=== PATIENT | male | born 1985 | race Two or more races ===

== ENCOUNTER → 2020-01-04 13:58 | Outpatient (BNVA) | payer MEDICARE, MEDICAID, SELFPAY | PROVIDERS: PCP Internal Medicine Geriatric Medicine; Referring Provider Internal Medicine Geriatric Medicine; Visit Provider Nurse Practitioner Gerontology | DX: E10.65 Type 1 diabetes mellitus with hyperglycemia (principal); E10.22 Type 1 diabetes mellitus with diabetic chronic kidney disease; I12.9 Hypertensive chronic kidney disease with stage 1 through stage 4 chronic kidney disease, or unspecified chronic kidney disease; N18.30 Chronic kidney disease, stage 3 unspecified; E10.42 Type 1 diabetes mellitus with diabetic polyneuropathy; E78.5 Hyperlipidemia, unspecified; Z96.41 Presence of insulin pump (external) (internal) | CPT/HCPCS: 99212 ==

== ENCOUNTER → 2020-02-07 13:44 | Outpatient (BNVA) | payer MEDICARE, MEDICAID, SELFPAY | PROVIDERS: PCP Internal Medicine Geriatric Medicine; Referring Provider Internal Medicine Geriatric Medicine; Visit Provider Physician Assistant | DX: Z76.89 Persons encountering health services in other specified circumstances (principal) ==

== ENCOUNTER 2020-02-07 14:54 | Outpatient (REF) | payer MEDICARE, MEDICAID, SELFPAY | END 2020-02-07 14:55 | disposition home or self-care (01) | LOC: HO.LAB 14:54 | PROVIDERS: Visit Provider Internal Medicine | DX: Z20.828 Contact with and (suspected) exposure to other viral communicable diseases (principal) | CPT/HCPCS: C9803; Q3014; U0003 ==

== ENCOUNTER → 2020-02-27 13:10 | Outpatient (BNVA) | payer MEDICARE, MEDICAID, SELFPAY | PROVIDERS: PCP Internal Medicine Geriatric Medicine; Visit Provider Physician Assistant | DX: Z13.89 Encounter for screening for other disorder (principal) | CPT/HCPCS: Q3014 ==

== ENCOUNTER 2020-03-07 11:33 | Inpatient (IN) | payer MEDICARE, MEDICAID, SELFPAY ==
[2020-03-07] VITALS (9 sets, daily range): BP systolic 111–203; BP diastolic 78–119; PULSE 105–129; RESP 12–18; TEMP 36.3–36.9; O2SAT 95–100; BMI 24.3
--- NOTE | 2020-03-07 | ECG_ITS ---
Test Reason : REPEAT Blood Pressure : / mmHG Vent. Rate : 128 BPM Atrial Rate : 128 BPM P-R Int : 138 ms QRS Dur : 078 ms QT Int : 314 ms P-R-T Axes : 064 084 040 degrees QTc Int : 458 ms Sinus tachycardia Otherwise normal ECG When compared with ECG of 26-AUG-2019 12:31, No significant change was found Referred By: Neal Godoy Electronically Signed By:LESLIE GEIGER MD
--- NOTE | 2020-03-07 | ECG_ITS ---
Test Reason : NASUEA Blood Pressure : / mmHG Vent. Rate : 119 BPM Atrial Rate : 119 BPM P-R Int : 128 ms QRS Dur : 076 ms QT Int : 330 ms P-R-T Axes : 077 090 051 degrees QTc Int : 464 ms Sinus tachycardia Rightward axis Borderline ECG When compared to the previous EKG of No significant changes seen Referred By: Neal Godoy Electronically Signed By:LESLIE GEIGER MD
[2020-03-07 11:58] LABS: MANUAL DIFF FLAG NO
[2020-03-07 12:02] LABS: Basophils Percent Auto 0.2 % (0-2); Eosinophils Absolute Auto 0.1 X10*3/uL (0.0-0.4); Eosinophils Percent Auto 0.7 % (0-4); Hematocrit 44.1 % (42-52); Hemoglobin 15.2 g/dl (14.0-18.0); Imm Gran Abs Auto 0.04 X10*3/uL (0.00-0.03); Imm Gran Pct Auto 0.3 % (0.0-0.4); Lymphocytes Absolute Auto 2.6 X10*3/uL (1.2-4.9); Lymphocytes Percent Auto 18.5 % (20-40); Mean Corpuscular HGB Conc 34.5 g/dl (31.0-36.0); Mean Corpuscular Hemoglobin 30.2 pg (27.0-33.0); Mean Corpuscular Volume 87.5 fL (80-98); Mean Platelet Volume 9.8 fL (9.4-12.4); Monocytes Absolute Auto 0.9 X10*3/uL (0.1-1.2); Monocytes Percent Auto 6.4 % (2-11); Neutrophils Absolute Auto 10.2 X10*3/uL (2.0-8.3); Neutrophils Percent Auto 73.9 % (45-73); Platelet Count 346 X10*3/uL (160-400); Red Blood Count 5.04 X10*6/uL (4.60-5.80); Red Cell Distribution Width 11.5 % (11.0-16.0); White Blood Count 13.8 X10*3/uL (4.8-10.8)
[2020-03-07 12:28] LABS: Alanine Aminotransferase 14 U/L (0-40); Albumin Level 3.6 g/dL (3.5-5.0); Alkaline Phosphatase 87 U/L (39-117); Anion Gap 15 (12-20); Aspartate Amino Transferase 13 U/L (5-37); Bilirubin Total 0.7 mg/dL (0.0-1.0); Blood Urea Nitrogen 19 mg/dL (9-16); Calcium 9.1 mg/dL (8.4-10.2); Carbon Dioxide 30 mmol/L (22-29); Chloride 94 mmol/L (96-108); Creatinine Clr Calc Pharmacy 45.1; Estimated Glomerular Filt Rate 34; Glucose Random 202 mg/dL (60-115); Lipase 14 U/L (8-78); Potassium 4.2 mmol/l (3.3-5.1); Sodium 135 mmol/L (135-145); Total Protein 6.4 g/dL (6.5-8.0)
--- NOTE | 2020-03-07 12:33 | CT_ITS ---
EXAMINATION: CT ABDOMEN AND PELVIS WITHOUT CONTRAST CLINICAL INFORMATION: Left lower abdominal pain with nausea and vomiting. COMPARISON: August 25, 2019 TECHNIQUE: Multidetector volumetric imaging was performed from the superior aspect of the liver through the pubic symphysis. Sagittal and coronal reformatted images were obtained on the technologist's workstation. This CT examination was performed using dose optimization techniques as appropriate, variously including the following: *Automated exposure control *Adjustment of mA and/or kV according to patient size (this includes techniques or standardized protocols for targeted exams where dose is matched to indication/reason for exam; i.e. extremities or head) *Use of iterative reconstruction technique DLP: 434 mGy-cm FINDINGS: LUNG BASES: The visualized lung bases are unremarkable. No pleural or pericardial effusion. There is a region of diminished density seen along the falciform ligament consistent with fatty infiltration. No suspicious focal mass identified. No intrahepatic bile duct dilatation. LIVER, GALLBLADDER, AND BILIARY TREE: The liver is normal in size, shape, and attenuation. No focal hepatic lesion or biliary ductal dilatation is present. The gallbladder is unremarkable with no evidence of radiopaque gallstones, gallbladder wall thickening, or obvious pericholecystic inflammatory changes. PANCREAS: Unremarkable. SPLEEN: There is a splenic granuloma present. ADRENAL GLANDS: Unremarkable. KIDNEYS AND URETERS: The kidneys are normal in size, shape, and attenuation. No hydronephrosis, hydroureter, or calculi seen. No perinephric stranding. BLADDER: Unremarkable. GASTROINTESTINAL TRACT: No dilated loops of large or small bowel. No free air or free fluid. Appendix not visualized. No pericolonic inflammatory change. ABDOMINAL WALL: No significant hernia is appreciated. LYMPH NODES: There are some prominent periaortic lymph nodes present largest measuring up to approximately 1 cm in diameter in the region of the left renal vein. There are some prominent mesenteric lymph nodes present as well but not pathologically enlarged. VASCULAR: Unremarkable. PELVIC VISCERA: Unremarkable. OSSEOUS STRUCTURES: No suspicious destructive bony lesions. CT/CT abdomen pelvis wo con IMPRESSION: No significant abnormality appreciated. Some prominent periaortic lymph nodes.
--- NOTE | 2020-03-07 12:41 | ED.ABDPAIN ---
HPI - Abdominal Pain General Chief Complaint: Abdominal Pain <AJITH Strong - Last Filed: 03/07/20 16:03> Stated Complaint: ABD PAIN [id number] <AJITH Strong - Last Filed: 03/07/20 16:03> Time Seen by Provider: 03/07/20 12:11 <AJITH Strong - Last Filed: 03/07/20 16:03> Source: patient <AJITH Strong - Last Filed: 03/07/20 16:03> Mode of arrival: ambulatory <AJITH Strong - Last Filed: 03/07/20 16:03> History of Present Illness HPI narrative: 34-year-old male with a past medical history of GERD, diabetes, CKD, polyneuropathy, HTN, HLD, presenting to the ED complaining of left lower quadrant abdominal pain x1 week with associated nausea and vomiting. Admits to similar symptoms in the past with colitis. Denies fever, chills, diarrhea, constipation, dysuria/hematuria, testicular pain/penile discharge <AJITH Strong Last Filed: 03/07/20 16:03> MD elicited complaint: abdominal pain <AJITH Strong Last Filed: 03/07/20 16:03> Related Data Home Medications: Home Medications Medication Instructions Recorded Confirmed gabapentin 600 mg tablet 600 mg PO TID 01/04/20 03/07/20 insulin pump cartridge #5 ea 01/04/20 02/27/20 losartan 50 mg tablet 50 mg PO DAILY 01/04/20 03/07/20 nortriptyline 50 mg capsule 50 mg PO BEDTIME 01/04/20 03/07/20 omeprazole 40 mg capsule,delayed 40 mg PO DAILY 01/04/20 03/07/20 release tramadol 50 mg tablet 50 mg PO DAILY PRN 01/04/20 03/07/20 trazodone 1 tab PO BEDTIME PRN 03/07/20 03/07/20 Previous Rx's Medication Instructions Recorded insulin lispro 100 unit/mL See Rx Instructions SUBCUT 12/11/19 subcutaneous solution .COMPLEX 30 Days #20 ml atorvastatin 80 mg tablet 80 mg PO DAILY #30 tab 01/04/20 sucralfate 1 gram tablet 1 g PO QID 30 Days #120 tab 02/08/20 amlodipine 5 mg PO DAILY #30 tab 03/12/20 cefuroxime axetil 500 mg PO Q12H #6 tab 03/12/20 metronidazole [Flagyl] 500 mg PO Q12H #6 tab 03/12/20 bisacodyl 5 mg tablet,delayed 10 mg PO ONCE 1 Days #2 tab 03/14/20 release polyethylene glycol 3350 17 238 g PO ONCE 1 Days #238 g 03/14/20 gram/dose oral powder <AJITH Strong - Last Filed: 03/07/20 16:03> Allergies/Adverse Reactions: Allergies Allergy/AdvReac Type Severity Reaction Status Date / Time No Known Allergies Allergy Unverified 01/04/20 14:52 [No Known Allergies*] <AJITH Strong - Last Filed: 03/07/20 16:03> Review of Systems Review of Systems Constitutional: No Weight loss, No Fever, No Chills Cardiovascular: No Chest Pain, No SOB Respiratory: No Cough, No Sputum Gastrointestinal: + Nausea, + Vomiting, No Diarrhea, No Constipation, + Abdominal pain Genitourinary: No irregular bleeding, No Dysuria, No Urinary Frequency, No Hematuria, No Flank Pain, No Urinary Flow Changes, No Hesitancy Musculoskeletal: No joint pain, No Myalgias, No Joint Swelling Skin: No Skin Lesions, No rash <AJITH Strong Last Filed: 03/07/20 16:03> Yes all other systems are reviewed and are negative <AJITH Strong - Last Filed: 03/07/20 16:03> Physical Exam Vital Signs: Vital Signs: Last Vital Signs Temp 98.0 F 03/12/20 11:27 Pulse 111 H 03/12/20 11:27 Resp 18 03/12/20 11:27 BP 166/90 H 03/12/20 11:27 Pulse Ox 98 03/12/20 11:27 Body Mass Index 24.3 <AJITH Strong - Last Filed: 03/07/20 16:03> Vital Signs: Last Vital Signs Temp 98.0 F 03/12/20 11:27 Pulse 111 H 03/12/20 11:27 Resp 18 03/12/20 11:27 BP 166/90 H 03/12/20 11:27 Pulse Ox 98 03/12/20 11:27 Body Mass Index 24.3 <Reji Bae MD - Last Filed: 03/16/20 00:03> Const: General: cooperative <AJITH Strong - Last Filed: 03/07/20 16:03> Orientation/consciousness: patient oriented x3 <AJITH Strong - Last Filed: 03/07/20 16:03> Limitations: no limitations <AJITH Strong - Last Filed: 03/07/20 16:03> HENMT: Head: Yes normal to inspection <Brigitte Kulkarni PA - Last Filed: 03/07/20 16:03> Ears: hearing grossly normal bilaterally <Brigitte Kulkarni PA - Last Filed: 03/07/20 16:03> General nose exam: Normal external nose present <AJITH Strong - Last Filed: 03/07/20 16:03> Face and sinus: Yes normal facial exam <Brigitte Kulkarni PA - Last Filed: 03/07/20 16:03> Eyes: General: appearance normal, both eyes and all related structures <Brigitte Kulkarni PA - Last Filed: 03/07/20 16:03> EOM: EOMs intact bilaterally <Brigitte Kulkarni PA - Last Filed: 03/07/20 16:03> Neck: Neck: Yes normal visual inspection <AJITH Strong - Last Filed: 03/07/20 16:03> Resp: Effort & Inspection: normal respiratory effort <Brigitte Kulkarni PA - Last Filed: 03/07/20 16:03> Cardio: Rate: regular rate <Brigitte Kulkarni PA - Last Filed: 03/07/20 16:03> GI: Inspection: Yes normal to inspection <AJITH Strong - Last Filed: 03/07/20 16:03> Palpation (GI): Soft to palpation, Tenderness to palpation present (GI) in the epigastrum and in the LLQ; with no rebound tenderness, no guarding and not rigid <AJITH Strong - Last Filed: 03/07/20 16:03> : General: Yes no CVA tenderness <Brigitte Kulkarni PA - Last Filed: 03/07/20 16:03> Back/Spine/Pelvis: Back: no CVA tenderness <AJITH Strong - Last Filed: 03/07/20 16:03> Skin: Rashes: no rashes <AJITH Strong Last Filed: 03/07/20 16:03> Wounds: no wounds <AJITH Strong - Last Filed: 03/07/20 16:03> Neuro: General: patient oriented x3 <AJITH Strong - Last Filed: 03/07/20 16:03> Gait exam (Neuro): Normal gait present <AJITH Strong Last Filed: 03/07/20 16:03> Extrem: General: Yes normal to inspection <AJITH Strong - Last Filed: 03/07/20 16:03> Course Course Course Narrative: Leukocytosis of 13.8, worsening of acute on chronic CKD > likely element of dehydration however lactic/blood cultures and empiric IV Zosyn ordered, POC to 202/no anion gap > unlikely DKA Lactic acid negative, UA with ketones/not infected, tox screen positive for THC, CT without significant abnormality appreciated 1530- on re-evaluation patient complaining of persistent pain. Likely cyclical vomiting/dehydration > will admit for further management <AJITH Strong Last Filed: 03/07/20 16:03> I have reviewed the chart <Reji Bae MD - Last Filed: 03/16/20 00:03> MDM - Abdominal Pain MDM Narrative Medical decision making narrative: 34-year-old male with a past medical history of GERD, diabetes, CKD, polyneuropathy, HTN, HLD, presenting to the ED complaining of left lower quadrant abdominal pain x1 week with associated nausea and vomiting. On exam tachycardic, appears in pain, abdomen soft with epigastric/LLQ TTP, no rebound or guarding or CVAT. Concern for diverticulitis/colitis vs ? Pancreatitis vs GERD. Lower concern for appendicitis/cholecystitis Low concern for severe sepsis at this time, tachycardia likely from pain Plan: Labs, UA, IVF, CT AP, re-evaluate <AJITH Strong Last Filed: 03/07/20 16:03> Lab Data Result diagrams: : 03/12/20 04:03 03/12/20 04:03 <AJITH Strong - Last Filed: 03/07/20 16:03> Labs: Lab Results 03/07/20 03/07/20 03/07/20 Range/Units 11:52 11:52 11:52 WBC 13.8 H (4.8-10.8) X10*3/uL RBC 5.04 (4.60-5.80) X10*6/uL Hgb 15.2 (14.0-18.0) g/dl Hct 44.1 (42-52) % MCV 87.5 (80-98) fL MCH 30.2 (27.0-33.0) pg MCHC 34.5 (31.0-36.0) g/dl RDW 11.5 (11.0-16.0) % Plt Count 346 (160-400) X10*3/uL MPV 9.8 (9.4-12.4) fL Immature Gran % (Auto) 0.3 (0.0-0.4) % Neut % (Auto) 73.9 H (45-73) % Lymph % (Auto) 18.5 L (20-40) % [place] % (Auto) 6.4 (2-11) % Eos % (Auto) 0.7 (0-4) % Baso % (Auto) 0.2 (0-2) % Lymph # (Auto) 2.6 (1.2-4.9) X10*3/uL [place] # (Auto) 0.9 (0.1-1.2) X10*3/uL Eos # (Auto) 0.1 (0.0-0.4) X10*3/uL Baso # (Auto) 0.0 (0.0-0.2) X10*3/uL Abs Immat Gran (auto) 0.04 H (0.00-0.03) X10*3/uL Absolute Neuts (auto) 10.2 H (2.0-8.3) X10*3/uL Absolute Nucleated RBC 0.000 (0.0-0.012) X10*3/uL Nucleated RBC % (auto) 0.0 (0.0-0.2) /100WBC Hold Blue Top SEE NOTE Sodium 135 (135-145) mmol/L Potassium 4.2 (3.3-5.1) mmol/l Chloride 94 L (96-108) mmol/L Carbon Dioxide 30 H (22-29) mmol/L Anion Gap 15 (12-20) BUN 19 H (9-16) mg/dL Creatinine 2.21 H (0.5-1.4) mg/dL Estim Creat Clear Calc 45.1 Estimated GFR 34 Random Glucose 202 H (60-115) mg/dL Lactic Acid (0.5-2.0) mmol/L Calcium 9.1 (8.4-10.2) mg/dL Magnesium 1.8 (1.6-2.6) mg/dL Total Bilirubin 0.7 (0.0-1.0) mg/dL Direct Bilirubin 0.3 (0.0-0.5) mg/dL AST 13 (5-37) U/L ALT 14 (0-40) U/L Alkaline Phosphatase 87 (39-117) U/L Total Protein 6.4 L (6.5-8.0) g/dL Albumin 3.6 (3.5-5.0) g/dL Lipase 14 (8-78) U/L Urine Color Urine Appearance Urine pH (5.0-8.0) Ur Specific [place] (1.005-1.025) Urine Protein (NEG-TRACE) MG/DL Urine Glucose (UA) (NEG) MG/DL Urine Ketones (NEG) MG/DL Urine Blood (NEG) Urine Nitrite (NEG) Ur Leukocyte Esterase (NEG) Urine RBC (0) /HPF Urine WBC (0-4) /HPF Ur Squamous Epith Cells /LPF Urine Bacteria /LPF Urine Mucus /LPF Urine Opiates Screen (Not Detect) Ur Barbiturates Screen (Not Detect) Ur Phencyclidine Scrn (Not Detect) Ur Amphetamines Screen (Not Detect) U Benzodiazepines Scrn (Not Detect) Urine Cocaine Screen (Not Detect) U Marijuana (THC) Screen (Not Detect) COVID-19 (SABINE) (Negative) COVID-19 Clin Com 03/07/20 03/07/20 03/07/20 Range/Units 13:49 13:50 14:41 WBC (4.8-10.8) X10*3/uL RBC (4.60-5.80) X10*6/uL Hgb (14.0-18.0) g/dl Hct (42-52) % MCV (80-98) fL MCH (27.0-33.0) pg MCHC (31.0-36.0) g/dl RDW (11.0-16.0) % Plt Count (160-400) X10*3/uL MPV (9.4-12.4) fL Immature Gran % (Auto) (0.0-0.4) % Neut % (Auto) (45-73) % Lymph % (Auto) (20-40) % [place] % (Auto) (2-11) % Eos % (Auto) (0-4) % Baso % (Auto) (0-2) % Lymph # (Auto) (1.2-4.9) X10*3/uL [place] # (Auto) (0.1-1.2) X10*3/uL Eos # (Auto) (0.0-0.4) X10*3/uL Baso # (Auto) (0.0-0.2) X10*3/uL Abs Immat Gran (auto) (0.00-0.03) X10*3/uL Absolute Neuts (auto) (2.0-8.3) X10*3/uL Absolute Nucleated RBC (0.0-0.012) X10*3/uL Nucleated RBC % (auto) (0.0-0.2) /100WBC Hold Blue Top Sodium (135-145) mmol/L Potassium (3.3-5.1) mmol/l Chloride (96-108) mmol/L Carbon Dioxide (22-29) mmol/L Anion Gap (12-20) BUN (9-16) mg/dL Creatinine (0.5-1.4) mg/dL Estim Creat Clear Calc Estimated GFR Random Glucose (60-115) mg/dL Lactic Acid 1.0 (0.5-2.0) mmol/L Calcium (8.4-10.2) mg/dL Magnesium (1.6-2.6) mg/dL Total Bilirubin (0.0-1.0) mg/dL Direct Bilirubin (0.0-0.5) mg/dL AST (5-37) U/L ALT (0-40) U/L Alkaline Phosphatase (39-117) U/L Total Protein (6.5-8.0) g/dL Albumin (3.5-5.0) g/dL Lipase (8-78) U/L Urine Color YELLOW Urine Appearance HAZY Urine pH 8.5 H (5.0-8.0) Ur Specific [place] 1.020 (1.005-1.025) Urine Protein 2+ H (NEG-TRACE) MG/DL Urine Glucose (UA) 100 H (NEG) MG/DL Urine Ketones 15 (NEG) MG/DL Urine Blood NEG (NEG) Urine Nitrite NEG (NEG) Ur Leukocyte Esterase NEG (NEG) Urine RBC 1-4 (0) /HPF Urine WBC 1-4 (0-4) /HPF Ur Squamous Epith Cells TRACE /LPF Urine Bacteria NONE /LPF Urine Mucus TRACE /LPF Urine Opiates Screen (Not Detect) Ur Barbiturates Screen (Not Detect) Ur Phencyclidine Scrn (Not Detect) Ur Amphetamines Screen (Not Detect) U Benzodiazepines Scrn (Not Detect) Urine Cocaine Screen (Not Detect) U Marijuana (THC) Screen (Not Detect) COVID-19 (SABINE) Negative (Negative) COVID-19 Clin Com See Note 03/07/20 Range/Units 14:41 WBC (4.8-10.8) X10*3/uL RBC (4.60-5.80) X10*6/uL Hgb (14.0-18.0) g/dl Hct (42-52) % MCV (80-98) fL MCH (27.0-33.0) pg MCHC (31.0-36.0) g/dl RDW (11.0-16.0) % Plt Count (160-400) X10*3/uL MPV (9.4-12.4) fL Immature Gran % (Auto) (0.0-0.4) % Neut % (Auto) (45-73) % Lymph % (Auto) (20-40) % [place] % (Auto) (2-11) % Eos % (Auto) (0-4) % Baso % (Auto) (0-2) % Lymph # (Auto) (1.2-4.9) X10*3/uL [place] # (Auto) (0.1-1.2) X10*3/uL Eos # (Auto) (0.0-0.4) X10*3/uL Baso # (Auto) (0.0-0.2) X10*3/uL Abs Immat Gran (auto) (0.00-0.03) X10*3/uL Absolute Neuts (auto) (2.0-8.3) X10*3/uL Absolute Nucleated RBC (0.0-0.012) X10*3/uL Nucleated RBC % (auto) (0.0-0.2) /100WBC Hold Blue Top Sodium (135-145) mmol/L Potassium (3.3-5.1) mmol/l Chloride (96-108) mmol/L Carbon Dioxide (22-29) mmol/L Anion Gap (12-20) BUN (9-16) mg/dL Creatinine (0.5-1.4) mg/dL Estim Creat Clear Calc Estimated GFR Random Glucose (60-115) mg/dL Lactic Acid (0.5-2.0) mmol/L Calcium (8.4-10.2) mg/dL Magnesium (1.6-2.6) mg/dL Total Bilirubin (0.0-1.0) mg/dL Direct Bilirubin (0.0-0.5) mg/dL AST (5-37) U/L ALT (0-40) U/L Alkaline Phosphatase (39-117) U/L Total Protein (6.5-8.0) g/dL Albumin (3.5-5.0) g/dL Lipase (8-78) U/L Urine Color Urine Appearance Urine pH (5.0-8.0) Ur Specific [place] (1.005-1.025) Urine Protein (NEG-TRACE) MG/DL Urine Glucose (UA) (NEG) MG/DL Urine Ketones (NEG) MG/DL Urine Blood (NEG) Urine Nitrite (NEG) Ur Leukocyte Esterase (NEG) Urine RBC (0) /HPF Urine WBC (0-4) /HPF Ur Squamous Epith Cells /LPF Urine Bacteria /LPF Urine Mucus /LPF Urine Opiates Screen Not Detected (Not Detect) Ur Barbiturates Screen Not Detected (Not Detect) Ur Phencyclidine Scrn Not Detected (Not Detect) Ur Amphetamines Screen Not Detected (Not Detect) U Benzodiazepines Scrn Not Detected (Not Detect) Urine Cocaine Screen Not Detected (Not Detect) U Marijuana (THC) Screen POSITIVE H (Not Detect) COVID-19 (SABINE) (Negative) COVID-19 Clin Com <AJITH Strong - Last Filed: 03/07/20 16:03> Lab Results 03/07/20 03/07/20 03/07/20 Range/Units 11:52 11:52 11:52 WBC 13.8 H (4.8-10.8) X10*3/uL RBC 5.04 (4.60-5.80) X10*6/uL Hgb 15.2 (14.0-18.0) g/dl Hct 44.1 (42-52) % MCV 87.5 (80-98) fL MCH 30.2 (27.0-33.0) pg MCHC 34.5 (31.0-36.0) g/dl RDW 11.5 (11.0-16.0) % Plt Count 346 (160-400) X10*3/uL MPV 9.8 (9.4-12.4) fL Immature Gran % (Auto) 0.3 (0.0-0.4) % Neut % (Auto) 73.9 H (45-73) % Lymph % (Auto) 18.5 L (20-40) % [place] % (Auto) 6.4 (2-11) % Eos % (Auto) 0.7 (0-4) % Baso % (Auto) 0.2 (0-2) % Lymph # (Auto) 2.6 (1.2-4.9) X10*3/uL [place] # (Auto) 0.9 (0.1-1.2) X10*3/uL Eos # (Auto) 0.1 (0.0-0.4) X10*3/uL Baso # (Auto) 0.0 (0.0-0.2) X10*3/uL Abs Immat Gran (auto) 0.04 H (0.00-0.03) X10*3/uL Absolute Neuts (auto) 10.2 H (2.0-8.3) X10*3/uL Absolute Nucleated RBC 0.000 (0.0-0.012) X10*3/uL Nucleated RBC % (auto) 0.0 (0.0-0.2) /100WBC Hold Blue Top SEE NOTE Sodium 135 (135-145) mmol/L Potassium 4.2 (3.3-5.1) mmol/l Chloride 94 L (96-108) mmol/L Carbon Dioxide 30 H (22-29) mmol/L Anion Gap 15 (12-20) BUN 19 H (9-16) mg/dL Creatinine 2.21 H (0.5-1.4) mg/dL Estim Creat Clear Calc 45.1 Estimated GFR 34 Random Glucose 202 H (60-115) mg/dL Lactic Acid (0.5-2.0) mmol/L Calcium 9.1 (8.4-10.2) mg/dL Magnesium 1.8 (1.6-2.6) mg/dL Total Bilirubin 0.7 (0.0-1.0) mg/dL Direct Bilirubin 0.3 (0.0-0.5) mg/dL AST 13 (5-37) U/L ALT 14 (0-40) U/L Alkaline Phosphatase 87 (39-117) U/L Total Protein 6.4 L (6.5-8.0) g/dL Albumin 3.6 (3.5-5.0) g/dL Lipase 14 (8-78) U/L Urine Color Urine Appearance Urine pH (5.0-8.0) Ur Specific [place] (1.005-1.025) Urine Protein (NEG-TRACE) MG/DL Urine Glucose (UA) (NEG) MG/DL Urine Ketones (NEG) MG/DL Urine Blood (NEG) Urine Nitrite (NEG) Ur Leukocyte Esterase (NEG) Urine RBC (0) /HPF Urine WBC (0-4) /HPF Ur Squamous Epith Cells /LPF Urine Bacteria /LPF Urine Mucus /LPF Urine Opiates Screen (Not Detect) Ur Barbiturates Screen (Not Detect) Ur Phencyclidine Scrn (Not Detect) Ur Amphetamines Screen (Not Detect) U Benzodiazepines Scrn (Not Detect) Urine Cocaine Screen (Not Detect) U Marijuana (THC) Screen (Not Detect) COVID-19 (SABINE) (Negative) COVID-19 Clin Com 03/07/20 03/07/20 03/07/20 Range/Units 13:49 13:50 14:41 WBC (4.8-10.8) X10*3/uL RBC (4.60-5.80) X10*6/uL Hgb (14.0-18.0) g/dl Hct (42-52) % MCV (80-98) fL MCH (27.0-33.0) pg MCHC (31.0-36.0) g/dl RDW (11.0-16.0) % Plt Count (160-400) X10*3/uL MPV (9.4-12.4) fL Immature Gran % (Auto) (0.0-0.4) % Neut % (Auto) (45-73) % Lymph % (Auto) (20-40) % [place] % (Auto) (2-11) % Eos % (Auto) (0-4) % Baso % (Auto) (0-2) % Lymph # (Auto) (1.2-4.9) X10*3/uL [place] # (Auto) (0.1-1.2) X10*3/uL Eos # (Auto) (0.0-0.4) X10*3/uL Baso # (Auto) (0.0-0.2) X10*3/uL Abs Immat Gran (auto) (0.00-0.03) X10*3/uL Absolute Neuts (auto) (2.0-8.3) X10*3/uL Absolute Nucleated RBC (0.0-0.012) X10*3/uL Nucleated RBC % (auto) (0.0-0.2) /100WBC Hold Blue Top Sodium (135-145) mmol/L Potassium (3.3-5.1) mmol/l Chloride (96-108) mmol/L Carbon Dioxide (22-29) mmol/L Anion Gap (12-20) BUN (9-16) mg/dL Creatinine (0.5-1.4) mg/dL Estim Creat Clear Calc Estimated GFR Random Glucose (60-115) mg/dL Lactic Acid 1.0 (0.5-2.0) mmol/L Calcium (8.4-10.2) mg/dL Magnesium (1.6-2.6) mg/dL Total Bilirubin (0.0-1.0) mg/dL Direct Bilirubin (0.0-0.5) mg/dL AST (5-37) U/L ALT (0-40) U/L Alkaline Phosphatase (39-117) U/L Total Protein (6.5-8.0) g/dL Albumin (3.5-5.0) g/dL Lipase (8-78) U/L Urine Color YELLOW Urine Appearance HAZY Urine pH 8.5 H (5.0-8.0) Ur Specific [place] 1.020 (1.005-1.025) Urine Protein 2+ H (NEG-TRACE) MG/DL Urine Glucose (UA) 100 H (NEG) MG/DL Urine Ketones 15 (NEG) MG/DL Urine Blood NEG (NEG) Urine Nitrite NEG (NEG) Ur Leukocyte Esterase NEG (NEG) Urine RBC 1-4 (0) /HPF Urine WBC 1-4 (0-4) /HPF Ur Squamous Epith Cells TRACE /LPF Urine Bacteria NONE /LPF Urine Mucus TRACE /LPF Urine Opiates Screen (Not Detect) Ur Barbiturates Screen (Not Detect) Ur Phencyclidine Scrn (Not Detect) Ur Amphetamines Screen (Not Detect) U Benzodiazepines Scrn (Not Detect) Urine Cocaine Screen (Not Detect) U Marijuana (THC) Screen (Not Detect) COVID-19 (SABINE) Negative (Negative) COVID-19 Clin Com See Note 03/07/20 Range/Units 14:41 WBC (4.8-10.8) X10*3/uL RBC (4.60-5.80) X10*6/uL Hgb (14.0-18.0) g/dl Hct (42-52) % MCV (80-98) fL MCH (27.0-33.0) pg MCHC (31.0-36.0) g/dl RDW (11.0-16.0) % Plt Count (160-400) X10*3/uL MPV (9.4-12.4) fL Immature Gran % (Auto) (0.0-0.4) % Neut % (Auto) (45-73) % Lymph % (Auto) (20-40) % [place] % (Auto) (2-11) % Eos % (Auto) (0-4) % Baso % (Auto) (0-2) % Lymph # (Auto) (1.2-4.9) X10*3/uL [place] # (Auto) (0.1-1.2) X10*3/uL Eos # (Auto) (0.0-0.4) X10*3/uL Baso # (Auto) (0.0-0.2) X10*3/uL Abs Immat Gran (auto) (0.00-0.03) X10*3/uL Absolute Neuts (auto) (2.0-8.3) X10*3/uL Absolute Nucleated RBC (0.0-0.012) X10*3/uL Nucleated RBC % (auto) (0.0-0.2) /100WBC Hold Blue Top Sodium (135-145) mmol/L Potassium (3.3-5.1) mmol/l Chloride (96-108) mmol/L Carbon Dioxide (22-29) mmol/L Anion Gap (12-20) BUN (9-16) mg/dL Creatinine (0.5-1.4) mg/dL Estim Creat Clear Calc Estimated GFR Random Glucose (60-115) mg/dL Lactic Acid (0.5-2.0) mmol/L Calcium (8.4-10.2) mg/dL Magnesium (1.6-2.6) mg/dL Total Bilirubin (0.0-1.0) mg/dL Direct Bilirubin (0.0-0.5) mg/dL AST (5-37) U/L ALT (0-40) U/L Alkaline Phosphatase (39-117) U/L Total Protein (6.5-8.0) g/dL Albumin (3.5-5.0) g/dL Lipase (8-78) U/L Urine Color Urine Appearance Urine pH (5.0-8.0) Ur Specific [place] (1.005-1.025) Urine Protein (NEG-TRACE) MG/DL Urine Glucose (UA) (NEG) MG/DL Urine Ketones (NEG) MG/DL Urine Blood (NEG) Urine Nitrite (NEG) Ur Leukocyte Esterase (NEG) Urine RBC (0) /HPF Urine WBC (0-4) /HPF Ur Squamous Epith Cells /LPF Urine Bacteria /LPF Urine Mucus /LPF Urine Opiates Screen Not Detected (Not Detect) Ur Barbiturates Screen Not Detected (Not Detect) Ur Phencyclidine Scrn Not Detected (Not Detect) Ur Amphetamines Screen Not Detected (Not Detect) U Benzodiazepines Scrn Not Detected (Not Detect) Urine Cocaine Screen Not Detected (Not Detect) U Marijuana (THC) Screen POSITIVE H (Not Detect) COVID-19 (SABINE) (Negative) COVID-19 Clin Com <Reji Bae MD - Last Filed: 03/16/20 00:03> Discharge Plan Discharge Clinical Impression: KAYODE (acute kidney injury) Abdominal pain Qualifiers: Abdominal location: left lower quadrant Qualified Code(s): R10.32 - Left lower quadrant pain Nausea & vomiting Qualifiers: Vomiting type: unspecified Vomiting Intractability: non-intractable Qualified Code(s): R11.2 - Nausea with vomiting, unspecified <AJIHT Strong - Last Filed: 03/07/20 16:03> Patient Disposition: Admitted As Inpatient <AJITH Strong - Last Filed: 03/07/20 16:03> Interventions: Admission Worksheet (ED) Last Done: 03/07/20 23:34 <AJITH Strong - Last Filed: 03/07/20 16:03> Discharge Date/Time: 03/08/20 00:13 <AJITH Strong - Last Filed: 03/07/20 16:03> [facility] Past Medical History Attestation statement: The following information was validated with the patient. <AJITH Strong - Last Filed: 03/07/20 16:03> Medical History: Medical History Acid reflux Chronic kidney disease, stage 3 Diabetic polyneuropathy associated with type 1 diabetes mellitus Diabetic visual loss, with retinopathy, associated with type 1 diabetes mellitus Essential hypertension Gastritis Hyperlipidemia LDL goal <70 Polyneuropathy Sciatica Type 1 diabetes mellitus with diabetic chronic kidney disease Type 1 diabetes mellitus with hyperglycemia <AJITH Strong - Last Filed: 03/07/20 16:03> Surgical History: Surgical History Hx of appendectomy Hx of circumcision Hx of eye surgery <AJITH Strong - Last Filed: 03/07/20 16:03> Family History Family History: Family History Father Diabetes mellitus Mother Diabetes mellitus Maternal Grandfather Diabetes mellitus Maternal Grandmother Diabetes mellitus <AJITH Strong - Last Filed: 03/07/20 16:03> Social History Social History: Social History Household Members: Family and Children Housing: House Alcohol intake: never Smoking Status: Never smoker Smoked in Last 30 Days: No Use of substances other than those prescribed or required for medical reasons: Yes Substance Use Type: Marijuana Substance Use Frequency: Occasionally Currently Displaying Signs/Symptoms of Drug Intoxication Withdrawal: No Have you been hit, kicked, punched, or otherwise hurt by someone within the past year? If so, by whom?: No Do you feel safe in your current relationship?: Yes Is there a partner from a previous relationship who is making you feel unsafe now?: No Are you made to feel afraid or neglected: No Advance Directives: No Advance Directives Information Provided: Yes Do you have thoughts of harming others: None Do you have a plan to hurt others: No Plan Recently lost weight without trying: No service: No Current occupational status: disabled <AJITH Strong - Last Filed: 03/07/20 16:03>
[2020-03-07 12:59] LABS: Bilirubin Direct 0.3 mg/dL (0.0-0.5); Magnesium 1.8 mg/dL (1.6-2.6)
[2020-03-07] MEDS: Piperacillin Sodium/Tazobactam 3.375 GM in 0.9 % Sodium Chloride 50 ML IV (14:04)
[2020-03-07] MEDS: 0.9 % Sodium Chloride 1,000 ML 999 ML IVCONT ×2 (14:04→14:05)
[2020-03-07] MEDS: Metoclopramide HCl 10 MG/2 ML VIAL IVPUSH (14:05)
[2020-03-07] MEDS: Ketorolac Tromethamine 15 MG/ML VIAL IVPUSH ×2 (14:05→16:14)
[2020-03-07 14:18] LABS: COVID-19 Test Negative (Negative)
[2020-03-07] MEDS: diphenhydrAMINE HCL 50 MG/ML VIAL 25 MG IVPUSH (14:26)
[2020-03-07 14:49] LABS: Glucose Urine UA 100 MG/DL (NEG); Leukocyte Esterase Urine NEG (NEG); Nitrite Urine NEG (NEG); PH 8.5 (5.0-8.0); Urine Blood NEG (NEG); Urine Ketones 15 MG/DL (NEG)
[2020-03-07 14:53] LABS: Appearance Urine HAZY; Color Urine YELLOW; Urine Protein 2+ MG/DL (NEG-TRACE)
[2020-03-07 15:03] LABS: Squamous Epithelial Cell Urine TRACE /LPF
[2020-03-07 15:04] LABS: Mucus Urine TRACE /LPF
[2020-03-07 15:16] LABS: Amphetamine Screen Urine Not Detected (Not Detect); Barbiturates, Urine Not Detected (Not Detect); Benzodiazepines Screen Urine Not Detected (Not Detect); Cannabinoid Screen Urine POSITIVE (Not Detect); Cocaine Screen Urine Not Detected (Not Detect); Opiate Screen Urine Not Detected (Not Detect); Phencyclidine Screen Urine Not Detected (Not Detect)
--- NOTE | 2020-03-07 16:55 | P.HPHOSP_ITS ---
History of Present Illness Date of Service: 03/07/20 Chief Complaint: Abdominal pain and nausea A 34 years old male with PMH of diabetes type 1 on insulin pump, CKD stage 3, legally blind, depression among others who presented to the hospital complaining of left lower quadrant pain associated with nausea. The patient reports that almost over the last 2 weeks since he was in [place] he started feeling abdominal pain the lower side of his abdomen which can get up to 10/10 in intensity, pressure-like and not associated with mealtime. He reports nausea but no vomiting. He denies any change in his bowel habit. Reporting chills but no fever, no chest pain, no shortness of breath. He reports decreased oral intake over the last 2 weeks. In the emergency a CT scan without contrast for the abdomen did not show any acute findings. Reporting lymph node enlargements and para-aortic area. He was noted to have worsening kidney function. Admitted for further evaluation and treatment. Review of Systems Review of Systems: No fever, but reporting chills and generalized weakness No chest pain, palpitation No shortness of breath or coughing Left lower quadrant abdominal pain, associated with nausea but no vomiting No urinary symptoms No any rash or wounds PMFSH Medical History Acid reflux Chronic kidney disease, stage 3 Diabetic polyneuropathy associated with type 1 diabetes mellitus Diabetic visual loss, with retinopathy, associated with type 1 diabetes mellitus Essential hypertension Gastritis Hyperlipidemia LDL goal <70 Polyneuropathy Sciatica Type 1 diabetes mellitus with diabetic chronic kidney disease Type 1 diabetes mellitus with hyperglycemia Family History Father Diabetes mellitus Mother Diabetes mellitus Maternal Grandfather Diabetes mellitus Maternal Grandmother Diabetes mellitus Surgical History Hx of appendectomy Hx of circumcision Hx of eye surgery Social History Household Members: Children Alcohol intake: never Smoking Status: Former smoker Smoked in Last 30 Days: No Use of substances other than those prescribed or required for medical reasons: No Substance Use Type: Marijuana Advance Directives: No Advance Directives Information Provided: Yes Current occupational status: employed and disabled Meds Allergies Allergy/AdvReac Type Severity Reaction Status Date / Time No Known Allergies Allergy Unverified 01/04/20 14:52 [No Known Allergies*] Home Medications Medication Instructions Recorded Confirmed Type gabapentin 600 mg tablet 600 mg PO TID 01/04/20 03/07/20 History insulin pump cartridge #5 ea 01/04/20 02/27/20 History losartan 50 mg tablet 50 mg PO DAILY 01/04/20 03/07/20 History nortriptyline 50 mg capsule 50 mg PO BEDTIME 01/04/20 03/07/20 History omeprazole 40 mg capsule,delayed 40 mg PO DAILY 01/04/20 03/07/20 History release tramadol 50 mg tablet 50 mg PO DAILY PRN 01/04/20 03/07/20 History trazodone 1 tab PO BEDTIME PRN 03/07/20 03/07/20 History Physical Exam Vital Signs and Narrative: Vital Signs: Last Vital Signs Temp 97.4 F 03/07/20 14:00 Pulse 122 H 03/07/20 16:17 Resp 16 03/07/20 16:17 BP 153/100 H 03/07/20 15:30 Pulse Ox 99 03/07/20 16:17 Body Mass Index 24.3 Constitutional : Alert, oriented, not in distress, legally blind Neck : Normal inspection, Supple Cardiovascular : RRR, S1 S2, no lower extremity edema Respiratory : Good bilateral air entry, no crackles, wheezes or rhonchi Gastrointestinal: soft, lax, Normal bowel sounds, left lower quadrant tenderness with deep palpation Skin : Warm/Dry, No rash Neurological : Alert & oriented x3, No focal deficit Results Labs CBC and Chem 7: 03/07/20 11:52 03/07/20 11:52 Labs: Laboratory Results - last 24 hr 03/07/20 03/07/20 03/07/20 11:52 11:52 11:52 MCV 87.5 MCH 30.2 MCHC 34.5 RDW 11.5 Plt Count 346 MPV 9.8 Immature Gran % (Auto) 0.3 Neut % (Auto) 73.9 H Lymph % (Auto) 18.5 L Desha % (Auto) 6.4 Eos % (Auto) 0.7 Baso % (Auto) 0.2 Lymph # (Auto) 2.6 Desha # (Auto) 0.9 Eos # (Auto) 0.1 Baso # (Auto) 0.0 Abs Immat Gran (auto) 0.04 H Absolute Neuts (auto) 10.2 H Absolute Nucleated RBC 0.000 Nucleated RBC % (auto) 0.0 Hold Blue Top SEE NOTE Anion Gap 15 Estim Creat Clear Calc 45.1 Estimated GFR 34 Random Glucose 202 H Lactic Acid Calcium 9.1 Magnesium 1.8 Total Bilirubin 0.7 Direct Bilirubin 0.3 AST 13 ALT 14 Alkaline Phosphatase 87 Total Protein 6.4 L Albumin 3.6 Lipase 14 Urine Color Urine Appearance Urine pH Ur Specific [place] Urine Protein Urine Glucose (UA) Urine Ketones Urine Blood Urine Nitrite Ur Leukocyte Esterase Urine RBC Urine WBC Ur Squamous Epith Cells Urine Bacteria Urine Mucus Urine Opiates Screen Ur Barbiturates Screen Ur Phencyclidine Scrn Ur Amphetamines Screen U Benzodiazepines Scrn Urine Cocaine Screen U Marijuana (THC) Screen COVID-19 (SABINE) COVID-SVAS Biosana Com 03/07/20 03/07/20 03/07/20 13:49 13:50 14:41 MCV MCH MCHC RDW Plt Count MPV Immature Gran % (Auto) Neut % (Auto) Lymph % (Auto) Desha % (Auto) Eos % (Auto) Baso % (Auto) Lymph # (Auto) Desha # (Auto) Eos # (Auto) Baso # (Auto) Abs Immat Gran (auto) Absolute Neuts (auto) Absolute Nucleated RBC Nucleated RBC % (auto) Hold Blue Top Anion Gap Estim Creat Clear Calc Estimated GFR Random Glucose Lactic Acid 1.0 Calcium Magnesium Total Bilirubin Direct Bilirubin AST ALT Alkaline Phosphatase Total Protein Albumin Lipase Urine Color YELLOW Urine Appearance HAZY Urine pH 8.5 H Ur Specific [place] 1.020 Urine Protein 2+ H Urine Glucose (UA) 100 H Urine Ketones 15 Urine Blood NEG Urine Nitrite NEG Ur Leukocyte Esterase NEG Urine RBC 1-4 Urine WBC 1-4 Ur Squamous Epith Cells TRACE Urine Bacteria NONE Urine Mucus TRACE Urine Opiates Screen Ur Barbiturates Screen Ur Phencyclidine Scrn Ur Amphetamines Screen U Benzodiazepines Scrn Urine Cocaine Screen U Marijuana (THC) Screen COVID-19 (SABINE) Negative COVID-19 Clin Com See Note 03/07/20 14:41 MCV MCH MCHC RDW Plt Count MPV Immature Gran % (Auto) Neut % (Auto) Lymph % (Auto) Desha % (Auto) Eos % (Auto) Baso % (Auto) Lymph # (Auto) Desha # (Auto) Eos # (Auto) Baso # (Auto) Abs Immat Gran (auto) Absolute Neuts (auto) Absolute Nucleated RBC Nucleated RBC % (auto) Hold Blue Top Anion Gap Estim Creat Clear Calc Estimated GFR Random Glucose Lactic Acid Calcium Magnesium Total Bilirubin Direct Bilirubin AST ALT Alkaline Phosphatase Total Protein Albumin Lipase Urine Color Urine Appearance Urine pH Ur Specific [place] Urine Protein Urine Glucose (UA) Urine Ketones Urine Blood Urine Nitrite Ur Leukocyte Esterase Urine RBC Urine WBC Ur Squamous Epith Cells Urine Bacteria Urine Mucus Urine Opiates Screen Not Detected Ur Barbiturates Screen Not Detected Ur Phencyclidine Scrn Not Detected Ur Amphetamines Screen Not Detected U Benzodiazepines Scrn Not Detected Urine Cocaine Screen Not Detected U Marijuana (THC) Screen POSITIVE H COVID-19 (SABINE) COVID-19 Clin Com Imaging Radiologist's Impressions: Impressions Abdomen/Pelvis CT 03/07/20 12:33 IMPRESSION: No significant abnormality appreciated. Some prominent periaortic lymph nodes. Assessment and Plan (1) Abdominal pain: Qualifiers: Abdominal location: left lower quadrant Qualified Code(s): R10.32 - Left lower quadrant pain Status: Acute (2) TERRY (acute kidney injury): Status: Acute (3) Type 1 diabetes mellitus with hyperglycemia: Status: Acute A 34 years old male with PMH of diabetes type 1 on insulin pump, CKD stage 3, legally blind, depression among others who presented to the hospital com plaining of left lower quadrant pain associated with nausea. Abdominal pain Possibly secondary to colitis given LUQ pain, elevated WBCs, tachycardia Meets sepsis criteria Lactic acid normal Sepsis focused exam done Pending blood cultures CT scan was done without contrast, might not show all the details of the large bowels Start antibiotics of ceftriaxone and Flagyl Consider GI evaluation if no improvement Terry I on CKD Secondary to decreased oral intake Start gentle hydration Monitor intake and output Follow BMP Hyperglycemia secondary to diabetes Continue insulin pump Diabetic diet DVT PPX Lovenox
[2020-03-07] MEDS: cefTRIAXone sodium 1 GM in 0.9 % Sodium Chloride 50 ML IV (17:35)
[2020-03-07] MEDS: metroNIDAZOLE/NS 500 MG/100 ML PIGGYBACK 100 MG IV (18:25)
[2020-03-07] MEDS: 0.9 % Sodium Chloride 1,000 ML 75 ML IVCONT (20:27)
[2020-03-07] MEDS: Enoxaparin Sodium 40 MG/0.4 ML SYRINGE SUBCUT (20:27)
[2020-03-07] MEDS: Morphine Sulfate 4 MG/ML CARTRIDGE IVPUSH (20:27)
--- NOTE | 2020-03-07 21:33 | PC.NURSE ---
THIS RN SPOKE WITH HOSPITALIST OVER THE PHONE. AWARE OF TACHYCARDIA 120s, SINUS TACHYCARDIA AND ELEVATED BP OF 200/118. ORDERED REPEAT EKG, AND LABETALOL 10MG IVPUSH. WILL CONTINUE TO MONITOR. FAITH ALVES (PRIMARY RN) ALSO NOTIFIED/UPDATED.
[2020-03-07] MEDS: Labetalol HCL 100 MG/20 ML VIAL 10 MG IVPUSH (21:40)
[2020-03-07] MEDS: Nortriptyline HCl 25 MG CAPSULE 50 MG PO (21:41)
[2020-03-07] MEDS: Sucralfate 1 GM TABLET PO (21:42)
[2020-03-07] MEDS: Gabapentin 600 MG TABLET PO (21:42)
[2020-03-08] VITALS (8 sets, daily range): BP systolic 122–189; BP diastolic 73–108; PULSE 102–118; RESP 16–109; TEMP 36.4–37.1; O2SAT 96–98
[2020-03-08] MEDS: metroNIDAZOLE/NS 500 MG/100 ML PIGGYBACK 100 MG IV ×3 (00:51→17:37)
[2020-03-08] MEDS: 0.9 % Sodium Chloride Flush 3 ML SYRINGE IVFLUSH ×3 (00:52→15:09)
[2020-03-08 00:53] LABS: Glucose, Whole Blood 237 mg/dL (60-115)
[2020-03-08 06:13] LABS: Hemoglobin 14.2 g/dl (14.0-18.0); Mean Corpuscular HGB Conc 35.5 g/dl (31.0-36.0); Mean Corpuscular Hemoglobin 31.3 pg (27.0-33.0); Mean Corpuscular Volume 88.1 fL (80-98); Mean Platelet Volume 10.1 fL (9.4-12.4); Platelet Count 355 X10*3/uL (160-400); Red Blood Count 4.54 X10*6/uL (4.60-5.80); Red Cell Distribution Width 11.3 % (11.0-16.0); White Blood Count 15.1 X10*3/uL (4.8-10.8)
[2020-03-08 06:40] LABS: Alanine Aminotransferase 11 U/L (0-40); Albumin Level 3.1 g/dL (3.5-5.0); Alkaline Phosphatase 81 U/L (39-117); Anion Gap 14 (12-20); Aspartate Amino Transferase 11 U/L (5-37); Bilirubin Direct 0.3 mg/dL (0.0-0.5); Bilirubin Total 0.5 mg/dL (0.0-1.0); Blood Urea Nitrogen 21 mg/dL (9-16); Calcium 8.5 mg/dL (8.4-10.2); Carbon Dioxide 27 mmol/L (22-29); Chloride 98 mmol/L (96-108); Creatinine Clr Calc Pharmacy 43.9; Estimated Glomerular Filt Rate 33; Glucose Random 234 mg/dL (60-115); Potassium 4.9 mmol/l (3.3-5.1); Sodium 134 mmol/L (135-145); Total Protein 5.8 g/dL (6.5-8.0)
[2020-03-08 07:46] LABS: Glucose, Whole Blood 200 mg/dL (60-115)
[2020-03-08] MEDS: Omeprazole 40 MG CAPSULE.DR PO (10:14)
[2020-03-08] MEDS: Losartan Potassium 50 MG TABLET PO (10:15)
[2020-03-08] MEDS: Sucralfate 1 GM TABLET PO ×3 (10:15→20:57)
[2020-03-08] MEDS: Atorvastatin Calcium 80 MG TABLET PO (10:15)
[2020-03-08] MEDS: Gabapentin 600 MG TABLET PO ×3 (10:15→20:58)
[2020-03-08] MEDS: 0.9 % Sodium Chloride 1,000 ML 75 ML IVCONT ×2 (10:42→15:11)
--- NOTE | 2020-03-08 10:43 | P.CDIC_ITS ---
CDI Concurrent Query Service Date: 03/08/20 Documentation Clarification: Please clarify if you are treating a proba ble/suspected/likely or confirmed: Clarity of documentation within the medical record: Sepsis txt Sepsis rule out Please specify if known or other Provider Response: Sepsis PLEASE DO NOT DELETE/MODIFY EXISTING CONTENT Additional information is needed in order to code to the highest accuracy and appropriate Severity of Illness (SOI). Please clarify the information noted below in your progress notes and discharge summary. Risk Factors/Clinical Indicators/Treatments Ed: Low concern for severe sepsis at this time, tachycardia likely from pain. Dx. KAYODE, N/V H&P: Meets sepsis criteria, sepsis focus exam done, placed on Ceftriaxone and Flagyl. GI evaluation possible. Temp 97.4 HR 120 RR 18 WBC 13.8 LA negative CDS: Floridalma Toledo CCS, CDIS Contact Number: [phone] Please Review the information above and exercise your independent professional judgment in responding to the query. If you concur, pleas document in the PROGRESS NOTES and DISCHARGE SUMMARY. If you do not agree with the query, please document in the query above. THIS QUERY IS PART OF THE PERMANENT MEDICAL RECORD
[2020-03-08 11:43] LABS: Glucose, Whole Blood 234 mg/dL (60-115)
[2020-03-08] MEDS: Ketorolac Tromethamine 30 MG/ML VIAL 15 MG IVPUSH (15:08)
--- NOTE | 2020-03-08 15:38 | HO.PM.IMPN ---
Subjective Subjective Date of Service: 03/08/20 Review of Systems No fever, but reporting chills and generalized weakness No chest pain, palpitation No shortness of breath or coughing Left lower quadrant abdominal pain, associated with nausea but no vomiting No urinary symptoms No any rash or wounds Physical Exam Vital Signs: Vital Signs: Last Vital Signs Temp 98.1 F 03/08/20 12:00 Pulse 112 H 03/08/20 12:00 Resp 18 03/08/20 12:00 BP 122/73 03/08/20 12:00 Pulse Ox 97 03/08/20 12:00 Body Mass Index 24.3 Constitutional : Alert, oriented, not in distress, legally blind Neck : Normal inspection, Supple Cardiovascular : RRR, S1 S2, no lower extremity edema Respiratory : Good bilateral air entry, no crackles, wheezes or rhonchi Gastrointestinal: soft, lax, Normal bowel sounds, left lower quadrant tenderness with deep palpation Skin : Warm/Dry, No rash Neurological : Alert & oriented x3, No focal deficit Objective Data Current Medications Generic Name Dose Route Start Last Admin Trade Name Chemoq PRN Reason Stop Dose Admin Acetaminophen 650 mg 03/07/20 16:51 Acetaminophen 325 Mg Tablet PO Q6H PRN Pain, Mild (Pain Scale 1-3) Atorvastatin Calcium 80 mg 03/08/20 09:00 03/08/20 10:15 Atorvastatin Calcium 80 Mg Tablet PO 80 mg DAILY OKSANA Administration Enoxaparin Sodium 40 mg 03/07/20 17:00 03/07/20 20:27 Enoxaparin Sodium 40 Mg/0.4 Ml Syringe SUBCUT 40 mg Q24H OKSANA Administration Gabapentin 600 mg 03/07/20 21:00 03/08/20 15:08 Gabapentin 600 Mg Tablet PO 600 mg TID OKSANA Administration Sodium Chloride 1,000 mls @ 75 mls/hr 03/07/20 17:00 03/08/20 15:11 Ns IVCONT 75 mls/hr .[id number] OKSANA Administration Ceftriaxone Sodium 1 gm/ 50 mls @ 100 mls/hr 03/07/20 17:00 03/07/20 18:12 Sodium Chloride IV Infused Q24H OKSANA Infusion Metronidazole 500 mg in 100 mls @ 100 mls/hr 03/07/20 17:00 03/08/20 11:56 Flagyl IV Infused Q8H OKSANA Infusion Insulin Human Lispro 0 unit 03/07/20 16:51 Insulin Lispro 100 Unit/Ml 3 Ml Vial SUBCUT .COMPLEX [facility] Ketorolac Tromethamine 15 mg 03/07/20 16:51 03/08/20 15:08 Ketorolac Tromethamine 30 Mg/Ml Vial IVPUSH 03/12/20 16:50 15 mg Q6H PRN Administration Pain, Mild (Pain Scale 1-3) Losartan Potassium 50 mg 03/08/20 09:00 03/08/20 10:15 Losartan Potassium 50 Mg Tablet PO 50 mg DAILY OKSANA Administration Protocol Nortriptyline HCl 50 mg 03/07/20 21:00 03/07/20 21:41 Nortriptyline Hcl 25 Mg Capsule PO 50 mg BEDTIME OKSANA Administration Omeprazole 40 mg 03/08/20 09:00 03/08/20 10:14 Omeprazole 40 Mg Capsule.Dr PO 40 mg DAILY OKSANA Administration Ondansetron HCl 4 mg 03/07/20 16:51 Ondansetron Hcl 4 Mg/2 Ml Vial IVPUSH Q8H PRN Nausea and Vomiting Pharmacy Consult 1 each 03/07/20 12:43 Consult Rx Perform Med Rec MISCELLANE ONCE PRN Consult order Sodium Chloride 3 ml 03/08/20 00:00 03/08/20 15:09 0.9 % Sodium Chloride Flush 3 Ml Syringe IVFLUSH 3 ml QSHIFT [facility] Administration Sucralfate 1 gm 03/07/20 17:00 03/08/20 15:08 Sucralfate 1 Gm Tablet PO 1 gm QID OKSANA Administration Tramadol HCl 50 mg 03/07/20 16:51 Tramadol Hcl 50 Mg Tablet PO DAILY PRN Pain Trazodone HCl 100 mg 03/07/20 16:51 Trazodone Hcl 100 Mg Tablet PO BEDTIME PRN Insomnia Labs CBC & Chem 7: 03/08/20 05:21 03/08/20 05:21 Assessment and Plan (1) Abdominal pain: Status: Acute (2) GUNJAN (acute kidney injury): Status: Acute (3) Type 1 diabetes mellitus with hyperglycemia: Status: Acute Assessment and Plan: A 34 years old male with PMH of diabetes type 1 on insulin pump, CKD stage 3, legally blind, depression among others who presented to the hospital complaining of left lower quadrant pain associated with nausea. Sepsis at presentation Possibly secondary to colitis Pain has improved given held LQ pain, elevated WBCs, tachycardia Meets sepsis criteria Pending blood cultures CT scan was done without contrast, might not show all the details of the large bowels Continue antibiotics of ceftriaxone and Flagyl GI evaluation as outpatient for possible colonoscopy Gunjan on CKD Could be new baseline for him Creatinine stable around 2 Continue gentle hydration Monitor intake and output Follow BMP Hyperglycemia secondary to diabetes Continue insulin pump Diabetic diet DVT PPX Lovenox
--- NOTE | 2020-03-08 15:51 | MHC.CM.PN ---
PT LIVES AT HOME WITH HIS S/O AND HIS KIDS. PT REPORTS HE IS INDEPENDENT WITH SELF CARE AND HIS S/O IS HIS [employer]. PT REPORTS HE HAS AN INSULIN PUMP AND NO OTHER DME. PT REPORTS HIS PCP IS TARAS RICHARDSON. PT DECLINES TO COMPLETE A HCP. IMM DELIVERED CURRENT DC PLAN IS HOME WITH RESUMPTION OF [employer] SERVICES S/O TO TRANSPORT
[2020-03-08 16:27] LABS: Glucose, Whole Blood 269 mg/dL (60-115)
[2020-03-08] MEDS: cefTRIAXone sodium 1 GM in 0.9 % Sodium Chloride 50 ML IV (17:37)
[2020-03-08] MEDS: Enoxaparin Sodium 40 MG/0.4 ML SYRINGE SUBCUT (17:38)
[2020-03-08 19:31] LABS: Glucose, Whole Blood 247 mg/dL (60-115)
[2020-03-08 19:39] LABS: Glucose, Whole Blood 264 mg/dL (60-115)
[2020-03-08] MEDS: Nortriptyline HCl 25 MG CAPSULE 50 MG PO (20:58)
[2020-03-08] MEDS: Insulin Lispro 100 UNIT/ML 3 ML VIAL SUBCUT (21:00)
[2020-03-09] VITALS (10 sets, daily range): BP systolic 153–190; BP diastolic 68–110; PULSE 93–127; RESP 17–19; TEMP 36.6–36.9; O2SAT 95–98
[2020-03-09] MEDS: metroNIDAZOLE/NS 500 MG/100 ML PIGGYBACK 100 MG IV ×3 (03:04→18:23)
[2020-03-09 03:14] LABS: Glucose, Whole Blood 322 mg/dL (60-115)
--- NOTE | 2020-03-09 03:43 | PC.NURSE ---
~20:00; Pt has his own insulin pump. POC 200's-300's. Pt states his insulin pump is empty, and is due to be remove today. Insulin pump is changed every 3 days, per patient. Pt removed insulin pump from LLQ. Skin intact. made aware, Sliding scale ordered and pt covered with insulin per protocol. Will pass along to next nurse.
[2020-03-09 04:52] LABS: Glucose, Whole Blood 377 mg/dL (60-115)
[2020-03-09] MEDS: Ketorolac Tromethamine 30 MG/ML VIAL 15 MG IVPUSH (05:40)
[2020-03-09] MEDS: Insulin Lispro 100 UNIT/ML 3 ML VIAL SUBCUT ×5 (05:47→18:21)
[2020-03-09 06:45] LABS: Hematocrit 40.7 % (42-52); Hemoglobin 13.8 g/dl (14.0-18.0); Mean Corpuscular HGB Conc 33.9 g/dl (31.0-36.0); Mean Corpuscular Hemoglobin 30.1 pg (27.0-33.0); Mean Corpuscular Volume 88.9 fL (80-98); Mean Platelet Volume 10.6 fL (9.4-12.4); Platelet Count 336 X10*3/uL (160-400); Red Blood Count 4.58 X10*6/uL (4.60-5.80); Red Cell Distribution Width 11.3 % (11.0-16.0); White Blood Count 15.9 X10*3/uL (4.8-10.8)
[2020-03-09 07:24] LABS: Anion Gap 23 (12-20); Blood Urea Nitrogen 23 mg/dL (9-16); Calcium 8.4 mg/dL (8.4-10.2); Carbon Dioxide 18 mmol/L (22-29); Chloride 97 mmol/L (96-108); Creatinine Clr Calc Pharmacy 43.1; Estimated Glomerular Filt Rate 32; Glucose Random 414 mg/dL (60-115); Potassium 5.4 mmol/l (3.3-5.1); Sodium 133 mmol/L (135-145)
[2020-03-09] MEDS: Sucralfate 1 GM TABLET PO ×4 (08:08→20:20)
[2020-03-09] MEDS: Omeprazole 40 MG CAPSULE.DR PO (08:08)
[2020-03-09] MEDS: Losartan Potassium 50 MG TABLET PO (08:08)
[2020-03-09] MEDS: Gabapentin 600 MG TABLET PO ×3 (08:08→20:20)
[2020-03-09] MEDS: Atorvastatin Calcium 80 MG TABLET PO (08:08)
[2020-03-09 08:11] LABS: Glucose, Whole Blood 295 mg/dL (60-115)
[2020-03-09] MEDS: 0.9 % Sodium Chloride 1,000 ML 75 ML IVCONT (08:11)
[2020-03-09] MEDS: Insulin Glargine,Hum.rec.anlog 100 UNIT/ML 10 ML VIAL 8 UNIT SUBCUT (08:20)
[2020-03-09] MEDS: Sodium Polystyrene Sulfon/Sorb 15 GM/60 ML ORAL.SUSP 30 GM PO (08:20)
[2020-03-09 09:12] LABS: Acetone, serum QL Small (Negative)
[2020-03-09 09:13] LABS: Lactic Acid 1.2 mmol/L (0.5-2.0)
[2020-03-09] MEDS: Famotidine 20 MG TABLET PO (09:35)
[2020-03-09] MEDS: Calcium Carbonate 750 MG TAB.CHEW 1500 MG PO (09:36)
[2020-03-09] MEDS: 0.9 % Sodium Chloride 500 ML IV (09:36)
--- NOTE | 2020-03-09 10:50 | P.CONNP_ITS ---
History of Present Illness Reason for Consult Consult date: 03/09/20 Chief Complaint Chief complaint: abdominal pain,nausea History of Present Illness Narrative: 34 y/o IDDM type 1 x 28 yrs with CKD adm with LUQ pain and getting w/u with CT w/o C unrevealing. C/O GParesis sxms. No CP/SOB. No GH/dysuria Acid reflux Chronic kidney disease, stage 3 Diabetic polyneuropathy associated with type 1 diabetes mellitus Diabetic visual loss, with retinopathy, associated with type 1 diabetes mellitus Essential hypertension Gastritis Hyperlipidemia LDL goal <70 Polyneuropathy Sciatica Type 1 diabetes mellitus with diabetic chronic kidney disease Type 1 diabetes mellitus with hyperglycemia Review of Systems Review of Systems No fever, but reporting chills and generalized weakness No chest pain, palpitation No shortness of breath or coughing Left lower quadrant abdominal pain, associated with nausea but no vomiting No urinary symptoms No any rash or wounds Yes all other systems are reviewed and are negative PMFSH Past Medical History Medical History Acid reflux Chronic kidney disease, stage 3 Diabetic polyneuropathy associated with type 1 diabetes mellitus Diabetic visual loss, with retinopathy, associated with type 1 diabetes mellitus Essential hypertension Gastritis Hyperlipidemia LDL goal <70 Polyneuropathy Sciatica Type 1 diabetes mellitus with diabetic chronic kidney disease Type 1 diabetes mellitus with hyperglycemia Family History Family History Father Diabetes mellitus Mother Diabetes mellitus Maternal Grandfather Diabetes mellitus Maternal Grandmother Diabetes mellitus Surgical History Surgical History Hx of appendectomy Hx of circumcision Hx of eye surgery Social History Social History Household Members: Family and Children Housing: House Alcohol intake: never Smoking Status: Never smoker Smoked in Last 30 Days: No Use of substances other than those prescribed or required for medical reasons: Yes Substance Use Type: Marijuana Substance Use Frequency: Occasionally Currently Displaying Signs/Symptoms of Drug Intoxication Withdrawal: No Have you been hit, kicked, punched, or otherwise hurt by someone within the past year? If so, by whom?: No Do you feel safe in your current relationship?: Yes Is there a partner from a previous relationship who is making you feel unsafe now?: No Are you made to feel afraid or neglected: No Advance Directives: No Advance Directives Information Provided: Yes Do you have thoughts of harming others: None Do you have a plan to hurt others: No Plan Recently lost weight without trying: No service: No Current occupational status: disabled Meds Allergies Allergy/AdvReac Type Severity Reaction Status Date / Time No Known Allergies Allergy Unverified 01/04/20 14:52 [No Known Allergies*] Home Medications Medication Instructions Recorded Confirmed Type gabapentin 600 mg tablet 600 mg PO TID 01/04/20 03/07/20 History insulin pump cartridge #5 ea 01/04/20 02/27/20 History losartan 50 mg tablet 50 mg PO DAILY 01/04/20 03/07/20 History nortriptyline 50 mg capsule 50 mg PO BEDTIME 01/04/20 03/07/20 History omeprazole 40 mg capsule,delayed 40 mg PO DAILY 01/04/20 03/07/20 History release tramadol 50 mg tablet 50 mg PO DAILY PRN 01/04/20 03/07/20 History trazodone 1 tab PO BEDTIME PRN 03/07/20 03/07/20 History Physical Exam Vital Signs: Last Vital Signs Temp 97.8 F 03/09/20 08:00 Pulse 126 H 03/09/20 08:00 Resp 17 03/09/20 08:00 BP 173/98 H 03/09/20 03:12 Pulse Ox 97 03/09/20 08:00 Body Mass Index 24.3 Const General: cooperative Orientation/consciousness: patient oriented x3 Limitations: no limitations [facility] Head: Yes normal to inspection Ears: hearing grossly normal bilaterally General nose exam: Normal external nose present Face and sinus: Yes normal facial exam Eyes General: appearance normal, both eyes and all related structures EOM: EOMs intact bilaterally Neck Neck: Yes normal visual inspection Resp Effort & Inspection: normal respiratory effort Cardio Rate: regular rate GI Inspection: Yes normal to inspection Palpation (GI): Soft to palpation, Tenderness to palpation present (GI) in the epigastrum and in the LLQ; with no rebound tenderness, no guarding and not rigid General: Yes no CVA tenderness Back/Spine/Pelvis Back: no CVA tenderness Skin Rashes: no rashes Wounds: no wounds Neuro General: patient oriented x3 Gait exam (Neuro): Normal gait present Extrem General: Yes normal to inspection Results Lab Results Result Diagrams: 03/09/20 05:36 03/09/20 05:36 Lab results: Chemistry 03/07/20 03/08/20 03/09/20 11:52 05:21 05:36 Sodium 135 134 L 133 L Potassium 4.2 4.9 5.4 H Carbon Dioxide 30 H 27 18 L BUN 19 H 21 H 23 H Creatinine 2.21 H 2.27 H 2.31 H Calcium 9.1 8.5 D 8.4 Hematology 03/07/20 03/08/20 03/09/20 11:52 05:21 05:36 WBC 13.8 H 15.1 H 15.9 H Hgb 15.2 14.2 13.8 L Plt Count 346 355 336 Urinalysis 03/07/20 14:41 Urine Color YELLOW Urine Appearance HAZY Urine pH 8.5 H Ur Specific [place] 1.020 Urine Protein 2+ H Urine Glucose (UA) 100 H Urine Ketones 15 Urine Blood NEG Urine Nitrite NEG Ur Leukocyte Esterase NEG Urine RBC 1-4 Urine WBC 1-4 Ur Squamous Epith Cells TRACE Laboratory Tests 08/25/19 03/08/20 03/09/20 15:15 05:21 05:36 Creatinine 1.88 H 2.27 H 2.31 H Assessment and Plan (1) Abdominal pain: Qualifiers: Abdominal location: left lower quadrant Qualified Code(s): R10.32 - Left lower quadrant pain Status: Acute (2) KAYODE (acute kidney injury): Status: Acute (3) Type 1 diabetes mellitus with hyperglycemia: Status: Acute 1. KAYODE: Scr not far from bsl, suspect element of dehydration 2. CKD 4: c/w DN 3. Abd pain: w/u in progress 4. HyperK; cozaar placed on hold 5. MBD of CKD: check PTH/vit D for chronic bone hhealth REC: hold cozaar; check PTH/vit D; cont IVf; avoid NSAIDS/NToxins; needs CKD outpt f/u ( I will arrange)
--- NOTE | 2020-03-09 11:45 | MHC.CM.PN ---
per rounds anticapatyed dcd for sat plan remains resumption of [facility] nurse services [facility] to transport pt home
--- NOTE | 2020-03-09 12:12 | P.CNGI_ITS ---
History of Present Illness Data of Consult Service Date: 03/09/20 Primary Care Provider: Unknown Physician HPI Pt was seen at [facility] on 03/07/20 with abdominal pain: 34-year-old male with a past medical history of GERD, diabetes, CKD, polyn europathy, HTN, HLD, presenting to the ED complaining of left lower quadrant abdominal pain x1 week with associated nausea and vomiting. Admits to similar symptoms in the past with colitis. Denies fever, chills, diarrhea, constipation, dysuria/hematuria, testicular pain/penile discharge ABD CT SCAN SHOWED: GASTROINTESTINAL TRACT: No dilated loops of large or small bowel. No free air or free fluid. Appendix not visualized. No pericolonic inflammatory change. ABDOMINAL WALL: No significant hernia is appreciated. LYMPH NODES: There are some prominent periaortic lymph nodes present largest measuring up to approximately 1 cm in diameter in the region of the left renal vein. There are some prominent mesenteric lymph nodes present as well but not pathologically enlarged. Patient is a [age] [sex] here for FU of [] ENDOSCOPIC STUDIES: 11/12 EGD WAS PERFORMED BY DR[address] EPPS FOR EVALUATION OF EPIGASTRIC PAIN. EGD showed superficial gastritis. Gastric biopsies were negative for Helicobacter pylori TODAY'S VISIT: History obtained with the help of a comic book artist, Elinor. Patient gives history of intermittent episodes of left lower quadrant pain since May of 2018. States present episode of pain started on February 10. On admission pain was 10 x 10 in intensity. Notes that pain gets worse with breathing and after eating and drinking. He denies nausea and induces vomiting in an attempt to clean his stomach. Vomitus can be a little blood tinged after repeated episodes. Patient denies fever, chills a recent change in bowel habits. He admits to weight loss of 8-10 lbs. Patient denies past history of peptic ulcer disease. Patient denies symptoms of heartburn, dysphagia, nausea, vomiting, change in appetite or weight. Denies recent change in bowel habits, constipation, diarrhea, black stools or rectal bleeding. Patient denies major cardiac or pulmonary problems, Sleep study was negative for sleep apnea Denies problems with anesthesia in the past. Denies being on chronic anticoagulation. Patient denies known family history of colon polyps, colon cancer or other GI malignancies. Dad had GB problems and diverticulosis. Patient admits to past smoking and quit did 2 years ago and drinks alcohol occasionally. On medical marijuana for neuropathy - uses 3 times a week. PAST GI HISTORY BY REVIEW OF MEDICAL RECORDS: 09/14/19 patient was seen by AJITH Lopez in the GI clinic: A 33-year-old male referred with epigastric pain for the past several months as well as acid reflux despite PPI He has has frequent nausea-vomits when he gets the pain,-epigastric pain radiates to the LUQ Some days he has the pain other days, not. 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 He will continue omeprazole 40 mg daily as well give trial to Carafate 1 g q.i.d. Discussed lifestyle and dietary modifications. He should culprits caffeine, nicotine, chocolate, peppermint and alcohol. He should remain upright 2-3 hours after eating especially his evening meal. He will keep a pain diary. We will get a barium swallow to assess for reflux, stricture, other his symptoms. Is unclear if he has had gastric emptying -there is no record documents. He is encouraged to call questions or concerns. We will follow, plan of care dependent on above. Chronic nausea Start Carafate Suspension, 1 GM/10ML, 10 ml on an empty stomach, Orally, QID, 30 day(s), 1200 ml, Refills 3 09/29/19-GES Free gastroesophageal reflux to the level of the thoracic inlet which clears slowly. Review of Systems Constitutional: Constitutional: Reports chills, Denies fever(s), Denies headache(s), Reports weakness and Denies weight loss Eyes: Eyes: Denies eye discharge and Denies irritation ENT: Reports Normal hearing present, Denies dysphagia, Denies dizziness and Denies headache(s) Cardiovascular: Cardiovascular: Denies chest pain, Denies leg edema and Denies dyspnea on exertion Respiratory: Respiratory: Denies cough and Denies dyspnea on exertion Gastrointestinal: Gastrointestinal: Reports abdominal pain, Denies change in bowel habits, Denies dysphagia, Denies heartburn, Reports nausea and Reports vomiting (Self induced) Genitourinary: Genitourinary: Denies dysuria Musculoskeletal: Musculoskeletal: Denies back pain and Denies arthralgias Integumentary/Breasts: Skin/Breast: Denies pruritus, Denies rash and Denies jaundice Neurologic: Reports Normal hearing present, Denies Abnormal speech present, Denies dizziness, Denies headache(s), Denies seizure-like activity and Reports weakness Psychiatric: Psychiatric: Denies anxiety, Denies depression and Denies panic attacks Endocrine: Endocrine: Denies cold intolerance, Denies flushing and Denies heat intolerance PMFSH Past Medical History Medical History Acid reflux Chronic kidney disease, stage 3 Diabetic polyneuropathy associated with type 1 diabetes mellitus Diabetic visual loss, with retinopathy, associated with type 1 diabetes mellitus Essential hypertension Gastritis Hyperlipidemia LDL goal <70 Polyneuropathy Sciatica Type 1 diabetes mellitus with diabetic chronic kidney disease Type 1 diabetes mellitus with hyperglycemia Family History Family History Father Diabetes mellitus Mother Diabetes mellitus Maternal Grandfather Diabetes mellitus Maternal Grandmother Diabetes mellitus Surgical History Surgical History Hx of appendectomy Hx of circumcision Hx of eye surgery Social History Social History Household Members: Family and Children Housing: House Alcohol intake: never Smoking Status: Never smoker Smoked in Last 30 Days: No Use of substances other than those prescribed or required for medical reasons: Yes Substance Use Type: Marijuana Substance Use Frequency: Occasionally Currently Displaying Signs/Symptoms of Drug Intoxication Withdrawal: No Have you been hit, kicked, punched, or otherwise hurt by someone within the past year? If so, by whom?: No Do you feel safe in your current relationship?: Yes Is there a partner from a previous relationship who is making you feel unsafe now?: No Are you made to feel afraid or neglected: No Advance Directives: No Advance Directives Information Provided: Yes Do you have thoughts of harming others: None Do you have a plan to hurt others: No Plan Recently lost weight without trying: No service: No Current occupational status: disabled Meds Allergies Allergy/AdvReac Type Severity Reaction Status Date / Time No Known Allergies Allergy Unverified 01/04/20 14:52 [No Known Allergies*] Home Medications Medication Instructions Recorded Confirmed Type gabapentin 600 mg tablet 600 mg PO TID 01/04/20 03/07/20 History insulin pump cartridge #5 [id number] 01/04/20 02/27/20 History losartan 50 mg tablet 50 mg PO DAILY 01/04/20 03/07/20 History nortriptyline 50 mg capsule 50 mg PO BEDTIME 01/04/20 03/07/20 History omeprazole 40 mg capsule,delayed 40 mg PO DAILY 01/04/20 03/07/20 History release tramadol 50 mg tablet 50 mg PO DAILY PRN 01/04/20 03/07/20 History trazodone 1 tab PO BEDTIME PRN 03/07/20 03/07/20 History Physical Exam Vital Signs: Vital Signs: Last Vital Signs Temp 97.8 F 03/09/20 08:00 Pulse 126 H 03/09/20 08:00 Resp 17 03/09/20 08:00 BP 173/98 H 03/09/20 03:12 Pulse Ox 97 03/09/20 08:00 Body Mass Index 24.3 Const: General: no acute distress and ill appearing Nutritional Appearance: average body habitus Orientation/consciousness: patient oriented x3 Limitations: no limitations HENMT: Head: Yes normal to inspection Ears: hearing grossly normal bilaterally Mouth: Normal oral and palatal mucosa present Eyes: Other: Legally blind Neck: Neck: Yes normal visual inspection Chest: Chest palpation & inspection: normal inspection of the chest Resp: Effort & Inspection: normal respiratory effort Auscultation: clear to auscultation bilaterally Cardio: Palpation: normal PMI Rate: regular rate Rhythm: regular rhythm Heart sounds: S1 normal heart sound present, S2 normal heart sound present and no murmurs GI: Palpation (GI): Soft to palpation, Tenderness to palpation present (GI) in the LLQ and No hepatosplenomegaly present Auscultation: normal bowel sounds Rectal Exam - Male: Yes deferred Skin: General skin exam: no rashes or lesions noted Neuro: General: patient oriented x3, gait normal and moves all extremities Cranial nerves: Yes Normal hearing present Speech: No Abnormal speech present Psych: Appearance: grossly normal Mental Status: mental status grossly normal Results Labs CBC & Chem 7: 03/12/20 04:03 03/12/20 04:03 Labs: Short CBC 03/09/20 Range/Units 05:36 WBC 15.9 H (4.8-10.8) X10*3/uL Hgb 13.8 L (14.0-18.0) g/dl Hct 40.7 L (42-52) % Plt Count 336 (160-400) X10*3/uL BMP 03/09/20 05:36 Sodium 133 L Potassium 5.4 H Chloride 97 Carbon Dioxide 18 L BUN 23 H Creatinine 2.31 H Calcium 8.4 Microbiology Microbiology Results: Microbiology 03/07/20 14:00 Blood - Venous Blood Culture - Preliminary No growth after 24 hours. 03/07/20 13:49 Blood - Venous Blood Culture - Preliminary No growth after 24 hours. Assessment and Plan (1) Abdominal pain: Qualifiers: Abdominal location: left lower quadrant Qualified Code(s): R10.32 - Left lower quadrant pain Status: Acute (2) Nausea & vomiting: Qualifiers: Vomiting Intractability: non-intractable Vomiting type: unspecified Qualified Code(s): R11.2 - Nausea with vomiting, unspecified Status: Acute 34-year-old Georgian-speaking male, legally blind, with a past medical hist ory of GERD, diabetes, CKD, polyneuropathy, HTN, HLD admitted with the left lower quadrant pain. Patient gives a history of intermittent episodes of abdominal pain, nausea and vomiting for the past 2 years. Past evaluation with EGD showed gastritis and no clear source for abdominal pain. 09/29/19-GES Free gastroesophageal reflux to the level of the thoracic inlet which clears slowly. Abdominal CT scan showed prominent periaortic lymph nodes present largest measuring up to approximately 1 cm in diameter in the region of the left renal vein. 11/12 EGD showed superficial gastritis. Gastric biopsies were negative for Helicobacter pylori RECOMMENDATIONS: 1. Continue IV antibiotics. Can switch to PO once pain resolves. 2. Patient needs further evaluation with the colonoscopy to rule out IBD. Procedure will be scheduled as an outpatient in the next few weeks. Colonoscopy procedure and potential complications including bleeding, perforation, drug reaction and missed diagnosis were reviewed with the patient.
[2020-03-09 12:26] LABS: Phosphorus 3.4 mg/dL (2.7-4.5)
[2020-03-09 12:43] LABS: Anion Gap 17 (12-20); Blood Urea Nitrogen 23 mg/dL (9-16); Calcium 8.4 mg/dL (8.4-10.2); Carbon Dioxide 22 mmol/L (22-29); Chloride 99 mmol/L (96-108); Creatinine Clr Calc Pharmacy 46.8; Estimated Glomerular Filt Rate 36; Glucose Random 204 mg/dL (60-115); Potassium 4.7 mmol/l (3.3-5.1); Sodium 133 mmol/L (135-145)
[2020-03-09 12:44] LABS: Glucose, Whole Blood 213 mg/dL (60-115)
[2020-03-09] MEDS: 0.9 % Sodium Chloride 1,000 ML 100 ML IVCONT (12:48)
[2020-03-09 12:50] LABS: Vitamin D 25-OH Total 19.8 ng/mL (>30)
[2020-03-09] MEDS: Morphine Sulfate 2 MG/ML CARTRIDGE 1 MG IVPUSH ×2 (13:33→20:20)
[2020-03-09] MEDS: 0.9 % Sodium Chloride Flush 3 ML SYRINGE IVFLUSH ×2 (13:34→23:14)
--- NOTE | 2020-03-09 13:49 | P.PNIM_ITS ---
Subjective Subjective Date of Service: 03/09/20 Review of Systems patient was seen and evaluated this morning Laying in bed, feels comfortable, pain is under better control Reporting heartburn Denies any fever, chills or shortness of breath Blood sugar significantly elevated overnight as insulin pump broken No reported other overnight events. Systemic review: No fever, chills or weakness No chest pain, palpitation No shortness of breath or coughing Mild left lower quadrant abdominal pain, no nausea or vomiting No urinary symptoms No any rash or wounds Physical Exam Vital Signs: Vital Signs: Last Vital Signs Temp 97.8 F 03/09/20 12:00 Pulse 127 H 03/09/20 12:00 Resp 19 03/09/20 12:00 BP 188/110 H 03/09/20 12:48 Pulse Ox 96 03/09/20 12:00 Body Mass Index 24.3 Constitutional : Alert, oriented, not in distress, legally blind Neck : Normal inspection, Supple Cardiovascular : RRR, S1 S2, no lower extremity edema Respiratory : Good bilateral air entry, no crackles, wheezes or rhonchi Gastrointestinal: soft, lax, Normal bowel sounds, left lower quadrant tenderness with deep palpation Skin : Warm/Dry, No rash Neurological : Alert & oriented x3, No focal deficit Objective Data Current Medications Generic Name Dose Route Start Last Admin Trade Name Freq PRN Reason Stop Dose Admin Acetaminophen 650 mg 03/07/20 16:51 Acetaminophen 325 Mg Tablet PO Q6H PRN Pain, Mild (Pain Scale 1-3) Amlodipine Besylate 5 mg 03/09/20 13:36 Amlodipine Besylate 5 Mg Tablet PO 03/09/20 13:37 ONCE ONE Protocol Atorvastatin Calcium 80 mg 03/08/20 09:00 03/09/20 08:08 Atorvastatin Calcium 80 Mg Tablet PO 80 mg DAILY OKSANA Administration Enoxaparin Sodium 40 mg 03/07/20 17:00 03/08/20 17:38 Enoxaparin Sodium 40 Mg/0.4 Ml Syringe SUBCUT 40 mg Q24H OKSANA Administration Gabapentin 600 mg 03/07/20 21:00 03/09/20 13:33 Gabapentin 600 Mg Tablet PO 600 mg TID OKSANA Administration Ceftriaxone Sodium 1 gm/ 50 mls @ 100 mls/hr 03/07/20 17:00 03/08/20 18:32 Sodium Chloride IV Infused Q24H OKSANA Infusion Metronidazole 500 mg in 100 mls @ 100 mls/hr 03/07/20 17:00 03/09/20 10:51 Flagyl IV Infused Q8H OKSANA Infusion Sodium Chloride 1,000 mls @ 100 mls/hr 03/09/20 11:45 03/09/20 12:48 Ns IVCONT 100 mls/hr .Q10H OKSANA Administration Insulin Human Lispro 0 unit 03/09/20 13:00 03/09/20 13:33 Insulin Lispro 100 Unit/Ml 3 Ml Vial SUBCUT 4 unit 8XD [facility] Administration Protocol Losartan Potassium 50 mg 03/08/20 09:00 03/09/20 08:08 Losartan Potassium 50 Mg Tablet PO 50 mg DAILY [facility] Administration Protocol Morphine Sulfate 1 mg 03/09/20 09:23 03/09/20 13:33 Morphine Sulfate 2 Mg/Ml Cartridge IVPUSH 1 mg Q4H PRN Administration Pain, Severe (Pain Scale 7-10) Nortriptyline HCl 50 mg 03/07/20 21:00 03/08/20 20:58 Nortriptyline Hcl 25 Mg Capsule PO 50 mg BEDTIME OKSANA Administration Omeprazole 40 mg 03/08/20 09:00 03/09/20 08:08 Omeprazole 40 Mg Capsule.Dr PO 40 mg DAILY [facility] Administration Ondansetron HCl 4 mg 03/07/20 16:51 Ondansetron Hcl 4 Mg/2 Ml Vial IVPUSH Q8H PRN Nausea and Vomiting Pharmacy Consult 1 each 03/07/20 12:43 Consult Rx Perform Med Rec MISCELLANE ONCE PRN Consult order Sodium Chloride 3 ml 03/08/20 00:00 03/09/20 13:34 0.9 % Sodium Chloride Flush 3 Ml Syringe IVFLUSH 3 ml QSHIFT [facility] Administration Sucralfate 1 gm 03/07/20 17:00 03/09/20 13:33 Sucralfate 1 Gm Tablet PO 1 gm QID [facility] Administration Tramadol HCl 50 mg 03/07/20 16:51 Tramadol Hcl 50 Mg Tablet PO DAILY PRN Pain Trazodone HCl 100 mg 03/07/20 16:51 Trazodone Hcl 100 Mg Tablet PO BEDTIME PRN Insomnia Labs CBC & Chem 7: 03/09/20 05:36 03/09/20 11:54 Microbiology Microbiology Results: Microbiology 03/07/20 14:00 Blood - Venous Blood Culture - Preliminary No growth after 24 hours. 03/07/20 13:49 Blood - Venous Blood Culture - Preliminary No growth after 24 hours. Assessment and Plan (1) Abdominal pain: Status: Acute (2) GUNJAN (acute kidney injury): Status: Acute (3) Type 1 diabetes mellitus with hyperglycemia: Status: Acute Assessment and Plan: A 34 years old male with PMH of diabetes type 1 on insulin pump, CKD stage 3, legally blind, depression among others who presented to the hospital complaining of left lower quadrant pain associated with nausea. Abdominal pain Possibly secondary to colitis Pain has improved given LLQ pain, elevated WBCs, tachycardia negative blood cultures CT scan was done without contrast, might not show all the details of the large bowels Continue antibiotics of ceftriaxone and Flagyl GI evaluation pending Diabetic ketoacidosis Hyperglycemia secondary to diabetes +ve mild acetone 2/2 broken insulin pump Diabetic diet POC Q3, SSI Q3 IVF Gunjan on CKD new baseline for him Creatinine stable around 2 Continue gentle hydration Monitor intake and output Follow BMP Hyperkalemia 2/2 CKD, medications recieved Kayexelate monitor BMP DVT PPX Lovenox
[2020-03-09] MEDS: amLODIPine Besylate 5 MG TABLET PO (15:29)
[2020-03-09 15:35] LABS: Glucose, Whole Blood 217 mg/dL (60-115)
[2020-03-09 16:36] LABS: Glucose, Whole Blood 183 mg/dL (60-115)
[2020-03-09] MEDS: cefTRIAXone sodium 1 GM in 0.9 % Sodium Chloride 50 ML IV (18:20)
[2020-03-09] MEDS: Enoxaparin Sodium 40 MG/0.4 ML SYRINGE SUBCUT (18:21)
[2020-03-09 19:10] LABS: Glucose, Whole Blood 143 mg/dL (60-115)
[2020-03-09 19:53] LABS: CDIFF Ag Negative (Negative); CDIFF Internal ctrl Dots and bkg OK (V); CDiff Toxin Negative (Negative)
[2020-03-09] MEDS: Nortriptyline HCl 25 MG CAPSULE 50 MG PO (20:20)
[2020-03-09] MEDS: Labetalol HCL 100 MG/20 ML VIAL 10 MG IVPUSH (20:40)
[2020-03-09 21:42] LABS: Glucose, Whole Blood 147 mg/dL (60-115)
[2020-03-09] MEDS: traMADoL HCL 50 MG TABLET PO (23:05)
[2020-03-09] MEDS: ondansetron HCL 4 MG/2 ML VIAL IVPUSH (23:07)
[2020-03-10] VITALS (11 sets, daily range): BP systolic 141–190; BP diastolic 86–110; PULSE 100–119; RESP 16–18; TEMP 36.4–36.8; O2SAT 96–99
[2020-03-10] MEDS: metroNIDAZOLE/NS 500 MG/100 ML PIGGYBACK 100 MG IV ×3 (01:02→17:22)
[2020-03-10 01:13] LABS: Glucose, Whole Blood 328 mg/dL (60-115)
[2020-03-10] MEDS: Insulin Lispro 100 UNIT/ML 3 ML VIAL 8 UNIT SUBCUT (02:45)
[2020-03-10 06:10] LABS: Glucose, Whole Blood 264 mg/dL (60-115)
[2020-03-10] MEDS: Insulin Lispro 100 UNIT/ML 3 ML VIAL SUBCUT ×6 (06:13→17:23)
[2020-03-10 06:19] LABS: Hematocrit 34.3 % (42-52); Hemoglobin 11.8 g/dl (14.0-18.0); Mean Corpuscular HGB Conc 34.4 g/dl (31.0-36.0); Mean Corpuscular Hemoglobin 30.3 pg (27.0-33.0); Mean Corpuscular Volume 87.9 fL (80-98); Mean Platelet Volume 10.1 fL (9.4-12.4); Platelet Count 312 X10*3/uL (160-400); Red Cell Distribution Width 11.2 % (11.0-16.0); White Blood Count 11.9 X10*3/uL (4.8-10.8)
[2020-03-10 06:37] LABS: Anion Gap 17 (12-20); Blood Urea Nitrogen 18 mg/dL (9-16); Calcium 8.1 mg/dL (8.4-10.2); Carbon Dioxide 21 mmol/L (22-29); Chloride 100 mmol/L (96-108); Creatinine Clr Calc Pharmacy 51.9; Estimated Glomerular Filt Rate 40; Glucose Random 258 mg/dL (60-115); Potassium 4.1 mmol/l (3.3-5.1); Sodium 134 mmol/L (135-145)
[2020-03-10 07:07] LABS: Glucose, Whole Blood 254 mg/dL (60-115)
[2020-03-10] MEDS: 0.9 % Sodium Chloride 1,000 ML 100 ML IVCONT (07:23)
[2020-03-10 09:04] LABS: Glucose, Whole Blood 192 mg/dL (60-115)
[2020-03-10] MEDS: Losartan Potassium 50 MG TABLET PO (09:19)
[2020-03-10] MEDS: Gabapentin 600 MG TABLET PO ×3 (09:19→20:03)
[2020-03-10] MEDS: Omeprazole 40 MG CAPSULE.DR PO (09:19)
[2020-03-10] MEDS: Atorvastatin Calcium 80 MG TABLET PO (09:19)
[2020-03-10] MEDS: Sucralfate 1 GM TABLET PO ×4 (09:19→20:03)
[2020-03-10] MEDS: Insulin Glargine,Hum.rec.anlog 100 UNIT/ML 10 ML VIAL 10 UNIT SUBCUT (09:23)
[2020-03-10] MEDS: Morphine Sulfate 2 MG/ML CARTRIDGE 1 MG IVPUSH ×3 (09:44→20:02)
[2020-03-10 11:27] LABS: Glucose, Whole Blood 162 mg/dL (60-115)
[2020-03-10 11:55] LABS: C Reactive Protein 0.35 mg/dL (< or = 0.50)
[2020-03-10 12:35] LABS: Erythrocyte Sedimentation Rate 7 MM/HR (0-15)
[2020-03-10] MEDS: amLODIPine Besylate 5 MG TABLET PO (13:03)
[2020-03-10 13:13] LABS: Glucose, Whole Blood 152 mg/dL (60-115)
[2020-03-10 15:15] LABS: Glucose, Whole Blood 153 mg/dL (60-115)
--- NOTE | 2020-03-10 15:34 | P.PNIM_ITS ---
Subjective Subjective Date of Service: 03/10/20 Review of Systems patient was seen and evaluated this morning Laying in bed, still complaining of left lower quadrant pain Denies any fever, chills or shortness of breath Blood sugar better controlled today No reported other overnight events. Systemic review: No fever, chills or weakness No chest pain, palpitation No shortness of breath or coughing Mild left lower quadrant abdominal pain, no nausea or vomiting No urinary symptoms No any rash or wounds Physical Exam Vital Signs: Vital Signs: Last Vital Signs Temp 98.0 F 03/10/20 11:44 Pulse 117 H 03/10/20 11:44 Resp 18 03/10/20 13:55 BP 180/100 H 03/10/20 13:03 Pulse Ox 97 03/10/20 11:44 Body Mass Index 24.3 Constitutional : Alert, oriented, not in distress, legally blind Neck : Normal inspection, Supple Cardiovascular : RRR, S1 S2, no lower extremity edema Respiratory : Good bilateral air entry, no crackles, wheezes or rhonchi Gastrointestinal: soft, lax, Normal bowel sounds, left lower quadrant tenderness with deep palpation, no surgical signs, no rebound to Skin : Warm/Dry, No rash Neurological : Alert & oriented x3, No focal deficit Objective Data Current Medications Generic Name Dose Route Start Last Admin Trade Name Freq PRN Reason Stop Dose Admin Acetaminophen 650 mg 03/07/20 16:51 Acetaminophen 325 Mg Tablet PO Q6H PRN Pain, Mild (Pain Scale 1-3) Amlodipine Besylate 5 mg 03/10/20 12:40 03/10/20 13:03 Amlodipine Besylate 5 Mg Tablet PO 5 mg DAILY OKSANA Administration Protocol Atorvastatin Calcium 80 mg 03/08/20 09:00 03/10/20 09:19 Atorvastatin Calcium 80 Mg Tablet PO 80 mg DAILY OKSANA Administration Gabapentin 600 mg 03/07/20 21:00 03/10/20 15:00 Gabapentin 600 Mg Tablet PO 600 mg TID OKSANA Administration Ceftriaxone Sodium 1 gm/ 50 mls @ 100 mls/hr 03/07/20 17:00 03/09/20 21:43 Sodium Chloride IV Infused Q24H OKSANA Infusion Metronidazole 500 mg in 100 mls @ 100 mls/hr 03/07/20 17:00 03/10/20 10:43 Flagyl IV Infused Q8H [facility]SA[facility] Infusion Sodium Chloride 1,000 mls @ 100 mls/hr 03/09/20 11:45 03/10/20 09:44 Ns IVCONT 100 mls/hr .Q10H [facility]SA[facility] Infusion Insulin Glargine 10 unit 03/10/20 09:00 03/10/20 09:23 Insulin Glargine,Hum.Rec.Anlog 100 Unit/Ml 10 Ml Vial SUBCUT 10 unit DAILY OKSANA Administration Insulin Human Lispro 0 unit 03/09/20 13:00 03/10/20 15:21 Insulin Lispro 100 Unit/Ml 3 Ml Vial SUBCUT 2 unit 8XD [facility]SANA Administration Protocol Losartan Potassium 50 mg 03/08/20 09:00 03/10/20 09:19 Losartan Potassium 50 Mg Tablet PO 50 mg DAILY OKSANA Administration Protocol Morphine Sulfate 1 mg 03/09/20 09:23 03/10/20 13:55 Morphine Sulfate 2 Mg/Ml Cartridge IVPUSH 1 mg Q4H PRN Administration Pain, Severe (Pain Scale 7-10) Nortriptyline HCl 50 mg 03/07/20 21:00 03/09/20 20:20 Nortriptyline Hcl 25 Mg Capsule PO 50 mg BEDTIME OKSANA Administration Omeprazole 40 mg 03/08/20 09:00 03/10/20 09:19 Omeprazole 40 Mg Capsule.Dr PO 40 mg DAILY OKSANA Administration Ondansetron HCl 4 mg 03/07/20 16:51 03/09/20 23:07 Ondansetron Hcl 4 Mg/2 Ml Vial IVPUSH 4 mg Q8H PRN Administration Nausea and Vomiting Pharmacy Consult 1 each 03/07/20 12:43 Consult Rx Perform Med Rec MISCELLANE ONCE PRN Consult order Sodium Chloride 3 ml 03/08/20 00:00 03/10/20 14:44 0.9 % Sodium Chloride Flush 3 Ml Syringe IVFLUSH Not Given QSHIFT [facility] Sucralfate 1 gm 03/07/20 17:00 03/10/20 13:03 Sucralfate 1 Gm Tablet PO 1 gm QID OKSANA Administration Tramadol HCl 50 mg 03/07/20 16:51 03/09/20 23:05 Tramadol Hcl 50 Mg Tablet PO 50 mg DAILY PRN Administration Pain Trazodone HCl 100 mg 03/07/20 16:51 Trazodone Hcl 100 Mg Tablet PO BEDTIME PRN Insomnia Labs CBC & Chem 7: 03/10/20 05:51 03/10/20 05:51 Microbiology Microbiology Results: Microbiology 03/07/20 14:00 Blood - Venous Blood Culture - Preliminary No growth after 48 hours. 03/07/20 13:49 Blood - Venous Blood Culture - Preliminary No growth after 48 hours. Assessment and Plan (1) Abdominal pain: Status: Acute (2) GUNJAN (acute kidney injury): Status: Acute (3) Type 1 diabetes mellitus with hyperglycemia: Status: Acute (4) Sepsis: Status: Acute (5) Colitis: Status: Acute Assessment and Plan: A 34 years old male with PMH of diabetes type 1 on insulin pump, CKD stage 3, legally blind, depression among others who presented to the hospital complaining of left lower quadrant pain associated with nausea. Sepsis , resolved secondary to colitis Pain has improved negative blood cultures CT scan was done without contrast, might not show all the details of the large bowels Continue antibiotics of ceftriaxone and Flagyl GI input appreciated, continue antibiotic, will need evaluation for IBD as outpatient Diabetic ketoacidosis Hyperglycemia secondary to diabetes 2/2 broken insulin pump Anion gap closed, bicarbonate level normalized Diabetic diet POC Q3, SSI Q3 Continue IVF Uncontrolled hypertension Elevated blood pressure readings Continue home medications Start amlodipine Gunjan on CKD Resolved, new baseline for him Creatinine stable around 2 Continue gentle hydration Monitor intake and output Follow BMP Hyperkalemia 2/2 CKD, medications recieved Kayexelate monitor BMP DVT PPX Lovenox
[2020-03-10] MEDS: Labetalol HCL 100 MG TABLET 50 MG PO (16:14)
[2020-03-10] MEDS: cefTRIAXone sodium 1 GM in 0.9 % Sodium Chloride 50 ML IV (16:40)
[2020-03-10 16:56] LABS: Glucose, Whole Blood 170 mg/dL (60-115)
[2020-03-10] MEDS: Nortriptyline HCl 25 MG CAPSULE 50 MG PO (20:03)
[2020-03-10 20:50] LABS: Glucose, Whole Blood 148 mg/dL (60-115)
--- NOTE | 2020-03-10 22:27 | PM.PNNEP ---
Subjective Subjective Date of Service: 03/10/20 (pt feels ok ) Physical Exam Vital Signs: Vital Signs: Last Vital Signs Temp 97.6 F 03/10/20 21:19 Pulse 116 H 03/10/20 21:19 Resp 16 03/10/20 21:19 BP 168/90 H 03/10/20 21:19 Pulse Ox 99 03/10/20 21:19 Body Mass Index 24.3 Const: General: cooperative Orientation/consciousness: patient oriented x3 Limitations: no limitations HENMT: Head: Yes normal to inspection Ears: hearing grossly normal bilaterally General nose exam: Normal external nose present Face and sinus: Yes normal facial exam Eyes: General: appearance normal, both eyes and all related structures EOM: EOMs intact bilaterally Neck: Neck: Yes normal visual inspection Resp: Effort & Inspection: normal respiratory effort Cardio: Rate: regular rate GI: Inspection: Yes normal to inspection Palpation (GI): Soft to palpation, Tenderness to palpation present (GI) in the epigastrum and in the LLQ; with no rebound tenderness, no guarding and not rigid : General: Yes no CVA tenderness Back/Spine/Pelvis: Back: no CVA tenderness Skin: Rashes: no rashes Wounds: no wounds Neuro: General: patient oriented x3 Gait exam (Neuro): Normal gait present Extrem: General: Yes normal to inspection Objective Data Labs CBC & Chem 7: 03/10/20 05:51 03/10/20 05:51 Labs: Laboratory Results - last 24 hr 03/10/20 03/10/20 03/10/20 01:09 05:51 05:51 WBC 11.9 H RBC 3.90 L Hgb 11.8 L Hct 34.3 L MCV 87.9 MCH 30.3 MCHC 34.4 RDW 11.2 Plt Count 312 MPV 10.1 Absolute Nucleated RBC 0.000 Nucleated RBC % (auto) 0.0 ESR Sodium 134 L Potassium 4.1 Chloride 100 Carbon Dioxide 21 L Anion Gap 17 BUN 18 H Creatinine 1.92 H Estim Creat Clear Calc 51.9 Estimated GFR 40 POC Glucose 328 H Random Glucose 258 H Calcium 8.1 L C-Reactive Protein 0.35 03/10/20 03/10/20 03/10/20 05:51 06:02 07:02 WBC RBC Hgb Hct MCV MCH MCHC RDW Plt Count MPV Absolute Nucleated RBC Nucleated RBC % (auto) ESR 7 Sodium Potassium Chloride Carbon Dioxide Anion Gap BUN Creatinine Estim Creat Clear Calc Estimated GFR POC Glucose 264 H 254 H Random Glucose Calcium C-Reactive Protein 03/10/20 03/10/20 03/10/20 09:01 11:07 13:08 WBC RBC Hgb Hct MCV MCH MCHC RDW Plt Count MPV Absolute Nucleated RBC Nucleated RBC % (auto) ESR Sodium Potassium Chloride Carbon Dioxide Anion Gap BUN Creatinine Estim Creat Clear Calc Estimated GFR POC Glucose 192 H 162 H 152 H Random Glucose Calcium C-Reactive Protein 03/10/20 03/10/20 03/10/20 15:10 16:52 20:13 WBC RBC Hgb Hct MCV MCH MCHC RDW Plt Count MPV Absolute Nucleated RBC Nucleated RBC % (auto) ESR Sodium Potassium Chloride Carbon Dioxide Anion Gap BUN Creatinine Estim Creat Clear Calc Estimated GFR POC Glucose 153 H 170 H 148 H Random Glucose Calcium C-Reactive Protein Microbiology Microbiology Results: Microbiology 03/07/20 14:00 Blood - Venous Blood Culture - Preliminary No growth after 48 hours. 03/07/20 13:49 Blood - Venous Blood Culture - Preliminary No growth after 48 hours. Assessment & Plan Assessment and plan (1) Abdominal pain: Status: Acute (2) KAYODE (acute kidney injury): Status: Acute (3) Type 1 diabetes mellitus with hyperglycemia: Status: Acute (4) Sepsis: Status: Acute (5) Colitis: Status: Acute Assessment and Plan: A 34 years old male with PMH of diabetes type 1 on insulin , CKD stage 3, legally blind, depression among others who presented to the hospital complaining of left lower quadrant pain associated with nausea. 1. KAYODE -Now close to baseline 2. CKD3 3. HTN 4. Diabetic ketoacidosis IVF as ordered Agree with Starting amlodipine Creatinine stable around 2 Monitor intake and output Follow BMP Hyperkalemia- recieved Kayexelate Time Spent With Patient Time: Total time spent is greater than 50% in coordination of care (as documented) at patient's floor/unit and/or counseling patient:
[2020-03-11] VITALS (7 sets, daily range): BP systolic 135–176; BP diastolic 61–98; PULSE 100–124; RESP 18–20; TEMP 36.8–37.1; O2SAT 96–100
[2020-03-11] MEDS: 0.9 % Sodium Chloride Flush 3 ML SYRINGE IVFLUSH ×3 (01:13→18:06)
[2020-03-11] MEDS: metroNIDAZOLE/NS 500 MG/100 ML PIGGYBACK 100 MG IV ×3 (01:14→18:02)
[2020-03-11 03:39] LABS: Creatinine Urine 65.16 mg/dL; Total Protein Urine Random 453 mg/dL (<12)
[2020-03-11] MEDS: Insulin Lispro 100 UNIT/ML 3 ML VIAL SUBCUT ×7 (05:37→22:51)
[2020-03-11 05:38] LABS: Glucose, Whole Blood 234 mg/dL (60-115)
[2020-03-11] MEDS: Morphine Sulfate 2 MG/ML CARTRIDGE 1 MG IVPUSH ×2 (05:45→23:53)
[2020-03-11 06:49] LABS: Anion Gap 18 (12-20); Blood Urea Nitrogen 13 mg/dL (9-16); Calcium 8.3 mg/dL (8.4-10.2); Carbon Dioxide 22 mmol/L (22-29); Chloride 98 mmol/L (96-108); Creatinine Clr Calc Pharmacy 57.6; Estimated Glomerular Filt Rate 45; Glucose Random 232 mg/dL (60-115); Potassium 3.9 mmol/l (3.3-5.1); Sodium 134 mmol/L (135-145)
[2020-03-11 07:35] LABS: Glucose, Whole Blood 191 mg/dL (60-115)
[2020-03-11 08:13] LABS: Hematocrit 36.9 % (42-52); Hemoglobin 12.9 g/dl (14.0-18.0); Mean Corpuscular Hemoglobin 30.6 pg (27.0-33.0); Mean Corpuscular Volume 87.4 fL (80-98); Mean Platelet Volume 10.2 fL (9.4-12.4); Platelet Count 351 X10*3/uL (160-400); Red Blood Count 4.22 X10*6/uL (4.60-5.80); Red Cell Distribution Width 11.5 % (11.0-16.0); White Blood Count 12.9 X10*3/uL (4.8-10.8)
[2020-03-11] MEDS: amLODIPine Besylate 5 MG TABLET PO (09:40)
[2020-03-11] MEDS: Atorvastatin Calcium 80 MG TABLET PO (09:40)
[2020-03-11] MEDS: Gabapentin 600 MG TABLET PO ×3 (09:40→19:50)
[2020-03-11] MEDS: Omeprazole 40 MG CAPSULE.DR PO (09:40)
[2020-03-11] MEDS: Losartan Potassium 50 MG TABLET PO (09:40)
[2020-03-11] MEDS: Sucralfate 1 GM TABLET PO ×4 (09:40→19:50)
[2020-03-11] MEDS: Insulin Glargine,Hum.rec.anlog 100 UNIT/ML 10 ML VIAL 10 UNIT SUBCUT (09:41)
[2020-03-11 11:46] LABS: Glucose, Whole Blood 175 mg/dL (60-115)
--- NOTE | 2020-03-11 12:52 | HO.PM.IMPN ---
Subjective Subjective Date of Service: 03/11/20 Review of Systems patient was seen and evaluated this morning Laying in bed, still complaining of left lower quadrant pain Denies any fever, chills or shortness of breath Blood sugar better controlled today No reported other overnight events. Systemic review: No fever, chills or weakness No chest pain, palpitation No shortness of breath or coughing Mild left lower quadrant abdominal pain, no nausea or vomiting No urinary symptoms No any rash or wounds Physical Exam Vital Signs: Vital Signs: Last Vital Signs Temp 98.3 F 03/11/20 08:00 Pulse 109 H 03/11/20 08:00 Resp 18 03/11/20 08:00 BP 156/95 H 03/11/20 08:00 Pulse Ox 96 03/11/20 08:00 Body Mass Index 24.3 Const: Other: Constitutional : Alert, oriented, not in distress, legally blind Neck : Normal inspection, Supple Cardiovascular : RRR, S1 S2, no lower extremity edema Respiratory : Good bilateral air entry, no crackles, wheezes or rhonchi Gastrointestinal: soft, lax, Normal bowel sounds, left lower quadrant tenderness with deep palpation, no surgical signs, no rebound to Skin : Warm/Dry, No rash Neurological : Alert & oriented x3, No focal deficit Objective Data Current Medications Generic Name Dose Route Start Last Admin Trade Name Chemoq PRN Reason Stop Dose Admin Acetaminophen 650 mg 03/07/20 16:51 Acetaminophen 325 Mg Tablet PO Q6H PRN Pain, Mild (Pain Scale 1-3) Amlodipine Besylate 5 mg 03/10/20 12:40 03/11/20 09:40 Amlodipine Besylate 5 Mg Tablet PO 5 mg DAILY OKSANA Administration Protocol Atorvastatin Calcium 80 mg 03/08/20 09:00 03/11/20 09:40 Atorvastatin Calcium 80 Mg Tablet PO 80 mg DAILY OKSANA Administration Gabapentin 600 mg 03/07/20 21:00 03/11/20 09:40 Gabapentin 600 Mg Tablet PO 600 mg TID OKSANA Administration Ceftriaxone Sodium 1 gm/ 50 mls @ 100 mls/hr 03/07/20 17:00 03/10/20 17:16 Sodium Chloride IV Infused Q24H OKSANA Infusion Metronidazole 500 mg in 100 mls @ 100 mls/hr 03/07/20 17:00 03/11/20 11:08 Flagyl IV Infused Q8H OKSANA Infusion Insulin Glargine 10 unit 03/10/20 09:00 03/11/20 09:41 Insulin Glargine,Hum.Rec.Anlog 100 Unit/Ml 10 Ml Vial SUBCUT 10 unit DAILY OKSANA Administration Insulin Human Lispro 0 unit 03/09/20 13:00 03/11/20 12:01 Insulin Lispro 100 Unit/Ml 3 Ml Vial SUBCUT 2 unit 8XD [facility] Administration Protocol Losartan Potassium 50 mg 03/08/20 09:00 03/11/20 09:40 Losartan Potassium 50 Mg Tablet PO 50 mg DAILY OKSANA Administration Protocol Morphine Sulfate 1 mg 03/09/20 09:23 03/11/20 05:45 Morphine Sulfate 2 Mg/Ml Cartridge IVPUSH 1 mg Q4H PRN Administration Pain, Severe (Pain Scale 7-10) Nortriptyline HCl 50 mg 03/07/20 21:00 03/10/20 20:03 Nortriptyline Hcl 25 Mg Capsule PO 50 mg BEDTIME OKSANA Administration Omeprazole 40 mg 03/08/20 09:00 03/11/20 09:40 Omeprazole 40 Mg Capsule.Dr PO 40 mg DAILY [facility] Administration Ondansetron HCl 4 mg 03/07/20 16:51 03/09/20 23:07 Ondansetron Hcl 4 Mg/2 Ml Vial IVPUSH 4 mg Q8H PRN Administration Nausea and Vomiting Pharmacy Consult 1 each 03/07/20 12:43 Consult Rx Perform Med Rec MISCELLANE ONCE PRN Consult order Sodium Chloride 3 ml 03/08/20 00:00 03/11/20 09:41 0.9 % Sodium Chloride Flush 3 Ml Syringe IVFLUSH 3 ml QSHIFT [facility] Administration Sucralfate 1 gm 03/07/20 17:00 03/11/20 09:40 Sucralfate 1 Gm Tablet PO 1 gm QID [facility] Administration Tramadol HCl 50 mg 03/07/20 16:51 03/09/20 23:05 Tramadol Hcl 50 Mg Tablet PO 50 mg DAILY PRN Administration Pain Trazodone HCl 100 mg 03/07/20 16:51 Trazodone Hcl 100 Mg Tablet PO BEDTIME PRN Insomnia Labs CBC & Chem 7: 03/11/20 05:16 03/11/20 05:16 Microbiology Microbiology Results: Microbiology 03/07/20 14:00 Blood - Venous Blood Culture - Preliminary No growth after 48 hours. 03/07/20 13:49 Blood - Venous Blood Culture - Preliminary No growth after 48 hours. Assessment and Plan (1) Abdominal pain: Status: Acute (2) GUNJAN (acute kidney injury): Status: Acute (3) Type 1 diabetes mellitus with hyperglycemia: Status: Acute (4) Sepsis: Status: Acute (5) Colitis: Status: Acute Assessment and Plan: A 34 years old male with PMH of diabetes type 1 on insulin pump, CKD stage 3, legally blind, depression among others who presented to the hospital complaining of left lower quadrant pain associated with nausea. Sepsis , resolved secondary to colitis Pain has been improving negative blood cultures CT scan was done without contrast, might not show all the details of the large bowels Continue antibiotics of ceftriaxone and Flagyl GI input appreciated, continue antibiotic, will need evaluation for IBD as outpatient Diabetic ketoacidosis Hyperglycemia secondary to diabetes 2/2 broken insulin pump Anion gap closed, bicarbonate level normalized Diabetic diet POC Q3, SSI Q3 DC IVF Uncontrolled hypertension better controlled Continue home medications Start amlodipine Gunjan on CKD Resolved, new baseline for him Creatinine stable around 2 Monitor intake and output Follow BMP Hyperkalemia 2/2 CKD, medications recieved Kayexelate monitor BMP DVT PPX Lovenox
[2020-03-11 14:22] LABS: Glucose, Whole Blood 284 mg/dL (60-115)
[2020-03-11 16:54] LABS: Glucose, Whole Blood 241 mg/dL (60-115)
[2020-03-11] MEDS: cefTRIAXone sodium 1 GM in 0.9 % Sodium Chloride 50 ML IV (16:56)
[2020-03-11 17:25] LABS: OBS Int Ctl Valid YES; OBS1 NEG (NEG)
[2020-03-11] MEDS: Labetalol HCL 100 MG TABLET 50 MG PO (18:06)
[2020-03-11 19:43] LABS: Glucose, Whole Blood 200 mg/dL (60-115)
[2020-03-11] MEDS: Nortriptyline HCl 25 MG CAPSULE 50 MG PO (19:50)
--- NOTE | 2020-03-11 21:44 | P.PNNP_ITS ---
Subjective Subjective Date of Service: 03/11/20 (Pt feels better , BP has been high ) Physical Exam Vital Signs: Vital Signs: Last Vital Signs Temp 98.7 F 03/11/20 19:06 Pulse 100 03/11/20 19:06 Resp 19 03/11/20 19:06 BP 140/79 H 03/11/20 19:06 Pulse Ox 97 03/11/20 19:06 Body Mass Index 24.3 Const: General: cooperative Orientation/consciousness: patient oriented x3 Limitations: no limitations HENMT: Head: Yes normal to inspection Ears: hearing grossly normal b ilaterally General nose exam: Normal external nose present Face and sinus: Yes normal facial exam Eyes: General: appearance normal, both eyes and all related structures EOM: EOMs intact bilaterally Neck: Neck: Yes normal visual inspection Resp: Effort & Inspection: normal respiratory effort Cardio: Rate: regular rate GI: Inspection: Yes normal to inspection Palpation (GI): Soft to palpation, Tenderness to palpation present (GI) in the epigastrum and in the LLQ; with no rebound tenderness, no guarding and not rigid : General: Yes no CVA tenderness Back/Spine/Pelvis: Back: no CVA tenderness Skin: Rashes: no rashes Wounds: no wounds Neuro: General: patient oriented x3 Gait exam (Neuro): Normal gait present Extrem: General: Yes normal to inspection Objective Data Labs CBC & Chem 7: 03/11/20 05:16 03/11/20 05:16 Labs: Laboratory Results - last 24 hr 03/11/20 03/11/20 03/11/20 00:45 05:16 05:16 WBC 12.9 H RBC 4.22 L Hgb 12.9 L Hct 36.9 L MCV 87.4 MCH 30.6 MCHC 35.0 RDW 11.5 Plt Count 351 MPV 10.2 Absolute Nucleated RBC 0.000 Nucleated RBC % (auto) 0.0 Sodium 134 L Potassium 3.9 Chloride 98 Carbon Dioxide 22 Anion Gap 18 BUN 13 Creatinine 1.73 H Estim Creat Clear Calc 57.6 Estimated GFR 45 POC Glucose Random Glucose 232 H Calcium 8.3 L U Random Total Protein 453 H Urine Creatinine 65.16 Urine Microalbumin 3424.0 Microalb/Creat Ratio 5254.7 Stool Occult Blood 03/11/20 03/11/20 03/11/20 05:30 07:31 11:26 WBC RBC Hgb Hct MCV MCH MCHC RDW Plt Count MPV Absolute Nucleated RBC Nucleated RBC % (auto) Sodium Potassium Chloride Carbon Dioxide Anion Gap BUN Creatinine Estim Creat Clear Calc Estimated GFR POC Glucose 234 H 191 H 175 H Random Glucose Calcium U Random Total Protein Urine Creatinine Urine Microalbumin Microalb/Creat Ratio Stool Occult Blood 03/11/20 03/11/20 03/11/20 14:17 16:50 17:08 WBC RBC Hgb Hct MCV MCH MCHC RDW Plt Count MPV Absolute Nucleated RBC Nucleated RBC % (auto) Sodium Potassium Chloride Carbon Dioxide Anion Gap BUN Creatinine Estim Creat Clear Calc Estimated GFR POC Glucose 284 H 241 H Random Glucose Calcium U Random Total Protein Urine Creatinine Urine Microalbumin Microalb/Creat Ratio Stool Occult Blood NEG 03/11/20 19:30 WBC RBC Hgb Hct MCV MCH MCHC RDW Plt Count MPV Absolute Nucleated RBC Nucleated RBC % (auto) Sodium Potassium Chloride Carbon Dioxide Anion Gap BUN Creatinine Estim Creat Clear Calc Estimated GFR POC Glucose 200 H Random Glucose Calcium U Random Total Protein Urine Creatinine Urine Microalbumin Microalb/Creat Ratio Stool Occult Blood Microbiology Microbiology Results: Microbiology 03/07/20 14:00 Blood - Venous Blood Culture - Preliminary No growth after 48 hours. 03/07/20 13:49 Blood - Venous Blood Culture - Preliminary No growth after 48 hours. Assessment & Plan Assessment and plan (1) Abdominal pain: Status: Acute (2) KAYODE (acute kidney injury): Status: Acute (3) Type 1 diabetes mellitus with hyperglycemia: Status: Acute (4) Sepsis: Status: Acute (5) Colitis: Status: Acute Assessment and Plan: A 34 years old male with PMH of diabetes type 1 on insulin , CKD stage 3, legally blind, depression among others who presented to the hospital complaining of left lower quadrant pain associated with nausea. 1. KAYODE -Now close to baseline 2. CKD3 3. HTN 4. Diabetic ketoacidosis IV Flagyl Cr is better BP is high - agree with Amlodipine ( staretd yesterday ) , Suggest adding Clonidine patch # 1 Will need JOLIE/ ARB correction with close f/u of K and Renal func Needs out pt fu with us Time Spent With Patient Time: Total time spent is greater than 50% in coordination of care (as documented) at patient's floor/unit and/or counseling patient:
[2020-03-11 22:48] LABS: Glucose, Whole Blood 192 mg/dL (60-115)
[2020-03-12] MEDS: 0.9 % Sodium Chloride Flush 3 ML SYRINGE IVFLUSH ×2 (00:01→08:56)
[2020-03-12] MEDS: metroNIDAZOLE/NS 500 MG/100 ML PIGGYBACK 100 MG IV ×2 (00:30→08:56)
[2020-03-12 01:40] LABS: Glucose, Whole Blood 192 mg/dL (60-115)
[2020-03-12 03:56] VITALS: BP 161/74; PULSE 106; RESP 18; TEMP 37.1; O2SAT 98
[2020-03-12 05:00] LABS: Hemoglobin 12.7 g/dl (14.0-18.0); Mean Corpuscular HGB Conc 34.3 g/dl (31.0-36.0); Mean Corpuscular Hemoglobin 29.7 pg (27.0-33.0); Mean Corpuscular Volume 86.7 fL (80-98); Mean Platelet Volume 10.3 fL (9.4-12.4); Platelet Count 329 X10*3/uL (160-400); Red Blood Count 4.27 X10*6/uL (4.60-5.80); Red Cell Distribution Width 11.3 % (11.0-16.0); White Blood Count 10.6 X10*3/uL (4.8-10.8)
[2020-03-12 05:26] LABS: Anion Gap 18 (12-20); Blood Urea Nitrogen 12 mg/dL (9-16); Carbon Dioxide 22 mmol/L (22-29); Chloride 99 mmol/L (96-108); Estimated Glomerular Filt Rate 45; Glucose Random 254 mg/dL (60-115); Potassium 3.7 mmol/l (3.3-5.1); Sodium 135 mmol/L (135-145)
[2020-03-12 07:06] VITALS: BP 160/94; PULSE 114; RESP 18; TEMP 36.7; O2SAT 98
[2020-03-12 07:41] LABS: Glucose, Whole Blood 315 mg/dL (60-115)
[2020-03-12 07:41] LABS: Glucose, Whole Blood 360 mg/dL (60-115)
[2020-03-12] MEDS: Insulin Glargine,Hum.rec.anlog 100 UNIT/ML 10 ML VIAL 10 UNIT SUBCUT (07:48)
[2020-03-12] MEDS: Insulin Lispro 100 UNIT/ML 3 ML VIAL SUBCUT ×3 (07:49→12:08)
[2020-03-12 08:54] VITALS: BP 160/94; PULSE 114
[2020-03-12] MEDS: Omeprazole 40 MG CAPSULE.DR PO (08:54)
[2020-03-12] MEDS: Losartan Potassium 50 MG TABLET 100 MG PO (08:54)
[2020-03-12] MEDS: Atorvastatin Calcium 80 MG TABLET PO (08:54)
[2020-03-12 08:55] VITALS: BP 160/94; PULSE 114
[2020-03-12] MEDS: amLODIPine Besylate 5 MG TABLET PO (08:55)
[2020-03-12] MEDS: Sucralfate 1 GM TABLET PO ×2 (08:55→12:08)
[2020-03-12] MEDS: Gabapentin 600 MG TABLET PO (08:55)
[2020-03-12 09:48] LABS: Glucose, Whole Blood 253 mg/dL (60-115)
--- NOTE | 2020-03-12 10:11 | P.DS_ITS ---
DS: Providers Provider Date of Service: 03/12/20 Date of admission: 03/07/20 16:51 Primary care physician: Unknown Physician Consults: 03/08/20 15:43 Consult to Gastroenterology Routine Consulting Provider: Johanny Marquez Reason for consultation: LLQ pain and tenderness, treated as colitis for your kind evaluation 03/09/20 08:01 Consult to Nephrology Routine Consulting Provider: Pro Christianson Reason for consultation: KAYODE on CKD in DMI DS: Diagnosis Discharge Diagnosis (1) Abdominal pain: Status: Acute (2) KAYODE (acute kidney injury): Status: Acute (3) Type 1 diabetes mellitus with hyperglycemia: Status: Acute (4) Sepsis: Status: Acute (5) Colitis: Status: Acute (6) Nausea & vomiting: Status: Acute (7) DKA (diabetic ketoacidoses): Status: Acute DS: Medications Discharge Medications Home Medications: Home Medications Medication Instructions Recorded Confirmed gabapentin 600 mg tablet 600 mg PO TID 01/04/20 03/07/20 insulin pump cartridge #5 ea 01/04/20 02/27/20 losartan 50 mg tablet 50 mg PO DAILY 01/04/20 03/07/20 nortriptyline 50 mg capsule 50 mg PO BEDTIME 01/04/20 03/07/20 omeprazole 40 mg capsule,delayed 40 mg PO DAILY 01/04/20 03/07/20 release tramadol 50 mg tablet 50 mg PO DAILY PRN 01/04/20 03/07/20 trazodone 1 tab PO BEDTIME PRN 03/07/20 03/07/20 Previous Rx's Medication Instructions Recorded insulin lispro 100 unit/mL See Rx Instructions SUBCUT 12/11/19 subcutaneous solution .COMPLEX 30 Days #20 ml atorvastatin 80 mg tablet 80 mg PO DAILY #30 tab 01/04/20 sucralfate 1 gram tablet 1 g PO QID 30 Days #120 tab 02/08/20 amlodipine 5 mg PO DAILY #30 tab 03/12/20 cefuroxime axetil 500 mg PO Q12H #6 tab 03/12/20 metronidazole [Flagyl] 500 mg PO Q12H #6 tab 03/12/20 DS: Summary Hospital Course Hospital Course: Admission note HPI A 34 years old male with PMH of diabetes type 1 on insulin pump, CKD stage 3, legally blind, depression among others who presented to the hospital complaining of left lower quadrant pain associated with nausea. The patient reports that almost over the last 2 weeks since he was in [place] he started feeling abdominal pain the lower side of his abdomen which can get up to 10/10 in inten sity, pressure-like and not associated with mealtime. He reports nausea but no vomiting. He denies any change in his bowel habit. Reporting chills but no fever, no chest pain, no shortness of breath. He reports decreased oral intake over the last 2 weeks. In the emergency a CT scan without contrast for the abdomen did not show any acute findings. Reporting lymph node enlargements and para-aortic area. He was noted to have worsening kidney function. Admitted for further evaluation and treatment. Hospital course The patient was admitted to the hospital for evaluation of left lower quadrant pain associated with nausea. CT scan of the abdomen was done without contrast and did not show any acute findings. His symptoms were concerning for possible colitis as he met sepsis criteria and was treated with IV antibiotics and IV fluids with fair response over the course of hospital stay as the pain resolved and he was able to tolerate diet well. He was evaluated by ticket collector Dr. Ayala who recommended no further investigation needed at this point and continued to in you treatment as colitis with plan to follow-up as outpatient for further workup and colonoscopy for possible IBD. A new his insulin pump broken during the hospital stay and he was changed to insulin Lantus and SSI. He was noticed to have a mild DKA with positive acetone and anion gap metabolic acidosis which was treated with IV fluid and insulin with good response as the gap closed and his sugar was controlled since then during the hospital stay. Plan to go back home as he has new pump ordered for him. He was noted to have acute kidney injury on top of CKD which improved during the hospital stay with IV fluid. Nephrology to follow as outpatient. His blood pressure was noticed to be significantly elevated and amlodipine was added to his home medications with fair response. To be discharged on Ceftin and Flagyl to finish total of 7 days of antibiotics. To start amlodipine at home and check blood pressure to follow-up as outpatient with GI and Nephrology Time Spent with Patient Time attestation: Total time spent providing and/or coordinating discharge services: Discharge coordination time: Greater than 30 minutes Physical Exam Vital Signs: Vital Signs: Last Vital Signs Temp 98.0 F 03/12/20 07:06 Pulse 114 H 01/18/21 08:55 Resp 18 03/12/20 07:06 BP 160/94 H 03/12/20 08:55 Pulse Ox 98 03/12/20 07:06 Body Mass Index 24.3 Constitutional : Alert, oriented, not in distress, legally blind Neck : Normal inspection, Supple Cardiovascular : RRR, S1 S2, no lower extremity edema Respiratory : Good bilateral air entry, no crackles, wheezes or rhonchi Gastrointestinal: soft, lax, Normal bowel sounds, no surgical signs, no rebound , no tenderness Skin : Warm/Dry, No rash Neurological : Alert & oriented x3, No focal deficit DS: Data Data Completed and Pending Labs on day of discharge: Laboratory Tests 03/07/20 03/07/20 03/07/20 11:52 11:52 11:52 WBC 13.8 H RBC 5.04 Hgb 15.2 Hct 44.1 MCV 87.5 MCH 30.2 MCHC 34.5 RDW 11.5 Plt Count 346 MPV 9.8 Immature Gran % (Auto) 0.3 Neut % (Auto) 73.9 H Lymph % (Auto) 18.5 L Cecil % (Auto) 6.4 Eos % (Auto) 0.7 Baso % (Auto) 0.2 Lymph # (Auto) 2.6 Cecil # (Auto) 0.9 Eos # (Auto) 0.1 Baso # (Auto) 0.0 Abs Immat Gran (auto) 0.04 H Absolute Neuts (auto) 10.2 H Absolute Nucleated RBC 0.000 Nucleated RBC % (auto) 0.0 ESR Hold Blue Top SEE NOTE Sodium 135 Potassium 4.2 Chloride 94 L Carbon Dioxide 30 H Anion Gap 15 BUN 19 H Creatinine 2.21 H Estim Creat Clear Calc 45.1 Estimated GFR 34 POC Glucose Random Glucose 202 H Lactic Acid Calcium 9.1 Phosphorus Magnesium 1.8 Total Bilirubin 0.7 Direct Bilirubin 0.3 AST 13 ALT 14 Alkaline Phosphatase 87 C-Reactive Protein Total Protein 6.4 L Albumin 3.6 Lipase 14 25-OH Vitamin D Total Urine Color Urine Appearance Urine pH Ur Specific [place] Urine Protein Urine Glucose (UA) Urine Ketones Urine Blood Urine Nitrite Ur Leukocyte Esterase Urine RBC Urine WBC Ur Squamous Epith Cells Urine Bacteria Urine Mucus U Random Total Protein Urine Creatinine Urine Microalbumin Microalb/Creat Ratio Stool Occult Blood Urine Opiates Screen Ur Barbiturates Screen Ur Phencyclidine Scrn Ur Amphetamines Screen U Benzodiazepines Scrn Urine Cocaine Screen U Marijuana (THC) Screen Acetone, Qual C. difficile Toxin A&B C. difficile Antigen C. difficile Interpret COVID-19 (SABINE) COVID-19 Goal Zero Com 03/07/20 03/07/20 03/07/20 13:49 13:50 14:41 WBC RBC Hgb Hct MCV MCH MCHC RDW Plt Count MPV Immature Gran % (Auto) Neut % (Auto) Lymph % (Auto) Cecil % (Auto) Eos % (Auto) Baso % (Auto) Lymph # (Auto) [place] # (Auto) Eos # (Auto) Baso # (Auto) Abs Immat Gran (auto) Absolute Neuts (auto) Absolute Nucleated RBC Nucleated RBC % (auto) ESR Hold Blue Top Sodium Potassium Chloride Carbon Dioxide Anion Gap BUN Creatinine Estim Creat Clear Calc Estimated GFR POC Glucose Random Glucose Lactic Acid 1.0 Calcium Phosphorus Magnesium Total Bilirubin Direct Bilirubin AST ALT Alkaline Phosphatase C-Reactive Protein Total Protein Albumin Lipase 25-OH Vitamin D Total Urine Color YELLOW Urine Appearance HAZY Urine pH 8.5 H Ur Specific [place] 1.020 Urine Protein 2+ H Urine Glucose (UA) 100 H Urine Ketones 15 Urine Blood NEG Urine Nitrite NEG Ur Leukocyte Esterase NEG Urine RBC 1-4 Urine WBC 1-4 Ur Squamous Epith Cells TRACE Urine Bacteria NONE Urine Mucus TRACE U Random Total Protein Urine Creatinine Urine Microalbumin Microalb/Creat Ratio Stool Occult Blood Urine Opiates Screen Ur Barbiturates Screen Ur Phencyclidine Scrn Ur Amphetamines Screen U Benzodiazepines Scrn Urine Cocaine Screen U Marijuana (THC) Screen Acetone, Qual C. difficile Toxin A&B C. difficile Antigen C. difficile Interpret COVID-19 (SABINE) Negative COVID-19 [employer] See Note 03/07/20 03/08/20 03/08/20 14:41 00:48 05:21 WBC RBC Hgb Hct MCV MCH MCHC RDW Plt Count MPV Immature Gran % (Auto) Neut % (Auto) Lymph % (Auto) Cecil % (Auto) Eos % (Auto) Baso % (Auto) Lymph # (Auto) [place] # (Auto) Eos # (Auto) Baso # (Auto) Abs Immat Gran (auto) Absolute Neuts (auto) Absolute Nucleated RBC Nucleated RBC % (auto) ESR Hold Blue Top Sodium 134 L Potassium 4.9 Chloride 98 Carbon Dioxide 27 Anion Gap 14 BUN 21 H Creatinine 2.27 H Estim Creat Clear Calc 43.9 Estimated GFR 33 POC Glucose 237 H Random Glucose 234 H Lactic Acid Calcium 8.5 D Phosphorus Magnesium Total Bilirubin 0.5 Direct Bilirubin 0.3 AST 11 ALT 11 Alkaline Phosphatase 81 C-Reactive Protein Total Protein 5.8 L Albumin 3.1 L Lipase 25-OH Vitamin D Total Urine Color Urine Appearance Urine pH Ur Specific [place] Urine Protein Urine Glucose (UA) Urine Ketones Urine Blood Urine Nitrite Ur Leukocyte Esterase Urine RBC Urine WBC Ur Squamous Epith Cells Urine Bacteria Urine Mucus U Random Total Protein Urine Creatinine Urine Microalbumin Microalb/Creat Ratio Stool Occult Blood Urine Opiates Screen Not Detected Ur Barbiturates Screen Not Detected Ur Phencyclidine Scrn Not Detected Ur Amphetamines Screen Not Detected U Benzodiazepines Scrn Not Detected Urine Cocaine Screen Not Detected U Marijuana (THC) Screen POSITIVE H Acetone, Qual C. difficile Toxin A&B C. difficile Antigen C. difficile Interpret COVID-19 (SABINE) COVID-19 Clin Com 03/08/20 03/08/20 03/08/20 05:21 07:41 11:27 WBC 15.1 H RBC 4.54 L Hgb 14.2 Hct 40.0 L MCV 88.1 MCH 31.3 MCHC 35.5 RDW 11.3 Plt Count 355 MPV 10.1 Immature Gran % (Auto) Neut % (Auto) Lymph % (Auto) [place] % (Auto) Eos % (Auto) Baso % (Auto) Lymph # (Auto) [place] # (Auto) Eos # (Auto) Baso # (Auto) Abs Immat Gran (auto) Absolute Neuts (auto) Absolute Nucleated RBC 0.000 Nucleated RBC % (auto) 0.0 ESR Hold Blue Top Sodium Potassium Chloride Carbon Dioxide Anion Gap BUN Creatinine Estim Creat Clear Calc Estimated GFR POC Glucose 200 H 234 H Random Glucose Lactic Acid Calcium Phosphorus Magnesium Total Bilirubin Direct Bilirubin AST ALT Alkaline Phosphatase C-Reactive Protein Total Protein Albumin Lipase 25-OH Vitamin D Total Urine Color Urine Appearance Urine pH Ur Specific [place] Urine Protein Urine Glucose (UA) Urine Ketones Urine Blood Urine Nitrite Ur Leukocyte Esterase Urine RBC Urine WBC Ur Squamous Epith Cells Urine Bacteria Urine Mucus U Random Total Protein Urine Creatinine Urine Microalbumin Microalb/Creat Ratio Stool Occult Blood Urine Opiates Screen Ur Barbiturates Screen Ur Phencyclidine Scrn Ur Amphetamines Screen U Benzodiazepines Scrn Urine Cocaine Screen U Marijuana (THC) Screen Acetone, Qual C. difficile Toxin A&B C. difficile Antigen C. difficile Interpret COVID-19 (SABINE) COVID-19 [employer] 03/08/20 03/08/20 03/08/20 15:46 19:26 19:35 WBC RBC Hgb Hct MCV MCH MCHC RDW Plt Count MPV Immature Gran % (Auto) Neut % (Auto) Lymph % (Auto) [place] % (Auto) Eos % (Auto) Baso % (Auto) Lymph # (Auto) [place] # (Auto) Eos # (Auto) Baso # (Auto) Abs Immat Gran (auto) Absolute Neuts (auto) Absolute Nucleated RBC Nucleated RBC % (auto) ESR Hold Blue Top Sodium Potassium Chloride Carbon Dioxide Anion Gap BUN Creatinine Estim Creat Clear Calc Estimated GFR POC Glucose 269 H 247 H 264 H Random Glucose Lactic Acid Calcium Phosphorus Magnesium Total Bilirubin Direct Bilirubin AST ALT Alkaline Phosphatase C-Reactive Protein Total Protein Albumin Lipase 25-OH Vitamin D Total Urine Color Urine Appearance Urine pH Ur Specific [place] Urine Protein Urine Glucose (UA) Urine Ketones Urine Blood Urine Nitrite Ur Leukocyte Esterase Urine RBC Urine WBC Ur Squamous Epith Cells Urine Bacteria Urine Mucus U Random Total Protein Urine Creatinine Urine Microalbumin Microalb/Creat Ratio Stool Occult Blood Urine Opiates Screen Ur Barbiturates Screen Ur Phencyclidine Scrn Ur Amphetamines Screen U Benzodiazepines Scrn Urine Cocaine Screen U Marijuana (THC) Screen Acetone, Qual C. difficile Toxin A&B C. difficile Antigen C. difficile Interpret COVID-19 (SABINE) COVID-19 Goal Zero Com 03/09/20 03/09/20 03/09/20 03:09 04:48 05:36 WBC 15.9 H RBC 4.58 L Hgb 13.8 L Hct 40.7 L MCV 88.9 MCH 30.1 MCHC 33.9 RDW 11.3 Plt Count 336 MPV 10.6 Immature Gran % (Auto) Neut % (Auto) Lymph % (Auto) [place] % (Auto) Eos % (Auto) Baso % (Auto) Lymph # (Auto) [place] # (Auto) Eos # (Auto) Baso # (Auto) Abs Immat Gran (auto) Absolute Neuts (auto) Absolute Nucleated RBC 0.000 Nucleated RBC % (auto) 0.0 ESR Hold Blue Top Sodium Potassium Chloride Carbon Dioxide Anion Gap BUN Creatinine Estim Creat Clear Calc Estimated GFR POC Glucose 322 H 377 H* Random Glucose Lactic Acid Calcium Phosphorus Magnesium Total Bilirubin Direct Bilirubin AST ALT Alkaline Phosphatase C-Reactive Protein Total Protein Albumin Lipase 25-OH Vitamin D Total Urine Color Urine Appearance Urine pH Ur Specific [place] Urine Protein Urine Glucose (UA) Urine Ketones Urine Blood Urine Nitrite Ur Leukocyte Esterase Urine RBC Urine WBC Ur Squamous Epith Cells Urine Bacteria Urine Mucus U Random Total Protein Urine Creatinine Urine Microalbumin Microalb/Creat Ratio Stool Occult Blood Urine Opiates Screen Ur Barbiturates Screen Ur Phencyclidine Scrn Ur Amphetamines Screen U Benzodiazepines Scrn Urine Cocaine Screen U Marijuana (THC) Screen Acetone, Qual C. difficile Toxin A&B C. difficile Antigen C. difficile Interpret COVID-19 (SABINE) COVID-Narvalous 03/09/20 03/09/20 03/09/20 05:36 07:43 08:20 WBC RBC Hgb Hct MCV MCH MCHC RDW Plt Count MPV Immature Gran % (Auto) Neut % (Auto) Lymph % (Auto) [place] % (Auto) Eos % (Auto) Baso % (Auto) Lymph # (Auto) [place] # (Auto) Eos # (Auto) Baso # (Auto) Abs Immat Gran (auto) Absolute Neuts (auto) Absolute Nucleated RBC Nucleated RBC % (auto) ESR Hold Blue Top Sodium 133 L Potassium 5.4 H Chloride 97 Carbon Dioxide 18 L Anion Gap 23 H BUN 23 H Creatinine 2.31 H Estim Creat Clear Calc 43.1 Estimated GFR 32 POC Glucose 295 H Random Glucose 414 H* Lactic Acid Calcium 8.4 Phosphorus Magnesium Total Bilirubin Direct Bilirubin AST ALT Alkaline Phosphatase C-Reactive Protein Total Protein Albumin Lipase 25-OH Vitamin D Total Urine Color Urine Appearance Urine pH Ur Specific [place] Urine Protein Urine Glucose (UA) Urine Ketones Urine Blood Urine Nitrite Ur Leukocyte Esterase Urine RBC Urine WBC Ur Squamous Epith Cells Urine Bacteria Urine Mucus U Random Total Protein Urine Creatinine Urine Microalbumin Microalb/Creat Ratio Stool Occult Blood Urine Opiates Screen Ur Barbiturates Screen Ur Phencyclidine Scrn Ur Amphetamines Screen U Benzodiazepines Scrn Urine Cocaine Screen U Marijuana (THC) Screen Acetone, Qual Small H C. difficile Toxin A&B C. difficile Antigen C. difficile Interpret COVID-19 (SABINE) COVID-19 [employer] 03/09/20 03/09/20 03/09/20 08:20 08:20 11:54 WBC RBC Hgb Hct MCV MCH MCHC RDW Plt Count MPV Immature Gran % (Auto) Neut % (Auto) Lymph % (Auto) [place] % (Auto) Eos % (Auto) Baso % (Auto) Lymph # (Auto) [place] # (Auto) Eos # (Auto) Baso # (Auto) Abs Immat Gran (auto) Absolute Neuts (auto) Absolute Nucleated RBC Nucleated RBC % (auto) ESR Hold Blue Top Sodium Potassium Chloride Carbon Dioxide Anion Gap BUN Creatinine Estim Creat Clear Calc Estimated GFR POC Glucose Random Glucose Lactic Acid 1.2 Calcium Phosphorus 3.4 Magnesium Total Bilirubin Direct Bilirubin AST ALT Alkaline Phosphatase C-Reactive Protein Total Protein Albumin Lipase 25-OH Vitamin D Total 19.8 Urine Color Urine Appearance Urine pH Ur Specific [place] Urine Protein Urine Glucose (UA) Urine Ketones Urine Blood Urine Nitrite Ur Leukocyte Esterase Urine RBC Urine WBC Ur Squamous Epith Cells Urine Bacteria Urine Mucus U Random Total Protein Urine Creatinine Urine Microalbumin Microalb/Creat Ratio Stool Occult Blood Urine Opiates Screen Ur Barbiturates Screen Ur Phencyclidine Scrn Ur Amphetamines Screen U Benzodiazepines Scrn Urine Cocaine Screen U Marijuana (THC) Screen Acetone, Qual Cancelled C. difficile Toxin A&B C. difficile Antigen C. difficile Interpret COVID-19 (SABINE) COVID-19 Clin Com 03/09/20 03/09/20 03/09/20 11:54 12:39 15:31 WBC RBC Hgb Hct MCV MCH MCHC RDW Plt Count MPV Immature Gran % (Auto) Neut % (Auto) Lymph % (Auto) [place] % (Auto) Eos % (Auto) Baso % (Auto) Lymph # (Auto) [place] # (Auto) Eos # (Auto) Baso # (Auto) Abs Immat Gran (auto) Absolute Neuts (auto) Absolute Nucleated RBC Nucleated RBC % (auto) ESR Hold Blue Top Sodium 133 L Potassium 4.7 Chloride 99 Carbon Dioxide 22 Anion Gap 17 BUN 23 H Creatinine 2.13 H Estim Creat Clear Calc 46.8 Estimated GFR 36 POC Glucose 213 H 217 H Random Glucose 204 H D Lactic Acid Calcium 8.4 Phosphorus Magnesium Total Bilirubin Direct Bilirubin AST ALT Alkaline Phosphatase C-Reactive Protein Total Protein Albumin Lipase 25-OH Vitamin D Total Urine Color Urine Appearance Urine pH Ur Specific [place] Urine Protein Urine Glucose (UA) Urine Ketones Urine Blood Urine Nitrite Ur Leukocyte Esterase Urine RBC Urine WBC Ur Squamous Epith Cells Urine Bacteria Urine Mucus U Random Total Protein Urine Creatinine Urine Microalbumin Microalb/Creat Ratio Stool Occult Blood Urine Opiates Screen Ur Barbiturates Screen Ur Phencyclidine Scrn Ur Amphetamines Screen U Benzodiazepines Scrn Urine Cocaine Screen U Marijuana (THC) Screen Acetone, Qual C. difficile Toxin A&B C. difficile Antigen C. difficile Interpret COVID-19 (SABINE) COVID-19 Goal Zero Com 03/09/20 03/09/20 03/09/20 16:28 18:45 19:05 WBC RBC Hgb Hct MCV MCH MCHC RDW Plt Count MPV Immature Gran % (Auto) Neut % (Auto) Lymph % (Auto) [place] % (Auto) Eos % (Auto) Baso % (Auto) Lymph # (Auto) [place] # (Auto) Eos # (Auto) Baso # (Auto) Abs Immat Gran (auto) Absolute Neuts (auto) Absolute Nucleated RBC Nucleated RBC % (auto) ESR Hold Blue Top Sodium Potassium Chloride Carbon Dioxide Anion Gap BUN Creatinine Estim Creat Clear Calc Estimated GFR POC Glucose 183 H 143 H Random Glucose Lactic Acid Calcium Phosphorus Magnesium Total Bilirubin Direct Bilirubin AST ALT Alkaline Phosphatase C-Reactive Protein Total Protein Albumin Lipase 25-OH Vitamin D Total Urine Color Urine Appearance Urine pH Ur Specific [place] Urine Protein Urine Glucose (UA) Urine Ketones Urine Blood Urine Nitrite Ur Leukocyte Esterase Urine RBC Urine WBC Ur Squamous Epith Cells Urine Bacteria Urine Mucus U Random Total Protein Urine Creatinine Urine Microalbumin Microalb/Creat Ratio Stool Occult Blood Urine Opiates Screen Ur Barbiturates Screen Ur Phencyclidine Scrn Ur Amphetamines Screen U Benzodiazepines Scrn Urine Cocaine Screen U Marijuana (THC) Screen Acetone, Qual C. difficile Toxin A&B Negative C. difficile Antigen Negative C. difficile Interpret SEE NOTE COVID-19 (SABINE) COVID-19 Goal Zero Com 03/09/20 03/10/20 03/10/20 21:38 01:09 05:51 WBC 11.9 H RBC 3.90 L Hgb 11.8 L Hct 34.3 L MCV 87.9 MCH 30.3 MCHC 34.4 RDW 11.2 Plt Count 312 MPV 10.1 Immature Gran % (Auto) Neut % (Auto) Lymph % (Auto) [place] % (Auto) Eos % (Auto) Baso % (Auto) Lymph # (Auto) [place] # (Auto) Eos # (Auto) Baso # (Auto) Abs Immat Gran (auto) Absolute Neuts (auto) Absolute Nucleated RBC 0.000 Nucleated RBC % (auto) 0.0 ESR Hold Blue Top Sodium Potassium Chloride Carbon Dioxide Anion Gap BUN Creatinine Estim Creat Clear Calc Estimated GFR POC Glucose 147 H 328 H Random Glucose Lactic Acid Calcium Phosphorus Magnesium Total Bilirubin Direct Bilirubin AST ALT Alkaline Phosphatase C-Reactive Protein Total Protein Albumin Lipase 25-OH Vitamin D Total Urine Color Urine Appearance Urine pH Ur Specific [place] Urine Protein Urine Glucose (UA) Urine Ketones Urine Blood Urine Nitrite Ur Leukocyte Esterase Urine RBC Urine WBC Ur Squamous Epith Cells Urine Bacteria Urine Mucus U Random Total Protein Urine Creatinine Urine Microalbumin Microalb/Creat Ratio Stool Occult Blood Urine Opiates Screen Ur Barbiturates Screen Ur Phencyclidine Scrn Ur Amphetamines Screen U Benzodiazepines Scrn Urine Cocaine Screen U Marijuana (THC) Screen Acetone, Qual C. difficile Toxin A&B C. difficile Antigen C. difficile Interpret COVID-19 (SABINE) COVID-19 Clin Com 03/10/20 03/10/20 03/10/20 05:51 05:51 06:02 WBC RBC Hgb Hct MCV MCH MCHC RDW Plt Count MPV Immature Gran % (Auto) Neut % (Auto) Lymph % (Auto) [place] % (Auto) Eos % (Auto) Baso % (Auto) Lymph # (Auto) [place] # (Auto) Eos # (Auto) Baso # (Auto) Abs Immat Gran (auto) Absolute Neuts (auto) Absolute Nucleated RBC Nucleated RBC % (auto) ESR 7 Hold Blue Top Sodium 134 L Potassium 4.1 Chloride 100 Carbon Dioxide 21 L Anion Gap 17 BUN 18 H Creatinine 1.92 H Estim Creat Clear Calc 51.9 Estimated GFR 40 POC Glucose 264 H Random Glucose 258 H Lactic Acid Calcium 8.1 L Phosphorus Magnesium Total Bilirubin Direct Bilirubin AST ALT Alkaline Phosphatase C-Reactive Protein 0.35 Total Protein Albumin Lipase 25-OH Vitamin D Total Urine Color Urine Appearance Urine pH Ur Specific [place] Urine Protein Urine Glucose (UA) Urine Ketones Urine Blood Urine Nitrite Ur Leukocyte Esterase Urine RBC Urine WBC Ur Squamous Epith Cells Urine Bacteria Urine Mucus U Random Total Protein Urine Creatinine Urine Microalbumin Microalb/Creat Ratio Stool Occult Blood Urine Opiates Screen Ur Barbiturates Screen Ur Phencyclidine Scrn Ur Amphetamines Screen U Benzodiazepines Scrn Urine Cocaine Screen U Marijuana (THC) Screen Acetone, Qual C. difficile Toxin A&B C. difficile Antigen C. difficile Interpret COVID-19 (SABINE) COVID-19 Goal Zero Com 03/10/20 03/10/20 03/10/20 07:02 09:01 11:07 WBC RBC Hgb Hct MCV MCH MCHC RDW Plt Count MPV Immature Gran % (Auto) Neut % (Auto) Lymph % (Auto) [place] % (Auto) Eos % (Auto) Baso % (Auto) Lymph # (Auto) [place] # (Auto) Eos # (Auto) Baso # (Auto) Abs Immat Gran (auto) Absolute Neuts (auto) Absolute Nucleated RBC Nucleated RBC % (auto) ESR Hold Blue Top Sodium Potassium Chloride Carbon Dioxide Anion Gap BUN Creatinine Estim Creat Clear Calc Estimated GFR POC Glucose 254 H 192 H 162 H Random Glucose Lactic Acid Calcium Phosphorus Magnesium Total Bilirubin Direct Bilirubin AST ALT Alkaline Phosphatase C-Reactive Protein Total Protein Albumin Lipase 25-OH Vitamin D Total Urine Color Urine Appearance Urine pH Ur Specific [place] Urine Protein Urine Glucose (UA) Urine Ketones Urine Blood Urine Nitrite Ur Leukocyte Esterase Urine RBC Urine WBC Ur Squamous Epith Cells Urine Bacteria Urine Mucus U Random Total Protein Urine Creatinine Urine Microalbumin Microalb/Creat Ratio Stool Occult Blood Urine Opiates Screen Ur Barbiturates Screen Ur Phencyclidine Scrn Ur Amphetamines Screen U Benzodiazepines Scrn Urine Cocaine Screen U Marijuana (THC) Screen Acetone, Qual C. difficile Toxin A&B C. difficile Antigen C. difficile Interpret COVID-19 (SABINE) COVID-19 Goal Zero Com 03/10/20 03/10/20 03/10/20 13:08 15:10 16:52 WBC RBC Hgb Hct MCV MCH MCHC RDW Plt Count MPV Immature Gran % (Auto) Neut % (Auto) Lymph % (Auto) [place] % (Auto) Eos % (Auto) Baso % (Auto) Lymph # (Auto) [place] # (Auto) Eos # (Auto) Baso # (Auto) Abs Immat Gran (auto) Absolute Neuts (auto) Absolute Nucleated RBC Nucleated RBC % (auto) ESR Hold Blue Top Sodium Potassium Chloride Carbon Dioxide Anion Gap BUN Creatinine Estim Creat Clear Calc Estimated GFR POC Glucose 152 H 153 H 170 H Random Glucose Lactic Acid Calcium Phosphorus Magnesium Total Bilirubin Direct Bilirubin AST ALT Alkaline Phosphatase C-Reactive Protein Total Protein Albumin Lipase 25-OH Vitamin D Total Urine Color Urine Appearance Urine pH Ur Specific [place] Urine Protein Urine Glucose (UA) Urine Ketones Urine Blood Urine Nitrite Ur Leukocyte Esterase Urine RBC Urine WBC Ur Squamous Epith Cells Urine Bacteria Urine Mucus U Random Total Protein Urine Creatinine Urine Microalbumin Microalb/Creat Ratio Stool Occult Blood Urine Opiates Screen Ur Barbiturates Screen Ur Phencyclidine Scrn Ur Amphetamines Screen U Benzodiazepines Scrn Urine Cocaine Screen U Marijuana (THC) Screen Acetone, Qual C. difficile Toxin A&B C. difficile Antigen C. difficile Interpret COVID-19 (SABINE) COVID-19 Goal Zero Com 03/10/20 03/11/20 03/11/20 20:13 00:45 05:16 WBC RBC Hgb Hct MCV MCH MCHC RDW Plt Count MPV Immature Gran % (Auto) Neut % (Auto) Lymph % (Auto) [place] % (Auto) Eos % (Auto) Baso % (Auto) Lymph # (Auto) Cecil # (Auto) Eos # (Auto) Baso # (Auto) Abs Immat Gran (auto) Absolute Neuts (auto) Absolute Nucleated RBC Nucleated RBC % (auto) ESR Hold Blue Top Sodium 134 L Potassium 3.9 Chloride 98 Carbon Dioxide 22 Anion Gap 18 BUN 13 Creatinine 1.73 H Estim Creat Clear Calc 57.6 Estimated GFR 45 POC Glucose 148 H Random Glucose 232 H Lactic Acid Calcium 8.3 L Phosphorus Magnesium Total Bilirubin Direct Bilirubin AST ALT Alkaline Phosphatase C-Reactive Protein Total Protein Albumin Lipase 25-OH Vitamin D Total Urine Color Urine Appearance Urine pH Ur Specific [place] Urine Protein Urine Glucose (UA) Urine Ketones Urine Blood Urine Nitrite Ur Leukocyte Esterase Urine RBC Urine WBC Ur Squamous Epith Cells Urine Bacteria Urine Mucus U Random Total Protein 453 H Urine Creatinine 65.16 Urine Microalbumin 3424.0 Microalb/Creat Ratio 5254.7 Stool Occult Blood Urine Opiates Screen Ur Barbiturates Screen Ur Phencyclidine Scrn Ur Amphetamines Screen U Benzodiazepines Scrn Urine Cocaine Screen U Marijuana (THC) Screen Acetone, Qual C. difficile Toxin A&B C. difficile Antigen C. difficile Interpret COVID-19 (SABINE) COVID-19 Clin Com 03/11/20 03/11/20 03/11/20 05:16 05:30 07:31 WBC 12.9 H RBC 4.22 L Hgb 12.9 L Hct 36.9 L MCV 87.4 MCH 30.6 MCHC 35.0 RDW 11.5 Plt Count 351 MPV 10.2 Immature Gran % (Auto) Neut % (Auto) Lymph % (Auto) Cecil % (Auto) Eos % (Auto) Baso % (Auto) Lymph # (Auto) Cecil # (Auto) Eos # (Auto) Baso # (Auto) Abs Immat Gran (auto) Absolute Neuts (auto) Absolute Nucleated RBC 0.000 Nucleated RBC % (auto) 0.0 ESR Hold Blue Top Sodium Potassium Chloride Carbon Dioxide Anion Gap BUN Creatinine Estim Creat Clear Calc Estimated GFR POC Glucose 234 H 191 H Random Glucose Lactic Acid Calcium Phosphorus Magnesium Total Bilirubin Direct Bilirubin AST ALT Alkaline Phosphatase C-Reactive Protein Total Protein Albumin Lipase 25-OH Vitamin D Total Urine Color Urine Appearance Urine pH Ur Specific [place] Urine Protein Urine Glucose (UA) Urine Ketones Urine Blood Urine Nitrite Ur Leukocyte Esterase Urine RBC Urine WBC Ur Squamous Epith Cells Urine Bacteria Urine Mucus U Random Total Protein Urine Creatinine Urine Microalbumin Microalb/Creat Ratio Stool Occult Blood Urine Opiates Screen Ur Barbiturates Screen Ur Phencyclidine Scrn Ur Amphetamines Screen U Benzodiazepines Scrn Urine Cocaine Screen U Marijuana (THC) Screen Acetone, Qual C. difficile Toxin A&B C. difficile Antigen C. difficile Interpret COVID-19 (SABINE) COVID-19 Clin Com 03/11/20 03/11/20 03/11/20 11:26 14:17 16:50 WBC RBC Hgb Hct MCV MCH MCHC RDW Plt Count MPV Immature Gran % (Auto) Neut % (Auto) Lymph % (Auto) Cecil % (Auto) Eos % (Auto) Baso % (Auto) Lymph # (Auto) Cecil # (Auto) Eos # (Auto) Baso # (Auto) Abs Immat Gran (auto) Absolute Neuts (auto) Absolute Nucleated RBC Nucleated RBC % (auto) ESR Hold Blue Top Sodium Potassium Chloride Carbon Dioxide Anion Gap BUN Creatinine Estim Creat Clear Calc Estimated GFR POC Glucose 175 H 284 H 241 H Random Glucose Lactic Acid Calcium Phosphorus Magnesium Total Bilirubin Direct Bilirubin AST ALT Alkaline Phosphatase C-Reactive Protein Total Protein Albumin Lipase 25-OH Vitamin D Total Urine Color Urine Appearance Urine pH Ur Specific [place] Urine Protein Urine Glucose (UA) Urine Ketones Urine Blood Urine Nitrite Ur Leukocyte Esterase Urine RBC Urine WBC Ur Squamous Epith Cells Urine Bacteria Urine Mucus U Random Total Protein Urine Creatinine Urine Microalbumin Microalb/Creat Ratio Stool Occult Blood Urine Opiates Screen Ur Barbiturates Screen Ur Phencyclidine Scrn Ur Amphetamines Screen U Benzodiazepines Scrn Urine Cocaine Screen U Marijuana (THC) Screen Acetone, Qual C. difficile Toxin A&B C. difficile Antigen C. difficile Interpret COVID-19 (SABINE) COVID-19 Clin Com 03/11/20 03/11/20 03/11/20 17:08 19:30 22:45 WBC RBC Hgb Hct MCV MCH MCHC RDW Plt Count MPV Immature Gran % (Auto) Neut % (Auto) Lymph % (Auto) Cecil % (Auto) Eos % (Auto) Baso % (Auto) Lymph # (Auto) [place] # (Auto) Eos # (Auto) Baso # (Auto) Abs Immat Gran (auto) Absolute Neuts (auto) Absolute Nucleated RBC Nucleated RBC % (auto) ESR Hold Blue Top Sodium Potassium Chloride Carbon Dioxide Anion Gap BUN Creatinine Estim Creat Clear Calc Estimated GFR POC Glucose 200 H 192 H Random Glucose Lactic Acid Calcium Phosphorus Magnesium Total Bilirubin Direct Bilirubin AST ALT Alkaline Phosphatase C-Reactive Protein Total Protein Albumin Lipase 25-OH Vitamin D Total Urine Color Urine Appearance Urine pH Ur Specific [place] Urine Protein Urine Glucose (UA) Urine Ketones Urine Blood Urine Nitrite Ur Leukocyte Esterase Urine RBC Urine WBC Ur Squamous Epith Cells Urine Bacteria Urine Mucus U Random Total Protein Urine Creatinine Urine Microalbumin Microalb/Creat Ratio Stool Occult Blood NEG Urine Opiates Screen Ur Barbiturates Screen Ur Phencyclidine Scrn Ur Amphetamines Screen U Benzodiazepines Scrn Urine Cocaine Screen U Marijuana (THC) Screen Acetone, Qual C. difficile Toxin A&B C. difficile Antigen C. difficile Interpret COVID-19 (SABINE) COVID-19 Clin Com 03/12/20 03/12/20 03/12/20 01:36 04:03 04:03 WBC 10.6 RBC 4.27 L Hgb 12.7 L Hct 37.0 L MCV 86.7 MCH 29.7 MCHC 34.3 RDW 11.3 Plt Count 329 MPV 10.3 Immature Gran % (Auto) Neut % (Auto) Lymph % (Auto) Cecil % (Auto) Eos % (Auto) Baso % (Auto) Lymph # (Auto) [place] # (Auto) Eos # (Auto) Baso # (Auto) Abs Immat Gran (auto) Absolute Neuts (auto) Absolute Nucleated RBC 0.000 Nucleated RBC % (auto) 0.0 ESR Hold Blue Top Sodium 135 Potassium 3.7 Chloride 99 Carbon Dioxide 22 Anion Gap 18 BUN 12 Creatinine 1.75 H Estim Creat Clear Calc 57.0 Estimated GFR 45 POC Glucose 192 H Random Glucose 254 H Lactic Acid Calcium 8.0 L Phosphorus Magnesium Total Bilirubin Direct Bilirubin AST ALT Alkaline Phosphatase C-Reactive Protein Total Protein Albumin Lipase 25-OH Vitamin D Total Urine Color Urine Appearance Urine pH Ur Specific [place] Urine Protein Urine Glucose (UA) Urine Ketones Urine Blood Urine Nitrite Ur Leukocyte Esterase Urine RBC Urine WBC Ur Squamous Epith Cells Urine Bacteria Urine Mucus U Random Total Protein Urine Creatinine Urine Microalbumin Microalb/Creat Ratio Stool Occult Blood Urine Opiates Screen Ur Barbiturates Screen Ur Phencyclidine Scrn Ur Amphetamines Screen U Benzodiazepines Scrn Urine Cocaine Screen U Marijuana (THC) Screen Acetone, Qual C. difficile Toxin A&B C. difficile Antigen C. difficile Interpret COVID-19 (SABINE) COVID-Narvalous 03/12/20 03/12/20 03/12/20 07:05 07:37 09:45 WBC RBC Hgb Hct MCV MCH MCHC RDW Plt Count MPV Immature Gran % (Auto) Neut % (Auto) Lymph % (Auto) [place] % (Auto) Eos % (Auto) Baso % (Auto) Lymph # (Auto) [place] # (Auto) Eos # (Auto) Baso # (Auto) Abs Immat Gran (auto) Absolute Neuts (auto) Absolute Nucleated RBC Nucleated RBC % (auto) ESR Hold Blue Top Sodium Potassium Chloride Carbon Dioxide Anion Gap BUN Creatinine Estim Creat Clear Calc Estimated GFR POC Glucose 315 H 360 H* 253 H Random Glucose Lactic Acid Calcium Phosphorus Magnesium Total Bilirubin Direct Bilirubin AST ALT Alkaline Phosphatase C-Reactive Protein Total Protein Albumin Lipase 25-OH Vitamin D Total Urine Color Urine Appearance Urine pH Ur Specific [place] Urine Protein Urine Glucose (UA) Urine Ketones Urine Blood Urine Nitrite Ur Leukocyte Esterase Urine RBC Urine WBC Ur Squamous Epith Cells Urine Bacteria Urine Mucus U Random Total Protein Urine Creatinine Urine Microalbumin Microalb/Creat Ratio Stool Occult Blood Urine Opiates Screen Ur Barbiturates Screen Ur Phencyclidine Scrn Ur Amphetamines Screen U Benzodiazepines Scrn Urine Cocaine Screen U Marijuana (THC) Screen Acetone, Qual C. difficile Toxin A&B C. difficile Antigen C. difficile Interpret COVID-19 (SABINE) COVID-19 Goal Zero Com Preliminary micro results at discharge 03/07/20 14:00 Blood Culture - Preliminary Blood - Venous No growth after 48 hours. 03/07/20 13:49 Blood Culture - Preliminary Blood - Venous No growth after 48 hours. Discharge Plan Discharge Patient Disposition: Home, Self-Care Referrals: Physician,Unknown [Primary Care Provider] - Discharge Medications: New amlodipine 5 mg Tablet 5 mg PO DAILY Qty: 30 RF: 0 cefuroxime axetil 500 mg tablet 500 mg PO Q12H Qty: 6 RF: 0 metronidazole [Flagyl] 500 mg tablet 500 mg PO Q12H Qty: 6 RF: 0 Continued insulin lispro [Humalog U-100 Insulin] 100 unit/mL solution See Rx Instructions subcut .COMPLEX 30 Days Qty: 20 RF: 3 sucralfate 1 gram tablet 1 g PO QID 30 Days Qty: 120 RF: 3 trazodone 100 mg tablet 1 tab PO BEDTIME PRN (Reason: Insomnia) RF: 0 omeprazole 40 mg capsule,delayed release(DR/EC) 40 mg PO DAILY RF: 0 nortriptyline 50 mg capsule 50 mg PO BEDTIME RF: 0 gabapentin 600 mg tablet 600 mg PO TID RF: 0 losartan 50 mg tablet 50 mg PO DAILY RF: 0 (DME) insulin pump cartridge Cartridge See Rx Instructions ea subcut .MEDSUPPLY Qty: 5 RF: 0 tramadol 50 mg tablet 50 mg PO DAILY PRN (Reason: Pain) RF: 0 atorvastatin 80 mg tablet 80 mg PO DAILY Qty: 30 RF: 6 Discharge Orders: Discharge Order (Routine); Ordered 03/12/20 Ordered By: Neal Godoy Diet: advance to usual diet Activity on Discharge: As tolerated Visit Report Forms: Patient Portal Discharge page Care Plan Goals: Read below Health Concerns: Read below Plan of Treatment: You have presented to the hospital with a complaint of abdominal pain. Images including CT scan did not show any clear pathology. You were treated for colitis with IV antibiotics and IV fluid with good response over the course of treatment. You were evaluated by ticket collector Dr. Ayala, to follow-up with her as outpatient for further workup and evaluation including colonoscopy. You were noticed to have acute kidney injury which improved back to baseline with IV fluid. To follow-up with Nephrology as outpatient. Continue Ceftin and Flagyl as prescribed Advanced diet as tolerated
--- NOTE | 2020-03-12 10:14 | MHC.CM.PN ---
pt dcd imm updated and placed on chart
[2020-03-12 11:05] LABS: Glucose, Whole Blood 216 mg/dL (60-115)
--- NOTE | 2020-03-12 11:17 | P.PNNP_ITS ---
Subjective Subjective Date of Service: 03/12/20 Interval history: Events noted BP still elevated Physical Exam Vital Signs: Vital Signs: Last Vital Signs Temp 98.0 F 03/12/20 07:06 Pulse 114 H 03/12/20 08:55 Resp 18 03/12/20 07:06 BP 160/94 H 03/12/20 08:55 Pulse Ox 98 03/12/20 07:06 Body Mass Index 24.3 Const: General: comfortable Orientation/consciousness: oriented to person Neck: Neck: Yes no JVD Resp: Auscultation: clear to auscultation bilaterally Cardio: Heart sounds: no murmurs and no rubs GI: Palpation (GI): Soft to palpation Auscultation: normal bowel sounds Skin: General skin exam: no purpura Neuro: General: oriented to person Objective Data Labs CBC & Chem 7: 03/12/20 04:03 03/12/20 04:03 Labs: Laboratory Results - last 24 hr 03/11/20 03/11/20 03/11/20 11:26 14:17 16:50 WBC RBC Hgb Hct MCV MCH MCHC RDW Plt Count MPV Absolute Nucleated RBC Nucleated RBC % (auto) Sodium Potassium Chloride Carbon Dioxide Anion Gap BUN Creatinine Estim Creat Clear Calc Estimated GFR POC Glucose 175 H 284 H 241 H Random Glucose Calcium Stool Occult Blood 03/11/20 03/11/20 03/11/20 17:08 19:30 22:45 WBC RBC Hgb Hct MCV MCH MCHC RDW Plt Count MPV Absolute Nucleated RBC Nucleated RBC % (auto) Sodium Potassium Chloride Carbon Dioxide Anion Gap BUN Creatinine Estim Creat Clear Calc Estimated GFR POC Glucose 200 H 192 H Random Glucose Calcium Stool Occult Blood NEG 03/12/20 03/12/20 03/12/20 01:36 04:03 04:03 WBC 10.6 RBC 4.27 L Hgb 12.7 L Hct 37.0 L MCV 86.7 MCH 29.7 MCHC 34.3 RDW 11.3 Plt Count 329 MPV 10.3 Absolute Nucleated RBC 0.000 Nucleated RBC % (auto) 0.0 Sodium 135 Potassium 3.7 Chloride 99 Carbon Dioxide 22 Anion Gap 18 BUN 12 Creatinine 1.75 H Estim Creat Clear Calc 57.0 Estimated GFR 45 POC Glucose 192 H Random Glucose 254 H Calcium 8.0 L Stool Occult Blood 03/12/20 03/12/2021 07:05 07:37 09:45 WBC RBC Hgb Hct MCV MCH MCHC RDW Plt Count MPV Absolute Nucleated RBC Nucleated RBC % (auto) Sodium Potassium Chloride Carbon Dioxide Anion Gap BUN Creatinine Estim Creat Clear Calc Estimated GFR POC Glucose 315 H 360 H* 253 H Random Glucose Calcium Stool Occult Blood 03/12/20 10:50 WBC RBC Hgb Hct MCV MCH MCHC RDW Plt Count MPV Absolute Nucleated RBC Nucleated RBC % (auto) Sodium Potassium Chloride Carbon Dioxide Anion Gap BUN Creatinine Estim Creat Clear Calc Estimated GFR POC Glucose 216 H Random Glucose Calcium Stool Occult Blood Microbiology Microbiology Results: Microbiology 03/07/20 14:00 Blood - Venous Blood Culture - Preliminary No growth after 48 hours. 03/07/20 13:49 Blood - Venous Blood Culture - Preliminary No growth after 48 hours. 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
[2020-03-12 11:27] VITALS: BP 166/90; PULSE 111; RESP 18; TEMP 36.7; O2SAT 98
[2020-03-12 22:48] LABS: Calcium (PTHI) 8.3 mg/dL (8.6-10.3); PTHI 66 pg/mL (14-64)
== END 2020-03-12 13:08 | disposition home or self-care (01) | DRG 871 ==
LOC: HO.ED 15:36 → HO.EDOVER 18:44 → HO.IMC 23:11
PROVIDERS: Internal Medicine Nephrology; Physician Assistant; Admitting Provider Student in an Organized Health Care Education/Training Program; Emergency Provider Internal Medicine; PCP Internal Medicine Geriatric Medicine; Visit Provider Student in an Organized Health Care Education/Training Program
DX: A41.9 Sepsis, unspecified organism (principal); E10.10 Type 1 diabetes mellitus with ketoacidosis without coma; N17.9 Acute kidney failure, unspecified; I12.9 Hypertensive chronic kidney disease with stage 1 through stage 4 chronic kidney disease, or unspecified chronic kidney disease; E78.5 Hyperlipidemia, unspecified; H54.8 Legal blindness, as defined in USA; E87.5 Hyperkalemia; K52.9 Noninfective gastroenteritis and colitis, unspecified; N18.30 Chronic kidney disease, stage 3 unspecified; E10.42 Type 1 diabetes mellitus with diabetic polyneuropathy; E10.22 Type 1 diabetes mellitus with diabetic chronic kidney disease; Z20.822 Contact with and (suspected) exposure to COVID-19; Z79.4 Long term (current) use of insulin; Z96.41 Presence of insulin pump (external) (internal); Z79.891 Long term (current) use of opiate analgesic; Z79.899 Other long term (current) drug therapy
CPT/HCPCS: 36415; 74176; 80048; 80053; 80076; 80307; 81001; 82009; 82043; 82272; 82306; 82947; 83605; 83690; 83735; 83970; 84100; 84156; 85025; 85027; 85652; 86140; 87040; 87324; 87449; 87635; 93005; 96361; 96365; 96375; 96376; 99232; 99285; J0696; J1200; J1650; J1885; J2270; J2405; J2543; J2765

== ENCOUNTER 2020-03-25 15:34 | Inpatient (IN) | payer MEDICARE, MEDICAID, SELFPAY ==
[2020-03-25 15:59] VITALS: BP 190/110; BP 200/130; PULSE 121; RESP 20; TEMP 36.8; O2SAT 98; BMI 20.8
--- NOTE | 2020-03-25 16:26 | ECG_ITS ---
Test Reason : HYPERTENSION Blood Pressure : / mmHG Vent. Rate : 126 BPM Atrial Rate : 126 BPM P-R Int : 124 ms QRS Dur : 080 ms QT Int : 340 ms P-R-T Axes : 075 083 021 degrees QTc Int : 492 ms Sinus tachycardia Right atrial enlargement Nonspecific ST abnormality When compared to the previous EKG of Nonspecific ST abnormality is now Present Referred By: Tammie Pizano Electronically Signed By:LESLIE GEIGER MD
--- NOTE | 2020-03-25 16:41 | US_ITS ---
EXAMINATION: US ABDOMEN COMPLETE CLINICAL INFORMATION: Nausea, vomiting and upper left upper quadrant pain. COMPARISON: None TECHNIQUE: Real-time limited imaging of the abdomen. FINDINGS: PANCREAS: Normal. LIVER: The liver is normal in size. The liver contour is normal. Parenchymal echogenicity is normal. There is an echogenic lesion left hepatic lobe measuring 1.9 x 1.5 x 1.4 cm suggestive of hemangioma. There is no intrahepatic biliary duct dilatation seen. GALLBLADDER: Normal. The gallbladder is physiologically distended without evidence of stones, sludge, polyps, wall thickening or pericholecystic fluid. COMMON BILE DUCT: Normal in caliber measuring 0.4 cm in diameter. RIGHT KIDNEY: Normal. No hydronephrosis. No renal calculi or focal parenchymal lesions. The kidney measures 10.1 cm in maximum dimension. FREE FLUID: None. US/US abdomen complete IMPRESSION: Small hemangioma left hepatic lobe. Right kidney, gallbladder and pancreas appears unremarkable.
--- NOTE | 2020-03-25 17:23 | ED_ITS ---
HPI - Abdominal Pain General Chief Complaint: Abdominal Pain Stated Complaint: ABD PAIN SINCE THURSDAY Time Seen by Provider: 03/25/20 16:23 Source: patient and EMS Mode of arrival: EMS Limitations: no limitations History of Present Illness HPI narrative: 34yoM c PMHx of legally blind, type 1 diabetes on insulin pump with chronic kidney disease stage 3, hypertension, hyperlipidemia, GERD and depression presenting to the ED with complaints of upper abdominal pain at the left upper quadrant since Thursday worse today. He reports that he forces himself to have an episode of vomiting just to make his abdomen feel better otherwise is not having any nausea or vomiting except if he puts his fingers on his throat to make himself vomit. Patient also reports pain with urination. Patient was seen here On 03/07/2020 for similar complaint and admitted for abdominal pain of left lower quadrant with colitis, KAYODE, type 1 diabetes with hyperglycemia and was discharged on 03/12/2020. Patient denies any fevers, chills, dizziness, headaches, focal weakness, palpitations, chest pain, shortness of breath, back pain, constipation, diarrhea, hematuria or any other symptoms complaints or concerns at this time. Related Data Home Medications Medication Instructions Recorded Confirmed gabapentin 600 mg tablet 600 mg PO TID 01/04/20 03/07/20 insulin pump cartridge #5 ea 01/04/20 02/27/20 losartan 50 mg tablet 50 mg PO DAILY 01/04/20 03/07/20 nortriptyline 50 mg capsule 50 mg PO BEDTIME 01/04/20 03/07/20 omeprazole 40 mg capsule,delayed 40 mg PO DAILY 01/04/20 03/07/20 release tramadol 50 mg tablet 50 mg PO DAILY PRN 01/04/20 03/07/20 trazodone 1 tab PO BEDTIME PRN 03/07/20 03/07/20 Previous Rx's Medication Instructions Recorded insulin lispro 100 unit/mL See Rx Instructions SUBCUT 12/11/19 subcutaneous solution .COMPLEX 30 Days #20 ml atorvastatin 80 mg tablet 80 mg PO DAILY #30 tab 01/04/20 sucralfate 1 gram tablet 1 g PO QID 30 Days #120 tab 02/08/20 amlodipine 5 mg PO DAILY #30 tab 03/12/20 cefuroxime axetil 500 mg PO Q12H #6 tab 03/12/20 metronidazole [Flagyl] 500 mg PO Q12H #6 tab 03/12/20 bisacodyl 5 mg tablet,delayed 10 mg PO ONCE 1 Days #2 tab 03/14/20 release polyethylene glycol 3350 17 238 g PO ONCE 1 Days #238 g 03/14/20 gram/dose oral powder Allergies Allergy/AdvReac Type Severity Reaction Status Date / Time No Known Allergies Allergy Unverified 01/04/20 14:52 [No Known Allergies*] Review of Systems Review of Systems Constitutional : No Weight loss, No Fever, No Chills, No Night Sweats, No Fatigue, No Malaise ENT/Mouth: No ear pain, No sore throat, No Difficulty swallowing Cardiovascular : No Chest Pain, No SOB, No Dyspnea on Exertion, No Orthopnea, NoEdema, No Palpitations Respiratory : No Cough, No Sputum, No Wheezing, No Dyspnea Gastrointestinal : + Nausea, + Vomiting,+ abdominal Pain, No Diarrhea, No Hematochezia, No Melena Genitourinary : + Dysuria, No Urinary Frequency, No Hematuria,No Urinary Inc ontinence, No Urgency, No Flank Pain, No irregular bleeding Musculoskeletal : No joint pain, No Myalgias, No Joint Swelling Skin : No Skin Lesions, No rash Neuro : No Weakness, No Numbness, No Paresthesias, No Loss of Consciousness, NoDizziness, No Headache Psych : No Social Issues, Heme/Lymph: No Bruising, No Bleeding,No Lymphadenopathy Endocrine : No Polyuria, No Polydipsia, No Temperature Intolerance Yes all other systems are reviewed and are negative Physical Exam Vital Signs: Vital Signs: Last Vital Signs Temp 98.2 F 03/25/20 15:59 Pulse 121 H 03/25/20 15:59 Resp 20 03/25/20 15:59 BP 190/110 H 03/25/20 15:59 Pulse Ox 98 03/25/20 15:59 Body Mass Index 20.8 vital signs have been reviewed as normal and appeared to be correct. Blood pressure hypertensive. Heart rate tachycardic. Respiration rate normal. Temperature normal. Oxygen saturation normal. Appearance: Alert. Oriented X3. No acute distress. Head: Normal external exam. Normocephalic. Eyes: PERRLA. EOMI. Conjunctiva and sclera normal. Eyelids normal. ENT: Pharynx normal. Uvula midline. Moist mucous membranes. No trismus noted. No drooling noted. No muffled voice noted. Neck: Normal inspection. Neck supple. FROM. No adenopathy. No meningeal signs. CVS: Normal heart rate and rhythm. Heart sound normal. No murmurs noted. Pulses normal throughout. Respiratory: No respiratory distress. Painless inspiration. Breath sounds normal. No wheezes/rales/rhonchi noted. Chest nontender. No accessory muscle usage noted or decreased air movement noted. Abdomen: Soft and TTP of LUQ c guarding. Nondistended. No rigidity. Bowel sounds normal in all 4 quadrants. No distention noted. No organomegaly noted. No visible injury noted. No rebound tenderness. Negative Rovsing sign. Negative obturator's sign. Negative psoas sign. Negative Pozo sign. Back: No CVA tenderness. Full range of motion noted. Skin: Skin warm and dry. Normal skin color. Normal skin turgor. No rashes/lesions/lacerations noted. Extremities: Extremities exhibit normal range of motion. Extremities nontender. Neuro: Oriented X 3. No motor deficit. No sensory deficit. Reflexes normal. Course Course Course Narrative: 16:30pm - 34yoM c PMHx of legally blind, type 1 diabetes on insulin pump with CKD stage 3, HTN, HLD, GERD and depression presenting to the ED c c/o upper abdominal pain at the left upper quadrant since Thursday worse today. with associated forceful nausea/vomiting and dysuria. - Concern for pancreatitis vs cholecystitis vs diverticulitis vs hyperglycemia vs DKA vs electrolyte abnormality. Less concerned for appendicitis. - on exam patient is hypertensive and tachycardic appears to be in pain abdomen is soft although patient is noted to have moderate tenderness to palpation to left upper quadrant/epigastric area with guarding. No rebound tenderness or CVA tenderness noted. - Plan: POC, Labs, UA, blood cultures, lactic acid, abdominal ultrasound, EKG. Provide a L of IV fluids, 4 mg of Zofran, 4 mg of morphine then re-evaluate. Reevaluation(s) Reevaluation #1: - white blood cell count [id number] - acetone level reported small amounts - awaiting all other labs. - abdominal ultrasound revealed small hemangioma left hepatic lobe otherwise no other acute processes therefore will obtain a CT scan of chest for possible p neumonia and a CT scan of abdomen pelvis without contrast for any intra- abdominal infection - will start the patient on Zosyn for possible intra-abdominal infection - sign out to CHARLOTTE Parker at this time pending labs, CT scan of chest and CT scan of abdomen without contrast due to patient's renal function and EKG Time: 17:48 MDM - Abdominal Pain Lab Data Result diagrams: 03/25/20 17:10 03/25/20 17:09 Labs: Lab Results 03/25/20 03/25/20 Range/Units 17:10 17:10 WBC 13.6 H (4.8-10.8) X10*3/uL RBC 4.65 (4.60-5.80) X10*6/uL Hgb 14.0 (14.0-18.0) g/dl Hct 39.2 L (42-52) % MCV 84.3 (80-98) fL MCH 30.1 (27.0-33.0) pg MCHC 35.7 (31.0-36.0) g/dl RDW 11.4 (11.0-16.0) % Plt Count 305 (160-400) X10*3/uL MPV 10.2 (9.4-12.4) fL Immature Gran % (Auto) 0.5 H (0.0-0.4) % Neut % (Auto) 77.8 H (45-73) % Lymph % (Auto) 12.7 L (20-40) % Johnson % (Auto) 8.8 (2-11) % Eos % (Auto) 0.1 (0-4) % Baso % (Auto) 0.1 (0-2) % Lymph # (Auto) 1.7 (1.2-4.9) X10*3/uL Johnson # (Auto) 1.2 (0.1-1.2) X10*3/uL Eos # (Auto) 0.0 (0.0-0.4) X10*3/uL Baso # (Auto) 0.0 (0.0-0.2) X10*3/uL Abs Immat Gran (auto) 0.07 H (0.00-0.03) X10*3/uL Absolute Neuts (auto) 10.6 H (2.0-8.3) X10*3/uL Absolute Nucleated RBC 0.000 (0.0-0.012) X10*3/uL Nucleated RBC % (auto) 0.0 (0.0-0.2) /100WBC Hold Purple Top SEE NOTE Critical Care Time Critical Care Time Critical Care Time: Yes Total Critical Care Time: 60 Attestation: I personally attest to this time spent taking care of the patient Discharge Plan Discharge Clinical Impression: Acute hyperglycemia, DKA (diabetic ketoacidoses), Hemangioma of liver Prescriptions: No Action insulin lispro [Humalog U-100 Insulin] 100 unit/mL solution See Rx Instructions subcut .COMPLEX 30 Days Qty: 20 RF: 3 sucralfate 1 gram tablet 1 g PO QID 30 Days Qty: 120 RF: 3 bisacodyl [Dulcolax (bisacodyl)] 5 mg tablet,delayed release (DR/EC) 10 mg PO ONCE 1 Days Qty: 2 RF: 0 polyethylene glycol 3350 [Miralax] 17 gram/dose powder 238 g PO ONCE 1 Days Qty: 238 RF: 0 trazodone 100 mg tablet 1 tab PO BEDTIME PRN (Reason: Insomnia) RF: 0 amlodipine 5 mg Tablet 5 mg PO DAILY Qty: 30 RF: 0 cefuroxime axetil 500 mg tablet 500 mg PO Q12H Qty: 6 RF: 0 metronidazole [Flagyl] 500 mg tablet 500 mg PO Q12H Qty: 6 RF: 0 omeprazole 40 mg capsule,delayed release(DR/EC) 40 mg PO DAILY RF: 0 nortriptyline 50 mg capsule 50 mg PO BEDTIME RF: 0 gabapentin 600 mg tablet 600 mg PO TID RF: 0 losartan 50 mg tablet 50 mg PO DAILY RF: 0 (DME) insulin pump cartridge Cartridge See Rx Instructions ea subcut .MEDSUPPLY Qty: 5 RF: 0 tramadol 50 mg tablet 50 mg PO DAILY PRN (Reason: Pain) RF: 0 atorvastatin 80 mg tablet 80 mg PO DAILY Qty: 30 RF: 6 PMFSH Past Medical History Attestation statement: The following information was validated with the patient. Medical History Acid reflux Chronic kidney disease, stage 3 Diabetic polyneuropathy associated with type 1 diabetes mellitus Diabetic visual loss, with retinopathy, associated with type 1 diabetes mellitus Essential hypertension Gastritis Hyperlipidemia LDL goal <70 Polyneuropathy Sciatica Type 1 diabetes mellitus with diabetic chronic kidney disease Type 1 diabetes mellitus with hyperglycemia Surgical History Hx of appendectomy Hx of circumcision Hx of eye surgery Family History Family History Father Diabetes mellitus Mother Diabetes mellitus Maternal Grandfather Diabetes mellitus Maternal Grandmother Diabetes mellitus Social History Social History Household Members: Family and Children Housing: House Alcohol intake: never Smoking Status: Never smoker Substance Use Type: Marijuana Advance Directives: No Advance Directives Information Provided: Yes service: No Current occupational status: disabled
[2020-03-25] MEDS: ondansetron HCL 4 MG/2 ML VIAL IVPUSH (17:28)
[2020-03-25] MEDS: 0.9 % Sodium Chloride 1,000 ML 999 ML IVCONT ×3 (17:28→21:58)
[2020-03-25] MEDS: Morphine Sulfate 4 MG/ML CARTRIDGE IVPUSH (17:28)
[2020-03-25 17:30] LABS: MANUAL DIFF FLAG NO
[2020-03-25 17:33] LABS: Basophils Percent Auto 0.1 % (0-2); Eosinophils Percent Auto 0.1 % (0-4); Hematocrit 39.2 % (42-52); Imm Gran Abs Auto 0.07 X10*3/uL (0.00-0.03); Imm Gran Pct Auto 0.5 % (0.0-0.4); Lymphocytes Absolute Auto 1.7 X10*3/uL (1.2-4.9); Lymphocytes Percent Auto 12.7 % (20-40); Mean Corpuscular HGB Conc 35.7 g/dl (31.0-36.0); Mean Corpuscular Hemoglobin 30.1 pg (27.0-33.0); Mean Corpuscular Volume 84.3 fL (80-98); Mean Platelet Volume 10.2 fL (9.4-12.4); Monocytes Absolute Auto 1.2 X10*3/uL (0.1-1.2); Monocytes Percent Auto 8.8 % (2-11); Neutrophils Absolute Auto 10.6 X10*3/uL (2.0-8.3); Neutrophils Percent Auto 77.8 % (45-73); Platelet Count 305 X10*3/uL (160-400); Red Blood Count 4.65 X10*6/uL (4.60-5.80); Red Cell Distribution Width 11.4 % (11.0-16.0); White Blood Count 13.6 X10*3/uL (4.8-10.8)
[2020-03-25 17:38] LABS: Prothrombin Time 11.9 SEC (10.8-13.0)
[2020-03-25 17:45] LABS: Acetone, serum QL Small (Negative)
[2020-03-25 17:51] LABS: Lactic Acid 1.6 mmol/L (0.5-2.0)
[2020-03-25 17:53] LABS: Ethanol < 10 mg/dL
--- NOTE | 2020-03-25 17:53 | CT_ITS ---
EXAMINATION: CT CHEST, ABDOMEN AND PELVIS WITHOUT CONTRAST CLINICAL INFORMATION: Upper abdominal pain. Generalized weakness. COMPARISON: CT abdomen 03/07/2020. TECHNIQUE: Multidetector volumetric imaging was performed from the thoracic inlet through the pubic symphysis without contrast. Sagittal and coronal reformatted images were obtained on the technologist workstation. This CT examination was performed using dose optimization techniques as appropriate, variously including the following: *Automated exposure control. *Adjustment of mA and/or kV according to patient size (this includes techniques or standardized protocols for targeted exams where dose is matched to indication/reason for exam; i.e. extremities or head). *Use of iterative reconstruction technique. Total exam dose-length product 234 mGy-cm and 372 mGy-cm. FINDINGS: CHEST: Lung: No focal consolidation. No nodules or masses are seen. Pleura: No pleural effusion or pneumothorax. Mediastinum: Normal heart size. No pericardial effusion. No hilar or mediastinal lymphadenopathy. Normal caliber aorta. Chest Wall/Axilla: No axillary or internal mammary lymphadenopathy. ABDOMEN/PELVIS: Liver, Gallbladder and Biliary Tree: Redemonstrated is an area of low attenuation adjacent to falciform ligament probably reflecting area of fatty infiltration. No focal lesions. No biliary duct dilatation. Gallbladder appears unremarkable. Pancreas: Unremarkable. No acute inflammatory changes. Spleen: Unremarkable. Small splenic granuloma. Adrenal Glands: Unremarkable. Kidneys and Ureters: The kidneys are normal in size, shape, and attenuation. No hydronephrosis, hydroureter, or calculi. Gastrointestinal Tract: Stomach is partially distended with luminal contents. No dilated small or large bowel loops. Colonic diverticulosis. No diverticulitis. No pericolonic inflammatory changes. Appendix is not visualized. No inflammatory changes in the right lower quadrant. Abdominal Wall: No significant hernia is appreciated. Lymphovascular Structures: Redemonstrated are periaortic lymph nodes, larger measuring 1 cm, stable from previous. Redemonstrated are mildly prominent mesenteric lymph nodes, but not pathologically enlarged by size criteria. Bladder: Unremarkable. Pelvic Viscera: Unremarkable. Osseous Structures: No acute or suspicious osseous abnormality. CT/CT abdomen pelvis wo con IMPRESSION: 1. No acute findings identified in the chest. 2. No acute findings identified in the abdomen or pelvis. 3. Redemonstrated are some prominent periaortic lymph nodes, stable from previous.
[2020-03-25 17:57] LABS: Lipase 11 U/L (8-78)
[2020-03-25 17:58] LABS: Alanine Aminotransferase 31 U/L (0-40); Albumin Level 3.6 g/dL (3.5-5.0); Alkaline Phosphatase 96 U/L (39-117); Anion Gap 25 (12-20); Aspartate Amino Transferase 21 U/L (5-37); Bilirubin Direct 0.4 mg/dL (0.0-0.5); Bilirubin Total 1.2 mg/dL (0.0-1.0); Blood Urea Nitrogen 13 mg/dL (9-16); Carbon Dioxide 19 mmol/L (22-29); Chloride 91 mmol/L (96-108); Estimated Glomerular Filt Rate 42; Glucose Random 347 mg/dL (60-115); Magnesium 1.5 mg/dL (1.6-2.6); Potassium 3.5 mmol/L (3.3-5.1); Sodium 131 mmol/L (135-145); Total Protein 6.3 g/dL (6.5-8.0)
[2020-03-25 18:15] LABS: Influenza A PCR NEGATIVE (Negative); Influenza B PCR NEGATIVE (Negative); Resp Syncy Virus RNA Qual PCR NEGATIVE (Negative); SARS COV2 PCR INHOUSE NEGATIVE (Negative)
[2020-03-25] MEDS: Piperacillin Sodium/Tazobactam 2.25 GM in 0.9 % Sodium Chloride 50 ML IV (18:32)
[2020-03-25] MEDS: HYDROmorphone HCl 1 MG/ML SYRINGE IVPUSH ×2 (18:33→20:12)
[2020-03-25 18:39] VITALS: BP 177/114; PULSE 124; RESP 16; O2SAT 95
[2020-03-25 19:59] VITALS: BP 179/110; PULSE 136; RESP 13; TEMP 36.7; O2SAT 98
--- NOTE | 2020-03-25 20:05 | PC.NURSE ---
Pt assisted to standing to provide urine sample. Pt tachy to 150 while standing, denies CP/SOB/dizziness/lightheadedness while standing. Pt initially denying pain and nausea on assessment. Pt urine sent, second liter of NS hung. Pt now reporting pain 5/10, to be medicated with dilaudid per orders.
[2020-03-25 20:06] LABS: Glucose Urine UA >=1000 MG/DL (NEG); Leukocyte Esterase Urine NEG (NEG); Nitrite Urine NEG (NEG); Specific Gravity - Urine 1.015 (1.005-1.025); Urine Blood 1+ (NEG); Urine Ketones 40 MG/DL (NEG); Urine Protein 2+ MG/DL (NEG-TRACE)
[2020-03-25 20:11] LABS: Appearance Urine CLEAR; Color Urine YELLOW
[2020-03-25 20:15] LABS: Bacteria Urine TRACE /LPF; Granular Casts Urine 0-2 /LPF; RBC Urine 0-2 /HPF (0); Squamous Epithelial Cell Urine TRACE /LPF; WBC Urine 0-2 /HPF (0-4)
--- NOTE | 2020-03-25 20:28 | PC.NURSE ---
Pt desat to 87% after 1mg IV dilaudid, placed on 2L NC and now maintaining O2 at 95%
[2020-03-25 21:26] LABS: Anion Gap 21 (12-20); Blood Urea Nitrogen 15 mg/dL (9-16); Calcium 7.9 mg/dL (8.4-10.2); Carbon Dioxide 23 mmol/L (22-29); Chloride 93 mmol/L (96-108); Estimated Glomerular Filt Rate 44; Glucose Random 510 mg/dL (60-115); Potassium 4.2 mmol/L (3.3-5.1); Sodium 133 mmol/L (135-145)
[2020-03-25 21:47] VITALS: BP 182/108; PULSE 121; RESP 12; O2SAT 99
[2020-03-25 21:48] LABS: Glucose, Whole Blood 470 mg/dL (60-115)
[2020-03-25] MEDS: Insulin Glargine,Hum.rec.anlog 100 UNIT/ML 10 ML VIAL 15 UNIT SUBCUT (21:48)
[2020-03-25] MEDS: Insulin Regular, Human 100 UNIT/ML 3 ML VIAL 12 UNIT SUBCUT (21:49)
[2020-03-25] MEDS: LORazepam 2 MG/ML VIAL 1 MG IVPUSH (22:14)
[2020-03-25 22:15] VITALS: BP 178/112; PULSE 130
[2020-03-25] MEDS: amLODIPine Besylate 5 MG TABLET PO (22:15)
[2020-03-25] MEDS: Losartan Potassium 50 MG TABLET PO (22:15)
[2020-03-25 22:34] LABS: COVID-19 Test Negative (Negative); IDNOW Serial# 9DD0AD1C
[2020-03-25 23:03] LABS: Glucose, Whole Blood 450 mg/dL (60-115)
--- NOTE | 2020-03-25 23:08 | PC.NURSE ---
Urine output of 1000mL
[2020-03-25 23:27] VITALS: BP 155/94; PULSE 120; RESP 12; O2SAT 98
[2020-03-25] MEDS: Insulin Regular, Human 100 UNIT/ML 3 ML VIAL IVPUSH (23:34)
[2020-03-26] VITALS (9 sets, daily range): BP systolic 142–174; BP diastolic 80–109; PULSE 100–119; RESP 10–18; TEMP 36.8; O2SAT 95–99
[2020-03-26 00:03] LABS: Glucose, Whole Blood 390 mg/dL (60-115)
--- NOTE | 2020-03-26 00:12 | PM.IMHP ---
History of Present Illness Date of Service: 03/25/20 Chief Complaint: Abdominal pain, nausea and vomiting 34 year old man with history of type 1 DM on insulin pump presented with abdominal pain x 2 days. Was hospitalized here at [facility] for similar complaint earlier this month and was treated for colitis. Patient states his symptoms recurred 2 days ago-noted left lower quadrant abd pain associated with episodes of nausea and vomiting. no fevers or diarrhea and no sick contacts. He uses an insulin pump-removed it earlier prior to coming as he states site needed to be changed. Was noted to be hyperglycemic on presentation. He states his helps him manage his sugars but he has seen numbers in the 200-400 range in the last couple of days. No productive cough or dyspnea. He has noted some dysuria for last 2 days. Abd pain was teated with opiates and improved-states it is better now. Review of Systems Constitutional: Comments: No fevers or chills. Marginal PO intake last couple of days. Eyes: Comments: legally blind ENT: Comments: No throat pain with swallowing Cardiovascular: Comments: No chest pain currently Respiratory: Comments: no dyspnea or cough Gastrointestinal: Comments: Abd pain improved Genitourinary: Comments: mild dysuria Musculoskeletal: Comments: No joint pain Psychiatric: Comments: Not anxious [facility] Medical History Acid reflux Chronic kidney disease, stage 3 Diabetic polyneuropathy associated with type 1 diabetes mellitus Diabetic visual loss, with retinopathy, associated with type 1 diabetes mellitus Essential hypertension Gastritis Hyperlipidemia LDL goal <70 Polyneuropathy Sciatica Type 1 diabetes mellitus with diabetic chronic kidney disease Type 1 diabetes mellitus with hyperglycemia Family History Father Diabetes mellitus Mother Diabetes mellitus Maternal Grandfather Diabetes mellitus Maternal Grandmother Diabetes mellitus Surgical History Hx of appendectomy Hx of circumcision Hx of eye surgery Social History Household Members: Family and Children Housing: House Alcohol intake: never Smoking Status: Never smoker Substance Use Type: Marijuana Advance Directives: No Advance Directives Information Provided: Yes service: No Current occupational status: disabled Meds Allergies Allergy/AdvReac Type Severity Reaction Status Date / Time No Known Allergies Allergy Unverified 01/04/20 14:52 [No Known Allergies*] Home Medications Medication Instructions Recorded Confirmed Type gabapentin 600 mg tablet 600 mg PO TID 01/04/20 03/25/20 History insulin pump cartridge #5 ea 01/04/20 02/27/20 History losartan 50 mg tablet 50 mg PO DAILY 01/04/20 03/25/20 History nortriptyline 50 mg capsule 50 mg PO BEDTIME 01/04/20 03/25/20 History omeprazole 40 mg capsule,delayed 40 mg PO DAILY 01/04/20 03/25/20 History release tramadol 50 mg tablet 50 mg PO DAILY PRN 01/04/20 03/25/20 History trazodone 1 tab PO BEDTIME PRN 03/07/20 03/25/20 History Physical Exam Vital Signs and Narrative: Vital Signs: Last Vital Signs Temp 98.1 F 03/25/20 19:59 Pulse 120 H 03/25/20 23:27 Resp 12 03/25/20 23:27 BP 155/94 H 03/25/20 23:27 Pulse Ox 98 03/25/20 23:27 Body Mass Index 20.8 Const: General: cooperative, comfortable, no acute distress and alert HENMT: Head: Yes normal to inspection Mouth: Normal oral and palatal mucosa present Eyes: Other: No scleral icterus or conjunctival injections seen, eyes do appear abnormal due to blindness Resp: Other: No insp crackles or exp wheezing Effort & Inspection: normal respiratory effort Cardio: Rate: tachycardic Rhythm: regular rhythm Heart sounds: S1 normal heart sound present and S2 normal heart sound present GI: Other: Bowel sounds hypoactive, no guarding or masses, nontender to palpation presently Skin: General skin exam: no rashes or lesions noted Extrem: Other: No leg edema Psych: Other: Does not appear anxious or agitated Results Labs CBC and Chem 7: 03/25/20 17:10 03/25/20 23:55 Labs: Laboratory Results - last 24 hr 03/25/20 03/25/20 03/25/20 17:08 17:08 17:09 MCV MCH MCHC RDW Plt Count MPV Immature Gran % (Auto) Neut % (Auto) Lymph % (Auto) [place] % (Auto) Eos % (Auto) Baso % (Auto) Lymph # (Auto) [place] # (Auto) Eos # (Auto) Baso # (Auto) Abs Immat Gran (auto) Absolute Neuts (auto) Absolute Nucleated RBC Nucleated RBC % (auto) Hold Purple Top PT 11.9 INR 1.0 Anion Gap Estim Creat Clear Calc Estimated GFR POC Glucose Random Glucose Lactic Acid Calcium Magnesium Total Bilirubin Direct Bilirubin AST ALT Alkaline Phosphatase Total Protein Albumin Lipase 11 Urine Color Urine Appearance Urine pH Ur Specific [place] Urine Protein Urine Glucose (UA) Urine Ketones Urine Blood Urine Nitrite Ur Leukocyte Esterase Urine RBC Urine WBC Ur Squamous Epith Cells Urine Bacteria Granular Casts Ethyl Alcohol Acetone, Qual Small H Coronavirus (PCR) COVID-19 ([facility]) COVID-19 Clin Com Influenza Type A (PCR) Influenza Type B (PCR) RSV RNA Qual (PCR) 03/25/20 03/25/20 03/25/20 17:09 17:10 17:10 MCV 84.3 MCH 30.1 MCHC 35.7 RDW 11.4 Plt Count 305 MPV 10.2 Immature Gran % (Auto) 0.5 H Neut % (Auto) 77.8 H Lymph % (Auto) 12.7 L [place] % (Auto) 8.8 Eos % (Auto) 0.1 Baso % (Auto) 0.1 Lymph # (Auto) 1.7 [place] # (Auto) 1.2 Eos # (Auto) 0.0 Baso # (Auto) 0.0 Abs Immat Gran (auto) 0.07 H Absolute Neuts (auto) 10.6 H Absolute Nucleated RBC 0.000 Nucleated RBC % (auto) 0.0 Hold Purple Top SEE NOTE PT INR Anion Gap 25 H Estim Creat Clear Calc 51.0 Estimated GFR 42 POC Glucose Random Glucose 347 H D Lactic Acid Calcium 9.0 D Magnesium 1.5 L Total Bilirubin 1.2 H Direct Bilirubin 0.4 AST 21 D ALT 31 Alkaline Phosphatase 96 Total Protein 6.3 L Albumin 3.6 Lipase Urine Color Urine Appearance Urine pH Ur Specific [place] Urine Protein Urine Glucose (UA) Urine Ketones Urine Blood Urine Nitrite Ur Leukocyte Esterase Urine RBC Urine WBC Ur Squamous Epith Cells Urine Bacteria Granular Casts Ethyl Alcohol Acetone, Qual Coronavirus (PCR) COVID-19 ([facility]INE) COVID-19 Clin Com Influenza Type A (PCR) Influenza Type B (PCR) RSV RNA Qual (PCR) 03/25/20 03/25/20 03/25/20 17:11 17:23 17:23 MCV MCH MCHC RDW Plt Count MPV Immature Gran % (Auto) Neut % (Auto) Lymph % (Auto) [place] % (Auto) Eos % (Auto) Baso % (Auto) Lymph # (Auto) [place] # (Auto) Eos # (Auto) Baso # (Auto) Abs Immat Gran (auto) Absolute Neuts (auto) Absolute Nucleated RBC Nucleated RBC % (auto) Hold Purple Top PT INR Anion Gap Estim Creat Clear Calc Estimated GFR POC Glucose Random Glucose Lactic Acid 1.6 Calcium Magnesium Total Bilirubin Direct Bilirubin AST ALT Alkaline Phosphatase Total Protein Albumin Lipase Urine Color Urine Appearance Urine pH Ur Specific [place] Urine Protein Urine Glucose (UA) Urine Ketones Urine Blood Urine Nitrite Ur Leukocyte Esterase Urine RBC Urine WBC Ur Squamous Epith Cells Urine Bacteria Granular Casts Ethyl Alcohol < 10 Acetone, Qual Coronavirus (PCR) NEGATIVE COVID-19 ([facility]) COVID-19 Clin Com Influenza Type A (PCR) NEGATIVE Influenza Type B (PCR) NEGATIVE RSV RNA Qual (PCR) NEGATIVE 03/25/20 03/25/20 03/25/20 19:59 20:43 21:44 MCV MCH MCHC RDW Plt Count MPV Immature Gran % (Auto) Neut % (Auto) Lymph % (Auto) [place] % (Auto) Eos % (Auto) Baso % (Auto) Lymph # (Auto) [place] # (Auto) Eos # (Auto) Baso # (Auto) Abs Immat Gran (auto) Absolute Neuts (auto) Absolute Nucleated RBC Nucleated RBC % (auto) Hold Purple Top PT INR Anion Gap 21 H Estim Creat Clear Calc 53.0 Estimated GFR 44 POC Glucose 470 H* Random Glucose 510 H* Lactic Acid Calcium 7.9 L D Magnesium Total Bilirubin Direct Bilirubin AST ALT Alkaline Phosphatase Total Protein Albumin Lipase Urine Color YELLOW Urine Appearance CLEAR Urine pH 6.0 Ur Specific [place] 1.015 Urine Protein 2+ H Urine Glucose (UA) >=1000 H Urine Ketones 40 Urine Blood 1+ H Urine Nitrite NEG Ur Leukocyte Esterase NEG Urine RBC 0-2 Urine WBC 0-2 Ur Squamous Epith Cells TRACE Urine Bacteria TRACE Granular Casts 0-2 Ethyl Alcohol Acetone, Qual Coronavirus (PCR) COVID-19 ([facility]) COVID-19 Clin Com Influenza Type A (PCR) Influenza Type B (PCR) RSV RNA Qual (PCR) 03/25/20 03/25/2021 21:59 22:59 23:30 MCV MCH MCHC RDW Plt Count MPV Immature Gran % (Auto) Neut % (Auto) Lymph % (Auto) [place] % (Auto) Eos % (Auto) Baso % (Auto) Lymph # (Auto) [place] # (Auto) Eos # (Auto) Baso # (Auto) Abs Immat Gran (auto) Absolute Neuts (auto) Absolute Nucleated RBC Nucleated RBC % (auto) Hold Purple Top PT INR Anion Gap Estim Creat Clear Calc Estimated GFR POC Glucose 450 H* 390 H* Random Glucose Lactic Acid Calcium Magnesium Total Bilirubin Direct Bilirubin AST ALT Alkaline Phosphatase Total Protein Albumin Lipase Urine Color Urine Appearance Urine pH Ur Specific [place] Urine Protein Urine Glucose (UA) Urine Ketones Urine Blood Urine Nitrite Ur Leukocyte Esterase Urine RBC Urine WBC Ur Squamous Epith Cells Urine Bacteria Granular Casts Ethyl Alcohol Acetone, Qual Coronavirus (PCR) COVID-19 ([facility]INE) Negative COVID-19 Clin Com See Note Influenza Type A (PCR) Influenza Type B (PCR) RSV RNA Qual (PCR) Imaging Radiologist's Impressions: Impressions Abdomen Ultrasound 03/25/20 16:41 IMPRESSION: Small hemangioma left hepatic lobe. Right kidney, gallbladder and pancreas appears unremarkable. Abdomen/Pelvis CT 03/25/20 17:53 IMPRESSION: 1. No acute findings identified in the chest. 2. No acute findings identified in the abdomen or pelvis. 3. Redemonstrated are some prominent periaortic lymph nodes, stable from previous. Chest CT 03/25/20 17:53 IMPRESSION: 1. No acute findings identified in the chest. 2. No acute findings identified in the abdomen or pelvis. 3. Redemonstrated are some prominent periaortic lymph nodes, stable from previous. Assessment and Plan (1) Acute hyperglycemia: Status: Acute (2) Abdominal pain: Problem details: A 34-year-old male with intermittent left upper quadrant pain associated with food, follows or activity. He has a very good appetite, normal bowel pattern, no other associated symptoms. Good response with omeprazole 20 mg for acid reflux,. Symptoms are somewhat vague. We have reviewed previous CT scan, ultrasound an EGD. He is requesting a colonoscopy. He is somewhat difficult to assess he is not forthcoming a despite interactive sign language interpreter. We will have him follow-up telephone visit with MD, will need extra time as well as an sign language interpreter. Status: Acute (3) Type 1 diabetes mellitus with diabetic chronic kidney disease: Status: Acute 34 year old man with Type 1 DM presented with abdominal pain in LLQ, now improved. Abdominal pain No acute findings of colitis on CT scan. Will discontinue Zosyn that was ordered before. His abd pain may have been due to uncontrolled sugars and mild DKA. Supportive care with IV fluids and antiemetics and start with clear liquid diet for now and advance as tolerated. DM type 1, uncontrolled hyperglycemia Blood sugars were very elevated before. Small amount of acetone noted and anion gap. Insulin pump removed before coming in. Was given Lantus SC and SC and IV insulin in ED and continues on IV fluids. Blood sugars still elevated so will give 5 units IV and 5 units SC regular insulin now and will continue checking blood sugars q2 hrs overnight and will repeat BMP to evaluate the potassium and anion gap. May need more lantus as well as 15 units does not appear effective. Continue Gabapentin, presumably for neuropathy. HTN Continue outpatient meds including Losartan and Norvasc. Dyslipidemia Continue Atorvastatin. CKD stage 3 Creatinine appears to be at baseline: 1.7-1.8 range. Dysuria No WBC, nitrites, or leukocyte estrace on urinalysis so will not treat with any antibiotics. DVT proph SC Heparin as not ambulating consistently. Code status Full code, healthcare proxy is his Dali.
[2020-03-26 00:28] LABS: Anion Gap 20 (12-20); Blood Urea Nitrogen 18 mg/dL (9-16); Calcium 8.2 mg/dL (8.4-10.2); Carbon Dioxide 22 mmol/L (22-29); Chloride 96 mmol/L (96-108); Creatinine Clr Calc Pharmacy 50.4; Estimated Glomerular Filt Rate 42; Glucose Random 427 mg/dL (60-115); Potassium 3.8 mmol/L (3.3-5.1); Sodium 134 mmol/L (135-145)
[2020-03-26 01:09] LABS: Glucose, Whole Blood 302 mg/dL (60-115)
[2020-03-26] MEDS: Insulin Regular, Human 100 UNIT/ML 3 ML VIAL SUBCUT (01:16)
[2020-03-26] MEDS: Heparin Sodium,Porcine 5,000 UNIT/ML VIAL 5000 UNIT SUBCUT ×3 (01:17→17:46)
[2020-03-26] MEDS: Insulin Glargine,Hum.rec.anlog 100 UNIT/ML 10 ML VIAL SUBCUT (01:17)
[2020-03-26 03:16] LABS: Glucose, Whole Blood 241 mg/dL (60-115)
[2020-03-26] MEDS: Magnesium Sulfate/D5W 1 GM/100 ML PIGGYBACK IV (04:00)
[2020-03-26] MEDS: KCl 40 mEq in 5% Dex/0.45% Sod 40 MEQ/1,000 ML IV.SOLN 100 MEQ IVCONT ×2 (04:03→15:07)
[2020-03-26 04:14] LABS: Glucose, Whole Blood 178 mg/dL (60-115)
--- NOTE | 2020-03-26 04:34 | PC.NURSE ---
md requested d5 0.45 normal saline with potassium be increased to 150ml/hr.
[2020-03-26 04:58] LABS: Anion Gap 13 (12-20); Blood Urea Nitrogen 17 mg/dL (9-16); Carbon Dioxide 29 mmol/L (22-29); Chloride 100 mmol/L (96-108); Creatinine Clr Calc Pharmacy 56.9; Estimated Glomerular Filt Rate 48; Glucose Random 196 mg/dL (60-115); Potassium 3.6 mmol/L (3.3-5.1); Sodium 138 mmol/L (135-145)
[2020-03-26 06:57] LABS: Glucose, Whole Blood 169 mg/dL (60-115)
[2020-03-26 07:17] LABS: Anion Gap 15 (12-20); Blood Urea Nitrogen 16 mg/dL (9-16); Carbon Dioxide 25 mmol/L (22-29); Chloride 100 mmol/L (96-108); Creatinine Clr Calc Pharmacy 62.6; Estimated Glomerular Filt Rate 54; Glucose Random 179 mg/dL (60-115); Potassium 4.1 mmol/L (3.3-5.1); Sodium 136 mmol/L (135-145)
[2020-03-26 07:50] LABS: Glucose, Whole Blood 240 mg/dL (60-115)
[2020-03-26] MEDS: Gabapentin 600 MG TABLET PO ×3 (10:14→21:50)
[2020-03-26] MEDS: Omeprazole 40 MG CAPSULE.DR PO (10:14)
[2020-03-26] MEDS: Atorvastatin Calcium 80 MG TABLET PO (10:14)
[2020-03-26] MEDS: amLODIPine Besylate 5 MG TABLET PO (10:15)
[2020-03-26] MEDS: Losartan Potassium 50 MG TABLET PO (10:15)
[2020-03-26 10:51] LABS: Glucose, Whole Blood 283 mg/dL (60-115)
[2020-03-26] MEDS: HYDROmorphone HCl 0.5 MG/0.5 ML SYRINGE IVPUSH ×3 (11:44→22:14)
[2020-03-26 13:23] LABS: Glucose, Whole Blood 351 mg/dL (60-115)
[2020-03-26] MEDS: Insulin Lispro 100 UNIT/ML 3 ML VIAL SUBCUT ×3 (13:28→21:50)
--- NOTE | 2020-03-26 15:35 | P.PNIM_ITS ---
Subjective Subjective Date of Service: 03/26/20 Interval History: BG improved Still c/o severe abd pain similar in quality/location to last admission Denies diarrhea Physical Exam Vital Signs: Vital Signs: Last Vital Signs Temp 98.1 F 03/25/20 19:59 Pulse 108 H 03/26/20 10:15 Resp 12 03/26/20 06:18 BP 160/100 H 03/26/20 10:15 Pulse Ox 97 03/26/20 06:18 Body Mass Index 20.8 Gen: in pain HEENT: sclera anicteric, moist mucus membranes Neck: supple Lungs: clear to auscultation bilaterally Heart: regular rate and rhythm, no murmurs Abd: soft, tender LLQ + LUQ without rebound Ext: no edema Skin: warm/well-perfused Neuro: alert and oriented x3, no focal findings Psych: appropriate affect Objective Data Current Medications Generic Name Dose Route Start Last Admin Trade Name Freq PRN Reason Stop Dose Admin Amlodipine Besylate 5 mg 03/26/20 09:00 03/26/20 10:15 Amlodipine Besylate 5 Mg Tablet PO 5 mg DAILY OKSANA Administration Protocol Atorvastatin Calcium 80 mg 03/26/20 09:00 03/26/20 10:14 Atorvastatin Calcium 80 Mg Tablet PO 80 mg DAILY OKSANA Administration Gabapentin 600 mg 03/26/20 09:00 03/26/20 10:14 Gabapentin 600 Mg Tablet PO 600 mg TID OKSANA Administration Heparin Sodium (Porcine) 5,000 unit 03/26/20 00:45 03/26/20 10:16 Heparin Sodium,Porcine 5,000 Unit/Ml Vial SUBCUT 5,000 unit Q8H OKSANA Administration Hydromorphone HCl 0.5 mg 03/26/20 00:57 03/26/20 11:44 Hydromorphone Hcl 0.5 Mg/0.5 Ml Syringe IVPUSH 0.5 mg Q4H PRN Administration Pain, Moderate (Pain Scale 4-6 Potassium Chloride/Dextrose/Sod Cl 40 meq in 1,000 mls @ 100 mls/hr 03/26/20 03:30 03/26/20 15:07 IVCONT 100 mls/hr .Q10H OKSANA Administration Insulin Human Lispro 0 unit 03/26/20 00:55 03/26/20 13:28 Insulin Lispro 100 Unit/Ml 3 Ml Vial SUBCUT 10 unit RQ4H OKSANA Administration Protocol Losartan Potassium 50 mg 03/26/20 09:00 03/26/20 10:15 Losartan Potassium 50 Mg Tablet PO 50 mg DAILY OKSANA Administration Protocol Nortriptyline HCl 50 mg 03/26/20 21:00 Nortriptyline Hcl 25 Mg Capsule PO BEDTIME OKSANA Omeprazole 40 mg 03/26/20 09:00 03/26/20 10:14 Omeprazole 40 Mg Capsule.Dr PO 40 mg DAILY OKSANA Administration Ondansetron HCl 4 mg 03/26/20 00:56 Ondansetron Hcl 4 Mg/2 Ml Vial IVPUSH Q8H PRN Nausea Sodium Chloride 3 ml 03/26/20 08:00 03/26/20 10:28 0.9 % Sodium Chloride Flush 3 Ml Syringe IVFLUSH Not Given QSHIFT OKSANA Sodium Chloride 3 ml 03/26/20 08:00 03/26/20 10:28 0.9 % Sodium Chloride Flush 3 Ml Syringe IVFLUSH Not Given QSHIFT OKSANA Trazodone HCl 100 mg 03/26/20 00:42 Trazodone Hcl 100 Mg Tablet PO BEDTIME PRN Insomnia Labs CBC & Chem 7: 03/25/20 17:10 03/26/20 06:21 Labs: Laboratory Results - last 24 hr 03/25/20 03/25/20 03/25/20 16:00 17:08 17:08 WBC RBC Hgb Hct MCV MCH MCHC RDW Plt Count MPV Immature Gran % (Auto) Neut % (Auto) Lymph % (Auto) [place] % (Auto) Eos % (Auto) Baso % (Auto) Lymph # (Auto) [place] # (Auto) Eos # (Auto) Baso # (Auto) Abs Immat Gran (auto) Absolute Neuts (auto) Absolute Nucleated RBC Nucleated RBC % (auto) Hold Purple Top PT INR Sodium Potassium Chloride Carbon Dioxide Anion Gap BUN Creatinine Estim Creat Clear Calc Estimated GFR POC Glucose 240 H Random Glucose Lactic Acid Calcium Magnesium Total Bilirubin Direct Bilirubin AST ALT Alkaline Phosphatase Total Protein Albumin Lipase 11 Urine Color Urine Appearance Urine pH Ur Specific [place] Urine Protein Urine Glucose (UA) Urine Ketones Urine Blood Urine Nitrite Ur Leukocyte Esterase Urine RBC Urine WBC Ur Squamous Epith Cells Urine Bacteria Granular Casts Ethyl Alcohol Acetone, Qual Small H Coronavirus (PCR) COVID-19 (SABINE) COVID-19 Clin Com Influenza Type A (PCR) Influenza Type B (PCR) RSV RNA Qual (PCR) 03/25/20 03/25/20 03/25/20 17:09 17:09 17:10 WBC 13.6 H RBC 4.65 Hgb 14.0 Hct 39.2 L MCV 84.3 MCH 30.1 MCHC 35.7 RDW 11.4 Plt Count 305 MPV 10.2 Immature Gran % (Auto) 0.5 H Neut % (Auto) 77.8 H Lymph % (Auto) 12.7 L [place] % (Auto) 8.8 Eos % (Auto) 0.1 Baso % (Auto) 0.1 Lymph # (Auto) 1.7 [place] # (Auto) 1.2 Eos # (Auto) 0.0 Baso # (Auto) 0.0 Abs Immat Gran (auto) 0.07 H Absolute Neuts (auto) 10.6 H Absolute Nucleated RBC 0.000 Nucleated RBC % (auto) 0.0 Hold Purple Top PT 11.9 INR 1.0 Sodium 131 L Potassium 3.5 Chloride 91 L Carbon Dioxide 19 L Anion Gap 25 H BUN 13 Creatinine 1.83 H Estim Creat Clear Calc 51.0 Estimated GFR 42 POC Glucose Random Glucose 347 H D Lactic Acid Calcium 9.0 D Magnesium 1.5 L Total Bilirubin 1.2 H Direct Bilirubin 0.4 AST 21 D ALT 31 Alkaline Phosphatase 96 Total Protein 6.3 L Albumin 3.6 Lipase Urine Color Urine Appearance Urine pH Ur Specific [place] Urine Protein Urine Glucose (UA) Urine Ketones Urine Blood Urine Nitrite Ur Leukocyte Esterase Urine RBC Urine WBC Ur Squamous Epith Cells Urine Bacteria Granular Casts Ethyl Alcohol Acetone, Qual Coronavirus (PCR) COVID-19 (SABINE) COVID-19 [facility] Influenza Type A (PCR) Influenza Type B (PCR) RSV RNA Qual (PCR) 03/25/20 03/25/20 03/25/20 17:10 17:11 17:23 WBC RBC Hgb Hct MCV MCH MCHC RDW Plt Count MPV Immature Gran % (Auto) Neut % (Auto) Lymph % (Auto) [place] % (Auto) Eos % (Auto) Baso % (Auto) Lymph # (Auto) [place] # (Auto) Eos # (Auto) Baso # (Auto) Abs Immat Gran (auto) Absolute Neuts (auto) Absolute Nucleated RBC Nucleated RBC % (auto) Hold Purple Top SEE NOTE PT INR Sodium Potassium Chloride Carbon Dioxide Anion Gap BUN Creatinine Estim Creat Clear Calc Estimated GFR POC Glucose Random Glucose Lactic Acid 1.6 Calcium Magnesium Total Bilirubin Direct Bilirubin AST ALT Alkaline Phosphatase Total Protein Albumin Lipase Urine Color Urine Appearance Urine pH Ur Specific [place] Urine Protein Urine Glucose (UA) Urine Ketones Urine Blood Urine Nitrite Ur Leukocyte Esterase Urine RBC Urine WBC Ur Squamous Epith Cells Urine Bacteria Granular Casts Ethyl Alcohol Acetone, Qual Coronavirus (PCR) NEGATIVE COVID-19 (SABINE) COVID-19 Clin Com Influenza Type A (PCR) NEGATIVE Influenza Type B (PCR) NEGATIVE RSV RNA Qual (PCR) NEGATIVE 03/25/20 03/25/20 03/25/20 17:23 19:59 20:43 WBC RBC Hgb Hct MCV MCH MCHC RDW Plt Count MPV Immature Gran % (Auto) Neut % (Auto) Lymph % (Auto) [place] % (Auto) Eos % (Auto) Baso % (Auto) Lymph # (Auto) [place] # (Auto) Eos # (Auto) Baso # (Auto) Abs Immat Gran (auto) Absolute Neuts (auto) Absolute Nucleated RBC Nucleated RBC % (auto) Hold Purple Top PT INR Sodium 133 L Potassium 4.2 Chloride 93 L Carbon Dioxide 23 Anion Gap 21 H BUN 15 Creatinine 1.76 H Estim Creat Clear Calc 53.0 Estimated GFR 44 POC Glucose Random Glucose 510 H* Lactic Acid Calcium 7.9 L D Magnesium Total Bilirubin Direct Bilirubin AST ALT Alkaline Phosphatase Total Protein Albumin Lipase Urine Color YELLOW Urine Appearance CLEAR Urine pH 6.0 Ur Specific [place] 1.015 Urine Protein 2+ H Urine Glucose (UA) >=1000 H Urine Ketones 40 Urine Blood 1+ H Urine Nitrite NEG Ur Leukocyte Esterase NEG Urine RBC 0-2 Urine WBC 0-2 Ur Squamous Epith Cells TRACE Urine Bacteria TRACE Granular Casts 0-2 Ethyl Alcohol < 10 Acetone, Qual Coronavirus (PCR) COVID-19 (SABINE) COVID-19 Clin Com Influenza Type A (PCR) Influenza Type B (PCR) RSV RNA Qual (PCR) 03/25/20 03/25/20 03/25/20 21:44 21:59 22:59 WBC RBC Hgb Hct MCV MCH MCHC RDW Plt Count MPV Immature Gran % (Auto) Neut % (Auto) Lymph % (Auto) [place] % (Auto) Eos % (Auto) Baso % (Auto) Lymph # (Auto) [place] # (Auto) Eos # (Auto) Baso # (Auto) Abs Immat Gran (auto) Absolute Neuts (auto) Absolute Nucleated RBC Nucleated RBC % (auto) Hold Purple Top PT INR Sodium Potassium Chloride Carbon Dioxide Anion Gap BUN Creatinine Estim Creat Clear Calc Estimated GFR POC Glucose 470 H* 450 H* Random Glucose Lactic Acid Calcium Magnesium Total Bilirubin Direct Bilirubin AST ALT Alkaline Phosphatase Total Protein Albumin Lipase Urine Color Urine Appearance Urine pH Ur Specific [place] Urine Protein Urine Glucose (UA) Urine Ketones Urine Blood Urine Nitrite Ur Leukocyte Esterase Urine RBC Urine WBC Ur Squamous Epith Cells Urine Bacteria Granular Casts Ethyl Alcohol Acetone, Qual Coronavirus (PCR) COVID-19 (SABINE) Negative COVID-19 Clin Com See Note Influenza Type A (PCR) Influenza Type B (PCR) RSV RNA Qual (PCR) 03/25/20 03/25/20 03/26/20 23:30 23:55 01:05 WBC RBC Hgb Hct MCV MCH MCHC RDW Plt Count MPV Immature Gran % (Auto) Neut % (Auto) Lymph % (Auto) [place] % (Auto) Eos % (Auto) Baso % (Auto) Lymph # (Auto) [place] # (Auto) Eos # (Auto) Baso # (Auto) Abs Immat Gran (auto) Absolute Neuts (auto) Absolute Nucleated RBC Nucleated RBC % (auto) Hold Purple Top PT INR Sodium 134 L Potassium 3.8 Chloride 96 Carbon Dioxide 22 Anion Gap 20 BUN 18 H Creatinine 1.85 H Estim Creat Clear Calc 50.4 Estimated GFR 42 POC Glucose 390 H* 302 H Random Glucose 427 H* Lactic Acid Calcium 8.2 L Magnesium Total Bilirubin Direct Bilirubin AST ALT Alkaline Phosphatase Total Protein Albumin Lipase Urine Color Urine Appearance Urine pH Ur Specific [place] Urine Protein Urine Glucose (UA) Urine Ketones Urine Blood Urine Nitrite Ur Leukocyte Esterase Urine RBC Urine WBC Ur Squamous Epith Cells Urine Bacteria Granular Casts Ethyl Alcohol Acetone, Qual Coronavirus (PCR) COVID-19 (SABINE) COVID-19 Clin Com Influenza Type A (PCR) Influenza Type B (PCR) RSV RNA Qual (PCR) 03/26/20 03/26/20 03/26/20 03:10 04:10 04:31 WBC RBC Hgb Hct MCV MCH MCHC RDW Plt Count MPV Immature Gran % (Auto) Neut % (Auto) Lymph % (Auto) [place] % (Auto) Eos % (Auto) Baso % (Auto) Lymph # (Auto) [place] # (Auto) Eos # (Auto) Baso # (Auto) Abs Immat Gran (auto) Absolute Neuts (auto) Absolute Nucleated RBC Nucleated RBC % (auto) Hold Purple Top PT INR Sodium 138 Potassium 3.6 Chloride 100 Carbon Dioxide 29 Anion Gap 13 BUN 17 H Creatinine 1.64 H Estim Creat Clear Calc 56.9 Estimated GFR 48 POC Glucose 241 H 178 H Random Glucose 196 H D Lactic Acid Calcium 8.0 L Magnesium Total Bilirubin Direct Bilirubin AST ALT Alkaline Phosphatase Total Protein Albumin Lipase Urine Color Urine Appearance Urine pH Ur Specific [place] Urine Protein Urine Glucose (UA) Urine Ketones Urine Blood Urine Nitrite Ur Leukocyte Esterase Urine RBC Urine WBC Ur Squamous Epith Cells Urine Bacteria Granular Casts Ethyl Alcohol Acetone, Qual Coronavirus (PCR) COVID-19 (SABINE) COVID-19 Clin Com Influenza Type A (PCR) Influenza Type B (PCR) RSV RNA Qual (PCR) 03/26/20 03/26/20 03/26/20 06:17 06:21 10:47 WBC RBC Hgb Hct MCV MCH MCHC RDW Plt Count MPV Immature Gran % (Auto) Neut % (Auto) Lymph % (Auto) [place] % (Auto) Eos % (Auto) Baso % (Auto) Lymph # (Auto) [place] # (Auto) Eos # (Auto) Baso # (Auto) Abs Immat Gran (auto) Absolute Neuts (auto) Absolute Nucleated RBC Nucleated RBC % (auto) Hold Purple Top PT INR Sodium 136 Potassium 4.1 Chloride 100 Carbon Dioxide 25 Anion Gap 15 BUN 16 Creatinine 1.49 H Estim Creat Clear Calc 62.6 Estimated GFR 54 POC Glucose 169 H 283 H Random Glucose 179 H Lactic Acid Calcium 8.0 L Magnesium Total Bilirubin Direct Bilirubin AST ALT Alkaline Phosphatase Total Protein Albumin Lipase Urine Color Urine Appearance Urine pH Ur Specific [place] Urine Protein Urine Glucose (UA) Urine Ketones Urine Blood Urine Nitrite Ur Leukocyte Esterase Urine RBC Urine WBC Ur Squamous Epith Cells Urine Bacteria Granular Casts Ethyl Alcohol Acetone, Qual Coronavirus (PCR) COVID-19 (SABINE) COVID-19 Clin Com Influenza Type A (PCR) Influenza Type B (PCR) RSV RNA Qual (PCR) 03/26/20 13:20 WBC RBC Hgb Hct MCV MCH MCHC RDW Plt Count MPV Immature Gran % (Auto) Neut % (Auto) Lymph % (Auto) [place] % (Auto) Eos % (Auto) Baso % (Auto) Lymph # (Auto) [place] # (Auto) Eos # (Auto) Baso # (Auto) Abs Immat Gran (auto) Absolute Neuts (auto) Absolute Nucleated RBC Nucleated RBC % (auto) Hold Purple Top PT INR Sodium Potassium Chloride Carbon Dioxide Anion Gap BUN Creatinine Estim Creat Clear Calc Estimated GFR POC Glucose 351 H* Random Glucose Lactic Acid Calcium Magnesium Total Bilirubin Direct Bilirubin AST ALT Alkaline Phosphatase Total Protein Albumin Lipase Urine Color Urine Appearance Urine pH Ur Specific [place] Urine Protein Urine Glucose (UA) Urine Ketones Urine Blood Urine Nitrite Ur Leukocyte Esterase Urine RBC Urine WBC Ur Squamous Epith Cells Urine Bacteria Granular Casts Ethyl Alcohol Acetone, Qual Coronavirus (PCR) COVID-19 (SABINE) COVID-19 Clin Com Influenza Type A (PCR) Influenza Type B (PCR) RSV RNA Qual (PCR) Assessment and Plan (1) Abdominal pain: Status: Resolved (2) KAYODE (acute kidney injury): Status: Resolved (3) Type 1 diabetes mellitus with hyperglycemia: Assessment and Plan: hospital d#2 34yo M with DM1 recently admitted for colitis presenting with recurrent abd pain, no findings of colitis on CT scan # abd pain - suspect due to hyperglycemia/resolved DKA - prn IV hydromorphone, IV fluids, clear liquid diet + ADAT # DM1 with uncontrolled hyperglycemia - was on insulin pump; removed at home. increase Lantus, continue Humalog; check A1c # neuropathy - continue gabapentin # HTN - continue losartan, amlodipine # dyslipidemia - continue statin # CKD3 - SCr at baseline # dysuria - no objective evidence of UTI (no pyuria, nitrituria, or leuk esterase)- will check GC/CT # VTE ppx - UFH
--- NOTE | 2020-03-26 15:49 | MHC.CM.PN ---
PT REPORTS HE LIVES WITH HIS S/O AND HIS CHILDREN. PT IS INDEPENDENT WITH SELF-CARE AND HIS GF IS HIS [employer] 2ND SHIFT. PT HAS AN INSULIN PUMP, NO OTHER DME. PT REPORTS HIS PCP IS TARAS RICHARDSON. HE DOES NOT HAVE A HCP, DECLINES TO COMPLETE ONE. IMM DELIVERED CURRENT DC PLAN IS HOME WITH RESUMPTION OF [employer] 2ND SHIFT SERVICES PTS S/O WILL TRANSPORT
[2020-03-26 16:39] LABS: Glucose, Whole Blood 261 mg/dL (60-115)
[2020-03-26] MEDS: 0.9 % Sodium Chloride Flush 3 ML SYRINGE IVFLUSH ×3 (18:17→21:51)
[2020-03-26 21:31] LABS: Glucose, Whole Blood 158 mg/dL (60-115)
[2020-03-26] MEDS: Nortriptyline HCl 25 MG CAPSULE 50 MG PO (21:50)
[2020-03-26] MEDS: Insulin Glargine,Hum.rec.anlog 100 UNIT/ML 10 ML VIAL 20 UNIT SUBCUT (21:51)
[2020-03-27 00:16] LABS: Glucose, Whole Blood 139 mg/dL (60-115)
[2020-03-27] MEDS: Heparin Sodium,Porcine 5,000 UNIT/ML VIAL 5000 UNIT SUBCUT ×2 (02:20→08:39)
[2020-03-27 03:36] VITALS: BP 179/107; PULSE 120; TEMP 37.1; O2SAT 97
[2020-03-27 03:48] LABS: Glucose, Whole Blood 156 mg/dL (60-115)
[2020-03-27] MEDS: KCl 40 mEq in 5% Dex/0.45% Sod 40 MEQ/1,000 ML IV.SOLN 100 MEQ IVCONT ×2 (03:50→13:27)
[2020-03-27] MEDS: HYDROmorphone HCl 0.5 MG/0.5 ML SYRINGE IVPUSH (03:59)
--- NOTE | 2020-03-27 04:32 | PC.NURSE ---
P-BP-179/107 P-120 I- NOTIFIED.NO NEW ORDER AT THIS TIME
[2020-03-27 06:21] LABS: MANUAL DIFF FLAG NO
[2020-03-27 06:24] LABS: Basophils Percent Auto 0.4 % (0-2); Eosinophils Absolute Auto 0.1 X10*3/uL (0.0-0.4); Eosinophils Percent Auto 1.4 % (0-4); Hematocrit 38.5 % (42-52); Hemoglobin 13.6 g/dl (14.0-18.0); Imm Gran Abs Auto 0.02 X10*3/uL (0.00-0.03); Imm Gran Pct Auto 0.2 % (0.0-0.4); Lymphocytes Absolute Auto 2.9 X10*3/uL (1.2-4.9); Lymphocytes Percent Auto 34.3 % (20-40); Mean Corpuscular HGB Conc 35.3 g/dl (31.0-36.0); Mean Corpuscular Hemoglobin 30.7 pg (27.0-33.0); Mean Corpuscular Volume 86.9 fL (80-98); Mean Platelet Volume 9.9 fL (9.4-12.4); Monocytes Absolute Auto 0.6 X10*3/uL (0.1-1.2); Monocytes Percent Auto 7.5 % (2-11); Neutrophils Absolute Auto 4.8 X10*3/uL (2.0-8.3); Neutrophils Percent Auto 56.2 % (45-73); Platelet Count 278 X10*3/uL (160-400); Red Blood Count 4.43 X10*6/uL (4.60-5.80); Red Cell Distribution Width 11.9 % (11.0-16.0); White Blood Count 8.5 X10*3/uL (4.8-10.8)
[2020-03-27 07:08] LABS: Anion Gap 13 (12-20); Blood Urea Nitrogen 9 mg/dL (9-16); Calcium 8.3 mg/dL (8.4-10.2); Carbon Dioxide 27 mmol/L (22-29); Chloride 101 mmol/L (96-108); Creatinine Clr Calc Pharmacy 69.1; Estimated Glomerular Filt Rate > 60; Glucose Random 173 mg/dL (60-115); Potassium 3.8 mmol/L (3.3-5.1); Sodium 137 mmol/L (135-145)
[2020-03-27 07:34] VITALS: BP 158/106; PULSE 113; RESP 18; TEMP 36.7; O2SAT 98
[2020-03-27 07:41] LABS: Glucose, Whole Blood 201 mg/dL (60-115)
[2020-03-27 08:37] VITALS: BP 158/106; PULSE 113
[2020-03-27] MEDS: Atorvastatin Calcium 80 MG TABLET PO (08:37)
[2020-03-27] MEDS: Sucralfate 1 GM TABLET PO ×2 (08:37→12:37)
[2020-03-27] MEDS: Omeprazole 40 MG CAPSULE.DR PO (08:37)
[2020-03-27] MEDS: Gabapentin 600 MG TABLET PO ×2 (08:37→15:42)
[2020-03-27] MEDS: Losartan Potassium 50 MG TABLET PO (08:37)
[2020-03-27 08:38] VITALS: BP 158/106; PULSE 113
[2020-03-27] MEDS: amLODIPine Besylate 10 MG TABLET PO (08:38)
[2020-03-27] MEDS: 0.9 % Sodium Chloride Flush 3 ML SYRINGE IVFLUSH (08:39)
[2020-03-27] MEDS: Insulin Lispro 100 UNIT/ML 3 ML VIAL SUBCUT ×2 (08:39→12:36)
[2020-03-27 09:10] LABS: Estimated Average Glucose 189 mg/dL; Hemoglobin A1c % 8.2 %
[2020-03-27 11:54] VITALS: BP 152/96; PULSE 121; RESP 18; TEMP 37.2; O2SAT 95
[2020-03-27 12:29] LABS: Glucose, Whole Blood 254 mg/dL (60-115)
--- NOTE | 2020-03-27 13:26 | MHC.CM.PN ---
Addendum entered by Joanna Hillman 03/27/20 15:15: CONFIRMED THAT THE ENDOCRINEPHYSICIAN DID CALL DR GODOY AND PATIENTS ABOUT THE INSUIN OUMP SETTINGS, PATIENT HAS APPITNMENT WITH DR ARAUZ 03/28/20 AT 10;30 PATIENT AND HIS ARE AWAre PATIENT DISCHARGED hme today Original Note: NURSE SUPERVISOR WIRE ROPE FABRICATION NOTE ELECTRONIC MEDICAL RECORD REVIEWED ALONG WITH CASE DISCUSSED ON MULTIPLE DISCIPLINARY ROUNDS, SPOKE WITH PATIENT HE REPORTED THAT HIS TAKES CHARGE IN SETTING HIS INSULIN PUMP, [place] [phone] AND SHE ONLY SPEAKS FRISIAN HE IS FOLLOWED AT THE [facility] I CALLED OVER TO THEM AND SPOKE W. I CALLED OVER TO THE [facility] AND WAS INFORMED THAT THE PHYSICIAN PROVIDERS ARE OUT OF THE OFFICE AND WORKING FROM HOME , THEY WILL HAVE ACCESS TO CHECK HIS BLOOD SUGARS AND DIABERTIC MEDICATIONS , THEN PRESCRIBE WHAT SETTING TO SET ON HIS INSULIN PUMP , I ASKED IF THEY WOULD CALL DR WELCH HOSPITALIST WITH THIS INFORMATION ALSO CALL HIS . ANTICIPATE3 POSSIBLE DISCHARGE HOME TODAY NO SERVICES FAMILY TO PROVIDE TRANSPORTATION PCP AND ENDOCRINOLOGY FOLLOW UP [phone] AND SHE ONLY SPEAKS FRISIAN
--- NOTE | 2020-03-27 14:47 | P.DS_ITS ---
DS: Providers Provider Date of Service: 03/27/20 Date of admission: 03/26/20 00:42 Primary care physician: Hong Rodríguez MD DS: Diagnosis Discharge Diagnosis (1) Abdominal pain: Status: Resolved (2) KAYODE (acute kidney injury): Status: Resolved (3) Type 1 diabetes mellitus with hyperglycemia: (4) DKA (diabetic ketoacidoses): Status: Acute (5) Essential hypertension: Status: Acute (6) Acute on chronic kidney failure: Status: Acute DS: Medications Discharge Medications Home Medications: Home Medications Medication Instructions Recorded Confirmed gabapentin 600 mg tablet 600 mg PO TID 01/04/20 03/25/20 insulin pump cartridge #5 ea 01/04/20 02/27/20 losartan 50 mg tablet 50 mg PO DAILY 01/04/20 03/25/20 nortriptyline 50 mg capsule 50 mg PO BEDTIME 01/04/20 03/25/20 omeprazole 40 mg capsule,delayed 40 mg PO DAILY 01/04/20 03/25/20 release tramadol 50 mg tablet 50 mg PO DAILY PRN 01/04/20 03/25/20 trazodone 1 tab PO BEDTIME PRN 03/07/20 03/25/20 Previous Rx's Medication Instructions Recorded insulin lispro 100 unit/mL See Rx Instructions SUBCUT 12/11/19 subcutaneous solution .COMPLEX 30 Days #20 ml atorvastatin 80 mg tablet 80 mg PO DAILY #30 tab 01/04/20 sucralfate 1 gram tablet 1 g PO QID 30 Days #120 tab 02/08/20 amlodipine 5 mg PO DAILY #30 tab 03/12/20 cefuroxime axetil 500 mg PO Q12H #6 tab 03/12/20 polyethylene glycol 3350 17 238 g PO ONCE 1 Days #238 g 03/14/20 gram/dose oral powder DS: Summary Hospital Course Hospital Course: From history physical by admitting hospitalist Tra Quiles MD, 03/25/20: 34 year old man with history of type 1 DM on insulin pump presented with abdominal pain x 2 days. Was hospitalized here at [facility] for similar complaint earlier this month and was treated for colitis. Patient states his symptoms recurred 2 days ago-noted left lower quadrant abd pain associated with episodes of nausea and vomiting. no fevers or diarrhea and no sick contacts. He uses an insulin pump-removed it earlier prior to coming as he states site needed to be changed. Was noted to be hyperglycemic on presentation. He states his helps him manage his sugars but he has seen numbers in the 200-400 range in the last couple of days. No productive cough or dyspnea. He has noted some dysuria for last 2 days. Abd pain was teated with opiates and improved-states it is better now. The patient was admitted to the medical/surgical floor. Abdominal pain and dysuria were attributed to hyperglycemia and resolved DKA and resolved as his blood glucose improved on Lantus and Humalog. 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 Regarding hypertension, losartan was continued and amlodipine dose increased. Serum creatinine improved to baseline with IV fluid hydration. He was discharged home with close follow-up. Time Spent with Patient Time attestation: Total time spent providing and/or coordinating discharge services: 35 Discharge coordination time: Greater than 30 minutes Physical Exam Vital Signs: Vital Signs: Last Vital Signs Temp 98.9 F 03/27/20 11:54 Pulse 121 H 03/27/20 11:54 Resp 18 03/27/20 11:54 BP 152/96 H 03/27/20 11:54 Pulse Ox 95 03/27/20 11:54 Body Mass Index 20.8 Gen: in no acute distress HEENT: sclera anicteric, moist mucus membranes Neck: supple Lungs: clear to auscultation bilaterally Heart: regular rate and rhythm, no murmurs Abd: soft, non-tender, non-distended Ext: no edema Skin: warm/well-perfused Neuro: alert and oriented x3, no focal findings Psych: appropriate affect DS: Data Data Completed and Pending Labs on day of discharge: Laboratory Tests 03/25/20 03/25/20 03/25/20 16:00 17:08 17:08 WBC RBC Hgb Hct MCV MCH MCHC RDW Plt Count MPV Immature Gran % (Auto) Neut % (Auto) Lymph % (Auto) [place] % (Auto) Eos % (Auto) Baso % (Auto) Lymph # (Auto) [place] # (Auto) Eos # (Auto) Baso # (Auto) Abs Immat Gran (auto) Absolute Neuts (auto) Absolute Nucleated RBC Nucleated RBC % (auto) Hold Purple Top PT INR Sodium Potassium Chloride Carbon Dioxide Anion Gap BUN Creatinine Estim Creat Clear Calc Estimated GFR POC Glucose 240 H Random Glucose Estimat Average Glucose Hemoglobin A1c % Lactic Acid Calcium Magnesium Total Bilirubin Direct Bilirubin AST ALT Alkaline Phosphatase Total Protein Albumin Lipase 11 Urine Color Urine Appearance Urine pH Ur Specific [place] Urine Protein Urine Glucose (UA) Urine Ketones Urine Blood Urine Nitrite Ur Leukocyte Esterase Urine RBC Urine WBC Ur Squamous Epith Cells Urine Bacteria Granular Casts Ethyl Alcohol Acetone, Qual Small H Coronavirus (PCR) COVID-19 (SABINE) COVID-19 Clin Com Influenza Type A (PCR) Influenza Type B (PCR) RSV RNA Qual (PCR) 03/25/20 03/25/20 03/25/20 17:09 17:09 17:10 WBC 13.6 H RBC 4.65 Hgb 14.0 Hct 39.2 L MCV 84.3 MCH 30.1 MCHC 35.7 RDW 11.4 Plt Count 305 MPV 10.2 Immature Gran % (Auto) 0.5 H Neut % (Auto) 77.8 H Lymph % (Auto) 12.7 L [place] % (Auto) 8.8 Eos % (Auto) 0.1 Baso % (Auto) 0.1 Lymph # (Auto) 1.7 [place] # (Auto) 1.2 Eos # (Auto) 0.0 Baso # (Auto) 0.0 Abs Immat Gran (auto) 0.07 H Absolute Neuts (auto) 10.6 H Absolute Nucleated RBC 0.000 Nucleated RBC % (auto) 0.0 Hold Purple Top PT 11.9 INR 1.0 Sodium 131 L Potassium 3.5 Chloride 91 L Carbon Dioxide 19 L Anion Gap 25 H BUN 13 Creatinine 1.83 H Estim Creat Clear Calc 51.0 Estimated GFR 42 POC Glucose Random Glucose 347 H D Estimat Average Glucose Hemoglobin A1c % Lactic Acid Calcium 9.0 D Magnesium 1.5 L Total Bilirubin 1.2 H Direct Bilirubin 0.4 AST 21 D ALT 31 Alkaline Phosphatase 96 Total Protein 6.3 L Albumin 3.6 Lipase Urine Color Urine Appearance Urine pH Ur Specific [place] Urine Protein Urine Glucose (UA) Urine Ketones Urine Blood Urine Nitrite Ur Leukocyte Esterase Urine RBC Urine WBC Ur Squamous Epith Cells Urine Bacteria Granular Casts Ethyl Alcohol Acetone, Qual Coronavirus (PCR) COVID-19 (SABINE) COVID-19 Clin Com Influenza Type A (PCR) Influenza Type B (PCR) RSV RNA Qual (PCR) 03/25/20 03/25/20 03/25/20 17:10 17:11 17:23 WBC RBC Hgb Hct MCV MCH MCHC RDW Plt Count MPV Immature Gran % (Auto) Neut % (Auto) Lymph % (Auto) [place] % (Auto) Eos % (Auto) Baso % (Auto) Lymph # (Auto) [place] # (Auto) Eos # (Auto) Baso # (Auto) Abs Immat Gran (auto) Absolute Neuts (auto) Absolute Nucleated RBC Nucleated RBC % (auto) Hold Purple Top SEE NOTE PT INR Sodium Potassium Chloride Carbon Dioxide Anion Gap BUN Creatinine Estim Creat Clear Calc Estimated GFR POC Glucose Random Glucose Estimat Average Glucose Hemoglobin A1c % Lactic Acid 1.6 Calcium Magnesium Total Bilirubin Direct Bilirubin AST ALT Alkaline Phosphatase Total Protein Albumin Lipase Urine Color Urine Appearance Urine pH Ur Specific [place] Urine Protein Urine Glucose (UA) Urine Ketones Urine Blood Urine Nitrite Ur Leukocyte Esterase Urine RBC Urine WBC Ur Squamous Epith Cells Urine Bacteria Granular Casts Ethyl Alcohol Acetone, Qual Coronavirus (PCR) NEGATIVE COVID-19 (SABINE) COVID-19 Clin Com Influenza Type A (PCR) NEGATIVE Influenza Type B (PCR) NEGATIVE RSV RNA Qual (PCR) NEGATIVE 03/25/20 03/25/20 03/25/20 17:23 19:59 20:43 WBC RBC Hgb Hct MCV MCH MCHC RDW Plt Count MPV Immature Gran % (Auto) Neut % (Auto) Lymph % (Auto) [place] % (Auto) Eos % (Auto) Baso % (Auto) Lymph # (Auto) [place] # (Auto) Eos # (Auto) Baso # (Auto) Abs Immat Gran (auto) Absolute Neuts (auto) Absolute Nucleated RBC Nucleated RBC % (auto) Hold Purple Top PT INR Sodium 133 L Potassium 4.2 Chloride 93 L Carbon Dioxide 23 Anion Gap 21 H BUN 15 Creatinine 1.76 H Estim Creat Clear Calc 53.0 Estimated GFR 44 POC Glucose Random Glucose 510 H* Estimat Average Glucose Hemoglobin A1c % Lactic Acid Calcium 7.9 L D Magnesium Total Bilirubin Direct Bilirubin AST ALT Alkaline Phosphatase Total Protein Albumin Lipase Urine Color YELLOW Urine Appearance CLEAR Urine pH 6.0 Ur Specific [place] 1.015 Urine Protein 2+ H Urine Glucose (UA) >=1000 H Urine Ketones 40 Urine Blood 1+ H Urine Nitrite NEG Ur Leukocyte Esterase NEG Urine RBC 0-2 Urine WBC 0-2 Ur Squamous Epith Cells TRACE Urine Bacteria TRACE Granular Casts 0-2 Ethyl Alcohol < 10 Acetone, Qual Coronavirus (PCR) COVID-19 (SABINE) COVID-19 Clin Com Influenza Type A (PCR) Influenza Type B (PCR) RSV RNA Qual (PCR) 03/25/20 03/25/20 03/25/20 21:44 21:59 22:59 WBC RBC Hgb Hct MCV MCH MCHC RDW Plt Count MPV Immature Gran % (Auto) Neut % (Auto) Lymph % (Auto) [place] % (Auto) Eos % (Auto) Baso % (Auto) Lymph # (Auto) [place] # (Auto) Eos # (Auto) Baso # (Auto) Abs Immat Gran (auto) Absolute Neuts (auto) Absolute Nucleated RBC Nucleated RBC % (auto) Hold Purple Top PT INR Sodium Potassium Chloride Carbon Dioxide Anion Gap BUN Creatinine Estim Creat Clear Calc Estimated GFR POC Glucose 470 H* 450 H* Random Glucose Estimat Average Glucose Hemoglobin A1c % Lactic Acid Calcium Magnesium Total Bilirubin Direct Bilirubin AST ALT Alkaline Phosphatase Total Protein Albumin Lipase Urine Color Urine Appearance Urine pH Ur Specific [place] Urine Protein Urine Glucose (UA) Urine Ketones Urine Blood Urine Nitrite Ur Leukocyte Esterase Urine RBC Urine WBC Ur Squamous Epith Cells Urine Bacteria Granular Casts Ethyl Alcohol Acetone, Qual Coronavirus (PCR) COVID-19 (SABINE) Negative COVID-19 Clin Com See Note Influenza Type A (PCR) Influenza Type B (PCR) RSV RNA Qual (PCR) 03/25/20 03/25/20 03/26/20 23:30 23:55 01:05 WBC RBC Hgb Hct MCV MCH MCHC RDW Plt Count MPV Immature Gran % (Auto) Neut % (Auto) Lymph % (Auto) [place] % (Auto) Eos % (Auto) Baso % (Auto) Lymph # (Auto) [place] # (Auto) Eos # (Auto) Baso # (Auto) Abs Immat Gran (auto) Absolute Neuts (auto) Absolute Nucleated RBC Nucleated RBC % (auto) Hold Purple Top PT INR Sodium 134 L Potassium 3.8 Chloride 96 Carbon Dioxide 22 Anion Gap 20 BUN 18 H Creatinine 1.85 H Estim Creat Clear Calc 50.4 Estimated GFR 42 POC Glucose 390 H* 302 H Random Glucose 427 H* Estimat Average Glucose Hemoglobin A1c % Lactic Acid Calcium 8.2 L Magnesium Total Bilirubin Direct Bilirubin AST ALT Alkaline Phosphatase Total Protein Albumin Lipase Urine Color Urine Appearance Urine pH Ur Specific [place] Urine Protein Urine Glucose (UA) Urine Ketones Urine Blood Urine Nitrite Ur Leukocyte Esterase Urine RBC Urine WBC Ur Squamous Epith Cells Urine Bacteria Granular Casts Ethyl Alcohol Acetone, Qual Coronavirus (PCR) COVID-19 (SABINE) COVID-19 Clin Com Influenza Type A (PCR) Influenza Type B (PCR) RSV RNA Qual (PCR) 03/26/20 03/26/20 03/26/20 03:10 04:10 04:31 WBC RBC Hgb Hct MCV MCH MCHC RDW Plt Count MPV Immature Gran % (Auto) Neut % (Auto) Lymph % (Auto) [place] % (Auto) Eos % (Auto) Baso % (Auto) Lymph # (Auto) [place] # (Auto) Eos # (Auto) Baso # (Auto) Abs Immat Gran (auto) Absolute Neuts (auto) Absolute Nucleated RBC Nucleated RBC % (auto) Hold Purple Top PT INR Sodium 138 Potassium 3.6 Chloride 100 Carbon Dioxide 29 Anion Gap 13 BUN 17 H Creatinine 1.64 H Estim Creat Clear Calc 56.9 Estimated GFR 48 POC Glucose 241 H 178 H Random Glucose 196 H D Estimat Average Glucose Hemoglobin A1c % Lactic Acid Calcium 8.0 L Magnesium Total Bilirubin Direct Bilirubin AST ALT Alkaline Phosphatase Total Protein Albumin Lipase Urine Color Urine Appearance Urine pH Ur Specific [place] Urine Protein Urine Glucose (UA) Urine Ketones Urine Blood Urine Nitrite Ur Leukocyte Esterase Urine RBC Urine WBC Ur Squamous Epith Cells Urine Bacteria Granular Casts Ethyl Alcohol Acetone, Qual Coronavirus (PCR) COVID-19 (SABINE) COVID-19 Clin Com Influenza Type A (PCR) Influenza Type B (PCR) RSV RNA Qual (PCR) 03/26/20 03/26/20 03/26/20 06:17 06:21 10:47 WBC RBC Hgb Hct MCV MCH MCHC RDW Plt Count MPV Immature Gran % (Auto) Neut % (Auto) Lymph % (Auto) [place] % (Auto) Eos % (Auto) Baso % (Auto) Lymph # (Auto) [place] # (Auto) Eos # (Auto) Baso # (Auto) Abs Immat Gran (auto) Absolute Neuts (auto) Absolute Nucleated RBC Nucleated RBC % (auto) Hold Purple Top PT INR Sodium 136 Potassium 4.1 Chloride 100 Carbon Dioxide 25 Anion Gap 15 BUN 16 Creatinine 1.49 H Estim Creat Clear Calc 62.6 Estimated GFR 54 POC Glucose 169 H 283 H Random Glucose 179 H Estimat Average Glucose Hemoglobin A1c % Lactic Acid Calcium 8.0 L Magnesium Total Bilirubin Direct Bilirubin AST ALT Alkaline Phosphatase Total Protein Albumin Lipase Urine Color Urine Appearance Urine pH Ur Specific [place] Urine Protein Urine Glucose (UA) Urine Ketones Urine Blood Urine Nitrite Ur Leukocyte Esterase Urine RBC Urine WBC Ur Squamous Epith Cells Urine Bacteria Granular Casts Ethyl Alcohol Acetone, Qual Coronavirus (PCR) COVID-19 (SABINE) COVID-19 Clin Com Influenza Type A (PCR) Influenza Type B (PCR) RSV RNA Qual (PCR) 03/26/20 03/26/20 03/26/20 13:20 16:19 21:26 WBC RBC Hgb Hct MCV MCH MCHC RDW Plt Count MPV Immature Gran % (Auto) Neut % (Auto) Lymph % (Auto) [place] % (Auto) Eos % (Auto) Baso % (Auto) Lymph # (Auto) [place] # (Auto) Eos # (Auto) Baso # (Auto) Abs Immat Gran (auto) Absolute Neuts (auto) Absolute Nucleated RBC Nucleated RBC % (auto) Hold Purple Top PT INR Sodium Potassium Chloride Carbon Dioxide Anion Gap BUN Creatinine Estim Creat Clear Calc Estimated GFR POC Glucose 351 H* 261 H 158 H Random Glucose Estimat Average Glucose Hemoglobin A1c % Lactic Acid Calcium Magnesium Total Bilirubin Direct Bilirubin AST ALT Alkaline Phosphatase Total Protein Albumin Lipase Urine Color Urine Appearance Urine pH Ur Specific [place] Urine Protein Urine Glucose (UA) Urine Ketones Urine Blood Urine Nitrite Ur Leukocyte Esterase Urine RBC Urine WBC Ur Squamous Epith Cells Urine Bacteria Granular Casts Ethyl Alcohol Acetone, Qual Coronavirus (PCR) COVID-19 (SABINE) COVID-19 Clin Com Influenza Type A (PCR) Influenza Type B (PCR) RSV RNA Qual (PCR) 03/27/20 03/27/20 03/27/20 00:12 03:41 05:52 WBC 8.5 RBC 4.43 L Hgb 13.6 L Hct 38.5 L MCV 86.9 MCH 30.7 MCHC 35.3 RDW 11.9 Plt Count 278 MPV 9.9 Immature Gran % (Auto) 0.2 Neut % (Auto) 56.2 Lymph % (Auto) 34.3 [place] % (Auto) 7.5 Eos % (Auto) 1.4 Baso % (Auto) 0.4 Lymph # (Auto) 2.9 [place] # (Auto) 0.6 Eos # (Auto) 0.1 Baso # (Auto) 0.0 Abs Immat Gran (auto) 0.02 Absolute Neuts (auto) 4.8 Absolute Nucleated RBC 0.000 Nucleated RBC % (auto) 0.0 Hold Purple Top PT INR Sodium Potassium Chloride Carbon Dioxide Anion Gap BUN Creatinine Estim Creat Clear Calc Estimated GFR POC Glucose 139 H 156 H Random Glucose Estimat Average Glucose Hemoglobin A1c % Lactic Acid Calcium Magnesium Total Bilirubin Direct Bilirubin AST ALT Alkaline Phosphatase Total Protein Albumin Lipase Urine Color Urine Appearance Urine pH Ur Specific [place] Urine Protein Urine Glucose (UA) Urine Ketones Urine Blood Urine Nitrite Ur Leukocyte Esterase Urine RBC Urine WBC Ur Squamous Epith Cells Urine Bacteria Granular Casts Ethyl Alcohol Acetone, Qual Coronavirus (PCR) COVID-19 (SABINE) COVID-19 Clin Com Influenza Type A (PCR) Influenza Type B (PCR) RSV RNA Qual (PCR) 03/27/20 03/27/20 03/27/20 05:52 05:52 07:34 WBC RBC Hgb Hct MCV MCH MCHC RDW Plt Count MPV Immature Gran % (Auto) Neut % (Auto) Lymph % (Auto) [place] % (Auto) Eos % (Auto) Baso % (Auto) Lymph # (Auto) [place] # (Auto) Eos # (Auto) Baso # (Auto) Abs Immat Gran (auto) Absolute Neuts (auto) Absolute Nucleated RBC Nucleated RBC % (auto) Hold Purple Top PT INR Sodium 137 Potassium 3.8 Chloride 101 Carbon Dioxide 27 Anion Gap 13 BUN 9 Creatinine 1.35 Estim Creat Clear Calc 69.1 Estimated GFR > 60 POC Glucose 201 H Random Glucose 173 H Estimat Average Glucose 189 Hemoglobin A1c % 8.2 Lactic Acid Calcium 8.3 L Magnesium Total Bilirubin Direct Bilirubin AST ALT Alkaline Phosphatase Total Protein Albumin Lipase Urine Color Urine Appearance Urine pH Ur Specific [place] Urine Protein Urine Glucose (UA) Urine Ketones Urine Blood Urine Nitrite Ur Leukocyte Esterase Urine RBC Urine WBC Ur Squamous Epith Cells Urine Bacteria Granular Casts Ethyl Alcohol Acetone, Qual Coronavirus (PCR) COVID-19 (SABINE) COVID-19 Clin Com Influenza Type A (PCR) Influenza Type B (PCR) RSV RNA Qual (PCR) 03/27/20 11:52 WBC RBC Hgb Hct MCV MCH MCHC RDW Plt Count MPV Immature Gran % (Auto) Neut % (Auto) Lymph % (Auto) [place] % (Auto) Eos % (Auto) Baso % (Auto) Lymph # (Auto) [place] # (Auto) Eos # (Auto) Baso # (Auto) Abs Immat Gran (auto) Absolute Neuts (auto) Absolute Nucleated RBC Nucleated RBC % (auto) Hold Purple Top PT INR Sodium Potassium Chloride Carbon Dioxide Anion Gap BUN Creatinine Estim Creat Clear Calc Estimated GFR POC Glucose 254 H Random Glucose Estimat Average Glucose Hemoglobin A1c % Lactic Acid Calcium Magnesium Total Bilirubin Direct Bilirubin AST ALT Alkaline Phosphatase Total Protein Albumin Lipase Urine Color Urine Appearance Urine pH Ur Specific [place] Urine Protein Urine Glucose (UA) Urine Ketones Urine Blood Urine Nitrite Ur Leukocyte Esterase Urine RBC Urine WBC Ur Squamous Epith Cells Urine Bacteria Granular Casts Ethyl Alcohol Acetone, Qual Coronavirus (PCR) COVID-19 (SABINE) COVID-19 Clin Com Influenza Type A (PCR) Influenza Type B (PCR) RSV RNA Qual (PCR) Preliminary micro results at discharge 03/25/20 17:26 Blood Culture - Preliminary Blood - Venous No growth after 24 hours. 03/25/20 17:08 Blood Culture - Preliminary Blood - Venous No growth after 24 hours. ITS Impressions Abdomen Ultrasound 03/25/20 16:41 IMPRESSION: Small hemangioma left hepatic lobe. Right kidney, gallbladder and pancreas appears unremarkable. Abdomen/Pelvis CT 03/25/20 17:53 IMPRESSION: 1. No acute findings identified in the chest. 2. No acute findings identified in the abdomen or pelvis. 3. Redemonstrated are some prominent periaortic lymph nodes, stable from previous. Chest CT 03/25/20 17:53 IMPRESSION: 1. No acute findings identified in the chest. 2. No acute findings identified in the abdomen or pelvis. 3. Redemonstrated are some prominent periaortic lymph nodes, stable from previous. Discharge Plan Discharge Patient Disposition: Home, Self-Care Referrals: Hong Rodríguez MD [Physician] - 1 Week (TELE VISIT: 04/10/2020 2:30PM WILL CALL YOU TO DISCUSS YOUR HOSPITAL STAY. IF YOU CAN'T KEEP THIS APPOINTMENT PLEASE CALL AND RESCHEDULE .) Discharge Medications: New amlodipine 10 mg Tablet 10 mg PO DAILY 30 Days Qty: 30 RF: 0 Continued insulin lispro [Humalog U-100 Insulin] 100 unit/mL solution See Rx Instructions subcut .COMPLEX 30 Days Qty: 20 RF: 3 sucralfate 1 gram tablet 1 g PO QID 30 Days Qty: 120 RF: 3 polyethylene glycol 3350 [Miralax] 17 gram/dose powder 238 g PO ONCE 1 Days Qty: 238 RF: 0 trazodone 100 mg tablet 1 tab PO BEDTIME PRN (Reason: Insomnia) RF: 0 omeprazole 40 mg capsule,delayed release(DR/EC) 40 mg PO DAILY RF: 0 nortriptyline 50 mg capsule 50 mg PO BEDTIME RF: 0 gabapentin 600 mg tablet 600 mg PO TID RF: 0 losartan 50 mg tablet 50 mg PO DAILY RF: 0 (DME) insulin pump cartridge Cartridge See Rx Instructions ea subcut .MEDSUPPLY Qty: 5 RF: 0 tramadol 50 mg tablet 50 mg PO DAILY PRN (Reason: Pain) RF: 0 atorvastatin 80 mg tablet 80 mg PO DAILY Qty: 30 RF: 6 Discontinued amlodipine 5 mg Tablet 5 mg PO DAILY Qty: 30 RF: 0 cefuroxime axetil 500 mg tablet 500 mg PO Q12H Qty: 6 RF: 0 Discharge Orders: Discharge Order (Routine); Ordered 03/27/20 Ordered By: Yodit Painter Diet: diabetic diet Activity on Discharge: As tolerated Stand Alone Forms: Patient Portal Discharge page Visit Report Forms: Patient Portal Discharge page Care Plan Goals: control of high blood sugar and its complications Health Concerns: type 1 diabetes hypertension abdominal pain Plan of Treatment: follow up with [facility] Endocrinology as schecduled by Misty Reynoso; pump settings as recommended by Misty Reynoso your abdominal pain was secondary to elevated blood sugar/diabetic ketoacidosis increase amlodipine from 5 to 10 mg daily follow up with your primary care doctor Dr Rodríguez in 1 week Patient Instructions: Diabetic Ketoacidosis (DC), Diabetes Type 1: Management (DC)
== END 2020-03-27 04:15 | disposition home or self-care (01) | DRG 638 ==
LOC: HO.ED 23:35 → HO.EDOVER 03-26 00:47 → HO.S3 03-26 18:30
PROVIDERS: Nurse Practitioner Family; Physician Assistant Medical; Admitting Provider Internal Medicine; Emergency Provider Emergency Medicine; PCP Internal Medicine Geriatric Medicine; Visit Provider Family Medicine
DX: E10.10 Type 1 diabetes mellitus with ketoacidosis without coma (principal); N17.9 Acute kidney failure, unspecified; K21.9 Gastro-esophageal reflux disease without esophagitis; I12.9 Hypertensive chronic kidney disease with stage 1 through stage 4 chronic kidney disease, or unspecified chronic kidney disease; E78.5 Hyperlipidemia, unspecified; E10.42 Type 1 diabetes mellitus with diabetic polyneuropathy; E10.22 Type 1 diabetes mellitus with diabetic chronic kidney disease; N18.30 Chronic kidney disease, stage 3 unspecified; Z20.822 Contact with and (suspected) exposure to COVID-19; Z96.41 Presence of insulin pump (external) (internal); Z79.891 Long term (current) use of opiate analgesic; Z79.899 Other long term (current) drug therapy
CPT/HCPCS: 0241U; 36415; 71250; 74176; 76700; 80048; 80076; 80320; 81001; 82009; 82947; 83036; 83605; 83690; 83735; 85025; 85610; 87040; 87635; 93005; 96361; 96365; 96375; 96376; 99284; 99291; J1170; J2060; J2270; J2405; J2543; J3475

== ENCOUNTER → 2020-03-28 14:28 | Outpatient (BNVA) | payer MEDICARE, MEDICAID, SELFPAY | PROVIDERS: Visit Provider Internal Medicine Endocrinology, Diabetes & Metabolism | DX: E10.65 Type 1 diabetes mellitus with hyperglycemia (principal); E10.42 Type 1 diabetes mellitus with diabetic polyneuropathy; E10.21 Type 1 diabetes mellitus with diabetic nephropathy; E11.3299 Type 2 diabetes mellitus with mild nonproliferative diabetic retinopathy without macular edema, unspecified eye; I10 Essential (primary) hypertension; E78.5 Hyperlipidemia, unspecified; E83.51 Hypocalcemia | CPT/HCPCS: 82947; 99212 ==

== ENCOUNTER 2020-03-30 00:07 | Emergency (ER) | payer MEDICARE, MEDICAID, SELFPAY ==
[2020-03-30] VITALS (10 sets, daily range): BP systolic 112–193; BP diastolic 62–120; PULSE 96–124; RESP 12–18; TEMP 37.2; O2SAT 95–100; BMI 27.4
--- NOTE | 2020-03-30 00:27 | ED_ITS ---
HPI - General Adult General Chief complaint: General Medical Stated complaint: abd pain nausea Time Seen by Provider: 03/30/20 00:27 Source: patient Limitations: no limitations History of Present Illness HPI narrative: Patient legally blind type 1 diabetes on insulin pump just discharged on 03/27 for similar complaints of vomiting abdominal pain and mild DKA at that time. Comes back as since morning again started throwing up today vomited 3 times complaining of same abdominal pain which has been there multiple times during the last few visits on 11/12 patient endoscopy which showed superficial gastritis patient does have intermitted a episodes of abdominal pain with nausea and vomiting for last 2 years patient does smoke marijuana Related Data Home Medications Medication Instructions Recorded Confirmed gabapentin 600 mg tablet 600 mg PO TID 01/04/20 03/28/20 insulin pump cartridge #5 ea 01/04/20 03/28/20 losartan 50 mg tablet 50 mg PO DAILY 01/04/20 03/28/20 nortriptyline 50 mg capsule 50 mg PO BEDTIME 01/04/20 03/28/20 omeprazole 40 mg capsule,delayed 40 mg PO DAILY 01/04/20 03/28/20 release tramadol 50 mg tablet 50 mg PO DAILY PRN 01/04/20 03/28/20 trazodone 1 tab PO BEDTIME PRN 03/07/20 03/28/20 citalopram 20 mg tablet 20 mg PO DAILY 03/28/20 03/28/20 sertraline 100 mg tablet 100 mg PO DAILY 03/28/20 03/28/20 Previous Rx's Medication Instructions Recorded atorvastatin 80 mg tablet 80 mg PO DAILY #30 tab 01/04/20 sucralfate 1 gram tablet 1 g PO QID 30 Days #120 tab 02/08/20 amlodipine 10 mg PO DAILY 30 Days #30 tab 03/27/20 bisacodyl 5 mg tablet,delayed 10 mg PO ONCE 1 Days #2 tab 03/28/20 release glucose 4 gram chewable tablet 4 g PO Q15M PRN 30 Days #60 tab 03/28/20 insulin lispro 100 unit/mL See Rx Instructions SUBCUT 03/28/20 subcutaneous solution .COMPLEX 30 Days #20 ml polyethylene glycol 3350 17 238 g PO ONCE 1 Days #238 g 03/28/20 gram/dose oral powder Allergies Allergy/AdvReac Type Severity Reaction Status Date / Time No Known Allergies Allergy Unverified 01/04/20 14:52 [No Known Allergies*] Review of Systems Review of Systems: Constitutional : No Weight loss, No Fever, No Chills ENT/Mouth : No sore throat, No Rhinorrhea Eyes: No Eye Pain, No Swelling Cardiovascular : No Chest Pain, no palpitations Respiratory : No Cough, No Sputum, no shortness of breath Gastrointestinal : +Nausea, +Vomiting, No Diarrhea, + abdominal Pain, no black stools Genitourinary : No Dysuria, No Urinary Frequency Musculoskeletal : No joint pain, No Myalgias, No Joint Swelling Skin : No Skin Lesions, No rash Neuro : No Weakness, No Numbness, No Dizziness, No Headache Psych : No Anxiety/Panic, No Depression Heme/Lymph: No Bruising, No Lymphadenopathy Endocrine : No Polyuria, No Polydipsia All other systems reviewed and are negative PMFSH Past Medical History Medical History Acid reflux Background diabetic retinopathy associated with type 2 diabetes mellitus Chronic kidney disease, stage 3 Diabetes type 1, uncontrolled 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 Diabetic polyneuropathy associated with type 1 diabetes mellitus Diabetic visual loss, with retinopathy, associated with type 1 diabetes mellitus Essential hypertension Gastritis Hyperlipidemia LDL goal <70 Hypocalcemia Polyneuropathy Sciatica Type 1 diabetes mellitus with diabetic chronic kidney disease Type 1 diabetes mellitus with hyperglycemia Surgical History Hx of appendectomy Hx of circumcision Hx of eye surgery Family History Family History Father Diabetes mellitus Mother Diabetes mellitus Maternal Grandfather Diabetes mellitus Maternal Grandmother Diabetes mellitus Social History Social History Household Members: Family Housing: Apartment Alcohol intake: never Smoking Status: Never smoker Second Hand Smoke Exposure: No Substance Use Type: Marijuana Advance Directives: No Advance Directives Information Provided: No service: No Current occupational status: disabled Physical Exam Vital Signs: Vital Signs: Last Vital Signs Temp 99.0 F 03/30/20 00:16 Pulse 120 H 03/30/20 00:16 Resp 18 03/30/20 00:16 BP 176/114 H 03/30/20 00:16 Pulse Ox 100 03/30/20 00:16 Body Mass Index 27.4 Const: General: healthy appearing and no acute distress Orientation/consciousness: patient oriented x3 HENMT: Head: Yes normocephalic and Yes atraumatic Ears: hearing grossly normal bilaterally General nose exam: Normal external nose present Mouth: Normal oral and palatal mucosa present Eyes: Other: Legally blind in both eyes Neck: Neck: Yes normal visual inspection Chest: Chest palpation & inspection: normal inspection of the chest and normal palpation of entire chest wall Resp: Effort & Inspection: normal respiratory effort Auscultation: clear to auscultation bilaterally, no crackles and no rales Cardio: Palpation: normal PMI Rate: regular rate Rhythm: regular rhythm Heart sounds: S1 normal heart sound present and S2 normal heart sound present GI: Inspection: Yes normal to inspection Palpation (GI): Soft to palpation, Tenderness to palpation present (GI) in the LUQ and no masses Auscultation: normal bowel sounds : General: Yes no CVA tenderness Back/Spine/Pelvis: Back: no CVA tenderness Thoracic/Lumbar Spine: thoracic and lumbar spine normal to inspection Skin: General skin exam: no rashes or lesions noted Neuro: General: patient oriented x3 and no focal motor deficits Extrem: General: Yes normal to inspection, Yes no calf tenderness and No pedal edema Medical Decision Making MDM Narrative Medical decision making narrative: Patient with chronic gastritis and gastroparesis type 1 diabetes mellitus comes here for vomiting similar to that last week when he was admitted patient also smokes marijuana. Give him Zofran Compazine IV and IV fluids observe patient blood pressure is elevated missed his medication amlodipine in the morning will give him labetalol 20 IV for blood pressure of 190/116 patient signed out to Dr. Mcdowell pending labs and d isposition Lab Data Lab results reviewed: Yes I reviewed the patient's lab results. Labs: Lab Results 03/30/20 Range/Units 00:47 POC Glucose 142 H (60-115) mg/dL Discharge Plan Discharge Clinical Impression: Diabetes mellitus with gastroparesis Patient Disposition: Home, Self-Care Prescriptions: No Action sucralfate 1 gram tablet 1 g PO QID 30 Days Qty: 120 RF: 3 insulin lispro [Humalog U-100 Insulin] 100 unit/mL solution See Rx Instructions subcut .COMPLEX 30 Days Qty: 20 RF: 3 bisacodyl [Dulcolax (bisacodyl)] 5 mg tablet,delayed release (DR/EC) 10 mg PO ONCE 1 Days Qty: 2 RF: 0 polyethylene glycol 3350 [Miralax] 17 gram/dose powder 238 g PO ONCE 1 Days Qty: 238 RF: 0 trazodone 100 mg tablet 1 tab PO BEDTIME PRN (Reason: Insomnia) RF: 0 amlodipine 10 mg Tablet 10 mg PO DAILY 30 Days Qty: 30 RF: 0 omeprazole 40 mg capsule,delayed release(DR/EC) 40 mg PO DAILY RF: 0 nortriptyline 50 mg capsule 50 mg PO BEDTIME RF: 0 gabapentin 600 mg tablet 600 mg PO TID RF: 0 losartan 50 mg tablet 50 mg PO DAILY RF: 0 (DME) insulin pump cartridge Cartridge See Rx Instructions ea subcut .MEDSUPPLY Qty: 5 RF: 0 tramadol 50 mg tablet 50 mg PO DAILY PRN (Reason: Pain) RF: 0 atorvastatin 80 mg tablet 80 mg PO DAILY Qty: 30 RF: 6 citalopram 20 mg tablet 20 mg PO DAILY RF: 0 sertraline 100 mg tablet 100 mg PO DAILY RF: 0 glucose [Dex4 Glucose] 4 gram tablet,chewable 4 g PO Q15M PRN (Reason: hypoglycemia) 30 Days Qty: 60 RF: 5
[2020-03-30] MEDS: 0.9 % Sodium Chloride 1,000 ML 999 ML IVCONT (00:47)
[2020-03-30 01:04] LABS: Glucose, Whole Blood 142 mg/dL (60-115)
[2020-03-30] MEDS: LORazepam 2 MG/ML VIAL 1 MG IVPUSH (01:54)
[2020-03-30] MEDS: amLODIPine Besylate 10 MG TABLET PO (01:55)
[2020-03-30] MEDS: Prochlorperazine Edisylate 10 MG/2 ML VIAL IVPUSH (01:55)
[2020-03-30] MEDS: Labetalol HCL 100 MG/20 ML VIAL 20 MG IVPUSH (01:56)
[2020-03-30] MEDS: Famotidine/PF 20 MG/2 ML VIAL IVPUSH (01:59)
--- NOTE | 2020-03-30 01:59 | PC.NURSE ---
pt moved from 22h to bed 16 due to monitor bed needed.
[2020-03-30 03:01] LABS: Basophils Percent Auto 0.3 % (0-2); Eosinophils Percent Auto 0.1 % (0-4); Hematocrit 35.2 % (42-52); Hemoglobin 12.2 g/dl (14.0-18.0); Imm Gran Abs Auto 0.01 X10*3/uL (0.00-0.03); Imm Gran Pct Auto 0.1 % (0.0-0.4); Lymphocytes Percent Auto 13.4 % (20-40); MANUAL DIFF FLAG NO; Mean Corpuscular HGB Conc 34.7 g/dl (31.0-36.0); Mean Corpuscular Hemoglobin 30.3 pg (27.0-33.0); Mean Corpuscular Volume 87.3 fL (80-98); Mean Platelet Volume 9.6 fL (9.4-12.4); Monocytes Absolute Auto 0.4 X10*3/uL (0.1-1.2); Monocytes Percent Auto 4.9 % (2-11); Neutrophils Absolute Auto 6.3 X10*3/uL (2.0-8.3); Neutrophils Percent Auto 81.2 % (45-73); Platelet Count 232 X10*3/uL (160-400); Red Blood Count 4.03 X10*6/uL (4.60-5.80); Red Cell Distribution Width 11.5 % (11.0-16.0); White Blood Count 7.8 X10*3/uL (4.8-10.8)
[2020-03-30 03:31] LABS: Alanine Aminotransferase 21 U/L (0-40); Albumin Level 3.2 g/dL (3.5-5.0); Alkaline Phosphatase 79 U/L (39-117); Anion Gap 15 (12-20); Aspartate Amino Transferase 15 U/L (5-37); Bilirubin Direct 0.2 mg/dL (0.0-0.5); Bilirubin Total 0.6 mg/dL (0.0-1.0); Blood Urea Nitrogen 9 mg/dL (9-16); Calcium 8.2 mg/dL (8.4-10.2); Carbon Dioxide 27 mmol/L (22-29); Chloride 101 mmol/L (96-108); Creatinine Clr Calc Pharmacy 63.1; Estimated Glomerular Filt Rate 54; Glucose Random 183 mg/dL (60-115); Lipase 6 U/L (8-78); Potassium 3.5 mmol/L (3.3-5.1); Sodium 139 mmol/L (135-145); Total Protein 5.5 g/dL (6.5-8.0)
== END 2020-03-30 04:37 | disposition home or self-care (01) ==
PROVIDERS: Emergency Provider Internal Medicine
DX: E10.43 Type 1 diabetes mellitus with diabetic autonomic (poly)neuropathy (principal); E10.22 Type 1 diabetes mellitus with diabetic chronic kidney disease; I12.9 Hypertensive chronic kidney disease with stage 1 through stage 4 chronic kidney disease, or unspecified chronic kidney disease; N18.30 Chronic kidney disease, stage 3 unspecified; Z79.4 Long term (current) use of insulin; Z96.41 Presence of insulin pump (external) (internal)
CPT/HCPCS: 36415; 80048; 80076; 82947; 83690; 85025; 96361; 96374; 96375; 99284; J2060

== ENCOUNTER 2020-03-31 07:45 | Outpatient (REF) | payer MEDICAID, SELFPAY ==
[2020-03-31 08:55] LABS: Alanine Aminotransferase 34 U/L (0-40); Albumin Level 3.3 g/dL (3.5-5.0); Alkaline Phosphatase 78 U/L (39-117); Anion Gap 12 (12-20); Aspartate Amino Transferase 25 U/L (5-37); Bilirubin Total 0.5 mg/dL (0.0-1.0); Blood Urea Nitrogen 10 mg/dL (9-16); Calcium 8.8 mg/dL (8.4-10.2); Carbon Dioxide 32 mmol/L (22-29); Chloride 102 mmol/L (96-108); Cholesterol 204 mg/dL; Estimated Glomerular Filt Rate 44; Glucose Fasting 85 mg/dL (60-99); HDL Cholesterol 45 mg/dL; LDL Cholesterol Calculated 120 mg/dl; Magnesium 1.8 mg/dL (1.6-2.6); Potassium 4.1 mmol/L (3.3-5.1); Sodium 142 mmol/L (135-145); Total Protein 5.8 g/dL (6.5-8.0); Triglycerides 197 mg/dL
[2020-03-31 09:16] LABS: Free T4 (Free Thyroxine) 1.16 ng/dL (0.71-1.85); Thyroid Stimulating Hormone 0.51 uIU/mL (0.32-4.0); Vitamin D 25-OH Total 21.5 ng/mL (>30)
[2020-04-01 08:17] LABS: LDL Cholesterol Direct 122 mg/dL (<100)
[2020-04-02 18:12] LABS: DHEA Sulfate 131 mcg/dL (106-464)
[2020-04-02 18:37] LABS: Calcium (PTHI) 9.2 mg/dL (8.6-10.3); PTHI 79 pg/mL (14-64)
[2020-04-02 23:18] LABS: Adrenocorticotropic Hormone 13 pg/mL (6-50)
[2020-04-07 15:52] LABS: VITAMIN D (1,25 OH) D3 53 pg/mL; Vit D (1,25-Dihydroxy) Total 53 pg/mL (18-72); Vitamin D (1,25 OH) D2 <8 pg/mL
== END 2020-03-31 07:46 | disposition home or self-care (01) ==
LOC: HO.LAB 07:45
PROVIDERS: PCP Internal Medicine Geriatric Medicine; Visit Provider Internal Medicine Endocrinology, Diabetes & Metabolism
DX: E10.65 Type 1 diabetes mellitus with hyperglycemia (principal); E83.51 Hypocalcemia
CPT/HCPCS: 36415; 80053; 80061; 82024; 82306; 82533; 82627; 82652; 83721; 83735; 83970; 84439; 84443

== ENCOUNTER 2020-04-12 09:04 | Inpatient (IN) | payer MEDICARE, MEDICAID, SELFPAY ==
[2020-04-12] VITALS (9 sets, daily range): BP systolic 150–198; BP diastolic 99–111; PULSE 116–130; RESP 13–22; TEMP 37.3; O2SAT 98–99; BMI 22.8
--- NOTE | ~2020-04-12 | CT_ITS ---
EXAMINATION: CT ABDOMEN AND PELVIS WITHOUT CONTRAST CLINICAL INFORMATION: Nausea vomiting and diarrhea. History of colitis. COMPARISON: March 25, 2020 and August 25, 2019 TECHNIQUE: Multidetector volumetric imaging was performed from the superior aspect of the liver through the pubic symphysis. Sagittal and coronal reformatted images were obtained on the technologist's workstation. This CT examination was performed using dose optimization techniques as appropriate, variously including the following: *Automated exposure control *Adjustment of mA and/or kV according to patient size (this includes techniques or standardized protocols for targeted exams where dose is matched to indication/reason for exam; i.e. extremities or head) *Use of iterative reconstruction technique DLP: 387 mGy-cm FINDINGS: LUNG BASES: The visualized lung bases are unremarkable. No pleural or pericardial effusion. LIVER, GALLBLADDER, AND BILIARY TREE: The liver is normal in size, shape, and attenuation. No focal hepatic lesion or biliary ductal dilatation is present. There is a small focal region of fatty infiltration along the falciform ligament. The gallbladder is unremarkable with no evidence of radiopaque gallstones, gallbladder wall thickening, or obvious pericholecystic inflammatory changes. PANCREAS: There is indistinctness of the head of the pancreas with some peripancreatic inflammatory change within the surrounding fat consistent with acute pancreatitis. No free fluid is identified and no pancreatic duct dilatation is seen. About the superior dorsal aspect of the pancreas is an adjacent low-density region measuring approximately 1.4 x 1.1 cm in size which may represent other inflammatory change within fat or possible early collection of fluid. SPLEEN: Unremarkable. ADRENAL GLANDS: Unremarkable. KIDNEYS AND URETERS: The kidneys are normal in size, shape, and attenuation. No hydronephrosis, hydroureter, or calculi seen. No perinephric stranding. BLADDER: Unremarkable. GASTROINTESTINAL TRACT: No dilated loops of large or small bowel. No free air or significant free fluid. No pericolonic inflammatory change. No evidence of acute diverticulitis. Appendix is not visualized. ABDOMINAL WALL: No significant hernia is appreciated. LYMPH NODES: There are some prominent periaortic lymph nodes present with a 1 cm lymph node about the left para-aortic region there are also some prominent mesenteric lymph nodes present as well such as anterior to the aorta on image [address] series #3 which measures 1.1 cm in short axis diameter.. VASCULAR: Unremarkable. PELVIC VISCERA: Unremarkable. OSSEOUS STRUCTURES: No acute destructive bony lesions identified. CT/CT abdomen pelvis wo con IMPRESSION: Findings consistent with acute pancreatitis without significant abdominal free fluid. Mild retroperitoneal and mesenteric adenopathy.
--- NOTE | 2020-04-12 11:35 | ED.ABDPAIN ---
HPI - Abdominal Pain General Chief Complaint: Abdominal Pain Stated Complaint: ABD PAIN Time Seen by Provider: 04/12/20 11:26 Source: patient and EMS Mode of arrival: EMS Limitations: no limitations History of Present Illness HPI narrative: 34 y/o male with history of DM1 (diagnosed at age 6), on an insulin pump, hx DKA, CKD, diabetic retinopathy with blindness, polyneuropathy, HTN, hx recent admission for mild DKA, KAYODE and colitis who presents to the ED reporting 2 days of LLQ & central abdominal pain, associated with nausea, vomiting and diarrhea. He is a vague historian. He cannot recall his last glucose but reports compliance with his insulin. He last ate food yesterday but vomited it back up. Unable to assess for blood in stool or vomitus due to blindness. He reports 2 episodes of diarrhea today. No fever, chills, myalgaias, headache, SOB, chest pain. No sick contacts. MD elicited complaint: abdominal pain Pertinent past history: gastritis and other (colitis) Onset (ago): day(s) (2) Pain Consistency: constant Location: LLQ Severity: severe Quality: cramping and stabbing Radiation: none Migration to: no migration Exacerbating factors: nothing Relieving factors: nothing Context: history of similar episodes Associated symptoms: nausea, vomiting and diarrhea Related Data Home Medications Medication Instructions Recorded Confirmed gabapentin 600 mg tablet 600 mg PO TID 01/04/20 04/12/20 insulin pump cartridge #5 [id number] 01/04/20 03/30/20 losartan 50 mg tablet 50 mg PO DAILY 01/04/20 04/12/20 nortriptyline 50 mg capsule 50 mg PO BEDTIME 01/04/20 04/12/20 omeprazole 40 mg capsule,delayed 40 mg PO DAILY@0630 01/04/20 04/12/20 release tramadol 50 mg tablet 50 mg PO DAILY PRN 01/04/20 04/12/20 trazodone 100 mg PO BEDTIME PRN 03/07/20 04/12/20 citalopram 20 mg tablet 20 mg PO DAILY 03/28/20 04/12/20 sertraline 100 mg tablet 100 mg PO DAILY 03/28/20 04/12/20 Previous Rx's Medication Instructions Recorded atorvastatin 80 mg tablet 80 mg PO DAILY #30 tab 01/04/20 sucralfate 1 gram tablet 1 g PO QID 30 Days #120 tab 02/08/20 amlodipine 10 mg PO DAILY 30 Days #30 tab 03/27/20 glucose 4 gram chewable tablet 4 g PO Q15M PRN 30 Days #60 tab 03/28/20 insulin lispro 100 unit/mL See Rx Instructions SUBCUT 03/28/20 subcutaneous solution .COMPLEX 30 Days #20 ml metoclopramide HCl [Reglan] 10 mg PO Q6H PRN #20 tab 03/30/20 cholecalciferol (vitamin D3) 50 50 mcg PO DAILY 30 Days #30 cap 04/05/20 mcg (2,000 unit) capsule ezetimibe 10 mg tablet 10 mg PO DAILY 90 Days #90 tab 04/05/20 Allergies Allergy/AdvReac Type Severity Reaction Status Date / Time No Known Allergies Allergy Unverified 01/04/20 14:52 [No Known Allergies*] Review of Systems Review of Systems Constitutional: No Fever, No Chills ENT/Mouth: No sore throat, No Rhinorrhea, No Swallowing Difficulty Cardiovascular: No Chest Pain, No SOB, No Orthopnea, No Edema Respiratory: No Cough, No Sputum, No Wheezing, No dyspnea Gastrointestinal: + Nausea, + Vomiting, + Diarrhea, + abdominal Pain, No Hematochezia, No Melena Genitourinary: No Dysuria, No Urinary Frequency, No Hematuria Musculoskeletal: No joint pain, No Myalgias Skin: No Skin Lesions, No rash Neuro: No Weakness, No Numbness, No Dizziness, No Headache Psych: No Anxiety/Panic, No Depression Heme/Lymph: No Bruising, No Lymphadenopathy Endocrine: No Polyuria, No Polydipsia Physical Exam Vital Signs: Vital Signs: Last Vital Signs Temp 99.1 F 04/12/20 11:46 Pulse 130 H 04/12/20 14:43 Resp 18 04/12/20 14:43 BP 171/104 H 04/12/20 14:43 Pulse Ox 99 04/12/20 14:43 Body Mass Index 22.8 Appearance: Alert. Oriented X3. Appears uncomfortable. Eyes: bilateral corneal opacification consistent with known history of blindness ENT: Pharynx normal. Neck: Normal inspection. Neck supple. CVS: Normal heart rate and rhythm. Pulses normal. Respiratory: No respiratory distress. Breath sounds normal. Abdomen: thin, soft and with tenderness and guarding in LLQ, +epigastric tenderness, normal +BS x4 Skin: Skin warm and dry. Normal skin color. Normal skin turgor. No rashes. Extremities: No lower extremity edema. Thin, atrauamtic. Neuro: Oriented X 3. No motor deficit. No sensory deficit. Course Course Course Narrative: 34 y/o male with history of DM1 on insulin pump, hx DKA, CKD, recent colitis who presents to the ED reporting left lower abdominal pain, nausea, vomiting and 2 episodes of diarrhea. He is a poor historian. Cannot tell me what his last glucose level was. His insulin pump is in place on his abdominal wall. Denies history of gastroparesis. Will start with IV reglan, IVF and IV morphine as he reports significant pain and appears uncomfortable. Will need to r/o DKA and infection. Labs and POC glucose pending. Reevaluation(s) Reevaluation #1: Labs show WBC 12.3, likely reactive. CKD at baseline. VBG with pH 7.62, likely combination respiratory and contraction alkalosis - will give 2L IVF and repeat. He has a history of alkalosis in the past. Will get dry CT to assess for recurrent colitis vs other intraabdominal pathology. Pain persists - additional morphine ordered. Reevaluation #2: HR remains 110-120 after 2nd dose of morphine. He states his pain is improved, no further nausea. CT scan read it pending. Reevaluation #3: CT scan showing findings consistent with acute pancreatitis. There is indistinctness of the head of the pancreas with some peripancreatic inflammatory change within the surrounding fat consistent with acute pancreatitis. No free fluid is identified and no pancreatic duct dilatation is seen. About the superior dorsal aspect of the pancreas is an adjacent low-density region measuring approximately 1.4 x 1.1 cm in size which may represent other inflammatory change within fat or possible early collection of fluid. Lipase is normal. LFTs are unremarkable. Etiology unclear. Will keep NPO and admit to the hospital for further management. Spoke with Stephie Mcdonough at 4pm who will admit the patient. MDM - Abdominal Pain Differential Diagnosis Differential diagnosis: Likely abdominal pain, acute appendicitis, bowel perforation, calculus of kidney, constipation, diverticulitis, gastroenteritis, gastritis, pancreatitis, peptic ulcer disease, renal colic and small bowel obstruction Medical Records Attestation: I reviewed the patient's medical records. Lab Data Attestation: I reviewed the patient's lab results. Result diagrams: 04/12/20 12:10 04/12/20 12:10 Labs: Lab Results 04/12/20 04/12/20 04/12/20 Range/Units 12:10 12:10 12:10 WBC 12.3 H (4.8-10.8) X10*3/uL RBC 4.70 (4.60-5.80) X10*6/uL Hgb 14.2 (14.0-18.0) g/dl Hct 40.3 L (42-52) % MCV 85.7 (80-98) fL MCH 30.2 (27.0-33.0) pg MCHC 35.2 (31.0-36.0) g/dl RDW 11.6 (11.0-16.0) % Plt Count 321 D (160-400) X10*3/uL MPV 9.9 (9.4-12.4) fL Immature Gran % (Auto) 0.3 (0.0-0.4) % Neut % (Auto) 77.1 H (45-73) % Lymph % (Auto) 16.2 L (20-40) % Leake % (Auto) 5.6 (2-11) % Eos % (Auto) 0.4 (0-4) % Baso % (Auto) 0.4 (0-2) % Lymph # (Auto) 2.0 (1.2-4.9) X10*3/uL [place]ake # (Auto) 0.7 (0.1-1.2) X10*3/uL Eos # (Auto) 0.1 (0.0-0.4) X10*3/uL Baso # (Auto) 0.1 (0.0-0.2) X10*3/uL Abs Immat Gran (auto) 0.04 H (0.00-0.03) X10*3/uL Absolute Neuts (auto) 9.5 H (2.0-8.3) X10*3/uL Absolute Nucleated RBC 0.000 (0.0-0.012) X10*3/uL Nucleated RBC % (auto) 0.0 (0.0-0.2) /100WBC Hold Blue Top SEE NOTE VBG pH (7.32-7.43) VBG pCO2 mmHg VBG pO2 mmHg VBG HCO3 mmol/L VBG O2 Saturation % VBG Base Excess mmol/L Sodium 140 (135-145) mmol/L Potassium 3.4 (3.3-5.1) mmol/L Chloride 100 (96-108) mmol/L Carbon Dioxide 27 (22-29) mmol/L Anion Gap 16 (12-20) BUN 9 (9-16) mg/dL Creatinine 1.58 H (0.5-1.4) mg/dL Estim Creat Clear Calc 62.7 Estimated GFR 50 POC Glucose (60-115) mg/dL Random Glucose 155 H (60-115) mg/dL Estimat Average Glucose mg/dL Hemoglobin A1c % % Lactic Acid (0.5-2.0) mmol/L Calcium 9.3 (8.4-10.2) mg/dL Magnesium 1.5 L (1.6-2.6) mg/dL Total Bilirubin 0.8 (0.0-1.0) mg/dL Direct Bilirubin 0.3 (0.0-0.5) mg/dL AST 15 (5-37) U/L ALT 23 (0-40) U/L Alkaline Phosphatase 89 (39-117) U/L Troponin I High Sens (<3.5-35.0) ng/L Total Protein 6.6 (6.5-8.0) g/dL Albumin 4.0 D (3.5-5.0) g/dL Lipase 13 (8-78) U/L Urine Color Urine Appearance Urine pH (5.0-8.0) Ur Specific [place] (1.005-1.025) Urine Protein (NEG-TRACE) MG/DL Urine Glucose (UA) (NEG) MG/DL Urine Ketones (NEG) MG/DL Urine Blood (NEG) Urine Nitrite (NEG) Ur Leukocyte Esterase (NEG) Urine RBC (0) /HPF Urine WBC (0-4) /HPF Ur Squamous Epith Cells /LPF Urine Bacteria /LPF Urine Opiates Screen (Not Detect) Ur Barbiturates Screen (Not Detect) Ur Phencyclidine Scrn (Not Detect) Ur Amphetamines Screen (Not Detect) U Benzodiazepines Scrn (Not Detect) Urine Cocaine Screen (Not Detect) U Marijuana (THC) Screen (Not Detect) Ethyl Alcohol mg/dL Acetone, Qual Small H (Negative) COVID-19 (SABINE) (Negative) COVID-19 Clin Com 04/12/20 04/12/20 04/12/20 Range/Units 12:10 12:10 12:10 WBC (4.8-10.8) X10*3/uL RBC (4.60-5.80) X10*6/uL Hgb (14.0-18.0) g/dl Hct (42-52) % MCV (80-98) fL MCH (27.0-33.0) pg MCHC (31.0-36.0) g/dl RDW (11.0-16.0) % Plt Count (160-400) X10*3/uL MPV (9.4-12.4) fL Immature Gran % (Auto) (0.0-0.4) % Neut % (Auto) (45-73) % Lymph % (Auto) (20-40) % [place]ake % (Auto) (2-11) % Eos % (Auto) (0-4) % Baso % (Auto) (0-2) % Lymph # (Auto) (1.2-4.9) X10*3/uL [place] # (Auto) (0.1-1.2) X10*3/uL Eos # (Auto) (0.0-0.4) X10*3/uL Baso # (Auto) (0.0-0.2) X10*3/uL Abs Immat Gran (auto) (0.00-0.03) X10*3/uL Absolute Neuts (auto) (2.0-8.3) X10*3/uL Absolute Nucleated RBC (0.0-0.012) X10*3/uL Nucleated RBC % (auto) (0.0-0.2) /100WBC Hold Blue Top VBG pH (7.32-7.43) VBG pCO2 mmHg VBG pO2 mmHg VBG HCO3 mmol/L VBG O2 Saturation % VBG Base Excess mmol/L Sodium (135-145) mmol/L Potassium (3.3-5.1) mmol/L Chloride (96-108) mmol/L Carbon Dioxide (22-29) mmol/L Anion Gap (12-20) BUN (9-16) mg/dL Creatinine (0.5-1.4) mg/dL Estim Creat Clear Calc Estimated GFR POC Glucose (60-115) mg/dL Random Glucose (60-115) mg/dL Estimat Average Glucose mg/dL Hemoglobin A1c % % Lactic Acid 1.4 (0.5-2.0) mmol/L Calcium (8.4-10.2) mg/dL Magnesium (1.6-2.6) mg/dL Total Bilirubin (0.0-1.0) mg/dL Direct Bilirubin (0.0-0.5) mg/dL AST (5-37) U/L ALT (0-40) U/L Alkaline Phosphatase (39-117) U/L Troponin I High Sens < 3.5 (<3.5-35.0) ng/L Total Protein (6.5-8.0) g/dL Albumin (3.5-5.0) g/dL Lipase (8-78) U/L Urine Color Urine Appearance Urine pH (5.0-8.0) Ur Specific [place] (1.005-1.025) Urine Protein (NEG-TRACE) MG/DL Urine Glucose (UA) (NEG) MG/DL Urine Ketones (NEG) MG/DL Urine Blood (NEG) Urine Nitrite (NEG) Ur Leukocyte Esterase (NEG) Urine RBC (0) /HPF Urine WBC (0-4) /HPF Ur Squamous Epith Cells /LPF Urine Bacteria /LPF Urine Opiates Screen (Not Detect) Ur Barbiturates Screen (Not Detect) Ur Phencyclidine Scrn (Not Detect) Ur Amphetamines Screen (Not Detect) U Benzodiazepines Scrn (Not Detect) Urine Cocaine Screen (Not Detect) U Marijuana (THC) Screen (Not Detect) Ethyl Alcohol < 10 mg/dL Acetone, Qual (Negative) COVID-19 (SABINE) (Negative) COVID-19 Clin Com 04/12/20 04/12/20 04/12/20 Range/Units 12:10 12:10 12:10 WBC (4.8-10.8) X10*3/uL RBC (4.60-5.80) X10*6/uL Hgb (14.0-18.0) g/dl Hct (42-52) % MCV (80-98) fL MCH (27.0-33.0) pg MCHC (31.0-36.0) g/dl RDW (11.0-16.0) % Plt Count (160-400) X10*3/uL MPV (9.4-12.4) fL Immature Gran % (Auto) (0.0-0.4) % Neut % (Auto) (45-73) % Lymph % (Auto) (20-40) % [place]ake % (Auto) (2-11) % Eos % (Auto) (0-4) % Baso % (Auto) (0-2) % Lymph # (Auto) (1.2-4.9) X10*3/uL [place] # (Auto) (0.1-1.2) X10*3/uL Eos # (Auto) (0.0-0.4) X10*3/uL Baso # (Auto) (0.0-0.2) X10*3/uL Abs Immat Gran (auto) (0.00-0.03) X10*3/uL Absolute Neuts (auto) (2.0-8.3) X10*3/uL Absolute Nucleated RBC (0.0-0.012) X10*3/uL Nucleated RBC % (auto) (0.0-0.2) /100WBC Hold Blue Top VBG pH 7.62 H* (7.32-7.43) VBG pCO2 28 mmHg VBG pO2 95 mmHg VBG HCO3 29 mmol/L VBG O2 Saturation 98.0 % VBG Base Excess 8.8 mmol/L Sodium (135-145) mmol/L Potassium (3.3-5.1) mmol/L Chloride (96-108) mmol/L Carbon Dioxide (22-29) mmol/L Anion Gap (12-20) BUN (9-16) mg/dL Creatinine (0.5-1.4) mg/dL Estim Creat Clear Calc Estimated GFR POC Glucose (60-115) mg/dL Random Glucose (60-115) mg/dL Estimat Average Glucose 160 mg/dL Hemoglobin A1c % 7.2 % Lactic Acid (0.5-2.0) mmol/L Calcium (8.4-10.2) mg/dL Magnesium (1.6-2.6) mg/dL Total Bilirubin (0.0-1.0) mg/dL Direct Bilirubin (0.0-0.5) mg/dL AST (5-37) U/L ALT (0-40) U/L Alkaline Phosphatase (39-117) U/L Troponin I High Sens (<3.5-35.0) ng/L Total Protein (6.5-8.0) g/dL Albumin (3.5-5.0) g/dL Lipase (8-78) U/L Urine Color Urine Appearance Urine pH (5.0-8.0) Ur Specific [place] (1.005-1.025) Urine Protein (NEG-TRACE) MG/DL Urine Glucose (UA) (NEG) MG/DL Urine Ketones (NEG) MG/DL Urine Blood (NEG) Urine Nitrite (NEG) Ur Leukocyte Esterase (NEG) Urine RBC (0) /HPF Urine WBC (0-4) /HPF Ur Squamous Epith Cells /LPF Urine Bacteria /LPF Urine Opiates Screen (Not Detect) Ur Barbiturates Screen (Not Detect) Ur Phencyclidine Scrn (Not Detect) Ur Amphetamines Screen (Not Detect) U Benzodiazepines Scrn (Not Detect) Urine Cocaine Screen (Not Detect) U Marijuana (THC) Screen (Not Detect) Ethyl Alcohol mg/dL Acetone, Qual (Negative) COVID-19 (SABINE) Negative (Negative) COVID-19 Clin Com See Note 04/12/20 04/12/20 04/12/20 Range/Units 12:12 14:45 14:45 WBC (4.8-10.8) X10*3/uL RBC (4.60-5.80) X10*6/uL Hgb (14.0-18.0) g/dl Hct (42-52) % MCV (80-98) fL MCH (27.0-33.0) pg MCHC (31.0-36.0) g/dl RDW (11.0-16.0) % Plt Count (160-400) X10*3/uL MPV (9.4-12.4) fL Immature Gran % (Auto) (0.0-0.4) % Neut % (Auto) (45-73) % Lymph % (Auto) (20-40) % [place]ake % (Auto) (2-11) % Eos % (Auto) (0-4) % Baso % (Auto) (0-2) % Lymph # (Auto) (1.2-4.9) X10*3/uL [place] # (Auto) (0.1-1.2) X10*3/uL Eos # (Auto) (0.0-0.4) X10*3/uL Baso # (Auto) (0.0-0.2) X10*3/uL Abs Immat Gran (auto) (0.00-0.03) X10*3/uL Absolute Neuts (auto) (2.0-8.3) X10*3/uL Absolute Nucleated RBC (0.0-0.012) X10*3/uL Nucleated RBC % (auto) (0.0-0.2) /100WBC Hold Blue Top VBG pH (7.32-7.43) VBG pCO2 mmHg VBG pO2 mmHg VBG HCO3 mmol/L VBG O2 Saturation % VBG Base Excess mmol/L Sodium (135-145) mmol/L Potassium (3.3-5.1) mmol/L Chloride (96-108) mmol/L Carbon Dioxide (22-29) mmol/L Anion Gap (12-20) BUN (9-16) mg/dL Creatinine (0.5-1.4) mg/dL Estim Creat Clear Calc Estimated GFR POC Glucose 160 H (60-115) mg/dL Random Glucose (60-115) mg/dL Estimat Average Glucose mg/dL Hemoglobin A1c % % Lactic Acid (0.5-2.0) mmol/L Calcium (8.4-10.2) mg/dL Magnesium (1.6-2.6) mg/dL Total Bilirubin (0.0-1.0) mg/dL Direct Bilirubin (0.0-0.5) mg/dL AST (5-37) U/L ALT (0-40) U/L Alkaline Phosphatase (39-117) U/L Troponin I High Sens (<3.5-35.0) ng/L Total Protein (6.5-8.0) g/dL Albumin (3.5-5.0) g/dL Lipase (8-78) U/L Urine Color YELLOW Urine Appearance CLEAR Urine pH 8.5 H (5.0-8.0) Ur Specific [place] 1.020 (1.005-1.025) Urine Protein 3+ H (NEG-TRACE) MG/DL Urine Glucose (UA) 100 H (NEG) MG/DL Urine Ketones 15 (NEG) MG/DL Urine Blood NEG (NEG) Urine Nitrite NEG (NEG) Ur Leukocyte Esterase NEG (NEG) Urine RBC 1-4 (0) /HPF Urine WBC 1-4 (0-4) /HPF Ur Squamous Epith Cells 1+ /LPF Urine Bacteria NONE /LPF Urine Opiates Screen POSITIVE H (Not Detect) Ur Barbiturates Screen Not Detected (Not Detect) Ur Phencyclidine Scrn Not Detected (Not Detect) Ur Amphetamines Screen Not Detected (Not Detect) U Benzodiazepines Scrn Not Detected (Not Detect) Urine Cocaine Screen Not Detected (Not Detect) U Marijuana (THC) Screen Not Detected (Not Detect) Ethyl Alcohol mg/dL Acetone, Qual (Negative) COVID-19 (SABINE) (Negative) COVID-19 Clin Com 04/12/20 Range/Units 15:00 WBC (4.8-10.8) X10*3/uL RBC (4.60-5.80) X10*6/uL Hgb (14.0-18.0) g/dl Hct (42-52) % MCV (80-98) fL MCH (27.0-33.0) pg MCHC (31.0-36.0) g/dl RDW (11.0-16.0) % Plt Count (160-400) X10*3/uL MPV (9.4-12.4) fL Immature Gran % (Auto) (0.0-0.4) % Neut % (Auto) (45-73) % Lymph % (Auto) (20-40) % [place] % (Auto) (2-11) % Eos % (Auto) (0-4) % Baso % (Auto) (0-2) % Lymph # (Auto) (1.2-4.9) X10*3/uL [place] # (Auto) (0.1-1.2) X10*3/uL Eos # (Auto) (0.0-0.4) X10*3/uL Baso # (Auto) (0.0-0.2) X10*3/uL Abs Immat Gran (auto) (0.00-0.03) X10*3/uL Absolute Neuts (auto) (2.0-8.3) X10*3/uL Absolute Nucleated RBC (0.0-0.012) X10*3/uL Nucleated RBC % (auto) (0.0-0.2) /100WBC Hold Blue Top VBG pH 7.42 (7.32-7.43) VBG pCO2 mmHg VBG pO2 mmHg VBG HCO3 mmol/L VBG O2 Saturation % VBG Base Excess mmol/L Sodium (135-145) mmol/L Potassium (3.3-5.1) mmol/L Chloride (96-108) mmol/L Carbon Dioxide (22-29) mmol/L Anion Gap (12-20) BUN (9-16) mg/dL Creatinine (0.5-1.4) mg/dL Estim Creat Clear Calc Estimated GFR POC Glucose (60-115) mg/dL Random Glucose (60-115) mg/dL Estimat Average Glucose mg/dL Hemoglobin A1c % % Lactic Acid (0.5-2.0) mmol/L Calcium (8.4-10.2) mg/dL Magnesium (1.6-2.6) mg/dL Total Bilirubin (0.0-1.0) mg/dL Direct Bilirubin (0.0-0.5) mg/dL AST (5-37) U/L ALT (0-40) U/L Alkaline Phosphatase (39-117) U/L Troponin I High Sens (<3.5-35.0) ng/L Total Protein (6.5-8.0) g/dL Albumin (3.5-5.0) g/dL Lipase (8-78) U/L Urine Color Urine Appearance Urine pH (5.0-8.0) Ur Specific [place] (1.005-1.025) Urine Protein (NEG-TRACE) MG/DL Urine Glucose (UA) (NEG) MG/DL Urine Ketones (NEG) MG/DL Urine Blood (NEG) Urine Nitrite (NEG) Ur Leukocyte Esterase (NEG) Urine RBC (0) /HPF Urine WBC (0-4) /HPF Ur Squamous Epith Cells /LPF Urine Bacteria /LPF Urine Opiates Screen (Not Detect) Ur Barbiturates Screen (Not Detect) Ur Phencyclidine Scrn (Not Detect) Ur Amphetamines Screen (Not Detect) U Benzodiazepines Scrn (Not Detect) Urine Cocaine Screen (Not Detect) U Marijuana (THC) Screen (Not Detect) Ethyl Alcohol mg/dL Acetone, Qual (Negative) COVID-19 (SABINE) (Negative) COVID-19 Clin Com Critical Care Time Critical Care Time Critical Care Time: Yes Total Critical Care Time: 40 Attestation: I attest to critical care time spent caring for this patient with metabolic derangements, acute pancretitis, and abdominal pain requiring multiple doses of IV fluid and IV pain medications. He required frequent bedside reassessments. Time spent reviewing old records and coordinating care. Discharge Plan Discharge Clinical Impression: Pancreatitis Patient Disposition: Admitted As Inpatient [facility] Past Medical History Attestation statement: The following information was validated with the patient. Medical History Acid reflux Background diabetic retinopathy associated with type 2 diabetes mellitus Chronic kidney disease, stage 3 Diabetes type 1, uncontrolled 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 Diabetic polyneuropathy associated with type 1 diabetes mellitus Diabetic visual loss, with retinopathy, associated with type 1 diabetes mellitus Essential hypertension Gastritis Hemangioma of liver Hyperlipidemia LDL goal <70 Hypocalcemia Legally blind Polyneuropathy Sciatica Type 1 diabetes mellitus with diabetic chronic kidney disease Type 1 diabetes mellitus with hyperglycemia Vitamin D deficiency Surgical History Hx of appendectomy Hx of circumcision Hx of eye surgery Family History Family History Father Diabetes mellitus Mother Diabetes mellitus Maternal Grandfather Diabetes mellitus Maternal Grandmother Diabetes mellitus Social History Social History Household Members: Family Housing: Apartment Alcohol intake: current Alcohol intake frequency: does not drink Smoking Status: Never smoker Second Hand Smoke Exposure: No Use of substances other than those prescribed or required for medical reasons: No Substance Use Type: Marijuana Advance Directives: No Advance Directives Information Provided: Yes service: No Current occupational status: disabled
[2020-04-12 12:15] LABS: Glucose, Whole Blood 160 mg/dL (60-115)
[2020-04-12 12:25] LABS: Base Excess VBG 8.8 mmol/L
[2020-04-12 12:26] LABS: HCO3 VBG 29 mmol/L; PCO2 VBG 28 mmHg; PO2 VBG 95 mmHg
[2020-04-12] MEDS: Metoclopramide HCl 10 MG/2 ML VIAL IVPUSH (12:26)
[2020-04-12] MEDS: Morphine Sulfate 4 MG/ML CARTRIDGE IVPUSH ×2 (12:26→13:41)
[2020-04-12] MEDS: 0.9 % Sodium Chloride 1,000 ML 999 ML IVCONT ×2 (12:26→14:06)
[2020-04-12 12:28] LABS: pH VBG 7.62 (7.32-7.43)
[2020-04-12 12:34] LABS: Basophils Absolute Auto 0.1 X10*3/uL (0.0-0.2); Basophils Percent Auto 0.4 % (0-2); Eosinophils Absolute Auto 0.1 X10*3/uL (0.0-0.4); Eosinophils Percent Auto 0.4 % (0-4); Hematocrit 40.3 % (42-52); Hemoglobin 14.2 g/dl (14.0-18.0); Imm Gran Abs Auto 0.04 X10*3/uL (0.00-0.03); Imm Gran Pct Auto 0.3 % (0.0-0.4); Lymphocytes Percent Auto 16.2 % (20-40); MANUAL DIFF FLAG NO; Mean Corpuscular HGB Conc 35.2 g/dl (31.0-36.0); Mean Corpuscular Hemoglobin 30.2 pg (27.0-33.0); Mean Corpuscular Volume 85.7 fL (80-98); Mean Platelet Volume 9.9 fL (9.4-12.4); Monocytes Absolute Auto 0.7 X10*3/uL (0.1-1.2); Monocytes Percent Auto 5.6 % (2-11); Neutrophils Absolute Auto 9.5 X10*3/uL (2.0-8.3); Neutrophils Percent Auto 77.1 % (45-73); Platelet Count 321 X10*3/uL (160-400); Red Cell Distribution Width 11.6 % (11.0-16.0); White Blood Count 12.3 X10*3/uL (4.8-10.8)
[2020-04-12 12:41] LABS: Lactic Acid 1.4 mmol/L (0.5-2.0)
[2020-04-12 12:42] LABS: Ethanol < 10 mg/dL
[2020-04-12 12:43] LABS: COVID-19 Test Negative (Negative)
[2020-04-12 12:45] LABS: Alanine Aminotransferase 23 U/L (0-40); Alkaline Phosphatase 89 U/L (39-117); Anion Gap 16 (12-20); Aspartate Amino Transferase 15 U/L (5-37); Bilirubin Direct 0.3 mg/dL (0.0-0.5); Bilirubin Total 0.8 mg/dL (0.0-1.0); Blood Urea Nitrogen 9 mg/dL (9-16); Calcium 9.3 mg/dL (8.4-10.2); Carbon Dioxide 27 mmol/L (22-29); Chloride 100 mmol/L (96-108); Creatinine Clr Calc Pharmacy 62.7; Estimated Glomerular Filt Rate 50; Glucose Random 155 mg/dL (60-115); Lipase 13 U/L (8-78); Magnesium 1.5 mg/dL (1.6-2.6); Potassium 3.4 mmol/L (3.3-5.1); Sodium 140 mmol/L (135-145); Total Protein 6.6 g/dL (6.5-8.0)
[2020-04-12 12:51] LABS: Troponin-I High Sensitivity < 3.5 ng/L (<3.5-35.0)
[2020-04-12 13:17] LABS: Acetone, serum QL Small (Negative)
[2020-04-12 13:51] LABS: Estimated Average Glucose 160 mg/dL; Hemoglobin A1c % 7.2 %
[2020-04-12] MEDS: Magnesium Sulfate/D5W 1 GM/100 ML PIGGYBACK IV (14:42)
[2020-04-12 14:57] LABS: Glucose Urine UA 100 MG/DL (NEG); Leukocyte Esterase Urine NEG (NEG); Nitrite Urine NEG (NEG); PH 8.5 (5.0-8.0); Urine Blood NEG (NEG); Urine Ketones 15 MG/DL (NEG)
[2020-04-12 14:58] LABS: Urine Protein 3+ MG/DL (NEG-TRACE)
[2020-04-12 14:59] LABS: Appearance Urine CLEAR; Color Urine YELLOW
[2020-04-12 15:07] LABS: pH VBG 7.42 (7.32-7.43)
[2020-04-12 15:09] LABS: Squamous Epithelial Cell Urine 1+ /LPF
[2020-04-12 15:20] LABS: Amphetamine Screen Urine Not Detected (Not Detect); Barbiturates, Urine Not Detected (Not Detect); Benzodiazepines Screen Urine Not Detected (Not Detect); Cannabinoid Screen Urine Not Detected (Not Detect); Cocaine Screen Urine Not Detected (Not Detect); Opiate Screen Urine POSITIVE (Not Detect); Phencyclidine Screen Urine Not Detected (Not Detect)
--- NOTE | 2020-04-12 16:21 | PC.NURSE ---
Plan for admission, pt aware/agreeable. States pain decreased to 3/10 at this time and appears comfortbale. HR trending down 115
[2020-04-12 16:58] LABS: Glucose, Whole Blood 224 mg/dL (60-115)
[2020-04-12] MEDS: Sucralfate 1 GM TABLET PO ×2 (17:11→21:27)
[2020-04-12] MEDS: Lactated Ringers 1,000 ML 150 ML IVCONT (17:11)
[2020-04-12] MEDS: Insulin Lispro 100 UNIT/ML 3 ML VIAL SUBCUT ×2 (17:28→21:27)
--- NOTE | 2020-04-12 18:10 | P.HPHOSP_ITS ---
History of Present Illness Date of Service: 04/12/20 Chief Complaint: Abdominal pain 34-year-old man with multiple medical problems including type 1 diabetes presents to the ER with complaints of abdominal pain. He reported 2 days of left lower quadrant and central abdominal pain associated with nausea vomiting a nd diarrhea. He is in a significant amount of pain during this interview and is somewhat vague about history. He did report a poor appetite and fairly good control of his blood sugars. He was admitted in February with DKA and colitis. He denied fever did report some chills. Abdominal CT showed acute pancreatitis without free fluid. He denies any heavy alcohol intake. Creatinine at baseline, blood sugar ranging from 162-124, no DKA. He was given IV fluids in the ER, Reglan, morphine and IV magnesium. Patient be admitted for further management and treatment of acute pancreatitis. Review of Systems Review of Systems: Denies any recent fever chills or decrease in appetite respiratory denies any shortness of breath coverage production cardiovascular is adjustment of any PND or edema gastrointestinal See HPI genitourinary denies any dysuria frequency or hematuria musculoskeletal denies any joint pain or swelling neuropsych denies any weakness or seizures all other systems reviewed are negative [facility] Medical History (Updated 04/12/20 @ 18:12 by Stephie Mcdonough NP) Acid reflux Chronic kidney disease, stage 3 Diabetes type 1, uncontrolled 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 Diabetic visual loss, with retinopathy, associated with type 1 diabetes mellitus Essential hypertension Gastritis Hemangioma of liver Hypocalcemia Legally blind Polyneuropathy Sciatica Vitamin D deficiency Family History Father Diabetes mellitus Mother Diabetes mellitus Maternal Grandfather Diabetes mellitus Maternal Grandmother Diabetes mellitus Surgical History Hx of appendectomy Hx of circumcision Hx of eye surgery Social History Household Members: Family Housing: Apartment Alcohol intake: current Alcohol intake frequency: does not drink Smoking Status: Never smoker Second Hand Smoke Exposure: No Use of substances other than those prescribed or required for medical reasons: No Substance Use Type: Marijuana Advance Directives: No Advance Directives Information Provided: Yes service: No Current occupational status: disabled Meds Allergies Allergy/AdvReac Type Severity Reaction Status Date / Time No Known Allergies Allergy Unverified 01/04/20 14:52 [No Known Allergies*] Active Medications: Current Medications Generic Name Dose Route Start Last Admin Trade Name Angelica PRN Reason Stop Dose Admin Acetaminophen 650 mg 04/12/20 16:43 Acetaminophen 325 Mg Tablet PO Q6H PRN Pain, Mild (Pain Scale 1-3) Amlodipine Besylate 10 mg 04/13/20 09:00 Amlodipine Besylate 10 Mg Tablet PO DAILY [facility] Protocol Atorvastatin Calcium 80 mg 04/13/20 09:00 Atorvastatin Calcium 80 Mg Tablet PO DAILY [facility] Ezetimibe 10 mg 04/13/20 09:00 Ezetimibe 10 Mg Tablet PO DAILY [facility] Escitalopram Oxalate 10 mg 04/13/20 09:00 Escitalopram Oxalate 10 Mg Tablet PO DAILY [facility] Gabapentin 600 mg 04/12/20 21:00 Gabapentin 600 Mg Tablet PO TID [facility] Hydromorphone HCl 0.25 mg 04/12/20 18:09 Hydromorphone Hcl 0.5 Mg/0.5 Ml Syringe IVPUSH Q4H PRN pain Lactated Ringer's 1,000 mls @ 150 mls/hr 04/12/20 16:45 04/12/20 17:11 Lr IVCONT 150 mls/hr .Q6H40M [facility] Administration Insulin Human Lispro 0 unit 04/12/20 17:05 04/12/20 17:28 Insulin Lispro 100 Unit/Ml 3 Ml Vial SUBCUT 4 unit QIDACHS [facility] Administration Protocol Losartan Potassium 50 mg 04/13/20 09:00 Losartan Potassium 50 Mg Tablet PO DAILY [facility] Protocol Nortriptyline HCl 50 mg 04/12/20 21:00 Nortriptyline Hcl 25 Mg Capsule PO BEDTIME [facility] Omeprazole 40 mg 04/13/20 06:30 Omeprazole 40 Mg Capsule.Dr PO DAILY@0630 [facility] Ondansetron HCl 4 mg 04/12/20 16:43 Ondansetron Hcl 4 Mg/2 Ml Vial IVPUSH Q8H PRN Nausea and Vomiting Pharmacy Consult 1 each 04/12/20 11:33 Consult Rx Perform Med Rec MISCELLANE ONCE PRN Consult order Sertraline HCl 100 mg 04/13/20 09:00 Sertraline Hcl 100 Mg Tablet PO DAILY [facility] Sodium Chloride 3 ml 04/13/20 00:00 0.9 % Sodium Chloride Flush 3 Ml Syringe IVFLUSH QSHIFT [facility] Sucralfate 1 gm 04/12/20 17:00 04/12/20 17:11 Sucralfate 1 Gm Tablet PO 1 gm QID [facility] Administration Tramadol HCl 50 mg 04/12/20 16:43 Tramadol Hcl 50 Mg Tablet PO DAILY PRN Pain Trazodone HCl 100 mg 04/12/20 16:43 Trazodone Hcl 100 Mg Tablet PO BEDTIME PRN Insomnia Vitamin D 50 mcg 04/13/20 09:00 Cholecalciferol (Vitamin D3) 25 Mcg Tablet PO DAILY [facility] Home Medications Medication Instructions Recorded Confirmed Last Taken Type gabapentin 600 mg tablet 600 mg PO TID 01/04/20 04/12/20 04/11/20 History insulin pump cartridge #5 [id number] 01/04/20 03/30/20 Unknown History losartan 50 mg tablet 50 mg PO DAILY 01/04/20 04/12/20 04/11/20 History nortriptyline 50 mg capsule 50 mg PO BEDTIME 01/04/20 04/12/20 04/11/20 History omeprazole 40 mg capsule,delayed 40 mg PO DAILY@0630 01/04/20 04/12/20 04/11/20 History release tramadol 50 mg tablet 50 mg PO DAILY PRN 01/04/20 04/12/20 03/06/20 History trazodone 100 mg PO BEDTIME PRN 03/07/20 04/12/20 03/06/20 History citalopram 20 mg tablet 20 mg PO DAILY 03/28/20 04/12/20 04/11/20 History sertraline 100 mg tablet 100 mg PO DAILY 03/28/20 04/12/20 04/11/20 History Physical Exam Vital Signs and Narrative: Vital Signs: Last Vital Signs Temp 99.1 F 04/12/20 11:46 Pulse 122 H 04/12/20 17:14 Resp 16 04/12/20 17:14 BP 162/101 H 04/12/20 17:14 Pulse Ox 98 04/12/20 17:14 Body Mass Index 22.8 Results Labs CBC and Chem 7: 04/13/20 05:32 04/13/20 05:32 Labs: Laboratory Results - last 24 hr 04/12/20 04/12/20 04/12/20 12:10 12:10 12:10 MCV 85.7 MCH 30.2 MCHC 35.2 RDW 11.6 Plt Count 321 D MPV 9.9 Immature Gran % (Auto) 0.3 Neut % (Auto) 77.1 H Lymph % (Auto) 16.2 L Taylor % (Auto) 5.6 Eos % (Auto) 0.4 Baso % (Auto) 0.4 Lymph # (Auto) 2.0 Taylor # (Auto) 0.7 Eos # (Auto) 0.1 Baso # (Auto) 0.1 Abs Immat Gran (auto) 0.04 H Absolute Neuts (auto) 9.5 H Absolute Nucleated RBC 0.000 Nucleated RBC % (auto) 0.0 Hold Blue Top SEE NOTE VBG pH VBG pCO2 VBG pO2 VBG HCO3 VBG O2 Saturation VBG Base Excess Anion Gap 16 Estim Creat Clear Calc 62.7 Estimated GFR 50 POC Glucose Random Glucose 155 H Estimat Average Glucose Hemoglobin A1c % Lactic Acid Calcium 9.3 Magnesium 1.5 L Total Bilirubin 0.8 Direct Bilirubin 0.3 AST 15 ALT 23 Alkaline Phosphatase 89 Troponin I High Sens Total Protein 6.6 Albumin 4.0 D Lipase 13 Urine Color Urine Appearance Urine pH Ur Specific [place] Urine Protein Urine Glucose (UA) Urine Ketones Urine Blood Urine Nitrite Ur Leukocyte Esterase Urine RBC Urine WBC Ur Squamous Epith Cells Urine Bacteria Urine Opiates Screen Ur Barbiturates Screen Ur Phencyclidine Scrn Ur Amphetamines Screen U Benzodiazepines Scrn Urine Cocaine Screen U Marijuana (THC) Screen Ethyl Alcohol Acetone, Qual Small H COVID-19 (SABINE) COVID-19 Clin Com 04/12/20 04/12/20 04/12/20 12:10 12:10 12:10 MCV MCH MCHC RDW Plt Count MPV Immature Gran % (Auto) Neut % (Auto) Lymph % (Auto) Taylor % (Auto) Eos % (Auto) Baso % (Auto) Lymph # (Auto) Taylor # (Auto) Eos # (Auto) Baso # (Auto) Abs Immat Gran (auto) Absolute Neuts (auto) Absolute Nucleated RBC Nucleated RBC % (auto) Hold Blue Top VBG pH VBG pCO2 VBG pO2 VBG HCO3 VBG O2 Saturation VBG Base Excess Anion Gap Estim Creat Clear Calc Estimated GFR POC Glucose Random Glucose Estimat Average Glucose Hemoglobin A1c % Lactic Acid 1.4 Calcium Magnesium Total Bilirubin Direct Bilirubin AST ALT Alkaline Phosphatase Troponin I High Sens < 3.5 Total Protein Albumin Lipase Urine Color Urine Appearance Urine pH Ur Specific [place] Urine Protein Urine Glucose (UA) Urine Ketones Urine Blood Urine Nitrite Ur Leukocyte Esterase Urine RBC Urine WBC Ur Squamous Epith Cells Urine Bacteria Urine Opiates Screen Ur Barbiturates Screen Ur Phencyclidine Scrn Ur Amphetamines Screen U Benzodiazepines Scrn Urine Cocaine Screen U Marijuana (THC) Screen Ethyl Alcohol < 10 Acetone, Qual COVID-19 (SABINE) COVID-19 [employer] 04/12/20 04/12/20 04/12/20 12:10 12:10 12:10 MCV MCH MCHC RDW Plt Count MPV Immature Gran % (Auto) Neut % (Auto) Lymph % (Auto) Taylor % (Auto) Eos % (Auto) Baso % (Auto) Lymph # (Auto) Taylor # (Auto) Eos # (Auto) Baso # (Auto) Abs Immat Gran (auto) Absolute Neuts (auto) Absolute Nucleated RBC Nucleated RBC % (auto) Hold Blue Top VBG pH 7.62 H* VBG pCO2 28 VBG pO2 95 VBG HCO3 29 VBG O2 Saturation 98.0 VBG Base Excess 8.8 Anion Gap Estim Creat Clear Calc Estimated GFR POC Glucose Random Glucose Estimat Average Glucose 160 Hemoglobin A1c % 7.2 Lactic Acid Calcium Magnesium Total Bilirubin Direct Bilirubin AST ALT Alkaline Phosphatase Troponin I High Sens Total Protein Albumin Lipase Urine Color Urine Appearance Urine pH Ur Specific [place] Urine Protein Urine Glucose (UA) Urine Ketones Urine Blood Urine Nitrite Ur Leukocyte Esterase Urine RBC Urine WBC Ur Squamous Epith Cells Urine Bacteria Urine Opiates Screen Ur Barbiturates Screen Ur Phencyclidine Scrn Ur Amphetamines Screen U Benzodiazepines Scrn Urine Cocaine Screen U Marijuana (THC) Screen Ethyl Alcohol Acetone, Qual COVID-19 (SABINE) Negative COVID-[employer] See Note 04/12/20 04/12/20 04/12/20 12:12 14:45 14:45 MCV MCH MCHC RDW Plt Count MPV Immature Gran % (Auto) Neut % (Auto) Lymph % (Auto) Taylor % (Auto) Eos % (Auto) Baso % (Auto) Lymph # (Auto) Taylor # (Auto) Eos # (Auto) Baso # (Auto) Abs Immat Gran (auto) Absolute Neuts (auto) Absolute Nucleated RBC Nucleated RBC % (auto) Hold Blue Top VBG pH VBG pCO2 VBG pO2 VBG HCO3 VBG O2 Saturation VBG Base Excess Anion Gap Estim Creat Clear Calc Estimated GFR POC Glucose 160 H Random Glucose Estimat Average Glucose Hemoglobin A1c % Lactic Acid Calcium Magnesium Total Bilirubin Direct Bilirubin AST ALT Alkaline Phosphatase Troponin I High Sens Total Protein Albumin Lipase Urine Color YELLOW Urine Appearance CLEAR Urine pH 8.5 H Ur Specific [place] 1.020 Urine Protein 3+ H Urine Glucose (UA) 100 H Urine Ketones 15 Urine Blood NEG Urine Nitrite NEG Ur Leukocyte Esterase NEG Urine RBC 1-4 Urine WBC 1-4 Ur Squamous Epith Cells 1+ Urine Bacteria NONE Urine Opiates Screen POSITIVE H Ur Barbiturates Screen Not Detected Ur Phencyclidine Scrn Not Detected Ur Amphetamines Screen Not Detected U Benzodiazepines Scrn Not Detected Urine Cocaine Screen Not Detected U Marijuana (THC) Screen Not Detected Ethyl Alcohol Acetone, Qual COVID-19 (SABINE) COVID-19 [employer] Com 04/12/20 04/12/20 15:00 16:55 MCV MCH MCHC RDW Plt Count MPV Immature Gran % (Auto) Neut % (Auto) Lymph % (Auto) Taylor % (Auto) Eos % (Auto) Baso % (Auto) Lymph # (Auto) Taylor # (Auto) Eos # (Auto) Baso # (Auto) Abs Immat Gran (auto) Absolute Neuts (auto) Absolute Nucleated RBC Nucleated RBC % (auto) Hold Blue Top VBG pH 7.42 VBG pCO2 VBG pO2 VBG HCO3 VBG O2 Saturation VBG Base Excess Anion Gap Estim Creat Clear Calc Estimated GFR POC Glucose 224 H Random Glucose Estimat Average Glucose Hemoglobin A1c % Lactic Acid Calcium Magnesium Total Bilirubin Direct Bilirubin AST ALT Alkaline Phosphatase Troponin I High Sens Total Protein Albumin Lipase Urine Color Urine Appearance Urine pH Ur Specific [place] Urine Protein Urine Glucose (UA) Urine Ketones Urine Blood Urine Nitrite Ur Leukocyte Esterase Urine RBC Urine WBC Ur Squamous Epith Cells Urine Bacteria Urine Opiates Screen Ur Barbiturates Screen Ur Phencyclidine Scrn Ur Amphetamines Screen U Benzodiazepines Scrn Urine Cocaine Screen U Marijuana (THC) Screen Ethyl Alcohol Acetone, Qual COVID-19 (SABINE) COVID-19 Clin Com Imaging Radiologist's Impressions: Impressions Abdomen/Pelvis CT 04/12/20 13:21 IMPRESSION: Findings consistent with acute pancreatitis without significant abdominal free fluid. Mild retroperitoneal and mesenteric adenopathy. Assessment and Plan (1) Pancreatitis: Status: Acute 34-year-old man admitted with acute pancreatitis, denies abuse, history of diabetes. Pancreatitis. Aggressive IV fluid hydration, GI consultation, pain medication, liquid diet for now if tolerated. Hypomagnesemia. Mild. Repleted in the ER. Recheck Mag in the morning. Type 1 diabetes. Sliding scale, liquid diet for now, change to ADA diet when tolerated. CKD. Baseline. Hypertension. Elevated, likely related to pain. Continue losartan, amlodipine. Hyperlipidemia. Continue statin Anxiety/depression. Continue citalopram, nortriptyline, trazodone. DVT prophylaxis with heparin Discussed with Dr. Servin Full code
[2020-04-12] MEDS: HYDROmorphone HCl 0.5 MG/0.5 ML SYRINGE 0.25 MG IVPUSH (18:31)
--- NOTE | 2020-04-12 18:37 | PM.EVENT ---
Event Note Date of Service: 04/12/20 Event Note: Patient seen and examined: Patient came with abdominal pain after patient has recent colitis-are patient was in [facility] and was treated for that subsequently 2 days back he again started to have abdominal pain left fside area, Also had nausea and vomited twice at home. So decided to come to the hospital This patient is seen and examined with APC. Lab imaging, EKG reviewed. Seems like lipase negative but patient has question of pancreatitis on the CT abdomen Physical exam : Cvs: rrr, [id number] , no murmur res: clear to auscultation ,no rhonchii or wheezing abd: no rebound or guarding ,left upper abd/flank pain seems to be improving, bs present. ext pulses present , no cyanosis neuro: axo3 , nonfocal. assessment and plan coordinated in APCs note, Agree with the plan in addition: Continue IV fluid and pain management GI evaluation.
[2020-04-12] MEDS: amLODIPine Besylate 10 MG TABLET PO (20:16)
[2020-04-12] MEDS: HYDROmorphone HCl 0.5 MG/0.5 ML SYRINGE IVPUSH (20:30)
[2020-04-12 21:22] LABS: Glucose, Whole Blood 263 mg/dL (60-115)
[2020-04-12] MEDS: traZODone HCL 100 MG TABLET PO (21:27)
[2020-04-12] MEDS: Nortriptyline HCl 25 MG CAPSULE 50 MG PO (21:27)
[2020-04-12] MEDS: Gabapentin 600 MG TABLET PO (21:27)
[2020-04-13] VITALS (10 sets, daily range): BP systolic 121–178; BP diastolic 68–105; PULSE 70–136; RESP 10–18; TEMP 36.6–36.8; O2SAT 95–97
[2020-04-13] MEDS: Lactated Ringers 1,000 ML 150 ML IVCONT ×4 (00:45→22:39)
[2020-04-13] MEDS: ondansetron HCL 4 MG/2 ML VIAL IVPUSH ×2 (02:22→14:19)
[2020-04-13] MEDS: HYDROmorphone HCl 0.5 MG/0.5 ML SYRINGE 0.25 MG IVPUSH ×4 (02:22→23:07)
[2020-04-13 02:30] LABS: Glucose, Whole Blood 298 mg/dL (60-115)
[2020-04-13] MEDS: Insulin Lispro 100 UNIT/ML 3 ML VIAL SUBCUT ×5 (04:18→23:11)
--- NOTE | 2020-04-13 04:23 | PC.NURSE ---
PT POC 298, PER HOSPITALIST WILL GIVE HUMALOG PER SLIDING SCALE- 6 UNITS GIVEN.
--- NOTE | 2020-04-13 05:00 | PC.NURSE ---
HOSPITALIST UPDATED- PT REMAINS TACHY AT THIS TIME, W/INCREASED HYPERTENSION. STATES HE WILL PUT IN FOR D-DIMER AND F/U W/PE STUDY IF NEEDED.
[2020-04-13] MEDS: LORazepam 1 MG TABLET PO ×2 (05:10→14:19)
[2020-04-13] MEDS: Labetalol HCL 100 MG/20 ML VIAL 10 MG IVPUSH (05:11)
[2020-04-13 05:47] LABS: Basophils Percent Auto 0.4 % (0-2); Hematocrit 33.7 % (42-52); Hemoglobin 11.8 g/dl (14.0-18.0); Imm Gran Abs Auto 0.02 X10*3/uL (0.00-0.03); Imm Gran Pct Auto 0.2 % (0.0-0.4); Lymphocytes Percent Auto 9.8 % (20-40); MANUAL DIFF FLAG NO; Mean Corpuscular Hemoglobin 30.8 pg (27.0-33.0); Mean Platelet Volume 9.8 fL (9.4-12.4); Monocytes Absolute Auto 0.5 X10*3/uL (0.1-1.2); Monocytes Percent Auto 4.9 % (2-11); Neutrophils Absolute Auto 8.6 X10*3/uL (2.0-8.3); Neutrophils Percent Auto 84.7 % (45-73); Platelet Count 253 X10*3/uL (160-400); Red Blood Count 3.83 X10*6/uL (4.60-5.80); Red Cell Distribution Width 11.7 % (11.0-16.0); White Blood Count 10.2 X10*3/uL (4.8-10.8)
[2020-04-13 06:08] LABS: D Dimer < 200 NG/ML
[2020-04-13 06:21] LABS: Anion Gap 17 (12-20); Blood Urea Nitrogen 13 mg/dL (9-16); Calcium 8.1 mg/dL (8.4-10.2); Carbon Dioxide 23 mmol/L (22-29); Chloride 101 mmol/L (96-108); Creatinine Clr Calc Pharmacy 69.3; Estimated Glomerular Filt Rate 56; Glucose Random 399 mg/dL (60-115); Magnesium 1.5 mg/dL (1.6-2.6); Sodium 137 mmol/L (135-145); Triglycerides 91 mg/dL
[2020-04-13 07:40] LABS: Glucose, Whole Blood 288 mg/dL (60-115)
--- NOTE | 2020-04-13 09:00 | MHC.CM.PN ---
Attempted to meet with patient in regards to discharge planning. Patient currently sleeping. Will attempt to meet again. Continue to monitor for d/c needs.
--- NOTE | 2020-04-13 09:05 | MHC.CM.PN ---
Attempted to speak with patient's sig Dali agudelo via telephone at [phone]. Left voicemail requesting return telephone call. IMM left at bedside with case management contact info. Continue to monitor for d/c needs.
--- NOTE | 2020-04-13 09:17 | MHC.CM.PN ---
Case management assessment completed using medical record. Patient lives at home with his sig other, Dali and their children. Patient was discharged from [facility] on 03/27. He had an appointment with endocrinology on 03/28. Per that provider's documentation, patient is non-compliant with diet, and his meter was not set for the correct date and time. Patient is legally blind. Dali will assist the patient with the insuling pump. Patient has been to [facility] and [facility] 4 times in the past thirty days. Patient may benefit from VNA referral at d/c. Copy of HCP obtained from [facility]. IMM left at bedside with case management contact information. Continue to monitor for d/c needs.
[2020-04-13] MEDS: Omeprazole 40 MG CAPSULE.DR PO (09:22)
[2020-04-13] MEDS: 0.9 % Sodium Chloride Flush 3 ML SYRINGE IVFLUSH (09:22)
[2020-04-13] MEDS: Cholecalciferol (Vitamin D3) 25 MCG TABLET 50 MCG PO (09:22)
[2020-04-13] MEDS: Ezetimibe 10 MG TABLET PO (09:22)
[2020-04-13] MEDS: Sucralfate 1 GM TABLET PO ×4 (09:22→22:49)
[2020-04-13] MEDS: Atorvastatin Calcium 80 MG TABLET PO (09:22)
[2020-04-13] MEDS: Gabapentin 600 MG TABLET PO ×3 (09:22→22:49)
[2020-04-13] MEDS: Escitalopram Oxalate 10 MG TABLET PO (09:22)
[2020-04-13] MEDS: Sertraline HCL 100 MG TABLET PO (09:22)
[2020-04-13] MEDS: amLODIPine Besylate 10 MG TABLET PO (09:22)
[2020-04-13] MEDS: Insulin Glargine,Hum.rec.anlog 100 UNIT/ML 10 ML VIAL 20 UNIT SUBCUT (09:26)
[2020-04-13] MEDS: Magnesium Sulfate/H2O 2 GM/50 ML PIGGYBACK IV (10:00)
[2020-04-13 11:10] LABS: Glucose, Whole Blood 361 mg/dL (60-115)
--- NOTE | 2020-04-13 11:12 | HO.PM.IMPN ---
Subjective Subjective Date of Service: 04/13/20 Interval History: Follow up abdominal pain secondary to pancreatitis Physical Exam Vital Signs: Vital Signs: Last Vital Signs Temp 99.1 F 04/12/20 11:46 Pulse 105 H 04/13/20 09:22 Resp 16 04/13/20 07:46 BP 135/81 04/13/20 09:22 Pulse Ox 98 04/12/20 17:14 Body Mass Index 22.8 Appearing in no acute distress head is normocephalic atraumatic eyes pupils are PERRLA sclera is anicteric mouth throat mucous membranes are intact and moist neck is supple no lymphadenopathy, no JVD noted lung sounds are clear to auscultation heart regular rate rhythm, clear S1, S2 positive bowel sounds, tender neuro patient is alert x3, no focal deficits Objective Data Current Medications Generic Name Dose Route Start Last Admin Trade Name Freq PRN Reason Stop Dose Admin Acetaminophen 650 mg 04/12/20 16:43 Acetaminophen 325 Mg Tablet PO Q6H PRN Pain, Mild (Pain Scale 1-3) Amlodipine Besylate 10 mg 04/13/20 09:00 04/13/20 09:22 Amlodipine Besylate 10 Mg Tablet PO 10 mg DAILY OKSANA Administration Protocol Atorvastatin Calcium 80 mg 04/13/20 09:00 04/13/20 09:22 Atorvastatin Calcium 80 Mg Tablet PO 80 mg DAILY [facility] Administration Ezetimibe 10 mg 04/13/20 09:00 04/13/20 09:22 Ezetimibe 10 Mg Tablet PO 10 mg DAILY [facility] Administration Escitalopram Oxalate 10 mg 04/13/20 09:00 04/13/20 09:22 Escitalopram Oxalate 10 Mg Tablet PO 10 mg DAILY [facility] Administration Gabapentin 600 mg 04/12/20 21:00 04/13/20 09:22 Gabapentin 600 Mg Tablet PO 600 mg TID OKSANA Administration Hydromorphone HCl 0.25 mg 04/12/20 18:09 04/13/20 10:08 Hydromorphone Hcl 0.5 Mg/0.5 Ml Syringe IVPUSH 0.25 mg Q4H PRN Administration pain Lactated Ringer's 1,000 mls @ 150 mls/hr 04/12/20 16:45 04/13/20 07:43 Lr IVCONT 150 mls/hr .Q6H40M OKSANA Administration Magnesium Sulfate/Dextrose 1 gm in 100 mls @ 100 mls/hr 04/13/20 11:07 IV 04/13/20 12:06 ONCE ONE Insulin Glargine 20 unit 04/13/20 09:00 04/13/20 09:26 Insulin Glargine,Hum.Rec.Anlog 100 Unit/Ml 10 Ml Vial SUBCUT 20 unit DAILY OKSANA Administration Insulin Human Lispro 0 unit 04/12/20 17:05 04/13/20 10:00 Insulin Lispro 100 Unit/Ml 3 Ml Vial SUBCUT 6 unit QIDACHS OKSANA Administration Protocol Lorazepam 1 mg 04/13/20 04:59 04/13/20 05:10 Lorazepam 1 Mg Tablet PO 04/17/20 04:58 1 mg Q4H PRN Administration Breakthrough alcohol withdrawa Nortriptyline HCl 50 mg 04/12/20 21:00 04/12/20 21:27 Nortriptyline Hcl 25 Mg Capsule PO 50 mg BEDTIME OKSANA Administration Omeprazole 40 mg 04/13/20 06:30 04/13/20 09:22 Omeprazole 40 Mg Capsule.Dr PO 40 mg DAILY@0630 [facility]SANA Administration Ondansetron HCl 4 mg 04/12/20 16:43 04/13/20 02:22 Ondansetron Hcl 4 Mg/2 Ml Vial IVPUSH 4 mg Q8H PRN Administration Nausea and Vomiting Pharmacy Consult 1 each 04/12/20 11:33 Consult Rx Perform Med Rec MISCELLANE ONCE PRN Consult order Sertraline HCl 100 mg 04/13/20 09:00 04/13/20 09:22 Sertraline Hcl 100 Mg Tablet PO 100 mg DAILY [facility]SANA Administration Sodium Chloride 3 ml 04/13/20 00:00 04/13/20 09:22 0.9 % Sodium Chloride Flush 3 Ml Syringe IVFLUSH 3 ml QSHIFT OKSANA Administration Sucralfate 1 gm 04/12/20 17:00 04/13/20 09:22 Sucralfate 1 Gm Tablet PO 1 gm QID OKSANA Administration Trazodone HCl 100 mg 04/12/20 16:43 04/12/20 21:27 Trazodone Hcl 100 Mg Tablet PO 100 mg BEDTIME PRN Administration Insomnia Vitamin D 50 mcg 04/13/20 09:00 04/13/20 09:22 Cholecalciferol (Vitamin D3) 25 Mcg Tablet PO 50 mcg DAILY OKSANA Administration Labs CBC & Chem 7: 04/13/20 05:32 04/13/20 05:32 Assessment and Plan (1) Pancreatitis: Status: Acute Assessment and Plan: 34-year-old man admitted with acute pancreatitis, denies abuse, history of diabetes. Pancreatitis. Seems likely chronic, normal lipase and triglycerides. Poorly controlled diabetes. -Continuing IV fluids -Advance diet to Full liquids. -GI consultation pending. -Pain management is better. Hypomagnesemia. Mild. -Give 1 gm now. Type 1 diabetes. -Sliding scale -Lantus CKD. Baseline. Hypertension. Elevated, likely related to pain. -Continue losartan, amlodipine. Hyperlipidemia. -Continue statin Anxiety/depression. -Continue citalopram, nortriptyline, trazodone. DVT prophylaxis with mechanical compression boots
[2020-04-13] MEDS: Famotidine/PF 20 MG/2 ML VIAL IVPUSH ×2 (14:19→22:48)
[2020-04-13 18:12] LABS: Glucose, Whole Blood 184 mg/dL (60-115)
[2020-04-13 18:41] LABS: Glucose, Whole Blood 191 mg/dL (60-115)
[2020-04-13] MEDS: oxyCODONE HCl Immed Release 5 MG TABLET PO (18:44)
--- NOTE | 2020-04-13 18:47 | PC.NURSE ---
Pt medicated for 8/10 abd pain. He was given insulin per sliding scale and is having his clear liquid dinner now.
--- NOTE | 2020-04-13 20:22 | PC.NURSE ---
REPORT FROM RAVINDRA CUEVAS AT 1900. PT HAS HX OF DIABETES, STOPPED WEARING INSULIN PUMP AFTER IT STOPPED WORKING. 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 PT HAD ISSUE WITH INSULIN PUMP LAST MONTH WELL. PT HERE FOR ABDOMINAL PAIN RELATED TO PANCREATITIS. PT ASKED IF HE HAD DINNER, HE SEEMS TO BE ON A CLEAR LIQUID DIET. PT HAS BROTH AT BEDSIDE, WHICH HE DID NOT DRINK. PT'S PAIN CONTROLLED WITH P.O. OXY.
--- NOTE | 2020-04-13 21:12 | PM.GICN ---
History of Present Illness Data of Consult Service Date: 04/13/20 Requesting physician: Jasper Servin Primary Care Provider: Hong Rodríguez MD HPI Reason for consult: pancreatitis 34-year-old man with hx of GERD, diabetes, CKD, polyneuropathy, HTN, HLD and appendectomy who I am seeing for assessment for abdominal pain. he developed sudden onset upper abdominal pain going into the left side, 10/10 in severity with nausea and emesis with diarrhea 1-2 d ago. He has similar symptoms earlier in the week but milder. He has poor appetite, weight has been stable. He is blind, denies melena, rectal bleeding. He denies any heavy alcohol intake Today he feels pain is better controlled and diet being advanced. Abdominal CT showed acute pancreatitis without free fluid this admission. Prominent indra aortic and mesenteric LN noted on this as well as in prior CT imaging studies over last 6-7 months Other relevant tests: 09/29/19-Ba swallow: Free gastroesophageal reflux to the level of the thoracic inlet which clears slowly. 11/12 EGD showed superficial gastritis. Gastric biopsies were negative for Helicobacter pylori 02/2020- US- liver hemangioma, otherwise nml, no gallstones, GB nml Review of Systems Review of Systems: Denies any recent fever chills or decrease in appetite respiratory denies any shortness of breath coverage production cardiovascular is adjustment of any PND or edema gastrointestinal See HPI genitourinary denies any dysuria frequency or hematuria musculoskeletal denies any joint pain or swelling neuropsych denies any weakness or seizures all other systems reviewed are negative Yes all other systems are reviewed and are negative [facility] Past Medical History Medical History (Updated 04/12/20 @ 18:12 by Stephie Mcdonough NP) Acid reflux Chronic kidney disease, stage 3 Diabetes type 1, uncontrolled 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 Diabetic visual loss, with retinopathy, associated with type 1 diabetes mellitus Essential hypertension Gastritis Hemangioma of liver Hypocalcemia Legally blind Polyneuropathy Sciatica Vitamin D deficiency Family History Family History Father Diabetes mellitus Mother Diabetes mellitus Maternal Grandfather Diabetes mellitus Maternal Grandmother Diabetes mellitus Surgical History Surgical History Hx of appendectomy Hx of circumcision Hx of eye surgery Social History Social History Household Members: Family Housing: Apartment Alcohol intake: current Alcohol intake frequency: does not drink Smoking Status: Never smoker Second Hand Smoke Exposure: No Use of substances other than those prescribed or required for medical reasons: No Substance Use Type: Marijuana Advance Directives: No Advance Directives Information Provided: Yes service: No Current occupational status: disabled Meds Allergies Allergy/AdvReac Type Severity Reaction Status Date / Time No Known Allergies Allergy Unverified 01/04/20 14:52 [No Known Allergies*] Active Medications: Current Medications Generic Name Dose Route Start Last Admin Trade Name Freq PRN Reason Stop Dose Admin Acetaminophen 650 mg 04/12/20 16:43 Acetaminophen 325 Mg Tablet PO Q6H PRN Pain, Mild (Pain Scale 1-3) Amlodipine Besylate 10 mg 04/13/20 09:00 04/13/20 09:22 Amlodipine Besylate 10 Mg Tablet PO 10 mg DAILY OKSANA Administration Protocol Atorvastatin Calcium 80 mg 04/13/20 09:00 04/13/20 09:22 Atorvastatin Calcium 80 Mg Tablet PO 80 mg DAILY OKSANA Administration Ezetimibe 10 mg 04/13/20 09:00 04/13/20 09:22 Ezetimibe 10 Mg Tablet PO 10 mg DAILY OKSANA Administration Escitalopram Oxalate 10 mg 04/13/20 09:00 04/13/20 09:22 Escitalopram Oxalate 10 Mg Tablet PO 10 mg DAILY OKSANA Administration Famotidine 20 mg 04/13/20 12:40 04/13/20 14:19 Famotidine/Pf 20 Mg/2 Ml Vial IVPUSH 20 mg BID OKSANA Administration Gabapentin 600 mg 04/12/20 21:00 04/13/20 14:19 Gabapentin 600 Mg Tablet PO 600 mg TID OKSANA Administration Hydromorphone HCl 0.25 mg 04/12/20 18:09 04/13/20 14:19 Hydromorphone Hcl 0.5 Mg/0.5 Ml Syringe IVPUSH 0.25 mg Q4H PRN Administration pain Lactated Ringer's 1,000 mls @ 150 mls/hr 04/12/20 16:45 04/13/20 14:58 Lr IVCONT 150 mls/hr .Q6H40M OKSANA Administration Insulin Glargine 20 unit 04/13/20 09:00 04/13/20 09:26 Insulin Glargine,Hum.Rec.Anlog 100 Unit/Ml 10 Ml Vial SUBCUT 20 unit DAILY OKSANA Administration Insulin Human Lispro 0 unit 04/12/20 17:05 04/13/20 18:45 Insulin Lispro 100 Unit/Ml 3 Ml Vial SUBCUT 2 unit QIDACHS OKSANA Administration Protocol Lorazepam 1 mg 04/13/20 04:59 04/13/20 14:19 Lorazepam 1 Mg Tablet PO 04/17/20 04:58 1 mg Q4H PRN Administration Breakthrough alcohol withdrawa Nortriptyline HCl 50 mg 04/12/20 21:00 04/12/20 21:27 Nortriptyline Hcl 25 Mg Capsule PO 50 mg BEDTIME OKSANA Administration Omeprazole 40 mg 04/13/20 06:30 04/13/20 09:22 Omeprazole 40 Mg Capsule.Dr PO 40 mg DAILY@0630 OKSANA Administration Ondansetron HCl 4 mg 04/12/20 16:43 04/13/20 14:19 Ondansetron Hcl 4 Mg/2 Ml Vial IVPUSH 4 mg Q8H PRN Administration Nausea and Vomiting Oxycodone HCl 5 mg 04/13/20 12:39 04/13/20 18:44 Oxycodone Hcl Immed Release 5 Mg Tablet PO 5 mg Q4H PRN Administration Pain, Mild (Pain Scale 1-3) Pharmacy Consult 1 each 04/12/20 11:33 Consult Rx Perform Med Rec MISCELLANE ONCE PRN Consult order Sertraline HCl 100 mg 04/13/20 09:00 04/13/20 09:22 Sertraline Hcl 100 Mg Tablet PO 100 mg DAILY OKSANA Administration Sodium Chloride 3 ml 04/13/20 00:00 04/13/20 16:07 0.9 % Sodium Chloride Flush 3 Ml Syringe IVFLUSH Not Given QSHIFT [facility] Sucralfate 1 gm 04/12/20 17:00 04/13/20 18:44 Sucralfate 1 Gm Tablet PO 1 gm QID OKSANA Administration Trazodone HCl 100 mg 04/12/20 16:43 04/12/20 21:27 Trazodone Hcl 100 Mg Tablet PO 100 mg BEDTIME PRN Administration Insomnia Vitamin D 50 mcg 04/13/20 09:00 04/13/20 09:22 Cholecalciferol (Vitamin D3) 25 Mcg Tablet PO 50 mcg DAILY OKSANA Administration Home Medications Medication Instructions Recorded Confirmed Last Taken Type gabapentin 600 mg tablet 600 mg PO TID 01/04/20 04/12/20 04/11/20 History insulin pump cartridge #5 ea 01/04/20 03/30/20 Unknown History losartan 50 mg tablet 50 mg PO DAILY 01/04/20 04/12/20 04/11/20 History nortriptyline 50 mg capsule 50 mg PO BEDTIME 01/04/20 04/12/20 04/11/20 History omeprazole 40 mg capsule,delayed 40 mg PO DAILY@0630 01/04/20 04/12/20 04/11/20 History release tramadol 50 mg tablet 50 mg PO DAILY PRN 01/04/20 04/12/20 03/06/20 History trazodone 100 mg PO BEDTIME PRN 03/07/20 04/12/20 03/06/20 History citalopram 20 mg tablet 20 mg PO DAILY 03/28/20 04/12/20 04/11/20 History sertraline 100 mg tablet 100 mg PO DAILY 03/28/20 04/12/20 04/11/20 History Physical Exam Vital Signs: Vital Signs: Last Vital Signs Temp 98.3 F 04/13/20 17:01 Pulse 105 H 04/13/20 20:21 Resp 13 04/13/20 20:21 BP 141/79 H 04/13/20 20:21 Pulse Ox 97 04/13/20 20:21 Body Mass Index 22.8 Const: General: in distress and tired appearing Orientation/consciousness: patient oriented x3 HENMT: Mouth: Normal oral and palatal mucosa present Eyes: Corneas: corneas abnormal Neck: Thyroid: Thyroid normal Chest: Chest palpation & inspection: normal inspection of the chest Resp: Effort & Inspection: normal respiratory effort Auscultation: clear to auscultation bilaterally Percussion: percussion normal Cardio: Jugular venous distension: no JVD Rate: regular rate Rhythm: regular rhythm Heart sounds: S1 normal heart sound present and S2 normal heart sound present GI: Inspection: Yes normal to inspection Palpation (GI): Tenderness to palpation present (GI) in the epigastrum and No hepatosplenomegaly present Auscultation: normal bowel sounds Skin: General skin exam: no rashes or lesions noted Neuro: General: patient oriented x3 Extrem: General: Yes no clubbing, cyanosis or edema Psych: Affect: normal affect Insight: Good insight present (Psych) Results Labs CBC & Chem 7: 04/13/20 05:32 04/13/20 05:32 Labs: Short CBC 04/13/20 Range/Units 05:32 WBC 10.2 (4.8-10.8) X10*3/uL Hgb 11.8 L (14.0-18.0) g/dl Hct 33.7 L (42-52) % Plt Count 253 (160-400) X10*3/uL BMP 04/13/20 05:32 Sodium 137 Potassium 4.0 Chloride 101 Carbon Dioxide 23 BUN 13 Creatinine 1.43 H Calcium 8.1 L D Microbiology Microbiology Results: Microbiology 04/12/20 12:29 Blood - Venous Blood Culture - Preliminary No growth after 24 hours. 04/12/20 12:10 Blood - Venous Blood Culture - Preliminary No growth after [address] scan - abdomen: Attestation: I personally reviewed and interpreted this imaging study as follows: My impression: edema of pancreatic head, enlarged LN Assessment and Plan (1) Pancreatitis: Status: Acute 1/ Acute interstitial pancreatitis with nml Ca, nml trigs, and no evidence of gallstones. CT imaging with persistent prominent mesenteric, indra aortic LN DDX: lymphoma, panc neoplasia, panc cysts ie IPMN, panc divisum, SOD, microlithiasis, IgG4 related disease, no new meds PLAN: 1/ FLuids 5-10 ml/kg per hour (nml saline or LR) and analgesia 2/ advance diet as tolerated 3/ MRI pancreas in 4-6 weeks to check for ddx mentioned above--may need to consider EUS or IR guided bx of LN 4/ check IgG4 level
--- NOTE | 2020-04-13 21:51 | PC.NURSE ---
REPORT GIVEN TO RN ON FLOOR, PT READY FOR TRANSPORT.
[2020-04-13] MEDS: Nortriptyline HCl 25 MG CAPSULE 50 MG PO (22:48)
[2020-04-13 22:53] LABS: Glucose, Whole Blood 179 mg/dL (60-115)
[2020-04-14] VITALS (7 sets, daily range): BP systolic 152–168; BP diastolic 78–97; PULSE 100–119; RESP 15–18; TEMP 36.2–36.8; O2SAT 94–99
[2020-04-14] MEDS: Omeprazole 40 MG CAPSULE.DR PO (05:47)
[2020-04-14] MEDS: Lactated Ringers 1,000 ML 150 ML IVCONT (05:48)
[2020-04-14 06:55] LABS: Hematocrit 32.4 % (42-52); Hemoglobin 11.1 g/dl (14.0-18.0); Mean Corpuscular HGB Conc 34.3 g/dl (31.0-36.0); Mean Corpuscular Volume 87.6 fL (80-98); Mean Platelet Volume 9.9 fL (9.4-12.4); Platelet Count 271 X10*3/uL (160-400); Red Cell Distribution Width 11.8 % (11.0-16.0); White Blood Count 9.1 X10*3/uL (4.8-10.8)
[2020-04-14 07:20] LABS: Anion Gap 11 (12-20); Blood Urea Nitrogen 8 mg/dL (9-16); Calcium 8.1 mg/dL (8.4-10.2); Carbon Dioxide 31 mmol/L (22-29); Chloride 101 mmol/L (96-108); Creatinine Clr Calc Pharmacy 76.9; Estimated Glomerular Filt Rate > 60; Glucose Random 145 mg/dL (60-115); Magnesium 1.6 mg/dL (1.6-2.6); Potassium 3.5 mmol/L (3.3-5.1); Sodium 139 mmol/L (135-145)
[2020-04-14 08:17] LABS: Glucose, Whole Blood 176 mg/dL (60-115)
[2020-04-14] MEDS: Cholecalciferol (Vitamin D3) 25 MCG TABLET 50 MCG PO (08:23)
[2020-04-14] MEDS: Sertraline HCL 100 MG TABLET PO (08:23)
[2020-04-14] MEDS: Sucralfate 1 GM TABLET PO ×2 (08:24→12:27)
[2020-04-14] MEDS: Gabapentin 600 MG TABLET PO ×2 (08:24→14:32)
[2020-04-14] MEDS: Ezetimibe 10 MG TABLET PO (08:24)
[2020-04-14] MEDS: Escitalopram Oxalate 10 MG TABLET PO (08:24)
[2020-04-14] MEDS: amLODIPine Besylate 10 MG TABLET PO (08:24)
[2020-04-14] MEDS: Atorvastatin Calcium 80 MG TABLET PO (08:24)
[2020-04-14] MEDS: Famotidine/PF 20 MG/2 ML VIAL IVPUSH (08:25)
[2020-04-14] MEDS: Insulin Lispro 100 UNIT/ML 3 ML VIAL SUBCUT ×2 (08:47→12:27)
--- NOTE | 2020-04-14 08:50 | PM.DS ---
DS: Providers Provider Date of Service: 04/16/20 Date of admission: 04/12/20 16:43 Date of discharge: 04/14/20 Primary care physician: Hong Rodríguez MD Attending physician on admission: Gareth Consults: 04/13/20 13:39 Consult to Gastroenterology Routine Consulting Provider: Noe Chandra Reason for consultation: pancreatitis Has provider been notified: No Attending physician on discharge: [facility] Discharging clinician: Stephie Mcdonough DS: Diagnosis Discharge Diagnosis (1) Pancreatitis: Status: Acute DS: Medications Discharge Medications Home Medications: Home Medications Medication Instructions Recorded Confirmed gabapentin 600 mg tablet 600 mg PO TID 01/04/20 04/12/20 insulin pump cartridge #5 ea 01/04/20 03/30/20 losartan 50 mg tablet 50 mg PO DAILY 01/04/20 04/12/20 nortriptyline 50 mg capsule 50 mg PO BEDTIME 01/04/20 04/12/20 omeprazole 40 mg capsule,delayed 40 mg PO DAILY@0630 01/04/20 04/12/20 release tramadol 50 mg tablet 50 mg PO DAILY PRN 01/04/20 04/12/20 trazodone 100 mg PO BEDTIME PRN 03/07/20 04/12/20 citalopram 20 mg tablet 20 mg PO DAILY 03/28/20 04/12/20 sertraline 100 mg tablet 100 mg PO DAILY 03/28/20 04/12/20 Previous Rx's Medication Instructions Recorded atorvastatin 80 mg tablet 80 mg PO DAILY #30 tab 01/04/20 sucralfate 1 gram tablet 1 g PO QID 30 Days #120 tab 02/08/20 amlodipine 10 mg PO DAILY 30 Days #30 tab 03/27/20 glucose 4 gram chewable tablet 4 g PO Q15M PRN 30 Days #60 tab 03/28/20 insulin lispro 100 unit/mL See Rx Instructions SUBCUT 03/28/20 subcutaneous solution .COMPLEX 30 Days #20 ml metoclopramide HCl [Reglan] 10 mg PO Q6H PRN #20 tab 03/30/20 cholecalciferol (vitamin D3) 50 50 mcg PO DAILY 30 Days #30 cap 04/05/20 mcg (2,000 unit) capsule ezetimibe 10 mg tablet 10 mg PO DAILY 90 Days #90 tab 04/05/20 oxycodone 5 mg PO Q8H PRN #9 tab 04/14/20 DS: Summary Hospital Course Hospital Course: per HP 34-year-old man with multiple medical problems including type 1 diabetes presents to the ER with complaints of abdominal pain. He reported 2 days of left lower quadrant and central abdominal pain associated with nausea vomiting and diarrhea. He is in a significant amount of pain during this interview and is somewhat vague about history. He did report a poor appetite and fairly good control of his blood sugars. He was admitted in February with DKA and colitis. He denied fever did report some chills. Abdominal CT showed acute pancreatitis without free fluid. He denies any heavy alcohol intake. Creatinine at baseline, blood sugar ranging from 162-124, no DKA. He was given IV fluids in the ER, Reglan, morphine and IV magnesium. Patient be admitted for further management and treatment of acute pancreatitis . Pancreatitis. New. Normal lipase and triglycerides. Seen by gastroenterology. DDX as per gastro include lymphoma, pancreatic neoplasia, pancreatic cysts, no infection discovered. Abdominal pain improved with aggressive IV fluid hydration and pain management. Diet advanced to ADA diet. Tolerated well. Diabetes. Poor control. Sliding scale while inpatient, Lantus 20 units added daily. No DKA during admission. Blood sugar range 160-361. CKD. Remained at baseline. HTN. Elevated likely related to pain and some poor control. Continue Amlodipine 10 mg. Time Spent with Patient Time attestation: Total time spent providing and/or coordinating discharge services: Discharge coordination time: Greater than 30 minutes Physical Exam Vital Signs: Vital Signs: Last Vital Signs Temp 98.1 F 04/14/20 03:54 Pulse 108 H 04/14/20 08:24 Resp 18 04/14/20 03:54 BP 163/93 H 04/14/20 08:24 Pulse Ox 99 04/14/20 03:54 Body Mass Index 22.8 Appearing in no acute distress head is normocephalic atraumatic eyes Legally blind mouth throat mucous membranes are intact and moist neck is supple no lymphadenopathy, no JVD noted lung sounds are clear to auscultation heart regular rate rhythm, clear S1, S2 positive bowel sounds, abdomen is soft, nontender neuro patient is alert x3, no focal deficits DS: Data Data Completed and Pending Labs on day of discharge: Laboratory Results - last 24 hr 04/13/20 04/13/20 04/13/20 11:07 18:08 18:37 WBC RBC Hgb Hct MCV MCH MCHC RDW Plt Count MPV Absolute Nucleated RBC Nucleated RBC % (auto) Sodium Potassium Chloride Carbon Dioxide Anion Gap BUN Creatinine Estim Creat Clear Calc Estimated GFR POC Glucose 361 H* 184 H 191 H Random Glucose Calcium Magnesium 04/13/20 04/14/20 04/14/20 22:50 05:05 05:05 WBC 9.1 RBC 3.70 L Hgb 11.1 L Hct 32.4 L MCV 87.6 MCH 30.0 MCHC 34.3 RDW 11.8 Plt Count 271 MPV 9.9 Absolute Nucleated RBC 0.000 Nucleated RBC % (auto) 0.0 Sodium 139 Potassium 3.5 Chloride 101 Carbon Dioxide 31 H Anion Gap 11 L BUN 8 L Creatinine 1.29 Estim Creat Clear Calc 76.9 Estimated GFR > 60 POC Glucose 179 H Random Glucose 145 H D Calcium 8.1 L Magnesium 1.6 04/14/20 08:05 WBC RBC Hgb Hct MCV MCH MCHC RDW Plt Count MPV Absolute Nucleated RBC Nucleated RBC % (auto) Sodium Potassium Chloride Carbon Dioxide Anion Gap BUN Creatinine Estim Creat Clear Calc Estimated GFR POC Glucose 176 H Random Glucose Calcium Magnesium Preliminary micro results at discharge 04/12/20 12:29 Blood Culture - Preliminary Blood - Venous No growth after 24 hours. 04/12/20 12:10 Blood Culture - Preliminary Blood - Venous No growth after 24 hours. Discharge Plan Discharge Anticipated Discharge Date/Time: 04/14/20 08:37 Patient Disposition: Home, Self-Care Referrals: Name,MD Hong [Primary Care Provider] - 1 Week (TELE 04/25/[address] Rodríguez will call you to discuss your hospital stay.) Discharge Medications: New oxycodone 5 mg Tablet 5 mg PO Q8H PRN (Reason: Pain, Mild (Pain Scale 1-3)) Qty: 9 RF: 0 Lantus U-100 Insulin 100 unit/mL Solution 20 unit subcut DAILY 30 Days Qty: 6 RF: 0 metoclopramide HCl [Reglan] 5 mg tablet 5 mg PO DAILY PRN (Reason: nausea and vomiting) Qty: 7 RF: 0 Continued sucralfate 1 gram tablet 1 g PO QID 30 Days Qty: 120 RF: 3 insulin lispro [Humalog U-100 Insulin] 100 unit/mL solution See Rx Instructions subcut .COMPLEX 30 Days Qty: 20 RF: 3 cholecalciferol (vitamin D3) 50 mcg (2,000 unit) capsule 50 mcg PO DAILY 30 Days Qty: 30 RF: 6 ezetimibe [Zetia] 10 mg tablet 10 mg PO DAILY 90 Days Qty: 90 RF: 2 metoclopramide HCl [Reglan] 10 mg tablet 10 mg PO Q6H PRN (Reason: nausea and vomiting) Qty: 20 RF: 0 trazodone 100 mg tablet 100 mg PO BEDTIME PRN (Reason: Insomnia) RF: 0 amlodipine 10 mg Tablet 10 mg PO DAILY 30 Days Qty: 30 RF: 0 omeprazole 40 mg capsule,delayed release(DR/EC) 40 mg PO DAILY@0630 RF: 0 nortriptyline 50 mg capsule 50 mg PO BEDTIME RF: 0 gabapentin 600 mg tablet 600 mg PO TID RF: 0 losartan 50 mg tablet 50 mg PO DAILY RF: 0 (DME) insulin pump cartridge Cartridge See Rx Instructions ea subcut .MEDSUPPLY Qty: 5 RF: 0 tramadol 50 mg tablet 50 mg PO DAILY PRN (Reason: Pain) RF: 0 atorvastatin 80 mg tablet 80 mg PO DAILY Qty: 30 RF: 6 citalopram 20 mg tablet 20 mg PO DAILY RF: 0 sertraline 100 mg tablet 100 mg PO DAILY RF: 0 glucose [Dex4 Glucose] 4 gram tablet,chewable 4 g PO Q15M PRN (Reason: hypoglycemia) 30 Days Qty: 60 RF: 5 Discharge Orders: Discharge Order (Routine); Ordered 04/14/20 Ordered By: Stephie Mcdonough Diet: advance to usual diet Activity on Discharge: As tolerated Stand Alone Forms: Patient Portal Discharge page Care Plan Goals: Decreased abdominal pain Better blood sugar control Health Concerns: Pancreatitis Diabetes Plan of Treatment: Follow up with Gastroenterology Dr. Noe Chandra [phone]. Will need MRI of pancreas in 4-6 weeks Oxycodone 5 mg every 8 hours. 9 tablets for abdominal pain, Reglan for nausea. Follow up with primary care provider Discharge Date/Time: 04/14/20 15:30
[2020-04-14] MEDS: oxyCODONE HCl Immed Release 5 MG TABLET PO (09:01)
[2020-04-14] MEDS: Insulin Glargine,Hum.rec.anlog 100 UNIT/ML 10 ML VIAL 20 UNIT SUBCUT (09:33)
[2020-04-14] MEDS: 0.9 % Sodium Chloride Flush 3 ML SYRINGE IVFLUSH (09:34)
[2020-04-14 12:14] LABS: Glucose, Whole Blood 269 mg/dL (60-115)
--- NOTE | 2020-04-14 14:05 | MHC.CM.PN ---
Patient has been medically cleared for dc to home today, no services. IMM addressed yesterday.
[2020-04-16 21:22] LABS: Immunoglobulin G Subclass 1 195 mg/dL (382-929); Immunoglobulin G Subclass 2 316 mg/dL (241-700); Immunoglobulin G Subclass 3 29 mg/dL (22-178); Immunoglobulin G Subclass 4 28.8 mg/dL (4-86); Immunoglobulin G Total 615 mg/dL (600-1640)
[2020-04-17 13:31] LABS: Transglutaminase Ab IgG 1 U/mL; Transglutaminase IgA 1 U/mL
== END 2020-04-14 15:30 | disposition home or self-care (01) | DRG 440 ==
LOC: HO.ED 16:13 → HO.EDOVER 17:46 → HO.IMC 04-13 19:30
PROVIDERS: Hospitalist; Internal Medicine Gastroenterology; Nurse Practitioner Acute Care; Physician Assistant; Admitting Provider Internal Medicine; Emergency Provider Emergency Medicine; PCP Internal Medicine Geriatric Medicine; Visit Provider Internal Medicine
DX: K85.90 Acute pancreatitis without necrosis or infection, unspecified (principal); I12.9 Hypertensive chronic kidney disease with stage 1 through stage 4 chronic kidney disease, or unspecified chronic kidney disease; E10.319 Type 1 diabetes mellitus with unspecified diabetic retinopathy without macular edema; E10.42 Type 1 diabetes mellitus with diabetic polyneuropathy; F41.9 Anxiety disorder, unspecified; F32.9 Major depressive disorder, single episode, unspecified; Z96.41 Presence of insulin pump (external) (internal); E10.22 Type 1 diabetes mellitus with diabetic chronic kidney disease; E83.42 Hypomagnesemia; N18.30 Chronic kidney disease, stage 3 unspecified; Z20.822 Contact with and (suspected) exposure to COVID-19; Z79.4 Long term (current) use of insulin; Z79.891 Long term (current) use of opiate analgesic; Z79.899 Other long term (current) drug therapy
CPT/HCPCS: 36415; 74176; 80048; 80076; 80307; 80320; 81001; 82009; 82784; 82800; 82803; 82947; 83036; 83516; 83605; 83690; 83735; 84478; 84484; 85025; 85027; 85379; 87040; 87635; 96361; 96374; 96375; 96376; 99284; 99291; J1170; J2270; J2405; J2765; J3475

== ENCOUNTER → 2020-04-17 12:43 | Outpatient (BNVA) | payer MEDICARE, MEDICAID, SELFPAY | PROVIDERS: PCP Internal Medicine Geriatric Medicine; Visit Provider Internal Medicine Gastroenterology | DX: Z76.89 Persons encountering health services in other specified circumstances (principal) | CPT/HCPCS: Q3014 ==

== ENCOUNTER → 2020-05-09 07:56 | Outpatient (REF) | payer MEDICAID, SELFPAY ==
--- NOTE | ~2020-05-09 | NM_ITS ---
EXAMINATION: RADIONUCLIDE SOLID FOOD GASTRIC EMPTYING 4-HOUR STUDY CLINICAL INFORMATION: Diabetes mellitus with hyperglycemia. Left lower pain. COMPARISON: No previous gastric emptying study is available for comparison. TECHNIQUE: A standard meal consisting of 4 oz of Egg Beaters brand equivalent tagged with 1.0 mCi Tc-99m Sulfur Colloid, 8 oz water and 2 slices of toast with jelly was administered orally to the patient. Images were obtained using a dual head gamma camera in the anterior and posterior projections over of the stomach immediately post ingestion and at hourly intervals up to 4 hours post ingestion. The anterior and posterior counts at each time interval were averaged using the geometric mean and expressed as percentage of the immediate post ingestion counts. FINDINGS: There is good visualization of activity in the stomach immediately post ingestion. As the study progresses, there is good clearance of activity from the stomach and visualization of progressively increasing small bowel activity. By the end of the study, there is almost no retention noted in the stomach. Retention in the stomach at each time interval was: 1 hour 57% (normal 37%-90%) 2 hours 31% (normal 30%-60%) 3 hours 5% 4 hours 4% (normal 0%-10%) NM/NM gastric emptying study IMPRESSION: Normal 4-hour solid food gastric emptying study.
== END ==
LOC: HO.NUCMED 07:56
PROVIDERS: PCP Internal Medicine Geriatric Medicine; Visit Provider Internal Medicine Endocrinology, Diabetes & Metabolism
DX: E10.65 Type 1 diabetes mellitus with hyperglycemia (principal)
CPT/HCPCS: 78264; A9541

== ENCOUNTER 2020-05-17 15:27 | Outpatient (REF) | payer MEDICAID, SELFPAY ==
--- NOTE | ~2020-05-17 | XR_ITS ---
EXAMINATION: PRE-MRI ORBITS CLINICAL INFORMATION: Question ocular implant. COMPARISON: None TECHNIQUE: 2 AP views FINDINGS: There is a faint circular density seen in the center of both orbits. It is not radiopaque and may represent some synthetic plastic component. The soft tissues are normal. Visualized bilateral maxillary, ethmoid and frontal sinuses are clear. XR/XR pre mri screening IMPRESSION: No radiopaque metallic foreign body seen. There are round radiolucent synthetic component in the center of the orbits.
== END 2020-05-17 15:28 | disposition home or self-care (01) ==
LOC: HO.MRI 15:27
PROVIDERS: Visit Provider Internal Medicine Gastroenterology
DX: Z13.89 Encounter for screening for other disorder (principal)

== ENCOUNTER → 2020-05-29 08:50 | Outpatient (BNVA) | payer MEDICAID, SELFPAY | PROVIDERS: PCP Internal Medicine Geriatric Medicine; Visit Provider Internal Medicine Gastroenterology ==

== ENCOUNTER → 2020-05-31 12:16 | Outpatient (BNVA) | payer MEDICAID, SELFPAY | PROVIDERS: PCP Internal Medicine Geriatric Medicine; Visit Provider Internal Medicine Endocrinology, Diabetes & Metabolism | DX: E10.65 Type 1 diabetes mellitus with hyperglycemia (principal); E10.42 Type 1 diabetes mellitus with diabetic polyneuropathy; E10.21 Type 1 diabetes mellitus with diabetic nephropathy; E11.3299 Type 2 diabetes mellitus with mild nonproliferative diabetic retinopathy without macular edema, unspecified eye; I10 Essential (primary) hypertension; E78.5 Hyperlipidemia, unspecified; E83.51 Hypocalcemia | CPT/HCPCS: 82947; 99212 ==

== ENCOUNTER 2020-06-08 23:18 | Inpatient (IN) | payer MEDICAID, SELFPAY ==
--- NOTE | ~2020-06-08 | US_ITS ---
EXAMINATION: US ABDOMEN COMPLETE CLINICAL INFORMATION: Abdominal pain. COMPARISON: CT abdomen noncontrast 04/12/2020, 03/25/2020, ultrasound abdomen 03/25/2020, 08/18/2019. TECHNIQUE: Real-time imaging of the abdominal viscera. FINDINGS: PANCREAS: The pancreas is largely obscured by bowel gas. Small portions visualized are normal in size with no ductal dilatation. ABDOMINAL AORTA: The proximal, mid, and distal segments are normal in caliber. INFERIOR VENA CAVA: Visualized portions are normal. LIVER: The liver is normal in size and smooth in contour. There is borderline increased hepatic parenchymal echogenicity with some subtle geographic fatty change near the intersegmental fissure anterior left lobe less prominent when compared with prior study. There is no hepatic parenchymal mass or intrahepatic ductal dilatation. GALLBLADDER: The gallbladder is distended within normal size, 2.8 cm in diameter. There is some dependent layering sludge in the lumen. No focal calculus. Gallbladder wall is within limits of normal at 0.3 cm. No subserosal edema or pericholecystic inflammatory changes. COMMON BILE DUCT: Normal in caliber measuring 0.4 cm in diameter. RIGHT KIDNEY: Normal. No hydronephrosis. There is small lower pole parapelvic cyst versus focal calyceal distention. No visible calculus. No focal parenchymal lesions. The kidney measures 10.3 cm in maximum dimension. LEFT KIDNEY: Normal. No hydronephrosis. No renal calculi or focal parenchymal lesions. The kidney measures 11.1 cm in maximum dimension. SPLEEN: Normal. The spleen measures 10.4 cm in maximum dimension. FREE FLUID: None. US/US abdomen complete IMPRESSION: 1. Dependent sludge in gallbladder. No gallbladder wall thickening or biliary ductal dilatation. 2. No hydronephrosis or visible renal calculi. Probable small parapelvic cyst right lower pole.
--- NOTE | ~2020-06-08 | XR_ITS ---
EXAMINATION: CHEST 1 VIEW CLINICAL INFORMATION: Shortness of breath. COMPARISON: 08/25/2019. TECHNIQUE: An AP view of the chest is provided. FINDINGS: The cardiac silhouette is not enlarged. The mediastinal and hilar contours are unremarkable. There are neither pleural effusions nor pneumothoraces. There are no consolidations. The osseous structures are unremarkable. XR/XR chest 1V IMPRESSION: No evidence for acute disease.
[2020-06-08 23:28] VITALS: BP 192/111; BP 200/116; PULSE 116; PULSE 121; RESP 18; TEMP 36.6; O2SAT 100; O2SAT 99; BMI 22.8
--- NOTE | 2020-06-08 23:44 | PC.NURSE ---
pt has been putting his hand down his throat to vomit. pt states he had a grape drink and that is what is coming up.
[2020-06-08 23:45] LABS: Glucose, Whole Blood 572 mg/dL (60-115)
[2020-06-09] VITALS (18 sets, daily range): BP systolic 162–213; BP diastolic 85–135; PULSE 94–121; RESP 14–20; TEMP 36.4–36.7; O2SAT 98–100
--- NOTE | 2020-06-09 00:19 | ECG_ITS ---
Test Reason : ABD PAIN Blood Pressure : / mmHG Vent. Rate : 110 BPM Atrial Rate : 110 BPM P-R Int : 132 ms QRS Dur : 090 ms QT Int : 368 ms P-R-T Axes : 077 092 062 degrees QTc Int : 498 ms Sinus tachycardia Possible Left atrial enlargement Rightward axis Borderline ECG When compared with ECG of 25-MAR-2020 16:01, Nonspecific T wave abnormality no longer evident in Inferior leads Referred By: Andre Cherry Electronically Signed By:Joni Peña
[2020-06-09] MEDS: 0.9 % Sodium Chloride 1,000 ML 999 ML IVCONT ×3 (00:26→02:36)
[2020-06-09] MEDS: Insulin Lispro 100 UNIT/ML 3 ML VIAL 14 UNIT SUBCUT (00:26)
[2020-06-09] MEDS: ondansetron HCL 4 MG/2 ML VIAL IVPUSH (00:28)
[2020-06-09 00:30] LABS: Basophils Percent Auto 0.1 % (0-2); Hematocrit 41.1 % (42-52); Hemoglobin 14.3 g/dl (14.0-18.0); Imm Gran Abs Auto 0.04 X10*3/uL (0.00-0.03); Imm Gran Pct Auto 0.3 % (0.0-0.4); Lymphocytes Absolute Auto 0.9 X10*3/uL (1.2-4.9); Lymphocytes Percent Auto 6.3 % (20-40); MANUAL DIFF FLAG SCAN; Mean Corpuscular HGB Conc 34.8 g/dl (31.0-36.0); Mean Corpuscular Hemoglobin 29.5 pg (27.0-33.0); Mean Corpuscular Volume 84.9 fL (80-98); Monocytes Absolute Auto 0.4 X10*3/uL (0.1-1.2); Neutrophils Absolute Auto 12.7 X10*3/uL (2.0-8.3); Neutrophils Percent Auto 90.3 % (45-73); Platelet Count 261 X10*3/uL (160-400); Red Blood Count 4.84 X10*6/uL (4.60-5.80); Red Cell Distribution Width 11.4 % (11.0-16.0); SCAN SMEAR FLAG 1; White Blood Count 14.1 X10*3/uL (4.8-10.8)
[2020-06-09] MEDS: Morphine Sulfate 4 MG/ML CARTRIDGE IVPUSH (00:30)
[2020-06-09 00:45] LABS: Venous Blood Gas Refer to POC result
[2020-06-09 00:47] LABS: SLIDE REVIEW VERIFIED
[2020-06-09 00:47] LABS: VBG Base Excess 3.8 mmol/L; VBG HCO3 22 mmol/L (22-26); VBG pCO2 22 mmHg; VBG pH 7.62 (7.32-7.43); VBG pO2 237 mmHg
--- NOTE | 2020-06-09 00:50 | ED_ITS ---
HPI - Abdominal Pain General Chief Complaint: Abdominal Pain Stated Complaint: abd pain Time Seen by Provider: 06/09/20 00:13 Source: patient Mode of arrival: EMS Limitations: no limitations History of Present Illness HPI narrative: Patient legally blind diabetic type 1 on insulin been here frequently for uncontrolled blood sugar. Yesterday patient's blood sugar was less than 200 today he did not check his blood sugar but since morning complaining of mid abdominal pain and nausea and vomiting vomited about 6-7 times did not eat much similar to previous ER visits when he had ketoacidosis. Patient's blood sugar was 572 patient is on insulin pump and it is on MD elicited complaint: abdominal pain Pertinent past history: other (DKA) Onset (ago): hour(s) Pain Consistency: constant Location: epigastric Severity: moderate Quality: sharp Radiation: epigastric Migration to: no migration Exacerbating factors: eating Relieving factors: nothing Associated symptoms: nausea and vomiting Related Data Home Medications Medication Instructions Recorded Confirmed gabapentin 600 mg tablet 600 mg PO TID 01/04/20 05/31/20 losartan 50 mg tablet 50 mg PO DAILY 01/04/20 05/31/20 nortriptyline 50 mg capsule 50 mg PO BEDTIME 01/04/20 05/31/20 omeprazole 40 mg capsule,delayed 40 mg PO DAILY@0630 01/04/20 05/31/20 release tramadol 50 mg tablet 50 mg PO DAILY PRN 01/04/20 05/31/20 citalopram 20 mg tablet 20 mg PO DAILY 03/28/20 05/31/20 sertraline 100 mg tablet 100 mg PO DAILY 03/28/20 05/31/20 trazodone 100 mg tablet 100 mg PO BEDTIME 05/31/20 05/31/20 Previous Rx's Medication Instructions Recorded atorvastatin 80 mg tablet 80 mg PO DAILY #30 tab 01/04/20 sucralfate 1 gram tablet 1 g PO QID 30 Days #120 tab 02/08/20 amlodipine 10 mg PO DAILY 30 Days #30 tab 03/27/20 glucose 4 gram chewable tablet 4 g PO Q15M PRN 30 Days #60 tab 03/28/20 metoclopramide HCl [Reglan] 10 mg PO Q6H PRN #20 tab 03/30/20 cholecalciferol (vitamin D3) 50 50 mcg PO DAILY 30 Days #30 cap 04/05/20 mcg (2,000 unit) capsule ezetimibe 10 mg tablet 10 mg PO DAILY 90 Days #90 tab 04/05/20 insulin glargine [Lantus U-100 20 unit SUBCUT DAILY 30 Days #6 ml 04/14/20 Insulin] metoclopramide HCl [Reglan] 5 mg PO DAILY PRN #7 tab 04/14/20 oxycodone 5 mg PO Q8H PRN #9 tab 04/14/20 insulin pump cartridge 1 ea SUBCUT .COMPLEX 30 Days #45 ea 04/23/20 insulin lispro 100 unit/mL See Rx Instructions SUBCUT 05/11/20 subcutaneous solution .COMPLEX 30 Days #30 ml dicyclomine 10 mg capsule 10 mg PO TID #30 cap 05/29/20 Allergies Allergy/AdvReac Type Severity Reaction Status Date / Time No Known Allergies Allergy Verified 05/29/20 08:51 [No Known Allergies*] Review of Systems Review of Systems Constitutional : No Weight loss, No Fever, No Chills ENT/Mouth : No sore throat, No Rhinorrhea Eyes: No Eye Pain, No Swelling Cardiovascular : No Chest Pain, no palpitations Respiratory : No Cough, No Sputum, no shortness of breath Gastrointestinal : + Nausea, + Vomiting, No Diarrhea, + abdominal Pain, no black stools Genitourinary : No Dysuria, No Urinary Frequency Musculoskeletal : No joint pain, No Myalgias, No Joint Swelling Skin : No Skin Lesions, No rash Neuro : No Weakness, No Numbness, No Dizziness, No Headache Psych : No Anxiety/Panic, No Depression Heme/Lymph: No Bruising, No Lymphadenopathy Endocrine : No Polyuria, No Polydipsia All other systems reviewed and are negative Physical Exam Vital Signs: Vital Signs: Last Vital Signs Temp 97.9 F 06/09/20 00:21 Pulse 116 H 06/09/20 01:34 Resp 14 06/09/20 01:34 BP 191/121 H 06/09/20 01:34 Pulse Ox 100 06/09/20 01:34 Body Mass Index 22.8 Const: General: alert, in distress and ill appearing Orientation/cons ciousness: patient oriented x3 HENMT: Head: Yes normocephalic Ears: hearing grossly normal bilaterally General nose exam: Normal external nose present Face and sinus: Yes normal facial exam Mouth: Normal oral and palatal mucosa present Eyes: Other: Legally blind both eyes Neck: Neck: Yes normal visual inspection, Yes full ROM and Yes no lymphadenopathy Chest: Chest palpation & inspection: normal inspection of the chest and normal palpation of entire chest wall Resp: Effort & Inspection: normal respiratory effort Auscultation: clear to auscultation bilaterally, no crackles, no rales and no rhonchi Cardio: Jugular venous distension: no JVD Palpation: normal PMI Rate: regular rate Rhythm: regular rhythm Heart sounds: S1 normal heart sound present and S2 normal heart sound present Peripheral pulses: Peripheral pulses 2+ throughout GI: Inspection: Yes normal to inspection Palpation (GI): Soft to palpation and nontender Auscultation: normal bowel sounds : General: Yes no CVA tenderness Back/Spine/Pelvis: Back: no CVA tenderness Thoracic/Lumbar Spine: thoracic and lumbar spine normal to inspection Skin: General skin exam: no rashes or lesions noted Neuro: General: patient oriented x3 and no focal motor deficits Extrem: General: Yes normal to inspection, Yes full ROM and Yes no calf tenderness MDM - Abdominal Pain MDM Narrative Medical decision making narrative: 12:56AM : Patient with elevated blood sugar 572 , venous gases showed pH of 7.6 to with bicarb of 22 rest of the labs are pending will give him IV fluids and Humalog insulin 2 am patient received 2 L of IV fluids blood sugar has improved to 431 continue to give more fluids. Patient creatinine is elevated to 2.8 which is acute renal injury from his baseline of 1.2 will admit patient for acute renal injury with diabetic hyperglycemia nonketotic elevated lactic acid is from acute renal failure, it is type B not infection cause Differential Diagnosis Differential diagnosis: Likely gastritis Medical Records Attestation: I reviewed the patient's medical records. Lab Data Attestation: I reviewed the patient's lab results. Result diagrams: 06/09/20 00:24 06/09/20 00:24 Labs: Lab Results 06/08/20 06/09/20 06/09/20 Range/Units 23:40 00:24 00:24 WBC 14.1 H (4.8-10.8) X10*3/uL RBC 4.84 D (4.60-5.80) X10*6/uL Hgb 14.3 D (14.0-18.0) g/dl Hct 41.1 L D (42-52) % MCV 84.9 (80-98) fL MCH 29.5 (27.0-33.0) pg MCHC 34.8 (31.0-36.0) g/dl RDW 11.4 (11.0-16.0) % Plt Count 261 (160-400) X10*3/uL MPV 11.0 (9.4-12.4) fL Immature Gran % (Auto) 0.3 (0.0-0.4) % Neut % (Auto) 90.3 H (45-73) % Lymph % (Auto) 6.3 L (20-40) % [place] % (Auto) 3.0 (2-11) % Eos % (Auto) 0.0 (0-4) % Baso % (Auto) 0.1 (0-2) % Lymph # (Auto) 0.9 L (1.2-4.9) X10*3/uL [place] # (Auto) 0.4 (0.1-1.2) X10*3/uL Eos # (Auto) 0.0 (0.0-0.4) X10*3/uL Baso # (Auto) 0.0 (0.0-0.2) X10*3/uL Abs Immat Gran (auto) 0.04 H (0.00-0.03) X10*3/uL Absolute Neuts (auto) 12.7 H (2.0-8.3) X10*3/uL Absolute Nucleated RBC 0.000 (0.0-0.012) X10*3/uL Nucleated RBC % (auto) 0.0 (0.0-0.2) /100WBC Smear Tech's Comments VERIFIED PT (10.8-13.0) SEC INR (0.9-1.1) VBG pH (7.32-7.43) VBG pCO2 mmHg VBG pO2 mmHg VBG HCO3 (22-26) mmol/L VBG O2 Saturation % VBG Base Excess mmol/L Sodium 137 (135-145) mmol/L Potassium 5.4 H D (3.3-5.1) mmol/L Chloride 91 L (96-108) mmol/L Carbon Dioxide 25 (22-29) mmol/L Anion Gap 26 H (12-20) BUN 32 H D (9-16) mg/dL Creatinine 2.80 H (0.5-1.4) mg/dL Estim Creat Clear Calc 35.4 Estimated GFR 26 POC Glucose 572 H* (60-115) mg/dL Random Glucose 597 H* (60-115) mg/dL Lactic Acid (0.5-2.0) mmol/L Calcium 10.3 H D (8.4-10.2) mg/dL Total Bilirubin 0.6 (0.0-1.0) mg/dL AST 19 (5-37) U/L ALT 18 (0-40) U/L Alkaline Phosphatase 111 D (39-117) U/L Total Protein 8.1 H D (6.5-8.0) g/dL Albumin 4.7 (3.5-5.0) g/dL Lipase 19 (8-78) U/L Acetone, Qual Negative (Negative) COVID-19 (SABINE) (Negative) COVID-19 Clin Com 06/09/20 06/09/20 06/09/20 Range/Units 00:24 00:24 00:25 WBC (4.8-10.8) X10*3/uL RBC (4.60-5.80) X10*6/uL Hgb (14.0-18.0) g/dl Hct (42-52) % MCV (80-98) fL MCH (27.0-33.0) pg MCHC (31.0-36.0) g/dl RDW (11.0-16.0) % Plt Count (160-400) X10*3/uL MPV (9.4-12.4) fL Immature Gran % (Auto) (0.0-0.4) % Neut % (Auto) (45-73) % Lymph % (Auto) (20-40) % [place] % (Auto) (2-11) % Eos % (Auto) (0-4) % Baso % (Auto) (0-2) % Lymph # (Auto) (1.2-4.9) X10*3/uL [place] # (Auto) (0.1-1.2) X10*3/uL Eos # (Auto) (0.0-0.4) X10*3/uL Baso # (Auto) (0.0-0.2) X10*3/uL Abs Immat Gran (auto) (0.00-0.03) X10*3/uL Absolute Neuts (auto) (2.0-8.3) X10*3/uL Absolute Nucleated RBC (0.0-0.012) X10*3/uL Nucleated RBC % (auto) (0.0-0.2) /100WBC Smear Tech's Comments PT 12.0 (10.8-13.0) SEC INR 1.0 (0.9-1.1) VBG pH (7.32-7.43) VBG pCO2 mmHg VBG pO2 mmHg VBG HCO3 (22-26) mmol/L VBG O2 Saturation % VBG Base Excess mmol/L Sodium Cancelled (135-145) mmol/L Potassium Cancelled (3.3-5.1) mmol/L Chloride Cancelled (96-108) mmol/L Carbon Dioxide Cancelled (22-29) mmol/L Anion Gap Cancelled (12-20) BUN Cancelled (9-16) mg/dL Creatinine Cancelled (0.5-1.4) mg/dL Estim Creat Clear Calc Cancelled Estimated GFR Cancelled POC Glucose (60-115) mg/dL Random Glucose Cancelled (60-115) mg/dL Lactic Acid (0.5-2.0) mmol/L Calcium Cancelled (8.4-10.2) mg/dL Total Bilirubin Cancelled (0.0-1.0) mg/dL AST Cancelled (5-37) U/L ALT Cancelled (0-40) U/L Alkaline Phosphatase Cancelled (39-117) U/L Total Protein Cancelled (6.5-8.0) g/dL Albumin Cancelled (3.5-5.0) g/dL Lipase Cancelled (8-78) U/L Acetone, Qual (Negative) COVID-19 (SABINE) Negative (Negative) COVID-19 Clin Com See Note 06/09/20 06/09/20 06/09/20 Range/Units 00:31 00:35 01:17 WBC (4.8-10.8) X10*3/uL RBC (4.60-5.80) X10*6/uL Hgb (14.0-18.0) g/dl Hct (42-52) % MCV (80-98) fL MCH (27.0-33.0) pg MCHC (31.0-36.0) g/dl RDW (11.0-16.0) % Plt Count (160-400) X10*3/uL MPV (9.4-12.4) fL Immature Gran % (Auto) (0.0-0.4) % Neut % (Auto) (45-73) % Lymph % (Auto) (20-40) % [place] % (Auto) (2-11) % Eos % (Auto) (0-4) % Baso % (Auto) (0-2) % Lymph # (Auto) (1.2-4.9) X10*3/uL [place] # (Auto) (0.1-1.2) X10*3/uL Eos # (Auto) (0.0-0.4) X10*3/uL Baso # (Auto) (0.0-0.2) X10*3/uL Abs Immat Gran (auto) (0.00-0.03) X10*3/uL Absolute Neuts (auto) (2.0-8.3) X10*3/uL Absolute Nucleated RBC (0.0-0.012) X10*3/uL Nucleated RBC % (auto) (0.0-0.2) /100WBC Smear Tech's Comments PT (10.8-13.0) SEC INR (0.9-1.1) VBG pH 7.62 H* (7.32-7.43) VBG pCO2 22 mmHg VBG pO2 237 mmHg VBG HCO3 22 (22-26) mmol/L VBG O2 Saturation 99.0 % VBG Base Excess 3.8 mmol/L Sodium (135-145) mmol/L Potassium (3.3-5.1) mmol/L Chloride (96-108) mmol/L Carbon Dioxide (22-29) mmol/L Anion Gap (12-20) BUN (9-16) mg/dL Creatinine (0.5-1.4) mg/dL Estim Creat Clear Calc Estimated GFR POC Glucose 431 H* (60-115) mg/dL Random Glucose (60-115) mg/dL Lactic Acid 3.9 H* (0.5-2.0) mmol/L Calcium (8.4-10.2) mg/dL Total Bilirubin (0.0-1.0) mg/dL AST (5-37) U/L ALT (0-40) U/L Alkaline Phosphatase (39-117) U/L Total Protein (6.5-8.0) g/dL Albumin (3.5-5.0) g/dL Lipase (8-78) U/L Acetone, Qual (Negative) COVID-19 (SABINE) (Negative) COVID-19 Clin Com ECG Data Attestation: I personally reviewed and interpreted this ECG as follows: Interpretation: Sinus tachycardia with heart rate 110 beats per minute normal intervals normal axis no acute ST T wave changes no acute ischemia Critical Care Time Critical Care Time Critical Care Time: Yes Total Critical Care Time: 45 Attestation: I spent 45 minutes of critical care, with interventions, assessments, speaking to patient. Discharge Plan Discharge Clinical Impression: Hyperglycemia due to type 1 diabetes mellitus, Hypertension associated with diabetes Acute on chronic kidney failure Qualifiers: Acute renal failure type: unspecified Chronic kidney disease stage: stage 3 (moderate) Chronic kidney disease stage 3 subtype: stage 3b (GFR 30-44) Qualified Code(s): N17.9 - Acute kidney failure, unspecified Patient Disposition: Admitted As Inpatient [facility] Past Medical History Medical History Acid reflux Chronic kidney disease, stage 3 Diabetes type 1, uncontrolled 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 Diabetic visual loss, with retinopathy, associated with type 1 diabetes mellitus Essential hypertension Gastritis Hemangioma of liver Hypocalcemia Legally blind Polyneuropathy Sciatica Vitamin D deficiency Surgical History Hx of appendectomy Hx of circumcision Hx of endoscopy Hx of eye surgery Family History Family History Father Diabetes mellitus Mother Diabetes mellitus Maternal Grandfather Diabetes mellitus Maternal Grandmother Diabetes mellitus Social History Social History Household Members: Spouse and Children Housing: Apartment Alcohol intake: current Alcohol intake frequency: a few times a month Alcohol type: hard liquor Smoking Status: Never smoker Second Hand Smoke Exposure: No Use of substances other than those prescribed or required for medical reasons: Yes Substance Use Type: Marijuana Substance Use Frequency: Occasionally Last Used Substance: Days (ago) Any prior treatment program specific to substance use: No Advance Directives: No Advance Directives Information Provided: No service: No Current occupational status: disabled
[2020-06-09 00:53] LABS: COVID-19 Test Negative (Negative); IDNOW Serial# 9DD0AD1C
[2020-06-09 01:10] LABS: Acetone, serum QL Negative (Negative)
[2020-06-09 01:14] LABS: Lactic Acid 3.9 mmol/L (0.5-2.0)
[2020-06-09 01:22] LABS: Alanine Aminotransferase 18 U/L (0-40); Albumin Level 4.7 g/dL (3.5-5.0); Alkaline Phosphatase 111 U/L (39-117); Anion Gap 26 (12-20); Aspartate Amino Transferase 19 U/L (5-37); Bilirubin Total 0.6 mg/dL (0.0-1.0); Blood Urea Nitrogen 32 mg/dL (9-16); Calcium 10.3 mg/dL (8.4-10.2); Carbon Dioxide 25 mmol/L (22-29); Chloride 91 mmol/L (96-108); Creatinine Clr Calc Pharmacy 35.4; Estimated Glomerular Filt Rate 26; Glucose Random 597 mg/dL (60-115); Lipase 19 U/L (8-78); Potassium 5.4 mmol/L (3.3-5.1); Sodium 137 mmol/L (135-145); Total Protein 8.1 g/dL (6.5-8.0)
[2020-06-09 01:24] LABS: Glucose, Whole Blood 431 mg/dL (60-115)
[2020-06-09] MEDS: Insulin Lispro 100 UNIT/ML 3 ML VIAL 10 UNIT SUBCUT (01:32)
[2020-06-09] MEDS: Labetalol HCL 100 MG/20 ML VIAL 20 MG IVPUSH (02:19)
--- NOTE | 2020-06-09 02:22 | P.HPHOSP_ITS ---
History of Present Illness Date of Service: 06/09/20 Chief Complaint: Nausea/vomiting 34-year-old male with a past medical history of hypertension, hyperlipidemia, type 1 diabetes on insulin pump, diabetic neuropathy, legally blind, history of pancreatitis, GERD presented to the hospital with a chief complaint of nausea vomiting and abdominal discomfort. Patient mentioned that he had multiple episodes of nausea and vomiting, no blood in the vomitus. Also complains of mild abdominal discomfort. Mentions that had similar presentation when he was diagnosed with diabetic ketoacidosis. Denies any chest pain palpitations lightheadedness or dizziness. Denies any headaches numbness tingling. Review of all other systems is negative except mentioned above ER course: Per ER team patient exam was benign. Noted to be in [place] on CKD, given 2 L of normal saline IV fluids. Also had increased glucose elevated to 500s. Patient on insulin pump. Given subcutaneous insulin. Mention patient not in DKA currently. PH of 7.6. Admitted to the hospital for further management. [facility] Medical History Acid reflux Chronic kidney disease, stage 3 Diabetes type 1, uncontrolled 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 Diabetic visual loss, with retinopathy, associated with type 1 diabetes mellitus Essential hypertension Gastritis Hemangioma of liver Hypocalcemia Legally blind Polyneuropathy Sciatica Vitamin D deficiency Family History Father Diabetes mellitus Mother Diabetes mellitus Maternal Grandfather Diabetes mellitus Maternal Grandmother Diabetes mellitus Surgical History Hx of appendectomy Hx of circumcision Hx of endoscopy Hx of eye surgery Social History Household Members: Spouse and Children Housing: Apartment Do you presently have visiting nurse or other home services: No Alcohol intake: current Alcohol intake frequency: holidays/special occasions only Alcohol type: hard liquor Smoking Status: Current some day smoker Tobacco Type: Cigarette Smoked in Last 30 Days: Yes Patient Interested in Nicotine Replacement: No Second Hand Smoke Exposure: No Use of substances other than those prescribed or required for medical reasons: No Substance Use Type: Marijuana Substance Use Frequency: Socially Last Used Substance: Days (ago) Currently Displaying Signs/Symptoms of Drug Intoxication Withdrawal: No Any prior treatment program specific to substance use: No Have you been hit, kicked, punched, or otherwise hurt by someone within the past year? If so, by whom?: No Do you feel safe in your current relationship?: Yes Is there a partner from a previous relationship who is making you feel unsafe now?: No Are you made to feel afraid or neglected: No Advance Directives: No Advance Directives Information Provided: No Do you have thoughts of harming others: None Do you have a plan to hurt others: No Plan Recently lost weight without trying: No service: No Current occupational status: disabled Meds Allergies Allergy/AdvReac Type Severity Reaction Status Date / Time No Known Allergies Allergy Verified 05/29/20 08:51 [No Known Allergies*] Active Medications: Current Medications Generic Name Dose Route Start Last Admin Trade Name Freq PRN Reason Stop Dose Admin Acetaminophen 650 mg 06/09/20 02:13 Acetaminophen 325 Mg Tablet PO Q6H PRN Pain, Mild (Pain Scale 1-3) Docusate Sodium 100 mg 06/09/20 02:13 Docusate Sodium 100 Mg Capsule PO DAILY PRN Constipation Sodium Chloride 1,000 mls @ 100 mls/hr 06/09/20 02:15 Ns IVCONT .Q10H [place] Sodium Chloride 1,000 mls @ 999 mls/hr 06/09/20 02:30 Ns IVCONT 06/09/20 03:30 .Q1H1M [facility] Insulin Human Lispro 0 unit 06/09/20 07:30 Insulin Lispro 100 Unit/Ml 3 Ml Vial SUBCUT QIDACHS [facility] Protocol Labetalol HCl 10 mg 06/09/20 02:19 Labetalol Hcl 100 Mg/20 Ml Vial IVPUSH Q4H PRN BP>180/90 Senna 17.2 mg 06/09/20 02:13 Sennosides 8.6 Mg Tablet PO BEDTIME PRN Constipation Sodium Chloride 3 ml 06/09/20 08:00 0.9 % Sodium Chloride Flush 3 Ml Syringe IVFLUSH QSHIFT [facility] Home Medications Medication Instructions Recorded Confirmed Last Taken Type gabapentin 600 mg tablet 600 mg PO TID 01/04/20 06/09/20 06/08/20 History nortriptyline 50 mg capsule 50 mg PO BEDTIME 01/04/20 06/09/20 06/08/20 History omeprazole 40 mg capsule,delayed 40 mg PO DAILY@0630 01/04/20 06/09/20 06/08/20 History release tramadol 50 mg tablet 50 mg PO DAILY PRN 01/04/20 06/09/20 06/08/20 History citalopram 20 mg tablet 20 mg PO DAILY 03/28/20 06/09/20 06/08/20 History sertraline 100 mg tablet 100 mg PO DAILY 03/28/20 06/09/20 06/08/20 History trazodone 100 mg tablet 100 mg PO BEDTIME 05/31/20 06/09/20 06/08/20 History Physical Exam Vital Signs and Narrative: Vital Signs: Last Vital Signs Temp 97.9 F 06/09/20 00:21 Pulse 116 H 06/09/20 01:34 Resp 14 06/09/20 01:34 BP 191/121 H 06/09/20 01:34 Pulse Ox 100 06/09/20 01:34 Body Mass Index 22.8 Gen: Appears be in no acute distress HEENT: NCAT, Moist mucosa. Pulmonary: Vesicular breath sounds, fair air entry CVS: Normal S1-S2 Abdomen: BS+, Soft, Nontender Extremities: Warm well perfused Neuro: Alert and awake. Results Labs CBC and Chem 7: 06/09/20 06:56 06/11/20 06:45 Labs: Laboratory Results - last 24 hr 06/08/20 06/09/20 06/09/20 23:40 00:24 00:24 MCV 84.9 MCH 29.5 MCHC 34.8 RDW 11.4 Plt Count 261 MPV 11.0 Immature Gran % (Auto) 0.3 Neut % (Auto) 90.3 H Lymph % (Auto) 6.3 L [place] % (Auto) 3.0 Eos % (Auto) 0.0 Baso % (Auto) 0.1 Lymph # (Auto) 0.9 L [place] # (Auto) 0.4 Eos # (Auto) 0.0 Baso # (Auto) 0.0 Abs Immat Gran (auto) 0.04 H Absolute Neuts (auto) 12.7 H Absolute Nucleated RBC 0.000 Nucleated RBC % (auto) 0.0 Smear Tech's Comments VERIFIED PT INR VBG pH VBG pCO2 VBG pO2 VBG HCO3 VBG O2 Saturation VBG Base Excess Anion Gap 26 H Estim Creat Clear Calc 35.4 Estimated GFR 26 POC Glucose 572 H* Random Glucose 597 H* Lactic Acid Calcium 10.3 H D Total Bilirubin 0.6 AST 19 ALT 18 Alkaline Phosphatase 111 D Total Protein 8.1 H D Albumin 4.7 Lipase 19 Acetone, Qual Negative COVID-19 (SABINE) COVID-19 [employer] Com 06/09/20 06/09/20 06/09/20 00:24 00:24 00:25 MCV MCH MCHC RDW Plt Count MPV Immature Gran % (Auto) Neut % (Auto) Lymph % (Auto) [place] % (Auto) Eos % (Auto) Baso % (Auto) Lymph # (Auto) [place] # (Auto) Eos # (Auto) Baso # (Auto) Abs Immat Gran (auto) Absolute Neuts (auto) Absolute Nucleated RBC Nucleated RBC % (auto) Smear Tech's Comments PT 12.0 INR 1.0 VBG pH VBG pCO2 VBG pO2 VBG HCO3 VBG O2 Saturation VBG Base Excess Anion Gap Cancelled Estim Creat Clear Calc Cancelled Estimated GFR Cancelled POC Glucose Random Glucose Cancelled Lactic Acid Calcium Cancelled Total Bilirubin Cancelled AST Cancelled ALT Cancelled Alkaline Phosphatase Cancelled Total Protein Cancelled Albumin Cancelled Lipase Cancelled Acetone, Qual COVID-19 (SABINE) Negative [employer] See Note 06/09/20 06/09/20 06/09/20 00:31 00:35 01:17 MCV MCH MCHC RDW Plt Count MPV Immature Gran % (Auto) Neut % (Auto) Lymph % (Auto) [place] % (Auto) Eos % (Auto) Baso % (Auto) Lymph # (Auto) [place] # (Auto) Eos # (Auto) Baso # (Auto) Abs Immat Gran (auto) Absolute Neuts (auto) Absolute Nucleated RBC Nucleated RBC % (auto) Smear Tech's Comments PT INR VBG pH 7.62 H* VBG pCO2 22 VBG pO2 237 VBG HCO3 22 VBG O2 Saturation 99.0 VBG Base Excess 3.8 Anion Gap Estim Creat Clear Calc Estimated GFR POC Glucose 431 H* Random Glucose Lactic Acid 3.9 H* Calcium Total Bilirubin AST ALT Alkaline Phosphatase Total Protein Albumin Lipase Acetone, Qual COVID-19 (SABINE) COVID-[employer] Imaging Radiologist's Impressions: Impressions Chest X-Ray 06/09/20 00:50 IMPRESSION: No evidence for acute disease. Assessment and Plan (1) Hyperglycemia due to type 1 diabetes mellitus: Status: Acute 34-year-old male with a past medical history of hypertension, hyperlipidemia, type 1 diabetes on insulin pump, diabetic neuropathy, legally blind, chronic kidney disease presented to hospital with a chief complaint of nausea vomiting and abdominal discomfort. Noted to have hyperlipidemia and [place] on CKD. Admitted for further management. Hyperglycemia: Patient has high anion gap of 26. PH of 7.6. Monitor fingerstick glucose. Continue IV fluids. Diabetes: Will continue the patient on home insulin pump. Recommended outpatient follow-up with endocrinology. KAYODE on CKD: Will hold home Parag inhibitors. Avoid nephrotoxins. Will repeat chemistry. Hypertensive urgency: Continue home amlodipine. Labetalol p.r.n.. Lactic acidosis: In the setting of dehydration. Patient on IV fluids. Contraction alkalosis: Continue IV fluids. DVT prophylaxis: SCD boots Code status: Full code
--- NOTE | 2020-06-09 02:32 | PC.NURSE ---
ikra from hospitalist to give 1l ns now.
[2020-06-09] MEDS: 0.9 % Sodium Chloride 1,000 ML 100 ML IVCONT ×2 (02:36→12:49)
[2020-06-09 02:37] LABS: Reflex Lactate? Lactic Acid Added
[2020-06-09 02:47] LABS: Appearance Urine CLEAR; Color Urine STRAW; Glucose Urine UA >=1000 MG/DL (NEG); Leukocyte Esterase Urine NEG (NEG); Nitrite Urine NEG (NEG); Specific Gravity - Urine 1.015 (1.005-1.025); Urine Blood 1+ (NEG); Urine Ketones 5 MG/DL (NEG); Urine Protein 2+ MG/DL (NEG-TRACE)
[2020-06-09 02:51] LABS: Glucose, Whole Blood 294 mg/dL (60-115)
[2020-06-09 02:53] LABS: RBC Urine 0-2 /HPF (0); WBC Urine 0-2 /HPF (0-4)
--- NOTE | 2020-06-09 03:52 | PC.NURSE ---
pt given ns bolus at 0236 of ns and at 0337 ns 100cchr started. unable to edit iv in system.
[2020-06-09 03:53] LABS: ~Lactic Acid-LAB USE ONLY 2.8 mmol/L (0.5-2.0)
[2020-06-09 03:56] LABS: Anion Gap 17 (12-20); Blood Urea Nitrogen 27 mg/dL (9-16); Calcium 8.9 mg/dL (8.4-10.2); Carbon Dioxide 25 mmol/L (22-29); Chloride 105 mmol/L (96-108); Creatinine Clr Calc Pharmacy 46.1; Estimated Glomerular Filt Rate 35; Glucose Random 266 mg/dL (60-115); Potassium 3.6 mmol/L (3.3-5.1); Sodium 143 mmol/L (135-145)
[2020-06-09] MEDS: Labetalol HCL 100 MG/20 ML VIAL 10 MG IVPUSH ×2 (03:59→12:50)
[2020-06-09] MEDS: Acetaminophen 325 MG TABLET 650 MG PO (04:01)
[2020-06-09 05:19] LABS: Reflex Lactate? 2 Y
[2020-06-09] MEDS: Insulin Lispro 100 UNIT/ML 3 ML VIAL SUBCUT ×4 (07:00→21:02)
[2020-06-09 07:01] LABS: MANUAL DIFF FLAG NO
[2020-06-09 07:15] LABS: Basophils Percent Auto 0.1 % (0-2); Hematocrit 36.9 % (42-52); Hemoglobin 12.8 g/dl (14.0-18.0); Imm Gran Abs Auto 0.05 X10*3/uL (0.00-0.03); Imm Gran Pct Auto 0.4 % (0.0-0.4); Lymphocytes Percent Auto 8.1 % (20-40); Mean Corpuscular HGB Conc 34.7 g/dl (31.0-36.0); Mean Corpuscular Hemoglobin 29.9 pg (27.0-33.0); Mean Corpuscular Volume 86.2 fL (80-98); Mean Platelet Volume 10.5 fL (9.4-12.4); Monocytes Absolute Auto 0.6 X10*3/uL (0.1-1.2); Monocytes Percent Auto 4.6 % (2-11); Neutrophils Percent Auto 86.8 % (45-73); Platelet Count 225 X10*3/uL (160-400); Red Blood Count 4.28 X10*6/uL (4.60-5.80); Red Cell Distribution Width 11.5 % (11.0-16.0); White Blood Count 12.6 X10*3/uL (4.8-10.8)
[2020-06-09 07:42] LABS: Anion Gap 17 (12-20); Blood Urea Nitrogen 26 mg/dL (9-16); Calcium 8.8 mg/dL (8.4-10.2); Carbon Dioxide 25 mmol/L (22-29); Chloride 105 mmol/L (96-108); Creatinine Clr Calc Pharmacy 49.8; Estimated Glomerular Filt Rate 38; Glucose Random 199 mg/dL (60-115); Potassium 3.9 mmol/L (3.3-5.1); Sodium 143 mmol/L (135-145); ~Lactic Acid-LAB USE ONLY 2.4 mmol/L (0.5-2.0)
[2020-06-09] MEDS: HYDROmorphone HCl 0.5 MG/0.5 ML SYRINGE 0.25 MG IVPUSH ×3 (08:47→16:38)
--- NOTE | 2020-06-09 09:28 | MHC.CM.PN ---
PT REPORTS HE LIVES AT HOME WITH HIS S/O, LUISA, AND THEIR CHILDREN. HE REPORTS HE IS INDEPENDENT WITH SELF CARE AND USES ONLY [employer] FOR DME. PT REPORTS HIS PCP IS TARAS RICHARDSON. PT DOES NOT HAVE A HCP AND DECLINES TO COMPLETE ONE TODAY. CURRENT DC PLAN IS HOME WITH NO NEW SERVICES PT WILL SELF ARRANGE TRANSPORT
[2020-06-09 11:53] LABS: Glucose, Whole Blood 381 mg/dL (60-115)
--- NOTE | 2020-06-09 12:34 | PC.NURSE ---
1145 THIS RN ASSUMED CARE OF PATIENT. PT AXOX4, THIRSTY.. WHAT LOOKED LIKE COFFEE GROUND EMISIS IN CUP AT BEDSIDE BUT GUAIC NEGATIVE FOR THIS RN. PT C/O ABOMINAL PAIN 12/02. bp'S HAVE BEEN HIGH THROUGHOUT STAY. PLACED BACK ON MONITOR AND ST WITH NARROW COMPLEX. PT ALSO C/O HEART BURN ADDITIONAL WATER PROVIDED, URINAL EMPTIED X 2. WARM BLANKET. PT HAS CONTINUAL INSULIN PUMP PLACED ON LEFT FLANK. STATES MANAGES IT FOR HIM. CURRENTLY RUNNING AT 1UNIT/HOUR BASAL RATE AND LAST BOLUS VIA HOME PUMP WAS ON 06/08. THIS RN TO TREAT bp, GLUCOSE AND PAIN. ADDITIONAL WATER PROVIDED. AWAITS ROOM ON FLOOR.
[2020-06-09 13:56] LABS: Glucose, Whole Blood 340 mg/dL (60-115)
--- NOTE | 2020-06-09 14:42 | PC.NURSE ---
floor called but unable to recieve report at this time. awaiting return call.
--- NOTE | 2020-06-09 15:03 | PC.NURSE ---
rn to rn with
--- NOTE | 2020-06-09 15:29 | HO.PM.IMPN ---
Subjective Subjective Date of Service: 06/09/20 Interval History: nausea improving no fever Physical Exam Vital Signs: Vital Signs: Last Vital Signs Temp 98.1 F 06/09/20 02:25 Pulse 108 H 06/09/20 13:52 Resp 14 06/09/20 13:52 BP 162/101 H 06/09/20 13:52 Pulse Ox 98 06/09/20 12:31 Body Mass Index 22.8 Gen: in no acute distress HEENT: sclera anicteric, moist mucus membranes Neck: supple Lungs: clear to auscultation bilaterally Heart: regular rate and rhythm, no murmurs Abd: soft, non-tender, non-distended Ext: no edema Skin: warm/well-perfused Neuro: alert and oriented x3, no focal findings Psych: appropriate affect Objective Data Current Medications Generic Name Dose Route Start Last Admin Trade Name Freq PRN Reason Stop Dose Admin Acetaminophen 650 mg 06/09/20 02:13 06/09/20 04:01 Acetaminophen 325 Mg Tablet PO 650 mg Q6H PRN Administration Pain, Mild (Pain Scale 1-3) Amlodipine Besylate 10 mg 06/09/20 14:12 Amlodipine Besylate 10 Mg Tablet PO DAILY [facility] Protocol Atorvastatin Calcium 80 mg 06/09/20 21:00 Atorvastatin Calcium 80 Mg Tablet PO BEDTIME [facility] Dicyclomine HCl 10 mg 06/09/20 14:12 Dicyclomine Hcl 10 Mg Capsule PO TID [facility] Docusate Sodium 100 mg 06/09/20 02:13 Docusate Sodium 100 Mg Capsule PO DAILY PRN Constipation Hydromorphone HCl 0.25 mg 06/09/20 08:06 06/09/20 12:49 Hydromorphone Hcl 0.5 Mg/0.5 Ml Syringe IVPUSH 0.25 mg Q4H PRN Administration pain,severe Sodium Chloride 1,000 mls @ 100 mls/hr 06/09/20 02:15 06/09/20 12:49 Ns IVCONT 100 mls/hr .Q10H [facility] Administration Insulin Glargine 20 unit 06/09/20 21:00 Insulin Glargine,Hum.Rec.Anlog 100 Unit/Ml 10 Ml Vial SUBCUT BEDTIME [facility] Insulin Human Lispro 0 unit 06/09/20 07:30 06/09/20 12:48 Insulin Lispro 100 Unit/Ml 3 Ml Vial SUBCUT 10 unit QIDACHS [facility] Administration Protocol Labetalol HCl 10 mg 06/09/20 02:19 06/09/20 12:50 Labetalol Hcl 100 Mg/20 Ml Vial IVPUSH 10 mg Q4H PRN Administration BP>180/90 Metoclopramide HCl 10 mg 06/09/20 14:12 Metoclopramide Hcl 10 Mg Tablet PO Q6H PRN nausea and vomiting Nortriptyline HCl 50 mg 06/09/20 21:00 Nortriptyline Hcl 25 Mg Capsule PO BEDTIME [facility] Omeprazole 40 mg 06/10/20 06:30 Omeprazole 40 Mg Capsule.Dr PO DAILY@0630 [facility] Oxycodone HCl 5 mg 06/09/20 14:12 Oxycodone Hcl Immed Release 5 Mg Tablet PO Q8H PRN Pain, Mild (Pain Scale 1-3) Senna 17.2 mg 06/09/20 02:13 Sennosides 8.6 Mg Tablet PO BEDTIME PRN Constipation Sertraline HCl 100 mg 06/09/20 14:12 Sertraline Hcl 100 Mg Tablet PO DAILY [facility] Sodium Chloride 3 ml 06/09/20 08:00 06/09/20 11:56 0.9 % Sodium Chloride Flush 3 Ml Syringe IVFLUSH Not Given QSHIFT [facility] Sucralfate 1 gm 06/09/20 14:12 Sucralfate 1 Gm Tablet PO QID [facility] Trazodone HCl 100 mg 06/09/20 21:00 Trazodone Hcl 100 Mg Tablet PO BEDTIME [facility] Vitamin D 50 mcg 06/09/20 14:12 Cholecalciferol (Vitamin D3) 25 Mcg Tablet PO DAILY [facility] Labs CBC & Chem 7: 06/09/20 06:56 06/09/20 06:56 Labs: Laboratory Results - last 24 hr 06/08/20 06/09/20 06/09/20 23:40 00:24 00:24 WBC 14.1 H RBC 4.84 D Hgb 14.3 D Hct 41.1 L D MCV 84.9 MCH 29.5 MCHC 34.8 RDW 11.4 Plt Count 261 MPV 11.0 Immature Gran % (Auto) 0.3 Neut % (Auto) 90.3 H Lymph % (Auto) 6.3 L [place] % (Auto) 3.0 Eos % (Auto) 0.0 Baso % (Auto) 0.1 Lymph # (Auto) 0.9 L [place] # (Auto) 0.4 Eos # (Auto) 0.0 Baso # (Auto) 0.0 Abs Immat Gran (auto) 0.04 H Absolute Neuts (auto) 12.7 H Absolute Nucleated RBC 0.000 Nucleated RBC % (auto) 0.0 Smear Tech's Comments VERIFIED PT INR VBG pH VBG pCO2 VBG pO2 VBG HCO3 VBG O2 Saturation VBG Base Excess Sodium 137 Potassium 5.4 H D Chloride 91 L Carbon Dioxide 25 Anion Gap 26 H BUN 32 H D Creatinine 2.80 H Estim Creat Clear Calc 35.4 Estimated GFR 26 POC Glucose 572 H* Random Glucose 597 H* Lactic Acid Lactic Acid Fup @ 2Hr Lactic Acid Fup @ 4Hr Calcium 10.3 H D Total Bilirubin 0.6 AST 19 ALT 18 Alkaline Phosphatase 111 D Total Protein 8.1 H D Albumin 4.7 Lipase 19 Urine Color Urine Appearance Urine pH Ur Specific [place] Urine Protein Urine Glucose (UA) Urine Ketones Urine Blood Urine Nitrite Ur Leukocyte Esterase Urine RBC Urine WBC Ur Squamous Epith Cells Urine Bacteria Acetone, Qual Negative COVID-19 ([facility]) COVID-19 Clin Com 06/09/20 06/09/20 06/09/20 00:24 00:24 00:25 WBC RBC Hgb Hct MCV MCH MCHC RDW Plt Count MPV Immature Gran % (Auto) Neut % (Auto) Lymph % (Auto) [place] % (Auto) Eos % (Auto) Baso % (Auto) Lymph # (Auto) [place] # (Auto) Eos # (Auto) Baso # (Auto) Abs Immat Gran (auto) Absolute Neuts (auto) Absolute Nucleated RBC Nucleated RBC % (auto) Smear Tech's Comments PT 12.0 INR 1.0 VBG pH VBG pCO2 VBG pO2 VBG HCO3 VBG O2 Saturation VBG Base Excess Sodium Cancelled Potassium Cancelled Chloride Cancelled Carbon Dioxide Cancelled Anion Gap Cancelled BUN Cancelled Creatinine Cancelled Estim Creat Clear Calc Cancelled Estimated GFR Cancelled POC Glucose Random Glucose Cancelled Lactic Acid Lactic Acid Fup @ 2Hr Lactic Acid Fup @ 4Hr Calcium Cancelled Total Bilirubin Cancelled AST Cancelled ALT Cancelled Alkaline Phosphatase Cancelled Total Protein Cancelled Albumin Cancelled Lipase Cancelled Urine Color Urine Appearance Urine pH Ur Specific [place] Urine Protein Urine Glucose (UA) Urine Ketones Urine Blood Urine Nitrite Ur Leukocyte Esterase Urine RBC Urine WBC Ur Squamous Epith Cells Urine Bacteria Acetone, Qual COVID-19 ([facility]) Negative COVID-19 POI See Note 06/09/20 06/09/20 06/09/20 00:31 00:35 01:17 WBC RBC Hgb Hct MCV MCH MCHC RDW Plt Count MPV Immature Gran % (Auto) Neut % (Auto) Lymph % (Auto) [place] % (Auto) Eos % (Auto) Baso % (Auto) Lymph # (Auto) [place] # (Auto) Eos # (Auto) Baso # (Auto) Abs Immat Gran (auto) Absolute Neuts (auto) Absolute Nucleated RBC Nucleated RBC % (auto) Smear Tech's Comments PT INR VBG pH 7.62 H* VBG pCO2 22 VBG pO2 237 VBG HCO3 22 VBG O2 Saturation 99.0 VBG Base Excess 3.8 Sodium Potassium Chloride Carbon Dioxide Anion Gap BUN Creatinine Estim Creat Clear Calc Estimated GFR POC Glucose 431 H* Random Glucose Lactic Acid 3.9 H* Lactic Acid Fup @ 2Hr Lactic Acid Fup @ 4Hr Calcium Total Bilirubin AST ALT Alkaline Phosphatase Total Protein Albumin Lipase Urine Color Urine Appearance Urine pH Ur Specific [place] Urine Protein Urine Glucose (UA) Urine Ketones Urine Blood Urine Nitrite Ur Leukocyte Esterase Urine RBC Urine WBC Ur Squamous Epith Cells Urine Bacteria Acetone, Qual COVID-19 ([facility]) COVID-19 POI 06/09/20 06/09/20 06/09/20 02:39 02:45 03:16 WBC RBC Hgb Hct MCV MCH MCHC RDW Plt Count MPV Immature Gran % (Auto) Neut % (Auto) Lymph % (Auto) [place] % (Auto) Eos % (Auto) Baso % (Auto) Lymph # (Auto) [place] # (Auto) Eos # (Auto) Baso # (Auto) Abs Immat Gran (auto) Absolute Neuts (auto) Absolute Nucleated RBC Nucleated RBC % (auto) Smear Tech's Comments PT INR VBG pH VBG pCO2 VBG pO2 VBG HCO3 VBG O2 Saturation VBG Base Excess Sodium 143 Potassium 3.6 D Chloride 105 Carbon Dioxide 25 Anion Gap 17 BUN 27 H Creatinine 2.15 H Estim Creat Clear Calc 46.1 Estimated GFR 35 POC Glucose 294 H Random Glucose 266 H D Lactic Acid Lactic Acid Fup @ 2Hr Lactic Acid Fup @ 4Hr Calcium 8.9 D Total Bilirubin AST ALT Alkaline Phosphatase Total Protein Albumin Lipase Urine Color STRAW Urine Appearance CLEAR Urine pH 7.0 Ur Specific [place] 1.015 Urine Protein 2+ H Urine Glucose (UA) >=1000 H Urine Ketones 5 Urine Blood 1+ H Urine Nitrite NEG Ur Leukocyte Esterase NEG Urine RBC 0-2 Urine WBC 0-2 Ur Squamous Epith Cells NONE Urine Bacteria NONE Acetone, Qual COVID-19 ([facility]) COVID-19 POI 06/09/20 06/09/20 06/09/20 03:16 06:56 06:56 WBC 12.6 H RBC 4.28 L Hgb 12.8 L Hct 36.9 L MCV 86.2 MCH 29.9 MCHC 34.7 RDW 11.5 Plt Count 225 MPV 10.5 Immature Gran % (Auto) 0.4 Neut % (Auto) 86.8 H Lymph % (Auto) 8.1 L [place] % (Auto) 4.6 Eos % (Auto) 0.0 Baso % (Auto) 0.1 Lymph # (Auto) 1.0 L [place] # (Auto) 0.6 Eos # (Auto) 0.0 Baso # (Auto) 0.0 Abs Immat Gran (auto) 0.05 H Absolute Neuts (auto) 11.0 H Absolute Nucleated RBC 0.000 Nucleated RBC % (auto) 0.0 Smear Tech's Comments PT INR VBG pH VBG pCO2 VBG pO2 VBG HCO3 VBG O2 Saturation VBG Base Excess Sodium 143 Potassium 3.9 Chloride 105 Carbon Dioxide 25 Anion Gap 17 BUN 26 H Creatinine 1.99 H Estim Creat Clear Calc 49.8 Estimated GFR 38 POC Glucose Random Glucose 199 H Lactic Acid Lactic Acid Fup @ 2Hr 2.8 H* Lactic Acid Fup @ 4Hr Calcium 8.8 Total Bilirubin AST ALT Alkaline Phosphatase Total Protein Albumin Lipase Urine Color Urine Appearance Urine pH Ur Specific [place] Urine Protein Urine Glucose (UA) Urine Ketones Urine Blood Urine Nitrite Ur Leukocyte Esterase Urine RBC Urine WBC Ur Squamous Epith Cells Urine Bacteria Acetone, Qual COVID-19 ([facility]) COVID-19 POI 06/09/20 06/09/20 06/09/20 06:56 11:49 13:51 WBC RBC Hgb Hct MCV MCH MCHC RDW Plt Count MPV Immature Gran % (Auto) Neut % (Auto) Lymph % (Auto) [place] % (Auto) Eos % (Auto) Baso % (Auto) Lymph # (Auto) [place] # (Auto) Eos # (Auto) Baso # (Auto) Abs Immat Gran (auto) Absolute Neuts (auto) Absolute Nucleated RBC Nucleated RBC % (auto) Smear Tech's Comments PT INR VBG pH VBG pCO2 VBG pO2 VBG HCO3 VBG O2 Saturation VBG Base Excess Sodium Potassium Chloride Carbon Dioxide Anion Gap BUN Creatinine Estim Creat Clear Calc Estimated GFR POC Glucose 381 H* 340 H Random Glucose Lactic Acid Lactic Acid Fup @ 2Hr Lactic Acid Fup @ 4Hr 2.4 H* Calcium Total Bilirubin AST ALT Alkaline Phosphatase Total Protein Albumin Lipase Urine Color Urine Appearance Urine pH Ur Specific [place] Urine Protein Urine Glucose (UA) Urine Ketones Urine Blood Urine Nitrite Ur Leukocyte Esterase Urine RBC Urine WBC Ur Squamous Epith Cells Urine Bacteria Acetone, Qual COVID-19 ([facility]) COVID-19 Clin Com Assessment and Plan (1) Pancreatitis: Status: Resolved Assessment and Plan: hospital d#2 34yo M with DM1 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
[2020-06-09 16:31] LABS: Glucose, Whole Blood 239 mg/dL (60-115)
[2020-06-09] MEDS: Cholecalciferol (Vitamin D3) 25 MCG TABLET 50 MCG PO (16:36)
[2020-06-09] MEDS: Sucralfate 1 GM TABLET PO ×2 (16:36→20:08)
[2020-06-09] MEDS: Sertraline HCL 100 MG TABLET PO (16:37)
[2020-06-09] MEDS: amLODIPine Besylate 10 MG TABLET PO (16:37)
[2020-06-09] MEDS: Dicyclomine HCl 10 MG CAPSULE PO ×2 (16:37→20:07)
[2020-06-09] MEDS: Nortriptyline HCl 25 MG CAPSULE 50 MG PO (20:06)
[2020-06-09] MEDS: traZODone HCL 100 MG TABLET PO (20:08)
[2020-06-09] MEDS: Atorvastatin Calcium 80 MG TABLET PO (20:08)
[2020-06-09] MEDS: oxyCODONE HCl Immed Release 5 MG TABLET PO (20:08)
[2020-06-09 20:34] LABS: Glucose, Whole Blood 171 mg/dL (60-115)
[2020-06-09] MEDS: Calcium Carbonate 750 MG TAB.CHEW PO (21:02)
[2020-06-09] MEDS: 0.9 % Sodium Chloride Flush 3 ML SYRINGE IVFLUSH (21:03)
[2020-06-09] MEDS: Insulin Glargine,Hum.rec.anlog 100 UNIT/ML 10 ML VIAL 20 UNIT SUBCUT (21:03)
[2020-06-10] VITALS (14 sets, daily range): BP systolic 155–198; BP diastolic 86–108; PULSE 99–145; RESP 14–20; TEMP 35.9–37.1; O2SAT 97–99
[2020-06-10] MEDS: HYDROmorphone HCl 0.5 MG/0.5 ML SYRINGE 0.25 MG IVPUSH ×3 (00:44→20:15)
[2020-06-10] MEDS: 0.9 % Sodium Chloride 1,000 ML 100 ML IVCONT (01:18)
[2020-06-10] MEDS: Labetalol HCL 100 MG/20 ML VIAL 10 MG IVPUSH ×2 (01:22→04:06)
[2020-06-10] MEDS: oxyCODONE HCl Immed Release 5 MG TABLET PO ×2 (03:27→12:53)
[2020-06-10] MEDS: Famotidine/PF 20 MG/2 ML VIAL IVPUSH (04:05)
[2020-06-10] MEDS: Omeprazole 40 MG CAPSULE.DR PO (05:41)
[2020-06-10 07:09] LABS: VBG Base Excess -4.3 mmol/L; VBG HCO3 21 mmol/L (22-26); VBG pCO2 39 mmHg; VBG pH 7.33 (7.32-7.43); VBG pO2 51 mmHg
[2020-06-10 07:13] LABS: Venous Blood Gas Refer to POC result
[2020-06-10 07:49] LABS: Glucose, Whole Blood 509 mg/dL (60-115)
[2020-06-10 07:51] LABS: Anion Gap 22 (12-20); Blood Urea Nitrogen 30 mg/dL (9-16); Calcium 8.7 mg/dL (8.4-10.2); Carbon Dioxide 22 mmol/L (22-29); Chloride 91 mmol/L (96-108); Creatinine Clr Calc Pharmacy 49.3; Estimated Glomerular Filt Rate 38; Glucose Random 517 mg/dL (60-115); Magnesium 1.3 mg/dL (1.6-2.6); Phosphorus 4.4 mg/dL (2.7-4.5); Potassium 4.6 mmol/L (3.3-5.1); Sodium 130 mmol/L (135-145)
[2020-06-10] MEDS: Magnesium Sulfate/H2O 2 GM/50 ML PIGGYBACK IV (08:21)
[2020-06-10] MEDS: Insulin Regular, Human 100 UNIT/ML 3 ML VIAL 10 UNIT IVPUSH (08:21)
[2020-06-10 08:52] LABS: Lipase 40 U/L (8-78)
[2020-06-10 08:54] LABS: Acetone, serum QL Small (Negative)
[2020-06-10] MEDS: Sucralfate 1 GM TABLET PO ×2 (09:32→12:53)
[2020-06-10] MEDS: Metoprolol Succinate ER 50 MG TAB.ER.24H PO (09:32)
[2020-06-10] MEDS: amLODIPine Besylate 10 MG TABLET PO (09:32)
[2020-06-10] MEDS: Sertraline HCL 100 MG TABLET PO (09:33)
[2020-06-10] MEDS: Cholecalciferol (Vitamin D3) 25 MCG TABLET 50 MCG PO (09:33)
[2020-06-10] MEDS: Dicyclomine HCl 10 MG CAPSULE PO ×3 (09:33→20:47)
[2020-06-10] MEDS: 0.9 % Sodium Chloride 1,000 ML 999 ML IV (09:48)
[2020-06-10] MEDS: 0.9 % Sodium Chloride 1,000 ML 150 ML IVCONT ×3 (10:58→22:49)
[2020-06-10 11:01] LABS: Glucose, Whole Blood 447 mg/dL (60-115)
[2020-06-10 11:01] LABS: Glucose, Whole Blood 395 mg/dL (60-115)
[2020-06-10 11:01] LABS: Glucose, Whole Blood 478 mg/dL (60-115)
[2020-06-10 11:01] LABS: Glucose, Whole Blood 447 mg/dL (60-115)
[2020-06-10 11:20] LABS: Venous Blood Gas Refer to POC result
[2020-06-10 11:22] LABS: VBG Base Excess -5.5 mmol/L; VBG HCO3 19 mmol/L (22-26); VBG pCO2 35 mmHg; VBG pH 7.34 (7.32-7.43); VBG pO2 59 mmHg
[2020-06-10] MEDS: Insulin Lispro 100 UNIT/ML 3 ML VIAL SUBCUT ×3 (11:41→20:47)
[2020-06-10 11:45] LABS: Anion Gap 21 (12-20); Blood Urea Nitrogen 32 mg/dL (9-16); Calcium 8.1 mg/dL (8.4-10.2); Carbon Dioxide 19 mmol/L (22-29); Chloride 93 mmol/L (96-108); Creatinine Clr Calc Pharmacy 53.6; Estimated Glomerular Filt Rate 42; Glucose Random 502 mg/dL (60-115); Phosphorus 4.1 mg/dL (2.7-4.5); Potassium 4.5 mmol/L (3.3-5.1); Sodium 128 mmol/L (135-145)
[2020-06-10 12:13] LABS: Glucose, Whole Blood 484 mg/dL (60-115)
[2020-06-10] MEDS: Insulin Glargine,Hum.rec.anlog 100 UNIT/ML 10 ML VIAL 15 UNIT SUBCUT (13:13)
[2020-06-10 13:33] LABS: Glucose, Whole Blood 432 mg/dL (60-115)
[2020-06-10 14:29] LABS: Glucose, Whole Blood 378 mg/dL (60-115)
--- NOTE | 2020-06-10 14:46 | HO.PM.IMPN ---
Subjective Subjective Date of Service: 06/10/20 Interval History: c/o epigastric pain, nausea BGs high Physical Exam Vital Signs: Vital Signs: Last Vital Signs Temp 97.8 F 06/10/20 11:39 Pulse 116 H 06/10/20 11:39 Resp 19 06/10/20 11:39 BP 170/99 H 06/10/20 11:39 Pulse Ox 98 06/10/20 11:39 Body Mass Index 22.8 Gen: in no acute distress HEENT: sclera anicteric, moist mucus membranes Neck: supple Lungs: clear to auscultation bilaterally Heart: regular rate and rhythm, no murmurs Abd: soft, non-tender, non-distended Ext: no edema Skin: warm/well-perfused Neuro: alert and oriented x3, no focal findings Psych: appropriate affect Objective Data Current Medications Generic Name Dose Route Start Last Admin Trade Name Freq PRN Reason Stop Dose Admin Acetaminophen 650 mg 06/09/20 02:13 06/09/20 04:01 Acetaminophen 325 Mg Tablet PO 650 mg Q6H PRN Administration Pain, Mild (Pain Scale 1-3) Amlodipine Besylate 10 mg 06/09/20 14:12 06/10/20 09:32 Amlodipine Besylate 10 Mg Tablet PO 10 mg DAILY [facility] Administration Protocol Atorvastatin Calcium 80 mg 06/09/20 21:00 06/09/20 20:08 Atorvastatin Calcium 80 Mg Tablet PO 80 mg BEDTIME [facility] Administration Dicyclomine HCl 10 mg 06/09/20 14:12 06/10/20 09:33 Dicyclomine Hcl 10 Mg Capsule PO 10 mg TID [facility] Administration Docusate Sodium 100 mg 06/09/20 02:13 Docusate Sodium 100 Mg Capsule PO DAILY PRN Constipation Hydromorphone HCl 0.25 mg 06/09/20 08:06 06/10/20 00:44 Hydromorphone Hcl 0.5 Mg/0.5 Ml Syringe IVPUSH 0.25 mg Q4H PRN Administration pain,severe Sodium Chloride 1,000 mls @ 150 mls/hr 06/09/20 02:15 06/10/20 10:58 Ns IVCONT 150 mls/hr .Q6H40M [facility] Administration Insulin Glargine 25 unit 06/10/20 21:00 Insulin Glargine,Hum.Rec.Anlog 100 Unit/Ml 10 Ml Vial SUBCUT BEDTIME [facility] Insulin Human Lispro 0 unit 06/09/20 07:30 06/10/20 11:41 Insulin Lispro 100 Unit/Ml 3 Ml Vial SUBCUT 15 unit QIDACHS [facility] Administration Protocol Labetalol HCl 10 mg 06/09/20 02:19 06/10/20 04:06 Labetalol Hcl 100 Mg/20 Ml Vial IVPUSH 10 mg Q4H PRN Administration BP>180/90 Metoclopramide HCl 10 mg 06/09/20 14:12 Metoclopramide Hcl 10 Mg Tablet PO Q6H PRN nausea and vomiting Metoprolol Succinate 50 mg 06/10/20 09:00 06/10/20 09:32 Metoprolol Succinate Er 50 Mg Tab.Er.24h PO 50 mg DAILY [facility] Administration Protocol Nortriptyline HCl 50 mg 06/09/20 21:00 06/09/20 20:06 Nortriptyline Hcl 25 Mg Capsule PO 50 mg BEDTIME [facility] Administration Omeprazole 40 mg 06/10/20 06:30 06/10/20 05:41 Omeprazole 40 Mg Capsule.Dr PO 40 mg DAILY@0630 [facility] Administration Oxycodone HCl 5 mg 06/09/20 14:12 06/10/20 12:53 Oxycodone Hcl Immed Release 5 Mg Tablet PO 5 mg Q8H PRN Administration Pain, Mild (Pain Scale 1-3) Senna 17.2 mg 06/09/20 02:13 Sennosides 8.6 Mg Tablet PO BEDTIME PRN Constipation Sertraline HCl 100 mg 06/09/20 14:12 06/10/20 09:33 Sertraline Hcl 100 Mg Tablet PO 100 mg DAILY [facility] Administration Sodium Chloride 3 ml 06/09/20 08:00 06/10/20 08:23 0.9 % Sodium Chloride Flush 3 Ml Syringe IVFLUSH Not Given QSHIFT [facility] Sucralfate 1 gm 06/09/20 14:12 06/10/20 12:53 Sucralfate 1 Gm Tablet PO 1 gm QID [facility] Administration Trazodone HCl 100 mg 06/09/20 21:00 06/09/20 20:08 Trazodone Hcl 100 Mg Tablet PO 100 mg BEDTIME [facility] Administration Vitamin D 50 mcg 06/09/20 14:12 06/10/20 09:33 Cholecalciferol (Vitamin D3) 25 Mcg Tablet PO 50 mcg DAILY [facility] Administration Labs CBC & Chem 7: 06/09/20 06:56 06/10/20 11:09 Labs: Laboratory Results - last 24 hr 06/09/20 06/09/20 06/10/20 16:27 20:20 06:56 VBG pH VBG pCO2 VBG pO2 VBG HCO3 VBG O2 Saturation VBG Base Excess Sodium 130 L Potassium 4.6 Chloride 91 L Carbon Dioxide 22 Anion Gap 22 H BUN 30 H Creatinine 2.01 H Estim Creat Clear Calc 49.3 Estimated GFR 38 POC Glucose 239 H 171 H Random Glucose 517 H* Calcium 8.7 Phosphorus 4.4 Magnesium 1.3 L* Lipase 40 Acetone, Qual Small H 06/10/20 06/10/20 06/10/20 07:02 07:31 08:38 VBG pH 7.33 VBG pCO2 39 VBG pO2 51 VBG HCO3 21 L VBG O2 Saturation 80.0 VBG Base Excess -4.3 Sodium Potassium Chloride Carbon Dioxide Anion Gap BUN Creatinine Estim Creat Clear Calc Estimated GFR POC Glucose 509 H* 478 H* Random Glucose Calcium Phosphorus Magnesium Lipase Acetone, Qual 06/10/20 06/10/20 06/10/20 09:04 09:55 10:56 VBG pH VBG pCO2 VBG pO2 VBG HCO3 VBG O2 Saturation VBG Base Excess Sodium Potassium Chloride Carbon Dioxide Anion Gap BUN Creatinine Estim Creat Clear Calc Estimated GFR POC Glucose 447 H* 447 H* 395 H* Random Glucose Calcium Phosphorus Magnesium Lipase Acetone, Qual 06/10/20 06/10/20 06/10/20 11:09 11:12 12:09 VBG pH 7.34 VBG pCO2 35 VBG pO2 59 VBG HCO3 19 L VBG O2 Saturation 87.0 VBG Base Excess -5.5 Sodium 128 L Potassium 4.5 Chloride 93 L Carbon Dioxide 19 L Anion Gap 21 H BUN 32 H Creatinine 1.85 H Estim Creat Clear Calc 53.6 Estimated GFR 42 POC Glucose 484 H* Random Glucose 502 H* Calcium 8.1 L D Phosphorus 4.1 Magnesium 2.0 Lipase Acetone, Qual 06/10/20 06/10/20 13:29 14:23 VBG pH VBG pCO2 VBG pO2 VBG HCO3 VBG O2 Saturation VBG Base Excess Sodium Potassium Chloride Carbon Dioxide Anion Gap BUN Creatinine Estim Creat Clear Calc Estimated GFR POC Glucose 432 H* 378 H* Random Glucose Calcium Phosphorus Magnesium Lipase Acetone, Qual Assessment and Plan (1) Pancreatitis: Status: Resolved Assessment and Plan: hospital d#3 34yo M with DM1 with neuropathy on insulin pump, blindness, HTN, CKD3, recent pancreatitis presenting with abdominal pain/N/V admitted for hyperglycemia with KAYODE, lactic acidosis, HTN urgency # hyperglycemia in DM1 # ketosis [though pH normal - not DKA] - gave 10 units IV insulin this am, will give extra dose Lantus 15 units now, increase correction-dose Humalog, increase Lantus tonight from 20 to 25 units; pt cannot manage pump in hospital as he is blind [at home, his manages his pump] - continue aggressive fluid resuscitation # abd pain - NPO, check US. recent hx pancreatitis though now lipase normal. had normal GES. continue PPI + sucralfate # KAYODE/CKD3, baseline SCr around 1.3 - improving SCr 2.8->2 after holding losartan and giving IV fluids- continue # contraction alkalosis/lactic acidosis - replete volume as above # hypoMg - repleted # HTN urgency - continue amlodipine; start metoprolol succinate; prn labetalol # dyslipidemia - continue statin # mood disorder - continue sertraline, nortriptyline, trazodone # VTE ppx - SCDs
[2020-06-10 15:16] LABS: Glucose, Whole Blood 357 mg/dL (60-115)
[2020-06-10] MEDS: Metoclopramide HCl 10 MG TABLET PO (15:45)
[2020-06-10 16:14] LABS: Glucose, Whole Blood 321 mg/dL (60-115)
[2020-06-10 17:17] LABS: Glucose, Whole Blood 318 mg/dL (60-115)
[2020-06-10 17:27] LABS: Anion Gap 16 (12-20); Blood Urea Nitrogen 32 mg/dL (9-16); Calcium 8.2 mg/dL (8.4-10.2); Carbon Dioxide 22 mmol/L (22-29); Chloride 97 mmol/L (96-108); Creatinine Clr Calc Pharmacy 52.2; Estimated Glomerular Filt Rate 41; Glucose Random 351 mg/dL (60-115); Magnesium 1.9 mg/dL (1.6-2.6); Potassium 3.9 mmol/L (3.3-5.1); Sodium 131 mmol/L (135-145)
--- NOTE | 2020-06-10 18:24 | PC.NURSE ---
Patients morning POC was 509. Dr. Painter made aware. Subq Insulin held. IVP 10units Humulin given. Patient started on q1 POC checks. Patients blood glucose fluctuated between the high 400-low 300 range. MD ordered one time 15units Lantus. Last blood glucose 318. Dr. Painter made aware. Patient on QIDACHS POC now. Sliding scale changed per MD. Bedtime Lantus increased to 25 units. Patient in bed resting now. Will make oncoming nurse aware.
[2020-06-10 20:42] LABS: Glucose, Whole Blood 159 mg/dL (60-115)
[2020-06-10] MEDS: traZODone HCL 100 MG TABLET PO (20:47)
[2020-06-10] MEDS: Nortriptyline HCl 25 MG CAPSULE 50 MG PO (20:47)
[2020-06-10] MEDS: Atorvastatin Calcium 80 MG TABLET PO (20:47)
[2020-06-10] MEDS: Insulin Glargine,Hum.rec.anlog 100 UNIT/ML 10 ML VIAL 25 UNIT SUBCUT (20:48)
[2020-06-10 23:13] LABS: Anion Gap 12 (12-20); Blood Urea Nitrogen 29 mg/dL (9-16); Calcium 8.3 mg/dL (8.4-10.2); Carbon Dioxide 25 mmol/L (22-29); Chloride 103 mmol/L (96-108); Creatinine Clr Calc Pharmacy 57.6; Estimated Glomerular Filt Rate 45; Glucose Random 132 mg/dL (60-115); Magnesium 1.8 mg/dL (1.6-2.6); Potassium 3.8 mmol/L (3.3-5.1); Sodium 136 mmol/L (135-145)
[2020-06-11] VITALS (8 sets, daily range): BP systolic 132–185; BP diastolic 90–100; PULSE 99–110; RESP 14–18; TEMP 36.6–37.3; O2SAT 96–97
[2020-06-11] MEDS: HYDROmorphone HCl 0.5 MG/0.5 ML SYRINGE 0.25 MG IVPUSH ×4 (00:11→13:09)
[2020-06-11] MEDS: oxyCODONE HCl Immed Release 5 MG TABLET PO ×2 (03:17→15:41)
[2020-06-11] MEDS: Omeprazole 40 MG CAPSULE.DR PO (05:34)
[2020-06-11] MEDS: Labetalol HCL 100 MG/20 ML VIAL 10 MG IVPUSH (05:34)
[2020-06-11] MEDS: 0.9 % Sodium Chloride 1,000 ML 150 ML IVCONT ×2 (05:36→12:10)
[2020-06-11 07:35] LABS: Glucose, Whole Blood 130 mg/dL (60-115)
[2020-06-11 07:47] LABS: Acetone, serum QL Negative (Negative)
[2020-06-11] MEDS: amLODIPine Besylate 10 MG TABLET PO (07:53)
[2020-06-11] MEDS: Dicyclomine HCl 10 MG CAPSULE PO ×2 (07:53→15:41)
[2020-06-11] MEDS: Metoprolol Succinate ER 50 MG TAB.ER.24H PO (07:54)
[2020-06-11] MEDS: Sertraline HCL 100 MG TABLET PO (07:54)
[2020-06-11] MEDS: Insulin Lispro 100 UNIT/ML 3 ML VIAL SUBCUT ×3 (07:54→16:44)
[2020-06-11] MEDS: Cholecalciferol (Vitamin D3) 25 MCG TABLET 50 MCG PO (07:54)
[2020-06-11 07:55] LABS: Anion Gap 17 (12-20); Blood Urea Nitrogen 25 mg/dL (9-16); Calcium 7.8 mg/dL (8.4-10.2); Carbon Dioxide 20 mmol/L (22-29); Chloride 102 mmol/L (96-108); Creatinine Clr Calc Pharmacy 63.1; Estimated Glomerular Filt Rate 51; Glucose Random 111 mg/dL (60-115); Magnesium 1.6 mg/dL (1.6-2.6); Potassium 3.3 mmol/L (3.3-5.1); Sodium 136 mmol/L (135-145)
[2020-06-11 08:10] LABS: Phosphorus 2.4 mg/dL (2.7-4.5)
[2020-06-11 11:33] LABS: Glucose, Whole Blood 130 mg/dL (60-115)
[2020-06-11] MEDS: Acetaminophen 325 MG TABLET 650 MG PO (11:35)
--- NOTE | 2020-06-11 13:03 | HO.PM.IMPN ---
Subjective Subjective Date of Service: 06/11/20 Interval History: seen and examined this AM reports left-sided abdominal pain denies n/v ROS General - no fevers or chills Cardiovascular - no chest pain Respiratory - no shortness of breath or cough Abdominal- +abd pain Physical Exam Vital Signs: Vital Signs: Last Vital Signs Temp 99.1 F 06/11/20 11:20 Pulse 102 H 06/11/20 11:20 Resp 16 06/11/20 11:20 BP 170/97 H 06/11/20 11:20 Pulse Ox 96 06/11/20 11:20 Body Mass Index 22.8 Const: Other: General - no acute distress, appears comfortable Cardiovascular - regular rate and rhythm, S1-S2 Lungs - normal respiratory effort, clear to auscultation bilaterally, no wheezing Abdomen - left sided abdominal pain without guarding Extremities - no edema bilaterally Neuro - awake and alert, no focal deficits Objective Data Current Medications Generic Name Dose Route Start Last Admin Trade Name Freq PRN Reason Stop Dose Admin Acetaminophen 650 mg 06/09/20 02:13 06/11/20 11:35 Acetaminophen 325 Mg Tablet PO 650 mg Q6H PRN Administration Pain, Mild (Pain Scale 1-3) Amlodipine Besylate 10 mg 06/09/20 14:12 06/11/20 07:53 Amlodipine Besylate 10 Mg Tablet PO 10 mg DAILY [facility] Administration Protocol Atorvastatin Calcium 80 mg 06/09/20 21:00 06/10/20 20:47 Atorvastatin Calcium 80 Mg Tablet PO 80 mg BEDTIME [facility] Administration Dicyclomine HCl 10 mg 06/09/20 14:12 06/11/20 07:53 Dicyclomine Hcl 10 Mg Capsule PO 10 mg TID [facility] Administration Docusate Sodium 100 mg 06/09/20 02:13 Docusate Sodium 100 Mg Capsule PO DAILY PRN Constipation Hydromorphone HCl 0.25 mg 06/09/20 08:06 06/11/20 08:43 Hydromorphone Hcl 0.5 Mg/0.5 Ml Syringe IVPUSH 0.25 mg Q4H PRN Administration pain,severe Insulin Glargine 25 unit 06/10/20 21:00 06/10/20 20:48 Insulin Glargine,Hum.Rec.Anlog 100 Unit/Ml 10 Ml Vial SUBCUT 25 unit BEDTIME [facility] Administration Insulin Human Lispro 0 unit 06/09/20 07:30 06/11/20 11:35 Insulin Lispro 100 Unit/Ml 3 Ml Vial SUBCUT 2 unit QIDACHS [facility] Administration Protocol Labetalol HCl 10 mg 06/09/20 02:19 06/11/20 05:34 Labetalol Hcl 100 Mg/20 Ml Vial IVPUSH 10 mg Q4H PRN Administration BP>180/90 Metoclopramide HCl 10 mg 06/09/20 14:12 06/10/20 15:45 Metoclopramide Hcl 10 Mg Tablet PO 10 mg Q6H PRN Administration nausea and vomiting Metoprolol Succinate 50 mg 06/10/20 09:00 06/11/20 07:54 Metoprolol Succinate Er 50 Mg Tab.Er.24h PO 50 mg DAILY [facility] Administration Protocol Nortriptyline HCl 50 mg 06/09/20 21:00 06/10/20 20:47 Nortriptyline Hcl 25 Mg Capsule PO 50 mg BEDTIME [facility] Administration Omeprazole 40 mg 06/10/20 06:30 06/11/20 05:34 Omeprazole 40 Mg Capsule.Dr PO 40 mg DAILY@0630 [facility] Administration Oxycodone HCl 5 mg 06/09/20 14:12 06/11/20 03:17 Oxycodone Hcl Immed Release 5 Mg Tablet PO 5 mg Q8H PRN Administration Pain, Mild (Pain Scale 1-3) Senna 17.2 mg 06/09/20 02:13 Sennosides 8.6 Mg Tablet PO BEDTIME PRN Constipation Sertraline HCl 100 mg 06/09/20 14:12 06/11/20 07:54 Sertraline Hcl 100 Mg Tablet PO 100 mg DAILY [facility] Administration Sodium Chloride 3 ml 06/09/20 08:00 06/11/20 07:54 0.9 % Sodium Chloride Flush 3 Ml Syringe IVFLUSH Not Given QSHIFT [facility] Sucralfate 1 gm 06/09/20 14:12 06/11/20 07:55 Sucralfate 1 Gm Tablet PO Not Given QID [facility] Trazodone HCl 100 mg 06/09/20 21:00 06/10/20 20:47 Trazodone Hcl 100 Mg Tablet PO 100 mg BEDTIME [facility] Administration Vitamin D 50 mcg 06/09/20 14:12 06/11/20 07:54 Cholecalciferol (Vitamin D3) 25 Mcg Tablet PO 50 mcg DAILY [facility] Administration Labs CBC & Chem 7: 06/09/20 06:56 06/11/20 06:45 Assessment and Plan (1) Hyperglycemia due to type 1 diabetes mellitus: Status: Acute Assessment and Plan: 34yo M with DM1 with neuropathy on insulin pump, blindness, HTN, CKD3, recent pancreatitis presenting with abdominal pain/N/V admitted for hyperglycemia with KAYODE, lactic acidosis, HTN urgency 1. Abdominal pain ? related to his DM ultrasound done, results pending start solids PPI + carafate 2. Hyperglycemia due to uncontrolled DM improved continue with basal + bolus; insulin pump upon d/c taper IVF 3. KAYODE/CKD3, baseline SCr around 1.3 SCr slowly improving taper IVF 4. contraction alkalosis/lactic acidosis - replete volume as above 5. hypoMg - repleted 6. TN urgency BP remains uncontrolled continue novrasv and metorpolol, losartan on hold due to KAYODE 7. dyslipidemia - continue statin 8. mood disorder - continue sertraline, nortriptyline, trazodone Full Code DVT pptx, Mechanical dispo: home once tolerating diet (if nothing abnormal on ultrasound)
[2020-06-11] MEDS: 0.9 % Sodium Chloride Flush 3 ML SYRINGE IVFLUSH (15:42)
--- NOTE | 2020-06-11 15:49 | PM.DS ---
DS: Providers Provider Date of Service: 06/11/20 Date of admission: 06/09/20 02:13 Primary care physician: Unknown Physician DS: Diagnosis Discharge Diagnosis (1) Hyperglycemia due to type 1 diabetes mellitus: Status: Acute (2) Acute kidney injury superimposed on CKD: Status: Acute (3) Hypertensive urgency: Status: Acute (4) Abdominal pain: Status: Acute DS: Medications Discharge Medications Home Medications: Home Medications Medication Instructions Recorded Confirmed gabapentin 600 mg tablet 600 mg PO TID 01/04/20 06/09/20 nortriptyline 50 mg capsule 50 mg PO BEDTIME 01/04/20 06/09/20 omeprazole 40 mg capsule,delayed 40 mg PO DAILY@0630 01/04/20 06/09/20 release tramadol 50 mg tablet 50 mg PO DAILY PRN 01/04/20 06/09/20 citalopram 20 mg tablet 20 mg PO DAILY 03/28/20 06/09/20 sertraline 100 mg tablet 100 mg PO DAILY 03/28/20 06/09/20 trazodone 100 mg tablet 100 mg PO BEDTIME 05/31/20 06/09/20 Previous Rx's Medication Instructions Recorded atorvastatin 80 mg tablet 80 mg PO DAILY #30 tab 01/04/20 sucralfate 1 gram tablet 1 g PO QID 30 Days #120 tab 02/08/20 amlodipine 10 mg PO DAILY 30 Days #30 tab 03/27/20 glucose 4 gram chewable tablet 4 g PO Q15M PRN 30 Days #60 tab 03/28/20 metoclopramide HCl [Reglan] 10 mg PO Q6H PRN #20 tab 03/30/20 cholecalciferol (vitamin D3) 50 50 mcg PO DAILY 30 Days #30 cap 04/05/20 mcg (2,000 unit) capsule ezetimibe 10 mg tablet 10 mg PO DAILY 90 Days #90 tab 04/05/20 Lantus U-100 Insulin 20 unit SUBCUT DAILY 30 Days #6 ml 04/14/20 metoclopramide HCl [Reglan] 5 mg PO DAILY PRN #7 tab 04/14/20 oxycodone 5 mg PO Q8H PRN #9 tab 04/14/20 insulin pump cartridge 1 ea SUBCUT .COMPLEX 30 Days #45 ea 04/23/20 insulin lispro 100 unit/mL See Rx Instructions SUBCUT 05/11/20 subcutaneous solution .COMPLEX 30 Days #30 ml dicyclomine 10 mg capsule 10 mg PO TID #30 cap 05/29/20 metoprolol succinate 50 mg PO DAILY 30 Days #30 tab 06/11/20 DS: Summary Hospital Course Hospital Course: Patient presented with multiple issues including hyperglycemia, acute kidney injury on chronic kidney disease, hypertensive urgency, lactic acidosis. Although the patient's pH and ketones were negative, his anion gap was elevated and he was significantly hyperglycemic. As such initially he was treated with several doses of IV insulin and aggressive fluid resuscitation. He quickly improved in regards to his anion gap. He still complained of abdominal pain and underwent a abdominal ultrasound which did not show any acute findings. He did have his diet advanced from clears to solids which he tolerated. In regards to his acute kidney injury, this resolved with IV fluids. However due to his blood pressure being elevated and his losartan being discontinued in light of Terry, he was started on metoprolol which he will be discharged on. His losartan will be held, though ideally as his renal function normalized as this may be restarted but will be deferred to the outpatient setting. Time Spent with Patient Time attestation: Total time spent providing and/or coordinating discharge services: Discharge coordination time: Greater than 30 minutes Physical Exam Vital Signs: Vital Signs: Last Vital Signs Temp 99.1 F 06/11/20 11:20 Pulse 99 06/11/20 14:56 Resp 16 06/11/20 11:20 BP 132/93 H 06/11/20 14:56 Pulse Ox 96 06/11/20 14:56 Body Mass Index 22.8 Const: Other: General - no acute distress, appears comfortable Cardiovascular - regular rate and rhythm, S1-S2 Lungs - normal respiratory effort, clear to auscultation bilaterally, no wheezing Abdomen - soft, nontender, no rebound or guarding Extremities - no edema bilaterally Neuro - awake and alert, no focal deficits DS: Data Data Completed and Pending Labs on day of discharge: Laboratory Results - last 24 hr 06/10/20 06/10/20 06/10/20 16:02 16:44 17:13 Sodium 131 L Potassium 3.9 Chloride 97 Carbon Dioxide 22 Anion Gap 16 BUN 32 H Creatinine 1.90 H Estim Creat Clear Calc 52.2 Estimated GFR 41 POC Glucose 321 H 318 H Random Glucose 351 H* Calcium 8.2 L Phosphorus Magnesium 1.9 Acetone, Qual 06/10/20 06/10/20 06/11/20 20:36 22:40 06:45 Sodium 136 Potassium 3.8 Chloride 103 Carbon Dioxide 25 Anion Gap 12 BUN 29 H Creatinine 1.72 H Estim Creat Clear Calc 57.6 Estimated GFR 45 POC Glucose 159 H Random Glucose 132 H D Calcium 8.3 L Phosphorus 2.4 L Magnesium 1.8 1.6 Acetone, Qual 06/11/20 06/11/20 06/11/20 06:45 07:12 11:18 Sodium 136 Potassium 3.3 Chloride 102 Carbon Dioxide 20 L Anion Gap 17 BUN 25 H Creatinine 1.57 H Estim Creat Clear Calc 63.1 Estimated GFR 51 POC Glucose 130 H 130 H Random Glucose 111 Calcium 7.8 L D Phosphorus Magnesium Acetone, Qual Negative Discharge Plan Discharge Patient Disposition: Home, Self-Care Discharge Diagnosis: Hyperglycemia Referrals: Physician,Unknown [Primary Care Provider] - 1 Week Discharge Medications: New metoprolol succinate 50 mg Tablet Extended Release 24 Hr 50 mg PO DAILY 30 Days Qty: 30 RF: 0 Continued sucralfate 1 gram tablet 1 g PO QID 30 Days Qty: 120 RF: 3 cholecalciferol (vitamin D3) 50 mcg (2,000 unit) capsule 50 mcg PO DAILY 30 Days Qty: 30 RF: 6 ezetimibe [Zetia] 10 mg tablet 10 mg PO DAILY 90 Days Qty: 90 RF: 2 insulin pump cartridge [Omnipod Dash 5 Pack Pod] Cartridge 1 ea subcut .COMPLEX 30 Days Qty: 45 RF: 3 insulin lispro [Humalog U-100 Insulin] 100 unit/mL solution See Rx Instructions subcut .COMPLEX 30 Days Qty: 30 RF: 3 metoclopramide HCl [Reglan] 10 mg tablet 10 mg PO Q6H PRN (Reason: nausea and vomiting) Qty: 20 RF: 0 trazodone 100 mg tablet 100 mg PO BEDTIME RF: 0 amlodipine 10 mg Tablet 10 mg PO DAILY 30 Days Qty: 30 RF: 0 oxycodone 5 mg Tablet 5 mg PO Q8H PRN (Reason: Pain, Mild (Pain Scale 1-3)) Qty: 9 RF: 0 Lantus U-100 Insulin 100 unit/mL Solution 20 unit subcut DAILY 30 Days Qty: 6 RF: 0 metoclopramide HCl [Reglan] 5 mg tablet 5 mg PO DAILY PRN (Reason: nausea and vomiting) Qty: 7 RF: 0 omeprazole 40 mg capsule,delayed release(DR/EC) 40 mg PO DAILY@0630 RF: 0 nortriptyline 50 mg capsule 50 mg PO BEDTIME RF: 0 gabapentin 600 mg tablet 600 mg PO TID RF: 0 tramadol 50 mg tablet 50 mg PO DAILY PRN (Reason: Pain) RF: 0 atorvastatin 80 mg tablet 80 mg PO DAILY Qty: 30 RF: 6 citalopram 20 mg tablet 20 mg PO DAILY RF: 0 sertraline 100 mg tablet 100 mg PO DAILY RF: 0 glucose [Dex4 Glucose] 4 gram tablet,chewable 4 g PO Q15M PRN (Reason: hypoglycemia) 30 Days Qty: 60 RF: 5 dicyclomine 10 mg capsule 10 mg PO TID Qty: 30 RF: 2 Discontinued losartan 50 mg tablet 50 mg PO DAILY RF: 0 Discharge Orders: Discharge Order (Routine); Ordered 06/11/20 Ordered By: Patel Carlson Diet: advance to usual diet Activity on Discharge: As tolerated Stand Alone Forms: Patient Portal Discharge page Care Plan Goals: To stay healthy and out of the hospital. Health Concerns: TERRY Abdominal Pain Uncontrolled sugars and blood pressure Plan of Treatment: Do not take Losartan, instead take Metoprolol Take your insulin pump Follow up with your primary doctor Assessment: 34 yo M admitted for hyperglycemia, TERRY, Uncontrolled HTN. Improved with treatment. Losartan discontinued due to TERRY, started on Metoprolol Doing better and will be discharged home.
--- NOTE | 2020-06-11 16:13 | MHC.CM.PN ---
PT DISCHARGING TODAY HOME SELF-CARE, PT ARRANGING HIS OWN TRANSPORT
[2020-06-11 16:27] LABS: Glucose, Whole Blood 146 mg/dL (60-115)
== END 2020-06-11 17:50 | disposition home or self-care (01) | DRG 420 ==
LOC: HO.ED 06-09 02:13 → HO.EDOVER 06-09 02:27 → HO.S3 06-09 14:12
PROVIDERS: Family Medicine; Admitting Provider Hospitalist; Emergency Provider Internal Medicine; Visit Provider Family Medicine
DX: E10.65 Type 1 diabetes mellitus with hyperglycemia (principal); N17.9 Acute kidney failure, unspecified; E10.22 Type 1 diabetes mellitus with diabetic chronic kidney disease; N18.32 Chronic kidney disease, stage 3b; E83.42 Hypomagnesemia; F17.210 Nicotine dependence, cigarettes, uncomplicated; H54.8 Legal blindness, as defined in USA; K21.9 Gastro-esophageal reflux disease without esophagitis; I16.0 Hypertensive urgency; R10.9 Unspecified abdominal pain; I12.9 Hypertensive chronic kidney disease with stage 1 through stage 4 chronic kidney disease, or unspecified chronic kidney disease; E78.5 Hyperlipidemia, unspecified; Z20.822 Contact with and (suspected) exposure to COVID-19; Z96.41 Presence of insulin pump (external) (internal); Z71.6 Tobacco abuse counseling; Z79.899 Other long term (current) drug therapy
CPT/HCPCS: 36415; 71045; 76700; 80048; 80053; 81001; 82009; 82947; 83605; 83690; 83735; 84100; 85025; 85610; 87635; 93005; 96372; 96374; 96375; 99285; 99291; J1170; J2270; J2405; J3475

== ENCOUNTER 2020-06-28 12:11 | Outpatient (REF) | payer MEDICAID, SELFPAY ==
--- NOTE | ~2020-06-28 | MR_ITS ---
EXAMINATION: MR ABDOMEN WITHOUT AND WITH CONTRAST CLINICAL INFORMATION: Acute pancreatitis without necrosis or infection COMPARISON: Previous abdominal ultrasound May 2020 and abdominal and pelvic CT March 2020 TECHNIQUE: MR abdomen was performed without and with use of 7 mL intravenous Gadavist gadolinium contrast. Postcontrast images are performed in multiphase dynamic sequences. Imaging was performed in 3 planes. MRCP sequences were also performed. FINDINGS: LUNG BASES: The visualized lung bases are unremarkable. LIVER, GALLBLADDER, AND BILIARY TREE: The liver is normal in size, smooth in contour, and normal in signal. No focal hepatic lesion or biliary ductal dilatation is present. The common bile duct measures 3 mm. The gallbladder is unremarkable with no evidence of gallbladder wall thickening, or obvious pericholecystic inflammatory changes. No filling defect is seen in the common bile duct. PANCREAS: The pancreas is normal in size, shape and signal. No focal lesion or abnormal enhancement is seen. The main pancreatic duct is normal. The previously identified inflammatory changes March 2020 exam are no longer seen. SPLEEN: Normal. ADRENAL GLANDS: Normal. KIDNEYS AND URETERS: The kidneys are normal in size, shape, and enhance symmetrically. No hydronephrosis. No perinephric stranding. GASTROINTESTINAL TRACT: No bowel obstruction. No ascites or fluid collection. ABDOMINAL WALL: No significant hernia is appreciated. LYMPH NODES: There are small retroperitoneal lymph nodes. No enlarged lymph nodes are seen. VASCULAR: Unremarkable. OSSEOUS STRUCTURES: Marrow signal normal. MR/MR abdomen wo/w con IMPRESSION: Unremarkable MR and MRCP of the abdomen.
[2020-06-28 12:38] LABS: Anion Gap 12 (12-20); Blood Urea Nitrogen 19 mg/dL (9-16); Calcium 9.3 mg/dL (8.4-10.2); Carbon Dioxide 30 mmol/L (22-29); Chloride 104 mmol/L (96-108); Estimated Glomerular Filt Rate 29; Glucose Random 103 mg/dL (60-115); Potassium 4.4 mmol/L (3.3-5.1); Sodium 142 mmol/L (135-145)
== END 2020-06-28 12:12 | disposition home or self-care (01) ==
LOC: HO.MRI 12:11
PROVIDERS: Visit Provider Internal Medicine Gastroenterology
DX: K85.90 Acute pancreatitis without necrosis or infection, unspecified (principal)
CPT/HCPCS: 36415; 74183; 80048; A9585

== ENCOUNTER → 2020-08-21 10:07 | Outpatient (BNVA) | payer MEDICAID, SELFPAY | PROVIDERS: PCP Internal Medicine Geriatric Medicine; Visit Provider Internal Medicine Gastroenterology ==

== ENCOUNTER → 2020-09-05 14:20 | Outpatient (BNVA) | payer MEDICAID, SELFPAY | PROVIDERS: PCP Internal Medicine Geriatric Medicine; Visit Provider Internal Medicine Endocrinology, Diabetes & Metabolism | DX: E10.65 Type 1 diabetes mellitus with hyperglycemia (principal); E10.42 Type 1 diabetes mellitus with diabetic polyneuropathy; E10.21 Type 1 diabetes mellitus with diabetic nephropathy; E11.3299 Type 2 diabetes mellitus with mild nonproliferative diabetic retinopathy without macular edema, unspecified eye; E83.51 Hypocalcemia; E78.5 Hyperlipidemia, unspecified | CPT/HCPCS: 82947; 99212 ==

== ENCOUNTER 2020-09-21 14:59 | Emergency (ER) | payer MEDICAID, SELFPAY ==
[2020-09-21 15:32] VITALS: BP 176/111; PULSE 96; RESP 16; TEMP 36.6; O2SAT 99; BMI 24.3
[2020-09-21 16:27] LABS: MANUAL DIFF FLAG NO
[2020-09-21 16:30] LABS: Basophils Absolute Auto 0.1 X10*3/uL (0.0-0.2); Basophils Percent Auto 0.4 % (0-2); Eosinophils Absolute Auto 0.2 X10*3/uL (0.0-0.4); Eosinophils Percent Auto 1.8 % (0-4); Hemoglobin 15.2 g/dl (14.0-18.0); Imm Gran Abs Auto 0.02 X10*3/uL (0.00-0.03); Imm Gran Pct Auto 0.2 % (0.0-0.4); Lymphocytes Absolute Auto 2.8 X10*3/uL (1.2-4.9); Lymphocytes Percent Auto 25.3 % (20-40); Mean Corpuscular HGB Conc 33.8 g/dl (31.0-36.0); Mean Corpuscular Hemoglobin 29.7 pg (27.0-33.0); Mean Corpuscular Volume 87.9 fL (80-98); Monocytes Absolute Auto 0.9 X10*3/uL (0.1-1.2); Neutrophils Absolute Auto 7.2 X10*3/uL (2.0-8.3); Neutrophils Percent Auto 64.3 % (45-73); Platelet Count 267 X10*3/uL (160-400); Red Blood Count 5.12 X10*6/uL (4.60-5.80); White Blood Count 11.1 X10*3/uL (4.8-10.8)
[2020-09-21 16:55] VITALS: BP 189/114; PULSE 87; RESP 18; O2SAT 100
[2020-09-21 16:57] LABS: Alanine Aminotransferase 10 U/L (0-40); Albumin Level 3.9 g/dL (3.5-5.0); Alkaline Phosphatase 104 U/L (39-117); Anion Gap 14 (12-20); Aspartate Amino Transferase 14 U/L (5-37); Bilirubin Total 0.6 mg/dL (0.0-1.0); Blood Urea Nitrogen 24 mg/dL (9-16); Calcium 10.2 mg/dL (8.4-10.2); Carbon Dioxide 26 mmol/L (22-29); Chloride 106 mmol/L (96-108); Creatinine Clr Calc Pharmacy 40.8; Estimated Glomerular Filt Rate 30; Glucose Random 168 mg/dL (60-115); Potassium 4.4 mmol/L (3.3-5.1); Sodium 142 mmol/L (135-145)
[2020-09-21 17:36] VITALS: BP 189/114; PULSE 87
[2020-09-21] MEDS: Metoprolol Succinate ER 50 MG TAB.ER.24H PO (17:36)
--- NOTE | 2020-09-21 17:41 | ED.HEATRA ---
HPI - Head Injury General Chief complaint: Head Injury Stated complaint: head pain Time Seen by Provider: 09/21/20 16:56 Source: patient Mode of arrival: ambulatory Limitations: other (Legally blind) History of Present Illness HPI Narrative: 34-year-old male With a past medical history of being legally blind, type 1 diabetes on insulin pump with chronic kidney disease stage 3, hypertension, hyperlipidemia, GERD and depression presenting to the ED with request for medication refill of his 50 mg of metoprolol that he ran out of yesterday. He also reports that this morning due to him being legally blind he bumped into the cabin at home and sustain a laceration to his left upper eyebrow/eyelid. He denies loss of consciousness. Reports he is on a baby aspirin otherwise no other blood thinners. He denies any symptoms prior to hitting his head in any symptoms at this time. He reports that he just needs his medication refilled. He denies any dizziness at this time, headaches, nausea/vomiting, palpitations, chest pain, shortness of breath, dyspnea on exertion, orthopnea, abdominal pain, diarrhea, back pain, lower extremity edema, focal weakness, general weakness or any other symptoms complaints or concerns at this time. Complaint: head injury Onset (ago): hour(s) (Prior to arrival) Mechanism of Injury: other (Accidental) Place: home Loss of Consciousness: no Location of injury: face (Left upper eyebrow/lid) Radiation: none Other Injuries: none Context: on aspirin Associated symptoms: denies other symptoms Related Data Home Medications Medication Instructions Recorded Confirmed nortriptyline 50 mg capsule 50 mg PO BEDTIME 01/04/20 09/05/20 omeprazole 40 mg capsule,delayed 40 mg PO DAILY@0630 01/04/20 09/05/20 release citalopram 20 mg tablet 20 mg PO DAILY 03/28/20 09/05/20 sertraline 100 mg tablet 100 mg PO DAILY 03/28/20 09/05/20 trazodone 100 mg tablet 100 mg PO BEDTIME 05/31/20 09/05/20 Previous Rx's Medication Instructions Recorded atorvastatin 80 mg tablet 80 mg PO DAILY #30 tab 01/04/20 amlodipine 10 mg tablet 10 mg PO DAILY 30 Days #30 tab 03/27/20 glucose 4 gram chewable tablet 4 g PO Q15M PRN 30 Days #60 tab 03/28/20 (Dex4 Glucose) metoclopramide HCl 10 mg tablet 10 mg PO Q6H PRN #20 tab 03/30/20 (Reglan) cholecalciferol (vitamin D3) 50 50 mcg PO DAILY 30 Days #30 cap 04/05/20 mcg (2,000 unit) capsule ezetimibe 10 mg tablet (Zetia) 10 mg PO DAILY 90 Days #90 tab 04/05/20 metoclopramide HCl 5 mg tablet 5 mg PO DAILY PRN #7 tab 04/14/20 (Reglan) oxycodone 5 mg tablet 5 mg PO Q8H PRN #9 tab 04/14/20 dicyclomine 10 mg capsule 10 mg PO TID #30 cap 05/29/20 metoprolol succinate 50 mg 50 mg PO DAILY 30 Days #30 tab 06/11/20 tablet,extended release 24 hr gabapentin 600 mg tablet 600 mg PO TID #90 tab 09/05/20 insulin glargine 100 unit/mL 20 unit SUBCUT DAILY 30 Days #6 ml 09/05/20 subcutaneous solution (Lantus U-100 Insulin) insulin lispro 100 unit/mL See Rx Instructions SUBCUT 09/05/20 subcutaneous solution (Humalog .COMPLEX 30 Days #40 ml U-100 Insulin) insulin pump cartridge (Omnipod 1 ea SUBCUT .Every 3 days 30 Days 09/05/20 Dash 5 Pack Pod) #15 ea metoprolol succinate 50 mg capsule 50 mg PO DAILY #30 ea 09/21/20 sprinkle, ext. release 24 hr Allergies Allergy/AdvReac Type Severity Reaction Status Date / Time No Known Allergies Allergy Verified 08/21/20 10:08 [No Known Allergies*] Review of Systems Review of Systems: Constitutional : No changes in activity, No lethargy, No recent prior head injury, No agitation, No increased fussiness ENT/Mouth : No Ear Pain, No Nasal discharge/drainage Eyes: No Eye Pain, No Swelling, No Redness, No Foreign Body, No Vision Changes Cardiovascular : No Chest Pain, No SOB Respiratory : No Cough Gastrointestinal : No Nausea, No Vomiting, No abdominal Pain Genitourinary : No Dysuria, No Urinary Frequency, No Urinary Incontinence, No Urgency, No Flank Pain Musculoskeletal : No joint pain, No neck stiffness, No back pain/injury Skin : No lacerations Neuro : Positive head injury, No Dizziness, No unsteady gait, No Paresthesias, No Loss of Consciousness, No altered mental status, No Headache Yes all other systems are reviewed and are negative [facility] Past Medical History Attestation statement: The following information was validated with the patient. Medical History Acid reflux Acute on chronic kidney failure Chronic kidney disease, stage 3 Diabetes type 1, uncontrolled 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 Diabetic visual loss, with retinopathy, associated with type 1 diabetes mellitus Essential hypertension Gastritis Hemangioma of liver Hyperglycemia due to type 1 diabetes mellitus Hypertension associated with diabetes Hypocalcemia Legally blind Polyneuropathy Sciatica Vitamin D deficiency Surgical History Hx of appendectomy Hx of circumcision Hx of endoscopy Hx of eye surgery Family History Family History Father Diabetes mellitus Mother Diabetes mellitus Maternal Grandfather Diabetes mellitus Maternal Grandmother Diabetes mellitus Social History Social History Household Members: Spouse and Children Household Members Other:: and girlfriend Housing: Apartment Do you presently have visiting nurse or other home services: No Alcohol intake: current Alcohol intake frequency: holidays/special occasions only Alcohol type: hard liquor Second Hand Smoke Exposure: No Substance Use Type: Marijuana Advance Directives: No Advance Directives Information Provided: Yes service: No Current occupational status: disabled Physical Exam Vital Signs: Vital Signs: Last Vital Signs Temp 97.8 F 09/21/20 15:32 Pulse 90 09/21/20 18:16 Resp 18 09/21/20 18:16 BP 165/110 H 09/21/20 18:16 Pulse Ox 100 09/21/20 18:16 Body Mass Index 24.3 Vital signs have been reviewed as normal and appeared to be correct. Blood pressure hypertensive 176/111 Heart rate normal. Respiration rate normal. Temperature normal. Oxygen saturation normal. Appearance: Alert. Oriented X3. No acute distress. Head: Normal external exam. Normocephalic. Atraumatic. Able to rotate head bilaterally. Eyes: Patient legally blind. He is noted to have less than 1 cm superficial abrasion noted to left upper eyelid/eyebrow. No active bleeding/soft tissue swelling/surrounding erythema/foreign bodies or tenderness to palpation noted. No obvious deformities are noted. ENT: Hearing normal. Pharynx normal. Uvula midline. tongue midline. Moist mucous membranes. No trismus noted. No drooling noted. No muffled voice noted. No nystagmus noted. Neck: Normal inspection. Neck supple. FROM. No adenopathy. Trachea midline. Thyroid Normal. No meningeal signs. No neck mass noted. CVS: Normal heart rate and rhythm. Heart sound normal. No murmurs noted. Pulses normal throughout. Respiratory: No respiratory distress. Painless inspiration. Breath sounds normal. No wheezes/rales/rhonchi noted. Chest nontender. No accessory muscle usage noted or decreased air movement noted. Abdomen: Soft and nontender. Bowel sounds normal in all 4 quadrants. No distention noted. No organomegaly noted. No visible injury noted. Back: No CVA tenderness. Full range of motion noted. Skin: Skin warm and dry. Normal skin color. Normal skin turgor. No rashes/lesions/lacerations noted. Extremities: No lower extremity edema. Extremities exhibit normal range of motion. Extremities nontender. Able to shrug shoulders bilaterally and keep up against resistance. Neuro: Oriented X 3. No motor deficit. No sensory deficit. Reflexes normal. Moving all extremities. No focal motor deficits. Cranial nerves II-XI intact bilaterally. Facial strength normal. Normal cognition. Speech normal. Gait normal. Strength 5/5 throughout. No pronator drift. No tremor noted. No fasciculations noted. No rigidity noted. Muscle tone normal throughout. No asterixis noted. Hand drop from overhead Misses face. NIHSS score 0. Course Course Course Narrative: 17:30pm - 34-year-old male who is legally blind presenting to the ED with request for medication refill of his 50 mg of metoprolol extended release that he ran out of yesterday. He also reports this morning due to him being legally blind he bumped into a cabin at home and sustained a superficial laceration was left upper eyelid/eyebrow. He is only on aspirin no other blood thinners. He denies any symptoms prior to the head injury including dizziness I am unsure why they wrote that in triage due to he continues to deny this to me multiple times. He denies loss of consciousness or any other injuries. He denies any symptoms after the injury to the head. He reports that he did not fall down to the ground. He denies any other symptoms complaints or concerns at this time. - On exam patient is alert and oriented x3. Not in any acute distress. Normal steady gait. Moving all extremities. 5/5 for strength. No focal neuro deficits are noted. Patient with superficial abrasion to left upper eyebrow/eyelid no active bleeding or foreign bodies or soft tissue swelling or tenderness to palpation is noted.= - labs obtained and patient an elevated white blood cell count 20226. BUN and creatinine elevated similar and improved when compared to prior BUN/creatinine 24/2.44. Random glucose 168. Otherwise all other labs are within normal limits. Due to patient denied any symptoms prior to the head injury and reporting that he did not fall and does now is any tenderness and normal neuro exam and not on any blood thinners he does not need any CT scan of the brain or any other imaging indicated at this time. Therefore patient being given his 50 mg of metoprolol will re-evaluate the patient blood pressure and give him a refill for his metoprolol and DC home with instructions return if any new or worsening symptoms to follow up with primary care provider. Patient understands agrees with this plan. MDM - Head Injury Medical Records Attestation: I reviewed the patient's medical records. Lab Data Attestation: I reviewed the patient's lab results. Result diagrams: 09/21/20 16:22 09/21/20 16:22 Labs: Lab Results 09/21/20 09/21/20 Range/Units 16:22 16:22 WBC 11.1 H (4.8-10.8) X10*3/uL RBC 5.12 (4.60-5.80) X10*6/uL Hgb 15.2 (14.0-18.0) g/dl Hct 45.0 D (42-52) % MCV 87.9 (80-98) fL MCH 29.7 (27.0-33.0) pg MCHC 33.8 (31.0-36.0) g/dl RDW 13.0 (11.0-16.0) % Plt Count 267 (160-400) X10*3/uL MPV 10.0 (9.4-12.4) fL Immature Gran % (Auto) 0.2 (0.0-0.4) % Neut % (Auto) 64.3 (45-73) % Lymph % (Auto) 25.3 (20-40) % [place] % (Auto) 8.0 (2-11) % Eos % (Auto) 1.8 (0-4) % Baso % (Auto) 0.4 (0-2) % Lymph # (Auto) 2.8 (1.2-4.9) X10*3/uL [place] # (Auto) 0.9 (0.1-1.2) X10*3/uL Eos # (Auto) 0.2 (0.0-0.4) X10*3/uL Baso # (Auto) 0.1 (0.0-0.2) X10*3/uL Abs Immat Gran (auto) 0.02 (0.00-0.03) X10*3/uL Absolute Neuts (auto) 7.2 (2.0-8.3) X10*3/uL Absolute Nucleated RBC 0.000 (0.0-0.012) X10*3/uL Nucleated RBC % (auto) 0.0 (0.0-0.2) /100WBC Sodium 142 (135-145) mmol/L Potassium 4.4 (3.3-5.1) mmol/L Chloride 106 (96-108) mmol/L Carbon Dioxide 26 (22-29) mmol/L Anion Gap 14 (12-20) BUN 24 H (9-16) mg/dL Creatinine 2.44 H (0.5-1.4) mg/dL Estim Creat Clear Calc 40.8 Estimated GFR 30 Random Glucose 168 H D (60-115) mg/dL Calcium 10.2 D (8.4-10.2) mg/dL Total Bilirubin 0.6 (0.0-1.0) mg/dL AST 14 (5-37) U/L ALT 10 (0-40) U/L Alkaline Phosphatase 104 (39-117) U/L Total Protein 7.0 (6.5-8.0) g/dL Albumin 3.9 (3.5-5.0) g/dL Discharge Plan Discharge Clinical Impression: Abrasion of eyebrow, Hypertension, Medication refill Patient Disposition: Home, Self-Care Instructions: Hypertension (ED), Medicine Refill (ED) Prescriptions: New metoprolol succinate 50 mg capsule,sprinkle,ER 24hr 50 mg PO DAILY Qty: 30 RF: 0 No Action cholecalciferol (vitamin D3) 50 mcg (2,000 unit) capsule 50 mcg PO DAILY 30 Days Qty: 30 RF: 6 ezetimibe [Zetia] 10 mg tablet 10 mg PO DAILY 90 Days Qty: 90 RF: 2 metoclopramide HCl [Reglan] 10 mg tablet 10 mg PO Q6H PRN (Reason: nausea and vomiting) Qty: 20 RF: 0 metoprolol succinate 50 mg Tablet Extended Release 24 Hr 50 mg PO DAILY 30 Days Qty: 30 RF: 0 trazodone 100 mg tablet 100 mg PO BEDTIME RF: 0 amlodipine 10 mg Tablet 10 mg PO DAILY 30 Days Qty: 30 RF: 0 oxycodone 5 mg Tablet 5 mg PO Q8H PRN (Reason: Pain, Mild (Pain Scale 1-3)) Qty: 9 RF: 0 metoclopramide HCl [Reglan] 5 mg tablet 5 mg PO DAILY PRN (Reason: nausea and vomiting) Qty: 7 RF: 0 omeprazole 40 mg capsule,delayed release(DR/EC) 40 mg PO DAILY@0630 RF: 0 nortriptyline 50 mg capsule 50 mg PO BEDTIME RF: 0 atorvastatin 80 mg tablet 80 mg PO DAILY Qty: 30 RF: 6 citalopram 20 mg tablet 20 mg PO DAILY RF: 0 sertraline 100 mg tablet 100 mg PO DAILY RF: 0 glucose [Dex4 Glucose] 4 gram tablet,chewable 4 g PO Q15M PRN (Reason: hypoglycemia) 30 Days Qty: 60 RF: 5 dicyclomine 10 mg capsule 10 mg PO TID Qty: 30 RF: 2 Lantus U-100 Insulin 100 unit/mL solution 20 unit subcut DAILY 30 Days Qty: 6 RF: 0 Omnipod Dash 5 Pack Pod Cartridge 1 ea subcut .Every 3 days 30 Days Qty: 15 RF: 3 gabapentin 600 mg tablet 600 mg PO TID Qty: 90 RF: 1 insulin lispro [Humalog U-100 Insulin] 100 unit/mL solution See Rx Instructions subcut .COMPLEX 30 Days Qty: 40 RF: 4 Referrals: Name,MD Hong [Primary Care Provider] - 2 days Print Language: Bermudian
[2020-09-21 18:16] VITALS: BP 165/110; PULSE 90; RESP 18; O2SAT 100
== END 2020-09-21 18:34 | disposition home or self-care (01) ==
PROVIDERS: Emergency Provider Internal Medicine; PCP Internal Medicine Geriatric Medicine
DX: S00.212A Abrasion of left eyelid and periocular area, initial encounter (principal); W22.09XA Striking against other stationary object, initial encounter; E10.22 Type 1 diabetes mellitus with diabetic chronic kidney disease; I12.9 Hypertensive chronic kidney disease with stage 1 through stage 4 chronic kidney disease, or unspecified chronic kidney disease; N18.30 Chronic kidney disease, stage 3 unspecified; N17.9 Acute kidney failure, unspecified; H54.8 Legal blindness, as defined in USA; E78.5 Hyperlipidemia, unspecified; Y93.89 Activity, other specified; Y92.010 Kitchen of single-family (private) house as the place of occurrence of the external cause; Y99.9 Unspecified external cause status; Z76.0 Encounter for issue of repeat prescription; Z79.4 Long term (current) use of insulin; Z79.82 Long term (current) use of aspirin; Z79.02 Long term (current) use of antithrombotics/antiplatelets; Z79.899 Other long term (current) drug therapy
CPT/HCPCS: 36415; 80053; 85025; 99283; 99284

== ENCOUNTER 2020-10-07 06:00 | Emergency (ER) | payer MEDICAID, SELFPAY ==
[2020-10-07 06:15] VITALS: BP 134/85; PULSE 90; RESP 18; TEMP 36.6; O2SAT 90; BMI 22.4
--- NOTE | 2020-10-07 06:20 | PC.NURSE ---
PT TO ED VIA EMS AFTER OD BY SNIFFING HEROIN. POLICE AND EMS AT BEDSIDE GAVE NARCAN 8MG. PT ARRIVES ALERT, RESPIRATIONS EASY, N/L. SKIN W/D. PT CHG INTO GOWN BY SECURITY, BELONGINGS REMOVED FROM PT. PT ON MONITOR WITH HR 83. PT IS PO 90% ON RA. PT PUT ON 2L NC WITH PO 94%. PT IN NAD. PT AWAITING FOR MD AT BEDSIDE.
--- NOTE | 2020-10-07 07:24 | ED_ITS ---
HPI - Overdose General Chief Complaint: Overdose Stated Complaint: OD Time Seen by Provider: 10/07/20 07:24 Source: patient and EMS Mode of arrival: EMS Limitations: no limitations History of Present Illness HPI Narrative: 35-year-old male came in by ambulance after was found unresponsive patient was given Narcan 8 mg nasally by the police and transported to the emergency department. Patient admitted to drinking alcohol and using heroin last night. In the ED patient is awake and able to give a full history. Related Data Home Medications Medication Instructions Recorded Confirmed nortriptyline 50 mg capsule 50 mg PO BEDTIME 01/04/20 09/05/20 omeprazole 40 mg capsule,delayed 40 mg PO DAILY@0630 01/04/20 09/05/20 release citalopram 20 mg tablet 20 mg PO DAILY 03/28/20 09/05/20 sertraline 100 mg tablet 100 mg PO DAILY 03/28/20 09/05/20 trazodone 100 mg tablet 100 mg PO BEDTIME 05/31/20 09/05/20 Previous Rx's Medication Instructions Recorded atorvastatin 80 mg tablet 80 mg PO DAILY #30 tab 01/04/20 amlodipine 10 mg tablet 10 mg PO DAILY 30 Days #30 tab 03/27/20 glucose 4 gram chewable tablet 4 g PO Q15M PRN 30 Days #60 tab 03/28/20 (Dex4 Glucose) metoclopramide HCl 10 mg tablet 10 mg PO Q6H PRN #20 tab 03/30/20 (Reglan) cholecalciferol (vitamin D3) 50 50 mcg PO DAILY 30 Days #30 cap 04/05/20 mcg (2,000 unit) capsule ezetimibe 10 mg tablet (Zetia) 10 mg PO DAILY 90 Days #90 tab 04/05/20 metoclopramide HCl 5 mg tablet 5 mg PO DAILY PRN #7 tab 04/14/20 (Reglan) oxycodone 5 mg tablet 5 mg PO Q8H PRN #9 tab 04/14/20 dicyclomine 10 mg capsule 10 mg PO TID #30 cap 05/29/20 metoprolol succinate 50 mg 50 mg PO DAILY 30 Days #30 tab 06/11/20 tablet,extended release 24 hr gabapentin 600 mg tablet 600 mg PO TID #90 tab 09/05/20 insulin glargine 100 unit/mL 20 unit SUBCUT DAILY 30 Days #6 ml 09/05/20 subcutaneous solution (Lantus U-100 Insulin) insulin lispro 100 unit/mL See Rx Instructions SUBCUT 09/05/20 subcutaneous solution (Humalog .COMPLEX 30 Days #40 ml U-100 Insulin) insulin pump cartridge (Omnipod 1 ea SUBCUT .Every 3 days 30 Days 09/05/20 Dash 5 Pack Pod) #15 ea metoprolol succinate 50 mg capsule 50 mg PO DAILY #30 ea 09/21/20 sprinkle, ext. release 24 hr Allergies Allergy/AdvReac Type Severity Reaction Status Date / Time No Known Allergies Allergy Verified 08/21/20 10:08 [No Known Allergies*] Review of Systems Review of Systems: All other systems are reviewed and are negative Constitutional: Reports as per HPI and Reports no additional constitutional complaints Eyes: Reports as per HPI and Reports no additional eye complaints Reports system reviewed and no additional complaints, except as documented Cardiovascular: Reports as per HPI and Reports no additional cardiovascular complaints Respiratory: Reports as per HPI and Reports no additional respiratory complaints Gastrointestinal: Reports as per HPI and Reports no additional gastrointestinal complaints Genitourinary: Reports no additional female genitourinary complaints Musculoskeletal: Reports no additional musculoskeletal complaints Skin/Breast: Reports system reviewed and no additional complaints, except as d ocu Psychiatric: Reports no additional psychiatric complaints Endocrine: Reports no additional endocrine complaints Hematologic/Lymphatic: Reports no additional hematologic/lymphatic complaints Allergic/Immunologic: Reports no additional allergic/immunologic complaints Reports system reviewed and no additional complaints, except as documented and Reports Abnormal speech present [facility] Past Medical History Medical History Acid reflux Acute on chronic kidney failure Chronic kidney disease, stage 3 Diabetes type 1, uncontrolled 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 Diabetic visual loss, with retinopathy, associated with type 1 diabetes mellitus Essential hypertension Gastritis Hemangioma of liver Hyperglycemia due to type 1 diabetes mellitus Hypertension associated with diabetes Hypocalcemia Legally blind Polyneuropathy Sciatica Vitamin D deficiency Surgical History Hx of appendectomy Hx of circumcision Hx of endoscopy Hx of eye surgery Family History Family History Father Diabetes mellitus Mother Diabetes mellitus Maternal Grandfather Diabetes mellitus Maternal Grandmother Diabetes mellitus Social History Social History Household Members: Spouse and Children Household Members Other:: and girlfriend Housing: Apartment Do you presently have visiting nurse or other home services: No Alcohol intake: current Alcohol intake frequency: holidays/special occasions only Alcohol type: hard liquor Second Hand Smoke Exposure: No Substance Use Type: Marijuana Advance Directives: No Advance Directives Information Provided: No service: No Current occupational status: disabled Physical Exam Vital Signs: Vital Signs: Last Vital Signs Temp 98 F 10/07/20 06:15 Pulse 90 10/07/20 06:15 Resp 18 10/07/20 06:15 BP 134/85 10/07/20 06:15 Pulse Ox 90 L 10/07/20 06:15 Body Mass Index 22.4 Vital signs have been reviewed as appeared to be correct. Blood pressure normal. Heart rate normal. Respiration rate normal. Temperature normal. Oxygen saturation normal. Appearance: Alert. Oriented X3. No acute distress. Head: Normal external exam. Normocephalic. Atraumatic. No T[place]ano signs noted. No raccoon eyes noted Eyes: PERRLA. EOMI. Conjunctiva and sclera normal. Eyelids normal. ENT: TM's Normal. Pharynx normal. Uvula midline. Moist mucous membranes. No trismus noted. No drooling noted. No muffled voice noted. Neck: Normal inspection. Neck supple. FROM. No adenopathy. Thyroid Normal. No meningeal signs. No neck mass noted. CVS: Normal heart rate and rhythm. Heart sound normal. No murmurs noted. Pulses normal throughout. Respiratory: No respiratory distress. Painless inspiration. Breath sounds normal. No wheezes/rales/rhonchi noted. Chest nontender. No accessory muscle usage noted or decreased air movement noted. Abdomen: Soft and nontender. Bowel sounds normal in all 4 quadrants. No distention noted. No organomegaly noted. No visible injury noted. Back: No CVA tenderness. Full range of motion noted. Skin: Skin warm and dry. Normal skin color. Normal skin turgor. No rashes/lesions/lacerations noted. Extremities: No lower extremity edema. Extremities exhibit normal range of motion. Extremities nontender. Neuro: Oriented X 3. Cranial nerve exam: II-XII are grossly intact No motor deficit. No sensory deficit. Reflexes normal. Course Course Course Narrative: 35 years old male some of overdosed on heroin and drinking alcohol, patient was given 8 mg of Narcan by the police at the scene, patient emergency department remained awake, stable vital signs, no further need for Narcan. Discharge Plan Discharge Clinical Impression: Drug overdose Patient Disposition: Home, Self-Care Instructions: Polysubstance Abuse (ED) Prescriptions: No Action cholecalciferol (vitamin D3) 50 mcg (2,000 unit) capsule 50 mcg PO DAILY 30 Days Qty: 30 RF: 6 ezetimibe [Zetia] 10 mg tablet 10 mg PO DAILY 90 Days Qty: 90 RF: 2 metoclopramide HCl [Reglan] 10 mg tablet 10 mg PO Q6H PRN (Reason: nausea and vomiting) Qty: 20 RF: 0 metoprolol succinate 50 mg Tablet Extended Release 24 Hr 50 mg PO DAILY 30 Days Qty: 30 RF: 0 metoprolol succinate 50 mg capsule,sprinkle,ER 24hr 50 mg PO DAILY Qty: 30 RF: 0 trazodone 100 mg tablet 100 mg PO BEDTIME RF: 0 amlodipine 10 mg Tablet 10 mg PO DAILY 30 Days Qty: 30 RF: 0 oxycodone 5 mg Tablet 5 mg PO Q8H PRN (Reason: Pain, Mild (Pain Scale 1-3)) Qty: 9 RF: 0 metoclopramide HCl [Reglan] 5 mg tablet 5 mg PO DAILY PRN (Reason: nausea and vomiting) Qty: 7 RF: 0 omeprazole 40 mg capsule,delayed release(DR/EC) 40 mg PO DAILY@0630 RF: 0 nortriptyline 50 mg capsule 50 mg PO BEDTIME RF: 0 atorvastatin 80 mg tablet 80 mg PO DAILY Qty: 30 RF: 6 citalopram 20 mg tablet 20 mg PO DAILY RF: 0 sertraline 100 mg tablet 100 mg PO DAILY RF: 0 glucose [Dex4 Glucose] 4 gram tablet,chewable 4 g PO Q15M PRN (Reason: hypoglycemia) 30 Days Qty: 60 RF: 5 dicyclomine 10 mg capsule 10 mg PO TID Qty: 30 RF: 2 Lantus U-100 Insulin 100 unit/mL solution 20 unit subcut DAILY 30 Days Qty: 6 RF: 0 Omnipod Dash 5 Pack Pod Cartridge 1 ea subcut .Every 3 days 30 Days Qty: 15 RF: 3 gabapentin 600 mg tablet 600 mg PO TID Qty: 90 RF: 1 insulin lispro [Humalog U-100 Insulin] 100 unit/mL solution See Rx Instructions subcut .COMPLEX 30 Days Qty: 40 RF: 4 Referrals: Physician,Unknown [Primary Care Provider] - 2 days
--- NOTE | 2020-10-07 08:04 | PC.NURSE ---
Pt sleeping, responds when questioned. Denies substance use. Pt on monitor vss. Will let pt sleep and continue to monitor.
[2020-10-07 08:18] LABS: Amphetamine Screen Urine Not Detected (Not Detect); Barbiturates, Urine Not Detected (Not Detect); Benzodiazepines Screen Urine Not Detected (Not Detect); Cannabinoid Screen Urine POSITIVE (Not Detect); Cocaine Screen Urine POSITIVE (Not Detect); Opiate Screen Urine Not Detected (Not Detect); Phencyclidine Screen Urine Not Detected (Not Detect)
[2020-10-07 08:24] LABS: Fentanyl, urine POSITIVE (Not Detect)
--- NOTE | 2020-10-07 08:39 | PC.NURSE ---
Pt is medically cleared for discharge . Josias from Care Team is at pt's bedside at this time
--- NOTE | 2020-10-07 09:56 | PC.NURSE ---
This life insurance underwriter checked in with Josias from Care Team regarding pt's plan of care. Per Josias he is attempting to get in contact with someone at the pt's home to have pt picked up as he is blind in both eyes. This life insurance underwriter will continue to monitor.
--- NOTE | 2020-10-07 10:34 | MHC.RECOVSUP ---
Recovery Support note: Patient is a 35 year old Sammarinese speaking male who presented [place] [facility] [place] after an accidental overdose. This commercial loan underwriter met with patient in ED6 with an [facility] bullet lubricant mixer to discuss his substance use and recovery supports. Patient denies substance use, stating he does not remember how he got here. This commercial loan underwriter discussed circumstances of overdose with patient. Patient continues to deny any substance use and does not know how this could have happened. Patient denies the need to discuss recovery supports as he reports he does not use any substances. This commercial loan underwriter attempted to assist ED with discharging patient. Patient does not have a phone on him and the numbers he remembers do not pecan picker when called. Patient is blind and his clothes are soiled. This commercial loan underwriter will continue to make calls with patient in an effort to help with discharge. Discussed case with patient's RN.
--- NOTE | 2020-10-07 11:47 | PC.NURSE ---
Met with Josias from Care Team to get an update on pt's discharge plan. Per Josias he has been trying to get in contact with someone at the pt's home to bring him clothes, however he has not been able to reach anyone. This senior technical writer will continue to follow-up.
== END 2020-10-07 12:56 | disposition home or self-care (01) ==
PROVIDERS: Emergency Provider Emergency Medicine
DX: T40.1X1A Poisoning by heroin, accidental (unintentional), initial encounter (principal); Y92.9 Unspecified place or not applicable; F11.188 Opioid abuse with other opioid-induced disorder; Z71.51 Drug abuse counseling and surveillance of drug abuser; Z79.899 Other long term (current) drug therapy
CPT/HCPCS: 80307; 99284

== ENCOUNTER → 2021-01-14 13:06 | Outpatient (BNVA) | payer MEDICAID, SELFPAY | PROVIDERS: PCP Internal Medicine Geriatric Medicine; Visit Provider Nurse Practitioner Gerontology | DX: E10.65 Type 1 diabetes mellitus with hyperglycemia (principal); E10.42 Type 1 diabetes mellitus with diabetic polyneuropathy; E10.21 Type 1 diabetes mellitus with diabetic nephropathy; E11.3299 Type 2 diabetes mellitus with mild nonproliferative diabetic retinopathy without macular edema, unspecified eye; E78.5 Hyperlipidemia, unspecified | CPT/HCPCS: 82947; 83036; 99212 ==

== ENCOUNTER → 2021-02-01 13:37 | Outpatient (BNVA) | payer MEDICAID, SELFPAY | PROVIDERS: PCP Internal Medicine Geriatric Medicine; Visit Provider Registered Nurse Diabetes Educator | DX: E10.21 Type 1 diabetes mellitus with diabetic nephropathy (principal); Z79.4 Long term (current) use of insulin; Z96.41 Presence of insulin pump (external) (internal) | CPT/HCPCS: 99211 ==

== ENCOUNTER 2021-03-12 13:46 | Outpatient (REF) | payer MEDICAID, SELFPAY ==
--- NOTE | 2021-03-12 16:41 | MHC.AU.ANR ---
Adult Audiological Evaluation Date of Visit: 03/12/21 Cloth Covered Helmet Puller Used: Israeli- In Person Reason for Appointment: Audiological evaluation due to concern for decreased hearing. Mr. Hernandez reports that he has been having trouble hearing from both ears. He feels that both ears are blocked and has been experiencing this for several months. Mr. Hernandez is blind, so he heavily relies on his hearing. Does patient feel they have a hearing loss?: Yes If Yes, Which Ear?: Both Ears When Was Hearing Difficulty First Noticed?: ~2 months ago Has hearing been tested previously?: No Hearing Handicap Inventory: HHIE SCORE: 10 Based on HHIE score, patient has: Mild to moderate perceived hearing handicap Medical History: Medical History: Diabetes, High Blood Pressure Medical History (Other): Per PCP report: Stage 3 chronic kidney disease, Type 1 diabetes, history of opioid abuse Medication List: Gabapentin, Atorvastatin, Omeprazole, Losartan, Vitamin D3, Ezetimibe, Nortriptyline, Insulin Otoscopy: Right Ear: Completely occluding cerumen. Most removed w/ suction. Some deep in canal r Left Ear: Clear canal Tympanometry: Tympanometry performed due to: Patient reports sensation that ears are blocked/plugged. Right Ear: Negative Middle Ear Pressure (Type C), Reduced Middle Ear Compliance (Type As) Left Ear: Non-compliant Middle Ear System (Type B) Hearing Evaluation: Transducer(s) Used: Insert Earphones, Bone Conduction Method: Conventional Audiometry Stimuli Used: Pure Tones Right Ear: Description of Hearing: Normal hearing at 250 Hz, sloping to a mild conductive loss at 500 Hz, rising to normal hearing from 2069-1668 Hz. Left Ear: Description of Hearing: Moderate to moderately-severe conductive hearing loss from 250-1000 Hz, moderately-severe mixed hearing loss at 2000 Hz, and a moderate to moderately-severe conductive hearing loss 0242-7614 Hz. Speech Recognition Threshold (SRT): Method Used: Recorded Lists Stimuli Used: Israeli Trisyllable Words Right Ear: 25 dBHL Left Ear: 60 dBHL Word Discrimination: Method: Recorded Lists Word Lists Used: Lista Bisil?bica (Israeli) Right Ear: 100% at 65 dBHL Left Ear: 100% at 85 dBHL with 55 dBHL of masking Recommendations: Audiological re-evaluation in one year. Referral to Ear, Nose, and Throat to address middle ear dysfunction and conductive hearing loss in the left ear. Diagnosis: Primary Diagnosis: H90.0 Conductive Hearing Loss, Bilateral Secondary Diagnosis: H69.93 Unspecified Eustachian Tube Dysfunction, Bilateral Services Performed: Services Performed: Comprehensive Audiological Evaluation (CPT 67991) Tympanometry (CPT 11073) Signature: Provider: Yamilet Everett, CCC-A
--- NOTE | 2021-03-12 16:47 | MHC.AU.ANR ---
Adult Audiological Evaluation Date of Visit: 03/12/21 Hearing Impaired Teacher Used: Iranian- In Person Reason for Appointment: Audiological evaluation due to concern for decreased hearing. Mr. Hernandez reports that he has been having trouble hearing from both ears. He feels that both ears are blocked and has been experiencing this for several months. Mr. Hernandez is blind, so he heavily relies on his hearing. Does patient feel they have a hearing loss?: Yes If Yes, Which Ear?: Both Ears When Was Hearing Difficulty First Noticed?: ~2 months ago Has hearing been tested previously?: No Hearing Handicap Inventory: HHIE SCORE: 10 Based on HHIE score, patient has: Mild to moderate perceived hearing handicap Medical History: Medical History: Diabetes, High Blood Pressure Medical History (Other): Per PCP report: Stage 3 chronic kidney disease, Type 1 diabetes, history of opioid abuse Allergies: No known allergies Medication List: Gabapentin, Atorvastatin, Omeprazole, Losartan, Vitamin D3, Ezetimibe, Nortriptyline, Insulin Otoscopy: Right Ear: Completely occluding cerumen. Most removed w/ suction and lighted curette. Some cerumen remains deep in canal. Able to view most of the tympanic membrane post-cerumen removal. Left Ear: Clear canal Tympanometry: Tympanometry performed due to: Patient reports sensation that ears are blocked/plugged. Right Ear: Negative Middle Ear Pressure (Type C), Reduced Middle Ear Compliance (Type As) Left Ear: Non-compliant Middle Ear System (Type B) Hearing Evaluation: Transducer(s) Used: Insert Earphones, Bone Conduction Method: Conventional Audiometry Stimuli Used: Pure Tones Right Ear: Description of Hearing: Normal hearing at 250 Hz, sloping to a mild conductive loss at 500 Hz, rising to normal hearing from 8202-3600 Hz. Left Ear: Description of Hearing: Moderate to moderately-severe conductive hearing loss from 250-1000 Hz, moderately-severe mixed hearing loss at 2000 Hz, and a moderate to moderately-severe conductive hearing loss 3441-6916 Hz. Speech Recognition Threshold (SRT): Method Used: Recorded Lists Stimuli Used: Iranian Trisyllable Words Right Ear: 25 dBHL Left Ear: 60 dBHL Word Discrimination: Method: Recorded Lists Word Lists Used: Lista Bisil?bica (Iranian) Right Ear: 100% at 65 dBHL Left Ear: 100% at 85 dBHL with 55 dBHL of masking Recommendations: Audiological re-evaluation in one year. Referral to Ear, Nose, and Throat to address middle ear dysfunction and conductive hearing loss in the left ear. Diagnosis: Primary Diagnosis: H90.0 Conductive Hearing Loss, Bilateral Secondary Diagnosis: H69.93 Unspecified Eustachian Tube Dysfunction, Bilateral Services Performed: Services Performed: Comprehensive Audiological Evaluation (CPT 65076) Tympanometry (CPT 24489) Signature: Provider: Yamilet Everett, CCC-A
== END 2021-03-12 13:47 | disposition home or self-care (01) ==
LOC: HO.SH 13:46
PROVIDERS: Visit Provider Internal Medicine Geriatric Medicine
DX: H90.0 Conductive hearing loss, bilateral (principal); H69.93 Unspecified Eustachian tube disorder, bilateral
CPT/HCPCS: 92557; 92567

== ENCOUNTER 2021-03-24 15:05 | Emergency (ER) | payer MEDICAID, SELFPAY ==
[2021-03-24] VITALS (8 sets, daily range): BP systolic 163–193; BP diastolic 99–110; PULSE 111–129; RESP 16–18; TEMP 36.6–36.9; O2SAT 95–98
--- NOTE | ~2021-03-24 | CT_ITS ---
EXAMINATION: CT ABDOMEN AND PELVIS WITHOUT CONTRAST CLINICAL INFORMATION: Left-sided pain. COMPARISON: CT scan abdomen pelvis 04/12/2020 TECHNIQUE: Multidetector volumetric imaging was performed from the superior aspect of the liver through the pubic symphysis. Sagittal and coronal reformatted images were obtained on the technologist's workstation. This CT examination was performed using dose optimization techniques as appropriate, variously including the following: *Automated exposure control *Adjustment of mA and/or kV according to patient size (this includes techniques or standardized protocols for targeted exams where dose is matched to indication/reason for exam; i.e. extremities or head) *Use of iterative reconstruction technique DLP: 461 mGy-cm FINDINGS: LUNG BASES: The visualized lung bases are unremarkable. LIVER, GALLBLADDER, AND BILIARY TREE: The liver is normal in size, shape, and attenuation. No focal hepatic lesion or biliary ductal dilatation is present. The gallbladder is unremarkable with no evidence of radiopaque gallstones, gallbladder wall thickening, or obvious pericholecystic inflammatory changes. PANCREAS: Edema around the pancreas seen on the CAT scan 04/12/2020 has resolved. The fat planes are normal. No pseudocyst. No pancreatic duct dilatation. Peripancreatic calcifications. SPLEEN: Unremarkable. ADRENAL GLANDS: Unremarkable. KIDNEYS AND URETERS: The kidneys are normal in size, shape, and attenuation. No hydronephrosis, hydroureter, or calculi seen. No perinephric stranding. BLADDER: Unremarkable. GASTROINTESTINAL TRACT: Small hiatal hernia. No abnormality of the small and large bowel. Moderate volume of scattered stool in the colon. The appendix is not visualized. There is no inflammation the mesentery. ABDOMINAL WALL: No significant hernia is appreciated. LYMPH NODES: There are shotty subcentimeter lymph nodes in the retroperitoneum but no bulky lymphadenopathy. Lymph nodes have diminished in size since CAT scan 04/12/2020. Largest lymph node has a short axis diameter about 0.7 cm. This previously measured 1.1 cm on CAT scan 04/12/2020. VASCULAR: Unremarkable. PELVIC VISCERA: Unremarkable. OSSEOUS STRUCTURES: Unremarkable. CT/CT abdomen pelvis wo con IMPRESSION: 1. No acute abnormality the abdomen or pelvis. Normal kidneys ,ureter and bladder. 2. Interval resolution of the edema around the pancreas seen on the prior study 04/12/2020. 3. Decreased size of shotty retroperitoneal lymph nodes. There are no enlarged lymph nodes in the abdomen and pelvis. Fleischner guidelines were followed.
--- NOTE | 2021-03-24 16:55 | ED_ITS ---
HPI - Abdominal Pain General Chief Complaint: Abdominal Pain Stated Complaint: Abdominal pain Time Seen by Provider: 03/24/21 16:55 Source: patient Mode of arrival: EMS History of Present Illness HPI narrative: Patient type 1 diabetic missed his other insulin pump for last 3 days using subcu insulin came from [place] complaining of nausea vomiting diffuse abdominal pain mostly on the left side for last 2 days vomited multiple times no fever no chills no urinary complaints or diarrhea no urinary complaints, patient checking his blood sugar was 348 prior to arrival legally blind checking sugar and gives insulin Related Data Home Medications Medication Instructions Recorded Confirmed nortriptyline 50 mg capsule 50 mg PO BEDTIME 01/04/20 01/14/21 omeprazole 40 mg capsule,delayed 40 mg PO DAILY@0630 01/04/20 01/14/21 release sertraline 100 mg tablet 100 mg PO DAILY 03/28/20 01/14/21 Previous Rx's Medication Instructions Recorded glucose 4 gram chewable tablet 4 g PO Q15M PRN 30 Days #60 tab 03/28/20 (Dex4 Glucose) cholecalciferol (vitamin D3) 50 50 mcg PO DAILY 30 Days #30 cap 04/05/20 mcg (2,000 unit) capsule oxycodone 5 mg tablet 5 mg PO Q8H PRN #9 tab 04/14/20 gabapentin 600 mg tablet 600 mg PO TID #90 tab 09/05/20 insulin glargine 100 unit/mL 20 unit (0.2 mL) SUBCUT DAILY 30 09/05/20 subcutaneous solution (Lantus Days #6 ml U-100 Insulin) insulin lispro 100 unit/mL See Rx Instructions SUBCUT 09/05/20 subcutaneous solution (Humalog .COMPLEX 30 Days #40 ml U-100 Insulin) insulin pump cartridge (Omnipod 1 ea SUBCUT .Every 3 days 30 Days 09/05/20 Dash Insulin Pod) #15 ea metoprolol succinate 50 mg capsule 50 mg PO DAILY #30 ea 09/21/20 sprinkle, ext. 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 Oriented X3. No acute distress. Eyes: No pallor ENT: Pharynx normal. Oral Mucosa moist Neck: Normal inspection. Neck supple. CVS: Normal heart rate and rhythm. Pulses normal. Respiratory: No respiratory distress. Equal air entry bilateral, no wheezing/rales/rhonchi Abdomen: Soft, deep tenderness on left side of abdomen no rebound tenderness or guarding Bowel sounds are present, , no CVA tenderness Skin: Skin warm and dry. Normal skin color. Normal skin turgor. Extremities: No lower extremity edema. No calf tenderness Neuro: Oriented X 3. MDM - Abdominal Pain MDM Narrative Medical decision making narrative: Patient type 1 diabetic on insulin pump run out of his supplies using insulin via pen workup showed elevated blood sugar CT scan is negative no DKA patient improved after IV fluids will discharge patient home Lab Data Attestation: I reviewed the patient's lab results. Result diagrams: 03/24/21 17:20 03/24/21 17:20 Labs: Lab Results 03/24/21 03/24/21 03/24/21 Range/Units 17:07 17:20 17:20 WBC 15.2 H (4.8-10.8) X10*3/uL RBC 4.78 (4.60-5.80) X10*6/uL Hgb 14.2 (14.0-18.0) g/dl Hct 41.7 L (42.0-52.0) % MCV 87.2 (80.0-98.0) fL MCH 29.7 (27.0-33.0) pg MCHC 34.1 (31.0-36.0) g/dl RDW 12.1 (11.0-16.0) % Plt Count 203 (160-400) X10*3/uL MPV 10.2 (9.4-12.4) fL Immature Gran % (Auto) 0.3 (0.0-0.4) % Neut % (Auto) 84.7 H (45-73) % Lymph % (Auto) 8.8 L (20-40) % Isabella % (Auto) 6.1 (2-11) % Eos % (Auto) 0.0 (0-4) % Baso % (Auto) 0.1 (0-2) % Lymph # (Auto) 1.3 (1.2-4.9) X10*3/uL Isabella # (Auto) 0.9 (0.1-1.2) X10*3/uL Eos # (Auto) 0.0 (0.0-0.4) X10*3/uL Baso # (Auto) 0.0 (0.0-0.2) X10*3/uL Abs Immat Gran (auto) 0.05 H (0.00-0.03) X10*3/uL Absolute Neuts (auto) 12.9 H (2.0-8.3) x10*3/uL Absolute Nucleated RBC 0.000 (0.0-0.012) X10*3/uL Nucleated RBC % (auto) 0.0 (0.0-0.2) /100WBC VBG pH (7.32-7.43) VBG pCO2 mmHg VBG pO2 mmHg VBG HCO3 (22-26) mmol/L VBG O2 Saturation % VBG Base Excess mmol/L Sodium 135 (135-145) mmol/L Potassium 4.6 (3.3-5.1) mmol/L Chloride 95 L (96-108) mmol/L Carbon Dioxide 25 (22-29) mmol/L Anion Gap 20 (12-20) BUN 40 H (9-16) mg/dL Creatinine 3.34 H (0.5-1.4) mg/dL Estim Creat Clear Calc 11.7 Estimated GFR 21 POC Glucose 356 H* (60-115) mg/dL Random Glucose 376 H* (60-115) mg/dL Calcium 9.0 D (8.4-10.2) mg/dL Total Bilirubin 0.7 (0.0-1.0) mg/dL Direct Bilirubin 0.3 (0.0-0.5) mg/dL AST 22 D (5-37) U/L ALT 20 (0-40) U/L Alkaline Phosphatase 109 (39-117) U/L Total Protein 7.0 (6.5-8.0) g/dL Albumin 3.8 (3.5-5.0) g/dL Lipase 48 (8-78) U/L Urine Color Urine Appearance Urine pH (5.0-8.0) Ur Specific [place] (1.005-1.025) Urine Protein (NEG-TRACE) MG/DL Urine Glucose (UA) (NEG) MG/DL Urine Ketones (NEG) MG/DL Urine Blood (NEG) Urine Nitrite (NEG) Ur Leukocyte Esterase (NEG) Urine RBC (0) /HPF Urine WBC (0-4) /HPF Ur Squamous Epith Cells /LPF Amorphous Sediment /LPF Urine Bacteria /LPF Granular Casts /LPF Urine Mucus /LPF Acetone, Qual (Negative) COVID-19 (SABINE) (Negative) COVID-19 Clin Com 03/24/21 03/24/21 03/24/21 Range/Units 17:20 17:20 17:22 WBC (4.8-10.8) X10*3/uL RBC (4.60-5.80) X10*6/uL Hgb (14.0-18.0) g/dl Hct (42.0-52.0) % MCV (80.0-98.0) fL MCH (27.0-33.0) pg MCHC (31.0-36.0) g/dl RDW (11.0-16.0) % Plt Count (160-400) X10*3/uL MPV (9.4-12.4) fL Immature Gran % (Auto) (0.0-0.4) % Neut % (Auto) (45-73) % Lymph % (Auto) (20-40) % Isabella % (Auto) (2-11) % Eos % (Auto) (0-4) % Baso % (Auto) (0-2) % Lymph # (Auto) (1.2-4.9) X10*3/uL Isabella # (Auto) (0.1-1.2) X10*3/uL Eos # (Auto) (0.0-0.4) X10*3/uL Baso # (Auto) (0.0-0.2) X10*3/uL Abs Immat Gran (auto) (0.00-0.03) X10*3/uL Absolute Neuts (auto) (2.0-8.3) x10*3/uL Absolute Nucleated RBC (0.0-0.012) X10*3/uL Nucleated RBC % (auto) (0.0-0.2) /100WBC VBG pH 7.44 H (7.32-7.43) VBG pCO2 40 mmHg VBG pO2 46 mmHg VBG HCO3 27 H (22-26) mmol/L VBG O2 Saturation 74.0 % VBG Base Excess 3.6 mmol/L Sodium (135-145) mmol/L Potassium (3.3-5.1) mmol/L Chloride (96-108) mmol/L Carbon Dioxide (22-29) mmol/L Anion Gap (12-20) BUN (9-16) mg/dL Creatinine (0.5-1.4) mg/dL Estim Creat Clear Calc Estimated GFR POC Glucose (60-115) mg/dL Random Glucose (60-115) mg/dL Calcium (8.4-10.2) mg/dL Total Bilirubin (0.0-1.0) mg/dL Direct Bilirubin (0.0-0.5) mg/dL AST (5-37) U/L ALT (0-40) U/L Alkaline Phosphatase (39-117) U/L Total Protein (6.5-8.0) g/dL Albumin (3.5-5.0) g/dL Lipase (8-78) U/L Urine Color Urine Appearance Urine pH (5.0-8.0) Ur Specific [place] (1.005-1.025) Urine Protein (NEG-TRACE) MG/DL Urine Glucose (UA) (NEG) MG/DL Urine Ketones (NEG) MG/DL Urine Blood (NEG) Urine Nitrite (NEG) Ur Leukocyte Esterase (NEG) Urine RBC (0) /HPF Urine WBC (0-4) /HPF Ur Squamous Epith Cells /LPF Amorphous Sediment /LPF Urine Bacteria /LPF Granular Casts /LPF Urine Mucus /LPF Acetone, Qual Negative (Negative) COVID-19 (SABINE) Negative (Negative) COVID-19 Clin Com See Note 03/24/21 03/24/21 Range/Units 19:22 19:30 WBC (4.8-10.8) X10*3/uL RBC (4.60-5.80) X10*6/uL Hgb (14.0-18.0) g/dl Hct (42.0-52.0) % MCV (80.0-98.0) fL MCH (27.0-33.0) pg MCHC (31.0-36.0) g/dl RDW (11.0-16.0) % Plt Count (160-400) X10*3/uL MPV (9.4-12.4) fL Immature Gran % (Auto) (0.0-0.4) % Neut % (Auto) (45-73) % Lymph % (Auto) (20-40) % Isabella % (Auto) (2-11) % Eos % (Auto) (0-4) % Baso % (Auto) (0-2) % Lymph # (Auto) (1.2-4.9) X10*3/uL Isabella # (Auto) (0.1-1.2) X10*3/uL Eos # (Auto) (0.0-0.4) X10*3/uL Baso # (Auto) (0.0-0.2) X10*3/uL Abs Immat Gran (auto) (0.00-0.03) X10*3/uL Absolute Neuts (auto) (2.0-8.3) x10*3/uL Absolute Nucleated RBC (0.0-0.012) X10*3/uL Nucleated RBC % (auto) (0.0-0.2) /100WBC VBG pH (7.32-7.43) VBG pCO2 mmHg VBG pO2 mmHg VBG HCO3 (22-26) mmol/L VBG O2 Saturation % VBG Base Excess mmol/L Sodium (135-145) mmol/L Potassium (3.3-5.1) mmol/L Chloride (96-108) mmol/L Carbon Dioxide (22-29) mmol/L Anion Gap (12-20) BUN (9-16) mg/dL Creatinine (0.5-1.4) mg/dL Estim Creat Clear Calc Estimated GFR POC Glucose 267 H (60-115) mg/dL Random Glucose (60-115) mg/dL Calcium (8.4-10.2) mg/dL Total Bilirubin (0.0-1.0) mg/dL Direct Bilirubin (0.0-0.5) mg/dL AST (5-37) U/L ALT (0-40) U/L Alkaline Phosphatase (39-117) U/L Total Protein (6.5-8.0) g/dL Albumin (3.5-5.0) g/dL Lipase (8-78) U/L Urine Color YELLOW Urine Appearance CLEAR Urine pH 5.5 (5.0-8.0) Ur Specific [place] 1.025 (1.005-1.025) Urine Protein 3+ H (NEG-TRACE) MG/DL Urine Glucose (UA) NEG (NEG) MG/DL Urine Ketones 5 (NEG) MG/DL Urine Blood 3+ H (NEG) Urine Nitrite NEG (NEG) Ur Leukocyte Esterase NEG (NEG) Urine RBC 1-4 (0) /HPF Urine WBC 0-2 (0-4) /HPF Ur Squamous Epith Cells TRACE /LPF Amorphous Sediment 1+ /LPF Urine Bacteria NONE /LPF Granular Casts 1-4 /LPF Urine Mucus TRACE /LPF Acetone, Qual (Negative) COVID-19 (SABINE) (Negative) COVID-19 Clin Com Discharge Plan Discharge Clinical Impression: Diabetes type 1, uncontrolled Patient Disposition: Home, Self-Care Instructions: Diabetic Hyperglycemia (ED) Additional Instructions: Drink plenty of fluids Take your insulin as prescribed Prescriptions: No Action cholecalciferol (vitamin D3) 50 mcg (2,000 unit) capsule 50 mcg PO DAILY 30 Days Qty: 30 6RF atorvastatin 80 mg tablet 80 mg PO DAILY Qty: 30 6RF ezetimibe [Zetia] 10 mg tablet 10 mg PO DAILY 90 Days Qty: 90 1RF metoprolol succinate 50 mg capsule,sprinkle,ER 24hr 50 mg PO DAILY Qty: 30 0RF oxycodone 5 mg Tablet 5 mg PO Q8H PRN (Reason: Pain, Mild (Pain Scale 1-3)) Qty: 9 0RF Rx Instructions: abdominal pain secondary to pancreatitis omeprazole 40 mg capsule,delayed release(DR/EC) 40 mg PO DAILY@0630 0RF nortriptyline 50 mg capsule 50 mg PO BEDTIME 0RF sertraline 100 mg tablet 100 mg PO DAILY 0RF Rx Instructions: PATIENT HAS BEEN FILLING AND ALSO STATES HE IS ON BOTH CITALOPRAM AND SE RTRALINE glucose [Dex4 Glucose] 4 gram tablet,chewable 4 g PO Q15M PRN (Reason: hypoglycemia) 30 Days Qty: 60 5RF Rx Instructions: until symptoms of low blood sugar are controlled Lantus U-100 Insulin 100 unit/mL solution 20 unit subcut DAILY 30 Days Qty: 6 0RF Omnipod Dash Insulin Pod Cartridge 1 ea subcut .Every 3 days 30 Days Qty: 15 3RF gabapentin 600 mg tablet 600 mg PO TID Qty: 90 1RF insulin lispro [Humalog U-100 Insulin] 100 unit/mL solution See Rx Instructions subcut .COMPLEX 30 Days Qty: 40 4RF Rx Instructions: 80 units subcut daily via pump; [facility] Past Medical History Medical History Acid reflux Acute on chronic kidney failure Chronic kidney disease, stage 3 Diabetes type 1, uncontrolled 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 Diabetic visual loss, with retinopathy, associated with type 1 diabetes mellitus Essential hypertension Gastritis Hemangioma of liver Hyperglycemia due to type 1 diabetes mellitus Hypertension associated with diabetes Hypocalcemia Legally blind Polyneuropathy Sciatica Vitamin D deficiency Surgical History Hx of appendectomy Hx of circumcision Hx of endoscopy Hx of eye surgery Family History Family History Father Diabetes mellitus Mother Diabetes mellitus Maternal Grandfather Diabetes mellitus Maternal Grandmother Diabetes mellitus Social History Social History Household Members: Spouse and Children Household Members Other:: and girlfriend Housing: Apartment Do you presently have visiting nurse or other home services: No Alcohol intake: current Alcohol intake frequency: holidays/special occasions only Alcohol type: hard liquor Patient Tobacco Use Status: Former Tobacco user Second Hand Smoke Exposure: No Use of substances other than those prescribed or required for medical reasons: Yes Substance Use Type: Marijuana Substance Use Frequency: Daily Advance Directives: No Advance Directives Information Provided: No service: No Current occupational status: disabled
--- NOTE | 2021-03-24 17:05 | ECG_ITS ---
Test Reason : abd pain Blood Pressure : / mmHG Vent. Rate : 125 BPM Atrial Rate : 125 BPM P-R Int : 118 ms QRS Dur : 076 ms QT Int : 330 ms P-R-T Axes : 058 086 030 degrees QTc Int : 476 ms Sinus tachycardia Otherwise normal ECG When compared with ECG of 09-JUN-2020 00:38, No significant changes seen Referred By: Andre Malhotra Electronically Signed By:NATALIE JOHNSON
[2021-03-24 17:11] LABS: Glucose, Whole Blood 356 mg/dL (60-115)
[2021-03-24 17:24] LABS: MANUAL DIFF FLAG NO
[2021-03-24 17:26] LABS: Basophils Percent Auto 0.1 % (0-2); Hematocrit 41.7 % (42.0-52.0); Hemoglobin 14.2 g/dl (14.0-18.0); Imm Gran Abs Auto 0.05 X10*3/uL (0.00-0.03); Imm Gran Pct Auto 0.3 % (0.0-0.4); Lymphocytes Absolute Auto 1.3 X10*3/uL (1.2-4.9); Lymphocytes Percent Auto 8.8 % (20-40); Mean Corpuscular HGB Conc 34.1 g/dl (31.0-36.0); Mean Corpuscular Hemoglobin 29.7 pg (27.0-33.0); Mean Corpuscular Volume 87.2 fL (80.0-98.0); Mean Platelet Volume 10.2 fL (9.4-12.4); Monocytes Absolute Auto 0.9 X10*3/uL (0.1-1.2); Monocytes Percent Auto 6.1 % (2-11); Neutrophils Absolute Auto 12.9 x10*3/uL (2.0-8.3); Neutrophils Percent Auto 84.7 % (45-73); Platelet Count 203 X10*3/uL (160-400); Red Blood Count 4.78 X10*6/uL (4.60-5.80); Red Cell Distribution Width 12.1 % (11.0-16.0); White Blood Count 15.2 X10*3/uL (4.8-10.8)
[2021-03-24 17:29] LABS: VBG Base Excess 3.6 mmol/L; VBG HCO3 27 mmol/L (22-26); VBG pCO2 40 mmHg; VBG pH 7.44 (7.32-7.43); VBG pO2 46 mmHg
[2021-03-24 17:30] LABS: Venous Blood Gas Refer to POC result
[2021-03-24 17:39] LABS: COVID-19 Test Negative (Negative)
[2021-03-24 17:42] LABS: Acetone, serum QL Negative (Negative)
[2021-03-24 17:57] LABS: Alanine Aminotransferase 20 U/L (0-40); Albumin Level 3.8 g/dL (3.5-5.0); Alkaline Phosphatase 109 U/L (39-117); Anion Gap 20 (12-20); Aspartate Amino Transferase 22 U/L (5-37); Bilirubin Direct 0.3 mg/dL (0.0-0.5); Bilirubin Total 0.7 mg/dL (0.0-1.0); Blood Urea Nitrogen 40 mg/dL (9-16); Carbon Dioxide 25 mmol/L (22-29); Chloride 95 mmol/L (96-108); Creatinine Clr Calc Pharmacy 11.7; Estimated Glomerular Filt Rate 21; Glucose Random 376 mg/dL (60-115); Lipase 48 U/L (8-78); Potassium 4.6 mmol/L (3.3-5.1); Sodium 135 mmol/L (135-145)
[2021-03-24] MEDS: 0.9 % Sodium Chloride 1,000 ML 999 ML IV ×2 (17:59→20:44)
[2021-03-24] MEDS: Insulin Lispro 100 UNIT/ML 3 ML VIAL 10 UNIT SUBCUT (17:59)
[2021-03-24] MEDS: Metoprolol Tartrate 5 MG/5 ML VIAL IVPUSH (17:59)
[2021-03-24] MEDS: ondansetron HCL 4 MG/2 ML VIAL IVPUSH (17:59)
[2021-03-24 19:27] LABS: Glucose, Whole Blood 267 mg/dL (60-115)
[2021-03-24 19:41] LABS: Appearance Urine CLEAR; Color Urine YELLOW; Glucose Urine UA NEG (NEG); Leukocyte Esterase Urine NEG (NEG); Nitrite Urine NEG (NEG); PH 5.5 (5.0-8.0); Specific Gravity - Urine 1.025 (1.005-1.025); UACC Culture Trigger NO; Urine Blood 3+ (NEG); Urine Ketones 5 MG/DL (NEG); Urine Protein 3+ MG/DL (NEG-TRACE)
[2021-03-24 19:53] LABS: Amorphous Sediment Urine 1+ /LPF; Mucus Urine TRACE /LPF; Squamous Epithelial Cell Urine TRACE /LPF; WBC Urine 0-2 /HPF (0-4)
[2021-03-24] MEDS: Morphine Sulfate 4 MG/ML CARTRIDGE IVPUSH (20:52)
== END 2021-03-24 22:45 | disposition home or self-care (01) ==
PROVIDERS: Emergency Provider Internal Medicine; PCP Internal Medicine Geriatric Medicine
DX: E10.8 Type 1 diabetes mellitus with unspecified complications (principal); R11.2 Nausea with vomiting, unspecified; R10.9 Unspecified abdominal pain; Z20.822 Contact with and (suspected) exposure to COVID-19; Z79.899 Other long term (current) drug therapy; Z96.41 Presence of insulin pump (external) (internal)
CPT/HCPCS: 36415; 74176; 80048; 80076; 81001; 82009; 82803; 82947; 83690; 85025; 87635; 93005; 96360; 96361; 96365; 96372; 96375; 99285; J2270; J2405

== ENCOUNTER → 2021-07-12 08:15 | Outpatient (BNVA) | payer MEDICAID, SELFPAY | PROVIDERS: PCP Internal Medicine Geriatric Medicine; Visit Provider Nurse Practitioner Gerontology | DX: E10.65 Type 1 diabetes mellitus with hyperglycemia (principal); E10.42 Type 1 diabetes mellitus with diabetic polyneuropathy; E10.21 Type 1 diabetes mellitus with diabetic nephropathy; E11.3299 Type 2 diabetes mellitus with mild nonproliferative diabetic retinopathy without macular edema, unspecified eye; E78.5 Hyperlipidemia, unspecified; Z79.4 Long term (current) use of insulin; Z96.41 Presence of insulin pump (external) (internal) | CPT/HCPCS: 82947; 83036 ==

== ENCOUNTER 2021-07-15 09:04 | Outpatient (REF) | payer MEDICAID, SELFPAY ==
[2021-07-15 11:08] LABS: Alanine Aminotransferase 42 U/L (0-40); Albumin Level 3.9 g/dL (3.5-5.0); Alkaline Phosphatase 86 U/L (39-117); Anion Gap 15 (12-20); Aspartate Amino Transferase 19 U/L (5-37); Bilirubin Total 0.4 mg/dL (0.0-1.0); Blood Urea Nitrogen 32 mg/dL (9-16); Calcium 9.2 mg/dL (8.4-10.2); Carbon Dioxide 24 mmol/L (22-29); Chloride 107 mmol/L (96-108); Cholesterol 135 mg/dL; Estimated Glomerular Filt Rate 23; Glucose Fasting 165 mg/dL (60-99); HDL Cholesterol 39 mg/dL; LDL Cholesterol Calculated 57 mg/dl; Potassium 4.8 mmol/L (3.3-5.1); Sodium 141 mmol/L (135-145); Total Protein 6.7 g/dL (6.5-8.0); Triglycerides 198 mg/dL
[2021-07-15 11:09] LABS: Vitamin D 25-OH Total 41.1 ng/mL (>30)
[2021-07-15 12:01] LABS: Creatinine Urine 135.65 mg/dL
[2021-07-16 12:36] LABS: LDL Cholesterol Direct 53 mg/dL (<100)
== END 2021-07-15 09:05 | disposition home or self-care (01) ==
LOC: HO.LAB 09:04
PROVIDERS: PCP Internal Medicine Geriatric Medicine; Visit Provider Nurse Practitioner Gerontology
DX: E10.65 Type 1 diabetes mellitus with hyperglycemia (principal); E55.9 Vitamin D deficiency, unspecified
CPT/HCPCS: 36415; 80053; 80061; 82043; 82306; 83721

== ENCOUNTER 2021-07-29 14:48 | Inpatient (IN) | payer MEDICAID, SELFPAY ==
[2021-07-29] VITALS (19 sets, daily range): BP systolic 109–216; BP diastolic 66–116; PULSE 78–124; RESP 17–24; TEMP 34.6–36.7; O2SAT 58–100; BMI 27.6
--- NOTE | ~2021-07-29 | CT_ITS ---
EXAMINATION: CT HEAD WITHOUT CONTRAST CLINICAL INFORMATION: Encephalopathy. Uncontrolled hypertension. COMPARISON: CT brain 07/29/2021 TECHNIQUE: Contiguous axial imaging was performed from the skull base to vertex without intravenous administration of contrast. This CT examination was performed using dose optimization techniques as appropriate, variously including the following: *Automated exposure control *Adjustment of mA and/or kV according to patient size (this includes techniques or standardized protocols for targeted exams where dose is matched to indication/reason for exam; i.e. extremities or head) *Use of iterative reconstruction technique DLP: 744 mGy-cm FINDINGS: There is no evidence of acute intracranial hemorrhage or territorial infarction. No abnormal mass effect or midline shift is seen. Chong to white matter differentiation is well preserved. No extra-axial fluid collections are identified. The ventricles are normal in size. There is no abnormal attenuation within the brain parenchyma. The osseous structures and soft tissues are normal. There is mucoperiosteal thickening involving the left sphenoid and right posterior ethmoid sinuses. Rest the paranasal sinuses are well-aerated. There is mild mucoperiosteal thickening involving bilateral mastoid sinuses. There is soft tissue mass in the left middle ear similar to previous study. CT/CT head/brain wo con IMPRESSION: No acute intracranial process seen. Likely left middle ear cholesteatoma with soft tissue mass similar to previous study. This likely chronic bilateral mastoid inflammatory changes. Most of the mastoid sinus is sclerosed.
--- NOTE | ~2021-07-29 | XR_ITS ---
EXAMINATION: PORTABLE CHEST 1 VIEW CLINICAL INFORMATION: line placement, OG placement . COMPARISON: 07/29/2021. TECHNIQUE: Portable frontal view of the chest was obtained. FINDINGS: Lungs remain hypoexpanded with patchy bilateral airspace disease again seen. Subtle air bronchograms present. I do not appreciate any significant effusion or pneumothorax. Right IJ central venous catheter tip overlying the distal superior vena cava. Endotracheal tube tip approximately 6 cm both paresh. Oral gastric tube below the diaphragm projecting over the stomach. No acute bony abnormality. XR/XR chest 1V IMPRESSION: Tubes and lines as described. No pneumothorax. Patchy bilateral worsening airspace disease.
--- NOTE | ~2021-07-29 | CT_ITS ---
EXAMINATION: CT BRAIN. CHEST. CLINICAL INFORMATION: Hypoxia. COMPARISON: None TECHNIQUE: 5 minutes thin axial and reformatted 2 mm thin sagittal and coronal images of brain were obtained. DLP 776. Chest one view. FINDINGS: Chest: The lungs are hyperexpanded diffuse multiple patchy opacities seen throughout both lungs consistent with infiltrates. There is no pleural effusion. The heart size and pulmonary vascularity is normal. Brain: There is acute intra-axial, extra-axial bleed, masses, collection or midline shift. There is no acute infarction evolution. A prominent cisterna magna is seen in the posterior fossa. The lateral ventricles are symmetrical in size and configuration without enlargement. Bone windows reveal no calvarial abnormality. Incidental finding of soft tissue left middle ear mass in the mesial tympanicum extending to the epitympanum likely cholesteatoma The paranasal sinuses are normal. There are bilateral calcified length cysts. CT/CT head/brain wo con IMPRESSION: No acute intracranial process seen. Left middle ear cholesteatoma. Unremarkable chest exam.
--- NOTE | 2021-07-29 15:07 | ECG_ITS ---
Test Reason : DYSPNEA Blood Pressure : / mmHG Vent. Rate : 119 BPM Atrial Rate : 119 BPM P-R Int : 148 ms QRS Dur : 100 ms QT Int : 326 ms P-R-T Axes : 039 080 020 degrees QTc Int : 458 ms Sinus tachycardia Otherwise normal ECG When compared with ECG of 24-MAR-2021 17:35, No significant changes seen Referred By: Isamar Mcdowell Electronically Signed By:NATALIE JOHNSON
--- NOTE | 2021-07-29 15:14 | ED_ITS ---
HPI - General Adult General Chief complaint: General Medical Stated complaint: ALTER MENTAL STATUS Time Seen by Provider: 07/29/21 15:06 Source: EMS Mode of arrival: EMS Limitations: altered mental status History of Present Illness HPI narrative: Patient comes to the emergency room via EMS. Patient has history blindness, type 1 diabetes, hypertension. According to the patient's family, they reported to EMS that yesterday the patient started becoming very aggressive with them which is not like him. Today, the patient was confused, still aggressive. Patient's partner told EMS that she did not call 911 yesterday or earlier today, because she was angry at the patient because of his behavior. When EMS arrived at the patient's house, patient was sitting down in a chair, hyperventilating, oxygen saturation 59% on room air. The oxygen saturation was rechecked several times, with good waveform, the O2 did not go above 60% on room air. Patient was placed on 15 L of oxygen. Patient is poor historian, patient is awake, alert, seems confused, answering some questions. On arrival, we tried weaning the pa tient off to 10 L with an OxyMask, patient's oxygen saturation dropped to the mid 80s, we had to place him back on non-rebreather, 15 L. Related Data Home Medications Medication Instructions Recorded Confirmed nortriptyline 50 mg capsule 50 mg PO BEDTIME 01/04/20 07/29/21 omeprazole 40 mg capsule,delayed 40 mg PO DAILY@0630 01/04/20 07/29/21 release insulin lispro 100 unit/mL 3 unit SUBCUT TIDAC 07/12/21 07/29/21 subcutaneous pen pen needle, diabetic 32 gauge x #50 ea 07/12/21 07/12/21/32 (BD Ultra-Fine Shannan Pen Needle) valsartan 80 mg tablet 80 mg PO DAILY 07/12/21 07/29/21 gabapentin 100 mg capsule 2 cap PO BID 07/29/21 07/29/21 hydralazine 25 mg tablet 1 tab PO TID 07/29/21 07/29/21 insulin glargine 100 unit/mL (3 20 unit SUBCUT BEDTIME 07/29/21 07/29/21 mL) subcutaneous pen (Lantus Solostar U-100 Insulin) metoprolol succinate 50 mg 1 tab PO DAILY 07/29/21 07/29/21 tablet,extended release 24 hr Previous Rx's Medication Instructions Recorded cholecalciferol (vitamin D3) 50 50 mcg PO DAILY 30 Days #30 cap 04/05/20 mcg (2,000 unit) capsule atorvastatin 80 mg tablet 80 mg PO DAILY #30 tab 12/12/20 ezetimibe 10 mg tablet (Zetia) 10 mg PO DAILY 90 Days #90 tab 07/05/21 Allergies Allergy/AdvReac Type Severity Reaction Status Date / Time No Known Allergies Allergy Verified 07/12/21 08:49 [No Known Allergies*] Review of Systems Review of Systems: Yes Unobtainable due to mental condition and Unobtainable due to mental status PMFSH Past Medical History Medical History Acid reflux Acute on chronic kidney failure Chronic kidney disease, stage 3 Diabetes type 1, uncontrolled 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 Diabetic visual loss, with retinopathy, associated with type 1 diabetes mellitus Essential hypertension Gastritis Hemangioma of liver Hyperglycemia due to type 1 diabetes mellitus Hypertension associated with diabetes Hypocalcemia Legally blind Polyneuropathy Sciatica Vitamin D deficiency Surgical History Hx of appendectomy Hx of circumcision Hx of endoscopy Hx of eye surgery Family History Family History Father Diabetes mellitus Mother Diabetes mellitus Maternal Grandfather Diabetes mellitus Maternal Grandmother Diabetes mellitus Social History Social History Household Members: Spouse and Children Household Members Other:: and girlfriend Housing: Apartment Do you presently have visiting nurse or other home services: No Alcohol intake: current Alcohol intake frequency: holidays/special occasions only Alcohol type: hard liquor Patient Tobacco Use Status: Former Tobacco user Second Hand Smoke Exposure: No Substance Use Type: Marijuana Advance Directives: No Advance Directives Information Provided: No service: No Current occupational status: disabled Physical Exam ED Vital Signs: Vital Signs - 24 hr 07/29/21 14:57 07/29/21 15:34 07/29/21 15:46 Pulse Rate 109 H 124 H Respiratory Rate 24 H 17 20 Blood Pressure 184/94 H 216/116 H Pulse Oximetry 94 99 07/29/21 16:36 07/29/21 16:43 07/29/21 16:44 Pulse Rate 117 H 117 H 117 H Respiratory Rate 20 20 20 Blood Pressure 208/112 H 215/116 H 215/116 H Pulse Oximetry 91 L BMI result Body Mass Index 27.6 Const Other: Appearance: Alert. Oriented, not answering questions appropriately Eyes: Bilateral eye cataracts, patient is legally blind ENT: Pharynx normal. Neck: Normal inspection. Neck supple. No lymph nodes noted. No crepitus CVS: Normal heart rate and rhythm. Pulses normal. Normal S1 and S2 Respiratory: Patient's oxygen saturation dropped significantly to the low 60s on room air, to the low 80s on 10 L. 95% on 15 L. patient has decreased breath sounds on the right side. Abdomen: Soft and nontender. No rigidity. No distention. Skin: Skin warm and dry. Normal skin color. Normal skin turgor. Extremities: No lower extremity edema. No Lacerations. No Rash Neuro: Oriented X 3. No motor deficit. No sensory deficit. Moving all extremities. No slurred speech. CN 2 through 12 grossly intact Psych: calm, cooperative, non combative Course Course Course Narrative: On arrival, blood pressure 216/116. Patient having significant respiratory distress. Patient giving 80 mg of IV Lasix, 1 in of nitropaste, patient is now on BiPAP. Oxygen saturation in the mid 90s, patient tolerating well the BiPAP. All of the labs are pending as well as imaging. Head CT pending. Patient's arterial blood gas shows a pH of 7.25, bicarb of 14. On arrival, blood glucose was >500. Patient is also in DKA Patient became very agitated, we were unable to redirect the patient, patient still has altered mental status. Patient trying to rip out his IV lines, patient removed the BiPAP, also with push-off people that were trying to supply him with oxygen via mask. Oxygen saturation dropped to the low 60s. Patient needed to be intubated. I discussed the patient with Dr. Chapa. Patient has both DKA and likely pulmonary edema due to severe hypertension. Patient does not seem to be fluid overloaded. However, the BNP is 2373, possible flash pulmonary edema Patient has history of cocaine use. If patient used cocaine this time, this may be pulmonary edema secondary to cocaine use, urine toxicology is pending. At this time, patient will be getting IV fluids at 50 mL/hour. Patient's potassium is 8.1. Patient was given calcium gluconate, already had 10 units of insulin, patient is also now on an insulin drip. Patient was intubated, patient had a large amount of vomit in the airway. Patient likely aspirated. Patient has been covered with Zosyn. At this time, 17:32, chest x-ray has been reviewed, read as diffuse multiple patchy opacities. The family did not report previously any URI symptoms. Patient's BNP is elevated. Patient has already been treated with antibiotics, Zosyn. It is still possible that patient has pulmonary edema, possible pneumonia. Dr. Chapa recommends gente hydration at this time rather than a bolus. Fluid rate will be increased gradually in the ICU. Patient has elevated lactic acid likely secondary to prolonged hypoxia Patient needs a central line. Patient cannot consent. Central line is in good place, no complications. I was able to get in touch with patient's partner Dali Velazquez, who is the patient's primary contact. Patient's partner made aware of the current situation. Procedures Central Line Placement Right IJ: Time Out Performed: Yes Patient Placed on Monitor/Pulse Ox: Yes MD Prep: mask, gown and gloves Central Line Prep: Chlorhexidine scrub Ultrasound Used for Placement: Yes Central Line Lumen Inserted: triple Post Procedure: sutured in place, good blood return, all ports aspirated, flushed, capped and sterile dressing applied Post Procedure X-Ray: tip of catheter in good position and no pneumothorax seen Patient Tolerated Procedure: well Complications: none Intubation Time out performed: Yes sedative: Etomidate Mg Given: 20 paralytic: Rocuronium Mg Given: 50 Laryngoscope: other (GlideScope) ET Tube Size: 8 ET Tube Uncuffed: No Tube Secured Depth (cm): 24 Tube Secured Location: lips Tube Placement Confirmation: visualized tube passing through cords, equal breath sounds bilaterally, no breath sounds over epigastrium and confirmation by capnometry Patient Tolerated Procedure: well Intubation Complications: none Medical Decision Making Lab Data Result diagrams: 07/29/21 15:09 07/29/21 15:12 Labs: Lab Results 07/29/21 07/29/21 07/29/21 Range/Units 15:09 15:09 15:09 WBC 13.9 H (4.8-10.8) X10*3/uL RBC 3.37 L D (4.60-5.80) X10*6/uL Hgb 10.1 L D (14.0-18.0) g/dl Hct 31.4 L D (42.0-52.0) % MCV 93.2 (80.0-98.0) fL MCH 30.0 (27.0-33.0) pg MCHC 32.2 (31.0-36.0) g/dl RDW 12.5 (11.0-16.0) % Plt Count 176 (160-400) X10*3/uL MPV 11.6 (9.4-12.4) fL Immature Gran % (Auto) 0.4 (0.0-0.4) % Neut % (Auto) 85.0 H (45-73) % Lymph % (Auto) 8.7 L (20-40) % Barton % (Auto) 5.8 (2-11) % Eos % (Auto) 0.0 (0-4) % Baso % (Auto) 0.1 (0-2) % Lymph # (Auto) 1.2 (1.2-4.9) X10*3/uL Barton # (Auto) 0.8 (0.1-1.2) X10*3/uL Eos # (Auto) 0.0 (0.0-0.4) X10*3/uL Baso # (Auto) 0.0 (0.0-0.2) X10*3/uL Abs Immat Gran (auto) 0.06 H (0.00-0.03) X10*3/uL Absolute Neuts (auto) 11.8 H (2.0-8.3) x10*3/uL Absolute Nucleated RBC 0.000 (0.0-0.012) X10*3/uL Nucleated RBC % (auto) 0.0 (0.0-0.2) /100WBC PT 13.1 H (9.9-13.0) SEC INR 1.2 H (0.9-1.1) D-Dimer High Sensitivty 700 NG/ML O2 Saturation % ABG pH at Pt Temp (7.35-7.45) ABG pCO2 at Pt Temp (32-45) mmHg ABG pO2 at Pt Temp (83-108) mmHg ABG HCO3 (22-26) mmol/L ABG Base Excess (Actual) mmol/L Sodium Cancelled Potassium Cancelled Chloride Cancelled Carbon Dioxide Cancelled Anion Gap Cancelled BUN Cancelled Creatinine Cancelled Estim Creat Clear Calc Cancelled Estimated GFR Cancelled Random Glucose Cancelled Lactic Acid (0.5-2.0) mmol/L Calcium Cancelled Magnesium Cancelled Total Bilirubin Cancelled Direct Bilirubin Cancelled AST Cancelled ALT Cancelled Alkaline Phosphatase Cancelled Troponin I High Sens (<3.5-35.0) ng/L B-Natriuretic Peptide (<100) pg/mL Total Protein Cancelled Albumin Cancelled Lipase Cancelled Ethyl Alcohol mg/dL COVID-19 ([facility]) (Negative) COVID-19 Clin Com 07/29/21 07/29/21 07/29/21 Range/Units 15:09 15:12 15:12 WBC (4.8-10.8) X10*3/uL RBC (4.60-5.80) X10*6/uL Hgb (14.0-18.0) g/dl Hct (42.0-52.0) % MCV (80.0-98.0) fL MCH (27.0-33.0) pg MCHC (31.0-36.0) g/dl RDW (11.0-16.0) % Plt Count (160-400) X10*3/uL MPV (9.4-12.4) fL Immature Gran % (Auto) (0.0-0.4) % Neut % (Auto) (45-73) % Lymph % (Auto) (20-40) % Barton % (Auto) (2-11) % Eos % (Auto) (0-4) % Baso % (Auto) (0-2) % Lymph # (Auto) (1.2-4.9) X10*3/uL Barton # (Auto) (0.1-1.2) X10*3/uL Eos # (Auto) (0.0-0.4) X10*3/uL Baso # (Auto) (0.0-0.2) X10*3/uL Abs Immat Gran (auto) (0.00-0.03) X10*3/uL Absolute Neuts (auto) (2.0-8.3) x10*3/uL Absolute Nucleated RBC (0.0-0.012) X10*3/uL Nucleated RBC % (auto) (0.0-0.2) /100WBC PT (9.9-13.0) SEC INR (0.9-1.1) D-Dimer High Sensitivty NG/ML O2 Saturation % ABG pH at Pt Temp (7.35-7.45) ABG pCO2 at Pt Temp (32-45) mmHg ABG pO2 at Pt Temp (83-108) mmHg ABG HCO3 (22-26) mmol/L ABG Base Excess (Actual) mmol/L Sodium 125 L Potassium 8.1 H* D Chloride 93 L Carbon Dioxide 14 L Anion Gap 26 H BUN 102 H D Creatinine 6.13 H* Estim Creat Clear Calc 16.3 Estimated GFR 10 Random Glucose 1057 H* Lactic Acid 7.9 H* (0.5-2.0) mmol/L Calcium 8.3 L D Magnesium 2.3 Total Bilirubin 0.4 Direct Bilirubin 0.2 AST 23 ALT 30 Alkaline Phosphatase 85 Troponin I High Sens (<3.5-35.0) ng/L B-Natriuretic Peptide (<100) pg/mL Total Protein 6.2 L Albumin 3.6 Lipase 24 Ethyl Alcohol mg/dL COVID-19 ([facility]) Negative (Negative) COVID-19 Clin Com See Note 07/29/21 07/29/21 07/29/21 Range/Units 15:12 15:12 15:22 WBC (4.8-10.8) X10*3/uL RBC (4.60-5.80) X10*6/uL Hgb (14.0-18.0) g/dl Hct (42.0-52.0) % MCV (80.0-98.0) fL MCH (27.0-33.0) pg MCHC (31.0-36.0) g/dl RDW (11.0-16.0) % Plt Count (160-400) X10*3/uL MPV (9.4-12.4) fL Immature Gran % (Auto) (0.0-0.4) % Neut % (Auto) (45-73) % Lymph % (Auto) (20-40) % Barton % (Auto) (2-11) % Eos % (Auto) (0-4) % Baso % (Auto) (0-2) % Lymph # (Auto) (1.2-4.9) X10*3/uL Barton # (Auto) (0.1-1.2) X10*3/uL Eos # (Auto) (0.0-0.4) X10*3/uL Baso # (Auto) (0.0-0.2) X10*3/uL Abs Immat Gran (auto) (0.00-0.03) X10*3/uL Absolute Neuts (auto) (2.0-8.3) x10*3/uL Absolute Nucleated RBC (0.0-0.012) X10*3/uL Nucleated RBC % (auto) (0.0-0.2) /100WBC PT (9.9-13.0) SEC INR (0.9-1.1) D-Dimer High Sensitivty NG/ML O2 Saturation 91.0 % ABG pH at Pt Temp 7.25 L (7.35-7.45) ABG pCO2 at Pt Temp 32 (32-45) mmHg ABG pO2 at Pt Temp 74 L (83-108) mmHg ABG HCO3 14 L (22-26) mmol/L ABG Base Excess (Actual) -11.3 mmol/L Sodium Potassium Chloride Carbon Dioxide Anion Gap BUN Creatinine Estim Creat Clear Calc Estimated GFR Random Glucose Lactic Acid (0.5-2.0) mmol/L Calcium Magnesium Total Bilirubin Direct Bilirubin AST ALT Alkaline Phosphatase Troponin I High Sens 98.7 H (<3.5-35.0) ng/L B-Natriuretic Peptide 2373 H (<100) pg/mL Total Protein Albumin Lipase Ethyl Alcohol < 10 mg/dL COVID-19 ([facility]) (Negative) COVID-19 Clin Com Imaging Data CT scan - head: Radiologist's impression: FINDINGS: Chest: The lungs are hyperexpanded diffuse multiple patchy opacities seen throughout both lungs consistent with infiltrates. There is no pleural effusion. The heart size and pulmonary vascularity is normal. Brain: There is acute intra-axial, extra-axial bleed, masses, collection or midline shift. There is no acute infarction evolution. A prominent cisterna magna is seen in the posterior fossa. The lateral ventricles are symmetrical in size and configuration without enlargement. Bone windows reveal no calvarial abnormality. Incidental finding of soft tissue left middle ear mass in the mesial tympanicum extending to the epitympanum likely cholesteatoma The paranasal sinuses are normal. There are bilateral calcified length cysts.? CT/CT head/brain wo con IMPRESSION: No acute intracranial process seen. ? Left middle ear cholesteatoma. ? Unremarkable chest exam. Chest x-ray: Radiologist's impression: FINDINGS: Chest: The lungs are hyperexpanded diffuse multiple patchy opacities seen throughout both lungs consistent with infiltrates. There is no pleural effusion. The heart size and pulmonary vascularity is normal. Brain: There is acute intra-axial, extra-axial bleed, masses, collection or midline shift. There is no acute infarction evolution. A prominent cisterna magna is seen in the posterior fossa. The lateral ventricles are symmetrical in size and configuration without enlargement. Bone windows reveal no calvarial abnormality. Incidental finding of soft tissue left middle ear mass in the mesial tympanicum extending to the epitympanum likely cholesteatoma The paranasal sinuses are normal. There are bilateral calcified length cysts.? XR/XR chest 1V IMPRESSION: No acute intracranial process seen. ? Left middle ear cholesteatoma. ? Unremarkable chest exam. Critical Care Time Critical Care Time Critical Care Time: Yes Total Critical Care Time: 120 Attestation: I have personally provided critical care time. Time includes review of lab data, radiology results, discussion with consultants, and monitoring for potential decompensation. Intervention performed as documented. Discharge Plan Discharge Clinical Impression: Respiratory failure, Pulmonary edema, Acute hyperkalemia, Acute on chronic kidney failure, Hypertensive emergency Patient Disposition: Admitted As Inpatient
[2021-07-29] MEDS: 0.9 % Sodium Chloride 1,000 ML 999 ML IVCONT (15:17)
[2021-07-29] MEDS: Insulin Regular, Human 100 UNIT/ML 3 ML VIAL 10 UNIT IVPUSH (15:17)
[2021-07-29 15:30] LABS: ABG Base Excess -11.3 mmol/L; ABG HCO3 14 mmol/L (22-26); ABG pCO2 32 mmHg (32-45); ABG pH 7.25 (7.35-7.45); ABG pO2 74 mmHg (83-108)
[2021-07-29 15:31] LABS: MANUAL DIFF FLAG NO
[2021-07-29 15:32] LABS: ABG Refer to POC result
[2021-07-29 15:34] LABS: Basophils Percent Auto 0.1 % (0-2); Hematocrit 31.4 % (42.0-52.0); Hemoglobin 10.1 g/dl (14.0-18.0); Imm Gran Abs Auto 0.06 X10*3/uL (0.00-0.03); Imm Gran Pct Auto 0.4 % (0.0-0.4); Lymphocytes Absolute Auto 1.2 X10*3/uL (1.2-4.9); Lymphocytes Percent Auto 8.7 % (20-40); Mean Corpuscular HGB Conc 32.2 g/dl (31.0-36.0); Mean Corpuscular Volume 93.2 fL (80.0-98.0); Mean Platelet Volume 11.6 fL (9.4-12.4); Monocytes Absolute Auto 0.8 X10*3/uL (0.1-1.2); Monocytes Percent Auto 5.8 % (2-11); Neutrophils Absolute Auto 11.8 x10*3/uL (2.0-8.3); Platelet Count 176 X10*3/uL (160-400); Red Blood Count 3.37 X10*6/uL (4.60-5.80); Red Cell Distribution Width 12.5 % (11.0-16.0); White Blood Count 13.9 X10*3/uL (4.8-10.8)
[2021-07-29 15:42] LABS: INTERNATIONAL NORM RATIO 1.2 (0.9-1.1); Prothrombin Time 13.1 SEC (9.9-13.0)
[2021-07-29 15:44] LABS: D Dimer High Sensitivity 700 NG/ML
[2021-07-29] MEDS: Nitroglycerin 2 % Oint 1 GM Packet 1 INCH TRANSDERMA (15:45)
[2021-07-29] MEDS: Furosemide 100 MG/10 ML VIAL 80 MG IVPUSH (15:45)
[2021-07-29 15:50] LABS: Ethanol < 10 mg/dL
[2021-07-29 15:56] LABS: B Type Natriuretic Peptide 2373 pg/mL (<100); Troponin-I High Sensitivity 98.7 ng/L (<3.5-35.0)
--- NOTE | 2021-07-29 16:19 | PC.NURSE ---
pt became more alert, took BiPap mask off. Dr. parra at bedside as pt not withstanding BiPap or NRB. pt attempting to jump out of bed. at 1606 20mg Etomidate given and 50 mg rocuronium bromide given at 1606 at 1611 size 8 tube placed at 24 at the lip. respiratory at bedside, ICU MD at bedside.
[2021-07-29 16:29] LABS: Creatinine Clr Calc Pharmacy 16.3; Estimated Glomerular Filt Rate 10; Glucose Random 1057 mg/dL (60-115); Lactic Acid 7.9 mmol/L (0.5-2.0)
[2021-07-29 16:30] LABS: Anion Gap 26 (12-20); Blood Urea Nitrogen 102 mg/dL (9-16); Calcium 8.3 mg/dL (8.4-10.2); Carbon Dioxide 14 mmol/L (22-29); Chloride 93 mmol/L (96-108); Potassium 8.1 mmol/L (3.3-5.1); Sodium 125 mmol/L (135-145)
--- NOTE | 2021-07-29 16:30 | PC.NURSE ---
SOFT RESTRAINTS IN PLACE AT THIS TIME PT RESTLESS, AGITATED, PULLING AT TUBES, ATTEMPTING TO GET UP. PT NEEDING TO BE INTUBATED. LIGHT SEDATION RESPONSE TO PROPOFOL. PT RESPONDS TO LIGHT STIMULI UNDER PROPOFOL AND ATTEMPTS TO PULL OUT TUBES.
[2021-07-29] MEDS: propofoL 1,000 MG/100 ML VIAL 13.96 MG IVCONT (16:36)
[2021-07-29] MEDS: Rocuronium Bromide 50 MG/5 ML VIAL IVPUSH (16:41)
[2021-07-29] MEDS: Etomidate 20 MG/10 ML VIAL IVPUSH (16:41)
[2021-07-29 16:45] LABS: Alanine Aminotransferase 30 U/L (0-40); Albumin Level 3.6 g/dL (3.5-5.0); Alkaline Phosphatase 85 U/L (39-117); Aspartate Amino Transferase 23 U/L (5-37); Bilirubin Direct 0.2 mg/dL (0.0-0.5); Bilirubin Total 0.4 mg/dL (0.0-1.0); Lipase 24 U/L (8-78); Magnesium 2.3 mg/dL (1.6-2.6); Total Protein 6.2 g/dL (6.5-8.0)
[2021-07-29] MEDS: Piperacillin Sodium/Tazobactam 3.375 GM in 0.9 % Sodium Chloride 50 ML IV (16:49)
[2021-07-29] MEDS: Midazolam HCl/PF 2 MG/2 ML VIAL 4 MG IVPUSH ×2 (16:55→18:49)
--- NOTE | 2021-07-29 16:56 | PM.CCHP ---
History of Present Illness Date of Service: 07/29/21 Attending physician on admission: Helene Chapa Chief Complaint: Altered mental status and acute hypoxic respiratory failure 35-year-old with history of type 1 diabetes mellitus previous episodes of diabetic ketoacidosis and also known polysubstance abuser presents with altered mental status respiratory distress and acute hypoxic respiratory failure clearly in an agitated state required emergent intubation was acutely hypertensive with what appears to be a a picture of either severe diffuse bilateral in infiltrates with consolidation versus pulmonary edema and that needs to be differentiated between noncardiogenic cardiogenic Initially blood pressure was over 220 systolic sinus tachycardia no acute ST-T changes on his EKG bedside echo showing normal LV and RV systolic function without segmental wall motion abnormality no primary valve or pericardial disease and the patient appears to be dry no edema neck veins flat palpable bilateral carotid upstrokes evidence of acute on chronic renal failure with marked hyperkalemia and hyponatremia which I am sure is a pseudo hyponatremia based on the glucose of 1000 Profound positive anion gap metabolic acidosis lactate accounting for at least 8 out of the 11 of negative base excess that we see the ketoacidosis and/or renal failure probably accounting for the rest Based on this drug screen is is pending I prefer not to to go ahead and treat in case cocaine is playing a role here in air with in relation to his blood pressure and he definitely needs a central line so we could administer fluids and not worsen the pulmonary edema based on the the the CVP Giving him is initial bolus of insulin starting insulin drip but being very sparing with his IV fluids until we can determine the level of his CVP Review of Systems Review of Systems: Yes Unobtainable due to mental status PMFSH Past Medical History Medical History Acid reflux Acute on chronic kidney failure Chronic kidney disease, stage 3 Diabetes type 1, uncontrolled 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 Diabetic visual loss, with retinopathy, associated with type 1 diabetes mellitus Essential hypertension Gastritis Hemangioma of liver Hyperglycemia due to type 1 diabetes mellitus Hypertension associated with diabetes Hypocalcemia Legally blind Polyneuropathy Sciatica Vitamin D deficiency Family History Family History Father Diabetes mellitus Mother Diabetes mellitus Maternal Grandfather Diabetes mellitus Maternal Grandmother Diabetes mellitus Surgical History Surgical History Hx of appendectomy Hx of circumcision Hx of endoscopy Hx of eye surgery Social History Social History Household Members: Spouse and Children Household Members Other:: and girlfriend Housing: Apartment Do you presently have visiting nurse or other home services: No Alcohol intake: current Alcohol intake frequency: holidays/special occasions only Alcohol type: hard liquor Patient Tobacco Use Status: Former Tobacco user Second Hand Smoke Exposure: No Substance Use Type: Marijuana Advance Directives: No Advance Directives Information Provided: No service: No Current occupational status: disabled Meds Allergies Allergy/AdvReac Type Severity Reaction Status Date / Time No Known Allergies Allergy Verified 07/12/21 08:49 [No Known Allergies*] Active Medications: Current Medications Dextrose (Dextrose 50 % 25 Gm/50 Ml Syringe) 25 gm IVPUSH Q30M PRN PRN Reason: BG < 70 Calcium Gluconate (Calcium Gluconate) 2 gm in 100 mls @ 50 mls/hr IV ONCE ONE Stop: 07/29/21 18:15 Insulin Human Regular (Myxredlin) 100 unit in 100 mls @ 8 mls/hr IVCONT .[id number] OKSANA; Protocol Propofol (Diprivan) 1,000 mg in 100 mls @ 0 mls/hr IVCONT .Q0M OKSANA; Protocol Last Titration: 07/29/21 16:43 Dose: 35 mcg/kg/min, 16.29 mls/hr Documented by: Sodium Chloride (Ns) 1,000 mls @ 50 mls/hr IVCONT .Q20H OKSANA Piperacillin Sod/Tazobactam (Sod 3.375 gm/ Sodium Chloride) 50 mls @ 100 mls/hr IV ONCE ONE Stop: 07/29/21 17:09 Last Admin: 07/29/21 16:49 Dose: 100 mls/hr Documented by: Home Medications Medication Instructions Recorded Confirmed Last Taken Type nortriptyline 50 mg capsule 50 mg PO BEDTIME 01/04/20 01/14/21 06/08/20 History omeprazole 40 mg capsule,delayed 40 mg PO DAILY@0630 01/04/20 01/14/21 06/08/20 History release sertraline 100 mg tablet 100 mg PO DAILY 03/28/20 01/14/2106/08/21 History insulin glargine 100 unit/mL (3 20 unit SUBCUT BEDTIME ml 07/12/21 07/12/21 Unknown History mL) subcutaneous pen (Lantus Solostar U-100 Insulin) insulin lispro 100 unit/mL 5 unit SUBCUT 07/12/21 07/12/21 Unknown History subcutaneous pen pen needle, diabetic 32 gauge x #50 ea 07/12/21 07/12/21 Unknown History (BD Ultra-Fine Shannan Pen Needle) valsartan 80 mg tablet 80 mg PO DAILY 07/12/21 07/12/21 Unknown History Physical Exam Vital Signs: Vital Signs: Last Vital Signs Pulse 117 H 07/29/21 16:44 Resp 20 07/29/21 16:44 BP 215/116 H 07/29/21 16:44 Pulse Ox 91 L 07/29/21 16:44 Oxygen Flow Rate 15 07/29/21 14:57 BMI result Body Mass Index 27.6 Acute marked hypertension with altered mental status but grossly normal head CT scan Bedside echo with class 1 LV and RV function Neck veins are flat Scattered bilateral coarse rales and it is pretty clear that the patient also is aspirating Abdomen is distended no organomegaly Several cuts on his lower extremities but no evidence of cellulitis no evidence of livedo Results Labs CBC and Chem 7: 07/29/21 15:09 07/29/21 15:12 Labs: Laboratory Results - last 24 hr 07/29/21 07/29/21 07/29/21 15:09 15:09 15:09 MCV 93.2 MCH 30.0 MCHC 32.2 RDW 12.5 Plt Count 176 MPV 11.6 Immature Gran % (Auto) 0.4 Neut % (Auto) 85.0 H Lymph % (Auto) 8.7 L Rains % (Auto) 5.8 Eos % (Auto) 0.0 Baso % (Auto) 0.1 Lymph # (Auto) 1.2 Rains # (Auto) 0.8 Eos # (Auto) 0.0 Baso # (Auto) 0.0 Abs Immat Gran (auto) 0.06 H Absolute Neuts (auto) 11.8 H Absolute Nucleated RBC 0.000 Nucleated RBC % (auto) 0.0 PT 13.1 H INR 1.2 H D-Dimer High Sensitivty 700 O2 Saturation ABG pH at Pt Temp ABG pCO2 at Pt Temp ABG pO2 at Pt Temp ABG HCO3 ABG Base Excess (Actual) Anion Gap Cancelled Estim Creat Clear Calc Cancelled Estimated GFR Cancelled Random Glucose Cancelled Lactic Acid Calcium Cancelled Magnesium Cancelled Total Bilirubin Cancelled Direct Bilirubin Cancelled AST Cancelled ALT Cancelled Alkaline Phosphatase Cancelled Troponin I High Sens B-Natriuretic Peptide Total Protein Cancelled Albumin Cancelled Lipase Cancelled Ethyl Alcohol 07/29/21 07/29/21 07/29/21 15:12 15:12 15:12 MCV MCH MCHC RDW Plt Count MPV Immature Gran % (Auto) Neut % (Auto) Lymph % (Auto) Rains % (Auto) Eos % (Auto) Baso % (Auto) Lymph # (Auto) Rains # (Auto) Eos # (Auto) Baso # (Auto) Abs Immat Gran (auto) Absolute Neuts (auto) Absolute Nucleated RBC Nucleated RBC % (auto) PT INR D-Dimer High Sensitivty O2 Saturation ABG pH at Pt Temp ABG pCO2 at Pt Temp ABG pO2 at Pt Temp ABG HCO3 ABG Base Excess (Actual) Anion Gap 26 H Estim Creat Clear Calc 16.3 Estimated GFR 10 Random Glucose 1057 H* Lactic Acid 7.9 H* Calcium 8.3 L D Magnesium 2.3 Total Bilirubin 0.4 Direct Bilirubin 0.2 AST 23 ALT 30 Alkaline Phosphatase 85 Troponin I High Sens 98.7 H B-Natriuretic Peptide 2373 H Total Protein 6.2 L Albumin 3.6 Lipase 24 Ethyl Alcohol 07/29/21 07/29/21 15:12 15:22 MCV MCH MCHC RDW Plt Count MPV Immature Gran % (Auto) Neut % (Auto) Lymph % (Auto) Rains % (Auto) Eos % (Auto) Baso % (Auto) Lymph # (Auto) Rains # (Auto) Eos # (Auto) Baso # (Auto) Abs Immat Gran (auto) Absolute Neuts (auto) Absolute Nucleated RBC Nucleated RBC % (auto) PT INR D-Dimer High Sensitivty O2 Saturation 91.0 ABG pH at Pt Temp 7.25 L ABG pCO2 at Pt Temp 32 ABG pO2 at Pt Temp 74 L ABG HCO3 14 L ABG Base Excess (Actual) -11.3 Anion Gap Estim Creat Clear Calc Estimated GFR Random Glucose Lactic Acid Calcium Magnesium Total Bilirubin Direct Bilirubin AST ALT Alkaline Phosphatase Troponin I High Sens B-Natriuretic Peptide Total Protein Albumin Lipase Ethyl Alcohol < 10 Imaging Radiologist's Impressions: Impressions Chest X-Ray 07/29/21 15:30 IMPRESSION: No acute intracranial process seen. Left middle ear cholesteatoma. Unremarkable chest exam. Head CT 07/29/21 15:30 IMPRESSION: No acute intracranial process seen. Left middle ear cholesteatoma. Unremarkable chest exam. Assessment and Plan (1) Hypertensive urgency: Status: Acute (2) Acute kidney injury superimposed on CKD: Status: Acute (3) Abdominal pain: Status: Acute (4) Pancreatitis: Qualifiers: Chronicity: acute Pancreatitis type: unspecified pancreatitis type Acute pancreatitis complication: no infection or necrosis Qualified Code(s): K85.90 - Acute pancreatitis without necrosis or infection, unspecified Status: Acute (5) Vitamin D deficiency: Status: Acute (6) Hypocalcemia: Status: Acute (7) Background diabetic retinopathy associated with type 2 diabetes mellitus: Status: Acute (8) 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: Status: Acute (9) Diabetes type 1, uncontrolled: Status: Acute (10) Acid reflux: Status: Acute (11) Diabetic polyneuropathy associated with type 1 diabetes mellitus: Status: Acute (12) Hyperlipidemia LDL goal <70: Status: Acute (13) Diabetic ketoacidosis: Status: Acute (14) Lactic acidosis due to diabetes mellitus: Status: Acute (15) Hyperkalemia: Status: Acute (16) Hyponatremia: Status: Acute Plan At the plan is to obtain central venous pressure from a line and not specifically treat the blood pressure at this point just simply support respiration and 1st determine whether not some of this issue is is based on cocaine so that we do not know create a worsening of his problem and I do not believe that this is a septic manifestation other than the possibility of COVID-19 and that resulted yet it pending so I can not say for sure that it isn't a viral form of sepsis in a creating some of that lactate rather than just simply the diabetic ketoacidosis but we will start the insulin bolus insulin drip and give him at least 1 amp of calcium gluconate to offset the possibility of of a true and dangerous level of hyperkalemia
[2021-07-29 17:00] LABS: COVID-19 Test Negative (Negative)
[2021-07-29 17:23] LABS: Reflex Lactate? Lactic Acid Added
[2021-07-29] MEDS: Midazolam HCl/NS 50 MG/50 ML PLAST..BAG IVCONT (17:24)
[2021-07-29 18:07] LABS: Amphetamine Screen Urine Not Detected (Not Detect); Barbiturates, Urine Not Detected (Not Detect); Benzodiazepines Screen Urine Not Detected (Not Detect); Cannabinoid Screen Urine Not Detected (Not Detect); Cocaine Screen Urine Not Detected (Not Detect); Fentanyl, urine POSITIVE (Not Detect); Opiate Screen Urine Not Detected (Not Detect); Phencyclidine Screen Urine Not Detected (Not Detect)
[2021-07-29] MEDS: propofoL 1,000 MG/100 ML VIAL 23.27 MG IVCONT ×2 (18:14→20:10)
[2021-07-29] MEDS: Calcium Gluconate/NaCl,Iso-Osm 2 GM/100 ML PLAST..BAG IV (18:41)
[2021-07-29] MEDS: 0.9 % Sodium Chloride 1,000 ML 50 ML IVCONT (18:42)
[2021-07-29] MEDS: Insulin Regular/NS 100 UNIT/100 ML PLAST..BAG 8 UNIT IVCONT (19:01)
--- NOTE | 2021-07-29 19:04 | PHA.MEDREC ---
Pharmacy Consult ? Medication Reconciliation Pharmacy has completed the medication reconciliation. Used supervisor [employer] services to speak to pt's significant other Dali on the phone, she knew most of his medications but noted that he got a lot of new ones recently. Clarified a dose decrease on his gabapentin as well as the insulin he's using because they haven't gotten his pump in the mail yet. She was unsure about the atorvastatin but based on most recent claim history it looks like he has picked that up. She was unsure of when he last used his medications but guess Thursday morning.
--- NOTE | 2021-07-29 19:20 | PC.NURSE ---
late entry 1630 duplicate dose of propofol ordered - one was discontinued. pt under light sedation, did not stop propofol on pt to change out to new order given the orders in the MAR were the same. one order placed by dr parra, the other by dr weaver. MAR reflects that there are two doses of propofol gtt running, there is only one order of propofol running at 50 mcg/kg/hr (max gtt rate). unable to stop discontinued order as it reflects in the MAR that all propofol was stopped.
[2021-07-29 19:56] LABS: Glucose, Whole Blood > 600 mg/dL (60-115)
--- NOTE | 2021-07-29 19:59 | PC.NURSE ---
report given to Rashida COOK RN
[2021-07-29 20:19] LABS: Venous Blood Gas Refer to POC result
[2021-07-29 20:24] LABS: Reflex Lactate? 2 Y
[2021-07-29 20:29] LABS: VBG Base Excess -4.3 mmol/L; VBG HCO3 22 mmol/L (22-26); VBG pCO2 47 mmHg; VBG pH 7.27 (7.32-7.43); VBG pO2 46 mmHg
[2021-07-29 20:44] LABS: Anion Gap 17 (12-20); Blood Urea Nitrogen 104 mg/dL (9-16); Calcium 8.4 mg/dL (8.4-10.2); Carbon Dioxide 21 mmol/L (22-29); Chloride 98 mmol/L (96-108); Creatinine Clr Calc Pharmacy 17.1; Estimated Glomerular Filt Rate 11; Glucose Random 693 mg/dL (60-115); Magnesium 2.4 mg/dL (1.6-2.6); Phosphorus 2.4 mg/dL (2.7-4.5); Potassium 5.8 mmol/L (3.3-5.1); Sodium 130 mmol/L (135-145)
[2021-07-29 20:50] LABS: B Type Natriuretic Peptide 1669 pg/mL (<100)
[2021-07-29 22:06] LABS: Glucose, Whole Blood 553 mg/dL (60-115)
[2021-07-29 22:06] LABS: Glucose, Whole Blood 381 mg/dL (60-115)
[2021-07-29 22:15] LABS: Reflex Lactate? Lactic Acid Added
[2021-07-29 23:08] LABS: ~Lactic Acid-LAB USE ONLY 2.4 mmol/L (0.5-2.0)
[2021-07-29 23:18] LABS: Glucose, Whole Blood 253 mg/dL (60-115)
[2021-07-29 23:20] LABS: Lactic Acid 2.7 mmol/L (0.5-2.0)
[2021-07-30] VITALS (30 sets, daily range): BP systolic 107–218; BP diastolic 64–124; PULSE 84–135; RESP 14–16; TEMP 34.4–38.1; O2SAT 93–100; BMI 28.2
[2021-07-30 00:01] LABS: Glucose, Whole Blood 227 mg/dL (60-115)
[2021-07-30] MEDS: propofoL 1,000 MG/100 ML VIAL 23.27 MG IVCONT ×7 (00:01→22:12)
[2021-07-30] MEDS: Chlorhexidine Gluc Oral Rinse 15 ML MOUTHWASH BUCCAL ×3 (00:03→17:22)
[2021-07-30 00:40] LABS: Venous Blood Gas Refer to POC result
[2021-07-30 00:42] LABS: VBG Base Excess -1.2 mmol/L; VBG HCO3 22 mmol/L (22-26); VBG pCO2 32 mmHg; VBG pH 7.44 (7.32-7.43); VBG pO2 54 mmHg
[2021-07-30 00:45] LABS: Reflex Lactate? 2 Y
[2021-07-30 00:58] LABS: Glucose, Whole Blood 150 mg/dL (60-115)
[2021-07-30 00:59] LABS: Anion Gap 17 (12-20); Blood Urea Nitrogen 101 mg/dL (9-16); Calcium 8.8 mg/dL (8.4-10.2); Carbon Dioxide 22 mmol/L (22-29); Chloride 104 mmol/L (96-108); Creatinine Clr Calc Pharmacy 18.4; Estimated Glomerular Filt Rate 12; Glucose Random 184 mg/dL (60-115); Magnesium 2.1 mg/dL (1.6-2.6); Phosphorus 3.8 mg/dL (2.7-4.5); Potassium 4.2 mmol/L (3.3-5.1); Sodium 139 mmol/L (135-145)
[2021-07-30 01:02] LABS: Glucose, Whole Blood > 600 mg/dL (60-115)
[2021-07-30 01:02] LABS: Glucose, Whole Blood > 600 mg/dL (60-115)
[2021-07-30 01:02] LABS: Glucose, Whole Blood > 600 mg/dL (60-115)
[2021-07-30] MEDS: Dextrose 5 % and 0.45 % NaCl 1,000 ML 50 ML IVCONT (01:06)
[2021-07-30 01:24] LABS: ~Lactic Acid-LAB USE ONLY 1.6 mmol/L (0.5-2.0)
[2021-07-30] MEDS: KCl 20 mEq in 5% Dex/0.45% Sod 20 MEQ/1,000 ML IV.SOLN 150 MEQ IVCONT ×4 (01:47→21:58)
[2021-07-30 02:02] LABS: Glucose, Whole Blood 133 mg/dL (60-115)
[2021-07-30 03:12] LABS: Glucose, Whole Blood 119 mg/dL (60-115)
[2021-07-30 04:16] LABS: Glucose, Whole Blood 99 mg/dL (60-115)
[2021-07-30 05:14] LABS: Glucose, Whole Blood 109 mg/dL (60-115)
[2021-07-30 05:27] LABS: VBG Base Excess 0.8 mmol/L; VBG HCO3 25 mmol/L (22-26); VBG pCO2 40 mmHg; VBG pO2 62 mmHg
[2021-07-30 05:30] LABS: MANUAL DIFF FLAG NO
[2021-07-30 05:36] LABS: Basophils Percent Auto 0.4 % (0-2); Eosinophils Absolute Auto 0.1 X10*3/uL (0.0-0.4); Eosinophils Percent Auto 0.9 % (0-4); Hematocrit 25.4 % (42.0-52.0); Hemoglobin 8.6 g/dl (14.0-18.0); Imm Gran Abs Auto 0.05 X10*3/uL (0.00-0.03); Imm Gran Pct Auto 0.4 % (0.0-0.4); Lymphocytes Absolute Auto 2.1 X10*3/uL (1.2-4.9); Lymphocytes Percent Auto 18.6 % (20-40); Mean Corpuscular HGB Conc 33.9 g/dl (31.0-36.0); Mean Corpuscular Hemoglobin 29.7 pg (27.0-33.0); Mean Corpuscular Volume 87.6 fL (80.0-98.0); Mean Platelet Volume 10.5 fL (9.4-12.4); Monocytes Absolute Auto 0.8 X10*3/uL (0.1-1.2); Monocytes Percent Auto 6.8 % (2-11); Neutrophils Absolute Auto 8.3 x10*3/uL (2.0-8.3); Neutrophils Percent Auto 72.9 % (45-73); Platelet Count 152 X10*3/uL (160-400); Red Cell Distribution Width 12.3 % (11.0-16.0); White Blood Count 11.4 X10*3/uL (4.8-10.8)
[2021-07-30 05:45] LABS: Venous Blood Gas Refer to POC result
[2021-07-30 05:53] LABS: Anion Gap 15 (12-20); Blood Urea Nitrogen 99 mg/dL (9-16); Calcium 8.6 mg/dL (8.4-10.2); Carbon Dioxide 25 mmol/L (22-29); Chloride 107 mmol/L (96-108); Creatinine Clr Calc Pharmacy 19.5; Estimated Glomerular Filt Rate 13; Glucose Random 107 mg/dL (60-115); Magnesium 1.9 mg/dL (1.6-2.6); Phosphorus 4.2 mg/dL (2.7-4.5); Potassium 4.1 mmol/L (3.3-5.1); Sodium 143 mmol/L (135-145)
[2021-07-30] MEDS: Pantoprazole Sodium 40 MG/10 ML VIAL IVPUSH (06:10)
[2021-07-30 06:18] LABS: Glucose, Whole Blood 102 mg/dL (60-115)
[2021-07-30 06:30] LABS: B Type Natriuretic Peptide 633 pg/mL (<100)
[2021-07-30 07:46] LABS: Glucose, Whole Blood 96 mg/dL (60-115)
[2021-07-30] MEDS: Midazolam HCl/NS 50 MG/50 ML PLAST..BAG IVCONT ×2 (08:02→22:08)
[2021-07-30 09:01] LABS: VBG Base Excess -4.3 mmol/L; VBG HCO3 22 mmol/L (22-26); VBG pCO2 47 mmHg; VBG pH 7.27 (7.32-7.43); VBG pO2 46 mmHg
[2021-07-30] MEDS: Insulin Glargine,Hum.rec.anlog 100 UNIT/ML 10 ML VIAL 15 UNIT SUBCUT (09:56)
--- NOTE | 2021-07-30 11:09 | MHC.CLN ---
PT IS INTUBATED AND SEDATED PT RECEIVING GLUCERNA AT MAX GOAL RATE 50ML/HR WITH 120CC FREE WATER FLUSHES Q 4 HRS TO PROVIDE 1200KCALS (1814KCALS WITH SEDATION; 26KCALS/KG), 50G PROTEIN, 1744ML TOTAL WATER FROM FORMULA AND FLUSHES (25ML/KG) RECOMMEND ADDING 30ML PROSOURCE BID TO INCREASE PO PROTEIN -WILL PROVIDE AN ADDITIONAL 120KCALS, 30G PROTEIN (80G TOTAL;1.1G/KG) MONITOR TOLERANCE, RESIDUALS, AND LYTES SEE ALSO FULL CLINICAL NUTRITION ASSESSMENT
[2021-07-30 11:37] LABS: Glucose, Whole Blood 113 mg/dL (60-115)
--- NOTE | 2021-07-30 12:06 | PC.NURSE ---
Addendum entered by Иван Rivas RN 07/30/21 15:54: pt bathed this shift Addendum entered by Иван Rivas RN 07/30/21 14:00: Drips titrated per protocol. Prop drip maintained d/t pt not tolerating titration down previously. Unable to assess pupils d/t pt being legally blind (pupils white). TF started around 1130, water boluses maintained. TF to be increased as ordered if pt tolerates and does not have high residual. Two insulin devices noted upon assessment. The devices were removed and placed in a sterile container to protect staff from exposed needles. Inuslin drip d/c'ed per md verbal order this AM, pt transitioned to sub Q insulin. safety and fall precautions in place. Pt's was at bedside and updated by MD with bead filler at bedside. Original Note: Around 1150 pt found to be hypertensive, tachy, and moving around in bed w/ body wide tremors. MD was informed. per MD increase versed drip to 4 and administer 4mg IVP versed stat. Post intervention pt tremors stopped, HR and BP slowly decreased.
[2021-07-30] MEDS: Midazolam HCl/PF 2 MG/2 ML VIAL 4 MG IVPUSH (12:13)
--- NOTE | 2021-07-30 15:24 | PM.CCPN ---
Subjective Subjective Date of Service: 07/30/21 Interval History: 35-year-old polysubstance abuser brought in with acute hypoxemic respiratory failure and agitated delirium probably with fentanyl positivity took a fentanyl laced sympathomimetic but apparently not cocaine and came in with what appears to be noncardiogenic pulmonary edema a mild diabetic ketoacidosis but acute on chronic stage IV renal failure normal cardiovascular function and rhythm by bedside echo but as a complication of the renal failure marked hyperkalemia at 8.1 fortunately with treatment without sequelae and today has a lower minutes ventilatory and FiO2 requirement so he is improving and urine output is is excellent renal function is improving cardiovascular function stable Critical Care Time (minutes): 60 Physical Exam Vital Signs: Vital Signs: Last Vital Signs Temp 99.3 F 07/30/21 15:00 Pulse 101 H 07/30/21 15:00 Resp 16 07/30/21 15:00 BP 124/70 07/30/21 15:00 Pulse Ox 99 07/30/21 15:00 Oxygen Flow Rate 15 07/29/21 14:57 BMI result Body Mass Index 28.2 Comfortable with sedation and intubation Able to awaken moving all 4 extremities Cardiovascular bedside echo normal and and lungs with fine bilateral rales Abdomen is soft positive bowel sounds good no organomegaly and initiating feeding Objective Data Labs CBC & Chem 7: 07/30/21 05:15 07/30/21 05:15 Labs: Laboratory Results - last 24 hr 07/29/21 07/29/21 07/29/21 14:56 15:09 15:09 WBC 13.9 H RBC 3.37 L D Hgb 10.1 L D Hct 31.4 L D MCV 93.2 MCH 30.0 MCHC 32.2 RDW 12.5 Plt Count 176 MPV 11.6 Immature Gran % (Auto) 0.4 Neut % (Auto) 85.0 H Lymph % (Auto) 8.7 L [place] % (Auto) 5.8 Eos % (Auto) 0.0 Baso % (Auto) 0.1 Lymph # (Auto) 1.2 [place] # (Auto) 0.8 Eos # (Auto) 0.0 Baso # (Auto) 0.0 Abs Immat Gran (auto) 0.06 H Absolute Neuts (auto) 11.8 H Absolute Nucleated RBC 0.000 Nucleated RBC % (auto) 0.0 PT 13.1 H INR 1.2 H D-Dimer High Sensitivty 700 O2 Saturation ABG pH at Pt Temp ABG pCO2 at Pt Temp ABG pO2 at Pt Temp ABG HCO3 ABG Base Excess (Actual) VBG pH VBG pCO2 VBG pO2 VBG HCO3 VBG O2 Saturation VBG Base Excess Sodium Potassium Chloride Carbon Dioxide Anion Gap BUN Creatinine Estim Creat Clear Calc Estimated GFR POC Glucose > 600 H* Random Glucose Lactic Acid Lactic Acid F/U @ 2Hr Lactic Acid F/U @ 4Hr Calcium Phosphorus Magnesium Total Bilirubin Direct Bilirubin AST ALT Alkaline Phosphatase Troponin I High Sens B-Natriuretic Peptide Total Protein Albumin Lipase Urine Opiates Screen Urine Fentanyl Screen Ur Barbiturates Screen Ur Phencyclidine Scrn Ur Amphetamines Screen U Benzodiazepines Scrn Urine Cocaine Screen U Marijuana (THC) Screen Ethyl Alcohol COVID-19 ([facility]) COVID-19 Clin Com 07/29/21 07/29/21 07/29/21 15:09 15:09 15:12 WBC RBC Hgb Hct MCV MCH MCHC RDW Plt Count MPV Immature Gran % (Auto) Neut % (Auto) Lymph % (Auto) [place] % (Auto) Eos % (Auto) Baso % (Auto) Lymph # (Auto) [place] # (Auto) Eos # (Auto) Baso # (Auto) Abs Immat Gran (auto) Absolute Neuts (auto) Absolute Nucleated RBC Nucleated RBC % (auto) PT INR D-Dimer High Sensitivty O2 Saturation ABG pH at Pt Temp ABG pCO2 at Pt Temp ABG pO2 at Pt Temp ABG HCO3 ABG Base Excess (Actual) VBG pH VBG pCO2 VBG pO2 VBG HCO3 VBG O2 Saturation VBG Base Excess Sodium Cancelled 125 L Potassium Cancelled 8.1 H* D Chloride Cancelled 93 L Carbon Dioxide Cancelled 14 L Anion Gap Cancelled 26 H BUN Cancelled 102 H D Creatinine Cancelled 6.13 H* Estim Creat Clear Calc Cancelled 16.3 Estimated GFR Cancelled 10 POC Glucose Random Glucose Cancelled 1057 H* Lactic Acid Lactic Acid F/U @ 2Hr Lactic Acid F/U @ 4Hr Calcium Cancelled 8.3 L D Phosphorus Magnesium Cancelled 2.3 Total Bilirubin Cancelled 0.4 Direct Bilirubin Cancelled 0.2 AST Cancelled 23 ALT Cancelled 30 Alkaline Phosphatase Cancelled 85 Troponin I High Sens B-Natriuretic Peptide Total Protein Cancelled 6.2 L Albumin Cancelled 3.6 Lipase Cancelled 24 Urine Opiates Screen Urine Fentanyl Screen Ur Barbiturates Screen Ur Phencyclidine Scrn Ur Amphetamines Screen U Benzodiazepines Scrn Urine Cocaine Screen U Marijuana (THC) Screen Ethyl Alcohol COVID-19 ([facility]ABINE) Negative COVID-19 Clin Com See Note 07/29/21 07/29/21 07/29/21 15:12 15:12 15:12 WBC RBC Hgb Hct MCV MCH MCHC RDW Plt Count MPV Immature Gran % (Auto) Neut % (Auto) Lymph % (Auto) [place] % (Auto) Eos % (Auto) Baso % (Auto) Lymph # (Auto) [place] # (Auto) Eos # (Auto) Baso # (Auto) Abs Immat Gran (auto) Absolute Neuts (auto) Absolute Nucleated RBC Nucleated RBC % (auto) PT INR D-Dimer High Sensitivty O2 Saturation ABG pH at Pt Temp ABG pCO2 at Pt Temp ABG pO2 at Pt Temp ABG HCO3 ABG Base Excess (Actual) VBG pH VBG pCO2 VBG pO2 VBG HCO3 VBG O2 Saturation VBG Base Excess Sodium Potassium Chloride Carbon Dioxide Anion Gap BUN Creatinine Estim Creat Clear Calc Estimated GFR POC Glucose Random Glucose Lactic Acid 7.9 H* Lactic Acid F/U @ 2Hr Lactic Acid F/U @ 4Hr Calcium Phosphorus Magnesium Total Bilirubin Direct Bilirubin AST ALT Alkaline Phosphatase Troponin I High Sens 98.7 H B-Natriuretic Peptide 2373 H Total Protein Albumin Lipase Urine Opiates Screen Urine Fentanyl Screen Ur Barbiturates Screen Ur Phencyclidine Scrn Ur Amphetamines Screen U Benzodiazepines Scrn Urine Cocaine Screen U Marijuana (THC) Screen Ethyl Alcohol < 10 COVID-19 ([facility]ABINE) COVID-19 Clin Com 07/29/21 07/29/21 07/29/21 15:22 16:18 17:37 WBC RBC Hgb Hct MCV MCH MCHC RDW Plt Count MPV Immature Gran % (Auto) Neut % (Auto) Lymph % (Auto) [place] % (Auto) Eos % (Auto) Baso % (Auto) Lymph # (Auto) [place] # (Auto) Eos # (Auto) Baso # (Auto) Abs Immat Gran (auto) Absolute Neuts (auto) Absolute Nucleated RBC Nucleated RBC % (auto) PT INR D-Dimer High Sensitivty O2 Saturation 91.0 ABG pH at Pt Temp 7.25 L ABG pCO2 at Pt Temp 32 ABG pO2 at Pt Temp 74 L ABG HCO3 14 L ABG Base Excess (Actual) -11.3 VBG pH VBG pCO2 VBG pO2 VBG HCO3 VBG O2 Saturation VBG Base Excess Sodium Potassium Chloride Carbon Dioxide Anion Gap BUN Creatinine Estim Creat Clear Calc Estimated GFR POC Glucose > 600 H* Random Glucose Lactic Acid Lactic Acid F/U @ 2Hr Lactic Acid F/U @ 4Hr Calcium Phosphorus Magnesium Total Bilirubin Direct Bilirubin AST ALT Alkaline Phosphatase Troponin I High Sens B-Natriuretic Peptide Total Protein Albumin Lipase Urine Opiates Screen Not Detected Urine Fentanyl Screen POSITIVE H Ur Barbiturates Screen Not Detected Ur Phencyclidine Scrn Not Detected Ur Amphetamines Screen Not Detected U Benzodiazepines Scrn Not Detected Urine Cocaine Screen Not Detected U Marijuana (THC) Screen Not Detected Ethyl Alcohol COVID-19 (SABINE) [employer] 07/29/21 07/29/21 07/29/21 18:22 18:38 19:51 WBC RBC Hgb Hct MCV MCH MCHC RDW Plt Count MPV Immature Gran % (Auto) Neut % (Auto) Lymph % (Auto) [place] % (Auto) Eos % (Auto) Baso % (Auto) Lymph # (Auto) [place] # (Auto) Eos # (Auto) Baso # (Auto) Abs Immat Gran (auto) Absolute Neuts (auto) Absolute Nucleated RBC Nucleated RBC % (auto) PT INR D-Dimer High Sensitivty O2 Saturation ABG pH at Pt Temp ABG pCO2 at Pt Temp ABG pO2 at Pt Temp ABG HCO3 ABG Base Excess (Actual) VBG pH VBG pCO2 VBG pO2 VBG HCO3 VBG O2 Saturation VBG Base Excess Sodium Potassium Chloride Carbon Dioxide Anion Gap BUN Creatinine Estim Creat Clear Calc Estimated GFR POC Glucose > 600 H* > 600 H* Random Glucose Lactic Acid Lactic Acid F/U @ 2Hr 3.0 H* Lactic Acid F/U @ 4Hr Calcium Phosphorus Magnesium Total Bilirubin Direct Bilirubin AST ALT Alkaline Phosphatase Troponin I High Sens B-Natriuretic Peptide Total Protein Albumin Lipase Urine Opiates Screen Urine Fentanyl Screen Ur Barbiturates Screen Ur Phencyclidine Scrn Ur Amphetamines Screen U Benzodiazepines Scrn Urine Cocaine Screen U Marijuana (THC) Screen Ethyl Alcohol COVID-19 (SABINE) [employer] 0607/29/21 07/29/21 20:12 20:12 20:12 WBC RBC Hgb Hct MCV MCH MCHC RDW Plt Count MPV Immature Gran % (Auto) Neut % (Auto) Lymph % (Auto) [place] % (Auto) Eos % (Auto) Baso % (Auto) Lymph # (Auto) [place] # (Auto) Eos # (Auto) Baso # (Auto) Abs Immat Gran (auto) Absolute Neuts (auto) Absolute Nucleated RBC Nucleated RBC % (auto) PT INR D-Dimer High Sensitivty O2 Saturation ABG pH at Pt Temp ABG pCO2 at Pt Temp ABG pO2 at Pt Temp ABG HCO3 ABG Base Excess (Actual) VBG pH VBG pCO2 VBG pO2 VBG HCO3 VBG O2 Saturation VBG Base Excess Sodium 130 L Potassium 5.8 H D Chloride 98 Carbon Dioxide 21 L Anion Gap 17 BUN 104 H Creatinine 5.84 H* Estim Creat Clear Calc 17.1 Estimated GFR 11 POC Glucose Random Glucose 693 H* Lactic Acid 2.7 H* Lactic Acid F/U @ 2Hr Lactic Acid F/U @ 4Hr Calcium 8.4 Phosphorus 2.4 L Magnesium 2.4 Total Bilirubin Direct Bilirubin AST ALT Alkaline Phosphatase Troponin I High Sens B-Natriuretic Peptide 1669 H Total Protein Albumin Lipase Urine Opiates Screen Urine Fentanyl Screen Ur Barbiturates Screen Ur Phencyclidine Scrn Ur Amphetamines Screen U Benzodiazepines Scrn Urine Cocaine Screen U Marijuana (THC) Screen Ethyl Alcohol COVID-19 (SABINE) COVID-19 Clin Com 07/29/21 07/29/21 07/29/21 20:12 20:13 20:49 WBC RBC Hgb Hct MCV MCH MCHC RDW Plt Count MPV Immature Gran % (Auto) Neut % (Auto) Lymph % (Auto) [place] % (Auto) Eos % (Auto) Baso % (Auto) Lymph # (Auto) [place] # (Auto) Eos # (Auto) Baso # (Auto) Abs Immat Gran (auto) Absolute Neuts (auto) Absolute Nucleated RBC Nucleated RBC % (auto) PT INR D-Dimer High Sensitivty O2 Saturation ABG pH at Pt Temp ABG pCO2 at Pt Temp ABG pO2 at Pt Temp ABG HCO3 ABG Base Excess (Actual) VBG pH 7.27 L 7.27 L VBG pCO2 47 47 VBG pO2 46 46 VBG HCO3 22 22 VBG O2 Saturation 67.0 67.0 VBG Base Excess -4.3 -4.3 Sodium Potassium Chloride Carbon Dioxide Anion Gap BUN Creatinine Estim Creat Clear Calc Estimated GFR POC Glucose 553 H* Random Glucose Lactic Acid Lactic Acid F/U @ 2Hr Lactic Acid F/U @ 4Hr Calcium Phosphorus Magnesium Total Bilirubin Direct Bilirubin AST ALT Alkaline Phosphatase Troponin I High Sens B-Natriuretic Peptide Total Protein Albumin Lipase Urine Opiates Screen Urine Fentanyl Screen Ur Barbiturates Screen Ur Phencyclidine Scrn Ur Amphetamines Screen U Benzodiazepines Scrn Urine Cocaine Screen U Marijuana (THC) Screen Ethyl Alcohol COVID-19 (SABINE) [employer] 07/29/21 07/29/21 07/29/21 22:01 22:41 23:06 WBC RBC Hgb Hct MCV MCH MCHC RDW Plt Count MPV Immature Gran % (Auto) Neut % (Auto) Lymph % (Auto) [place] % (Auto) Eos % (Auto) Baso % (Auto) Lymph # (Auto) [place] # (Auto) Eos # (Auto) Baso # (Auto) Abs Immat Gran (auto) Absolute Neuts (auto) Absolute Nucleated RBC Nucleated RBC % (auto) PT INR D-Dimer High Sensitivty O2 Saturation ABG pH at Pt Temp ABG pCO2 at Pt Temp ABG pO2 at Pt Temp ABG HCO3 ABG Base Excess (Actual) VBG pH VBG pCO2 VBG pO2 VBG HCO3 VBG O2 Saturation VBG Base Excess Sodium Potassium Chloride Carbon Dioxide Anion Gap BUN Creatinine Estim Creat Clear Calc Estimated GFR POC Glucose 381 H* 253 H Random Glucose Lactic Acid Lactic Acid F/U @ 2Hr 2.4 H* Lactic Acid F/U @ 4Hr Calcium Phosphorus Magnesium Total Bilirubin Direct Bilirubin AST ALT Alkaline Phosphatase Troponin I High Sens B-Natriuretic Peptide Total Protein Albumin Lipase Urine Opiates Screen Urine Fentanyl Screen Ur Barbiturates Screen Ur Phencyclidine Scrn Ur Amphetamines Screen U Benzodiazepines Scrn Urine Cocaine Screen U Marijuana (THC) Screen Ethyl Alcohol COVID-19 (SABINE) [employer] 07/29/21 07/30/21 07/30/21 23:57 00:32 00:34 WBC RBC Hgb Hct MCV MCH MCHC RDW Plt Count MPV Immature Gran % (Auto) Neut % (Auto) Lymph % (Auto) [place] % (Auto) Eos % (Auto) Baso % (Auto) Lymph # (Auto) [place] # (Auto) Eos # (Auto) Baso # (Auto) Abs Immat Gran (auto) Absolute Neuts (auto) Absolute Nucleated RBC Nucleated RBC % (auto) PT INR D-Dimer High Sensitivty O2 Saturation ABG pH at Pt Temp ABG pCO2 at Pt Temp ABG pO2 at Pt Temp ABG HCO3 ABG Base Excess (Actual) VBG pH 7.44 H VBG pCO2 32 VBG pO2 54 VBG HCO3 22 VBG O2 Saturation 86.0 VBG Base Excess -1.2 Sodium 139 Potassium 4.2 D Chloride 104 Carbon Dioxide 22 Anion Gap 17 BUN 101 H Creatinine 5.44 H* Estim Creat Clear Calc 18.4 Estimated GFR 12 POC Glucose 227 H Random Glucose 184 H D Lactic Acid Lactic Acid F/U @ 2Hr Lactic Acid F/U @ 4Hr Calcium 8.8 Phosphorus 3.8 Magnesium 2.1 Total Bilirubin Direct Bilirubin AST ALT Alkaline Phosphatase Troponin I High Sens B-Natriuretic Peptide Total Protein Albumin Lipase Urine Opiates Screen Urine Fentanyl Screen Ur Barbiturates Screen Ur Phencyclidine Scrn Ur Amphetamines Screen U Benzodiazepines Scrn Urine Cocaine Screen U Marijuana (THC) Screen Ethyl Alcohol COVID-19 (SABINE) COVID-19 Clin Com 07/30/21 07/30/21 07/30/21 00:54 01:05 01:57 WBC RBC Hgb Hct MCV MCH MCHC RDW Plt Count MPV Immature Gran % (Auto) Neut % (Auto) Lymph % (Auto) [place] % (Auto) Eos % (Auto) Baso % (Auto) Lymph # (Auto) [place] # (Auto) Eos # (Auto) Baso # (Auto) Abs Immat Gran (auto) Absolute Neuts (auto) Absolute Nucleated RBC Nucleated RBC % (auto) PT INR D-Dimer High Sensitivty O2 Saturation ABG pH at Pt Temp ABG pCO2 at Pt Temp ABG pO2 at Pt Temp ABG HCO3 ABG Base Excess (Actual) VBG pH VBG pCO2 VBG pO2 VBG HCO3 VBG O2 Saturation VBG Base Excess Sodium Potassium Chloride Carbon Dioxide Anion Gap BUN Creatinine Estim Creat Clear Calc Estimated GFR POC Glucose 150 H 133 H Random Glucose Lactic Acid Lactic Acid F/U @ 2Hr Lactic Acid F/U @ 4Hr 1.6 Calcium Phosphorus Magnesium Total Bilirubin Direct Bilirubin AST ALT Alkaline Phosphatase Troponin I High Sens B-Natriuretic Peptide Total Protein Albumin Lipase Urine Opiates Screen Urine Fentanyl Screen Ur Barbiturates Screen Ur Phencyclidine Scrn Ur Amphetamines Screen U Benzodiazepines Scrn Urine Cocaine Screen U Marijuana (THC) Screen Ethyl Alcohol COVID-19 (SABINE) COVID-19 [employer] 07/30/21 07/30/21 07/30/21 03:07 04:11 05:10 WBC RBC Hgb Hct MCV MCH MCHC RDW Plt Count MPV Immature Gran % (Auto) Neut % (Auto) Lymph % (Auto) [place] % (Auto) Eos % (Auto) Baso % (Auto) Lymph # (Auto) [place] # (Auto) Eos # (Auto) Baso # (Auto) Abs Immat Gran (auto) Absolute Neuts (auto) Absolute Nucleated RBC Nucleated RBC % (auto) PT INR D-Dimer High Sensitivty O2 Saturation ABG pH at Pt Temp ABG pCO2 at Pt Temp ABG pO2 at Pt Temp ABG HCO3 ABG Base Excess (Actual) VBG pH VBG pCO2 VBG pO2 VBG HCO3 VBG O2 Saturation VBG Base Excess Sodium Potassium Chloride Carbon Dioxide Anion Gap BUN Creatinine Estim Creat Clear Calc Estimated GFR POC Glucose 119 H 99 109 Random Glucose Lactic Acid Lactic Acid F/U @ 2Hr Lactic Acid F/U @ 4Hr Calcium Phosphorus Magnesium Total Bilirubin Direct Bilirubin AST ALT Alkaline Phosphatase Troponin I High Sens B-Natriuretic Peptide Total Protein Albumin Lipase Urine Opiates Screen Urine Fentanyl Screen Ur Barbiturates Screen Ur Phencyclidine Scrn Ur Amphetamines Screen U Benzodiazepines Scrn Urine Cocaine Screen U Marijuana (THC) Screen Ethyl Alcohol COVID-19 (SABINE) COVID-19 [employer] Com 07/30/21 07/30/21 07/30/21 05:15 05:15 05:15 WBC 11.4 H RBC 2.90 L Hgb 8.6 L Hct 25.4 L MCV 87.6 D MCH 29.7 MCHC 33.9 RDW 12.3 Plt Count 152 L MPV 10.5 Immature Gran % (Auto) 0.4 Neut % (Auto) 72.9 Lymph % (Auto) 18.6 L [place] % (Auto) 6.8 Eos % (Auto) 0.9 Baso % (Auto) 0.4 Lymph # (Auto) 2.1 [place] # (Auto) 0.8 Eos # (Auto) 0.1 Baso # (Auto) 0.0 Abs Immat Gran (auto) 0.05 H Absolute Neuts (auto) 8.3 Absolute Nucleated RBC 0.000 Nucleated RBC % (auto) 0.0 PT INR D-Dimer High Sensitivty O2 Saturation ABG pH at Pt Temp ABG pCO2 at Pt Temp ABG pO2 at Pt Temp ABG HCO3 ABG Base Excess (Actual) VBG pH VBG pCO2 VBG pO2 VBG HCO3 VBG O2 Saturation VBG Base Excess Sodium 143 Potassium 4.1 Chloride 107 Carbon Dioxide 25 Anion Gap 15 BUN 99 H Creatinine 5.12 H* Estim Creat Clear Calc 19.5 Estimated GFR 13 POC Glucose Random Glucose 107 D Lactic Acid Lactic Acid F/U @ 2Hr Lactic Acid F/U @ 4Hr Calcium 8.6 Phosphorus 4.2 Magnesium 1.9 Total Bilirubin Direct Bilirubin AST ALT Alkaline Phosphatase Troponin I High Sens B-Natriuretic Peptide 633 H Total Protein Albumin Lipase Urine Opiates Screen Urine Fentanyl Screen Ur Barbiturates Screen Ur Phencyclidine Scrn Ur Amphetamines Screen U Benzodiazepines Scrn Urine Cocaine Screen U Marijuana (THC) Screen Ethyl Alcohol COVID-19 (SABINE) COVID-19 Clin Com 07/30/21 07/30/21 07/30/21 05:19 06:14 07:36 WBC RBC Hgb Hct MCV MCH MCHC RDW Plt Count MPV Immature Gran % (Auto) Neut % (Auto) Lymph % (Auto) [place] % (Auto) Eos % (Auto) Baso % (Auto) Lymph # (Auto) [place] # (Auto) Eos # (Auto) Baso # (Auto) Abs Immat Gran (auto) Absolute Neuts (auto) Absolute Nucleated RBC Nucleated RBC % (auto) PT INR D-Dimer High Sensitivty O2 Saturation ABG pH at Pt Temp ABG pCO2 at Pt Temp ABG pO2 at Pt Temp ABG HCO3 ABG Base Excess (Actual) VBG pH 7.40 VBG pCO2 40 VBG pO2 62 VBG HCO3 25 VBG O2 Saturation 87.0 VBG Base Excess 0.8 Sodium Potassium Chloride Carbon Dioxide Anion Gap BUN Creatinine Estim Creat Clear Calc Estimated GFR POC Glucose 102 96 Random Glucose Lactic Acid Lactic Acid F/U @ 2Hr Lactic Acid F/U @ 4Hr Calcium Phosphorus Magnesium Total Bilirubin Direct Bilirubin AST ALT Alkaline Phosphatase Troponin I High Sens B-Natriuretic Peptide Total Protein Albumin Lipase Urine Opiates Screen Urine Fentanyl Screen Ur Barbiturates Screen Ur Phencyclidine Scrn Ur Amphetamines Screen U Benzodiazepines Scrn Urine Cocaine Screen U Marijuana (THC) Screen Ethyl Alcohol COVID-19 (SABINE) [employer] 07/30/21 11:32 WBC RBC Hgb Hct MCV MCH MCHC RDW Plt Count MPV Immature Gran % (Auto) Neut % (Auto) Lymph % (Auto) [place] % (Auto) Eos % (Auto) Baso % (Auto) Lymph # (Auto) [place] # (Auto) Eos # (Auto) Baso # (Auto) Abs Immat Gran (auto) Absolute Neuts (auto) Absolute Nucleated RBC Nucleated RBC % (auto) PT INR D-Dimer High Sensitivty O2 Saturation ABG pH at Pt Temp ABG pCO2 at Pt Temp ABG pO2 at Pt Temp ABG HCO3 ABG Base Excess (Actual) VBG pH VBG pCO2 VBG pO2 VBG HCO3 VBG O2 Saturation VBG Base Excess Sodium Potassium Chloride Carbon Dioxide Anion Gap BUN Creatinine Estim Creat Clear Calc Estimated GFR POC Glucose 113 Random Glucose Lactic Acid Lactic Acid F/U @ 2Hr Lactic Acid F/U @ 4Hr Calcium Phosphorus Magnesium Total Bilirubin Direct Bilirubin AST ALT Alkaline Phosphatase Troponin I High Sens B-Natriuretic Peptide Total Protein Albumin Lipase Urine Opiates Screen Urine Fentanyl Screen Ur Barbiturates Screen Ur Phencyclidine Scrn Ur Amphetamines Screen U Benzodiazepines Scrn Urine Cocaine Screen U Marijuana (THC) Screen Ethyl Alcohol COVID-19 (SABINE) [employer] Progress Note: A&P Assessment and plan (1) Respiratory failure: Status: Acute (2) Pulmonary edema: Status: Acute (3) Acute hyperkalemia: Status: Acute (4) Acute on chronic kidney failure: Status: Acute (5) Hypertensive emergency: Status: Acute (6) Hyponatremia: Status: Acute (7) Hyperkalemia: Status: Acute (8) Lactic acidosis due to diabetes mellitus: Status: Acute (9) Diabetic ketoacidosis: Status: Acute (10) Hypertensive urgency: Status: Acute (11) Acute kidney injury superimposed on CKD: Status: Acute (12) Abdominal pain: Status: Acute (13) Pancreatitis: Status: Acute (14) Vitamin D deficiency: Status: Acute (15) Hypocalcemia: Status: Acute (16) Background diabetic retinopathy associated with type 2 diabetes mellitus: Status: Acute (17) 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: Status: Acute (18) Diabetes type 1, uncontrolled: Status: Acute (19) Acid reflux: Status: Acute (20) Diabetic polyneuropathy associated with type 1 diabetes mellitus: Status: Acute (21) Hyperlipidemia LDL goal <70: Status: Acute (22) Withdrawal from recreational drug: Status: Acute Plan Continue sedation and ventilator maintenance cover for aspiration Quality Stroke Does the patient have a stroke diagnosis?: No VTE Prior VTE?: No VTE Risk Level:: Medical - moderate - high VTE Device Contraindication: N/A - Device Ordered VTE Drug Contraindication: Treatment Not Indicated
[2021-07-30 16:12] LABS: Glucose, Whole Blood 155 mg/dL (60-115)
[2021-07-30] MEDS: Insulin Lispro 100 UNIT/ML 3 ML VIAL SUBCUT ×2 (16:13→21:19)
[2021-07-30 21:03] LABS: Glucose, Whole Blood 186 mg/dL (60-115)
[2021-07-30 22:07] LABS: Amphetamine Screen Urine Not Detected (Not Detect); Barbiturates, Urine Not Detected (Not Detect); Benzodiazepines Screen Urine POSITIVE (Not Detect); Cannabinoid Screen Urine Not Detected (Not Detect); Cocaine Screen Urine Not Detected (Not Detect); Fentanyl, urine POSITIVE (Not Detect); Opiate Screen Urine Not Detected (Not Detect); Phencyclidine Screen Urine Not Detected (Not Detect)
[2021-07-31] VITALS (30 sets, daily range): BP systolic 98–222; BP diastolic 67–111; PULSE 95–136; RESP 14–18; TEMP 34.9–38.8; O2SAT 94–99; BMI 28.1
[2021-07-31] MEDS: Chlorhexidine Gluc Oral Rinse 15 ML MOUTHWASH BUCCAL ×3 (02:23→17:43)
[2021-07-31] MEDS: propofoL 1,000 MG/100 ML VIAL 23.27 MG IVCONT ×5 (02:23→22:59)
[2021-07-31 06:08] LABS: VBG Base Excess -0.6 mmol/L; VBG HCO3 23 mmol/L (22-26); VBG pCO2 35 mmHg; VBG pH 7.42 (7.32-7.43); VBG pO2 61 mmHg
[2021-07-31] MEDS: KCl 20 mEq in 5% Dex/0.45% Sod 20 MEQ/1,000 ML IV.SOLN 150 MEQ IVCONT (06:30)
[2021-07-31 06:33] LABS: MANUAL DIFF FLAG NO
[2021-07-31] MEDS: Pantoprazole Sodium 40 MG/10 ML VIAL IVPUSH (06:33)
[2021-07-31 06:47] LABS: Basophils Percent Auto 0.2 % (0-2); Eosinophils Absolute Auto 0.2 X10*3/uL (0.0-0.4); Eosinophils Percent Auto 2.5 % (0-4); Hematocrit 22.9 % (42.0-52.0); Hemoglobin 7.6 g/dl (14.0-18.0); Imm Gran Abs Auto 0.04 X10*3/uL (0.00-0.03); Imm Gran Pct Auto 0.5 % (0.0-0.4); Lymphocytes Absolute Auto 1.1 X10*3/uL (1.2-4.9); Lymphocytes Percent Auto 13.5 % (20-40); Mean Corpuscular HGB Conc 33.2 g/dl (31.0-36.0); Mean Corpuscular Hemoglobin 30.3 pg (27.0-33.0); Mean Corpuscular Volume 91.2 fL (80.0-98.0); Monocytes Absolute Auto 0.8 X10*3/uL (0.1-1.2); Monocytes Percent Auto 9.6 % (2-11); Neutrophils Absolute Auto 6.2 x10*3/uL (2.0-8.3); Neutrophils Percent Auto 73.7 % (45-73); Platelet Count 138 X10*3/uL (160-400); Red Blood Count 2.51 X10*6/uL (4.60-5.80); Red Cell Distribution Width 12.7 % (11.0-16.0); White Blood Count 8.4 X10*3/uL (4.8-10.8)
[2021-07-31 06:51] LABS: Estimated Glomerular Filt Rate 15
[2021-07-31 07:30] LABS: B Type Natriuretic Peptide 75 pg/mL (<100)
[2021-07-31 07:36] LABS: Anion Gap 17 (12-20); Blood Urea Nitrogen 62 mg/dL (9-16); Carbon Dioxide 22 mmol/L (22-29); Chloride 104 mmol/L (96-108); Glucose Random 621 mg/dL (60-115); Magnesium 1.3 mg/dL (1.6-2.6); Phosphorus 2.2 mg/dL (2.7-4.5); Potassium 5.8 mmol/L (3.3-5.1); Sodium 137 mmol/L (135-145)
[2021-07-31 07:59] LABS: Glucose, Whole Blood > 600 mg/dL (60-115)
[2021-07-31 08:17] LABS: Venous Blood Gas Refer to POC result
[2021-07-31 08:23] LABS: VBG Base Excess -2.6 mmol/L; VBG HCO3 21 mmol/L (22-26); VBG pCO2 34 mmHg; VBG pH 7.39 (7.32-7.43); VBG pO2 63 mmHg
[2021-07-31] MEDS: Insulin Lispro 100 UNIT/ML 3 ML VIAL SUBCUT ×2 (08:38→18:54)
[2021-07-31] MEDS: Insulin Glargine,Hum.rec.anlog 100 UNIT/ML 10 ML VIAL 30 UNIT SUBCUT (08:41)
[2021-07-31 08:42] LABS: Lactate Dehydrogenase 222 U/L (118-273)
[2021-07-31] MEDS: Insulin Regular, Human 100 UNIT/ML 3 ML VIAL IVPUSH ×2 (08:42→14:54)
[2021-07-31 08:44] LABS: Magnesium 1.5 mg/dL (1.6-2.6)
[2021-07-31] MEDS: Magnesium Sulfate/H2O 2 GM/50 ML PIGGYBACK IV (08:48)
[2021-07-31] MEDS: Midazolam HCl/NS 50 MG/50 ML PLAST..BAG IVCONT ×2 (10:16→21:04)
[2021-07-31 12:01] LABS: Glucose, Whole Blood 523 mg/dL (60-115)
[2021-07-31 13:04] LABS: Anion Gap 14 (12-20); Blood Urea Nitrogen 65 mg/dL (9-16); Calcium 8.3 mg/dL (8.4-10.2); Carbon Dioxide 25 mmol/L (22-29); Chloride 106 mmol/L (96-108); Estimated Glomerular Filt Rate 14; Glucose Random 636 mg/dL (60-115); Potassium 4.9 mmol/L (3.3-5.1); Sodium 140 mmol/L (135-145)
[2021-07-31] MEDS: Magnesium Sulfate/D5W 1 GM/100 ML PIGGYBACK IV (14:54)
--- NOTE | 2021-07-31 15:15 | MHC.CM.PN ---
Male 55 DX AMS Hypoxic respiratory failure. He is intubated in ICU. Via telephone motor vehicle parts interpreter, T/W spoke with the Pts significant other. 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 He is legally blind. He ambulates with assistance of a person. He is not on Methadone or Suboxine. There is no HCP in place. He has been Vaccinated x2/Pfizer DP depends on the pts recovery. DP Home with services vs STR, vs LTC via BLS. CM will follow to address discharge needs and to develop a safe DC plan.
--- NOTE | 2021-07-31 16:11 | P.PNCC_ITS ---
Subjective Subjective Date of Service: 07/31/21 Interval History: A 35-year-old polysubstance abuser type 1 diabetic presents with delirium and acute hypoxemic respiratory failure in a picture of pulmonary edema and in retrospect probably noncardiogenic and it appears as though he might have taken a street synthetic laced with fentanyl which was positive on his in his tox screen he had profound lactic in a positive anion gap metabolic acidosis with a mild diabetic ketoacidosis hyperglycemic to 1100 initially an uric with acute on chronic stage IV renal failure since hydration and IV insulin etc. no more anion gap and his creatinine has improved down to the mid 4s and BUN has improved urine output has picked up Ms. FiO2 and minute ventilatory requirements are diminishing patient still displays delirium and he clearly had a physical stigmata of active withdrawal and so he remains on the ventilator and low-grade temperature cultures to date negative and there may be a an aspiration component to it we soreness chest x-ray not impossible but the not ready to be weaned yet today he had other mild metabolic issues hypo magnesemia and and persistent hyperglycemia now that he is off the IV insulin so we have been titrating more aggressively on his long and short-acting subcutaneous in insulin coverage Critical Care Time (minutes): 60 Physical Exam Vital Signs: Vital Signs: Last Vital Signs Temp 100.9 F H 07/31/21 14:45 Pulse 116 H 07/31/21 14:45 Resp 15 07/31/21 14:45 BP 156/91 H 07/31/21 14:45 Pulse Ox 95 07/31/21 14:45 O2 Del Method 07/31/21 14:45 FiO2 30 07/31/21 15:12 Oxygen Flow Rate 15 07/29/21 14:57 BMI result Body Mass Index 28.1 He does awaken if sedation is lightened moving all 4 extremities Cardiovascular bedside echo is class 1 Scattered coarse rales bilaterally but no diaphragmatic or accessory muscle use Abdomen is soft no organomegaly tolerating feedings Skin is intact Objective Data Labs CBC & Chem 7: 07/31/21 05:25 07/31/21 12:38 Labs: Laboratory Results - last 24 hr 07/30/21 07/30/21 07/30/21 16:08 20:59 21:32 WBC RBC Hgb Hct MCV MCH MCHC RDW Plt Count MPV Immature Gran % (Auto) Neut % (Auto) Lymph % (Auto) [place] % (Auto) Eos % (Auto) Baso % (Auto) Lymph # (Auto) [place] # (Auto) Eos # (Auto) Baso # (Auto) Abs Immat Gran (auto) Absolute Neuts (auto) Absolute Nucleated RBC Nucleated RBC % (auto) VBG pH VBG pCO2 VBG pO2 VBG HCO3 VBG O2 Saturation VBG Base Excess Sodium Potassium Chloride Carbon Dioxide Anion Gap BUN Creatinine Estim Creat Clear Calc Estimated GFR POC Glucose 155 H 186 H Random Glucose Calcium Phosphorus Magnesium Lactate Dehydrogenase B-Natriuretic Peptide Urine Opiates Screen Not Detected Urine Fentanyl Screen POSITIVE H Ur Barbiturates Screen Not Detected Ur Phencyclidine Scrn Not Detected Ur Amphetamines Screen Not Detected U Benzodiazepines Scrn POSITIVE H Urine Cocaine Screen Not Detected U Marijuana (THC) Screen Not Detected KAYLEE, Polyspecific Positive KAYLEE Work-up 07/31/21 07/31/21 07/31/21 05:20 05:20 05:21 WBC RBC Hgb Hct MCV MCH MCHC RDW Plt Count MPV Immature Gran % (Auto) Neut % (Auto) Lymph % (Auto) [place] % (Auto) Eos % (Auto) Baso % (Auto) Lymph # (Auto) [place] # (Auto) Eos # (Auto) Baso # (Auto) Abs Immat Gran (auto) Absolute Neuts (auto) Absolute Nucleated RBC Nucleated RBC % (auto) VBG pH 7.42 VBG pCO2 35 VBG pO2 61 VBG HCO3 23 VBG O2 Saturation 89.0 VBG Base Excess -0.6 Sodium 137 Potassium 5.8 H D Chloride 104 Carbon Dioxide 22 Anion Gap 17 BUN 62 H Creatinine 4.38 H* Estim Creat Clear Calc 23.0 Estimated GFR 15 POC Glucose Random Glucose 621 H* Calcium 8.0 L D Phosphorus 2.2 L Magnesium 1.3 L* Lactate Dehydrogenase B-Natriuretic Peptide 75 Urine Opiates Screen Urine Fentanyl Screen Ur Barbiturates Screen Ur Phencyclidine Scrn Ur Amphetamines Screen U Benzodiazepines Scrn Urine Cocaine Screen U Marijuana (THC) Screen KAYLEE, Polyspecific Positive KAYLEE Work-up 07/31/21 07/31/21 07/31/21 05:25 07:55 08:15 WBC 8.4 RBC 2.51 L Hgb 7.6 L Hct 22.9 L MCV 91.2 MCH 30.3 MCHC 33.2 RDW 12.7 Plt Count 138 L MPV 11.0 Immature Gran % (Auto) 0.5 H Neut % (Auto) 73.7 H Lymph % (Auto) 13.5 L [place] % (Auto) 9.6 Eos % (Auto) 2.5 Baso % (Auto) 0.2 Lymph # (Auto) 1.1 L [place] # (Auto) 0.8 Eos # (Auto) 0.2 Baso # (Auto) 0.0 Abs Immat Gran (auto) 0.04 H Absolute Neuts (auto) 6.2 Absolute Nucleated RBC 0.000 Nucleated RBC % (auto) 0.0 VBG pH 7.39 VBG pCO2 34 VBG pO2 63 VBG HCO3 21 L VBG O2 Saturation 89.0 VBG Base Excess -2.6 Sodium Potassium Chloride Carbon Dioxide Anion Gap BUN Creatinine Estim Creat Clear Calc Estimated GFR POC Glucose > 600 H* Random Glucose Calcium Phosphorus Magnesium Lactate Dehydrogenase B-Natriuretic Peptide Urine Opiates Screen Urine Fentanyl Screen Ur Barbiturates Screen Ur Phencyclidine Scrn Ur Amphetamines Screen U Benzodiazepines Scrn Urine Cocaine Screen U Marijuana (THC) Screen KAYLEE, Polyspecific Positive KAYLEE Work-up 07/31/21 07/31/21 07/31/21 08:17 08:17 08:34 WBC RBC Hgb Hct MCV MCH MCHC RDW Plt Count MPV Immature Gran % (Auto) Neut % (Auto) Lymph % (Auto) [place] % (Auto) Eos % (Auto) Baso % (Auto) Lymph # (Auto) [place] # (Auto) Eos # (Auto) Baso # (Auto) Abs Immat Gran (auto) Absolute Neuts (auto) Absolute Nucleated RBC Nucleated RBC % (auto) VBG pH VBG pCO2 VBG pO2 VBG HCO3 VBG O2 Saturation VBG Base Excess Sodium Potassium Chloride Carbon Dioxide Anion Gap BUN Creatinine Estim Creat Clear Calc Estimated GFR POC Glucose Random Glucose Calcium Phosphorus Magnesium 1.5 L Lactate Dehydrogenase 222 B-Natriuretic Peptide Urine Opiates Screen Urine Fentanyl Screen Ur Barbiturates Screen Ur Phencyclidine Scrn Ur Amphetamines Screen U Benzodiazepines Scrn Urine Cocaine Screen U Marijuana (THC) Screen KAYLEE, Polyspecific NEGATIVE Positive KAYLEE Work-up TNP 07/31/21 07/31/21 11:56 12:38 WBC RBC Hgb Hct MCV MCH MCHC RDW Plt Count MPV Immature Gran % (Auto) Neut % (Auto) Lymph % (Auto) [place] % (Auto) Eos % (Auto) Baso % (Auto) Lymph # (Auto) [place] # (Auto) Eos # (Auto) Baso # (Auto) Abs Immat Gran (auto) Absolute Neuts (auto) Absolute Nucleated RBC Nucleated RBC % (auto) VBG pH VBG pCO2 VBG pO2 VBG HCO3 VBG O2 Saturation VBG Base Excess Sodium 140 Potassium 4.9 Chloride 106 Carbon Dioxide 25 Anion Gap 14 BUN 65 H Creatinine 4.79 H* Estim Creat Clear Calc 21.0 Estimated GFR 14 POC Glucose 523 H* Random Glucose 636 H* Calcium 8.3 L Phosphorus Magnesium Lactate Dehydrogenase B-Natriuretic Peptide Urine Opiates Screen Urine Fentanyl Screen Ur Barbiturates Screen Ur Phencyclidine Scrn Ur Amphetamines Screen U Benzodiazepines Scrn Urine Cocaine Screen U Marijuana (THC) Screen KAYLEE, Polyspecific Positive KAYLEE Work-up Microbiology Microbiology Results: Microbiology 07/29/21 15:09 Blood - Venous Blood Culture - Preliminary No growth after 24 hours. 07/29/21 15:12 Blood - Venous Blood Culture - Preliminary No growth after 24 hours. Progress Note: A&P Assessment and plan (1) Withdrawal from recreational drug: Status: Acute (2) Respiratory failure: Status: Acute (3) Pulmonary edema: Status: Acute (4) Acute hyperkalemia: Status: Acute (5) Acute on chronic kidney failure: Status: Acute (6) Hypertensive emergency: Status: Acute (7) Hyponatremia: Status: Acute (8) Hyperkalemia: Status: Acute (9) Lactic acidosis due to diabetes mellitus: Status: Acute (10) Diabetic ketoacidosis: Status: Acute (11) Hypertensive urgency: Status: Acute (12) Acute kidney injury superimposed on CKD: Status: Acute (13) Abdominal pain: Status: Acute (14) Pancreatitis: Status: Acute (15) Vitamin D deficiency: Status: Acute (16) Hypocalcemia: Status: Acute (17) Background diabetic retinopathy associated with type 2 diabetes mellitus: Status: Acute (18) Hyperlipidemia LDL goal <70: Status: Acute (19) Diabetic polyneuropathy associated with type 1 diabetes mellitus: Status: Acute (20) Acid reflux: Status: Acute (21) Diabetes type 1, uncontrolled: Status: Acute (22) 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: Status: Acute Plan So at this point we will maintain the ventilator for now modify his fluids but still kidney to keep them going continue with feedings and await the culture results replace magnesium and continue to taken through his withdrawal. And reassess him on when the lighten sedation in the morning for his mental status Quality Stroke Does the patient have a stroke diagnosis?: No VTE Prior VTE?: No VTE Risk Level:: Medical - moderate - high VTE Device Contraindication: N/A - Device Ordered VTE Drug Contraindication: Treatment Not Indicated
--- NOTE | 2021-07-31 17:56 | PC.NURSE ---
Elevated blood sugar this morning > 600. Also hyperkalemic. Patient autodiuresing; continues to be febrile. Discussed with MD. Orders given. Reg insulin IV bolus administered. Lispro sliding scale given and standing lispro dose increased by MD and given. Magnesium replaced and IVF with dextrose held. Labs repeated at 12 p. Blood sugar remained elevated and K normalized. Insulin given as ordered by covering nurse. Plan to recheck blood sugar now and report to .
[2021-07-31 18:11] LABS: Glucose, Whole Blood 386 mg/dL (60-115)
[2021-07-31] MEDS: Insulin Glargine,Hum.rec.anlog 100 UNIT/ML 10 ML VIAL 40 UNIT SUBCUT (18:57)
[2021-07-31] MEDS: carvediloL 6.25 MG TABLET PO (18:58)
[2021-07-31 19:07] LABS: Anion Gap 16 (12-20); Blood Urea Nitrogen 58 mg/dL (9-16); Calcium 8.7 mg/dL (8.4-10.2); Carbon Dioxide 25 mmol/L (22-29); Chloride 107 mmol/L (96-108); Creatinine Clr Calc Pharmacy 23.3; Estimated Glomerular Filt Rate 16; Glucose Random 474 mg/dL (60-115); Potassium 4.9 mmol/L (3.3-5.1); Sodium 143 mmol/L (135-145)
--- NOTE | 2021-07-31 19:33 | PC.NURSE ---
Lab called with critical glucose level. Reported to Luzmaria CANSECO. She will review lab results and address. Marquisezem given for elevated BP.
[2021-07-31 19:39] LABS: Basophils Percent Auto 0.4 % (0-2); Eosinophils Absolute Auto 0.3 X10*3/uL (0.0-0.4); Eosinophils Percent Auto 2.8 % (0-4); Hemoglobin 10.5 g/dl (14.0-18.0); Imm Gran Abs Auto 0.07 X10*3/uL (0.00-0.03); Imm Gran Pct Auto 0.6 % (0.0-0.4); Lymphocytes Absolute Auto 1.4 X10*3/uL (1.2-4.9); Lymphocytes Percent Auto 12.3 % (20-40); Mean Corpuscular HGB Conc 33.9 g/dl (31.0-36.0); Mean Corpuscular Hemoglobin 29.9 pg (27.0-33.0); Mean Corpuscular Volume 88.3 fL (80.0-98.0); Mean Platelet Volume 10.2 fL (9.4-12.4); Monocytes Absolute Auto 0.9 X10*3/uL (0.1-1.2); Monocytes Percent Auto 8.3 % (2-11); Neutrophils Absolute Auto 8.4 x10*3/uL (2.0-8.3); Neutrophils Percent Auto 75.6 % (45-73); Platelet Count 204 X10*3/uL (160-400); Red Blood Count 3.51 X10*6/uL (4.60-5.80); Red Cell Distribution Width 12.3 % (11.0-16.0); White Blood Count 11.1 X10*3/uL (4.8-10.8)
[2021-07-31 19:50] LABS: MANUAL DIFF FLAG NO
[2021-07-31] MEDS: Insulin Regular, Human 100 UNIT/ML 3 ML VIAL 8 UNIT IVPUSH (20:09)
[2021-07-31 20:46] LABS: Appearance Urine CLEAR; Color Urine YELLOW; Glucose Urine UA >=1000 MG/DL (NEG); Leukocyte Esterase Urine NEG (NEG); Nitrite Urine NEG (NEG); PH 5.5 (5.0-8.0); Specific Gravity - Urine 1.025 (1.005-1.025); Urine Blood 1+ (NEG); Urine Ketones NEG (NEG); Urine Protein 2+ MG/DL (NEG-TRACE)
[2021-07-31 20:55] LABS: Mucus Urine 2+ /LPF; Renal Epithelial Cells Urine 2+ /LPF; Squamous Epithelial Cell Urine 1+ /LPF; WBC Urine 0 /HPF (0-4)
[2021-07-31 20:56] LABS: Amorphous Sediment Urine 2+ /LPF
[2021-07-31 20:59] LABS: Glucose, Whole Blood 234 mg/dL (60-115)
[2021-07-31] MEDS: vancomycin HCL 1,500 MG in 0.9 % Sodium Chloride 500 ML 333.33 MG IV (21:36)
[2021-07-31 22:28] LABS: Glucose, Whole Blood 155 mg/dL (60-115)
[2021-08-01] VITALS (42 sets, daily range): BP systolic 68–164; BP diastolic 33–109; PULSE 88–135; RESP 14–26; TEMP 34.2–39.2; O2SAT 91–100; BMI 26.3
[2021-08-01 00:20] LABS: Glucose, Whole Blood 139 mg/dL (60-115)
[2021-08-01] MEDS: Insulin Lispro 100 UNIT/ML 3 ML VIAL SUBCUT ×4 (01:52→17:56)
[2021-08-01] MEDS: Chlorhexidine Gluc Oral Rinse 15 ML MOUTHWASH BUCCAL ×3 (01:52→17:51)
[2021-08-01] MEDS: propofoL 1,000 MG/100 ML VIAL 13.96 MG IVCONT (02:52)
[2021-08-01 05:14] LABS: VBG Base Excess 2.2 mmol/L; VBG HCO3 26 mmol/L (22-26); VBG pCO2 36 mmHg; VBG pH 7.45 (7.32-7.43); VBG pO2 47 mmHg
[2021-08-01 05:21] LABS: MANUAL DIFF FLAG NO
[2021-08-01 05:25] LABS: Basophils Percent Auto 0.2 % (0-2); Eosinophils Absolute Auto 0.5 X10*3/uL (0.0-0.4); Eosinophils Percent Auto 3.8 % (0-4); Hematocrit 29.8 % (42.0-52.0); Hemoglobin 9.9 g/dl (14.0-18.0); Imm Gran Pct Auto 0.8 % (0.0-0.4); Lymphocytes Absolute Auto 1.5 X10*3/uL (1.2-4.9); Lymphocytes Percent Auto 12.7 % (20-40); Mean Corpuscular HGB Conc 33.2 g/dl (31.0-36.0); Mean Corpuscular Hemoglobin 29.8 pg (27.0-33.0); Mean Corpuscular Volume 89.8 fL (80.0-98.0); Mean Platelet Volume 9.9 fL (9.4-12.4); Monocytes Absolute Auto 1.1 X10*3/uL (0.1-1.2); Monocytes Percent Auto 9.1 % (2-11); Neutrophils Absolute Auto 8.8 x10*3/uL (2.0-8.3); Neutrophils Percent Auto 73.4 % (45-73); Platelet Count 196 X10*3/uL (160-400); Red Blood Count 3.32 X10*6/uL (4.60-5.80); Red Cell Distribution Width 12.6 % (11.0-16.0); Venous Blood Gas Refer to POC result
[2021-08-01] MEDS: Pantoprazole Sodium 40 MG/10 ML VIAL IVPUSH (05:29)
[2021-08-01 05:37] LABS: Glucose, Whole Blood 162 mg/dL (60-115)
[2021-08-01 05:45] LABS: B Type Natriuretic Peptide 60 pg/mL (<100)
[2021-08-01 05:49] LABS: Anion Gap 15 (12-20); Blood Urea Nitrogen 55 mg/dL (9-16); Calcium 8.3 mg/dL (8.4-10.2); Carbon Dioxide 25 mmol/L (22-29); Chloride 113 mmol/L (96-108); Estimated Glomerular Filt Rate 16; Glucose Random 171 mg/dL (60-115); Magnesium 2.2 mg/dL (1.6-2.6); Phosphorus 4.1 mg/dL (2.7-4.5); Potassium 4.4 mmol/L (3.3-5.1); Sodium 149 mmol/L (135-145)
--- NOTE | 2021-08-01 06:16 | MHC.PIE ---
Shift eval 11p-7a: Patient remains intubated - 8 ETT @ 23cm - tube ETT cm changed by 1-2 cm r/t tube tamer changed in the evening. Volumes maintained - no issues with ETT placement. Patient sedated w/ versed & propofol. Attempted to wean Propofol, but unable r/t HR 130's, BP elevated 160's/100's, patient restless when attempting to wean. Patient repos Q2H. Temp still elevated - up to 102. Luzmaria PA aware of temp and HR. Covering patient w/ sliding scale insulin - POC glucose <200 now.
[2021-08-01] MEDS: propofoL 1,000 MG/100 ML VIAL 23.27 MG IVCONT ×3 (07:57→21:23)
[2021-08-01] MEDS: Insulin Glargine,Hum.rec.anlog 100 UNIT/ML 10 ML VIAL 40 UNIT SUBCUT ×2 (07:58→15:15)
[2021-08-01] MEDS: carvediloL 6.25 MG TABLET PO ×2 (07:58→19:53)
--- NOTE | 2021-08-01 08:18 | MHC.CLN ---
F/U PT REMAINS INTUBATED AND SEDATED PT RECEIVING GLUCERNA AT MAX GOAL RATE 50ML/HR WITH 30ML PROSOURCE BID AND 300CC FREE WATER FLUSHES Q 4 HRS PROVIDES 1320KCALS (1934KCALS WITH SEDATION; 27KCALS/KG), 80G PROTEIN (1.1G/KG), 2824ML TOTAL WATER FROM FORMULA AND FLUSHES (40ML/KG) CAN ADJUST FREE WATER FLUSHES NEEDED; MONITOR SERUM NA MONITOR TOLERANCE, RESIDUALS, AND LYTES
[2021-08-01] MEDS: dexmedeTOMIDidine HCL/NS 400 MCG/100 ML INFUS..BTL 18.48 MCG IVCONT ×3 (09:52→18:10)
[2021-08-01] MEDS: Heparin Sodium,Porcine 5,000 UNIT/ML VIAL 5000 UNIT SUBCUT ×2 (10:35→17:55)
[2021-08-01 12:05] LABS: Glucose, Whole Blood 164 mg/dL (60-115)
--- NOTE | 2021-08-01 12:48 | PM.CCPN ---
Subjective Subjective Date of Service: 08/01/21 Interval History: 35-year-old gentleman with underlying type 1 diabetes mellitus, legally blind, polysubstance abuse, chronic kidney disease admitted on 07/29/2021 with alteration of mental status secondary to substance abuse and respiratory failure requiring intubation and ventilatory support, further complicated by acute on chronic kidney disease and hyperglycemia. No events overnight. Continues to require high dose of sedative drips. Critical Care Time (minutes): 45 Physical Exam Vital Signs: Vital Signs: Last Vital Signs Temp 102.6 F H 08/01/21 12:00 Pulse 113 H 08/01/21 12:00 Resp 16 08/01/21 12:00 BP 109/62 08/01/21 12:00 Pulse Ox 98 08/01/21 12:00 O2 Del Method 08/01/21 12:00 FiO2 30 08/01/21 12:00 Oxygen Flow Rate 15 07/29/21 14:57 BMI result Body Mass Index 26.3 Const: General: no acute distress and other ( Altered and combative with lessening of sedation) Neck: Neck: Yes no lymphadenopathy, Yes trachea midline and Yes supple Resp: Auscultation: clear to auscultation bilaterally Cardio: Rate: tachycardic Rhythm: regular rhythm Heart sounds: no gallops, no murmurs and no rubs GI: Palpation (GI): Soft to palpation and Other GI palpation findings present ( Nontender) Auscultation: normal bowel sounds Extrem: General: Yes no pedal edema, No clubbing and No cyanosis Objective Data Labs CBC & Chem 7: 08/01/21 05:02 08/01/21 05:02 Labs: Laboratory Results - last 24 hr 07/31/21 07/31/21 07/31/21 12:38 18:07 18:18 WBC RBC Hgb Hct MCV MCH MCHC RDW Plt Count MPV Immature Gran % (Auto) Neut % (Auto) Lymph % (Auto) [place] % (Auto) Eos % (Auto) Baso % (Auto) Lymph # (Auto) [place] # (Auto) Eos # (Auto) Baso # (Auto) Abs Immat Gran (auto) Absolute Neuts (auto) Absolute Nucleated RBC Nucleated RBC % (auto) VBG pH VBG pCO2 VBG pO2 VBG HCO3 VBG O2 Saturation VBG Base Excess Sodium 140 Potassium 4.9 Chloride 106 Carbon Dioxide 25 Anion Gap 14 BUN 65 H Creatinine 4.79 H* Estim Creat Clear Calc 21.0 Estimated GFR 14 POC Glucose 386 H* Random Glucose 636 H* Calcium 8.3 L Phosphorus Magnesium B-Natriuretic Peptide Urine Color Urine Appearance Urine pH Ur Specific [place] Urine Protein Urine Glucose (UA) Urine Ketones Urine Blood Urine Nitrite Ur Leukocyte Esterase Urine RBC Urine WBC Ur Squamous Epith Cells Ur Renal Epithelial Cell Amorphous Sediment Urine Bacteria Hyaline Casts Granular Casts Urine Mucus Blood Type O Positive Antibody Screen NEGATIVE 07/31/21 07/31/21 07/31/21 18:19 19:25 20:16 WBC 11.1 H RBC 3.51 L D Hgb 10.5 L D Hct 31.0 L D MCV 88.3 MCH 29.9 MCHC 33.9 RDW 12.3 Plt Count 204 D MPV 10.2 Immature Gran % (Auto) 0.6 H Neut % (Auto) 75.6 H Lymph % (Auto) 12.3 L [place] % (Auto) 8.3 Eos % (Auto) 2.8 Baso % (Auto) 0.4 Lymph # (Auto) 1.4 [place] # (Auto) 0.9 Eos # (Auto) 0.3 Baso # (Auto) 0.0 Abs Immat Gran (auto) 0.07 H Absolute Neuts (auto) 8.4 H Absolute Nucleated RBC 0.000 Nucleated RBC % (auto) 0.0 VBG pH VBG pCO2 VBG pO2 VBG HCO3 VBG O2 Saturation VBG Base Excess Sodium 143 Potassium 4.9 Chloride 107 Carbon Dioxide 25 Anion Gap 16 BUN 58 H Creatinine 4.33 H* Estim Creat Clear Calc 23.3 Estimated GFR 16 POC Glucose Random Glucose 474 H* Calcium 8.7 Phosphorus Magnesium B-Natriuretic Peptide Urine Color YELLOW Urine Appearance CLEAR Urine pH 5.5 Ur Specific [place] 1.025 Urine Protein 2+ H Urine Glucose (UA) >=1000 H Urine Ketones NEG Urine Blood 1+ H Urine Nitrite NEG Ur Leukocyte Esterase NEG Urine RBC 5-9 H Urine WBC 0 Ur Squamous Epith Cells 1+ Ur Renal Epithelial Cell 2+ Amorphous Sediment 2+ Urine Bacteria NONE Hyaline Casts 1-4 Granular Casts 15-29 Urine Mucus 2+ Blood Type Antibody Screen 07/31/21 07/31/21 08/01/21 20:55 22:25 00:17 WBC RBC Hgb Hct MCV MCH MCHC RDW Plt Count MPV Immature Gran % (Auto) Neut % (Auto) Lymph % (Auto) [place] % (Auto) Eos % (Auto) Baso % (Auto) Lymph # (Auto) [place] # (Auto) Eos # (Auto) Baso # (Auto) Abs Immat Gran (auto) Absolute Neuts (auto) Absolute Nucleated RBC Nucleated RBC % (auto) VBG pH VBG pCO2 VBG pO2 VBG HCO3 VBG O2 Saturation VBG Base Excess Sodium Potassium Chloride Carbon Dioxide Anion Gap BUN Creatinine Estim Creat Clear Calc Estimated GFR POC Glucose 234 H 155 H 139 H Random Glucose Calcium Phosphorus Magnesium B-Natriuretic Peptide Urine Color Urine Appearance Urine pH Ur Specific [place] Urine Protein Urine Glucose (UA) Urine Ketones Urine Blood Urine Nitrite Ur Leukocyte Esterase Urine RBC Urine WBC Ur Squamous Epith Cells Ur Renal Epithelial Cell Amorphous Sediment Urine Bacteria Hyaline Casts Granular Casts Urine Mucus Blood Type Antibody Screen 08/01/21 08/01/21 08/01/21 05:02 05:02 05:02 WBC 12.0 H RBC 3.32 L Hgb 9.9 L Hct 29.8 L MCV 89.8 MCH 29.8 MCHC 33.2 RDW 12.6 Plt Count 196 MPV 9.9 Immature Gran % (Auto) 0.8 H Neut % (Auto) 73.4 H Lymph % (Auto) 12.7 L [place] % (Auto) 9.1 Eos % (Auto) 3.8 Baso % (Auto) 0.2 Lymph # (Auto) 1.5 [place] # (Auto) 1.1 Eos # (Auto) 0.5 H Baso # (Auto) 0.0 Abs Immat Gran (auto) 0.10 H Absolute Neuts (auto) 8.8 H Absolute Nucleated RBC 0.000 Nucleated RBC % (auto) 0.0 VBG pH VBG pCO2 VBG pO2 VBG HCO3 VBG O2 Saturation VBG Base Excess Sodium 149 H Potassium 4.4 Chloride 113 H Carbon Dioxide 25 Anion Gap 15 BUN 55 H Creatinine 4.20 H* Estim Creat Clear Calc 24.0 Estimated GFR 16 POC Glucose Random Glucose 171 H D Calcium 8.3 L Phosphorus 4.1 Magnesium 2.2 B-Natriuretic Peptide 60 Urine Color Urine Appearance Urine pH Ur Specific [place] Urine Protein Urine Glucose (UA) Urine Ketones Urine Blood Urine Nitrite Ur Leukocyte Esterase Urine RBC Urine WBC Ur Squamous Epith Cells Ur Renal Epithelial Cell Amorphous Sediment Urine Bacteria Hyaline Casts Granular Casts Urine Mucus Blood Type Antibody Screen 08/01/21 08/01/21 08/01/21 05:06 05:31 12:01 WBC RBC Hgb Hct MCV MCH MCHC RDW Plt Count MPV Immature Gran % (Auto) Neut % (Auto) Lymph % (Auto) [place] % (Auto) Eos % (Auto) Baso % (Auto) Lymph # (Auto) [place] # (Auto) Eos # (Auto) Baso # (Auto) Abs Immat Gran (auto) Absolute Neuts (auto) Absolute Nucleated RBC Nucleated RBC % (auto) VBG pH 7.45 H VBG pCO2 36 VBG pO2 47 VBG HCO3 26 VBG O2 Saturation 78.0 VBG Base Excess 2.2 Sodium Potassium Chloride Carbon Dioxide Anion Gap BUN Creatinine Estim Creat Clear Calc Estimated GFR POC Glucose 162 H 164 H Random Glucose Calcium Phosphorus Magnesium B-Natriuretic Peptide Urine Color Urine Appearance Urine pH Ur Specific [place] Urine Protein Urine Glucose (UA) Urine Ketones Urine Blood Urine Nitrite Ur Leukocyte Esterase Urine RBC Urine WBC Ur Squamous Epith Cells Ur Renal Epithelial Cell Amorphous Sediment Urine Bacteria Hyaline Casts Granular Casts Urine Mucus Blood Type Antibody Screen Microbiology Microbiology Results: Microbiology 08/01/21 01:24 Sputum - Suctioned Gram Stain - Final 07/29/21 15:09 Blood - Venous Blood Culture - Preliminary No growth after 48 hours. 07/29/21 15:12 Blood - Venous Blood Culture - Preliminary No growth after 48 hours. Progress Note: A&P Assessment and plan (1) Withdrawal from recreational drug: Status: Acute (2) Respiratory failure: Status: Acute (3) Acute on chronic kidney failure: Status: Acute (4) Diabetes type 1, uncontrolled: Status: Acute (5) Background diabetic retinopathy associated with type 2 diabetes mellitus: Status: Acute (6) Toxic encephalopathy: Status: Acute Plan Assessment: 35-year-old gentleman with underlying advanced diabetes mellitus with blindness and chronic kidney disease admitted with alteration of mental status secondary to substance abuse requiring ventilatory support further complicated by acute on chronic kidney failure Plan: Neuro: toxic encephalopathy likely as a withdrawal from substance abuse. Continues with significant agitation with lessening of sedative drips. Continue to titrate off as tolerated. Cardiac: No acute issues. Pulmonary: acute respiratory failure requiring ventilatory support. Continue to titrate off as tolerated. Renal: Acute on chronic kidney failure, improving. Non oliguric. Continue to monitor renal indices and urine output. Endo: No acute issues. Underlying type 1 diabetes mellitus, continue on subcutaneous insulin. GI: No acute issues. ID: Empirically covered with Unasyn. Heme/Onc: No acute issues. Psych: No acute issues. Miscellaneous: No acute issues. Prophylaxis: Heparin, ppi Diet: tube feeds Critical care time spent: 45 minutes Quality Stroke Does the patient have a stroke diagnosis?: No VTE Prior VTE?: No VTE Risk Level:: Medical - moderate - high VTE Device Contraindication: N/A - Device Ordered VTE Drug Contraindication: Treatment Not Indicated
[2021-08-01] MEDS: Ampicillin Sodium/Sulbactam Na 3 GM in 0.9 % Sodium Chloride 100 ML IV (13:38)
[2021-08-01] MEDS: propofoL 1,000 MG/100 ML VIAL 16.29 MG IVCONT (16:49)
[2021-08-01 17:55] LABS: Glucose, Whole Blood 157 mg/dL (60-115)
[2021-08-01] MEDS: dexmedeTOMIDidine HCL/NS 400 MCG/100 ML INFUS..BTL 27.71 MCG IVCONT (21:52)
[2021-08-01 23:54] LABS: Glucose, Whole Blood 153 mg/dL (60-115)
[2021-08-02] VITALS (34 sets, daily range): BP systolic 112–151; BP diastolic 63–85; PULSE 80–91; RESP 8–20; TEMP 34–39; O2SAT 94–99; BMI 27.6
[2021-08-02] MEDS: Insulin Lispro 100 UNIT/ML 3 ML VIAL SUBCUT (00:06)
[2021-08-02] MEDS: Chlorhexidine Gluc Oral Rinse 15 ML MOUTHWASH BUCCAL ×3 (00:06→17:07)
[2021-08-02] MEDS: Ampicillin Sodium/Sulbactam Na 3 GM in 0.9 % Sodium Chloride 100 ML IV ×2 (00:06→14:28)
[2021-08-02] MEDS: dexmedeTOMIDidine HCL/NS 400 MCG/100 ML INFUS..BTL 27.71 MCG IVCONT ×7 (01:22→22:04)
[2021-08-02] MEDS: propofoL 1,000 MG/100 ML VIAL 23.27 MG IVCONT ×2 (01:22→04:53)
[2021-08-02] MEDS: Heparin Sodium,Porcine 5,000 UNIT/ML VIAL 5000 UNIT SUBCUT ×3 (01:23→18:35)
[2021-08-02 05:21] LABS: Glucose, Whole Blood 91 mg/dL (60-115)
[2021-08-02 05:25] LABS: VBG Base Excess 0.3 mmol/L; VBG HCO3 24 mmol/L (22-26); VBG pCO2 37 mmHg; VBG pH 7.42 (7.32-7.43); VBG pO2 45 mmHg
[2021-08-02] MEDS: Pantoprazole Sodium 40 MG/10 ML VIAL IVPUSH (05:31)
[2021-08-02 05:38] LABS: Basophils Percent Auto 0.3 % (0-2); Eosinophils Absolute Auto 0.7 X10*3/uL (0.0-0.4); Eosinophils Percent Auto 4.8 % (0-4); Hematocrit 27.1 % (42.0-52.0); Hemoglobin 8.8 g/dl (14.0-18.0); Imm Gran Abs Auto 0.13 X10*3/uL (0.00-0.03); Imm Gran Pct Auto 0.9 % (0.0-0.4); Lymphocytes Absolute Auto 2.4 X10*3/uL (1.2-4.9); Lymphocytes Percent Auto 17.1 % (20-40); MANUAL DIFF FLAG SCAN; Mean Corpuscular HGB Conc 32.5 g/dl (31.0-36.0); Mean Corpuscular Volume 92.5 fL (80.0-98.0); Mean Platelet Volume 10.4 fL (9.4-12.4); Monocytes Absolute Auto 1.5 X10*3/uL (0.1-1.2); Neutrophils Absolute Auto 9.2 x10*3/uL (2.0-8.3); Neutrophils Percent Auto 65.9 % (45-73); Platelet Count 189 X10*3/uL (160-400); Red Blood Count 2.93 X10*6/uL (4.60-5.80); Red Cell Distribution Width 12.8 % (11.0-16.0); SCAN SMEAR FLAG 1; White Blood Count 13.9 X10*3/uL (4.8-10.8)
[2021-08-02 06:03] LABS: Albumin Level 2.7 g/dL (3.5-5.0); Anion Gap 14 (12-20); Blood Urea Nitrogen 57 mg/dL (9-16); Calcium 7.4 mg/dL (8.4-10.2); Carbon Dioxide 25 mmol/L (22-29); Chloride 112 mmol/L (96-108); Creatinine Clr Calc Pharmacy 22.1; Estimated Glomerular Filt Rate 15; Glucose Random 92 mg/dL (60-115); Phosphorus 5.1 mg/dL (2.7-4.5); Potassium 4.4 mmol/L (3.3-5.1); SLIDE REVIEW VERIFIED; Sodium 147 mmol/L (135-145)
[2021-08-02 06:56] LABS: Venous Blood Gas Refer to POC result
[2021-08-02] MEDS: Albumin Human 25 % 100 ML IV ×3 (08:00→20:02)
[2021-08-02] MEDS: carvediloL 6.25 MG TABLET PO ×2 (08:03→20:02)
[2021-08-02 08:06] LABS: Glucose, Whole Blood 99 mg/dL (60-115)
[2021-08-02] MEDS: propofoL 1,000 MG/100 ML VIAL 11.64 MG IVCONT ×3 (09:20→22:56)
--- NOTE | 2021-08-02 10:11 | MHC.CLN ---
F/U PT REMAINS INTUBATED AND SEDATED PT RECEIVING GLUCERNA AT MAX GOAL RATE 50ML/HR WITH 30ML PROSOURCE BID AND 300CC FREE WATER FLUSHES Q 4 HRS PROVIDES 1320KCALS (1627KCALS WITH SEDATION; 23KCALS/KG BASED ON CMW), 80G PROTEIN (1.1G/KG), 2824ML TOTAL WATER FROM FORMULA AND FLUSHES (40ML/KG) TOLERATING TF WITH LOW RESIDUALS PER NSG CAN ADJUST FREE WATER FLUSHES NEEDED; MONITOR SERUM NA (08/02 =147 SLIGHT IMPROVEMENT) CONTINUE TO MONITOR TOLERANCE, RESIDUALS, AND LYTES
[2021-08-02 11:43] LABS: Glucose, Whole Blood 115 mg/dL (60-115)
--- NOTE | 2021-08-02 11:49 | MHC.CM.PN ---
Patient continues in ICU. Case Management will follow along for discharge planning needs.
--- NOTE | 2021-08-02 11:56 | PM.CCPN ---
Subjective Subjective Date of Service: 08/02/21 Interval History: 35-year-old gentleman with underlying type 1 diabetes mellitus, legally blind, polysubstance abuse, chronic kidney disease admitted on 07/29/2021 with alteration of mental status secondary to substance abuse and respiratory failure requiring intubation and ventilatory support, further complicated by acute on chronic kidney disease and hyperglycemia. No events overnight. Continues to require high dose of sedative drips, with slow improvement. Critical Care Time (minutes): 45 Physical Exam Vital Signs: Vital Signs: Last Vital Signs Temp 100.9 F H 08/02/21 11:00 Pulse 86 08/02/21 11:00 Resp 16 08/02/21 11:00 BP 143/79 H 08/02/21 11:53 Pulse Ox 97 08/02/21 11:00 O2 Del Method 08/02/21 11:00 FiO2 30 08/02/21 11:32 Oxygen Flow Rate 15 07/29/21 14:57 BMI result Body Mass Index 27.6 Const: General: no acute distress and other ( Sedated on the vent, agitated with sedation vacations) Neck: Neck: Yes no lymphadenopathy, Yes trachea midline and Yes supple Resp: Effort & Inspection: normal respiratory effort and no respiratory distress Auscultation: clear to auscultation bilaterally Cardio: Rate: regular rate Rhythm: regular rhythm Heart sounds: no gallops, no murmurs and no rubs GI: Palpation (GI): Soft to palpation and Other GI palpation findings present ( Nontender) Auscultation: normal bowel sounds Extrem: General: Yes no pedal edema, No clubbing and No cyanosis Objective Data Labs CBC & Chem 7: 08/02/21 05:20 08/02/21 05:20 Labs: Laboratory Results - last 24 hr 08/01/21 08/01/21 08/01/21 12:01 17:53 23:50 WBC RBC Hgb Hct MCV MCH MCHC RDW Plt Count MPV Immature Gran % (Auto) Neut % (Auto) Lymph % (Auto) [place] % (Auto) Eos % (Auto) Baso % (Auto) Lymph # (Auto) [place] # (Auto) Eos # (Auto) Baso # (Auto) Abs Immat Gran (auto) Absolute Neuts (auto) Absolute Nucleated RBC Nucleated RBC % (auto) Smear Tech's Comments VBG pH VBG pCO2 VBG pO2 VBG HCO3 VBG O2 Saturation VBG Base Excess Sodium Potassium Chloride Carbon Dioxide Anion Gap BUN Creatinine Estim Creat Clear Calc Estimated GFR POC Glucose 164 H 157 H 153 H Random Glucose Calcium Phosphorus Magnesium Albumin 08/02/21 08/02/21 08/02/21 05:16 05:18 05:20 WBC 13.9 H RBC 2.93 L Hgb 8.8 L Hct 27.1 L MCV 92.5 MCH 30.0 MCHC 32.5 RDW 12.8 Plt Count 189 MPV 10.4 Immature Gran % (Auto) 0.9 H Neut % (Auto) 65.9 Lymph % (Auto) 17.1 L [place] % (Auto) 11.0 Eos % (Auto) 4.8 H Baso % (Auto) 0.3 Lymph # (Auto) 2.4 [place] # (Auto) 1.5 H Eos # (Auto) 0.7 H Baso # (Auto) 0.0 Abs Immat Gran (auto) 0.13 H Absolute Neuts (auto) 9.2 H Absolute Nucleated RBC 0.000 Nucleated RBC % (auto) 0.0 Smear Tech's Comments VERIFIED VBG pH 7.42 VBG pCO2 37 VBG pO2 45 VBG HCO3 24 VBG O2 Saturation 75.0 VBG Base Excess 0.3 Sodium Potassium Chloride Carbon Dioxide Anion Gap BUN Creatinine Estim Creat Clear Calc Estimated GFR POC Glucose 91 Random Glucose Calcium Phosphorus Magnesium Albumin 08/02/21 08/02/21 08/02/21 05:20 08:02 11:36 WBC RBC Hgb Hct MCV MCH MCHC RDW Plt Count MPV Immature Gran % (Auto) Neut % (Auto) Lymph % (Auto) [place] % (Auto) Eos % (Auto) Baso % (Auto) Lymph # (Auto) [place] # (Auto) Eos # (Auto) Baso # (Auto) Abs Immat Gran (auto) Absolute Neuts (auto) Absolute Nucleated RBC Nucleated RBC % (auto) Smear Tech's Comments VBG pH VBG pCO2 VBG pO2 VBG HCO3 VBG O2 Saturation VBG Base Excess Sodium 147 H Potassium 4.4 Chloride 112 H Carbon Dioxide 25 Anion Gap 14 BUN 57 H Creatinine 4.53 H* Estim Creat Clear Calc 22.1 Estimated GFR 15 POC Glucose 99 115 Random Glucose 92 D Calcium 7.4 L D Phosphorus 5.1 H Magnesium 2.0 Albumin 2.7 L D Microbiology Microbiology Results: Microbiology 08/01/21 01:24 Sputum - Suctioned Gram Stain - Final 08/01/21 01:24 Sputum - Suctioned Sputum Culture - Preliminary Culture in progress. 07/31/21 19:24 Blood - Venous Blood Culture - Preliminary No growth after 24 hours. 07/31/21 19:24 Blood - Venous Blood Culture - Preliminary No growth after 24 hours. 07/29/21 15:09 Blood - Venous Blood Culture - Preliminary No growth after 48 hours. 07/29/21 15:12 Blood - Venous Blood Culture - Preliminary No growth after 48 hours. Progress Note: A&P Assessment and plan (1) Toxic encephalopathy: Status: Acute (2) Withdrawal from recreational drug: Status: Acute (3) Respiratory failure: Status: Acute (4) Acute on chronic kidney failure: Status: Acute (5) Diabetes type 1, uncontrolled: Status: Acute Plan Assessment: 35-year-old gentleman with underlying advanced diabetes mellitus with blindness and chronic kidney disease admitted with alteration of mental status secondary to substance abuse requiring ventilatory support further complicated by acute on chronic kidney failure Plan: Neuro: Toxic encephalopathy likely as a withdrawal from substance abuse. Continues with significant agitation with lessening of sedative drips with slow improvement. Continue to titrate off as tolerated. Cardiac: No acute issues. Pulmonary: Acute respiratory failure requiring ventilatory support. Continue to titrate off as tolerated. Renal: Acute on chronic kidney failure. Non oliguric. Continue to monitor renal indices and urine output. Endo: No acute issues. Underlying type 1 diabetes mellitus, continue on subcutaneous insulin. GI: No acute issues. ID: Empirically covered with Unasyn. Heme/Onc: No acute issues. Psych: No acute issues. Miscellaneous: No acute issues. Prophylaxis: Heparin, ppi Diet: tube feeds Critical care time spent: 45 minutes Quality Stroke Does the patient have a stroke diagnosis?: No VTE Prior VTE?: No VTE Risk Level:: Medical - moderate - high VTE Device Contraindication: N/A - Device Ordered VTE Drug Contraindication: Treatment Not Indicated
--- NOTE | 2021-08-02 14:24 | PC.NURSE ---
PATIENTS BROUGHT HOME ALL OF PATIENTS BELONGINGS. UPDATED ON PATIENTS STATUS WITH THE HELP OF THE [employer].
[2021-08-02 14:33] LABS: Glucose, Whole Blood 134 mg/dL (60-115)
[2021-08-02 14:36] LABS: Haptoglobin 229 mg/dL (43-212)
[2021-08-02 17:42] LABS: Glucose, Whole Blood 136 mg/dL (60-115)
[2021-08-02 23:50] LABS: Glucose, Whole Blood 192 mg/dL (60-115)
[2021-08-03] VITALS (33 sets, daily range): BP systolic 108–182; BP diastolic 62–90; PULSE 78–121; RESP 15–39; TEMP 34–38.4; O2SAT 93–99; BMI 28.0
[2021-08-03] MEDS: Chlorhexidine Gluc Oral Rinse 15 ML MOUTHWASH BUCCAL ×2 (00:13→08:04)
[2021-08-03] MEDS: Insulin Lispro 100 UNIT/ML 3 ML VIAL SUBCUT ×4 (00:13→17:16)
[2021-08-03] MEDS: Ampicillin Sodium/Sulbactam Na 3 GM in 0.9 % Sodium Chloride 100 ML IV ×2 (00:13→12:33)
[2021-08-03] MEDS: dexmedeTOMIDidine HCL/NS 400 MCG/100 ML INFUS..BTL 27.71 MCG IVCONT ×3 (01:29→08:10)
[2021-08-03] MEDS: Albumin Human 25 % 100 ML IV (01:30)
[2021-08-03] MEDS: Heparin Sodium,Porcine 5,000 UNIT/ML VIAL 5000 UNIT SUBCUT ×3 (01:30→17:16)
[2021-08-03] MEDS: propofoL 1,000 MG/100 ML VIAL 9.31 MG IVCONT (04:21)
[2021-08-03] MEDS: Pantoprazole Sodium 40 MG/10 ML VIAL IVPUSH (05:11)
[2021-08-03 05:22] LABS: VBG HCO3 22 mmol/L (22-26); VBG pCO2 34 mmHg; VBG pH 7.43 (7.32-7.43); VBG pO2 68 mmHg
[2021-08-03 05:24] LABS: Venous Blood Gas Refer to POC result
[2021-08-03 05:37] LABS: MANUAL DIFF FLAG NO
[2021-08-03 05:48] LABS: Basophils Percent Auto 0.1 % (0-2); Eosinophils Absolute Auto 0.5 X10*3/uL (0.0-0.4); Eosinophils Percent Auto 4.4 % (0-4); Hematocrit 21.8 % (42.0-52.0); Hemoglobin 7.3 g/dl (14.0-18.0); Imm Gran Abs Auto 0.12 X10*3/uL (0.00-0.03); Imm Gran Pct Auto 1.2 % (0.0-0.4); Lymphocytes Absolute Auto 1.5 X10*3/uL (1.2-4.9); Lymphocytes Percent Auto 14.8 % (20-40); Mean Corpuscular HGB Conc 33.5 g/dl (31.0-36.0); Mean Corpuscular Hemoglobin 30.2 pg (27.0-33.0); Mean Corpuscular Volume 90.1 fL (80.0-98.0); Mean Platelet Volume 10.8 fL (9.4-12.4); Monocytes Absolute Auto 1.1 X10*3/uL (0.1-1.2); Monocytes Percent Auto 10.9 % (2-11); Neutrophils Percent Auto 68.6 % (45-73); Platelet Count 155 X10*3/uL (160-400); Red Blood Count 2.42 X10*6/uL (4.60-5.80); Red Cell Distribution Width 12.4 % (11.0-16.0); White Blood Count 10.2 X10*3/uL (4.8-10.8)
[2021-08-03 06:05] LABS: Albumin Level 3.5 g/dL (3.5-5.0); Anion Gap 15 (12-20); Blood Urea Nitrogen 57 mg/dL (9-16); Calcium 7.7 mg/dL (8.4-10.2); Carbon Dioxide 23 mmol/L (22-29); Chloride 109 mmol/L (96-108); Creatinine Clr Calc Pharmacy 27.6; Estimated Glomerular Filt Rate 19; Glucose Random 189 mg/dL (60-115); Phosphorus 4.7 mg/dL (2.7-4.5); Potassium 4.3 mmol/L (3.3-5.1); Sodium 143 mmol/L (135-145)
[2021-08-03 06:06] LABS: Glucose, Whole Blood 196 mg/dL (60-115)
[2021-08-03] MEDS: carvediloL 6.25 MG TABLET PO ×2 (08:04→19:50)
[2021-08-03 08:12] LABS: Glucose, Whole Blood 175 mg/dL (60-115)
--- NOTE | 2021-08-03 10:37 | PM.CCPN ---
Subjective Subjective Date of Service: 08/03/21 Interval History: 35-year-old gentleman with underlying type 1 diabetes mellitus, legally blind, polysubstance abuse, chronic kidney disease admitted on 07/29/2021 with alteration of mental status secondary to substance abuse and respiratory failure requiring intubation and ventilatory support, further complicated by acute on chronic kidney disease and hyperglycemia. No events overnight. Significant improvement in sedative drips requirements overnight. Extubated uneventfully this a.m.. Critical Care Time (minutes): 45 Physical Exam Vital Signs: Vital Signs: Last Vital Signs Temp 100.8 F H 08/03/21 10:00 Pulse 87 08/03/21 10:00 Resp 15 08/03/21 10:00 BP 152/74 H 08/03/21 10:00 Pulse Ox 95 08/03/21 10:00 O2 Del Method 08/03/21 10:00 O2 Flow Rate 30 08/03/21 10:00 FiO2 30 08/03/21 09:00 Oxygen Flow Rate 15 07/29/21 14:57 BMI result Body Mass Index 28.0 Const: General: no acute distress, alert and awake Neck: Neck: Yes no lymphadenopathy, Yes trachea midline and Yes supple Resp: Effort & Inspection: normal respiratory effort and no respiratory distress Auscultation: clear to auscultation bilaterally Cardio: Rate: regular rate Rhythm: regular rhythm Heart sounds: no gallops, no murmurs and no rubs GI: Palpation (GI): Soft to palpation and Other GI palpation findings present ( Nontender) Auscultation: normal bowel sounds Extrem: General: Yes no pedal edema, No clubbing and No cyanosis Objective Data Labs CBC & Chem 7: 08/03/21 05:10 08/03/21 05:10 Labs: Laboratory Results - last 24 hr 07/31/21 08/02/21 08/02/21 08:17 11:36 14:30 WBC RBC Hgb Hct MCV MCH MCHC RDW Plt Count MPV Immature Gran % (Auto) Neut % (Auto) Lymph % (Auto) [place] % (Auto) Eos % (Auto) Baso % (Auto) Lymph # (Auto) [place] # (Auto) Eos # (Auto) Baso # (Auto) Abs Immat Gran (auto) Absolute Neuts (auto) Absolute Nucleated RBC Nucleated RBC % (auto) Haptoglobin 229 H VBG pH VBG pCO2 VBG pO2 VBG HCO3 VBG O2 Saturation VBG Base Excess Sodium Potassium Chloride Carbon Dioxide Anion Gap BUN Creatinine Estim Creat Clear Calc Estimated GFR POC Glucose 115 134 H Random Glucose Calcium Phosphorus Magnesium Albumin 08/02/21 08/02/21 08/03/21 17:38 23:46 05:10 WBC 10.2 RBC 2.42 L Hgb 7.3 L Hct 21.8 L MCV 90.1 MCH 30.2 MCHC 33.5 RDW 12.4 Plt Count 155 L MPV 10.8 Immature Gran % (Auto) 1.2 H Neut % (Auto) 68.6 Lymph % (Auto) 14.8 L [place] % (Auto) 10.9 Eos % (Auto) 4.4 H Baso % (Auto) 0.1 Lymph # (Auto) 1.5 [place] # (Auto) 1.1 Eos # (Auto) 0.5 H Baso # (Auto) 0.0 Abs Immat Gran (auto) 0.12 H Absolute Neuts (auto) 7.0 Absolute Nucleated RBC 0.000 Nucleated RBC % (auto) 0.0 Haptoglobin VBG pH VBG pCO2 VBG pO2 VBG HCO3 VBG O2 Saturation VBG Base Excess Sodium Potassium Chloride Carbon Dioxide Anion Gap BUN Creatinine Estim Creat Clear Calc Estimated GFR POC Glucose 136 H 192 H Random Glucose Calcium Phosphorus Magnesium Albumin 08/03/21 08/03/21 08/03/21 05:10 05:13 06:02 WBC RBC Hgb Hct MCV MCH MCHC RDW Plt Count MPV Immature Gran % (Auto) Neut % (Auto) Lymph % (Auto) [place] % (Auto) Eos % (Auto) Baso % (Auto) Lymph # (Auto) [place] # (Auto) Eos # (Auto) Baso # (Auto) Abs Immat Gran (auto) Absolute Neuts (auto) Absolute Nucleated RBC Nucleated RBC % (auto) Haptoglobin VBG pH 7.43 VBG pCO2 34 VBG pO2 68 VBG HCO3 22 VBG O2 Saturation 92.0 VBG Base Excess -1.0 Sodium 143 Potassium 4.3 Chloride 109 H Carbon Dioxide 23 Anion Gap 15 BUN 57 H Creatinine 3.62 H Estim Creat Clear Calc 27.6 Estimated GFR 19 POC Glucose 196 H Random Glucose 189 H D Calcium 7.7 L Phosphorus 4.7 H Magnesium 2.0 Albumin 3.5 D 08/03/21 08:04 WBC RBC Hgb Hct MCV MCH MCHC RDW Plt Count MPV Immature Gran % (Auto) Neut % (Auto) Lymph % (Auto) [place] % (Auto) Eos % (Auto) Baso % (Auto) Lymph # (Auto) [place] # (Auto) Eos # (Auto) Baso # (Auto) Abs Immat Gran (auto) Absolute Neuts (auto) Absolute Nucleated RBC Nucleated RBC % (auto) Haptoglobin VBG pH VBG pCO2 VBG pO2 VBG HCO3 VBG O2 Saturation VBG Base Excess Sodium Potassium Chloride Carbon Dioxide Anion Gap BUN Creatinine Estim Creat Clear Calc Estimated GFR POC Glucose 175 H Random Glucose Calcium Phosphorus Magnesium Albumin Microbiology Microbiology Results: Microbiology 08/01/21 01:24 Sputum - Suctioned Gram Stain - Final 08/01/21 01:24 Sputum - Suctioned Sputum Culture - Preliminary Yeast 07/31/21 19:24 Blood - Venous Blood Culture - Preliminary No growth after 48 hours. 07/31/21 19:24 Blood - Venous Blood Culture - Preliminary No growth after 48 hours. 07/29/21 15:09 Blood - Venous Blood Culture - Preliminary No growth after 48 hours. 07/29/21 15:12 Blood - Venous Blood Culture - Preliminary No growth after 48 hours. Progress Note: A&P Assessment and plan (1) Toxic encephalopathy: Status: Acute (2) Withdrawal from recreational drug: Status: Acute (3) Acute on chronic kidney failure: Status: Acute (4) 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: Status: Acute Plan Assessment: 35-year-old gentleman with underlying advanced diabetes mellitus with blindness and chronic kidney disease admitted with alteration of mental status secondary to substance abuse requiring ventilatory support further complicated by acute on chronic kidney failure Plan: Neuro: Toxic encephalopathy likely as a withdrawal from substance abuse. Essentially resolved, titrated off sedative drips. Cardiac: No acute issues. Pulmonary: Acute respiratory failure requiring ventilatory support. Extubated uneventfully this a.m.. Renal: Acute on chronic kidney failure , improving. Non oliguric. Continue to monitor renal indices and urine output. Endo: No acute issues. Underlying type 1 diabetes mellitus, continue on subcutaneous insulin. GI: No acute issues. ID: Empirically covered with Unasyn. Heme/Onc: No acute issues. Psych: No acute issues. Miscellaneous: No acute issues. Prophylaxis: Heparin, ppi Diet: tube feeds Critical care time spent: 45 minutes Quality Stroke Does the patient have a stroke diagnosis?: No VTE Prior VTE?: No VTE Risk Level:: Medical - moderate - high VTE Device Contraindication: N/A - Device Ordered VTE Drug Contraindication: Treatment Not Indicated
[2021-08-03 11:19] LABS: Glucose, Whole Blood 205 mg/dL (60-115)
--- NOTE | 2021-08-03 11:43 | PC.NURSE ---
Addendum entered by Иван Rivas RN 08/03/21 18:49: pt c/o headache, fabrication department supervisor at bedside, informed, ?'ed tylenol for pain and temp Addendum entered by Иван Rivas RN 08/03/21 18:16: informed md pt HR sustaining 120s Addendum entered by Иван Rivas RN 08/03/21 17:52: pt SBP elevated despite previous interventions. informed, meds administered as ordered and tomasz drip initiated Addendum entered by Иван Rivas RN 08/03/21 15:44: informed md of pt's temp and BP. per md, clonidine patch will be ordered for elevated SBP, no new order for temp. Will continue to monitor pt's vitals. Visitors at bedside. pt is 1:1 feed, tolerating food well. Original Note: Prop turned off this am per md verbal order, plan to extubate pt. RT informed while at bedside. Dex titrated per protocol. Pt was able to be successfully extubated and placed on n/c. pt passed bedside swallow md natalya informed, diet to be ordered and insulin to be administered. pt bathed this shift w/ CHG wipes. bevel polisher at bedside throughout the shift during all care. safety and fall precautions in place. camera in room. call lizarraga within reach, pt was educated on its use. pt repo'ed Q2.
[2021-08-03] MEDS: Insulin Glargine,Hum.rec.anlog 100 UNIT/ML 10 ML VIAL 40 UNIT SUBCUT (16:14)
[2021-08-03] MEDS: hydrALAZINE HCl 20 MG/ML VIAL 10 MG IVPUSH (16:41)
[2021-08-03] MEDS: cloNIDine 0.2 MG PATCH.TDWK TRANSDERMA (16:42)
[2021-08-03 17:15] LABS: Glucose, Whole Blood 215 mg/dL (60-115)
[2021-08-03] MEDS: niCARdipine HCL 25 MG in 0.9 % Sodium Chloride 250 ML 52 MG IVCONT ×2 (17:32→22:39)
[2021-08-03] MEDS: amLODIPine Besylate 10 MG TABLET PO (17:42)
[2021-08-03] MEDS: Acetaminophen 325 MG TABLET 650 MG PO (19:47)
[2021-08-03] MEDS: niCARdipine HCL 25 MG in 0.9 % Sodium Chloride 250 ML 130 MG IVCONT (19:52)
[2021-08-04] VITALS (27 sets, daily range): BP systolic 137–165; BP diastolic 63–88; PULSE 103–126; RESP 13–26; TEMP 37.6–38.1; O2SAT 92–98; BMI 28.0
[2021-08-04 00:03] LABS: Glucose, Whole Blood 268 mg/dL (60-115)
[2021-08-04] MEDS: Ampicillin Sodium/Sulbactam Na 3 GM in 0.9 % Sodium Chloride 100 ML IV ×2 (00:18→12:55)
[2021-08-04] MEDS: Insulin Lispro 100 UNIT/ML 3 ML VIAL SUBCUT ×5 (00:18→21:25)
[2021-08-04] MEDS: Heparin Sodium,Porcine 5,000 UNIT/ML VIAL 5000 UNIT SUBCUT ×3 (02:48→17:32)
[2021-08-04] MEDS: niCARdipine HCL 25 MG in 0.9 % Sodium Chloride 250 ML 52 MG IVCONT (03:40)
[2021-08-04 05:31] LABS: VBG Base Excess -3.3 mmol/L; VBG HCO3 19 mmol/L (22-26); VBG pCO2 26 mmHg; VBG pH 7.46 (7.32-7.43); VBG pO2 49 mmHg
[2021-08-04 05:37] LABS: Glucose, Whole Blood 202 mg/dL (60-115)
[2021-08-04] MEDS: Pantoprazole Sodium 40 MG/10 ML VIAL IVPUSH (05:38)
[2021-08-04 05:39] LABS: MANUAL DIFF FLAG NO
[2021-08-04 05:43] LABS: Basophils Percent Auto 0.3 % (0-2); Eosinophils Absolute Auto 0.2 X10*3/uL (0.0-0.4); Eosinophils Percent Auto 1.3 % (0-4); Hematocrit 25.6 % (42.0-52.0); Hemoglobin 8.8 g/dl (14.0-18.0); Imm Gran Abs Auto 0.23 X10*3/uL (0.00-0.03); Imm Gran Pct Auto 2.1 % (0.0-0.4); Lymphocytes Absolute Auto 1.5 X10*3/uL (1.2-4.9); Lymphocytes Percent Auto 13.2 % (20-40); Mean Corpuscular HGB Conc 34.4 g/dl (31.0-36.0); Mean Corpuscular Hemoglobin 30.4 pg (27.0-33.0); Mean Corpuscular Volume 88.6 fL (80.0-98.0); Mean Platelet Volume 10.8 fL (9.4-12.4); Monocytes Absolute Auto 1.1 X10*3/uL (0.1-1.2); Monocytes Percent Auto 9.4 % (2-11); Neutrophils Absolute Auto 8.2 x10*3/uL (2.0-8.3); Neutrophils Percent Auto 73.7 % (45-73); Platelet Count 238 X10*3/uL (160-400); Red Blood Count 2.89 X10*6/uL (4.60-5.80); Red Cell Distribution Width 12.3 % (11.0-16.0); White Blood Count 11.1 X10*3/uL (4.8-10.8)
[2021-08-04 06:13] LABS: Albumin Level 3.5 g/dL (3.5-5.0); Anion Gap 18 (12-20); Blood Urea Nitrogen 57 mg/dL (9-16); Calcium 8.1 mg/dL (8.4-10.2); Carbon Dioxide 20 mmol/L (22-29); Chloride 107 mmol/L (96-108); Creatinine Clr Calc Pharmacy 27.9; Estimated Glomerular Filt Rate 19; Glucose Random 223 mg/dL (60-115); Phosphorus 3.8 mg/dL (2.7-4.5); Potassium 3.7 mmol/L (3.3-5.1); Sodium 141 mmol/L (135-145)
[2021-08-04] MEDS: Metoprolol Succinate ER 50 MG TAB.ER.24H PO (08:24)
[2021-08-04] MEDS: amLODIPine Besylate 10 MG TABLET PO (08:24)
[2021-08-04] MEDS: niCARdipine HCL 25 MG in 0.9 % Sodium Chloride 250 ML 78 MG IVCONT (08:24)
[2021-08-04] MEDS: Valsartan 80 MG TABLET PO (08:24)
[2021-08-04] MEDS: Insulin Glargine,Hum.rec.anlog 100 UNIT/ML 10 ML VIAL 20 UNIT SUBCUT (08:46)
[2021-08-04 09:01] LABS: Venous Blood Gas Refer to POC result
[2021-08-04] MEDS: Acetaminophen 325 MG TABLET 650 MG PO (09:21)
--- NOTE | 2021-08-04 11:27 | PM.CCPN ---
Subjective Subjective Date of Service: 08/04/21 Interval History: 35-year-old gentleman with underlying type 1 diabetes mellitus, legally blind, polysubstance abuse, chronic kidney disease admitted on 07/29/2021 with alteration of mental status secondary to substance abuse and respiratory failure requiring intubation and ventilatory support, further complicated by acute on chronic kidney disease and hyperglycemia. Extubated 08/03/2021. Overnight with hypertensive urgency requiring Cardene drip, now titrated off. Critical Care Time (minutes): 30 Physical Exam Vital Signs: Vital Signs: Last Vital Signs Temp 100.4 F 08/04/21 11:00 Pulse 104 H 08/04/21 11:00 Resp 22 H 08/04/21 11:00 BP 141/75 H 08/04/21 11:00 Pulse Ox 95 08/04/21 11:00 O2 Del Method 08/04/21 11:00 O2 Flow Rate 2 08/04/21 11:00 FiO2 30 08/03/21 09:00 Oxygen Flow Rate 15 07/29/21 14:57 BMI result Body Mass Index 28.0 Const: General: no acute distress, alert and awake Neck: Neck: Yes no lymphadenopathy, Yes trachea midline and Yes supple Resp: Effort & Inspection: normal respiratory effort and no respiratory distress Auscultation: clear to auscultation bilaterally Cardio: Rate: tachycardic Rhythm: regular rhythm Heart sounds: no gallops, no murmurs and no rubs GI: Palpation (GI): Soft to palpation and Other GI palpation findings present ( Nontender) Auscultation: normal bowel sounds Extrem: General: Yes no pedal edema, No clubbing and No cyanosis Objective Data Labs CBC & Chem 7: 08/04/21 05:35 08/04/21 05:24 Labs: Laboratory Results - last 24 hr 08/03/21 08/03/21 08/04/21 17:09 23:49 05:24 WBC RBC Hgb Hct MCV MCH MCHC RDW Plt Count MPV Immature Gran % (Auto) Neut % (Auto) Lymph % (Auto) [place] % (Auto) Eos % (Auto) Baso % (Auto) Lymph # (Auto) [place] # (Auto) Eos # (Auto) Baso # (Auto) Abs Immat Gran (auto) Absolute Neuts (auto) Absolute Nucleated RBC Nucleated RBC % (auto) VBG pH VBG pCO2 VBG pO2 VBG HCO3 VBG O2 Saturation VBG Base Excess Sodium 141 Potassium 3.7 Chloride 107 Carbon Dioxide 20 L Anion Gap 18 BUN 57 H Creatinine 3.61 H Estim Creat Clear Calc 27.9 Estimated GFR 19 POC Glucose 215 H 268 H Random Glucose 223 H Calcium 8.1 L Phosphorus 3.8 Magnesium 2.0 Albumin 3.5 08/04/21 08/04/21 08/04/21 05:28 05:34 05:35 WBC 11.1 H RBC 2.89 L Hgb 8.8 L D Hct 25.6 L MCV 88.6 MCH 30.4 MCHC 34.4 RDW 12.3 Plt Count 238 D MPV 10.8 Immature Gran % (Auto) 2.1 H Neut % (Auto) 73.7 H Lymph % (Auto) 13.2 L [place] % (Auto) 9.4 Eos % (Auto) 1.3 Baso % (Auto) 0.3 Lymph # (Auto) 1.5 [place] # (Auto) 1.1 Eos # (Auto) 0.2 Baso # (Auto) 0.0 Abs Immat Gran (auto) 0.23 H Absolute Neuts (auto) 8.2 Absolute Nucleated RBC 0.000 Nucleated RBC % (auto) 0.0 VBG pH 7.46 H VBG pCO2 26 VBG pO2 49 VBG HCO3 19 L VBG O2 Saturation 80.0 VBG Base Excess -3.3 Sodium Potassium Chloride Carbon Dioxide Anion Gap BUN Creatinine Estim Creat Clear Calc Estimated GFR POC Glucose 202 H Random Glucose Calcium Phosphorus Magnesium Albumin Microbiology Microbiology Results: Microbiology 08/01/21 01:24 Sputum - Suctioned Gram Stain - Final 08/01/21 01:24 Sputum - Suctioned Sputum Culture - Final Denise albicans 07/29/21 15:09 Blood - Venous Blood Culture - Final No growth after 5 days. 07/29/21 15:12 Blood - Venous Blood Culture - Final No growth after 5 days. 07/31/21 19:24 Blood - Venous Blood Culture - Preliminary No growth after 48 hours. 07/31/21 19:24 Blood - Venous Blood Culture - Preliminary No growth after 48 hours. Progress Note: A&P Assessment and plan (1) Withdrawal from recreational drug: Status: Acute (2) Acute on chronic kidney failure: Status: Acute (3) Hypertensive urgency: Status: Acute (4) Background diabetic retinopathy associated with type 2 diabetes mellitus: Status: Acute (5) Legally blind: Status: Acute Plan Assessment: 35-year-old gentleman with underlying advanced diabetes mellitus with blindness and chronic kidney disease admitted with alteration of mental status secondary to substance abuse requiring ventilatory support further complicated by acute on chronic kidney failure Plan: Neuro: Toxic encephalopathy likely as a withdrawal from substance abuse. Essentially resolved, titrated off sedative drips. Cardiac: Hypertensive urgency requiring Cardene drip, now titrated off. Continue antihypertensive regimen. Pulmonary: Acute respiratory failure requiring ventilatory support , resolved. Extubated 08/03/2021. Renal: Acute on chronic kidney failure , improving. Non oliguric. Continue to monitor renal indices and urine output. Endo: No acute issues. Underlying type 1 diabetes mellitus, continue on subcutaneous insulin. GI: No acute issues. ID: Empirically covered with Unasyn. Heme/Onc: No acute issues. Psych: No acute issues. Miscellaneous: No acute issues. Prophylaxis: Heparin, Diet: diabetic Critical care time spent: 30 minutes Quality Stroke Does the patient have a stroke diagnosis?: No VTE Prior VTE?: No VTE Risk Level:: Medical - moderate - high VTE Device Contraindication: N/A - Device Ordered VTE Drug Contraindication: Treatment Not Indicated
[2021-08-04 11:45] LABS: Glucose, Whole Blood 311 mg/dL (60-115)
[2021-08-04 16:33] LABS: Glucose, Whole Blood 163 mg/dL (60-115)
[2021-08-04 21:07] LABS: Glucose, Whole Blood 176 mg/dL (60-115)
[2021-08-05] VITALS (8 sets, daily range): BP systolic 133–195; BP diastolic 76–105; PULSE 102–115; RESP 18–24; TEMP 36.9–38; O2SAT 97–99; BMI 27.8
[2021-08-05] MEDS: Ampicillin Sodium/Sulbactam Na 3 GM in 0.9 % Sodium Chloride 100 ML IV ×2 (00:21→11:55)
[2021-08-05] MEDS: Acetaminophen 325 MG TABLET 650 MG PO ×2 (00:21→11:35)
[2021-08-05] MEDS: Heparin Sodium,Porcine 5,000 UNIT/ML VIAL 5000 UNIT SUBCUT ×3 (02:13→18:29)
[2021-08-05 06:22] LABS: MANUAL DIFF FLAG NO
[2021-08-05 06:28] LABS: Basophils Percent Auto 0.2 % (0-2); Eosinophils Absolute Auto 0.2 X10*3/uL (0.0-0.4); Eosinophils Percent Auto 1.7 % (0-4); Hematocrit 28.1 % (42.0-52.0); Hemoglobin 9.4 g/dl (14.0-18.0); Imm Gran Abs Auto 0.17 X10*3/uL (0.00-0.03); Imm Gran Pct Auto 1.6 % (0.0-0.4); Lymphocytes Absolute Auto 2.1 X10*3/uL (1.2-4.9); Lymphocytes Percent Auto 19.1 % (20-40); Mean Corpuscular HGB Conc 33.5 g/dl (31.0-36.0); Mean Corpuscular Hemoglobin 29.8 pg (27.0-33.0); Mean Corpuscular Volume 89.2 fL (80.0-98.0); Mean Platelet Volume 10.1 fL (9.4-12.4); Monocytes Absolute Auto 0.9 X10*3/uL (0.1-1.2); Monocytes Percent Auto 8.2 % (2-11); Neutrophils Absolute Auto 7.4 x10*3/uL (2.0-8.3); Neutrophils Percent Auto 69.2 % (45-73); Platelet Count 330 X10*3/uL (160-400); Red Blood Count 3.15 X10*6/uL (4.60-5.80); Red Cell Distribution Width 12.6 % (11.0-16.0); White Blood Count 10.7 X10*3/uL (4.8-10.8)
[2021-08-05 06:48] LABS: Anion Gap 18 (12-20); Blood Urea Nitrogen 52 mg/dL (9-16); Calcium 8.3 mg/dL (8.4-10.2); Carbon Dioxide 18 mmol/L (22-29); Chloride 108 mmol/L (96-108); Creatinine Clr Calc Pharmacy 28.1; Estimated Glomerular Filt Rate 19; Glucose Random 332 mg/dL (60-115); Phosphorus 4.1 mg/dL (2.7-4.5); Potassium 4.1 mmol/L (3.3-5.1); Sodium 140 mmol/L (135-145)
[2021-08-05 08:06] LABS: Glucose, Whole Blood 282 mg/dL (60-115)
[2021-08-05] MEDS: Insulin Glargine,Hum.rec.anlog 100 UNIT/ML 10 ML VIAL 20 UNIT SUBCUT (08:07)
[2021-08-05] MEDS: Insulin Lispro 100 UNIT/ML 3 ML VIAL SUBCUT ×2 (08:07→11:54)
[2021-08-05] MEDS: amLODIPine Besylate 10 MG TABLET PO (08:14)
[2021-08-05] MEDS: Metoprolol Succinate ER 50 MG TAB.ER.24H PO (08:14)
[2021-08-05] MEDS: Valsartan 80 MG TABLET PO (08:14)
--- NOTE | 2021-08-05 10:08 | HO.PM.IMPN ---
Subjective Subjective Date of Service: 08/05/21 Interval History: F/u drug overdose, KAYODE, and encephalopathy, a respiratory failure that required mechanical ventilation in the ICU Interval history: he was extubated on 08/03 and transferred to the floor the next day, he is still a bit confused according to a friend MEDICAL OFFICE SUPERVISOR on the floor, his appetite is not great, the renal function continues to improve Review of Systems no fever, little confused Physical Exam Vital Signs: Vital Signs: Last Vital Signs Temp 98.5 F 08/05/21 07:00 Pulse 102 H 08/05/21 07:00 Resp 20 08/05/21 07:00 BP 173/90 H 08/05/21 07:00 Pulse Ox 97 08/05/21 07:00 O2 Del Method 08/05/21 07:00 O2 Flow Rate 2 08/05/21 07:00 FiO2 30 08/03/21 09:00 Oxygen Flow Rate 15 07/29/21 14:57 BMI result Body Mass Index 27.8 Const: Other: General: little confused Resp: CTA bilateral CVS: S1,S2,RRR GI: +BS, NT, no distention Skin: No rash Neuro: motor grossly intact Psych: appropriate affect Objective Data Active Medications Acetaminophen (Acetaminophen 325 Mg Tablet) 650 mg PO Q6H PRN PRN Reason: Pain, Mild (Pain Scale 1-3) Last Admin: 08/05/21 00:21 Dose: 650 mg Documented By: CARRI Amlodipine Besylate (Amlodipine Besylate 10 Mg Tablet) 10 mg PO DAILY [facility]; Protocol Last Admin: 08/05/21 08:14 Dose: 10 mg Documented By: STIVEN Dextrose (Dextrose 50 % 25 Gm/50 Ml Syringe) 25 gm IVPUSH Q30M PRN PRN Reason: BG < 70 Dextrose (Dextrose 50 % 25 Gm/50 Ml Syringe) 25 gm IVPUSH Q15M PRN; Protocol PRN Reason: per Hypoglycemia Standing Ord. Glucose (Glucose Gel 15 Gm Gel..Gram.) 15 gm PO Q15M PRN; Protocol PRN Reason: per Hypoglycemia Standing Ord. Heparin Sodium (Porcine) (Heparin Sodium,Porcine 5,000 Unit/Ml Vial) 5,000 unit SUBCUT Q8H [facility] Last Admin: 08/05/21 08:10 Dose: 5,000 unit Documented By: STIVEN Ampicillin Sodium/Sulbactam (Sodium 3 gm/ Sodium Chloride) 100 mls @ 200 mls/hr IV Q12H [facility] Last Infusion: 08/05/21 01:38 Dose: 0 mls/hr Documented By: CARRI Insulin Glargine (Insulin Glargine,Hum.Rec.Anlog 100 Unit/Ml 10 Ml Vial) 20 unit SUBCUT DAILY [facility] Last Admin: 08/05/21 08:07 Dose: 20 unit Documented By: STIVEN Insulin Human Lispro (Insulin Lispro 100 Unit/Ml 3 Ml Vial) 0 unit SUBCUT QIDACHS [facility]; Protocol Last Admin: 08/05/21 08:07 Dose: 8 unit Documented By: STIVEN Metoprolol Succinate (Metoprolol Succinate Er 50 Mg Tab.Er.24h) 50 mg PO DAILY [facility]; Protocol Last Admin: 08/05/21 08:14 Dose: 50 mg Documented By: STIVEN Naloxone HCl (Naloxone Hcl 0.4 Mg/Ml Vial) 0.2 mg IVPUSH Q2M PRN PRN Reason: Excessive sedation or RR < 8 Valsartan (Valsartan 80 Mg Tablet) 80 mg PO DAILY [facility]; Protocol Last Admin: 08/05/21 08:14 Dose: 80 mg Documented By: STIVEN Labs CBC & Chem 7: 08/05/21 06:13 08/05/21 06:13 Labs: Laboratory Results - last 24 hr 08/04/21 08/04/21 08/04/21 11:31 16:30 21:03 MCV MCH MCHC RDW Plt Count MPV Immature Gran % (Auto) Neut % (Auto) Lymph % (Auto) [place] % (Auto) Eos % (Auto) Baso % (Auto) Lymph # (Auto) [place] # (Auto) Eos # (Auto) Baso # (Auto) Abs Immat Gran (auto) Absolute Neuts (auto) Absolute Nucleated RBC Nucleated RBC % (auto) Anion Gap Estim Creat Clear Calc Estimated GFR POC Glucose 311 H 163 H 176 H Random Glucose Calcium Phosphorus Magnesium 08/05/21 08/05/21 08/05/21 06:13 06:13 07:11 MCV 89.2 MCH 29.8 MCHC 33.5 RDW 12.6 Plt Count 330 D MPV 10.1 Immature Gran % (Auto) 1.6 H Neut % (Auto) 69.2 Lymph % (Auto) 19.1 L [place] % (Auto) 8.2 Eos % (Auto) 1.7 Baso % (Auto) 0.2 Lymph # (Auto) 2.1 [place] # (Auto) 0.9 Eos # (Auto) 0.2 Baso # (Auto) 0.0 Abs Immat Gran (auto) 0.17 H Absolute Neuts (auto) 7.4 Absolute Nucleated RBC 0.000 Nucleated RBC % (auto) 0.0 Anion Gap 18 Estim Creat Clear Calc 28.1 Estimated GFR 19 POC Glucose 282 H Random Glucose 332 H D Calcium 8.3 L Phosphorus 4.1 Magnesium 2.0 Microbiology Microbiology Results: Microbiology 08/01/21 01:24 Gram Stain - Final Sputum - Suctioned Sputum Culture - Final Denise albicans Assessment and Plan (1) Toxic encephalopathy: Status: Acute (2) Acute kidney injury superimposed on CKD: Status: Acute (3) Type 1 diabetes: Status: Acute Plan 35/m? with Type 1 diabetes mellitus complicated by diabetes retinopathy/blindness and CKD2, h/o substance abuse disease admitted with alteration of mental status secondary to opioid OD (Fentanyl)? requiring ventilatory support further complicated by acute on chronic kidney failure, aspiration pneumonia.?? Plan: Toxic encephalopathy is likely due to opioid OD+withdrawal. Nearly resolved, but still has some residual confusion Hypertensive urgency requiring Cardene drip in ICU. BP remains high on Valsartan 80, Toprol 50, and Norvasc 10--home meds. Restart Hydralazine 25 tid and if still needed increase Toprolol acute respiratory failure due to OD? requiring ventilatory support, resolved.? ? Extubated 08/03/2021. Acute on chronic kidney failure (CKD2) , improving.? Non-oliguric.? Continue to monitor renal indices and urine output. Type 1 diabetes mellitus, no DKA, -Continue Lantus 20 and SSI ? Aspiration PNA has been on Unasyn since 08/01--no hypoxia, no fever, WBC normal DVP prophylaxis: Heparin Need for inpatient: recovering from acute respiratory failure, KAYODE, on IV Abx for pneumonia? Quality Stroke Does the patient have a stroke diagnosis?: No VTE Prior VTE?: No VTE Risk Level:: Medical - moderate - high VTE Device Contraindication: N/A - Device Ordered VTE Drug Contraindication: Treatment Not Indicated
--- NOTE | 2021-08-05 10:44 | MHC.CLN ---
F/U PT EXTUBATED 08/03 POOR PO PER MD DIET RX: 2200DM-APPROPRIATE RECOMMEND ADDING GLUCERNA BID TO INCREASE KCALS/PO SUPP TO PROVIDE 474KCALS, 20G PROTEIN MONITOR PO INTAKE CLOSELY
[2021-08-05 11:20] LABS: Glucose, Whole Blood 233 mg/dL (60-115)
--- NOTE | 2021-08-05 11:32 | MHC.CM.PN ---
Per ROUNDS discussion, Patient is here for a Fentanyl Overdose and on IV Ampicillin for PNA and not yet medically cleared for dc. Home resume LIFE SCIENCE RESEARCH ASSISTANT VS Care Team interventions is the goal and CM will continue to follow.
[2021-08-05] MEDS: hydrALAZINE HCl 25 MG TABLET PO ×2 (11:34→14:58)
[2021-08-05 16:20] LABS: Glucose, Whole Blood 184 mg/dL (60-115)
[2021-08-05 19:56] LABS: Glucose, Whole Blood 225 mg/dL (60-115)
[2021-08-05 22:52] LABS: Glucose, Whole Blood 309 mg/dL (60-115)
[2021-08-06] VITALS (8 sets, daily range): BP systolic 134–191; BP diastolic 84–96; PULSE 111–120; RESP 16–20; TEMP 36.7–37.7; O2SAT 96–100; BMI 27.8
--- NOTE | 2021-08-06 00:26 | MHC.PIE ---
Patient pulled out periph IV, attempted to pull out TLC, but redirected by another RN responding to telesitter calls. TLC remains intact. Attempted to give HS meds (10 units lispro & 25mg po hydralazine) - patient refusing. Using carton forming machine adjuster on phone & called hospital carton forming machine adjuster and after multiple attempts to educate & reason with patient about why patient needs insulin and BP meds (BP elevated - 170's SBP), patient still refusing. Patient very evasive - not answering all questions about why refusing. Educated about risks of DKA and possibly going back to ICU, patient still refused. Dr Jeffrey ordered meds IV, but patient then threatened to kill staff member if they touched him again. Holding meds for now until patient might become more cooperative at a later time. Sondra RN (taking over patient for 11p-7a) made aware of issues with patient taking meds.
[2021-08-06] MEDS: hydrALAZINE HCl 20 MG/ML VIAL 5 MG IVPUSH (03:19)
[2021-08-06] MEDS: Ampicillin Sodium/Sulbactam Na 3 GM in 0.9 % Sodium Chloride 100 ML IV ×2 (03:20→13:12)
[2021-08-06 03:34] LABS: Glucose, Whole Blood 385 mg/dL (60-115)
[2021-08-06] MEDS: Insulin Lispro 100 UNIT/ML 3 ML VIAL SUBCUT ×4 (03:42→21:21)
[2021-08-06 05:22] LABS: Glucose, Whole Blood 351 mg/dL (60-115)
[2021-08-06 07:28] LABS: Glucose, Whole Blood 269 mg/dL (60-115)
--- NOTE | 2021-08-06 08:18 | HO.PM.IMPN ---
Subjective Subjective Date of Service: 08/06/21 Interval History: drug overdose, KAYODE, and encephalopathy, a respiratory failure that required mechanical ventilation in the ICU Review of Systems Denies any new complaints, no fever overnight, somewhat confused. Physical Exam Vital Signs: Vital Signs: Last Vital Signs Temp 98.0 F 08/06/21 07:32 Pulse 118 H 08/06/21 07:32 Resp 19 08/06/21 07:32 BP 191/96 H 08/06/21 07:32 Pulse Ox 100 08/06/21 07:32 O2 Del Method 08/06/21 07:32 O2 Flow Rate 2 08/06/21 04:00 FiO2 30 08/03/21 09:00 Oxygen Flow Rate 15 07/29/21 14:57 BMI result Body Mass Index 27.8 General: alert oriented ,somewhat confused Resp:? CTA bilateral CVS: S1,S2,RRR GI: +BS, NT, no distention Skin: No rash Neuro:? motor grossly intact face symteric pupil reactive moves all ext follows simple commands dtr equivocal. Psych: appropriate affect Objective Data Active Medications Acetaminophen (Acetaminophen 325 Mg Tablet) 650 mg PO Q6H PRN PRN Reason: Pain, Mild (Pain Scale 1-3) Last Admin: 08/05/21 11:35 Dose: 650 mg Documented By: STIVEN Amlodipine Besylate (Amlodipine Besylate 10 Mg Tablet) 10 mg PO DAILY [facility]; Protocol Last Admin: 08/05/21 08:14 Dose: 10 mg Dextrose (Dextrose 50 % 25 Gm/50 Ml Syringe) 25 gm IVPUSH Q30M PRN PRN Reason: BG < 70 Dextrose (Dextrose 50 % 25 Gm/50 Ml Syringe) 25 gm IVPUSH Q15M PRN; Protocol PRN Reason: per Hypoglycemia Standing Ord. Glucose (Glucose Gel 15 Gm Gel..Gram.) 15 gm PO Q15M PRN; Protocol PRN Reason: per Hypoglycemia Standing Ord. Heparin Sodium (Porcine) (Heparin Sodium,Porcine 5,000 Unit/Ml Vial) 5,000 unit SUBCUT Q8H [facility] Last Admin: 08/06/21 03:21 Dose: Not Given Documented By: CARRI Non-Admin Reason: Patient Refused Hydralazine HCl (Hydralazine Hcl 25 Mg Tablet) 25 mg PO TID [facility]; Protocol Last Admin: 08/06/21 00:41 Dose: Not Given Ampicillin Sodium/Sulbactam (Sodium 3 gm/ Sodium Chloride) 100 mls @ 200 mls/hr IV Q12H [facility] Last Infusion: 08/06/21 05:25 Dose: 200 mls/hr Documented By: CARRI Insulin Glargine (Insulin Glargine,Hum.Rec.Anlog 100 Unit/Ml 10 Ml Vial) 20 unit SUBCUT DAILY [facility] Last Admin: 08/06/21 07:53 Dose: 1 unit Documented By: YURI Insulin Human Lispro (Insulin Lispro 100 Unit/Ml 3 Ml Vial) 0 unit SUBCUT QIDACHS [facility]; Protocol Last Admin: 08/06/21 03:42 Dose: 12 unit Metoprolol Succinate (Metoprolol Succinate Er 50 Mg Tab.Er.24h) 50 mg PO DAILY [facility]; Protocol Last Admin: 08/05/21 08:14 Dose: 50 mg Naloxone HCl (Naloxone Hcl 0.4 Mg/Ml Vial) 0.2 mg IVPUSH Q2M PRN PRN Reason: Excessive sedation or RR < 8 Valsartan (Valsartan 80 Mg Tablet) 80 mg PO DAILY [facility]; Protocol Last Admin: 08/05/21 08:14 Dose: 80 mg Documented By: STIVEN Labs CBC & Chem 7: 08/05/21 06:13 08/06/21 11:48 Labs: Laboratory Results - last 24 hr 08/05/21 08/05/21 08/05/21 11:15 16:04 19:05 POC Glucose 233 H 184 H 225 H 08/05/21 08/06/21 08/06/21 22:45 03:22 05:17 POC Glucose 309 H 385 H* 351 H* 08/06/21 07:09 POC Glucose 269 H Microbiology Microbiology Results: Microbiology 07/31/21 19:24 Blood Culture - Final Blood - Venous No growth after 5 days. 07/31/21 19:24 Blood Culture - Final Blood - Venous No growth after 5 days. Assessment and Plan (1) Type 1 diabetes: Status: Acute Plan 35/m? with Type 1 diabetes mellitus complicated by diabetes retinopathy/blindness and CKD2, h/o substance abuse disease admitted with alteration of mental status secondary to opioid OD (Fentanyl)? requiring ventilatory support further complicated by acute on chronic kidney failure, aspiration pneumonia.?? Toxic encephalopathy is likely due to opioid OD+withdrawal. Nearly resolved, but still has some residual confusion ct head repeated-unchanged ,neg neurochecks if does not improve-need neuro eval. Hypertensive urgency requiring Cardene drip in ICU. BP remains high on Valsartan 80, Toprol 50, and Norvasc 10--home meds. adjusted Hydralazine 50 tid . acute respiratory failure due to OD? requiring ventilatory support, resolved.? ? Extubated 08/03/2021. Acute on chronic kidney failure (CKD2) , improving.? Non-oliguric.? Continue to monitor renal indices and urine output. Type 1 diabetes mellitus, no DKA, -Continue Lantus 20 and SSI ? Aspiration PNA has been on Unasyn since 08/01--no hypoxia, no fever, WBC normal Dvt prophylaxis: Heparin Need for inpatient: recovering from acute respiratory failure, KAYODE, on IV Abx for pneumonia? Quality Stroke Does the patient have a stroke diagnosis?: No VTE Prior VTE?: No VTE Risk Level:: Medical - moderate - high VTE Device Contraindication: N/A - Device Ordered VTE Drug Contraindication: Treatment Not Indicated
--- NOTE | 2021-08-06 08:47 | PC.NURSE ---
pt assessed with obstetrics gynecology physician. Pt alert, awake, eyes open, answered to name. Pt did not answer questions appropriately for name, birthday, orientation. Pt states, If you touch me, I know who to call. Pt BP 191 systolic and refused a manual BP recheck. Denied headache. Pt refused SSI and blood pressure control medications. notified and came to bedside to assess pt with manager search. Pt allowed for manual BP 182/84. Pt refused BP medications again and offer of food and drink. Pt removed tele monitor, refused replacement 08:51.
[2021-08-06] MEDS: Insulin Glargine,Hum.rec.anlog 100 UNIT/ML 10 ML VIAL 20 UNIT SUBCUT (10:41)
--- NOTE | 2021-08-06 11:13 | PC.NURSE ---
Addendum entered by Socorro Garcia RN 08/06/21 18:03: Pt voided 600 ml clear yellow urine in urinal 17:40 as first void after madison removal. Pt due to void 23:40 08/06/21 Original Note: Pt refused AM medications again when education provided by Rn and nurse manager image. notified. PT agreeable to removal of madison catheter. Madison removed 11:10 AM 08/06/21. Pt due to void 17:10 and provided urinal.
[2021-08-06 11:21] LABS: Glucose, Whole Blood 255 mg/dL (60-115)
[2021-08-06 12:41] LABS: Anion Gap 19 (12-20); Blood Urea Nitrogen 56 mg/dL (9-16); Calcium 8.8 mg/dL (8.4-10.2); Carbon Dioxide 20 mmol/L (22-29); Chloride 107 mmol/L (96-108); Creatinine Clr Calc Pharmacy 29.2; Estimated Glomerular Filt Rate 20; Glucose Random 303 mg/dL (60-115); Potassium 4.2 mmol/L (3.3-5.1); Sodium 142 mmol/L (135-145)
[2021-08-06] MEDS: hydrALAZINE HCl 50 MG TABLET PO ×2 (13:11→21:21)
--- NOTE | 2021-08-06 15:54 | PM.NEUROCN ---
History of Present Illness Data of Consult Service Date: 08/06/21 Primary Care Provider: MD JONO Groves Reason for consult: altered mental status 35-year-old with history of type 1 diabetes mellitus previous episodes of diabetic ketoacidosis, blindness and also known polysubstance abuser presented to ER with altered mental status, respiratory distress ,and acute hypoxic respiratory failure clearly in an agitated state required emergent intubation was acutely hypertensive with what appears to be a a picture of either severe diffuse bilateral in infiltrates with consolidation versus pulmonary edema Initially blood pressure was over 220 systolic sinus tachycardia no acute ST-T changes on his EKG bedside echo showing normal LV and RV systolic function without segmental wall motion abnormality no primary valve or pericardial disease and the patient appears to be dry no edema neck veins flat palpable bilateral carotid upstrokes evidence of acute on chronic renal failure with marked hyperkalemia and hyponatremia .He has been extubated and transferred to the floor and was asked to evaluate regarding his mental status. According to the staff his mental status fluctuates and he is much more cooperative with 2 of the nurses than the others. He walks around the room and can sit on his chair and will follow commands with some of them with others he is withdrawn. He goes through periods of generalized tremulousness. He does return from a CT scan today. He was cooperative with the exam and followed commands. Review of Systems Review of Systems: no fever, little confused Yes Unobtainable due to mental condition and Unobtainable due to mental status PMFSH Past Medical History Medical History (Updated 08/05/21 @ 10:19 by Demetri Triplett MD) Acute on chronic kidney failure Chronic kidney disease, stage 3 Diabetic visual loss, with retinopathy, associated with type 1 diabetes mellitus Essential hypertension Gastritis Hemangioma of liver Hyperglycemia due to type 1 diabetes mellitus Hypertension associated with diabetes Polyneuropathy Sciatica Family History Family History Father Diabetes mellitus Mother Diabetes mellitus Maternal Grandfather Diabetes mellitus Maternal Grandmother Diabetes mellitus Surgical History Surgical History Hx of appendectomy Hx of circumcision Hx of endoscopy Hx of eye surgery Social History Social History Household Members: Spouse and Unknown / Unable to assess Household Members Other:: and girlfriend Housing: Apartment Do you presently have visiting nurse or other home services: No Unable to assess alcohol history related to: Unknown Alcohol intake: current Alcohol intake frequency: holidays/special occasions only Alcohol type: hard liquor Patient Tobacco Use Status: Former Tobacco user Second Hand Smoke Exposure: No Substance Use Type: Crack/Cocaine and Opiates Currently Displaying Signs/Symptoms of Drug Intoxication Withdrawal: No Advance Directives: No Advance Directives Information Provided: No Do you have thoughts of harming others: None Do you have a plan to hurt others: No Plan Recently lost weight without trying: Unsure Poor oral hygiene: Yes service: No Current occupational status: disabled Meds Allergies Allergy/AdvReac Type Severity Reaction Status Date / Time gluten Allergy Gastrointestinal Verified 08/06/21 16:50 Upset Active Medications: Current Medications Acetaminophen (Acetaminophen 325 Mg Tablet) 650 mg PO Q6H PRN PRN Reason: Pain, Mild (Pain Scale 1-3) Last Admin: 08/05/21 11:35 Dose: 650 mg Amlodipine Besylate (Amlodipine Besylate 10 Mg Tablet) 10 mg PO DAILY [facility]; Protocol Last Admin: 08/06/21 11:49 Dose: Not Given Dextrose (Dextrose 50 % 25 Gm/50 Ml Syringe) 25 gm IVPUSH Q30M PRN PRN Reason: BG < 70 Dextrose (Dextrose 50 % 25 Gm/50 Ml Syringe) 25 gm IVPUSH Q15M PRN; Protocol PRN Reason: per Hypoglycemia Standing Ord. Glucose (Glucose Gel 15 Gm Gel..Gram.) 15 gm PO Q15M PRN; Protocol PRN Reason: per Hypoglycemia Standing Ord. Heparin Sodium (Porcine) (Heparin Sodium,Porcine 5,000 Unit/Ml Vial) 5,000 unit SUBCUT Q8H [facility] Last Admin: 08/06/21 10:53 Dose: Not Given Hydralazine HCl (Hydralazine Hcl 50 Mg Tablet) 50 mg PO TID [facility]; Protocol Last Admin: 08/06/21 13:11 Dose: 50 mg Ampicillin Sodium/Sulbactam (Sodium 3 gm/ Sodium Chloride) 100 mls @ 200 mls/hr IV Q12H [facility] Last Infusion: 08/06/21 13:55 Dose: Infused Insulin Glargine (Insulin Glargine,Hum.Rec.Anlog 100 Unit/Ml 10 Ml Vial) 20 unit SUBCUT DAILY [facility] Last Admin: 08/06/21 10:53 Dose: Not Given Insulin Human Lispro (Insulin Lispro 100 Unit/Ml 3 Ml Vial) 0 unit SUBCUT QIDACHS [facility]; Protocol Last Admin: 08/06/21 13:11 Dose: 8 unit Metoprolol Succinate (Metoprolol Succinate Er 50 Mg Tab.Er.24h) 50 mg PO DAILY [facility]; Protocol Last Admin: 08/06/21 11:49 Dose: Not Given Naloxone HCl (Naloxone Hcl 0.4 Mg/Ml Vial) 0.2 mg IVPUSH Q2M PRN PRN Reason: Excessive sedation or RR < 8 Valsartan (Valsartan 80 Mg Tablet) 80 mg PO DAILY [facility]; Protocol Last Admin: 08/06/21 11:49 Dose: Not Given Home Medications Medication Instructions Recorded Confirmed Last Taken Type nortriptyline 50 mg capsule 50 mg PO BEDTIME 01/04/20 07/29/21 06/08/20 History omeprazole 40 mg capsule,delayed 40 mg PO DAILY@0630 01/04/20 07/29/21 06/08/20 History release insulin lispro 100 unit/mL 3 unit subcut TIDAC 07/12/21 07/29/21 Unknown History subcutaneous pen pen needle, diabetic 32 gauge x #50 ea 07/12/21 07/12/21 Unknown History (BD Ultra-Fine Shannan Pen Needle) valsartan 80 mg tablet 80 mg PO DAILY 07/12/21 07/29/21 Unknown History gabapentin 100 mg capsule 2 cap PO BID 07/29/21 07/29/21 Unknown History hydralazine 25 mg tablet 1 tab PO TID 07/29/21 07/29/21 Unknown History insulin glargine 100 unit/mL (3 20 unit subcut BEDTIME 07/29/21 07/29/21 Unknown History mL) subcutaneous pen (Lantus Solostar U-100 Insulin) metoprolol succinate 50 mg 1 tab PO DAILY 07/29/21 07/29/21 Unknown History tablet,extended release 24 hr Physical Exam Vital Signs: Vital Signs: Last Vital Signs Temp 98.0 F 08/06/21 07:32 Pulse 120 H 08/06/21 08:45 Resp 19 08/06/21 07:32 BP 134/90 H 08/06/21 12:00 Pulse Ox 100 08/06/21 07:32 O2 Del Method 08/06/21 07:32 O2 Flow Rate 2 08/06/21 04:00 FiO2 30 08/03/21 09:00 Oxygen Flow Rate 15 07/29/21 14:57 BMI result Body Mass Index 27.8 Const: Other: General: little confused Resp: CTA bilateral CVS: S1,S2,RRR GI: +BS, NT, no distention Skin: No rash Neuro: motor grossly intact Psych: appropriate affect General: no acute distress, alert, awake and other ( Sedated on the vent, agitated with sedation vacations) Eyes: Sclerae: sclerae normal EOM: EOMs intact bilaterally Neck: Neck: Yes no lymphadenopathy, Yes trachea midline and Yes supple Resp: Effort & Inspection: normal respiratory effort and no respiratory distress Auscultation: clear to auscultation bilaterally Cardio: Rate: regular rate and tachycardic Rhythm: regular rhythm Heart sounds: no gallops, no murmurs and no rubs GI: Palpation (GI): Soft to palpation and Other GI palpation findings present ( Nontender) Auscultation: normal bowel sounds Neuro: Other: Cooperative with simple commands at other times she will not cooperate and sometimes will do above and beyond what is asked to do like wiggling his tongue at me from side to side rapidly when I asked him to protrude his tongue. His strength is normal nonfocal exam neck is supple. He has bilateral corneal opacities and is blind. His speech is normal. When asked what month it was he said March and the year he identified as 2009. Extrem: General: Yes no pedal edema, No clubbing and No cyanosis Results Labs CBC & Chem 7: 08/05/21 06:13 08/06/21 11:48 Labs: BMP 08/06/21 11:48 Sodium 142 Potassium 4.2 Chloride 107 Carbon Dioxide 20 L BUN 56 H Creatinine 3.44 H Calcium 8.8 D Microbiology Microbiology Results: Microbiology 07/31/21 19:24 Blood - Venous Blood Culture - Final No growth after 5 days. 07/31/21 19:24 Blood - Venous Blood Culture - Final No growth after 5 days. 08/01/21 01:24 Sputum - Suctioned Gram Stain - Final 08/01/21 01:24 Sputum - Suctioned Sputum Culture - Final Denise albicans 07/29/21 15:09 Blood - Venous Blood Culture - Final No growth after 5 days. 07/29/21 15:12 Blood - Venous Blood Culture - Final No growth after 5 days. Assessment and Plan (1) Toxic encephalopathy: Status: Acute Some of the features are suggestive of aa psychiatric disorder superimposed on metabolic encephalopathy. Will review his CAT scan. I would recommend an EEG. (2) Acute kidney injury superimposed on CKD: Status: Acute (3) Type 1 diabetes: Status: Acute Plan 35/m? with Type 1 diabetes mellitus complicated by diabetes retinopathy/blindness and CKD2, h/o substance abuse disease admitted with alteration of mental status secondary to opioid OD (Fentanyl)? requiring ventilatory support further complicated by acute on chronic kidney failure, aspiration pneumonia.?? Plan: Toxic encephalopathy is likely due to opioid OD+withdrawal. Nearly resolved, but still has some residual confusion Hypertensive urgency requiring Cardene drip in ICU. BP remains high on Valsartan 80, Toprol 50, and Norvasc 10--home meds. Restart Hydralazine 25 tid and if still needed increase Toprolol acute respiratory failure due to OD? requiring ventilatory support, resolved.? ? Extubated 08/03/2021. Acute on chronic kidney failure (CKD2) , improving.? Non-oliguric.? Continue to monitor renal indices and urine output. Type 1 diabetes mellitus, no DKA, -Continue Lantus 20 and SSI ? Aspiration PNA has been on Unasyn since 08/01--no hypoxia, no fever, WBC normal DVP prophylaxis: Heparin Need for inpatient: recovering from acute respiratory failure, KAYODE, on IV Abx for pneumonia? Procedures Date of Service Date of Service: 08/06/21
[2021-08-06 16:26] LABS: Glucose, Whole Blood 228 mg/dL (60-115)
[2021-08-06 20:48] LABS: Glucose, Whole Blood 129 mg/dL (60-115)
[2021-08-06] MEDS: Zolpidem Tartrate 5 MG TABLET PO (21:44)
--- NOTE | 2021-08-07 | EEG_ITS ---
This is a 16-channel EEG with an EKG lead. The patient is reported awake during the tracing. Background EEG rhythm is low to medium amplitude, mixed theta, beta with no obvious asymmetry or paroxysmal tendency. Photic stimulation and hyperventilation were not performed. Cardiac lead did not reveal any significant abnormality. No sharp wave spikes or paroxysmal tendency noted. IMPRESSION: No significant abnormality noted on this EEG. MD KATIANA Myles/MARGOTH / [phone]
[2021-08-07] MEDS: Ampicillin Sodium/Sulbactam Na 3 GM in 0.9 % Sodium Chloride 100 ML IV ×2 (00:35→16:10)
[2021-08-07 03:16] VITALS: BP 182/95; PULSE 114; RESP 17; TEMP 37; O2SAT 95
[2021-08-07 06:00] VITALS: BMI 27.8
[2021-08-07 08:00] VITALS: BP 156/81; PULSE 100; RESP 19; TEMP 37; O2SAT 98
[2021-08-07 08:01] LABS: Glucose, Whole Blood 461 mg/dL (60-115)
--- NOTE | 2021-08-07 08:25 | HO.PM.IMPN ---
Subjective Subjective Date of Service: 08/07/21 Interval History: kayode , uncontrolled htn&dm. Review of Systems mental status seems to be slightly better than yesterday, still talking slowly seems more calmer denies any chest pain or shortness of breath or abdominal pain or nausea or vomiting. Physical Exam Vital Signs: General: little confused Resp: CTA bilateral CVS: S1,S2,RRR GI: +BS, NT, no distention Skin: No rash Neuro: motor grossly intact Psych: appropriate affect Objective Data Active Medications Acetaminophen (Acetaminophen 325 Mg Tablet) 650 mg PO Q6H PRN PRN Reason: Pain, Mild (Pain Scale 1-3) Last Admin: 08/05/21 11:35 Dose: 650 mg Documented By: STIVEN Amlodipine Besylate (Amlodipine Besylate 10 Mg Tablet) 10 mg PO DAILY [facility]; Protocol Last Admin: 08/06/21 11:49 Dose: Not Given Documented By: YURI Non-Admin Reason: Patient Refused Dextrose (Dextrose 50 % 25 Gm/50 Ml Syringe) 25 gm IVPUSH Q30M PRN PRN Reason: BG < 70 Dextrose (Dextrose 50 % 25 Gm/50 Ml Syringe) 25 gm IVPUSH Q15M PRN; Protocol PRN Reason: per Hypoglycemia Standing Ord. Glucose (Glucose Gel 15 Gm Gel..Gram.) 15 gm PO Q15M PRN; Protocol PRN Reason: per Hypoglycemia Standing Ord. Heparin Sodium (Porcine) (Heparin Sodium,Porcine 5,000 Unit/Ml Vial) 5,000 unit SUBCUT Q8H [facility] Last Admin: 08/07/21 01:14 Dose: Not Given Documented By: ROSE Non-Admin Reason: Patient Refused Hydralazine HCl (Hydralazine Hcl 50 Mg Tablet) 50 mg PO TID [facility]; Protocol Last Admin: 08/06/21 21:21 Dose: 50 mg Documented By: ROSE Ampicillin Sodium/Sulbactam (Sodium 3 gm/ Sodium Chloride) 100 mls @ 200 mls/hr IV Q12H [facility] Last Infusion: 08/07/21 01:13 Dose: 0 mls/hr Documented By: ROSE Insulin Glargine (Insulin Glargine,Hum.Rec.Anlog 100 Unit/Ml 10 Ml Vial) 25 unit SUBCUT BEDTIME [facility] Insulin Glargine (Insulin Glargine,Hum.Rec.Anlog 100 Unit/Ml 10 Ml Vial) 5 unit SUBCUT DAILY [facility] Insulin Human Lispro (Insulin Lispro 100 Unit/Ml 3 Ml Vial) 0 unit SUBCUT QIDACHS [facility]; Protocol Last Admin: 08/06/21 21:21 Dose: 2 unit Documented By: ROSE Insulin Human Lispro (Insulin Lispro 100 Unit/Ml 3 Ml Vial) 3 unit SUBCUT TIDAC [place] Metoprolol Succinate (Metoprolol Succinate Er 50 Mg Tab.Er.24h) 50 mg PO DAILY [facility]; Protocol Last Admin: 08/06/21 11:49 Dose: Not Given Documented By: YURI Non-Admin Reason: Patient Refused Naloxone HCl (Naloxone Hcl 0.4 Mg/Ml Vial) 0.2 mg IVPUSH Q2M PRN PRN Reason: Excessive sedation or RR < 8 Valsartan (Valsartan 80 Mg Tablet) 80 mg PO DAILY [facility]; Protocol Last Admin: 08/06/21 11:49 Dose: Not Given Documented By: YURI Non-Admin Reason: Patient Refused Zolpidem Tartrate (Zolpidem Tartrate 5 Mg Tablet) 5 mg PO BEDTIME PRN PRN Reason: Insomnia Last Admin: 08/06/21 21:44 Dose: 5 mg Documented By: ROSE Labs CBC & Chem 7: 08/05/21 06:13 08/06/21 11:48 Labs: Laboratory Results - last 24 hr 08/06/21 08/06/21 08/06/21 11:13 11:48 16:22 Anion Gap 19 Estim Creat Clear Calc 29.2 Estimated GFR 20 POC Glucose 255 H 228 H Random Glucose 303 H Calcium 8.8 D 08/06/21 08/07/21 20:42 07:46 Anion Gap Estim Creat Clear Calc Estimated GFR POC Glucose 129 H 461 H* Random Glucose Calcium Assessment and Plan (1) Toxic encephalopathy: Status: Acute (2) Type 1 diabetes: Status: Acute Plan 35/m? with Type 1 diabetes mellitus complicated by diabetes retinopathy/blindness and CKD2, h/o substance abuse disease admitted with alteration of mental status secondary to opioid OD (Fentanyl)? requiring ventilatory support further complicated by acute on chronic kidney failure, aspiration pneumonia.?? Toxic encephalopathy is likely due to opioid OD+withdrawal. Nearly resolved, but still has some residual confusion ct head repeated-unchanged ,neg neurochecks if does not improve-need neuro eval-added EEG, ct heda neg,? possible psych related. Hypertensive urgency requiring Cardene drip in ICU. BP somewhat improving remains high on Valsartan 80, Toprol 50, and Norvasc 10 and adjusted Hydralazine 75 tid . acute respiratory failure due to OD? requiring ventilatory support, resolved.? ? Extubated 08/03/2021. Acute on chronic kidney failure (CKD2) , improving.? Non-oliguric.? Continue to monitor renal indices and urine output. Type 1 diabetes mellitus, no DKA-still hyperglycemia adjusted Lantus 25 and as well as SSI. ? Aspiration PNA has been on Unasyn since 08/01--no hypoxia, no fever, WBC normal on unasyn since 08/01 . Dvt prophylaxis: Heparin Need for inpatient: toxic metabolic encephalopathy,, KAYODE, on IV Abx for pneumonia? Quality Stroke Does the patient have a stroke diagnosis?: No VTE Prior VTE?: No VTE Risk Level:: Medical - moderate - high VTE Device Contraindication: N/A - Device Ordered VTE Drug Contraindication: Treatment Not Indicated
[2021-08-07] MEDS: Metoprolol Succinate ER 50 MG TAB.ER.24H PO (08:48)
[2021-08-07] MEDS: hydrALAZINE HCl 50 MG TABLET PO ×2 (08:48→16:06)
[2021-08-07] MEDS: amLODIPine Besylate 10 MG TABLET PO (08:48)
[2021-08-07] MEDS: Heparin Sodium,Porcine 5,000 UNIT/ML VIAL 5000 UNIT SUBCUT ×2 (08:49→18:18)
[2021-08-07] MEDS: Insulin Lispro 100 UNIT/ML 3 ML VIAL SUBCUT ×6 (08:51→21:57)
[2021-08-07] MEDS: Insulin Glargine,Hum.rec.anlog 100 UNIT/ML 10 ML VIAL SUBCUT (08:51)
[2021-08-07 09:55] LABS: Glucose, Whole Blood 418 mg/dL (60-115)
[2021-08-07 11:20] LABS: Glucose, Whole Blood 325 mg/dL (60-115)
--- NOTE | 2021-08-07 11:24 | MHC.CM.PN ---
Per ROUNDS discussion, Patient is still confused, BS are not controlled and BP is improving. 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
[2021-08-07 12:00] VITALS: BP 175/86; PULSE 99; RESP 19; TEMP 37.1; O2SAT 96
[2021-08-07] MEDS: Valsartan 80 MG TABLET PO (12:04)
--- NOTE | 2021-08-07 14:57 | CONS_ITS ---
DATE OF SERVICE: 08/07/2021 REASON FOR CONSULTATION: I was called to see this patient on August [address] Servin to assist in management of the patient's renal failure. HISTORY OF PRESENT ILLNESS: To summarize, the patient is well known to me. He has stage 3 chronic kidney disease in the setting of longstanding type 1 diabetes mellitus complicated by blindness. He came into the hospital on July 29 with change in mentation and acute hypoxic respiratory failure. At the time of admission, the serum creatinine was 6.1 with a potassium 8.1. He was admitted to ICU for severe hypertension. He was treated in the ICU. Blood pressure optimized and on August 01, he had significant hypotension with a blood pressure in the 66/33, and remained less than 90 mmHg for almost 6 hours. In spite of this, the serum creatinine has been gradually improving and as of today, creatinine is 3.44. His blood pressure is better controlled at present and he has been requested for further management of renal obstruction and electrolyte imbalance. ONGOING MEDICAL PROBLEMS: Include history of type 1 diabetes mellitus complicated by diabetic nephropathy, diabetic neuropathy, and retinopathy. History of gastritis, hemangioma of the liver, severe hypertension, stage 3 chronic kidney disease at baseline with a creatinine of 1.6 mg/dL. FAMILY HISTORY: Significant for diabetes mellitus. No history of renal failure. SURGICAL HISTORY: Includes appendectomy, circumcision, endoscopy and eye surgery. SOCIAL HISTORY: Lives with his girlfriend. History of using tobacco. He also uses marijuana. ALLERGIES: NO KNOWN DRUG ALLERGIES HAVE BEEN DOCUMENTED. MEDICATION: At time of admission included valsartan 80 mg, insulin, sertraline, omeprazole and nortriptyline. LABORATORY DATA: At the time of admission hemoglobin was 10.1, potassium 8.1, sodium 125, creatinine 6.13, bicarb of 14, pH of 7.27. Today, the labs are as follows: Hemoglobin 9.4, platelets 330. Sodium 142, potassium 4.2 on the , BUN 56, creatinine 3.44. IMPRESSION: 35-year-old man with type 1 diabetes mellitus, comes in with hypoxic respiratory failure, severe hypertension, acute kidney injury with hyperkalemia. At the present time, the renal function is improving. There is no emergent indication for dialysis. The hyperkalemia stands corrected. He did have hyponatremia at time of admission, which is also corrected. RECOMMENDATION: Is to optimize his blood pressure. Maintain systolic blood pressure between 120-140 mmHg and avoid hypotension. Continue to avoid nephrotoxic agents. We will monitor the renal function closely. Keep intake more than the output and optimize blood sugar. Further workup will be based on the outcome of these basic investigations. We will follow him closely with the team. Onur Bejarano MD BPA/MODL / [id number]
[2021-08-07 16:00] VITALS: BP 149/82; PULSE 97; RESP 14; TEMP 36.9; O2SAT 97
[2021-08-07 17:07] LABS: Glucose, Whole Blood 271 mg/dL (60-115)
[2021-08-07 17:16] LABS: Anion Gap 20 (12-20); Blood Urea Nitrogen 65 mg/dL (9-16); Calcium 8.4 mg/dL (8.4-10.2); Carbon Dioxide 16 mmol/L (22-29); Chloride 104 mmol/L (96-108); Creatinine Clr Calc Pharmacy 30.6; Estimated Glomerular Filt Rate 21; Glucose Random 275 mg/dL (60-115); Magnesium 2.2 mg/dL (1.6-2.6); Potassium 4.4 mmol/L (3.3-5.1); Sodium 136 mmol/L (135-145)
[2021-08-07 19:38] VITALS: BP 140/74; PULSE 91; RESP 14; TEMP 37.1; O2SAT 96
[2021-08-07 20:47] LABS: Glucose, Whole Blood 219 mg/dL (60-115)
[2021-08-07] MEDS: Zolpidem Tartrate 5 MG TABLET PO (21:46)
[2021-08-07] MEDS: hydrALAZINE HCl 50 MG TABLET 75 MG PO (21:46)
[2021-08-07] MEDS: Insulin Glargine,Hum.rec.anlog 100 UNIT/ML 10 ML VIAL 25 UNIT SUBCUT (21:57)
[2021-08-07 23:48] VITALS: BP 140/79; PULSE 80; RESP 16; TEMP 36.8; O2SAT 96
[2021-08-08] VITALS (8 sets, daily range): BP systolic 128–144; BP diastolic 66–94; PULSE 80–101; RESP 16–20; TEMP 36.6–37.9; O2SAT 96–99; BMI 28.6
[2021-08-08] MEDS: Heparin Sodium,Porcine 5,000 UNIT/ML VIAL 5000 UNIT SUBCUT ×3 (02:08→17:30)
[2021-08-08] MEDS: Ampicillin Sodium/Sulbactam Na 3 GM in 0.9 % Sodium Chloride 100 ML IV (02:09)
[2021-08-08 07:36] LABS: Glucose, Whole Blood 238 mg/dL (60-115)
[2021-08-08 07:46] LABS: Anion Gap 18 (12-20); Blood Urea Nitrogen 52 mg/dL (9-16); Calcium 8.9 mg/dL (8.4-10.2); Carbon Dioxide 17 mmol/L (22-29); Chloride 105 mmol/L (96-108); Creatinine Clr Calc Pharmacy 31.7; Estimated Glomerular Filt Rate 22; Glucose Random 239 mg/dL (60-115); Potassium 4.2 mmol/L (3.3-5.1); Sodium 136 mmol/L (135-145)
[2021-08-08] MEDS: Insulin Lispro 100 UNIT/ML 3 ML VIAL SUBCUT ×7 (09:13→22:36)
[2021-08-08] MEDS: Insulin Glargine,Hum.rec.anlog 100 UNIT/ML 10 ML VIAL SUBCUT (09:13)
[2021-08-08] MEDS: Metoprolol Succinate ER 50 MG TAB.ER.24H PO (09:15)
[2021-08-08] MEDS: Valsartan 80 MG TABLET PO (09:15)
[2021-08-08] MEDS: hydrALAZINE HCl 50 MG TABLET 75 MG PO ×3 (09:15→22:33)
[2021-08-08] MEDS: amLODIPine Besylate 10 MG TABLET PO (09:17)
--- NOTE | 2021-08-08 09:54 | PM.PSYCN ---
History of Present Illness Date of Service: 08/08/21 Chief Complaint: Acute hypoxemic respiratory failure/altered mental Reason for Consult: Confusion, intermittent agitation, question whether psych related. Requesting physician: Jasper Servin Discussed with referring provider: Yes Sources of Information: patient interviewed and chart reviewed HPI Narrative: Patient is a 35-year-old male, presented to ED with altered mental status and hypoxia. history of opioid use disorder, alcohol use disorder, marijuana use. He was found to have fentanyl overdose, KAYODE, encephalopathy, respiratory failure. Admitted to ICU, intubated. He was extubated on 08/03, transferred to [facility] [place] the next day. Chart review shows remote history of amitriptyline at night. History also lists citalopram, prescribed by providers at [facility], last filled approximately one year ago. Patient was lying on side, appeared comfortable with eyes closed, when I entered his room this morning. I met with him while utilizing iPad device with Angolan-speaking medical assistant supervisor (Edouard [id number]). He was responsive, and answered questions, although most were with simple yes/no responses. Patient denies any history of suicidal ideation or attempts, and denies any current suicidal ideation. He was calm and cooperative throughout interview, and fully alert and oriented. I asked him if his overdose was in any way intentional as an attempt to harm himself, and he stated ?no ?. I asked if he had any intention or thoughts to harm himself or others in any way. He stated again no . I asked if he recalled being prescribed amitriptyline and citalopram, and he stated that yes , he did remember taking those in his past. I asked him if he would be interested in resuming citalopram at this time. He said that he did not want it . When asked if he would like any type of support or assistance with substance use, he declined any assistance. Past Psychiatric History: unknown Medical Evaluation Reviewed: Yes Personal & Social History: Has significant other, who is also [employer]. Patient disabled. Review of Systems Review of Systems Yes Unobtainable due to mental condition Constitutional: Reports no additional constitutional complaints [facility] Medical History Acute on chronic kidney failure Chronic kidney disease, stage 3 Diabetic visual loss, with retinopathy, associated with type 1 diabetes mellitus Essential hypertension Gastritis Hemangioma of liver Hyperglycemia due to type 1 diabetes mellitus Hypertension associated with diabetes Polyneuropathy Sciatica Surgical History Hx of appendectomy Hx of circumcision Hx of endoscopy Hx of eye surgery Family History: Unknown Social History: Patient disabled with multiple medical issues. Substance History: History of being treated in ED several times for overdose/withdrawal of opioids, alcohol. Trauma History: unknown Diagnostics Vital Signs (24Hr): Vital Signs - 24 hr 08/07/21 12:00 08/07/21 16:00 08/07/21 19:38 Temperature 98.8 F 98.4 F 98.7 F Pulse Rate 99 97 91 Respiratory Rate 19 14 14 Blood Pressure 175/86 H 149/82 H 140/74 H Pulse Oximetry 96 97 96 Oxygen Delivery Method Room Air Room Air Room Air 08/07/21 23:48 08/08/21 00:00 08/08/21 03:55 Temperature 98.2 F 98.2 F 97.9 F Pulse Rate 80 80 84 Respiratory Rate 16 16 17 Blood Pressure 140/79 H 140/79 H 143/70 H Pulse Oximetry 96 96 99 Oxygen Delivery Method Room Air Room Air Room Air 08/08/21 03:17 08/08/21 07:36 Temperature 97.9 F 98.0 F Pulse Rate 84 90 Respiratory Rate 17 18 Blood Pressure 143/70 H 144/94 H Pulse Oximetry 99 98 Oxygen Delivery Method Room Air Room Air BMI result Body Mass Index 28.6 Labs Results: 08/05/21 06:13 08/08/21 06:49 Labs: Laboratory Results - last 48 hr 08/06/21 08/06/21 08/06/21 11:13 11:48 16:22 Sodium 142 Potassium 4.2 Chloride 107 Carbon Dioxide 20 L Anion Gap 19 BUN 56 H Creatinine 3.44 H Estim Creat Clear Calc 29.2 Estimated GFR 20 POC Glucose 255 H 228 H Random Glucose 303 H Calcium 8.8 D Magnesium 08/06/21 08/07/21 08/07/21 20:42 07:46 09:48 Sodium Potassium Chloride Carbon Dioxide Anion Gap BUN Creatinine Estim Creat Clear Calc Estimated GFR POC Glucose 129 H 461 H* 418 H* Random Glucose Calcium Magnesium 08/07/21 08/07/21 08/07/21 11:11 16:47 16:50 Sodium 136 Potassium 4.4 Chloride 104 Carbon Dioxide 16 L Anion Gap 20 BUN 65 H Creatinine 3.28 H Estim Creat Clear Calc 30.6 Estimated GFR 21 POC Glucose 325 H 271 H Random Glucose 275 H Calcium 8.4 Magnesium 2.2 08/07/21 08/08/21 08/08/21 20:43 06:49 07:31 Sodium 136 Potassium 4.2 Chloride 105 Carbon Dioxide 17 L Anion Gap 18 BUN 52 H Creatinine 3.21 H Estim Creat Clear Calc 31.7 Estimated GFR 22 POC Glucose 219 H 238 H Random Glucose 239 H Calcium 8.9 Magnesium Imaging Radiology Impressions: ITS Impressions Chest X-Ray 07/29/21 15:30 IMPRESSION: No acute intracranial process seen. Left middle ear cholesteatoma. Unremarkable chest exam. Head CT 07/29/21 15:30 IMPRESSION: No acute intracranial process seen. Left middle ear cholesteatoma. Unremarkable chest exam. Chest X-Ray 07/29/21 18:20 IMPRESSION: Tubes and lines as described. No pneumothorax. Patchy bilateral worsening airspace disease. Head CT 08/06/21 13:30 IMPRESSION: No acute intracranial process seen. Likely left middle ear cholesteatoma with soft tissue mass similar to previous study. This likely chronic bilateral mastoid inflammatory changes. Most of the mastoid sinus is sclerosed. Mental Status Exam Mental Status Exam Narrative: Well-developed, well-nourished male, in NAD. Resting on left side, appear to be comfortable. No overt symptoms of withdrawals noted, no tics or tremors noted. Dressed in hospital garb. Patient Appearance: Fatigued Patient Orientation: Person, Place, Time and Situation Level of Consciousness: Appropriate Patient Behavior: Cooperative Mood Description: Flat Affect Description: Flat Patient Cognition Impaired: No Ability to Follow Directions: Good Speech Pattern: Soft-Spoken Hallucinations: None Delusions: Not Present Thought Process: Intact Thought Content: positive for Intact Medications Medications Current Medications Acetaminophen (Acetaminophen 325 Mg Tablet) 650 mg PO Q6H PRN PRN Reason: Pain, Mild (Pain Scale 1-3) Last Admin: 08/05/21 11:35 Dose: 650 mg Amlodipine Besylate (Amlodipine Besylate 10 Mg Tablet) 10 mg PO DAILY [facility]; Protocol Last Admin: 08/08/21 09:17 Dose: 10 mg Dextrose (Dextrose 50 % 25 Gm/50 Ml Syringe) 25 gm IVPUSH Q30M PRN PRN Reason: BG < 70 Dextrose (Dextrose 50 % 25 Gm/50 Ml Syringe) 25 gm IVPUSH Q15M PRN; Protocol PRN Reason: per Hypoglycemia Standing Ord. Glucose (Glucose Gel 15 Gm Gel..Gram.) 15 gm PO Q15M PRN; Protocol PRN Reason: per Hypoglycemia Standing Ord. Heparin Sodium (Porcine) (Heparin Sodium,Porcine 5,000 Unit/Ml Vial) 5,000 unit SUBCUT Q8H [facility] Last Admin: 08/08/21 09:15 Dose: 5,000 unit Hydralazine HCl (Hydralazine Hcl 50 Mg Tablet) 75 mg PO TID [facility]; Protocol Last Admin: 08/08/21 09:15 Dose: 75 mg Ampicillin Sodium/Sulbactam (Sodium 3 gm/ Sodium Chloride) 100 mls @ 200 mls/hr IV Q12H [facility] Last Infusion: 08/08/21 02:57 Dose: Infused Insulin Glargine (Insulin Glargine,Hum.Rec.Anlog 100 Unit/Ml 10 Ml Vial) 25 unit SUBCUT BEDTIME [facility] Last Admin: 08/07/21 21:57 Dose: 25 unit Insulin Glargine (Insulin Glargine,Hum.Rec.Anlog 100 Unit/Ml 10 Ml Vial) 5 unit SUBCUT DAILY [facility] Last Admin: 08/08/21 09:13 Dose: 5 unit Insulin Human Lispro (Insulin Lispro 100 Unit/Ml 3 Ml Vial) 0 unit SUBCUT QIDACHS [facility]; Protocol Last Admin: 08/08/21 09:13 Dose: 6 unit Insulin Human Lispro (Insulin Lispro 100 Unit/Ml 3 Ml Vial) 3 unit SUBCUT TIDAC [facility] Last Admin: 08/08/21 09:14 Dose: 3 unit Metoprolol Succinate (Metoprolol Succinate Er 50 Mg Tab.Er.24h) 50 mg PO DAILY [facility]; Protocol Last Admin: 08/08/21 09:15 Dose: 50 mg Naloxone HCl (Naloxone Hcl 0.4 Mg/Ml Vial) 0.2 mg IVPUSH Q2M PRN PRN Reason: Excessive sedation or RR < 8 Valsartan (Valsartan 80 Mg Tablet) 80 mg PO DAILY [facility]; Protocol Last Admin: 08/08/21 09:15 Dose: 80 mg Zolpidem Tartrate (Zolpidem Tartrate 5 Mg Tablet) 5 mg PO BEDTIME PRN PRN Reason: Insomnia Last Admin: 08/07/21 21:46 Dose: 5 mg Allergies Allergies Allergy/AdvReac Type Severity Reaction Status Date / Time gluten Allergy Gastrointestinal Verified 08/06/21 16:50 Upset Assessment & Plan Assessment & Plan (1) Toxic encephalopathy: Status: Acute Code(s): G92.9 - Unspecified toxic encephalopathy Assessment and Plan: Psychiatry was asked to meet with patient due to confusion/intermittent agitation, questioning whether symptoms psychiatrically related vs. encephalopathy vs. substance use disorder. At with patient with use of electronic medical assistant supervisor. He answered questions in mostly yes no manner. However he was alert and oriented x4. Speech was soft, although coherent. When discussing past medications, he did acknowledge that he had taken amitriptyline in the past as well as citalopram. However he denies any history of depression. These medications also have other uses be size antidepressant, such as sleep aid, anti anxiety, and neuropathic pain. When discussing recent fentanyl overdose, he did acknowledge that this had occurred. When asked if he would like any assistance at all regarding opioid use disorder, including Recovery Services, treatment medications, etc.. He stated no. Past note from recovery team from a previous stay, detailed history of patient being offered recovery services for substance use disorder at that time. At that time he had also refused services. Plan Patient does have history of antidepressant medications. However it is unclear at this time whether medications were used as antidepressants, or to help with neuropathic pain, possibly with anxiety. Patient denies any history of suicidal ideation, denies any current suicidal ideation. He was calm and cooperative throughout interview, and fully alert and oriented. He did not display any agitation or confusion during our encounter. At this time, it appears his mental status is improved. He declined any assistance with any type of possible depression or anxiety, or substance use disorder. I shared this with provider, Dr. Oswald Servin Thank you for this consultation. I spent minutes with the patient and/or on the patient floor today, greater than?50% of which was spent counseling/coordinating care. Patient educated on: diagnosis, medication risk/benefits and substance abuse Informed Consent: understands
--- NOTE | 2021-08-08 11:14 | P.PNNP_ITS ---
Subjective Subjective Date of Service: 08/08/21 Interval history: Events noted hipolito , uncontrolled htn&dm. Physical Exam Vital Signs: Vital Signs: Last Vital Signs Temp 98.0 F 08/08/21 07:36 Pulse 90 08/08/21 07:36 Resp 18 08/08/21 07:36 BP 144/94 H 08/08/21 07:36 Pulse Ox 98 08/08/21 07:36 O2 Del Method 08/08/21 07:36 O2 Flow Rate 2 08/06/21 04:00 FiO2 30 08/03/21 09:00 Oxygen Flow Rate 15 07/29/21 14:57 BMI result Body Mass Index 28.6 Const: General: alert and awake Neck: Neck: Yes supple Resp: Effort & Inspection: normal respiratory effort and no respiratory distre ss Auscultation: clear to auscultation bilaterally Cardio: Rate: regular rate and tachycardic Rhythm: regular rhythm Heart sounds: no gallops, no murmurs and no rubs GI: Palpation (GI): Soft to palpation and Other GI palpation findings present ( Nontender) Auscultation: normal bowel sounds Extrem: General: Yes no pedal edema and No cyanosis Objective Data Labs CBC & Chem 7: 08/05/21 06:13 08/08/21 06:49 Labs: Laboratory Results - last 24 hr 08/07/21 08/07/21 08/07/21 11:11 16:47 16:50 Sodium 136 Potassium 4.4 Chloride 104 Carbon Dioxide 16 L Anion Gap 20 BUN 65 H Creatinine 3.28 H Estim Creat Clear Calc 30.6 Estimated GFR 21 POC Glucose 325 H 271 H Random Glucose 275 H Calcium 8.4 Magnesium 2.2 08/07/21 08/08/21 08/08/21 20:43 06:49 07:31 Sodium 136 Potassium 4.2 Chloride 105 Carbon Dioxide 17 L Anion Gap 18 BUN 52 H Creatinine 3.21 H Estim Creat Clear Calc 31.7 Estimated GFR 22 POC Glucose 219 H 238 H Random Glucose 239 H Calcium 8.9 Magnesium Microbiology Microbiology Results: Microbiology 07/31/21 19:24 Blood - Venous Blood Culture - Final No growth after 5 days. 07/31/21 19:24 Blood - Venous Blood Culture - Final No growth after 5 days. 08/01/21 01:24 Sputum - Suctioned Gram Stain - Final 08/01/21 01:24 Sputum - Suctioned Sputum Culture - Final Denise albicans 07/29/21 15:09 Blood - Venous Blood Culture - Final No growth after 5 days. 07/29/21 15:12 Blood - Venous Blood Culture - Final No growth after 5 days. Procedures Date of Service Date of Service: 08/08/21 Assessment & Plan Assessment and plan (1) Acute on chronic kidney failure: Status: Acute Plan 35-year-old man with type 1 diabetes mellitus, comes in with hypoxic respiratory failure, severe hypertension, acute kidney injury with hyperkalemia. ? At the present time, the renal function is improving.? There is no emergent indication for dialysis.? The hyperkalemia stands corrected.? He did have hyponatremia at time of admission, which is also corrected. ? RECOMMENDATION:? Is to optimize his blood pressure.? Maintain systolic blood pressure between 120-140 mmHg and avoid hypotension.? Continue to avoid nephrotoxic agents.? .? Keep intake more than the output and optimize blood sugar.?.? We will follow him closely with the team. Time Spent With Patient Time: Total time spent is greater than 50% in coordination of care (as documented) at patient's floor/unit and/or counseling patient: Progress Note: Quality Stroke Does the patient have a stroke diagnosis?: No
[2021-08-08 11:27] LABS: Glucose, Whole Blood 249 mg/dL (60-115)
--- NOTE | 2021-08-08 14:44 | HO.PM.IMPN ---
Subjective Subjective Date of Service: 08/08/21 Interval History: kayode , uncontrolled htn&dm. Review of Systems mental status seems somewhat improving, no fever or abdominal pain or nausea vomiting Physical Exam Vital Signs: Vital Signs: Last Vital Signs Temp 98.1 F 08/08/21 11:44 Pulse 87 08/08/21 11:44 Resp 18 08/08/21 11:44 BP 128/71 08/08/21 11:44 Pulse Ox 97 08/08/21 11:44 O2 Del Method 08/08/21 11:44 O2 Flow Rate 2 08/06/21 04:00 FiO2 30 08/03/21 09:00 Oxygen Flow Rate 15 07/29/21 14:57 BMI result Body Mass Index 28.6 General: little confused Resp:? CTA bilateral CVS: S1,S2,RRR GI: +BS, NT, no distention Skin: No rash Neuro:? motor grossly intact Psych: appropriate affect Objective Data Active Medications Acetaminophen (Acetaminophen 325 Mg Tablet) 650 mg PO Q6H PRN PRN Reason: Pain, Mild (Pain Scale 1-3) Last Admin: 08/05/21 11:35 Dose: 650 mg Documented By: STIVEN Amlodipine Besylate (Amlodipine Besylate 10 Mg Tablet) 10 mg PO DAILY [facility]; Protocol Last Admin: 08/08/21 09:17 Dose: 10 mg Documented By: HAILEY Dextrose (Dextrose 50 % 25 Gm/50 Ml Syringe) 25 gm IVPUSH Q30M PRN PRN Reason: BG < 70 Dextrose (Dextrose 50 % 25 Gm/50 Ml Syringe) 25 gm IVPUSH Q15M PRN; Protocol PRN Reason: per Hypoglycemia Standing Ord. Glucose (Glucose Gel 15 Gm Gel..Gram.) 15 gm PO Q15M PRN; Protocol PRN Reason: per Hypoglycemia Standing Ord. Heparin Sodium (Porcine) (Heparin Sodium,Porcine 5,000 Unit/Ml Vial) 5,000 unit SUBCUT Q8H [facility] Last Admin: 08/08/21 09:15 Dose: 5,000 unit Documented By: HAILEY Hydralazine HCl (Hydralazine Hcl 50 Mg Tablet) 75 mg PO TID [facility]; Protocol Last Admin: 08/08/21 09:15 Dose: 75 mg Documented By: HAILEY Insulin Glargine (Insulin Glargine,Hum.Rec.Anlog 100 Unit/Ml 10 Ml Vial) 25 unit SUBCUT BEDTIME [facility] Last Admin: 08/07/21 21:57 Dose: 25 unit Documented By: GERARD Insulin Glargine (Insulin Glargine,Hum.Rec.Anlog 100 Unit/Ml 10 Ml Vial) 5 unit SUBCUT DAILY [facility] Last Admin: 08/08/21 09:13 Dose: 5 unit Documented By: HAILEY Insulin Human Lispro (Insulin Lispro 100 Unit/Ml 3 Ml Vial) 0 unit SUBCUT QIDACHS [facility]; Protocol Last Admin: 08/08/21 12:56 Dose: 6 unit Documented By: HAILEY Insulin Human Lispro (Insulin Lispro 100 Unit/Ml 3 Ml Vial) 3 unit SUBCUT TIDAC [facility] Last Admin: 08/08/21 12:56 Dose: 3 unit Documented By: HAILEY Metoprolol Succinate (Metoprolol Succinate Er 50 Mg Tab.Er.24h) 50 mg PO DAILY [facility]; Protocol Last Admin: 08/08/21 09:15 Dose: 50 mg Documented By: HAILEY Naloxone HCl (Naloxone Hcl 0.4 Mg/Ml Vial) 0.2 mg IVPUSH Q2M PRN PRN Reason: Excessive sedation or RR < 8 Valsartan (Valsartan 80 Mg Tablet) 80 mg PO DAILY [facility]; Protocol Last Admin: 08/08/21 09:15 Dose: 80 mg Documented By: HAILEY Zolpidem Tartrate (Zolpidem Tartrate 5 Mg Tablet) 5 mg PO BEDTIME PRN PRN Reason: Insomnia Last Admin: 08/07/21 21:46 Dose: 5 mg Documented By: GERARD Labs CBC & Chem 7: 08/05/21 06:13 08/08/21 06:49 Labs: Laboratory Results - last 24 hr 08/07/21 08/07/21 08/07/21 16:47 16:50 20:43 Anion Gap 20 Estim Creat Clear Calc 30.6 Estimated GFR 21 POC Glucose 271 H 219 H Random Glucose 275 H Calcium 8.4 Magnesium 2.2 08/08/21 08/08/21 08/08/21 06:49 07:31 11:19 Anion Gap 18 Estim Creat Clear Calc 31.7 Estimated GFR 22 POC Glucose 238 H 249 H Random Glucose 239 H Calcium 8.9 Magnesium Assessment and Plan (1) Type 1 diabetes: Status: Acute (2) Toxic encephalopathy: Status: Acute Plan 35/m? with Type 1 diabetes mellitus complicated by diabetes retinopathy/blindness and CKD2, h/o substance abuse disease admitted with alteration of mental status secondary to opioid OD (Fentanyl)? requiring ventilatory support further complicated by acute on chronic kidney failure, aspiration pneumonia.?? Toxic encephalopathy is likely due to opioid OD+withdrawal. Nearly resolved, but still has some residual confusion ct head repeated-unchanged ,neg neurochecks if does not improve-need neuro eval-added EEG, ct heda neg,? possible psych related. Hypertensive urgency requiring Cardene drip in ICU. BP somewhat improving? remains high on Valsartan 80, Toprol 50, and Norvasc 10 and? adjusted Hydralazine 75 tid . acute respiratory failure due to OD? requiring ventilatory support, resolved.? ? Extubated 08/03/2021. Acute on chronic kidney failure (CKD2) , improving.? Non-oliguric.? Continue to monitor renal indices and urine output. Type 1 diabetes mellitus, no DKA-still hyperglycemia adjusted Lantus 25 and as well as SSI. ? Aspiration PNA has been on Unasyn since 08/01--no hypoxia, no fever, WBC normal on unasyn since 08/01 , complete antibiotics today Dvt prophylaxis: Heparin Need for inpatient: toxic metabolic encephalopathy, KAYODE, on IV Abx for pneumonia? Quality Stroke Does the patient have a stroke diagnosis?: No VTE Prior VTE?: No VTE Risk Level:: Medical - moderate - high VTE Device Contraindication: N/A - Device Ordered VTE Drug Contraindication: Treatment Not Indicated
[2021-08-08 17:02] LABS: Glucose, Whole Blood 142 mg/dL (60-115)
[2021-08-08 19:28] LABS: Appearance Urine CLEAR; Color Urine YELLOW; Glucose Urine UA NEG (NEG); Leukocyte Esterase Urine NEG (NEG); Nitrite Urine NEG (NEG); PH 5.5 (5.0-8.0); Specific Gravity - Urine >= 1.030 (1.005-1.025); Urine Blood NEG (NEG); Urine Ketones NEG (NEG); Urine Protein 2+ MG/DL (NEG-TRACE)
[2021-08-08 19:39] LABS: Bacteria Urine 1+ /LPF; RBC Urine 0 /HPF (0); WBC Urine 0 /HPF (0-4)
[2021-08-08 20:41] LABS: Glucose, Whole Blood 111 mg/dL (60-115)
[2021-08-08] MEDS: diphenhydrAMINE HCL 25 MG TABLET 50 MG PO (22:33)
[2021-08-08] MEDS: Insulin Glargine,Hum.rec.anlog 100 UNIT/ML 10 ML VIAL 30 UNIT SUBCUT (22:36)
[2021-08-09] VITALS: BP 133/67; PULSE 86; RESP 15; TEMP 37.1; O2SAT 98
[2021-08-09] MEDS: Heparin Sodium,Porcine 5,000 UNIT/ML VIAL 5000 UNIT SUBCUT ×2 (03:18→09:30)
[2021-08-09 04:00] VITALS: BP 132/76; PULSE 84; RESP 15; TEMP 37.2; O2SAT 96
[2021-08-09 07:53] VITALS: BP 131/73; PULSE 87; RESP 16; TEMP 36.8; O2SAT 96
[2021-08-09 08:01] LABS: Glucose, Whole Blood 200 mg/dL (60-115)
[2021-08-09] MEDS: Valsartan 80 MG TABLET PO (09:28)
[2021-08-09] MEDS: amLODIPine Besylate 10 MG TABLET PO (09:28)
[2021-08-09] MEDS: Metoprolol Succinate ER 50 MG TAB.ER.24H PO (09:29)
[2021-08-09] MEDS: hydrALAZINE HCl 50 MG TABLET 75 MG PO ×2 (09:29→15:08)
[2021-08-09] MEDS: Insulin Glargine,Hum.rec.anlog 100 UNIT/ML 10 ML VIAL 7 UNIT SUBCUT (09:30)
[2021-08-09] MEDS: Insulin Lispro 100 UNIT/ML 3 ML VIAL SUBCUT ×3 (09:31→13:51)
[2021-08-09 11:26] VITALS: BP 122/70; PULSE 88; RESP 16; TEMP 36.7; O2SAT 97
[2021-08-09 11:43] LABS: Glucose, Whole Blood 134 mg/dL (60-115)
--- NOTE | 2021-08-09 12:11 | MHC.CM.PN ---
Addendum entered by Su Arteaga 08/09/21 12:41: [facility] OFFERING SERVICES AND WILL INITIATE START OF CARE THURSDAY Original Note: PT TO DC HOME TODAY WITH RESUMPTION OF STERILIZATION TECHNICIAN SERVICES AND NEW [facility] REFERRAL MADE TO [facility]. AWAITING RESPONSE. PT WILL ARRANGE HIS OWN TRANSPORTATION
--- NOTE | 2021-08-09 12:31 | PM.PNNEP ---
Subjective Subjective Date of Service: 08/09/21 Interval history: hipolito , uncontrolled htn&dm. Physical Exam Vital Signs: Vital Signs: Last Vital Signs Temp 98.0 F 08/09/21 11:26 Pulse 88 08/09/21 11:26 Resp 16 08/09/21 11:26 BP 122/70 08/09/21 11:26 Pulse Ox 97 08/09/21 11:26 O2 Del Method 08/09/21 11:26 O2 Flow Rate 2 08/06/21 04:00 FiO2 30 08/03/21 09:00 Oxygen Flow Rate 15 07/29/21 14:57 BMI result Body Mass Index 28.6 Const: General: alert and awake Neck: Neck: Yes supple Resp: Effort & Inspection: normal respiratory effort and no respiratory distress Auscultation: clear to auscultation bilaterally Cardio: Rate: regular rate and tachycardic Rhythm: regular rhythm Heart sounds: no gallops, no murmurs and no rubs GI: Palpation (GI): Soft to palpation and Other GI palpation findings present ( Nontender) Auscultation: normal bowel sounds Extrem: General: Yes no pedal edema and No cyanosis Objective Data Labs CBC & Chem 7: 08/05/21 06:13 08/08/21 06:49 Labs: Laboratory Results - last 24 hr 08/08/21 08/08/21 08/08/21 16:29 18:08 20:37 POC Glucose 142 H 111 Urine Color YELLOW Urine Appearance CLEAR Urine pH 5.5 Ur Specific [place] >= 1.030 H Urine Protein 2+ H Urine Glucose (UA) NEG Urine Ketones NEG Urine Blood NEG Urine Nitrite NEG Ur Leukocyte Esterase NEG Urine RBC 0 Urine WBC 0 Ur Squamous Epith Cells NONE Urine Bacteria 1+ 08/09/21 08/09/21 07:56 11:28 POC Glucose 200 H 134 H Urine Color Urine Appearance Urine pH Ur Specific [place] Urine Protein Urine Glucose (UA) Urine Ketones Urine Blood Urine Nitrite Ur Leukocyte Esterase Urine RBC Urine WBC Ur Squamous Epith Cells Urine Bacteria Microbiology Microbiology Results: Microbiology 07/31/21 19:24 Blood - Venous Blood Culture - Final No growth after 5 days. 07/31/21 19:24 Blood - Venous Blood Culture - Final No growth after 5 days. 08/01/21 01:24 Sputum - Suctioned Gram Stain - Final 08/01/21 01:24 Sputum - Suctioned Sputum Culture - Final Denise albicans 07/29/21 15:09 Blood - Venous Blood Culture - Final No growth after 5 days. 07/29/21 15:12 Blood - Venous Blood Culture - Final No growth after 5 days. Procedures Date of Service Date of Service: 08/09/21 Assessment & Plan Assessment and plan (1) Acute on chronic kidney failure: Status: Acute Plan 35-year-old man with type 1 diabetes mellitus, comes in with hypoxic respiratory failure, severe hypertension, acute kidney injury with hyperkalemia. ? At the present time, the renal function is improving.? There is no emergent indication for dialysis.? The hyperkalemia stands corrected.? He did have hyponatremia at time of admission, which is also corrected. ? RECOMMENDATION:? Is to optimize his blood pressure.? Maintain systolic blood pressure between 120-140 mmHg and avoid hypotension.? Continue to avoid nephrotoxic agents.? .? Keep intake more than the output and optimize blood sugar.?.? We will follow him closely with the team. Time Spent With Patient Time: Total time spent is greater than 50% in coordination of care (as documented) at patient's floor/unit and/or counseling patient: Progress Note: Quality Stroke Does the patient have a stroke diagnosis?: No
--- NOTE | 2021-08-09 12:38 | HO.ADDICT_ITS ---
History of Present Illness Date of Service: 08/09/2021 Chief Complaint: Acute hypoxemic respiratory failure/altered mental Reason for Consult: Opioid overdose Requesting physician: Jasper Servin Discussed with referring provider: Yes Sources of Information: patient interviewed and chart reviewed Additional Sources of Information: significant other, Dali [facility] Narrative: Patient is a 35 year old Beninese speaking male currently medically admitted following opioid overdose/respiratory failure requiring intubation. Patient seen in room 467. Awake, alert, pleasant and engaged in interview. Discussed with patient reason for admission, patient reports that he had take in what he thought was a Percocet and overdosed. Reports that he will by pain medications (Percocet) on the street at least once a month due to back pain. He denies any dependence, withdrawal symptoms or addiction. Reviewed with patient risk associated with taking any pills from the street given the amount of unknown substances that are now being cut in to pills, in particular fentanyl. Patient verbalized understanding. Denies any history of substance use, reports that he takes the Percocet by mouth in usually a 30 mg tablet will last him for quite some time. Did not appear to be experiencing any discomfort or withdrawal symptoms when seen by this screenplay writer. This screenplay writer also spoke to patient's significant other, Dali. Discussed overdose prevention with her, informed her that patient would be going home with take home Narcan. Reviewed importance of calling 911 and administering Narcan if patient experienced another episode of overdose. She reports that patient will by the pain medication due to stomach pain, this screenplay writer attempted to provide some Education or around the risk of developing dependence and withdrawal symptoms with frequent use of opioids. Patient's partner minimally involved in interview, minimally responsive, but did verbalize understanding when asked. Past Psychiatric History: unknown Review of Systems Constitutional: Reports as per HPI and Reports no additional constitutional complaints Diagnostics Vital Signs (24Hr): Vital Signs - 24 hr 08/08/21 16:00 08/08/21 15:34 08/08/21 20:00 Temperature 100.2 F 98.6 F Pulse Rate 101 H 88 Respiratory Rate 18 20 Blood Pressure 133/75 133/66 Pulse Oximetry 97 97 98 Oxygen Delivery Method Room Air Room Air 08/09/21 00:00 08/09/21 04:00 08/09/21 07:53 Temperature 98.8 F 98.9 F 98.2 F Pulse Rate 86 84 87 Respiratory Rate 15 15 16 Blood Pressure 133/67 132/76 131/73 Pulse Oximetry 98 96 96 Oxygen Delivery Method Room Air Room Air Room Air 08/09/21 11:26 Temperature 98.0 F Pulse Rate 88 Respiratory Rate 16 Blood Pressure 122/70 Pulse Oximetry 97 Oxygen Delivery Method Room Air BMI result Body Mass Index 28.6 Labs Results: 08/05/21 06:13 08/08/21 06:49 Labs: Laboratory Results - last 48 hr 08/07/21 08/07/21 08/07/21 16:47 16:50 20:43 Sodium 136 Potassium 4.4 Chloride 104 Carbon Dioxide 16 L Anion Gap 20 BUN 65 H Creatinine 3.28 H Estim Creat Clear Calc 30.6 Estimated GFR 21 POC Glucose 271 H 219 H Random Glucose 275 H Calcium 8.4 Magnesium 2.2 Urine Color Urine Appearance Urine pH Ur Specific [place] Urine Protein Urine Glucose (UA) Urine Ketones Urine Blood Urine Nitrite Ur Leukocyte Esterase Urine RBC Urine WBC Ur Squamous Epith Cells Urine Bacteria 08/08/21 08/08/21 08/08/21 06:49 07:31 11:19 Sodium 136 Potassium 4.2 Chloride 105 Carbon Dioxide 17 L Anion Gap 18 BUN 52 H Creatinine 3.21 H Estim Creat Clear Calc 31.7 Estimated GFR 22 POC Glucose 238 H 249 H Random Glucose 239 H Calcium 8.9 Magnesium Urine Color Urine Appearance Urine pH Ur Specific [place] Urine Protein Urine Glucose (UA) Urine Ketones Urine Blood Urine Nitrite Ur Leukocyte Esterase Urine RBC Urine WBC Ur Squamous Epith Cells Urine Bacteria 08/08/21 08/08/21 08/08/21 16:29 18:08 20:37 Sodium Potassium Chloride Carbon Dioxide Anion Gap BUN Creatinine Estim Creat Clear Calc Estimated GFR POC Glucose 142 H 111 Random Glucose Calcium Magnesium Urine Color YELLOW Urine Appearance CLEAR Urine pH 5.5 Ur Specific [place] >= 1.030 H Urine Protein 2+ H Urine Glucose (UA) NEG Urine Ketones NEG Urine Blood NEG Urine Nitrite NEG Ur Leukocyte Esterase NEG Urine RBC 0 Urine WBC 0 Ur Squamous Epith Cells NONE Urine Bacteria 1+ 08/09/21 08/09/21 07:56 11:28 Sodium Potassium Chloride Carbon Dioxide Anion Gap BUN Creatinine Estim Creat Clear Calc Estimated GFR POC Glucose 200 H 134 H Random Glucose Calcium Magnesium Urine Color Urine Appearance Urine pH Ur Specific [place] Urine Protein Urine Glucose (UA) Urine Ketones Urine Blood Urine Nitrite Ur Leukocyte Esterase Urine RBC Urine WBC Ur Squamous Epith Cells Urine Bacteria Imaging Radiology Impressions: ITS Impressions Chest X-Ray 07/29/21 15:30 IMPRESSION: No acute intracranial process seen. Left middle ear cholesteatoma. Unremarkable chest exam. Head CT 07/29/21 15:30 IMPRESSION: No acute intracranial process seen. Left middle ear cholesteatoma. Unremarkable chest exam. Chest X-Ray 07/29/21 18:20 IMPRESSION: Tubes and lines as described. No pneumothorax. Patchy bilateral worsening airspace disease. Head CT 08/06/21 13:30 IMPRESSION: No acute intracranial process seen. Likely left middle ear cholesteatoma with soft tissue mass similar to previous study. This likely chronic bilateral mastoid inflammatory changes. Most of the mastoid sinus is sclerosed. Mental Status Exam Mental Status Exam Patient Appearance: Appropriate Patient Behavior: Appropriate, Talkative and Cooperative Judgement: Fair Medications Medications Current Medications Acetaminophen (Acetaminophen 325 Mg Tablet) 650 mg PO Q6H PRN PRN Reason: Pain, Mild (Pain Scale 1-3) Last Admin: 08/05/21 11:35 Dose: 650 mg Amlodipine Besylate (Amlodipine Besylate 10 Mg Tablet) 10 mg PO DAILY [facility]; Protocol Last Admin: 08/09/21 09:28 Dose: 10 mg Dextrose (Dextrose 50 % 25 Gm/50 Ml Syringe) 25 gm IVPUSH Q30M PRN PRN Reason: BG < 70 Dextrose (Dextrose 50 % 25 Gm/50 Ml Syringe) 25 gm IVPUSH Q15M PRN; Protocol PRN Reason: per Hypoglycemia Standing Ord. Glucose (Glucose Gel 15 Gm Gel..Gram.) 15 gm PO Q15M PRN; Protocol PRN Reason: per Hypoglycemia Standing Ord. Heparin Sodium (Porcine) (Heparin Sodium,Porcine 5,000 Unit/Ml Vial) 5,000 unit SUBCUT Q8H [place] Last Admin: 08/09/21 09:30 Dose: 5,000 unit Hydralazine HCl (Hydralazine Hcl 50 Mg Tablet) 75 mg PO TID [facility]; Protocol Last Admin: 08/09/21 09:29 Dose: 75 mg Insulin Glargine (Insulin Glargine,Hum.Rec.Anlog 100 Unit/Ml 10 Ml Vial) 7 unit SUBCUT DAILY [facility] Last Admin: 08/09/21 09:30 Dose: 1 unit Insulin Glargine (Insulin Glargine,Hum.Rec.Anlog 100 Unit/Ml 10 Ml Vial) 30 unit SUBCUT BEDTIME [facility] Last Admin: 08/08/21 22:36 Dose: 30 unit Insulin Human Lispro (Insulin Lispro 100 Unit/Ml 3 Ml Vial) 0 unit SUBCUT QIDACHS [facility]; Protocol Last Admin: 08/09/21 09:31 Dose: 3 unit Insulin Human Lispro (Insulin Lispro 100 Unit/Ml 3 Ml Vial) 3 unit SUBCUT TIDAC [facility] Last Admin: 08/09/21 09:32 Dose: 3 unit Metoprolol Succinate (Metoprolol Succinate Er 50 Mg Tab.Er.24h) 50 mg PO DAILY [facility]; Protocol Last Admin: 08/09/21 09:29 Dose: 50 mg Naloxone HCl (Naloxone Hcl 0.4 Mg/Ml Vial) 0.2 mg IVPUSH Q2M PRN PRN Reason: Excessive sedation or RR < 8 Valsartan (Valsartan 80 Mg Tablet) 80 mg PO DAILY [facility]; Protocol Last Admin: 08/09/21 09:28 Dose: 80 mg Zolpidem Tartrate (Zolpidem Tartrate 5 Mg Tablet) 5 mg PO BEDTIME PRN PRN Reason: Insomnia Last Admin: 08/07/21 21:46 Dose: 5 mg Allergies Allergies Allergy/AdvReac Type Severity Reaction Status Date / Time gluten Allergy Gastrointestinal Verified 08/06/21 16:50 Upset Assessment & Plan Assessment & Plan (1) Opioid overdose: Status: Acute Code(s): T40.2X1A - Poisoning by other opioids, accidental (unintentional), initial encounter Assessment and Plan: * Overdose resolved. Take home Narcan provided for patient. Education given to both patient and patient's partner regarding use of Narcan. * Overdose prevention and risk reduction discussion with patient, including avoiding pills on the street seeking treatment from medical provider for pain * Case discussed with attending I spent __30____ minutes with the patient and/or on the patient floor today, greater than?50% of which was spent counseling/coordinating care. [facility] Past Medical History Medical History Acute on chronic kidney failure Chronic kidney disease, stage 3 Diabetic visual loss, with retinopathy, associated with type 1 diabetes mellitus Essential hypertension Gastritis Hemangioma of liver Hyperglycemia due to type 1 diabetes mellitus Hypertension associated with diabetes Polyneuropathy Sciatica Family History Family History Father Diabetes mellitus Mother Diabetes mellitus Maternal Grandfather Diabetes mellitus Maternal Grandmother Diabetes mellitus Surgical History Surgical History Hx of appendectomy Hx of circumcision Hx of endoscopy Hx of eye surgery Social History Social History Household Members: Spouse and Unknown / Unable to assess Household Members Other:: and girlfriend Housing: Apartment Do you presently have visiting nurse or other home services: No Unable to assess alcohol history related to: Unknown Alcohol intake: current Alcohol intake frequency: holidays/special occasions only Alcohol type: hard liquor Patient Tobacco Use Status: Former Tobacco user Second Hand Smoke Exposure: No Substance Use Type: Crack/Cocaine and Opiates Currently Displaying Signs/Symptoms of Drug Intoxication Withdrawal: No Advance Directives: No Advance Directives Information Provided: No Do you have thoughts of harming others: None Do you have a plan to hurt others: No Plan Recently lost weight without trying: Unsure Poor oral hygiene: Yes service: No Current occupational status: disabled
--- NOTE | 2021-08-09 13:14 | W.MHC.F2F ---
Service Date Service Date: 08/09/21 Encounter Date of encounter: 08/09/21 Reasons for Services Signs and symptoms assessed: kayode on ckd, acute hypoxemic respiratory failure secondary to opioid overdose. Uncontrolled diabetes and hypertension. Overseeing Care: Hong Name Homebound: Leaving the home is medically contraindicated at this time without the asist of a device and/or another person due th the listed conditions above and below. Reason homebound: weakness related to hospital stay Homebound supporting statement: Patient had multiple comorbidities- including uncontrolled hypertension and diabetes, as well as KAYODE on CKD- need help with the blood draws as well as went to the appointments. Certification: Based on the above findings, I certify that this patient is confined to the home and needs intermittent retirement care, physical therapy and/or speech therapy, or continues to need occupational therapy. The patient is under my care, and I have initiated the establishment of the plan of care. The patient will be followed by a physician who will periodically review the plan of care.
--- NOTE | 2021-08-09 13:16 | PM.DS ---
DS: Providers Provider Date of Service: 08/09/21 Date of admission: 07/29/21 16:49 Primary care physician: Hong Rodríguez MD Consults: 08/06/21 13:47 Consult to Neurology Routine Consulting Provider: [facility] Reason for consultation: encephalopathy -unclear etiology Has provider been notified: No 08/07/21 09:36 Consult to Nephrology Routine Consulting Provider: Onur Bejarano Reason for consultation: kayode/uncontrollted htn Has provider been notified: No 08/07/21 13:26 Consult to Psychiatry Routine Consulting Provider: Psych Covering Reason for consultation: Confusion/intermittent agiatation-?psych related Has provider been notified: No 08/09/21 08:38 Consult to Care Team Routine Comment: Reason for consultation: initaly came with opoiod over dose DS: Diagnosis Discharge Diagnosis (1) Opioid overdose: Status: Acute DS: Summary Hospital Course Hospital Course: 35-year-old with history of type 1 diabetes mellitus previous episodes of diabetic ketoacidosis and also known polysubstance abuser presents with altered mental status respiratory distress and acute hypoxic respiratory failure clearly in an agitated state required emergent intubation was acutely hypertensive with what appears to be a a picture of either severe diffuse bilateral in infiltrates with consolidation versus pulmonary edema and that needs to be differentiated between noncardiogenic cardiogenic Initially blood pressure was over 220 systolic sinus tachycardia no acute ST-T changes on his EKG bedside echo showing normal LV and RV systolic function without segmental wall motion abnormality no primary valve or pericardial disease and the patient appears to be dry no edema neck veins flat palpable bilateral carotid upstrokes evidence of acute on chronic renal failure with marked hyperkalemia and hyponatremia which I am sure is a pseudo hyponatremia based on the glucose of 1000 Profound positive anion gap metabolic acidosis lactate accounting for at least 8 out of the 11 of negative base excess that we see the ketoacidosis and/or renal failure probably accounting for the rest Based on this drug screen is is pending I prefer not to to go ahead and treat in case cocaine is playing a role here in air with in relation to his blood pressure and he definitely needs a central line so we could administer fluids and not worsen the pulmonary edema based on the the the CVP Giving him is initial bolus of insulin starting insulin drip but being very sparing with his IV fluids until we can determine the level of his CVP. Hospital course: 35/m? with Type 1 diabetes mellitus complicated by diabetes retinopathy/blindness and CKD2, h/o substance abuse disease admitted with alteration of mental status secondary to opioid OD (Fentanyl)? requiring ventilato try support further complicated by acute on chronic kidney failure, aspiration pneumonia.?? patient toxic metabolic encephalopathy and acute hypoxemic respiratory failure secondary to opioid overdose-requiring ventilato try support further complicated by acute on chronic kidney failure, aspiration pneumonia.?? needed intubation for acute hypoxemic respiratory failure secondary to opioid overdose- which is improved Ventilatory support as well as holding opioids and subsequently extubated.patient completed the antibiotic course for aspiration pneumonia. in addition patient had uncontrolled hypertension required Cardene drip in ICU. Subsequently blood pressure started improving and patient was transferred to floor after extubation- patient blood pressure medication regimen adjusted to amlodipine, metoprolol, hydralazine, continued valsartan. Toxic metabolic encephalopathy probably related to multifactorial issues including opioid use, Kayode on CKD. which seems to be improved to the baseline . neurology saw the patient- EEG seems fine, less likely neurological related toxic metabolic encephalopathy, seen by psych also patient is at baseline mental status currently, so no further intervention currently. seen by Recovery team- seems like accidental opioid overdose, patient seems clear to go home. diabetes control was also suboptimal so Lantus adjusted. kidney function seems to be improving with good diabetic and blood pressure control. Monitor renal function outpatient Outpatient in 1 week. further management as per PCP. plan: encouraged for dietary compliance diabetic mayes, also compliance with medication diabetes medications as adjusted as well as blood pressure medications as adjusted. diabetes: Lantus adjusted to 30 units, also coverage with the meal adjusted 5 unit Humalog with meals. strict diabetic diet hypertension: medication adjusted- hydralazine po 75 mg t.i.d., added amlodipine 10 mg daily, continue metoprolol and valsartan home dose. need BMP monitor in 1 week outpatient. Follow-up with Nephrology outpatient. Patient will be going home with [facility] considering multiple medical issues as above. Above management discussed with the patient's /significant other ( miss gomez With the help of child care centre director) in detail length she understand and in agreement with the above plan, time spent 50 minutes and 50% time spent on counseling. Significant findings: As above. Procedures performed: None. Treatment and response: As above. Complications: None. Time Spent with Patient Time attestation: Total time spent providing and/or coordinating discharge services: Discharge coordination time: Greater than 30 minutes Quality: Safe Use of Opioids Does Pt have an Active Cancer Diagnosis on the Problem List?: No Quality: Stroke Does the patient have a stroke diagnosis?: No Physical Exam Vital Signs: Vital Signs: Last Vital Signs Temp 98.0 F 08/09/21 11:26 Pulse 88 08/09/21 11:26 Resp 16 08/09/21 11:26 BP 122/70 08/09/21 11:26 Pulse Ox 97 08/09/21 11:26 O2 Del Method 08/09/21 11:26 O2 Flow Rate 2 08/06/21 04:00 FiO2 30 08/03/21 09:00 Oxygen Flow Rate 15 07/29/21 14:57 BMI result Body Mass Index 28.6 General: little confused Resp:? CTA bilateral CVS: S1,S2,RRR GI: +BS, NT, no distention Skin: No rash Neuro:? motor grossly intact Psych: appropriate affect DS: Data Data Completed and Pending Labs on day of discharge: Laboratory Results - last 24 hr 08/08/21 08/08/21 08/08/21 16:29 18:08 20:37 POC Glucose 142 H 111 Urine Color YELLOW Urine Appearance CLEAR Urine pH 5.5 Ur Specific [place] >= 1.030 H Urine Protein 2+ H Urine Glucose (UA) NEG Urine Ketones NEG Urine Blood NEG Urine Nitrite NEG Ur Leukocyte Esterase NEG Urine RBC 0 Urine WBC 0 Ur Squamous Epith Cells NONE Urine Bacteria 1+ 08/09/21 08/09/21 07:56 11:28 POC Glucose 200 H 134 H Urine Color Urine Appearance Urine pH Ur Specific [place] Urine Protein Urine Glucose (UA) Urine Ketones Urine Blood Urine Nitrite Ur Leukocyte Esterase Urine RBC Urine WBC Ur Squamous Epith Cells Urine Bacteria Additional Comments Additional comments: CT/CT head/brain wo con IMPRESSION: No acute intracranial process seen. ? Likely left middle ear cholesteatoma with soft tissue mass similar to previous study. ? This likely chronic bilateral mastoid inflammatory changes. Most of the mastoid sinus is sclerosed. XR/XR chest 1V IMPRESSION: Tubes and lines as described. No pneumothorax. Patchy bilateral worsening airspace disease. ? Discharge Plan Discharge Patient Disposition: Home Health Service Discharge Diagnosis: Toxic metabolic encephalopathy and acute respiratory failure secondary to opioid overdose, uncontrolled hypertension and diabetes. KAYODE on CKD. Referrals: [facility] [Outside] - 1 Week Name,MD Hong [Primary Care Provider] - 1 Week Onur Bejarano MD [Physician] - 1 Week (followup outpatiently) Discharge Medications: New amlodipine 10 mg Tablet 10 mg PO DAILY Qty: 30 0RF Protocol: Hold for SBP< HOLD for SBP < : 90 hydralazine 50 mg Tablet 75 mg PO TID Qty: 90 0RF Protocol: Hold for SBP< HOLD for SBP < : 90 Continued cholecalciferol (vitamin D3) 50 mcg (2,000 unit) capsule 50 mcg PO DAILY 30 Days Qty: 30 6RF atorvastatin 80 mg tablet 80 mg PO DAILY Qty: 30 6RF ezetimibe [Zetia] 10 mg tablet 10 mg PO DAILY 90 Days Qty: 90 1RF gabapentin 100 mg capsule 2 cap PO BID metoprolol succinate 50 mg tablet extended release 24 hr 1 tab PO DAILY omeprazole 40 mg capsule,delayed release(DR/EC) 40 mg PO DAILY@0630 nortriptyline 50 mg capsule 50 mg PO BEDTIME (DME) pen needle, diabetic [BD Ultra-Fine Shannan Pen Needle] 32 gauge x 5/32 needle See Rx Instructions .ROUTE QID Qty: 50 Rx Instructions: As directed valsartan 80 mg tablet 80 mg PO DAILY Changed insulin lispro 100 unit/mL insulin pen 5 unit subcut TIDAC Qty: 15 0RF insulin glargine [Lantus Solostar U-100 Insulin] 100 unit/mL (3 mL) insulin pen 30 unit subcut BEDTIME Qty: 15 0RF Discontinued hydralazine 25 mg tablet 1 tab PO TID Discharge Orders: Discharge Order (Routine); Ordered 08/09/21 Ordered By: Jasper Servin Diet: advance to usual diet Activity on Discharge: As tolerated Stand Alone Forms: Patient Portal Discharge page Care Plan Goals: patient confusion and breathing seems to be improved after stopping opioids, needed intubation for breathing problem- which is improved. also needed intravenous medication to control blood pressure now is blood pressure medication regimen adjusted. diabetes control was also suboptimal so Lantus adjusted. kidney function seems to be improving with good diabetic and blood pressure control. patient completed the antibiotic course for aspiration pneumonia. Monitor renal function outpatient Outpatient in 1 week. further management as per PCP. Health Concerns: As above. Discussed with patient's significant other who is also happened to be the LINE LOCATOR for patient. with the help of child care centre director- Encouraged for start strict diabetic diet, medication compliance, medication adjustment for blood pressure encouraged. strongly advised to avoid further opioid use. Plan of Treatment: As above. Assessment: As above.
== END 2021-08-09 15:55 | disposition home health service (06) | DRG 812 ==
LOC: HO.ED 17:40 → HO.EDOVER 17:46 → HO.ICU 19:29 → HO.IMC 08-05 02:09
PROVIDERS: Internal Medicine; Internal Medicine Pulmonary Disease; Physician Assistant; Admitting Provider Internal Medicine Cardiovascular Disease; Emergency Provider Emergency Medicine; PCP Internal Medicine Geriatric Medicine; Visit Provider Internal Medicine
DX: T40.411A Poisoning by fentanyl or fentanyl analogs, accidental (unintentional), initial encounter (principal); J81.0 Acute pulmonary edema; G92.8 Other toxic encephalopathy; N17.9 Acute kidney failure, unspecified; J96.01 Acute respiratory failure with hypoxia; J18.9 Pneumonia, unspecified organism; F05 Delirium due to known physiological condition; E10.42 Type 1 diabetes mellitus with diabetic polyneuropathy; E87.2 Acidosis; E10.65 Type 1 diabetes mellitus with hyperglycemia; I12.9 Hypertensive chronic kidney disease with stage 1 through stage 4 chronic kidney disease, or unspecified chronic kidney disease; I16.0 Hypertensive urgency; E10.22 Type 1 diabetes mellitus with diabetic chronic kidney disease; F11.13 Opioid abuse with withdrawal; E87.5 Hyperkalemia; H54.8 Legal blindness, as defined in USA; Z20.822 Contact with and (suspected) exposure to COVID-19; Z87.891 Personal history of nicotine dependence; Z79.899 Other long term (current) drug therapy
CPT/HCPCS: 36415; 70450; 71045; 80048; 80076; 80307; 81001; 82040; 82077; 82803; 82947; 83010; 83605; 83615; 83690; 83735; 83880; 84100; 84484; 85025; 85379; 85610; 86850; 86880; 86900; 86901; 87040; 87070; 87077; 87205; 87635; 93005; 94002; 94003; 94660; 94799; 95816; 96361; 96374; 96375; 96376; 99285; C1758; J0131; J0295; J0610; J1940; J2185; J2250; J2543; J3370; J3475; P9047; Q0163

== ENCOUNTER 2021-11-11 13:11 | Outpatient (REF) | payer MEDICAID, SELFPAY ==
--- NOTE | ~2021-11-11 | US_ITS ---
EXAMINATION: NONINVASIVE ANKLE BRACHIAL INDICES OF BOTH LOWER EXTREMITIES CLINICAL INFORMATION: Peripheral vascular disease. COMPARISON: None. TECHNIQUE: Ankle-brachial indices were calculated bilaterally and PVR tracings were performed at the level of the ankles. This study was performed at rest only. FINDINGS: a) AT REST: 1. The ankle-brachial indices are: Right 1.34 and left 1.3. >0.97-1.25 = normal - no significant arterial disease. 0.75-0.96 = mild peripheral arterial disease. 0.5-0.74 = moderate peripheral arterial disease. <0.50 = severe peripheral arterial disease. 2. PVR waveforms at ankle: Right: Normal. Left: Normal US/US GINI complete IMPRESSION: Normal ankle brachial indices and pulse volume recordings within the bilateral lower extremity.
== END 2021-11-11 13:12 | disposition home or self-care (01) ==
LOC: HO.US 13:11
PROVIDERS: Visit Provider Family Medicine
DX: M79.89 Other specified soft tissue disorders (principal)
CPT/HCPCS: 93923

== ENCOUNTER 2021-11-26 12:44 | Outpatient (REF) | payer MEDICAID, SELFPAY ==
--- NOTE | ~2021-11-26 | US_ITS ---
EXAMINATION: US LOWER EXTREMITY VENOUS (REFLUX EXAM), BILATERAL CLINICAL INDICATION: Chronic venous insufficiency COMPARISON: None. TECHNIQUE: Color flow triplex imaging and compression Doppler was performed to evaluate both the deep and the superficial systems bilaterally. To evaluate the superficial system, the examination was performed in the upright position. Color-flow Doppler ultrasound and compression ultrasound were utilized. In addition, maneuvers were utilized to demonstrate reflux. FINDINGS: 1. DEEP VENOUS ULTRASOUND OF THE RIGHT LOWER EXTREMITY: Common Femoral Vein: Compressible, normal respiratory variation and augmented flow. Femoral Vein: Compressible, normal color flow and augmentation. Popliteal Vein: Compressible, normal augmentation. Deep Reflux: There is no evidence of reflux in the deep system in either the common femoral vein or the popliteal vein. There is no evidence of a Almeida's cyst. 2. SUPERFICIAL ULTRASOUND WITH DOPPLER OF RIGHT LOWER EXTREMITY: GREAT SAPHENOUS VEIN: Saphenofemoral Junction: 0.6 cm; Reflux: 0 ms Proximal Thigh: 0.3 cm; Reflux: 0 ms Mid Thigh: 0.2 cm; Reflux: 0 ms Above Knee: 0.1 cm; Reflux: 0 ms At Knee: 0.1 cm; Reflux: 0 ms Below Knee: 0.1 cm; Reflux: 0 ms Mid Calf: Not visualized Ankle: Not visualized DUPLICATED MEDIAL GREAT SAPHENOUS VEIN: Diameter: None Imaged Reflux: NA DUPLICATED LATERAL GREAT SAPHENOUS VEIN: Diameter: 0.2 cm Reflux: None SMALL SAPHENOUS VEIN: Proximal: 0.3 cm; Reflux: 0 ms Distal: 0.3 cm; Reflux: 0 ms VEIN OF GIACOMINI: None Imaged. PERFORATORS: Location: None significant Size: NA Reflux: NA VARICOSITIES: Location: None Imaged Size: NA Reflux: NA 3. DEEP VENOUS ULTRASOUND OF THE LEFT LOWER EXTREMITY: Common Femoral Vein: Compressible, normal respiratory variation and augmented flow. Femoral Vein: Compressible, normal color flow and augmentation. Popliteal Vein: Compressible, normal augmentation. Deep Reflux: There is no evidence of reflux in the deep system in either the common femoral vein or the popliteal vein. There is no evidence of a Almeida's cyst. 4. SUPERFICIAL ULTRASOUND WITH DOPPLER OF LEFT LOWER EXTREMITY: GREAT SAPHENOUS VEIN: Saphenofemoral Junction: 0.5 cm; Reflux: 0 ms Proximal Thigh: 0.3 cm; Reflux: 0 ms Mid Thigh: 0.2 cm; Reflux: 0 ms Above Knee: 0.3 cm; Reflux: 0 ms At Knee: 0.2 cm; Reflux: 0 ms Below Knee: 0.1 cm; Reflux: 0 ms Mid Calf: 0.2 cm; Reflux: 0 ms Ankle: 0.2 cm; Reflux: 0 ms DUPLICATED MEDIAL GREAT SAPHENOUS VEIN: Diameter: None Imaged Reflux: NA DUPLICATED LATERAL GREAT SAPHENOUS VEIN: Diameter: None Imaged Reflux: NA SMALL SAPHENOUS VEIN: Proximal: 0.1 cm; Reflux: 0 ms Distal: 0.2 cm; Reflux: 0 ms VEIN OF GIACOMINI: None Imaged. PERFORATORS: Location: None significant Size: NA Reflux: NA VARICOSITIES: Location: None Imaged Size: NA Reflux: NA US/US venous duplex LE BI IMPRESSION: Right: No significant venous insufficiency Left: No significant venous insufficiency
== END 2021-11-26 12:45 | disposition home or self-care (01) ==
LOC: HO.US 12:44
PROVIDERS: Visit Provider Family Medicine
DX: I87.2 Venous insufficiency (chronic) (peripheral) (principal); M79.89 Other specified soft tissue disorders
CPT/HCPCS: 93970

== ENCOUNTER 2021-12-20 08:48 | Outpatient (REF) | payer MEDICAID, SELFPAY ==
[2021-12-20 10:11] LABS: Hematocrit 41.9 % (42.0-52.0); Mean Corpuscular HGB Conc 33.4 g/dl (31.0-36.0); Mean Corpuscular Hemoglobin 28.6 pg (27.0-33.0); Mean Corpuscular Volume 85.7 fL (80.0-98.0); Mean Platelet Volume 10.1 fL (9.4-12.4); Platelet Count 281 X10*3/uL (160-400); Red Blood Count 4.89 X10*6/uL (4.60-5.80); Red Cell Distribution Width 13.2 % (11.0-16.0); White Blood Count 8.5 X10*3/uL (4.8-10.8)
[2021-12-20 10:44] LABS: Anion Gap 16 (12-20); Blood Urea Nitrogen 41 mg/dL (9-16); Calcium 9.2 mg/dL (8.4-10.2); Carbon Dioxide 26 mmol/L (22-29); Chloride 105 mmol/L (96-108); Estimated Glomerular Filt Rate 18; Glucose Random 138 mg/dL (60-115); Iron 63 mcg/dL (45-160); Percent Iron Saturation 19 % (15-50); Potassium 5.1 mmol/L (3.3-5.1); Sodium 142 mmol/L (135-145); Total Iron Binding Capacity 332 mcg/dL (228-428); Unsaturated Iron Binding 269 ug/dL
[2021-12-20 11:10] LABS: Ferritin 35 ng/mL (20-250)
[2021-12-22 12:56] LABS: Calcium (PTHI) 9.4 mg/dL (8.6-10.3); PTHI 165 pg/mL (16-77)
== END 2021-12-20 08:49 | disposition home or self-care (01) ==
LOC: HO.LAB 08:48
PROVIDERS: PCP Internal Medicine Geriatric Medicine; Visit Provider Internal Medicine Hypertension Specialist
DX: E10.21 Type 1 diabetes mellitus with diabetic nephropathy (principal); N18.4 Chronic kidney disease, stage 4 (severe)
CPT/HCPCS: 36415; 80048; 82728; 83540; 83970; 85027

== ENCOUNTER → 2021-12-27 09:47 | Outpatient (BNVA) | payer MEDICAID, SELFPAY | PROVIDERS: PCP Internal Medicine Geriatric Medicine; Visit Provider Internal Medicine Endocrinology, Diabetes & Metabolism | DX: Z96.41 Presence of insulin pump (external) (internal) (principal); Z79.4 Long term (current) use of insulin | CPT/HCPCS: 82947; 83036; 99212 ==

== ENCOUNTER 2022-01-29 12:54 | Emergency (ER) | payer MEDICAID, SELFPAY ==
[2022-01-29 13:37] VITALS: BP 152/99; PULSE 104; RESP 18; TEMP 35.9; O2SAT 96; BMI 25.8
--- NOTE | 2022-01-29 13:38 | ED.HEATRA ---
HPI - Head Injury General Chief complaint: Wound/Laceration <Yuliya Merritt MD - Last Filed: 01/29/22 13:39> Stated complaint: L Eye Lac 01/29/22 <Yuliya Merritt MD - Last Filed: 01/29/22 13:39> Time Seen by Provider: 01/29/22 15:36 <Yuliya Merritt MD - Last Filed: 01/29/22 13:39> Source: patient and family <Teena Stock NP - Last Filed: 01/29/22 17:43> Mode of arrival: ambulatory <Teena Stock NP - Last Filed: 01/29/22 17:43> Limitations: no limitations <Teena Stock NP - Last Filed: 01/29/22 17:43> History of Present Illness HPI Narrative: 36 year old male with complex past medical history including DM 1, hypertension, pancreatitis, and legally blind presents to the emergency department today for a laceration on his left eye after hitting the counter while he was standing up. He denies any loss of consciousness at the time. Currently he denies any headache, dizziness, nausea, ringing in his ears, or confusion. <Teena Stock NP - Last Filed: 01/29/22 17:43> MD Complaint: head injury <Teena Stock NP - Last Filed: 01/29/22 17:43> Onset (ago): hour(s) <Teena Stock NP - Last Filed: 01/29/22 17:43> Mechanism of Injury: other <Teena Stock NP - Last Filed: 01/29/22 17:43> Place: home <Teena Stock NP - Last Filed: 01/29/22 17:43> Loss of Consciousness: no <Teena Stock NP - Last Filed: 01/29/22 17:43> Location of injury: face <Teena Stock NP - Last Filed: 01/29/22 17:43> Severity: mild <Teena Stock NP - Last Filed: 01/29/22 17:43> Associated symptoms: denies other symptoms <Teena Stock NP - Last Filed: 01/29/22 17:43> Related Data Home medications: Home Medications Medication Instructions Recorded Confirmed nortriptyline 50 mg capsule 50 mg PO BEDTIME 01/04/20 07/29/21 omeprazole 40 mg capsule,delayed 40 mg PO DAILY@0630 01/04/20 07/29/21 release pen needle, diabetic 32 gauge x #50 ea 07/12/21 07/12/21/32 (BD Ultra-Fine Shannan Pen Needle) valsartan 80 mg tablet 80 mg PO DAILY 07/12/21 07/29/21 gabapentin 100 mg capsule 2 cap PO BID 07/29/21 07/29/21 metoprolol succinate 50 mg 1 tab PO DAILY 07/29/21 07/29/21 tablet,extended release 24 hr insulin aspart U-100 100 unit/mL 5 unit subcut 12/27/21 (3 mL) subcutaneous pen Previous Rx's Medication Instructions Recorded cholecalciferol (vitamin D3) 50 50 mcg PO DAILY 30 days #30 caps 04/05/20 mcg (2,000 unit) capsule atorvastatin 80 mg tablet 80 mg PO DAILY #30 tabs 12/12/20 ezetimibe 10 mg tablet (Zetia) 10 mg PO DAILY 90 days #90 tabs 07/05/21 amlodipine 10 mg tablet 10 mg PO DAILY #30 tabs 08/09/21 hydralazine 50 mg tablet 75 mg PO TID #90 tabs 08/09/21 insulin glargine 100 unit/mL (3 30 unit (0.3 mL) subcut BEDTIME 08/09/21 mL) subcutaneous pen (Lantus #15 mL Solostar U-100 Insulin) insulin lispro 100 unit/mL 5 unit (0.05 mL) subcut TIDAC #15 08/09/21 subcutaneous pen mL <Yuliya Merritt MD - Last Filed: 01/29/22 13:39> Allergies/Adverse reactions: Allergies Allergy/AdvReac Type Severity Reaction Status Date / Time gluten Allergy Gastrointestinal Verified 12/27/21 09:56 Upset losartan Allergy Gastrointestinal Verified 01/29/22 13:40 Upset <Yuliya Merritt MD - Last Filed: 01/29/22 13:39> Review of Systems Review of Systems: Yes all other systems are reviewed and are negative <Teena Pluczeenat, CLOTH BOIL OFF MACHINE OPERATOR - Last Filed: 01/29/22 17:43> Constitutional: Constitutional: Reports no additional constitutional complaints, Denies headache(s) and Denies weakness <Teena Plucadannik, CLOTH BO[employer] OFF MACHINE OPERATOR - Last Filed: 01/29/22 17:43> Eyes: Eyes: Reports no additional eye complaints and Denies change in vision <Teena Plucadannik, CLOTH BOIL OFF MACHINE OPERATOR - Last Filed: 01/29/22 17:43> ENT: Reports system reviewed and no additional complaints, except as documented, Reports Normal hearing present, Denies dizziness and Denies headache(s) <Teena Pluciennik, CLOTH BOIL OFF MACHINE OPERATOR - Last Filed: 01/29/22 17:43> Cardiovascular: Cardiovascular: Reports no additional cardiovascular complaints, Denies chest pain and Denies dyspnea <Teena Pluciennik, CLOTH BOIL OFF MACHINE OPERATOR - Last Filed: 01/29/22 17:43> Respiratory: Respiratory: Reports no additional respiratory complaints and Denies dyspnea <Teena Pluciennik, CLOTH BOIL OFF MACHINE OPERATOR - Last Filed: 01/29/22 17:43> Gastrointestinal: Gastrointestinal: Reports no additional gastrointestinal complaints, Denies nausea and Denies vomiting <Teena Pluciennik, CLOTH BOIL OFF MACHINE OPERATOR - Last Filed: 01/29/22 17:43> Musculoskeletal: Musculoskeletal: Reports no additional musculoskeletal complaints, Denies numbness and Denies tingling <Teena Plucadannik, CLOTH BOIL OFF MACHINE OPERATOR - Last Filed: 01/29/22 17:43> Integumentary/Breasts: Skin/Breast: Reports system reviewed and no additional complaints, except as docu, Denies lesions, Denies rash, Denies sores and Reports other (laceration) <Teena Pluciennik, CLOTH [employer] OFF MACHINE OPERATOR - Last Filed: 01/29/22 17:43> Neurologic: Reports system reviewed and no additional complaints, except as documented, Reports Normal hearing present, Denies dizziness, Denies headache(s), Denies numbness, Denies tingling and Denies weakness <Teena Pluciennik, CLOTH BOIL OFF MACHINE OPERATOR - Last Filed: 01/29/22 17:43> PMFSH Past Medical History Attestation statement: The following information was validated with the patient. <Teena Pluciennik, CLOTH BOIL OFF MACHINE OPERATOR - Last Filed: 12/07/22 17:43> Source: old records reviewed <Teena Stock NP - Last Filed: 01/29/22 17:43> Medical History: Medical History Abdominal pain Acid reflux Acute hyperkalemia Acute on chronic kidney failure Chronic kidney disease, stage 3 Diabetes type 1, uncontrolled Diabetic ketoacidosis 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 Diabetic polyneuropathy associated with type 1 diabetes mellitus Diabetic visual loss, with retinopathy, associated with type 1 diabetes mellitus Essential hypertension Gastritis Hemangioma of liver Hyperglycemia due to type 1 diabetes mellitus Hyperkalemia Hyperlipidemia LDL goal <70 Hypertension associated with diabetes Hypertensive urgency Hypocalcemia Hyponatremia Lactic acidosis due to diabetes mellitus Legally blind Pancreatitis Polyneuropathy Pulmonary edema Respiratory failure Sciatica Type 1 diabetes Vitamin D deficiency <Yuliya Merritt MD - Last Filed: 01/29/22 13:39> Surgical History: Surgical History Hx of appendectomy Hx of circumcision Hx of endoscopy Hx of eye surgery <Yuliya Merritt MD - Last Filed: 01/29/22 13:39> Family History Family History: Family History Father Diabetes mellitus Mother Diabetes mellitus Maternal Grandfather Diabetes mellitus Maternal Grandmother Diabetes mellitus <Yuliya Merritt MD - Last Filed: 01/29/22 13:39> Social History Social History: Social History Household Members: Spouse and Unknown / Unable to assess Household Members Other:: and girlfriend Housing: Apartment Do you presently have visiting nurse or other home services: No Unable to assess alcohol history related to: Unknown Alcohol intake: current Alcohol intake frequency: holidays/special occasions only Alcohol type: hard liquor Patient Tobacco Use Status: Former Tobacco user Second Hand Smoke Exposure: No Substance Use Type: Crack/Cocaine and Opiates Advance Directives: No Advance Directives Information Provided: Yes service: No Current occupational status: disabled <Yuliya Merritt MD - Last Filed: 01/29/22 13:39> Physical Exam Vital Signs: Vital Signs: Last Vital Signs Temp 96.7 F L 01/29/22 13:37 Pulse 104 H 01/29/22 13:37 Resp 18 01/29/22 13:37 BP 152/99 H 01/29/22 13:37 Pulse Ox 96 01/29/22 13:37 O2 Del Method 01/29/22 13:37 BMI result Body Mass Index 25.8 <Yuliya Merritt MD - Last Filed: 01/29/22 13:39> Vital Signs: Last Vital Signs Temp 96.7 F L 01/29/22 13:37 Pulse 104 H 01/29/22 13:37 Resp 18 01/29/22 13:37 BP 152/99 H 01/29/22 13:37 Pulse Ox 96 01/29/22 13:37 O2 Del Method 01/29/22 13:37 BMI result Body Mass Index 25.8 <Teena Stock NP - Last Filed: 01/29/22 17:43> Const: General: cooperative, alert and awake <Teena Stock NP - Last Filed: 01/29/22 17:43> Nutritional Appearance: average body habitus <Teena Stock NP - Last Filed: 01/29/22 17:43> Orientation/consciousness: patient oriented x3 <Teena Stock NP - Last Filed: 01/29/22 17:43> Limitations: no limitations <Teena Stock NP - Last Filed: 01/29/22 17:43> HEENT: Head: Yes normal to inspection and Yes laceration (left eyebrow) <Teena Stock NP - Last Filed: 01/29/22 17:43> Ears: hearing grossly normal bilaterally and external ears normal <Teena Stock NP - Last Filed: 01/29/22 17:43> General nose exam: Normal external nose present <Teena Stock NP - Last Filed: 01/29/22 17:43> Face and sinus: Yes normal facial exam <Teena Stock NP - Last Filed: 01/29/22 17:43> Mouth: Normal oral and palatal mucosa present <Teena Bonnernik, CLOTH [employer]IL OFF MACHINE OPERATOR - Last Filed: 01/29/22 17:43> Eyes: Other: Patient legally blind. <Teenahenna Stock, CLOTH BOIL OFF MACHINE OPERATOR - Last Filed: 01/29/22 17:43> Neck: Neck: Yes normal visual inspection and Yes full ROM <Teenarusty Stock, CLOTH BOIL OFF MACHINE OPERATOR - Last Filed: 01/29/22 17:43> Chest: Chest palpation & inspection: normal inspection of the chest <Teenahenna Stock, CLOTH BOIL OFF MACHINE OPERATOR - Last Filed: 01/29/22 17:43> Resp: Effort & Inspection: normal respiratory effort and not labored <Teenarusty Stock, CLOTH BOIL OFF MACHINE OPERATOR - Last Filed: 01/29/22 17:43> Auscultation: clear to auscultation bilaterally, no crackles, no rhonchi and no wheezes <Teenarusty Stock, CLOTH BOIL OFF MACHINE OPERATOR - Last Filed: 01/29/22 17:43> Cardio: Rate: regular rate <Teenarusty Stock, CLOTH BOIL OFF MACHINE OPERATOR - Last Filed: 01/29/22 17:43> Rhythm: regular rhythm <Teena Montrlel, CLOTH BOIL OFF MACHINE OPERATOR - Last Filed: 01/29/22 17:43> Skin: General skin exam: no rashes or lesions noted <Teena Stock, CLOTH BOIL OFF MACHINE OPERATOR - Last Filed: 01/29/22 17:43> Trauma: laceration (left medial eyebrow) <Teenarusty Stock, CLOTH BOIL OFF MACHINE OPERATOR - Last Filed: 01/29/22 17:43> Neuro: General: patient oriented x3, gait normal and moves all extremities <Teena Stock, CLOTH BOIL OFF MACHINE OPERATOR - Last Filed: 01/29/22 17:43> Cranial nerves: Yes Normal hearing present <Teenarusty Stock, CLOTH BOIL OFF MACHINE OPERATOR - Last Filed: 01/29/22 17:43> Cognition (Neuro): normal cognition <Teena Montrell, CLOTH BOIL OFF MACHINE OPERATOR - Last Filed: 01/29/22 17:43> Gait exam (Neuro): Normal gait present <Teenarusty Stock, CLOTH BOIL OFF MACHINE OPERATOR - Last Filed: 01/29/22 17:43> Motor exam (neuro): 5/5 motor strength present throughout <Teena Pluciennik, CLOTH BOIL OFF MACHINE OPERATOR - Last Filed: 12/07/22 17:43> Extrem: General: Yes normal to inspection, Yes full ROM and Yes capillary refill normal <Teena Stock NP - Last Filed: 01/29/22 17:43> Course Course Course Narrative: rme patient legally blind. Presented today accidentally hit his head against a counter. Suffer a laceration over the left eyebrow. There is no nausea no vomiting no focal weakness. Patient is not on any blood thinners. No difficulty moving his eyeballs. Patient will be moved back to the waiting room pending laceration repair. His tetanus status is up-to-date <Yuliya Merritt MD - Last Filed: 01/29/22 13:39> Medications Administered Discontinued Medications Generic Name Dose Route Start Last Admin Trade Name Freq PRN Reason Stop Dose Admin Lidocaine HCl 2 ml 01/29/22 15:45 01/29/22 15:51 Lidocaine Hcl 1 % Mpf 2 Ml Vial INFILTRATI 01/29/22 15:46 2 ml ONCE ONE Administration <Yuliya Merritt MD - Last Filed: 01/29/22 13:39> Medications Administered Discontinued Medications Generic Name Dose Route Start Last Admin Trade Name Freq PRN Reason Stop Dose Admin Lidocaine HCl 2 ml 01/29/22 15:45 01/29/22 15:51 Lidocaine Hcl 1 % Mpf 2 Ml Vial INFILTRATI 01/29/22 15:46 2 ml ONCE ONE Administration <Teena Stock NP - Last Filed: 01/29/22 17:43> Medical Decision Making Medical Decision Making MDM Narrative: 36 year old male with complex past medical history including DM 1, hypertension, pancreatitis, and legally blind presents to the emergency department today for a laceration on his left eye after hitting the counter while he was standing up. Pt awake and oriented x3, following commands, moving all extremities. 2.5 cm laceration noted on left medial eyebrow. Wound cleansed with betadine, anesthetized, and sutured. Pt tolerated without incident. Recommended to have sutures removed in 5 days with either with primary care provider, which is preferred, or in the emergency department. Educated to return to the emergency department with headache, new dizziness, confusion, or any other symptoms that may be concerning. <Teena Stock NP - Last Filed: 12/07/22 17:43> Procedures Laceration Laceration 1: Site: other (left medial eyebrow) <Teena Stock NP - Last Filed: 01/29/22 17:43> Size (cm): 2.5 <Teena Stock NP - Last Filed: 01/29/22 17:43> Description: linear <Teena Stock NP - Last Filed: 01/29/22 17:43> Depth: simple, single layer <Teena Stock NP - Last Filed: 01/29/22 17:43> Local Anesthetic: lidocaine 1% <Teena Stock NP - Last Filed: 01/29/22 17:43> Amount of anesthesia used (mL): 2 <Teena Stock NP - Last Filed: 01/29/22 17:43> Pre-repair: irrigated extensively <Teena Stock NP - Last Filed: 01/29/22 17:43> Skin layer closed with: nylon <Teena Stock NP - Last Filed: 01/29/22 17:43> Size (cm): 6-0 <Teena Stock NP - Last Filed: 01/29/22 17:43> Technique: simple, interrupted <Teena Stock NP - Last Filed: 01/29/22 17:43> Discharge Plan Discharge Clinical Impression: Suture of skin wound <Yuliya Merritt MD - Last Filed: 01/29/22 13:39> Patient Disposition: Home, Self-Care <Yuliya Merritt MD - Last Filed: 01/29/22 13:39> Additional Instructions: Please present to your primary care provider or return to the emergency department in 5 days to have sutures removed. <Yuliya Merritt MD - Last Filed: 01/29/22 13:39> Prescriptions: No Action cholecalciferol (vitamin D3) 50 mcg (2,000 unit) capsule 50 mcg PO DAILY 30 Days Qty: 30 6RF atorvastatin 80 mg tablet 80 mg PO DAILY Qty: 30 6RF ezetimibe [Zetia] 10 mg tablet 10 mg PO DAILY 90 Days Qty: 90 1RF gabapentin 100 mg capsule 2 cap PO BID metoprolol succinate 50 mg tablet extended release 24 hr 1 tab PO DAILY amlodipine 10 mg Tablet 10 mg PO DAILY Qty: 30 0RF Protocol: Hold for SBP< HOLD for SBP < : 90 hydralazine 50 mg Tablet 75 mg PO TID Qty: 90 0RF Protocol: Hold for SBP< HOLD for SBP < : 90 insulin lispro 100 unit/mL insulin pen 5 unit subcut TIDAC Qty: 15 0RF insulin glargine [Lantus Solostar U-100 Insulin] 100 unit/mL (3 mL) insulin pen 30 unit subcut BEDTIME Qty: 15 0RF omeprazole 40 mg capsule,delayed release(DR/EC) 40 mg PO DAILY@0630 nortriptyline 50 mg capsule 50 mg PO BEDTIME (DME) pen needle, diabetic [BD Ultra-Fine Shannan Pen Needle] 32 gauge x 5/32 needle See Rx Instructions .ROUTE QID Qty: 50 Rx Instructions: As directed valsartan 80 mg tablet 80 mg PO DAILY insulin aspart U-100 100 unit/mL (3 mL) insulin pen 5 unit subcut <Yuliya Merritt MD - Last Filed: 01/29/22 13:39> Referrals: Name,MD Hong [Primary Care Provider] - <Yuliya Merritt MD - Last Filed: 01/29/22 13:39> Interventions: ED Discharge Assessment Last Done: 01/29/22 17:17 <Yuliya Merritt MD - Last Filed: 01/29/22 13:39> Discharge Date/Time: 01/29/22 17:18 <Yuliya Merritt MD - Last Filed: 01/29/22 13:39> Print Language: Nigerien <Yuliya Merritt MD - Last Filed: 01/29/22 13:39>
[2022-01-29] MEDS: Lidocaine HCl 1 % MPF 2 ML VIAL INFILTRATI (15:51)
== END 2022-01-29 17:18 | disposition home or self-care (01) ==
PROVIDERS: Emergency Provider Emergency Medicine Emergency Medical Services; PCP Internal Medicine Geriatric Medicine
DX: S01.112A Laceration without foreign body of left eyelid and periocular area, initial encounter (principal); W01.10XA Fall on same level from slipping, tripping and stumbling with subsequent striking against unspecified object, initial encounter; Y93.9 Activity, unspecified; Y92.000 Kitchen of unspecified non-institutional (private) residence as the place of occurrence of the external cause; Y99.9 Unspecified external cause status
CPT/HCPCS: 12011; 99282; 99284

== ENCOUNTER → 2022-02-18 14:06 | Outpatient (BNVA) | payer MEDICAID, SELFPAY | PROVIDERS: PCP Internal Medicine Geriatric Medicine; Visit Provider Registered Nurse Diabetes Educator | DX: Z46.81 Encounter for fitting and adjustment of insulin pump (principal); E10.65 Type 1 diabetes mellitus with hyperglycemia | CPT/HCPCS: 99211 ==

== ENCOUNTER → 2022-02-26 14:35 | Outpatient (BNVA) | payer MEDICAID, SELFPAY | PROVIDERS: PCP Internal Medicine Geriatric Medicine; Visit Provider Registered Nurse Diabetes Educator | DX: Z46.81 Encounter for fitting and adjustment of insulin pump (principal); E11.3299 Type 2 diabetes mellitus with mild nonproliferative diabetic retinopathy without macular edema, unspecified eye | CPT/HCPCS: 99211 ==

== ENCOUNTER 2022-03-08 03:30 | Inpatient (IN) | payer MEDICAID, SELFPAY ==
[2022-03-08] VITALS (23 sets, daily range): BP systolic 143–210; BP diastolic 80–120; PULSE 105–131; RESP 11–22; TEMP 36.6–37.2; O2SAT 90–98; BMI 25.8
--- NOTE | ~2022-03-08 | CT_ITS ---
EXAMINATION: CT ABDOMEN AND PELVIS WITHOUT CONTRAST CLINICAL INFORMATION: Left-sided abdominal pain COMPARISON: 03/24/2021 TECHNIQUE: Multidetector volumetric imaging was performed from the superior aspect of the liver through the pubic symphysis. Sagittal and coronal reformatted images were obtained on the technologist's workstation. This CT examination was performed using dose optimization techniques as appropriate, variously including the following: *Automated exposure control *Adjustment of mA and/or kV according to patient size (this includes techniques or standardized protocols for targeted exams where dose is matched to indication/reason for exam; i.e. extremities or head) *Use of iterative reconstruction technique DLP: 462 mGy-cm FINDINGS: LUNG BASES: The visualized lung bases are unremarkable. LIVER, GALLBLADDER, AND BILIARY TREE: The liver is normal in size, shape, and attenuation. No focal hepatic lesion or biliary ductal dilatation is present. The gallbladder is unremarkable with no evidence of radiopaque gallstones, gallbladder wall thickening, or obvious pericholecystic inflammatory changes. PANCREAS: Unremarkable. SPLEEN: Unremarkable. ADRENAL GLANDS: Unremarkable. KIDNEYS AND URETERS: The kidneys are normal in size, shape, and attenuation. No hydronephrosis, hydroureter, or calculi seen. No perinephric stranding. BLADDER: Unremarkable. GASTROINTESTINAL TRACT: Distended stomach. No wall thickening. Normal caliber small bowel. No obstruction. No colonic wall thickening or inflammation. ABDOMINAL WALL: No significant hernia is appreciated. LYMPH NODES: Normal. VASCULAR: Unremarkable. PELVIC VISCERA: The prostate and seminal vesicles are unremarkable. OSSEOUS STRUCTURES: Unremarkable. CT/CT abdomen pelvis wo IV con IMPRESSION: No acute finding of the abdomen or pelvis. No inflammatory changes. Fleischner guidelines were followed.
--- NOTE | ~2022-03-08 | CT_ITS ---
EXAMINATION: CT ABDOMEN AND PELVIS WITHOUT CONTRAST CLINICAL INFORMATION: Pain COMPARISON: 03/08/2022 TECHNIQUE: Multidetector volumetric imaging was performed from the superior aspect of the liver through the pubic symphysis. Sagittal and coronal reformatted images were obtained on the technologist's workstation. This CT examination was performed using dose optimization techniques as appropriate, variously including the following: *Automated exposure control *Adjustment of mA and/or kV according to patient size (this includes techniques or standardized protocols for targeted exams where dose is matched to indication/reason for exam; i.e. extremities or head) *Use of iterative reconstruction technique DLP: 508 mGy-cm FINDINGS: LUNG BASES: The visualized lung bases are unremarkable. LIVER, GALLBLADDER, AND BILIARY TREE: The liver is normal in size, shape, and attenuation. Likely focal fatty infiltration along the falciform. No focal hepatic lesion or biliary ductal dilatation is present. The gallbladder is unremarkable with no evidence of radiopaque gallstones, gallbladder wall thickening, or obvious pericholecystic inflammatory changes. PANCREAS: Unremarkable. SPLEEN: Unremarkable. ADRENAL GLANDS: Unremarkable. KIDNEYS AND URETERS: The kidneys are normal in size, shape, and attenuation. No hydronephrosis, hydroureter, or calculi seen. Mild symmetric perinephric stranding. BLADDER: Unremarkable. GASTROINTESTINAL TRACT: Distended stomach without wall thickening. Normal caliber small bowel. No obstruction. No colonic wall thickening or inflammatory change. ABDOMINAL WALL: No significant hernia is appreciated. LYMPH NODES: Mildly prominent retroperitoneal lymph nodes without pathologic enlargement. This is unchanged from the recent prior. VASCULAR: Unremarkable. PELVIC VISCERA: The prostate and seminal vesicles are unremarkable. OSSEOUS STRUCTURES: Unremarkable. CT/CT abdomen pelvis wo IV con IMPRESSION: No acute findings of the abdomen or pelvis. No inflammatory changes. No change from recent prior. Mild symmetric perinephric stranding again noted. This is chronic. Fleischner guidelines were followed.
--- NOTE | 2022-03-08 03:43 | ECG_ITS ---
Test Reason : ABDOMINAL PAIN Blood Pressure : / mmHG Vent. Rate : 123 BPM Atrial Rate : 123 BPM P-R Int : 120 ms QRS Dur : 080 ms QT Int : 324 ms P-R-T Axes : 073 093 052 degrees QTc Int : 463 ms Sinus tachycardia Possible Left atrial enlargement Rightward axis Borderline ECG When compared with ECG of 29-JUL-2021 15:36, No significant changes seen Referred By: Generic ED Physician Electronically Signed By:Joni Peña
[2022-03-08 04:00] LABS: Glucose, Whole Blood 406 mg/dL (60-115)
[2022-03-08 04:08] LABS: Basophils Percent Auto 0.1 % (0-2); Hematocrit 42.8 % (42.0-52.0); Hemoglobin 14.8 g/dl (14.0-18.0); Imm Gran Abs Auto 0.05 X10*3/uL (0.00-0.03); Imm Gran Pct Auto 0.3 % (0.0-0.4); Lymphocytes Absolute Auto 0.8 X10*3/uL (1.2-4.9); Lymphocytes Percent Auto 4.8 % (20-40); Mean Corpuscular HGB Conc 34.6 g/dl (31.0-36.0); Mean Corpuscular Hemoglobin 29.9 pg (27.0-33.0); Mean Corpuscular Volume 86.5 fL (80.0-98.0); Mean Platelet Volume 10.6 fL (9.4-12.4); Monocytes Absolute Auto 0.5 X10*3/uL (0.1-1.2); Monocytes Percent Auto 3.4 % (2-11); Neutrophils Absolute Auto 14.4 x10*3/uL (2.0-8.3); Neutrophils Percent Auto 91.4 % (45-73); Platelet Count 219 X10*3/uL (160-400); Red Blood Count 4.95 X10*6/uL (4.60-5.80); Red Cell Distribution Width 11.9 % (11.0-16.0); SCAN SMEAR FLAG 1; White Blood Count 15.7 X10*3/uL (4.8-10.8)
[2022-03-08 04:09] LABS: MANUAL DIFF FLAG SCAN
[2022-03-08 04:13] LABS: Venous Blood Gas Refer to POC result
[2022-03-08 04:14] LABS: VBG Base Excess 0.6 mmol/L; VBG HCO3 26 mmol/L (22-26); VBG pCO2 43 mmHg; VBG pH 7.37 (7.32-7.43); VBG pO2 50 mmHg
[2022-03-08 04:17] LABS: Acetone, serum QL Small (Negative)
[2022-03-08 04:26] LABS: SLIDE REVIEW VERIFIED
[2022-03-08 04:28] LABS: Alanine Aminotransferase 23 U/L (0-40); Albumin Level 4.3 g/dL (3.5-5.0); Alkaline Phosphatase 103 U/L (39-117); Anion Gap 24 (12-20); Aspartate Amino Transferase 22 U/L (5-37); Bilirubin Direct 0.2 mg/dL (0.0-0.5); Bilirubin Total 0.6 mg/dL (0.0-1.0); Blood Urea Nitrogen 36 mg/dL (9-16); Calcium 9.5 mg/dL (8.4-10.2); Carbon Dioxide 22 mmol/L (22-29); Chloride 97 mmol/L (96-108); Creatinine Clr Calc Pharmacy 24.8; Estimated Glomerular Filt Rate 17; Glucose Random 434 mg/dL (60-115); Potassium 5.1 mmol/L (3.3-5.1); Sodium 138 mmol/L (135-145); Total Protein 7.9 g/dL (6.5-8.0)
[2022-03-08 04:29] LABS: Troponin-I High Sensitivity 7.1 ng/L (<3.5-35.0)
[2022-03-08 04:45] LABS: Influenza A PCR NEGATIVE (Negative); Influenza B PCR NEGATIVE (Negative); Resp Syncy Virus RNA Qual PCR NEGATIVE (Negative); SARS COV2 PCR INHOUSE NEGATIVE (Negative)
--- NOTE | 2022-03-08 05:00 | ED_ITS ---
HPI - Nausea/Vomiting/Diarrhea General Chief complaint: Nausea/Vomiting/Diarrhea Stated complaint: abd pain, vomiting Time Seen by Provider: 03/08/22 03:58 History of Present Illness HPI Narrative: Patient is 36 years old with a history appendectomy history of diabetes history of hypertension history of polysubstance abuse history of chronic renal insufficiency presented today with having abdominal pain diffuse worse on the left side associated with nausea vomiting unable to keep down any medication. No coughing congestion upper respiratory symptoms. Patient has a very long history of diabetes which caused him to lose his vision as well. Patient has been a diabetic since childhood Related Data Home Medications Medication Instructions Recorded Confirmed nortriptyline 50 mg capsule 50 mg PO BEDTIME 01/04/20 07/29/21 omeprazole 40 mg capsule,delayed 40 mg PO DAILY@0630 01/04/20 07/29/21 release pen needle, diabetic 32 gauge x #50 ea 07/12/21 07/12/21 (BD Ultra-Fine Shannan Pen Needle) valsartan 80 mg tablet 80 mg PO DAILY 07/12/21 07/29/21 gabapentin 100 mg capsule 2 cap PO BID 07/29/21 07/29/21 metoprolol succinate 50 mg 1 tab PO DAILY 07/29/21 07/29/21 tablet,extended release 24 hr insulin aspart U-100 100 unit/mL 5 unit subcut 12/27/21 (3 mL) subcutaneous pen Previous Rx's Medication Instructions Recorded cholecalciferol (vitamin D3) 50 50 mcg PO DAILY 30 days #30 caps 04/05/20 mcg (2,000 unit) capsule atorvastatin 80 mg tablet 80 mg PO DAILY #30 tabs 12/12/20 ezetimibe 10 mg tablet (Zetia) 10 mg PO DAILY 90 days #90 tabs 07/05/21 amlodipine 10 mg tablet 10 mg PO DAILY #30 tabs 08/09/21 hydralazine 50 mg tablet 75 mg PO TID #90 tabs 08/09/21 insulin glargine 100 unit/mL (3 30 unit (0.3 mL) subcut BEDTIME 08/09/21 mL) subcutaneous pen (Lantus #15 mL Solostar U-100 Insulin) insulin lispro 100 unit/mL 5 unit (0.05 mL) subcut TIDAC #15 08/09/21 subcutaneous pen mL insulin pump cartridge,automated #1 ea 02/19/22 dose,BT with controller subcutaneous (Omnipod 5 G6 Intro Kit (Gen 5) subcutaneous cartridge with controller) insulin pump cartridge,automated #1 ea 02/19/22 dose,BT with controller subcutaneous (Omnipod 5 G6 Intro Kit (Gen 5) subcutaneous cartridge with controller) Allergies Allergy/AdvReac Type Severity Reaction Status Date / Time gluten Allergy Gastrointestinal Verified 12/27/21 09:56 Upset losartan Allergy Gastrointestinal Verified 01/29/22 13:40 Upset Review of Systems Review of Systems: Positive abdominal pain Positive nausea vomiting Yes all other systems are reviewed and are negative FOR[facility]LY [facility] Past Medical History Attestation statement: The following information was validated with the patient. Medical History Abdominal pain Acid reflux Acute hyperkalemia Acute on chronic kidney failure Chronic kidney disease, stage 3 Diabetes type 1, uncontrolled Diabetic ketoacidosis 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 Diabetic polyneuropathy associated with type 1 diabetes mellitus Diabetic visual loss, with retinopathy, associated with type 1 diabetes mellitus Essential hypertension Gastritis Hemangioma of liver Hyperglycemia due to type 1 diabetes mellitus Hyperkalemia Hyperlipidemia LDL goal <70 Hypertension associated with diabetes Hypertensive urgency Hypocalcemia Hyponatremia Lactic acidosis due to diabetes mellitus Legally blind Pancreatitis Polyneuropathy Pulmonary edema Respiratory failure Sciatica Type 1 diabetes Vitamin D deficiency Surgical History Hx of appendectomy Hx of circumcision Hx of endoscopy Hx of eye surgery Family History Family History Father Diabetes mellitus Mother Diabetes mellitus Maternal Grandfather Diabetes mellitus Maternal Grandmother Diabetes mellitus Social History Social History Household Members: Spouse and Unknown / Unable to assess Household Members Other:: and girlfriend Housing: Apartment Do you presently have visiting nurse or other home services: No Unable to assess alcohol history related to: Unknown Alcohol intake: current Alcohol intake frequency: holidays/special occasions only Alcohol type: hard liquor Patient Tobacco Use Status: Former Tobacco user Second Hand Smoke Exposure: No Substance Use Type: Crack/Cocaine and Opiates Advance Directives: Yes Advance Directives on File: Yes Advance Directives Date on File: 04/13/20 service: No Current occupational status: disabled Physical Exam Vital Signs: Vital Signs: Last Vital Signs Temp 98.2 F 03/08/22 06:25 Pulse 127 H 03/08/22 06:25 Resp 18 03/08/22 06:25 BP 173/100 H 03/08/22 06:25 Pulse Ox 95 03/08/22 05:45 O2 Del Method 03/08/22 05:45 O2 Flow Rate 1 03/08/22 05:32 BMI result Body Mass Index 25.8 Appearance: Alert. Oriented X3. Complaining of abdominal pain on the left side Eyes: Pupils equal, round and reactive to light. ENT: Pharynx normal. Neck: Normal inspection. Neck supple. No lymph nodes noted. No crepitus CVS: Normal heart rate and rhythm. Pulses normal. Normal S1 and S2 Respiratory: No respiratory distress. Breath sounds normal. No Wheezing. No rales Abdomen: Soft mild tenderness in the left upper and lower abdomen. No rigidity. No distention. good BS x4 Skin: Skin warm and dry. Normal skin color. Normal skin turgor. Extremities: No lower extremity edema. Neurovascular intact to all extremities. No Lacerations. No Rash Neuro: Oriented X 3. No motor deficit. No sensory deficit. Moving all extermities. No slurred speech Medications Administered Generic Name Dose Route Start Last Admin Trade Name Freq PRN Reason Stop Dose Admin Sodium Chloride 1,000 mls @ 999 mls/hr 03/08/22 06:15 03/08/22 06:31 Ns IV 03/08/22 07:15 999 mls/hr .Q1H1M OKSANA Administration Discontinued Medications Generic Name Dose Route Start Last Admin Trade Name Freq PRN Reason Stop Dose Admin Amlodipine Besylate 10 mg 03/08/22 06:15 03/08/22 06:28 Amlodipine Besylate 10 Mg Tablet PO 03/08/22 06:16 10 mg ONCE ONE Administration Protocol Hydromorphone HCl 1 mg 03/08/22 04:53 03/08/22 05:12 Hydromorphone Hcl 1 Mg/Ml Syringe IVPUSH 03/08/22 04:54 1 mg ONCE ONE Administration Protocol Sodium Chloride 1,000 mls @ 999 mls/hr 03/08/22 05:00 03/08/22 06:31 Ns IV 03/08/22 06:00 Infused .Q1H1M OKSANA Infusion Insulin Human Regular 8 unit 03/08/22 04:55 03/08/22 05:09 Insulin Regular, Human 100 Unit/Ml 3 Ml Vial 0.1 unit/kg (8 unit) 03/08/22 04:56 8 unit IVPUSH Administration ONCE ONE Labetalol HCl 20 mg 03/08/22 04:58 03/08/22 05:23 Labetalol Hcl 100 Mg/20 Ml Vial IVPUSH 03/08/22 04:59 20 mg ONCE ONE Administration Ondansetron HCl 4 mg 03/08/22 04:55 03/08/22 05:08 Ondansetron Hcl 4 Mg/2 Ml Vial IVPUSH 03/08/22 04:56 4 mg ONCE ONE Administration Medical Decision Making Differential Diagnosis Patient has abdominal pain nausea vomiting with previous history of abdominal surgery. Differential includes diabetic gastroparesis, diabetic ketoacidosis, obstruction, diverticulitis, kidney stone. Will get CT scan of the abdomen. Patient's labs showed an elevated sugar. However luckily patient's anion gap is normal bicarb is normal no evidence for DKA. Patient's pH is normal on a venous blood gas pain medication given. Will give nausea medication along with IV fluids. Insulin given for the elevated sugar. Will monitor very carefully. A dose of labetalol was given as patient had not had a chance to take his medications. Currently in stable condition. Patient's flu RSV and COVID are all negative. Patient's blood pressure came down. Nausea improved. Now is tolerating fluids. Patient given his normal dose of amlodipine 10 mg. His electrolytes were repeated. Anion gap has resolved. Clinically well-appearing. CT scan of the abdomen pelvis negative for any acute evidence of abscess perforation obstruction. No acute findings. Patient repeat exam is soft nontender. He is aware of his high blood pressure will take medications. He wants to go home. Will give Zofran for nausea. Will have patient closely follow. A joint decision was made to discharge patient home. Patient's creatinine is elevated this is baseline. He has chronic renal insufficiency. Admission/Observation Consideration of admission/observation: Escalation of care including admissio n/observation considered Considered admission given patient's history of Lab Data MDM Lab Attestation statement: I reviewed the patient's lab results. 03/08/22 04:02 03/08/22 04:02 Labs: Lab Results 03/08/22 03/08/22 03/08/22 Range/Units 03:56 04:02 04:02 WBC 15.7 H (4.8-10.8) X10*3/uL RBC 4.95 (4.60-5.80) X10*6/uL Hgb 14.8 (14.0-18.0) g/dl Hct 42.8 (42.0-52.0) % MCV 86.5 (80.0-98.0) fL MCH 29.9 (27.0-33.0) pg MCHC 34.6 (31.0-36.0) g/dl RDW 11.9 (11.0-16.0) % Plt Count 219 (160-400) X10*3/uL MPV 10.6 (9.4-12.4) fL Immature Gran % (Auto) 0.3 (0.0-0.4) % Neut % (Auto) 91.4 H (45-73) % Lymph % (Auto) 4.8 L (20-40) % Carlisle % (Auto) 3.4 (2-11) % Eos % (Auto) 0.0 (0-4) % Baso % (Auto) 0.1 (0-2) % Lymph # (Auto) 0.8 L (1.2-4.9) X10*3/uL [place] # (Auto) 0.5 (0.1-1.2) X10*3/uL Eos # (Auto) 0.0 (0.0-0.4) X10*3/uL Baso # (Auto) 0.0 (0.0-0.2) X10*3/uL Abs Immat Gran (auto) 0.05 H (0.00-0.03) X10*3/uL Absolute Neuts (auto) 14.4 H (2.0-8.3) x10*3/uL Absolute Nucleated RBC 0.000 (0.0-0.012) X10*3/uL Nucleated RBC % (auto) 0.0 (0.0-0.2) /100WBC Smear Tech's Comments VERIFIED VBG pH (7.32-7.43) VBG pCO2 mmHg VBG pO2 mmHg VBG HCO3 (22-26) mmol/L VBG O2 Saturation % VBG Base Excess mmol/L Sodium (135-145) mmol/L Potassium (3.3-5.1) mmol/L Chloride (96-108) mmol/L Carbon Dioxide (22-29) mmol/L Anion Gap (12-20) BUN (9-16) mg/dL Creatinine (0.5-1.4) mg/dL Estim Creat Clear Calc Estimated GFR POC Glucose 406 H* (60-115) mg/dL Random Glucose (60-115) mg/dL Calcium (8.4-10.2) mg/dL Total Bilirubin (0.0-1.0) mg/dL Direct Bilirubin (0.0-0.5) mg/dL AST (5-37) U/L ALT (0-40) U/L Alkaline Phosphatase (39-117) U/L Troponin I High Sens (<3.5-35.0) ng/L Total Protein (6.5-8.0) g/dL Albumin (3.5-5.0) g/dL Acetone, Qual (Negative) Influenza Type A (PCR) NEGATIVE (Negative) Influenza Type B (PCR) NEGATIVE (Negative) RSV RNA Qual (PCR) NEGATIVE (Negative) SARS-CoV-2 RNA (RT-PCR) NEGATIVE (Negative) 03/08/22 03/08/22 03/08/22 Range/Units 04:02 04:02 04:02 WBC (4.8-10.8) X10*3/uL RBC (4.60-5.80) X10*6/uL Hgb (14.0-18.0) g/dl Hct (42.0-52.0) % MCV (80.0-98.0) fL MCH (27.0-33.0) pg MCHC (31.0-36.0) g/dl RDW (11.0-16.0) % Plt Count (160-400) X10*3/uL MPV (9.4-12.4) fL Immature Gran % (Auto) (0.0-0.4) % Neut % (Auto) (45-73) % Lymph % (Auto) (20-40) % Carlisle % (Auto) (2-11) % Eos % (Auto) (0-4) % Baso % (Auto) (0-2) % Lymph # (Auto) (1.2-4.9) X10*3/uL [place] # (Auto) (0.1-1.2) X10*3/uL Eos # (Auto) (0.0-0.4) X10*3/uL Baso # (Auto) (0.0-0.2) X10*3/uL Abs Immat Gran (auto) (0.00-0.03) X10*3/uL Absolute Neuts (auto) (2.0-8.3) x10*3/uL Absolute Nucleated RBC (0.0-0.012) X10*3/uL Nucleated RBC % (auto) (0.0-0.2) /100WBC Smear Tech's Comments VBG pH (7.32-7.43) VBG pCO2 mmHg VBG pO2 mmHg VBG HCO3 (22-26) mmol/L VBG O2 Saturation % VBG Base Excess mmol/L Sodium 138 (135-145) mmol/L Potassium 5.1 (3.3-5.1) mmol/L Chloride 97 (96-108) mmol/L Carbon Dioxide 22 (22-29) mmol/L Anion Gap 24 H (12-20) BUN 36 H (9-16) mg/dL Creatinine 3.94 H (0.5-1.4) mg/dL Estim Creat Clear Calc 24.8 Estimated GFR 17 POC Glucose (60-115) mg/dL Random Glucose 434 H* (60-115) mg/dL Calcium 9.5 (8.4-10.2) mg/dL Total Bilirubin 0.6 (0.0-1.0) mg/dL Direct Bilirubin 0.2 (0.0-0.5) mg/dL AST 22 (5-37) U/L ALT 23 (0-40) U/L Alkaline Phosphatase 103 (39-117) U/L Troponin I High Sens 7.1 (<3.5-35.0) ng/L Total Protein 7.9 (6.5-8.0) g/dL Albumin 4.3 (3.5-5.0) g/dL Acetone, Qual Small H (Negative) Influenza Type A (PCR) (Negative) Influenza Type B (PCR) (Negative) RSV RNA Qual (PCR) (Negative) SARS-CoV-2 RNA (RT-PCR) (Negative) 03/08/22 03/08/22 03/08/22 Range/Units 04:07 06:01 06:35 WBC (4.8-10.8) X10*3/uL RBC (4.60-5.80) X10*6/uL Hgb (14.0-18.0) g/dl Hct (42.0-52.0) % MCV (80.0-98.0) fL MCH (27.0-33.0) pg MCHC (31.0-36.0) g/dl RDW (11.0-16.0) % Plt Count (160-400) X10*3/uL MPV (9.4-12.4) fL Immature Gran % (Auto) (0.0-0.4) % Neut % (Auto) (45-73) % Lymph % (Auto) (20-40) % Carlisle % (Auto) (2-11) % Eos % (Auto) (0-4) % Baso % (Auto) (0-2) % Lymph # (Auto) (1.2-4.9) X10*3/uL [place] # (Auto) (0.1-1.2) X10*3/uL Eos # (Auto) (0.0-0.4) X10*3/uL Baso # (Auto) (0.0-0.2) X10*3/uL Abs Immat Gran (auto) (0.00-0.03) X10*3/uL Absolute Neuts (auto) (2.0-8.3) x10*3/uL Absolute Nucleated RBC (0.0-0.012) X10*3/uL Nucleated RBC % (auto) (0.0-0.2) /100WBC Smear Tech's Comments VBG pH 7.37 (7.32-7.43) VBG pCO2 43 mmHg VBG pO2 50 mmHg VBG HCO3 26 (22-26) mmol/L VBG O2 Saturation 80.0 % VBG Base Excess 0.6 mmol/L Sodium 140 (135-145) mmol/L Potassium 4.4 (3.3-5.1) mmol/L Chloride 103 (96-108) mmol/L Carbon Dioxide 21 L (22-29) mmol/L Anion Gap 20 (12-20) BUN 35 H (9-16) mg/dL Creatinine 3.56 H (0.5-1.4) mg/dL Estim Creat Clear Calc 27.4 Estimated GFR 19 POC Glucose 301 H (60-115) mg/dL Random Glucose 285 H (60-115) mg/dL Calcium 8.8 D (8.4-10.2) mg/dL Total Bilirubin (0.0-1.0) mg/dL Direct Bilirubin (0.0-0.5) mg/dL AST (5-37) U/L ALT (0-40) U/L Alkaline Phosphatase (39-117) U/L Troponin I High Sens (<3.5-35.0) ng/L Total Protein (6.5-8.0) g/dL Albumin (3.5-5.0) g/dL Acetone, Qual Small H (Negative) Influenza Type A (PCR) (Negative) Influenza Type B (PCR) (Negative) RSV RNA Qual (PCR) (Negative) SARS-CoV-2 RNA (RT-PCR) (Negative) Independent Interpretation I performed an independent interpretation of an: EKG Interpretation: EKG showed a sinus pattern heart rate is 128 CT QRS QT within normal limits is no acute ST segment elevation noted. Independent Historian Clinical information obtained from an independent historian. History obtained from or confirmed by: Spouse Chronic Conditions Patient?s care impacted by: Diabetes and Hypertension Social Determinants Patient?s care significantly limited by Social Determinants of Health including: Alcoholism and drug addiction in family Critical Care Time Critical Care Time Critical Care Time: Yes Total Critical Care Time: 40 Attestation: I have personally provided 40 minutes of critical care time exclusive of time spent on separately billable procedures. Time includes review of lab data, radiology results, discussion with consultants, and monitoring for potential decompensation. Interventions were performed as documented above Discharge Plan Discharge Clinical Impression: Diabetes type 1, uncontrolled, Acute on chronic kidney failure, Dehydration, Chronic renal disease Patient Disposition: Home, Self-Care Instructions: Chronic Kidney Disease (ED), Dehydration (ED), Diabetes Type 1: Management (ED), Diabetic Gastroparesis (DC), Diabetic Hyperglycemia (ED), Hypertension (ED) Additional Instructions: Please take your blood pressure medication. Please closely take your insulin. Please follow a strict diabetic diet. Your sugar was extremely high today. Continuing doing this will hurt her kidney. You could from your diabetes Prescriptions: No Action cholecalciferol (vitamin D3) 50 mcg (2,000 unit) capsule 50 mcg PO DAILY 30 Days Qty: 30 6RF atorvastatin 80 mg tablet 80 mg PO DAILY Qty: 30 6RF ezetimibe [Zetia] 10 mg tablet 10 mg PO DAILY 90 Days Qty: 90 1RF (DME) Omnipod 5 G6 Intro Kit (Gen 5) Cartridge See Rx Instructions .Route Qty: 1 4RF Rx Instructions: As directed (DME) Omnipod 5 G6 Intro Kit (Gen 5) Cartridge See Rx Instructions .Route Qty: 1 4RF Rx Instructions: As directed gabapentin 100 mg capsule 2 cap PO BID metoprolol succinate 50 mg tablet extended release 24 hr 1 tab PO DAILY amlodipine 10 mg Tablet 10 mg PO DAILY Qty: 30 0RF Protocol: Hold for SBP< HOLD for SBP < : 90 hydralazine 50 mg Tablet 75 mg PO TID Qty: 90 0RF Protocol: Hold for SBP< HOLD for SBP < : 90 insulin lispro 100 unit/mL insulin pen 5 unit subcut TIDAC Qty: 15 0RF insulin glargine [Lantus Solostar U-100 Insulin] 100 unit/mL (3 mL) insulin pen 30 unit subcut BEDTIME Qty: 15 0RF omeprazole 40 mg capsule,delayed release(DR/EC) 40 mg PO DAILY@0630 nortriptyline 50 mg capsule 50 mg PO BEDTIME (DME) pen needle, diabetic [BD Ultra-Fine Shannan Pen Needle] 32 gauge x 5/32 needle See Rx Instructions .ROUTE QID Qty: 50 Rx Instructions: As directed valsartan 80 mg tablet 80 mg PO DAILY insulin aspart U-100 100 unit/mL (3 mL) insulin pen 5 unit subcut Referrals: [facility] [Primary Care Provider] - Print Language: Maori
[2022-03-08] MEDS: ondansetron HCL 4 MG/2 ML VIAL IVPUSH (05:08)
[2022-03-08] MEDS: Insulin Regular, Human 100 UNIT/ML 3 ML VIAL 8 UNIT IVPUSH (05:09)
[2022-03-08] MEDS: 0.9 % Sodium Chloride 1,000 ML 999 ML IV ×3 (05:12→13:29)
[2022-03-08] MEDS: HYDROmorphone HCl 1 MG/ML SYRINGE IVPUSH ×2 (05:12→12:38)
[2022-03-08] MEDS: Labetalol HCL 100 MG/20 ML VIAL 20 MG IVPUSH (05:23)
--- NOTE | 2022-03-08 05:33 | PC.NURSE ---
Pt received ordered meds after arriving from having CT scan done. Pt destated to 90% room air after receiving Dilaudid supplemental oxygen via nasal cannula was applied to pt; 97% on 1 L post intervention. Pt resting comfortably no s/sx f respiratory distress noted.
[2022-03-08 06:06] LABS: Glucose, Whole Blood 301 mg/dL (60-115)
[2022-03-08] MEDS: amLODIPine Besylate 10 MG TABLET PO ×2 (06:28→11:10)
[2022-03-08 06:49] LABS: Acetone, serum QL Small (Negative)
[2022-03-08 06:55] LABS: Anion Gap 20 (12-20); Blood Urea Nitrogen 35 mg/dL (9-16); Calcium 8.8 mg/dL (8.4-10.2); Carbon Dioxide 21 mmol/L (22-29); Chloride 103 mmol/L (96-108); Creatinine Clr Calc Pharmacy 27.4; Estimated Glomerular Filt Rate 19; Glucose Random 285 mg/dL (60-115); Potassium 4.4 mmol/L (3.3-5.1); Sodium 140 mmol/L (135-145)
[2022-03-08 07:25] LABS: Glucose, Whole Blood 255 mg/dL (60-115)
[2022-03-08] MEDS: Metoprolol Succinate ER 25 MG TAB.ER.24H 75 MG PO (07:39)
[2022-03-08] MEDS: Valsartan 80 MG TABLET PO (07:40)
--- NOTE | 2022-03-08 07:51 | PC.NURSE ---
pt A+O x4, HE DENIES PAIN. PT'S B/P HIGH 180s over 110. PT GIVEN B/P MEDS DOCUMENTED. PT WILL BE MONITORED IN THE ED FOR 45 MINUTES TO AN HOUR BEFORE DISCHARGE. PT AWARE OF PLAN. PT'S MAIL FORWARDING SYSTEM MARKUP CLERK IS AT HIS BEDSIDE. DIABETIC MEAL ORDERED.
--- NOTE | 2022-03-08 08:51 | PC.NURSE ---
PT B/P 210/111. HR 117. DR. [place]. PT GIVEN PO B/P MEDS ABOUT AN HOUR AGO. HE DENIES HEADACHE/CP/DIZZINESS/BLURRY VISION. NO COMPLAINTS. HIS MAINTENANCE DEPARTMENT MANAGER IS AT HIS BEDSIDE. WILL CONTINUE TO OBSERVE.
--- NOTE | 2022-03-08 12:56 | PC.NURSE ---
PT REPORTS ACHY 10/10 LLQ PAIN THAT STARTED SUDDENLY. HE DENIES NAUSEA/NO VOMITING. PT ABLE TO TOLERATE PO FLUIDS. HE REPORTS LAST BM WAS 03/07/22. ACTIVE BOWEL SOUNDS X4. MEDS GIVEN DOCUMENTED.
[2022-03-08 13:29] LABS: Glucose, Whole Blood 314 mg/dL (60-115)
--- NOTE | 2022-03-08 14:46 | P.HPHOSP_ITS ---
History of Present Illness Date of Service: 03/08/22 Chief Complaint: Abd pain, high Glu, High BP A 36 years old male with PMH of diabetes, blindness, hypertension, CKD stage4 who presents to the hospital complaining of 1 day of abdominal pain. Reports that the pain started yesterday on the left side of his abdomen associated with nausea and vomiting multiple occasions as he was unable to keep down his medications of tolerate any food. Denies any fever, chills, chest pain, palpitation, difficulty breathing, coughing, change in bowel habit or urinary symptoms. In the emergency he was found to have DKA with elevated glucose requiring IV insulin and IV fluid hand to close the anion gap. A seton was positive. Noted to have significantly elevated blood pressure readings of 200/100. Responded to IV and oral medications. CT scan of the abdomen was negative for any acute findings. Will be admitted for further evaluation and treatment. Review of Systems Review of Systems: No fever, chills but has generalized weakness No chest pain, palpitation No shortness of breath or coughing Reporting epigastric and left-sided pain associated with nausea and vomiting No urinary symptoms No any rash or wounds FOR[facility]LY [facility], [facility] Medical History (Updated 03/08/22 @ 15:05 by Neal Godoy MD) Abdominal pain Acid reflux Acute hyperkalemia Acute on chronic kidney failure Chronic kidney disease, stage 3 Diabetes type 1, uncontrolled Diabetic ketoacidosis 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 Diabetic polyneuropathy associated with type 1 diabetes mellitus Diabetic visual loss, with retinopathy, associated with type 1 diabetes mellitus Essential hypertension Gastritis Hemangioma of liver Hyperglycemia due to type 1 diabetes mellitus Hyperkalemia Hyperlipidemia LDL goal <70 Hypertension associated with diabetes Hypertensive urgency Hypocalcemia Hyponatremia Lactic acidosis due to diabetes mellitus Legally blind Pancreatitis Polyneuropathy Pulmonary edema Respiratory failure Sciatica Type 1 diabetes Vitamin D deficiency Family History Father Diabetes mellitus Mother Diabetes mellitus Maternal Grandfather Diabetes mellitus Maternal Grandmother Diabetes mellitus Surgical History Hx of appendectomy Hx of circumcision Hx of endoscopy Hx of eye surgery Social History Household Members: Spouse and Unknown / Unable to assess Household Members Other:: and girlfriend Housing: Apartment Do you presently have visiting nurse or other home services: No Unable to assess alcohol history related to: Unknown Alcohol intake: current Alcohol intake frequency: holidays/special occasions only Alcohol type: hard liquor Patient Tobacco Use Status: Former Tobacco user Second Hand Smoke Exposure: No Use of substances other than those prescribed or required for medical reasons: No Substance Use Type: Crack/Cocaine and Opiates Advance Directives: Yes Advance Directives on File: Yes Advance Directives Date on File: 04/13/20 service: No Current occupational status: disabled Meds Allergies Allergy/AdvReac Type Severity Reaction Status Date / Time gluten Allergy Gastrointestinal Verified 12/27/21 09:56 Upset losartan Allergy Gastrointestinal Verified 01/29/22 13:40 Upset Active Medications: Current Medications Acetaminophen (Acetaminophen 325 Mg Tablet) 650 mg PO Q6H PRN PRN Reason: Pain, Mild (Pain Scale 1-3) Hydralazine HCl (Hydralazine Hcl 25 Mg Tablet) 75 mg PO TID [facility]; Protocol Hydromorphone HCl (Hydromorphone Hcl 0.5 Mg/0.5 Ml Syringe) 0.5 mg IVPUSH Q4H PRN; Protocol PRN Reason: Pain, Severe (Pain Scale 7-10) Insulin Glargine (Insulin Glargine,Hum.Rec.Anlog 100 Unit/Ml 10 Ml Vial) 10 unit SUBCUT ONCE ONE Stop: 03/08/22 14:37 Insulin Human Lispro (Insulin Lispro 100 Unit/Ml 3 Ml Vial) [facility]; Protocol Labetalol HCl (Labetalol Hcl 100 Mg/20 Ml Vial) 10 mg IVPUSH ONCE PRN PRN Reason: SBP>180 Ondansetron HCl (Ondansetron Hcl 4 Mg/2 Ml Vial) 4 mg IVPUSH Q8H PRN PRN Reason: Nausea and Vomiting Pharmacy Consult (Consult Rx Perform Med Rec) 1 each MISCELLANE ONCE PRN PRN Reason: Consult order Sodium Chloride (0.9 % Sodium Chloride Flush 3 Ml Syringe) 3 ml IVFLUSH [facility] Home Medications Medication Instructions Recorded Confirmed Last Taken Type nortriptyline 50 mg capsule 50 mg PO BEDTIME 01/04/20 07/29/21 06/08/20 History omeprazole 40 mg capsule,delayed 40 mg PO DAILY@0630 01/04/20 07/29/21 06/08/20 History release pen needle, diabetic 32 gauge x #50 ea 07/12/21 07/12/21 Unknown History (BD Ultra-Fine Shannan Pen Needle) gabapentin 100 mg capsule 2 cap PO BID 07/29/21 07/29/21 Unknown History metoprolol succinate 50 mg 1 tab PO DAILY 07/29/21 07/29/21 Unknown History tablet,extended release 24 hr insulin aspart U-100 100 unit/mL 5 unit subcut 12/27/21 Unknown History (3 mL) subcutaneous pen insulin glargine 100 unit/mL (3 25 unit subcut BEDTIME 03/08/22 03/08/22 03/07/22 History mL) subcutaneous pen (Lantus Solostar U-100 Insulin) Physical Exam Vital Signs and Narrative: Vital Signs: Last Vital Signs Temp 98.8 F 03/08/22 13:18 Pulse 118 H 03/08/22 14:04 Resp 16 03/08/22 14:04 BP 156/93 H 03/08/22 14:04 Pulse Ox 95 03/08/22 13:18 O2 Del Method 03/08/22 13:18 O2 Flow Rate 1 03/08/22 05:32 BMI result Body Mass Index 25.8 Const: Other: Constitutional : Awake for with stimulation, looks comfortable, blind Neck : Normal inspection, Supple Cardiovascular : RRR, no JVP, no lower extremity edema Respiratory : good bilateral air entry, no crackles, wheezes or rhonchi Gastrointestinal: soft, lax, Normal bowel sounds, no significant tenderness noted or surgical signs Skin : Warm, Dry Neurological : Alert & oriented x3, No focal deficit Results Labs 03/08/22 04:02 03/08/22 06:35 Labs: Laboratory Results - last 24 hr 03/08/22 03/08/22 03/08/22 03:56 04:02 04:02 MCV 86.5 MCH 29.9 MCHC 34.6 RDW 11.9 Plt Count 219 MPV 10.6 Immature Gran % (Auto) 0.3 Neut % (Auto) 91.4 H Lymph % (Auto) 4.8 L [place] % (Auto) 3.4 Eos % (Auto) 0.0 Baso % (Auto) 0.1 Lymph # (Auto) 0.8 L [place] # (Auto) 0.5 Eos # (Auto) 0.0 Baso # (Auto) 0.0 Abs Immat Gran (auto) 0.05 H Absolute Neuts (auto) 14.4 H Absolute Nucleated RBC 0.000 Nucleated RBC % (auto) 0.0 Smear Tech's Comments VERIFIED VBG pH VBG pCO2 VBG pO2 VBG HCO3 VBG O2 Saturation VBG Base Excess Anion Gap Estim Creat Clear Calc Estimated GFR POC Glucose 406 H* Random Glucose Calcium Total Bilirubin Direct Bilirubin AST ALT Alkaline Phosphatase Troponin I High Sens Total Protein Albumin Acetone, Qual Influenza Type A (PCR) NEGATIVE Influenza Type B (PCR) NEGATIVE RSV RNA Qual (PCR) NEGATIVE SARS-CoV-2 RNA (RT-PCR) NEGATIVE 03/08/22 03/08/22 03/08/22 04:02 04:02 04:02 MCV MCH MCHC RDW Plt Count MPV Immature Gran % (Auto) Neut % (Auto) Lymph % (Auto) [place] % (Auto) Eos % (Auto) Baso % (Auto) Lymph # (Auto) [place] # (Auto) Eos # (Auto) Baso # (Auto) Abs Immat Gran (auto) Absolute Neuts (auto) Absolute Nucleated RBC Nucleated RBC % (auto) Smear Tech's Comments VBG pH VBG pCO2 VBG pO2 VBG HCO3 VBG O2 Saturation VBG Base Excess Anion Gap 24 H Estim Creat Clear Calc 24.8 Estimated GFR 17 POC Glucose Random Glucose 434 H* Calcium 9.5 Total Bilirubin 0.6 Direct Bilirubin 0.2 AST 22 ALT 23 Alkaline Phosphatase 103 Troponin I High Sens 7.1 Total Protein 7.9 Albumin 4.3 Acetone, Qual Small H Influenza Type A (PCR) Influenza Type B (PCR) RSV RNA Qual (PCR) SARS-CoV-2 RNA (RT-PCR) 03/08/22 03/08/22 03/08/22 04:07 06:01 06:35 MCV MCH MCHC RDW Plt Count MPV Immature Gran % (Auto) Neut % (Auto) Lymph % (Auto) [place] % (Auto) Eos % (Auto) Baso % (Auto) Lymph # (Auto) [place] # (Auto) Eos # (Auto) Baso # (Auto) Abs Immat Gran (auto) Absolute Neuts (auto) Absolute Nucleated RBC Nucleated RBC % (auto) Smear Tech's Comments VBG pH 7.37 VBG pCO2 43 VBG pO2 50 VBG HCO3 26 VBG O2 Saturation 80.0 VBG Base Excess 0.6 Anion Gap 20 Estim Creat Clear Calc 27.4 Estimated GFR 19 POC Glucose 301 H Random Glucose 285 H Calcium 8.8 D Total Bilirubin Direct Bilirubin AST ALT Alkaline Phosphatase Troponin I High Sens Total Protein Albumin Acetone, Qual Small H Influenza Type A (PCR) Influenza Type B (PCR) RSV RNA Qual (PCR) SARS-CoV-2 RNA (RT-PCR) 03/08/22 03/08/22 07:19 13:23 MCV MCH MCHC RDW Plt Count MPV Immature Gran % (Auto) Neut % (Auto) Lymph % (Auto) [place] % (Auto) Eos % (Auto) Baso % (Auto) Lymph # (Auto) [place] # (Auto) Eos # (Auto) Baso # (Auto) Abs Immat Gran (auto) Absolute Neuts (auto) Absolute Nucleated RBC Nucleated RBC % (auto) Smear Tech's Comments VBG pH VBG pCO2 VBG pO2 VBG HCO3 VBG O2 Saturation VBG Base Excess Anion Gap Estim Creat Clear Calc Estimated GFR POC Glucose 255 H 314 H Random Glucose Calcium Total Bilirubin Direct Bilirubin AST ALT Alkaline Phosphatase Troponin I High Sens Total Protein Albumin Acetone, Qual Influenza Type A (PCR) Influenza Type B (PCR) RSV RNA Qual (PCR) SARS-CoV-2 RNA (RT-PCR) Imaging Radiologist's Impressions: Impressions Abdomen/Pelvis CT 03/08/22 05:12 IMPRESSION: No acute finding of the abdomen or pelvis. No inflammatory changes. Fleischner guidelines were followed. Assessment and Plan (1) Diabetic ketoacidosis: Status: Acute (2) Diabetes type 1, uncontrolled: Status: Acute (3) 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: Status: Acute (4) Hypertensive urgency: Status: Acute (5) Abdominal pain: Status: Acute Plan A 36 years old male with PMH of diabetes, blindness, hypertension, CKD stage4 who presents to the hospital complaining of 1 day of abdominal pain. Diabetic ketoacidosis, resolved Hyperglycemia 2/2 Uncontrolled type 1 diabetes Anion gap closed, still have minimal acetone Give 10 units of Lantus Start Lantus 25 units at bedtime SSI Diabetic diet Gentle IVF Hypertensive urgency Significant elevated readings of 200/100 Responded to multiple p.o. and IV medications Labetalol as needed for SBP more than 180 Resume metoprolol, hydralazine, amlodipine and valsartan Abdominal pain CT scan negative for any acute findings Could be secondary to gastroenteritis, from DKA Pain medication Advanced diet as tolerated Zofran for nausea CKD stage 4 Monitor urine output Follow BMP DVT PPX Heparin The patient will need overnight hospital stay for treatment of hypertensive urgency and uncontrolled diabetes Time Spent With Patient Time: Total time managing care of this patient today ____ minutes. Quality Stroke Does the patient have a stroke diagnosis?: No VTE Prior VTE?: No VTE Risk Level:: Medical - moderate - high VTE Device Contraindication: Treatment Not Indicated VTE Drug Contraindication: N/A - Med Ordered
--- NOTE | 2022-03-08 14:53 | PHA.MEDREC ---
Pharmacy Consult ? Medication Reconciliation Pharmacy has completed the medication reconciliation. Utilized internet technology manager services. Patient uses an Omnipod insulin pump with novolog. Patient also reports currently taking 25 units Lantus.
[2022-03-08] MEDS: Insulin Glargine,Hum.rec.anlog 100 UNIT/ML 10 ML VIAL 10 UNIT SUBCUT (15:30)
[2022-03-08] MEDS: hydrALAZINE HCl 25 MG TABLET 75 MG PO ×2 (15:31→20:30)
[2022-03-08] MEDS: 0.9 % Sodium Chloride 1,000 ML 100 ML IVCONT (15:41)
[2022-03-08 16:27] LABS: Glucose, Whole Blood 356 mg/dL (60-115)
[2022-03-08] MEDS: HYDROmorphone HCl 0.5 MG/0.5 ML SYRINGE IVPUSH ×2 (16:48→20:32)
[2022-03-08] MEDS: Insulin Lispro 100 UNIT/ML 3 ML VIAL SUBCUT ×2 (16:50→20:31)
[2022-03-08] MEDS: Labetalol HCL 100 MG/20 ML VIAL 10 MG IVPUSH (16:50)
[2022-03-08 19:16] LABS: Glucose, Whole Blood 255 mg/dL (60-115)
[2022-03-08] MEDS: Gabapentin 100 MG CAPSULE 200 MG PO (20:30)
[2022-03-08] MEDS: Insulin Glargine,Hum.rec.anlog 100 UNIT/ML 10 ML VIAL 25 UNIT SUBCUT (20:31)
[2022-03-08] MEDS: Heparin Sodium,Porcine 5,000 UNIT/ML VIAL 5000 UNIT SUBCUT (20:31)
[2022-03-08] MEDS: Nortriptyline HCl 25 MG CAPSULE 50 MG PO (20:31)
[2022-03-08] MEDS: 0.9 % Sodium Chloride Flush 3 ML SYRINGE IVFLUSH (20:32)
[2022-03-09] VITALS (10 sets, daily range): BP systolic 148–210; BP diastolic 76–111; PULSE 96–113; RESP 18–22; TEMP 36.4–37.1; O2SAT 96–98
[2022-03-09] MEDS: 0.9 % Sodium Chloride 1,000 ML 100 ML IVCONT ×2 (02:23→15:50)
[2022-03-09] MEDS: HYDROmorphone HCl 0.5 MG/0.5 ML SYRINGE IVPUSH ×3 (04:40→13:33)
[2022-03-09] MEDS: HYDROmorphone HCl 1 MG/ML SYRINGE IVPUSH (05:49)
[2022-03-09 06:41] LABS: Hematocrit 42.5 % (42.0-52.0); Hemoglobin 14.6 g/dl (14.0-18.0); Mean Corpuscular HGB Conc 34.4 g/dl (31.0-36.0); Mean Corpuscular Volume 87.3 fL (80.0-98.0); Mean Platelet Volume 10.2 fL (9.4-12.4); Platelet Count 218 X10*3/uL (160-400); Red Blood Count 4.87 X10*6/uL (4.60-5.80); Red Cell Distribution Width 12.4 % (11.0-16.0)
[2022-03-09 07:25] LABS: Alanine Aminotransferase 17 U/L (0-40); Albumin Level 3.8 g/dL (3.5-5.0); Alkaline Phosphatase 89 U/L (39-117); Anion Gap 15 (12-20); Aspartate Amino Transferase 20 U/L (5-37); Bilirubin Total 0.5 mg/dL (0.0-1.0); Blood Urea Nitrogen 30 mg/dL (9-16); Calcium 8.7 mg/dL (8.4-10.2); Carbon Dioxide 24 mmol/L (22-29); Chloride 104 mmol/L (96-108); Estimated Glomerular Filt Rate 21; Glucose Random 165 mg/dL (60-115); Sodium 139 mmol/L (135-145); Total Protein 6.7 g/dL (6.5-8.0)
[2022-03-09 07:29] LABS: Glucose, Whole Blood 167 mg/dL (60-115)
[2022-03-09] MEDS: Cholecalciferol (Vitamin D3) 25 MCG TABLET 50 MCG PO (07:47)
[2022-03-09] MEDS: Ezetimibe 10 MG TABLET PO (07:48)
[2022-03-09] MEDS: Metoprolol Succinate ER 25 MG TAB.ER.24H 75 MG PO (07:48)
[2022-03-09] MEDS: hydrALAZINE HCl 25 MG TABLET 75 MG PO ×3 (07:48→20:14)
[2022-03-09] MEDS: Atorvastatin Calcium 80 MG TABLET PO (07:48)
[2022-03-09] MEDS: Gabapentin 100 MG CAPSULE 200 MG PO ×2 (07:49→20:14)
[2022-03-09] MEDS: Insulin Lispro 100 UNIT/ML 3 ML VIAL SUBCUT ×4 (07:50→20:15)
[2022-03-09] MEDS: Heparin Sodium,Porcine 5,000 UNIT/ML VIAL 5000 UNIT SUBCUT ×2 (07:50→20:14)
[2022-03-09] MEDS: 0.9 % Sodium Chloride Flush 3 ML SYRINGE IVFLUSH ×2 (07:51→13:33)
[2022-03-09] MEDS: Valsartan 80 MG TABLET PO (09:25)
[2022-03-09 11:19] LABS: Glucose, Whole Blood 252 mg/dL (60-115)
[2022-03-09] MEDS: Dicyclomine HCl 10 MG CAPSULE PO ×2 (11:44→16:47)
--- NOTE | 2022-03-09 12:18 | HO.PM.IMPN ---
Subjective Subjective Date of Service: 03/09/22 Interval History: Seen and evaluated this morning Blood pressure better controlled but still fluctuates Sugar better controlled Still complaining of abdominal pain No other overnight events Review of Systems No fever, chills but has generalized weakness No chest pain, palpitation No shortness of breath or coughing Reporting epigastric and left-sided pain, no vomiting No urinary symptoms No any rash or wounds Physical Exam Vital Signs: Vital Signs: Last Vital Signs Temp 97.8 F 03/09/22 11:10 Pulse 113 H 03/09/22 11:10 Resp 21 H 03/09/22 11:10 BP 210/111 H 03/09/22 11:10 Pulse Ox 97 03/09/22 11:10 O2 Del Method 03/09/22 11:10 O2 Flow Rate 1 03/08/22 05:32 BMI result Body Mass Index 25.8 Const: Other: Constitutional : Awake for with stimulation, looks comfortable, blind Neck : Normal inspection, Supple Cardiovascular : RRR, no JVP, no lower extremity edema Respiratory : good bilateral air entry, no crackles, wheezes or rhonchi Gastrointestinal: soft, lax, Normal bowel sounds, no significant tenderness noted or surgical signs Skin : Warm, Dry Neurological : Alert & oriented x3, No focal deficit Objective Data Active Medications Acetaminophen (Acetaminophen 325 Mg Tablet) 650 mg PO Q6H PRN PRN Reason: Pain, Mild (Pain Scale 1-3) Atorvastatin Calcium (Atorvastatin Calcium 80 Mg Tablet) 80 mg PO DAILY [facility] Last Admin: 03/09/22 07:48 Dose: 80 mg Documented By: CTORRCornelius Dicyclomine HCl (Dicyclomine Hcl 10 Mg Capsule) 10 mg PO TIDAC [facility] Last Admin: 03/09/22 11:44 Dose: 10 mg Documented By: CTTASIA Ezetimibe (Ezetimibe 10 Mg Tablet) 10 mg PO DAILY [facility] Last Admin: 03/09/22 07:48 Dose: 10 mg Documented By: CTTASIA Gabapentin (Gabapentin 100 Mg Capsule) 200 mg PO BID [facility] Last Admin: 03/09/22 07:49 Dose: 200 mg Documented By: CTORRCornelius Heparin Sodium (Porcine) (Heparin Sodium,Porcine 5,000 Unit/Ml Vial) 5,000 unit SUBCUT Q12H [facility] Last Admin: 03/09/22 07:50 Dose: 5,000 unit Documented By: OLESYA Hydralazine HCl (Hydralazine Hcl 25 Mg Tablet) 75 mg PO TID [facility]; Protocol Last Admin: 03/09/22 07:48 Dose: 75 mg Documented By: OLESYA Hydromorphone HCl (Hydromorphone Hcl 0.5 Mg/0.5 Ml Syringe) 0.5 mg IVPUSH Q4H PRN; Protocol PRN Reason: Pain, Severe (Pain Scale 7-10) Last Admin: 03/09/22 09:23 Dose: 0.5 mg Documented By: OLESYA Insulin Glargine (Insulin Glargine,Hum.Rec.Anlog 100 Unit/Ml 10 Ml Vial) 25 unit SUBCUT BEDTIME [facility] Last Admin: 03/08/22 20:31 Dose: 25 unit Documented By: TROY Insulin Human Lispro (Insulin Lispro 100 Unit/Ml 3 Ml Vial) 0 unit SUBCUT QIDACHS [facility]; Protocol Last Admin: 03/09/22 11:44 Dose: 6 unit Documented By: OLESYA Labetalol HCl (Labetalol Hcl 100 Mg/20 Ml Vial) 10 mg IVPUSH ONCE PRN PRN Reason: SBP>180 Last Admin: 03/08/22 16:50 Dose: 10 mg Documented By: OLESYA Metoprolol Succinate (Metoprolol Succinate Er 25 Mg Tab.Er.24h) 75 mg PO DAILY [facility]; Protocol Last Admin: 03/09/22 07:48 Dose: 75 mg Documented By: OLESYA Nortriptyline HCl (Nortriptyline Hcl 25 Mg Capsule) 50 mg PO BEDTIME [facility] Last Admin: 03/08/22 20:31 Dose: 50 mg Documented By: TROY Omeprazole (Omeprazole 40 Mg Capsule.Dr) 40 mg PO DAILY@0630 [facility] Last Admin: 03/09/22 05:51 Dose: Not Given Documented By: TROY Non-Admin Reason: pt unable to tolerate po, vomiting Ondansetron HCl (Ondansetron Hcl 4 Mg/2 Ml Vial) 4 mg IVPUSH Q8H PRN PRN Reason: Nausea and Vomiting Pharmacy Consult (Consult Rx Perform Med Rec) 1 each MISCELLANE ONCE PRN PRN Reason: Consult order Sodium Chloride (0.9 % Sodium Chloride Flush 3 Ml Syringe) 3 ml IVFLUSH QSHIFT [facility] Last Admin: 03/09/22 07:51 Dose: 3 ml Documented By: OLESYA Valsartan (Valsartan 80 Mg Tablet) 80 mg PO DAILY [facility]; Protocol Last Admin: 03/09/22 09:25 Dose: 80 mg Documented By: OLESYA Vitamin D (Cholecalciferol (Vitamin D3) 25 Mcg Tablet) 50 mcg PO DAILY [facility] Last Admin: 03/09/22 07:47 Dose: 50 mcg Documented By: OLESYA Labs 03/09/22 06:17 03/09/22 06:17 Labs: Laboratory Results - last 24 hr 03/08/22 03/08/22 03/08/22 13:23 16:23 19:13 MCV MCH MCHC RDW Plt Count MPV Absolute Nucleated RBC Nucleated RBC % (auto) Anion Gap Estim Creat Clear Calc Estimated GFR POC Glucose 314 H 356 H* 255 H Random Glucose Calcium Total Bilirubin AST ALT Alkaline Phosphatase Total Protein Albumin 03/09/22 03/09/22 03/09/22 06:17 06:17 07:22 MCV 87.3 MCH 30.0 MCHC 34.4 RDW 12.4 Plt Count 218 MPV 10.2 Absolute Nucleated RBC 0.000 Nucleated RBC % (auto) 0.0 Anion Gap 15 Estim Creat Clear Calc 29.0 Estimated GFR 21 POC Glucose 167 H Random Glucose 165 H Calcium 8.7 Total Bilirubin 0.5 AST 20 ALT 17 Alkaline Phosphatase 89 Total Protein 6.7 Albumin 3.8 03/09/22 11:14 MCV MCH MCHC RDW Plt Count MPV Absolute Nucleated RBC Nucleated RBC % (auto) Anion Gap Estim Creat Clear Calc Estimated GFR POC Glucose 252 H Random Glucose Calcium Total Bilirubin AST ALT Alkaline Phosphatase Total Protein Albumin Assessment and Plan (1) Hypertensive urgency: Status: Acute (2) Diabetic ketoacidosis: Status: Acute (3) Abdominal pain: Status: Acute Plan A 36 years old male with PMH of diabetes, blindness, hypertension, CKD stage4 who presents to the hospital complaining of 1 day of abdominal pain. Diabetic ketoacidosis, resolved Hyperglycemia 2/2 Uncontrolled type 1 diabetes better readings this morning Lantus 25 units at bedtime SSI Diabetic diet DC IVF Hypertensive urgency Significant elevated readings up to 200/100 Responded to multiple p.o. and IV medications Labetalol as needed for SBP more than 180 Resume metoprolol, hydralazine, amlodipine and valsartan Abdominal pain CT scan negative for any acute findings Could be secondary to gastroenteritis, from DKA Pain medication Advanced diet as tolerated Zofran for nausea CKD stage 4 Monitor urine output Follow BMP DVT PPX Heparin The patient will need overnight hospital stay for treatment of hypertensive urgency and uncontrolled diabetes Time Spent With Patient Time: Total time managing care of this patient today ____ minutes. Quality Stroke Does the patient have a stroke diagnosis?: No VTE Prior VTE?: No VTE Risk Level:: Medical - moderate - high VTE Device Contraindication: Treatment Not Indicated VTE Drug Contraindication: N/A - Med Ordered
[2022-03-09] MEDS: Acetaminophen 325 MG TABLET 650 MG PO (12:46)
[2022-03-09] MEDS: Labetalol HCL 100 MG/20 ML VIAL 10 MG IVPUSH (12:46)
[2022-03-09] MEDS: amLODIPine Besylate 10 MG TABLET PO (12:46)
[2022-03-09 15:31] LABS: Glucose, Whole Blood 243 mg/dL (60-115)
[2022-03-09] MEDS: Morphine Sulfate 4 MG/ML CARTRIDGE IVPUSH ×2 (15:49→18:49)
--- NOTE | 2022-03-09 16:06 | MHC.CM.PN ---
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
[2022-03-09] MEDS: cefTRIAXone sodium 1 GM in 0.9 % Sodium Chloride 50 ML IV (16:48)
[2022-03-09] MEDS: metroNIDAZOLE/NS 500 MG/100 ML PIGGYBACK 100 MG IV (17:58)
[2022-03-09 19:57] LABS: Glucose, Whole Blood 225 mg/dL (60-115)
[2022-03-09] MEDS: Insulin Glargine,Hum.rec.anlog 100 UNIT/ML 10 ML VIAL 25 UNIT SUBCUT (20:14)
[2022-03-09] MEDS: Nortriptyline HCl 25 MG CAPSULE 50 MG PO (20:14)
[2022-03-10] VITALS (9 sets, daily range): BP systolic 126–190; BP diastolic 76–98; PULSE 91–110; RESP 18–20; TEMP 36.6–37.5; O2SAT 94–98
[2022-03-10] MEDS: 0.9 % Sodium Chloride 1,000 ML 100 ML IVCONT ×3 (01:57→20:50)
[2022-03-10] MEDS: metroNIDAZOLE/NS 500 MG/100 ML PIGGYBACK 100 MG IV ×3 (01:57→18:41)
[2022-03-10] MEDS: Labetalol HCL 100 MG/20 ML VIAL 10 MG IVPUSH (03:26)
[2022-03-10] MEDS: Morphine Sulfate 4 MG/ML CARTRIDGE IVPUSH ×5 (03:26→20:47)
[2022-03-10] MEDS: Omeprazole 40 MG CAPSULE.DR PO (06:14)
[2022-03-10 06:40] LABS: Anion Gap 10 (12-20); Blood Urea Nitrogen 25 mg/dL (9-16); Calcium 8.3 mg/dL (8.4-10.2); Carbon Dioxide 25 mmol/L (22-29); Chloride 108 mmol/L (96-108); Creatinine Clr Calc Pharmacy 32.6; Estimated Glomerular Filt Rate 24; Glucose Random 120 mg/dL (60-115); Potassium 4.1 mmol/L (3.3-5.1); Sodium 139 mmol/L (135-145)
[2022-03-10 07:56] LABS: Glucose, Whole Blood 110 mg/dL (60-115)
[2022-03-10] MEDS: Ezetimibe 10 MG TABLET PO (07:57)
[2022-03-10] MEDS: Heparin Sodium,Porcine 5,000 UNIT/ML VIAL 5000 UNIT SUBCUT ×2 (07:57→20:47)
[2022-03-10] MEDS: Metoprolol Succinate ER 25 MG TAB.ER.24H 75 MG PO (07:57)
[2022-03-10] MEDS: Dicyclomine HCl 10 MG CAPSULE PO ×3 (07:57→16:31)
[2022-03-10] MEDS: Gabapentin 100 MG CAPSULE 200 MG PO ×2 (07:58→20:47)
[2022-03-10] MEDS: Atorvastatin Calcium 80 MG TABLET PO (07:58)
[2022-03-10] MEDS: Cholecalciferol (Vitamin D3) 25 MCG TABLET 50 MCG PO (07:58)
[2022-03-10] MEDS: hydrALAZINE HCl 25 MG TABLET 75 MG PO ×3 (07:58→20:47)
[2022-03-10] MEDS: amLODIPine Besylate 10 MG TABLET PO (07:58)
--- NOTE | 2022-03-10 09:20 | PM.CNNEP ---
History of Present Illness Reason for Consult Consult date: 03/10/22 Chief Complaint Chief complaint: Hypertensive urgency, DKA History of Present Illness Narrative: 36 year old patient with history of severe CKD admitted with DKA and currently with elevated blood pressure. He initially presented to the hospital with abdominal pain and was found to have DKA. At the time of consultation he denies fever, chills, chest pain, shortness of breath vomiting or diarrhea. He remains on IVF. Review of Systems Review of Systems 10 points ROS negative except for pertinent in [facility] Past Medical History Medical History (Updated 03/10/22 @ 09:24 by Malcolm Sandoval MD) Abdominal pain Acid reflux Acute hyperkalemia Acute on chronic kidney failure Chronic kidney disease, stage 3 Diabetes type 1, uncontrolled Diabetic ketoacidosis 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 Diabetic polyneuropathy associated with type 1 diabetes mellitus Diabetic visual loss, with retinopathy, associated with type 1 diabetes mellitus Essential hypertension Gastritis Hemangioma of liver Hyperglycemia due to type 1 diabetes mellitus Hyperkalemia Hyperlipidemia LDL goal <70 Hypertension associated with diabetes Hypertensive urgency Hypocalcemia Hyponatremia Lactic acidosis due to diabetes mellitus Legally blind Pancreatitis Polyneuropathy Pulmonary edema Respiratory failure Sciatica Type 1 diabetes Vitamin D deficiency Family History Family History Father Diabetes mellitus Mother Diabetes mellitus Maternal Grandfather Diabetes mellitus Maternal Grandmother Diabetes mellitus Surgical History Surgical History Hx of appendectomy Hx of circumcision Hx of endoscopy Hx of eye surgery Social History Social History Household Members: Spouse and Children Household Members Other:: and girlfriend Housing: Apartment Do you presently have visiting nurse or other home services: No Unable to assess alcohol history related to: Unknown Alcohol intake: current Alcohol intake frequency: holidays/special occasions only Alcohol type: hard liquor Patient Tobacco Use Status: Former Tobacco user Second Hand Smoke Exposure: No Substance Use Type: Marijuana Advance Directives Date on File: 04/13/20 service: No Current occupational status: disabled Meds Allergies Allergy/AdvReac Type Severity Reaction Status Date / Time gluten Allergy Gastrointestinal Verified 12/27/21 09:56 Upset losartan Allergy Gastrointestinal Verified 01/29/22 13:40 Upset Active Medications: Current Medications Acetaminophen (Acetaminophen 325 Mg Tablet) 650 mg PO Q6H PRN PRN Reason: Pain, Mild (Pain Scale 1-3) Last Admin: 03/09/22 12:46 Dose: 650 mg Atorvastatin Calcium (Atorvastatin Calcium 80 Mg Tablet) 80 mg PO DAILY [facility] Last Admin: 03/10/22 07:58 Dose: 80 mg Dicyclomine HCl (Dicyclomine Hcl 10 Mg Capsule) 10 mg PO TIDAC [facility] Last Admin: 03/10/22 07:57 Dose: 10 mg Ezetimibe (Ezetimibe 10 Mg Tablet) 10 mg PO DAILY [facility] Last Admin: 03/10/22 07:57 Dose: 10 mg Gabapentin (Gabapentin 100 Mg Capsule) 200 mg PO BID [facility] Last Admin: 03/10/22 07:58 Dose: 200 mg Heparin Sodium (Porcine) (Heparin Sodium,Porcine 5,000 Unit/Ml Vial) 5,000 unit SUBCUT Q12H [facility] Last Admin: 03/10/22 07:57 Dose: 5,000 unit Hydralazine HCl (Hydralazine Hcl 25 Mg Tablet) 75 mg PO TID [facility]; Protocol Last Admin: 03/10/22 07:58 Dose: 75 mg Sodium Chloride (Ns) 1,000 mls @ 100 mls/hr IVCONT .Q10H [facility] Last Admin: 03/10/22 01:57 Dose: 100 mls/hr Ceftriaxone Sodium 1 gm/ (Sodium Chloride) 50 mls @ 100 mls/hr IV Q24H [facility] Last Infusion: 03/09/22 18:15 Dose: Infused Metronidazole (Flagyl) 500 mg in 100 mls @ 100 mls/hr IV Q8H [facility] Last Infusion: 03/10/22 03:03 Dose: Infused Insulin Glargine (Insulin Glargine,Hum.Rec.Anlog 100 Unit/Ml 10 Ml Vial) 25 unit SUBCUT BEDTIME [facility] Last Admin: 03/09/22 20:14 Dose: 25 unit Insulin Human Lispro (Insulin Lispro 100 Unit/Ml 3 Ml Vial) 0 unit SUBCUT QIDACHS [facility]; Protocol Last Admin: 03/10/22 07:54 Dose: Not Given Labetalol HCl (Labetalol Hcl 100 Mg/20 Ml Vial) 10 mg IVPUSH ONCE PRN PRN Reason: SBP>180 Last Admin: 03/09/22 12:46 Dose: 10 mg Labetalol HCl (Labetalol Hcl 100 Mg/20 Ml Vial) 10 mg IVPUSH Q6H PRN PRN Reason: SBP>180 Last Admin: 03/10/22 03:26 Dose: 10 mg Metoprolol Succinate (Metoprolol Succinate Er 100 Mg Tab.Er.24h) 100 mg PO DAILY [facility]; Protocol Last Admin: 03/10/22 09:17 Dose: Not Given Morphine Sulfate (Morphine Sulfate 4 Mg/Ml Cartridge) 4 mg IVPUSH Q3H PRN; Protocol PRN Reason: Pain, Severe (Pain Scale 7-10) Last Admin: 03/10/22 07:56 Dose: 4 mg Naloxone HCl (Naloxone Hcl 0.4 Mg/Ml Vial) 0.2 mg IVPUSH Q2M PRN PRN Reason: Opiate Reversal Nifedipine (Nifedipine Er 60 Mg Tab.Er.24) 60 mg PO DAILY [facility]; Protocol Nortriptyline HCl (Nortriptyline Hcl 25 Mg Capsule) 50 mg PO BEDTIME [facility] Last Admin: 03/09/22 20:14 Dose: 50 mg Omeprazole (Omeprazole 40 Mg Capsule.Dr) 40 mg PO DAILY@0630 [facility] Last Admin: 03/10/22 06:14 Dose: 40 mg Ondansetron HCl (Ondansetron Hcl 4 Mg/2 Ml Vial) 4 mg IVPUSH Q8H PRN PRN Reason: Nausea and Vomiting Pharmacy Consult (Consult Rx Perform Med Rec) 1 each MISCELLANE ONCE PRN PRN Reason: Consult order Sodium Chloride (0.9 % Sodium Chloride Flush 3 Ml Syringe) [facility] Admin: 03/10/22 07:57 Dose: Not Given Valsartan (Valsartan 80 Mg Tablet) 80 mg PO DAILY [facility]; Protocol Last Admin: 03/10/22 09:17 Dose: Not Given Vitamin D (Cholecalciferol (Vitamin D3) 25 Mcg Tablet) 50 mcg PO DAILY [facility] Last Admin: 03/10/22 07:58 Dose: 50 mcg Home Medications Medication Instructions Recorded Confirmed Last Taken Type nortriptyline 50 mg capsule 50 mg PO BEDTIME 01/04/20 03/08/22 03/06/22 History omeprazole 40 mg capsule,delayed 40 mg PO DAILY@0630 01/04/20 03/08/22 03/06/22 History release pen needle, diabetic 32 gauge x #50 ea 07/12/21 07/12/21 Unknown History (BD Ultra-Fine Shannan Pen Needle) gabapentin 100 mg capsule 2 cap PO BID 07/29/21 03/08/22 03/06/22 History metoprolol succinate 50 mg 1.5 tab PO DAILY 07/29/21 03/08/22 03/06/22 History tablet,extended release 24 hr insulin aspart U-100 100 unit/mL 4 - 6 sliding scale dose subcut 12/27/21 03/08/22 03/07/22 History (3 mL) subcutaneous pen TIDAC insulin glargine 100 unit/mL (3 25 unit subcut BEDTIME 03/08/22 03/08/22 03/07/22 History mL) subcutaneous pen (Lantus Solostar U-100 Insulin) Physical Exam Vital Signs: Last Vital Signs Temp 98.9 F 03/10/22 07:38 Pulse 110 H 03/10/22 07:38 Resp 20 03/10/22 07:38 BP 156/88 H 03/10/22 08:52 Pulse Ox 98 03/10/22 07:38 O2 Del Method 03/10/22 07:38 O2 Flow Rate 1 03/08/22 05:32 BMI result Body Mass Index 25.8 Const General: alert and awake Orientation/consciousness: oriented to person, oriented to place and oriented to time HEENT Head: Yes normocephalic and Yes atraumatic Neck Neck: Yes supple Resp Auscultation: clear to auscultation bilaterally Cardio Heart sounds: S1 normal heart sound present and S2 normal heart sound present GI Palpation (GI): Soft to palpation and nontender Neuro General: oriented to person, oriented to place and oriented to time Extrem General: No edema Results Lab Results 03/09/22 06:17 03/10/22 06:11 Lab results: Chemistry 03/08/22 03/08/22 03/09/22 04:02 06:35 06:17 Sodium 138 140 139 Potassium 5.1 4.4 4.0 Carbon Dioxide 22 21 L 24 BUN 36 H 35 H 30 H Creatinine 3.94 H 3.56 H 3.37 H Calcium 9.5 8.8 D 8.7 03/10/22 06:11 Sodium 139 Potassium 4.1 Carbon Dioxide 25 BUN 25 H Creatinine 3.00 H Calcium 8.3 L Hematology 03/08/22 03/09/22 04:02 06:17 WBC 15.7 H 17.0 H Hgb 14.8 14.6 Plt Count 219 218 Assessment and Plan (1) CKD (chronic kidney disease) stage 4, GFR 15-29 ml/min: Status: Acute (2) Hypertensive urgency: Status: Acute Plan kidney function at baseline known severe CKD due to diabetic and hypertensive nephrosclerosis baseline Scr ~ 3 mg/dl heavy proteinuria ~ [address] Bejarano elevated BP REC change amlodipine to nifedipine XL 60 mg daily continue low dose ARB discontinue IVF protect non dominant arm follow kidney function and electrolytes Time Spent With Patient Time: Total time managing care of this patient today ____ minutes. Procedures Date of Service Date of Service: 03/10/22
[2022-03-10] MEDS: Metoprolol Succinate ER 25 MG TAB.ER.24H PO (09:25)
[2022-03-10 11:22] LABS: Glucose, Whole Blood 90 mg/dL (60-115)
--- NOTE | 2022-03-10 12:54 | P.PNIM_ITS ---
Subjective Subjective Date of Service: 03/10/22 Interval History: Seen and evaluated this morning Blood pressure still significantly elevated Sugar better controlled Improved but Still complaining of abdominal pain No other overnight events Review of Systems No fever, chills but has generalized weakness No chest pain, palpitation No shortness of breath or coughing Reporting epigastric and left-sided pain, no vomiting No urinary symptoms No any rash or wounds Physical Exam Vital Signs: Vital Signs: Last Vital Signs Temp 98.8 F 03/10/22 11:12 Pulse 97 03/10/22 11:12 Resp 20 03/10/22 11:12 BP 126/82 03/10/22 11:12 Pulse Ox 95 03/10/22 11:12 O2 Del Method 03/10/22 11:12 O2 Flow Rate 1 03/08/22 05:32 BMI result Body Mass Index 25.8 Const: Other: Constitutional : Awake for with stimulation, looks comfortable, blind Neck : Normal inspection, Supple Cardiovascular : RRR, no JVP, no lower extremity edema Respiratory : good bilateral air entry, no crackles, wheezes or rhonchi Gastrointestinal: soft, lax, Normal bowel sounds, left lower quadrant mild tenderness noted with no surgical signs Skin : Warm, Dry Neurological : Alert & oriented x3, No focal deficit Objective Data Active Medications Acetaminophen (Acetaminophen 325 Mg Tablet) 650 mg PO Q6H PRN PRN Reason: Pain, Mild (Pain Scale 1-3) Last Admin: 03/09/22 12:46 Dose: 650 mg Documented By: COY Atorvastatin Calcium (Atorvastatin Calcium 80 Mg Tablet) 80 mg PO DAILY [facility] Last Admin: 03/10/22 07:58 Dose: 80 mg Documented By: OLESYA Dicyclomine HCl (Dicyclomine Hcl 10 Mg Capsule) 10 mg PO TIDAC [facility] Last Admin: 03/10/22 12:03 Dose: 10 mg Documented By: OLESYA Ezetimibe (Ezetimibe 10 Mg Tablet) 10 mg PO DAILY [facility] Last Admin: 03/10/22 07:57 Dose: 10 mg Documented By: OLESYA Gabapentin (Gabapentin 100 Mg Capsule) 200 mg PO BID [facility] Last Admin: 03/10/22 07:58 Dose: 200 mg Documented By: OLESYA Heparin Sodium (Porcine) (Heparin Sodium,Porcine 5,000 Unit/Ml Vial) 5,000 unit SUBCUT Q12H [facility] Last Admin: 03/10/22 07:57 Dose: 5,000 unit Documented By: OLESYA Hydralazine HCl (Hydralazine Hcl 25 Mg Tablet) 75 mg PO TID [facility]; Protocol Last Admin: 03/10/22 07:58 Dose: 75 mg Documented By: OLESYA Sodium Chloride (Ns) 1,000 mls @ 100 mls/hr IVCONT .Q10H [facility] Last Admin: 03/10/22 12:08 Dose: 100 mls/hr Documented By: OLESYA Ceftriaxone Sodium 1 gm/ (Sodium Chloride) 50 mls @ 100 mls/hr IV Q24H [facility] Last Infusion: 03/09/22 18:15 Dose: 0 mls/hr Documented By: OLESYA Metronidazole (Flagyl) 500 mg in 100 mls @ 100 mls/hr IV Q8H [facility] Last Infusion: 03/10/22 11:44 Dose: 0 mls/hr Documented By: OLESYA Insulin Glargine (Insulin Glargine,Hum.Rec.Anlog 100 Unit/Ml 10 Ml Vial) 25 unit SUBCUT BEDTIME [facility] Last Admin: 03/09/22 20:14 Dose: 25 unit Documented By: CARLOS MANUEL Insulin Human Lispro (Insulin Lispro 100 Unit/Ml 3 Ml Vial) 0 unit SUBCUT QIDACHS [facility]; Protocol Last Admin: 03/10/22 11:44 Dose: Not Given Documented By: OLESYA Non-Admin Reason: No Insulin Coverage Labetalol HCl (Labetalol Hcl 100 Mg/20 Ml Vial) 10 mg IVPUSH ONCE PRN PRN Reason: SBP>180 Last Admin: 03/09/22 12:46 Dose: 10 mg Documented By: COY Labetalol HCl (Labetalol Hcl 100 Mg/20 Ml Vial) 10 mg IVPUSH Q6H PRN PRN Reason: SBP>180 Last Admin: 03/10/22 03:26 Dose: 10 mg Documented By: CARLOS MANUEL Metoprolol Succinate (Metoprolol Succinate Er 100 Mg Tab.Er.24h) 100 mg PO DAILY [facility]; Protocol Last Admin: 03/10/22 09:17 Dose: Not Given Documented By: OLESYA Non-Admin Reason: Previously Administered Morphine Sulfate (Morphine Sulfate 4 Mg/Ml Cartridge) 4 mg IVPUSH Q3H PRN; Protocol PRN Reason: Pain, Severe (Pain Scale 7-10) Last Admin: 03/10/22 12:03 Dose: 4 mg Documented By: OLESYA Naloxone HCl (Naloxone Hcl 0.4 Mg/Ml Vial) 0.2 mg IVPUSH Q2M PRN PRN Reason: Opiate Reversal Nifedipine (Nifedipine Er 60 Mg Tab.Er.24) 60 mg PO DAILY [facility]; Protocol Nortriptyline HCl (Nortriptyline Hcl 25 Mg Capsule) 50 mg PO BEDTIME [facility] Last Admin: 03/09/22 20:14 Dose: 50 mg Documented By: CARLOS MANUEL Omeprazole (Omeprazole 40 Mg Capsule.Dr) 40 mg PO DAILY@0630 [facility] Last Admin: 03/10/22 06:14 Dose: 40 mg Documented By: CARLOS MANUEL Ondansetron HCl (Ondansetron Hcl 4 Mg/2 Ml Vial) 4 mg IVPUSH Q8H PRN PRN Reason: Nausea and Vomiting Pharmacy Consult (Consult Rx Perform Med Rec) 1 each MISCELLANE ONCE PRN PRN Reason: Consult order Sodium Chloride (0.9 % Sodium Chloride Flush 3 Ml Syringe) 3 ml IVFLUSH QSHIFT [facility] Last Admin: 03/10/22 07:57 Dose: Not Given Documented By: OLESYA Non-Admin Reason: IV Running Valsartan (Valsartan 80 Mg Tablet) 80 mg PO DAILY [facility]; Protocol Last Admin: 03/10/22 09:17 Dose: Not Given Documented By: OLESYA Non-Admin Reason: Patient Refused Vitamin D (Cholecalciferol (Vitamin D3) 25 Mcg Tablet) 50 mcg PO DAILY [facility] Last Admin: 03/10/22 07:58 Dose: 50 mcg Documented By: OLESYA Labs 03/09/22 06:17 03/10/22 06:11 Labs: Laboratory Results - last 24 hr 03/09/22 03/09/22 03/10/22 15:26 19:46 06:11 Anion Gap 10 L Estim Creat Clear Calc 32.6 Estimated GFR 24 POC Glucose 243 H 225 H Random Glucose 120 H Calcium 8.3 L 03/10/22 03/10/22 07:42 11:14 Anion Gap Estim Creat Clear Calc Estimated GFR POC Glucose 110 90 Random Glucose Calcium Assessment and Plan (1) Hypertensive urgency: Status: Acute (2) Diabetic ketoacidosis: Status: Acute (3) Abdominal pain: Status: Acute (4) CKD (chronic kidney disease) stage 4, GFR 15-29 ml/min: Status: Acute Plan A 36 years old male with PMH of diabetes, blindness, hypertension, CKD stage4 who presents to the hospital complaining of 1 day of abdominal pain. Diabetic ketoacidosis, resolved Hyperglycemia 2/2 Uncontrolled type 1 diabetes better readings this morning Lantus 25 units at bedtime SSI Diabetic diet DC IVF Hypertensive urgency Elevated reading but better controlled Labetalol as needed for SBP more than 180 Continue metoprolol, hydralazine, amlodipine and valsartan Patient refusing valsartan Nephrology input appreciated, DC amlodipine and start nifedipine Abdominal pain Could be secondary to colitis CT scan negative for any acute findings but clinically has as LLQ with elevated WBCs Pain medication Started on levofloxacin Advanced diet as tolerated Zofran for nausea CKD stage 4 Monitor urine output Follow BMP DVT PPX Heparin The patient will need overnight hospital stay for treatment of hypertensive urgency and uncontrolled diabetes with possible colitis Time Spent With Patient Time: Total time managing care of this patient today ____ minutes. Quality Stroke Does the patient have a stroke diagnosis?: No VTE Prior VTE?: No VTE Risk Level:: Medical - moderate - high VTE Device Contraindication: Treatment Not Indicated VTE Drug Contraindication: N/A - Med Ordered
--- NOTE | 2022-03-10 13:13 | MHC.CM.PN ---
per rrounds pt not ready for dc dc plans remain home
[2022-03-10 16:13] LABS: Glucose, Whole Blood 162 mg/dL (60-115)
[2022-03-10] MEDS: Insulin Lispro 100 UNIT/ML 3 ML VIAL SUBCUT (16:30)
[2022-03-10] MEDS: cefTRIAXone sodium 1 GM in 0.9 % Sodium Chloride 50 ML IV (16:31)
[2022-03-10 19:49] LABS: Glucose, Whole Blood 114 mg/dL (60-115)
[2022-03-10] MEDS: Nortriptyline HCl 25 MG CAPSULE 50 MG PO (20:47)
[2022-03-10] MEDS: Insulin Glargine,Hum.rec.anlog 100 UNIT/ML 10 ML VIAL 25 UNIT SUBCUT (20:48)
[2022-03-11] VITALS: BP 150/90; PULSE 107; RESP 20; TEMP 36.8; O2SAT 97
[2022-03-11 00:07] LABS: Glucose, Whole Blood 146 mg/dL (60-115)
[2022-03-11] MEDS: metroNIDAZOLE/NS 500 MG/100 ML PIGGYBACK 100 MG IV ×2 (01:41→11:14)
[2022-03-11 05:25] VITALS: BP 160/94; PULSE 101; RESP 18; TEMP 37.2; O2SAT 98
[2022-03-11] MEDS: Omeprazole 40 MG CAPSULE.DR PO (05:55)
[2022-03-11] MEDS: 0.9 % Sodium Chloride 1,000 ML 100 ML IVCONT (05:56)
[2022-03-11 07:34] VITALS: BP 150/90; PULSE 100; RESP 18; TEMP 37.2; O2SAT 96
[2022-03-11] MEDS: Cholecalciferol (Vitamin D3) 25 MCG TABLET 50 MCG PO (07:45)
[2022-03-11] MEDS: hydrALAZINE HCl 25 MG TABLET 75 MG PO ×2 (07:46→16:13)
[2022-03-11] MEDS: Gabapentin 100 MG CAPSULE 200 MG PO (07:46)
[2022-03-11] MEDS: Metoprolol Succinate ER 100 MG TAB.ER.24H PO (07:46)
[2022-03-11] MEDS: Atorvastatin Calcium 80 MG TABLET PO (07:46)
[2022-03-11 07:47] LABS: Glucose, Whole Blood 131 mg/dL (60-115)
[2022-03-11] MEDS: Heparin Sodium,Porcine 5,000 UNIT/ML VIAL 5000 UNIT SUBCUT (07:47)
[2022-03-11] MEDS: Ezetimibe 10 MG TABLET PO (07:47)
[2022-03-11] MEDS: Morphine Sulfate 4 MG/ML CARTRIDGE IVPUSH (07:47)
[2022-03-11] MEDS: Dicyclomine HCl 10 MG CAPSULE PO ×3 (07:47→16:13)
[2022-03-11] MEDS: NIFEdipine ER 60 MG TAB.ER.24 PO (07:51)
--- NOTE | 2022-03-11 10:32 | PM.PNNEP ---
Subjective Subjective Date of Service: 03/11/22 Interval history: Events noted Labs reviwed Physical Exam Vital Signs: Vital Signs: Last Vital Signs Temp 98.9 F 03/11/22 07:34 Pulse 100 03/11/22 07:34 Resp 18 03/11/22 07:34 BP 150/90 H 03/11/22 07:34 Pulse Ox 96 03/11/22 07:34 O2 Del Method 03/11/22 07:34 O2 Flow Rate 1 03/08/22 05:32 BMI result Body Mass Index 25.8 Const: General: alert and awake Orientation/consciousness: oriented to person, oriented to place and oriented to time HEENT: Head: Yes normocephalic and Yes atraumatic Neck: Neck: Yes supple Resp: Auscultation: clear to auscultation bilaterally Cardio: Heart sounds: S1 normal heart sound present and S2 normal heart sound present GI: Palpation (GI): Soft to palpation and nontender Neuro: General: oriented to person, oriented to place and oriented to time Extrem: General: No edema Objective Data Labs 03/09/22 06:17 03/10/22 06:11 Labs: Laboratory Results - last 24 hr 03/10/22 03/10/22 03/10/22 11:14 16:09 19:44 POC Glucose 90 162 H 114 03/11/22 03/11/22 00:03 07:37 POC Glucose 146 H 131 H Procedures Date of Service Date of Service: 03/11/22 Assessment & Plan Assessment and plan (1) CKD (chronic kidney disease) stage 4, GFR 15-29 ml/min: Status: Acute (2) Hypertensive urgency: Status: Acute Plan kidney function at baseline known severe CKD due to diabetic and hypertensive nephrosclerosis baseline Scr ~ 3 mg/dl heavy proteinuria ~ [address] Bejarano elevated BP REC continue low dose ARB optimize blood sugar protect non dominant arm follow kidney function and electrolytes Time Spent With Patient Time: Total time managing care of this patient today ____ minutes. Progress Note: Quality Stroke Does the patient have a stroke diagnosis?: No
[2022-03-11 11:22] LABS: Glucose, Whole Blood 185 mg/dL (60-115)
[2022-03-11] MEDS: Insulin Lispro 100 UNIT/ML 3 ML VIAL SUBCUT (11:25)
[2022-03-11 12:00] VITALS: BP 140/88; PULSE 98; RESP 18; TEMP 37.1; O2SAT 99
--- NOTE | 2022-03-11 12:00 | PM.DS ---
DS: Providers Provider Date of Service: 03/11/22 Date of admission: 03/08/22 14:31 Primary care physician: Hong Rodríguez MD Consults: 03/10/22 07:52 Consult to Nephrology Routine Consulting Provider: Pro Christianson Reason for consultation: CKD3, uncontrolled HTN DS: Diagnosis Discharge Diagnosis (1) CKD (chronic kidney disease) stage 4, GFR 15-29 ml/min: Status: Acute (2) Hypertensive urgency: Status: Acute (3) Diabetic ketoacidosis: Status: Acute (4) Abdominal pain: Status: Acute DS: Summary Hospital Course Hospital Course: Admission note HPI A 36 years old male with PMH of diabetes, blindness, hypertension, CKD stage4 who presents to the hospital complaining of 1 day of abdominal pain.? Reports that the pain started yesterday on the left side of his abdomen associated with nausea and vomiting multiple occasions as he was unable to keep down his medications of tolerate any food.? Denies any fever, chills, chest pain, palpitation, difficulty breathing, coughing, change in bowel habit or urinary symptoms.? In the emergency he was found to have DKA with elevated glucose requiring IV insulin and IV fluid hand to close the anion gap.? A seton was positive.? Noted to have significantly elevated blood pressure readings of 200/100.? Responded to IV and oral medications.? CT scan of the abdomen was negative for any acute findings.? Will be admitted for further evaluation and treatment. Hospital course The patient was admitted for treatment of hypertensive urgency, diabetic ketoacidosis and abdominal pain. Responded well to treatment in the emergency with IV fluids and IV insulin closing the anion gap. Restarted his home dose of Lantus with good response. Tolerated diet well. Blood pressure was challenging to control requiring multiple doses of IV labetalol. Patient refused to take valsartan claiming it causes abdominal pain. He was treated with metoprolol, hydralazine and addition of nifedipine by Nephrology team who followed the patient during the hospital stay. Kidney function remained stable. Evaluated for abdominal pain and elevated WBCs. CT scan was negative for any acute findings but he has significant left lower quadrant tenderness. Treated empirically as possible infection was colitis with IV antibiotic and good response over the course of 2 days. To be discharged on Levaquin to finish 1 week of antibiotics. Continue Levaquin as prescribed Start nifedipine, monitor blood pressure for the next week and report 1 week readings to PCP Oxycodone as needed for pain Time Spent with Patient Time attestation: Total time managing care of this patient today ____ minutes. Discharge coordination time: Greater than 30 minutes Quality: Safe Use of Opioids Does Pt have an Active Cancer Diagnosis on the Problem List?: No Quality: Stroke Does the patient have a stroke diagnosis?: No Physical Exam Vital Signs: Vital Signs: Last Vital Signs Temp 98.9 F 03/11/22 07:34 Pulse 100 03/11/22 07:34 Resp 18 03/11/22 07:34 BP 150/90 H 03/11/22 07:34 Pulse Ox 96 03/11/22 07:34 O2 Del Method 03/11/22 07:34 O2 Flow Rate 1 03/08/22 05:32 BMI result Body Mass Index 25.8 Const: Other: Constitutional : Awake for with stimulation, looks comfortable,legally blind Neck : Normal inspection, Supple Cardiovascular : RRR, no JVP, no lower extremity edema Respiratory : good bilateral air entry, no crackles, wheezes or rhonchi Gastrointestinal: soft, lax, Normal bowel sounds, no tenderness or surgical signs noted Skin : Warm, Dry Neurological : Alert & oriented x3, No focal deficit DS: Data Data Completed and Pending Completed studies during hospitalization [Text1]: Procedures Insertion of Endotracheal Airway into Trachea, Via Natural or Artificial Opening Endoscopic (07/29/21) Insertion of Infusion Device into Superior Vena Cava, Percutaneous Approach (07/29/21) Introduction of Vasopressor into Peripheral Vein, Percutaneous Approach (07/29/21) Respiratory Ventilation, Greater than 96 Consecutive Hours (07/29/21) Ultrasonography of Superior Vena Cava, Guidance (07/29/21) Labs on day of discharge: Laboratory Results - last 24 hr 03/10/22 03/10/22 03/11/22 16:09 19:44 00:03 POC Glucose 162 H 114 146 H 03/11/22 03/11/22 07:37 11:15 POC Glucose 131 H [address] scan - abdomen: Radiologist's impression: ITS Impressions Abdomen/Pelvis CT 03/08/22 05:12 IMPRESSION: No acute finding of the abdomen or pelvis. No inflammatory changes. Fleischner guidelines were followed. Abdomen/Pelvis CT 03/09/22 06:13 IMPRESSION: No acute findings of the abdomen or pelvis. No inflammatory changes. No change from recent prior. Mild symmetric perinephric stranding again noted. This is chronic. Fleischner guidelines were followed. Discharge Plan Discharge Anticipated Discharge Date/Time: 03/11/22 11:54 Patient Disposition: Home, Self-Care Discharge Diagnosis: Diabetic ketoacidosis Hypertensive urgency Colitis Referrals: [facility] By [facility] [Physician] - Name,MD Hong [Primary Care Provider] - 1 Week Discharge Medications: New valsartan 80 mg tablet 80 mg PO DAILY Qty: 14 0RF nifedipine 60 mg Tablet Extended Release 24hr 60 mg PO DAILY Qty: 30 0RF Protocol: Hold for SBP< HOLD for SBP < : 90 levofloxacin 500 mg tablet 500 mg PO DAILY Qty: 4 0RF oxycodone 5 mg tablet 5 mg PO Q8H PRN (Reason: pain (scale score 7-10)) Qty: 10 0RF Rx Instructions: Partial Fill upon patient request. Continued cholecalciferol (vitamin D3) 50 mcg (2,000 unit) capsule 50 mcg PO DAILY 30 Days Qty: 30 6RF atorvastatin 80 mg tablet 80 mg PO DAILY Qty: 30 6RF ezetimibe [Zetia] 10 mg tablet 10 mg PO DAILY 90 Days Qty: 90 1RF (DME) Omnipod 5 G6 Intro Kit (Gen 5) Cartridge See Rx Instructions .Route Qty: 1 4RF Rx Instructions: As directed (DME) Omnipod 5 G6 Intro Kit (Gen 5) Cartridge See Rx Instructions .Route Qty: 1 4RF Rx Instructions: As directed gabapentin 100 mg capsule 2 cap PO BID metoprolol succinate 50 mg tablet extended release 24 hr 1.5 tab PO DAILY hydralazine 50 mg Tablet 75 mg PO TID Qty: 90 0RF Protocol: Hold for SBP< HOLD for SBP < : 90 insulin glargine [Lantus Solostar U-100 Insulin] 100 unit/mL (3 mL) insulin pen 25 unit subcut BEDTIME omeprazole 40 mg capsule,delayed release(DR/EC) 40 mg PO DAILY@0630 nortriptyline 50 mg capsule 50 mg PO BEDTIME (DME) pen needle, diabetic [BD Ultra-Fine Shannan Pen Needle] 32 gauge x 5/32 needle See Rx Instructions .ROUTE QID Qty: 50 Rx Instructions: As directed insulin aspart U-100 100 unit/mL (3 mL) insulin pen 4 - 6 sliding scale dose subcut TIDAC Rx Instructions: sliding scale and put inside omnipod insulin pump Discharge Orders: Discharge Order (Routine); Ordered 03/11/22 Ordered By: Neal Godoy Diet: Diabetic diet Activity on Discharge: As tolerated Stand Alone Forms: Patient Portal Discharge page Print Language: Latvian Activity Restrictions/Additional Instructions: Please take your blood pressure medication. Please closely take your insulin. Please follow a strict diabetic diet. Your sugar was extremely high today. Continuing doing this will hurt her kidney. You could from your diabetes Care Plan Goals: Read below Health Concerns: Read below Plan of Treatment: Read below Assessment: You were admitted to the hospital for evaluation of abdominal pain. Found to be on diabetic ketoacidosis and hypertensive urgency requiring IV insulin and blood pressure medication. Treated with IV fluid, antibiotics and pain medication with good response over the course of hospital stay as it seems you have for possible infectious colitis. You were evaluated by kidney specialist in all adjusted your blood pressure medications. Continue Levaquin as prescribed Start nifedipine, monitor your blood pressure for the next week and report 1 week readings to your PCP Oxycodone as needed for pain Patient Instructions: Diabetic Gastroparesis (DC), Dehydration (ED), Chronic Kidney Disease (ED), Hypertension (ED), Diabetic Hyperglycemia (ED), Diabetes Type 1: Management (ED)
[2022-03-11] MEDS: Morphine Sulfate 4 MG/ML CARTRIDGE 2 MG IVPUSH (13:22)
[2022-03-11 15:28] LABS: Glucose, Whole Blood 172 mg/dL (60-115)
[2022-03-11 15:36] VITALS: BP 156/89; PULSE 102; RESP 17; TEMP 36.9; O2SAT 95
[2022-03-11] MEDS: Acetaminophen 325 MG TABLET 650 MG PO (16:15)
== END 2022-03-11 16:31 | disposition home or self-care (01) | DRG 420 ==
LOC: HO.ED 13:46 → HO.EDOVER 14:47 → HO.IMC 14:58
PROVIDERS: Admitting Provider Student in an Organized Health Care Education/Training Program; Emergency Provider Emergency Medicine Emergency Medical Services; PCP Internal Medicine Geriatric Medicine; Visit Provider Student in an Organized Health Care Education/Training Program
DX: E10.10 Type 1 diabetes mellitus with ketoacidosis without coma (principal); N18.4 Chronic kidney disease, stage 4 (severe); E10.42 Type 1 diabetes mellitus with diabetic polyneuropathy; E10.22 Type 1 diabetes mellitus with diabetic chronic kidney disease; I16.0 Hypertensive urgency; H54.8 Legal blindness, as defined in USA; K52.9 Noninfective gastroenteritis and colitis, unspecified; E86.0 Dehydration; I12.9 Hypertensive chronic kidney disease with stage 1 through stage 4 chronic kidney disease, or unspecified chronic kidney disease; Z20.822 Contact with and (suspected) exposure to COVID-19; Z87.891 Personal history of nicotine dependence; Z79.899 Other long term (current) drug therapy
CPT/HCPCS: 0241U; 36415; 74176; 80048; 80053; 82009; 82248; 82803; 82947; 84484; 85025; 85027; 93005; 99285; J0696; J1170; J1643; J2270; J2405

== ENCOUNTER 2022-03-14 21:38 | Emergency (ER) | payer MEDICAID, SELFPAY ==
--- NOTE | ~2022-03-14 | CT_ITS ---
EXAMINATION: CT ABDOMEN AND PELVIS WITHOUT CONTRAST CLINICAL INFORMATION: Worsening abdominal pain. COMPARISON: 03/09/2022 TECHNIQUE: Multidetector volumetric imaging was performed from the superior aspect of the liver through the pubic symphysis. Sagittal and coronal reformatted images were obtained on the technologist's workstation. This CT examination was performed using dose optimization techniques as appropriate, variously including the following: *Automated exposure control *Adjustment of mA and/or kV according to patient size (this includes techniques or standardized protocols for targeted exams where dose is matched to indication/reason for exam; i.e. extremities or head) *Use of iterative reconstruction technique DLP: 533 mGy-cm FINDINGS: LUNG BASES: Minimal right basilar atelectasis. Normal visualized cardiac structures. LIVER, GALLBLADDER, AND BILIARY TREE: The liver is normal in size, shape, and attenuation. No focal hepatic lesion or biliary ductal dilatation is present. The gallbladder is unremarkable with no evidence of radiopaque gallstones, gallbladder wall thickening, or obvious pericholecystic inflammatory changes. PANCREAS: Unremarkable. SPLEEN: Unremarkable. ADRENAL GLANDS: Unremarkable. KIDNEYS AND URETERS: The kidneys are normal in size, shape, and attenuation. No hydronephrosis, hydroureter, or calculi seen. No perinephric stranding. BLADDER: Unremarkable. GASTROINTESTINAL TRACT: The stomach is unremarkable. Normal caliber small bowel. No obstruction. No colonic wall thickening or inflammation. Prominent stool in the right hemicolon. ABDOMINAL WALL: No significant hernia is appreciated. LYMPH NODES: No pathologic enlargement. Mildly prominent retroperitoneal lymph nodes are present. Similar appearance to prior. VASCULAR: Unremarkable. PELVIC VISCERA: The prostate and seminal vesicles are unremarkable. OSSEOUS STRUCTURES: No acute or suspicious abnormality. CT/CT abdomen pelvis wo IV con IMPRESSION: No acute findings in the abdomen or pelvis. No inflammatory changes. Prominent stool in the right hemicolon. Fleischner guidelines were followed.
[2022-03-14 21:47] VITALS: BP 165/100; BP 165/120; PULSE 90; PULSE 91; RESP 18; TEMP 36.9; O2SAT 97; O2SAT 99; BMI 26.4
[2022-03-14 21:55] LABS: Glucose, Whole Blood 357 mg/dL (60-115)
--- NOTE | 2022-03-14 23:05 | ED.ABDPAIN ---
HPI - Abdominal Pain General Chief Complaint: Abdominal Pain Stated Complaint: L side abd/chest pain x 1 week per EMS Time Seen by Provider: 03/14/22 22:04 Source: patient Mode of arrival: EMS Limitations: no limitations History of Present Illness HPI narrative: Patient comes to the emergency room complaining of left lower quadrant pain. Patient was seen here 5 days ago, CT scan negative. Patient states since then the pain keeps getting worse. Patient arrives to the emergency room complaining of high glucose, today was 357. patient complaining of nausea, no vomiting or diarrhea. Related Data Home Medications Medication Instructions Recorded Confirmed nortriptyline 50 mg capsule 50 mg PO BEDTIME 01/04/20 03/08/22 omeprazole 40 mg capsule,delayed 40 mg PO DAILY@0630 01/04/20 03/08/22 release pen needle, diabetic 32 gauge x #50 ea 07/12/21 07/12/21 (BD Ultra-Fine Shannan Pen Needle) gabapentin 100 mg capsule 2 cap PO BID 07/29/21 03/08/22 metoprolol succinate 50 mg 1.5 tab PO DAILY 07/29/21 03/08/22 tablet,extended release 24 hr insulin aspart U-100 100 unit/mL 4 - 6 sliding scale dose subcut 12/27/21 03/08/22 (3 mL) subcutaneous pen TIDAC insulin glargine 100 unit/mL (3 25 unit subcut BEDTIME 03/08/22 03/08/22 mL) subcutaneous pen (Lantus Solostar U-100 Insulin) Previous Rx's Medication Instructions Recorded cholecalciferol (vitamin D3) 50 50 mcg PO DAILY 30 days #30 caps 04/05/20 mcg (2,000 unit) capsule atorvastatin 80 mg tablet 80 mg PO DAILY #30 tabs 12/12/20 ezetimibe 10 mg tablet (Zetia) 10 mg PO DAILY 90 days #90 tabs 07/05/21 hydralazine 50 mg tablet 75 mg PO TID #90 tabs 08/09/21 insulin pump cartridge,automated #1 ea 02/19/22 dose,BT with controller subcutaneous (Omnipod 5 G6 Intro Kit (Gen 5) subcutaneous cartridge with controller) insulin pump cartridge,automated #1 ea 02/19/22 dose,BT with controller subcutaneous (Omnipod 5 G6 Intro Kit (Gen 5) subcutaneous cartridge with controller) valsartan 80 mg tablet 80 mg PO DAILY #14 tabs 03/08/22 levofloxacin 500 mg tablet 500 mg PO DAILY #4 tabs 03/11/22 nifedipine 60 mg tablet,extended 60 mg PO DAILY #30 tabs 03/11/22 release 24 hr oxycodone 5 mg capsule 5 mg PO Q8H PRN severe pain (scale 03/12/22 score 7-10) #10 caps metoclopramide HCl 5 mg tablet 5 mg PO DAILY PRN nausea and 03/15/22 vomiting #14 tabs polyethylene glycol 3350 17 17 g PO BID #238 grams 03/15/22 gram/dose oral powder (Miralax) Allergies Allergy/AdvReac Type Severity Reaction Status Date / Time gluten Allergy Gastrointestinal Verified 12/27/21 09:56 Upset losartan Allergy Gastrointestinal Verified 01/29/22 13:40 Upset Review of Systems Review of Systems Constitutional : No Weight loss, No Fever, No Chills, No Night Sweats, No Fatigue, No Malaise ENT/Mouth : No Hearing loss, No Ear Pain, No Nasal Congestion, No Sinus Pain, No Hoarseness, No sore throat, No Rhinorrhea, No Swallowing Difficulty Eyes: No Eye Pain, No Swelling, No Redness, No Foreign Body, No Discharge, No Vision Changes Cardiovascular : No Chest Pain, No SOB, No Dyspnea on Exertion, No Orthopnea, No Edema, No Palpitations Respiratory : No Cough, No Sputum, No Wheezing, No Smoke Exposure, No Dyspnea Gastrointestinal : No Nausea, No Vomiting, No Diarrhea, No Constipation, complaining of worsening abdominal pain left lower quadrant for last 5 days Genitourinary : no irregular bleeding, No Dysuria, No Urinary Frequency, No Hematuria, No Urinary Incontinence, No Urgency, No Flank Pain, No Urinary Flow Changes, No Hesitancy Musculoskeletal : No joint pain, No Myalgias, No Joint Swelling Skin : No Skin Lesions, No rash Neuro : No Weakness, No Numbness, No Paresthesias, No Loss of Consciousness, No Dizziness, No Headache Psych : No Anxiety/Panic, No Depression, No SI/HI/AH/VH, No Social Issues, Heme/Lymph: No Bruising, No Bleeding,No Lymphadenopathy Endocrine : No Polyuria, No Polydipsia, No Temperature Intolerance, complaining of hyperglycemia [facility] Past Medical History Medical History Abdominal pain Acid reflux Acute hyperkalemia Acute on chronic kidney failure Chronic kidney disease, stage 3 Diabetes type 1, uncontrolled Diabetic ketoacidosis 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 Diabetic polyneuropathy associated with type 1 diabetes mellitus Diabetic visual loss, with retinopathy, associated with type 1 diabetes mellitus Essential hypertension Gastritis Hemangioma of liver Hyperglycemia due to type 1 diabetes mellitus Hyperkalemia Hyperlipidemia LDL goal <70 Hypertension associated with diabetes Hypertensive urgency Hypocalcemia Hyponatremia Lactic acidosis due to diabetes mellitus Legally blind Pancreatitis Polyneuropathy Pulmonary edema Respiratory failure Sciatica Type 1 diabetes Vitamin D deficiency Surgical History Hx of appendectomy Hx of circumcision Hx of endoscopy Hx of eye surgery Family History Family History Father Diabetes mellitus Mother Diabetes mellitus Maternal Grandfather Diabetes mellitus Maternal Grandmother Diabetes mellitus Social History Social History Household Members: Spouse and Children Household Members Other:: and girlfriend Housing: Apartment Do you presently have visiting nurse or other home services: No Unable to assess alcohol history related to: Unknown Alcohol intake: former Patient Tobacco Use Status: Former Tobacco user Smoked in Last 30 Days: No Second Hand Smoke Exposure: No Use of substances other than those prescribed or required for medical reasons: No Substance Use Type: Marijuana Advance Directives: Yes Advance Directives on File: Yes Advance Directives Date on File: 04/13/20 service: No Current occupational status: disabled Physical Exam ED Vital Signs: Vital Signs - 24 hr 03/14/22 21:47 03/15/22 00:29 Temperature 98.5 F Pulse Rate 91 Respiratory Rate 18 19 Blood Pressure 165/100 H 173/104 H Pulse Oximetry 97 97 Oxygen Delivery Method Room Air Room Air BMI result Body Mass Index 26.4 Const Other: Appearance: Alert. Oriented X3. Seems uncomfortable with abdominal pain Eyes: Pupils equal, round and reactive to light. ENT: Pharynx normal. Neck: Normal inspection. Neck supple. No lymph nodes noted. No crepitus CVS: Normal heart rate and rhythm. Pulses normal. Normal S1 and S2 Respiratory: No respiratory distress. Breath sounds normal. No Wheezing. No rales Abdomen: Soft , No rigidity. No distention. Complaining of pain on palpation in the left lower quadrant Skin: Skin warm and dry. Normal skin color. Normal skin turgor. Extremities: No lower extremity edema. No Lacerations. No Rash Neuro: Oriented X 3. No motor deficit. No sensory deficit. Moving all extremities. No slurred speech. CN 2 through 12 grossly intact Psych: calm, cooperative, normal affect Course Course Course Narrative: -patient will be getting IV fluids, insulin -patient has been evaluated multiple times for abdominal pain, likely due to hyperglycemia, diabetic gastroparesis. Patient was discharged 3 days ago from this hospital, patient was prescribed Levaquin, was being treated as colitis even though CT scan was negative. -patient's labs and imaging pending Medical Decision Making Medical Decision Making [facility] Narrative: -CT scan is negative for acute abnormality -anion gap is closed, acetone negative -magnesium of 1.5 was repleted IV with 2 g -patient's glucose is 222 at time of discharge. Differential Diagnosis Differential Diagnoses: The differential diagnosis associated with the presentation includes (Hyperglycemia, gastroparesis, SBO, diverticulitis) Lab Data [facility] Lab Attestation statement: I reviewed the patient's lab results. 03/14/22 23:21 03/14/22 23:21 Labs: Lab Results 03/14/22 03/14/22 03/14/22 Range/Units 21:52 23:21 23:21 WBC 11.4 H (4.8-10.8) X10*3/uL RBC 4.41 L (4.60-5.80) X10*6/uL Hgb 13.3 L (14.0-18.0) g/dl Hct 36.9 L (42.0-52.0) % MCV 83.7 (80.0-98.0) fL MCH 30.2 (27.0-33.0) pg MCHC 36.0 (31.0-36.0) g/dl RDW 11.6 (11.0-16.0) % Plt Count 192 (160-400) X10*3/uL MPV 10.1 (9.4-12.4) fL Immature Gran % (Auto) 0.4 (0.0-0.4) % Neut % (Auto) 74.3 H (45-73) % Lymph % (Auto) 15.7 L (20-40) % [place] % (Auto) 8.8 (2-11) % Eos % (Auto) 0.6 (0-4) % Baso % (Auto) 0.2 (0-2) % Lymph # (Auto) 1.8 (1.2-4.9) X10*3/uL [place] # (Auto) 1.0 (0.1-1.2) X10*3/uL Eos # (Auto) 0.1 (0.0-0.4) X10*3/uL Baso # (Auto) 0.0 (0.0-0.2) X10*3/uL Abs Immat Gran (auto) 0.04 H (0.00-0.03) X10*3/uL Absolute Neuts (auto) 8.4 H (2.0-8.3) x10*3/uL Absolute Nucleated RBC 0.000 (0.0-0.012) X10*3/uL Nucleated RBC % (auto) 0.0 (0.0-0.2) /100WBC Sodium 132 L (135-145) mmol/L Potassium 4.0 (3.3-5.1) mmol/L Chloride 96 (96-108) mmol/L Carbon Dioxide 26 (22-29) mmol/L Anion Gap 14 (12-20) BUN 19 H (9-16) mg/dL Creatinine 3.71 H (0.5-1.4) mg/dL Estim Creat Clear Calc 26.3 Estimated GFR 19 POC Glucose 357 H* (60-115) mg/dL Random Glucose 457 H* (60-115) mg/dL Calcium 8.9 D (8.4-10.2) mg/dL Magnesium 1.5 L (1.6-2.6) mg/dL Total Bilirubin 0.9 (0.0-1.0) mg/dL Direct Bilirubin 0.3 (0.0-0.5) mg/dL AST 28 (5-37) U/L ALT 31 (0-40) U/L Alkaline Phosphatase 79 (39-117) U/L Total Protein 6.0 L (6.5-8.0) g/dL Albumin 3.5 (3.5-5.0) g/dL Lipase 14 (8-78) U/L Acetone, Qual (Negative) 03/14/22 03/15/22 Range/Units 23:21 00:26 WBC (4.8-10.8) X10*3/uL RBC (4.60-5.80) X10*6/uL Hgb (14.0-18.0) g/dl Hct (42.0-52.0) % MCV (80.0-98.0) fL MCH (27.0-33.0) pg MCHC (31.0-36.0) g/dl RDW (11.0-16.0) % Plt Count (160-400) X10*3/uL MPV (9.4-12.4) fL Immature Gran % (Auto) (0.0-0.4) % Neut % (Auto) (45-73) % Lymph % (Auto) (20-40) % [place] % (Auto) (2-11) % Eos % (Auto) (0-4) % Baso % (Auto) (0-2) % Lymph # (Auto) (1.2-4.9) X10*3/uL [place] # (Auto) (0.1-1.2) X10*3/uL Eos # (Auto) (0.0-0.4) X10*3/uL Baso # (Auto) (0.0-0.2) X10*3/uL Abs Immat Gran (auto) (0.00-0.03) X10*3/uL Absolute Neuts (auto) (2.0-8.3) x10*3/uL Absolute Nucleated RBC (0.0-0.012) X10*3/uL Nucleated RBC % (auto) (0.0-0.2) /100WBC Sodium (135-145) mmol/L Potassium (3.3-5.1) mmol/L Chloride (96-108) mmol/L Carbon Dioxide (22-29) mmol/L Anion Gap (12-20) BUN (9-16) mg/dL Creatinine (0.5-1.4) mg/dL Estim Creat Clear Calc Estimated GFR POC Glucose 222 H (60-115) mg/dL Random Glucose (60-115) mg/dL Calcium (8.4-10.2) mg/dL Magnesium (1.6-2.6) mg/dL Total Bilirubin (0.0-1.0) mg/dL Direct Bilirubin (0.0-0.5) mg/dL AST (5-37) U/L ALT (0-40) U/L Alkaline Phosphatase (39-117) U/L Total Protein (6.5-8.0) g/dL Albumin (3.5-5.0) g/dL Lipase (8-78) U/L Acetone, Qual Negative (Negative) Independent Interpretation I performed an independent interpretation of an: CT Scan (My interpretation of abdominal/pelvic CT scan: No acute abnormalities, large amount of stool in the colon) Radiology Impression Discussion of test interpretation with radiology: I have reviewed the radiologist's reading. Radiologist Impression: FINDINGS: LUNG BASES: Minimal right basilar atelectasis. Normal visualized cardiac structures.? LIVER, GALLBLADDER, AND BILIARY TREE: The liver is normal in size, shape, and attenuation. No focal hepatic lesion or biliary ductal dilatation is present. The gallbladder is unremarkable with no evidence of radiopaque gallstones, gallbladder wall thickening, or obvious pericholecystic inflammatory changes.? PANCREAS: Unremarkable.? SPLEEN: Unremarkable.? ADRENAL GLANDS: Unremarkable.? KIDNEYS AND URETERS: The kidneys are normal in size, shape, and attenuation. No hydronephrosis, hydroureter, or calculi seen. No perinephric stranding. ? BLADDER: Unremarkable.? GASTROINTESTINAL TRACT: The stomach is unremarkable. Normal caliber small bowel. No obstruction. No colonic wall thickening or inflammation. Prominent stool in the right hemicolon.? ABDOMINAL WALL: No significant hernia is appreciated.? LYMPH NODES: No pathologic enlargement. Mildly prominent retroperitoneal lymph nodes are present. Similar appearance to prior. VASCULAR: Unremarkable. PELVIC VISCERA: The prostate and seminal vesicles are unremarkable.? OSSEOUS STRUCTURES: No acute or suspicious abnormality.? CT/CT abdomen pelvis wo IV con IMPRESSION: No acute findings in the abdomen or pelvis. No inflammatory changes. Prominent stool in the right hemicolon. ? Medications Administered Generic Name Dose Route Start Last Admin Trade Name Freq PRN Reason Stop Dose Admin Sodium Chloride 2,000 mls @ 999 mls/hr 03/14/22 22:57 03/14/22 23:28 Ns IVCONT 03/15/22 00:57 999 mls/hr .Q2H1M ONE Administration Magnesium Sulfate 2 gm in 50 mls @ 25 mls/hr 03/15/22 00:10 03/15/22 00:19 Magnesium Sulfate/H2o IV 03/15/22 02:09 25 mls/hr ONCE ONE Administration Discontinued Medications Generic Name Dose Route Start Last Admin Trade Name Fremary PRN Reason Stop Dose Admin Insulin Human Regular 10 unit 03/14/22 22:57 03/14/22 23:28 Insulin Regular, Human 100 Unit/Ml 3 Ml Vial IVPUSH 03/14/22 22:58 10 unit ONCE ONE Administration Morphine Sulfate 2 mg 03/14/22 23:05 03/14/22 23:25 Morphine Sulfate 2 Mg/Ml Cartridge IVPUSH 03/14/22 23:06 2 mg ONCE ONE Administration Protocol Ondansetron HCl 4 mg 03/14/22 23:09 03/14/22 23:24 Ondansetron Hcl 4 Mg/2 Ml Vial IVPUSH 03/14/22 23:10 4 mg ONCE ONE Administration Discharge Plan Discharge Clinical Impression: Diabetes type 1, uncontrolled, Diabetic gastroparesis Patient Disposition: Home, Self-Care Instructions: Diabetic Gastroparesis (DC), Diabetic Hyperglycemia (ED) Additional Instructions: Please follow-up with your primary care physician tomorrow. If you have any worsening or new symptoms, please return to the emergency room or call 911 Prescriptions: New metoclopramide HCl 5 mg tablet 5 mg PO DAILY PRN (Reason: nausea and vomiting) Qty: 14 0RF polyethylene glycol 3350 [Miralax] 17 gram/dose powder 17 g PO BID Qty: 238 0RF No Action cholecalciferol (vitamin D3) 50 mcg (2,000 unit) capsule 50 mcg PO DAILY 30 Days Qty: 30 6RF atorvastatin 80 mg tablet 80 mg PO DAILY Qty: 30 6RF ezetimibe [Zetia] 10 mg tablet 10 mg PO DAILY 90 Days Qty: 90 1RF (DME) Omnipod 5 G6 Intro Kit (Gen 5) Cartridge See Rx Instructions .Route Qty: 1 4RF Rx Instructions: As directed (DME) Omnipod 5 G6 Intro Kit (Gen 5) Cartridge See Rx Instructions .Route Qty: 1 4RF Rx Instructions: As directed gabapentin 100 mg capsule 2 cap PO BID metoprolol succinate 50 mg tablet extended release 24 hr 1.5 tab PO DAILY hydralazine 50 mg Tablet 75 mg PO TID Qty: 90 0RF Protocol: Hold for SBP< HOLD for SBP < : 90 valsartan 80 mg tablet 80 mg PO DAILY Qty: 14 0RF insulin glargine [Lantus Solostar U-100 Insulin] 100 unit/mL (3 mL) insulin pen 25 unit subcut BEDTIME nifedipine 60 mg Tablet Extended Release 24hr 60 mg PO DAILY Qty: 30 0RF Protocol: Hold for SBP< HOLD for SBP < : 90 levofloxacin 500 mg tablet 500 mg PO DAILY Qty: 4 0RF oxycodone 5 mg capsule 5 mg PO Q8H PRN (Reason: severe pain (scale score 7-10)) Qty: 10 0RF Rx Instructions: Partial Fill upon patient request. omeprazole 40 mg capsule,delayed release(DR/EC) 40 mg PO DAILY@0630 nortriptyline 50 mg capsule 50 mg PO BEDTIME (DME) pen needle, diabetic [BD Ultra-Fine Shannan Pen Needle] 32 gauge x 5/32 needle See Rx Instructions .ROUTE QID Qty: 50 Rx Instructions: As directed insulin aspart U-100 100 unit/mL (3 mL) insulin pen 4 - 6 sliding scale dose subcut TIDAC Rx Instructions: sliding scale and put inside omnipod insulin pump
[2022-03-14] MEDS: ondansetron HCL 4 MG/2 ML VIAL IVPUSH (23:24)
[2022-03-14] MEDS: Morphine Sulfate 2 MG/ML CARTRIDGE IVPUSH (23:25)
[2022-03-14] MEDS: Insulin Regular, Human 100 UNIT/ML 3 ML VIAL 10 UNIT IVPUSH (23:28)
[2022-03-14] MEDS: 0.9 % Sodium Chloride 2,000 ML 999 ML IVCONT (23:28)
[2022-03-14 23:29] LABS: MANUAL DIFF FLAG NO
[2022-03-14 23:30] LABS: Basophils Percent Auto 0.2 % (0-2); Eosinophils Absolute Auto 0.1 X10*3/uL (0.0-0.4); Eosinophils Percent Auto 0.6 % (0-4); Hematocrit 36.9 % (42.0-52.0); Hemoglobin 13.3 g/dl (14.0-18.0); Imm Gran Abs Auto 0.04 X10*3/uL (0.00-0.03); Imm Gran Pct Auto 0.4 % (0.0-0.4); Lymphocytes Absolute Auto 1.8 X10*3/uL (1.2-4.9); Lymphocytes Percent Auto 15.7 % (20-40); Mean Corpuscular Hemoglobin 30.2 pg (27.0-33.0); Mean Corpuscular Volume 83.7 fL (80.0-98.0); Mean Platelet Volume 10.1 fL (9.4-12.4); Monocytes Percent Auto 8.8 % (2-11); Neutrophils Absolute Auto 8.4 x10*3/uL (2.0-8.3); Neutrophils Percent Auto 74.3 % (45-73); Platelet Count 192 X10*3/uL (160-400); Red Blood Count 4.41 X10*6/uL (4.60-5.80); Red Cell Distribution Width 11.6 % (11.0-16.0); White Blood Count 11.4 X10*3/uL (4.8-10.8)
--- NOTE | 2022-03-14 23:38 | PC.NURSE ---
PT A&Ox3, reports 10/10 LLQ pain increasing since yesterday with V/D. States pain is constant with pressure. Reports last BM this AM. POC 357. Meds given as documented. Labs collected and sent to lab.
[2022-03-14 23:48] LABS: Acetone, serum QL Negative (Negative)
[2022-03-14 23:57] LABS: Alanine Aminotransferase 31 U/L (0-40); Albumin Level 3.5 g/dL (3.5-5.0); Alkaline Phosphatase 79 U/L (39-117); Anion Gap 14 (12-20); Aspartate Amino Transferase 28 U/L (5-37); Bilirubin Direct 0.3 mg/dL (0.0-0.5); Bilirubin Total 0.9 mg/dL (0.0-1.0); Blood Urea Nitrogen 19 mg/dL (9-16); Calcium 8.9 mg/dL (8.4-10.2); Carbon Dioxide 26 mmol/L (22-29); Chloride 96 mmol/L (96-108); Creatinine Clr Calc Pharmacy 26.3; Estimated Glomerular Filt Rate 19; Glucose Random 457 mg/dL (60-115); Lipase 14 U/L (8-78); Magnesium 1.5 mg/dL (1.6-2.6); Sodium 132 mmol/L (135-145)
[2022-03-15] MEDS: Magnesium Sulfate/H2O 2 GM/50 ML PIGGYBACK IV (00:19)
[2022-03-15 00:29] VITALS: BP 173/104; RESP 19; O2SAT 97
[2022-03-15 00:34] LABS: Glucose, Whole Blood 222 mg/dL (60-115)
== END 2022-03-15 02:50 | disposition home or self-care (01) ==
PROVIDERS: Emergency Provider Emergency Medicine; PCP Internal Medicine Geriatric Medicine
DX: R10.32 Left lower quadrant pain (principal); R07.9 Chest pain, unspecified; E10.43 Type 1 diabetes mellitus with diabetic autonomic (poly)neuropathy; E10.65 Type 1 diabetes mellitus with hyperglycemia; K31.84 Gastroparesis; E10.22 Type 1 diabetes mellitus with diabetic chronic kidney disease; I12.9 Hypertensive chronic kidney disease with stage 1 through stage 4 chronic kidney disease, or unspecified chronic kidney disease; Z96.41 Presence of insulin pump (external) (internal); N18.30 Chronic kidney disease, stage 3 unspecified
CPT/HCPCS: 36415; 74176; 80048; 80076; 82009; 82947; 83690; 83735; 85025; 96361; 96374; 96375; 99284; J2270; J2405; J3475

== ENCOUNTER 2022-03-16 16:59 | Inpatient (IN) | payer MEDICAID, SELFPAY ==
--- NOTE | ~2022-03-16 | NM_ITS ---
EXAMINATION: WA RADIONUCLIDE SOLID FOOD GASTRIC EMPTYING 4-HOUR STUDY CLINICAL INFORMATION: Gastroparesis, acid reflux, ?diabetes. Gastritis, nausea and vomiting COMPARISON: Gastric emptying study 05/09/2020. TECHNIQUE: A standard meal consisting of 4 oz of Egg Beaters brand tagged with 0.87 microcuries Tc-99m Sulfur Colloid, 8 oz water and 2 slices of toast with jelly was administered orally to the patient. Images were obtained using a dual head gamma camera in the anterior and posterior projections over of the stomach immediately post ingestion and at hourly intervals up to 4 hours post ingestion. The anterior and posterior counts at each time interval were averaged using the geometric mean and expressed as percentage of the immediate post ingestion counts. FINDINGS: There is good visualization of activity in the stomach immediately post ingestion. As the study progresses, there is good clearance of activity from the stomach and visualization of progressively increasing small bowel activity. By the end of the study, there is almost no retention noted in the stomach. Retention in the stomach at each time interval was: 1 hour 5% (normal 37%-90%) previous 57% 2 hours 4% (normal 30%-60%) previous 31% 3 hours 1 % previous 5%. 4 hours 1 (normal 0%-10%) previous 4% WA/WA gastric emptying study IMPRESSION: Rapid 4 hour solid food gastric emptying study. Drastic change compared with previous study 05/09/2020
--- NOTE | ~2022-03-16 | XR_ITS ---
EXAMINATION: XR ABDOMEN KUB CLINICAL INDICATION: Constipation COMPARISON: None TECHNIQUE: AP view of the abdomen. FINDINGS: The bowel gas pattern is normal with no evidence of ileus or obstruction. No unusual soft tissue calcifications are noted. The bones are unremarkable. XR/XR KUB IMPRESSION: Unremarkable examination. No significant stool retention.
--- NOTE | 2022-03-16 17:11 | ED.ABDPAIN ---
HPI - Abdominal Pain General Chief Complaint: General Medical Stated Complaint: ABDOMINAL PAIN Time Seen by Provider: 03/16/22 17:05 Source: patient Mode of arrival: ambulatory Limitations: no limitations History of Present Illness HPI narrative: This is a 36-year-old male history of CKD stage 4, hypertensive urgency, diabetic ketoacidosis, opiate use disorder, toxic encephalopathy, diabetes presenting to the emergency department with nausea, vomiting, weakness, inability to tolerate p.o., severe abdominal pain times 2-3 days worsening. Patient tells me that the abdominal pain is localized to the epigastric and left upper quadrant region he tells me it is constant severe in nature as a difficult time explaining with the pain feels like. He tells me is unable to tolerate any solid foods, he is trying to drink liquids however is having a difficult time as he ends up vomiting. Patient tells me it is bilious vomit. He reports he feels awful. He tells me was recently in the hospital and they are able to find out what was wrong with him. Patient denies sick contacts. Denies fevers, chills, chest pain, shortness of breath, headache, vision changes, dizziness. Related Data Home Medications Medication Instructions Recorded Confirmed nortriptyline 50 mg capsule 50 mg PO BEDTIME 01/04/20 03/08/22 omeprazole 40 mg capsule,delayed 40 mg PO DAILY@0630 01/04/20 03/08/22 release pen needle, diabetic 32 gauge x #50 ea 07/12/21 07/12/21/32 (BD Ultra-Fine Shannan Pen Needle) gabapentin 100 mg capsule 2 cap PO BID 07/29/21 03/08/22 metoprolol succinate 50 mg 1.5 tab PO DAILY 07/29/21 03/08/22 tablet,extended release 24 hr insulin aspart U-100 100 unit/mL 4 - 6 sliding scale dose subcut 12/27/21 03/08/22 (3 mL) subcutaneous pen TIDAC insulin glargine 100 unit/mL (3 25 unit subcut BEDTIME 03/08/22 03/08/22 mL) subcutaneous pen (Lantus Solostar U-100 Insulin) Previous Rx's Medication Instructions Recorded cholecalciferol (vitamin D3) 50 50 mcg PO DAILY 30 days #30 caps 04/05/20 mcg (2,000 unit) capsule atorvastatin 80 mg tablet 80 mg PO DAILY #30 tabs 12/12/20 ezetimibe 10 mg tablet (Zetia) 10 mg PO DAILY 90 days #90 tabs 07/05/21 hydralazine 50 mg tablet 75 mg PO TID #90 tabs 08/09/21 insulin pump cartridge,automated #1 ea 02/19/22 dose,BT with controller subcutaneous (Omnipod 5 G6 Intro Kit (Gen 5) subcutaneous cartridge with controller) insulin pump cartridge,automated #1 ea 02/19/22 dose,BT with controller subcutaneous (Omnipod 5 G6 Intro Kit (Gen 5) subcutaneous cartridge with controller) valsartan 80 mg tablet 80 mg PO DAILY #14 tabs 03/08/22 levofloxacin 500 mg tablet 500 mg PO DAILY #4 tabs 03/11/22 nifedipine 60 mg tablet,extended 60 mg PO DAILY #30 tabs 03/11/22 release 24 hr oxycodone 5 mg capsule 5 mg PO Q8H PRN severe pain (scale 03/12/22 score 7-10) #10 caps metoclopramide HCl 5 mg tablet 5 mg PO DAILY PRN nausea and 03/15/22 vomiting #14 tabs polyethylene glycol 3350 17 17 g PO BID #238 grams 03/15/22 gram/dose oral powder (Miralax) Allergies Allergy/AdvReac Type Severity Reaction Status Date / Time gluten Allergy Gastrointestinal Verified 12/27/21 09:56 Upset losartan Allergy Gastrointestinal Verified 01/29/22 13:40 Upset Review of Systems Review of Systems Constitutional : No Weight loss, No Fever, No Chills, No Fatigue, No Malaise ENT/Mouth : No sore throat, No Rhinorrhea Eyes: No Eye Pain, No Swelling, No Redness Cardiovascular : No Chest Pain, No SOB, No Dyspnea on Exertion, No Orthopnea, No Edema, No Palpitations Respiratory : No Cough, No Sputum, No Wheezing Gastrointestinal : + Nausea, + Vomiting, No Diarrhea, No Constipation, + abdominal Pain, No Hematochezia, No Melena Genitourinary : No Dysuria, No Urinary Frequency, No Hematuria, Musculoskeletal : No joint pain, No Myalgias, No Joint Swelling Skin : No Skin Lesions, No rash Neuro : No Weakness, No Numbness, No Dizziness, No Headache Psych : No Anxiety/Panic, No Depression All other systems reviewed and are negative Yes all other systems are reviewed and are negative [facility] Past Medical History Attestation statement: The following information was validated with the patient. Source: old records reviewed and nursing notes reviewed Medical History Abdominal pain Acid reflux Acute hyperkalemia Acute on chronic kidney failure Chronic kidney disease, stage 3 Diabetes type 1, uncontrolled Diabetic ketoacidosis 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 Diabetic polyneuropathy associated with type 1 diabetes mellitus Diabetic visual loss, with retinopathy, associated with type 1 diabetes mellitus Essential hypertension Gastritis Hemangioma of liver Hyperglycemia due to type 1 diabetes mellitus Hyperkalemia Hyperlipidemia LDL goal <70 Hypertension associated with diabetes Hypertensive urgency Hypocalcemia Hyponatremia Lactic acidosis due to diabetes mellitus Legally blind Pancreatitis Polyneuropathy Pulmonary edema Respiratory failure Sciatica Type 1 diabetes Vitamin D deficiency Surgical History Hx of appendectomy Hx of circumcision Hx of endoscopy Hx of eye surgery Family History Family History Father Diabetes mellitus Mother Diabetes mellitus Maternal Grandfather Diabetes mellitus Maternal Grandmother Diabetes mellitus Social History Social History Household Members: Spouse and Children Household Members Other:: and girlfriend Housing: Apartment Do you presently have visiting nurse or other home services: No Unable to assess alcohol history related to: Unknown Alcohol intake: never Patient Tobacco Use Status: Former Tobacco user Smoked in Last 30 Days: No Second Hand Smoke Exposure: No Substance Use Type: Marijuana Advance Directives: Yes Advance Directives on File: Yes Advance Directives Date on File: 04/13/20 service: No Current occupational status: disabled Physical Exam ED Vital Signs: Vital Signs - 24 hr 03/16/22 17:14 03/16/22 18:48 03/16/22 19:01 Temperature 98.6 F Pulse Rate 112 H 101 H 107 H Respiratory Rate 18 18 15 Blood Pressure 177/112 H 168/104 H 171/109 H Pulse Oximetry 97 97 99 Oxygen Delivery Method Room Air Room Air Room Air BMI result Body Mass Index 25.9 Patient hypertensive and tachycardic likely secondary to pain Appearance: Alert.? Oriented X3.? No acute distress.? Head: Normocephalic, atraumatic, no step-offs or deformities Eyes: Pupils equal, round and reactive to light.? CVS: Rapid rate normal rhythm..? Pulses normal.? Respiratory: No respiratory distress.? Breath sounds normal.? Abdomen: Soft and left upper quadrant epigastric region.? Skin: Skin warm and dry.? Normal skin color.? Normal skin turgor.? Extremities: No lower extremity edema.? No calf ttp. 5/5 strength to bilateral upper and lower extremities Back: No midline tenderness, no C-spine tenderness, full range of motion, no CVA tenderness bilaterally Neuro: Oriented X 3.? No motor deficit.? No sensory deficit. CN 2-12 intact Course Reevaluation(s) Reevaluation #1: CBC within normal limits. Chemistry with KAYODE however improved from 03/15/2022 no other electrolyte abnormalities. Patient's random glucose 334 insulin ordered and fluids. Lipase within normal limits, unlikley pancreatitis. COVID, Flu negative. Patients VBG w/o acidosis, acetone negative unlikley DKA. Patient continues to report severe abdominal pain, nausea and vomiting and is not tolerating p.o.. Likely severe gastroparesis secondary to diabetes. Plan is to admit patient to the hospital as he is not tolerating p.o. and is still very nauseous all with severe pain. Will speak to hospitalist at this time. Time: 19:09 Medical Decision Making Medical Decision Making [facility] Narrative: 1712 36-year-old male presents with nausea, vomiting, severe abdominal pain in the epigastric and left upper quadrant times few days worsening. Upon chart review it appears as though patient was seen here on 03/14/2022, at that time he had a normal CT of the abdomen and pelvis. He did have prominent stool in the right hemicolon. Patient reports normal bowel movements. At that time patient also had an elevated glucose level was given fluids and insulin, he is also noted to have an KAYODE, BUN of 19, creatinine 3.71. Was discharged home with metoclopramide 5 mg tablet for nausea and vomiting and MiraLax. Diagnosis at discharge was diabetic gastroparesis and diabetic hyperglycemia. Physical examination with pain to palpation to epigastric region and left upper quadrant, rapid rate normal rhythm likely sinus tachycardia. Patient hypertensive and tachycardia likely secondary to pain. Concerns for possible pancreatitis, diabetic ketoacidosis, diabetic gastroparesis, gastritis. Unlikely he has acute abdomen, small-bowel obstruction, large-bowel obstruction, cholecystitis, appendicitis, diverticulitis. Plan at this time labs, urine, a KUB, VBG, acetone, will not obtain another CT as patient had 1 done on 03/14/2022 which was negative. Differential Diagnosis Differential Diagnoses: The differential diagnosis associated with the presentation includes Concerns for possible pancreatitis, diabetic ketoacidosis, diabetic gastroparesis, gastritis. Unlikely he has acute abdomen, small-bowel obstruction, large-bowel obstruction, cholecystitis, appendicitis, diverticulitis. Admission/Observation Consideration of admission/observation: Escalation of care including admission/observation considered Lab Data MDM Lab Attestation statement: I reviewed the patient's lab results. 03/16/22 17:33 03/16/22 17:33 Labs: Lab Results 03/16/22 03/16/22 03/16/22 Range/Units 17:33 17:33 17:33 WBC 10.7 (4.8-10.8) X10*3/uL RBC 4.79 (4.60-5.80) X10*6/uL Hgb 14.2 (14.0-18.0) g/dl Hct 40.4 L (42.0-52.0) % MCV 84.3 (80.0-98.0) fL MCH 29.6 (27.0-33.0) pg MCHC 35.1 (31.0-36.0) g/dl RDW 11.6 (11.0-16.0) % Plt Count 251 D (160-400) X10*3/uL MPV 9.7 (9.4-12.4) fL Immature Gran % (Auto) 0.4 (0.0-0.4) % Neut % (Auto) 73.0 (45-73) % Lymph % (Auto) 15.5 L (20-40) % Brule % (Auto) 10.3 (2-11) % Eos % (Auto) 0.5 (0-4) % Baso % (Auto) 0.3 (0-2) % Lymph # (Auto) 1.7 (1.2-4.9) X10*3/uL Brule # (Auto) 1.1 (0.1-1.2) X10*3/uL Eos # (Auto) 0.1 (0.0-0.4) X10*3/uL Baso # (Auto) 0.0 (0.0-0.2) X10*3/uL Abs Immat Gran (auto) 0.04 H (0.00-0.03) X10*3/uL Absolute Neuts (auto) 7.8 (2.0-8.3) x10*3/uL Absolute Nucleated RBC 0.000 (0.0-0.012) X10*3/uL Nucleated RBC % (auto) 0.0 (0.0-0.2) /100WBC VBG pH (7.32-7.43) VBG pCO2 mmHg VBG pO2 mmHg VBG HCO3 (22-26) mmol/L VBG O2 Saturation % VBG Base Excess mmol/L Sodium 135 (135-145) mmol/L Potassium 4.2 (3.3-5.1) mmol/L Chloride 97 (96-108) mmol/L Carbon Dioxide 26 (22-29) mmol/L Anion Gap 16 (12-20) BUN 11 (9-16) mg/dL Creatinine 3.47 H (0.5-1.4) mg/dL Estim Creat Clear Calc 28.1 Estimated GFR 20 Random Glucose 334 H (60-115) mg/dL Calcium 8.8 (8.4-10.2) mg/dL Magnesium 2.0 (1.6-2.6) mg/dL Total Bilirubin 0.5 (0.0-1.0) mg/dL AST 16 (5-37) U/L ALT 21 (0-40) U/L Alkaline Phosphatase 92 (39-117) U/L Total Protein 6.1 L (6.5-8.0) g/dL Albumin 3.5 (3.5-5.0) g/dL Lipase 12 (8-78) U/L Acetone, Qual (Negative) COVID-19 (SAIBNE) Negative (Negative) COVID-19 Clin Com See Note Influenza Type A (STAN) (Negative) Influenza Type B (STAN) (Negative) Influenza A & B Note 03/16/22 03/16/22 03/16/22 Range/Units 17:33 17:33 17:35 WBC (4.8-10.8) X10*3/uL RBC (4.60-5.80) X10*6/uL Hgb (14.0-18.0) g/dl Hct (42.0-52.0) % MCV (80.0-98.0) fL MCH (27.0-33.0) pg MCHC (31.0-36.0) g/dl RDW (11.0-16.0) % Plt Count (160-400) X10*3/uL MPV (9.4-12.4) fL Immature Gran % (Auto) (0.0-0.4) % Neut % (Auto) (45-73) % Lymph % (Auto) (20-40) % Brule % (Auto) (2-11) % Eos % (Auto) (0-4) % Baso % (Auto) (0-2) % Lymph # (Auto) (1.2-4.9) X10*3/uL Brule # (Auto) (0.1-1.2) X10*3/uL Eos # (Auto) (0.0-0.4) X10*3/uL Baso # (Auto) (0.0-0.2) X10*3/uL Abs Immat Gran (auto) (0.00-0.03) X10*3/uL Absolute Neuts (auto) (2.0-8.3) x10*3/uL Absolute Nucleated RBC (0.0-0.012) X10*3/uL Nucleated RBC % (auto) (0.0-0.2) /100WBC VBG pH 7.47 H (7.32-7.43) VBG pCO2 42 mmHg VBG pO2 88 mmHg VBG HCO3 30 H (22-26) mmol/L VBG O2 Saturation 98.0 % VBG Base Excess 6.5 mmol/L Sodium (135-145) mmol/L Potassium (3.3-5.1) mmol/L Chloride (96-108) mmol/L Carbon Dioxide (22-29) mmol/L Anion Gap (12-20) BUN (9-16) mg/dL Creatinine (0.5-1.4) mg/dL Estim Creat Clear Calc Estimated GFR Random Glucose (60-115) mg/dL Calcium (8.4-10.2) mg/dL Magnesium (1.6-2.6) mg/dL Total Bilirubin (0.0-1.0) mg/dL AST (5-37) U/L ALT (0-40) U/L Alkaline Phosphatase (39-117) U/L Total Protein (6.5-8.0) g/dL Albumin (3.5-5.0) g/dL Lipase (8-78) U/L Acetone, Qual Negative (Negative) COVID-19 (SABINE) (Negative) COVID-19 Clin Com Influenza Type A (STAN) Negative (Negative) Influenza Type B (STAN) Negative (Negative) Influenza A & B Note See Note Independent Interpretation I performed an independent interpretation of an: Plain X-Ray Radiology Impression Discussion of test interpretation with radiology: I have reviewed the radiologist's reading. Chronic Conditions Patient?s care impacted by: Diabetes and Hypertension Core Measures AMI core measures followed: Yes Measure exclusions: not indicated Medications Administered Discontinued Medications Generic Name Dose Route Start Last Admin Trade Name Freq PRN Reason Stop Dose Admin Al Hydroxide/Mg Hydroxide 30 ml 03/16/22 17:05 03/16/22 17:39 Magnesium Hydrox/Alum Hydrox 30 Ml Oral.Susp PO 03/16/22 17:06 30 ml ONCE ONE Administration Diphenhydramine HCl 25 mg 03/16/22 17:51 03/16/22 17:59 Diphenhydramine Hcl 50 Mg/Ml Vial IVPUSH 03/16/22 17:52 25 mg ONCE ONE Administration Sodium Chloride 1,000 mls @ 999 mls/hr 03/16/22 17:15 03/16/22 19:04 Ns IV 03/16/22 18:15 Infused .Q1H1M OKSANA Infusion Metoclopramide HCl 10 mg 03/16/22 17:51 03/16/22 17:59 Metoclopramide Hcl 10 Mg/2 Ml Vial IVPUSH 03/16/22 17:52 10 mg ONCE ONE Administration Morphine Sulfate 4 mg 03/16/22 17:05 03/16/22 17:39 Morphine Sulfate 4 Mg/Ml Cartridge IVPUSH 03/16/22 17:06 4 mg ONCE ONE Administration Protocol Critical Care Time Critical Care Time Critical Care Time: No Discharge Plan Discharge Clinical Impression: Diabetic gastroparesis, Abdominal pain, Nausea & vomiting Patient Disposition: Admitted As Inpatient Prescriptions: No Action cholecalciferol (vitamin D3) 50 mcg (2,000 unit) capsule 50 mcg PO DAILY 30 Days Qty: 30 6RF atorvastatin 80 mg tablet 80 mg PO DAILY Qty: 30 6RF ezetimibe [Zetia] 10 mg tablet 10 mg PO DAILY 90 Days Qty: 90 1RF (DME) Omnipod 5 G6 Intro Kit (Gen 5) Cartridge See Rx Instructions .Route Qty: 1 4RF Rx Instructions: As directed (DME) Omnipod 5 G6 Intro Kit (Gen 5) Cartridge See Rx Instructions .Route Qty: 1 4RF Rx Instructions: As directed gabapentin 100 mg capsule 2 cap PO BID metoprolol succinate 50 mg tablet extended release 24 hr 1.5 tab PO DAILY hydralazine 50 mg Tablet 75 mg PO TID Qty: 90 0RF Protocol: Hold for SBP< HOLD for SBP < : 90 valsartan 80 mg tablet 80 mg PO DAILY Qty: 14 0RF insulin glargine [Lantus Solostar U-100 Insulin] 100 unit/mL (3 mL) insulin pen 25 unit subcut BEDTIME nifedipine 60 mg Tablet Extended Release 24hr 60 mg PO DAILY Qty: 30 0RF Protocol: Hold for SBP< HOLD for SBP < : 90 levofloxacin 500 mg tablet 500 mg PO DAILY Qty: 4 0RF oxycodone 5 mg capsule 5 mg PO Q8H PRN (Reason: severe pain (scale score 7-10)) Qty: 10 0RF Rx Instructions: Partial Fill upon patient request. metoclopramide HCl 5 mg tablet 5 mg PO DAILY PRN (Reason: nausea and vomiting) Qty: 14 0RF polyethylene glycol 3350 [Miralax] 17 gram/dose powder 17 g PO BID Qty: 238 0RF omeprazole 40 mg capsule,delayed release(DR/EC) 40 mg PO DAILY@0630 nortriptyline 50 mg capsule 50 mg PO BEDTIME (DME) pen needle, diabetic [BD Ultra-Fine Shannan Pen Needle] 32 gauge x 5/32 needle See Rx Instructions .ROUTE QID Qty: 50 Rx Instructions: As directed insulin aspart U-100 100 unit/mL (3 mL) insulin pen 4 - 6 sliding scale dose subcut TIDAC Rx Instructions: sliding scale and put inside omnipod insulin pump
[2022-03-16 17:14] VITALS: BP 170/94; BP 177/112; PULSE 112; RESP 18; TEMP 37; O2SAT 97; BMI 25.9
[2022-03-16 17:38] LABS: MANUAL DIFF FLAG NO
[2022-03-16 17:39] LABS: Basophils Percent Auto 0.3 % (0-2); Eosinophils Absolute Auto 0.1 X10*3/uL (0.0-0.4); Eosinophils Percent Auto 0.5 % (0-4); Hematocrit 40.4 % (42.0-52.0); Hemoglobin 14.2 g/dl (14.0-18.0); Imm Gran Abs Auto 0.04 X10*3/uL (0.00-0.03); Imm Gran Pct Auto 0.4 % (0.0-0.4); Lymphocytes Absolute Auto 1.7 X10*3/uL (1.2-4.9); Lymphocytes Percent Auto 15.5 % (20-40); Mean Corpuscular HGB Conc 35.1 g/dl (31.0-36.0); Mean Corpuscular Hemoglobin 29.6 pg (27.0-33.0); Mean Corpuscular Volume 84.3 fL (80.0-98.0); Mean Platelet Volume 9.7 fL (9.4-12.4); Monocytes Absolute Auto 1.1 X10*3/uL (0.1-1.2); Monocytes Percent Auto 10.3 % (2-11); Neutrophils Absolute Auto 7.8 x10*3/uL (2.0-8.3); Platelet Count 251 X10*3/uL (160-400); Red Blood Count 4.79 X10*6/uL (4.60-5.80); Red Cell Distribution Width 11.6 % (11.0-16.0); White Blood Count 10.7 X10*3/uL (4.8-10.8)
[2022-03-16] MEDS: 0.9 % Sodium Chloride 1,000 ML 999 ML IV ×2 (17:39→20:45)
[2022-03-16] MEDS: Morphine Sulfate 4 MG/ML CARTRIDGE IVPUSH ×2 (17:39→20:38)
[2022-03-16] MEDS: Magnesium Hydrox/Alum Hydrox 30 ML ORAL.SUSP PO (17:39)
[2022-03-16 17:42] LABS: Venous Blood Gas Refer to POC result
[2022-03-16 17:43] LABS: VBG Base Excess 6.5 mmol/L; VBG HCO3 30 mmol/L (22-26); VBG pCO2 42 mmHg; VBG pH 7.47 (7.32-7.43); VBG pO2 88 mmHg
[2022-03-16 17:52] LABS: Acetone, serum QL Negative (Negative)
[2022-03-16 17:55] LABS: Alanine Aminotransferase 21 U/L (0-40); Albumin Level 3.5 g/dL (3.5-5.0); Alkaline Phosphatase 92 U/L (39-117); Anion Gap 16 (12-20); Aspartate Amino Transferase 16 U/L (5-37); Bilirubin Total 0.5 mg/dL (0.0-1.0); Blood Urea Nitrogen 11 mg/dL (9-16); Calcium 8.8 mg/dL (8.4-10.2); Carbon Dioxide 26 mmol/L (22-29); Chloride 97 mmol/L (96-108); Creatinine Clr Calc Pharmacy 28.1; Estimated Glomerular Filt Rate 20; Glucose Random 334 mg/dL (60-115); Lipase 12 U/L (8-78); Potassium 4.2 mmol/L (3.3-5.1); Sodium 135 mmol/L (135-145); Total Protein 6.1 g/dL (6.5-8.0)
[2022-03-16] MEDS: Metoclopramide HCl 10 MG/2 ML VIAL IVPUSH (17:59)
[2022-03-16] MEDS: diphenhydrAMINE HCL 50 MG/ML VIAL 25 MG IVPUSH (17:59)
--- NOTE | 2022-03-16 18:05 | PC.NURSE ---
patient assessed with use of tap and die maker technician primary language Slovenian . patient assessed with use of tap and die maker technician .Patient blind . heart rate regular at 112 beats per minute . breathing even even and labored . skin pink warm and moist . abdomen distended , rebound tenderness noted left side . patient guarding . reports 10 out of 10 pain . patient placed on ekg monitor . IV placed in right AC . labs obtained and sent . patient medicated with morphine for reported pain . patient had episode of vomiting after being medicated with Maalox . provider made aware , patient medicated with Reglan and Benadryl IVP. Normal saline started as ordered . patient and family aware of plan of care .
[2022-03-16 18:17] LABS: COVID-19 Test Negative (Negative); IDNOW Serial# 55D5AD1C
[2022-03-16 18:18] LABS: IDNOW Serial# 9DB6401D; Influenza A Negative (Negative); Influenza B2 Negative (Negative)
[2022-03-16 18:48] VITALS: BP 168/104; PULSE 101; RESP 18; O2SAT 97
[2022-03-16 19:01] VITALS: BP 171/109; PULSE 107; RESP 15; O2SAT 99
--- NOTE | 2022-03-16 20:17 | PM.IMHP ---
History of Present Illness Date of Service: 03/16/22 Attending physician on admission: Fred Lockhart Chief Complaint: nausea, vomiting, abd pain 36-year-old male with history of uncontrolled type 1 diabetes with hyperglycemia, diabetic nephropathy with CKD stage 4, diabetic retinopathy with blindness, diabetic polyneuropathy, GERD, hypertension, hyperlipidemia, history pancreatitis, history diabetic ketoacidosis presented to the ED earlier today for evaluation of nausea, vomiting, generalized weakness, decreased p.o. tolerance, and severe epigastric pain which started earlier this morning. He states the pain has been constant and he has vomited 4 times today with bilious content. He denies any fevers, chills, diarrhea, headaches, shortness of breath, lightheadedness, palpitations, chest pain. He denies any sick contacts or recent illness. In ED, patient has been tachycardic to 112, hypertensive to 177/112. No leukocytosis. Creatinine baseline at 3.47, BUN 11, electrolyte levels normal, glucose 334, hemoglobin A1c pending. Lipase 12. AST, ALT normal. Acetone negative. KUB unremarkable. Has presented to the ED multiple times over the last week with 3 CT scans of the abdomen/pelvis most recently on 03/14 which was negative for any acute findings in the abdomen or pelvis or any inflammatory changes, recently discharged on 03/08 for diabetic ketoacidosis. In the ED, patient given 1 L IV NS bolus, 25 mg Benadryl, 4 mg morphine, 10mg metoclopramide, and 30ML maalox. Hx MJ use, but denies any recent use in several months. Denies any illicit drug or alcohol use. Review of Systems Review of Systems: General: No fevers, malaise, unintentional weight loss Cardiovascular: No chest pain, palpitations, or leg edema Respiratory: No shortness of breath, wheezing, cough GI: +epigastric pain, +nausea, +vomiting. No diarrhea, constipation, melena, hematochezia : No dysuria, hematuria, increased urinary frequency, decreased urinary output MSK: No myalgia, back pain Neuro: No headaches, weakness, paresthesias Skin: No rashes or lesions PMFSH Medical History Acid reflux Acute hyperkalemia Acute on chronic kidney failure Background diabetic retinopathy associated with type 2 diabetes mellitus Diabetic ketoacidosis 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 Diabetic polyneuropathy associated with type 1 diabetes mellitus Diabetic visual loss, with retinopathy, associated with type 1 diabetes mellitus Essential hypertension Gastritis Hemangioma of liver Hyperglycemia due to type 1 diabetes mellitus Hyperkalemia Hyperlipidemia LDL goal <70 Hypertension associated with diabetes Hypertensive urgency Hypocalcemia Hyponatremia Lactic acidosis due to diabetes mellitus Legally blind Opioid overdose Pancreatitis Polyneuropathy Pulmonary edema Respiratory failure Sciatica Toxic encephalopathy Type 1 diabetes Vitamin D deficiency Withdrawal from recreational drug Family History Father Diabetes mellitus Mother Diabetes mellitus Maternal Grandfather Diabetes mellitus Maternal Grandmother Diabetes mellitus Surgical History Hx of appendectomy Hx of circumcision Hx of endoscopy Hx of eye surgery Social History (Updated 03/16/22 @ 20:27 by AJITH Luna) Household Members: Spouse and Children Household Members Other:: and girlfriend Housing: Apartment Do you presently have visiting nurse or other home services: No Alcohol intake: never Patient Tobacco Use Status: Former Tobacco user Smoked in Last 30 Days: No Second Hand Smoke Exposure: No Substance Use Type: Marijuana Advance Directives: Yes Advance Directives on File: Yes Advance Directives Date on File: 04/13/20 service: No Current occupational status: disabled Meds Allergies Allergy/AdvReac Type Severity Reaction Status Date / Time gluten Allergy Gastrointestinal Verified 12/27/21 09:56 Upset losartan Allergy Gastrointestinal Verified 01/29/22 13:40 Upset Active Medications: Current Medications Dextrose (Dextrose 50 % 25 Gm/50 Ml Syringe) 25 gm IVPUSH Q15M PRN; Protocol PRN Reason: per Hypoglycemia Standing Ord. Glucose (Glucose Gel 15 Gm Gel..Gram.) 15 gm PO Q15M PRN; Protocol PRN Reason: per Hypoglycemia Standing Ord. Insulin Glargine (Insulin Glargine,Hum.Rec.Anlog 100 Unit/Ml 10 Ml Vial) 26 unit SUBCUT BEDTIME [place] Insulin Human Lispro (Insulin Lispro 100 Unit/Ml 3 Ml Vial) 0 unit SUBCUT Q6H [place]; Protocol Melatonin (Melatonin 3 Mg Tablet) 6 mg PO BEDTIME PRN PRN Reason: Insomnia Morphine Sulfate (Morphine Sulfate 4 Mg/Ml Cartridge) 4 mg IVPUSH Q4H PRN; Protocol PRN Reason: Pain, Severe (Pain Scale 7-10) Ondansetron HCl (Ondansetron Hcl 4 Mg/2 Ml Vial) 4 mg IVPUSH Q8H PRN PRN Reason: Nausea and Vomiting Pharmacy Consult (Consult Rx Perform Med Rec) 1 each MISCELLANE ONCE PRN PRN Reason: Consult order Sodium Chloride (0.9 % Sodium Chloride Flush 3 Ml Syringe) 3 ml IVFLUSH [facility] Medications Medication Instructions Recorded Confirmed Last Taken Type nortriptyline 50 mg capsule 50 mg PO BEDTIME 01/04/20 03/08/22 03/06/22 History omeprazole 40 mg capsule,delayed 40 mg PO DAILY@0630 01/04/20 03/08/22 03/06/22 History release pen needle, diabetic 32 gauge x #50 ea 07/12/21 07/12/21 Unknown History (BD Ultra-Fine Shannan Pen Needle) gabapentin 100 mg capsule 2 cap PO BID 07/29/21 03/08/22 03/06/22 History metoprolol succinate 50 mg 1.5 tab PO DAILY 07/29/21 03/08/22 03/06/22 History tablet,extended release 24 hr insulin aspart U-100 100 unit/mL 4 - 6 sliding scale dose subcut 12/27/21 03/08/22 03/07/22 History (3 mL) subcutaneous pen TIDAC insulin glargine 100 unit/mL (3 25 unit subcut BEDTIME 03/08/22 03/08/22 03/07/22 History mL) subcutaneous pen (Lantus Solostar U-100 Insulin) Physical Exam Vital Signs and Narrative: Vital Signs: Last Vital Signs Temp 98.6 F 03/16/22 17:14 Pulse 107 H 03/16/22 19:01 Resp 15 03/16/22 19:01 BP 171/109 H 03/16/22 19:01 Pulse Ox 99 03/16/22 19:01 O2 Del Method 03/16/22 19:01 BMI result Body Mass Index 25.9 Constitutional - Awake and Alert, No apparent distress Eyes - PERRLA, EOMI Mouth- tongue/lips dry Cardiovascular - S1S2, RRR, No edema Respiratory - Normal lung expansion, Normal respiratory effort, No respiratory distress, CTA bilaterally Gastrointestinal - epigastric and LUQ ttp with guarding, no rebound. ND; +BS Extremities - no calf tenderness bilaterally, no swelling Skin - Warm/Dry Neurological - Alert & oriented x3, 5/5 strength BUE and BLE Psychological - Appropriate affect Results Labs 03/16/22 17:33 03/16/22 17:33 Labs: Laboratory Results - last 24 hr 03/16/22 03/16/22 03/16/22 17:33 17:33 17:33 MCV 84.3 MCH 29.6 MCHC 35.1 RDW 11.6 Plt Count 251 D MPV 9.7 Immature Gran % (Auto) 0.4 Neut % (Auto) 73.0 Lymph % (Auto) 15.5 L [place] % (Auto) 10.3 Eos % (Auto) 0.5 Baso % (Auto) 0.3 Lymph # (Auto) 1.7 [place] # (Auto) 1.1 Eos # (Auto) 0.1 Baso # (Auto) 0.0 Abs Immat Gran (auto) 0.04 H Absolute Neuts (auto) 7.8 Absolute Nucleated RBC 0.000 Nucleated RBC % (auto) 0.0 VBG pH VBG pCO2 VBG pO2 VBG HCO3 VBG O2 Saturation VBG Base Excess Anion Gap 16 Estim Creat Clear Calc 28.1 Estimated GFR 20 Random Glucose 334 H Calcium 8.8 Magnesium 2.0 Total Bilirubin 0.5 AST 16 ALT 21 Alkaline Phosphatase 92 Total Protein 6.1 L Albumin 3.5 Lipase 12 Acetone, Qual COVID-19 (SABINE) Negative COVID-19 Clin Com See Note Influenza Type A (STAN) Influenza Type B (STAN) Influenza A & B Note 03/16/22 03/16/22 03/16/22 17:33 17:33 17:35 MCV MCH MCHC RDW Plt Count MPV Immature Gran % (Auto) Neut % (Auto) Lymph % (Auto) [place] % (Auto) Eos % (Auto) Baso % (Auto) Lymph # (Auto) [place] # (Auto) Eos # (Auto) Baso # (Auto) Abs Immat Gran (auto) Absolute Neuts (auto) Absolute Nucleated RBC Nucleated RBC % (auto) VBG pH 7.47 H VBG pCO2 42 VBG pO2 88 VBG HCO3 30 H VBG O2 Saturation 98.0 VBG Base Excess 6.5 Anion Gap Estim Creat Clear Calc Estimated GFR Random Glucose Calcium Magnesium Total Bilirubin AST ALT Alkaline Phosphatase Total Protein Albumin Lipase Acetone, Qual Negative COVID-19 (SABINE) COVID-19 Clin Com Influenza Type A (STAN) Negative Influenza Type B (STAN) Negative Influenza A & B Note See Note Imaging Radiologist's Impressions: Impressions KUB X-Ray 03/16/22 17:43 IMPRESSION: Unremarkable examination. No significant stool retention. Assessment and Plan (1) Diabetic gastroparesis: Status: Acute (2) Nausea & vomiting: Status: Acute Plan 36-year-old male with history of uncontrolled type 1 diabetes with hyperglycemia, diabetic nephropathy with CKD stage 4, diabetic retinopathy with blindness, diabetic polyneuropathy, GERD, hypertension, hyperlipidemia, history pancreatitis, history diabetic ketoacidosis to be observed for diabetic gastgroparesis. #N/V/abd pain- likely related to Diabetic gastroparesis -IV NS @125 -NPO for now, advance as tolerated -IV ondansetron -MOrphine prn severe pain -gastric emptying study ordered -appreciate GI input #Acute dehydration -Secondary to above -Renal function baseline. Electrolytes normal -Contineu IVF as above -Follow BMP #Hypertensive urgency -20mg IV labetolol. Not tolerateding PO currently -Resume home PO antihypertensives as tolerated -Monitor BP #Metabolic alkalosis -d/t above #Uncontrolled type 1 diabetes with hyperglycemia -No diabetic ketoacidosis on admission -POC glucose -NPO for now, advance to diabetic diet as tolerated -dose adjusted Lantus -Humalog on sliding scale # CKD stage 4 secondary related to diabetic nephropathy -renal function baseline -monitor urine output and BMP DVT prophylaxis-compression boots Full code Time Spent With Patient Time: Total time managing care of this patient today ____ minutes. Quality Stroke Does the patient have a stroke diagnosis?: No VTE Prior VTE?: No VTE Risk Level:: Medical - moderate - high VTE Device Contraindication: Treatment Not Indicated VTE Drug Contraindication: N/A - Med Ordered
[2022-03-16 20:35] VITALS: BP 175/111; PULSE 108; RESP 17; TEMP 36.8
[2022-03-16] MEDS: LORazepam 2 MG/ML VIAL 1 MG IVPUSH (20:42)
[2022-03-16] MEDS: Prochlorperazine Edisylate 10 MG/2 ML VIAL IVPUSH (20:45)
[2022-03-16] MEDS: Labetalol HCL 100 MG/20 ML VIAL 20 MG IVPUSH (20:50)
[2022-03-16 20:58] LABS: Glucose, Whole Blood 252 mg/dL (60-115)
[2022-03-16] MEDS: Insulin Regular, Human 100 UNIT/ML 3 ML VIAL IVPUSH (20:58)
--- NOTE | 2022-03-16 21:03 | PC.NURSE ---
Pt asssessed, reported severe abd pain with nausea, medicated per dr orders
[2022-03-16] MEDS: Insulin Lispro 100 UNIT/ML 3 ML VIAL SUBCUT (21:35)
[2022-03-16 21:38] VITALS: BP 134/81; PULSE 93; RESP 17; TEMP 36.7
[2022-03-16 22:28] VITALS: BP 178/98; PULSE 98; RESP 16; TEMP 36.6; O2SAT 93
[2022-03-16] MEDS: 0.9 % Sodium Chloride 1,000 ML 125 ML IVCONT (22:44)
[2022-03-16 22:55] LABS: Appearance Urine Clear; Color Urine Yellow; Glucose Urine UA 500 mg/dL (Negative); Leukocyte Esterase Urine Negative (Negative); Nitrite Urine Negative (Negative); PH 7.5 (5.0-9.0); UMIC TRIGGER UACC YES; Urine Blood Trace (Negative); Urine Ketones Negative (Negative); Urine Protein 300 (3+) mg/dL (Neg-Trace)
[2022-03-16 23:00] LABS: Bacteria Urine None Seen (None Seen); Hyaline Casts Urine 0-2 /LPF (0-2); RBC Urine 0-2 /HPF (0-2); Squamous Epithelial Cell Urine 0-2 /HPF (0-2); WBC Urine 0-5 /HPF (0-5)
[2022-03-17 01:23] LABS: Glucose, Whole Blood 64 mg/dL (60-115)
[2022-03-17] MEDS: 0.9 % Sodium Chloride 1,000 ML 125 ML IVCONT ×2 (06:30→21:00)
[2022-03-17 06:58] LABS: MANUAL DIFF FLAG NO
[2022-03-17 07:21] LABS: Basophils Percent Auto 0.3 % (0-2); Eosinophils Absolute Auto 0.1 X10*3/uL (0.0-0.4); Eosinophils Percent Auto 0.6 % (0-4); Hematocrit 38.6 % (42.0-52.0); Hemoglobin 13.4 g/dl (14.0-18.0); Imm Gran Abs Auto 0.03 X10*3/uL (0.00-0.03); Imm Gran Pct Auto 0.3 % (0.0-0.4); Lymphocytes Absolute Auto 2.1 X10*3/uL (1.2-4.9); Lymphocytes Percent Auto 23.6 % (20-40); Mean Corpuscular HGB Conc 34.7 g/dl (31.0-36.0); Mean Corpuscular Hemoglobin 30.2 pg (27.0-33.0); Mean Corpuscular Volume 87.1 fL (80.0-98.0); Mean Platelet Volume 10.6 fL (9.4-12.4); Monocytes Absolute Auto 0.8 X10*3/uL (0.1-1.2); Monocytes Percent Auto 9.1 % (2-11); Neutrophils Absolute Auto 5.9 x10*3/uL (2.0-8.3); Neutrophils Percent Auto 66.1 % (45-73); Platelet Count 223 X10*3/uL (160-400); Red Blood Count 4.43 X10*6/uL (4.60-5.80); Red Cell Distribution Width 11.8 % (11.0-16.0)
[2022-03-17 07:26] LABS: Anion Gap 13 (12-20); Blood Urea Nitrogen 10 mg/dL (9-16); Calcium 8.2 mg/dL (8.4-10.2); Carbon Dioxide 28 mmol/L (22-29); Chloride 103 mmol/L (96-108); Creatinine Clr Calc Pharmacy 32.2; Estimated Glomerular Filt Rate 23; Glucose Random 326 mg/dL (60-115); Potassium 4.8 mmol/L (3.3-5.1); Sodium 139 mmol/L (135-145)
[2022-03-17 07:33] LABS: Glucose, Whole Blood 364 mg/dL (60-115)
[2022-03-17 07:43] LABS: Estimated Average Glucose 180 mg/dL; Hemoglobin A1c % 7.9 %
[2022-03-17] MEDS: Morphine Sulfate 4 MG/ML CARTRIDGE IVPUSH ×2 (07:54→22:14)
[2022-03-17] MEDS: Insulin Lispro 100 UNIT/ML 3 ML VIAL SUBCUT ×3 (07:54→21:54)
[2022-03-17 08:00] VITALS: BP 196/110; PULSE 101; RESP 18; TEMP 36.7; O2SAT 96
--- NOTE | 2022-03-17 08:41 | P.CNGI_ITS ---
History of Present Illness Data of Consult Service Date: 03/17/22 Requesting physician: Melva Arroyo Primary Care Provider: MD JONO Groves Reason for consult: Nausea vomiting abdominal pain, diabetic gastroparesis 36 year old Hebrew-speaking male with uncontrolled type 1 DM with hyperg lycemia, diabetic nephropathy with CKD stage 4, diabetic retinopathy with blindness, diabetic polyneuropathy, GERD, hypertension, hyperlipidemia, hx of pancreatitis, x of diabetic ketoacidosis seen at [facility] on 03/16/22 with nausea, vomiting, generalized weakness, decreased p.o. intake, and severe epigastric pain which started earlier yesterday morning.? Pt stated abdominal pain has been > 10/10 in intensity, constant and he had 4 episodes of bilious vomiting yesterday.? Pt denied fever, chills, diarrhea, headaches, shortness of breath, lightheadedness, palpitations, chest pain.? He denied any sick contacts or recent illness.? In ED, patient had tachycardic to 112, hypertensive to 177/112.? No leukocytosis.? Creatinine baseline at 3.47, BUN 11, electrolyte levels normal, glucose 334, h emoglobin A1c pending.? Lipase 12.? AST, ALT normal.? Acetone negative.? KUB unremarkable.? Pt was seen at [facility] multiple times over the last week with 3 CT scans of the abdomen/pelvis most recently on 03/14 which was negative for any acute findings in the abdomen or pelvis or any inflammatory changes, recently discharged on 03/08 for diabetic ketoacidosis.? In the ED, patient given 1 L IV NS bolus, 25 mg Benadryl, 4 mg morphine, 10mg metoclopramide, and 30ML maalox. Hx MJ use, but denies any recent use in several months. Denies any illicit drug or alcohol use Pt notes improvement in nausea, vomiting and abdominal pain today (pain improved to 2-3/10). He has been tolerating a clear liquid diet. Patient denies known family history of colon polyps, colon cancer or other GI malignancies. Dad had GB problems and diverticulosis. Patient admits to past smoking and quit did 2 years ago and drinks alcohol occasionally. On medical marijuana for neuropathy? 03/14/[address] SCAN SHOWED: GASTROINTESTINAL TRACT: The stomach is unremarkable. Normal caliber small bowel. No obstruction. No colonic wall thickening or inflammation. Prominent stool in the right hemicolon.? IMPRESSION: No acute findings in the abdomen or pelvis. No inflammatory changes. Prominent stool in the right hemicolon. Review of Systems Review of Systems: General: No fevers, malaise, unintentional weight loss Cardiovascular: No chest pain, palpitations, or leg edema Respiratory: No shortness of breath, wheezing, cough GI: +epigastric pain, +nausea, +vomiting. No diarrhea, constipation, melena, hematochezia : No dysuria, hematuria, increased urinary frequency, decreased urinary output MSK: No myalgia, back pain Neuro: No headaches, weakness, paresthesias Skin: No rashes or lesions PMFSH Past Medical History Medical History Acid reflux Acute hyperkalemia Acute on chronic kidney failure Background diabetic retinopathy associated with type 2 diabetes mellitus CKD (chronic kidney disease) stage 4, GFR 15-29 ml/min Diabetes type 1, uncontrolled Diabetic gastroparesis Diabetic ketoacidosis 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 Diabetic polyneuropathy associated with type 1 diabetes mellitus Diabetic visual loss, with retinopathy, associated with type 1 diabetes mellitus Essential hypertension Gastritis Hemangioma of liver Hyperglycemia due to type 1 diabetes mellitus Hyperkalemia Hyperlipidemia LDL goal <70 Hypertension associated with diabetes Hypertensive urgency Hypocalcemia Hyponatremia Lactic acidosis due to diabetes mellitus Legally blind Opioid overdose Pancreatitis Polyneuropathy Pulmonary edema Respiratory failure Sciatica Toxic encephalopathy Type 1 diabetes Vitamin D deficiency Withdrawal from recreational drug Family History Family History Father Diabetes mellitus Mother Diabetes mellitus Maternal Grandfather Diabetes mellitus Maternal Grandmother Diabetes mellitus Surgical History Surgical History Hx of appendectomy Hx of circumcision Hx of endoscopy Hx of eye surgery Social History Social History Household Members: Spouse and Children Household Members Other:: and girlfriend Housing: Apartment Do you presently have visiting nurse or other home services: No Alcohol intake: current Alcohol intake frequency: former alcohol drinker Alcohol type: hard liquor Patient Tobacco Use Status: Former Tobacco user Second Hand Smoke Exposure: No Substance Use Type: Marijuana Advance Directives Date on File: 04/13/20 service: No Current occupational status: disabled Meds Allergies Allergy/AdvReac Type Severity Reaction Status Date / Time gluten Allergy Gastrointestinal Verified 05/13/22 10:46 Upset losartan Allergy Gastrointestinal Verified 05/13/22 10:46 Upset valsartan AdvReac Unknown GI problems Verified 05/13/22 10:46 Active Medications: Current Medications Dextrose (Dextrose 50 % 25 Gm/50 Ml Syringe) 25 gm IVPUSH Q15M PRN; Protocol PRN Reason: per Hypoglycemia Standing Ord. Glucose (Glucose Gel 15 Gm Gel..Gram.) 15 gm PO Q15M PRN; Protocol PRN Reason: per Hypoglycemia Standing Ord. Sodium Chloride (Ns) 1,000 mls @ 125 mls/hr IVCONT .Q8H [facility] Last Admin: 03/17/22 06:30 Dose: 125 mls/hr Insulin Glargine (Insulin Glargine,Hum.Rec.Anlog 100 Unit/Ml 10 Ml Vial) 26 unit SUBCUT BEDTIME [facility] Last Admin: 03/16/22 22:44 Dose: Not Given Insulin Human Lispro (Insulin Lispro 100 Unit/Ml 3 Ml Vial) 0 unit SUBCUT Q6H [facility]; Protocol Last Admin: 03/17/22 07:54 Dose: 10 unit Melatonin (Melatonin 3 Mg Tablet) 6 mg PO BEDTIME PRN PRN Reason: Insomnia Morphine Sulfate (Morphine Sulfate 4 Mg/Ml Cartridge) 4 mg IVPUSH Q4H PRN; Protocol PRN Reason: Pain, Severe (Pain Scale 7-10) Last Admin: 03/17/22 07:54 Dose: 4 mg Ondansetron HCl (Ondansetron Hcl 4 Mg/2 Ml Vial) 4 mg IVPUSH Q8H PRN PRN Reason: Nausea and Vomiting Pharmacy Consult (Consult Rx Perform Med Rec) 1 each MISCELLANE ONCE PRN PRN Reason: Consult order Sodium Chloride (0.9 % Sodium Chloride Flush 3 Ml Syringe) 3 ml IVFLUSH QSHIFT [facility] Last Admin: 03/17/22 07:55 Dose: Not Given Home Medications Medication Instructions Recorded Confirmed Last Taken Type nortriptyline 50 mg capsule 50 mg PO BEDTIME 01/04/20 03/28/22 03/06/22 History omeprazole 40 mg capsule,delayed 40 mg PO DAILY@0630 1103/28/22 03/06/22 History release pen needle, diabetic 32 gauge x #50 ea 07/12/21 07/12/21 Unknown History (BD Ultra-Fine Shannan Pen Needle) metoprolol succinate 50 mg 1.5 tab PO DAILY 07/29/21 03/28/22 03/06/22 History tablet,extended release 24 hr insulin aspart U-100 100 unit/mL 4 - 6 sliding scale dose subcut 12/27/21 03/28/22 03/07/22 History (3 mL) subcutaneous pen TIDAC insulin glargine 100 unit/mL (3 25 unit subcut BEDTIME 03/08/22 03/28/22 03/07/22 History mL) subcutaneous pen (Lantus Solostar U-100 Insulin) gabapentin 300 mg capsule 300 mg PO BEDTIME 05/13/22 Unknown History hydralazine 100 mg tablet 100 mg PO TID 05/13/22 Unknown History Physical Exam Vital Signs: Vital Signs: Last Vital Signs Temp 97.9 F 03/16/22 22:28 Pulse 98 03/16/22 22:28 Resp 16 03/16/22 22:28 BP 178/98 H 03/16/22 22:28 Pulse Ox 93 03/16/22 22:28 O2 Del Method 03/16/22 22:28 BMI result Body Mass Index 25.9 Const: General: no acute distress and ill appearing Orientation/consciousness: patient oriented x3 Limitations: other limitations (Legally blind) HEENT: Head: Yes normal to inspection Ears: hearing grossly normal bilaterally Eyes: Other: Patient is legally blind Neck: Neck: Yes normal visual inspection Chest: Chest palpation & inspection: normal inspection of the chest Resp: Effort & Inspection: normal respiratory effort Auscultation: clear to auscultation bilaterally Cardio: Palpation: normal PMI Rate: regular rate Rhythm: regular rhythm Heart sounds: S1 normal heart sound present, S2 normal heart sound present and no murmurs GI: Palpation (GI): Soft to palpation, nontender and No hepatosplenomegaly present Auscultation: normal bowel sounds Rectal Exam - Male: Yes deferred Skin: General skin exam: no rashes or lesions noted Neuro: General: patient oriented x3, gait normal and moves all extremities Psych: Appearance: grossly normal Mental Status: mental status grossly normal Results Labs 03/17/22 05:46 03/17/22 05:46 Labs: Short CBC 03/16/22 03/17/22 Range/Units 17:33 05:46 WBC 10.7 9.0 (4.8-10.8) X10*3/uL Hgb 14.2 13.4 L (14.0-18.0) g/dl Hct 40.4 L 38.6 L (42.0-52.0) % Plt Count 251 D 223 (160-400) X10*3/uL BMP 03/16/22 03/17/22 17:33 05:46 Sodium 135 139 Potassium 4.2 4.8 Chloride 97 103 Carbon Dioxide 26 28 BUN 11 10 Creatinine 3.47 H 3.03 H Calcium 8.8 8.2 L D Liver Function 03/16/22 Range/Units 17:33 Total Bilirubin 0.5 (0.0-1.0) mg/dL AST 16 (5-37) U/L ALT 21 (0-40) U/L Alkaline Phosphatase 92 (39-117) U/L Albumin 3.5 (3.5-5.0) g/dL Urine 03/16/22 Range/Units 22:46 Urine Color Yellow Urine Appearance Clear Urine pH 7.5 (5.0-9.0) Ur Specific [place] 1.010 (1.005-1.025) Urine Protein 300 (3+) H (Neg-Trace) mg/dL Urine Glucose (UA) 500 H (Negative) mg/dL Assessment and Plan (1) Nausea & vomiting: Status: Resolved (2) Intermittent left lower quadrant abdominal pain: Status: Resolved Plan 34-year-old Hebrew-speaking male, legally blind, with uncontrolled type 1 DM with hyperglycemia, diabetic nephropathy with CKD stage 4, diabetic retinopathy with blindness, diabetic polyneuropathy, GERD, hypertension, hyperlipidemia, hx of pancreatitis, hx of diabetic ketoacidosis seen at [facility] on 03/16/22 with nausea, vomiting, generalized weakness, decreased p.o. intake, and severe epigastric /LLQ pain.?Patient gives a history of intermittent episodes of abdominal pain, nausea and vomiting for the past 4 years. Past evaluation with EGD showed gastritis and no clear source for abdominal pain. 11/12 EGD showed superficial gastritis.? Gastric biopsies were negative for Helicobacter pylori 03/17/22 GASTRIC EMTYING STUDY SHOWED: 1 hour 5% (normal 37%-90%) previous 57% 2 hours 4% (normal 30%-60%) previous 31% 3 hours 1 % previous 5%. ?4 hours 1 (normal 0%-10%) previous 4% IMPRESSION: Rapid 4 hour solid food gastric emptying study. Drastic change compared with previous study 05/09/2020 RECOMMENDATIONS: 1.? Continue PO PPI, antiemetics and pain medicines.? 2. His diet can be advanced to as tolerated. Time Spent With Patient Time: Total time managing care of this patient today ____ minutes. Procedures Date of Service Date of Service: 03/17/22
--- NOTE | 2022-03-17 08:57 | PHA.MEDREC ---
Pharmacy Consult ? Medication Reconciliation Pharmacy has completed the medication reconciliation.
[2022-03-17 09:23] VITALS: BP 182/97; PULSE 96
--- NOTE | 2022-03-17 09:57 | HO.PM.IMPN ---
Subjective Subjective Date of Service: 03/17/22 Review of Systems follow-up gastroparesis Still with some nausea abdominal pain but better Physical Exam Vital Signs: Vital Signs: Last Vital Signs Temp 98.0 F 03/17/22 08:00 Pulse 96 03/17/22 09:23 Resp 18 03/17/22 08:00 BP 182/97 H 03/17/22 09:23 Pulse Ox 96 03/17/22 08:00 O2 Del Method 03/17/22 08:00 BMI result Body Mass Index 25.9 Appearing in no acute distress lung sounds are clear to auscultation heart regular rate rhythm, clear S1, S2 positive bowel sounds, abdomen is soft, nontender neuro patient is alert x3, no focal deficits Objective Data Active Medications Dextrose (Dextrose 50 % 25 Gm/50 Ml Syringe) 25 gm IVPUSH Q15M PRN; Protocol PRN Reason: per Hypoglycemia Standing Ord. Glucose (Glucose Gel 15 Gm Gel..Gram.) 15 gm PO Q15M PRN; Protocol PRN Reason: per Hypoglycemia Standing Ord. Sodium Chloride (Ns) 1,000 mls @ 125 mls/hr IVCONT .Q8H [facility] Last Admin: 03/17/22 06:30 Dose: 125 mls/hr Documented By: ARI Insulin Glargine (Insulin Glargine,Hum.Rec.Anlog 100 Unit/Ml 10 Ml Vial) 26 unit SUBCUT BEDTIME [facility] Last Admin: 03/16/22 22:44 Dose: Not Given Documented By: ALBIN Non-Admin Reason: NPO Insulin Human Lispro (Insulin Lispro 100 Unit/Ml 3 Ml Vial) 0 unit SUBCUT Q6H [facility]; Protocol Last Admin: 03/17/22 07:54 Dose: 10 unit Documented By: MARISOL Melatonin (Melatonin 3 Mg Tablet) 6 mg PO BEDTIME PRN PRN Reason: Insomnia Morphine Sulfate (Morphine Sulfate 4 Mg/Ml Cartridge) 4 mg IVPUSH Q4H PRN; Protocol PRN Reason: Pain, Severe (Pain Scale 7-10) Last Admin: 03/17/22 07:54 Dose: 4 mg Documented By: MARISOL Ondansetron HCl (Ondansetron Hcl 4 Mg/2 Ml Vial) 4 mg IVPUSH Q8H PRN PRN Reason: Nausea and Vomiting Pharmacy Consult (Consult Rx Perform Med Rec) 1 each MISCELLANE ONCE PRN PRN Reason: Consult order Sodium Chloride (0.9 % Sodium Chloride Flush 3 Ml Syringe) 3 ml IVFLUSH QSHIFT [facility] Last Admin: 03/17/22 07:55 Dose: Not Given Documented By: MARISOL Non-Admin Reason: IV Running Labs 03/17/22 05:46 03/17/22 05:46 Labs: Laboratory Results - last 24 hr 03/16/22 03/16/22 03/16/22 17:33 17:33 17:33 MCV 84.3 MCH 29.6 MCHC 35.1 RDW 11.6 Plt Count 251 D MPV 9.7 Immature Gran % (Auto) 0.4 Neut % (Auto) 73.0 Lymph % (Auto) 15.5 L [place] % (Auto) 10.3 Eos % (Auto) 0.5 Baso % (Auto) 0.3 Lymph # (Auto) 1.7 [place] # (Auto) 1.1 Eos # (Auto) 0.1 Baso # (Auto) 0.0 Abs Immat Gran (auto) 0.04 H Absolute Neuts (auto) 7.8 Absolute Nucleated RBC 0.000 Nucleated RBC % (auto) 0.0 VBG pH VBG pCO2 VBG pO2 VBG HCO3 VBG O2 Saturation VBG Base Excess Anion Gap 16 Estim Creat Clear Calc 28.1 Estimated GFR 20 POC Glucose Random Glucose 334 H Estimat Average Glucose Hemoglobin A1c % Calcium 8.8 Magnesium 2.0 Total Bilirubin 0.5 AST 16 ALT 21 Alkaline Phosphatase 92 Total Protein 6.1 L Albumin 3.5 Lipase 12 Urine Color Urine Appearance Urine pH Ur Specific [place] Urine Protein Urine Glucose (UA) Urine Ketones Urine Blood Urine Nitrite Ur Leukocyte Esterase Urine RBC Urine WBC Ur Squamous Epith Cells Urine Bacteria Hyaline Casts Acetone, Qual COVID-19 (SABINE) Negative COVID-19 Clin Com See Note Influenza Type A (STAN) Influenza Type B (STAN) Influenza A & B Note 03/16/22 03/16/22 03/16/22 17:33 17:33 17:33 MCV MCH MCHC RDW Plt Count MPV Immature Gran % (Auto) Neut % (Auto) Lymph % (Auto) [place] % (Auto) Eos % (Auto) Baso % (Auto) Lymph # (Auto) [place] # (Auto) Eos # (Auto) Baso # (Auto) Abs Immat Gran (auto) Absolute Neuts (auto) Absolute Nucleated RBC Nucleated RBC % (auto) VBG pH VBG pCO2 VBG pO2 VBG HCO3 VBG O2 Saturation VBG Base Excess Anion Gap Estim Creat Clear Calc Estimated GFR POC Glucose Random Glucose Estimat Average Glucose 180 Hemoglobin A1c % 7.9 Calcium Magnesium Total Bilirubin AST ALT Alkaline Phosphatase Total Protein Albumin Lipase Urine Color Urine Appearance Urine pH Ur Specific [place] Urine Protein Urine Glucose (UA) Urine Ketones Urine Blood Urine Nitrite Ur Leukocyte Esterase Urine RBC Urine WBC Ur Squamous Epith Cells Urine Bacteria Hyaline Casts Acetone, Qual Negative COVID-19 (SABINE) COVID-19 Clin Com Influenza Type A (STAN) Negative Influenza Type B (STAN) Negative Influenza A & B Note See Note 03/16/22 03/16/22 03/16/22 17:35 20:54 22:46 MCV MCH MCHC RDW Plt Count MPV Immature Gran % (Auto) Neut % (Auto) Lymph % (Auto) [place] % (Auto) Eos % (Auto) Baso % (Auto) Lymph # (Auto) [place] # (Auto) Eos # (Auto) Baso # (Auto) Abs Immat Gran (auto) Absolute Neuts (auto) Absolute Nucleated RBC Nucleated RBC % (auto) VBG pH 7.47 H VBG pCO2 42 VBG pO2 88 VBG HCO3 30 H VBG O2 Saturation 98.0 VBG Base Excess 6.5 Anion Gap Estim Creat Clear Calc Estimated GFR POC Glucose 252 H Random Glucose Estimat Average Glucose Hemoglobin A1c % Calcium Magnesium Total Bilirubin AST ALT Alkaline Phosphatase Total Protein Albumin Lipase Urine Color Yellow Urine Appearance Clear Urine pH 7.5 Ur Specific [place] 1.010 Urine Protein 300 (3+) H Urine Glucose (UA) 500 H Urine Ketones Negative Urine Blood Trace H Urine Nitrite Negative Ur Leukocyte Esterase Negative Urine RBC 0-2 Urine WBC 0-5 Ur Squamous Epith Cells 0-2 Urine Bacteria None Seen Hyaline Casts 0-2 Acetone, Qual COVID-19 (SABINE) COVID-19 Clin Com Influenza Type A (STAN) Influenza Type B (STAN) Influenza A & B Note 03/17/22 03/17/22 03/17/22 01:18 05:46 05:46 MCV 87.1 MCH 30.2 MCHC 34.7 RDW 11.8 Plt Count 223 MPV 10.6 Immature Gran % (Auto) 0.3 Neut % (Auto) 66.1 Lymph % (Auto) 23.6 [place] % (Auto) 9.1 Eos % (Auto) 0.6 Baso % (Auto) 0.3 Lymph # (Auto) 2.1 [place] # (Auto) 0.8 Eos # (Auto) 0.1 Baso # (Auto) 0.0 Abs Immat Gran (auto) 0.03 Absolute Neuts (auto) 5.9 Absolute Nucleated RBC 0.000 Nucleated RBC % (auto) 0.0 VBG pH VBG pCO2 VBG pO2 VBG HCO3 VBG O2 Saturation VBG Base Excess Anion Gap 13 Estim Creat Clear Calc 32.2 Estimated GFR 23 POC Glucose 64 Random Glucose 326 H Estimat Average Glucose Hemoglobin A1c % Calcium 8.2 L D Magnesium Total Bilirubin AST ALT Alkaline Phosphatase Total Protein Albumin Lipase Urine Color Urine Appearance Urine pH Ur Specific [place] Urine Protein Urine Glucose (UA) Urine Ketones Urine Blood Urine Nitrite Ur Leukocyte Esterase Urine RBC Urine WBC Ur Squamous Epith Cells Urine Bacteria Hyaline Casts Acetone, Qual COVID-19 (SABINE) COVID-19 Clin Com Influenza Type A (STAN) Influenza Type B (STAN) Influenza A & B Note 03/17/22 07:26 MCV MCH MCHC RDW Plt Count MPV Immature Gran % (Auto) Neut % (Auto) Lymph % (Auto) [place] % (Auto) Eos % (Auto) Baso % (Auto) Lymph # (Auto) [place] # (Auto) Eos # (Auto) Baso # (Auto) Abs Immat Gran (auto) Absolute Neuts (auto) Absolute Nucleated RBC Nucleated RBC % (auto) VBG pH VBG pCO2 VBG pO2 VBG HCO3 VBG O2 Saturation VBG Base Excess Anion Gap Estim Creat Clear Calc Estimated GFR POC Glucose 364 H* Random Glucose Estimat Average Glucose Hemoglobin A1c % Calcium Magnesium Total Bilirubin AST ALT Alkaline Phosphatase Total Protein Albumin Lipase Urine Color Urine Appearance Urine pH Ur Specific [place] Urine Protein Urine Glucose (UA) Urine Ketones Urine Blood Urine Nitrite Ur Leukocyte Esterase Urine RBC Urine WBC Ur Squamous Epith Cells Urine Bacteria Hyaline Casts Acetone, Qual COVID-19 (SABINE) COVID-19 Clin Com Influenza Type A (STAN) Influenza Type B (STAN) Influenza A & B Note Assessment and Plan (1) Hypertensive urgency: Status: Acute (2) Diabetic ketoacidosis: Status: Inactive (3) Abdominal pain: Status: Inactive (4) CKD (chronic kidney disease) stage 4, GFR 15-29 ml/min: Status: Acute Plan 36-year-old male with history of uncontrolled type 1 diabetes with hyperglycemia, diabetic nephropathy with CKD stage 4, diabetic retinopathy with blindness, diabetic polyneuropathy, GERD, hypertension, hyperlipidemia, history pancreatitis, history diabetic ketoacidosis to be observed for diabetic gastgroparesis. Diabetic gastroparesis with abdominal pain, nausea and vomiting continue IV fluids and antiemetics NPO for now, advance as tolerated pain control gastric emptying study pending appreciate GI input Hypertensive urgency continue home medications Monitor BP Metabolic alkalosis d/t above Uncontrolled type 1 diabetes with hyperglycemia No diabetic ketoacidosis on admission NPO for now, advance to diabetic diet as tolerated dose adjusted Lantus ss CKD stage 4 secondary related to diabetic nephropathy renal function baseline monitor urine output and BMP DVT prophylaxis-compression boots Attending Dr. Carlson Full code Patient required 2 inpatient midnights for treatment of diabetic gastroparesis, hypertensive urgency, patient requiring gastric emptying study. Time Spent With Patient Time: Total time managing care of this patient today ____ minutes. Quality Stroke Does the patient have a stroke diagnosis?: No VTE Prior VTE?: No VTE Risk Level:: Medical - moderate - high VTE Device Contraindication: Treatment Not Indicated VTE Drug Contraindication: N/A - Med Ordered
[2022-03-17] MEDS: Valsartan 80 MG TABLET PO (10:25)
[2022-03-17] MEDS: hydrALAZINE HCl 25 MG TABLET 75 MG PO ×3 (10:25→20:57)
[2022-03-17] MEDS: Metoprolol Succinate ER 25 MG TAB.ER.24H 75 MG PO (10:26)
[2022-03-17] MEDS: NIFEdipine ER 60 MG TAB.ER.24 PO (10:47)
[2022-03-17 11:20] VITALS: BP 180/100; PULSE 96
[2022-03-17 11:41] LABS: Glucose, Whole Blood 155 mg/dL (60-115)
[2022-03-17 12:55] VITALS: BP 163/95
--- NOTE | 2022-03-17 13:48 | MHC.CM.PN ---
PT LIVES AT HOME WITH HIS S/O WHO IS ALSO HIS [employer] PT HAS ONLY DM SUPPLIES FOR DME HCP IS ON FILE HE IS COVID [facility] PCP: TARAS RICHARDSON IMM DELIVERED CURRENT DC PLAN IS HOME WITH RESUMPTION OF [employer] SERVICES S/O WILL TRANSPORT
[2022-03-17 17:25] LABS: Glucose, Whole Blood 322 mg/dL (60-115)
[2022-03-17 17:30] VITALS: BP 171/94; PULSE 114; RESP 18; TEMP 37.2; O2SAT 97
[2022-03-17] MEDS: Nortriptyline HCl 25 MG CAPSULE 50 MG PO (20:57)
[2022-03-17] MEDS: Gabapentin 100 MG CAPSULE 200 MG PO (20:57)
[2022-03-17] MEDS: Insulin Glargine,Hum.rec.anlog 100 UNIT/ML 10 ML VIAL 26 UNIT SUBCUT (20:58)
[2022-03-17] MEDS: polyethylene glycoL 3350 17 GM POWD.PACK PO (20:58)
[2022-03-17 21:34] LABS: Glucose, Whole Blood 228 mg/dL (60-115)
[2022-03-17 23:37] LABS: Glucose, Whole Blood 111 mg/dL (60-115)
[2022-03-18] VITALS: BP 128/78; PULSE 93; RESP 15; TEMP 36.7; O2SAT 95
[2022-03-18 02:35] LABS: Glucose, Whole Blood 75 mg/dL (60-115)
[2022-03-18 05:05] LABS: Glucose, Whole Blood 174 mg/dL (60-115)
[2022-03-18] MEDS: 0.9 % Sodium Chloride 1,000 ML 125 ML IVCONT (05:07)
[2022-03-18] MEDS: Omeprazole 40 MG CAPSULE.DR PO (05:08)
[2022-03-18 07:15] VITALS: BP 163/90; PULSE 97; RESP 16; TEMP 36.9; O2SAT 96
[2022-03-18] MEDS: Ezetimibe 10 MG TABLET PO (07:21)
[2022-03-18] MEDS: NIFEdipine ER 60 MG TAB.ER.24 PO (07:21)
[2022-03-18] MEDS: Metoprolol Succinate ER 25 MG TAB.ER.24H 75 MG PO (07:21)
[2022-03-18] MEDS: polyethylene glycoL 3350 17 GM POWD.PACK PO (07:21)
[2022-03-18] MEDS: Atorvastatin Calcium 80 MG TABLET PO (07:21)
[2022-03-18] MEDS: Gabapentin 100 MG CAPSULE 200 MG PO (07:21)
[2022-03-18] MEDS: hydrALAZINE HCl 25 MG TABLET 75 MG PO (07:21)
[2022-03-18] MEDS: Valsartan 80 MG TABLET PO (07:22)
[2022-03-18] MEDS: Insulin Lispro 100 UNIT/ML 3 ML VIAL SUBCUT ×2 (07:22→12:20)
[2022-03-18] MEDS: Cholecalciferol (Vitamin D3) 25 MCG TABLET 50 MCG PO (07:23)
[2022-03-18 07:31] LABS: Glucose, Whole Blood 210 mg/dL (60-115)
[2022-03-18 11:29] LABS: Glucose, Whole Blood 283 mg/dL (60-115)
--- NOTE | 2022-03-18 11:46 | PM.DS ---
DS: Providers Provider Date of Service: 03/18/22 Date of admission: 03/17/22 09:49 Primary care physician: Hong Rodríguez MD Consults: 03/16/22 20:35 Consult to Gastroenterology Routine Consulting Provider: Jimbo Ayala Reason for consultation: diabetic gastroparesis Attending physician on discharge: Patel Carlson Discharging clinician: Stephie Mcdonough DS: Diagnosis Discharge Diagnosis (1) Nausea & vomiting: Status: Acute (2) Intermittent left lower quadrant abdominal pain: Status: Acute DS: Summary Hospital Course Hospital Course: History and physical as per admitting provider 36-year-old male with history of uncontrolled type 1 diabetes with hyperglycemia, diabetic nephropathy with CKD stage 4, diabetic retinopathy with blindness, diabetic polyneuropathy, GERD, hypertension, hyperlipidemia, history pancreatitis, history diabetic ketoacidosis presented to the ED earlier today for evaluation of nausea, vomiting, generalized weakness, decreased p.o. tolerance, and severe epigastric pain which started earlier this morning.? He states the pain has been constant and he has vomited 4 times today with bilious content.? He denies any fevers, chills, diarrhea, headaches, shortness of breath, lightheadedness, palpitations, chest pain.? He denies any sick contacts or recent illness.? In ED, patient has been tachycardic to 112, hypertensive to 177/112.? No leukocytosis.? Creatinine baseline at 3.47, BUN 11, electrolyte levels normal, glucose 334, hemoglobin A1c pending.? Lipase 12.? AST, ALT normal.? Acetone negative.? KUB unremarkable.? Has presented to the ED multiple times over the last week with 3 CT scans of the abdomen/pelvis most recently on 03/14 which was negative for any acute findings in the abdomen or pelvis or any inflammatory changes, recently discharged on 03/08 for diabetic ketoacidosis.? In the ED, patient given 1 L IV NS bolus, 25 mg Benadryl, 4 mg morphine, 10mg metoclopramide, and 30ML maalox. Hx MJ use, but denies any recent use in several months. Denies any illicit drug or alcohol use . Diabetic gastroparesis with abdominal pain, nausea and vomiting. Resolved. Gastric emptying study normal. Treated with IV fluids, antiemetics, NPO initially. Advanced diet with no issues. Patient is stable for discharge home. Can follow up with GI as outpatient. Hypertensive urgency. blood pressure monitor closely, continue home medication Metabolic alkalosis. d/t above Uncontrolled type 1 diabetes with hyperglycemia. No diabetic ketoacidosis on admission, initially NPO, diet advanced to regular. Treated with sliding scale and Lantus. Continue home medications CKD stage 4 secondary to diabetic nephropathy. Baseline renal function Time Spent with Patient Time attestation: Total time managing care of this patient today ____ minutes. Discharge coordination time: Greater than 30 minutes Quality: Safe Use of Opioids Does Pt have an Active Cancer Diagnosis on the Problem List?: No Quality: Stroke Does the patient have a stroke diagnosis?: No Physical Exam Vital Signs: Vital Signs: Last Vital Signs Temp 98.4 F 03/18/22 07:15 Pulse 97 03/18/22 07:15 Resp 16 03/18/22 07:15 BP 163/90 H 03/18/22 07:15 Pulse Ox 96 03/18/22 07:15 O2 Del Method 03/18/22 07:15 BMI result Body Mass Index 25.9 Appearing in no acute distress head is normocephalic atraumatic eyes pupils are PERRLA sclera is anicteric mouth throat mucous membranes are intact and moist neck is supple no lymphadenopathy, no JVD noted lung sounds are clear to auscultation heart regular rate rhythm, clear S1, S2 positive bowel sounds, abdomen is soft, nontender neuro patient is alert x3, no focal deficits DS: Data Data Completed and Pending Completed studies during hospitalization [Text1]: Procedures Insertion of Endotracheal Airway into Trachea, Via Natural or Artificial Opening Endoscopic (07/29/21) Insertion of Infusion Device into Superior Vena Cava, Percutaneous Approach (07/29/21) Introduction of Vasopressor into Peripheral Vein, Percutaneous Approach (07/29/21) Respiratory Ventilation, Greater than 96 Consecutive Hours (07/29/21) Ultrasonography of Superior Vena Cava, Guidance (07/29/21) Labs on day of discharge: Laboratory Results - last 24 hr 03/17/22 03/17/22 03/17/22 17:21 21:31 23:33 POC Glucose 322 H 228 H 111 03/18/22 03/18/22 03/18/22 02:29 05:01 07:13 POC Glucose 75 174 H 210 H 03/18/22 11:07 POC Glucose 283 H Discharge Plan Discharge Anticipated Discharge Date/Time: 03/18/22 11:36 Patient Disposition: Home, Self-Care Discharge Diagnosis: Diabetic gastroparesis Hypertensive urgency metabolic alkalosis Referrals: Name,MD Hong [Primary Care Provider] - 03/25/22 1:15 pm (A follow up appointment was scheduled with PCP, call office if you need to reschedule.) Discharge Medications: Continued cholecalciferol (vitamin D3) 50 mcg (2,000 unit) capsule 50 mcg PO DAILY 30 Days Qty: 30 6RF atorvastatin 80 mg tablet 80 mg PO DAILY Qty: 30 6RF ezetimibe [Zetia] 10 mg tablet 10 mg PO DAILY 90 Days Qty: 90 1RF (DME) Omnipod 5 G6 Intro Kit (Gen 5) Cartridge See Rx Instructions .Route Qty: 1 4RF Rx Instructions: As directed (DME) Omnipod 5 G6 Intro Kit (Gen 5) Cartridge See Rx Instructions .Route Qty: 1 4RF Rx Instructions: As directed gabapentin 100 mg capsule 2 cap PO BID metoprolol succinate 50 mg tablet extended release 24 hr 1.5 tab PO DAILY hydralazine 50 mg Tablet 75 mg PO TID Qty: 90 0RF Protocol: Hold for SBP< HOLD for SBP < : 90 valsartan 80 mg tablet 80 mg PO DAILY Qty: 14 0RF insulin glargine [Lantus Solostar U-100 Insulin] 100 unit/mL (3 mL) insulin pen 25 unit subcut BEDTIME nifedipine 60 mg Tablet Extended Release 24hr 60 mg PO DAILY Qty: 30 0RF Protocol: Hold for SBP< HOLD for SBP < : 90 oxycodone 5 mg capsule 5 mg PO Q8H PRN (Reason: severe pain (scale score 7-10)) Qty: 10 0RF Rx Instructions: Partial Fill upon patient request. metoclopramide HCl 5 mg tablet 5 mg PO DAILY PRN (Reason: nausea and vomiting) Qty: 14 0RF polyethylene glycol 3350 [Miralax] 17 gram/dose powder 17 g PO BID Qty: 238 0RF omeprazole 40 mg capsule,delayed release(DR/EC) 40 mg PO DAILY@0630 nortriptyline 50 mg capsule 50 mg PO BEDTIME (DME) pen needle, diabetic [BD Ultra-Fine Shannan Pen Needle] 32 gauge x 5/32 needle See Rx Instructions .ROUTE QID Qty: 50 Rx Instructions: As directed insulin aspart U-100 100 unit/mL (3 mL) insulin pen 4 - 6 sliding scale dose subcut TIDAC Rx Instructions: sliding scale and put inside omnipod insulin pump Discharge Orders: Discharge Order (Routine); Ordered 03/18/22 Ordered By: Stephie Mcdonough Diet: Advance to usual diet Activity on Discharge: As tolerated Stand Alone Forms: Patient Portal Discharge page Care Plan Goals: complete resolution of symptoms Health Concerns: Diabetic gastroparesis Hypertensive urgency metabolic alkalosis Plan of Treatment: Follow-up with primary care provider as needed Take all medications as prescribed Assessment: see discharge summary
[2022-03-18 12:04] VITALS: BP 119/65; PULSE 92; RESP 16; TEMP 36.1; O2SAT 100
--- NOTE | 2022-03-18 13:30 | MHC.CM.PN ---
DC HOME TODAY - SELF CARE RN AWARE OF PLAN.
== END 2022-03-18 14:13 | disposition home or self-care (01) | DRG 48 ==
LOC: HO.ED 19:12 → HO.EDOVER 19:54 → HO.S3 20:59
PROVIDERS: Physician Assistant; Admitting Provider Student in an Organized Health Care Education/Training Program; Emergency Provider Internal Medicine; PCP Internal Medicine Geriatric Medicine; Visit Provider Nurse Practitioner Acute Care
DX: E10.43 Type 1 diabetes mellitus with diabetic autonomic (poly)neuropathy (principal); E87.3 Alkalosis; E10.22 Type 1 diabetes mellitus with diabetic chronic kidney disease; N18.4 Chronic kidney disease, stage 4 (severe); I16.0 Hypertensive urgency; E10.65 Type 1 diabetes mellitus with hyperglycemia; E10.319 Type 1 diabetes mellitus with unspecified diabetic retinopathy without macular edema; E86.0 Dehydration; K31.84 Gastroparesis; I12.9 Hypertensive chronic kidney disease with stage 1 through stage 4 chronic kidney disease, or unspecified chronic kidney disease; Z20.822 Contact with and (suspected) exposure to COVID-19; Z96.41 Presence of insulin pump (external) (internal); Z87.891 Personal history of nicotine dependence; Z88.8 Allergy status to other drugs, medicaments and biological substances; Z79.899 Other long term (current) drug therapy
CPT/HCPCS: 36415; 74018; 78264; 80048; 80053; 81001; 82009; 82803; 82947; 83036; 83690; 83735; 85025; 87502; 87635; 99284; A9541; J1200; J2060; J2270; J2765

== ENCOUNTER 2022-03-27 23:04 | Emergency (ER) | payer MEDICAID, SELFPAY ==
--- NOTE | ~2022-03-27 | XR_ITS ---
EXAMINATION: XR ABDOMEN KUB CLINICAL INDICATION: Abdominal pain COMPARISON: 03/16/2022 TECHNIQUE: AP view of the abdomen. FINDINGS: Bowel gas pattern is nonobstructive. Relatively mild volume of stool is present. There is limited assessment for free air with supine positioning. Included lung bases appear well-aerated. No suspicious calcifications are seen. No acute osseous findings are seen. XR/XR KUB IMPRESSION: Nonobstructive bowel gas pattern.
[2022-03-27 23:00] VITALS: BP 160/90; PULSE 104
[2022-03-27 23:15] VITALS: BP 163/92; PULSE 107; RESP 21; O2SAT 97; BMI 25.8
[2022-03-27 23:19] LABS: Glucose, Whole Blood 239 mg/dL (60-115)
[2022-03-27 23:25] LABS: MANUAL DIFF FLAG NO
[2022-03-27 23:26] LABS: Basophils Percent Auto 0.4 % (0-2); Eosinophils Absolute Auto 0.1 X10*3/uL (0.0-0.4); Eosinophils Percent Auto 0.7 % (0-4); Hematocrit 35.2 % (42.0-52.0); Hemoglobin 12.2 g/dl (14.0-18.0); Imm Gran Abs Auto 0.02 X10*3/uL (0.00-0.03); Imm Gran Pct Auto 0.2 % (0.0-0.4); Lymphocytes Absolute Auto 1.2 X10*3/uL (1.2-4.9); Lymphocytes Percent Auto 14.9 % (20-40); Mean Corpuscular HGB Conc 34.7 g/dl (31.0-36.0); Mean Corpuscular Hemoglobin 30.3 pg (27.0-33.0); Mean Corpuscular Volume 87.3 fL (80.0-98.0); Mean Platelet Volume 9.3 fL (9.4-12.4); Monocytes Absolute Auto 0.5 X10*3/uL (0.1-1.2); Monocytes Percent Auto 5.9 % (2-11); Neutrophils Absolute Auto 6.5 x10*3/uL (2.0-8.3); Neutrophils Percent Auto 77.9 % (45-73); Platelet Count 313 X10*3/uL (160-400); Red Blood Count 4.03 X10*6/uL (4.60-5.80); Red Cell Distribution Width 11.9 % (11.0-16.0); White Blood Count 8.4 X10*3/uL (4.8-10.8)
[2022-03-27] MEDS: 0.9 % Sodium Chloride 2,000 ML 999 ML IV (23:26)
[2022-03-27] MEDS: ondansetron HCL 4 MG/2 ML VIAL IVPUSH (23:27)
--- NOTE | 2022-03-27 23:41 | ED.ABDPAIN ---
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 He denies any fevers or chills. He denies any alcohol or drug use. Related Data Home Medications Medication Instructions Recorded Confirmed nortriptyline 50 mg capsule 50 mg PO BEDTIME 01/04/20 03/17/22 omeprazole 40 mg capsule,delayed 40 mg PO DAILY@0630 01/04/20 03/17/22 release pen needle, diabetic 32 gauge x #50 ea 07/12/21 07/12/21 (BD Ultra-Fine Shannan Pen Needle) gabapentin 100 mg capsule 2 cap PO BID 07/29/21 03/17/22 metoprolol succinate 50 mg 1.5 tab PO DAILY 07/29/21 03/17/22 tablet,extended release 24 hr insulin aspart U-100 100 unit/mL 4 - 6 sliding scale dose subcut 12/27/21 03/17/22 (3 mL) subcutaneous pen TIDAC insulin glargine 100 unit/mL (3 25 unit subcut BEDTIME 03/08/22 03/17/22 mL) subcutaneous pen (Lantus Solostar U-100 Insulin) Previous Rx's Medication Instructions Recorded cholecalciferol (vitamin D3) 50 50 mcg PO DAILY 30 days #30 caps 04/05/20 mcg (2,000 unit) capsule atorvastatin 80 mg tablet 80 mg PO DAILY #30 tabs 12/12/20 ezetimibe 10 mg tablet (Zetia) 10 mg PO DAILY 90 days #90 tabs 07/05/21 hydralazine 50 mg tablet 75 mg PO TID #90 tabs 08/09/21 insulin pump cartridge,automated #1 ea 02/19/22 dose,BT with controller subcutaneous (Omnipod 5 G6 Intro Kit (Gen 5) subcutaneous cartridge with controller) insulin pump cartridge,automated #1 ea 02/19/22 dose,BT with controller subcutaneous (Omnipod 5 G6 Intro Kit (Gen 5) subcutaneous cartridge with controller) valsartan 80 mg tablet 80 mg PO DAILY #14 tabs 03/08/22 nifedipine 60 mg tablet,extended 60 mg PO DAILY #30 tabs 03/11/22 release 24 hr oxycodone 5 mg capsule 5 mg PO Q8H PRN severe pain (scale 03/12/22 score 7-10) #10 caps metoclopramide HCl 5 mg tablet 5 mg PO DAILY PRN nausea and 03/15/22 vomiting #14 tabs polyethylene glycol 3350 17 17 g PO BID #238 grams 03/15/22 gram/dose oral powder (Miralax) Allergies Allergy/AdvReac Type Severity Reaction Status Date / Time gluten Allergy Gastrointestinal Verified 03/16/22 22:43 Upset losartan Allergy Gastrointestinal Verified 03/16/22 22:43 Upset Review of Systems Review of Systems Pertinent positives and negatives as stated in HPI [facility] Past Medical History Source: nursing notes reviewed Medical History Acid reflux Acute hyperkalemia Acute on chronic kidney failure Background diabetic retinopathy associated with type 2 diabetes mellitus CKD (chronic kidney disease) stage 4, GFR 15-29 ml/min Diabetes type 1, uncontrolled Diabetic gastroparesis Diabetic ketoacidosis 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 Diabetic polyneuropathy associated with type 1 diabetes mellitus Diabetic visual loss, with retinopathy, associated with type 1 diabetes mellitus Essential hypertension Gastritis Hemangioma of liver Hyperglycemia due to type 1 diabetes mellitus Hyperkalemia Hyperlipidemia LDL goal <70 Hypertension associated with diabetes Hypertensive urgency Hypocalcemia Hyponatremia Lactic acidosis due to diabetes mellitus Legally blind Opioid overdose Pancreatitis Polyneuropathy Pulmonary edema Respiratory failure Sciatica Toxic encephalopathy Type 1 diabetes Vitamin D deficiency Withdrawal from recreational drug Surgical History Hx of appendectomy Hx of circumcision Hx of endoscopy Hx of eye surgery Family History Family History Father Diabetes mellitus Mother Diabetes mellitus Maternal Grandfather Diabetes mellitus Maternal Grandmother Diabetes mellitus Social History Social History Household Members: Spouse and Children Household Members Other:: and girlfriend Housing: Apartment Do you presently have visiting nurse or other home services: No Alcohol intake: current Alcohol intake frequency: former alcohol drinker Alcohol type: hard liquor Patient Tobacco Use Status: Former Tobacco user Smoked in Last 30 Days: Yes Second Hand Smoke Exposure: No Use of substances other than those prescribed or required for medical reasons: Yes Substance Use Type: Marijuana Advance Directives: Yes Advance Directives on File: Yes Advance Directives Date on File: 04/13/20 service: No Current occupational status: disabled Physical Exam ED Vital Signs: Vital Signs - 24 hr 03/27/22 23:57 03/27/22 23:15 03/28/22 06:04 Temperature 98.1 F 98.4 F Pulse Rate 107 H 107 H 120 H Respiratory Rate 20 21 H 17 Blood Pressure 152/104 H 163/92 H 187/108 H Pulse Oximetry 98 97 97 Oxygen Delivery Method Room Air Room Air Room Air BMI result Body Mass Index 25.8 VITAL SIGNS: Reviewed. GENERAL: Well developed, well nourished, in moderate distress. HEAD: Normocephalic/atraumatic LUNGS: Normal breath sounds. No adventitious sounds or accessory muscle use. CARDIOVASCULAR: Regular rate and rhythm without noted murmurs ABDOMEN: Soft, TTP, non-distended with bowel sounds, insulin pump noted to left lower quadrant. MUSCULOSKELETAL: No tenderness, deformities, or effusions noted on gross inspection. EXTREMITIES: No cyanosis, clubbing or edema. SKIN: Inspection of the skin reveals no rashes NEUROLOGIC: Alert and oriented x 4. Strength and sensation to light touch were grossly intact x 4. Medical Decision Making Medical Decision Making [facility] Narrative: 36-year-old male with recurrent abdominal pain and recent abdomen pelvis imaging as well as KUB are negative and on review of gastric emptying study there is no evidence to suggest gastroparesis. Will evaluate, rehydrate, assess for DKA/KAYODE as well as illicit drug use. Initially bicarb 20 with a gap of 16 and small amount ketones, patient received 2 L of IV fluids, repeat lab work demonstrated evidence to suggest DKA, IV Push insulin given and insulin drip started. Additional normal saline with 20 mEq of potassium chloride was provided to the patient. Repeat lab work at 04:00 and 0600. 0735: Pt still with gap and acidotic....will continue to hydrate. Signed out to Dr Bae. Differential Diagnosis Differential Diagnoses: The differential diagnosis associated with the presentation includes Please see the discussion above Lab Data [facility] Lab Attestation statement: I reviewed the patient's lab results. Please see the discussion above 03/27/22 23:21 03/27/22 23:21 Labs: Lab Results 03/27/22 03/27/22 03/27/22 Range/Units 23:13 23:21 23:21 WBC 8.4 (4.8-10.8) X10*3/uL RBC 4.03 L (4.60-5.80) X10*6/uL Hgb 12.2 L (14.0-18.0) g/dl Hct 35.2 L (42.0-52.0) % MCV 87.3 (80.0-98.0) fL MCH 30.3 (27.0-33.0) pg MCHC 34.7 (31.0-36.0) g/dl RDW 11.9 (11.0-16.0) % Plt Count 313 D (160-400) X10*3/uL MPV 9.3 L (9.4-12.4) fL Immature Gran % (Auto) 0.2 (0.0-0.4) % Neut % (Auto) 77.9 H (45-73) % Lymph % (Auto) 14.9 L (20-40) % [place] % (Auto) 5.9 (2-11) % Eos % (Auto) 0.7 (0-4) % Baso % (Auto) 0.4 (0-2) % Lymph # (Auto) 1.2 (1.2-4.9) X10*3/uL [place] # (Auto) 0.5 (0.1-1.2) X10*3/uL Eos # (Auto) 0.1 (0.0-0.4) X10*3/uL Baso # (Auto) 0.0 (0.0-0.2) X10*3/uL Abs Immat Gran (auto) 0.02 (0.00-0.03) X10*3/uL Absolute Neuts (auto) 6.5 (2.0-8.3) x10*3/uL Absolute Nucleated RBC 0.000 (0.0-0.012) X10*3/uL Nucleated RBC % (auto) 0.0 (0.0-0.2) /100WBC Sodium 138 (135-145) mmol/L Potassium 4.2 (3.3-5.1) mmol/L Chloride 105 (96-108) mmol/L Carbon Dioxide 21 L (22-29) mmol/L Anion Gap 16 (12-20) BUN 30 H (9-16) mg/dL Creatinine 3.54 H (0.5-1.4) mg/dL Estim Creat Clear Calc TNP Estimated GFR 20 POC Glucose 239 H (60-115) mg/dL Random Glucose 232 H (60-115) mg/dL Calcium 9.0 D (8.4-10.2) mg/dL Total Bilirubin 0.6 (0.0-1.0) mg/dL AST 16 (5-37) U/L ALT 19 (0-40) U/L Alkaline Phosphatase 81 (39-117) U/L Total Protein 5.8 L (6.5-8.0) g/dL Albumin 3.5 (3.5-5.0) g/dL Urine Opiates Screen (Not Detect) Urine Fentanyl Screen (Not Detect) Ur Barbiturates Screen (Not Detect) Ur Phencyclidine Scrn (Not Detect) Ur Amphetamines Screen (Not Detect) U Benzodiazepines Scrn (Not Detect) Urine Cocaine Screen (Not Detect) U Marijuana (THC) Screen (Not Detect) Acetone, Qual Small H (Negative) 03/28/22 03/28/22 03/28/22 Range/Units 01:04 02:05 03:13 WBC (4.8-10.8) X10*3/uL RBC (4.60-5.80) X10*6/uL Hgb (14.0-18.0) g/dl Hct (42.0-52.0) % MCV (80.0-98.0) fL MCH (27.0-33.0) pg MCHC (31.0-36.0) g/dl RDW (11.0-16.0) % Plt Count (160-400) X10*3/uL MPV (9.4-12.4) fL Immature Gran % (Auto) (0.0-0.4) % Neut % (Auto) (45-73) % Lymph % (Auto) (20-40) % [place] % (Auto) (2-11) % Eos % (Auto) (0-4) % Baso % (Auto) (0-2) % Lymph # (Auto) (1.2-4.9) X10*3/uL [place] # (Auto) (0.1-1.2) X10*3/uL Eos # (Auto) (0.0-0.4) X10*3/uL Baso # (Auto) (0.0-0.2) X10*3/uL Abs Immat Gran (auto) (0.00-0.03) X10*3/uL Absolute Neuts (auto) (2.0-8.3) x10*3/uL Absolute Nucleated RBC (0.0-0.012) X10*3/uL Nucleated RBC % (auto) (0.0-0.2) /100WBC Sodium 140 (135-145) mmol/L Potassium 4.0 (3.3-5.1) mmol/L Chloride 106 (96-108) mmol/L Carbon Dioxide 18 L (22-29) mmol/L Anion Gap 20 (12-20) BUN 30 H (9-16) mg/dL Creatinine 3.34 H (0.5-1.4) mg/dL Estim Creat Clear Calc 29.2 Estimated GFR 21 POC Glucose 301 H (60-115) mg/dL Random Glucose 254 H (60-115) mg/dL Calcium 8.9 (8.4-10.2) mg/dL Total Bilirubin (0.0-1.0) mg/dL AST (5-37) U/L ALT (0-40) U/L Alkaline Phosphatase (39-117) U/L Total Protein (6.5-8.0) g/dL Albumin (3.5-5.0) g/dL Urine Opiates Screen Not Detected (Not Detect) Urine Fentanyl Screen Not Detected (Not Detect) Ur Barbiturates Screen Not Detected (Not Detect) Ur Phencyclidine Scrn Not Detected (Not Detect) Ur Amphetamines Screen Not Detected (Not Detect) U Benzodiazepines Scrn Not Detected (Not Detect) Urine Cocaine Screen Not Detected (Not Detect) U Marijuana (THC) Screen POSITIVE H (Not Detect) Acetone, Qual (Negative) 02/03/23 02/03/23 02/03/23 Range/Units 04:38 05:02 06:03 WBC (4.8-10.8) X10*3/uL RBC (4.60-5.80) X10*6/uL Hgb (14.0-18.0) g/dl Hct (42.0-52.0) % MCV (80.0-98.0) fL MCH (27.0-33.0) pg MCHC (31.0-36.0) g/dl RDW (11.0-16.0) % Plt Count (160-400) X10*3/uL MPV (9.4-12.4) fL Immature Gran % (Auto) (0.0-0.4) % Neut % (Auto) (45-73) % Lymph % (Auto) (20-40) % [place] % (Auto) (2-11) % Eos % (Auto) (0-4) % Baso % (Auto) (0-2) % Lymph # (Auto) (1.2-4.9) X10*3/uL [place] # (Auto) (0.1-1.2) X10*3/uL Eos # (Auto) (0.0-0.4) X10*3/uL Baso # (Auto) (0.0-0.2) X10*3/uL Abs Immat Gran (auto) (0.00-0.03) X10*3/uL Absolute Neuts (auto) (2.0-8.3) x10*3/uL Absolute Nucleated RBC (0.0-0.012) X10*3/uL Nucleated RBC % (auto) (0.0-0.2) /100WBC Sodium 141 (135-145) mmol/L Potassium 4.2 (3.3-5.1) mmol/L Chloride 109 H (96-108) mmol/L Carbon Dioxide 17 L (22-29) mmol/L Anion Gap 19 (12-20) BUN 29 H (9-16) mg/dL Creatinine 3.21 H (0.5-1.4) mg/dL Estim Creat Clear Calc 30.4 Estimated GFR 22 POC Glucose 211 H 155 H (60-115) mg/dL Random Glucose 242 H (60-115) mg/dL Calcium 8.8 (8.4-10.2) mg/dL Total Bilirubin 0.6 (0.0-1.0) mg/dL AST 17 (5-37) U/L ALT 20 (0-40) U/L Alkaline Phosphatase 87 (39-117) U/L Total Protein 6.2 L (6.5-8.0) g/dL Albumin 3.7 (3.5-5.0) g/dL Urine Opiates Screen (Not Detect) Urine Fentanyl Screen (Not Detect) Ur Barbiturates Screen (Not Detect) Ur Phencyclidine Scrn (Not Detect) Ur Amphetamines Screen (Not Detect) U Benzodiazepines Scrn (Not Detect) Urine Cocaine Screen (Not Detect) U Marijuana (THC) Screen (Not Detect) Acetone, Qual (Negative) 03/28/22 03/28/22 Range/Units 06:13 07:08 WBC (4.8-10.8) X10*3/uL RBC (4.60-5.80) X10*6/uL Hgb (14.0-18.0) g/dl Hct (42.0-52.0) % MCV (80.0-98.0) fL MCH (27.0-33.0) pg MCHC (31.0-36.0) g/dl RDW (11.0-16.0) % Plt Count (160-400) X10*3/uL MPV (9.4-12.4) fL Immature Gran % (Auto) (0.0-0.4) % Neut % (Auto) (45-73) % Lymph % (Auto) (20-40) % [place] % (Auto) (2-11) % Eos % (Auto) (0-4) % Baso % (Auto) (0-2) % Lymph # (Auto) (1.2-4.9) X10*3/uL [place] # (Auto) (0.1-1.2) X10*3/uL Eos # (Auto) (0.0-0.4) X10*3/uL Baso # (Auto) (0.0-0.2) X10*3/uL Abs Immat Gran (auto) (0.00-0.03) X10*3/uL Absolute Neuts (auto) (2.0-8.3) x10*3/uL Absolute Nucleated RBC (0.0-0.012) X10*3/uL Nucleated RBC % (auto) (0.0-0.2) /100WBC Sodium 141 (135-145) mmol/L Potassium 4.8 (3.3-5.1) mmol/L Chloride 111 H (96-108) mmol/L Carbon Dioxide 15 L (22-29) mmol/L Anion Gap 20 (12-20) BUN 30 H (9-16) mg/dL Creatinine 3.12 H (0.5-1.4) mg/dL Estim Creat Clear Calc 31.3 Estimated GFR 23 POC Glucose 155 H (60-115) mg/dL Random Glucose 169 H (60-115) mg/dL Calcium 8.7 (8.4-10.2) mg/dL Total Bilirubin 0.5 (0.0-1.0) mg/dL AST 24 (5-37) U/L ALT 22 (0-40) U/L Alkaline Phosphatase 87 (39-117) U/L Total Protein 6.7 (6.5-8.0) g/dL Albumin 3.7 (3.5-5.0) g/dL Urine Opiates Screen (Not Detect) Urine Fentanyl Screen (Not Detect) Ur Barbiturates Screen (Not Detect) Ur Phencyclidine Scrn (Not Detect) Ur Amphetamines Screen (Not Detect) U Benzodiazepines Scrn (Not Detect) Urine Cocaine Screen (Not Detect) U Marijuana (THC) Screen (Not Detect) Acetone, Qual (Negative) Independent Interpretation I performed an independent interpretation of an: EKG Interpretation: Sinus tachycardia, HR-121, no STEMI, VA/QRS/QTC are within normal limits. Radiology Impression Radiologist Impression: My interpretation is in agreement with radiology's impression of the imaging study. Medications Administered Generic Name Dose Route Start Last Admin Trade Name Freq PRN Reason Stop Dose Admin Potassium Chloride/Sodium Chloride 20 meq in 1,000 mls @ 150 mls/hr 03/28/22 03:45 03/28/22 04:44 Kcl 20 Meq In 0.9 % Sodium Chl IVCONT 150 mls/hr .Q6H40M OKSANA Administration Discontinued Medications Generic Name Dose Route Start Last Admin Trade Name Freq PRN Reason Stop Dose Admin Diphenhydramine HCl 25 mg 03/28/22 01:30 03/28/22 02:35 Diphenhydramine Hcl 50 Mg/Ml Vial IVPUSH 03/28/22 01:31 25 mg ONCE ONE Administration Sodium Chloride 2,000 mls @ 999 mls/hr 03/27/22 23:15 03/28/22 02:36 Ns IV 03/28/22 01:15 Infused .Q2H1M OKSANA Infusion Sodium Chloride 1,000 mls @ 999 mls/hr 03/28/22 02:45 03/28/22 05:26 Ns IV 03/28/22 03:45 Infused .Q1H1M OKSANA Infusion Insulin Glargine 25 unit 03/28/22 04:34 03/28/22 05:25 Insulin Glargine,Hum.Rec.Anlog 100 Unit/Ml 10 Ml Vial SUBCUT 03/28/22 04:35 25 unit ONCE ONE Administration Insulin Human Regular 8 unit 03/28/22 02:36 03/28/22 03:35 Insulin Regular, Human 100 Unit/Ml 3 Ml Vial 0.1 unit/kg (8 unit) 03/28/22 02:37 8 unit IVPUSH Administration ONCE ONE Ketorolac Tromethamine 15 mg 03/27/22 23:53 03/28/22 00:04 Ketorolac Tromethamine 30 Mg/Ml Vial IVPUSH 03/27/22 23:54 15 mg ONCE ONE Administration Lorazepam 0.5 mg 03/28/22 01:38 03/28/22 02:35 Lorazepam 2 Mg/Ml Vial IVPUSH 03/28/22 01:39 0.5 mg ONCE ONE Administration Metoclopramide HCl 10 mg 03/28/22 01:30 03/28/22 02:35 Metoclopramide Hcl 10 Mg/2 Ml Vial IVPUSH 03/28/22 01:31 10 mg ONCE ONE Administration Ondansetron HCl 4 mg 03/27/22 23:07 03/27/22 23:27 Ondansetron Hcl 4 Mg/2 Ml Vial IVPUSH 03/27/22 23:08 4 mg ONCE ONE Administration Critical Care Time Critical Care Time Critical Care Time: Yes Total Critical Care Time: 60 Attestation: I personally attest to this time spent taking care of the patient. Discharge Plan Discharge Clinical Impression: DKA, type 1, not at goal Patient Disposition: Still a Patient Prescriptions: No Action cholecalciferol (vitamin D3) 50 mcg (2,000 unit) capsule 50 mcg PO DAILY 30 Days Qty: 30 6RF atorvastatin 80 mg tablet 80 mg PO DAILY Qty: 30 6RF ezetimibe [Zetia] 10 mg tablet 10 mg PO DAILY 90 Days Qty: 90 1RF (DME) Omnipod 5 G6 Intro Kit (Gen 5) Cartridge See Rx Instructions .Route Qty: 1 4RF Rx Instructions: As directed (DME) Omnipod 5 G6 Intro Kit (Gen 5) Cartridge See Rx Instructions .Route Qty: 1 4RF Rx Instructions: As directed gabapentin 100 mg capsule 2 cap PO BID metoprolol succinate 50 mg tablet extended release 24 hr 1.5 tab PO DAILY hydralazine 50 mg Tablet 75 mg PO TID Qty: 90 0RF Protocol: Hold for SBP< HOLD for SBP < : 90 valsartan 80 mg tablet 80 mg PO DAILY Qty: 14 0RF insulin glargine [Lantus Solostar U-100 Insulin] 100 unit/mL (3 mL) insulin pen 25 unit subcut BEDTIME nifedipine 60 mg Tablet Extended Release 24hr 60 mg PO DAILY Qty: 30 0RF Protocol: Hold for SBP< HOLD for SBP < : 90 oxycodone 5 mg capsule 5 mg PO Q8H PRN (Reason: severe pain (scale score 7-10)) Qty: 10 0RF Rx Instructions: Partial Fill upon patient request. metoclopramide HCl 5 mg tablet 5 mg PO DAILY PRN (Reason: nausea and vomiting) Qty: 14 0RF polyethylene glycol 3350 [Miralax] 17 gram/dose powder 17 g PO BID Qty: 238 0RF omeprazole 40 mg capsule,delayed release(DR/EC) 40 mg PO DAILY@0630 nortriptyline 50 mg capsule 50 mg PO BEDTIME (DME) pen needle, diabetic [BD Ultra-Fine Shannan Pen Needle] 32 gauge x 5/32 needle See Rx Instructions .ROUTE QID Qty: 50 Rx Instructions: As directed insulin aspart U-100 100 unit/mL (3 mL) insulin pen 4 - 6 sliding scale dose subcut TIDAC Rx Instructions: sliding scale and put inside omnipod insulin pump
[2022-03-27 23:42] LABS: Acetone, serum QL Small (Negative)
[2022-03-27 23:48] LABS: Alanine Aminotransferase 19 U/L (0-40); Albumin Level 3.5 g/dL (3.5-5.0); Alkaline Phosphatase 81 U/L (39-117); Anion Gap 16 (12-20); Aspartate Amino Transferase 16 U/L (5-37); Bilirubin Total 0.6 mg/dL (0.0-1.0); Blood Urea Nitrogen 30 mg/dL (9-16); Carbon Dioxide 21 mmol/L (22-29); Chloride 105 mmol/L (96-108); Estimated Glomerular Filt Rate 20; Glucose Random 232 mg/dL (60-115); Potassium 4.2 mmol/L (3.3-5.1); Sodium 138 mmol/L (135-145); Total Protein 5.8 g/dL (6.5-8.0)
[2022-03-27 23:57] VITALS: BP 152/104; PULSE 107; RESP 20; TEMP 36.7; O2SAT 98
[2022-03-28] MEDS: Ketorolac Tromethamine 30 MG/ML VIAL 15 MG IVPUSH (00:04)
--- NOTE | 2022-03-28 00:08 | PC.NURSE ---
Patient is moaning in pain. He c/o achy, sharp, cramp like left-sided abdominal pain. Patient rating pain as 10/10 on o-10 pain scale. Provider notified. patient medicated with Toradol IV push per APR.
[2022-03-28 01:25] LABS: Amphetamine Screen Urine Not Detected (Not Detect); Barbiturates, Urine Not Detected (Not Detect); Benzodiazepines Screen Urine Not Detected (Not Detect); Cannabinoid Screen Urine POSITIVE (Not Detect); Cocaine Screen Urine Not Detected (Not Detect); Fentanyl, urine Not Detected (Not Detect); Opiate Screen Urine Not Detected (Not Detect); Phencyclidine Screen Urine Not Detected (Not Detect)
[2022-03-28 02:30] LABS: Anion Gap 20 (12-20); Blood Urea Nitrogen 30 mg/dL (9-16); Calcium 8.9 mg/dL (8.4-10.2); Carbon Dioxide 18 mmol/L (22-29); Chloride 106 mmol/L (96-108); Creatinine Clr Calc Pharmacy 29.2; Estimated Glomerular Filt Rate 21; Glucose Random 254 mg/dL (60-115); Sodium 140 mmol/L (135-145)
[2022-03-28] MEDS: Metoclopramide HCl 10 MG/2 ML VIAL IVPUSH (02:35)
[2022-03-28] MEDS: LORazepam 2 MG/ML VIAL 0.5 MG IVPUSH (02:35)
[2022-03-28] MEDS: diphenhydrAMINE HCL 50 MG/ML VIAL 25 MG IVPUSH (02:35)
[2022-03-28 03:18] LABS: Glucose, Whole Blood 301 mg/dL (60-115)
[2022-03-28] MEDS: Insulin Regular, Human 100 UNIT/ML 3 ML VIAL 8 UNIT IVPUSH (03:35)
[2022-03-28] MEDS: 0.9 % Sodium Chloride 1,000 ML 999 ML IV (03:42)
--- NOTE | 2022-03-28 04:37 | ECG_ITS ---
Test Reason : ABD PAIN Blood Pressure : / mmHG Vent. Rate : 121 BPM Atrial Rate : 121 BPM P-R Int : 118 ms QRS Dur : 078 ms QT Int : 324 ms P-R-T Axes : 061 075 047 degrees QTc Int : 460 ms Sinus tachycardia Otherwise normal ECG When compared with ECG of 08-MAR-2022 03:56, No significant change was found Referred By: Anjelica Velazquez Electronically Signed By:Joni Peña
[2022-03-28] MEDS: KCl 20 mEq in 0.9 % Sodium ChL 20 MEQ/1,000 ML IV.SOLN 150 MEQ IVCONT ×2 (04:44→11:07)
[2022-03-28 05:05] LABS: Glucose, Whole Blood 211 mg/dL (60-115)
--- NOTE | 2022-03-28 05:05 | PC.NURSE ---
Per verbal order from Dr Velazquez, started insulin drip at 7u/hr.
[2022-03-28 05:08] LABS: Alanine Aminotransferase 20 U/L (0-40); Albumin Level 3.7 g/dL (3.5-5.0); Alkaline Phosphatase 87 U/L (39-117); Anion Gap 19 (12-20); Aspartate Amino Transferase 17 U/L (5-37); Bilirubin Total 0.6 mg/dL (0.0-1.0); Blood Urea Nitrogen 29 mg/dL (9-16); Calcium 8.8 mg/dL (8.4-10.2); Carbon Dioxide 17 mmol/L (22-29); Chloride 109 mmol/L (96-108); Creatinine Clr Calc Pharmacy 30.4; Estimated Glomerular Filt Rate 22; Glucose Random 242 mg/dL (60-115); Potassium 4.2 mmol/L (3.3-5.1); Sodium 141 mmol/L (135-145); Total Protein 6.2 g/dL (6.5-8.0)
[2022-03-28] MEDS: Insulin Glargine,Hum.rec.anlog 100 UNIT/ML 10 ML VIAL 25 UNIT SUBCUT (05:25)
[2022-03-28 06:04] VITALS: BP 187/108; PULSE 120; RESP 17; TEMP 36.9; O2SAT 97
[2022-03-28 06:38] LABS: Glucose, Whole Blood 155 mg/dL (60-115)
[2022-03-28 06:42] LABS: Alanine Aminotransferase 22 U/L (0-40); Albumin Level 3.7 g/dL (3.5-5.0); Alkaline Phosphatase 87 U/L (39-117); Anion Gap 20 (12-20); Aspartate Amino Transferase 24 U/L (5-37); Bilirubin Total 0.5 mg/dL (0.0-1.0); Blood Urea Nitrogen 30 mg/dL (9-16); Calcium 8.7 mg/dL (8.4-10.2); Carbon Dioxide 15 mmol/L (22-29); Chloride 111 mmol/L (96-108); Creatinine Clr Calc Pharmacy 31.3; Estimated Glomerular Filt Rate 23; Glucose Random 169 mg/dL (60-115); Potassium 4.8 mmol/L (3.3-5.1); Sodium 141 mmol/L (135-145); Total Protein 6.7 g/dL (6.5-8.0)
[2022-03-28] MEDS: Insulin Regular/NS 100 UNIT/100 ML PLAST..BAG 7 UNIT IVCONT (07:00)
[2022-03-28 07:11] LABS: Glucose, Whole Blood 155 mg/dL (60-115)
[2022-03-28] MEDS: PHENobarb/Hyoscy/Atropine/Scop 10 ML ELIXIR PO (08:00)
[2022-03-28] MEDS: Dextrose 5 % and 0.45 % NaCl 1,000 ML 125 ML IVCONT (08:04)
[2022-03-28 08:12] LABS: Glucose, Whole Blood 110 mg/dL (60-115)
[2022-03-28] MEDS: Lactated Ringers 2,000 ML 999 ML IV (08:28)
[2022-03-28 08:50] LABS: Anion Gap 17 (12-20); Blood Urea Nitrogen 28 mg/dL (9-16); Calcium 8.6 mg/dL (8.4-10.2); Carbon Dioxide 18 mmol/L (22-29); Chloride 112 mmol/L (96-108); Creatinine Clr Calc Pharmacy 32.9; Estimated Glomerular Filt Rate 24; Glucose Random 97 mg/dL (60-115); Potassium 3.9 mmol/L (3.3-5.1); Sodium 143 mmol/L (135-145)
[2022-03-28 09:00] LABS: Glucose, Whole Blood 90 mg/dL (60-115)
[2022-03-28 10:04] LABS: Glucose, Whole Blood 90 mg/dL (60-115)
--- NOTE | 2022-03-28 10:19 | PHA.MEDREC ---
Pharmacy Consult ? Medication Reconciliation Pharmacy has completed the medication reconciliation. 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 Patient took all medications yesterday. Patient uses lantus/novolog when he does not have his insulin pump on .
--- NOTE | 2022-03-28 10:25 | PC.NURSE ---
ASSUMED CARE OF THIS PT AT 0700. PT HAD INSULIN INFUSING AT 7UNITS/ML AT THAT TIME HOWEVER NOT DOCUMENTED IN [facility]. THIS RN SCANNED INSULIN FOR 0700. POC NOTED AT 0800 155, DR REYNOLDS NOTIFIED AND VERBAL ORDER TO REPEAT CHEMISTRY AND HOLD INSULIN GTT. INSULIN THEN HELD X 1 HOUR. REPEAT CHEMISTRY RESULTED AND NEW VERBAL ORDER FROM DR MAJANO APPROX 0900 TO RESTART GTT AT 7UNITS/ML WITH D5 1/2 NS AT 125ML/HR PT STILL REMAINS ACIDOTIC PER LABS. POC AT THAT TIME 90. REPEAT POC IN 1 HOUR (1000) REMAINS 90, DR MAJANO AWARE AND VERBAL ORDER FOR INSULIN GTT TO REMAIN AT 7UNITS/ML AND NEW ORDER TO REPEAT CHEMISTRY AT THIS TIME.
[2022-03-28 10:56] LABS: Anion Gap 16 (12-20); Blood Urea Nitrogen 26 mg/dL (9-16); Calcium 8.5 mg/dL (8.4-10.2); Carbon Dioxide 20 mmol/L (22-29); Chloride 111 mmol/L (96-108); Creatinine Clr Calc Pharmacy 32.5; Estimated Glomerular Filt Rate 24; Glucose Random 88 mg/dL (60-115); Potassium 3.9 mmol/L (3.3-5.1); Sodium 143 mmol/L (135-145)
[2022-03-28 11:21] LABS: Glucose, Whole Blood 76 mg/dL (60-115)
[2022-03-28 11:22] VITALS: BP 203/119; PULSE 119; RESP 16; O2SAT 97
--- NOTE | 2022-03-28 11:30 | PC.NURSE ---
REPEAT POTASSIUM 3.9, POC 70. PER VERBAL ORDER FROM DR. MAJANO, START POTASSIUM AT 150 ML/HR. INCREASE D5 1/2 NS FROM 125 ML/HR TO 200 ML/HR AND CONTINUE INSULIN DRIP AT 7U/ML. ALL DONE DOCUMENTED.
[2022-03-28] MEDS: Metoprolol Succinate ER 25 MG TAB.ER.24H 75 MG PO (11:50)
[2022-03-28] MEDS: NIFEdipine ER 60 MG TAB.ER.24 PO (12:03)
[2022-03-28] MEDS: Valsartan 80 MG TABLET PO (12:03)
[2022-03-28 12:08] LABS: Glucose, Whole Blood 69 mg/dL (60-115)
[2022-03-28 12:11] VITALS: BP 199/119; PULSE 120; RESP 16; O2SAT 96
--- NOTE | 2022-03-28 12:37 | PC.NURSE ---
B/P MEDS GIVEN DOCUMENTED.
[2022-03-28 12:59] LABS: Glucose, Whole Blood 68 mg/dL (60-115)
[2022-03-28] MEDS: Dextrose 50 % 25 GM/50 ML SYRINGE IVPUSH (13:10)
[2022-03-28 14:08] VITALS: BP 140/68; PULSE 96; RESP 18; O2SAT 97
[2022-03-28 14:21] LABS: Glucose, Whole Blood 134 mg/dL (60-115)
[2022-03-28 14:37] LABS: Anion Gap 11 (12-20); Blood Urea Nitrogen 22 mg/dL (9-16); Calcium 8.1 mg/dL (8.4-10.2); Carbon Dioxide 21 mmol/L (22-29); Chloride 112 mmol/L (96-108); Creatinine Clr Calc Pharmacy 36.5; Estimated Glomerular Filt Rate 27; Glucose Random 139 mg/dL (60-115); Potassium 3.9 mmol/L (3.3-5.1); Sodium 140 mmol/L (135-145)
[2022-03-28 15:04] LABS: Glucose, Whole Blood 118 mg/dL (60-115)
== END 2022-03-28 17:33 | disposition home or self-care (01) ==
PROVIDERS: Student in an Organized Health Care Education/Training Program; Emergency Provider Emergency Medicine
DX: E10.10 Type 1 diabetes mellitus with ketoacidosis without coma (principal); R10.9 Unspecified abdominal pain; Z79.899 Other long term (current) drug therapy; Z79.4 Long term (current) use of insulin
CPT/HCPCS: 36415; 74018; 80048; 80053; 80307; 82009; 82947; 85025; 87040; 93005; 96361; 96365; 96366; 96367; 96375; 99285; J1200; J1885; J2060; J2405; J2765

== ENCOUNTER 2022-04-11 09:10 | Outpatient (REF) | payer MEDICAID, SELFPAY ==
[2022-04-11 09:35] LABS: MANUAL DIFF FLAG NO
[2022-04-11 10:43] LABS: Basophils Absolute Auto 0.1 X10*3/uL (0.0-0.2); Basophils Percent Auto 0.4 % (0-2); Eosinophils Absolute Auto 0.1 X10*3/uL (0.0-0.4); Eosinophils Percent Auto 0.8 % (0-4); Hematocrit 41.3 % (42.0-52.0); Hemoglobin 13.8 g/dl (14.0-18.0); Imm Gran Abs Auto 0.06 X10*3/uL (0.00-0.03); Imm Gran Pct Auto 0.5 % (0.0-0.4); Lymphocytes Absolute Auto 1.7 X10*3/uL (1.2-4.9); Lymphocytes Percent Auto 12.8 % (20-40); Mean Corpuscular HGB Conc 33.4 g/dl (31.0-36.0); Mean Corpuscular Hemoglobin 29.8 pg (27.0-33.0); Mean Corpuscular Volume 89.2 fL (80.0-98.0); Mean Platelet Volume 10.7 fL (9.4-12.4); Monocytes Absolute Auto 0.7 X10*3/uL (0.1-1.2); Monocytes Percent Auto 5.1 % (2-11); Neutrophils Absolute Auto 10.4 x10*3/uL (2.0-8.3); Neutrophils Percent Auto 80.4 % (45-73); Platelet Count 254 X10*3/uL (160-400); Red Blood Count 4.63 X10*6/uL (4.60-5.80); Red Cell Distribution Width 11.7 % (11.0-16.0)
[2022-04-11 11:13] LABS: Alanine Aminotransferase 31 U/L (0-40); Albumin Level 4.1 g/dL (3.5-5.0); Alkaline Phosphatase 91 U/L (39-117); Anion Gap 18 (12-20); Aspartate Amino Transferase 20 U/L (5-37); Bilirubin Total 0.5 mg/dL (0.0-1.0); Blood Urea Nitrogen 36 mg/dL (9-16); Carbon Dioxide 23 mmol/L (22-29); Chloride 105 mmol/L (96-108); Estimated Glomerular Filt Rate 20; Glucose Random 148 mg/dL (60-115); Potassium 4.6 mmol/L (3.3-5.1); Sodium 141 mmol/L (135-145); Total Protein 6.8 g/dL (6.5-8.0)
[2022-04-14 14:14] LABS: Calcium (PTHI) 8.9 mg/dL (8.6-10.3); PTHI 147 pg/mL (16-77)
== END 2022-04-11 09:11 | disposition home or self-care (01) ==
LOC: HO.LAB 09:10
PROVIDERS: PCP Internal Medicine Geriatric Medicine; Visit Provider Internal Medicine Hypertension Specialist
DX: N18.4 Chronic kidney disease, stage 4 (severe) (principal)
CPT/HCPCS: 36415; 80053; 83970; 85025

== ENCOUNTER → 2022-05-13 10:39 | Outpatient (BNVA) | payer MEDICAID, SELFPAY | PROVIDERS: PCP Internal Medicine Geriatric Medicine; Visit Provider Internal Medicine Endocrinology, Diabetes & Metabolism | DX: E10.65 Type 1 diabetes mellitus with hyperglycemia (principal); Z96.41 Presence of insulin pump (external) (internal) | CPT/HCPCS: 82947; 99202 ==

== ENCOUNTER → 2022-06-30 08:55 | Outpatient (BNVA) | payer MEDICAID, SELFPAY | PROVIDERS: PCP Internal Medicine Geriatric Medicine; Visit Provider Registered Nurse Diabetes Educator | DX: Z96.41 Presence of insulin pump (external) (internal) (principal); E10.65 Type 1 diabetes mellitus with hyperglycemia | CPT/HCPCS: 99211 ==

== ENCOUNTER 2022-07-02 11:09 | Outpatient (REF) | payer MEDICAID, SELFPAY | END 2022-07-02 11:10 | disposition home or self-care (01) | LOC: HO.SH 11:09 | PROVIDERS: Visit Provider Internal Medicine Geriatric Medicine | DX: Z13.89 Encounter for screening for other disorder (principal) ==

== ENCOUNTER → 2022-07-07 09:58 | Outpatient (BNVA) | payer MEDICAID, SELFPAY | PROVIDERS: PCP Internal Medicine Geriatric Medicine; Visit Provider Registered Nurse Diabetes Educator | DX: Z46.81 Encounter for fitting and adjustment of insulin pump (principal); E10.65 Type 1 diabetes mellitus with hyperglycemia; Z79.4 Long term (current) use of insulin | CPT/HCPCS: 99211 ==

== ENCOUNTER → 2022-07-11 11:13 | Outpatient (BNVA) | payer MEDICAID, SELFPAY | PROVIDERS: PCP Internal Medicine Geriatric Medicine; Visit Provider Registered Nurse Diabetes Educator | DX: Z46.81 Encounter for fitting and adjustment of insulin pump (principal); E10.65 Type 1 diabetes mellitus with hyperglycemia; Z79.4 Long term (current) use of insulin | CPT/HCPCS: 99211 ==

== ENCOUNTER → 2022-08-01 13:23 | Outpatient (BNVA) | payer MEDICAID, SELFPAY | PROVIDERS: PCP Internal Medicine Geriatric Medicine; Visit Provider Registered Nurse Diabetes Educator | DX: E10.65 Type 1 diabetes mellitus with hyperglycemia (principal) | CPT/HCPCS: 99211 ==

== ENCOUNTER → 2022-08-11 12:27 | Outpatient (BNVA) | payer MEDICAID, SELFPAY | PROVIDERS: PCP Internal Medicine Geriatric Medicine; Visit Provider Registered Nurse Diabetes Educator | DX: Z46.81 Encounter for fitting and adjustment of insulin pump (principal); E10.65 Type 1 diabetes mellitus with hyperglycemia | CPT/HCPCS: 99211 ==

== ENCOUNTER 2022-08-22 20:24 | Emergency (ER) | payer MEDICAID, SELFPAY ==
[2022-08-22] VITALS (7 sets, daily range): BP systolic 137–186; BP diastolic 84–100; PULSE 82–91; RESP 16–18; TEMP 36.7–36.9; O2SAT 94–98; BMI 26.6
--- NOTE | 2022-08-22 20:57 | PC.NURSE ---
Assumed care of pt. Pt legally blind. Sts has been having high blood pressure and leg swelling since yesterday, started with headache today. Sts BP at home in 170/SBP. A50/SBP in ED. No swelling noted. Pt otherwise WNL, no acute distress noted at this time.
--- NOTE | 2022-08-22 21:09 | ED_ITS ---
HPI - Headache General Chief Complaint: Headache Stated Complaint: headache,hypertensive Time Seen by Provider: 08/22/22 20:59 Source: patient Mode of arrival: ambulatory Limitations: no limitations History of Present Illness HPI Narrative: Patient comes to the emergency room complaining of high blood pressure and lower extremity edema. Patient denies chest pain or shortness of breath. Patient states that today he was prescribed Lasix for the 1st time. Patient states that when he got home, took his blood pressure, it was above 170, became concerned and came to the emergency room. At this time, patient is asymptomatic Related Data Home Medications Medication Instructions Recorded Confirmed nortriptyline 50 mg capsule 50 mg PO BEDTIME 01/04/20 03/28/22 omeprazole 40 mg capsule,delayed 40 mg PO DAILY@0630 01/04/20 03/28/22 release pen needle, diabetic 32 gauge x #50 ea 07/12/21 07/12/21 (BD Ultra-Fine Shannan Pen Needle) metoprolol succinate 50 mg 1.5 tab PO DAILY 07/29/21 03/28/22 tablet,extended release 24 hr insulin aspart U-100 100 unit/mL 4 - 6 sliding scale dose subcut 12/27/21 03/28/22 (3 mL) subcutaneous pen TIDAC insulin glargine 100 unit/mL (3 25 unit subcut BEDTIME 03/08/22 03/28/22 mL) subcutaneous pen (Lantus Solostar U-100 Insulin) gabapentin 300 mg capsule 300 mg PO BEDTIME 05/13/22 hydralazine 100 mg tablet 100 mg PO TID 05/13/22 Previous Rx's Medication Instructions Recorded cholecalciferol (vitamin D3) 50 50 mcg PO DAILY 30 days #30 caps 04/05/20 mcg (2,000 unit) capsule atorvastatin 80 mg tablet 80 mg PO DAILY #30 tabs 12/12/20 ezetimibe 10 mg tablet (Zetia) 10 mg PO DAILY 90 days #90 tabs 07/05/21 insulin pump cartridge,automated #1 ea 02/19/22 dose,BT with controller subcutaneous (Omnipod 5 G6 Intro Kit (Gen 5) subcutaneous cartridge with controller) insulin pump cartridge,automated #1 ea 02/19/22 dose,BT with controller subcutaneous (Omnipod 5 G6 Intro Kit (Gen 5) subcutaneous cartridge with controller) nifedipine 60 mg tablet,extended 60 mg PO DAILY #30 tabs 03/11/22 release 24 hr metoclopramide HCl 5 mg tablet 5 mg PO DAILY PRN nausea and 03/15/22 vomiting #14 tabs polyethylene glycol 3350 17 17 g PO BID #238 grams 03/15/22 gram/dose oral powder (Miralax) ondansetron 4 mg disintegrating 4 mg PO Q8H 4 days #12 tabs 03/28/22 tablet insulin aspart U-100 100 unit/mL See Rx Instructions subcut TID #20 07/07/22 subcutaneous solution (Novolog mL U-100 Insulin aspart) Allergies Allergy/AdvReac Type Severity Reaction Status Date / Time gluten Allergy Gastrointestinal Verified 05/13/22 10:46 Upset losartan Allergy Gastrointestinal Verified 05/13/22 10:46 Upset valsartan AdvReac Unknown GI problems Verified 05/13/22 10:46 Review of Systems Review of Systems: Constitutional : No Weight loss, No Fever, No Chills, No Night Sweats, No Fatigue, No Malaise ENT/Mouth : No Hearing loss, No Ear Pain, No Nasal Congestion, No Sinus Pain, No Hoarseness, No sore throat, No Rhinorrhea, No Swallowing Difficulty Eyes: No Eye Pain, No Swelling, No Redness, No Foreign Body, No Discharge, No Vision Changes Cardiovascular : No Chest Pain, No SOB, No Dyspnea on Exertion, No Orthopnea, complaining of mild lower extremity edema,, No Palpitations, complaining of high blood pressure Respiratory : No Cough, No Sputum, No Wheezing, No Smoke Exposure, No Dyspnea Gastrointestinal : No Nausea, No Vomiting, No Diarrhea, No Constipation, No abdominal Pain, No Hematochezia, No Melena Genitourinary : no irregular bleeding, No Dysuria, No Urinary Frequency, No Hematuria, No Urinary Incontinence, No Urgency, No Flank Pain, No Urinary Flow Changes, No Hesitancy Musculoskeletal : No joint pain, No Myalgias, No Joint Swelling Skin : No Skin Lesions, No rash Neuro : No Weakness, No Numbness, No Paresthesias, No Loss of Consciousness, No Dizziness, No Headache Psych : No Anxiety/Panic, No Depression, No SI/HI/AH/VH, No Social Issues, Heme/Lymph: No Bruising, No Bleeding,No Lymphadenopathy Endocrine : No Polyuria, No Polydipsia, No Temperature Intolerance PMFSH Past Medical History Medical History Acid reflux Acute hyperkalemia Acute on chronic kidney failure Background diabetic retinopathy associated with type 2 diabetes mellitus CKD (chronic kidney disease) stage 4, GFR 15-29 ml/min Diabetes type 1, uncontrolled Diabetic gastroparesis Diabetic ketoacidosis 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 Diabetic polyneuropathy associated with type 1 diabetes mellitus Diabetic visual loss, with retinopathy, associated with type 1 diabetes mellitus Essential hypertension Gastritis Hemangioma of liver Hyperglycemia due to type 1 diabetes mellitus Hyperkalemia Hyperlipidemia LDL goal <70 Hypertension associated with diabetes Hypertensive urgency Hypocalcemia Hyponatremia Lactic acidosis due to diabetes mellitus Legally blind Opioid overdose Pancreatitis Polyneuropathy Pulmonary edema Respiratory failure Sciatica Toxic encephalopathy Type 1 diabetes Vitamin D deficiency Withdrawal from recreational drug Surgical History Hx of appendectomy Hx of circumcision Hx of endoscopy Hx of eye surgery Family History Family History Father Diabetes mellitus Mother Diabetes mellitus Maternal Grandfather Diabetes mellitus Maternal Grandmother Diabetes mellitus Social History Social History Household Members: Spouse and Children Household Members Other:: and girlfriend Housing: Apartment Do you presently have visiting nurse or other home services: No Alcohol intake: never Patient Tobacco Use Status: Former Tobacco user Smoked in Last 30 Days: No Second Hand Smoke Exposure: No Use of substances other than those prescribed or required for medical reasons: Yes Substance Use Type: Marijuana Substance Use Frequency: Chronic Longstanding Advance Directives: Yes Advance Directives on File: Yes Advance Directives Date on File: 04/13/20 service: No Current occupational status: disabled Physical Exam Vital Signs: Vital Signs: Last Vital Signs Temp 97.9 F 08/23/22 03:56 Pulse 79 08/23/22 03:56 Resp 18 08/23/22 03:56 BP 144/75 H 08/23/22 03:56 Pulse Ox 97 08/23/22 03:56 O2 Del Method Room Air 08/23/22 03:56 BMI result Body Mass Index 26.6 Const: Other: Appearance: Alert. Oriented X3. No acute distress. Eyes: Chronic cataracts, legally blind ENT: Pharynx normal. Neck: Normal inspection. Neck supple. No lymph nodes noted. No crepitus CVS: Normal heart rate and rhythm. Pulses normal. Normal S1 and S2 Respiratory: No respiratory distress. Breath sounds normal. No Wheezing. No rales Abdomen: Soft and nontender. No rigidity. No distention. Skin: Skin warm and dry. Normal skin color. Normal skin turgor. Extremities: +1 pitting edema bilaterally No Lacerations. No Rash Neuro: Oriented X 3. No motor deficit. No sensory deficit. Moving all extr emities. No slurred speech. CN 2 through 12 grossly intact Psych: calm, cooperative, normal affect Course Course Course Narrative: -patient's blood pressure 150/84. Heart rate 88, patient has trace pitting edema. -of patient's labs, EKG pending Medications Administered Discontinued Medications Generic Name Dose Route Start Last Admin Trade Name Freq PRN Reason Stop Dose Admin Sodium Chloride 1,000 mls @ 999 mls/hr 08/22/22 23:06 08/23/22 03:21 Ns IVCONT 08/23/22 00:06 Infused .Q1H1M ONE Infusion Labetalol HCl 100 mg 08/22/22 21:08 08/22/22 21:32 Labetalol Hcl 100 Mg Tablet PO 08/22/22 21:09 100 mg ONCE ONE Administration Protocol Medical Decision Making Medical Decision Making [facility] Narrative: -admission was initially considered, patient had acute on chronic KAYODE -patient was hydrated, creatinine level improved to baseline levels. -blood pressure improved to 144/75. -patient's initial chest x-ray read as possible in a while pericardium. A chest x-ray two views was ordered, is negative. -patient is symptomatic, ready for discharge Differential Diagnosis Differential Diagnoses: The differential diagnosis associated with the presentation includes (Acute kidney injury, dehydration, medication side effect) Admission/Observation Consideration of admission/observation: Escalation of care including admission/observation considered Lab Data [facility] Lab Attestation statement: I reviewed the patient's lab results. (Creatinine improved with hydration) 08/22/22 21:45 08/23/22 03:36 Labs: Lab Results 08/22/22 08/22/22 08/22/22 Range/Units 21:45 21:45 21:45 WBC 8.3 (4.8-10.8) X10*3/uL RBC 3.80 L (4.60-5.80) X10*6/uL Hgb 10.9 L D (14.0-18.0) g/dl Hct 32.5 L D (42.0-52.0) % MCV 85.5 (80.0-98.0) fL MCH 28.7 (27.0-33.0) pg MCHC 33.5 (31.0-36.0) g/dl RDW 12.7 (11.0-16.0) % Plt Count 202 (160-400) X10*3/uL MPV 9.5 (9.4-12.4) fL Immature Gran % (Auto) 0.2 (0.0-0.4) % Neut % (Auto) 65.6 (45-73) % Lymph % (Auto) 23.9 (20-40) % [place] % (Auto) 8.8 (2-11) % Eos % (Auto) 1.1 (0-4) % Baso % (Auto) 0.4 (0-2) % Lymph # (Auto) 2.0 (1.2-4.9) X10*3/uL [place] # (Auto) 0.7 (0.1-1.2) X10*3/uL Eos # (Auto) 0.1 (0.0-0.4) X10*3/uL Baso # (Auto) 0.0 (0.0-0.2) X10*3/uL Abs Immat Gran (auto) 0.02 (0.00-0.03) X10*3/uL Absolute Neuts (auto) 5.5 (2.0-8.3) x10*3/uL Absolute Nucleated RBC 0.000 (0.0-0.012) X10*3/uL Nucleated RBC % (auto) 0.0 (0.0-0.2) /100WBC Sodium 141 (135-145) mmol/L Potassium 3.9 (3.3-5.1) mmol/L Chloride 109 H (96-108) mmol/L Carbon Dioxide 21 L (22-29) mmol/L Anion Gap 15 (12-20) BUN 44 H (9-16) mg/dL Creatinine 4.05 H* (0.5-1.4) mg/dL Estim Creat Clear Calc 24.9 Estimated GFR 17 Random Glucose 94 (60-115) mg/dL Calcium 8.9 (8.4-10.2) mg/dL Troponin I High Sens 2.9 D (<3.5-35.0) ng/L B-Natriuretic Peptide (<100) pg/mL 08/22/22 08/23/22 Range/Units 21:45 03:36 WBC (4.8-10.8) X10*3/uL RBC (4.60-5.80) X10*6/uL Hgb (14.0-18.0) g/dl Hct (42.0-52.0) % MCV (80.0-98.0) fL MCH (27.0-33.0) pg MCHC (31.0-36.0) g/dl RDW (11.0-16.0) % Plt Count (160-400) X10*3/uL MPV (9.4-12.4) fL Immature Gran % (Auto) (0.0-0.4) % Neut % (Auto) (45-73) % Lymph % (Auto) (20-40) % [place] % (Auto) (2-11) % Eos % (Auto) (0-4) % Baso % (Auto) (0-2) % Lymph # (Auto) (1.2-4.9) X10*3/uL [place] # (Auto) (0.1-1.2) X10*3/uL Eos # (Auto) (0.0-0.4) X10*3/uL Baso # (Auto) (0.0-0.2) X10*3/uL Abs Immat Gran (auto) (0.00-0.03) X10*3/uL Absolute Neuts (auto) (2.0-8.3) x10*3/uL Absolute Nucleated RBC (0.0-0.012) X10*3/uL Nucleated RBC % (auto) (0.0-0.2) /100WBC Sodium 142 (135-145) mmol/L Potassium 3.7 (3.3-5.1) mmol/L Chloride 111 H (96-108) mmol/L Carbon Dioxide 22 (22-29) mmol/L Anion Gap 13 (12-20) BUN 47 H (9-16) mg/dL Creatinine 3.89 H (0.5-1.4) mg/dL Estim Creat Clear Calc 26.0 Estimated GFR 18 Random Glucose 119 H (60-115) mg/dL Calcium 8.6 (8.4-10.2) mg/dL Troponin I High Sens (<3.5-35.0) ng/L B-Natriuretic Peptide 125 H (<100) pg/mL Radiology Impression Discussion of test interpretation with radiology: I have reviewed the radiologist's reading. Radiologist Impression: FINDINGS: The lungs are clear with no focal consolidation. No evidence of pneumothorax, pulmonary edema, or pleural effusions. The cardiomediastinal contour is unremarkable. No findings to suggest pneumopericardium. No acute osseous findings are seen. XR/XR chest 2V IMPRESSION: No acute cardiopulmonary findings. No findings to suggest pneumopericardium. Critical Care Time Critical Care Time Critical Care Time: Yes Total Critical Care Time: 60 Attestation: I have personally provided critical care time. Time includes review of lab data, radiology results, discussion with consultants, and monitoring for potential decompensation. Intervention performed as documented. Discharge Plan Discharge Clinical Impression: Hypertension, Acute kidney injury Patient Disposition: Home, Self-Care Instructions: Hypertension (ED), Acute Kidney Injury (DC) Additional Instructions: Please follow-up with your primary care physician tomorrow. If you have any worsening or new symptoms, please return to the emergency room or call 911 Prescriptions: No Action cholecalciferol (vitamin D3) 50 mcg (2,000 unit) capsule 50 mcg PO DAILY 30 Days Qty: 30 6RF atorvastatin 80 mg tablet 80 mg PO DAILY Qty: 30 6RF ezetimibe [Zetia] 10 mg tablet 10 mg PO DAILY 90 Days Qty: 90 1RF (DME) Omnipod 5 G6 Intro Kit (Gen 5) Cartridge See Rx Instructions .Route Qty: 1 4RF Rx Instructions: As directed (DME) Omnipod 5 G6 Intro Kit (Gen 5) Cartridge See Rx Instructions .Route Qty: 1 4RF Rx Instructions: As directed insulin aspart U-100 [Novolog U-100 Insulin aspart] 100 unit/mL solution See Rx Instructions subcut TID Qty: 20 5RF Rx Instructions: up to 70 units daily via insulin pump subcutaneously 3 times a day; metoprolol succinate 50 mg tablet extended release 24 hr 1.5 tab PO DAILY insulin glargine [Lantus Solostar U-100 Insulin] 100 unit/mL (3 mL) insulin pen 25 unit subcut BEDTIME nifedipine 60 mg Tablet Extended Release 24hr 60 mg PO DAILY Qty: 30 0RF Protocol: Hold for SBP< HOLD for SBP < : 90 metoclopramide HCl 5 mg tablet 5 mg PO DAILY PRN (Reason: nausea and vomiting) Qty: 14 0RF polyethylene glycol 3350 [Miralax] 17 gram/dose powder 17 g PO BID Qty: 238 0RF ondansetron 4 mg tablet,disintegrating 4 mg PO Q8H 4 Days Qty: 12 0RF omeprazole 40 mg capsule,delayed release(DR/EC) 40 mg PO DAILY@0630 nortriptyline 50 mg capsule 50 mg PO BEDTIME (DME) pen needle, diabetic [BD Ultra-Fine Shannan Pen Needle] 32 gauge x 5/32 needle See Rx Instructions .ROUTE QID Qty: 50 Rx Instructions: As directed insulin aspart U-100 100 unit/mL (3 mL) insulin pen 4 - 6 sliding scale dose subcut TIDAC Rx Instructions: sliding scale and put inside omnipod insulin pump gabapentin 300 mg capsule 300 mg PO BEDTIME hydralazine 100 mg tablet 100 mg PO TID Interventions: Admission Worksheet (ED) Last Done: 08/23/22 02:41
--- NOTE | 2022-08-22 21:10 | ECG_ITS ---
Test Reason : GENERAL MEDICAL Blood Pressure : / mmHG Vent. Rate : 086 BPM Atrial Rate : 086 BPM P-R Int : 124 ms QRS Dur : 080 ms QT Int : 370 ms P-R-T Axes : 048 053 054 degrees QTc Int : 442 ms Normal sinus rhythm Normal ECG When compared with ECG of 28-MAR-2022 05:01, Nonspecific T wave abnormality now evident in Lateral leads Referred By: Isamar Mcdowell Electronically Signed By:Joni Peña
[2022-08-22] MEDS: Labetalol HCL 100 MG TABLET PO (21:32)
[2022-08-22 21:49] LABS: MANUAL DIFF FLAG NO
[2022-08-22 21:51] LABS: Basophils Percent Auto 0.4 % (0-2); Eosinophils Absolute Auto 0.1 X10*3/uL (0.0-0.4); Eosinophils Percent Auto 1.1 % (0-4); Hematocrit 32.5 % (42.0-52.0); Hemoglobin 10.9 g/dl (14.0-18.0); Imm Gran Abs Auto 0.02 X10*3/uL (0.00-0.03); Imm Gran Pct Auto 0.2 % (0.0-0.4); Lymphocytes Percent Auto 23.9 % (20-40); Mean Corpuscular HGB Conc 33.5 g/dl (31.0-36.0); Mean Corpuscular Hemoglobin 28.7 pg (27.0-33.0); Mean Corpuscular Volume 85.5 fL (80.0-98.0); Mean Platelet Volume 9.5 fL (9.4-12.4); Monocytes Absolute Auto 0.7 X10*3/uL (0.1-1.2); Monocytes Percent Auto 8.8 % (2-11); Neutrophils Absolute Auto 5.5 x10*3/uL (2.0-8.3); Neutrophils Percent Auto 65.6 % (45-73); Platelet Count 202 X10*3/uL (160-400); Red Cell Distribution Width 12.7 % (11.0-16.0); White Blood Count 8.3 X10*3/uL (4.8-10.8)
[2022-08-22 22:07] LABS: Anion Gap 15 (12-20); Blood Urea Nitrogen 44 mg/dL (9-16); Calcium 8.9 mg/dL (8.4-10.2); Carbon Dioxide 21 mmol/L (22-29); Chloride 109 mmol/L (96-108); Creatinine Clr Calc Pharmacy 24.9; Estimated Glomerular Filt Rate 17; Glucose Random 94 mg/dL (60-115); Potassium 3.9 mmol/L (3.3-5.1); Sodium 141 mmol/L (135-145)
[2022-08-22 22:10] LABS: Troponin-I High Sensitivity 2.9 ng/L (<3.5-35.0)
[2022-08-22] MEDS: 0.9 % Sodium Chloride 1,000 ML 999 ML IVCONT (23:21)
[2022-08-22 23:23] LABS: B Type Natriuretic Peptide 125 pg/mL (<100)
--- NOTE | 2022-08-22 23:24 | MHC.EDTECH ---
This tech assumed care for pt at 2300. Pt is legally blind, call lizarraga placed within reach with tape for pt to fell for button. VS taken and urinal emptied with 300 ml of urine. RN aware
--- NOTE | 2022-08-23 01:19 | MHC.EDTECH ---
This tech asked MD in regards to repeat BMP, to be drawn after fluids are completed per Dr. Mcdowell request.
--- NOTE | 2022-08-23 01:22 | PC.NURSE ---
Pt sleeping, easily rousable, no acute distress at this time. IVF running slowly due to positional nature of IV, aware.
[2022-08-23 02:34] VITALS: PULSE 83; RESP 16; TEMP 36.9; O2SAT 98
--- NOTE | 2022-08-23 02:36 | MHC.EDTECH ---
Per Manuela BP is to be held off due to fluid intake/infiltration on arm.
--- NOTE | 2022-08-23 03:49 | PC.NURSE ---
Pt using urinal with no complications.
[2022-08-23 03:56] VITALS: BP 144/75; PULSE 79; RESP 18; TEMP 36.6; O2SAT 97
[2022-08-23 04:02] LABS: Anion Gap 13 (12-20); Blood Urea Nitrogen 47 mg/dL (9-16); Calcium 8.6 mg/dL (8.4-10.2); Carbon Dioxide 22 mmol/L (22-29); Chloride 111 mmol/L (96-108); Estimated Glomerular Filt Rate 18; Glucose Random 119 mg/dL (60-115); Potassium 3.7 mmol/L (3.3-5.1); Sodium 142 mmol/L (135-145)
[2022-08-23 05:57] VITALS: BP 165/89; PULSE 90; RESP 16; TEMP 37.1; O2SAT 96
== END 2022-08-23 06:15 | disposition home or self-care (01) ==
PROVIDERS: Emergency Provider Emergency Medicine
DX: I10 Essential (primary) hypertension (principal); N17.9 Acute kidney failure, unspecified; E10.9 Type 1 diabetes mellitus without complications; R60.0 Localized edema; F12.90 Cannabis use, unspecified, uncomplicated; Z87.891 Personal history of nicotine dependence; Z79.4 Long term (current) use of insulin; Z79.899 Other long term (current) drug therapy
CPT/HCPCS: 36415; 71045; 71046; 80048; 83880; 84484; 85025; 93005; 96360; 96361; 99285

== ENCOUNTER 2022-10-03 12:38 | Outpatient (REF) | payer MEDICAID, SELFPAY ==
[2022-10-03 17:09] LABS: Anion Gap 15 (12-20); Blood Urea Nitrogen 52 mg/dL (9-16); Calcium 9.4 mg/dL (8.4-10.2); Carbon Dioxide 23 mmol/L (22-29); Chloride 103 mmol/L (96-108); Estimated Glomerular Filt Rate 14; Glucose Random 230 mg/dL (60-115); Potassium 5.8 mmol/L (3.3-5.1); Sodium 135 mmol/L (135-145)
== END 2022-10-03 12:39 | disposition home or self-care (01) ==
LOC: HO.HHCL 12:38
PROVIDERS: Visit Provider Internal Medicine Geriatric Medicine
DX: E10.22 Type 1 diabetes mellitus with diabetic chronic kidney disease (principal); N18.4 Chronic kidney disease, stage 4 (severe)
CPT/HCPCS: 36415; 80048

== ENCOUNTER 2022-10-06 14:49 | Outpatient (REF) | payer MEDICAID, SELFPAY ==
[2022-10-07 02:00] LABS: Anion Gap 13 (12-20); Blood Urea Nitrogen 53 mg/dL (9-16); Calcium 8.9 mg/dL (8.4-10.2); Carbon Dioxide 26 mmol/L (22-29); Chloride 104 mmol/L (96-108); Estimated Glomerular Filt Rate 11; Glucose Random 136 mg/dL (60-115); Sodium 138 mmol/L (135-145)
== END 2022-10-06 14:50 | disposition home or self-care (01) ==
LOC: HO.HHCL 14:49
PROVIDERS: Visit Provider Pediatrics
DX: E10.22 Type 1 diabetes mellitus with diabetic chronic kidney disease (principal); N18.4 Chronic kidney disease, stage 4 (severe)
CPT/HCPCS: 36415; 80048

== ENCOUNTER 2022-10-14 14:37 | Outpatient (AMB) | payer MEDICAID, SELFPAY ==
--- NOTE | 2022-10-14 15:28 | A.OFFVIS_ITS ---
Intake Intake Visit Reasons: dm/ pump Industrial Arts Teacher Required: Yes Industrial Arts Teacher Language: Green Feed Attendant Name: Pasquale [id number] Information Interpreted: non-clinical & clinical Accompanied by: Spouse Allergies gluten Allergy (Verified 05/13/22 10:46) Gastrointestinal Upset losartan Allergy (Verified 05/13/22 10:46) Gastrointestinal Upset valsartan Adverse Reaction (Unknown, Verified 05/13/22 10:46) GI problems HPI Comprehensive Diabetes Asmnt Most Recent Diabetes Results: Creatinine 5.60 mg/dL (0.5-1.4) H* 10/06/22 Blood Urea Nitrogen 53 mg/dL (9-16) H 10/06/22 Sodium 138 mmol/L (135-145) 10/06/22 Potassium 5.0 mmol/L (3.3-5.1) 10/06/22 Chloride 104 mmol/L (96-108) 10/06/22 Carbon Dioxide 26 mmol/L (22-29) 10/06/22 Calcium 8.9 mg/dL (8.4-10.2) 10/06/22 PFSH Medical History Acid reflux Acute hyperkalemia Acute on chronic kidney failure Background diabetic retinopathy associated with type 2 diabetes mellitus CKD (chronic kidney disease) stage 4, GFR 15-29 ml/min Diabetes type 1, uncontrolled Diabetic gastroparesis Diabetic ketoacidosis 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 Diabetic polyneuropathy associated with type 1 diabetes mellitus Diabetic visual loss, with retinopathy, associated with type 1 diabetes mellitus Essential hypertension Gastritis Hemangioma of liver Hyperglycemia due to type 1 diabetes mellitus Hyperkalemia Hyperlipidemia LDL goal <70 Hypertension associated with diabetes Hypertensive urgency Hypocalcemia Hyponatremia Lactic acidosis due to diabetes mellitus Legally blind Opioid overdose Pancreatitis Polyneuropathy Pulmonary edema Respiratory failure Sciatica Toxic encephalopathy Type 1 diabetes Vitamin D deficiency Withdrawal from recreational drug Surgical History Hx of appendectomy Hx of circumcision Hx of endoscopy Hx of eye surgery Family History Father Diabetes mellitus Mother Diabetes mellitus Maternal Grandfather Diabetes mellitus Maternal Grandmother Diabetes mellitus Social History Household Members: Spouse and Children Household Members Other:: and girlfriend Housing: Apartment Do you presently have visiting nurse or other home services: No Alcohol intake: never Patient Tobacco Use Status: Former Tobacco user Second Hand Smoke Exposure: No Substance Use Type: Marijuana Advance Directives Date on File: 04/13/20 service: No Current occupational status: disabled Assessment & Plan Assessment & Plan (1) Diabetes type 1, uncontrolled: Code(s): E10.65 - Type 1 diabetes mellitus with hyperglycemia Plan: Patient presents for pump training for Omnipod 5 pump and CGM training today. ?We are still unable to download pump settings at today's visit,?? patient still cannot connect to [facility] ?patient denies being contacted by anyone from [employer] with instructions on how to connect to [facility] Called Robbin Dunn from [email or web address] during appointment, requested a call back to patient with Slovak-speaking foreign food specialty cook for assistance for the 2nd time. Discussed automatic limited mode, at today's visit explained to patient if pump loses connection with Dexcom or if maximum delivery of basal insulin is for greater than 4 hours pump will switch into limited mode. Patient needs to respond to prompts on PDM to switch back into automatic mode CGM ?patient is having some post meal hypoglycemia,? this may be due to patient over correcting or correcting within 1-2 hours after initial mealtime bolus Low alert:? 80 mg/dL High alert:? 180 mg/dL ?reviewed patient's Dexcom data ?patient above target 30% ?patient at target 69% ?patient below target 1% ?patient's average glucose for the past 2 weeks 163 mg/dL Troubleshooting after starting new pod or inserting new insulin set: Occlusion, adhesive tape sensitivity, redness Check BG 2 hours after site change Patient understands the basic concepts of pump therapy, how to give insulin for meals and snacks, how to troubleshoot for hyper and hypoglycemia. Reminded patient not to do more than 1 correction every 3-1/2 hours when glucose levels are high No changes to settings at today's visit Basal rate(s) (units/hour) : ?12 AM to 7 AM 1.25 units/hr? 7 AM to 12 AM 1.0 units /hr Bolus setting Insulin Carbohydrate Ratio (s) 12 AM to 12 AM? 1 unit:11gm? Correction Factor / Sensitivity Factor 12 AM to 12 AM? 1 unit / 60 mg/dL 12 AM to 7 AM??1 unit / 70 mg/dL 7 AM to 12 AM? 1 unit / 60 mg/dL Active Insulin Time:? 3 hours Target(s): 12 AM to 12 AM 120 mg/dL Coding Level of Care Code Est Pt Level 1 (50211) Diagnoses Diabetes type 1, uncontrolled E10.65
== END 2022-10-14 15:45 | disposition home or self-care (01) ==
PROVIDERS: PCP Internal Medicine Geriatric Medicine; Visit Provider Registered Nurse Diabetes Educator
DX: E10.65 Type 1 diabetes mellitus with hyperglycemia (principal)

== ENCOUNTER → 2022-10-14 14:37 | Outpatient (BNVA) | payer MEDICAID, SELFPAY | PROVIDERS: PCP Internal Medicine Geriatric Medicine; Visit Provider Registered Nurse Diabetes Educator | DX: Z46.81 Encounter for fitting and adjustment of insulin pump (principal); E10.65 Type 1 diabetes mellitus with hyperglycemia; Z79.4 Long term (current) use of insulin | CPT/HCPCS: 99211 ==

== ENCOUNTER 2022-10-15 15:25 | Observation (INO) | payer MEDICAID, SELFPAY ==
--- NOTE | ~2022-10-15 | CT_ITS ---
EXAMINATION: CT ABDOMEN AND PELVIS WITHOUT CONTRAST CLINICAL INFORMATION: Acute severe abdominal pain COMPARISON: Multiple prior CT scans of the abdomen and pelvis most recently 03/14/2022 TECHNIQUE: Multidetector volumetric imaging was performed from the superior aspect of the liver through the pubic symphysis. Sagittal and coronal reformatted images were obtained on the technologist's workstation. This CT examination was performed using dose optimization techniques as appropriate, variously including the following: *Automated exposure control *Adjustment of mA and/or kV according to patient size (this includes techniques or standardized protocols for targeted exams where dose is matched to indication/reason for exam; i.e. extremities or head) *Use of iterative reconstruction technique DLP: 497 mGy-cm FINDINGS: LUNG BASES: Some bibasilar atelectasis is present. No infiltrates, effusions or lung masses. LIVER, GALLBLADDER, AND BILIARY TREE: The liver is normal in size, shape, and attenuation. No focal hepatic lesion or biliary ductal dilatation is present. The gallbladder is unremarkable with no evidence of radiopaque gallstones, gallbladder wall thickening, or obvious pericholecystic inflammatory changes. PANCREAS: Unremarkable. SPLEEN: Unremarkable. ADRENAL GLANDS: Unremarkable. KIDNEYS AND URETERS: The kidneys are normal in size, shape, and attenuation. No hydronephrosis, hydroureter, or calculi seen. There is marked nonspecific bilateral perinephric stranding. BLADDER: Bladder is markedly distended up to the level of the umbilicus. GASTROINTESTINAL TRACT: The small and large bowel are unremarkable. The appendix is not seen but there is no evidence of appendicitis evidence of appendicitis. ABDOMINAL WALL: No significant hernia is appreciated. LYMPH NODES: Shotty retroperitoneal lymph nodes are present, unchanged from prior, without gross retroperitoneal lymphadenopathy. VASCULAR: Unremarkable. PELVIC VISCERA: Calcification is present in the tunica albuginea. The prostate is minimally enlarged at about 30 mL. Seminal vesicles appear normal. OSSEOUS STRUCTURES: Unremarkable. CT/CT abdomen pelvis wo IV con IMPRESSION: 1. A cause for the patient's severe abdominal pain has not been found. 2. Incidental note made of a markedly distended bladder and mild BPH. Other incidental findings as above. Fleischner guidelines were followed.
[2022-10-15 15:33] VITALS: BP 220/111; BMI 25.8
[2022-10-15 15:43] VITALS: BP 194/113; PULSE 110; RESP 12; TEMP 36.8; O2SAT 95
[2022-10-15 15:54] LABS: Glucose, Whole Blood 469 mg/dL (60-115)
--- NOTE | 2022-10-15 16:28 | ECG_ITS ---
Test Reason : CP Blood Pressure : / mmHG Vent. Rate : 110 BPM Atrial Rate : 110 BPM P-R Int : 150 ms QRS Dur : 092 ms QT Int : 342 ms P-R-T Axes : 059 080 044 degrees QTc Int : 462 ms Sinus tachycardia Otherwise normal ECG When compared with ECG of 22-AUG-2022 21:28, Nonspecific T wave abnormality no longer evident in Lateral leads Heart rate has increased Referred By: Leroy Jorge Electronically Signed By:RAFFAELE MILLER
--- NOTE | 2022-10-15 16:34 | ED.ABDPAIN ---
HPI - Abdominal Pain General Chief Complaint: Abdominal Pain Stated Complaint: abd pain x2 days, vomiting Time Seen by Provider: 10/15/22 16:16 Source: patient Limitations: no limitations History of Present Illness HPI narrative: 37-year-old male with history of diabetes presents with abdominal pain. The pain started today. He describes the pain as 100/10. The pain is constant. There is no clear relieving or exacerbating features. He is unable to describe the type of pain he is experiencing. The pain is generalized. It does not radiate. Patient has never had pain like this before. Patient is having intractable nausea vomiting. Patient has had subjective fevers. He denies any headache. Additionally denies any chest pain or shortness of breath. Related Data Home Medications Medication Instructions Recorded Confirmed nortriptyline 50 mg capsule 50 mg PO BEDTIME 01/04/20 03/28/22 omeprazole 40 mg capsule,delayed 40 mg PO DAILY@0630 01/04/20 03/28/22 release pen needle, diabetic 32 gauge x #50 ea 07/12/21 07/12/21 (BD Ultra-Fine Shannan Pen Needle) metoprolol succinate 50 mg 1.5 tab PO DAILY 07/29/21 03/28/22 tablet,extended release 24 hr insulin aspart U-100 100 unit/mL 4 - 6 sliding scale dose subcut 12/27/21 03/28/22 (3 mL) subcutaneous pen TIDAC insulin glargine 100 unit/mL (3 25 unit subcut BEDTIME 03/08/22 03/28/22 mL) subcutaneous pen (Lantus Solostar U-100 Insulin) gabapentin 300 mg capsule 300 mg PO BEDTIME 05/13/22 hydralazine 100 mg tablet 100 mg PO TID 05/13/22 Previous Rx's Medication Instructions Recorded cholecalciferol (vitamin D3) 50 50 mcg PO DAILY 30 days #30 caps 04/05/20 mcg (2,000 unit) capsule atorvastatin 80 mg tablet 80 mg PO DAILY #30 tabs 12/12/20 ezetimibe 10 mg tablet (Zetia) 10 mg PO DAILY 90 days #90 tabs 07/05/21 insulin pump cartridge,automated #1 ea 02/19/22 dose,BT with controller subcutaneous (Omnipod 5 G6 Intro Kit (Gen 5) subcutaneous cartridge with controller) insulin pump cartridge,automated #1 ea 02/19/22 dose,BT with controller subcutaneous (Omnipod 5 G6 Intro Kit (Gen 5) subcutaneous cartridge with controller) nifedipine 60 mg tablet,extended 60 mg PO DAILY #30 tabs 03/11/22 release 24 hr metoclopramide HCl 5 mg tablet 5 mg PO DAILY PRN nausea and 03/15/22 vomiting #14 tabs polyethylene glycol 3350 17 17 g PO BID #238 grams 03/15/22 gram/dose oral powder (Miralax) ondansetron 4 mg disintegrating 4 mg PO Q8H 4 days #12 tabs 03/28/22 tablet insulin aspart U-100 100 unit/mL See Rx Instructions subcut TID #20 07/07/22 subcutaneous solution (Novolog mL U-100 Insulin aspart) Allergies Allergy/AdvReac Type Severity Reaction Status Date / Time gluten Allergy Gastrointestinal Verified 10/15/22 15:32 Upset losartan Allergy Gastrointestinal Verified 10/15/22 15:32 Upset valsartan AdvReac Unknown GI problems Verified 10/15/22 15:32 Review of Systems Review of Systems CONSTITUTIONAL: Denies weight loss, fever and chills. HEENT: Denies changes in vision and hearing. RESPIRATORY: Denies SOB and cough. CV: Denies palpitations no CP. GI: + abdominal pain, nausea, vomiting no diarrhea. : Denies dysuria and urinary frequency. MSK: Denies myalgia and joint pain. SKIN: Denies rash and pruritus. NEUROLOGICAL: Denies headache and syncope. PSYCHIATRIC: Denies recent changes in mood. Denies anxiety and depression. All other ROS are negative unless in HPI PMFSH Past Medical History Medical History Acid reflux Acute hyperkalemia Acute on chronic kidney failure Background diabetic retinopathy associated with type 2 diabetes mellitus CKD (chronic kidney disease) stage 4, GFR 15-29 ml/min Diabetes type 1, uncontrolled Diabetic gastroparesis Diabetic ketoacidosis 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 Diabetic polyneuropathy associated with type 1 diabetes mellitus Diabetic visual loss, with retinopathy, associated with type 1 diabetes mellitus Essential hypertension Gastritis Hemangioma of liver Hyperglycemia due to type 1 diabetes mellitus Hyperkalemia Hyperlipidemia LDL goal <70 Hypertension associated with diabetes Hypertensive urgency Hypocalcemia Hyponatremia Lactic acidosis due to diabetes mellitus Legally blind Opioid overdose Pancreatitis Polyneuropathy Pulmonary edema Respiratory failure Sciatica Toxic encephalopathy Type 1 diabetes Vitamin D deficiency Withdrawal from recreational drug Surgical History Hx of appendectomy Hx of circumcision Hx of endoscopy Hx of eye surgery Family History Family History Father Diabetes mellitus Mother Diabetes mellitus Maternal Grandfather Diabetes mellitus Maternal Grandmother Diabetes mellitus Social History Social History Household Members: Spouse and Children Household Members Other:: and girlfriend Housing: Apartment Do you presently have visiting nurse or other home services: No Alcohol intake: never Patient Tobacco Use Status: Former Tobacco user Smoked in Last 30 Days: No Second Hand Smoke Exposure: No Use of substances other than those prescribed or required for medical reasons: Yes Substance Use Type: Marijuana Substance Use Frequency: Daily Last Used Substance: Hours (ago) Advance Directives: Yes Advance Directives on File: Yes Advance Directives Date on File: 04/13/20 service: No Current occupational status: disabled Physical Exam ED Vital Signs: Vital Signs - 24 hr 10/15/22 15:43 10/15/22 18:24 10/15/22 19:08 Temperature 98.2 F Pulse Rate 110 H 112 H 99 Respiratory Rate 12 14 14 Blood Pressure 194/113 H 206/112 H 201/112 H Pulse Oximetry 95 94 95 Oxygen Delivery Method Room Air Room Air Room Air 10/15/22 20:00 10/15/22 22:00 10/16/22 00:26 Temperature 98.4 F 98.3 F 98.5 F Pulse Rate 101 H 105 H 96 Respiratory Rate 19 13 18 Blood Pressure 196/104 H 188/100 H 180/106 H Pulse Oximetry 93 95 92 Oxygen Delivery Method Room Air Room Air Room Air 10/16/22 00:55 Temperature Pulse Rate 101 H Respiratory Rate 18 Blood Pressure 154/94 H Pulse Oximetry 94 Oxygen Delivery Method Room Air BMI result Body Mass Index 25.8 GEN: Well developed, no acute distress, alert, oriented HEENT: Normocephalic, atraumatic, normal external ears, nose appears normal, no oropharyngeal edema or exudates Neck: Supple, no lymphadenopathy Respiratory: Talks in complete sentences, no respiratory distress, clear to auscultation bilaterally Cardiovascular: Regular rate and rhythm, no murmurs rubs or gallops , tachycardic Abdomen: Soft, generalized abdominal tenderness with guarding, nondistended, no rebound Back: No CVA tenderness Extremities: No clubbing cyanosis or edema Neurologic: No focal neurologic deficits, cranial nerves 2-12 intact, strength is 5/5 bilaterally Skin: No rash Course Reevaluation(s) Reevaluation #1: patient is in 7/10 pain after voiding. Additionall BP remains uncontrolled. Will give IV labetolol and reevaluate. Patient will need to be admitted for BP management. Time: 23:09 Reevaluation #2: patient aware needs advmission hospitalist aware. Time: 00:54 Medical Decision Making Medical Decision Making [facility] Narrative: 37-year-old male with history of diabetes presents with generalized abdominal pain. Exam revealed abdominal tenderness with guarding no rebound. Will obtain a CT scan the abdomen pelvis to rule out of +throughout differential diagnoses. Will also check laboratory analysis to check for any evidence of kidney disease, liver disease, cyst white blood cell count. Differential diagnosis includes peritonitis, cholecystitis, appendicitis, colitis, diverticulitis, mesenteric, epiploic appendagitis, pancreatitis, mesenteric adenitis, IBS, IBD. Differential Diagnosis Differential Diagnoses: The differential diagnosis associated with the presentation includes ( See above) Admission/Observation Consideration of admission/observation: Escalation of care including admission/observation considered Lab Data [facility] Lab Attestation statement: I reviewed the patient's lab results. 10/15/22 16:42 10/15/22 16:42 Labs: Lab Results 10/15/22 10/15/22 10/15/22 Range/Units 15:50 16:42 16:42 WBC 11.2 H (4.8-10.8) X10*3/uL RBC 3.31 L (4.60-5.80) X10*6/uL Hgb 9.6 L (14.0-18.0) g/dl Hct 28.5 L (42.0-52.0) % MCV 86.1 (80.0-98.0) fL MCH 29.0 (27.0-33.0) pg MCHC 33.7 (31.0-36.0) g/dl RDW 11.9 (11.0-16.0) % Plt Count 141 L D (160-400) X10*3/uL MPV 10.1 (9.4-12.4) fL Immature Gran % (Auto) 0.5 H (0.0-0.4) % Neut % (Auto) 91.7 H (45-73) % Lymph % (Auto) 5.3 L (20-40) % Baldwin % (Auto) 2.4 (2-11) % Eos % (Auto) 0.0 (0-4) % Baso % (Auto) 0.1 (0-2) % Lymph # (Auto) 0.6 L (1.2-4.9) X10*3/uL Baldwin # (Auto) 0.3 (0.1-1.2) X10*3/uL Eos # (Auto) 0.0 (0.0-0.4) X10*3/uL Baso # (Auto) 0.0 (0.0-0.2) X10*3/uL Abs Immat Gran (auto) 0.06 H (0.00-0.03) X10*3/uL Absolute Neuts (auto) 10.3 H (2.0-8.3) x10*3/uL Absolute Nucleated RBC 0.000 (0.0-0.012) X10*3/uL Nucleated RBC % (auto) 0.0 (0.0-0.2) /100WBC Smear Tech's Comments VERIFIED Sodium 132 L (135-145) mmol/L Potassium 4.7 (3.3-5.1) mmol/L Chloride 96 (96-108) mmol/L Carbon Dioxide 23 (22-29) mmol/L Anion Gap 18 (12-20) BUN 46 H (9-16) mg/dL Creatinine 4.21 H* (0.5-1.4) mg/dL Estim Creat Clear Calc 23.0 Estimated GFR 16 POC Glucose 469 H* (60-115) mg/dL Random Glucose 487 H* (60-115) mg/dL Estimat Average Glucose Hemoglobin A1c % Lactic Acid (0.5-2.0) mmol/L Lactic Acid F/U @ 2Hr (0.5-2.0) mmol/L Calcium 9.4 (8.4-10.2) mg/dL Total Bilirubin 0.6 (0.0-1.0) mg/dL AST 19 (5-37) U/L ALT 23 (0-40) U/L Alkaline Phosphatase 92 (39-117) U/L Total Protein 7.4 (6.5-8.0) g/dL Albumin 4.0 (3.5-5.0) g/dL Lipase 12 (8-78) U/L Urine Color Urine Appearance Urine pH (5.0-9.0) Ur Specific [place] (1.005-1.025) Urine Protein (Neg-Trace) mg/dL Urine Glucose (UA) (Negative) mg/dL Urine Ketones (Negative) mg/dL Urine Blood (Negative) Urine Nitrite (Negative) Ur Leukocyte Esterase (Negative) Urine RBC (0-2) /HPF Urine WBC (0-5) /HPF Ur Squamous Epith Cells (0-2) /HPF Urine Bacteria (None Seen) Hyaline Casts (0-2) /LPF 10/15/22 10/15/22 10/15/22 Range/Units 16:42 16:42 16:44 WBC (4.8-10.8) X10*3/uL RBC (4.60-5.80) X10*6/uL Hgb (14.0-18.0) g/dl Hct (42.0-52.0) % MCV (80.0-98.0) fL MCH (27.0-33.0) pg MCHC (31.0-36.0) g/dl RDW (11.0-16.0) % Plt Count (160-400) X10*3/uL MPV (9.4-12.4) fL Immature Gran % (Auto) (0.0-0.4) % Neut % (Auto) (45-73) % Lymph % (Auto) (20-40) % Baldwin % (Auto) (2-11) % Eos % (Auto) (0-4) % Baso % (Auto) (0-2) % Lymph # (Auto) (1.2-4.9) X10*3/uL Baldwin # (Auto) (0.1-1.2) X10*3/uL Eos # (Auto) (0.0-0.4) X10*3/uL Baso # (Auto) (0.0-0.2) X10*3/uL Abs Immat Gran (auto) (0.00-0.03) X10*3/uL Absolute Neuts (auto) (2.0-8.3) x10*3/uL Absolute Nucleated RBC (0.0-0.012) X10*3/uL Nucleated RBC % (auto) (0.0-0.2) /100WBC Smear Tech's Comments Sodium (135-145) mmol/L Potassium (3.3-5.1) mmol/L Chloride (96-108) mmol/L Carbon Dioxide (22-29) mmol/L Anion Gap (12-20) BUN (9-16) mg/dL Creatinine (0.5-1.4) mg/dL Estim Creat Clear Calc Estimated GFR POC Glucose (60-115) mg/dL Random Glucose (60-115) mg/dL Estimat Average Glucose Cancelled 140 Hemoglobin A1c % Cancelled 6.5 H Lactic Acid 2.1 H* (0.5-2.0) mmol/L Lactic Acid F/U @ 2Hr (0.5-2.0) mmol/L Calcium (8.4-10.2) mg/dL Total Bilirubin (0.0-1.0) mg/dL AST (5-37) U/L ALT (0-40) U/L Alkaline Phosphatase (39-117) U/L Total Protein (6.5-8.0) g/dL Albumin (3.5-5.0) g/dL Lipase (8-78) U/L Urine Color Urine Appearance Urine pH (5.0-9.0) Ur Specific [place] (1.005-1.025) Urine Protein (Neg-Trace) mg/dL Urine Glucose (UA) (Negative) mg/dL Urine Ketones (Negative) mg/dL Urine Blood (Negative) Urine Nitrite (Negative) Ur Leukocyte Esterase (Negative) Urine RBC (0-2) /HPF Urine WBC (0-5) /HPF Ur Squamous Epith Cells (0-2) /HPF Urine Bacteria (None Seen) Hyaline Casts (0-2) /LPF 10/15/22 10/15/22 10/15/22 Range/Units 16:46 20:20 20:32 WBC (4.8-10.8) X10*3/uL RBC (4.60-5.80) X10*6/uL Hgb (14.0-18.0) g/dl Hct (42.0-52.0) % MCV (80.0-98.0) fL MCH (27.0-33.0) pg MCHC (31.0-36.0) g/dl RDW (11.0-16.0) % Plt Count (160-400) X10*3/uL MPV (9.4-12.4) fL Immature Gran % (Auto) (0.0-0.4) % Neut % (Auto) (45-73) % Lymph % (Auto) (20-40) % Baldwin % (Auto) (2-11) % Eos % (Auto) (0-4) % Baso % (Auto) (0-2) % Lymph # (Auto) (1.2-4.9) X10*3/uL Baldwin # (Auto) (0.1-1.2) X10*3/uL Eos # (Auto) (0.0-0.4) X10*3/uL Baso # (Auto) (0.0-0.2) X10*3/uL Abs Immat Gran (auto) (0.00-0.03) X10*3/uL Absolute Neuts (auto) (2.0-8.3) x10*3/uL Absolute Nucleated RBC (0.0-0.012) X10*3/uL Nucleated RBC % (auto) (0.0-0.2) /100WBC Smear Tech's Comments Sodium (135-145) mmol/L Potassium (3.3-5.1) mmol/L Chloride (96-108) mmol/L Carbon Dioxide (22-29) mmol/L Anion Gap (12-20) BUN (9-16) mg/dL Creatinine (0.5-1.4) mg/dL Estim Creat Clear Calc Estimated GFR POC Glucose 201 H (60-115) mg/dL Random Glucose (60-115) mg/dL Estimat Average Glucose Hemoglobin A1c % Lactic Acid (0.5-2.0) mmol/L Lactic Acid F/U @ 2Hr 2.0 (0.5-2.0) mmol/L Calcium (8.4-10.2) mg/dL Total Bilirubin (0.0-1.0) mg/dL AST (5-37) U/L ALT (0-40) U/L Alkaline Phosphatase (39-117) U/L Total Protein (6.5-8.0) g/dL Albumin (3.5-5.0) g/dL Lipase (8-78) U/L Urine Color Yellow Urine Appearance Clear Urine pH 5.5 (5.0-9.0) Ur Specific [place] 1.015 (1.005-1.025) Urine Protein 300 (3+) H (Neg-Trace) mg/dL Urine Glucose (UA) >=1000 H (Negative) mg/dL Urine Ketones Trace (Negative) mg/dL Urine Blood Trace H (Negative) Urine Nitrite Negative (Negative) Ur Leukocyte Esterase Negative (Negative) Urine RBC 0-2 (0-2) /HPF Urine WBC 0-5 (0-5) /HPF Ur Squamous Epith Cells 0-2 (0-2) /HPF Urine Bacteria None Seen (None Seen) Hyaline Casts 0-2 (0-2) /LPF 10/15/22 10/16/22 Range/Units 21:36 00:34 WBC (4.8-10.8) X10*3/uL RBC (4.60-5.80) X10*6/uL Hgb (14.0-18.0) g/dl Hct (42.0-52.0) % MCV (80.0-98.0) fL MCH (27.0-33.0) pg MCHC (31.0-36.0) g/dl RDW (11.0-16.0) % Plt Count (160-400) X10*3/uL MPV (9.4-12.4) fL Immature Gran % (Auto) (0.0-0.4) % Neut % (Auto) (45-73) % Lymph % (Auto) (20-40) % Baldwin % (Auto) (2-11) % Eos % (Auto) (0-4) % Baso % (Auto) (0-2) % Lymph # (Auto) (1.2-4.9) X10*3/uL Baldwin # (Auto) (0.1-1.2) X10*3/uL Eos # (Auto) (0.0-0.4) X10*3/uL Baso # (Auto) (0.0-0.2) X10*3/uL Abs Immat Gran (auto) (0.00-0.03) X10*3/uL Absolute Neuts (auto) (2.0-8.3) x10*3/uL Absolute Nucleated RBC (0.0-0.012) X10*3/uL Nucleated RBC % (auto) (0.0-0.2) /100WBC Smear Tech's Comments Sodium (135-145) mmol/L Potassium (3.3-5.1) mmol/L Chloride (96-108) mmol/L Carbon Dioxide (22-29) mmol/L Anion Gap (12-20) BUN (9-16) mg/dL Creatinine (0.5-1.4) mg/dL Estim Creat Clear Calc Estimated GFR POC Glucose 173 H 209 H (60-115) mg/dL Random Glucose (60-115) mg/dL Estimat Average Glucose Hemoglobin A1c % Lactic Acid (0.5-2.0) mmol/L Lactic Acid F/U @ 2Hr (0.5-2.0) mmol/L Calcium (8.4-10.2) mg/dL Total Bilirubin (0.0-1.0) mg/dL AST (5-37) U/L ALT (0-40) U/L Alkaline Phosphatase (39-117) U/L Total Protein (6.5-8.0) g/dL Albumin (3.5-5.0) g/dL Lipase (8-78) U/L Urine Color Urine Appearance Urine pH (5.0-9.0) Ur Specific [place] (1.005-1.025) Urine Protein (Neg-Trace) mg/dL Urine Glucose (UA) (Negative) mg/dL Urine Ketones (Negative) mg/dL Urine Blood (Negative) Urine Nitrite (Negative) Ur Leukocyte Esterase (Negative) Urine RBC (0-2) /HPF Urine WBC (0-5) /HPF Ur Squamous Epith Cells (0-2) /HPF Urine Bacteria (None Seen) Hyaline Casts (0-2) /LPF Independent Interpretation I performed an independent interpretation of an: EKG ( sinus tachycardia heart rate 110, no acute ST elevations depressions, nonspecific ST T-wave changes likely rate related.) and CT Scan Radiology Impression Discussion of test interpretation with radiology: I have reviewed the radiologist's reading. Prescription Management I considered prescription management with: Pain Medication and Antibiotic Chronic Conditions Patient?s care impacted by: Diabetes Medications Administered Discontinued Medications Generic Name Dose Route Start Last Admin Trade Name Freq PRN Reason Stop Dose Admin Sodium Chloride 1,000 mls @ 999 mls/hr 10/15/22 16:30 10/15/22 19:01 Ns IV 10/15/22 17:30 Infused .Q1H1M [place]SA[place] Infusion Insulin Human Lispro 15 unit 10/15/22 16:32 10/15/22 17:10 Insulin Lispro 100 Unit/Ml 3 Ml Vial SUBCUT 10/15/22 16:33 15 unit ONCE ONE Administration Labetalol HCl 200 mg 10/15/22 20:51 10/15/22 21:02 Labetalol Hcl 200 Mg Tablet PO 10/15/22 20:52 200 mg ONCE ONE Administration Protocol Labetalol HCl 10 mg 10/15/22 23:08 10/16/22 00:19 Labetalol Hcl 100 Mg/20 Ml Vial IVPUSH 10/15/22 23:09 10 mg ONCE ONE Administration Metoprolol Tartrate 5 mg 10/15/22 18:28 10/15/22 19:02 Metoprolol Tartrate 5 Mg/5 Ml Vial IVPUSH 10/15/22 18:29 5 mg ONCE ONE Administration Morphine Sulfate 4 mg 10/15/22 16:28 10/15/22 17:12 Morphine Sulfate 4 Mg/Ml Cartridge IVPUSH 10/15/22 16:29 4 mg ONCE ONE Administration Protocol Morphine Sulfate 4 mg 10/16/22 00:10 10/16/22 00:19 Morphine Sulfate 4 Mg/Ml Cartridge IVPUSH 10/16/22 00:11 4 mg ONCE ONE Administration Protocol Ondansetron HCl 4 mg 10/15/22 16:28 10/15/22 17:13 Ondansetron Hcl 4 Mg/2 Ml Vial IVPUSH 10/15/22 16:29 4 mg ONCE ONE Administration Critical Care Time Critical Care Time Critical Care Time: Yes Total Critical Care Time: 70 Attestation: Due to a high probability of clinically significant, life threatening deterioration, the patient required my highest level of preparedness to intervene emergently and I personally spent this critical care time directly and personally managing the patient. This critical care time included obtaining a history; examining the patient; pulse oximetry; ordering and review of studies; arranging urgent treatment with development of a management plan; evaluation of patient's response to treatment; frequent reassessment; and, discussions with other providers. This critical care time was performed to assess and manage the high probability of imminent, life-threatening deterioration that could result in multi-organ failure. It was exclusive of separately billable procedures and treating other patients and teaching time. Discharge Plan Discharge Clinical Impression: Abdominal pain, Hypertensive urgency Patient Disposition: Admitted As Inpatient
[2022-10-15 16:53] LABS: Appearance Urine Clear; Color Urine Yellow; Glucose Urine UA >=1000 mg/dL (Negative); Leukocyte Esterase Urine Negative (Negative); Nitrite Urine Negative (Negative); PH 5.5 (5.0-9.0); Specific Gravity - Urine 1.015 (1.005-1.025); UMIC TRIGGER UACC YES; Urine Blood Trace (Negative); Urine Ketones Trace mg/dL (Negative); Urine Protein 300 (3+) mg/dL (Neg-Trace)
[2022-10-15 16:56] LABS: Basophils Percent Auto 0.1 % (0-2); Hematocrit 28.5 % (42.0-52.0); Hemoglobin 9.6 g/dl (14.0-18.0); Imm Gran Abs Auto 0.06 X10*3/uL (0.00-0.03); Imm Gran Pct Auto 0.5 % (0.0-0.4); Lymphocytes Absolute Auto 0.6 X10*3/uL (1.2-4.9); Lymphocytes Percent Auto 5.3 % (20-40); MANUAL DIFF FLAG SCAN; Mean Corpuscular HGB Conc 33.7 g/dl (31.0-36.0); Mean Corpuscular Volume 86.1 fL (80.0-98.0); Mean Platelet Volume 10.1 fL (9.4-12.4); Monocytes Absolute Auto 0.3 X10*3/uL (0.1-1.2); Monocytes Percent Auto 2.4 % (2-11); Neutrophils Absolute Auto 10.3 x10*3/uL (2.0-8.3); Neutrophils Percent Auto 91.7 % (45-73); Platelet Count 141 X10*3/uL (160-400); Red Blood Count 3.31 X10*6/uL (4.60-5.80); Red Cell Distribution Width 11.9 % (11.0-16.0); SCAN SMEAR FLAG 1; White Blood Count 11.2 X10*3/uL (4.8-10.8)
[2022-10-15 17:02] LABS: Bacteria Urine None Seen (None Seen); Hyaline Casts Urine 0-2 /LPF (0-2); RBC Urine 0-2 /HPF (0-2); Squamous Epithelial Cell Urine 0-2 /HPF (0-2); WBC Urine 0-5 /HPF (0-5)
[2022-10-15 17:07] LABS: Estimated Average Glucose 140 mg/dL; Hemoglobin A1c % 6.5 % (<6.0)
[2022-10-15] MEDS: Insulin Lispro 100 UNIT/ML 3 ML VIAL 15 UNIT SUBCUT (17:10)
[2022-10-15] MEDS: 0.9 % Sodium Chloride 1,000 ML 999 ML IV (17:11)
[2022-10-15] MEDS: Morphine Sulfate 4 MG/ML CARTRIDGE IVPUSH (17:12)
[2022-10-15] MEDS: ondansetron HCL 4 MG/2 ML VIAL IVPUSH (17:13)
[2022-10-15 17:21] LABS: Alanine Aminotransferase 23 U/L (0-40); Alkaline Phosphatase 92 U/L (39-117); Anion Gap 18 (12-20); Aspartate Amino Transferase 19 U/L (5-37); Bilirubin Total 0.6 mg/dL (0.0-1.0); Blood Urea Nitrogen 46 mg/dL (9-16); Calcium 9.4 mg/dL (8.4-10.2); Carbon Dioxide 23 mmol/L (22-29); Chloride 96 mmol/L (96-108); Estimated Glomerular Filt Rate 16; Glucose Random 487 mg/dL (60-115); Lipase 12 U/L (8-78); Potassium 4.7 mmol/L (3.3-5.1); Sodium 132 mmol/L (135-145); Total Protein 7.4 g/dL (6.5-8.0)
[2022-10-15 17:22] LABS: Lactic Acid 2.1 mmol/L (0.5-2.0)
[2022-10-15 17:27] LABS: SLIDE REVIEW VERIFIED
--- NOTE | 2022-10-15 17:54 | PC.NURSE ---
Pt currently resting, stated the pain medication was effective. IV patent and running. call lizarraga with in reach.
[2022-10-15 18:24] VITALS: BP 206/112; PULSE 112; RESP 14; O2SAT 94
[2022-10-15 18:49] LABS: Reflex Lactate? Lactic Acid Added
[2022-10-15] MEDS: Metoprolol Tartrate 5 MG/5 ML VIAL IVPUSH (19:02)
[2022-10-15 19:08] VITALS: BP 201/112; PULSE 99; RESP 14; O2SAT 95
[2022-10-15 20:00] VITALS: BP 196/104; PULSE 101; RESP 19; TEMP 36.9; O2SAT 93
[2022-10-15 20:37] LABS: Glucose, Whole Blood 201 mg/dL (60-115)
[2022-10-15] MEDS: Labetalol HCL 200 MG TABLET PO (21:02)
[2022-10-15 21:43] LABS: Glucose, Whole Blood 173 mg/dL (60-115)
[2022-10-15 22:00] VITALS: BP 188/100; PULSE 105; RESP 13; TEMP 36.8; O2SAT 95
[2022-10-16] VITALS (14 sets, daily range): BP systolic 150–206; BP diastolic 88–121; PULSE 94–119; RESP 12–18; TEMP 36.4–37.2; O2SAT 92–97; BMI 27.0
[2022-10-16] MEDS: Labetalol HCL 100 MG/20 ML VIAL 10 MG IVPUSH ×4 (00:19→16:35)
[2022-10-16] MEDS: Morphine Sulfate 4 MG/ML CARTRIDGE IVPUSH (00:19)
--- NOTE | 2022-10-16 00:31 | PC.NURSE ---
Patient continues to be hypertensive, MD aware, labetalol given as documented in chart. Patient's Omnipod indicated BG 116, rechecked with glucometer to ensure accuracy. aware
[2022-10-16 00:38] LABS: Glucose, Whole Blood 209 mg/dL (60-115)
--- NOTE | 2022-10-16 00:58 | PC.NURSE ---
BP rechecked and documented in APR. Patient sleeping at this time, awaiting bed assignment, will continue to monitor until end of shift
[2022-10-16 04:53] LABS: Glucose, Whole Blood 208 mg/dL (60-115)
[2022-10-16 05:35] LABS: Glucose, Whole Blood 202 mg/dL (60-115)
--- NOTE | 2022-10-16 06:14 | PM.IMHP ---
History of Present Illness Date of Service: 10/16/22 Chief Complaint: abdominal pain Citizen Of [place]-speaking, history is obtained with the help of an mica sizer 37-year-old male legally blind, history of diabetes, essential hypertension, diabetic retinopathy, diabetic polyneuropathy, CKD stage 4, HLD, history of hyponatremia, comes into the hospital with complaints of abdominal pain. Pain started today, 100/10, constant, nonradiating, located in left lower quadrant, no exacerbating or relieving factors. Has been having significant nausea and vomiting, has not been able to take his medications or keep anything down for the past 1 day. Had 1 episode of diarrhea. Has no chest pain, no shortness of breath, no cough, no urinary symptoms and no lower extremity edema on arrival to the ED patient was found to have blood pressure of 220/110s labs are significant for WBC count of 11.2, hemoglobin of 9.6, sodium 132, creatinine 4.21 which is around his baseline, lactic of 2.1 improved after IV fluids, UA negative for acute infection, Abdomen pelvic CT shows no cause can be found for patient's severe abdominal pain, he has a distended bladder and mild BPH patient given IV labetalol, with improvement in his blood pressure, Review of Systems Review of Systems: Yes all other systems are reviewed and are negative [facility] Medical History Acid reflux Acute hyperkalemia Acute on chronic kidney failure Background diabetic retinopathy associated with type 2 diabetes mellitus CKD (chronic kidney disease) stage 4, GFR 15-29 ml/min Diabetes type 1, uncontrolled Diabetic gastroparesis Diabetic ketoacidosis 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 Diabetic polyneuropathy associated with type 1 diabetes mellitus Diabetic visual loss, with retinopathy, associated with type 1 diabetes mellitus Essential hypertension Gastritis Hemangioma of liver Hyperglycemia due to type 1 diabetes mellitus Hyperkalemia Hyperlipidemia LDL goal <70 Hypertension associated with diabetes Hypertensive urgency Hypocalcemia Hyponatremia Lactic acidosis due to diabetes mellitus Legally blind Opioid overdose Pancreatitis Polyneuropathy Pulmonary edema Respiratory failure Sciatica Toxic encephalopathy Type 1 diabetes Vitamin D deficiency Withdrawal from recreational drug Family History Father Diabetes mellitus Mother Diabetes mellitus Maternal Grandfather Diabetes mellitus Maternal Grandmother Diabetes mellitus Surgical History Hx of appendectomy Hx of circumcision Hx of endoscopy Hx of eye surgery Social History Household Members: Spouse and Children Household Members Other:: and girlfriend Housing: Apartment Do you presently have visiting nurse or other home services: No Alcohol intake: never Patient Tobacco Use Status: Former Tobacco user Smoked in Last 30 Days: No Second Hand Smoke Exposure: No Use of substances other than those prescribed or required for medical reasons: Yes Substance Use Type: Marijuana Substance Use Frequency: Daily Last Used Substance: Hours (ago) Advance Directives: Yes Advance Directives on File: Yes Advance Directives Date on File: 04/13/20 service: No Current occupational status: disabled Meds Allergies Allergy/AdvReac Type Severity Reaction Status Date / Time gluten Allergy Gastrointestinal Verified 10/15/22 15:32 Upset losartan Allergy Gastrointestinal Verified 10/15/22 15:32 Upset valsartan AdvReac Unknown GI problems Verified 10/15/22 15:32 Home Medications Medication Instructions Recorded Confirmed Last Taken Type nortriptyline 50 mg capsule 50 mg PO BEDTIME 01/04/20 03/28/22 03/06/22 History omeprazole 40 mg capsule,delayed 40 mg PO DAILY@0630 01/04/20 03/28/22 03/06/22 History release pen needle, diabetic 32 gauge x #50 ea 07/12/21 07/12/21 Unknown History (BD Ultra-Fine Shannan Pen Needle) metoprolol succinate 50 mg 1.5 tab PO DAILY 07/29/21 03/28/22 03/06/22 History tablet,extended release 24 hr insulin aspart U-100 100 unit/mL 4 - 6 sliding scale dose subcut 12/27/21 03/28/22 03/07/22 History (3 mL) subcutaneous pen TIDAC insulin glargine 100 unit/mL (3 25 unit subcut BEDTIME 03/08/22 03/28/22 03/07/22 History mL) subcutaneous pen (Lantus Solostar U-100 Insulin) gabapentin 300 mg capsule 300 mg PO BEDTIME 05/13/22 Unknown History hydralazine 100 mg tablet 100 mg PO TID 05/13/22 Unknown History Physical Exam Vital Signs and Narrative: Vital Signs: Last Vital Signs Temp 99.0 F 10/16/22 06:00 Pulse 113 H 10/16/22 06:00 Resp 18 10/16/22 06:00 BP 187/108 H 10/16/22 06:00 Pulse Ox 94 10/16/22 06:00 O2 Del Method Room Air 10/16/22 06:00 BMI result Body Mass Index 25.8 Const: General: cooperative and no acute distress Eyes: Other: legally blind Resp: Effort & Inspection: normal respiratory effort Cardio: Rate: regular rate Rhythm: regular rhythm GI: Palpation (GI): Soft to palpation Auscultation: normal bowel sounds Skin: General skin exam: no rashes or lesions noted Neuro: Other: no neurological deficits Cognition (Neuro): normal cognition Extrem: General: Yes normal to inspection and Yes no pedal edema Results Labs 10/15/22 16:42 10/15/22 16:42 Labs: Laboratory Results - last 24 hr 10/15/22 10/15/22 10/15/22 15:50 16:42 16:42 MCV 86.1 MCH 29.0 MCHC 33.7 RDW 11.9 Plt Count 141 L D MPV 10.1 Immature Gran % (Auto) 0.5 H Neut % (Auto) 91.7 H Lymph % (Auto) 5.3 L [place] % (Auto) 2.4 Eos % (Auto) 0.0 Baso % (Auto) 0.1 Lymph # (Auto) 0.6 L [place] # (Auto) 0.3 Eos # (Auto) 0.0 Baso # (Auto) 0.0 Abs Immat Gran (auto) 0.06 H Absolute Neuts (auto) 10.3 H Absolute Nucleated RBC 0.000 Nucleated RBC % (auto) 0.0 Smear Tech's Comments VERIFIED Anion Gap 18 Estim Creat Clear Calc 23.0 Estimated GFR 16 POC Glucose 469 H* Random Glucose 487 H* Estimat Average Glucose Hemoglobin A1c % Lactic Acid Lactic Acid F/U @ 2Hr Calcium 9.4 Total Bilirubin 0.6 AST 19 ALT 23 Alkaline Phosphatase 92 Total Protein 7.4 Albumin 4.0 Lipase 12 Urine Color Urine Appearance Urine pH Ur Specific [place] Urine Protein Urine Glucose (UA) Urine Ketones Urine Blood Urine Nitrite Ur Leukocyte Esterase Urine RBC Urine WBC Ur Squamous Epith Cells Urine Bacteria Hyaline Casts 08/10/15/22 10/15/22 16:42 16:42 16:44 MCV MCH MCHC RDW Plt Count MPV Immature Gran % (Auto) Neut % (Auto) Lymph % (Auto) [place] % (Auto) Eos % (Auto) Baso % (Auto) Lymph # (Auto) [place] # (Auto) Eos # (Auto) Baso # (Auto) Abs Immat Gran (auto) Absolute Neuts (auto) Absolute Nucleated RBC Nucleated RBC % (auto) Smear Tech's Comments Anion Gap Estim Creat Clear Calc Estimated GFR POC Glucose Random Glucose Estimat Average Glucose Cancelled 140 Hemoglobin A1c % Cancelled 6.5 H Lactic Acid 2.1 H* Lactic Acid F/U @ 2Hr Calcium Total Bilirubin AST ALT Alkaline Phosphatase Total Protein Albumin Lipase Urine Color Urine Appearance Urine pH Ur Specific [place] Urine Protein Urine Glucose (UA) Urine Ketones Urine Blood Urine Nitrite Ur Leukocyte Esterase Urine RBC Urine WBC Ur Squamous Epith Cells Urine Bacteria Hyaline Casts 10/15/22 10/15/22 10/15/22 16:46 20:20 20:32 MCV MCH MCHC RDW Plt Count MPV Immature Gran % (Auto) Neut % (Auto) Lymph % (Auto) [place] % (Auto) Eos % (Auto) Baso % (Auto) Lymph # (Auto) [place] # (Auto) Eos # (Auto) Baso # (Auto) Abs Immat Gran (auto) Absolute Neuts (auto) Absolute Nucleated RBC Nucleated RBC % (auto) Smear Tech's Comments Anion Gap Estim Creat Clear Calc Estimated GFR POC Glucose 201 H Random Glucose Estimat Average Glucose Hemoglobin A1c % Lactic Acid Lactic Acid F/U @ 2Hr 2.0 Calcium Total Bilirubin AST ALT Alkaline Phosphatase Total Protein Albumin Lipase Urine Color Yellow Urine Appearance Clear Urine pH 5.5 Ur Specific [place] 1.015 Urine Protein 300 (3+) H Urine Glucose (UA) >=1000 H Urine Ketones Trace Urine Blood Trace H Urine Nitrite Negative Ur Leukocyte Esterase Negative Urine RBC 0-2 Urine WBC 0-5 Ur Squamous Epith Cells 0-2 Urine Bacteria None Seen Hyaline Casts 0-2 10/15/22 10/16/22 10/16/22 21:36 00:34 03:08 MCV MCH MCHC RDW Plt Count MPV Immature Gran % (Auto) Neut % (Auto) Lymph % (Auto) [place] % (Auto) Eos % (Auto) Baso % (Auto) Lymph # (Auto) [place] # (Auto) Eos # (Auto) Baso # (Auto) Abs Immat Gran (auto) Absolute Neuts (auto) Absolute Nucleated RBC Nucleated RBC % (auto) Smear Tech's Comments Anion Gap Estim Creat Clear Calc Estimated GFR POC Glucose 173 H 209 H 208 H Random Glucose Estimat Average Glucose Hemoglobin A1c % Lactic Acid Lactic Acid F/U @ 2Hr Calcium Total Bilirubin AST ALT Alkaline Phosphatase Total Protein Albumin Lipase Urine Color Urine Appearance Urine pH Ur Specific [place] Urine Protein Urine Glucose (UA) Urine Ketones Urine Blood Urine Nitrite Ur Leukocyte Esterase Urine RBC Urine WBC Ur Squamous Epith Cells Urine Bacteria Hyaline Casts 10/16/22 05:32 MCV MCH MCHC RDW Plt Count MPV Immature Gran % (Auto) Neut % (Auto) Lymph % (Auto) [place] % (Auto) Eos % (Auto) Baso % (Auto) Lymph # (Auto) [place] # (Auto) Eos # (Auto) Baso # (Auto) Abs Immat Gran (auto) Absolute Neuts (auto) Absolute Nucleated RBC Nucleated RBC % (auto) Smear Tech's Comments Anion Gap Estim Creat Clear Calc Estimated GFR POC Glucose 202 H Random Glucose Estimat Average Glucose Hemoglobin A1c % Lactic Acid Lactic Acid F/U @ 2Hr Calcium Total Bilirubin AST ALT Alkaline Phosphatase Total Protein Albumin Lipase Urine Color Urine Appearance Urine pH Ur Specific [place] Urine Protein Urine Glucose (UA) Urine Ketones Urine Blood Urine Nitrite Ur Leukocyte Esterase Urine RBC Urine WBC Ur Squamous Epith Cells Urine Bacteria Hyaline Casts Imaging Radiologist's Impressions: Impressions Abdomen/Pelvis CT 10/15/22 20:00 IMPRESSION: 1. A cause for the patient's severe abdominal pain has not been found. 2. Incidental note made of a markedly distended bladder and mild BPH. Other incidental findings as above. Fleischner guidelines were followed. Assessment and Plan (1) Hypertensive urgency: Status: Acute (2) Abdominal pain: Status: Acute Plan 37-year-old male past medical history of hypertension, CKD stage 4, diabetes comes into the hospital with abdominal pain nausea vomiting # acute abdominal pain nausea vomiting - unclear etiology, likely viral gastroenteritis - CT abdomen negative, abdominal exam benign - will treat with antiemetics, Tylenol p.r.n., supportive measures # hypertensive urgency - due to missed medications in the setting of nausea vomiting - given IV antihypertensives for BP control - will give antiemetics, attempt to give home antihypertensives, IV hydralazine p.r.n. - monitor BP, admit to telemetry # diabetes - continue home insulin - will add low-dose sliding scale insulin - diabetic diet # GERD - continue PPI DVT prophylaxis: Early ambulation Time Spent With Patient Time: Total time managing care of this patient today ____ minutes. Quality Stroke Does the patient have a stroke diagnosis?: No VTE Prior VTE?: No VTE Risk Level:: Medical - low VTE Device Contraindication: Treatment Not Indicated VTE Drug Contraindication: Treatment Not Indicated
[2022-10-16 07:00] LABS: Glucose, Whole Blood 193 mg/dL (60-115)
[2022-10-16] MEDS: Insulin Lispro 100 UNIT/ML 3 ML VIAL SUBCUT ×4 (08:30→20:44)
[2022-10-16] MEDS: 0.9 % Sodium Chloride Flush 3 ML SYRINGE IVFLUSH ×3 (08:31→20:44)
--- NOTE | 2022-10-16 09:09 | PHA.MEDREC ---
Pharmacy Consult ? Medication Reconciliation Pharmacy has completed the medication reconciliation. Spoke to patient to confirm meds. Utilized legal recovery specialist services. Patient had all their meds with them.
--- NOTE | 2022-10-16 09:09 | PM.EVENT ---
Event Note Date of Service: 10/16/22 Event Note: Seen and evaluated Feels better overall Less nausea , no abdominal pain BP still running high To start home BP medications To give Labetalol as needed Time Spent With Patient Time: Total time managing care of this patient today ____ minutes.
[2022-10-16] MEDS: polyethylene glycoL 3350 17 GM POWD.PACK PO (09:32)
[2022-10-16] MEDS: Metoprolol Succinate ER 25 MG TAB.ER.24H 75 MG PO (09:33)
[2022-10-16] MEDS: Atorvastatin Calcium 80 MG TABLET PO (09:33)
[2022-10-16] MEDS: hydrALAZINE HCl 50 MG TABLET 100 MG PO ×3 (09:33→20:45)
[2022-10-16] MEDS: Ezetimibe 10 MG TABLET PO (09:33)
[2022-10-16] MEDS: Cholecalciferol (Vitamin D3) 25 MCG TABLET 50 MCG PO ×2 (09:34→09:40)
[2022-10-16] MEDS: Furosemide 20 MG TABLET PO (09:34)
[2022-10-16] MEDS: NIFEdipine ER 60 MG TAB.ER.24 PO (09:34)
--- NOTE | 2022-10-16 09:48 | PC.NURSE ---
PT IS A/O X 4 NO SOB/WONG NOTED SPEAKS IN FULL SENTENCES. PT IS BLIND IN BOTH EYES. VERY PLEASANT. LUNGS - CTA, HEART SOUNDS - REGULAR. ABD SOFT AND NON-TENDER. PT HAS INSULIN PUMP IN ABD. NO EDEMA NOTED. PT AWARE OF PLAN OF CARE.
[2022-10-16] MEDS: Acetaminophen 325 MG TABLET 650 MG PO (10:59)
[2022-10-16] MEDS: Docusate Sodium 100 MG CAPSULE PO (10:59)
[2022-10-16] MEDS: Metoclopramide HCl 10 MG/2 ML VIAL 5 MG IVPUSH (11:00)
--- NOTE | 2022-10-16 11:08 | MHC.EDTECH ---
pt was cleaned up, sheets, alfredo, pillowcase,blankets changed. Pt was able to turn and roll to each side with no assist. informed FAITH Martinez
[2022-10-16] MEDS: Morphine Sulfate 2 MG/ML CARTRIDGE IVPUSH ×3 (11:18→21:31)
[2022-10-16 11:38] LABS: Glucose, Whole Blood 244 mg/dL (60-115)
--- NOTE | 2022-10-16 12:12 | PC.NURSE ---
rn to rn report given to nereida. pt aware of plan of care for transfer to room 370.
--- NOTE | 2022-10-16 12:44 | PC.NURSE ---
refusing bed alarm.
--- NOTE | 2022-10-16 15:47 | PC.NURSE ---
BP high, MD notified.
--- NOTE | 2022-10-16 16:10 | MHC.CM.PN ---
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
[2022-10-16 16:22] LABS: Glucose, Whole Blood 378 mg/dL (60-115)
[2022-10-16] MEDS: Famotidine 20 MG TABLET PO (18:19)
[2022-10-16 20:12] LABS: Glucose, Whole Blood 205 mg/dL (60-115)
[2022-10-16] MEDS: Gabapentin 300 MG CAPSULE PO (20:45)
[2022-10-16] MEDS: Nortriptyline HCl 25 MG CAPSULE 50 MG PO (20:45)
[2022-10-17] VITALS (9 sets, daily range): BP systolic 131–192; BP diastolic 64–102; PULSE 100–116; RESP 16–20; TEMP 36.3–36.9; O2SAT 95–97
[2022-10-17] MEDS: Omeprazole 40 MG CAPSULE.DR PO (05:38)
[2022-10-17 05:39] LABS: MANUAL DIFF FLAG NO
[2022-10-17 05:43] LABS: Basophils Absolute Auto 0.1 X10*3/uL (0.0-0.2); Basophils Percent Auto 0.5 % (0-2); Eosinophils Absolute Auto 0.1 X10*3/uL (0.0-0.4); Eosinophils Percent Auto 0.7 % (0-4); Hematocrit 39.2 % (42.0-52.0); Hemoglobin 13.2 g/dl (14.0-18.0); Imm Gran Abs Auto 0.03 X10*3/uL (0.00-0.03); Imm Gran Pct Auto 0.3 % (0.0-0.4); Lymphocytes Percent Auto 17.1 % (20-40); Mean Corpuscular HGB Conc 33.7 g/dl (31.0-36.0); Mean Corpuscular Hemoglobin 29.4 pg (27.0-33.0); Mean Corpuscular Volume 87.3 fL (80.0-98.0); Mean Platelet Volume 9.6 fL (9.4-12.4); Monocytes Absolute Auto 0.9 X10*3/uL (0.1-1.2); Monocytes Percent Auto 7.5 % (2-11); Neutrophils Absolute Auto 8.6 x10*3/uL (2.0-8.3); Neutrophils Percent Auto 73.9 % (45-73); Platelet Count 219 X10*3/uL (160-400); Red Blood Count 4.49 X10*6/uL (4.60-5.80); White Blood Count 11.6 X10*3/uL (4.8-10.8)
[2022-10-17 06:09] LABS: Anion Gap 14 (12-20); Blood Urea Nitrogen 41 mg/dL (9-16); Calcium 9.3 mg/dL (8.4-10.2); Carbon Dioxide 25 mmol/L (22-29); Chloride 103 mmol/L (96-108); Creatinine Clr Calc Pharmacy 23.4; Estimated Glomerular Filt Rate 16; Glucose Random 162 mg/dL (60-115); Potassium 4.1 mmol/L (3.3-5.1); Sodium 138 mmol/L (135-145)
[2022-10-17 07:40] LABS: Glucose, Whole Blood 174 mg/dL (60-115)
[2022-10-17] MEDS: Morphine Sulfate 2 MG/ML CARTRIDGE IVPUSH ×3 (08:15→16:15)
[2022-10-17] MEDS: polyethylene glycoL 3350 17 GM POWD.PACK PO ×2 (08:15→20:33)
[2022-10-17] MEDS: Insulin Lispro 100 UNIT/ML 3 ML VIAL SUBCUT ×3 (08:16→20:27)
[2022-10-17] MEDS: 0.9 % Sodium Chloride Flush 3 ML SYRINGE IVFLUSH ×3 (08:16→20:28)
[2022-10-17] MEDS: hydrALAZINE HCl 50 MG TABLET 100 MG PO ×3 (08:18→20:26)
[2022-10-17] MEDS: Ezetimibe 10 MG TABLET PO (08:18)
[2022-10-17] MEDS: Cholecalciferol (Vitamin D3) 25 MCG TABLET 50 MCG PO (08:18)
[2022-10-17] MEDS: NIFEdipine ER 60 MG TAB.ER.24 PO (08:19)
[2022-10-17] MEDS: Metoprolol Succinate ER 100 MG TAB.ER.24H PO (08:19)
[2022-10-17] MEDS: Atorvastatin Calcium 80 MG TABLET PO (08:19)
[2022-10-17] MEDS: Furosemide 20 MG TABLET PO (08:47)
--- NOTE | 2022-10-17 09:51 | HO.PM.IMPN ---
Subjective Subjective Date of Service: 10/17/22 Interval History: Seen and evaluated this morning reporting LLQ pain, no nausea or vomiting No fever, chills or diarrhea BP better controlled tolerating diet Review of Systems Review of Systems: Yes all other systems are reviewed and are negative Physical Exam Vital Signs: Vital Signs: Last Vital Signs Temp 98.3 F 10/17/22 07:31 Pulse 116 H 10/17/22 07:31 Resp 18 10/17/22 07:31 BP 180/102 H 10/17/22 07:31 Pulse Ox 96 10/17/22 07:31 O2 Del Method Room Air 10/17/22 07:31 BMI result Body Mass Index 27.0 Const: Other: Constitutional : Awake, comfortable, blind Neck : Normal inspection, Supple Cardiovascular : RRR, no JVP, no lower extremity edema Respiratory : good bilateral air entry,? no crackles, wheezes or rhonchi Gastrointestinal:? soft, lax, Normal bowel sounds, left lower quadrant mild tenderness noted with no surgical signs Skin : Warm, Dry Neurological : Alert & oriented x3, No focal deficit Objective Data Active Medications Acetaminophen (Acetaminophen 325 Mg Tablet) 650 mg PO Q6H PRN PRN Reason: Pain, Mild (Pain Scale 1-3) Last Admin: 10/16/22 10:59 Dose: 650 mg Documented By: FRANCO Atorvastatin Calcium (Atorvastatin Calcium 80 Mg Tablet) 80 mg PO DAILY [facility] Last Admin: 10/17/22 08:19 Dose: 80 mg Documented By: NOAH Dextrose (Dextrose 50 % 25 Gm/50 Ml Syringe) 25 gm IVPUSH Q15M PRN; Protocol PRN Reason: per Hypoglycemia Standing Ord. Docusate Sodium (Docusate Sodium 100 Mg Capsule) 100 mg PO DAILY PRN PRN Reason: Constipation Last Admin: 10/16/22 10:59 Dose: 100 mg Documented By: FRANCO Ezetimibe (Ezetimibe 10 Mg Tablet) 10 mg PO DAILY [facility] Last Admin: 10/17/22 08:18 Dose: 10 mg Documented By: NOAH Furosemide (Furosemide 20 Mg Tablet) 20 mg PO DAILY [facility]; Protocol Last Admin: 10/17/22 08:47 Dose: 20 mg Documented By: NOAH Gabapentin (Gabapentin 300 Mg Capsule) 300 mg PO BEDTIME [facility] Last Admin: 10/16/22 20:45 Dose: 300 mg Documented By: KRISTEN Glucose (Glucose Gel 15 Gm Gel..Gram.) 15 gm PO Q15M PRN; Protocol PRN Reason: per Hypoglycemia Standing Ord. Hydralazine HCl (Hydralazine Hcl 50 Mg Tablet) 100 mg PO TID [facility]; Protocol Last Admin: 10/17/22 08:18 Dose: 100 mg Documented By: NOAH Insulin Human Lispro (Insulin Lispro 100 Unit/Ml 3 Ml Vial) 0 unit SUBCUT QIDACHS [facility]; Protocol Last Admin: 10/17/22 08:16 Dose: 2 unit Documented By: NOAH Labetalol HCl (Labetalol Hcl 100 Mg/20 Ml Vial) 10 mg IVPUSH Q4H PRN PRN Reason: SBP>190 Last Admin: 10/16/22 16:35 Dose: 10 mg Documented By: NOAH Metoprolol Succinate (Metoprolol Succinate Er 100 Mg Tab.Er.24h) 100 mg PO DAILY [facility]; Protocol Last Admin: 10/17/22 08:19 Dose: 100 mg Documented By: NOAH Morphine Sulfate (Morphine Sulfate 2 Mg/Ml Cartridge) 2 mg IVPUSH Q4H PRN; Protocol PRN Reason: Pain, Severe (Pain Scale 7-10) Last Admin: 10/17/22 08:15 Dose: 2 mg Documented By: NOAH Nifedipine (Nifedipine Er 60 Mg Tab.Er.24) 60 mg PO DAILY [facility]; Protocol Last Admin: 10/17/22 08:19 Dose: 60 mg Documented By: NOAH Nortriptyline HCl (Nortriptyline Hcl 25 Mg Capsule) 50 mg PO BEDTIME [facility] Last Admin: 10/16/22 20:45 Dose: 50 mg Documented By: KRISTEN Omeprazole (Omeprazole 40 Mg Capsule.) 40 mg PO DAILY@0630 [facility] Last Admin: 10/17/22 05:38 Dose: 40 mg Documented By: KRISTEN Ondansetron HCl (Ondansetron Hcl 4 Mg/2 Ml Vial) 4 mg IVPUSH Q8H PRN PRN Reason: Nausea and Vomiting Polyethylene Glycol (Polyethylene Glycol 3350 17 Gm Powd.Pack) 17 gm PO BID [facility] Last Admin: 10/17/22 08:15 Dose: 17 gm Documented By: NOAH Sodium Chloride (0.9 % Sodium Chloride Flush 3 Ml Syringe) 3 ml IVFLUSH QSHIFT [facility] Last Admin: 10/17/22 08:16 Dose: 3 ml Documented By: NOAH Vitamin D (Cholecalciferol (Vitamin D3) 25 Mcg Tablet) 50 mcg PO DAILY [facility] Last Admin: 10/17/22 08:18 Dose: 50 mcg Documented By: NOAH Labs 10/17/22 05:30 10/17/22 05:30 Labs: Laboratory Results - last 24 hr 10/16/22 10/16/22 10/16/22 11:35 16:15 20:00 MCV MCH MCHC RDW Plt Count MPV Immature Gran % (Auto) Neut % (Auto) Lymph % (Auto) [place] % (Auto) Eos % (Auto) Baso % (Auto) Lymph # (Auto) [place] # (Auto) Eos # (Auto) Baso # (Auto) Abs Immat Gran (auto) Absolute Neuts (auto) Absolute Nucleated RBC Nucleated RBC % (auto) Anion Gap Estim Creat Clear Calc Estimated GFR POC Glucose 244 H 378 H* 205 H Random Glucose Calcium 10/17/22 10/17/22 10/17/22 05:30 05:30 07:38 MCV 87.3 MCH 29.4 MCHC 33.7 RDW 12.0 Plt Count 219 D MPV 9.6 Immature Gran % (Auto) 0.3 Neut % (Auto) 73.9 H Lymph % (Auto) 17.1 L [place] % (Auto) 7.5 Eos % (Auto) 0.7 Baso % (Auto) 0.5 Lymph # (Auto) 2.0 [place] # (Auto) 0.9 Eos # (Auto) 0.1 Baso # (Auto) 0.1 Abs Immat Gran (auto) 0.03 Absolute Neuts (auto) 8.6 H Absolute Nucleated RBC 0.000 Nucleated RBC % (auto) 0.0 Anion Gap 14 Estim Creat Clear Calc 23.4 Estimated GFR 16 POC Glucose 174 H Random Glucose 162 H Calcium 9.3 Assessment and Plan (1) Hypertensive urgency: Status: Acute (2) Abdominal pain: Status: Acute Plan 37-year-old male past medical history of hypertension, CKD stage 4, diabetes comes into the hospital with abdominal pain nausea vomiting # acute abdominal pain w nausea vomiting improved nausea and vomiting Could be viral gastroenteritis vs urine retention CT abdomen negative Check bladder scan, check PSA antiemetics, Tylenol p.r.n., supportive measures # hypertensive urgency better controlled due to missed medications in the setting of nausea vomiting IV and PO antihypertensives for BP control Increase Metoprolol , continue Hydralazine and Nifedipine Nephrology consult # diabetes type I on insulin pump diabetic diet # GERD continue PPI DVT prophylaxis: Early ambulation Time Spent With Patient Time: Total time managing care of this patient today ____ minutes. Quality Stroke Does the patient have a stroke diagnosis?: No VTE Prior VTE?: No VTE Risk Level:: Medical - low VTE Device Contraindication: Treatment Not Indicated VTE Drug Contraindication: Treatment Not Indicated
[2022-10-17] MEDS: ondansetron HCL 4 MG/2 ML VIAL IVPUSH (10:18)
[2022-10-17] MEDS: Acetaminophen 325 MG TABLET 650 MG PO ×2 (10:23→20:26)
[2022-10-17] MEDS: Tamsulosin HCL 0.4 MG CAPSULE PO (10:23)
[2022-10-17] MEDS: Labetalol HCL 100 MG/20 ML VIAL 10 MG IVPUSH (10:30)
[2022-10-17 11:16] LABS: Glucose, Whole Blood 170 mg/dL (60-115)
--- NOTE | 2022-10-17 13:56 | MHC.CM.PN ---
PER MD ROUNDS, PT LIKELY TO DC TOMORROW DCP: HOME [facility]ME [employer] S/O TO TRANSPORT
[2022-10-17 16:05] LABS: Glucose, Whole Blood 131 mg/dL (60-115)
[2022-10-17] MEDS: Metoclopramide HCl 5 MG TABLET PO (16:15)
[2022-10-17 19:37] LABS: Prostate Specific Antigen 0.25 ng/mL (<0.05-4.0)
[2022-10-17 20:06] LABS: Glucose, Whole Blood 240 mg/dL (60-115)
[2022-10-17] MEDS: Nortriptyline HCl 25 MG CAPSULE 50 MG PO (20:26)
[2022-10-17] MEDS: Gabapentin 300 MG CAPSULE PO (20:27)
[2022-10-18 04:00] VITALS: BP 164/93; PULSE 114; RESP 16; TEMP 36.4; O2SAT 95
[2022-10-18] MEDS: Omeprazole 40 MG CAPSULE.DR PO (06:30)
[2022-10-18 07:08] VITALS: BP 152/72; PULSE 110; RESP 17; TEMP 36.6; O2SAT 96
[2022-10-18 07:19] LABS: Glucose, Whole Blood 95 mg/dL (60-115)
[2022-10-18] MEDS: Metoclopramide HCl 5 MG TABLET PO (07:59)
[2022-10-18 08:38] LABS: Anion Gap 15 (12-20)
[2022-10-18 08:44] LABS: Blood Urea Nitrogen 38 mg/dL (9-16); Calcium 9.2 mg/dL (8.4-10.2); Carbon Dioxide 26 mmol/L (22-29); Chloride 102 mmol/L (96-108); Creatinine Clr Calc Pharmacy 22.2; Estimated Glomerular Filt Rate 15; Glucose Random 76 mg/dL (60-115); Potassium 3.5 mmol/L (3.3-5.1); Sodium 139 mmol/L (135-145)
[2022-10-18] MEDS: Ezetimibe 10 MG TABLET PO (08:55)
[2022-10-18] MEDS: polyethylene glycoL 3350 17 GM POWD.PACK PO (08:55)
[2022-10-18] MEDS: 0.9 % Sodium Chloride Flush 3 ML SYRINGE IVFLUSH (08:55)
[2022-10-18] MEDS: NIFEdipine ER 60 MG TAB.ER.24 PO (08:55)
[2022-10-18] MEDS: Cholecalciferol (Vitamin D3) 25 MCG TABLET 50 MCG PO (08:55)
[2022-10-18] MEDS: Acetaminophen 325 MG TABLET 650 MG PO (08:55)
[2022-10-18] MEDS: Atorvastatin Calcium 80 MG TABLET PO (08:56)
[2022-10-18] MEDS: hydrALAZINE HCl 50 MG TABLET 100 MG PO (08:56)
[2022-10-18] MEDS: Tamsulosin HCL 0.4 MG CAPSULE PO (08:56)
[2022-10-18] MEDS: Furosemide 20 MG TABLET PO (08:56)
[2022-10-18] MEDS: Metoprolol Succinate ER 100 MG TAB.ER.24H PO (08:56)
--- NOTE | 2022-10-18 10:19 | P.DS_ITS ---
DS: Providers Provider Date of Service: 10/18/22 Date of admission: 10/16/22 06:13 Primary care physician: Hong Rodríguez MD Consults: 10/16/22 16:19 Consult to Nephrology Routine Consulting Provider: Onur Bejarano Reason for consultation: Hypertensive urgency, CKD4 DS: Diagnosis Discharge Diagnosis (1) Hypertensive urgency: Status: Acute (2) Abdominal pain: Status: Acute (3) Benign enlargement of prostate: Status: Acute DS: Summary Hospital Course Hospital Course: Admission note HPI ?Luxembourgish-speaking, history is obtained with the help of an spool tender ?37-year-old male legally blind, history of diabetes, essential hypertension, diabetic retinopathy, diabetic polyneuropathy, CKD stage 4, HLD, history of hyponatremia, comes into the hospital with complaints of abdominal pain.? Pain started today, 100/10, constant, nonradiating, located in left lower quadrant, no exacerbating or relieving factors.? Has been having significant nausea and vomiting, has not been able to take his medications or keep anything down for the past 1 day.? Had 1 episode of diarrhea.? Has no chest pain, no shortness of breath, no cough, no urinary symptoms and no lower extremity edema?. on arrival to the ED patient was found to have blood pressure of 220/110s. ?labs are significant for WBC count of 11.2, hemoglobin of 9.6, sodium 132, creatinine 4.21 which is around his baseline, lactic of 2.1 improved after IV fluids, UA negative for acute infection, Abdomen pelvic CT shows no cause can be found for patient's severe abdominal pain, he has a distended bladder and mild BPH. ?patient given IV labetalol, with improvement in his blood pressure. Hospital course #? acute abdominal pain w nausea vomiting with negative CT scan of abdomen for any acute findings. improved nausea and vomiting with conservative measures and nausea medication. Could be viral gastroenteritis vs urine retention as CT reported enlarged Prostate. PSA normal. Started on Tamsulosin. Tolerated diet and medications well with no reported nausea or vomiting prior to discharge. #? hypertensive urgency at time of presentation due to missed medications in the setting of nausea vomiting. Improved with IV and PO antihypertensives of Labetalol with continuation of Metoprolol , Hydralazine and Nifedipine as he was evaluated by nephrology team who reported good control as outpatient and the need to restart his home medicaitons with no changes. Blood pressure better controlled prior to discharge with a plan to follow with nephrology as outpatient. Tamsulosin started for enlarged prostate. Use Reglan as needed before meals for nausea and indigestion Continue blood pressure medications as prescribed Time Spent with Patient Time attestation: Total time managing care of this patient today ____ minutes. Discharge coordination time: Greater than 30 minutes Quality: Safe Use of Opioids Does Pt have an Active Cancer Diagnosis on the Problem List?: No Quality: Stroke Does the patient have a stroke diagnosis?: No Physical Exam Vital Signs: Vital Signs: Last Vital Signs Temp 97.8 F 10/18/22 07:08 Pulse 110 H 10/18/22 07:08 Resp 17 10/18/22 07:08 BP 152/72 H 10/18/22 07:08 Pulse Ox 96 10/18/22 07:08 O2 Del Method Room Air 10/18/22 07:08 BMI result Body Mass Index 27.0 Const: Other: Constitutional : Awake, comfortable, blind Neck : Normal inspection, Supple Cardiovascular : RRR, no JVP, no lower extremity edema Respiratory : good bilateral air entry,? no crackles, wheezes or rhonchi Gastrointestinal:? soft, lax, Normal bowel sounds, no tenderness or surgical si gns Skin : Warm, Dry Neurological : Alert & oriented x3, No focal deficit DS: Data Data Completed and Pending Completed studies during hospitalization [Text1]: Procedures Insertion of Endotracheal Airway into Trachea, Via Natural or Artificial Opening Endoscopic (07/29/21) Insertion of Infusion Device into Superior Vena Cava, Percutaneous Approach (07/29/21) Introduction of Vasopressor into Peripheral Vein, Percutaneous Approach (07/29/21) Respiratory Ventilation, Greater than 96 Consecutive Hours (07/29/21) Ultrasonography of Superior Vena Cava, Guidance (07/29/21) Labs on day of discharge: Laboratory Results - last 24 hr 10/17/22 10/17/22 10/17/22 10:48 16:01 18:32 Sodium Potassium Chloride Carbon Dioxide Anion Gap BUN Creatinine Estim Creat Clear Calc Estimated GFR POC Glucose 170 H 131 H Random Glucose Calcium Prostate Specific Ag 0.25 10/17/22 10/18/22 10/18/22 20:02 07:06 08:21 Sodium 139 Potassium 3.5 Chloride 102 Carbon Dioxide 26 Anion Gap 15 BUN 38 H Creatinine 4.36 H* Estim Creat Clear Calc 22.2 Estimated GFR 15 POC Glucose 240 H 95 Random Glucose 76 Calcium 9.2 Prostate Specific Ag Imaging CT scan - abdomen: Radiologist's impression: ITS Impressions Abdomen/Pelvis CT 10/15/22 20:00 IMPRESSION: 1. A cause for the patient's severe abdominal pain has not been found. 2. Incidental note made of a markedly distended bladder and mild BPH. Other incidental findings as above. Fleischner guidelines were followed. Discharge Plan Discharge Anticipated Discharge Date/Time: 10/18/22 09:59 Patient Disposition: Home, Self-Care Discharge Diagnosis: Hypertensive urgency Abdominal pain Referrals: Name,MD Hong [Primary Care Provider] - 1 Week Discharge Medications: New metoclopramide HCl 5 mg Tablet 5 mg PO TIDAC PRN (Reason: Nausea and indigestion) Qty: 30 0RF tamsulosin 0.4 mg Capsule 0.4 mg PO DAILY Qty: 30 0RF Continued atorvastatin 80 mg tablet 80 mg PO DAILY Qty: 30 6RF ezetimibe [Zetia] 10 mg tablet 10 mg PO DAILY 90 Days Qty: 90 1RF (DME) Omnipod 5 G6 Intro Kit (Gen 5) Cartridge See Rx Instructions .Route Qty: 1 4RF Rx Instructions: As directed (DME) Omnipod 5 G6 Intro Kit (Gen 5) Cartridge See Rx Instructions .Route Qty: 1 4RF Rx Instructions: As directed metoprolol succinate 50 mg tablet extended release 24 hr 1.5 tab PO DAILY insulin glargine [Lantus Solostar U-100 Insulin] 100 unit/mL (3 mL) insulin p en 22 unit subcut BEDTIME PRN (Reason: pump malfunction) nifedipine 60 mg Tablet Extended Release 24hr 60 mg PO DAILY Qty: 30 0RF Protocol: Hold for SBP< HOLD for SBP < : 90 furosemide 20 mg tablet 20 mg PO DAILY cholecalciferol (vitamin D3) [Vitamin D3] 50 mcg (2,000 unit) capsule 50 mcg PO DAILY omeprazole 40 mg capsule,delayed release(DR/EC) 40 mg PO DAILY@0630 nortriptyline 50 mg capsule 50 mg PO BEDTIME (DME) pen needle, diabetic [BD Ultra-Fine Shannan Pen Needle] 32 gauge x 5/32 needle See Rx Instructions .ROUTE QID Qty: 50 Rx Instructions: As directed insulin aspart U-100 100 unit/mL (3 mL) insulin pen 1 sliding scale dose subcut TIDAC Rx Instructions: sliding scale and put inside omnipod insulin pump gabapentin 300 mg capsule 300 mg PO BEDTIME hydralazine 100 mg tablet 100 mg PO TID Discharge Orders: Discharge Order (Routine); Ordered 10/18/22 Ordered By: Neal Godoy Diet: Low salt diet Activity on Discharge: As tolerated Stand Alone Forms: Patient Portal Discharge page Care Plan Goals: Read below Health Concerns: Read below Plan of Treatment: Read below Assessment: You were admitted for elevated blood pressure readings with abdominal pain and vomiting. Abdominal CT scan was negative for any abnormal findings. your pain and vomiting resolved with controlling blood pressure and nausea medication. could be viral illness. Tamsulosin started for enlarged prostate. Use Reglan as needed before meals for nausea and indigestion Continue blood pressure medications as prescribed
--- NOTE | 2022-10-18 10:21 | MHC.CM.PN ---
PT TO DC HOME WITH RESUMPTION OF [employer] PT TO ARRANGE TRANSPORT
[2022-10-18 11:07] LABS: Glucose, Whole Blood 202 mg/dL (60-115)
[2022-10-19 17:24] LABS: Methylmalonic Acid 254 nmol/L (87-318)
== END 2022-10-18 11:45 | disposition home or self-care (01) ==
LOC: HO.ED 10-16 00:54 → HO.EDOVER 10-16 06:15 → HO.S3 10-16 10:51
PROVIDERS: Admitting Provider Internal Medicine; Emergency Provider Emergency Medicine; PCP Internal Medicine Geriatric Medicine; Visit Provider Student in an Organized Health Care Education/Training Program
DX: I16.0 Hypertensive urgency (principal); I12.9 Hypertensive chronic kidney disease with stage 1 through stage 4 chronic kidney disease, or unspecified chronic kidney disease; E10.22 Type 1 diabetes mellitus with diabetic chronic kidney disease; N18.4 Chronic kidney disease, stage 4 (severe); R10.9 Unspecified abdominal pain; N40.0 Benign prostatic hyperplasia without lower urinary tract symptoms; R07.9 Chest pain, unspecified; R11.2 Nausea with vomiting, unspecified; R00.0 Tachycardia, unspecified; Z79.899 Other long term (current) drug therapy; Z79.4 Long term (current) use of insulin; Z87.891 Personal history of nicotine dependence
CPT/HCPCS: 36415; 74176; 80048; 80053; 81001; 82947; 83036; 83605; 83690; 83921; 84153; 85025; 93005; 96361; 96372; 96374; 96375; 96376; 99221; 99285; J2270; J2405; J2765

== ENCOUNTER → 2022-10-16 06:13 | Outpatient (BNV) | payer MEDICAID, SELFPAY | PROVIDERS: Admitting Provider Internal Medicine; Emergency Provider Emergency Medicine; Visit Provider Internal Medicine | DX: I16.0 Hypertensive urgency (principal); R10.9 Unspecified abdominal pain; N40.0 Benign prostatic hyperplasia without lower urinary tract symptoms | CPT/HCPCS: 99223; 99232; 99239; 99499 ==

== ENCOUNTER 2022-10-23 11:17 | Outpatient (AMB) | payer MEDICAID, SELFPAY ==
--- NOTE | 2022-10-23 11:19 | MHC.OFFVIS ---
Intake Vital Signs 10/23/22 11:23 Height 5 ft 8 in Weight 166 lb 7.184 oz BMI 25.3 BP 136/90 H Blood Pressure Location Lt brachial Position Sitting Pulse 96 Pulse Source Pulse Oximeter Intake Visit Reasons: DM1 with pump and sensor/confirmed Intake Note: Patient present today to follow up on Type 1 Diabetes Mellitus. 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 Dyslipidemia, hypertension, gastritis, sciatic pain, history of pancreatitis Micro and macrovascular complications: retinopathy, nephropathy, neuropathy, Pump settings - we are unable to download his pump settings due to him being unable access is phone. Basal rate(s) (units/hour) : ?12 AM to 7 AM 1.25 units/hr? 7 AM to 12 AM 1.0 units /hr Bolus setting Insulin Carbohydrate Ratio (s) 12 AM to 12 AM? 1 unit:11gm? Correction Factor / Sensitivity Factor 12 AM to 12 AM? 1 unit / 60 mg/dL 12 AM to 7 AM??1 unit / 70 mg/dL 7 AM to 12 AM? 1 unit / 60 mg/dL Active Insulin Time:? 3 hours Target(s): 12 AM to 12 AM 120 mg/dL Using Lantus 25 units Novolog 5-6 units premeals Continuous glucose monitoring: In the past 2 weeks average blood glucose 175 GMI of 7.5 . Sensor active 93%. Blood glucose very low less than <1 %. Blood glucose low less than 70, 3%. Blood glucose in target range of 70-180, 50%. Blood glucose high over 180,34 %. Blood glucose very high over 250 12 %. 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: currently Dental exam: goes every 6 months Ophthalmology evaluation: blind in both eyes Laboratory Tests 01/14/21 03/24/21 13:38 17:20 Creatinine 3.34 H Estimated GFR 21 Hgb A1c (Clinic) 9.1 H 09/26/19 10/04/19 19:35 09:06 Creatinine 1.44 H Est GFR (Non-Af Am er) 56 Hgb A1c Fingerstic k 8.2 [facility] Medical History (Updated 10/23/22 @ 11:39 by Bob Grant MD) Acid reflux Acute hyperkalemia Acute on chronic kidney failure Background diabetic retinopathy associated with type 2 diabetes mellitus CKD (chronic kidney disease) stage 4, GFR 15-29 ml/min Diabetes type 1, uncontrolled Diabetic gastroparesis Diabetic ketoacidosis 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 Diabetic polyneuropathy associated with type 1 diabetes mellitus Diabetic visual loss, with retinopathy, associated with type 1 diabetes mellitus Essential hypertension Gastritis Hemangioma of liver Hyperglycemia due to type 1 diabetes mellitus Hyperkalemia Hyperlipidemia LDL goal <70 Hypertension associated with diabetes Hypertensive urgency Hypocalcemia Hyponatremia Lactic acidosis due to diabetes mellitus Legally blind Opioid overdose Pancreatitis Polyneuropathy Pulmonary edema Respiratory failure Sciatica Toxic encephalopathy Type 1 diabetes Vitamin D deficiency Withdrawal from recreational drug Surgical History Hx of appendectomy Hx of circumcision Hx of endoscopy Hx of eye surgery Family History Father Diabetes mellitus Mother Diabetes mellitus Maternal Grandfather Diabetes mellitus Maternal Grandmother Diabetes mellitus Social History Household Members: Spouse Household Members Other:: and girlfriend Housing: Apartment Do you presently have visiting nurse or other home services: No Alcohol intake: never Patient Tobacco Use Status: Former Tobacco user Second Hand Smoke Exposure: No Substance Use Type: Marijuana Advance Directives Date on File: 04/13/20 service: No Current occupational status: disabled Physical Exam Vital Signs: Last Vital Signs Pulse 96 10/23/22 11:23 BP 136/90 H 08/31/23 11:23 BMI result Body Mass Index 25.3 Absence of Cushingoid features. Absence of acromegalic features. Neck exam reveals nl size thyroid about 15 gms. No thyroid nodules palpable. No carotid bruits present. Lungs CTA. Heart S1 S2, Reg R/R. No M/R/ G. Skin exam reveals absence of vitiligo or acanthosis nigricans. Abdominal exam reveals Soft NT/ND with NA BS. No organomegaly present. Extrem Other: Visual exam of foot performed. No ulcerations or open lesions. No onchomycosis, no callouses.Pulses 2 + distally. Sensation intact to monofilament exam. Vibratory sensation sensed 10 seconds in right, 10 seconds in left with 128 Hz tuning fork Results AMB Hemoglobin A1c AMB Hemoglobin A1c 6.7 % Last Edit by Nadia Trevino on 10/23/22 11:45 Results Reviewed Results Reviewed: 10/23/22 11:32 Glucose, Whole Blood Routine Laboratory Last Values Glucose (Clinic) 166 mg/dL (60-115) H 10/23/22 11:32 Assessment & Plan Assessment & Plan (1) Diabetes type 1, uncontrolled: Code(s): E10.65 - Type 1 diabetes mellitus with hyperglycemia Plan: This is a 37-year-old male with history of type 1 diabetes was being treated with an Omnipod5 pump with Dexcom with excellent improved glycemic control and known microvascular complications namely .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
[2022-10-23 11:23] VITALS: BP 136/90; PULSE 96; BMI 25.3
[2022-10-23 11:36] LABS: Glucose, Whole Blood 166 mg/dL (60-115)
== END 2022-10-23 11:52 | disposition home or self-care (01) ==
PROVIDERS: PCP Internal Medicine Geriatric Medicine; Visit Provider Internal Medicine Endocrinology, Diabetes & Metabolism
DX: E10.65 Type 1 diabetes mellitus with hyperglycemia (principal)
CPT/HCPCS: 99214

== ENCOUNTER → 2022-10-23 11:17 | Outpatient (BNVA) | payer MEDICAID, SELFPAY | PROVIDERS: Visit Provider Internal Medicine Endocrinology, Diabetes & Metabolism | DX: E10.65 Type 1 diabetes mellitus with hyperglycemia (principal); Z96.41 Presence of insulin pump (external) (internal) | CPT/HCPCS: 82947; 83036; 99212 ==

== ENCOUNTER 2022-10-28 07:44 | Outpatient (REF) | payer MEDICAID, SELFPAY ==
[2022-10-28 09:41] LABS: Cholesterol 150 mg/dL (<200); HDL Cholesterol 35 mg/dL (>40); LDL Cholesterol Calculated 91 mg/dL (<100); Triglycerides 124 mg/dL (<150)
[2022-10-28 09:44] LABS: Anion Gap 12 (12-20); Blood Urea Nitrogen 35 mg/dL (9-16); Calcium 9.2 mg/dL (8.4-10.2); Carbon Dioxide 23 mmol/L (22-29); Chloride 109 mmol/L (96-108); Glucose Random 132 mg/dL (60-115); Potassium 4.3 mmol/L (3.3-5.1); Sodium 140 mmol/L (135-145)
[2022-10-28 09:58] LABS: Estimated Glomerular Filt Rate 15
== END 2022-10-28 07:45 | disposition home or self-care (01) ==
LOC: HO.LAB 07:44
PROVIDERS: Absent Provider Internal Medicine Endocrinology, Diabetes & Metabolism; PCP Internal Medicine Geriatric Medicine; Visit Provider Internal Medicine Hypertension Specialist
DX: E10.65 Type 1 diabetes mellitus with hyperglycemia (principal); N18.4 Chronic kidney disease, stage 4 (severe)
CPT/HCPCS: 36415; 80048; 80061

== ENCOUNTER 2022-11-27 15:11 | Emergency (ER) | payer MEDICAID, SELFPAY ==
[2022-11-27 15:20] VITALS: BP 184/102; PULSE 68; RESP 14; TEMP 37.1; O2SAT 98; BMI 25.8
--- NOTE | 2022-11-27 15:34 | ED_ITS ---
HPI - General Adult General Chief complaint: General Medical Stated complaint: hypertension x3 days Related Data Home Medications Medication Instructions Recorded Confirmed nortriptyline 50 mg capsule 50 mg PO BEDTIME 01/04/20 10/16/22 omeprazole 40 mg capsule,delayed 40 mg PO DAILY@0630 01/04/20 10/16/22 release pen needle, diabetic 32 gauge x #50 ea 07/12/21 07/12/21 (BD Ultra-Fine Shannan Pen Needle) metoprolol succinate 50 mg 1.5 tab PO DAILY 07/29/21 10/16/22 tablet,extended release 24 hr insulin aspart U-100 100 unit/mL 1 sliding scale dose subcut TIDAC 12/27/21 10/16/22 (3 mL) subcutaneous pen insulin glargine 100 unit/mL (3 22 unit subcut BEDTIME PRN pump 03/08/22 10/16/22 mL) subcutaneous pen (Lantus malfunction Solostar U-100 Insulin) gabapentin 300 mg capsule 300 mg PO BEDTIME 05/13/22 10/16/22 hydralazine 100 mg tablet 100 mg PO TID 05/13/22 10/16/22 cholecalciferol (vitamin D3) 50 50 mcg PO DAILY 10/16/22 10/16/22 mcg (2,000 unit) capsule (Vitamin D3) furosemide 20 mg tablet 20 mg PO DAILY 10/16/22 10/16/22 Previous Rx's Medication Instructions Recorded atorvastatin 80 mg tablet 80 mg PO DAILY #30 tabs 12/12/20 ezetimibe 10 mg tablet (Zetia) 10 mg PO DAILY 90 days #90 tabs 07/05/21 insulin pump cartridge,automated #1 ea 02/19/22 dose,BT with controller subcutaneous (Omnipod 5 G6 Intro Kit (Gen 5) subcutaneous cartridge with controller) insulin pump cartridge,automated #1 ea 02/19/22 dose,BT with controller subcutaneous (Omnipod 5 G6 Intro Kit (Gen 5) subcutaneous cartridge with controller) nifedipine 60 mg tablet,extended 60 mg PO DAILY #30 tabs 03/11/22 release 24 hr metoclopramide HCl 5 mg tablet 5 mg PO TIDAC PRN Nausea and 10/18/22 indigestion #30 tabs tamsulosin 0.4 mg capsule 0.4 mg PO DAILY #30 caps 10/18/22 Allergies Allergy/AdvReac Type Severity Reaction Status Date / Time gluten Allergy Gastrointestinal Verified 10/23/22 11:24 Upset losartan Allergy Gastrointestinal Verified 10/23/22 11:24 Upset valsartan AdvReac Unknown GI problems Verified 10/23/22 11:24 [facility] Past Medical History Medical History (Updated 12/04/22 @ 09:14 by Jada Ramirez NP) Diabetic gastroparesis CKD (chronic kidney disease) stage 4, GFR 15-29 ml/min Opioid overdose Type 1 diabetes Toxic encephalopathy Withdrawal from recreational drug Acute hyperkalemia Pulmonary edema Respiratory failure Hyponatremia Hyperkalemia Lactic acidosis due to diabetes mellitus Diabetic ketoacidosis Hypertensive urgency Hypertension associated with diabetes Hyperglycemia due to type 1 diabetes mellitus Pancreatitis Vitamin D deficiency Hypocalcemia Background diabetic retinopathy associated with type 2 diabetes mellitus 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 Diabetes type 1, uncontrolled Acute on chronic kidney failure Hemangioma of liver Legally blind Acid reflux Sciatica Gastritis Polyneuropathy Diabetic visual loss, with retinopathy, associated with type 1 diabetes mellitus Diabetic polyneuropathy associated with type 1 diabetes mellitus Essential hypertension Hyperlipidemia LDL goal <70 Surgical History Hx of endoscopy Hx of circumcision Hx of appendectomy Hx of eye surgery Family History Family History Father Diabetes mellitus Mother Diabetes mellitus Maternal Grandfather Diabetes mellitus Maternal Grandmother Diabetes mellitus Social History Social History Household Members: Spouse Household Members Other:: and girlfriend Housing: Apartment Do you presently have visiting nurse or other home services: No Alcohol intake: never Patient Tobacco Use Status: Former Tobacco user Second Hand Smoke Exposure: No Substance Use Type: Marijuana Advance Directives: Yes Advance Directives on File: Yes Advance Directives Date on File: 04/13/20 service: No Current occupational status: disabled Physical Exam ED Vital Signs: Vital Signs - 24 hr 11/27/22 15:20 Temperature 98.7 F Pulse Rate 68 Respiratory Rate 14 Blood Pressure 184/102 H Pulse Oximetry 98 Oxygen Delivery Method Room Air BMI result Body Mass Index 25.8 Course Course Course Narrative: This is a rapid medical exam: Additional HPI, ROS, PE not included below will be deferred to primary provider. Patient is a 29-year-old Cymra[place]-speaking male with history of hypertension, T1 DM, BPH presenting to the emergency department with complaint of headache, nausea, coughing congestion for 5 days. Patient states he has been using [id number] NyQuil and Mucinex for symptoms, did not realize these medications would affect his blood pressure. Hyptertensive in triage. Plan: EKG, labs, CXR, flu and Covid swabs Medical Decision Making Lab Data 11/27/22 15:51 11/27/22 15:51 Labs: Lab Results 11/27/22 Range/Units 15:51 WBC 7.7 (4.8-10.8) X10*3/uL RBC 4.40 L (4.60-5.80) X10*6/uL Hgb 12.9 L (14.0-18.0) g/dl Hct 37.2 L (42.0-52.0) % MCV 84.5 (80.0-98.0) fL MCH 29.3 (27.0-33.0) pg MCHC 34.7 (31.0-36.0) g/dl RDW 12.1 (11.0-16.0) % Plt Count 229 (160-400) X10*3/uL MPV 9.4 (9.4-12.4) fL Immature Gran % (Auto) 0.3 (0.0-0.4) % Neut % (Auto) 67.6 (45-73) % Lymph % (Auto) 21.7 (20-40) % [place] % (Auto) 8.1 (2-11) % Eos % (Auto) 1.7 (0-4) % Baso % (Auto) 0.6 (0-2) % Lymph # (Auto) 1.7 (1.2-4.9) X10*3/uL [place] # (Auto) 0.6 (0.1-1.2) X10*3/uL Eos # (Auto) 0.1 (0.0-0.4) X10*3/uL Baso # (Auto) 0.1 (0.0-0.2) X10*3/uL Abs Immat Gran (auto) 0.02 (0.00-0.03) X10*3/uL Absolute Neuts (auto) 5.2 (2.0-8.3) x10*3/uL Absolute Nucleated RBC 0.000 (0.0-0.012) X10*3/uL Nucleated RBC % (auto) 0.0 (0.0-0.2) /100WBC Sodium 139 (135-145) mmol/L Potassium 4.1 (3.3-5.1) mmol/L Chloride 106 (96-108) mmol/L Carbon Dioxide 19 L (22-29) mmol/L Anion Gap 18 (12-20) BUN 51 H (9-16) mg/dL Creatinine 4.21 H* (0.5-1.4) mg/dL Estim Creat Clear Calc 23.0 Estimated GFR 16 Random Glucose 138 H (60-115) mg/dL Calcium 9.4 (8.4-10.2) mg/dL Troponin I High Sens 3.8 (<3.5-35.0) ng/L Influenza Type A (PCR) NEGATIVE (Negative) Influenza Type B (PCR) NEGATIVE (Negative) RSV RNA Qual (PCR) NEGATIVE (Negative) SARS-CoV-2 RNA (RT-PCR) NEGATIVE (Negative) Discharge Plan Discharge Clinical Impression: Elevated blood pressure reading Patient Disposition: Left W/O Completing Treatment Prescriptions: No Action atorvastatin 80 mg tablet 80 mg PO DAILY Qty: 30 6RF ezetimibe [Zetia] 10 mg tablet 10 mg PO DAILY 90 Days Qty: 90 1RF (DME) Omnipod 5 G6 Intro Kit (Gen 5) Cartridge See Rx Instructions .Route Qty: 1 4RF Rx Instructions: As directed (DME) Omnipod 5 G6 Intro Kit (Gen 5) Cartridge See Rx Instructions .Route Qty: 1 4RF Rx Instructions: As directed metoprolol succinate 50 mg tablet extended release 24 hr 1.5 tab PO DAILY insulin glargine [Lantus Solostar U-100 Insulin] 100 unit/mL (3 mL) insulin pen 22 unit subcut BEDTIME PRN (Reason: pump malfunction) nifedipine 60 mg Tablet Extended Release 24hr 60 mg PO DAILY Qty: 30 0RF Protocol: Hold for SBP< HOLD for SBP < : 90 furosemide 20 mg tablet 20 mg PO DAILY cholecalciferol (vitamin D3) [Vitamin D3] 50 mcg (2,000 unit) capsule 50 mcg PO DAILY metoclopramide HCl 5 mg Tablet 5 mg PO TIDAC PRN (Reason: Nausea and indigestion) Qty: 30 0RF tamsulosin 0.4 mg Capsule 0.4 mg PO DAILY Qty: 30 0RF omeprazole 40 mg capsule,delayed release(DR/EC) 40 mg PO DAILY@0630 nortriptyline 50 mg capsule 50 mg PO BEDTIME (DME) pen needle, diabetic [BD Ultra-Fine Shannan Pen Needle] 32 gauge x 5/32 needle See Rx Instructions .ROUTE QID Qty: 50 Rx Instructions: As directed insulin aspart U-100 100 unit/mL (3 mL) insulin pen 1 sliding scale dose subcut TIDAC Rx Instructions: sliding scale and put inside omnipod insulin pump gabapentin 300 mg capsule 300 mg PO BEDTIME hydralazine 100 mg tablet 100 mg PO TID Discharge Date/Time: 11/27/22 20:19
[2022-11-27 15:57] LABS: MANUAL DIFF FLAG NO
[2022-11-27 16:00] LABS: Basophils Absolute Auto 0.1 X10*3/uL (0.0-0.2); Basophils Percent Auto 0.6 % (0-2); Eosinophils Absolute Auto 0.1 X10*3/uL (0.0-0.4); Eosinophils Percent Auto 1.7 % (0-4); Hematocrit 37.2 % (42.0-52.0); Hemoglobin 12.9 g/dl (14.0-18.0); Imm Gran Abs Auto 0.02 X10*3/uL (0.00-0.03); Imm Gran Pct Auto 0.3 % (0.0-0.4); Lymphocytes Absolute Auto 1.7 X10*3/uL (1.2-4.9); Lymphocytes Percent Auto 21.7 % (20-40); Mean Corpuscular HGB Conc 34.7 g/dl (31.0-36.0); Mean Corpuscular Hemoglobin 29.3 pg (27.0-33.0); Mean Corpuscular Volume 84.5 fL (80.0-98.0); Mean Platelet Volume 9.4 fL (9.4-12.4); Monocytes Absolute Auto 0.6 X10*3/uL (0.1-1.2); Monocytes Percent Auto 8.1 % (2-11); Neutrophils Absolute Auto 5.2 x10*3/uL (2.0-8.3); Neutrophils Percent Auto 67.6 % (45-73); Platelet Count 229 X10*3/uL (160-400); Red Cell Distribution Width 12.1 % (11.0-16.0); White Blood Count 7.7 X10*3/uL (4.8-10.8)
[2022-11-27 16:20] LABS: Troponin-I High Sensitivity 3.8 ng/L (<3.5-35.0)
[2022-11-27 16:44] LABS: Influenza A PCR NEGATIVE (Negative); Influenza B PCR NEGATIVE (Negative); Resp Syncy Virus RNA Qual PCR NEGATIVE (Negative); SARS COV2 PCR INHOUSE NEGATIVE (Negative)
[2022-11-27 16:46] LABS: Anion Gap 18 (12-20); Blood Urea Nitrogen 51 mg/dL (9-16); Calcium 9.4 mg/dL (8.4-10.2); Carbon Dioxide 19 mmol/L (22-29); Chloride 106 mmol/L (96-108); Estimated Glomerular Filt Rate 16; Glucose Random 138 mg/dL (60-115); Potassium 4.1 mmol/L (3.3-5.1); Sodium 139 mmol/L (135-145)
== END 2022-11-27 20:19 | disposition left against medical advice (07) ==
LOC: HO.ED 20:16
PROVIDERS: Registered Nurse Emergency; Emergency Provider Emergency Medicine; PCP Internal Medicine Geriatric Medicine
DX: E10.22 Type 1 diabetes mellitus with diabetic chronic kidney disease (principal); I12.9 Hypertensive chronic kidney disease with stage 1 through stage 4 chronic kidney disease, or unspecified chronic kidney disease; N18.4 Chronic kidney disease, stage 4 (severe); E78.5 Hyperlipidemia, unspecified; Z87.891 Personal history of nicotine dependence; Z79.899 Other long term (current) drug therapy; Z79.4 Long term (current) use of insulin; Z20.822 Contact with and (suspected) exposure to COVID-19; Z20.828 Contact with and (suspected) exposure to other viral communicable diseases
CPT/HCPCS: 0241U; 36415; 71046; 80048; 84484; 85025; 93005; 99283

== ENCOUNTER 2023-02-02 19:40 | Emergency (ER) | payer MEDICAID, SELFPAY ==
--- NOTE | ~2023-02-02 | XR_ITS ---
EXAMINATION: XR CHEST CLINICAL INFORMATION: Pain: COMPARISON: None available. TECHNIQUE: 2 views of the chest were obtained. FINDINGS: No significant abnormality is noted involving the heart, lungs, mediastinum, bony thorax or soft tissues. XR/XR chest 2V IMPRESSION: Unremarkable chest exam.
--- NOTE | ~2023-02-02 | CT_ITS ---
EXAMINATION: CT ABDOMEN AND PELVIS WITHOUT CONTRAST CLINICAL INFORMATION: Left-sided abdominal pain COMPARISON: CT abdomen pelvis 10/15/2022 TECHNIQUE: Multidetector volumetric imaging was performed from the superior aspect of the liver through the pubic symphysis. Sagittal and coronal reformatted images were obtained on the technologist's workstation. This CT examination was performed using dose optimization techniques as appropriate, variously including the following: *Automated exposure control *Adjustment of mA and/or kV according to patient size (this includes techniques or standardized protocols for targeted exams where dose is matched to indication/reason for exam; i.e. extremities or head) *Use of iterative reconstruction technique DLP: 539 mGy-cm FINDINGS: LUNG BASES: Basilar atelectasis improved when compared to prior. No infiltrates, effusions or lung masses. LIVER, GALLBLADDER, AND BILIARY TREE: The liver is normal in size, shape, and attenuation. No focal hepatic lesion or biliary ductal dilatation is present. The gallbladder is unremarkable with no evidence of radiopaque gallstones, gallbladder wall thickening, or obvious pericholecystic inflammatory changes. PANCREAS: Unremarkable. SPLEEN: Unremarkable. ADRENAL GLANDS: Unremarkable. KIDNEYS AND URETERS: The kidneys are normal in size, shape, and attenuation. No hydronephrosis, hydroureter, or calculi seen. Previously seen marked nonspecific bilateral perinephric stranding has improved significantly. BLADDER: Bladder is unremarkable. GASTROINTESTINAL TRACT: The stomach is markedly distended with fluid. A small hiatal hernia is present. The small and large bowel are unremarkable. The appendix is not seen but there is no evidence of appendicitis evidence of appendicitis. ABDOMINAL WALL: No significant hernia is appreciated. LYMPH NODES: Shotty retroperitoneal lymph nodes are present, unchanged from prior, without gross retroperitoneal lymphadenopathy. VASCULAR: Unremarkable. PELVIC VISCERA: Calcification is again noted in the tunica albuginea. The prostate is minimally enlarged . Seminal vesicles appear normal. OSSEOUS STRUCTURES: Unremarkable. CT/CT abdomen pelvis wo IV con IMPRESSION: 1. A cause for the patient's abdominal pain has not been found. 2. The stomach is markedly distended with fluid. 3. Previously seen nonspecific bilateral perinephric stranding has improved significantly. 4. Other incidental findings as described above. Fleischner guidelines were followed.
[2023-02-02 20:43] VITALS: BP 197/122; PULSE 94; RESP 16; TEMP 36.2; O2SAT 98; BMI 25.5
--- NOTE | 2023-02-02 20:44 | ECG_ITS ---
Test Reason : ABD PAIN Blood Pressure : / mmHG Vent. Rate : 095 BPM Atrial Rate : 095 BPM P-R Int : 104 ms QRS Dur : 082 ms QT Int : 370 ms P-R-T Axes : 059 071 046 degrees QTc Int : 464 ms Sinus rhythm with short DC Otherwise normal ECG When compared with ECG of 27-NOV-2022 15:41, No significant change was found Referred By: Vitaliy Bose Electronically Signed By:Joni Peña
[2023-02-02] MEDS: Ondansetron ODT 4 MG TAB.RAPDIS TRANSLINGU (20:46)
--- NOTE | 2023-02-02 20:47 | ED.GENADULT ---
HPI - General Adult General Chief complaint: Abdominal Pain Stated complaint: vomiting, abdominal pain Time Seen by Provider: 02/02/23 23:04 Source: patient Mode of arrival: ambulatory Limitations: no limitations History of Present Illness HPI narrative: Patient diabetic with history of hypertension CKD comes here for nausea vomiting with abdominal pain since yesterday patient also smokes marijuana does get this pain off and on but this time pain is worse has multiple ct scan in the past at least 4 this year which were negative on arrival patient's blood pressure was elevated to 197/122 WBC count was 18k no fever no chills patient missed his medication for last 24 hours Related Data Home Medications Medication Instructions Recorded Confirmed nortriptyline 50 mg capsule 50 mg PO BEDTIME 01/04/20 10/16/22 omeprazole 40 mg capsule,delayed 40 mg PO DAILY@0630 01/04/20 10/16/22 release pen needle, diabetic 32 gauge x #50 ea 07/12/21 07/12/21 (BD Ultra-Fine Shannan Pen Needle) metoprolol succinate 50 mg 1.5 tab PO DAILY 07/29/21 10/16/22 tablet,extended release 24 hr insulin glargine 100 unit/mL (3 22 unit subcut BEDTIME PRN pump 03/08/22 10/16/22 mL) subcutaneous pen (Lantus malfunction Solostar U-100 Insulin) gabapentin 300 mg capsule 300 mg PO BEDTIME 05/13/22 10/16/22 hydralazine 100 mg tablet 100 mg PO TID 05/13/22 10/16/22 cholecalciferol (vitamin D3) 50 50 mcg PO DAILY 10/16/22 10/16/22 mcg (2,000 unit) capsule (Vitamin D3) furosemide 20 mg tablet 20 mg PO DAILY 10/16/22 10/16/22 Previous Rx's Medication Instructions Recorded atorvastatin 80 mg tablet 80 mg PO DAILY #30 tabs 12/12/20 ezetimibe 10 mg tablet (Zetia) 10 mg PO DAILY 90 days #90 tabs 07/05/21 insulin pump cartridge,automated #1 ea 02/19/22 dose,BT with controller subcutaneous (Omnipod 5 G6 Intro Kit (Gen 5) subcutaneous cartridge with controller) insulin pump cartridge,automated #1 ea 02/19/22 dose,BT with controller subcutaneous (Omnipod 5 G6 Intro Kit (Gen 5) subcutaneous cartridge with controller) nifedipine 60 mg tablet,extended 60 mg PO DAILY #30 tabs 03/11/22 release 24 hr metoclopramide HCl 5 mg tablet 5 mg PO TIDAC PRN Nausea and 10/18/22 indigestion #30 tabs tamsulosin 0.4 mg capsule 0.4 mg PO DAILY #30 caps 10/18/22 insulin aspart U-100 100 unit/mL See Rx Instructions subcut TID #20 01/19/23 subcutaneous solution mL Allergies Allergy/AdvReac Type Severity Reaction Status Date / Time gluten Allergy Gastrointestinal Verified 02/02/23 20:42 Upset losartan Allergy Gastrointestinal Verified 02/02/23 20:42 Upset valsartan AdvReac Unknown GI problems Verified 02/02/23 20:42 Review of Systems Review of Systems: Yes all other systems are reviewed and are negative [facility] Past Medical History Medical History Diabetic gastroparesis CKD (chronic kidney disease) stage 4, GFR 15-29 ml/min Opioid overdose Type 1 diabetes Toxic encephalopathy Withdrawal from recreational drug Acute hyperkalemia Pulmonary edema Respiratory failure Hyponatremia Hyperkalemia Lactic acidosis due to diabetes mellitus Diabetic ketoacidosis Hypertensive urgency Hypertension associated with diabetes Hyperglycemia due to type 1 diabetes mellitus Pancreatitis Vitamin D deficiency Hypocalcemia Background diabetic retinopathy associated with type 2 diabetes mellitus 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 Diabetes type 1, uncontrolled Acute on chronic kidney failure Hemangioma of liver Legally blind Acid reflux Sciatica Gastritis Polyneuropathy Diabetic visual loss, with retinopathy, associated with type 1 diabetes mellitus Diabetic polyneuropathy associated with type 1 diabetes mellitus Essential hypertension Hyperlipidemia LDL goal <70 Surgical History Hx of endoscopy Hx of circumcision Hx of appendectomy Hx of eye surgery Family History Family History Father Diabetes mellitus Mother Diabetes mellitus Maternal Grandfather Diabetes mellitus Maternal Grandmother Diabetes mellitus Social History Social History Household Members: Spouse Household Members Other:: and girlfriend Housing: Apartment Do you presently have visiting nurse or other home services: No Alcohol intake: never Comment: refusing fall risk interventions. Patient Tobacco Use Status: Former Tobacco user Smoked in Last 30 Days: No Second Hand Smoke Exposure: No Use of substances other than those prescribed or required for medical reasons: Yes Substance Use Type: Marijuana Last Used Substance: Hours (ago) Advance Directives: Yes Advance Directives on File: Yes Advance Directives Date on File: 04/13/20 service: No Current occupational status: disabled Physical Exam ED Vital Signs: Vital Signs - 24 hr 02/02/23 20:43 02/02/23 22:47 Temperature 97.1 F 98 F Pulse Rate 94 99 Respiratory Rate 16 15 Blood Pressure 197/122 H 196/122 H Pulse Oximetry 98 97 Oxygen Delivery Method Room Air Room Air BMI result Body Mass Index 25.5 Appearance: Alert. Oriented X3. In moderate distress Eyes: Legally blind ENT: Pharynx normal. Oral Mucosa moist Neck: Normal inspection. Neck supple. CVS: Normal heart rate and rhythm. Pulses normal. Respiratory: No respiratory distress. Equal air entry bilateral, no wheezing/rales/rhonchi Abdomen: Soft 0 mild epigastric tenderness, Bowel sounds are present, no mass palpable, no CVA tenderness Skin: Skin warm and dry. Normal skin color. Normal skin turgor. Extremities: No lower extremity edema. No calf tenderness Neuro: Oriented X 3. No motor deficit. No sensory deficit.No cerebellar signs , cranial nerves II-XII intact Course Course Course Narrative: Diabetic patient with history of pancreatitis hypertension neuropathy vision loss complains of nausea beginning yesterday and onset of abdominal and chest pain beginning today accompanied by vomiting, he has vomited 4 times, abdominal pain is mostly upper and mid and the pain in his chest is mostly mid chest, he is still nauseous now, no fainting no shortness of breath, chest pain is not related to exertion Abdominal exam showed tenderness in the epigastric area at this time EKG and blood tests are ordered, patient is given a Zofran This is a rapid medical exam in triage pending full evaluation and disposition in the ER by ER provider Medications Administered Discontinued Medications Generic Name Dose Route Start Last Admin Trade Name Freq PRN Reason Stop Dose Admin Hydralazine HCl 10 mg 02/02/23 23:14 02/02/23 23:30 Hydralazine Hcl 20 Mg/Ml Vial IVPUSH 02/02/23 23:15 10 mg ONCE ONE Administration Protocol Labetalol HCl 20 mg 02/03/23 00:51 02/03/23 00:56 Labetalol Hcl 100 Mg/20 Ml Vial IVPUSH 02/03/23 00:52 20 mg ONCE ONE Administration Morphine Sulfate 4 mg 02/02/23 23:11 02/02/23 23:27 Morphine Sulfate 4 Mg/Ml Cartridge IVPUSH 02/02/23 23:12 4 mg ONCE ONE Administration Protocol Ondansetron HCl 4 mg 02/02/23 20:43 02/02/23 20:46 Ondansetron Odt 4 Mg Tab.Rapdis TRANSLINGU 02/02/23 20:44 4 mg ONCE ONE Administration Prochlorperazine Edisylate 10 mg 02/02/23 23:11 02/02/23 23:30 Prochlorperazine Edisylate 10 Mg/2 Ml Vial IVPUSH 02/02/23 23:12 10 mg ONCE ONE Administration Medical Decision Making Medical Decision Making [facility] Narrative: Patient nonspecific abdominal pain workup is negative except for dehydration elevated WBC count has similar complaints in the past noncompliant to his medication discharge patient home blood pressure control after IV labetalol and hydralazine which was given in the ER symptoms likely from gastroparesis Differential Diagnosis Differential Diagnoses: The differential diagnosis associated with the presentation includes Gastroenteritis/enteritis/gastroparesis/gallstone/kidney stone/UTI Admission/Observation Consideration of admission/observation: Escalation of care including admission/observation considered Lab Data [facility] Lab Attestation statement: I reviewed the patient's lab results. 02/02/23 20:57 02/02/23 20:57 Labs: Lab Results 02/02/23 02/02/23 Range/Units 20:41 20:57 WBC 18.0 H (4.8-10.8) X10*3/uL RBC 5.01 (4.60-5.80) X10*6/uL Hgb 14.7 (14.0-18.0) g/dl Hct 43.1 (42.0-52.0) % MCV 86.0 (80.0-98.0) fL MCH 29.3 (27.0-33.0) pg MCHC 34.1 (31.0-36.0) g/dl RDW 11.9 (11.0-16.0) % Plt Count 279 (160-400) X10*3/uL MPV 9.8 (9.4-12.4) fL Immature Gran % (Auto) 0.3 (0.0-0.4) % Neut % (Auto) 89.1 H (45-73) % Lymph % (Auto) 7.5 L (20-40) % Peach % (Auto) 2.8 (2-11) % Eos % (Auto) 0.1 (0-4) % Baso % (Auto) 0.2 (0-2) % Lymph # (Auto) 1.4 (1.2-4.9) X10*3/uL Peach # (Auto) 0.5 (0.1-1.2) X10*3/uL Eos # (Auto) 0.0 (0.0-0.4) X10*3/uL Baso # (Auto) 0.0 (0.0-0.2) X10*3/uL Abs Immat Gran (auto) 0.06 H (0.00-0.03) X10*3/uL Absolute Neuts (auto) 16.1 H (2.0-8.3) x10*3/uL Absolute Nucleated RBC 0.000 (0.0-0.012) X10*3/uL Nucleated RBC % (auto) 0.0 (0.0-0.2) /100WBC Sodium 140 (135-145) mmol/L Potassium 4.4 (3.3-5.1) mmol/L Chloride 106 (96-108) mmol/L Carbon Dioxide 21 L (22-29) mmol/L Anion Gap 17 (12-20) BUN 44 H (9-16) mg/dL Creatinine 4.39 H* (0.5-1.4) mg/dL Estim Creat Clear Calc 22.0 Estimated GFR 15 POC Glucose 177 H (60-115) mg/dL Random Glucose 209 H (60-115) mg/dL Calcium 9.6 (8.4-10.2) mg/dL Total Bilirubin 0.5 (0.0-1.0) mg/dL Direct Bilirubin 0.2 (0.0-0.5) mg/dL AST 18 (5-37) U/L ALT 23 (0-40) U/L Alkaline Phosphatase 94 (39-117) U/L Troponin I High Sens < 2.7 (<3.5-35.0) ng/L Total Protein 8.2 H (6.5-8.0) g/dL Albumin 4.4 (3.5-5.0) g/dL Lipase 13 (8-78) U/L Urine Color Yellow Urine Appearance Clear Urine pH 7.0 (5.0-9.0) Ur Specific [place] 1.020 (1.005-1.025) Urine Protein >=1000 (4+) H (Neg-Trace) mg/dL Urine Glucose (UA) 500 H (Negative) mg/dL Urine Ketones Trace (Negative) mg/dL Urine Blood Trace H (Negative) Urine Nitrite Negative (Negative) Ur Leukocyte Esterase Negative (Negative) Urine RBC 0-2 (0-2) /HPF Urine WBC 0-5 (0-5) /HPF Ur Squamous Epith Cells 0-2 (0-2) /HPF Urine Bacteria None Seen (None Seen) Hyaline Casts 0-2 (0-2) /LPF Independent Interpretation I performed an independent interpretation of an: CT Scan Radiology Impression Discussion of test interpretation with radiology: I have reviewed the radiologist's reading. Radiologist Impression: [place] [id number] CT Scan Report Signed Patient: Veto Hernandez MR#: [id number] : 1985 Acct:[id number] Age/Sex: 37 / M ADM Date: 02/02/23 Loc: .ED Attending Dr: Ordering Physician: Andre Malhotra MD Date of Service: 02/02/23 Procedure(s): CT abdomen pelvis wo IV con Accession Number(s): [id number] cc: Marcos,Hong FOSS; Andre Malhotra MD~ EXAMINATION: CT ABDOMEN AND PELVIS WITHOUT CONTRAST CLINICAL INFORMATION: Left-sided abdominal pain COMPARISON: CT abdomen pelvis 10/15/2022 TECHNIQUE: Multidetector volumetric imaging was performed from the superior aspect of the liver through the pubic symphysis. Sagittal and coronal reformatted images were obtained on the technologist's workstation. This CT examination was performed using dose optimization techniques as appropriate, variously including the following: *Automated exposure control *Adjustment of mA and/or kV according to patient size (this includes techniques or standardized protocols for targeted exams where dose is matched to indication/reason for exam; i.e. extremities or head) *Use of iterative reconstruction technique DLP: 539 mGy-cm FINDINGS: LUNG BASES: Basilar atelectasis improved when compared to prior. No infiltrates, effusions or lung masses. LIVER, GALLBLADDER, AND BILIARY TREE: The liver is normal in size, shape, and attenuation. No focal hepatic lesion or biliary ductal dilatation is present. The gallbladder is unremarkable with no evidence of radiopaque gallstones, gallbladder wall thickening, or obvious pericholecystic inflammatory changes. PANCREAS: Unremarkable. SPLEEN: Unremarkable. ADRENAL GLANDS: Unremarkable. KIDNEYS AND URETERS: The kidneys are normal in size, shape, and attenuation. No hydronephrosis, hydroureter, or calculi seen. Previously seen marked nonspecific bilateral perinephric stranding has improved significantly. BLADDER: Bladder is unremarkable. GASTROINTESTINAL TRACT: The stomach is markedly distended with fluid. A small hiatal hernia is present. The small and large bowel are unremarkable. The appendix is not seen but there is no evidence of appendicitis evidence of appendicitis. ABDOMINAL WALL: No significant hernia is appreciated. LYMPH NODES: Shotty retroperitoneal lymph nodes are present, unchanged from prior, without gross retroperitoneal lymphadenopathy. VASCULAR: Unremarkable. PELVIC VISCERA: Calcification is again noted in the tunica albuginea. The prostate is minimally enlarged . Seminal vesicles appear normal. OSSEOUS STRUCTURES: Unremarkable. CT/CT abdomen pelvis wo IV con IMPRESSION: 1. A cause for the patient's abdominal pain has not been found. 2. The stomach is markedly distended with fluid. 3. Previously seen nonspecific bilateral perinephric stranding has improved significantly. 4. Other incidental findings as described above. Fleischner guidelines were followed. Discharge Plan Discharge Clinical Impression: Abdominal pain, chronic, generalized Patient Disposition: Home, Self-Care Instructions: Chronic Abdominal Pain (ED) Additional Instructions: Drink plenty of fluids Stop smoking marijuana Take blood pressure medicine daily on time Follow with sprinkler tender Continue medications as prescribed by your sprinkler tender Prescriptions: No Action atorvastatin 80 mg tablet 80 mg PO DAILY Qty: 30 6RF ezetimibe [Zetia] 10 mg tablet 10 mg PO DAILY 90 Days Qty: 90 1RF (DME) Omnipod 5 G6 Intro Kit (Gen 5) Cartridge See Rx Instructions .Route Qty: 1 4RF Rx Instructions: As directed (DME) Omnipod 5 G6 Intro Kit (Gen 5) Cartridge See Rx Instructions .Route Qty: 1 4RF Rx Instructions: As directed insulin aspart U-100 100 unit/mL solution See Rx Instructions subcut TID Qty: 20 5RF Rx Instructions: inject via insulin pump subcutaneously 3 times a day; do NOT exceed 70 units daily metoprolol succinate 50 mg tablet extended release 24 hr 1.5 tab PO DAILY insulin glargine [Lantus Solostar U-100 Insulin] 100 unit/mL (3 mL) insulin pen 22 unit subcut BEDTIME PRN (Reason: pump malfunction) nifedipine 60 mg Tablet Extended Release 24hr 60 mg PO DAILY Qty: 30 0RF Protocol: Hold for SBP< HOLD for SBP < : 90 furosemide 20 mg tablet 20 mg PO DAILY cholecalciferol (vitamin D3) [Vitamin D3] 50 mcg (2,000 unit) capsule 50 mcg PO DAILY metoclopramide HCl 5 mg Tablet 5 mg PO TIDAC PRN (Reason: Nausea and indigestion) Qty: 30 0RF tamsulosin 0.4 mg Capsule 0.4 mg PO DAILY Qty: 30 0RF omeprazole 40 mg capsule,delayed release(DR/EC) 40 mg PO DAILY@0630 nortriptyline 50 mg capsule 50 mg PO BEDTIME (DME) pen needle, diabetic [BD Ultra-Fine Shannan Pen Needle] 32 gauge x 5/32 needle See Rx Instructions .ROUTE QID Qty: 50 Rx Instructions: As directed gabapentin 300 mg capsule 300 mg PO BEDTIME hydralazine 100 mg tablet 100 mg PO TID Interventions: ED Discharge Assessment Last Done: 02/03/23 05:12 Discharge Date/Time: 02/03/23 05:13 Print Language: Slovenian
[2023-02-02 21:11] LABS: MANUAL DIFF FLAG NO
[2023-02-02 21:12] LABS: Basophils Percent Auto 0.2 % (0-2); Eosinophils Percent Auto 0.1 % (0-4); Hematocrit 43.1 % (42.0-52.0); Hemoglobin 14.7 g/dl (14.0-18.0); Imm Gran Abs Auto 0.06 X10*3/uL (0.00-0.03); Imm Gran Pct Auto 0.3 % (0.0-0.4); Lymphocytes Absolute Auto 1.4 X10*3/uL (1.2-4.9); Lymphocytes Percent Auto 7.5 % (20-40); Mean Corpuscular HGB Conc 34.1 g/dl (31.0-36.0); Mean Corpuscular Hemoglobin 29.3 pg (27.0-33.0); Mean Platelet Volume 9.8 fL (9.4-12.4); Monocytes Absolute Auto 0.5 X10*3/uL (0.1-1.2); Monocytes Percent Auto 2.8 % (2-11); Neutrophils Absolute Auto 16.1 x10*3/uL (2.0-8.3); Neutrophils Percent Auto 89.1 % (45-73); Platelet Count 279 X10*3/uL (160-400); Red Blood Count 5.01 X10*6/uL (4.60-5.80); Red Cell Distribution Width 11.9 % (11.0-16.0)
[2023-02-02 21:13] LABS: Appearance Urine Clear; Color Urine Yellow; Glucose Urine UA 500 mg/dL (Negative); Leukocyte Esterase Urine Negative (Negative); Nitrite Urine Negative (Negative); UMIC TRIGGER UACC YES; Urine Blood Trace (Negative); Urine Ketones Trace mg/dL (Negative); Urine Protein >=1000 (4+) mg/dL (Neg-Trace)
--- NOTE | 2023-02-02 21:14 | MHC.EDTECH ---
EKG taken per order,Labs and Urine were obtained and sent to lab. Patient brought back to waiting area.
[2023-02-02 21:18] LABS: Bacteria Urine None Seen (None Seen); Hyaline Casts Urine 0-2 /LPF (0-2); RBC Urine 0-2 /HPF (0-2); Squamous Epithelial Cell Urine 0-2 /HPF (0-2); WBC Urine 0-5 /HPF (0-5)
[2023-02-02 21:31] LABS: Alanine Aminotransferase 23 U/L (0-40); Albumin Level 4.4 g/dL (3.5-5.0); Alkaline Phosphatase 94 U/L (39-117); Anion Gap 17 (12-20); Aspartate Amino Transferase 18 U/L (5-37); Bilirubin Direct 0.2 mg/dL (0.0-0.5); Bilirubin Total 0.5 mg/dL (0.0-1.0); Blood Urea Nitrogen 44 mg/dL (9-16); Calcium 9.6 mg/dL (8.4-10.2); Carbon Dioxide 21 mmol/L (22-29); Chloride 106 mmol/L (96-108); Estimated Glomerular Filt Rate 15; Glucose Random 209 mg/dL (60-115); Lipase 13 U/L (8-78); Potassium 4.4 mmol/L (3.3-5.1); Sodium 140 mmol/L (135-145); Total Protein 8.2 g/dL (6.5-8.0)
[2023-02-02 21:41] LABS: Troponin-I High Sensitivity < 2.7 ng/L (<3.5-35.0)
[2023-02-02 22:03] LABS: Glucose, Whole Blood 177 mg/dL (60-115)
[2023-02-02 22:47] VITALS: BP 196/122; PULSE 99; RESP 15; TEMP 36.6; O2SAT 97
[2023-02-02] MEDS: Morphine Sulfate 4 MG/ML CARTRIDGE IVPUSH (23:27)
[2023-02-02] MEDS: hydrALAZINE HCl 20 MG/ML VIAL 10 MG IVPUSH (23:30)
[2023-02-02] MEDS: Prochlorperazine Edisylate 10 MG/2 ML VIAL IVPUSH (23:30)
--- NOTE | 2023-02-02 23:36 | PC.NURSE ---
pt restless on the stretcher in pain. MD at bedside. BP high. pt medicated per MAR for nausea, pain, and BP. pt in CT now
[2023-02-02 23:58] VITALS: BP 190/112
--- NOTE | 2023-02-03 00:07 | PC.NURSE ---
pt now resting comfortably with eyes closed, breathing even and unlabored. BP 187/112
[2023-02-03 00:43] VITALS: BP 175/122
[2023-02-03 00:45] VITALS: BP 191/109; PULSE 101; RESP 18; O2SAT 96
[2023-02-03] MEDS: Labetalol HCL 100 MG/20 ML VIAL 20 MG IVPUSH (00:56)
--- NOTE | 2023-02-03 00:59 | PC.NURSE ---
BP remains high. aware. pt medicated per MAR
== END 2023-02-03 05:13 | disposition home or self-care (01) ==
PROVIDERS: Physician Assistant Medical; Emergency Provider Internal Medicine; PCP Internal Medicine Geriatric Medicine
DX: G89.29 Other chronic pain (principal); R10.84 Generalized abdominal pain; E10.22 Type 1 diabetes mellitus with diabetic chronic kidney disease; I12.9 Hypertensive chronic kidney disease with stage 1 through stage 4 chronic kidney disease, or unspecified chronic kidney disease; N18.4 Chronic kidney disease, stage 4 (severe); E78.5 Hyperlipidemia, unspecified; F12.90 Cannabis use, unspecified, uncomplicated; Z87.891 Personal history of nicotine dependence; Z79.4 Long term (current) use of insulin; Z79.02 Long term (current) use of antithrombotics/antiplatelets; Z79.899 Other long term (current) drug therapy
CPT/HCPCS: 36415; 71046; 74176; 80048; 80076; 81001; 82947; 83690; 84484; 85025; 93005; 96374; 96375; 99284; 99285; J0360; J0737; J1920; J2270

== ENCOUNTER → 2023-02-02 20:44 | Outpatient (BNV) | payer MEDICAID, SELFPAY | PROVIDERS: Emergency Provider Internal Medicine; PCP Internal Medicine Geriatric Medicine; Visit Provider Internal Medicine Cardiovascular Disease | DX: R10.9 Unspecified abdominal pain (principal) | CPT/HCPCS: 93010 ==

== ENCOUNTER 2023-02-06 19:21 | Emergency (ER) | payer MEDICAID, SELFPAY ==
[2023-02-06 19:26] VITALS: BP 178/122; PULSE 92; O2SAT 97
[2023-02-06 19:27] VITALS: BMI 26.6
--- NOTE | 2023-02-06 19:31 | ED.ABDPAIN ---
HPI - Abdominal Pain General Chief Complaint: Abdominal Pain Stated Complaint: abd pain Time Seen by Provider: 02/06/23 19:26 Source: patient Mode of arrival: EMS Limitations: no limitations History of Present Illness HPI narrative: Patient diabetic with gastroparesis and frequent abdominal pain been here multiple times for same was seen here on 02/[address] scan was negative for acute no fever no chills no diarrhea after several times prior to arrival blood sugar was less than 200 Related Data Home Medications Medication Instructions Recorded Confirmed nortriptyline 50 mg capsule 50 mg PO BEDTIME 01/04/20 10/16/22 omeprazole 40 mg capsule,delayed 40 mg PO DAILY@0630 01/04/20 10/16/22 release pen needle, diabetic 32 gauge x #50 ea 07/12/21 07/12/21 (BD Ultra-Fine Shannan Pen Needle) metoprolol succinate 50 mg 1.5 tab PO DAILY 07/29/21 10/16/22 tablet,extended release 24 hr insulin glargine 100 unit/mL (3 22 unit subcut BEDTIME PRN pump 03/08/22 10/16/22 mL) subcutaneous pen (Lantus malfunction Solostar U-100 Insulin) gabapentin 300 mg capsule 300 mg PO BEDTIME 05/13/22 10/16/22 hydralazine 100 mg tablet 100 mg PO TID 05/13/22 10/16/22 cholecalciferol (vitamin D3) 50 50 mcg PO DAILY 10/16/22 10/16/22 mcg (2,000 unit) capsule (Vitamin D3) furosemide 20 mg tablet 20 mg PO DAILY 10/16/22 10/16/22 Previous Rx's Medication Instructions Recorded atorvastatin 80 mg tablet 80 mg PO DAILY #30 tabs 12/12/20 ezetimibe 10 mg tablet (Zetia) 10 mg PO DAILY 90 days #90 tabs 07/05/21 insulin pump cartridge,automated #1 ea 02/19/22 dose,BT with controller subcutaneous (Omnipod 5 G6 Intro Kit (Gen 5) subcutaneous cartridge with controller) insulin pump cartridge,automated #1 ea 02/19/22 dose,BT with controller subcutaneous (Omnipod 5 G6 Intro Kit (Gen 5) subcutaneous cartridge with controller) nifedipine 60 mg tablet,extended 60 mg PO DAILY #30 tabs 03/11/22 release 24 hr metoclopramide HCl 5 mg tablet 5 mg PO TIDAC PRN Nausea and 10/18/22 indigestion #30 tabs tamsulosin 0.4 mg capsule 0.4 mg PO DAILY #30 caps 10/18/22 insulin aspart U-100 100 unit/mL See Rx Instructions subcut TID #20 01/19/23 subcutaneous solution mL morphine 15 mg immediate release 15 mg PO Q8H PRN pain #15 tabs 02/06/23 tablet ondansetron 4 mg disintegrating 4 mg PO Q6-8H PRN nausea and 02/06/23 tablet vomiting #20 tabs Allergies Allergy/AdvReac Type Severity Reaction Status Date / Time gluten Allergy Gastrointestinal Verified 02/06/23 20:20 Upset losartan Allergy Gastrointestinal Verified 02/06/23 20:20 Upset valsartan AdvReac Unknown GI problems Verified 02/06/23 20:20 Review of Systems Review of Systems Yes all other systems are reviewed and are negative PMFSH Past Medical History Medical History Diabetic gastroparesis CKD (chronic kidney disease) stage 4, GFR 15-29 ml/min Opioid overdose Type 1 diabetes Toxic encephalopathy Withdrawal from recreational drug Acute hyperkalemia Pulmonary edema Respiratory failure Hyponatremia Hyperkalemia Lactic acidosis due to diabetes mellitus Diabetic ketoacidosis Hypertensive urgency Hypertension associated with diabetes Hyperglycemia due to type 1 diabetes mellitus Pancreatitis Vitamin D deficiency Hypocalcemia Background diabetic retinopathy associated with type 2 diabetes mellitus 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 Diabetes type 1, uncontrolled Acute on chronic kidney failure Hemangioma of liver Legally blind Acid reflux Sciatica Gastritis Polyneuropathy Diabetic visual loss, with retinopathy, associated with type 1 diabetes mellitus Diabetic polyneuropathy associated with type 1 diabetes mellitus Essential hypertension Hyperlipidemia LDL goal <70 Surgical History Hx of endoscopy Hx of circumcision Hx of appendectomy Hx of eye surgery Family History Family History Father Diabetes mellitus Mother Diabetes mellitus Maternal Grandfather Diabetes mellitus Maternal Grandmother Diabetes mellitus Social History Social History Household Members: Spouse Household Members Other:: and girlfriend Housing: Apartment Do you presently have visiting nurse or other home services: No Alcohol intake: never Comment: refusing fall risk interventions. Patient Tobacco Use Status: Former Tobacco user Second Hand Smoke Exposure: No Substance Use Type: Marijuana Advance Directives: Yes Advance Directives on File: Yes Advance Directives Date on File: 04/13/20 service: No Current occupational status: disabled Physical Exam ED Vital Signs: Vital Signs - 24 hr 02/06/23 19:32 02/06/23 22:57 02/06/23 23:24 Temperature 98.1 F 98.7 F Pulse Rate 89 96 94 Respiratory Rate 20 16 16 Blood Pressure 156/108 H 167/109 H 143/93 H Pulse Oximetry 97 98 Oxygen Delivery Method Room Air Room Air BMI result Body Mass Index 26.6 Appearance: Alert. Oriented X3. No acute distress. Eyes: Legally blind ENT: Pharynx normal. Oral Mucosa moist Neck: Normal inspection. Neck supple. CVS: Normal heart rate and rhythm. Pulses normal. Respiratory: No respiratory distress. Equal air entry bilateral, no wheezing/rales/rhonchi Abdomen: Soft , upper abdominal tenderness Bowel sounds are present, no mass palpable, no CVA tenderness Skin: Skin warm and dry. Normal skin color. Normal skin turgor. Extremities: No lower extremity edema. No calf tenderness Neuro: Oriented X 3. No motor deficit. No sensory deficit.No cerebellar signs , cranial nerves II-XII intact Medical Decision Making Medical Decision Making [facility] [place] Narrative: Patient diabetic gastroparesis with multiple ED with recent CT scan negative for acute patient felt better after pain medication and nausea medication taking p.o. fluids will discharge patient home Differential Diagnosis Differential Diagnoses: The differential diagnosis associated with the presentation includes Small-bowel obstruction/gastroparesis Lab Data [facility] [place] Lab Attestation statement: I reviewed the patient's lab results. 02/06/23 19:47 02/06/23 19:47 Labs: Lab Results 02/06/23 Range/Units 19:47 WBC 10.5 (4.8-10.8) X10*3/uL RBC 4.75 (4.60-5.80) X10*6/uL Hgb 14.6 (14.0-18.0) g/dl Hct 40.5 L (42.0-52.0) % MCV 85.3 (80.0-98.0) fL MCH 30.7 (27.0-33.0) pg MCHC 36.0 (31.0-36.0) g/dl RDW 11.8 (11.0-16.0) % Plt Count 248 (160-400) X10*3/uL MPV 9.8 (9.4-12.4) fL Immature Gran % (Auto) 0.3 (0.0-0.4) % Neut % (Auto) 80.4 H (45-73) % Lymph % (Auto) 12.8 L (20-40) % [place] % (Auto) 5.3 (2-11) % Eos % (Auto) 0.9 (0-4) % Baso % (Auto) 0.3 (0-2) % Lymph # (Auto) 1.3 (1.2-4.9) X10*3/uL [place] # (Auto) 0.6 (0.1-1.2) X10*3/uL Eos # (Auto) 0.1 (0.0-0.4) X10*3/uL Baso # (Auto) 0.0 (0.0-0.2) X10*3/uL Abs Immat Gran (auto) 0.03 (0.00-0.03) X10*3/uL Absolute Neuts (auto) 8.4 H (2.0-8.3) x10*3/uL Absolute Nucleated RBC 0.000 (0.0-0.012) X10*3/uL Nucleated RBC % (auto) 0.0 (0.0-0.2) /100WBC Sodium 142 (135-145) mmol/L Potassium 4.2 (3.3-5.1) mmol/L Chloride 100 (96-108) mmol/L Carbon Dioxide 25 (22-29) mmol/L Anion Gap 21 H (12-20) BUN 43 H (9-16) mg/dL Creatinine 4.89 H* (0.5-1.4) mg/dL Estim Creat Clear Calc 19.8 Estimated GFR 13 POC Glucose 187 H (60-115) mg/dL Random Glucose 180 H (60-115) mg/dL Calcium 9.5 (8.4-10.2) mg/dL Total Bilirubin 0.5 (0.0-1.0) mg/dL AST 26 (5-37) U/L ALT 22 (0-40) U/L Alkaline Phosphatase 92 (39-117) U/L Total Protein 8.0 (6.5-8.0) g/dL Albumin 4.0 (3.5-5.0) g/dL Lipase 17 (8-78) U/L Medications Administered Discontinued Medications Generic Name Dose Route Start Last Admin Trade Name Freq PRN Reason Stop Dose Admin Hydralazine HCl 20 mg 02/06/23 23:02 02/06/23 23:06 Hydralazine Hcl 20 Mg/Ml Vial IVPUSH 02/06/23 23:03 20 mg ONCE ONE Administration Protocol Hydromorphone HCl 1 mg 02/06/23 22:44 02/06/23 22:55 Hydromorphone Hcl 1 Mg/Ml Syringe IVPUSH 02/06/23 22:45 1 mg ONCE ONE Administration Protocol Sodium Chloride 1,000 mls @ 999 mls/hr 02/06/23 19:44 02/06/23 20:52 Ns IV 02/06/23 20:44 Infused .Q1H1M ONE Infusion Metoclopramide HCl 10 mg 02/06/23 22:45 02/06/23 22:55 Metoclopramide Hcl 10 Mg/2 Ml Vial IVPUSH 02/06/23 22:46 10 mg ONCE ONE Administration Morphine Sulfate 4 mg 02/06/23 19:44 02/06/23 19:51 Morphine Sulfate 4 Mg/Ml Cartridge IVPUSH 02/06/23 19:45 4 mg ONCE ONE Administration Protocol Ondansetron HCl 4 mg 02/06/23 19:44 02/06/23 19:51 Ondansetron Hcl 4 Mg/2 Ml Vial IVPUSH 02/06/23 19:45 4 mg ONCE ONE Administration Discharge Plan Discharge Clinical Impression: Abdominal pain, chronic, generalized, Diabetic gastroparesis Patient Disposition: Home, Self-Care Instructions: Diabetic Gastroparesis (DC), Chronic Abdominal Pain (ED) Additional Instructions: Drink plenty of fluids Take medication as prescribed for pain and nausea Follow-up with PCP Prescriptions: New morphine 15 mg tablet 15 mg PO Q8H PRN (Reason: pain) Qty: 15 0RF Rx Instructions: Partial Fill upon patient request. ondansetron 4 mg tablet,disintegrating 4 mg PO Q6-8H PRN (Reason: nausea and vomiting) Qty: 20 0RF No Action atorvastatin 80 mg tablet 80 mg PO DAILY Qty: 30 6RF ezetimibe [Zetia] 10 mg tablet 10 mg PO DAILY 90 Days Qty: 90 1RF (DME) Omnipod 5 G6 Intro Kit (Gen 5) Cartridge See Rx Instructions .Route Qty: 1 4RF Rx Instructions: As directed (DME) Omnipod 5 G6 Intro Kit (Gen 5) Cartridge See Rx Instructions .Route Qty: 1 4RF Rx Instructions: As directed insulin aspart U-100 100 unit/mL solution See Rx Instructions subcut TID Qty: 20 5RF Rx Instructions: inject via insulin pump subcutaneously 3 times a day; do NOT exceed 70 units daily metoprolol succinate 50 mg tablet extended release 24 hr 1.5 tab PO DAILY insulin glargine [Lantus Solostar U-100 Insulin] 100 unit/mL (3 mL) insulin pen 22 unit subcut BEDTIME PRN (Reason: pump malfunction) nifedipine 60 mg Tablet Extended Release 24hr 60 mg PO DAILY Qty: 30 0RF Protocol: Hold for SBP< HOLD for SBP < : 90 furosemide 20 mg tablet 20 mg PO DAILY cholecalciferol (vitamin D3) [Vitamin D3] 50 mcg (2,000 unit) capsule 50 mcg PO DAILY metoclopramide HCl 5 mg Tablet 5 mg PO TIDAC PRN (Reason: Nausea and indigestion) Qty: 30 0RF tamsulosin 0.4 mg Capsule 0.4 mg PO DAILY Qty: 30 0RF omeprazole 40 mg capsule,delayed release(DR/EC) 40 mg PO DAILY@0630 nortriptyline 50 mg capsule 50 mg PO BEDTIME (DME) pen needle, diabetic [BD Ultra-Fine Shannan Pen Needle] 32 gauge x 5/32 needle See Rx Instructions .ROUTE QID Qty: 50 Rx Instructions: As directed gabapentin 300 mg capsule 300 mg PO BEDTIME hydralazine 100 mg tablet 100 mg PO TID Interventions: ED Discharge Assessment Last Done: 02/06/23 23:59 Discharge Date/Time: 02/07/23 00:00
[2023-02-06 19:32] VITALS: BP 156/108; PULSE 89; RESP 20; TEMP 36.7; O2SAT 97
[2023-02-06 19:51] LABS: Glucose, Whole Blood 187 mg/dL (60-115)
[2023-02-06] MEDS: ondansetron HCL 4 MG/2 ML VIAL IVPUSH (19:51)
[2023-02-06] MEDS: 0.9 % Sodium Chloride 1,000 ML 999 ML IV (19:51)
[2023-02-06] MEDS: Morphine Sulfate 4 MG/ML CARTRIDGE IVPUSH (19:51)
[2023-02-06 20:04] LABS: MANUAL DIFF FLAG NO
[2023-02-06 20:05] LABS: Basophils Percent Auto 0.3 % (0-2); Eosinophils Absolute Auto 0.1 X10*3/uL (0.0-0.4); Eosinophils Percent Auto 0.9 % (0-4); Hematocrit 40.5 % (42.0-52.0); Hemoglobin 14.6 g/dl (14.0-18.0); Imm Gran Abs Auto 0.03 X10*3/uL (0.00-0.03); Imm Gran Pct Auto 0.3 % (0.0-0.4); Lymphocytes Absolute Auto 1.3 X10*3/uL (1.2-4.9); Lymphocytes Percent Auto 12.8 % (20-40); Mean Corpuscular Hemoglobin 30.7 pg (27.0-33.0); Mean Corpuscular Volume 85.3 fL (80.0-98.0); Mean Platelet Volume 9.8 fL (9.4-12.4); Monocytes Absolute Auto 0.6 X10*3/uL (0.1-1.2); Monocytes Percent Auto 5.3 % (2-11); Neutrophils Absolute Auto 8.4 x10*3/uL (2.0-8.3); Neutrophils Percent Auto 80.4 % (45-73); Platelet Count 248 X10*3/uL (160-400); Red Blood Count 4.75 X10*6/uL (4.60-5.80); Red Cell Distribution Width 11.8 % (11.0-16.0); White Blood Count 10.5 X10*3/uL (4.8-10.8)
[2023-02-06 20:27] LABS: Alanine Aminotransferase 22 U/L (0-40); Alkaline Phosphatase 92 U/L (39-117); Anion Gap 21 (12-20); Aspartate Amino Transferase 26 U/L (5-37); Bilirubin Total 0.5 mg/dL (0.0-1.0); Blood Urea Nitrogen 43 mg/dL (9-16); Calcium 9.5 mg/dL (8.4-10.2); Carbon Dioxide 25 mmol/L (22-29); Chloride 100 mmol/L (96-108); Creatinine Clr Calc Pharmacy 19.8; Estimated Glomerular Filt Rate 13; Glucose Random 180 mg/dL (60-115); Lipase 17 U/L (8-78); Potassium 4.2 mmol/L (3.3-5.1); Sodium 142 mmol/L (135-145)
[2023-02-06] MEDS: Metoclopramide HCl 10 MG/2 ML VIAL IVPUSH (22:55)
[2023-02-06] MEDS: HYDROmorphone HCl 1 MG/ML SYRINGE IVPUSH (22:55)
[2023-02-06 22:57] VITALS: BP 167/109; PULSE 96; RESP 16; TEMP 37.1; O2SAT 98
[2023-02-06] MEDS: hydrALAZINE HCl 20 MG/ML VIAL IVPUSH (23:06)
[2023-02-06 23:24] VITALS: BP 143/93; PULSE 94; RESP 16
== END 2023-02-07 | disposition home or self-care (01) ==
PROVIDERS: Emergency Provider Internal Medicine
DX: E10.43 Type 1 diabetes mellitus with diabetic autonomic (poly)neuropathy (principal); K31.84 Gastroparesis; R10.9 Unspecified abdominal pain; R11.2 Nausea with vomiting, unspecified; Z79.4 Long term (current) use of insulin; Z79.899 Other long term (current) drug therapy
CPT/HCPCS: 36415; 80053; 82947; 83690; 85025; 96361; 96374; 96375; 99284; J0360; J1170; J2270; J2405; J2765

== ENCOUNTER 2023-02-10 07:01 | Observation (INO) | payer MEDICAID, SELFPAY ==
[2023-02-10] VITALS (9 sets, daily range): BP systolic 150–219; BP diastolic 95–130; PULSE 86–110; RESP 16–20; TEMP 36.5–37.2; O2SAT 96–99; BMI 25.8
--- NOTE | ~2023-02-10 | CT_ITS ---
EXAMINATION: CT ABDOMEN AND PELVIS WITHOUT CONTRAST CLINICAL INFORMATION: Left lower quadrant pain. COMPARISON: 02/02/2023. TECHNIQUE: Multidetector volumetric imaging was performed from the superior aspect of the liver through the pubic symphysis. Sagittal and coronal reformatted images were obtained on the technologist's workstation. This CT examination was performed using dose optimization techniques as appropriate, variously including the following: *Automated exposure control *Adjustment of mA and/or kV according to patient size (this includes techniques or standardized protocols for targeted exams where dose is matched to indication/reason for exam; i.e. extremities or head) *Use of iterative reconstruction technique DLP: 485 mGy-cm FINDINGS: LUNG BASES: The visualized lung bases are unremarkable. LIVER, GALLBLADDER, AND BILIARY TREE: The liver is normal in size, shape, and attenuation. No focal hepatic lesion or biliary ductal dilatation is present. The gallbladder is unremarkable with no evidence of radiopaque gallstones, gallbladder wall thickening, or obvious pericholecystic inflammatory changes. PANCREAS: Unremarkable. SPLEEN: Unremarkable. ADRENAL GLANDS: Unremarkable. KIDNEYS AND URETERS: The kidneys are normal in size, shape, and attenuation. No hydronephrosis, hydroureter, or calculi seen. No perinephric stranding. BLADDER: Unremarkable. GASTROINTESTINAL TRACT: There is mild gaseous distention of the stomach. There is mild thickening of the distal descending colon. The appendix is not seen as a separate structure. ABDOMINAL WALL: No significant hernia is appreciated. LYMPH NODES: Multiple nonspecific retroperitoneal lymph nodes are again seen. VASCULAR: Unremarkable. PELVIC VISCERA: Unremarkable. OSSEOUS STRUCTURES: Unremarkable. CT/CT abdomen pelvis wo IV con IMPRESSION: Mild thickening of the distal descending colon possibly a mild colitis. Mild gaseous distention of the stomach. No other significant abnormality seen. Fleischner guidelines were followed.
[2023-02-10] MEDS: Morphine Sulfate 4 MG/ML CARTRIDGE IVPUSH (07:50)
--- NOTE | 2023-02-10 07:50 | ED_ITS ---
HPI - General Adult General Chief complaint: Abdominal Pain Stated complaint: abd pain Time Seen by Provider: 02/10/23 10:07 Source: patient and EMS Mode of arrival: EMS Limitations: no limitations History of Present Illness HPI narrative: This is a 37-year-old male history of diabetes, hypertension, legal blindness, nephrosclerosis presenting to the emergency department complaints of nausea, vomiting, diffuse abdominal pain ongoing since last night. Patient reports severe abdominal pain 12/02, he reports that he smokes marijuana however no drugs. Does not drink alcohol. Patient denies headache, vision changes, dizziness, weakness, hematemesis, chest pain, shortness of breath, changes in urination Related Data Home Medications Medication Instructions Recorded Confirmed nortriptyline 50 mg capsule 50 mg PO BEDTIME 01/04/20 10/16/22 omeprazole 40 mg capsule,delayed 40 mg PO DAILY@0630 01/04/20 10/16/22 release pen needle, diabetic 32 gauge x #50 ea 07/12/21 07/12/21 (BD Ultra-Fine Shannan Pen Needle) metoprolol succinate 50 mg 1.5 tab PO DAILY 07/29/21 10/16/22 tablet,extended release 24 hr insulin glargine 100 unit/mL (3 22 unit subcut BEDTIME PRN pump 03/08/22 10/16/22 mL) subcutaneous pen (Lantus malfunction Solostar U-100 Insulin) gabapentin 300 mg capsule 300 mg PO BEDTIME 05/13/22 10/16/22 hydralazine 100 mg tablet 100 mg PO TID 05/13/22 10/16/22 cholecalciferol (vitamin D3) 50 50 mcg PO DAILY 10/16/22 10/16/22 mcg (2,000 unit) capsule (Vitamin D3) furosemide 20 mg tablet 20 mg PO DAILY 10/16/22 10/16/22 Previous Rx's Medication Instructions Recorded atorvastatin 80 mg tablet 80 mg PO DAILY #30 tabs 12/12/20 ezetimibe 10 mg tablet (Zetia) 10 mg PO DAILY 90 days #90 tabs 07/05/21 insulin pump cartridge,automated #1 ea 02/19/22 dose,BT with controller subcutaneous (Omnipod 5 G6 Intro Kit (Gen 5) subcutaneous cartridge with controller) insulin pump cartridge,automated #1 ea 02/19/22 dose,BT with controller subcutaneous (Omnipod 5 G6 Intro Kit (Gen 5) subcutaneous cartridge with controller) nifedipine 60 mg tablet,extended 60 mg PO DAILY #30 tabs 03/11/22 release 24 hr metoclopramide HCl 5 mg tablet 5 mg PO TIDAC PRN Nausea and 10/18/22 indigestion #30 tabs tamsulosin 0.4 mg capsule 0.4 mg PO DAILY #30 caps 10/18/22 insulin aspart U-100 100 unit/mL See Rx Instructions subcut TID #20 01/19/23 subcutaneous solution mL morphine 15 mg immediate release 15 mg PO Q8H PRN pain #15 tabs 02/06/23 tablet ondansetron 4 mg disintegrating 4 mg PO Q6-8H PRN nausea and 02/06/23 tablet vomiting #20 tabs Allergies Allergy/AdvReac Type Severity Reaction Status Date / Time gluten Allergy Gastrointestinal Verified 02/06/23 20:20 Upset losartan Allergy Gastrointestinal Verified 02/06/23 20:20 Upset valsartan AdvReac Unknown GI problems Verified 02/06/23 20:20 Review of Systems 2 Review of Systems: Constitutional : No Weight loss, No Fever, No Chills, No Fatigue, No Malaise ENT/Mouth : No sore throat, No Rhinorrhea Eyes: No Eye Pain, No Swelling, No Redness Cardiovascular : No Chest Pain, No SOB, No Dyspnea on Exertion, No Orthopnea, No Edema, No Palpitations Respiratory : No Cough, No Sputum, No Wheezing Gastrointestinal : + Nausea, + Vomiting, No Diarrhea, No Constipation, + abdominal Pain, No Hematochezia, No Melena Genitourinary : No Dysuria, No Urinary Frequency, No Hematuria, Musculoskeletal : No joint pain, No Myalgias, No Joint Swelling Skin : No Skin Lesions, No rash Neuro : No Weakness, No Numbness, No Dizziness, No Headache Psych : No Anxiety/Panic, No Depression All other systems reviewed and are negative Yes all other systems are reviewed and are negative [facility] Past Medical History Attestation statement: The following information was validated with the patient. Source: old records reviewed and nursing notes reviewed Medical History Diabetic gastroparesis CKD (chronic kidney disease) stage 4, GFR 15-29 ml/min Opioid overdose Type 1 diabetes Toxic encephalopathy Withdrawal from recreational drug Acute hyperkalemia Pulmonary edema Respiratory failure Hyponatremia Hyperkalemia Lactic acidosis due to diabetes mellitus Diabetic ketoacidosis Hypertensive urgency Hypertension associated with diabetes Hyperglycemia due to type 1 diabetes mellitus Pancreatitis Vitamin D deficiency Hypocalcemia Background diabetic retinopathy associated with type 2 diabetes mellitus 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 Diabetes type 1, uncontrolled Acute on chronic kidney failure Hemangioma of liver Legally blind Acid reflux Sciatica Gastritis Polyneuropathy Diabetic visual loss, with retinopathy, associated with type 1 diabetes mellitus Diabetic polyneuropathy associated with type 1 diabetes mellitus Essential hypertension Hyperlipidemia LDL goal <70 Surgical History Hx of endoscopy Hx of circumcision Hx of appendectomy Hx of eye surgery Family History Family History Father Diabetes mellitus Mother Diabetes mellitus Maternal Grandfather Diabetes mellitus Maternal Grandmother Diabetes mellitus Social History Social History Household Members: Spouse Household Members Other:: and girlfriend Housing: Apartment Do you presently have visiting nurse or other home services: No Alcohol intake: never Comment: refusing fall risk interventions. Patient Tobacco Use Status: Former Tobacco user Smoked in Last 30 Days: No Second Hand Smoke Exposure: No Use of substances other than those prescribed or required for medical reasons: No Substance Use Type: Marijuana Advance Directives: Yes Advance Directives on File: Yes Advance Directives Date on File: 04/13/20 service: No Current occupational status: disabled Physical Exam ED Vital Signs: Vital Signs - 24 hr 02/10/23 07:18 02/10/23 07:21 02/10/23 09:47 Temperature 98.9 F 98.9 F 97.7 F Pulse Rate 95 96 86 Respiratory Rate 20 16 16 Blood Pressure 153/103 H 154/96 H 189/114 H Pulse Oximetry 97 99 97 Oxygen Delivery Method Room Air Room Air Room Air 02/10/23 09:52 02/10/23 11:28 02/10/23 12:36 Temperature Pulse Rate 93 Respiratory Rate Blood Pressure 200/115 H 191/110 H 219/130 H Pulse Oximetry 97 Oxygen Delivery Method Room Air Room Air 02/10/23 14:52 Temperature Pulse Rate 93 Respiratory Rate 16 Blood Pressure 183/103 H Pulse Oximetry 96 Oxygen Delivery Method Room Air BMI result Body Mass Index 25.8 vss Appearance: Alert.? Oriented X3.? No acute distress.? Head: Normocephalic, atraumatic, no step-offs or deformities Eyes: Pupils equal, round and reactive to light.? ENT: Pharynx normal.? Neck: Normal inspection.? Neck supple.? CVS: Normal heart rate and rhythm.? Pulses normal.? Respiratory: No respiratory distress.? Breath sounds normal.? Abdomen: Soft and diffusely tender normal BS .? Skin: Skin warm and dry.? Normal skin color.? Normal skin turgor.? Extremities: No lower extremity edema.? No calf ttp. 5/5 strength to bilateral upper and lower extremities Neuro: Oriented X 3.? No motor deficit.? No sensory deficit. CN 2-12 intact Course Reevaluation(s) Reevaluation #1: Patient's CBC with slight leukocytosis 12.4 no left shift I suspect this is reactive secondary to nausea and vomiting. Patient's chemistry showing elevated BUN and creatinine chronically, this is likely secondary to diabetes and hypertensive nephrosclerosis as stated in previous notes by Nephrology. This is not an acute finding. Random glucose slightly elevated 132, beta hydroxybutyrate 1.24 elevated however I do not suspect DKA as patient does not have an anion gap and is not acidotic. This could be cyclic vomiting as patient does report he tried to stop smoking marijuana and has continued as sometimes it does cause him these adverse effects. Patient is not a dialysis patient. His blood pressure has been elevated during his visit, will give p.o. home meds and if this does not respond will proceed to giving IV blood pressure agents Time: 10:12 Reevaluation #2: Multiple doses of IV antihypertensives given to patient, some improvement patient's pressure now 183/103. It was as high as 219/130. No headaches or dizziness. Will speak to hospitalist about this case for admission Time: 14:59 Medications Administered Discontinued Medications Generic Name Dose Route Start Last Admin Trade Name Freq PRN Reason Stop Dose Admin Hydralazine HCl 100 mg 02/10/23 10:09 02/10/23 10:37 Hydralazine Hcl 50 Mg Tablet PO 02/10/23 10:10 100 mg ONCE ONE Administration Protocol Hydromorphone HCl 1 mg 02/10/23 12:49 02/10/23 13:03 Hydromorphone Hcl 1 Mg/Ml Syringe IVPUSH 02/10/23 12:50 1 mg ONCE ONE Administration Protocol Sodium Chloride 1,000 mls @ 999 mls/hr 02/10/23 08:00 02/10/23 09:05 Ns IV 02/10/23 09:00 Infused .Q1H1M [facility] Infusion Labetalol HCl 10 mg 02/10/23 12:50 02/10/23 13:04 Labetalol Hcl 100 Mg/20 Ml Vial IVPUSH 02/10/23 12:51 10 mg ONCE ONE Administration Labetalol HCl 10 mg 02/10/23 14:41 02/10/23 14:54 Labetalol Hcl 100 Mg/20 Ml Vial IVPUSH 02/10/23 14:42 10 mg ONCE ONE Administration Metoprolol Succinate 100 mg 02/10/23 11:31 02/10/23 11:35 Metoprolol Succinate Er 100 Mg Tab.Er.24h PO 02/10/23 11:32 100 mg ONCE ONE Administration Protocol Morphine Sulfate 4 mg 02/10/23 07:42 02/10/23 07:50 Morphine Sulfate 4 Mg/Ml Cartridge IVPUSH 02/10/23 07:43 4 mg ONCE ONE Administration Protocol Morphine Sulfate 2 mg 02/10/23 09:15 02/10/23 09:45 Morphine Sulfate 2 Mg/Ml Cartridge IVPUSH 02/10/23 09:16 2 mg ONCE ONE Administration Protocol Nifedipine 60 mg 02/10/23 10:09 02/10/23 10:38 Nifedipine Er 60 Mg Tab.Er.24 PO 02/10/23 10:10 60 mg ONCE ONE Administration Protocol Ondansetron HCl 4 mg 02/10/23 07:51 02/10/23 07:55 Ondansetron Hcl 4 Mg/2 Ml Vial IVPUSH 02/10/23 07:52 4 mg ONCE ONE Administration Medical Decision Making Medical Decision Making MDM Narrative: 37-year-old male presents with diffuse abdominal pain nausea, vomiting since yesterday. No sick contact Physical exam diffuse abdominal pain. History and physical exam concerning for possible viral illness versus diabetic gastroparesis versus DKA. Unlikely acute abdomen, diverticulitis, cholecystitis, OBS, pancreatitis, cholecystitis, cholangitis, choledocholithiasis. Will rule out metabolic derangements, UTI, substance abuse Plan labs, imaging, urine. Differential Diagnosis Differential Diagnoses: The differential diagnosis associated with the presentation includes History and physical exam concerning for possible viral illness versus diabetic gastroparesis versus DKA. Unlikely acute abdomen, diverticulitis, cholecystitis, OBS, pancreatitis, cholecystitis, cholangitis, choledocholithiasis. Will rule out metabolic derangements, UTI, substance abuse Admission/Observation Consideration of admission/observation: Escalation of care including admission/observation considered Lab Data MDM Lab Attestation statement: I reviewed the patient's lab results. 02/10/23 07:45 02/10/23 07:45 Labs: Lab Results 02/10/23 02/10/23 02/10/23 Range/Units 07:45 07:49 10:13 WBC 12.4 H (4.8-10.8) X10*3/uL RBC 4.69 (4.60-5.80) X10*6/uL Hgb 13.8 L (14.0-18.0) g/dl Hct 40.2 L (42.0-52.0) % MCV 85.7 (80.0-98.0) fL MCH 29.4 (27.0-33.0) pg MCHC 34.3 (31.0-36.0) g/dl RDW 11.9 (11.0-16.0) % Plt Count 247 (160-400) X10*3/uL MPV 9.5 (9.4-12.4) fL Immature Gran % (Auto) 0.3 (0.0-0.4) % Neut % (Auto) 77.6 H (45-73) % Lymph % (Auto) 14.2 L (20-40) % [place] % (Auto) 6.6 (2-11) % Eos % (Auto) 1.0 (0-4) % Baso % (Auto) 0.3 (0-2) % Lymph # (Auto) 1.8 (1.2-4.9) X10*3/uL [place] # (Auto) 0.8 (0.1-1.2) X10*3/uL Eos # (Auto) 0.1 (0.0-0.4) X10*3/uL Baso # (Auto) 0.0 (0.0-0.2) X10*3/uL Abs Immat Gran (auto) 0.04 H (0.00-0.03) X10*3/uL Absolute Neuts (auto) 9.6 H (2.0-8.3) x10*3/uL Absolute Nucleated RBC 0.000 (0.0-0.012) X10*3/uL Nucleated RBC % (auto) 0.0 (0.0-0.2) /100WBC VBG pH 7.50 H (7.32-7.43) VBG pCO2 32 mmHg VBG pO2 65 mmHg VBG HCO3 25 (22-26) mmol/L VBG O2 Saturation 93.0 % VBG Base Excess 3.4 mmol/L Sodium 141 (135-145) mmol/L Potassium 3.9 (3.3-5.1) mmol/L Chloride 105 (96-108) mmol/L Carbon Dioxide 23 (22-29) mmol/L Anion Gap 17 (12-20) BUN 36 H (9-16) mg/dL Creatinine 4.49 H* (0.5-1.4) mg/dL Estim Creat Clear Calc 21.5 Estimated GFR 15 Random Glucose 132 H (60-115) mg/dL Calcium 9.3 (8.4-10.2) mg/dL Magnesium 2.2 (1.6-2.6) mg/dL Total Bilirubin 0.6 (0.0-1.0) mg/dL AST 16 (5-37) U/L ALT 14 (0-40) U/L Alkaline Phosphatase 85 (39-117) U/L Total Protein 7.3 (6.5-8.0) g/dL Albumin 4.1 (3.5-5.0) g/dL Beta-Hydroxybutyrate 1.24 H (0.02-0.27) mmol/L Urine Color Yellow Urine Appearance Clear Urine pH 6.5 (5.0-9.0) Ur Specific [place] 1.015 (1.005-1.025) Urine Protein >=1000 (4+) H (Neg-Trace) mg/dL Urine Glucose (UA) 100 H (Negative) mg/dL Urine Ketones 15 (Negative) mg/dL Urine Blood Negative (Negative) Urine Nitrite Negative (Negative) Ur Leukocyte Esterase Negative (Negative) Urine RBC 0-2 (0-2) /HPF Urine WBC 0-5 (0-5) /HPF Ur Squamous Epith Cells 0-2 (0-2) /HPF Urine Bacteria None Seen (None Seen) Hyaline Casts 0-2 (0-2) /LPF Urine Opiates Screen POSITIVE H (Not Detect) Urine Fentanyl Screen Not Detected (Not Detect) Ur Barbiturates Screen Not Detected (Not Detect) Ur Phencyclidine Scrn Not Detected (Not Detect) Ur Amphetamines Screen Not Detected (Not Detect) U Benzodiazepines Scrn Not Detected (Not Detect) Urine Cocaine Screen Not Detected (Not Detect) U Marijuana (THC) Screen POSITIVE H (Not Detect) Influenza Type A (PCR) NEGATIVE (Negative) Influenza Type B (PCR) NEGATIVE (Negative) RSV RNA Qual (PCR) NEGATIVE (Negative) SARS-CoV-2 RNA (RT-PCR) NEGATIVE (Negative) Critical Care Time Critical Care Time Critical Care Time: Yes Total Critical Care Time: 45 Attestation: I attest to this time spent taking care of the patient, obtaining history, physical, reviewing labs, imaging, speaking to my attending, speaking to specialist. Discharge Plan Discharge Clinical Impression: Abdominal pain, Hypertensive urgency Patient Disposition: Admitted As Inpatient Prescriptions: No Action atorvastatin 80 mg tablet 80 mg PO DAILY Qty: 30 6RF ezetimibe [Zetia] 10 mg tablet 10 mg PO DAILY 90 Days Qty: 90 1RF (DME) Omnipod 5 G6 Intro Kit (Gen 5) Cartridge See Rx Instructions .Route Qty: 1 4RF Rx Instructions: As directed (DME) Omnipod 5 G6 Intro Kit (Gen 5) Cartridge See Rx Instructions .Route Qty: 1 4RF Rx Instructions: As directed insulin aspart U-100 100 unit/mL solution See Rx Instructions subcut TID Qty: 20 5RF Rx Instructions: inject via insulin pump subcutaneously 3 times a day; do NOT exceed 70 units daily metoprolol succinate 50 mg tablet extended release 24 hr 1.5 tab PO DAILY insulin glargine [Lantus Solostar U-100 Insulin] 100 unit/mL (3 mL) insulin pen 22 unit subcut BEDTIME PRN (Reason: pump malfunction) nifedipine 60 mg Tablet Extended Release 24hr 60 mg PO DAILY Qty: 30 0RF Protocol: Hold for SBP< HOLD for SBP < : 90 furosemide 20 mg tablet 20 mg PO DAILY cholecalciferol (vitamin D3) [Vitamin D3] 50 mcg (2,000 unit) capsule 50 mcg PO DAILY metoclopramide HCl 5 mg Tablet 5 mg PO TIDAC PRN (Reason: Nausea and indigestion) Qty: 30 0RF tamsulosin 0.4 mg Capsule 0.4 mg PO DAILY Qty: 30 0RF morphine 15 mg tablet 15 mg PO Q8H PRN (Reason: pain) Qty: 15 0RF Rx Instructions: Partial Fill upon patient request. ondansetron 4 mg tablet,disintegrating 4 mg PO Q6-8H PRN (Reason: nausea and vomiting) Qty: 20 0RF omeprazole 40 mg capsule,delayed release(DR/EC) 40 mg PO DAILY@0630 nortriptyline 50 mg capsule 50 mg PO BEDTIME (DME) pen needle, diabetic [BD Ultra-Fine Shannan Pen Needle] 32 gauge x 5/32 needle See Rx Instructions .ROUTE QID Qty: 50 Rx Instructions: As directed gabapentin 300 mg capsule 300 mg PO BEDTIME hydralazine 100 mg tablet 100 mg PO TID
[2023-02-10 07:51] LABS: MANUAL DIFF FLAG NO
[2023-02-10 07:52] LABS: Basophils Percent Auto 0.3 % (0-2); Eosinophils Absolute Auto 0.1 X10*3/uL (0.0-0.4); Hematocrit 40.2 % (42.0-52.0); Hemoglobin 13.8 g/dl (14.0-18.0); Imm Gran Abs Auto 0.04 X10*3/uL (0.00-0.03); Imm Gran Pct Auto 0.3 % (0.0-0.4); Lymphocytes Absolute Auto 1.8 X10*3/uL (1.2-4.9); Lymphocytes Percent Auto 14.2 % (20-40); Mean Corpuscular HGB Conc 34.3 g/dl (31.0-36.0); Mean Corpuscular Hemoglobin 29.4 pg (27.0-33.0); Mean Corpuscular Volume 85.7 fL (80.0-98.0); Mean Platelet Volume 9.5 fL (9.4-12.4); Monocytes Absolute Auto 0.8 X10*3/uL (0.1-1.2); Monocytes Percent Auto 6.6 % (2-11); Neutrophils Absolute Auto 9.6 x10*3/uL (2.0-8.3); Neutrophils Percent Auto 77.6 % (45-73); Platelet Count 247 X10*3/uL (160-400); Red Blood Count 4.69 X10*6/uL (4.60-5.80); Red Cell Distribution Width 11.9 % (11.0-16.0); White Blood Count 12.4 X10*3/uL (4.8-10.8)
[2023-02-10 07:55] LABS: VBG Base Excess 3.4 mmol/L; VBG HCO3 25 mmol/L (22-26); VBG pCO2 32 mmHg; VBG pO2 65 mmHg
[2023-02-10] MEDS: ondansetron HCL 4 MG/2 ML VIAL IVPUSH ×2 (07:55→23:48)
[2023-02-10] MEDS: 0.9 % Sodium Chloride 1,000 ML 999 ML IV (07:56)
[2023-02-10 08:25] LABS: Beta-Hydroxybutyrate 1.24 mmol/L (0.02-0.27)
[2023-02-10 08:26] LABS: Venous Blood Gas Refer to POC result
[2023-02-10 08:29] LABS: Alanine Aminotransferase 14 U/L (0-40); Albumin Level 4.1 g/dL (3.5-5.0); Alkaline Phosphatase 85 U/L (39-117); Anion Gap 17 (12-20); Aspartate Amino Transferase 16 U/L (5-37); Bilirubin Total 0.6 mg/dL (0.0-1.0); Blood Urea Nitrogen 36 mg/dL (9-16); Calcium 9.3 mg/dL (8.4-10.2); Carbon Dioxide 23 mmol/L (22-29); Chloride 105 mmol/L (96-108); Creatinine Clr Calc Pharmacy 21.5; Estimated Glomerular Filt Rate 15; Glucose Random 132 mg/dL (60-115); Magnesium 2.2 mg/dL (1.6-2.6); Potassium 3.9 mmol/L (3.3-5.1); Sodium 141 mmol/L (135-145); Total Protein 7.3 g/dL (6.5-8.0)
--- NOTE | 2023-02-10 08:30 | PC.NURSE ---
PT RESTING QUIETLY IN BED NOW, APPEARS MORE COMFORTABLE
[2023-02-10 08:39] LABS: Influenza A PCR NEGATIVE (Negative); Influenza B PCR NEGATIVE (Negative); Resp Syncy Virus RNA Qual PCR NEGATIVE (Negative); SARS COV2 PCR INHOUSE NEGATIVE (Negative)
--- NOTE | 2023-02-10 09:38 | PC.NURSE ---
medication pulled from pyxis - pt currently in Ct at this time. will administer medication when pt returns.
[2023-02-10] MEDS: Morphine Sulfate 2 MG/ML CARTRIDGE IVPUSH (09:45)
--- NOTE | 2023-02-10 10:00 | PC.NURSE ---
pt returned from CT - medication administered per provider order. vss and up to date aside from being hypertensive - provider aware of pt's BP on L and R arm.
--- NOTE | 2023-02-10 10:13 | PC.NURSE ---
urine obtained/sent to lab.
[2023-02-10 10:22] LABS: Appearance Urine Clear; Color Urine Yellow; Glucose Urine UA 100 mg/dL (Negative); Leukocyte Esterase Urine Negative (Negative); Nitrite Urine Negative (Negative); PH 6.5 (5.0-9.0); Specific Gravity - Urine 1.015 (1.005-1.025); UMIC TRIGGER UACC YES; Urine Blood Negative (Negative); Urine Ketones 15 mg/dL (Negative); Urine Protein >=1000 (4+) mg/dL (Neg-Trace)
[2023-02-10 10:24] LABS: Bacteria Urine None Seen (None Seen); Hyaline Casts Urine 0-2 /LPF (0-2); RBC Urine 0-2 /HPF (0-2); Squamous Epithelial Cell Urine 0-2 /HPF (0-2); WBC Urine 0-5 /HPF (0-5)
[2023-02-10 10:32] LABS: Amphetamine Screen Urine Not Detected (Not Detect); Barbiturates, Urine Not Detected (Not Detect); Benzodiazepines Screen Urine Not Detected (Not Detect); Cannabinoid Screen Urine POSITIVE (Not Detect); Cocaine Screen Urine Not Detected (Not Detect); Fentanyl, urine Not Detected (Not Detect); Opiate Screen Urine POSITIVE (Not Detect); Phencyclidine Screen Urine Not Detected (Not Detect)
[2023-02-10] MEDS: hydrALAZINE HCl 50 MG TABLET 100 MG PO ×3 (10:37→21:55)
[2023-02-10] MEDS: NIFEdipine ER 60 MG TAB.ER.24 PO (10:38)
--- NOTE | 2023-02-10 10:41 | PC.NURSE ---
medication administered per provider order. pt still verbalizing 10/10 abdominal pain at this time. provider aware.
[2023-02-10] MEDS: Metoprolol Succinate ER 100 MG TAB.ER.24H PO (11:35)
--- NOTE | 2023-02-10 11:36 | PC.NURSE ---
pt remains hypertensive at this time. provider aware. medication administered per provider order.
[2023-02-10] MEDS: HYDROmorphone HCl 1 MG/ML SYRINGE IVPUSH (13:03)
[2023-02-10] MEDS: Labetalol HCL 100 MG/20 ML VIAL 10 MG IVPUSH ×2 (13:04→14:54)
--- NOTE | 2023-02-10 13:05 | PC.NURSE ---
medication administered per provider order. will reassess pain level/BP.
--- NOTE | 2023-02-10 14:52 | PC.NURSE ---
vss and up to date at this time aside from remaining hypertensive. pt verbalizing pain level increased back to 6/10 at this time. denies feeling nauseous. medication administered per provider order. resting comfortably w/ the lights dimmed in no apparent distress. respirations even/unlabored. call lizarraga placed within reach.
--- NOTE | 2023-02-10 14:59 | ECG_ITS ---
Test Reason : ABDOMINAL PAIIN Blood Pressure : / mmHG Vent. Rate : 102 BPM Atrial Rate : 102 BPM P-R Int : 120 ms QRS Dur : 086 ms QT Int : 354 ms P-R-T Axes : 058 058 031 degrees QTc Int : 461 ms Sinus tachycardia Otherwise normal ECG When compared with ECG of 02-FEB-2023 21:02, No significant change was found Referred By: Taiwo Motley Electronically Signed By:LESLIE GEIGER MD
--- NOTE | 2023-02-10 15:43 | P.HPHOSP_ITS ---
<Statement entered by Neal Godoy MD - 02/10/23 19:00> The patient was seen and evaluated with Stephie Mcdonough NP. I agree with her note, assessment and plan with the following. In summary, a 37 years old male with PMH of HTN and CKD presenting with nausea and weakness found to be in hypertensive urgency. Hypertensive urgency Start home medications IV Hydralazine\LAbetalol as needed Goal to keep SBP 160-180 overnight Telemetry Rest of evaluations by [employer] note. History of Present Illness Date of Service: 02/10/23 <Stephie Mcdonough NP - Last Filed: 02/11/23 15:40> Chief Complaint: Abdominal pain, intractable nausea and vomiting <Stephie Mcdonough NP - Last Filed: 02/11/23 15:40> 29-year-old man with a history of diabetes, hypertension, legal blindness, nephrosclerosis presented to the ER with complaints of intractable nausea, vomiting and diffuse abdominal pain that started yesterday. He reports that he smokes marijuana on a regular basis but no other drugs, he does not drink any alcohol. He denied any recent travel, improperly cooked foods, chest pain, shortness of breath, fever, chills, sick contacts. He has been admitted in the past and treated for viral gastroenteritis and diabetic gastroparesis. He is noted to have a very mildly elevated white blood cell count of 12.4, chronically elevated creatinine of 4.49, abdominal pelvic CT showing possible mild colitis. She has no noted fever. His blood pressures are quite elevated which is chronic for him to have hypertensive urgency. He was treated with hydralazine, nifedipine, metoprolol, 2 doses of labetalol in the ER with minimal control of his blood pressure. At this point he willplace on observation for further management and treatment of intractable nausea and vomiting and hypertensive urgency. <Stephie Mcdonough NP - Last Filed: 02/11/23 15:40> Review of Systems 2 Review of Systems: Denies any recent fever chills or decrease in appetite respiratory denies any shortness of breath or cough cardiovascular denies chest pain gastrointestinal see HPI genitourinary denies any dysuria frequency or hematuria musculoskeletal denies any joint pain or swelling neuropsych denies any weakness or seizures all other systems reviewed are negative <Stephie Mcdonough NP - Last Filed: 02/11/23 15:40> [facility] Medical History: Medical History (Updated 02/11/23 @ 09:42 by Onur Bejarano MD) CKD (chronic kidney disease) stage 4, GFR 15-29 ml/min Hypertensive nephrosclerosis Diabetic gastroparesis Pancreatitis Vitamin D deficiency Hypocalcemia Background diabetic retinopathy associated with type 2 diabetes mellitus Diabetes type 1, uncontrolled Hemangioma of liver Legally blind Acid reflux Sciatica Gastritis Polyneuropathy Essential hypertension Hyperlipidemia LDL goal <70 <Stephie Mcdonough NP - Last Filed: 02/11/23 15:40> Family History: Family History Father Diabetes mellitus Mother Diabetes mellitus Maternal Grandfather Diabetes mellitus Maternal Grandmother Diabetes mellitus <Stephie Mcdonough NP - Last Filed: 02/11/23 15:40> Surgical History: Surgical History Hx of endoscopy Hx of circumcision Hx of appendectomy Hx of eye surgery <Stephie Mcdonough NP - Last Filed: 02/11/23 15:40> Social History: Social History Household Members: Spouse Household Members Other:: and girlfriend Housing: Apartment Do you presently have visiting nurse or other home services: No Alcohol intake: never Comment: refusing fall risk interventions. Patient Tobacco Use Status: Former Tobacco user Smoked in Last 30 Days: No Second Hand Smoke Exposure: No Use of substances other than those prescribed or required for medical reasons: No Substance Use Type: Marijuana Advance Directives: Yes Advance Directives on File: Yes Advance Directives Date on File: 04/13/20 Nutrition Risks: No Nutritional Risk service: No Current occupational status: disabled <Stephie Mcdonough NP - Last Filed: 02/11/23 15:40> Meds Allergies/Adverse reactions: Allergies Allergy/AdvReac Type Severity Reaction Status Date / Time gluten Allergy Gastrointestinal Verified 02/06/23 20:20 Upset losartan Allergy Gastrointestinal Verified 02/06/23 20:20 Upset valsartan AdvReac Unknown GI problems Verified 02/06/23 20:20 <Stephie Mcdonough NP - Last Filed: 02/11/23 15:40> Active Medications: Current Medications Acetaminophen (Acetaminophen 325 Mg Tablet) 650 mg PO Q6H PRN PRN Reason: Pain, Mild (Pain Scale 1-3) Dextrose (Dextrose 50 % 25 Gm/50 Ml Syringe) 25 gm IVPUSH Q15M PRN; Protocol PRN Reason: per Hypoglycemia Standing Ord. Famotidine (Famotidine/Pf 20 Mg/2 Ml Vial) 20 mg IVPUSH BID [place] Glucose (Glucose Gel 15 Gm Gel..Gram.) 15 gm PO Q15M PRN; Protocol PRN Reason: per Hypoglycemia Standing Ord. Heparin Sodium (Porcine) (Heparin Sodium,Porcine 5,000 Unit/Ml Vial) 5,000 unit SUBCUT Q12H [place] Lactated Ringer's (Lr) 1,000 mls @ 100 mls/hr IVCONT .Q10H [place] Insulin Human Lispro (Insulin Lispro 100 Unit/Ml 3 Ml Vial) 0 unit SUBCUT QIDACHS [place]SANA; Protocol Ondansetron HCl (Ondansetron Hcl 4 Mg/2 Ml Vial) 4 mg IVPUSH Q8H PRN PRN Reason: Nausea and Vomiting Sodium Chloride (0.9 % Sodium Chloride Flush 3 Ml Syringe) 3 ml IVFLUSH QSHIFT [facility] <Stephie Mcdonough NP - Last Filed: 02/11/23 15:40> Home medications: Home Medications Medication Instructions Recorded Confirmed Last Taken Type omeprazole 40 mg capsule,delayed 40 mg PO DAILY@0630 01/04/20 02/10/23 02/09/23 History release pen needle, diabetic 32 gauge x #50 ea 07/12/21 07/12/21 Unknown History (BD Ultra-Fine Shannan Pen Needle) metoprolol succinate 50 mg 50 mg PO DAILY 07/29/21 02/10/23 02/09/23 History tablet,extended release 24 hr insulin glargine 100 unit/mL (3 22 unit subcut BEDTIME PRN pump 03/08/22 02/10/23 03/07/22 History mL) subcutaneous pen (Lantus malfunction Solostar U-100 Insulin) gabapentin 300 mg capsule 300 mg PO BEDTIME 05/13/22 02/10/23 02/09/23 History hydralazine 100 mg tablet 100 mg PO TID 05/13/22 02/10/23 02/09/23 History cholecalciferol (vitamin D3) 50 50 mcg PO DAILY 10/16/22 02/10/23 02/09/23 History mcg (2,000 unit) capsule (Vitamin D3) furosemide 20 mg tablet 20 mg PO DAILY 10/16/22 02/10/23 02/09/23 History metoprolol succinate 100 mg 100 mg PO DAILY 02/10/23 02/10/23 02/09/23 History tablet,extended release 24 hr nifedipine 30 mg tablet,extended 30 mg PO QAM 02/10/23 02/10/23 02/09/23 History release 24 hr <Stephie Mcdonough NP - Last Filed: 02/11/23 15:40> Physical Exam 2 Vital Signs and Narrative: Vital Signs: Last Vital Signs Temp 97.7 F 02/10/23 09:47 Pulse 93 02/10/23 14:52 Resp 16 02/10/23 14:52 BP 183/103 H 02/10/23 14:52 Pulse Ox 96 02/10/23 14:52 O2 Del Method Room Air 02/10/23 14:52 BMI result Body Mass Index 25.8 <Stephie Mcdonough NP - Last Filed: 02/11/23 15:40> Appearing in no acute distress head is normocephalic atraumatic eyes pupils are PERRLA sclera is anicteric mouth throat mucous membranes are intact and moist neck is supple no lymphadenopathy, no JVD noted lung sounds are clear to auscultation heart regular rate rhythm, clear S1, S2 positive bowel sounds, abdomen is soft, nontender neuro patient is alert x3, no focal deficits <Stephie Mcdonough NP - Last Filed: 02/11/23 15:40> Results Labs CBC and Chem 7: 02/11/23 05:11 02/11/23 05:11 <Stephie Mcdonough NP - Last Filed: 02/11/23 15:40> Labs: Laboratory Results - last 24 hr 02/10/23 02/10/23 02/10/23 07:45 07:49 10:13 MCV 85.7 MCH 29.4 MCHC 34.3 RDW 11.9 Plt Count 247 MPV 9.5 Immature Gran % (Auto) 0.3 Neut % (Auto) 77.6 H Lymph % (Auto) 14.2 L [place] % (Auto) 6.6 Eos % (Auto) 1.0 Baso % (Auto) 0.3 Lymph # (Auto) 1.8 [place] # (Auto) 0.8 Eos # (Auto) 0.1 Baso # (Auto) 0.0 Abs Immat Gran (auto) 0.04 H Absolute Neuts (auto) 9.6 H Absolute Nucleated RBC 0.000 Nucleated RBC % (auto) 0.0 VBG pH 7.50 H VBG pCO2 32 VBG pO2 65 VBG HCO3 25 VBG O2 Saturation 93.0 VBG Base Excess 3.4 Anion Gap 17 Estim Creat Clear Calc 21.5 Estimated GFR 15 Random Glucose 132 H Calcium 9.3 Magnesium 2.2 Total Bilirubin 0.6 AST 16 ALT 14 Alkaline Phosphatase 85 Total Protein 7.3 Albumin 4.1 Beta-Hydroxybutyrate 1.24 H Urine Color Yellow Urine Appearance Clear Urine pH 6.5 Ur Specific [place] 1.015 Urine Protein >=1000 (4+) H Urine Glucose (UA) 100 H Urine Ketones 15 Urine Blood Negative Urine Nitrite Negative Ur Leukocyte Esterase Negative Urine RBC 0-2 Urine WBC 0-5 Ur Squamous Epith Cells 0-2 Urine Bacteria None Seen Hyaline Casts 0-2 Urine Opiates Screen POSITIVE H Urine Fentanyl Screen Not Detected Ur Barbiturates Screen Not Detected Ur Phencyclidine Scrn Not Detected Ur Amphetamines Screen Not Detected U Benzodiazepines Scrn Not Detected Urine Cocaine Screen Not Detected U Marijuana (THC) Screen POSITIVE H Influenza Type A (PCR) NEGATIVE Influenza Type B (PCR) NEGATIVE RSV RNA Qual (PCR) NEGATIVE SARS-CoV-2 RNA (RT-PCR) NEGATIVE <Stephie Mcdonough NP - Last Filed: 02/11/23 15:40> Imaging Radiologist's Impressions: Impressions Abdomen/Pelvis CT 02/10/23 09:43 IMPRESSION: Mild thickening of the distal descending colon possibly a mild colitis. Mild gaseous distention of the stomach. No other significant abnormality seen. Fleischner guidelines were followed. <Stephie Mcdonough NP - Last Filed: 02/11/23 15:40> Assessment and Plan (1) Hypertensive urgency: Status: Acute <Stephie Mcdonough NP - Last Filed: 02/11/23 15:40> (2) Abdominal pain: Status: Acute <Stephie Mcdonough NP - Last Filed: 02/11/23 15:40> 37-year-old man admitted with intractable nausea and vomiting with abdominal pain and history of diabetes, hypertension and CKD stage 4 Intractable nausea and vomiting and abdominal pain abdominal CT showing possibly mild colitis, mild gaseous distension of the stomach History of marijuana use Treat with antiemetics, IV fluids, zosyn empirically for possible colitis GI consultation IV Pepcid Hypertensive urgency History of continue antihypertensive medications Nephrology consultation IV p.r.n. hydralazine for systolic blood pressure greater than 180 Diabetes mellitus 1 Continue home insulin Add sliding scale Diabetic diet GERD IV Pepcid DVT prophylaxis with heparin Full code Observation <Stephie Mcdonough NP - Last Filed: 02/11/23 15:40> Quality Stroke Does the patient have a stroke diagnosis?: No <Neal Godoy MD - Last Filed: 02/10/23 19:01> VTE Prior VTE?: No <Neal Godoy MD - Last Filed: 02/10/23 19:01> VTE Risk Level:: Medical - moderate - high <Stephie Mcdonough NP - Last Filed: 02/11/23 15:40> VTE Device Contraindication: Treatment Not Indicated <Stephie Mcdonough NP - Last Filed: 02/11/23 15:40> VTE Drug Contraindication: N/A - Med Ordered <Stephie Mcdonough NP - Last Filed: 02/11/23 15:40>
[2023-02-10] MEDS: Lactated Ringers 1,000 ML 100 ML IVCONT (15:58)
[2023-02-10] MEDS: Heparin Sodium,Porcine 5,000 UNIT/ML VIAL 5000 UNIT SUBCUT (16:01)
[2023-02-10] MEDS: 0.9 % Sodium Chloride Flush 3 ML SYRINGE IVFLUSH ×2 (16:02→23:28)
--- NOTE | 2023-02-10 17:54 | PHA.MEDREC ---
Pharmacy Consult ? Medication Reconciliation Pharmacy has completed the medication reconciliation. Spoke to patient (via rides attendant) and confirmed medication list. Patient has bag of medications that he takes (noted that nortriptyline was not in the bag).
[2023-02-10 18:10] LABS: Glucose, Whole Blood 194 mg/dL (60-115)
[2023-02-10] MEDS: Morphine Sulfate 2 MG/ML CARTRIDGE 1 MG IVPUSH ×2 (18:12→23:48)
[2023-02-10] MEDS: Insulin Lispro 100 UNIT/ML 3 ML VIAL SUBCUT ×2 (18:12→21:54)
[2023-02-10] MEDS: Piperacillin Sodium/Tazobactam 2.25 GM in 0.9 % Sodium Chloride 50 ML IV ×2 (18:13→23:27)
[2023-02-10] MEDS: Simethicone 80 MG TAB.CHEW PO (19:08)
[2023-02-10 21:54] LABS: Glucose, Whole Blood 195 mg/dL (60-115)
[2023-02-10] MEDS: Famotidine/PF 20 MG/2 ML VIAL IVPUSH (21:54)
[2023-02-10] MEDS: Gabapentin 300 MG CAPSULE PO (21:55)
[2023-02-11] MEDS: Lactated Ringers 1,000 ML 100 ML IVCONT ×2 (02:49→12:06)
[2023-02-11] MEDS: Heparin Sodium,Porcine 5,000 UNIT/ML VIAL 5000 UNIT SUBCUT (04:14)
[2023-02-11] MEDS: Piperacillin Sodium/Tazobactam 2.25 GM in 0.9 % Sodium Chloride 50 ML IV ×2 (04:16→11:32)
[2023-02-11 05:18] LABS: MANUAL DIFF FLAG NO
[2023-02-11 05:20] LABS: Basophils Percent Auto 0.4 % (0-2); Eosinophils Absolute Auto 0.1 X10*3/uL (0.0-0.4); Eosinophils Percent Auto 0.5 % (0-4); Hematocrit 36.4 % (42.0-52.0); Hemoglobin 12.4 g/dl (14.0-18.0); Imm Gran Abs Auto 0.02 X10*3/uL (0.00-0.03); Imm Gran Pct Auto 0.2 % (0.0-0.4); Lymphocytes Absolute Auto 2.1 X10*3/uL (1.2-4.9); Lymphocytes Percent Auto 20.6 % (20-40); Mean Corpuscular HGB Conc 34.1 g/dl (31.0-36.0); Mean Corpuscular Volume 87.9 fL (80.0-98.0); Monocytes Percent Auto 9.9 % (2-11); Neutrophils Absolute Auto 6.8 x10*3/uL (2.0-8.3); Neutrophils Percent Auto 68.4 % (45-73); Platelet Count 222 X10*3/uL (160-400); Red Blood Count 4.14 X10*6/uL (4.60-5.80); Red Cell Distribution Width 12.1 % (11.0-16.0)
[2023-02-11 05:33] VITALS: BP 165/97; PULSE 97; RESP 17; TEMP 37.2; O2SAT 95
[2023-02-11 05:40] LABS: Anion Gap 15 (12-20); Blood Urea Nitrogen 39 mg/dL (9-16); Calcium 8.7 mg/dL (8.4-10.2); Carbon Dioxide 24 mmol/L (22-29); Chloride 105 mmol/L (96-108); Creatinine Clr Calc Pharmacy 23.8; Estimated Glomerular Filt Rate 17; Glucose Random 198 mg/dL (60-115); Potassium 4.4 mmol/L (3.3-5.1); Sodium 140 mmol/L (135-145)
[2023-02-11] MEDS: Omeprazole 40 MG CAPSULE.DR PO (06:09)
--- NOTE | 2023-02-11 07:06 | PM.GICN ---
History of Present Illness Data of Consult Service Date: 02/11/23 Requesting physician: Stephie Mcdonough Primary Care Provider: Hong Rodríguez MD HPI Reason for consult: nausea, vomiting 37-year-old man with uncontrolled type 1 DM, diabetic nephropathy with CKD stage 4, diabetic retinopathy with blindness, diabetic polyneuropathy, GERD, hypertension, hyperlipidemia, hx of pancreatitis, who I am seeing for nausea and vomiting. The patient initially presented to the ER with 1-2 d hx of intractable nausea, vomiting and 6-7/10 epigastric abdominal pain worse with food, w/o relieving factors and non radiating. When I came to see patient he was relaxed and denies any further pain, nausea or vomtiing now. He does smoke marijuana on a regular basis,denies other drugs, and alcohol intake. He denies recent travel, improperly cooked foods, chest pain, shortness of breath, fever, chills, sick contacts. He has had prior admissions in the past and treated for viral gastroenteritis and diabetic gastroparesis. Denies taking nsaids. He did ahve high BP on admission and treated with hydralazine, nifedipine, metoprolol, 2 doses of labetalol LAB:S white blood cell count of 12.4, chronically elevated creatinine of 4.49, IMAGING: CT: abdominal pelvic: possible mild colitis. Review of Systems Review of Systems: Constitutional : No Weight loss, No Fever, No Chills ENT/Mouth : No sore throat, No Rhinorrhea Eyes: No Swelling, No Redness Cardiovascular : No Chest Pain, No SOB, No Edema Respiratory : No Cough, No Sputum, No Wheezing Gastrointestinal : see HPI Genitourinary : NO Dysuria, No Urinary Frequency, No Hematuria, No Urgency Musculoskeletal : No joint pain, No Myalgias, No Joint Swelling Skin : No Skin Lesions, No rash Neuro : No Weakness, No Numbness, No Dizziness, No Headache Psych : No Anxiety/Panic, No Depression Heme/Lymph: No Bruising, No Lymphadenopathy Endocrine : No Polyuria, No Polydipsia All other systems reviewed and are negative. [facility] Past Medical History Medical History (Updated 02/11/23 @ 19:51 by Noe Chandra MD) CKD (chronic kidney disease) stage 4, GFR 15-29 ml/min Hypertensive nephrosclerosis Diabetic gastroparesis Pancreatitis Vitamin D deficiency Hypocalcemia Background diabetic retinopathy associated with type 2 diabetes mellitus Diabetes type 1, uncontrolled Hemangioma of liver Legally blind Acid reflux Sciatica Gastritis Polyneuropathy Essential hypertension Hyperlipidemia LDL goal <70 Family History Family History Father Diabetes mellitus Mother Diabetes mellitus Maternal Grandfather Diabetes mellitus Maternal Grandmother Diabetes mellitus Surgical History Surgical History Hx of endoscopy Hx of circumcision Hx of appendectomy Hx of eye surgery Social History Social History Household Members: Spouse Household Members Other:: and girlfriend Housing: Apartment Do you presently have visiting nurse or other home services: No Alcohol intake: never Comment: refusing fall risk interventions. Patient Tobacco Use Status: Former Tobacco user Second Hand Smoke Exposure: No Substance Use Type: Marijuana Advance Directives Date on File: 04/13/20 service: No Current occupational status: disabled Meds Allergies Allergy/AdvReac Type Severity Reaction Status Date / Time gluten Allergy Gastrointestinal Verified 02/06/23 20:20 Upset losartan Allergy Gastrointestinal Verified 02/06/23 20:20 Upset valsartan AdvReac Unknown GI problems Verified 02/06/23 20:20 Active Medications: Current Medications Acetaminophen (Acetaminophen 325 Mg Tablet) 650 mg PO Q6H PRN PRN Reason: Pain, Mild (Pain Scale 1-3) Atorvastatin Calcium (Atorvastatin Calcium 80 Mg Tablet) 80 mg PO DAILY [place] Dextrose (Dextrose 50 % 25 Gm/50 Ml Syringe) 25 gm IVPUSH Q15M PRN; Protocol PRN Reason: per Hypoglycemia Standing Ord. Ezetimibe (Ezetimibe 10 Mg Tablet) 10 mg PO DAILY [place] Famotidine (Famotidine/Pf 20 Mg/2 Ml Vial) 20 mg IVPUSH BID [place]NA Last Admin: 02/10/23 21:54 Dose: 20 mg Furosemide (Furosemide 20 Mg Tablet) 20 mg PO DAILY [place]SANA; Protocol Gabapentin (Gabapentin 300 Mg Capsule) 300 mg PO BEDTIME [place]NA Last Admin: 02/10/23 21:55 Dose: 300 mg Glucose (Glucose Gel 15 Gm Gel..Gram.) 15 gm PO Q15M PRN; Protocol PRN Reason: per Hypoglycemia Standing Ord. Heparin Sodium (Porcine) (Heparin Sodium,Porcine 5,000 Unit/Ml Vial) 5,000 unit SUBCUT Q12H [facility] Last Admin: 02/11/23 04:14 Dose: 5,000 unit Hydralazine HCl (Hydralazine Hcl 20 Mg/Ml Vial) 20 mg IVPUSH Q4H PRN; Protocol PRN Reason: SBP>190 Hydralazine HCl (Hydralazine Hcl 50 Mg Tablet) 100 mg PO TID [facility]; Protocol Last Admin: 02/10/23 21:55 Dose: 100 mg Hydralazine HCl (Hydralazine Hcl 50 Mg Tablet) 100 mg PO TID [facility]; Protocol Last Admin: 02/10/23 21:55 Dose: 100 mg Lactated Ringer's (Lr) 1,000 mls @ 100 mls/hr IVCONT .Q10H [facility] Last Admin: 02/11/23 02:49 Dose: 100 mls/hr Piperacillin Sod/Tazobactam (Sod 2.25 gm/ Sodium Chloride) 50 mls @ 100 mls/hr IV Q6H [facility] Last Infusion: 02/11/23 05:07 Dose: Infused Insulin Human Lispro (Insulin Lispro 100 Unit/Ml 3 Ml Vial) 0 unit SUBCUT QIDACHS [facility]; Protocol Last Admin: 02/10/23 21:54 Dose: 2 unit Metoprolol Succinate (Metoprolol Succinate Er 100 Mg Tab.Er.24h) 100 mg PO DAILY [facility]; Protocol Metoprolol Succinate (Metoprolol Succinate Er 50 Mg Tab.Er.24h) 50 mg PO DAILY [facility]; Protocol Morphine Sulfate (Morphine Sulfate 2 Mg/Ml Cartridge) 1 mg IVPUSH Q4H PRN; Protocol PRN Reason: Pain, Moderate(Pain Scale 4-6) Last Admin: 02/10/23 23:48 Dose: 1 mg Nifedipine (Nifedipine Er 30 Mg Tab.Er.24) 30 mg PO DAILY [facility]; Protocol Omeprazole (Omeprazole 40 Mg Capsule.Dr) 40 mg PO DAILY@0630 [facility] Last Admin: 02/11/23 06:09 Dose: 40 mg Ondansetron HCl (Ondansetron Hcl 4 Mg/2 Ml Vial) 4 mg IVPUSH Q8H PRN PRN Reason: Nausea and Vomiting Last Admin: 02/10/23 23:48 Dose: 4 mg Simethicone (Simethicone 80 Mg Tab.Chew) 80 mg PO QIDWMHS PRN PRN Reason: Gas Last Admin: 02/10/23 19:08 Dose: 80 mg Sodium Chloride (0.9 % Sodium Chloride Flush 3 Ml Syringe) 3 ml IVFLUSH QSHIFT [facility] Last Admin: 02/10/23 23:28 Dose: 3 ml Home Medications Medication Instructions Recorded Confirmed Last Taken Type omeprazole 40 mg capsule,delayed 40 mg PO DAILY@0630 01/04/20 02/10/23 02/09/23 History release pen needle, diabetic 32 gauge x #50 ea 07/12/21 07/12/21 Unknown History (BD Ultra-Fine Shannan Pen Needle) metoprolol succinate 50 mg 50 mg PO DAILY 07/29/21 02/10/23 02/09/23 History tablet,extended release 24 hr insulin glargine 100 unit/mL (3 22 unit subcut BEDTIME PRN pump 03/08/22 02/10/23 03/07/22 History mL) subcutaneous pen (Lantus malfunction Solostar U-100 Insulin) gabapentin 300 mg capsule 300 mg PO BEDTIME 05/13/22 02/10/23 02/09/23 History hydralazine 100 mg tablet 100 mg PO TID 05/13/22 02/10/23 02/09/23 History cholecalciferol (vitamin D3) 50 50 mcg PO DAILY 10/16/22 02/10/23 02/09/23 History mcg (2,000 unit) capsule (Vitamin D3) furosemide 20 mg tablet 20 mg PO DAILY 10/16/22 02/10/23 02/09/23 History metoprolol succinate 100 mg 100 mg PO DAILY 02/10/23 02/10/23 02/09/23 History tablet,extended release 24 hr nifedipine 30 mg tablet,extended 30 mg PO QAM 02/10/23 02/10/23 02/09/23 History release 24 hr Physical Exam Vital Signs: Vital Signs: Last Vital Signs Temp 98.9 F 02/11/23 05:33 Pulse 97 02/11/23 05:33 Resp 17 02/11/23 05:33 BP 165/97 H 02/11/23 05:33 Pulse Ox 95 02/11/23 05:33 O2 Del Method Room Air 02/11/23 05:33 BMI result Body Mass Index 25.8 EXAM: GENERAL: The patient is relaxed VITAL SIGNS:see workflow HEENT: Nonicteric sclerae, PERRLA, EOMI. Oropharynx clear. Moist mucous membranes. Conjunctivae appear well perfused--scarring and blindness in eyes. No thyroid mass. CHEST: Chest wall is nontender. HEART: Regular rate and rhythm without murmurs. LUNGS: Clear to auscultation bilaterally. ABDOMEN: Soft, positive bowel sounds, mildly tender epigastrium, no organomegaly.no flank tenderness SKIN: No rash, no excessive bruising, petechiae, or purpura. NEUROLOGIC: Cranial nerves II-XII intact without motor/sensory deficit. Results Labs 02/11/23 05:11 02/11/23 05:11 Labs: Short CBC 02/10/23 02/11/23 Range/Units 07:45 05:11 WBC 12.4 H 10.0 (4.8-10.8) X10*3/uL Hgb 13.8 L 12.4 L (14.0-18.0) g/dl Hct 40.2 L 36.4 L (42.0-52.0) % Plt Count 247 222 (160-400) X10*3/uL BMP 02/10/23 02/11/23 07:45 05:11 Sodium 141 140 Potassium 3.9 4.4 Chloride 105 105 Carbon Dioxide 23 24 BUN 36 H 39 H Creatinine 4.49 H* 4.07 H* Calcium 9.3 8.7 D Cardiac Enzymes 02/10/23 Range/Units 07:45 Total Creatine Kinase 170 (38-174) U/L Liver Function 02/10/23 Range/Units 07:45 Total Bilirubin 0.6 (0.0-1.0) mg/dL AST 16 (5-37) U/L ALT 14 (0-40) U/L Alkaline Phosphatase 85 (39-117) U/L Albumin 4.1 (3.5-5.0) g/dL Urine 02/10/23 Range/Units 10:13 Urine Color Yellow Urine Appearance Clear Urine pH 6.5 (5.0-9.0) Ur Specific [place] 1.015 (1.005-1.025) Urine Protein >=1000 (4+) H (Neg-Trace) mg/dL Urine Glucose (UA) 100 H (Negative) mg/dL Imaging CT scan - abdomen: Attestation: I personally reviewed and interpreted this imaging study as follows: (distended stomach, constipation, mild stranding desc colon, thickening of esophagus) Assessment and Plan (1) Abdominal pain: Qualifiers: Abdominal location: epigastric Qualified Code(s): R10.13 - Epigastric pain Status: Acute (2) Hypertensive urgency: Status: Acute Plan 1/ nausea, vomiting, epigastric pain with distended stomach ddx: flare up gastroparesis, cannabis hyperemesis syndrome, gastroenteritis --now much improved PLAN: 1/ anti emetic as needed 2/ advance diet clears 3/ advised on THC avoidance, might be ok to use CBD oil without THC component 4/ low fat and low fiber diet 5/ Po pantoprazole 40 mg OD 6/ if sx worsen then can consider EGD for further analysis, if any diarrhea then send for stool studies --stool pcr and c diff Procedures Date of Service Date of Service: 02/11/23
[2023-02-11 08:23] VITALS: BP 154/94; PULSE 88; RESP 18; TEMP 36.9; O2SAT 94
[2023-02-11 08:27] LABS: Glucose, Whole Blood 201 mg/dL (60-115)
[2023-02-11] MEDS: Metoprolol Succinate ER 50 MG TAB.ER.24H PO (09:13)
[2023-02-11] MEDS: Metoprolol Succinate ER 100 MG TAB.ER.24H PO (09:13)
[2023-02-11] MEDS: Furosemide 20 MG TABLET PO (09:13)
[2023-02-11] MEDS: Atorvastatin Calcium 80 MG TABLET PO (09:13)
[2023-02-11] MEDS: Ezetimibe 10 MG TABLET PO (09:13)
[2023-02-11] MEDS: Insulin Lispro 100 UNIT/ML 3 ML VIAL SUBCUT (09:14)
[2023-02-11] MEDS: Famotidine/PF 20 MG/2 ML VIAL IVPUSH (09:14)
[2023-02-11] MEDS: 0.9 % Sodium Chloride Flush 3 ML SYRINGE IVFLUSH (09:18)
--- NOTE | 2023-02-11 09:39 | PM.CNNEP ---
History of Present Illness Reason for Consult Consult date: 02/11/23 Chief Complaint Chief complaint: Intractable nausea and vomiting History of Present Illness Narrative: 29-year-old man with a history of diabetes, hypertension, legal blindness, nephrosclerosis presented to the ER with complaints of intractable nausea, vomiting and diffuse abdominal pain that started yesterday. He reports that he smokes marijuana on a regular basis but no other drugs, he does not drink any alcohol. He denied any recent travel, improperly cooked foods, chest pain, shortness of breath, fever, chills, sick contacts. He has been admitted in the past and treated for viral gastroenteritis and diabetic gastroparesis. He is noted to have a very mildly elevated white blood cell count of 12.4, chronically elevated creatinine of 4.49, abdominal pelvic CT showing possible mild colitis. She has no noted fever. His blood pressures are quite elevated which is chronic for him to have hypertensive urgency. He was treated with hydralazine, nifedipine, metoprolol, 2 doses of labetalol in the ER with minimal control of his blood pressure Veto is well known to me. He has advanced CKD approaching end stage renal disease. He is currently being evaluated for both renal transplantation and also awaiting creation of a new AV fistula. During this admission renal function is close to his baseline. Review of Systems Constitutional: Reports as per HPI, Denies anorexia, Denies fatigue, Denies fever(s) and Denies headache(s) Eyes: Denies blurry vision Denies headache(s) Cardiovascular: Denies chest pain, Denies pedal edema and Denies dyspnea Respiratory: Denies cough, Denies hemoptysis and Denies dyspnea Gastrointestinal: Denies diarrhea, Reports nausea and Reports vomiting Genitourinary: Denies hematuria, Denies urinary frequency and Denies urinary hesitancy Denies confusion, Denies headache(s) and Denies focal weakness Psychiatric: Denies confusion Endocrine: Denies cold intolerance, Denies fatigue and Denies polyuria PMFSH Past Medical History Medical History (Updated 02/11/23 @ 09:42 by Onur Bejarano MD) CKD (chronic kidney disease) stage 4, GFR 15-29 ml/min Hypertensive nephrosclerosis Diabetic gastroparesis Pancreatitis Vitamin D deficiency Hypocalcemia Background diabetic retinopathy associated with type 2 diabetes mellitus Diabetes type 1, uncontrolled Hemangioma of liver Legally blind Acid reflux Sciatica Gastritis Polyneuropathy Essential hypertension Hyperlipidemia LDL goal <70 Family History Family History Father Diabetes mellitus Mother Diabetes mellitus Maternal Grandfather Diabetes mellitus Maternal Grandmother Diabetes mellitus Surgical History Surgical History Hx of endoscopy Hx of circumcision Hx of appendectomy Hx of eye surgery Social History Social History Household Members: Spouse Household Members Other:: and girlfriend Housing: Apartment Do you presently have visiting nurse or other home services: No Alcohol intake: never Comment: refusing fall risk interventions. Patient Tobacco Use Status: Former Tobacco user Smoked in Last 30 Days: No Second Hand Smoke Exposure: No Use of substances other than those prescribed or required for medical reasons: No Substance Use Type: Marijuana Advance Directives: Yes Advance Directives on File: Yes Advance Directives Date on File: 04/13/20 Nutrition Risks: No Nutritional Risk service: No Current occupational status: disabled Meds Allergies Allergy/AdvReac Type Severity Reaction Status Date / Time gluten Allergy Gastrointestinal Verified 02/06/23 20:20 Upset losartan Allergy Gastrointestinal Verified 02/06/23 20:20 Upset valsartan AdvReac Unknown GI problems Verified 02/06/23 20:20 Active Medications: Current Medications Acetaminophen (Acetaminophen 325 Mg Tablet) 650 mg PO Q6H PRN PRN Reason: Pain, Mild (Pain Scale 1-3) Atorvastatin Calcium (Atorvastatin Calcium 80 Mg Tablet) 80 mg PO DAILY [facility] Last Admin: 02/11/23 09:13 Dose: 80 mg Dextrose (Dextrose 50 % 25 Gm/50 Ml Syringe) 25 gm IVPUSH Q15M PRN; Protocol PRN Reason: per Hypoglycemia Standing Ord. Ezetimibe (Ezetimibe 10 Mg Tablet) 10 mg PO DAILY [facility] Last Admin: 02/11/23 09:13 Dose: 10 mg Famotidine (Famotidine/Pf 20 Mg/2 Ml Vial) 20 mg IVPUSH BID [facility] Last Admin: 02/11/23 09:14 Dose: 20 mg Furosemide (Furosemide 20 Mg Tablet) 20 mg PO DAILY [facility]; Protocol Last Admin: 02/11/23 09:13 Dose: 20 mg Gabapentin (Gabapentin 300 Mg Capsule) 300 mg PO BEDTIME [facility] Last Admin: 02/10/23 21:55 Dose: 300 mg Glucose (Glucose Gel 15 Gm Gel..Gram.) 15 gm PO Q15M PRN; Protocol PRN Reason: per Hypoglycemia Standing Ord. Heparin Sodium (Porcine) (Heparin Sodium,Porcine 5,000 Unit/Ml Vial) 5,000 unit SUBCUT Q12H [facility] Last Admin: 02/11/23 04:14 Dose: 5,000 unit Hydralazine HCl (Hydralazine Hcl 20 Mg/Ml Vial) 20 mg IVPUSH Q4H PRN; Protocol PRN Reason: SBP>190 Hydralazine HCl (Hydralazine Hcl 50 Mg Tablet) 100 mg PO TID [facility]; Protocol Last Admin: 02/10/23 21:55 Dose: 100 mg Lactated Ringer's (Lr) 1,000 mls @ 100 mls/hr IVCONT .Q10H [facility] Last Admin: 02/11/23 02:49 Dose: 100 mls/hr Piperacillin Sod/Tazobactam (Sod 2.25 gm/ Sodium Chloride) 50 mls @ 100 mls/hr IV Q6H [facility] Last Infusion: 02/11/23 05:07 Dose: Infused Insulin Human Lispro (Insulin Lispro 100 Unit/Ml 3 Ml Vial) 0 unit SUBCUT QIDACHS [facility]; Protocol Last Admin: 02/11/23 09:14 Dose: 4 unit Metoprolol Succinate (Metoprolol Succinate Er 100 Mg Tab.Er.24h) 100 mg PO DAILY [facility]; Protocol Last Admin: 02/11/23 09:13 Dose: 100 mg Metoprolol Succinate (Metoprolol Succinate Er 50 Mg Tab.Er.24h) 50 mg PO DAILY [facility]; Protocol Last Admin: 02/11/23 09:13 Dose: 50 mg Morphine Sulfate (Morphine Sulfate 2 Mg/Ml Cartridge) 1 mg IVPUSH Q4H PRN; Protocol PRN Reason: Pain, Moderate(Pain Scale 4-6) Last Admin: 02/10/23 23:48 Dose: 1 mg Nifedipine (Nifedipine Er 30 Mg Tab.Er.24) 30 mg PO DAILY [facility]; Protocol Omeprazole (Omeprazole 40 Mg Capsule.Dr) 40 mg PO DAILY@0630 [facility] Last Admin: 02/11/23 06:09 Dose: 40 mg Ondansetron HCl (Ondansetron Hcl 4 Mg/2 Ml Vial) 4 mg IVPUSH Q8H PRN PRN Reason: Nausea and Vomiting Last Admin: 02/10/23 23:48 Dose: 4 mg Simethicone (Simethicone 80 Mg Tab.Chew) 80 mg PO QIDWMHS PRN PRN Reason: Gas Last Admin: 02/10/23 19:08 Dose: 80 mg Sodium Chloride (0.9 % Sodium Chloride Flush 3 Ml Syringe) [facility] Last Admin: 02/11/23 09:18 Dose: 3 ml Home Medications Medication Instructions Recorded Confirmed Last Taken Type omeprazole 40 mg capsule,delayed 40 mg PO DAILY@0630 01/04/20 02/10/23 02/09/23 History release pen needle, diabetic 32 gauge x #50 ea 07/12/21 07/12/21 Unknown History (BD Ultra-Fine Shannan Pen Needle) metoprolol succinate 50 mg 50 mg PO DAILY 07/29/21 02/10/23 02/09/23 History tablet,extended release 24 hr insulin glargine 100 unit/mL (3 22 unit subcut BEDTIME PRN pump 03/08/22 02/10/23 03/07/22 History mL) subcutaneous pen (Lantus malfunction Solostar U-100 Insulin) gabapentin 300 mg capsule 300 mg PO BEDTIME 05/13/22 02/10/23 02/09/23 History hydralazine 100 mg tablet 100 mg PO TID 05/13/22 02/10/23 02/09/23 History cholecalciferol (vitamin D3) 50 50 mcg PO DAILY 10/16/22 02/10/23 02/09/23 History mcg (2,000 unit) capsule (Vitamin D3) furosemide 20 mg tablet 20 mg PO DAILY 10/16/22 02/10/23 02/09/23 History metoprolol succinate 100 mg 100 mg PO DAILY 02/10/23 02/10/23 02/09/23 History tablet,extended release 24 hr nifedipine 30 mg tablet,extended 30 mg PO QAM 02/10/23 02/10/23 02/09/23 History release 24 hr Physical Exam Vital Signs: Last Vital Signs Temp 98.5 F 02/11/23 08:23 Pulse 88 02/11/23 08:23 Resp 18 02/11/23 08:23 BP 154/94 H 02/11/23 08:23 Pulse Ox 94 02/11/23 08:23 O2 Del Method Room Air 02/11/23 08:23 BMI result Body Mass Index 25.8 Const General: No confusion Nutritional Appearance: well nourished Orientation/consciousness: No confusion HEENT Head: No normal to inspection Mouth: moist mucous membranes Eyes Other: Legally blind Neck Neck: Yes supple and Yes no JVD Resp Auscultation: clear to auscultation bilaterally, no rales and rub present Cardio Jugular venous distension: no JVD Palpation: no palpable S3 and no palpable S4 Heart sounds: no rubs GI Palpation (GI): Soft to palpation and nontender Percussion: No Fluid wave present General: Yes no CVA tenderness Back/Spine/Pelvis Back: no CVA tenderness Skin General skin exam: no rashes or lesions noted Neuro General: No confusion Extrem General: Yes no pedal edema and No clubbing Results Lab Results 02/11/23 05:11 02/11/23 05:11 Lab results: Chemistry 02/10/23 02/11/23 07:45 05:11 Sodium 141 140 Potassium 3.9 4.4 Carbon Dioxide 23 24 BUN 36 H 39 H Creatinine 4.49 H* 4.07 H* Calcium 9.3 8.7 D Hematology 02/10/23 02/11/23 07:45 05:11 WBC 12.4 H 10.0 Hgb 13.8 L 12.4 L Plt Count 247 222 Urinalysis 02/10/23 10:13 Urine Color Yellow Urine Appearance Clear Urine pH 6.5 Ur Specific [place] 1.015 Urine Protein >=1000 (4+) H Urine Glucose (UA) 100 H Urine Ketones 15 Urine Blood Negative Urine Nitrite Negative Ur Leukocyte Esterase Negative Urine RBC 0-2 Urine WBC 0-5 Ur Squamous Epith Cells 0-2 Hyaline Casts 0-2 Assessment and Plan (1) Hypertensive urgency: Status: Acute (2) CKD (chronic kidney disease) stage 4, GFR 15-29 ml/min: Status: Acute Plan Young man with longstanding type 1 diabetes mellitus with advanced CKD admitted with accelerated hypertension and nausea and vomiting primarily due to use of marijuana. At present renal function is close to baseline. No urgent indication for dialysis. He is being evaluated for renal transplantation and waiting for the creation of an AV fistula. This can be done as an outpatient. As for the hypertension I agree with current medication. Would prefer not using intravenous antihypertensive agents at this time. Keep him on low-salt diet. He should avoid marijuana since this could be the precipitating cause for the nausea and vomiting. She will follow along with the team. Procedures Date of Service Date of Service: 02/11/23
[2023-02-11] MEDS: NIFEdipine ER 30 MG TAB.ER.24 PO (09:51)
[2023-02-11] MEDS: hydrALAZINE HCl 50 MG TABLET 100 MG PO ×2 (09:52→14:41)
[2023-02-11 12:36] VITALS: BP 173/94; PULSE 93; RESP 18; TEMP 36.7; O2SAT 94
--- NOTE | 2023-02-11 13:20 | MHC.CM.PN ---
CM MET WITH PT WITH [employer] PT REPORTS HE LIVES WITH HIS S/O WHO IS ALSO HIS COMPENSATED CAREGIVER HE REPORTS HE HAS DAILY [employer] PT HAS DM SUPPLIES, HE ALSO HAS A CANE HE DOES NOT USE HE HAS A HCP ON FILE PCP: [facility] OBSERVATION NOTICE DELIVERED DCP: HOME RESUME [employer] S/O TO TRANSPORT
--- NOTE | 2023-02-11 14:11 | P.DS_ITS ---
DS: Providers Provider Date of Service: 02/11/23 Date of admission: 02/10/23 15:38 Primary care physician: Hong Rodríguez MD Consults: 02/10/23 15:41 Consult to Gastroenterology Routine Consulting Provider: Noe Chandra Reason for consultation: Intractable nausea and vomiting, abdominal pain Consult to Nephrology Routine Consulting Provider: [facility] Reason for consultation: CKD 5 DS: Diagnosis Discharge Diagnosis (1) Hypertensive urgency: Status: Acute (2) CKD (chronic kidney disease) stage 4, GFR 15-29 ml/min: Status: Acute DS: Summary Hospital Course Hospital Course: History and physical as per admitting provider. 29-year-old man with a history of diabetes, hypertension, legal blindness, nephrosclerosis presented to the ER with complaints of intractable nausea, vomiting and diffuse abdominal pain that started yesterday. He reports that he smokes marijuana on a regular basis but no other drugs, he does not drink any alcohol. He denied any recent travel, improperly cooked foods, chest pain, shortness of breath, fever, chills, sick contacts. He has been admitted in the past and treated for viral gastroenteritis and diabetic gastroparesis. He is noted to have a very mildly elevated white blood cell count of 12.4, chronically elevated creatinine of 4.49, abdominal pelvic CT showing possible mild colitis. She has no noted fever. His blood pressures are quite elevated which is chronic for him to have hypertensive urgency. He was treated with hydralazine, nifedipine, metoprolol, 2 doses of labetalol in the ER with minimal control of his blood pressure. At this point he willplace on observation for further management and treatment of intractable nausea and vomiting and hypertensive urgency. 29-year-old man with a history of chronic intractable nausea and vomiting and abdominal pain, diabetic gastroparesis and marijuana use presenting for the same. Abdominal CT was negative for any acute abnormality. Seen evaluated by Gastroenterology with no further recommendations at this time. He was treated with IV fluids, antiemetics and IV pain medication with relief in symptoms. He reported constipation and was treated with fleets enema. He has a history of hypertensive urgency which is likely related to his end-stage renal disease, treated with his metoprolol, nifedipine, Lasix, hydralazine. Seen evaluated by Nephrology, plan is for dialysis as subsequently but not needed at this time. Time Attestation Discharge coordination time: Greater than 30 minutes Quality: Safe Use of Opioids Does Pt have an Active Cancer Diagnosis on the Problem List?: No Quality: Stroke Does the patient have a stroke diagnosis?: No Physical Exam Vital Signs: Vital Signs: Last Vital Signs Temp 98.1 F 02/11/23 12:36 Pulse 93 02/11/23 12:36 Resp 18 02/11/23 12:36 BP 173/94 H 02/11/23 12:36 Pulse Ox 94 02/11/23 12:36 O2 Del Method Room Air 02/11/23 12:36 BMI result Body Mass Index 25.8 Appearing in no acute distress, blind head is normocephalic atraumatic eyes pupils are PERRLA sclera is anicteric mouth throat mucous membranes are intact and moist neck is supple no lymphadenopathy, no JVD noted lung sounds are clear to auscultation heart regular rate rhythm, clear S1, S2 positive bowel sounds, abdomen is soft, nontender neuro patient is alert x3, no focal deficits DS: Data Data Completed and Pending Completed studies during hospitalization [Text1]: Procedures Insertion of Endotracheal Airway into Trachea, Via Natural or Artificial Opening Endoscopic (07/29/21) Insertion of Infusion Device into Superior Vena Cava, Percutaneous Approach (07/29/21) Introduction of Vasopressor into Peripheral Vein, Percutaneous Approach (07/29/21) Respiratory Ventilation, Greater than 96 Consecutive Hours (07/29/21) Ultrasonography of Superior Vena Cava, Guidance (07/29/21) Labs on day of discharge: Laboratory Results - last 24 hr 02/10/23 02/10/23 02/10/23 07:45 17:59 21:49 WBC RBC Hgb Hct MCV MCH MCHC RDW Plt Count MPV Immature Gran % (Auto) Neut % (Auto) Lymph % (Auto) [place] % (Auto) Eos % (Auto) Baso % (Auto) Lymph # (Auto) [place] # (Auto) Eos # (Auto) Baso # (Auto) Abs Immat Gran (auto) Absolute Neuts (auto) Absolute Nucleated RBC Nucleated RBC % (auto) Sodium Potassium Chloride Carbon Dioxide Anion Gap BUN Creatinine Estim Creat Clear Calc Estimated GFR POC Glucose 194 H 195 H Random Glucose Calcium Total Creatine Kinase 170 02/11/23 02/11/23 05:11 08:21 WBC 10.0 RBC 4.14 L Hgb 12.4 L Hct 36.4 L MCV 87.9 MCH 30.0 MCHC 34.1 RDW 12.1 Plt Count 222 MPV 10.0 Immature Gran % (Auto) 0.2 Neut % (Auto) 68.4 Lymph % (Auto) 20.6 [place] % (Auto) 9.9 Eos % (Auto) 0.5 Baso % (Auto) 0.4 Lymph # (Auto) 2.1 [place] # (Auto) 1.0 Eos # (Auto) 0.1 Baso # (Auto) 0.0 Abs Immat Gran (auto) 0.02 Absolute Neuts (auto) 6.8 Absolute Nucleated RBC 0.000 Nucleated RBC % (auto) 0.0 Sodium 140 Potassium 4.4 Chloride 105 Carbon Dioxide 24 Anion Gap 15 BUN 39 H Creatinine 4.07 H* Estim Creat Clear Calc 23.8 Estimated GFR 17 POC Glucose 201 H Random Glucose 198 H Calcium 8.7 D Total Creatine Kinase Discharge Plan Discharge Anticipated Discharge Date/Time: 02/11/23 14:06 Patient Disposition: Home, Self-Care Discharge Diagnosis: Intractable nausea and vomiting Abdominal pain Referrals: Name,MD Hong [Primary Care Provider] - 1 Week Discharge Medications: Continued atorvastatin 80 mg tablet 80 mg PO DAILY Qty: 30 6RF ezetimibe [Zetia] 10 mg tablet 10 mg PO DAILY 90 Days Qty: 90 1RF (DME) Omnipod 5 G6 Intro Kit (Gen 5) Cartridge See Rx Instructions .Route Qty: 1 4RF Rx Instructions: As directed (DME) Omnipod 5 G6 Intro Kit (Gen 5) Cartridge See Rx Instructions .Route Qty: 1 4RF Rx Instructions: As directed insulin aspart U-100 100 unit/mL solution See Rx Instructions subcut TID Qty: 20 5RF Rx Instructions: inject via insulin pump subcutaneously 3 times a day; do NOT exceed 70 units daily metoprolol succinate 50 mg tablet extended release 24 hr 50 mg PO DAILY Rx Instructions: take with the 100mg insulin glargine [Lantus Solostar U-100 Insulin] 100 unit/mL (3 mL) insulin p en 22 unit subcut BEDTIME PRN (Reason: pump malfunction) furosemide 20 mg tablet 20 mg PO DAILY cholecalciferol (vitamin D3) [Vitamin D3] 50 mcg (2,000 unit) capsule 50 mcg PO DAILY metoprolol succinate 100 mg tablet extended release 24 hr 100 mg PO DAILY Rx Instructions: take with the 50mg nifedipine 30 mg tablet extended release 24hr 30 mg PO QAM omeprazole 40 mg capsule,delayed release(DR/EC) 40 mg PO DAILY@0630 (DME) pen needle, diabetic [BD Ultra-Fine Shannan Pen Needle] 32 gauge x 5/32 needle See Rx Instructions .ROUTE QID Qty: 50 Rx Instructions: As directed gabapentin 300 mg capsule 300 mg PO BEDTIME hydralazine 100 mg tablet 100 mg PO TID Diet: Low salt diet Activity on Discharge: As tolerated Stand Alone Forms: Patient Portal Discharge page Care Plan Goals: Stop smoking marijuana Continue on a low-salt diet Health Concerns: Intractable nausea and vomiting Abdominal pain Plan of Treatment: Follow-up with primary care provider as needed Take all medications as prescribed Assessment: See discharge summary
[2023-02-11 14:28] VITALS: BP 174/84; PULSE 85; RESP 18; TEMP 36.4; O2SAT 95
--- NOTE | 2023-02-11 15:23 | MHC.CLN ---
NUTRITION LOW SODIUM DIET PER NEPHROLOGY. DIET=DIABETIC 1800 KCALS, 2 GRAM SODIUM.
[2023-02-11] MEDS: Mineral OiL enema 133 ML ENEMA PR (15:26)
== END 2023-02-11 17:14 | disposition home or self-care (01) ==
LOC: HO.ED 15:25 → HO.EDOVER 16:16 → HO.S3 02-11 12:26
PROVIDERS: Physician Assistant; Admitting Provider Nurse Practitioner Acute Care; Emergency Provider Emergency Medicine; PCP Internal Medicine Geriatric Medicine; Visit Provider Nurse Practitioner Acute Care
DX: I16.0 Hypertensive urgency (principal); R10.32 Left lower quadrant pain; R10.13 Epigastric pain; R11.2 Nausea with vomiting, unspecified; E10.22 Type 1 diabetes mellitus with diabetic chronic kidney disease; F12.90 Cannabis use, unspecified, uncomplicated; I12.9 Hypertensive chronic kidney disease with stage 1 through stage 4 chronic kidney disease, or unspecified chronic kidney disease; N18.4 Chronic kidney disease, stage 4 (severe); H54.8 Legal blindness, as defined in USA; Z79.899 Other long term (current) drug therapy; Z20.822 Contact with and (suspected) exposure to COVID-19; Z20.828 Contact with and (suspected) exposure to other viral communicable diseases
CPT/HCPCS: 0241U; 36415; 74176; 80048; 80053; 80307; 81001; 82010; 82550; 82803; 82947; 83735; 85025; 93005; 96361; 96365; 96366; 96372; 96375; 96376; 99221; 99285; J1170; J1644; J1920; J2270; J2405; J2543; J7120

== ENCOUNTER → 2023-02-10 14:59 | Outpatient (BNV) | payer MEDICAID, SELFPAY | PROVIDERS: Admitting Provider Nurse Practitioner Acute Care; Emergency Provider Emergency Medicine; PCP Internal Medicine Geriatric Medicine; Visit Provider Internal Medicine Cardiovascular Disease | DX: R00.0 Tachycardia, unspecified (principal); R10.9 Unspecified abdominal pain | CPT/HCPCS: 93010 ==

== ENCOUNTER → 2023-02-10 15:38 | Outpatient (BNV) | payer MEDICAID, SELFPAY | PROVIDERS: Admitting Provider Nurse Practitioner Acute Care; Emergency Provider Emergency Medicine; PCP Internal Medicine Geriatric Medicine; Visit Provider Internal Medicine Hypertension Specialist | DX: I16.0 Hypertensive urgency (principal); E10.22 Type 1 diabetes mellitus with diabetic chronic kidney disease; N18.4 Chronic kidney disease, stage 4 (severe); R11.2 Nausea with vomiting, unspecified | CPT/HCPCS: 99223 ==

== ENCOUNTER → 2023-02-10 15:38 | Outpatient (BNV) | payer MEDICAID, SELFPAY | PROVIDERS: Admitting Provider Nurse Practitioner Acute Care; Emergency Provider Emergency Medicine; PCP Internal Medicine Geriatric Medicine; Visit Provider Internal Medicine Gastroenterology | DX: R10.13 Epigastric pain (principal); I16.0 Hypertensive urgency | CPT/HCPCS: 99222 ==

== ENCOUNTER → 2023-02-10 15:38 | Outpatient (BNV) | payer MEDICAID, SELFPAY | PROVIDERS: Admitting Provider Nurse Practitioner Acute Care; Emergency Provider Emergency Medicine; PCP Internal Medicine Geriatric Medicine; Visit Provider Nurse Practitioner Acute Care | DX: I16.0 Hypertensive urgency (principal); R10.9 Unspecified abdominal pain; N18.4 Chronic kidney disease, stage 4 (severe) | CPT/HCPCS: 99222; 99239 ==

== ENCOUNTER 2023-03-09 15:13 | Outpatient (AMB) | payer MEDICAID, SELFPAY ==
[2023-03-09 15:20] VITALS: BP 120/82; PULSE 76; O2SAT 98; BMI 25.7
--- NOTE | 2023-03-09 15:20 | HO.NEPHOV_ITS ---
HPI HPI Comments History of Present Illness Details 37-year-old man with type 1 diabetes clayton litus and advanced CKD. He has underlying diabetic nephropathy. He was accompanied by his caregiver. Interpretation service was used. Today he has no new complaints. He is compliant with his medication. Blood sugar seems to be well controlled at home. [facility] Medical History (Updated 03/09/23 @ 15:32 by Onur Bejarano MD) Hypertensive urgency CKD (chronic kidney disease) stage 4, GFR 15-29 ml/min Hypertensive nephrosclerosis Diabetic gastroparesis Pancreatitis Vitamin D deficiency Hypocalcemia Background diabetic retinopathy associated with type 2 diabetes mellitus Diabetes type 1, uncontrolled Hemangioma of liver Legally blind Acid reflux Sciatica Gastritis Polyneuropathy Essential hypertension Hyperlipidemia LDL goal <70 Surgical History Hx of endoscopy Hx of circumcision Hx of appendectomy Hx of eye surgery Family History Father Diabetes mellitus Mother Diabetes mellitus Maternal Grandfather Diabetes mellitus Maternal Grandmother Diabetes mellitus Social History Household Members: Spouse Household Members Other:: and girlfriend Housing: Apartment Do you presently have visiting nurse or other home services: No Alcohol intake: never Comment: refusing fall risk interventions. Patient Tobacco Use Status: Former Tobacco user Second Hand Smoke Exposure: No Substance Use Type: Marijuana Advance Directives Date on File: 04/13/20 service: No Current occupational status: disabled Vital Signs 03/09/23 15:20 Height 5 ft 8 in Weight 169 lb 4 oz BMI 25.7 BP 120/82 Blood Pressure Location Lt brachial Pulse 76 Pulse Source Pulse Oximeter Pulse Oximetry (%) 98 Oxygen Delivery Method Room Air Physical Exam Vital Signs: Last Vital Signs Pulse 76 03/09/23 15:20 BP 120/82 03/09/23 15:20 Pulse Ox 98 03/09/23 15:20 Oxygen Delivery Method Room Air 03/09/23 15:20 BMI result Body Mass Index 25.7 Const Other: Legally blind General: comfortable Nutritional Appearance: well nourished Orientation/consciousness: patient oriented x3 HEENT Head: No normal to inspection Mouth: moist mucous membranes Neck Neck: Yes supple and Yes no JVD Resp Auscultation: clear to auscultation bilaterally, no rales and rub present Cardio Jugular venous distension: no JVD Palpation: no palpable S3 and no palpable S4 Heart sounds: no rubs GI Palpation (GI): Soft to palpation and nontender Percussion: No Fluid wave present General: Yes no CVA tenderness Back/Spine/Pelvis Back: no CVA tenderness Skin General skin exam: no rashes or lesions noted Neuro General: patient oriented x3 Extrem General: Yes no pedal edema and No clubbing Assessment & Plan Assessment & Plan (1) Diabetes type 1, uncontrolled: Code(s): E10.65 - Type 1 diabetes mellitus with hyperglycemia (2) Hypertensive emergency: Code(s): I16.1 - Hypertensive emergency (3) 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: Code(s): E10.22 - Type 1 diabetes mellitus with diabetic chronic kidney disease; N18.5 - Chronic kidney disease, stage 5 Plan 37-year-old man with stage 5 CKD due to underlying diabetic nephropathy. Renal function stable at baseline. No signs or symptoms of uremia. Fluid status is acceptable. Goal is to slow the portion disease. Current continue with current regimen. Maintain blood pressure less than 130/80 and A1c less than 7%. Continue overt nephrotoxic agents. He is being evaluated by [facility] transplant service for preemptive transplantation Resistant hypertension blood pressure well controlled I have encouraged him to stay on low-sodium diet. No changes were made. He is mild anemia no indication for Epogen yet. Orders: Orders Complete Blood Count no Diff 2 Months E10.22 - Type 1 diabetes mellitus with diabetic chronic kidney disease, N18.5 - Chronic kidney disease, stage 5 Comprehensive Met. Panel 2 Months E10.22 - Type 1 diabetes mellitus with diabetic chronic kidney disease, N18.5 - Chronic kidney disease, stage 5 Coding Level of Care Code Est Pt Level 4 (28661) Diagnoses Uncontrolled type 1 diabetes mellitus with hyperglycemia E10.65 Hypertensive emergency I16.1 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 E10.22; N18.5 Results Reviewed Nephrology Results: Hgb 12.4 g/dl (14.0-18.0) L 02/11/23 WBC 10.0 X10*3/uL (4.8-10.8) 02/11/23 Plt Count 222 X10*3/uL (160-400) 02/11/23 Sodium 140 mmol/L (135-145) 02/11/23 Potassium 4.4 mmol/L (3.3-5.1) 02/11/23 Chloride 105 mmol/L (96-108) 02/11/23 Carbon Dioxide 24 mmol/L (22-29) 02/11/23 BUN 39 mg/dL (9-16) H 02/11/23 Creatinine 4.07 mg/dL (0.5-1.4) H* 02/11/23 Calcium 8.7 mg/dL (8.4-10.2) 02/11/23 Urine Protein >=1000 (4+) mg/dL (Neg-Trace) H 3
== END 2023-03-09 15:34 | disposition home or self-care (01) ==
PROVIDERS: PCP Internal Medicine Geriatric Medicine; Referring Provider Internal Medicine Geriatric Medicine; Visit Provider Internal Medicine Hypertension Specialist
DX: E10.65 Type 1 diabetes mellitus with hyperglycemia (principal); I16.1 Hypertensive emergency; E10.22 Type 1 diabetes mellitus with diabetic chronic kidney disease; N18.5 Chronic kidney disease, stage 5
CPT/HCPCS: 99214

== ENCOUNTER → 2023-03-09 15:13 | Outpatient (BNVA) | payer MEDICAID, SELFPAY | PROVIDERS: PCP Internal Medicine Geriatric Medicine; Visit Provider Internal Medicine Hypertension Specialist | DX: E10.65 Type 1 diabetes mellitus with hyperglycemia (principal); E10.22 Type 1 diabetes mellitus with diabetic chronic kidney disease; N18.5 Chronic kidney disease, stage 5; I16.1 Hypertensive emergency | CPT/HCPCS: 99212 ==

== ENCOUNTER 2023-04-29 14:52 | Outpatient (AMB) | payer MEDICAID, SELFPAY ==
[2023-04-29 15:01] VITALS: BP 146/90; PULSE 90; BMI 26.2
--- NOTE | 2023-04-29 15:01 | MHC.OFFVIS ---
Intake Vital Signs 04/29/23 15:01 Height 5 ft 8 in Weight 172 lb 2.896 oz BMI 26.2 BP 146/90 H Blood Pressure Location Lt brachial Position Sitting Pulse 90 Pulse Source Pulse Oximeter Intake Visit Reasons: dm-confirmed Intake Note: Patient present today to follow up on Type 1 Diabetes Mellitus. Patient receives DME supplies through: [employer] Last Diabetic Eye exam: Last Podiatry Visit: Doesn't have one Random Glucose: 152 mg/dl HgA1C: 6.5% Imagery Intelligence Required: Yes Imagery Intelligence Language: Brand Designer Name: Esther medical staff Information Interpreted: non-clinical & clinical Accompanied by: Spouse Allergies gluten Allergy (Verified 03/09/23 15:26) Gastrointestinal Upset losartan Allergy (Verified 03/09/23 15:26) Gastrointestinal Upset valsartan Adverse Reaction (Unknown, Verified 03/09/23 15:26) GI problems Medication List - Last Reconciled 04/29/23 by Bob Grant MD atorvastatin 80 mg PO DAILY cholecalciferol (vitamin D3) (Vitamin D3) 50 mcg PO DAILY ezetimibe (Zetia) 10 mg PO DAILY 90 days furosemide 20 mg PO DAILY PRN gabapentin 300 mg PO BEDTIME hydralazine 100 mg PO TID insulin aspart U-100 inject via insulin pump subcutaneously 3 times a day; do NOT exceed 70 units daily insulin glargine (Lantus Solostar U-100 Insulin) 22 units subcut BEDTIME PRN insulin pump cart,auto,BT-cntr (Omnipod 5 G6 Intro Kit (Gen 5) subcutaneous cartridge with controller) As directed insulin pump cart,automated,BT (Omnipod 5 G6 Pods (Gen 5) subcutaneous cartridge) CHANGE POD EVERY 72 HOURS DIRECTED metoprolol succinate ER 50 mg PO DAILY metoprolol succinate ER 100 mg PO DAILY nifedipine ER 30 mg PO QAM nortriptyline 50 mg PO BEDTIME omeprazole 40 mg PO DAILY@0630 pen needle, diabetic (BD Ultra-Fine Shannan Pen Needle) As directed HPI HPI Comments History of Present Illness Details Patient is a 37-year-old male with DM type 1 diagnosed at the age of 7 referred by who presents for management of diabetes. 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 Dyslipidemia, hypertension, gastritis, sciatic pain, history of pancreatitis Micro and macrovascular complications: retinopathy, nephropathy, neuropathy, Pump settings - we are unable to download his pump settings due to him being unable access is phone. Basal rate(s) (units/hour) : ?12 AM to 7 AM 1.25 units/hr? 7 AM to 12 AM 1.0 units /hr Bolus setting Insulin Carbohydrate Ratio (s) 12 AM to 12 AM? 1 unit:11gm? Correction Factor / Sensitivity Factor 12 AM to 12 AM? 1 unit / 60 mg/dL 12 AM to 7 AM??1 unit / 70 mg/dL 7 AM to 12 AM? 1 unit / 60 mg/dL Active Insulin Time:? 3 hours Target(s): 12 AM to 12 AM 120 mg/dL U Continuous glucose monitoring: In the past 2 weeks average blood glucose 149 GMI of 6.9 . Sensor active 100%. Blood glucose very low less than <1 %. Blood glucose low less than 70, 4%. Blood glucose in target range of 70-180, 67%. Blood glucose high over 180,22 %. Blood glucose very high over 250 6 %. 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 education: currently Dental exam: goes every 6 months Ophthalmology evaluation: blind in both eyes Laboratory Tests 01/14/21 03/24/21 13:38 17:20 Creatinine 3.34 H Estimated GFR 21 Hgb A1c (Clinic) 9.1 H 09/26/19 10/04/19 19:35 09:06 Creatinine 1.44 H Est GFR (Non-Af Am er) 56 Hgb A1c Fingerstic k 8.2 [facility] Medical History (Updated 03/09/23 @ 15:32 by Onur Bejarano MD) Hypertensive urgency CKD (chronic kidney disease) stage 4, GFR 15-29 ml/min Hypertensive nephrosclerosis Diabetic gastroparesis Pancreatitis Vitamin D deficiency Hypocalcemia Background diabetic retinopathy associated with type 2 diabetes mellitus Diabetes type 1, uncontrolled Hemangioma of liver Legally blind Acid reflux Sciatica Gastritis Polyneuropathy Essential hypertension Hyperlipidemia LDL goal <70 Surgical History Hx of endoscopy Hx of circumcision Hx of appendectomy Hx of eye surgery Family History Father Diabetes mellitus Mother Diabetes mellitus Maternal Grandfather Diabetes mellitus Maternal Grandmother Diabetes mellitus Social History Household Members: Spouse Household Members Other:: and girlfriend Housing: Apartment Do you presently have visiting nurse or other home services: No Alcohol intake: never Comment: refusing fall risk interventions. Patient Tobacco Use Status: Former Tobacco user Second Hand Smoke Exposure: No Substance Use Type: Marijuana Advance Directives Date on File: 04/13/20 service: No Current occupational status: disabled Physical Exam Vital Signs: Last Vital Signs Pulse 90 04/29/23 15:01 BP 146/90 H 04/29/23 15:01 BMI result Body Mass Index 26.2 Absence of Cushingoid features. Absence of acromegalic features. Neck exam reveals nl size thyroid about 15 gms. No thyroid nodules palpable. No carotid bruits present. Lungs CTA. Heart S1 S2, Reg R/R. No M/R/ G. Skin exam reveals absence of vitiligo or acanthosis nigricans. Abdominal exam reveals Soft NT/ND with NA BS. No organomegaly present. Extrem Other: Visual exam of foot performed. No ulcerations or open lesions. No onchomycosis, no callouses.Pulses 2 + distally. Sensation intact to monofilament exam. Vibratory sensation sensed 10 seconds in right, 10 seconds in left with 128 Hz tuning fork Results AMB Hemoglobin A1c AMB Hemoglobin A1c 6.5 % Last Edit by GIL Kwok on 04/29/23 15:25 Results Reviewed Results Reviewed: Laboratory Last Values Glucose (Clinic) 152 mg/dL (60-115) H 04/29/23 15:09 Hgb A1c (Clinic) 6.5 % (4.0-6.0) H 04/29/23 15:25 Assessment & Plan Assessment & Plan (1) Diabetes type 1, uncontrolled: Code(s): E10.65 - Type 1 diabetes mellitus with hyperglycemia Plan: This is a 37-year-old male with history of type 1 diabetes was being treated with an Omnipod5 pump with Dexcom with excellent improved glycemic control and known microvascular complications namely .chronic kidney disease stage 2 secondary to diabetic nephropathy, diabetic polyneuropathy, diabetic retinopathy with subsequent blindness Will have patient follow up with assistant health educator in the next week to access pump setting and make proper adjustments . Consideration could be given to loosening the insulin: Carbohydrate when the patient meets with the assistant health educator r Coding Level of Care Code Est Pt Level 4 (48107) Diagnoses Uncontrolled type 1 diabetes mellitus with hyperglycemia E10.65
[2023-04-29 15:13] LABS: Glucose, Whole Blood 152 mg/dL (60-115)
== END 2023-04-29 15:26 | disposition home or self-care (01) ==
PROVIDERS: PCP Internal Medicine Geriatric Medicine; Visit Provider Internal Medicine Endocrinology, Diabetes & Metabolism
DX: Z13.9 Encounter for screening, unspecified (principal); E10.65 Type 1 diabetes mellitus with hyperglycemia
CPT/HCPCS: 99214

== ENCOUNTER → 2023-04-29 14:52 | Outpatient (BNVA) | payer MEDICAID, SELFPAY | PROVIDERS: PCP Internal Medicine Geriatric Medicine; Visit Provider Internal Medicine Endocrinology, Diabetes & Metabolism | DX: Z46.81 Encounter for fitting and adjustment of insulin pump (principal); E10.65 Type 1 diabetes mellitus with hyperglycemia; Z79.4 Long term (current) use of insulin | CPT/HCPCS: 82947; 83036; 99212 ==

== ENCOUNTER 2023-05-04 15:00 | Outpatient (REF) | payer MEDICAID, SELFPAY ==
[2023-05-04 16:04] LABS: Basophils Absolute Auto 0.1 X10*3/uL (0.0-0.2); Basophils Percent Auto 0.6 % (0-2); Eosinophils Absolute Auto 0.2 X10*3/uL (0.0-0.4); Hematocrit 38.1 % (42.0-52.0); Imm Gran Abs Auto 0.02 X10*3/uL (0.00-0.03); Imm Gran Pct Auto 0.3 % (0.0-0.4); Lymphocytes Absolute Auto 2.2 X10*3/uL (1.2-4.9); Lymphocytes Percent Auto 27.4 % (20-40); MANUAL DIFF FLAG NO; Mean Corpuscular HGB Conc 34.1 g/dl (31.0-36.0); Mean Corpuscular Hemoglobin 29.7 pg (27.0-33.0); Mean Corpuscular Volume 87.2 fL (80.0-98.0); Mean Platelet Volume 10.1 fL (9.4-12.4); Monocytes Absolute Auto 0.6 X10*3/uL (0.1-1.2); Monocytes Percent Auto 7.9 % (2-11); Neutrophils Absolute Auto 4.9 x10*3/uL (2.0-8.3); Neutrophils Percent Auto 61.8 % (45-73); Platelet Count 219 X10*3/uL (160-400); Red Blood Count 4.37 X10*6/uL (4.60-5.80); Red Cell Distribution Width 11.9 % (11.0-16.0); White Blood Count 7.9 X10*3/uL (4.8-10.8)
[2023-05-04 16:47] LABS: Parathyroid Hormone Intact 428.3 pg/mL (8.7-77.1)
[2023-05-04 16:54] LABS: Alanine Aminotransferase 20 U/L (0-40); Albumin Level 3.9 g/dL (3.5-5.0); Alkaline Phosphatase 82 U/L (39-117); Anion Gap 12 (12-20); Aspartate Amino Transferase 14 U/L (5-37); Bilirubin Total 0.4 mg/dL (0.0-1.0); Blood Urea Nitrogen 40 mg/dL (9-16); Calcium 8.8 mg/dL (8.4-10.2); Carbon Dioxide 22 mmol/L (22-29); Chloride 110 mmol/L (96-108); Glucose Random 215 mg/dL (60-115); Phosphorus 4.6 mg/dL (2.7-4.5); Potassium 4.7 mmol/L (3.3-5.1); Sodium 139 mmol/L (135-145); Total Protein 6.8 g/dL (6.5-8.0)
[2023-05-04 17:02] LABS: Estimated Glomerular Filt Rate 14
== END 2023-05-04 15:01 | disposition home or self-care (01) ==
LOC: HO.LAB 15:00
PROVIDERS: PCP Internal Medicine Geriatric Medicine; Visit Provider Internal Medicine Hypertension Specialist
DX: I12.0 Hypertensive chronic kidney disease with stage 5 chronic kidney disease or end stage renal disease (principal); E10.22 Type 1 diabetes mellitus with diabetic chronic kidney disease; N18.5 Chronic kidney disease, stage 5; E10.65 Type 1 diabetes mellitus with hyperglycemia
CPT/HCPCS: 36415; 80053; 83970; 84100; 85025; 85027; 99212

== ENCOUNTER 2023-05-04 15:00 | Outpatient (AMB) | payer MEDICAID, SELFPAY ==
[2023-05-04 15:01] VITALS: BP 106/60; PULSE 81; O2SAT 97; BMI 25.8
--- NOTE | 2023-05-04 15:01 | HO.NEPHOV ---
HPI HPI Comments History of Present Illness Details 37-year-old man with type 1 diabetes mellitus and advanced CKD. He has underlying diabetic nephropathy. He was accompanied by his caregiver. Interpretation service was used. Today he has no new complaints. He is compliant with his medication. Blood sugar seems to be well controlled at home. [facility] Medical History (Updated 03/09/23 @ 15:32 by Onur Bejarano MD) Hypertensive urgency CKD (chronic kidney disease) stage 4, GFR 15-29 ml/min Hypertensive nephrosclerosis Diabetic gastroparesis Pancreatitis Vitamin D deficiency Hypocalcemia Background diabetic retinopathy associated with type 2 diabetes mellitus Diabetes type 1, uncontrolled Hemangioma of liver Legally blind Acid reflux Sciatica Gastritis Polyneuropathy Essential hypertension Hyperlipidemia LDL goal <70 Surgical History Hx of endoscopy Hx of circumcision Hx of appendectomy Hx of eye surgery Family History Father Diabetes mellitus Mother Diabetes mellitus Maternal Grandfather Diabetes mellitus Maternal Grandmother Diabetes mellitus Social History Household Members: Spouse Household Members Other:: and girlfriend Housing: Apartment Do you presently have visiting nurse or other home services: No Alcohol intake: never Comment: refusing fall risk interventions. Patient Tobacco Use Status: Former Tobacco user Second Hand Smoke Exposure: No Substance Use Type: Marijuana Advance Directives Date on File: 04/13/20 service: No Current occupational status: disabled Vital Signs 05/04/23 15:01 Height 5 ft 8 in Weight 170 lb BMI 25.8 BP 106/60 Blood Pressure Location Rt brachial Position Sitting Pulse 81 Pulse Source Pulse Oximeter Pulse Oximetry (%) 97 Oxygen Delivery Method Room Air Physical Exam Vital Signs: Last Vital Signs Pulse 81 05/04/23 15:01 BP 106/60 05/04/23 15:01 Pulse Ox 97 05/04/23 15:01 Oxygen Delivery Method Room Air 05/04/23 15:01 BMI result Body Mass Index 25.8 Assessment & Plan Assessment & Plan (1) Diabetes type 1, uncontrolled: Code(s): E10.65 - Type 1 diabetes mellitus with hyperglycemia (2) Hypertensive emergency: Code(s): I16.1 - Hypertensive emergency (3) 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: Code(s): E10.22 - Type 1 diabetes mellitus with diabetic chronic kidney disease; N18.5 - Chronic kidney disease, stage 5 Plan 37-year-old man with stage 5 CKD due to underlying diabetic nephropathy. Renal function stable at baseline. No signs or symptoms of uremia. Fluid status is acceptable. Goal is to slow the portion disease. Current continue with current regimen. Maintain blood pressure less than 130/80 and A1c less than 7%. Continue overt nephrotoxic agents. He is being evaluated by [facility] transplant service for preemptive transplantation Resistant hypertension blood pressure well controlled I have encouraged him to stay on low-sodium diet. No changes were made. He is mild anemia no indication for Epogen yet. Orders: Orders Basic Metabolic Panel Today E10.22 - Type 1 diabetes mellitus with diabetic chronic kidney disease, N18.5 - Chronic kidney disease, stage 5 Complete Blood Count Auto Diff Today E10.22 - Type 1 diabetes mellitus with diabetic chronic kidney disease, N18.30 - Chronic kidney disease, stage 3 unspecified, N18.5 - Chronic kidney disease, stage 5 Parathyroid Hormone Intact Today E10.22 - Type 1 diabetes mellitus with diabetic chronic kidney disease, N18.5 - Chronic kidney disease, stage 5 Phosphorus Today E10.22 - Type 1 diabetes mellitus with diabetic chronic kidney disease, N18.5 - Chronic kidney disease, stage 5 Coding Level of Care Code Est Pt Level 4 (78967) Diagnoses Uncontrolled type 1 diabetes mellitus with hyperglycemia E10.65 Hypertensive emergency I16.1 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 E10.22; N18.5 Results Reviewed Nephrology Results: Hgb 12.4 g/dl (14.0-18.0) L 02/11/23 WBC 10.0 X10*3/uL (4.8-10.8) 02/11/23 Plt Count 222 X10*3/uL (160-400) 02/11/23 Sodium 140 mmol/L (135-145) 02/11/23 Potassium 4.4 mmol/L (3.3-5.1) 02/11/23 Chloride 105 mmol/L (96-108) 02/11/23 Carbon Dioxide 24 mmol/L (22-29) 02/11/23 BUN 39 mg/dL (9-16) H 02/11/23 Creatinine 4.07 mg/dL (0.5-1.4) H* 02/11/23 Calcium 8.7 mg/dL (8.4-10.2) 02/11/23 Urine Protein >=1000 (4+) mg/dL (Neg-Trace) H 02/10/23
== END 2023-05-04 15:20 | disposition home or self-care (01) ==
PROVIDERS: PCP Internal Medicine Geriatric Medicine; Referring Provider Internal Medicine Geriatric Medicine; Visit Provider Internal Medicine Hypertension Specialist
DX: E10.65 Type 1 diabetes mellitus with hyperglycemia (principal); I16.1 Hypertensive emergency; E10.22 Type 1 diabetes mellitus with diabetic chronic kidney disease; N18.5 Chronic kidney disease, stage 5
CPT/HCPCS: 99214

== ENCOUNTER 2023-05-13 15:54 | Outpatient (AMB) | payer MEDICAID, SELFPAY ==
--- NOTE | 2023-05-13 16:24 | MHC.AMDMED ---
Intake Intake Visit Reasons: dm/confirmed Floor Steward/Stewardess Required: Yes Floor Steward/Stewardess Language: Mr Teacher Name: Poornima [facility] [place] Compensation Analyst: Compensation Analyst offered & declined Accompanied by: Spouse Allergies gluten Allergy (Verified 05/04/23 15:06) Gastrointestinal Upset losartan Allergy (Verified 05/04/23 15:06) Gastrointestinal Upset valsartan Adverse Reaction (Unknown, Verified 05/04/23 15:06) GI problems HPI Comprehensive Diabetes Asmnt Most Recent Diabetes Results: Hemoglobin A1c 8.3 % 09/10/18 Microalb/Creat Ratio 1922.5 ug/mg cr 07/15/21 Cholesterol 150 mg/dL (<200) 10/28/22 HDL Cholesterol 35 mg/dL (>40) L 10/28/22 Triglycerides 124 mg/dL (<150) 10/28/22 Creatinine 4.71 mg/dL (0.5-1.4) H* 05/04/23 Blood Urea Nitrogen 40 mg/dL (9-16) H 05/04/23 Sodium 139 mmol/L (135-145) 05/04/23 Potassium 4.7 mmol/L (3.3-5.1) 05/04/23 Chloride 110 mmol/L (96-108) H 05/04/23 Carbon Dioxide 22 mmol/L (22-29) 05/04/23 Calcium 8.8 mg/dL (8.4-10.2) 05/04/23 AST 14 U/L (5-37) 05/04/23 ALT 20 U/L (0-40) 05/04/23 Total Protein 6.8 g/dL (6.5-8.0) 05/04/23 Albumin 3.9 g/dL (3.5-5.0) 05/04/23 [facility] Medical History (Updated 03/09/23 @ 15:32 by Onur Bejarano MD) Hypertensive urgency CKD (chronic kidney disease) stage 4, GFR 15-29 ml/min Hypertensive nephrosclerosis Diabetic gastroparesis Pancreatitis Vitamin D deficiency Hypocalcemia Background diabetic retinopathy associated with type 2 diabetes mellitus Diabetes type 1, uncontrolled Hemangioma of liver Legally blind Acid reflux Sciatica Gastritis Polyneuropathy Essential hypertension Hyperlipidemia LDL goal <70 Surgical History Hx of endoscopy Hx of circumcision Hx of appendectomy Hx of eye surgery Family History Father Diabetes mellitus Mother Diabetes mellitus Maternal Grandfather Diabetes mellitus Maternal Grandmother Diabetes mellitus Social History Household Members: Spouse Household Members Other:: and girlfriend Housing: Apartment Do you presently have visiting nurse or other home services: No Alcohol intake: never Comment: refusing fall risk interventions. Patient Tobacco Use Status: Former Tobacco user Second Hand Smoke Exposure: No Substance Use Type: Marijuana Advance Directives Date on File: 04/13/20 service: No Current occupational status: disabled Assessment & Plan Assessment & Plan (1) Diabetes type 1, uncontrolled: Code(s): E10.65 - Type 1 diabetes mellitus with hyperglycemia Plan: Patient presents for pump training for Omnipod 5 pump and CGM training today. Pt Omnipod user name: [email or web address] CGM ? Low alert:? 80 mg/dL High alert:? 180 mg/dL ?reviewed patient's Dexcom data ?patient above target 23% ?patient at target 72% ?patient below target 5% ?patient's average glucose for the past 2 weeks 145 mg/dL patient is having some post meal hypoglycemia,? this may be due to patient over correcting or correcting within 1-2 hours after initial mealtime bolus Reminded patient not to do more than 1 correction every 3-1/2 hours when glucose levels are high We still cannot connect to Carl Osborne with [employer], [employer] rep, explained that this has been an ongoing issue and that a Italian-speaking financial service representative from [employer] needs to contact patient to help reset [employer] account password, since we keep getting an error message we tried to do it here in the office. I asked [employer] to be at our next visit, [employer] agreed in addition he will reach out to patient was Italian-speaking represented to try and solve problem over the phone. If that does not work we are planning to meet together pauly Troubleshooting after starting new pod or inserting new insulin set: Occlusion, adhesive tape sensitivity, redness Check BG 2 hours after site change Patient understands the basic concepts of pump therapy, how to give insulin for meals and snacks, how to troubleshoot for hyper and hypoglycemia. No changes to settings at today's visit Basal rate(s) (units/hour) : ?12 AM to 7 AM 1.25 units/hr? 7 AM to 12 AM 1.0 units /hr Bolus setting Insulin Carbohydrate Ratio (s) 12 AM to 12 AM? 1 unit:11gm? Correction Factor / Sensitivity Factor 12 AM to 12 AM? 1 unit / 60 mg/dL 12 AM to 7 AM??1 unit / 70 mg/dL 7 AM to 12 AM? 1 unit / 60 mg/dL Active Insulin Time:? 3 hours Target(s): 12 AM to 12 AM 120 mg/dL Patient Instructions: We will reach out to patient to schedule next appointment Coding Level of Care Code Est Pt Level 1 (06496) Diagnoses Uncontrolled type 1 diabetes mellitus with hyperglycemia E10.65
== END 2023-05-14 15:18 | disposition home or self-care (01) ==
PROVIDERS: PCP Internal Medicine Geriatric Medicine; Visit Provider Registered Nurse Diabetes Educator
DX: E10.65 Type 1 diabetes mellitus with hyperglycemia (principal)

== ENCOUNTER → 2023-05-13 15:54 | Outpatient (BNVA) | payer MEDICAID, SELFPAY | PROVIDERS: PCP Internal Medicine Geriatric Medicine; Visit Provider Registered Nurse Diabetes Educator | DX: Z46.81 Encounter for fitting and adjustment of insulin pump (principal); E10.65 Type 1 diabetes mellitus with hyperglycemia; Z79.4 Long term (current) use of insulin | CPT/HCPCS: 99211 ==

== ENCOUNTER 2023-07-08 14:57 | Outpatient (AMB) | payer MEDICAID, SELFPAY ==
--- NOTE | 2023-07-08 15:26 | A.OFFVIS_ITS ---
Intake Intake Visit Reasons: Dm1, to program new PDM Refrigerator Tester Required: Yes Refrigerator Tester Language: Assistant Director Of Plant Operations Name: Pushpa from [employer] Information Interpreted: non-clinical & clinical Accompanied by: Other Relationship Allergies gluten Allergy (Verified 05/04/23 15:06) Gastrointestinal Upset losartan Allergy (Verified 05/04/23 15:06) Gastrointestinal Upset valsartan Adverse Reaction (Unknown, Verified 05/04/23 15:06) GI problems HPI Comprehensive Diabetes Asmnt Most Recent Diabetes Results: Creatinine 4.71 mg/dL (0.5-1.4) H* 05/04/23 Blood Urea Nitrogen 40 mg/dL (9-16) H 05/04/23 Sodium 139 mmol/L (135-145) 05/04/23 Potassium 4.7 mmol/L (3.3-5.1) 05/04/23 Chloride 110 mmol/L (96-108) H 05/04/23 Carbon Dioxide 22 mmol/L (22-29) 05/04/23 Calcium 8.8 mg/dL (8.4-10.2) 05/04/23 AST 14 U/L (5-37) 05/04/23 ALT 20 U/L (0-40) 05/04/23 Total Protein 6.8 g/dL (6.5-8.0) 05/04/23 Albumin 3.9 g/dL (3.5-5.0) 05/04/23 [facility] Medical History (Updated 03/09/23 @ 15:32 by Onur Bejarano MD) Hypertensive urgency CKD (chronic kidney disease) stage 4, GFR 15-29 ml/min Hypertensive nephrosclerosis Diabetic gastroparesis Pancreatitis Vitamin D deficiency Hypocalcemia Background diabetic retinopathy associated with type 2 diabetes mellitus Diabetes type 1, uncontrolled Hemangioma of liver Legally blind Acid reflux Sciatica Gastritis Polyneuropathy Essential hypertension Hyperlipidemia LDL goal <70 Surgical History Hx of endoscopy Hx of circumcision Hx of appendectomy Hx of eye surgery Family History Father Diabetes mellitus Mother Diabetes mellitus Maternal Grandfather Diabetes mellitus Maternal Grandmother Diabetes mellitus Social History Household Members: Spouse Household Members Other:: and girlfriend Housing: Apartment Do you presently have visiting nurse or other home services: No Alcohol intake: never Comment: refusing fall risk interventions. Patient Tobacco Use Status: Former Tobacco user Second Hand Smoke Exposure: No Substance Use Type: Marijuana Advance Directives Date on File: 04/13/20 service: No Current occupational status: disabled Assessment & Plan Assessment & Plan (1) Diabetes type 1, uncontrolled: Code(s): E10.65 - Type 1 diabetes mellitus with hyperglycemia Plan: Created new user name and password for patient's [facility] account: Perficient ID: [id number] Password: [email or web address] We were unable to set up patient's new controller because it was not charged To make new appointment, bring to that appointment a charged control, vial of insulin and new pod Coding Level of Care Code Est Pt Level 1 (29815) Diagnoses Uncontrolled type 1 diabetes mellitus with hyperglycemia E10.65
== END 2023-07-08 15:27 | disposition home or self-care (01) ==
PROVIDERS: PCP Internal Medicine Geriatric Medicine; Visit Provider Registered Nurse Diabetes Educator
DX: E10.65 Type 1 diabetes mellitus with hyperglycemia (principal)

== ENCOUNTER → 2023-07-08 14:57 | Outpatient (BNVA) | payer MEDICAID, SELFPAY | PROVIDERS: PCP Internal Medicine Geriatric Medicine; Visit Provider Registered Nurse Diabetes Educator | DX: E10.65 Type 1 diabetes mellitus with hyperglycemia (principal); Z79.4 Long term (current) use of insulin | CPT/HCPCS: 99211 ==

== ENCOUNTER 2023-08-04 15:10 | Outpatient (AMB) | payer MEDICAID, SELFPAY ==
[2023-08-04 15:12] VITALS: BP 128/72; PULSE 83; O2SAT 95; BMI 26.8
--- NOTE | 2023-08-04 15:12 | HO.NEPHOV ---
Vital Signs 08/04/23 15:12 Height 5 ft 8 in Weight 176 lb BMI 26.8 BP 128/72 Blood Pressure Location Lt brachial Position Sitting Pulse 83 Pulse Source Pulse Oximeter Pulse Oximetry (%) 95 Oxygen Delivery Method Room Air Intake Visit Reasons: CKD/ 3 MO FU/ Conf Voice Writing Reporter Required: Yes Voice Writing Reporter Name: Haleigh [id number] Accompanied by: Spouse Allergies gluten Allergy (Verified 08/04/23 15:14) Gastrointestinal Upset losartan Allergy (Verified 08/04/23 15:14) Gastrointestinal Upset valsartan Adverse Reaction (Unknown, Verified 08/04/23 15:14) GI problems HPI Comments Details: 37-year-old man with type 1 diabetes mellitus and advanced CKD. He has underlying diabetic nephropathy. He was accompanied by his caregiver. Interpretation service was used. Today he has no new complaints. He is compliant with his medication. Blood sugar seems to be well controlled at home. [facility] Medical History (System 07/15/23 @ 10:08 by Janette Lyle) Hypertensive urgency CKD (chronic kidney disease) stage 4, GFR 15-29 ml/min Hypertensive nephrosclerosis Diabetic gastroparesis Pancreatitis Vitamin D deficiency Hypocalcemia Background diabetic retinopathy associated with type 2 diabetes mellitus Diabetes type 1, uncontrolled Hemangioma of liver Legally blind Acid reflux Sciatica Gastritis Polyneuropathy Essential hypertension Hyperlipidemia LDL goal <70 Surgical History Hx of endoscopy Hx of circumcision Hx of appendectomy Hx of eye surgery Family History Father Diabetes mellitus Mother Diabetes mellitus Maternal Grandfather Diabetes mellitus Maternal Grandmother Diabetes mellitus Social History Household Members: Spouse Household Members Other:: and girlfriend Housing: Apartment Do you presently have visiting nurse or other home services: No Alcohol intake: never Comment: refusing fall risk interventions. Patient Tobacco Use Status: Former Tobacco user Second Hand Smoke Exposure: No Substance Use Type: Marijuana Advance Directives Date on File: 04/13/20 service: No Current occupational status: disabled Physical Exam Vital Signs: Last Vital Signs Pulse 83 08/04/23 15:12 BP 128/72 08/04/23 15:12 Pulse Ox 95 08/04/23 15:12 Oxygen Delivery Method Room Air 08/04/23 15:12 BMI result Body Mass Index 26.8 Const Other: Legally blind General: comfortable Nutritional Appearance: well nourished Orientation/consciousness: patient oriented x3 HEENT Head: No normal to inspection Mouth: moist mucous membranes Neck Neck: Yes supple and Yes no JVD Resp Auscultation: clear to auscultation bilaterally, no rales and rub present Cardio Jugular venous distension: no JVD Palpation: no palpable S3 and no palpable S4 Heart sounds: no rubs GI Palpation (GI): Soft to palpation and nontender Percussion: No Fluid wave present General: Yes no CVA tenderness Back/Spine/Pelvis Back: no CVA tenderness Skin General skin exam: no rashes or lesions noted Neuro General: patient oriented x3 Extrem General: Yes no pedal edema and No clubbing Results Reviewed Nephrology Results: Hgb 13.0 g/dl (14.0-18.0) L 05/04/23 WBC 7.9 X10*3/uL (4.8-10.8) 05/04/23 Plt Count 219 X10*3/uL (160-400) 05/04/23 Sodium 139 mmol/L (135-145) 05/04/23 Potassium 4.7 mmol/L (3.3-5.1) 05/04/23 Chloride 110 mmol/L (96-108) H 05/04/23 Carbon Dioxide 22 mmol/L (22-29) 05/04/23 BUN 40 mg/dL (9-16) H 05/04/23 Creatinine 4.71 mg/dL (0.5-1.4) H* 05/04/23 Calcium 8.8 mg/dL (8.4-10.2) 05/04/23 Phosphorus 4.6 mg/dL (2.7-4.5) H 05/04/23 PTH Intact 428.3 pg/mL (8.7-77.1) H 05/04/23 Assessment & Plan Assessment & Plan (1) Diabetes type 1, uncontrolled: Code(s): E10.65 - Type 1 diabetes mellitus with hyperglycemia Category: Medical (2) 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 Renal function stable at baseline. No signs or symptoms of uremia. Fluid status is acceptable. Goal is to slow the portion disease. Current continue with current regimen. Maintain blood pressure less than 130/80 and A1c less than 7%. Continue overt nephrotoxic agents. He is being evaluated by [facility] transplant service for preemptive transplantation He has on the active list Resistant hypertension blood pressure well controlled I have encouraged him to stay on low-sodium diet. No changes were made. He is mild anemia no indication for Epogen yet. Labs ordered for 2 Orders: Orders Parathyroid Hormone Intact Today E10.22 - Type 1 diabetes mellitus with diabetic chronic kidney disease, N18.5 - Chronic kidney disease, stage 5 Complete Blood Count no Diff Today E10.22 - Type 1 diabetes mellitus with diabetic chronic kidney disease, N18.5 - Chronic kidney disease, stage 5 Comprehensive Met. Panel Today E10.22 - Type 1 diabetes mellitus with diabetic chronic kidney disease, N18.5 - Chronic kidney disease, stage 5 Phosphorus Today E10.22 - Type 1 diabetes mellitus with diabetic chronic kidney disease, N18.5 - Chronic kidney disease, stage 5 Coding Level of Care Code Est Pt Level 4 (35642) Diagnoses Uncontrolled type 1 diabetes mellitus with hyperglycemia E10.65 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 E10.22; N18.5
== END 2023-08-04 15:27 | disposition home or self-care (01) ==
PROVIDERS: PCP Internal Medicine Geriatric Medicine; Referring Provider Internal Medicine Geriatric Medicine; Visit Provider Internal Medicine Hypertension Specialist
DX: E10.65 Type 1 diabetes mellitus with hyperglycemia (principal); E10.22 Type 1 diabetes mellitus with diabetic chronic kidney disease; N18.5 Chronic kidney disease, stage 5
CPT/HCPCS: 99214

== ENCOUNTER 2023-08-04 15:10 | Outpatient (REF) | payer MEDICAID, SELFPAY ==
[2023-08-04 16:13] LABS: Hematocrit 35.3 % (42.0-52.0); Mean Corpuscular Hemoglobin 29.9 pg (27.0-33.0); Mean Corpuscular Volume 87.8 fL (80.0-98.0); Mean Platelet Volume 10.3 fL (9.4-12.4); Platelet Count 189 X10*3/uL (160-400); Red Blood Count 4.02 X10*6/uL (4.60-5.80); Red Cell Distribution Width 12.2 % (11.0-16.0); White Blood Count 8.1 X10*3/uL (4.8-10.8)
[2023-08-04 16:52] LABS: Parathyroid Hormone Intact 459.9 pg/mL (8.7-77.1)
[2023-08-04 16:55] LABS: Alanine Aminotransferase 72 U/L (0-40); Albumin Level 3.9 g/dL (3.5-5.0); Alkaline Phosphatase 90 U/L (39-117); Anion Gap 12 (12-20); Aspartate Amino Transferase 21 U/L (5-37); Bilirubin Total 0.4 mg/dL (0.0-1.0); Blood Urea Nitrogen 50 mg/dL (9-16); Calcium 8.8 mg/dL (8.4-10.2); Carbon Dioxide 26 mmol/L (22-29); Chloride 108 mmol/L (96-108); Estimated Glomerular Filt Rate 12; Glucose Random 213 mg/dL (60-115); Phosphorus 4.2 mg/dL (2.7-4.5); Potassium 4.8 mmol/L (3.3-5.1); Sodium 141 mmol/L (135-145); Total Protein 6.8 g/dL (6.5-8.0)
[2023-08-04 16:56] LABS: Prostate Specific Antigen 0.27 ng/mL (<0.05-4.0)
[2023-08-04 17:21] LABS: Appearance Urine Clear; Color Urine Yellow; Glucose Urine UA Negative (Negative); Leukocyte Esterase Urine Negative (Negative); Nitrite Urine Negative (Negative); PH 5.5 (5.0-9.0); Specific Gravity - Urine 1.015 (1.005-1.025); UMIC TRIGGER UACC YES; Urine Blood Negative (Negative); Urine Ketones Negative (Negative); Urine Protein 300 (3+) mg/dL (Neg-Trace)
[2023-08-04 17:24] LABS: Bacteria Urine None Seen (None Seen); Hyaline Casts Urine 0-2 /LPF (0-2); RBC Urine 0-2 /HPF (0-2); Squamous Epithelial Cell Urine 0-2 /HPF (0-2); WBC Urine 0-5 /HPF (0-5)
== END 2023-08-04 15:11 | disposition home or self-care (01) ==
LOC: HO.LAB 15:10
PROVIDERS: PCP Internal Medicine Geriatric Medicine; Visit Provider Internal Medicine Hypertension Specialist
DX: E10.22 Type 1 diabetes mellitus with diabetic chronic kidney disease (principal); E10.40 Type 1 diabetes mellitus with diabetic neuropathy, unspecified; E10.65 Type 1 diabetes mellitus with hyperglycemia; N18.5 Chronic kidney disease, stage 5; N40.1 Benign prostatic hyperplasia with lower urinary tract symptoms; R35.1 Nocturia
CPT/HCPCS: 36415; 80053; 81001; 83970; 84100; 84153; 85027; 99212

== ENCOUNTER 2023-08-24 17:26 | Emergency (ER) | payer MEDICAID, SELFPAY | END 2023-08-24 18:32 | disposition left against medical advice (07) | PROVIDERS: Emergency Provider Emergency Medicine; PCP Internal Medicine Geriatric Medicine | DX: R05.9 Cough, unspecified (principal); Z53.21 Procedure and treatment not carried out due to patient leaving prior to being seen by health care provider ==

== ENCOUNTER 2023-08-30 21:09 | Emergency (ER) | payer MEDICAID, SELFPAY ==
--- NOTE | ~2023-08-30 | XR_ITS ---
EXAMINATION: XR CHEST CLINICAL INFORMATION: Cough COMPARISON: 02/02/2023 TECHNIQUE: 2 views of the chest were obtained. FINDINGS: No significant abnormality is noted involving the heart, lungs, mediastinum, bony thorax or soft tissues. XR/XR chest 2V IMPRESSION: Unremarkable examination.
[2023-08-30 21:13] VITALS: BP 139/80; PULSE 86; RESP 18; TEMP 36.6; O2SAT 96; BMI 25.7
--- NOTE | 2023-08-30 21:44 | ED_ITS ---
HPI - General Adult General Chief complaint: Upper Respiratory Symptoms Stated complaint: congestion x 3 weeks Time Seen by Provider: 08/30/23 21:42 Source: patient and complementary health therapists Mode of arrival: ambulatory Limitations: language barrier History of Present Illness ED Provider: Migdalia Gonzalez PA-C HPI narrative: Patient is a 37 year old assigned male at with a history of CKD, DM, legal blindness, and nephrosclerosis presenting to the emergency department today with a month of congestion and cough but recently getting a sore throat. Patient states that for the last month he has had congestion and a cough but the throat began to bother him over the last few days. Patient denies any dizziness, lightheadedness, abdominal pain, nausea, vomiting, fever, chills, blurry vision, double vision, loss of vision, chest pain, difficulty breathing, shortness of breath, back pain, night sweats, pain with urination, increased urinary frequency, increased urinary urgency, blood in his urine or stool, syncope or a near syncopal episode, recent trauma or falls, bowel incontinence, bladder incontinence, or any other complaints at this time. Onset (ago): day(s) Severity: mild Relieving factors: none Exacerbating factors: none Associated symptoms: cough Treatments prior to arrival: none Related Data Home Medications ?Medication ?Instructions ?Recorded ?Confirmed omeprazole 40 mg capsule,delayed 40 mg PO DAILY@0630 01/04/20 02/10/23 release pen needle, diabetic 32 gauge x #50 ea 07/12/21 07/12/21 (BD Ultra-Fine Shannan Pen Needle) metoprolol succinate 50 mg 50 mg PO DAILY 07/29/21 02/10/23 tablet,extended release 24 hr gabapentin 300 mg capsule 300 mg PO BEDTIME 05/13/22 02/10/23 hydralazine 100 mg tablet 100 mg PO TID 05/13/22 02/10/23 metoprolol succinate 100 mg 100 mg PO DAILY 02/10/23 02/10/23 tablet,extended release 24 hr nifedipine 30 mg tablet,extended 30 mg PO QAM 02/10/23 02/10/23 release 24 hr furosemide 20 mg tablet 20 mg PO DAILY PRN 03/09/23 nortriptyline 50 mg capsule 50 mg PO BEDTIME 03/09/23 tamsulosin 0.4 mg capsule 0.4 mg PO QPM 08/04/23 Previous Rx's ?Medication ?Instructions ?Recorded atorvastatin 80 mg tablet 80 mg PO DAILY #30 tabs 12/12/20 ezetimibe 10 mg tablet (Zetia) 10 mg PO DAILY 90 days #90 tabs 07/05/21 insulin pump cartridge,automated #1 ea 02/19/22 dose,BT with controller subcutaneous (Omnipod 5 G6 Intro Kit (Gen 5) subcutaneous cartridge with controller) insulin pump cart,automated,BT #10 ea 03/02/23 (Omnipod 5 G6 Pods (Gen 5) subcutaneous cartridge) insulin glargine 100 unit/mL (3 10 unit (0.1 mL) subcut DAILY pump 06/03/23 mL) subcutaneous pen (Lantus malfunction #15 mL Solostar U-100 Insulin) insulin aspart U-100 100 unit/mL See Rx Instructions subcut TID #20 07/15/23 subcutaneous solution mL calcitriol 0.5 mcg capsule 0.5 mcg PO DAILY #90 caps 08/19/23 penicillin V potassium 500 mg 500 mg PO BID 10 days #20 tabs 08/30/23 tablet Allergies Allergy/AdvReac Type Severity Reaction Status Date / Time gluten Allergy Gastrointestinal Verified 08/30/23 21:39 Upset losartan Allergy Gastrointestinal Verified 08/30/23 21:39 Upset valsartan AdvReac Unknown GI problems Verified 08/30/23 21:39 Review of Systems Constitutional: Constitutional: Reports no additional constitutional complaints, Denies chills, Denies fever(s) and Denies night sweats Eyes: Comments: legally blind per his baseline ENT: Denies dizziness, Reports nasal congestion and Reports sore throat Cardiovascular: Cardiovascular: Reports no additional cardiovascular complaints, Denies chest pain, Denies lightheadedness, Denies Loss of Consciousness and Denies dyspnea Respiratory: Respiratory: Reports no additional respiratory complaints and Denies dyspnea Gastrointestinal: Gastrointestinal: Reports no additional gastrointestinal complaints, Denies abdominal pain, Denies melena, Denies hematochezia, Denies change in bowel habits and Denies change in stool character Genitourinary: Genitourinary: Reports no additional male genitourinary complai nts, Denies hematuria, Denies oliguria, Denies difficulty urinating, Denies dysuria, Denies urinary frequency, Denies urinary hesitancy, Denies urinary incontinence and Denies urinary urgency Musculoskeletal: Musculoskeletal: Reports no additional musculoskeletal complaints, Denies numbness and Denies tingling Neurologic: Denies dizziness, Denies numbness and Denies tingling Psychiatric: Psychiatric: Reports no additional psychiatric complaints Endocrine: Endocrine: Reports no additional endocrine complaints Hematologic/Lymphatic: Hematologic/Lymphatic: Reports no additional hematologic/lymphatic complaints Allergic/Immunologic: Allergic/Immunologic: Reports no additional allergic/immunologic complaints PMFSH Past Medical History Attestation statement: The following information was validated with the patient. Source: old records reviewed and nursing notes reviewed Medical History Hypertensive urgency CKD (chronic kidney disease) stage 4, GFR 15-29 ml/min Hypertensive nephrosclerosis Diabetic gastroparesis Pancreatitis Vitamin D deficiency Hypocalcemia Background diabetic retinopathy associated with type 2 diabetes mellitus Diabetes type 1, uncontrolled Hemangioma of liver Legally blind Acid reflux Sciatica Gastritis Polyneuropathy Essential hypertension Hyperlipidemia LDL goal <70 Surgical History Hx of endoscopy Hx of circumcision Hx of appendectomy Hx of eye surgery Family History Family History Father Diabetes mellitus Mother Diabetes mellitus Maternal Grandfather Diabetes mellitus Maternal Grandmother Diabetes mellitus Social History Social History Household Members: Spouse Household Members Other:: and girlfriend Housing: Apartment Do you presently have visiting nurse or other home services: No Alcohol intake: never Comment: refusing fall risk interventions. Patient Tobacco Use Status: Former Tobacco user Second Hand Smoke Exposure: No Substance Use Type: Marijuana Advance Directives: Yes Advance Directives on File: Yes Advance Directives Date on File: 04/13/20 Do you have a plan to hurt others: No Plan service: No Current occupational status: disabled Physical Exam ED Vital Signs: Vital Signs - 24 hr 08/30/23 21:13 08/30/23 22:59 Temperature 97.8 F 97.8 F Pulse Rate 86 86 Respiratory Rate 18 18 Blood Pressure 139/80 139/80 Pulse Oximetry 96 96 Oxygen Delivery Method Room Air Room Air BMI result Body Mass Index 25.7 Const General: cooperative, no acute distress, alert and awake Nutritional Appearance: well nourished Orientation/consciousness: patient oriented x3 Limitations: no limitations HENMT Head: Yes normal to inspection and Yes atraumatic Ears: hearing grossly normal bilaterally and external ears normal General nose exam: Normal external nose present, no nasal discharge noted and no epistaxis Face and sinus: Yes normal facial exam, No abrasion and No laceration Mouth: Normal oral and palatal mucosa present, no drooling and no muffled voice Neck Neck: Yes normal visual inspection, Yes full ROM and Yes no lymphadenopathy Chest Chest palpation & inspection: normal inspection of the chest Resp Effort & Inspection: normal respiratory effort and able to speak in complete sentences GI Inspection: Yes normal to inspection Neuro General: patient oriented x3 and moves all extremities Cognition (Neuro): normal cognition Extrem General: Yes normal to inspection, Yes full ROM and Yes capillary refill normal Psych Appearance: grossly normal Mental Status: mental status grossly normal Affect: normal affect Attitude: cooperative Thought process: Normal thought process present Thought content: Normal thought content present Insight: Good insight present (Psych) Medications Administered Discontinued Medications Generic Name Dose Route Start Last Admin Trade Name Chemoq PRN Reason Stop Dose Admin Penicillin V Potassium 500 mg 08/30/23 22:44 08/30/23 22:56 Penicillin V Potassium 250 Mg Tablet PO 08/30/23 22:45 500 mg ONCE ONE Administration Medical Decision Making Medical Decision Making [facility] Narrative: Patient is a 37 year old assigned male at with a history of CKD, DM, legal blindness, and nephrosclerosis presenting to the emergency department today with a sore throat, cough, and congestion. Patient's physical exam was as noted in the physical exam portion of this note. Patient's chest x-ray showed no acute process. Patient's strep test was positive. Patient's COVID-19, influenza, and RSV tests were negative. I explained my physical exam findings as well as all test results to the patient. I answered all questions asked by the patient. I st ressed the importance of the patient taking his medication as directed (either prescribed or as the over the counter packaging recommends). I stressed the importance of the patient following up with his primary care provider. I stressed the importance of the patient returning to the emergency department immediately if his symptoms were to worsen or if he were to develop any dizziness, shortness of breath, difficulty breathing, chest pain, blurry vision, loss of vision, nausea, vomiting, abdominal pain, fever, chills, back pain, or any other complaints. Patient verbalized agreement and understanding with this treatment plan and discharge. Differential Diagnosis Differential Diagnoses: The differential diagnosis associated with the presentation includes Strep pharyngitis Pharyngitis COVID-19 Influenza RSV Admission/Observation Consideration of admission/observation: Escalation of care including admission/observation considered Patient would have been admitted to the hospital had his work up had any findings where hospital admission was appropriate and his clinical presentation warranted hospital admission. Lab Data [facility] Lab Attestation statement: I reviewed the patient's lab results. My interpretation of these results are in the [facility] Rationale portion of this note. Labs: Lab Results 08/30/23 Range/Units 22:08 Influenza Type A (PCR) NEGATIVE (Negative) Influenza Type B (PCR) NEGATIVE (Negative) RSV RNA Qual (PCR) NEGATIVE (Negative) SARS-CoV-2 RNA (RT-PCR) NEGATIVE (Negative) S. pyogenes GrpA STAN Positive A (Negative) Independent Interpretation I performed an independent interpretation of an: Plain X-Ray Interpretation: My interpretation is in agreement with the radiologist's impression of this imaging study. EXAMINATION: XR CHEST CLINICAL INFORMATION: Cough COMPARISON: 02/02/2023 TECHNIQUE: 2 views of the chest were obtained. FINDINGS: No significant abnormality is noted involving the heart, lungs, mediastinum, bony thorax or soft tissues. XR/XR chest 2V IMPRESSION: Unremarkable examination. Dictated By: Reji Morales MD Signed By: Electronically signed by Reji Morales MD 08/30/23 4101 Radiology Impression Discussion of test interpretation with radiology: I have reviewed the radiologist's reading. Prescription Management I considered prescription management with: Antibiotic (patient prescribed an antibiotic for strep pharyngitis) Discharge Plan Discharge Clinical Impression: Strep pharyngitis Patient Disposition: Home, Self-Care Instructions: Strep Throat (DC) Additional Instructions: Follow up with your primary care provider. Return to the emergency department immediately if your symptoms worsen or if you develop any dizziness, shortness of breath, difficulty breathing, chest pain, blurry vision, loss of vision, nausea, vomiting, abdominal pain, fever, chills, back pain, or any other complaints. Arlyn?seguimiento?con patino m?dico de atenci?n primaria. Acuda inmediatamente al servicio de urgencias si kyle s?ntomas empeoran o si presenta falta de aliento, dificultad para respirar, dolor tor?cico, mareos, aturdimiento, dolor de espalda, dolor abdominal, fiebre, escalofr?os o cualquier otro s?ntoma. Prescriptions: New penicillin V potassium 500 mg tablet 500 mg PO BID 10 Days Qty: 20 0RF No Action atorvastatin 80 mg tablet 80 mg PO DAILY Qty: 30 6RF ezetimibe [Zetia] 10 mg tablet 10 mg PO DAILY 90 Days Qty: 90 1RF (DME) Omnipod 5 G6 Intro Kit (Gen 5) Cartridge See Rx Instructions .Route Qty: 1 4RF Rx Instructions: As directed (DME) Omnipod 5 G6 Pods (Gen 5) Cartridge See Rx Instructions .ROUTE .COMPLEX Qty: 10 11RF Dose Instruction: CHANGE POD EVERY 72 HOURS DIRECTED Rx Instructions: CHANGE POD EVERY 72 HOURS DIRECTED insulin glargine [Lantus Solostar U-100 Insulin] 100 unit/mL (3 mL) insulin pen 10 unit subcut DAILY Qty: 15 4RF insulin aspart U-100 100 unit/mL solution See Rx Instructions subcut TID Qty: 20 5RF Rx Instructions: infuse up to 70 units via insulin pump subcutaneously 3 times a day; calcitriol 0.5 mcg capsule 0.5 mcg PO DAILY Qty: 90 3RF metoprolol succinate 50 mg tablet extended release 24 hr 50 mg PO DAILY Rx Instructions: take with the 100mg furosemide 20 mg tablet 20 mg PO DAILY PRN metoprolol succinate 100 mg tablet extended release 24 hr 100 mg PO DAILY Rx Instructions: take with the 50mg nifedipine 30 mg tablet extended release 24hr 30 mg PO QAM omeprazole 40 mg capsule,delayed release(DR/EC) 40 mg PO DAILY@0630 (DME) pen needle, diabetic [BD Ultra-Fine Shannan Pen Needle] 32 gauge x 5/32 needle See Rx Instructions .ROUTE QID Qty: 50 Rx Instructions: As directed gabapentin 300 mg capsule 300 mg PO BEDTIME hydralazine 100 mg tablet 100 mg PO TID nortriptyline 50 mg capsule 50 mg PO BEDTIME tamsulosin 0.4 mg capsule 0.4 mg PO QPM Referrals: Marcos,MD Hong [Primary Care Provider] - Stand Alone Forms: Work/School Release Interventions: ED Discharge Assessment Last Done: 08/30/23 22:59 Discharge Date/Time: 08/30/23 22:59 Print Language: Bermudian
[2023-08-30 22:23] LABS: IDNOW Serial# 08D9AD1C; Strep A Nucleic Acid Positive (Negative)
[2023-08-30 22:56] LABS: Influenza A PCR NEGATIVE (Negative); Influenza B PCR NEGATIVE (Negative); Resp Syncy Virus RNA Qual PCR NEGATIVE (Negative); SARS COV2 PCR INHOUSE NEGATIVE (Negative)
[2023-08-30] MEDS: Penicillin V Potassium 250 MG TABLET 500 MG PO (22:56)
[2023-08-30 22:59] VITALS: BP 139/80; PULSE 86; RESP 18; TEMP 36.6; O2SAT 96
== END 2023-08-30 22:59 | disposition home or self-care (01) ==
PROVIDERS: Physician Assistant Medical; Emergency Provider Emergency Medicine Emergency Medical Services; PCP Internal Medicine Geriatric Medicine
DX: J02.0 Streptococcal pharyngitis (principal); R05.9 Cough, unspecified; E10.22 Type 1 diabetes mellitus with diabetic chronic kidney disease; I12.9 Hypertensive chronic kidney disease with stage 1 through stage 4 chronic kidney disease, or unspecified chronic kidney disease; N18.4 Chronic kidney disease, stage 4 (severe); E78.5 Hyperlipidemia, unspecified
CPT/HCPCS: 0241U; 71046; 87651; 99282; 99283

== ENCOUNTER 2023-09-23 14:55 | Outpatient (AMB) | payer MEDICAID, SELFPAY ==
--- NOTE | 2023-09-23 14:57 | A.OFFVIS_ITS ---
Vital Signs 09/23/23 15:04 Height 5 ft 8 in Weight 174 lb 2.643 oz BMI 26.5 BP 122/70 Blood Pressure Location Rt brachial Position Sitting Pulse 94 Pulse Source Pulse Oximeter Intake Visit Reasons: Type 1 DM/CONFIRMED Intake Note: New Patient presents today for to establish treatment for Type 1 Diabetes Mellitus: Last Diabetic eye exam was on: 05/2023 Last Podiatry exam was on: Does not see a Cigar Sorter Most recent HbA1c: 6.9%, 09/22/2022 Random Glucose- 230mg/dL, Today Filbert Grower Required: Yes Filbert Grower Language: Operation Shift Supervisor Name: GIL Licona/LENARD MERCADO Information Interpreted: non-clinical & clinical Accompanied by: Significant Other Allergies gluten Allergy (Verified 09/24/23 14:54) Gastrointestinal Upset losartan Allergy (Verified 09/24/23 14:54) Gastrointestinal Upset valsartan Adverse Reaction (Unknown, Verified 09/24/23 14:54) GI problems HPI Comments Details: Patient is a 37-year-old male with DM type 1 diagnosed at the age of 7 here for f/u management of diabetes. He is on an Omnipod 5 with a G6 sensor and would like to change to a G7. 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 Dyslipidemia, hypertension, gastritis, sciatic pain, history of pancreatitis Micro and macrovascular complications: retinopathy, nephropathy, neuropathy, Dexcom average glucose: [164 ] Glucose Managment indicator 7.2 % TIme in range: 9 % very high (above 250) 23 % high ?(181-250) 66 % in range ?(70-180] 2 % low (69-55) 0 % ?very low (below 54) He is in auto mode 93% of the tongue Does not carry a sugar source Basal rate(s) (units/hour) : ?12 AM to 7 AM 1.25 units/hr? 7 AM to 12 AM 1.0 units /hr Bolus setting Insulin Carbohydrate Ratio (s) 12 AM to 12 AM? 1 unit:11gm? Correction Factor / Sensitivity Factor 12 AM to 12 AM? 1 unit / 60 mg/dL 12 AM to 7 AM??1 unit / 70 mg/dL 7 AM to 12 AM? 1 unit / 60 mg/dL Active Insulin Time:? 3 hours Target(s): 12 AM to 12 AM 120 mg/dL Symptoms reported:denies cramping Exercise: does some walking Concreting Supervisor - CDE education: currently Dental exam: goes every 6 months Ophthalmology evaluation: blind in both eyes [facility] Medical History Hypertensive urgency CKD (chronic kidney disease) stage 4, GFR 15-29 ml/min Hypertensive nephrosclerosis Diabetic gastroparesis Pancreatitis Vitamin D deficiency Hypocalcemia Background diabetic retinopathy associated with type 2 diabetes mellitus Diabetes type 1, uncontrolled Hemangioma of liver Legally blind Acid reflux Sciatica Gastritis Polyneuropathy Essential hypertension Hyperlipidemia LDL goal <70 Surgical History Hx of endoscopy Hx of circumcision Hx of appendectomy Hx of eye surgery Family History Father Diabetes mellitus Mother Diabetes mellitus Maternal Grandfather Diabetes mellitus Maternal Grandmother Diabetes mellitus Social History Household Members: Spouse Household Members Other:: and girlfriend Housing: Apartment Do you presently have visiting nurse or other home services: No Alcohol intake: never Comment: refusing fall risk interventions. Patient Tobacco Use Status: Former Tobacco user Second Hand Smoke Exposure: No Substance Use Type: Marijuana Advance Directives Date on File: 04/13/20 service: No Current occupational status: disabled Physical Exam Vital Signs: Last Vital Signs Pulse 94 09/23/23 15:04 BP 122/70 09/23/23 15:04 BMI result Body Mass Index 26.5 Const General: cooperative Nutritional Appearance: thin Eyes Other: eyelids partially obscuring pupil Neck Neck: Yes normal visual inspection Thyroid: Thyroid normal Resp Effort & Inspection: normal respiratory effort Cardio Jugular venous distension: no JVD Heart sounds: S1 normal heart sound present and S2 normal heart sound present Extrem Other: Visual exam of foot performed. No ulcerations or open lesions. No onchomycosis, no callouses. Sensation intact to monofilament exam. Vibratory sensation is slight diminished with 128 Hz tuning fork. Results AMB Hemoglobin A1c AMB Hemoglobin A1c 6.9 % Last Edit by GIL Licona on 09/23/23 15:22 Results Reviewed Results Reviewed: Laboratory Last Values Glucose (Clinic) 230 mg/dL (60-115) H 09/23/23 15:12 Hgb A1c (Clinic) 6.9 % (4.0-6.0) H 09/23/23 15:02 Assessment & Plan Assessment & Plan (1) Diabetes type 1, uncontrolled: Code(s): E10.65 - Type 1 diabetes mellitus with hyperglycemia Category: Medical Plan: Type 1 diabetic on an Omnipod 5 with G6. Recent download looks improved. Patient would like to change to a G7. No changes were made in pump settings today. Patient teaching: The patient was counseled to always carry a source of sugar and on the rule of 15's: Take 3 glucose tablets and repeat again in 15 minutes if blood sugar is not in normal range. Continue to repeat every 15 minutes until blood sugar is normal. The patient was counseled to achieve a target A1C of 7% (154 avg). Fasting blood sugars should be 90-130 in the morning and less than 180 two hours after meals. Reviewed the relationship between poor diabetic control and the developement of complications Symptoms of DKA were reviewed: early: frequent urination, dry mouth, ketones in the urine, severe symptoms: abdominal pain, nausea, vomiting and weakness. It is important to hydrate with sugar free liquids every 30 minutes and bring the sugars down to normal levels. High glucose protocol Insulin backup plan see med list for dose Orders: Orders AMB Hemoglobin A1c 09/23/23 E11.9 - Type 2 diabetes mellitus without complications Medications: New acetone (urine) test (Ketone Urine Test strips) Prn glucose over 250, nausea or vomiting, tid 25 ea 3RF E10.65 - Type 1 diabetes mellitus with hyperglycemia glucagon 3 mg/actuation (Baqsimi) P.R.N. for unresponsive hypoglycemia. Check to see if patient breathing and pulse, initiate CPR if needed. Call 911. Use when patient can not self treat low sugar. [place] once, position lying on the side, repeat again in 15 minutes. 3 mg intranasal BID 30 days PRN 2 ea 1RF P.R.N. for unresponsive hypoglycemia. Check to se E10.65 - Type 1 diabetes mellitus with hyperglycemia Changed From insulin glargine (Lantus Solostar U-100 Insulin) 10 units (0.1 mL) subcut DAILY 15 mL 4RF pump malfunction E10.65 - Type 1 diabetes mellitus with hyperglycemia To insulin glargine (Lantus Solostar U-100 Insulin) 22 units (0.22 mL) subcut DAILY 30 days PRN 6 mL 4RF pump malfunction MDD 22 units E10.65 - Type 1 diabet es mellitus with hyperglycemia From pen needle, diabetic (BD Ultra-Fine Shannan Pen Needle) As directed 50 ea E10.65 - Type 1 diabetes mellitus with hyperglycemia To pen needle, diabetic (BD Ultra-Fine Shannan Pen Needle) As directed prn pump failure up to 4 times daily 100 ea 3RF E10.65 - Type 1 diabetes mellitus with hyperglycemia Coding Level of Care Code Est Pt Level 5 (86435) Complex EM visit Add On G2211 Diagnoses Uncontrolled type 1 diabetes mellitus with hyperglycemia E10.65 Time Spent (min) 60 Comment Time spent reviewing labs/previous provider notes, face to face, chart documen tation
[2023-09-23 15:04] VITALS: BP 122/70; PULSE 94; BMI 26.5
[2023-09-23 15:17] LABS: Glucose, Whole Blood 230 mg/dL (60-115)
== END 2023-09-23 15:49 | disposition home or self-care (01) ==
PROVIDERS: PCP Internal Medicine Geriatric Medicine; Visit Provider Nurse Practitioner Adult Health
DX: E10.65 Type 1 diabetes mellitus with hyperglycemia (principal)
CPT/HCPCS: 99215

== ENCOUNTER → 2023-09-23 14:55 | Outpatient (BNVA) | payer MEDICAID, SELFPAY | PROVIDERS: PCP Internal Medicine Geriatric Medicine; Visit Provider Nurse Practitioner Adult Health | DX: Z46.81 Encounter for fitting and adjustment of insulin pump (principal); E10.65 Type 1 diabetes mellitus with hyperglycemia; Z79.4 Long term (current) use of insulin | CPT/HCPCS: 82947; 83036; 99212 ==

== ENCOUNTER 2023-09-24 14:51 | Outpatient (AMB) | payer MEDICAID, SELFPAY ==
--- NOTE | 2023-09-24 14:51 | HO.NEPHOV_ITS ---
Vital Signs 09/24/23 14:52 Height 5 ft 8 in Weight 176 lb BMI 26.8 BP 130/72 Blood Pressure Location Rt brachial Position Sitting Pulse 85 Pulse Source Pulse Oximeter Pulse Oximetry (%) 96 Oxygen Delivery Method Room Air Intake Visit Reasons: CKD/ Conf Steel Erecting Pusher Required: Yes Steel Erecting Pusher Name: Jimenez [id number] Accompanied by: Spouse Allergies gluten Allergy (Verified 09/24/23 14:54) Gastrointestinal Upset losartan Allergy (Verified 09/24/23 14:54) Gastrointestinal Upset valsartan Adverse Reaction (Unknown, Verified 09/24/23 14:54) GI problems Medication List - Last Reconciled 09/24/23 by Onur Bejarano MD atorvastatin 80 mg PO DAILY calcitriol 0.5 mcg PO DAILY ezetimibe (Zetia) 10 mg PO DAILY 90 days furosemide 20 mg PO DAILY PRN gabapentin 300 mg PO BEDTIME hydralazine 100 mg PO TID insulin aspart U-100 infuse up to 70 units via insulin pump subcutaneously 3 times a day; insulin glargine (Lantus Solostar U-100 Insulin) 10 units (0.1 mL) subcut DAILY insulin pump cart,auto,BT-cntr (Omnipod 5 G6 Intro Kit (Gen 5) subcutaneous cartridge with controller) As directed insulin pump cart,automated,BT (Omnipod 5 G6 Pods (Gen 5) subcutaneous cartridge) CHANGE POD EVERY 72 HOURS DIRECTED metoprolol succinate ER 50 mg PO DAILY metoprolol succinate ER 100 mg PO DAILY nifedipine ER 30 mg PO QAM nortriptyline 50 mg PO BEDTIME omeprazole 40 mg PO DAILY@0630 pen needle, diabetic (BD Ultra-Fine Shannan Pen Needle) As directed tamsulosin 0.4 mg PO QPM HPI Comments Details: 37-year-old man with type 1 diabetes mellitus and advanced CKD. He has underlying diabetic nephropathy. He was accompanied by his caregiver. Interpretation service was used. Today he has no new complaints. He is compliant with his medication. Blood sugar seems to be well controlled at home. Has AVF in left forearm- about 2 months old. Not mature yet Created by -VAscular on 06/14/23 [facility], [facility] Medical History Hypertensive urgency CKD (chronic kidney disease) stage 4, GFR 15-29 ml/min Hypertensive nephrosclerosis Diabetic gastroparesis Pancreatitis Vitamin D deficiency Hypocalcemia Background diabetic retinopathy associated with type 2 diabetes mellitus Diabetes type 1, uncontrolled Hemangioma of liver Legally blind Acid reflux Sciatica Gastritis Polyneuropathy Essential hypertension Hyperlipidemia LDL goal <70 Surgical History Hx of endoscopy Hx of circumcision Hx of appendectomy Hx of eye surgery Family History Father Diabetes mellitus Mother Diabetes mellitus Maternal Grandfather Diabetes mellitus Maternal Grandmother Diabetes mellitus Social History Household Members: Spouse Household Members Other:: and girlfriend Housing: Apartment Do you presently have visiting nurse or other home services: No Alcohol intake: never Comment: refusing fall risk interventions. Patient Tobacco Use Status: Former Tobacco user Second Hand Smoke Exposure: No Substance Use Type: Marijuana Advance Directives Date on File: 04/13/20 service: No Current occupational status: disabled Physical Exam Vital Signs: Last Vital Signs Pulse 85 09/24/23 14:52 BP 130/72 09/24/23 14:52 Pulse Ox 96 09/24/23 14:52 Oxygen Delivery Method Room Air 09/24/23 14:52 BMI result Body Mass Index 26.8 Const Other: Legally blind General: comfortable Nutritional Appearance: well nourished Orientation/consciousness: patient oriented x3 HEENT Head: No normal to inspection Mouth: moist mucous membranes Neck Neck: Yes supple and Yes no JVD Resp Auscultation: clear to auscultation bilaterally, no rales and rub present Cardio Jugular venous distension: no JVD Palpation: no palpable S3 and no palpable S4 Heart sounds: no rubs GI Palpation (GI): Soft to palpation and nontender Percussion: No Fluid wave present General: Yes no CVA tenderness Back/Spine/Pelvis Back: no CVA tenderness Skin General skin exam: no rashes or lesions noted Neuro General: patient oriented x3 Extrem General: Yes no pedal edema and No clubbing Results Reviewed Nephrology Results: Hgb 12.0 g/dl (14.0-18.0) L 08/04/23 WBC 8.1 X10*3/uL (4.8-10.8) 08/04/23 Plt Count 189 X10*3/uL (160-400) 08/04/23 Sodium 141 mmol/L (135-145) 08/04/23 Potassium 4.8 mmol/L (3.3-5.1) 08/04/23 Chloride 108 mmol/L (96-108) 08/04/23 Carbon Dioxide 26 mmol/L (22-29) 08/04/23 BUN 50 mg/dL (9-16) H 08/04/23 Creatinine 5.22 mg/dL (0.5-1.4) H* 08/04/23 Calcium 8.8 mg/dL (8.4-10.2) 08/04/23 Phosphorus 4.2 mg/dL (2.7-4.5) 08/04/23 PTH Intact 459.9 pg/mL (8.7-77.1) H 08/04/23 Urine Protein 300 (3+) mg/dL (Neg-Trace) H 08/04/23 Assessment & Plan Assessment & Plan (1) Diabetes type 1, uncontrolled: Code(s): E10.65 - Type 1 diabetes mellitus with hyperglycemia Category: Medical (2) 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 Renal function stable at baseline. No signs or symptoms of uremia. Fluid status is acceptable. Goal is to slow the portion disease. Current continue with current regimen. Maintain blood pressure less than 130/80 and A1c less than 7%. Continue overt nephrotoxic agents. He is being evaluated by [facility] transplant service for preemptive transplantation He has on the active list Resistant hypertension blood pressure well controlled I have encouraged him to stay on low-sodium diet. No changes were made. He is mild anemia no indication for Epogen yet. SHPT: On calcitriol AVFistula: Created on 06/05/23; Not ready for use. Needs revision before it can be accessed Orders: Orders Complete Blood Count Auto Diff 8 Weeks E10.22 - Type 1 diabetes mellitus with diabetic chronic kidney disease, N18.5 - Chronic kidney disease, stage 5 Basic Metabolic Panel 8 Weeks E10.22 - Type 1 diabetes mellitus with diabetic chronic kidney disease, N18.5 - Chronic kidney disease, stage 5 Parathyroid Hormone Intact 8 Weeks E10.22 - Type 1 diabetes mellitus with diabetic chronic kidney disease, N18.5 - Chronic kidney disease, stage 5 Coding Level of Care Code Est Pt Level 4 (87978) Diagnoses Uncontrolled type 1 diabetes mellitus with hyperglycemia E10.65 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 E10.22; N18.5
[2023-09-24 14:52] VITALS: BP 130/72; PULSE 85; O2SAT 96; BMI 26.8
== END 2023-09-24 15:11 | disposition home or self-care (01) ==
PROVIDERS: PCP Internal Medicine Geriatric Medicine; Visit Provider Internal Medicine Hypertension Specialist
DX: E10.65 Type 1 diabetes mellitus with hyperglycemia (principal); E10.22 Type 1 diabetes mellitus with diabetic chronic kidney disease; N18.5 Chronic kidney disease, stage 5
CPT/HCPCS: 99214

== ENCOUNTER → 2023-09-24 14:51 | Outpatient (BNVA) | payer MEDICAID, SELFPAY | PROVIDERS: PCP Internal Medicine Geriatric Medicine; Visit Provider Internal Medicine Hypertension Specialist | DX: E10.65 Type 1 diabetes mellitus with hyperglycemia (principal); E10.21 Type 1 diabetes mellitus with diabetic nephropathy; E10.22 Type 1 diabetes mellitus with diabetic chronic kidney disease; I13.10 Hypertensive heart and chronic kidney disease without heart failure, with stage 1 through stage 4 chronic kidney disease, or unspecified chronic kidney disease; N18.5 Chronic kidney disease, stage 5; Z96.41 Presence of insulin pump (external) (internal) | CPT/HCPCS: 99212 ==

== ENCOUNTER 2023-10-08 09:57 | Outpatient (REF) | payer MEDICAID, SELFPAY ==
[2023-10-08 12:02] LABS: Anion Gap 13 (12-20); Blood Urea Nitrogen 52 mg/dL (9-16); Calcium 9.5 mg/dL (8.4-10.2); Carbon Dioxide 28 mmol/L (22-29); Chloride 106 mmol/L (96-108); Glucose Random 98 mg/dL (60-115); Potassium 3.7 mmol/L (3.3-5.1); Sodium 143 mmol/L (135-145)
[2023-10-08 12:44] LABS: Estimated Glomerular Filt Rate 11
== END 2023-10-08 09:58 | disposition home or self-care (01) ==
LOC: HO.LAB 09:57
PROVIDERS: PCP Internal Medicine Geriatric Medicine; Visit Provider Internal Medicine Hypertension Specialist
DX: E10.22 Type 1 diabetes mellitus with diabetic chronic kidney disease (principal); N18.5 Chronic kidney disease, stage 5
CPT/HCPCS: 36415; 80048

== ENCOUNTER 2023-10-14 15:40 | Outpatient (AMB) | payer MEDICAID, SELFPAY ==
--- NOTE | 2023-10-14 16:09 | A.OFFVIS_ITS ---
Intake Intake Visit Reasons: CGM-confirmed Courtroom Reporter Required: Yes Courtroom Reporter Language: Noodle Maker Name: James [facility] Accompanied by: Spouse Allergies gluten Allergy (Verified 09/24/23 14:54) Gastrointestinal Upset losartan Allergy (Verified 09/24/23 14:54) Gastrointestinal Upset valsartan Adverse Reaction (Unknown, Verified 09/24/23 14:54) GI problems HPI Comprehensive Diabetes Asmnt Most Recent Diabetes Results: Creatinine 5.64 mg/dL (0.5-1.4) H* 10/08/23 Blood Urea Nitrogen 52 mg/dL (9-16) H 10/08/23 Sodium 143 mmol/L (135-145) 10/08/23 Potassium 3.7 mmol/L (3.3-5.1) 10/08/23 Chloride 106 mmol/L (96-108) 10/08/23 Carbon Dioxide 28 mmol/L (22-29) 10/08/23 Calcium 9.5 mg/dL (8.4-10.2) 10/08/23 AST 21 U/L (5-37) 08/04/23 ALT 72 U/L (0-40) H 08/04/23 Total Protein 6.8 g/dL (6.5-8.0) 08/04/23 Albumin 3.9 g/dL (3.5-5.0) 08/04/23 [facility] Medical History Hypertensive urgency CKD (chronic kidney disease) stage 4, GFR 15-29 ml/min Hypertensive nephrosclerosis Diabetic gastroparesis Pancreatitis Vitamin D deficiency Hypocalcemia Background diabetic retinopathy associated with type 2 diabetes mellitus Diabetes type 1, uncontrolled Hemangioma of liver Legally blind Acid reflux Sciatica Gastritis Polyneuropathy Essential hypertension Hyperlipidemia LDL goal <70 Surgical History Hx of endoscopy Hx of circumcision Hx of appendectomy Hx of eye surgery Family History Father Diabetes mellitus Mother Diabetes mellitus Maternal Grandfather Diabetes mellitus Maternal Grandmother Diabetes mellitus Social History Household Members: Spouse Household Members Other:: and girlfriend Housing: Apartment Do you presently have visiting nurse or other home services: No Alcohol intake: never Comment: refusing fall risk interventions. Patient Tobacco Use Status: Former Tobacco user Second Hand Smoke Exposure: No Substance Use Type: Marijuana Advance Directives Date on File: 04/13/20 service: No Current occupational status: disabled Assessment & Plan Assessment & Plan (1) Diabetes type 1, uncontrolled: Code(s): E10.65 - Type 1 diabetes mellitus with hyperglycemia Plan: Patient at visit to upgrade Omnipod 5 to Dexcom G7, patient was given Dexcom G7 sensor at last visit with provider. In addition PA for Dexcom G7 sensors was submitted. Explained to patient at this time he will not be able to upgrade to Dexcom G7, because pharmacy is still providing him with Dexcom G6 pods. Once local pharmacies start receiving Dexcom G7 pods we will be able to upgrade his sensor to Dexcom G7 Patient was given 1 month supply the Dexcom G6 sensors in order to continue insulin pump therapy. Message was sent to prior authorization team to resubmit a PA for Dexcom G6 sensor until patient can transition over to Dexcom G7 and Omnipod Dexcom G7 pods. Instructed patient to contact clinical trial educator when he receives Omnipod 5 pods compatible with Dexcom G7 Coding Level of Care Code Est Pt Level 1 (16290) Diagnoses Uncontrolled type 1 diabetes mellitus with hyperglycemia E10.65
== END 2023-10-14 16:37 | disposition home or self-care (01) ==
PROVIDERS: PCP Internal Medicine Geriatric Medicine; Visit Provider Registered Nurse Diabetes Educator
DX: E10.65 Type 1 diabetes mellitus with hyperglycemia (principal)

== ENCOUNTER → 2023-10-14 15:40 | Outpatient (BNVA) | payer MEDICAID, SELFPAY | PROVIDERS: PCP Internal Medicine Geriatric Medicine; Visit Provider Registered Nurse Diabetes Educator | DX: E10.65 Type 1 diabetes mellitus with hyperglycemia (principal); E10.22 Type 1 diabetes mellitus with diabetic chronic kidney disease; N18.4 Chronic kidney disease, stage 4 (severe) | CPT/HCPCS: 99211 ==

== ENCOUNTER 2023-10-29 23:30 | Emergency (ER) | payer MEDICAID, SELFPAY ==
--- NOTE | 2023-10-29 | ECG_ITS ---
Test Reason : CP Blood Pressure : / mmHG Vent. Rate : 100 BPM Atrial Rate : 100 BPM P-R Int : 140 ms QRS Dur : 086 ms QT Int : 364 ms P-R-T Axes : 063 070 054 degrees QTc Int : 469 ms Normal sinus rhythm Normal ECG When compared with ECG of 10-FEB-2023 19:28, No significant change was found Referred By: Generic ED Physician Electronically Signed By:RAFFAELE MILLER
--- NOTE | ~2023-10-29 | XR_ITS ---
EXAMINATION: XR PORTABLE CHEST CLINICAL INFORMATION: Chest pain. COMPARISON: 08/30/2023 TECHNIQUE: AP portable upright view of the chest FINDINGS: Lungs are clear. No consolidation, pneumothorax, or pleural effusion. Cardiac and mediastinal contours are normal. Pulmonary vasculature is unremarkable. Osseous structures are unremarkable. XR/XR chest 1V IMPRESSION: No acute cardiopulmonary findings Electronically signed by: Josias Amin MD 10/30/2023 12:51 AM EDT
--- NOTE | ~2023-10-29 | CT_ITS ---
EXAMINATION: CT ABDOMEN AND PELVIS WITHOUT CONTRAST CLINICAL INFORMATION: Reason for Exam left sided abdo pain in type 1 diabetic COMPARISON: 02/10/2023 TECHNIQUE: Multidetector volumetric imaging was performed from the superior aspect of the liver through the pubic symphysis. Sagittal and coronal reformatted images were obtained on the technologist's workstation. This CT examination was performed using dose optimization techniques as appropriate, variously including the following: *Automated exposure control *Adjustment of mA and/or kV according to patient size (this includes techniques or standardized protocols for targeted exams where dose is matched to indication/reason for exam; i.e. extremities or head) *Use of iterative reconstruction technique DLP: 491 mGy-cm FINDINGS: LUNG BASES: The visualized lung bases are unremarkable. LIVER, GALLBLADDER, AND BILIARY TREE: The liver is normal in size, shape, and attenuation. No focal hepatic lesion or biliary ductal dilatation is identified on this noncontrast exam. The gallbladder is unremarkable with no evidence of radiopaque gallstones, gallbladder wall thickening, or obvious pericholecystic inflammatory changes. PANCREAS: Mildly atrophic. SPLEEN: Tiny calcified granuloma. ADRENAL GLANDS: Unremarkable. KIDNEYS AND URETERS: No hydronephrosis or obstructing calculus bilaterally. Nonspecific bilateral perinephric stranding. BLADDER: Unremarkable. GASTROINTESTINAL TRACT: No evidence of bowel obstruction. Limited evaluation for wall thickening in much of the colon due to luminal collapse. The possibility of a mild colitis would be difficult to exclude, as there does appear to be some mural prominence in these regions. No free fluid or free air is seen. ABDOMINAL WALL: No significant hernia is appreciated. LYMPH NODES: Scattered mesenteric and retroperitoneal subcentimeter lymph nodes are present, a few of which are near the upper limits of normal in size similar to prior. VASCULAR: Calcification is noted along the bilateral internal iliac artery branches and included femoral arteries. PELVIC VISCERA: Unremarkable. OSSEOUS STRUCTURES: Unremarkable. CT/CT abdomen pelvis wo IV con IMPRESSION: Limited evaluation for wall thickening in much of the colon due to luminal collapse. The possibility of a mild colitis would be difficult to exclude, however, as there does appear to be some mural prominence of these regions. Otherwise, no additional acute findings identified in the abdomen/pelvis. Electronically signed by: Shaw Arce MD 10/30/2023 04:27 AM EDT
[2023-10-29 23:36] VITALS: BP 190/106; PULSE 102; O2SAT 97
[2023-10-29 23:45] VITALS: BP 205/109; PULSE 103; RESP 18; TEMP 36.9; O2SAT 96; BMI 26.0
--- NOTE | 2023-10-30 | PC.NURSE ---
MD Mcdowell aware of bp and heart rate.
[2023-10-30 00:05] LABS: MANUAL DIFF FLAG NO
[2023-10-30 00:13] LABS: Basophils Percent Auto 0.2 % (0-2); Eosinophils Percent Auto 0.1 % (0-4); Hematocrit 40.5 % (42.0-52.0); Hemoglobin 13.9 g/dl (14.0-18.0); Imm Gran Abs Auto 0.05 X10*3/uL (0.00-0.03); Imm Gran Pct Auto 0.3 % (0.0-0.4); Lymphocytes Percent Auto 6.5 % (20-40); Mean Corpuscular HGB Conc 34.3 g/dl (31.0-36.0); Mean Corpuscular Hemoglobin 29.8 pg (27.0-33.0); Mean Corpuscular Volume 86.9 fL (80.0-98.0); Mean Platelet Volume 9.6 fL (9.4-12.4); Monocytes Absolute Auto 0.5 X10*3/uL (0.1-1.2); Monocytes Percent Auto 3.7 % (2-11); Neutrophils Absolute Auto 13.1 x10*3/uL (2.0-8.3); Neutrophils Percent Auto 89.2 % (45-73); Platelet Count 218 X10*3/uL (160-400); Red Blood Count 4.66 X10*6/uL (4.60-5.80); White Blood Count 14.7 X10*3/uL (4.8-10.8)
[2023-10-30 00:24] LABS: Alanine Aminotransferase 20 U/L (0-40); Albumin Level 4.7 g/dL (3.5-5.0); Alkaline Phosphatase 83 U/L (39-117); Anion Gap 22 (12-20); Aspartate Amino Transferase 19 U/L (5-37); Bilirubin Total 0.5 mg/dL (0.0-1.0); Blood Urea Nitrogen 56 mg/dL (9-16); Calcium 10.7 mg/dL (8.4-10.2); Carbon Dioxide 23 mmol/L (22-29); Chloride 101 mmol/L (96-108); Estimated Glomerular Filt Rate 10; Glucose Random 223 mg/dL (60-115); Lipase 14 U/L (8-78); Potassium 4.7 mmol/L (3.3-5.1); Sodium 141 mmol/L (135-145); Total Protein 8.5 g/dL (6.5-8.0)
[2023-10-30 00:25] LABS: Troponin-I High Sensitivity 3.9 ng/L (<3.5-35.0)
--- NOTE | 2023-10-30 00:37 | PC.NURSE ---
critical cratinine notified to
--- NOTE | 2023-10-30 00:41 | ED.CHESTPAIN ---
HPI - Chest Pain General Chief Complaint: Chest Pain Stated Complaint: cp htn abd pain Time Seen by Provider: 10/30/23 00:41 History of Present Illness ED Provider: Jorge DE LA CRUZ narrative: The patient is a 38-year-old male with a history of type 1 diabetes who comes to the emergency room complaining of left-sided abdominal pain. Says that the symptoms began in the middle of the day. He has pain, nausea, vomiting. He does not think he has had a fever. He has an attached glucose monitor and he also has an attached insulin pump. Says that his blood sugar reading at home earlier today was high. He does not think he has had a fever. He says that his blood pressures are usually high. He has a dialysis shunt in his left arm but he has not yet started dialysis. He still makes urine. Related Data Home Medications ?Medication ?Instructions ?Recorded ?Confirmed omeprazole 40 mg capsule,delayed 40 mg PO DAILY@0630 01/04/20 09/24/23 release metoprolol succinate 50 mg 50 mg PO DAILY 07/29/21 09/24/23 tablet,extended release 24 hr gabapentin 300 mg capsule 300 mg PO BEDTIME 05/13/22 09/24/23 hydralazine 100 mg tablet 100 mg PO TID 05/13/22 09/24/23 metoprolol succinate 100 mg 100 mg PO DAILY 02/10/23 09/24/23 tablet,extended release 24 hr nifedipine 30 mg tablet,extended 30 mg PO QAM 02/10/23 09/24/23 release 24 hr furosemide 20 mg tablet 20 mg PO DAILY PRN 03/09/23 09/24/23 nortriptyline 50 mg capsule 50 mg PO BEDTIME 03/09/23 09/24/23 tamsulosin 0.4 mg capsule 0.4 mg PO QPM 08/04/23 09/24/23 Previous Rx's ?Medication ?Instructions ?Recorded atorvastatin 80 mg tablet 80 mg PO DAILY #30 tabs 12/12/20 ezetimibe 10 mg tablet (Zetia) 10 mg PO DAILY 90 days #90 tabs 07/05/21 insulin pump cartridge,automated #1 ea 02/19/22 dose,BT with controller subcutaneous (Omnipod 5 G6 Intro Kit (Gen 5) subcutaneous cartridge with controller) insulin aspart U-100 100 unit/mL See Rx Instructions subcut TID #20 07/15/23 subcutaneous solution mL calcitriol 0.5 mcg capsule 0.5 mcg PO DAILY #90 caps 08/19/23 acetone (urine) test (Ketone Urine #25 ea 09/25/23 Test strips) insulin glargine 100 unit/mL (3 22 unit (0.22 mL) subcut DAILY PRN 09/25/23 mL) subcutaneous pen (Lantus pump malfunction 30 days #6 mL Solostar U-100 Insulin) pen needle, diabetic 32 gauge x #100 ea 09/25/23 (BD Ultra-Fine Shannan Pen Needle) glucagon 3 mg/actuation nasal 3 mg intranasal .prn Nonresponsive 10/23/23 spray (Baqsimi) hypoglycemia 30 days #2 ea insulin pump cart,automated,BT #10 ea 10/23/23 (Omnipod 5 G6 Pods (Gen 5) subcutaneous cartridge) Allergies Allergy/AdvReac Type Severity Reaction Status Date / Time gluten Allergy Gastrointestinal Verified 10/31/23 15:51 Upset losartan Allergy Gastrointestinal Verified 10/31/23 15:51 Upset valsartan AdvReac Unknown GI problems Verified 10/31/23 15:51 Review of Systems Review of Systems: Yes all other systems are reviewed and are negative [facility] Past Medical History Medical History Hypertensive urgency CKD (chronic kidney disease) stage 4, GFR 15-29 ml/min Hypertensive nephrosclerosis Diabetic gastroparesis Pancreatitis Vitamin D deficiency Hypocalcemia Background diabetic retinopathy associated with type 2 diabetes mellitus Diabetes type 1, uncontrolled Hemangioma of liver Legally blind Acid reflux Sciatica Gastritis Polyneuropathy Essential hypertension Hyperlipidemia LDL goal <70 Surgical History Hx of endoscopy Hx of circumcision Hx of appendectomy Hx of eye surgery Family History Family History Father Diabetes mellitus Mother Diabetes mellitus Maternal Grandfather Diabetes mellitus Maternal Grandmother Diabetes mellitus Social History Social History Household Members: Spouse Household Members Other:: and girlfriend Housing: Apartment Do you presently have visiting nurse or other home services: No Alcohol intake: never Comment: refusing fall risk interventions. Patient Tobacco Use Status: Former Tobacco user Second Hand Smoke Exposure: No Substance Use Type: Marijuana Advance Directives Date on File: 04/13/20 service: No Current occupational status: disabled Physical Exam Vital Signs: Vital Signs: Last Vital Signs Temp 98.3 F 10/30/23 07:32 Pulse 110 H 10/30/23 07:32 Resp 16 10/30/23 07:32 BP 152/80 H 10/30/23 07:32 Pulse Ox 95 10/30/23 07:32 O2 Del Method Room Air 10/30/23 07:32 BMI result Body Mass Index 26.0 Const: Other: The patient is a muscular but chronically ill-appearing person. He is awake and alert. He seemed somewhat uncomfortable and mildly restless. HEENT: Other: The face is symmetrical. Mucous membranes not obviously dry. Eyes: Other: The patient's eyes are somewhat dysconjugate and eyes appears cloudy. Neck: Neck: Yes full ROM and Yes no JVD Resp: Other: No Kussmaul breathing Effort & Inspection: normal respiratory effort Auscultation: clear to auscultation bilaterally Cardio: Rate: tachycardic Rhythm: regular rhythm Heart sounds: S1 normal heart sound present and S2 normal heart sound present GI: Other: mild diffuse left-sided abdominal tenderness without rebound. Skin: Other: Skin is pale and dry Neuro: Other: the patient is awake and alert. He was interviewed with a Ukrainian english as a second language instructor. Mental status seemed clear. The patient has poor vision the cranial nerves seem otherwise intact. He moves his extremities symmetrically. Extrem: Other: Patient has a palpable thrill in the region of the left forearm where I believe he has a dialysis shunt that has not been used yet. Extremities are otherwise unremarkable without edema. Medications Administered Discontinued Medications Generic Name Dose Route Start Last Admin Trade Name Freq PRN Reason Stop Dose Admin Droperidol 1.25 mg 10/30/23 01:00 10/30/23 01:12 Droperidol 5 Mg/2 Ml Vial IVPUSH 10/30/23 01:01 1.25 mg ONCE ONE Administration Lactated Ringer's 1,000 mls @ 999 mls/hr 10/30/23 01:15 10/30/23 04:29 Lr IV 10/30/23 02:15 Infused .Q1H1M OKSANA Infusion Lactated Ringer's 1,000 mls @ 999 mls/hr 10/30/23 02:45 10/30/23 06:03 Lr IV 10/30/23 03:45 Infused .Q1H1M OKSANA Infusion Lactated Ringer's 1,000 mls @ 999 mls/hr 10/30/23 05:15 10/30/23 07:11 Lr IV 10/30/23 06:15 Infused .Q1H1M OKSANA Infusion Morphine Sulfate 4 mg 10/30/23 01:00 10/30/23 01:12 Morphine Sulfate 4 Mg/Ml Cartridge IVPUSH 10/30/23 01:01 4 mg ONCE ONE Administration Protocol Medical Decision Making Medical Decision Making [facility] Narrative: Patient is very chronically ill 38-year-old with type 1 diabetes, significant hypertension, and significant chronic renal insufficiency. he has an insulin pump which seems to be active. He also has a Dexcom device for glucose monitoring.He is not yet on dialysis although he has a dialysis shunt in his left forearm. He presents complaining of abdominal pain and nausea. He is hypertensive. He looks uncomfortable and was treated symptomatically with 4 mg of IV morphine and 1.25 mg of IV droperidol. He was also given 3 L of lactated Ringer's. He was observed for several hours. He felt much better. His blood pressure improved. He remained mildly tachycardic. Review his labs show slight worsening of his chronic renal failure. He has a mild anion gap but I think this is probably explained by his elevated BUN rather than DKA. His beta hydroxybutyrate was mildly elevated but his serum bicarb was normal and his urinalysis had only trace ketones. The patient uses marijuana. I have some suspicion that he might have symptoms related to marijuana use. The patient felt considerably better after treatment and seemed eager for discharge. He should follow up with his regular doctors especially his unit nurse. Lab Data 10/29/23 23:59 10/29/23 23:59 Labs: Lab Results 10/29/23 10/30/23 10/30/23 Range/Units 23:59 07:14 07:21 WBC 14.7 H (4.8-10.8) X10*3/uL RBC 4.66 (4.60-5.80) X10*6/uL Hgb 13.9 L (14.0-18.0) g/dl Hct 40.5 L (42.0-52.0) % MCV 86.9 (80.0-98.0) fL MCH 29.8 (27.0-33.0) pg MCHC 34.3 (31.0-36.0) g/dl RDW 12.0 (11.0-16.0) % Plt Count 218 (160-400) X10*3/uL MPV 9.6 (9.4-12.4) fL Immature Gran % (Auto) 0.3 (0.0-0.4) % Neut % (Auto) 89.2 H (45-73) % Lymph % (Auto) 6.5 L (20-40) % [place] % (Auto) 3.7 (2-11) % Eos % (Auto) 0.1 (0-4) % Baso % (Auto) 0.2 (0-2) % Lymph # (Auto) 1.0 L (1.2-4.9) X10*3/uL [place] # (Auto) 0.5 (0.1-1.2) X10*3/uL Eos # (Auto) 0.0 (0.0-0.4) X10*3/uL Baso # (Auto) 0.0 (0.0-0.2) X10*3/uL Abs Immat Gran (auto) 0.05 H (0.00-0.03) X10*3/uL Absolute Neuts (auto) 13.1 H (2.0-8.3) x10*3/uL Absolute Nucleated RBC 0.000 (0.0-0.012) X10*3/uL Nucleated RBC % (auto) 0.0 (0.0-0.2) /100WBC Sodium 141 (135-145) mmol/L Potassium 4.7 D (3.3-5.1) mmol/L Chloride 101 (96-108) mmol/L Carbon Dioxide 23 (22-29) mmol/L Anion Gap 22 H (12-20) BUN 56 H (9-16) mg/dL Creatinine 6.36 H* (0.5-1.4) mg/dL Estim Creat Clear Calc 15.0 Estimated GFR 10 POC Glucose 180 H (60-115) mg/dL Random Glucose 223 H (60-115) mg/dL Calcium 10.7 H D (8.4-10.2) mg/dL Total Bilirubin 0.5 (0.0-1.0) mg/dL AST 19 (5-37) U/L ALT 20 (0-40) U/L Alkaline Phosphatase 83 (39-117) U/L Troponin I High Sens 3.9 (<3.5-35.0) ng/L Total Protein 8.5 H (6.5-8.0) g/dL Albumin 4.7 (3.5-5.0) g/dL Lipase 14 (8-78) U/L Beta-Hydroxybutyrate 1.61 H (0.02-0.27) mmol/L Urine Color Yellow Urine Appearance Clear Urine pH 5.5 (5.0-9.0) Ur Specific [place] 1.015 (1.005-1.025) Urine Protein 300 (3+) H (Neg-Trace) mg/dL Urine Glucose (UA) 500 H (Negative) mg/dL Urine Ketones Trace (Negative) mg/dL Urine Blood Negative (Negative) Urine Nitrite Negative (Negative) Ur Leukocyte Esterase Negative (Negative) Urine RBC 0-2 (0-2) /HPF Urine WBC 0-5 (0-5) /HPF Ur Squamous Epith Cells 0-2 (0-2) /HPF Urine Bacteria None Seen (None Seen) Hyaline Casts 0-2 (0-2) /LPF Discharge Plan Discharge Clinical Impression: Abdominal pain, Type 1 diabetes mellitus, Chronic kidney insufficiency Patient Disposition: Home, Self-Care Additional Instructions: Please continue your usual medications. Please follow-up soon with your kidney doctor, Dr. Bejarano, and with your regular doctor. If you feel significantly worse please return to the emergency room for additional investigation and treatment. Prescriptions: No Action atorvastatin 80 mg tablet 80 mg PO DAILY Qty: 30 6RF ezetimibe [Zetia] 10 mg tablet 10 mg PO DAILY 90 Days Qty: 90 1RF (DME) Omnipod 5 G6 Intro Kit (Gen 5) Cartridge See Rx Instructions .Route Qty: 1 4RF Rx Instructions: As directed insulin aspart U-100 100 unit/mL solution See Rx Instructions subcut TID Qty: 20 5RF Rx Instructions: infuse up to 70 units via insulin pump subcutaneously 3 times a day; calcitriol 0.5 mcg capsule 0.5 mcg PO DAILY Qty: 90 3RF Baqsimi 3 mg/actuation spray,non-aerosol 3 mg intranasal .prn MDD 6mg 30 Days Qty: 2 1RF Rx Instructions: Unresponsive hypoglycemia may repeat in 15 minutes (DME) Omnipod 5 G6 Pods (Gen 5) Cartridge See Rx Instructions .ROUTE .COMPLEX Qty: 10 11RF Dose Instruction: CHANGE POD EVERY 72 HOURS DIRECTED Rx Instructions: CHANGE POD EVERY 72 HOURS DIRECTED metoprolol succinate 50 mg tablet extended release 24 hr 50 mg PO DAILY Rx Instructions: take with the 100mg furosemide 20 mg tablet 20 mg PO DAILY PRN metoprolol succinate 100 mg tablet extended release 24 hr 100 mg PO DAILY Rx Instructions: take with the 50mg nifedipine 30 mg tablet extended release 24hr 30 mg PO QAM omeprazole 40 mg capsule,delayed release(DR/EC) 40 mg PO DAILY@0630 gabapentin 300 mg capsule 300 mg PO BEDTIME hydralazine 100 mg tablet 100 mg PO TID nortriptyline 50 mg capsule 50 mg PO BEDTIME tamsulosin 0.4 mg capsule 0.4 mg PO QPM insulin glargine [Lantus Solostar U-100 Insulin] 100 unit/mL (3 mL) insulin pen 22 unit subcut DAILY MDD 22 units PRN (Reason: pump malfunction) 30 Days Qty: 6 4RF (DME) pen needle, diabetic [BD Ultra-Fine Shannan Pen Needle] 32 gauge x 5/32 needle See Rx Instructions .ROUTE QID Qty: 100 3RF Rx Instructions: As directed prn pump failure up to 4 times daily (DME) Ketone Urine Test Strip See Rx Instructions .ROUTE .MEDSUPPLY Qty: 25 3RF Rx Instructions: Prn glucose over 250, nausea or vomiting, tid Referrals: [facility] [Provider Group] Onur Bejarano MD [Physician] - (worsening chronic renal insufficiency) Interventions: ED Discharge Assessment Last Done: 10/30/23 07:32 Discharge Date/Time: 10/30/23 07:36 Print Language: Ukrainian
[2023-10-30] MEDS: droPERidol 5 MG/2 ML VIAL 1.25 MG IVPUSH (01:12)
[2023-10-30] MEDS: Morphine Sulfate 4 MG/ML CARTRIDGE IVPUSH (01:12)
[2023-10-30] MEDS: Lactated Ringers 1,000 ML 999 ML IV ×3 (01:15→06:03)
[2023-10-30 02:17] LABS: Beta-Hydroxybutyrate 1.61 mmol/L (0.02-0.27)
[2023-10-30 02:58] VITALS: BP 160/86; PULSE 110; RESP 17; TEMP 36.7; O2SAT 96
--- NOTE | 2023-10-30 03:00 | PC.NURSE ---
MD Patel aware of BP and heart rate.
[2023-10-30 06:04] VITALS: BP 177/104; PULSE 121; RESP 16; O2SAT 95
[2023-10-30 06:29] VITALS: TEMP 36.9
[2023-10-30 07:11] VITALS: BP 152/80; PULSE 110; RESP 16; TEMP 36.8; O2SAT 95
[2023-10-30 07:26] LABS: Glucose, Whole Blood 180 mg/dL (60-115)
[2023-10-30 07:32] VITALS: BP 152/80; PULSE 110; RESP 16; TEMP 36.8; O2SAT 95
[2023-10-30 07:32] LABS: Appearance Urine Clear; Color Urine Yellow; Glucose Urine UA 500 mg/dL (Negative); Leukocyte Esterase Urine Negative (Negative); Nitrite Urine Negative (Negative); PH 5.5 (5.0-9.0); Specific Gravity - Urine 1.015 (1.005-1.025); UMIC TRIGGER UACC YES; Urine Blood Negative (Negative); Urine Ketones Trace mg/dL (Negative); Urine Protein 300 (3+) mg/dL (Neg-Trace)
[2023-10-30 07:48] LABS: Bacteria Urine None Seen (None Seen); Hyaline Casts Urine 0-2 /LPF (0-2); RBC Urine 0-2 /HPF (0-2); Squamous Epithelial Cell Urine 0-2 /HPF (0-2); WBC Urine 0-5 /HPF (0-5)
== END 2023-10-30 07:36 | disposition home or self-care (01) ==
PROVIDERS: Emergency Provider Emergency Medicine
DX: R10.9 Unspecified abdominal pain (principal); E10.22 Type 1 diabetes mellitus with diabetic chronic kidney disease; I12.9 Hypertensive chronic kidney disease with stage 1 through stage 4 chronic kidney disease, or unspecified chronic kidney disease; N18.4 Chronic kidney disease, stage 4 (severe); Z79.4 Long term (current) use of insulin; Z96.41 Presence of insulin pump (external) (internal); E78.5 Hyperlipidemia, unspecified; Z87.891 Personal history of nicotine dependence; Z79.02 Long term (current) use of antithrombotics/antiplatelets; Z79.899 Other long term (current) drug therapy
CPT/HCPCS: 36415; 71045; 74176; 80053; 81001; 82010; 82947; 83690; 84484; 85025; 93005; 96361; 96374; 96375; 99285; J1790; J2270; J7120

== ENCOUNTER 2023-10-31 15:38 | Emergency (ER) | payer MEDICAID, SELFPAY ==
[2023-10-31] VITALS (9 sets, daily range): BP systolic 152–225; BP diastolic 79–135; PULSE 91–117; RESP 18–20; TEMP 36.6–37.2; O2SAT 96–100; BMI 25.8
--- NOTE | 2023-10-31 | ECG_ITS ---
Test Reason : HYPERTENTION Blood Pressure : / mmHG Vent. Rate : 092 BPM Atrial Rate : 092 BPM P-R Int : 134 ms QRS Dur : 084 ms QT Int : 378 ms P-R-T Axes : 071 075 050 degrees QTc Int : 467 ms Normal sinus rhythm Normal ECG When compared with ECG of 29-OCT-2023 23:54, No significant change was found Referred By: Generic ED Physician Electronically Signed By:RAFFAELE MILLER
--- NOTE | 2023-10-31 16:29 | PC.NURSE ---
Pt comes to ED today via EMS for severe 10/10 abd pain. Pt is hypertensive with otherwise stable VS. Pt is blind and has a fistula in his R forearm. Pt is restless and agitated, is able to follow instruction and remain still if told to do so however repeatedly rolls back and forth and from back to stomach repeatedly. 20g R hand. EKG completed.
[2023-10-31 16:31] LABS: MANUAL DIFF FLAG NO
[2023-10-31 16:32] LABS: Basophils Absolute Auto 0.1 X10*3/uL (0.0-0.2); Basophils Percent Auto 0.5 % (0-2); Eosinophils Absolute Auto 0.2 X10*3/uL (0.0-0.4); Eosinophils Percent Auto 1.1 % (0-4); Hematocrit 37.6 % (42.0-52.0); Imm Gran Abs Auto 0.04 X10*3/uL (0.00-0.03); Imm Gran Pct Auto 0.3 % (0.0-0.4); Lymphocytes Absolute Auto 1.5 X10*3/uL (1.2-4.9); Lymphocytes Percent Auto 11.8 % (20-40); Mean Corpuscular HGB Conc 34.6 g/dl (31.0-36.0); Mean Corpuscular Volume 86.8 fL (80.0-98.0); Mean Platelet Volume 9.7 fL (9.4-12.4); Monocytes Absolute Auto 0.8 X10*3/uL (0.1-1.2); Monocytes Percent Auto 5.9 % (2-11); Neutrophils Absolute Auto 10.5 x10*3/uL (2.0-8.3); Neutrophils Percent Auto 80.4 % (45-73); Platelet Count 191 X10*3/uL (160-400); Red Blood Count 4.33 X10*6/uL (4.60-5.80); Red Cell Distribution Width 12.2 % (11.0-16.0); White Blood Count 13.1 X10*3/uL (4.8-10.8)
--- NOTE | 2023-10-31 16:35 | ED_ITS ---
HPI - General Adult General Chief complaint: Abdominal Pain Stated complaint: 12/02 radiating abdominal pain Time Seen by Provider: 10/31/23 16:24 Source: patient, RN notes reviewed, old records reviewed and pharmacy clinical coordinator Mode of arrival: EMS Limitations: language barrier History of Present Illness ED Provider: Debbie HPI narrative: 38 year old male with past medical history significant for type 1 diabetes, chronic kidney disease presents for evaluation of abdominal pain. Patient reports his symptoms started this morning. Of note he was here yesterday for the same complaint of left-sided abdominal pain with associated nausea and vomiting He was given 3 L of lactated Ringer's, morphine IV and droperidol IV which greatly improved his symptoms he was ultimately discharged home. He would have labs and a CT scan of the abdomen pelvis as well His CT scan could not rule out mild colitis but otherwise was an unremarkable examination The patient was quite hypertensive yesterday, he does have a chronic kidney disease. He has a dialysis shunt in the left upper extremity but has not yet started dialysis Related Data Home Medications ?Medication ?Instructions ?Recorded ?Confirmed omeprazole 40 mg capsule,delayed 40 mg PO DAILY@0630 01/04/20 09/24/23 release metoprolol succinate 50 mg 50 mg PO DAILY 07/29/21 09/24/23 tablet,extended release 24 hr gabapentin 300 mg capsule 300 mg PO BEDTIME 05/13/22 09/24/23 hydralazine 100 mg tablet 100 mg PO TID 05/13/22 09/24/23 metoprolol succinate 100 mg 100 mg PO DAILY 02/10/23 09/24/23 tablet,extended release 24 hr nifedipine 30 mg tablet,extended 30 mg PO QAM 02/10/23 09/24/23 release 24 hr furosemide 20 mg tablet 20 mg PO DAILY PRN 03/09/23 09/24/23 nortriptyline 50 mg capsule 50 mg PO BEDTIME 03/09/23 09/24/23 tamsulosin 0.4 mg capsule 0.4 mg PO QPM 08/04/23 09/24/23 Previous Rx's ?Medication ?Instructions ?Recorded atorvastatin 80 mg tablet 80 mg PO DAILY #30 tabs 12/12/20 ezetimibe 10 mg tablet (Zetia) 10 mg PO DAILY 90 days #90 tabs 07/05/21 insulin pump cartridge,automated #1 ea 02/19/22 dose,BT with controller subcutaneous (Omnipod 5 G6 Intro Kit (Gen 5) subcutaneous cartridge with controller) insulin aspart U-100 100 unit/mL See Rx Instructions subcut TID #20 07/15/23 subcutaneous solution mL calcitriol 0.5 mcg capsule 0.5 mcg PO DAILY #90 caps 08/19/23 acetone (urine) test (Ketone Urine #25 ea 09/25/23 Test strips) insulin glargine 100 unit/mL (3 22 unit (0.22 mL) subcut DAILY PRN 09/25/23 mL) subcutaneous pen (Lantus pump malfunction 30 days #6 mL Solostar U-100 Insulin) pen needle, diabetic 32 gauge x #100 ea 09/25/23 (BD Ultra-Fine Shannan Pen Needle) glucagon 3 mg/actuation nasal 3 mg intranasal .prn Nonresponsive 10/23/23 spray (Baqsimi) hypoglycemia 30 days #2 ea insulin pump cart,automated,BT #10 ea 10/23/23 (Omnipod 5 G6 Pods (Gen 5) subcutaneous cartridge) Allergies Allergy/AdvReac Type Severity Reaction Status Date / Time gluten Allergy Gastrointestinal Verified 10/31/23 15:51 Upset losartan Allergy Gastrointestinal Verified 10/31/23 15:51 Upset valsartan AdvReac Unknown GI problems Verified 10/31/23 15:51 Review of Systems 2 Constitutional: Constitutional: Denies body ache(s), Denies chills and Denies fever(s) Eyes: Eyes: Denies blurry vision Cardiovascular: Cardiovascular: Denies chest pain Gastrointestinal: Gastrointestinal: Reports abdominal pain, Reports nausea and Reports vomiting Genitourinary: Genitourinary: Denies dysuria Musculoskeletal: Musculoskeletal: Denies abnormal gait Integumentary/Breasts: Skin/Breast: Denies rash Neurologic: Denies abnormal gait [facility] Past Medical History Medical History Hypertensive urgency CKD (chronic kidney disease) stage 4, GFR 15-29 ml/min Hypertensive nephrosclerosis Diabetic gastroparesis Pancreatitis Vitamin D deficiency Hypocalcemia Background diabetic retinopathy associated with type 2 diabetes mellitus Diabetes type 1, uncontrolled Hemangioma of liver Legally blind Acid reflux Sciatica Gastritis Polyneuropathy Essential hypertension Hyperlipidemia LDL goal <70 Surgical History Hx of endoscopy Hx of circumcision Hx of appendectomy Hx of eye surgery Family History Family History Father Diabetes mellitus Mother Diabetes mellitus Maternal Grandfather Diabetes mellitus Maternal Grandmother Diabetes mellitus Social History Social History Household Members: Spouse Household Members Other:: and girlfriend Housing: Apartment Do you presently have visiting nurse or other home services: No Alcohol intake: never Comment: refusing fall risk interventions. Patient Tobacco Use Status: Former Tobacco user Smoked in Last 30 Days: No Second Hand Smoke Exposure: No Substance Use Type: Marijuana Substance Use Frequency: Daily Advance Directives: Yes Advance Directives on File: Yes Advance Directives Date on File: 04/13/20 Do you have a plan to hurt others: No Plan service: No Current occupational status: disabled Physical Exam ED Vital Signs: Vital Signs - 24 hr 10/31/23 15:46 10/31/23 15:51 10/31/23 16:50 Temperature 97.8 F Pulse Rate 92 92 Respiratory Rate 20 20 20 Blood Pressure 209/124 H 209/124 H Pulse Oximetry 100 100 Oxygen Delivery Method Room Air Room Air 10/31/23 20:15 10/31/23 20:20 10/31/23 20:38 Temperature 99.0 F Pulse Rate 116 H 117 H 102 H Respiratory Rate 18 18 Blood Pressure 199/125 H 225/135 H 191/110 H Pulse Oximetry 96 96 Oxygen Delivery Method Room Air Room Air 10/31/23 21:20 10/31/23 21:30 10/31/23 21:42 Temperature 99.0 F Pulse Rate 91 91 97 Respiratory Rate 18 18 Blood Pressure 152/82 H 152/79 H 170/100 H Pulse Oximetry 96 Oxygen Delivery Method Room Air BMI result Body Mass Index 25.8 Const General: healthy appearing, alert and awake; No comfortable (Patient appears uncomfortable, but nontoxic appearing) Nutritional Appearance: well nourished Orientation/consciousness: patient oriented x3 HENMT Head: Yes normocephalic and Yes atraumatic Eyes Eyelids: Yes eyelids normal Conjunctivae: conjunctivae normal Sclerae: sclerae normal Corneas: corneas normal Pupils: Equal, round and reactive pupils present EOM: EOMs intact bilaterally Neck Neck: Yes full ROM Resp Effort & Inspection: normal respiratory effort, able to speak in complete sentences and not labored Cardio Rate: regular rate Rhythm: regular rhythm GI Inspection: No distended Palpation (GI): Soft to palpation, not firm, Tenderness to palpation present (GI) (Diffuse tenderness with guarding), Guarding due to palpation present (GI) and not rigid Skin General skin exam: elasticity normal Neuro General: patient oriented x3 Cranial nerves: Yes Equal, round and reactive pupils present and Yes Bilaterally intact EOM present Cognition (Neuro): normal cognition Extrem Other: Moving all extremities well without any obvious deformities Course Reevaluation(s) Reevaluation #1: Patient's blood pressure improved with labetalol, he is currently resting comfortably, no further abdominal pain, he is stable for discharge at this time. Time: 22:22 Medications Administered Discontinued Medications Generic Name Dose Route Start Last Admin Trade Name Freq PRN Reason Stop Dose Admin Haloperidol Lactate 2.5 mg 10/31/23 17:00 10/31/23 18:34 Haloperidol Lactate 5 Mg/Ml Vial IVPUSH 10/31/23 17:01 2.5 mg ONCE ONE Administration Labetalol HCl 20 mg 10/31/23 20:33 10/31/23 20:38 Labetalol Hcl 100 Mg/20 Ml Vial IVPUSH 10/31/23 20:34 20 mg ONCE ONE Administration Morphine Sulfate 4 mg 10/31/23 16:35 10/31/23 16:50 Morphine Sulfate 4 Mg/Ml Cartridge IVPUSH 10/31/23 16:36 4 mg ONCE ONE Administration Protocol Ondansetron HCl 4 mg 10/31/23 16:36 10/31/23 16:49 Ondansetron Hcl 4 Mg/2 Ml Vial IVPUSH 10/31/23 16:37 4 mg ONCE ONE Administration Medical Decision Making Medical Decision Making [facility] Narrative: 38-year-old male with history as documented above presents for evaluation of left-sided abdominal pain. He appears quite uncomfortable. I did review his workup from yesterday as well as the CT scan. Plan for repeat labs, will treat with morphine, Haldol. Will hold repeat imaging at this time. Patient's blood pressure is as high as 209/124. We will hold any vasoactive agents pending his analgesia treatment, as he may be hypertensive due to his pain. He improved yesterday without any antihypertensive medications Differential Diagnosis Differential Diagnoses: The differential diagnosis associated with the presentation includes Chronic abdominal pain Colitis Diverticulitis Obstructive uropathy UTI Lab Data MDM Lab Attestation statement: I reviewed the patient's lab results. Patient has a leukocytosis to 13.1, this is actually improved when compared to yesterday's visit he has a mild anemia which is likely related to his chronic kidney disease. His hemoglobin is down to 13.0 from 13.9 yesterday. This is likely due to dilution from the 3 L of IV fluids received yesterday. Chemistries are significant for an elevated BUN and creatinine to 48 and 5.81 respectively. These are improved when compared to yesterday and is as well. Chemistries are otherwise reassuring. The patient is a diabetic with a glucose of 229. There was no anion gap and his carbon dioxide is within normal limits. 10/31/23 16:23 10/31/23 16:23 Labs: Lab Results 10/31/23 Range/Units 16:23 WBC 13.1 H (4.8-10.8) X10*3/uL RBC 4.33 L (4.60-5.80) X10*6/uL Hgb 13.0 L (14.0-18.0) g/dl Hct 37.6 L (42.0-52.0) % MCV 86.8 (80.0-98.0) fL MCH 30.0 (27.0-33.0) pg MCHC 34.6 (31.0-36.0) g/dl RDW 12.2 (11.0-16.0) % Plt Count 191 (160-400) X10*3/uL MPV 9.7 (9.4-12.4) fL Immature Gran % (Auto) 0.3 (0.0-0.4) % Neut % (Auto) 80.4 H (45-73) % Lymph % (Auto) 11.8 L (20-40) % [place] % (Auto) 5.9 (2-11) % Eos % (Auto) 1.1 (0-4) % Baso % (Auto) 0.5 (0-2) % Lymph # (Auto) 1.5 (1.2-4.9) X10*3/uL [place] # (Auto) 0.8 (0.1-1.2) X10*3/uL Eos # (Auto) 0.2 (0.0-0.4) X10*3/uL Baso # (Auto) 0.1 (0.0-0.2) X10*3/uL Abs Immat Gran (auto) 0.04 H (0.00-0.03) X10*3/uL Absolute Neuts (auto) 10.5 H (2.0-8.3) x10*3/uL Absolute Nucleated RBC 0.000 (0.0-0.012) X10*3/uL Nucleated RBC % (auto) 0.0 (0.0-0.2) /100WBC Sodium 140 (135-145) mmol/L Potassium 4.0 (3.3-5.1) mmol/L Chloride 103 (96-108) mmol/L Carbon Dioxide 22 (22-29) mmol/L Anion Gap 19 (12-20) BUN 48 H (9-16) mg/dL Creatinine 5.81 H* (0.5-1.4) mg/dL Estim Creat Clear Calc 16.5 Estimated GFR 11 Random Glucose 229 H (60-115) mg/dL Calcium 9.4 D (8.4-10.2) mg/dL Magnesium 1.6 (1.6-2.6) mg/dL Total Bilirubin 0.7 (0.0-1.0) mg/dL AST 26 (5-37) U/L ALT 17 (0-40) U/L Alkaline Phosphatase 74 (39-117) U/L Total Protein 7.3 (6.5-8.0) g/dL Albumin 4.1 (3.5-5.0) g/dL Influenza Type A (PCR) NEGATIVE (Negative) Influenza Type B (PCR) NEGATIVE (Negative) RSV RNA Qual (PCR) NEGATIVE (Negative) SARS-CoV-2 RNA (RT-PCR) NEGATIVE (Negative) Discharge Plan Discharge Clinical Impression: Abdominal pain, Hypertensive emergency Patient Disposition: Home, Self-Care Instructions: Abdominal Pain (ED), Hypertensive Crisis (ED) Additional Instructions: Take your medication as prescribed. Follow-up with your primary doctor regarding your high blood pressure Return for new or worsening symptoms Prescriptions: No Action atorvastatin 80 mg tablet 80 mg PO DAILY Qty: 30 6RF ezetimibe [Zetia] 10 mg tablet 10 mg PO DAILY 90 Days Qty: 90 1RF (DME) Omnipod 5 G6 Intro Kit (Gen 5) Cartridge See Rx Instructions .Route Qty: 1 4RF Rx Instructions: As directed insulin aspart U-100 100 unit/mL solution See Rx Instructions subcut TID Qty: 20 5RF Rx Instructions: infuse up to 70 units via insulin pump subcutaneously 3 times a day; calcitriol 0.5 mcg capsule 0.5 mcg PO DAILY Qty: 90 3RF Baqsimi 3 mg/actuation spray,non-aerosol 3 mg intranasal .prn MDD 6mg 30 Days Qty: 2 1RF Rx Instructions: Unresponsive hypoglycemia may repeat in 15 minutes (DME) Omnipod 5 G6 Pods (Gen 5) Cartridge See Rx Instructions .ROUTE .COMPLEX Qty: 10 11RF Dose Instruction: CHANGE POD EVERY 72 HOURS DIRECTED Rx Instructions: CHANGE POD EVERY 72 HOURS DIRECTED metoprolol succinate 50 mg tablet extended release 24 hr 50 mg PO DAILY Rx Instructions: take with the 100mg furosemide 20 mg tablet 20 mg PO DAILY PRN metoprolol succinate 100 mg tablet extended release 24 hr 100 mg PO DAILY Rx Instructions: take with the 50mg nifedipine 30 mg tablet extended release 24hr 30 mg PO QAM omeprazole 40 mg capsule,delayed release(DR/EC) 40 mg PO DAILY@0630 gabapentin 300 mg capsule 300 mg PO BEDTIME hydralazine 100 mg tablet 100 mg PO TID nortriptyline 50 mg capsule 50 mg PO BEDTIME tamsulosin 0.4 mg capsule 0.4 mg PO QPM insulin glargine [Lantus Solostar U-100 Insulin] 100 unit/mL (3 mL) insulin pen 22 unit subcut DAILY MDD 22 units PRN (Reason: pump malfunction) 30 Days Qty: 6 4RF (DME) pen needle, diabetic [BD Ultra-Fine Shannan Pen Needle] 32 gauge x 5/32 needle See Rx Instructions .ROUTE QID Qty: 100 3RF Rx Instructions: As directed prn pump failure up to 4 times daily (DME) Ketone Urine Test Strip See Rx Instructions .ROUTE .MEDSUPPLY Qty: 25 3RF Rx Instructions: Prn glucose over 250, nausea or vomiting, tid Print Language: Haitian
[2023-10-31] MEDS: ondansetron HCL 4 MG/2 ML VIAL IVPUSH (16:49)
[2023-10-31] MEDS: Morphine Sulfate 4 MG/ML CARTRIDGE IVPUSH (16:50)
[2023-10-31 16:51] LABS: Alanine Aminotransferase 17 U/L (0-40); Albumin Level 4.1 g/dL (3.5-5.0); Alkaline Phosphatase 74 U/L (39-117); Anion Gap 19 (12-20); Aspartate Amino Transferase 26 U/L (5-37); Bilirubin Total 0.7 mg/dL (0.0-1.0); Blood Urea Nitrogen 48 mg/dL (9-16); Calcium 9.4 mg/dL (8.4-10.2); Carbon Dioxide 22 mmol/L (22-29); Chloride 103 mmol/L (96-108); Creatinine Clr Calc Pharmacy 16.5; Estimated Glomerular Filt Rate 11; Glucose Random 229 mg/dL (60-115); Magnesium 1.6 mg/dL (1.6-2.6); Sodium 140 mmol/L (135-145); Total Protein 7.3 g/dL (6.5-8.0)
[2023-10-31 17:07] LABS: Influenza A PCR NEGATIVE (Negative); Influenza B PCR NEGATIVE (Negative); Resp Syncy Virus RNA Qual PCR NEGATIVE (Negative); SARS COV2 PCR INHOUSE NEGATIVE (Negative)
[2023-10-31] MEDS: Haloperidol Lactate 5 MG/ML VIAL 2.5 MG IVPUSH (18:34)
--- NOTE | 2023-10-31 18:40 | PC.NURSE ---
Gonzalo held until now as Pt was resting quietly with his eye closed following the administration of Morphine and Zofran. Pt had arisen and requested to use the toilet, Pt assisted. Upon return to room, Pt informed he had additional medication and wished to receive it at this time.
--- NOTE | 2023-10-31 20:27 | MHC.EDTECH ---
This tech took over care of patient at 1900,rounds and vitals completed,BP is elevated 199/125,HR 116/patient was changed into hospital attire and placed on the clinical research monitor,repeat BP taken 225/135.HR 117.RN Javed,provider made aware,call lizarraga in reach
[2023-10-31] MEDS: Labetalol HCL 100 MG/20 ML VIAL 20 MG IVPUSH (20:38)
--- NOTE | 2023-10-31 21:51 | MHC.EDTECH ---
Hourly rounds and vitals completed,BP elevated 170/100,RN aware,call lizarraga in reach
== END 2023-10-31 22:41 | disposition home or self-care (01) ==
PROVIDERS: Physician Assistant Medical; Emergency Provider Emergency Medicine; PCP Internal Medicine Geriatric Medicine
DX: I16.0 Hypertensive urgency (principal); R10.9 Unspecified abdominal pain; R11.2 Nausea with vomiting, unspecified; Z03.818 Encounter for observation for suspected exposure to other biological agents ruled out; E10.22 Type 1 diabetes mellitus with diabetic chronic kidney disease; I12.9 Hypertensive chronic kidney disease with stage 1 through stage 4 chronic kidney disease, or unspecified chronic kidney disease; N18.4 Chronic kidney disease, stage 4 (severe); Z99.2 Dependence on renal dialysis; Z79.4 Long term (current) use of insulin; Z96.41 Presence of insulin pump (external) (internal)
CPT/HCPCS: 0241U; 80053; 83735; 85025; 93005; 99285; J1630; J1920; J2270; J2405

== ENCOUNTER 2023-11-05 12:04 | Outpatient (AMB) | payer MEDICAID, SELFPAY ==
--- NOTE | 2023-11-05 12:03 | HO.NEPHOV ---
Vital Signs 11/05/23 12:04 Weight 172 lb BP 144/82 H Blood Pressure Location Lt brachial Position Sitting Pulse 88 Pulse Source Pulse Oximeter Pulse Oximetry (%) 97 Oxygen Delivery Method Room Air Intake Visit Reasons: Pt seen at [facility] on 10/29/23[facility] Worker Required: Yes Accompanied by: Spouse Allergies gluten Allergy (Verified 11/11/23 21:47) Gastrointestinal Upset losartan Allergy (Verified 11/11/23 21:47) Gastrointestinal Upset valsartan Adverse Reaction (Unknown, Verified 11/11/23 21:47) GI problems Medication List - Last Reconciled 11/05/23 by Onur Bejarano MD acetone (urine) test (Ketone Urine Test strips) Prn glucose over 250, nausea or vomiting, tid atorvastatin 80 mg PO DAILY calcitriol 0.5 mcg PO DAILY ezetimibe (Zetia) 10 mg PO DAILY 90 days furosemide 20 mg PO DAILY PRN gabapentin 300 mg PO BEDTIME glucagon 3 mg/actuation (Baqsimi) 3 mg intranasal .prn 30 days MDD 6mg hydralazine 100 mg PO TID insulin aspart U-100 infuse up to 70 units via insulin pump subcutaneously 3 times a day; insulin glargine (Lantus Solostar U-100 Insulin) 22 units (0.22 mL) subcut DAILY PRN 30 days MDD 22 units insulin pump cart,auto,BT-cntr (Omnipod 5 G6 Intro Kit (Gen 5) subcutaneous cartridge with controller) As directed insulin pump cart,automated,BT (Omnipod 5 G6 Pods (Gen 5) subcutaneous cartridge) CHANGE POD EVERY 72 HOURS DIRECTED metoprolol succinate ER 50 mg PO DAILY metoprolol succinate ER 100 mg PO DAILY nifedipine ER 30 mg PO QAM nortriptyline 50 mg PO BEDTIME omeprazole 40 mg PO DAILY@0630 pen needle, diabetic (BD Ultra-Fine Shannan Pen Needle) As directed prn pump failure up to 4 times daily tamsulosin 0.4 mg PO QPM HPI Comments Details: 37-year-old man with type 1 diabetes mellitus and advanced CKD. He has underlying diabetic nephropathy. He was accompanied by his caregiver. Interpretation service was used. Today he has no new complaints. He is compliant with his medication. Blood sugar seems to be well controlled at home. Has AVF in left forearm- about 2 months old. Not mature yet Created by -VAscular on 06/14/23 [facility] Medical History Hypertensive urgency CKD (chronic kidney disease) stage 4, GFR 15-29 ml/min Hypertensive nephrosclerosis Diabetic gastroparesis Pancreatitis Vitamin D deficiency Hypocalcemia Background diabetic retinopathy associated with type 2 diabetes mellitus Diabetes type 1, uncontrolled Hemangioma of liver Legally blind Acid reflux Sciatica Gastritis Polyneuropathy Essential hypertension Hyperlipidemia LDL goal <70 Surgical History Hx of endoscopy Hx of circumcision Hx of appendectomy Hx of eye surgery Family History Father Diabetes mellitus Mother Diabetes mellitus Maternal Grandfather Diabetes mellitus Maternal Grandmother Diabetes mellitus Social History Household Members: Spouse Household Members Other:: and girlfriend Housing: Apartment Do you presently have visiting nurse or other home services: No Alcohol intake: never Comment: refusing fall risk interventions. Patient Tobacco Use Status: Former Tobacco user Second Hand Smoke Exposure: No Substance Use Type: Marijuana Advance Directives Date on File: 04/13/20 service: No Current occupational status: disabled Physical Exam Vital Signs: Last Vital Signs Pulse 88 11/05/23 12:04 BP 144/82 H 11/05/23 12:04 Pulse Ox 97 11/05/23 12:04 Oxygen Delivery Method Room Air 11/05/23 12:04 Results Reviewed Nephrology Results: Hgb 12.9 g/dl (14.0-18.0) L 11/11/23 WBC 12.0 X10*3/uL (4.8-10.8) H 11/11/23 Plt Count 278 X10*3/uL (160-400) 11/11/23 Sodium 139 mmol/L (135-145) 11/11/23 Potassium 4.6 mmol/L (3.3-5.1) 11/11/23 Chloride 106 mmol/L (96-108) 11/11/23 Carbon Dioxide 20 mmol/L (22-29) L 11/11/23 BUN 53 mg/dL (9-16) H 11/11/23 Creatinine 6.19 mg/dL (0.5-1.4) H* 11/11/23 Calcium 10.0 mg/dL (8.4-10.2) 11/11/23 Urine Protein 300 (3+) mg/dL (Neg-Trace) H 10/30/23 Assessment & Plan Assessment & Plan (1) Diabetes type 1, uncontrolled: Code(s): E10.65 - Type 1 diabetes mellitus with hyperglycemia Category: Medical (2) 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 Renal function stable at baseline. No signs or symptoms of uremia. Fluid status is acceptable. Goal is to slow the portion disease. Current continue with current regimen. Maintain blood pressure less than 130/80 and A1c less than 7%. Continue overt nephrotoxic agents. He is being evaluated by [facility] transplant service for preemptive transplantation He has on the active list Resistant hypertension blood pressure well controlled I have encouraged him to stay on low-sodium diet. No changes were made. He is mild anemia no indication for Epogen yet. SHPT: On calcitriol AVFistula: Created on 06/05/23; Not ready for use. Needs revision before it can be accessed Orders: Orders Basic Metabolic Panel 2 Months E10.22 - Type 1 diabetes mellitus with diabetic chronic kidney disease, N18.5 - Chronic kidney disease, stage 5 Complete Blood Count Auto Diff 2 Months E10.22 - Type 1 diabetes mellitus with diabetic chronic kidney disease, N18.5 - Chronic kidney disease, stage 5 Coding Level of Care Code Est Pt Level 4 (26063) Diagnoses Uncontrolled type 1 diabetes mellitus with hyperglycemia E10.65 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 E10.22; N18.5
[2023-11-05 12:04] VITALS: BP 144/82; PULSE 88; O2SAT 97
== END 2023-11-05 12:23 | disposition home or self-care (01) ==
PROVIDERS: PCP Internal Medicine Geriatric Medicine; Visit Provider Internal Medicine Hypertension Specialist
DX: I12.0 Hypertensive chronic kidney disease with stage 5 chronic kidney disease or end stage renal disease (principal); E10.22 Type 1 diabetes mellitus with diabetic chronic kidney disease; N18.5 Chronic kidney disease, stage 5; E10.65 Type 1 diabetes mellitus with hyperglycemia
CPT/HCPCS: 99214

== ENCOUNTER → 2023-11-05 12:04 | Outpatient (BNVA) | payer MEDICAID, SELFPAY | PROVIDERS: PCP Internal Medicine Geriatric Medicine; Visit Provider Internal Medicine Hypertension Specialist | DX: E10.65 Type 1 diabetes mellitus with hyperglycemia (principal); E10.22 Type 1 diabetes mellitus with diabetic chronic kidney disease; E10.21 Type 1 diabetes mellitus with diabetic nephropathy; N18.5 Chronic kidney disease, stage 5; Z79.4 Long term (current) use of insulin; Z96.41 Presence of insulin pump (external) (internal) | CPT/HCPCS: 99212 ==

== ENCOUNTER 2023-11-11 21:18 | Emergency (ER) | payer MEDICAID, SELFPAY ==
--- NOTE | 2023-11-11 | ECG_ITS ---
Test Reason : CHEST PAIN Blood Pressure : / mmHG Vent. Rate : 084 BPM Atrial Rate : 084 BPM P-R Int : 138 ms QRS Dur : 086 ms QT Int : 378 ms P-R-T Axes : 054 071 054 degrees QTc Int : 446 ms Normal sinus rhythm Normal ECG When compared with ECG of 31-OCT-2023 15:52, No significant change was found Referred By: Generic ED Physician Electronically Signed By:RAFFAELE MILLER
[2023-11-11 21:41] VITALS: BP 182/94; BP 193/104; PULSE 85; PULSE 88; RESP 15; TEMP 36.8; O2SAT 97; O2SAT 99; BMI 25.7
--- NOTE | 2023-11-11 21:45 | ED_ITS ---
HPI - Abdominal Pain General Chief Complaint: Abdominal Pain Stated Complaint: abd pain/vomiting x2hrs Time Seen by Provider: 11/11/23 21:45 Source: patient Mode of arrival: ambulatory Limitations: no limitations History of Present Illness ED Provider: balaji DE LA CRUZ narrative: Patient is 38 years old legally blind with type 1 diabetic, hypertension been here frequently for abdominal pain comes here for similar abdominal pain and vomiting x2 for last 2 hours patient is seen here on 10/30 CT scan of the abdomen was negative no diarrhea no fever no chills Related Data Home Medications ?Medication ?Instructions ?Recorded ?Confirmed omeprazole 40 mg capsule,delayed 40 mg PO DAILY@0630 01/04/20 11/05/23 release metoprolol succinate 50 mg 50 mg PO DAILY 07/29/21 11/05/23 tablet,extended release 24 hr gabapentin 300 mg capsule 300 mg PO BEDTIME 05/13/22 11/05/23 hydralazine 100 mg tablet 100 mg PO TID 05/13/22 11/05/23 metoprolol succinate 100 mg 100 mg PO DAILY 02/10/23 11/05/23 tablet,extended release 24 hr nifedipine 30 mg tablet,extended 30 mg PO QAM 02/10/23 11/05/23 release 24 hr furosemide 20 mg tablet 20 mg PO DAILY PRN 03/09/23 11/05/23 nortriptyline 50 mg capsule 50 mg PO BEDTIME 03/09/23 11/05/23 tamsulosin 0.4 mg capsule 0.4 mg PO QPM 08/04/23 11/05/23 Previous Rx's ?Medication ?Instructions ?Recorded atorvastatin 80 mg tablet 80 mg PO DAILY #30 tabs 12/12/20 ezetimibe 10 mg tablet (Zetia) 10 mg PO DAILY 90 days #90 tabs 07/05/21 insulin pump cartridge,automated #1 ea 02/19/22 dose,BT with controller subcutaneous (Omnipod 5 G6 Intro Kit (Gen 5) subcutaneous cartridge with controller) insulin aspart U-100 100 unit/mL See Rx Instructions subcut TID #20 07/15/23 subcutaneous solution mL calcitriol 0.5 mcg capsule 0.5 mcg PO DAILY #90 caps 08/19/23 acetone (urine) test (Ketone Urine #25 ea 09/25/23 Test strips) insulin glargine 100 unit/mL (3 22 unit (0.22 mL) subcut DAILY PRN 09/25/23 mL) subcutaneous pen (Lantus pump malfunction 30 days #6 mL Solostar U-100 Insulin) pen needle, diabetic 32 gauge x #100 ea 09/25/23/32 (BD Ultra-Fine Shannan Pen Needle) glucagon 3 mg/actuation nasal 3 mg intranasal .prn Nonresponsive 10/23/23 spray (Baqsimi) hypoglycemia 30 days #2 ea insulin pump cart,automated,BT #10 ea 10/23/23 (Omnipod 5 G6 Pods (Gen 5) subcutaneous cartridge) Allergies Allergy/AdvReac Type Severity Reaction Status Date / Time gluten Allergy Gastrointestinal Verified 11/11/23 21:47 Upset losartan Allergy Gastrointestinal Verified 11/11/23 21:47 Upset valsartan AdvReac Unknown GI problems Verified 11/11/23 21:47 Review of Systems Review of Systems Yes all other systems are reviewed and are negative PMFSH Past Medical History Medical History Hypertensive urgency CKD (chronic kidney disease) stage 4, GFR 15-29 ml/min Hypertensive nephrosclerosis Diabetic gastroparesis Pancreatitis Vitamin D deficiency Hypocalcemia Background diabetic retinopathy associated with type 2 diabetes mellitus Diabetes type 1, uncontrolled Hemangioma of liver Legally blind Acid reflux Sciatica Gastritis Polyneuropathy Essential hypertension Hyperlipidemia LDL goal <70 Surgical History Hx of endoscopy Hx of circumcision Hx of appendectomy Hx of eye surgery Family History Family History Father Diabetes mellitus Mother Diabetes mellitus Maternal Grandfather Diabetes mellitus Maternal Grandmother Diabetes mellitus Social History Social History Household Members: Spouse Household Members Other:: and girlfriend Housing: Apartment Do you presently have visiting nurse or other home services: No Alcohol intake: never Comment: refusing fall risk interventions. Patient Tobacco Use Status: Former Tobacco user Smoked in Last 30 Days: No Second Hand Smoke Exposure: No Use of substances other than those prescribed or required for medical reasons: No Substance Use Type: Marijuana Advance Directives: Yes Advance Directives on File: Yes Advance Directives Date on File: 04/13/20 Do you have a plan to hurt others: No Plan service: No Current occupational status: disabled Physical Exam ED Vital Signs: Vital Signs - 24 hr 11/11/23 21:41 11/11/23 22:11 11/12/23 00:00 Temperature 98.3 F 98.3 F Pulse Rate 85 97 Respiratory Rate 15 15 16 Blood Pressure 193/104 H 164/78 H Pulse Oximetry 97 98 Oxygen Delivery Method Room Air Room Air BMI result Body Mass Index 25.7 Appearance: Alert. Oriented X3. No acute distress. Eyes: blind with a opacified cornea ENT: Pharynx normal. Oral Mucosa moist Neck: Normal inspection. Neck supple. CVS: Normal heart rate and rhythm. Pulses normal. Respiratory: No respiratory distress. Equal air entry bilateral, Abdomen: Soft and deep tenderness left lower abdomen no guarding /rebound tenderness Bowel sounds are present, no mass palpable, no CVA tenderness Skin: Skin warm and dry. Normal skin color. Normal skin turgor. Extremities: No lower extremity edema. No calf tenderness Neuro: Oriented X 3. No motor deficit. No sensory deficit. Medical Decision Making Medical Decision Making [facility] Narrative: Patient with frequent ED visits with chronic left lower abdominal pain multiple CT scan showed mild colitis no diarrhea at this time had vomiting only 2 times pain relieved after pain medication patient does have CKD plan for dialysis in future will discharge patient home advised to follow up with PCP as outpatient Differential Diagnosis Differential Diagnoses: The differential diagnosis associated with the presentation includes Diverticulitis/colitis Lab Data [facility] Lab Attestation statement: I reviewed the patient's lab results. 11/11/23 21:54 11/11/23 21:54 Labs: Lab Results 11/11/23 Range/Units 21:54 WBC 12.0 H (4.8-10.8) X10*3/uL RBC 4.31 L (4.60-5.80) X10*6/uL Hgb 12.9 L (14.0-18.0) g/dl Hct 37.7 L (42.0-52.0) % MCV 87.5 (80.0-98.0) fL MCH 29.9 (27.0-33.0) pg MCHC 34.2 (31.0-36.0) g/dl RDW 12.0 (11.0-16.0) % Plt Count 278 D (160-400) X10*3/uL MPV 10.2 (9.4-12.4) fL Immature Gran % (Auto) 0.4 (0.0-0.4) % Neut % (Auto) 86.3 H (45-73) % Lymph % (Auto) 8.9 L (20-40) % [place] % (Auto) 3.7 (2-11) % Eos % (Auto) 0.3 (0-4) % Baso % (Auto) 0.4 (0-2) % Lymph # (Auto) 1.1 L (1.2-4.9) X10*3/uL [place] # (Auto) 0.5 (0.1-1.2) X10*3/uL Eos # (Auto) 0.0 (0.0-0.4) X10*3/uL Baso # (Auto) 0.1 (0.0-0.2) X10*3/uL Abs Immat Gran (auto) 0.05 H (0.00-0.03) X10*3/uL Absolute Neuts (auto) 10.4 H (2.0-8.3) x10*3/uL Absolute Nucleated RBC 0.000 (0.0-0.012) X10*3/uL Nucleated RBC % (auto) 0.0 (0.0-0.2) /100WBC Sodium 139 (135-145) mmol/L Potassium 4.6 (3.3-5.1) mmol/L Chloride 106 (96-108) mmol/L Carbon Dioxide 20 L (22-29) mmol/L Anion Gap 18 (12-20) BUN 53 H (9-16) mg/dL Creatinine 6.19 H* (0.5-1.4) mg/dL Estim Creat Clear Calc 15.5 Estimated GFR 10 Random Glucose 176 H (60-115) mg/dL Calcium 10.0 D (8.4-10.2) mg/dL Total Bilirubin 0.5 (0.0-1.0) mg/dL AST 20 (5-37) U/L ALT 26 (0-40) U/L Alkaline Phosphatase 64 (39-117) U/L Troponin I High Sens 5.1 (<3.5-35.0) ng/L Total Protein 7.6 (6.5-8.0) g/dL Albumin 4.2 (3.5-5.0) g/dL Lipase 36 (8-78) U/L Medications Administered Discontinued Medications Generic Name Dose Route Start Last Admin Trade Name Freq PRN Reason Stop Dose Admin Sodium Chloride 1,000 mls @ 999 mls/hr 11/11/23 22:02 11/11/23 22:11 Ns IV 11/11/23 23:02 999 mls/hr .Q1H1M ONE Administration Ketorolac Tromethamine 30 mg 11/12/23 00:03 11/12/23 00:14 Ketorolac Tromethamine 30 Mg/Ml Vial IVPUSH 11/12/23 00:04 30 mg ONCE ONE Administration Morphine Sulfate 4 mg 11/11/23 22:00 11/11/23 22:11 Morphine Sulfate 4 Mg/Ml Cartridge IVPUSH 11/11/23 22:01 4 mg ONCE ONE Administration Protocol Ondansetron HCl 4 mg 11/11/23 22:00 11/11/23 22:11 Ondansetron Hcl 4 Mg/2 Ml Vial IVPUSH 11/11/23 22:01 4 mg ONCE ONE Administration Discharge Plan Discharge Clinical Impression: Abdominal pain, Chronic kidney disease Patient Disposition: Home, Self-Care Instructions: Chronic Kidney Disease (ED), Abdominal Pain (ED) Additional Instructions: Continue your medications and follow with skein inspector Prescriptions: No Action atorvastatin 80 mg tablet 80 mg PO DAILY Qty: 30 6RF ezetimibe [Zetia] 10 mg tablet 10 mg PO DAILY 90 Days Qty: 90 1RF (DME) Omnipod 5 G6 Intro Kit (Gen 5) Cartridge See Rx Instructions .Route Qty: 1 4RF Rx Instructions: As directed insulin aspart U-100 100 unit/mL solution See Rx Instructions subcut TID Qty: 20 5RF Rx Instructions: infuse up to 70 units via insulin pump subcutaneously 3 times a day; calcitriol 0.5 mcg capsule 0.5 mcg PO DAILY Qty: 90 3RF Baqsimi 3 mg/actuation spray,non-aerosol 3 mg intranasal .prn MDD 6mg 30 Days Qty: 2 1RF Rx Instructions: Unresponsive hypoglycemia may repeat in 15 minutes (DME) Omnipod 5 G6 Pods (Gen 5) Cartridge See Rx Instructions .ROUTE .COMPLEX Qty: 10 11RF Dose Instruction: CHANGE POD EVERY 72 HOURS DIRECTED Rx Instructions: CHANGE POD EVERY 72 HOURS DIRECTED metoprolol succinate 50 mg tablet extended release 24 hr 50 mg PO DAILY Rx Instructions: take with the 100mg furosemide 20 mg tablet 20 mg PO DAILY PRN metoprolol succinate 100 mg tablet extended release 24 hr 100 mg PO DAILY Rx Instructions: take with the 50mg nifedipine 30 mg tablet extended release 24hr 30 mg PO QAM omeprazole 40 mg capsule,delayed release(DR/EC) 40 mg PO DAILY@0630 gabapentin 300 mg capsule 300 mg PO BEDTIME hydralazine 100 mg tablet 100 mg PO TID nortriptyline 50 mg capsule 50 mg PO BEDTIME tamsulosin 0.4 mg capsule 0.4 mg PO QPM insulin glargine [Lantus Solostar U-100 Insulin] 100 unit/mL (3 mL) insulin pen 22 unit subcut DAILY MDD 22 units PRN (Reason: pump malfunction) 30 Days Qty: 6 4RF (DME) pen needle, diabetic [BD Ultra-Fine Shannan Pen Needle] 32 gauge x 5/32 needle See Rx Instructions .ROUTE QID Qty: 100 3RF Rx Instructions: As directed prn pump failure up to 4 times daily (DME) Ketone Urine Test Strip See Rx Instructions .ROUTE .MEDSUPPLY Qty: 25 3RF Rx Instructions: Prn glucose over 250, nausea or vomiting, tid Print Language: Hungarian
[2023-11-11 21:59] LABS: MANUAL DIFF FLAG NO
[2023-11-11 22:11] VITALS: RESP 15
[2023-11-11] MEDS: ondansetron HCL 4 MG/2 ML VIAL IVPUSH (22:11)
[2023-11-11] MEDS: 0.9 % Sodium Chloride 1,000 ML 999 ML IV (22:11)
[2023-11-11] MEDS: Morphine Sulfate 4 MG/ML CARTRIDGE IVPUSH (22:11)
--- NOTE | 2023-11-11 22:13 | PC.NURSE ---
pt biba from home, a&ox4, respirations even and unlabored. healthcare interpreter at bedside. pt reporting onset of upper epigastric pain and chest pain x3 hour ago, pt reports nausea and vomiting but denies diarrhea. pt reports he has a fistula in place in the left arm for dialysis but reports he has not needed it. 20G placed in right hand, labs obtained and sent. pt medicated per apr.
[2023-11-11 22:22] LABS: Basophils Absolute Auto 0.1 X10*3/uL (0.0-0.2); Basophils Percent Auto 0.4 % (0-2); Eosinophils Percent Auto 0.3 % (0-4); Hematocrit 37.7 % (42.0-52.0); Hemoglobin 12.9 g/dl (14.0-18.0); Imm Gran Abs Auto 0.05 X10*3/uL (0.00-0.03); Imm Gran Pct Auto 0.4 % (0.0-0.4); Lymphocytes Absolute Auto 1.1 X10*3/uL (1.2-4.9); Lymphocytes Percent Auto 8.9 % (20-40); Mean Corpuscular HGB Conc 34.2 g/dl (31.0-36.0); Mean Corpuscular Hemoglobin 29.9 pg (27.0-33.0); Mean Corpuscular Volume 87.5 fL (80.0-98.0); Mean Platelet Volume 10.2 fL (9.4-12.4); Monocytes Absolute Auto 0.5 X10*3/uL (0.1-1.2); Monocytes Percent Auto 3.7 % (2-11); Neutrophils Absolute Auto 10.4 x10*3/uL (2.0-8.3); Neutrophils Percent Auto 86.3 % (45-73); Platelet Count 278 X10*3/uL (160-400); Red Blood Count 4.31 X10*6/uL (4.60-5.80)
[2023-11-11 22:28] LABS: Troponin-I High Sensitivity 5.1 ng/L (<3.5-35.0)
[2023-11-11 22:38] LABS: Alanine Aminotransferase 26 U/L (0-40); Albumin Level 4.2 g/dL (3.5-5.0); Alkaline Phosphatase 64 U/L (39-117); Anion Gap 18 (12-20); Aspartate Amino Transferase 20 U/L (5-37); Bilirubin Total 0.5 mg/dL (0.0-1.0); Blood Urea Nitrogen 53 mg/dL (9-16); Carbon Dioxide 20 mmol/L (22-29); Chloride 106 mmol/L (96-108); Creatinine Clr Calc Pharmacy 15.5; Estimated Glomerular Filt Rate 10; Glucose Random 176 mg/dL (60-115); Lipase 36 U/L (8-78); Potassium 4.6 mmol/L (3.3-5.1); Sodium 139 mmol/L (135-145); Total Protein 7.6 g/dL (6.5-8.0)
[2023-11-12] VITALS: BP 164/78; PULSE 97; RESP 16; TEMP 36.8; O2SAT 98
[2023-11-12] MEDS: Ketorolac Tromethamine 30 MG/ML VIAL IVPUSH (00:14)
--- NOTE | 2023-11-12 00:15 | PC.NURSE ---
pt medicated per mar for 10/10 lower abdominal pain.
--- NOTE | 2023-11-12 01:54 | MHC.EDTECH ---
Called [facility] @ [phone] for pt transport home, given ETA [phone]
[2023-11-12 02:00] VITALS: BP 169/99; PULSE 100; RESP 15; TEMP 36.8; O2SAT 95
[2023-11-12] MEDS: Acetaminophen 325 MG TABLET 650 MG PO (02:41)
[2023-11-12 03:00] VITALS: BP 169/99; PULSE 100; RESP 15; TEMP 36.8; O2SAT 95
== END 2023-11-12 03:00 | disposition home or self-care (01) ==
PROVIDERS: Emergency Provider Internal Medicine
DX: R10.9 Unspecified abdominal pain (principal); E10.22 Type 1 diabetes mellitus with diabetic chronic kidney disease; R07.89 Other chest pain; I12.9 Hypertensive chronic kidney disease with stage 1 through stage 4 chronic kidney disease, or unspecified chronic kidney disease; N18.4 Chronic kidney disease, stage 4 (severe); E10.9 Type 1 diabetes mellitus without complications; I10 Essential (primary) hypertension; R11.2 Nausea with vomiting, unspecified; Z79.899 Other long term (current) drug therapy; Z79.4 Long term (current) use of insulin; Z87.891 Personal history of nicotine dependence
CPT/HCPCS: 36415; 80053; 83690; 84484; 85025; 93005; 96361; 96374; 96375; 99285; J1885; J2270; J2405

== ENCOUNTER 2023-11-16 14:28 | Outpatient (AMB) | payer MEDICAID, SELFPAY ==
[2023-11-16 14:29] VITALS: BP 160/90; PULSE 91; O2SAT 96
--- NOTE | 2023-11-16 14:29 | HO.NEPHOV_ITS ---
Vital Signs 11/16/23 14:29 Weight 172 lb BP 160/90 H Blood Pressure Location Lt brachial Position Sitting Pulse 91 Pulse Source Pulse Oximeter Pulse Oximetry (%) 96 Oxygen Delivery Method Room Air Intake Visit Reasons: Sooner appt requested per Dr Bejarano Senior Linux Unix Administrator Required: Yes Senior Linux Unix Administrator Name: [id number] jonathan Accompanied by: Father in law Allergies losartan Allergy (Verified 11/30/23 15:40) Gastrointestinal Upset valsartan Adverse Reaction (Unknown, Verified 11/30/23 15:40) GI problems Medication List - Last Reconciled 11/16/23 by Onur Bejarano MD acetone (urine) test (Ketone Urine Test strips) Prn glucose over 250, nausea or vomiting, tid atorvastatin 80 mg PO DAILY calcitriol 0.5 mcg PO DAILY ezetimibe (Zetia) 10 mg PO DAILY 90 days gabapentin 300 mg PO BEDTIME glucagon 3 mg/actuation (Baqsimi) 3 mg intranasal .prn 30 days MDD 6mg hydralazine 100 mg PO TID insulin aspart U-100 infuse up to 70 units via insulin pump subcutaneously 3 times a day; insulin glargine (Lantus Solostar U-100 Insulin) 22 units (0.22 mL) subcut DAILY PRN 30 days MDD 22 units insulin pump cart,auto,BT-cntr (Omnipod 5 G6 Intro Kit (Gen 5) subcutaneous cartridge with controller) As directed insulin pump cart,automated,BT (Omnipod 5 G6 Pods (Gen 5) subcutaneous cartridge) CHANGE POD EVERY 72 HOURS DIRECTED metoprolol succinate ER 50 mg PO DAILY metoprolol succinate ER 100 mg PO DAILY nifedipine ER 30 mg PO QAM nortriptyline 50 mg PO BEDTIME omeprazole 40 mg PO DAILY@0630 pen needle, diabetic (BD Ultra-Fine Shannan Pen Needle) As directed prn pump failure up to 4 times daily tamsulosin 0.4 mg PO QPM HPI Comments Details: 37-year-old man with type 1 diabetes mellitus and advanced CKD. He has underlying diabetic nephropathy. He was accompanied by his caregiver. Interpretation service was used. Today he has no new complaints. He is compliant with his medication. Blood sugar seems to be well controlled at home. Has AVF in left forearm- about 2 months old. Not mature yet Created by Dr.Marecki -VAscular on 06/14/23 [facility] Medical History Hypertensive urgency CKD (chronic kidney disease) stage 4, GFR 15-29 ml/min Hypertensive nephrosclerosis Diabetic gastroparesis Pancreatitis Vitamin D deficiency Hypocalcemia Background diabetic retinopathy associated with type 2 diabetes mellitus Diabetes type 1, uncontrolled Hemangioma of liver Legally blind Acid reflux Sciatica Gastritis Polyneuropathy Essential hypertension Hyperlipidemia LDL goal <70 Surgical History Hx of endoscopy Hx of circumcision Hx of appendectomy Hx of eye surgery Family History Father Diabetes mellitus Mother Diabetes mellitus Maternal Grandfather Diabetes mellitus Maternal Grandmother Diabetes mellitus Social History Household Members: Spouse Household Members Other:: and girlfriend Housing: House Do you presently have visiting nurse or other home services: Yes ([facility]) Alcohol intake: former Comment: refusing fall risk interventions. Patient Tobacco Use Status: Former Tobacco user Second Hand Smoke Exposure: No Substance Use Type: Marijuana Advance Directives Date on File: 04/13/20 service: No Current occupational status: disabled Physical Exam Vital Signs: Last Vital Signs Pulse 91 11/16/23 14:29 BP 160/90 H 11/16/23 14:29 Pulse Ox 96 11/16/23 14:29 Oxygen Delivery Method Room Air 11/16/23 14:29 Results Reviewed Nephrology Results: Hgb 10.1 g/dl (14.0-18.0) L 12/02/23 WBC 12.0 X10*3/uL (4.8-10.8) H 12/02/23 Plt Count 327 X10*3/uL (160-400) 12/02/23 Sodium 140 mmol/L (135-145) 12/02/23 Potassium 3.5 mmol/L (3.3-5.1) 12/02/23 Chloride 110 mmol/L (96-108) H 12/02/23 Carbon Dioxide 21 mmol/L (22-29) L 12/02/23 BUN 45 mg/dL (9-16) H 12/02/23 Creatinine 6.38 mg/dL (0.5-1.4) H* 12/02/23 Calcium 8.0 mg/dL (8.4-10.2) L 12/02/23 Phosphorus 2.4 mg/dL (2.7-4.5) L 12/01/23 Urine Protein 300 (3+) mg/dL (Neg-Trace) H 11/19/23 Assessment & Plan Assessment & Plan (1) 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: Code(s): E10.22 - Type 1 diabetes mellitus with diabetic chronic kidney disease; N18.5 - Chronic kidney disease, stage 5 Category: Medical (2) Diabetes type 1, uncontrolled: Code(s): E10.65 - Type 1 diabetes mellitus with hyperglycemia Category: Medical Plan 37-year-old man with stage 5 CKD due to underlying diabetic nephropathy. Renal function stable at baseline. No signs or symptoms of uremia. Fluid status is acceptable. Goal is to slow the portion disease. Current continue with current regimen. Maintain blood pressure less than 130/80 and A1c less than 7%. Continue overt nephrotoxic agents. He is being evaluated by [facility] transplant service for preemptive transplantation He has on the active list Resistant hypertension blood pressure well controlled I have encouraged him to stay on low-sodium diet. No changes were made. He is mild anemia no indication for Epogen yet. SHPT: On calcitriol AVFistula: Created on 06/05/23; Not ready for use. Needs revision before it can be accessed Orders: Orders Basic Metabolic Panel 1 Week E10.22 - Type 1 diabetes mellitus with diabetic chronic kidney disease, N18.5 - Chronic kidney disease, stage 5 Coding Level of Care Code Est Pt Level 4 (90046) Diagnoses 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 E10.22; N18.5 Uncontrolled type 1 diabetes mellitus with hyperglycemia E10.65
== END 2023-11-16 14:42 | disposition home or self-care (01) ==
PROVIDERS: Visit Provider Internal Medicine Hypertension Specialist
DX: E10.22 Type 1 diabetes mellitus with diabetic chronic kidney disease (principal); N18.5 Chronic kidney disease, stage 5; E10.65 Type 1 diabetes mellitus with hyperglycemia
CPT/HCPCS: 99214

== ENCOUNTER → 2023-11-16 14:28 | Outpatient (BNVA) | payer MEDICAID, SELFPAY | PROVIDERS: Visit Provider Internal Medicine Hypertension Specialist | DX: E10.22 Type 1 diabetes mellitus with diabetic chronic kidney disease (principal); E10.21 Type 1 diabetes mellitus with diabetic nephropathy; E10.65 Type 1 diabetes mellitus with hyperglycemia; N18.5 Chronic kidney disease, stage 5 | CPT/HCPCS: 99212 ==

== ENCOUNTER 2023-11-19 11:47 | Inpatient (IN) | payer MEDICAID, SELFPAY ==
[2023-11-19] VITALS (21 sets, daily range): BP systolic 164–242; BP diastolic 73–135; PULSE 90–113; RESP 12–22; TEMP 36.8–37.5; O2SAT 94–99; BMI 25.7; BMI 23.0
--- NOTE | ~2023-11-19 | XR_ITS ---
EXAMINATION: XR CHEST CLINICAL INFORMATION: Chest pain. COMPARISON: Chest radiograph dated October 30, 2023. TECHNIQUE: Frontal view of the chest was obtained. FINDINGS: The heart is normal in size. The lungs are clear. Pleural spaces are clear. No pneumothorax. No acute osseous abnormality. XR/XR chest 1V IMPRESSION: No acute cardiopulmonary disease. Electronically signed by: Matti Boo DO 11/19/2023 03:49 PM EDT
--- NOTE | ~2023-11-19 | XR_ITS ---
EXAMINATION: XR CHEST CLINICAL INFORMATION: Status post right IJ HD catheter COMPARISON: 11/19/2023 TECHNIQUE: Frontal view of the chest was obtained. FINDINGS: Right IJ approach central venous catheter tip projects over the thoracic inlet. The cardiomediastinal silhouette is stable. There are diffusely increased interstitial markings. No large effusion or pneumothorax. XR/XR chest 1V IMPRESSION: 1. Right IJ approach central venous catheter tip projects over the thoracic inlet. No pneumothorax. 2. Diffusely increased interstitial markings may reflect interstitial edema. Electronically signed by: Bob Tobias MD 11/21/2023 11:07 AM EDT
--- NOTE | ~2023-11-19 | CT_ITS ---
EXAMINATION: CT ABDOMEN AND PELVIS WITH CONTRAST CLINICAL INFORMATION: Abdominal pain. COMPARISON: October 30, 2023 TECHNIQUE: Multidetector volumetric images were obtained from the superior aspect of the liver through the pubic symphysis following administration 85 mL of Omnipaque 350 intravenous contrast. Sagittal and coronal reformatted images were obtained on the technologist's workstation. Oral contrast: No This CT examination was performed using dose optimization techniques as appropriate, variously including the following: *Automated exposure control *Adjustment of mA and/or kV according to patient size (this includes techniques or standardized protocols for targeted exams where dose is matched to indication/reason for exam; i.e. extremities or head) *Use of iterative reconstruction technique DLP: 482 mGy-cm FINDINGS: Motion artifact technically degrades image quality. LUNG BASES: Small hiatal hernia. LIVER, GALLBLADDER, AND BILIARY TREE: The liver is decreased in attenuation. No focal hepatic lesion or biliary ductal dilatation is present. The gallbladder is unremarkable with no evidence of radiopaque gallstones, gallbladder wall thickening, or obvious pericholecystic inflammatory changes. PANCREAS: Atrophic. SPLEEN: Not enlarged. ADRENAL GLANDS: Unremarkable. KIDNEYS AND URETERS: The kidneys are symmetric in size and enhancement. No hydronephrosis. Nonspecific perinephric stranding. BLADDER: Unremarkable. GASTROINTESTINAL TRACT: Possible wall thickening of the distal stomach. Wall thickening of the transverse colon to the rectosigmoid colon with mild pericolonic inflammatory changes. No small bowel obstruction. ABDOMINAL WALL: No significant hernia is appreciated. LYMPH NODES: Subcentimeter mesenteric and retroperitoneal lymph nodes. Stranding at the root of the mesentery. VASCULAR: Normal caliber abdominal aorta. PELVIC VISCERA: Unremarkable. OSSEOUS STRUCTURES: No destructive bone lesions. CT/CT abdomen pelvis w IV con IMPRESSION: Limited by motion artifact. Colonic wall thickening from the transverse colon through the rectosigmoid colon. Findings likely representing colitis. Infectious and inflammatory etiologies should be considered. Possible wall thickening of the distal stomach. Advise clinical correlation. Numerous prominent retroperitoneal and mesenteric lymph nodes with stranding at the root of the mesentery. This may be on a reactive basis. The appearance is unchanged from October 30, 2023. Electronically signed by: Hesham Mcdonald MD 11/19/2023 04:23 PM EDT
--- NOTE | 2023-11-19 12:08 | ED_ITS ---
HPI - Chest Pain General Chief Complaint: General Medical Stated Complaint: CP X3 HRS,ABD PAIN FROM DAYS,HIGH BP 200/100 Time Seen by Provider: 11/19/23 12:05 Source: patient and EMS Mode of arrival: EMS Limitations: no limitations History of Present Illness HPI narrative: 38 year old male ESRD diabetic with diabetic neuropathy gastroparesis, HTN followed by nephrology who he saw three days ago has a fistula that is only 2 months old not fully mature at this time. Legally blind chronic abdominal pain. He presents to the ER for chest pain. He may be EMS and now is complaining of abdominal pain patient admits to daily frequent marijuana use and gastroparesis patient just continues to say pain in [place]. Very poor limited historian. He does admit to daily marijuana use MD complaint: chest pain Related Data Home Medications ?Medication ?Instructions ?Recorded ?Confirmed omeprazole 40 mg capsule,delayed 40 mg PO DAILY@0630 01/04/20 11/16/23 release metoprolol succinate 50 mg 50 mg PO DAILY 07/29/21 11/16/23 tablet,extended release 24 hr gabapentin 300 mg capsule 300 mg PO BEDTIME 05/13/22 11/16/23 hydralazine 100 mg tablet 100 mg PO TID 05/13/22 11/16/23 metoprolol succinate 100 mg 100 mg PO DAILY 02/10/23 11/16/23 tablet,extended release 24 hr nifedipine 30 mg tablet,extended 30 mg PO QAM 02/10/23 11/16/23 release 24 hr nortriptyline 50 mg capsule 50 mg PO BEDTIME 03/09/23 11/16/23 tamsulosin 0.4 mg capsule 0.4 mg PO QPM 08/04/23 11/16/23 Previous Rx's ?Medication ?Instructions ?Recorded atorvastatin 80 mg tablet 80 mg PO DAILY #30 tabs 12/12/20 ezetimibe 10 mg tablet (Zetia) 10 mg PO DAILY 90 days #90 tabs 07/05/21 insulin pump cartridge,automated #1 ea 02/19/22 dose,BT with controller subcutaneous (Omnipod 5 G6 Intro Kit (Gen 5) subcutaneous cartridge with controller) insulin aspart U-100 100 unit/mL See Rx Instructions subcut TID #20 07/15/23 subcutaneous solution mL calcitriol 0.5 mcg capsule 0.5 mcg PO DAILY #90 caps 08/19/23 acetone (urine) test (Ketone Urine #25 ea 09/25/23 Test strips) insulin glargine 100 unit/mL (3 22 unit (0.22 mL) subcut DAILY PRN 09/25/23 mL) subcutaneous pen (Lantus pump malfunction 30 days #6 mL Solostar U-100 Insulin) pen needle, diabetic 32 gauge x #100 ea 09/25/23 (BD Ultra-Fine Shannan Pen Needle) glucagon 3 mg/actuation nasal 3 mg intranasal .prn Nonresponsive 10/23/23 spray (Baqsimi) hypoglycemia 30 days #2 ea insulin pump cart,automated,BT #10 ea 10/23/23 (Omnipod 5 G6 Pods (Gen 5) subcutaneous cartridge) Allergies Allergy/AdvReac Type Severity Reaction Status Date / Time gluten Allergy Gastrointestinal Verified 11/19/23 12:07 Upset losartan Allergy Gastrointestinal Verified 11/19/23 12:07 Upset valsartan AdvReac Unknown GI problems Verified 11/19/23 12:07 Review of Systems 2 Review of Systems: Very limited poor historian Yes Other (Uncooperative) [facility] Past Medical History Medical History Hypertensive urgency CKD (chronic kidney disease) stage 4, GFR 15-29 ml/min Hypertensive nephrosclerosis Diabetic gastroparesis Pancreatitis Vitamin D deficiency Hypocalcemia Background diabetic retinopathy associated with type 2 diabetes mellitus Diabetes type 1, uncontrolled Hemangioma of liver Legally blind Acid reflux Sciatica Gastritis Polyneuropathy Essential hypertension Hyperlipidemia LDL goal <70 Surgical History Hx of endoscopy Hx of circumcision Hx of appendectomy Hx of eye surgery Family History Family History Father Diabetes mellitus Mother Diabetes mellitus Maternal Grandfather Diabetes mellitus Maternal Grandmother Diabetes mellitus Social History Social History Household Members: Spouse Household Members Other:: and girlfriend Housing: Apartment Do you presently have visiting nurse or other home services: No Alcohol intake: former Comment: refusing fall risk interventions. Patient Tobacco Use Status: Former Tobacco user Smoked in Last 30 Days: No Second Hand Smoke Exposure: No Use of substances other than those prescribed or required for medical reasons: No Substance Use Type: Marijuana Advance Directives: Yes Advance Directives on File: Yes Advance Directives Date on File: 04/13/20 service: No Current occupational status: disabled Physical Exam 2 Vital Signs: Vital Signs: Last Vital Signs Temp 98.2 F 11/19/23 14:02 Pulse 106 H 11/19/23 14:02 Resp 18 11/19/23 14:02 BP 166/82 H 11/19/23 14:02 Pulse Ox 94 11/19/23 14:02 O2 Del Method Room Air 11/19/23 14:02 BMI result Body Mass Index 25.7 General: Well-appearing well-nourished in no signs of distress HEENT: Normocephalic atraumatic Neck: No signs of JVD, no masses no tenderness or lymphadenopathy Cardiovascular: Regular rate and rhythm Respiratory: Clear to auscultation bilaterally Abdomen: Soft tender all over no masses Extremities: Normal pedal pulses no signs of edema Skin: Dry warm no rashes Back: No tenderness full ROM Course Course Course Narrative: Concern for DKA patient did wait a long come for CT abdomen and pelvis I will admit the patient pending CT likely ICU admit Medications Administered Generic Name Dose Route Start Last Admin Trade Name Freq PRN Reason Stop Dose Admin Dextrose 1,000 mls @ 50 mls/hr 11/19/23 14:15 11/19/23 14:40 D5w IVCONT 50 mls/hr .Q20H OKSANA Administration Insulin Human Regular 100 unit in 100 mls @ 7 mls/hr 11/19/23 14:15 11/19/23 14:47 Myxredlin IVCONT 7 unit/hr .[id number] OKSANA 7 mls/hr Administration Protocol 7 UNIT/HR Discontinued Medications Generic Name Dose Route Start Last Admin Trade Name Freq PRN Reason Stop Dose Admin Diphenhydramine HCl 25 mg 11/19/23 12:12 11/19/23 12:36 Diphenhydramine Hcl 50 Mg/Ml Vial IVPUSH 11/19/23 12:13 25 mg ONCE ONE Administration Droperidol 1.25 mg 11/19/23 12:12 11/19/23 12:34 Droperidol 5 Mg/2 Ml Vial IVPUSH 11/19/23 12:13 1.25 mg ONCE ONE Administration Famotidine 20 mg 11/19/23 12:12 11/19/23 12:33 Famotidine/Pf 20 Mg/2 Ml Vial IVPUSH 11/19/23 12:13 20 mg ONCE ONE Administration Sodium Chloride 1,000 mls @ 999 mls/hr 11/19/23 12:15 11/19/23 12:39 Ns IV 11/19/23 13:15 999 mls/hr .Q1H1M OKSANA Administration Sodium Chloride 1,000 mls @ 999 mls/hr 11/19/23 12:30 11/19/23 14:02 Ns IV 11/19/23 13:30 999 mls/hr .Q1H1M OKSANA Administration Iohexol 85 ml 11/19/23 15:25 11/19/23 15:29 Iohexol 350 Mg/Ml 75 Ml Infus..Btl IV 11/19/23 15:26 85 ml ONCE ONE Administration Lorazepam 1 mg 11/19/23 12:12 11/19/23 12:38 Lorazepam 2 Mg/Ml Vial IVPUSH 11/19/23 12:13 1 mg ONCE ONE Administration Morphine Sulfate 4 mg 11/19/23 12:12 11/19/23 12:37 Morphine Sulfate 4 Mg/Ml Cartridge IVPUSH 11/19/23 12:13 4 mg ONCE ONE Administration Protocol Procedures Procedure Narrative Procedure Narrative: US guided IV placed by me at the bedside. right upper arm Patient tolerated the procedure well. Medical Decision Making Medical Decision Making [facility] Narrative: I will get a CT scan of the belly we will give treat the patient aggressively with droperidol fluids Benadryl Ativan and morphine Differential Diagnosis Differential Diagnoses: The differential diagnosis associated with the presentation includes DKA gastroparesis cannabis hyperemesis dehydration electrolyte abnormality acute surgical abdomen Consult Healthcare Provider Management of the patient was discussed with: Hospitalist Lab Data [facility] Lab Attestation statement: I reviewed the patient's lab results. 11/19/23 12:54 11/19/23 13:27 Labs: Lab Results 11/19/23 11/19/23 11/19/23 Range/Units 12:08 12:54 13:27 WBC 14.2 H (4.8-10.8) X10*3/uL RBC 4.37 L (4.60-5.80) X10*6/uL Hgb 13.3 L (14.0-18.0) g/dl Hct 38.5 L (42.0-52.0) % MCV 88.1 (80.0-98.0) fL MCH 30.4 (27.0-33.0) pg MCHC 34.5 (31.0-36.0) g/dl RDW 12.2 (11.0-16.0) % Plt Count 226 (160-400) X10*3/uL MPV 10.3 (9.4-12.4) fL Immature Gran % (Auto) 0.5 H (0.0-0.4) % Neut % (Auto) 86.4 H (45-73) % Lymph % (Auto) 7.0 L (20-40) % Kidder % (Auto) 5.7 (2-11) % Eos % (Auto) 0.1 (0-4) % Baso % (Auto) 0.3 (0-2) % Lymph # (Auto) 1.0 L (1.2-4.9) X10*3/uL Kidder # (Auto) 0.8 (0.1-1.2) X10*3/uL Eos # (Auto) 0.0 (0.0-0.4) X10*3/uL Baso # (Auto) 0.0 (0.0-0.2) X10*3/uL Abs Immat Gran (auto) 0.07 H (0.00-0.03) X10*3/uL Absolute Neuts (auto) 12.3 H (2.0-8.3) x10*3/uL Absolute Nucleated RBC 0.000 (0.0-0.012) X10*3/uL Nucleated RBC % (auto) 0.0 (0.0-0.2) /100WBC Hold Purple Top PT 10.3 L (10.9-12.4) SEC INR 0.9 (0.9-1.1) APTT 25.9 L (26.0-36.8) SEC VBG pH (7.32-7.43) VBG pCO2 mmHg VBG pO2 mmHg VBG HCO3 (22-26) mmol/L VBG O2 Saturation VBG Base Excess mmol/L Sodium 134 L (135-145) mmol/L Potassium 4.8 (3.3-5.1) mmol/L Chloride 99 (96-108) mmol/L Carbon Dioxide 22 (22-29) mmol/L Anion Gap 18 (12-20) BUN 50 H (9-16) mg/dL Creatinine 7.26 H* (0.5-1.4) mg/dL Estim Creat Clear Calc 13.2 Estimated GFR 8 POC Glucose 323 H (60-115) mg/dL Random Glucose 320 H (60-115) mg/dL Lactic Acid 1.3 (0.5-2.0) mmol/L Calcium 9.8 (8.4-10.2) mg/dL Total Bilirubin 0.5 (0.0-1.0) mg/dL Direct Bilirubin 0.2 (0.0-0.5) mg/dL AST 12 (5-37) U/L ALT 18 (0-40) U/L Alkaline Phosphatase 61 (39-117) U/L Troponin I High Sens 18.7 D (<3.5-35.0) ng/L Total Protein 6.6 (6.5-8.0) g/dL Albumin 3.8 (3.5-5.0) g/dL Lipase 12 (8-78) U/L Beta-Hydroxybutyrate 0.96 H (0.02-0.27) mmol/L Influenza Type A (PCR) NEGATIVE (Negative) Influenza Type B (PCR) NEGATIVE (Negative) RSV RNA Qual (PCR) NEGATIVE (Negative) SARS-CoV-2 RNA (RT-PCR) NEGATIVE (Negative) Blood Type Antibody Screen 11/19/23 11/19/23 11/19/23 Range/Units 13:27 13:57 14:03 WBC (4.8-10.8) X10*3/uL RBC (4.60-5.80) X10*6/uL Hgb (14.0-18.0) g/dl Hct (42.0-52.0) % MCV (80.0-98.0) fL MCH (27.0-33.0) pg MCHC (31.0-36.0) g/dl RDW (11.0-16.0) % Plt Count (160-400) X10*3/uL MPV (9.4-12.4) fL Immature Gran % (Auto) (0.0-0.4) % Neut % (Auto) (45-73) % Lymph % (Auto) (20-40) % Kidder % (Auto) (2-11) % Eos % (Auto) (0-4) % Baso % (Auto) (0-2) % Lymph # (Auto) (1.2-4.9) X10*3/uL Kidder # (Auto) (0.1-1.2) X10*3/uL Eos # (Auto) (0.0-0.4) X10*3/uL Baso # (Auto) (0.0-0.2) X10*3/uL Abs Immat Gran (auto) (0.00-0.03) X10*3/uL Absolute Neuts (auto) (2.0-8.3) x10*3/uL Absolute Nucleated RBC (0.0-0.012) X10*3/uL Nucleated RBC % (auto) (0.0-0.2) /100WBC Hold Purple Top SEE NOTE PT (10.9-12.4) SEC INR (0.9-1.1) APTT (26.0-36.8) SEC VBG pH 7.33 (7.32-7.43) VBG pCO2 9 mmHg VBG pO2 178 mmHg VBG HCO3 5 L (22-26) mmol/L VBG O2 Saturation TNP VBG Base Excess -19.9 mmol/L Sodium (135-145) mmol/L Potassium (3.3-5.1) mmol/L Chloride (96-108) mmol/L Carbon Dioxide (22-29) mmol/L Anion Gap (12-20) BUN (9-16) mg/dL Creatinine (0.5-1.4) mg/dL Estim Creat Clear Calc Estimated GFR POC Glucose (60-115) mg/dL Random Glucose (60-115) mg/dL Lactic Acid (0.5-2.0) mmol/L Calcium (8.4-10.2) mg/dL Total Bilirubin (0.0-1.0) mg/dL Direct Bilirubin (0.0-0.5) mg/dL AST (5-37) U/L ALT (0-40) U/L Alkaline Phosphatase (39-117) U/L Troponin I High Sens (<3.5-35.0) ng/L Total Protein (6.5-8.0) g/dL Albumin (3.5-5.0) g/dL Lipase (8-78) U/L Beta-Hydroxybutyrate Cancelled (0.02-0.27) mmol/L Influenza Type A (PCR) (Negative) Influenza Type B (PCR) (Negative) RSV RNA Qual (PCR) (Negative) SARS-CoV-2 RNA (RT-PCR) (Negative) Blood Type O Positive Antibody Screen NEGATIVE Independent Interpretation I performed an independent interpretation of an: EKG, Plain X-Ray and CT Scan Interpretation: Rate 91 normal sinus rhythm normal intervals no signs of ischemia QTC is 455 Radiology Impression Discussion of test interpretation with radiology: I discussed test interpretation with the radiologist and I have reviewed the radiologist's reading. External Record Review External record reviewed: Inpatient record, Office record and Outpatient record Chronic Conditions Patient?s care impacted by: Diabetes and Hypertension Social Determinants Patient?s care significantly limited by Social Determinants of Health including: Inadequate housing, Low income, Alcoholism and drug addiction in family, Problems related to primary support group and Other Social Determinant of Health Critical Care Time Critical Care Time Critical Care Time: Yes Total Critical Care Time: 50 Attestation: Patient found to be in DKA requiring insulin drip as well as glucose patient will go to the ICU I did speak with the operator technician Discharge Plan Discharge Clinical Impression: DKA (diabetic ketoacidosis), Hypertensive emergency, 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, Vomiting Patient Disposition: Admitted As Inpatient Prescriptions: No Action atorvastatin 80 mg tablet 80 mg PO DAILY Qty: 30 6RF ezetimibe [Zetia] 10 mg tablet 10 mg PO DAILY 90 Days Qty: 90 1RF (DME) Omnipod 5 G6 Intro Kit (Gen 5) Cartridge See Rx Instructions .Route Qty: 1 4RF Rx Instructions: As directed insulin aspart U-100 100 unit/mL solution See Rx Instructions subcut TID Qty: 20 5RF Rx Instructions: infuse up to 70 units via insulin pump subcutaneously 3 times a day; calcitriol 0.5 mcg capsule 0.5 mcg PO DAILY Qty: 90 3RF Baqsimi 3 mg/actuation spray,non-aerosol 3 mg intranasal .prn MDD 6mg 30 Days Qty: 2 1RF Rx Instructions: Unresponsive hypoglycemia may repeat in 15 minutes (DME) Omnipod 5 G6 Pods (Gen 5) Cartridge See Rx Instructions .ROUTE .COMPLEX Qty: 10 11RF Dose Instruction: CHANGE POD EVERY 72 HOURS DIRECTED Rx Instructions: CHANGE POD EVERY 72 HOURS DIRECTED metoprolol succinate 50 mg tablet extended release 24 hr 50 mg PO DAILY Rx Instructions: take with the 100mg metoprolol succinate 100 mg tablet extended release 24 hr 100 mg PO DAILY Rx Instructions: take with the 50mg nifedipine 30 mg tablet extended release 24hr 30 mg PO QAM omeprazole 40 mg capsule,delayed release(DR/EC) 40 mg PO DAILY@0630 gabapentin 300 mg capsule 300 mg PO BEDTIME hydralazine 100 mg tablet 100 mg PO TID nortriptyline 50 mg capsule 50 mg PO BEDTIME tamsulosin 0.4 mg capsule 0.4 mg PO QPM insulin glargine [Lantus Solostar U-100 Insulin] 100 unit/mL (3 mL) insulin pen 22 unit subcut DAILY MDD 22 units PRN (Reason: pump malfunction) 30 Days Qty: 6 4RF (DME) pen needle, diabetic [BD Ultra-Fine Shannan Pen Needle] 32 gauge x 5/32 needle See Rx Instructions .ROUTE QID Qty: 100 3RF Rx Instructions: As directed prn pump failure up to 4 times daily (DME) Ketone Urine Test Strip See Rx Instructions .ROUTE .MEDSUPPLY Qty: 25 3RF Rx Instructions: Prn glucose over 250, nausea or vomiting, tid Print Language: Finnish
--- NOTE | 2023-11-19 12:11 | ECG_ITS ---
Test Reason : CP Blood Pressure : / mmHG Vent. Rate : 091 BPM Atrial Rate : 091 BPM P-R Int : 134 ms QRS Dur : 082 ms QT Int : 370 ms P-R-T Axes : 078 077 061 degrees QTc Int : 455 ms Normal sinus rhythm Possible Left atrial enlargement Borderline ECG When compared with ECG of 11-NOV-2023 21:45, No significant change was found Referred By: Ramiro Emmanuel Electronically Signed By:RAFFAELE MILLER
[2023-11-19 12:12] LABS: Glucose, Whole Blood 323 mg/dL (60-115)
[2023-11-19] MEDS: Famotidine/PF 20 MG/2 ML VIAL IVPUSH (12:33)
[2023-11-19] MEDS: droPERidol 5 MG/2 ML VIAL 1.25 MG IVPUSH (12:34)
[2023-11-19] MEDS: diphenhydrAMINE HCL 50 MG/ML VIAL 25 MG IVPUSH (12:36)
[2023-11-19] MEDS: Morphine Sulfate 4 MG/ML CARTRIDGE IVPUSH (12:37)
[2023-11-19] MEDS: LORazepam 2 MG/ML VIAL 1 MG IVPUSH (12:38)
[2023-11-19] MEDS: 0.9 % Sodium Chloride 1,000 ML 999 ML IV ×3 (12:39→20:11)
[2023-11-19 12:59] LABS: MANUAL DIFF FLAG NO
[2023-11-19 13:02] LABS: Basophils Percent Auto 0.3 % (0-2); Eosinophils Percent Auto 0.1 % (0-4); Hematocrit 38.5 % (42.0-52.0); Hemoglobin 13.3 g/dl (14.0-18.0); Imm Gran Abs Auto 0.07 X10*3/uL (0.00-0.03); Imm Gran Pct Auto 0.5 % (0.0-0.4); Mean Corpuscular HGB Conc 34.5 g/dl (31.0-36.0); Mean Corpuscular Hemoglobin 30.4 pg (27.0-33.0); Mean Corpuscular Volume 88.1 fL (80.0-98.0); Mean Platelet Volume 10.3 fL (9.4-12.4); Monocytes Absolute Auto 0.8 X10*3/uL (0.1-1.2); Monocytes Percent Auto 5.7 % (2-11); Neutrophils Absolute Auto 12.3 x10*3/uL (2.0-8.3); Neutrophils Percent Auto 86.4 % (45-73); Platelet Count 226 X10*3/uL (160-400); Red Blood Count 4.37 X10*6/uL (4.60-5.80); Red Cell Distribution Width 12.2 % (11.0-16.0); White Blood Count 14.2 X10*3/uL (4.8-10.8)
[2023-11-19 13:09] LABS: INTERNATIONAL NORM RATIO 0.9 (0.9-1.1); Prothrombin Time 10.3 SEC (10.9-12.4)
[2023-11-19 13:11] LABS: Partial Thromboplastin Time 25.9 SEC (26.0-36.8)
[2023-11-19 13:20] LABS: Troponin-I High Sensitivity 18.7 ng/L (<3.5-35.0)
[2023-11-19 13:41] LABS: Influenza A PCR NEGATIVE (Negative); Influenza B PCR NEGATIVE (Negative); Resp Syncy Virus RNA Qual PCR NEGATIVE (Negative); SARS COV2 PCR INHOUSE NEGATIVE (Negative)
[2023-11-19 13:53] LABS: Lactic Acid 1.3 mmol/L (0.5-2.0)
[2023-11-19 13:59] LABS: Beta-Hydroxybutyrate 0.96 mmol/L (0.02-0.27)
[2023-11-19 14:04] LABS: Alanine Aminotransferase 18 U/L (0-40); Albumin Level 3.8 g/dL (3.5-5.0); Alkaline Phosphatase 61 U/L (39-117); Anion Gap 18 (12-20); Aspartate Amino Transferase 12 U/L (5-37); Bilirubin Direct 0.2 mg/dL (0.0-0.5); Bilirubin Total 0.5 mg/dL (0.0-1.0); Blood Urea Nitrogen 50 mg/dL (9-16); Calcium 9.8 mg/dL (8.4-10.2); Carbon Dioxide 22 mmol/L (22-29); Chloride 99 mmol/L (96-108); Creatinine Clr Calc Pharmacy 13.2; Estimated Glomerular Filt Rate 8; Glucose Random 320 mg/dL (60-115); Lipase 12 U/L (8-78); Potassium 4.8 mmol/L (3.3-5.1); Sodium 134 mmol/L (135-145); Total Protein 6.6 g/dL (6.5-8.0)
[2023-11-19 14:08] LABS: VBG Base Excess -19.9 mmol/L; VBG HCO3 5 mmol/L (22-26); VBG pCO2 9 mmHg; VBG pH 7.33 (7.32-7.43); VBG pO2 178 mmHg
[2023-11-19 14:08] LABS: Venous Blood Gas Refer to POC result
[2023-11-19] MEDS: Dextrose 5 % 1,000 ML 50 ML IVCONT (14:40)
[2023-11-19] MEDS: Insulin Regular/NS 100 UNIT/100 ML PLAST..BAG 7 UNIT IVCONT (14:47)
[2023-11-19] MEDS: iohexoL 350 MG/ML 75 ML INFUS..BTL 85 ML IV (15:29)
--- NOTE | 2023-11-19 15:40 | PC.NURSE ---
while in ctiv blew, insulin and dextrose stopped.,provider to place ultasound guided iv
--- NOTE | 2023-11-19 16:07 | PC.NURSE ---
Provider at bedside attempting to place ultasound guided IV
--- NOTE | 2023-11-19 16:29 | PC.NURSE ---
ultasound guided iv placed by provider, iv and dextrose resumed
[2023-11-19 16:35] LABS: Appearance Urine Clear; Color Urine Yellow; Glucose Urine UA 500 mg/dL (Negative); Leukocyte Esterase Urine Negative (Negative); Nitrite Urine Negative (Negative); Specific Gravity - Urine 1.015 (1.005-1.025); UMIC TRIGGER UACC YES; Urine Blood Negative (Negative); Urine Ketones Trace mg/dL (Negative); Urine Protein 300 (3+) mg/dL (Neg-Trace)
--- NOTE | 2023-11-19 16:48 | PC.NURSE ---
Provider notified of elevated BP, no new orders at this time
--- NOTE | 2023-11-19 16:54 | PC.NURSE ---
IV pump removed from patients abdomen
[2023-11-19] MEDS: Labetalol HCL 100 MG/20 ML VIAL 10 MG IVPUSH ×5 (16:56→23:46)
[2023-11-19 16:58] LABS: Glucose, Whole Blood 290 mg/dL (60-115)
[2023-11-19 16:58] LABS: Glucose, Whole Blood 312 mg/dL (60-115)
[2023-11-19 17:00] LABS: Bacteria Urine None Seen (None Seen); Hyaline Casts Urine 0-2 /LPF (0-2); RBC Urine 0-2 /HPF (0-2); Squamous Epithelial Cell Urine 0-2 /HPF (0-2); WBC Urine 0-5 /HPF (0-5)
[2023-11-19 17:05] LABS: Glucose, Whole Blood 335 mg/dL (60-115)
[2023-11-19] MEDS: Piperacillin Sodium/Tazobactam 2.25 GM in 0.9 % Sodium Chloride 50 ML IV (17:10)
--- NOTE | 2023-11-19 17:24 | PC.NURSE ---
Insulin drip titrated up per policy. No prior titration d/t patient not having iv access d/t difficult stick and provider having difficulty placing ultrasound guided line
[2023-11-19 17:29] LABS: Anion Gap 17 (12-20); Blood Urea Nitrogen 49 mg/dL (9-16); Calcium 9.1 mg/dL (8.4-10.2); Carbon Dioxide 22 mmol/L (22-29); Chloride 99 mmol/L (96-108); Creatinine Clr Calc Pharmacy 13.7; Estimated Glomerular Filt Rate 9; Glucose Random 365 mg/dL (60-115); Potassium 6.6 mmol/L (3.3-5.1); Sodium 131 mmol/L (135-145)
[2023-11-19 18:23] LABS: Glucose, Whole Blood 420 mg/dL (60-115)
--- NOTE | 2023-11-19 18:25 | PM.CCHP ---
History of Present Illness Date of Service: 11/19/23 Chief Complaint: Nausea/Vomiting Patient is a 38 Y M with hypertension, type I diabetes mellitus, c/b end-stage renal disease, blindness, as well as multiple admissions for intractable nausea/vomiting setting of chronic marijuana use, presenting initially to emergency department with nausea/vomiting, found to have elevated glucose, anion-gap, and beta-hydroxybutyrate, admitted ICU for DKA management Review of Systems Review of Systems: Yes all other systems are reviewed and are negative [facility] Past Medical History Medical History Hypertensive urgency CKD (chronic kidney disease) stage 4, GFR 15-29 ml/min Hypertensive nephrosclerosis Diabetic gastroparesis Pancreatitis Vitamin D deficiency Hypocalcemia Background diabetic retinopathy associated with type 2 diabetes mellitus Diabetes type 1, uncontrolled Hemangioma of liver Legally blind Acid reflux Sciatica Gastritis Polyneuropathy Essential hypertension Hyperlipidemia LDL goal <70 Family History Family History Father Diabetes mellitus Mother Diabetes mellitus Maternal Grandfather Diabetes mellitus Maternal Grandmother Diabetes mellitus Surgical History Surgical History Hx of endoscopy Hx of circumcision Hx of appendectomy Hx of eye surgery Social History Social History Household Members: Spouse Household Members Other:: and girlfriend Housing: Apartment Do you presently have visiting nurse or other home services: No Alcohol intake: former Comment: refusing fall risk interventions. Patient Tobacco Use Status: Former Tobacco user Smoked in Last 30 Days: No Second Hand Smoke Exposure: No Use of substances other than those prescribed or required for medical reasons: No Substance Use Type: Marijuana Advance Directives: Yes Advance Directives on File: Yes Advance Directives Date on File: 04/13/20 service: No Current occupational status: disabled Meds Allergies Allergy/AdvReac Type Severity Reaction Status Date / Time gluten Allergy Gastrointestinal Verified 11/19/23 12:07 Upset losartan Allergy Gastrointestinal Verified 11/19/23 12:07 Upset valsartan AdvReac Unknown GI problems Verified 11/19/23 12:07 Active Medications: Current Medications Hydralazine HCl (Hydralazine Hcl 50 Mg Tablet) 100 mg PO TID OKSANA; Protocol Dextrose (D5w) 1,000 mls @ 50 mls/hr IVCONT .Q20H OKSANA Last Admin: 11/19/23 14:40 Dose: 50 mls/hr Insulin Human Regular (Myxredlin) 100 unit in 100 mls @ 7 mls/hr IVCONT .[id number] [place]SANA; Protocol Last Titration: 11/19/23 17:23 Dose: 10.5 unit/hr, 10.5 mls/hr Dextrose (D10) 250 mls @ 750 mls/hr IV Q30M PRN PRN Reason: BG <70 Piperacillin Sod/Tazobactam (Sod 2.25 gm/ Sodium Chloride) 50 mls @ 100 mls/hr IV Q8H OKSANA Last Infusion: 11/19/23 17:43 Dose: Infused Labetalol HCl (Labetalol Hcl 100 Mg/20 Ml Vial) 10 mg IVPUSH Q2H PRN PRN Reason: Hypertension Last Admin: 11/19/23 16:56 Dose: 10 mg Metoprolol Succinate (Metoprolol Succinate Er 100 Mg Tab.Er.24h) 100 mg PO DAILY [facility]; Protocol Nifedipine (Nifedipine Er 30 Mg Tab.Er.24) 30 mg PO DAILY [place]SA[facility]; Protocol Ondansetron HCl (Ondansetron Hcl 4 Mg/2 Ml Vial) 4 mg IVPUSH Q4H PRN PRN Reason: Nausea Home Medications ?Medication ?Instructions ?Recorded ?Confirmed ?Last Taken ?Type omeprazole 40 mg capsule,delayed 40 mg PO DAILY@0630 01/04/20 11/16/23 02/09/23 History release metoprolol succinate 50 mg 50 mg PO DAILY 07/29/21 11/16/23 02/09/23 History tablet,extended release 24 hr gabapentin 300 mg capsule 300 mg PO BEDTIME 05/13/22 11/16/23 02/09/23 History hydralazine 100 mg tablet 100 mg PO TID 05/13/22 11/16/23 02/09/23 History metoprolol succinate 100 mg 100 mg PO DAILY 02/10/23 11/16/23 02/09/23 History tablet,extended release 24 hr nifedipine 30 mg tablet,extended 30 mg PO QAM 02/10/23 11/16/23 02/09/23 History release 24 hr nortriptyline 50 mg capsule 50 mg PO BEDTIME 03/09/23 11/16/23 Unknown History tamsulosin 0.4 mg capsule 0.4 mg PO QPM 08/04/23 11/16/23 Unknown History Physical Exam Vital Signs: Vital Signs: Last Vital Signs Temp 98.7 F 11/19/23 16:30 Pulse 106 H 11/19/23 17:07 Resp 18 11/19/23 17:07 BP 191/95 H 11/19/23 17:07 Pulse Ox 95 11/19/23 17:07 O2 Del Method Room Air 11/19/23 17:07 BMI result Body Mass Index 25.7 Results Labs 11/19/23 12:54 11/19/23 16:51 Labs: Laboratory Results - last 24 hr 11/19/23 11/19/23 11/19/23 12:08 12:54 13:27 MCV 88.1 MCH 30.4 MCHC 34.5 RDW 12.2 Plt Count 226 MPV 10.3 Immature Gran % (Auto) 0.5 H Neut % (Auto) 86.4 H Lymph % (Auto) 7.0 L Foard % (Auto) 5.7 Eos % (Auto) 0.1 Baso % (Auto) 0.3 Lymph # (Auto) 1.0 L Foard # (Auto) 0.8 Eos # (Auto) 0.0 Baso # (Auto) 0.0 Abs Immat Gran (auto) 0.07 H Absolute Neuts (auto) 12.3 H Absolute Nucleated RBC 0.000 Nucleated RBC % (auto) 0.0 Hold Purple Top PT 10.3 L INR 0.9 APTT 25.9 L VBG pH VBG pCO2 VBG pO2 VBG HCO3 VBG O2 Saturation VBG Base Excess Anion Gap 18 Estim Creat Clear Calc 13.2 Estimated GFR 8 POC Glucose 323 H Random Glucose 320 H Lactic Acid 1.3 Calcium 9.8 Total Bilirubin 0.5 Direct Bilirubin 0.2 AST 12 ALT 18 Alkaline Phosphatase 61 Troponin I High Sens 18.7 D Total Protein 6.6 Albumin 3.8 Lipase 12 Beta-Hydroxybutyrate 0.96 H Urine Color Urine Appearance Urine pH Ur Specific Bandon Urine Protein Urine Glucose (UA) Urine Ketones Urine Blood Urine Nitrite Ur Leukocyte Esterase Urine RBC Urine WBC Ur Squamous Epith Cells Urine Bacteria Hyaline Casts Influenza Type A (PCR) NEGATIVE Influenza Type B (PCR) NEGATIVE RSV RNA Qual (PCR) NEGATIVE SARS-CoV-2 RNA (RT-PCR) NEGATIVE Blood Type Antibody Screen 11/19/23 11/19/23 11/19/23 13:27 13:57 14:03 MCV MCH MCHC RDW Plt Count MPV Immature Gran % (Auto) Neut % (Auto) Lymph % (Auto) Foard % (Auto) Eos % (Auto) Baso % (Auto) Lymph # (Auto) Foard # (Auto) Eos # (Auto) Baso # (Auto) Abs Immat Gran (auto) Absolute Neuts (auto) Absolute Nucleated RBC Nucleated RBC % (auto) Hold Purple Top SEE NOTE PT INR APTT VBG pH 7.33 VBG pCO2 9 VBG pO2 178 VBG HCO3 5 L VBG O2 Saturation TNP VBG Base Excess -19.9 Anion Gap Estim Creat Clear Calc Estimated GFR POC Glucose Random Glucose Lactic Acid Calcium Total Bilirubin Direct Bilirubin AST ALT Alkaline Phosphatase Troponin I High Sens Total Protein Albumin Lipase Beta-Hydroxybutyrate Cancelled Urine Color Urine Appearance Urine pH Ur Specific Bandon Urine Protein Urine Glucose (UA) Urine Ketones Urine Blood Urine Nitrite Ur Leukocyte Esterase Urine RBC Urine WBC Ur Squamous Epith Cells Urine Bacteria Hyaline Casts Influenza Type A (PCR) Influenza Type B (PCR) RSV RNA Qual (PCR) SARS-CoV-2 RNA (RT-PCR) Blood Type O Positive Antibody Screen NEGATIVE 11/19/23 11/19/23 11/19/23 14:39 15:37 16:28 MCV MCH MCHC RDW Plt Count MPV Immature Gran % (Auto) Neut % (Auto) Lymph % (Auto) Foard % (Auto) Eos % (Auto) Baso % (Auto) Lymph # (Auto) Foard # (Auto) Eos # (Auto) Baso # (Auto) Abs Immat Gran (auto) Absolute Neuts (auto) Absolute Nucleated RBC Nucleated RBC % (auto) Hold Purple Top PT INR APTT VBG pH VBG pCO2 VBG pO2 VBG HCO3 VBG O2 Saturation VBG Base Excess Anion Gap Estim Creat Clear Calc Estimated GFR POC Glucose 290 H 312 H Random Glucose Lactic Acid Calcium Total Bilirubin Direct Bilirubin AST ALT Alkaline Phosphatase Troponin I High Sens Total Protein Albumin Lipase Beta-Hydroxybutyrate Urine Color Yellow Urine Appearance Clear Urine pH 6.0 Ur Specific Bandon 1.015 Urine Protein 300 (3+) H Urine Glucose (UA) 500 H Urine Ketones Trace Urine Blood Negative Urine Nitrite Negative Ur Leukocyte Esterase Negative Urine RBC 0-2 Urine WBC 0-5 Ur Squamous Epith Cells 0-2 Urine Bacteria None Seen Hyaline Casts 0-2 Influenza Type A (PCR) Influenza Type B (PCR) RSV RNA Qual (PCR) SARS-CoV-2 RNA (RT-PCR) Blood Type Antibody Screen 11/19/23 11/19/23 11/19/23 16:51 17:01 18:18 MCV MCH MCHC RDW Plt Count MPV Immature Gran % (Auto) Neut % (Auto) Lymph % (Auto) Foard % (Auto) Eos % (Auto) Baso % (Auto) Lymph # (Auto) Foard # (Auto) Eos # (Auto) Baso # (Auto) Abs Immat Gran (auto) Absolute Neuts (auto) Absolute Nucleated RBC Nucleated RBC % (auto) Hold Purple Top PT INR APTT VBG pH VBG pCO2 VBG pO2 VBG HCO3 VBG O2 Saturation VBG Base Excess Anion Gap 17 Estim Creat Clear Calc 13.7 Estimated GFR 9 POC Glucose 335 H 420 H* Random Glucose 365 H* Lactic Acid Calcium 9.1 D Total Bilirubin Direct Bilirubin AST ALT Alkaline Phosphatase Troponin I High Sens Total Protein Albumin Lipase Beta-Hydroxybutyrate Urine Color Urine Appearance Urine pH Ur Specific Bandon Urine Protein Urine Glucose (UA) Urine Ketones Urine Blood Urine Nitrite Ur Leukocyte Esterase Urine RBC Urine WBC Ur Squamous Epith Cells Urine Bacteria Hyaline Casts Influenza Type A (PCR) Influenza Type B (PCR) RSV RNA Qual (PCR) SARS-CoV-2 RNA (RT-PCR) Blood Type Antibody Screen Imaging Radiologist's Impressions: Impressions Chest X-Ray 11/19/23 12:12 IMPRESSION: No acute cardiopulmonary disease. Electronically signed by: Matti Boo DO 11/19/2023 03:49 PM EDT Abdomen/Pelvis CT 11/19/23 15:15 IMPRESSION: Limited by motion artifact. Colonic wall thickening from the transverse colon through the rectosigmoid colon. Findings likely representing colitis. Infectious and inflammatory etiologies should be considered. Possible wall thickening of the distal stomach. Advise clinical correlation. Numerous prominent retroperitoneal and mesenteric lymph nodes with stranding at the root of the mesentery. This may be on a reactive basis. The appearance is unchanged from October 30, 2023. Electronically signed by: Hesham Mcdonald MD 11/19/2023 04:23 PM EDT Assessment and Plan (1) DKA (diabetic ketoacidosis): Qualifiers: Diabetes mellitus type: type 1 Diabetes mellitus complication detail: without coma Qualified Code(s): E10.10 - Type 1 diabetes mellitus with ketoacidosis without coma Status: Acute (2) Vomiting: Qualifiers: Nausea presence: with nausea Status: Acute Plan Patient is a 38 Y M with hypertension, type I diabetes mellitus, c/b end-stage renal disease, blindness, as well as multiple admissions for intractable nausea/vomiting setting of chronic marijuana use, presenting initially to emergency department with nausea/vomiting, found to have elevated glucose, anion-gap, and beta-hydroxybutyrate, admitted ICU for DKA management N: no acute issues CV: hypertension; to resume home medications; labetalol PRN R: no acute issues GI: nausea/vomiting, likely multi-factorial, d/t DKA, colitis, chronic marijuana use; to follow-up stool panel; zofran PRN : ESRD; to closely monitor electrolytes in setting of DKA H: no acute issues ID: CT A/P suggestive of colitis; empiric zosyn E: type I diabetes mellitus, poorly controlled; DKA, on DKA protocol P: no acute issues
[2023-11-19] MEDS: Insulin Regular, Human 100 UNIT/ML 10 ML VIAL 10 UNIT IVPUSH (18:40)
[2023-11-19 19:10] LABS: Glucose, Whole Blood 368 mg/dL (60-115)
[2023-11-19 19:44] LABS: Magnesium 1.9 mg/dL (1.6-2.6)
[2023-11-19 20:01] LABS: Glucose, Whole Blood 313 mg/dL (60-115)
[2023-11-19] MEDS: Enoxaparin Sodium 30 MG/0.3 ML SYRINGE SUBCUT (20:09)
[2023-11-19] MEDS: Metoprolol Succinate ER 100 MG TAB.ER.24H PO (20:10)
[2023-11-19] MEDS: hydrALAZINE HCl 50 MG TABLET 100 MG PO (20:11)
--- NOTE | 2023-11-19 20:13 | PHA.MEDREC ---
Pharmacy Consult ? Medication Reconciliation Pharmacy has completed the medication reconciliation. Spoke to patient via turbine blade assembler and confirmed medication list. Patient said he uses insulin aspart tid per sliding scale and lantus 16 to 20 units at bedtime. He takes both metoprolol ER 100 mg and 50 mg.
[2023-11-19 21:04] LABS: Glucose, Whole Blood 209 mg/dL (60-115)
[2023-11-19 21:27] LABS: Anion Gap 17 (12-20); Blood Urea Nitrogen 53 mg/dL (9-16); Calcium 8.7 mg/dL (8.4-10.2); Carbon Dioxide 22 mmol/L (22-29); Chloride 102 mmol/L (96-108); Creatinine Clr Calc Pharmacy 13.4; Estimated Glomerular Filt Rate 9; Glucose Random 252 mg/dL (60-115); Potassium 4.1 mmol/L (3.3-5.1); Sodium 137 mmol/L (135-145)
[2023-11-19] MEDS: KCl 20 mEq in 5% Dex/0.9% Sod 20 MEQ/1,000 ML IV.SOLN 150 MEQ IVCONT (21:44)
[2023-11-19 22:06] LABS: Glucose, Whole Blood 138 mg/dL (60-115)
--- NOTE | 2023-11-19 22:11 | PC.NURSE ---
Patient arrived to ICU from ED at 18:53. Ship'S Master assumed care of patient at this time. Seen this admission for DKA. Pt is A&Ox4. Mohawk speaking primarily; associate sales used at bedside. Pt is legally blind; staff ensuring to announce presence on entering room and prior to performing care. SR-ST on tele. Denies headache, chest pain, palpitations, sob, n/v. Patient hypertensive requiring multiple doses of IV labetalol given per covering THERMITE BOMB LOADER Iveth Dennis, as well as scheduled po doses of metoprolol and hydralazine. Manual BPs done on RUE, THERMITE BOMB LOADER updated on BPs. Pt remains asymptomatic, observed resting in bed with eyes closed at this time of writing with breathing observed even and unlabored without distress. Pt has left forearm fistula. C/D/I with +bruit and +thrill. Insulin gtt infusing at 15.75units/hr (15.75ml/hr), pump consistent with MAR on arrival to unit. Continues with Q1h POCs per protocol. Insulin gtt titrated per protocol or [employer]ERM[employer] verbal order (see MAR and corresponding POCs or insulin infusion order form for full details). Trending labs as ordered. 1L NS bolus given for dehydration per THERMITE [employer]OM[employer] LO[employer]ER; prolonged infusion time of bolus due to phlebotomy difficulty obtaining peripheral lab draw. THERMITE BOM[employer] LOADER made aware. D5/NS+20kCL initiated after bolus ended. Bed alarm on and safety measures in place. Call lizarraga placed in left hand and educated on use. Please see admission/shift assessments for full details. Plan of care continues.
[2023-11-19 23:02] LABS: Glucose, Whole Blood 117 mg/dL (60-115)
[2023-11-20] VITALS (28 sets, daily range): BP systolic 140–191; BP diastolic 66–100; PULSE 92–112; RESP 10–26; TEMP 36.2–37; O2SAT 88–100; BMI 23.8
[2023-11-20 00:09] LABS: Glucose, Whole Blood 91 mg/dL (60-115)
[2023-11-20 01:02] LABS: Glucose, Whole Blood 74 mg/dL (60-115)
[2023-11-20 01:10] LABS: Hematocrit 33.9 % (42.0-52.0); Hemoglobin 11.8 g/dl (14.0-18.0); Mean Corpuscular HGB Conc 34.8 g/dl (31.0-36.0); Mean Corpuscular Hemoglobin 30.3 pg (27.0-33.0); Mean Corpuscular Volume 87.1 fL (80.0-98.0); Mean Platelet Volume 10.2 fL (9.4-12.4); Platelet Count 228 X10*3/uL (160-400); Red Blood Count 3.89 X10*6/uL (4.60-5.80); Red Cell Distribution Width 12.6 % (11.0-16.0); White Blood Count 13.6 X10*3/uL (4.8-10.8)
[2023-11-20 01:27] LABS: Anion Gap 16 (12-20); Blood Urea Nitrogen 53 mg/dL (9-16); Calcium 8.6 mg/dL (8.4-10.2); Carbon Dioxide 20 mmol/L (22-29); Chloride 108 mmol/L (96-108); Creatinine Clr Calc Pharmacy 13.7; Estimated Glomerular Filt Rate 9; Glucose Random 81 mg/dL (60-115); Potassium 4.3 mmol/L (3.3-5.1); Sodium 140 mmol/L (135-145)
[2023-11-20] MEDS: Piperacillin Sodium/Tazobactam 2.25 GM in 0.9 % Sodium Chloride 50 ML IV ×3 (01:31→17:27)
[2023-11-20] MEDS: Labetalol HCL 100 MG/20 ML VIAL 10 MG IVPUSH ×2 (01:33→18:04)
[2023-11-20 02:04] LABS: Glucose, Whole Blood 92 mg/dL (60-115)
[2023-11-20 03:01] LABS: Glucose, Whole Blood 149 mg/dL (60-115)
[2023-11-20] MEDS: KCl 20 mEq in 5% Dex/0.9% Sod 20 MEQ/1,000 ML IV.SOLN 200 MEQ IVCONT (03:32)
[2023-11-20 03:59] LABS: Glucose, Whole Blood 217 mg/dL (60-115)
[2023-11-20 05:06] LABS: Glucose, Whole Blood 218 mg/dL (60-115)
[2023-11-20 05:40] LABS: VBG Base Excess -1.4 mmol/L; VBG HCO3 24 mmol/L (22-26); VBG pCO2 46 mmHg; VBG pH 7.33 (7.32-7.43); VBG pO2 49 mmHg
[2023-11-20 05:45] LABS: Venous Blood Gas Refer to POC result
[2023-11-20] MEDS: Insulin Regular/NS 100 UNIT/100 ML PLAST..BAG 6 UNIT IVCONT (05:53)
[2023-11-20 05:58] LABS: Glucose, Whole Blood 197 mg/dL (60-115)
[2023-11-20 06:04] LABS: MANUAL DIFF FLAG NO
[2023-11-20 06:05] LABS: Basophils Percent Auto 0.4 % (0-2); Eosinophils Absolute Auto 0.1 X10*3/uL (0.0-0.4); Eosinophils Percent Auto 0.6 % (0-4); Hematocrit 34.4 % (42.0-52.0); Hemoglobin 11.7 g/dl (14.0-18.0); Imm Gran Abs Auto 0.06 X10*3/uL (0.00-0.03); Imm Gran Pct Auto 0.5 % (0.0-0.4); Lymphocytes Absolute Auto 1.9 X10*3/uL (1.2-4.9); Lymphocytes Percent Auto 16.8 % (20-40); Mean Corpuscular Hemoglobin 30.5 pg (27.0-33.0); Mean Corpuscular Volume 89.6 fL (80.0-98.0); Monocytes Absolute Auto 1.1 X10*3/uL (0.1-1.2); Monocytes Percent Auto 9.6 % (2-11); Neutrophils Percent Auto 72.1 % (45-73); Platelet Count 210 X10*3/uL (160-400); Red Blood Count 3.84 X10*6/uL (4.60-5.80); Red Cell Distribution Width 12.9 % (11.0-16.0); White Blood Count 11.2 X10*3/uL (4.8-10.8)
[2023-11-20 06:13] LABS: Estimated Average Glucose 143 mg/dL; Hemoglobin A1C 140.9487 umol/L; Hemoglobin A1c % 6.6 % (<6.0); Total Hemoglobin (HGBA1C) 2901.5808 umol/L
[2023-11-20 06:23] LABS: Anion Gap 15 (12-20); Blood Urea Nitrogen 55 mg/dL (9-16); Calcium 8.3 mg/dL (8.4-10.2); Carbon Dioxide 23 mmol/L (22-29); Chloride 106 mmol/L (96-108); Creatinine Clr Calc Pharmacy 12.8; Estimated Glomerular Filt Rate 8; Glucose Random 217 mg/dL (60-115); Magnesium 1.9 mg/dL (1.6-2.6); Phosphorus 3.4 mg/dL (2.7-4.5); Sodium 139 mmol/L (135-145)
[2023-11-20] MEDS: hydrALAZINE HCl 50 MG TABLET 100 MG PO ×3 (06:35→20:07)
[2023-11-20] MEDS: NIFEdipine ER 30 MG TAB.ER.24 PO (06:35)
[2023-11-20] MEDS: Dextrose 5 % and Lactated Ring 1,000 ML 200 ML IVCONT ×3 (06:35→15:50)
[2023-11-20] MEDS: Metoprolol Succinate ER 100 MG TAB.ER.24H PO (06:35)
[2023-11-20 07:17] LABS: Glucose, Whole Blood 195 mg/dL (60-115)
[2023-11-20 08:07] LABS: Glucose, Whole Blood 165 mg/dL (60-115)
[2023-11-20] MEDS: HYDROmorphone HCl 0.5 MG/0.5 ML SYRINGE 0.25 MG IVPUSH ×3 (08:14→21:44)
--- NOTE | 2023-11-20 08:23 | P.PNCC_ITS ---
Subjective Subjective Date of Service: 11/20/23 Interval History: no significant overnight events Critical Care Time (minutes): 60 Physical Exam 2 Vital Signs: Vital Signs: Last Vital Signs Temp 98.6 F 11/20/23 03:57 Pulse 95 11/20/23 07:54 Resp 16 11/20/23 07:54 BP 182/96 H 11/20/23 07:49 Pulse Ox 97 11/20/23 07:54 O2 Del Method Room Air 11/20/23 07:54 O2 Flow Rate 2 11/20/23 06:00 BMI result Body Mass Index 23.8 Const: General: cooperative, healthy appearing, comfortable, no acute distress, well developed, alert, awake and Physically active O rientation/consciousness: patient oriented x3 HEENT: Head: Yes normal to inspection, Yes normocephalic and Yes atraumatic Eyes: General: appearance normal, both eyes and all related structures Neck: Neck: Yes normal visual inspection, Yes full ROM, Yes no meningeal signs, Yes trachea midline and Yes supple Chest: Chest palpation & inspection: normal inspection of the chest Resp: Other: no appreciable rales, rhonchi, wheezing Effort & Inspection: normal respiratory effort Cardio: Rate: regular rate Rhythm: regular rhythm GI: Other: some appreciable tenderness to palpation throughout Inspection: Yes normal to inspection, No Abdominal wall edema and No distended Palpation (GI): Soft to palpation, not firm, nontender, no guarding and not rigid : Male General Exam: Yes normal external exam Skin: General skin exam: no rashes or lesions noted Neuro: General: patient oriented x3, tone normal, moves all extremities, no meningeal signs and no focal motor deficits Extrem: General: Yes normal to inspection, Yes full ROM, Yes capillary refill normal and Yes no clubbing, cyanosis or edema Psych: Appearance: grossly normal Objective Data Labs 11/20/23 05:31 11/20/23 05:31 Labs: Laboratory Results - last 24 hr 11/19/23 11/19/23 11/19/23 12:08 12:54 13:27 WBC 14.2 H RBC 4.37 L Hgb 13.3 L Hct 38.5 L MCV 88.1 MCH 30.4 MCHC 34.5 RDW 12.2 Plt Count 226 MPV 10.3 Immature Gran % (Auto) 0.5 H Neut % (Auto) 86.4 H Lymph % (Auto) 7.0 L Harmon % (Auto) 5.7 Eos % (Auto) 0.1 Baso % (Auto) 0.3 Lymph # (Auto) 1.0 L Harmon # (Auto) 0.8 Eos # (Auto) 0.0 Baso # (Auto) 0.0 Abs Immat Gran (auto) 0.07 H Absolute Neuts (auto) 12.3 H Absolute Nucleated RBC 0.000 Nucleated RBC % (auto) 0.0 Hold Purple Top PT 10.3 L INR 0.9 APTT 25.9 L VBG pH VBG pCO2 VBG pO2 VBG HCO3 VBG O2 Saturation VBG Base Excess Sodium 134 L Potassium 4.8 Chloride 99 Carbon Dioxide 22 Anion Gap 18 BUN 50 H Creatinine 7.26 H* Estim Creat Clear Calc 13.2 Estimated GFR 8 POC Glucose 323 H Random Glucose 320 H Estimat Average Glucose Hemoglobin A1c % Lactic Acid 1.3 Calcium 9.8 Phosphorus Magnesium Total Bilirubin 0.5 Direct Bilirubin 0.2 AST 12 ALT 18 Alkaline Phosphatase 61 Troponin I High Sens 18.7 D Total Protein 6.6 Albumin 3.8 Lipase 12 Beta-Hydroxybutyrate 0.96 H Urine Color Urine Appearance Urine pH Ur Specific Reynolds Urine Protein Urine Glucose (UA) Urine Ketones Urine Blood Urine Nitrite Ur Leukocyte Esterase Urine RBC Urine WBC Ur Squamous Epith Cells Urine Bacteria Hyaline Casts Influenza Type A (PCR) NEGATIVE Influenza Type B (PCR) NEGATIVE RSV RNA Qual (PCR) NEGATIVE SARS-CoV-2 RNA (RT-PCR) NEGATIVE Blood Type Antibody Screen 11/19/23 11/19/23 11/19/23 13:27 13:57 14:03 WBC RBC Hgb Hct MCV MCH MCHC RDW Plt Count MPV Immature Gran % (Auto) Neut % (Auto) Lymph % (Auto) Harmon % (Auto) Eos % (Auto) Baso % (Auto) Lymph # (Auto) Harmon # (Auto) Eos # (Auto) Baso # (Auto) Abs Immat Gran (auto) Absolute Neuts (auto) Absolute Nucleated RBC Nucleated RBC % (auto) Hold Purple Top SEE NOTE PT INR APTT VBG pH 7.33 VBG pCO2 9 VBG pO2 178 VBG HCO3 5 L VBG O2 Saturation TNP VBG Base Excess -19.9 Sodium Potassium Chloride Carbon Dioxide Anion Gap BUN Creatinine Estim Creat Clear Calc Estimated GFR POC Glucose Random Glucose Estimat Average Glucose Hemoglobin A1c % Lactic Acid Calcium Phosphorus Magnesium Total Bilirubin Direct Bilirubin AST ALT Alkaline Phosphatase Troponin I High Sens Total Protein Albumin Lipase Beta-Hydroxybutyrate Cancelled Urine Color Urine Appearance Urine pH Ur Specific Reynolds Urine Protein Urine Glucose (UA) Urine Ketones Urine Blood Urine Nitrite Ur Leukocyte Esterase Urine RBC Urine WBC Ur Squamous Epith Cells Urine Bacteria Hyaline Casts Influenza Type A (PCR) Influenza Type B (PCR) RSV RNA Qual (PCR) SARS-CoV-2 RNA (RT-PCR) Blood Type O Positive Antibody Screen NEGATIVE 11/19/23 11/19/23 11/19/23 14:39 15:37 16:28 WBC RBC Hgb Hct MCV MCH MCHC RDW Plt Count MPV Immature Gran % (Auto) Neut % (Auto) Lymph % (Auto) Harmon % (Auto) Eos % (Auto) Baso % (Auto) Lymph # (Auto) Harmon # (Auto) Eos # (Auto) Baso # (Auto) Abs Immat Gran (auto) Absolute Neuts (auto) Absolute Nucleated RBC Nucleated RBC % (auto) Hold Purple Top PT INR APTT VBG pH VBG pCO2 VBG pO2 VBG HCO3 VBG O2 Saturation VBG Base Excess Sodium Potassium Chloride Carbon Dioxide Anion Gap BUN Creatinine Estim Creat Clear Calc Estimated GFR POC Glucose 290 H 312 H Random Glucose Estimat Average Glucose Hemoglobin A1c % Lactic Acid Calcium Phosphorus Magnesium Total Bilirubin Direct Bilirubin AST ALT Alkaline Phosphatase Troponin I High Sens Total Protein Albumin Lipase Beta-Hydroxybutyrate Urine Color Yellow Urine Appearance Clear Urine pH 6.0 Ur Specific Reynolds 1.015 Urine Protein 300 (3+) H Urine Glucose (UA) 500 H Urine Ketones Trace Urine Blood Negative Urine Nitrite Negative Ur Leukocyte Esterase Negative Urine RBC 0-2 Urine WBC 0-5 Ur Squamous Epith Cells 0-2 Urine Bacteria None Seen Hyaline Casts 0-2 Influenza Type A (PCR) Influenza Type B (PCR) RSV RNA Qual (PCR) SARS-CoV-2 RNA (RT-PCR) Blood Type Antibody Screen 11/19/23 11/19/23 11/19/23 16:51 16:51 16:51 WBC RBC Hgb Hct MCV MCH MCHC RDW Plt Count MPV Immature Gran % (Auto) Neut % (Auto) Lymph % (Auto) Harmon % (Auto) Eos % (Auto) Baso % (Auto) Lymph # (Auto) Harmon # (Auto) Eos # (Auto) Baso # (Auto) Abs Immat Gran (auto) Absolute Neuts (auto) Absolute Nucleated RBC Nucleated RBC % (auto) Hold Purple Top PT INR APTT VBG pH VBG pCO2 VBG pO2 VBG HCO3 VBG O2 Saturation VBG Base Excess Sodium 131 L Cancelled Potassium 6.6 H* D Cancelled Chloride 99 Carbon Dioxide Anion Gap BUN Creatinine Estim Creat Clear Calc Estimated GFR POC Glucose Random Glucose Estimat Average Glucose Hemoglobin A1c % Lactic Acid Calcium Phosphorus Magnesium Total Bilirubin Direct Bilirubin AST ALT Alkaline Phosphatase Troponin I High Sens Total Protein Albumin Lipase Beta-Hydroxybutyrate Urine Color Urine Appearance Urine pH Ur Specific Reynolds Urine Protein Urine Glucose (UA) Urine Ketones Urine Blood Urine Nitrite Ur Leukocyte Esterase Urine RBC Urine WBC Ur Squamous Epith Cells Urine Bacteria Hyaline Casts Influenza Type A (PCR) Influenza Type B (PCR) RSV RNA Qual (PCR) SARS-CoV-2 RNA (RT-PCR) Blood Type Antibody Screen 11/19/23 11/19/23 11/19/23 16:51 16:51 16:51 WBC RBC Hgb Hct MCV MCH MCHC RDW Plt Count MPV Immature Gran % (Auto) Neut % (Auto) Lymph % (Auto) Harmon % (Auto) Eos % (Auto) Baso % (Auto) Lymph # (Auto) Harmon # (Auto) Eos # (Auto) Baso # (Auto) Abs Immat Gran (auto) Absolute Neuts (auto) Absolute Nucleated RBC Nucleated RBC % (auto) Hold Purple Top PT INR APTT VBG pH VBG pCO2 VBG pO2 VBG HCO3 VBG O2 Saturation VBG Base Excess Sodium Potassium Chloride Cancelled Carbon Dioxide 22 Cancelled Anion Gap 17 Cancelled BUN 49 H Creatinine Estim Creat Clear Calc Estimated GFR POC Glucose Random Glucose Estimat Average Glucose Hemoglobin A1c % Lactic Acid Calcium Phosphorus Magnesium Total Bilirubin Direct Bilirubin AST ALT Alkaline Phosphatase Troponin I High Sens Total Protein Albumin Lipase Beta-Hydroxybutyrate Urine Color Urine Appearance Urine pH Ur Specific Reynolds Urine Protein Urine Glucose (UA) Urine Ketones Urine Blood Urine Nitrite Ur Leukocyte Esterase Urine RBC Urine WBC Ur Squamous Epith Cells Urine Bacteria Hyaline Casts Influenza Type A (PCR) Influenza Type B (PCR) RSV RNA Qual (PCR) SARS-CoV-2 RNA (RT-PCR) Blood Type Antibody Screen 11/19/23 11/19/23 11/19/23 16:51 16:51 16:51 WBC RBC Hgb Hct MCV MCH MCHC RDW Plt Count MPV Immature Gran % (Auto) Neut % (Auto) Lymph % (Auto) Harmon % (Auto) Eos % (Auto) Baso % (Auto) Lymph # (Auto) Harmon # (Auto) Eos # (Auto) Baso # (Auto) Abs Immat Gran (auto) Absolute Neuts (auto) Absolute Nucleated RBC Nucleated RBC % (auto) Hold Purple Top PT INR APTT VBG pH VBG pCO2 VBG pO2 VBG HCO3 VBG O2 Saturation VBG Base Excess Sodium Potassium Chloride Carbon Dioxide Anion Gap BUN Cancelled Creatinine 6.98 H* Cancelled Estim Creat Clear Calc 13.7 Cancelled Estimated GFR 9 POC Glucose Random Glucose Estimat Average Glucose Hemoglobin A1c % Lactic Acid Calcium Phosphorus Magnesium Total Bilirubin Direct Bilirubin AST ALT Alkaline Phosphatase Troponin I High Sens Total Protein Albumin Lipase Beta-Hydroxybutyrate Urine Color Urine Appearance Urine pH Ur Specific Reynolds Urine Protein Urine Glucose (UA) Urine Ketones Urine Blood Urine Nitrite Ur Leukocyte Esterase Urine RBC Urine WBC Ur Squamous Epith Cells Urine Bacteria Hyaline Casts Influenza Type A (PCR) Influenza Type B (PCR) RSV RNA Qual (PCR) SARS-CoV-2 RNA (RT-PCR) Blood Type Antibody Screen 11/19/23 11/19/23 11/19/23 16:51 16:51 16:51 WBC RBC Hgb Hct MCV MCH MCHC RDW Plt Count MPV Immature Gran % (Auto) Neut % (Auto) Lymph % (Auto) Harmon % (Auto) Eos % (Auto) Baso % (Auto) Lymph # (Auto) Harmon # (Auto) Eos # (Auto) Baso # (Auto) Abs Immat Gran (auto) Absolute Neuts (auto) Absolute Nucleated RBC Nucleated RBC % (auto) Hold Purple Top PT INR APTT VBG pH VBG pCO2 VBG pO2 VBG HCO3 VBG O2 Saturation VBG Base Excess Sodium Potassium Chloride Carbon Dioxide Anion Gap BUN Creatinine Estim Creat Clear Calc Estimated GFR Cancelled POC Glucose Random Glucose 365 H* Cancelled Estimat Average Glucose Hemoglobin A1c % Lactic Acid Calcium 9.1 D Cancelled Phosphorus Magnesium 1.9 Total Bilirubin Direct Bilirubin AST ALT Alkaline Phosphatase Troponin I High Sens Total Protein Albumin Lipase Beta-Hydroxybutyrate Urine Color Urine Appearance Urine pH Ur Specific Reynolds Urine Protein Urine Glucose (UA) Urine Ketones Urine Blood Urine Nitrite Ur Leukocyte Esterase Urine RBC Urine WBC Ur Squamous Epith Cells Urine Bacteria Hyaline Casts Influenza Type A (PCR) Influenza Type B (PCR) RSV RNA Qual (PCR) SARS-CoV-2 RNA (RT-PCR) Blood Type Antibody Screen 11/19/23 11/19/23 11/19/23 16:51 17:01 18:18 WBC RBC Hgb Hct MCV MCH MCHC RDW Plt Count MPV Immature Gran % (Auto) Neut % (Auto) Lymph % (Auto) Harmon % (Auto) Eos % (Auto) Baso % (Auto) Lymph # (Auto) Harmon # (Auto) Eos # (Auto) Baso # (Auto) Abs Immat Gran (auto) Absolute Neuts (auto) Absolute Nucleated RBC Nucleated RBC % (auto) Hold Purple Top PT INR APTT VBG pH VBG pCO2 VBG pO2 VBG HCO3 VBG O2 Saturation VBG Base Excess Sodium Potassium Chloride Carbon Dioxide Anion Gap BUN Creatinine Estim Creat Clear Calc Estimated GFR POC Glucose 335 H 420 H* Random Glucose Estimat Average Glucose Hemoglobin A1c % Lactic Acid Calcium Phosphorus Magnesium Cancelled Total Bilirubin Direct Bilirubin AST ALT Alkaline Phosphatase Troponin I High Sens Total Protein Albumin Lipase Beta-Hydroxybutyrate Urine Color Urine Appearance Urine pH Ur Specific Reynolds Urine Protein Urine Glucose (UA) Urine Ketones Urine Blood Urine Nitrite Ur Leukocyte Esterase Urine RBC Urine WBC Ur Squamous Epith Cells Urine Bacteria Hyaline Casts Influenza Type A (PCR) Influenza Type B (PCR) RSV RNA Qual (PCR) SARS-CoV-2 RNA (RT-PCR) Blood Type Antibody Screen 11/19/23 11/19/23 11/19/23 19:06 19:58 20:42 WBC RBC Hgb Hct MCV MCH MCHC RDW Plt Count MPV Immature Gran % (Auto) Neut % (Auto) Lymph % (Auto) Harmon % (Auto) Eos % (Auto) Baso % (Auto) Lymph # (Auto) Harmon # (Auto) Eos # (Auto) Baso # (Auto) Abs Immat Gran (auto) Absolute Neuts (auto) Absolute Nucleated RBC Nucleated RBC % (auto) Hold Purple Top PT INR APTT VBG pH VBG pCO2 VBG pO2 VBG HCO3 VBG O2 Saturation VBG Base Excess Sodium 137 Potassium 4.1 D Chloride 102 Carbon Dioxide 22 Anion Gap 17 BUN 53 H Creatinine 7.12 H* Estim Creat Clear Calc 13.4 Estimated GFR 9 POC Glucose 368 H* 313 H Random Glucose 252 H Estimat Average Glucose Hemoglobin A1c % Lactic Acid Calcium 8.7 Phosphorus Magnesium 2.0 Total Bilirubin Direct Bilirubin AST ALT Alkaline Phosphatase Troponin I High Sens Total Protein Albumin Lipase Beta-Hydroxybutyrate Urine Color Urine Appearance Urine pH Ur Specific Reynolds Urine Protein Urine Glucose (UA) Urine Ketones Urine Blood Urine Nitrite Ur Leukocyte Esterase Urine RBC Urine WBC Ur Squamous Epith Cells Urine Bacteria Hyaline Casts Influenza Type A (PCR) Influenza Type B (PCR) RSV RNA Qual (PCR) SARS-CoV-2 RNA (RT-PCR) Blood Type Antibody Screen 11/19/23 11/19/23 11/19/23 21:01 22:02 22:57 WBC RBC Hgb Hct MCV MCH MCHC RDW Plt Count MPV Immature Gran % (Auto) Neut % (Auto) Lymph % (Auto) Harmon % (Auto) Eos % (Auto) Baso % (Auto) Lymph # (Auto) Harmon # (Auto) Eos # (Auto) Baso # (Auto) Abs Immat Gran (auto) Absolute Neuts (auto) Absolute Nucleated RBC Nucleated RBC % (auto) Hold Purple Top PT INR APTT VBG pH VBG pCO2 VBG pO2 VBG HCO3 VBG O2 Saturation VBG Base Excess Sodium Potassium Chloride Carbon Dioxide Anion Gap BUN Creatinine Estim Creat Clear Calc Estimated GFR POC Glucose 209 H 138 H 117 H Random Glucose Estimat Average Glucose Hemoglobin A1c % Lactic Acid Calcium Phosphorus Magnesium Total Bilirubin Direct Bilirubin AST ALT Alkaline Phosphatase Troponin I High Sens Total Protein Albumin Lipase Beta-Hydroxybutyrate Urine Color Urine Appearance Urine pH Ur Specific Reynolds Urine Protein Urine Glucose (UA) Urine Ketones Urine Blood Urine Nitrite Ur Leukocyte Esterase Urine RBC Urine WBC Ur Squamous Epith Cells Urine Bacteria Hyaline Casts Influenza Type A (PCR) Influenza Type B (PCR) RSV RNA Qual (PCR) SARS-CoV-2 RNA (RT-PCR) Blood Type Antibody Screen 11/20/23 11/20/23 11/20/23 00:05 00:58 00:59 WBC 13.6 H RBC 3.89 L Hgb 11.8 L Hct 33.9 L MCV 87.1 MCH 30.3 MCHC 34.8 RDW 12.6 Plt Count 228 MPV 10.2 Immature Gran % (Auto) Neut % (Auto) Lymph % (Auto) Harmon % (Auto) Eos % (Auto) Baso % (Auto) Lymph # (Auto) Harmon # (Auto) Eos # (Auto) Baso # (Auto) Abs Immat Gran (auto) Absolute Neuts (auto) Absolute Nucleated RBC 0.000 Nucleated RBC % (auto) 0.0 Hold Purple Top PT INR APTT VBG pH VBG pCO2 VBG pO2 VBG HCO3 VBG O2 Saturation VBG Base Excess Sodium 140 Potassium 4.3 Chloride 108 Carbon Dioxide 20 L Anion Gap 16 BUN 53 H Creatinine 6.99 H* Estim Creat Clear Calc 13.7 Estimated GFR 9 POC Glucose 91 74 Random Glucose 81 Estimat Average Glucose Hemoglobin A1c % Lactic Acid Calcium 8.6 Phosphorus Magnesium 2.0 Total Bilirubin Direct Bilirubin AST ALT Alkaline Phosphatase Troponin I High Sens Total Protein Albumin Lipase Beta-Hydroxybutyrate Urine Color Urine Appearance Urine pH Ur Specific Reynolds Urine Protein Urine Glucose (UA) Urine Ketones Urine Blood Urine Nitrite Ur Leukocyte Esterase Urine RBC Urine WBC Ur Squamous Epith Cells Urine Bacteria Hyaline Casts Influenza Type A (PCR) Influenza Type B (PCR) RSV RNA Qual (PCR) SARS-CoV-2 RNA (RT-PCR) Blood Type Antibody Screen 11/20/23 11/20/23 11/20/23 02:00 02:54 03:56 WBC RBC Hgb Hct MCV MCH MCHC RDW Plt Count MPV Immature Gran % (Auto) Neut % (Auto) Lymph % (Auto) Harmon % (Auto) Eos % (Auto) Baso % (Auto) Lymph # (Auto) Harmon # (Auto) Eos # (Auto) Baso # (Auto) Abs Immat Gran (auto) Absolute Neuts (auto) Absolute Nucleated RBC Nucleated RBC % (auto) Hold Purple Top PT INR APTT VBG pH VBG pCO2 VBG pO2 VBG HCO3 VBG O2 Saturation VBG Base Excess Sodium Potassium Chloride Carbon Dioxide Anion Gap BUN Creatinine Estim Creat Clear Calc Estimated GFR POC Glucose 92 149 H 217 H Random Glucose Estimat Average Glucose Hemoglobin A1c % Lactic Acid Calcium Phosphorus Magnesium Total Bilirubin Direct Bilirubin AST ALT Alkaline Phosphatase Troponin I High Sens Total Protein Albumin Lipase Beta-Hydroxybutyrate Urine Color Urine Appearance Urine pH Ur Specific Reynolds Urine Protein Urine Glucose (UA) Urine Ketones Urine Blood Urine Nitrite Ur Leukocyte Esterase Urine RBC Urine WBC Ur Squamous Epith Cells Urine Bacteria Hyaline Casts Influenza Type A (PCR) Influenza Type B (PCR) RSV RNA Qual (PCR) SARS-CoV-2 RNA (RT-PCR) Blood Type Antibody Screen 11/20/23 11/20/23 11/20/23 05:02 05:29 05:31 WBC 11.2 H RBC 3.84 L Hgb 11.7 L Hct 34.4 L MCV 89.6 MCH 30.5 MCHC 34.0 RDW 12.9 Plt Count 210 MPV 10.0 Immature Gran % (Auto) 0.5 H Neut % (Auto) 72.1 Lymph % (Auto) 16.8 L Harmon % (Auto) 9.6 Eos % (Auto) 0.6 Baso % (Auto) 0.4 Lymph # (Auto) 1.9 Harmon # (Auto) 1.1 Eos # (Auto) 0.1 Baso # (Auto) 0.0 Abs Immat Gran (auto) 0.06 H Absolute Neuts (auto) 8.0 Absolute Nucleated RBC 0.000 Nucleated RBC % (auto) 0.0 Hold Purple Top PT INR APTT VBG pH 7.33 VBG pCO2 46 VBG pO2 49 VBG HCO3 24 VBG O2 Saturation 78.0 VBG Base Excess -1.4 Sodium 139 Potassium 5.0 Chloride 106 Carbon Dioxide 23 Anion Gap 15 BUN 55 H Creatinine 7.49 H* Estim Creat Clear Calc 12.8 Estimated GFR 8 POC Glucose 218 H Random Glucose 217 H Estimat Average Glucose 143 Hemoglobin A1c % 6.6 H Lactic Acid Calcium 8.3 L Phosphorus 3.4 Magnesium 1.9 Total Bilirubin Direct Bilirubin AST ALT Alkaline Phosphatase Troponin I High Sens Total Protein Albumin Lipase Beta-Hydroxybutyrate Urine Color Urine Appearance Urine pH Ur Specific Reynolds Urine Protein Urine Glucose (UA) Urine Ketones Urine Blood Urine Nitrite Ur Leukocyte Esterase Urine RBC Urine WBC Ur Squamous Epith Cells Urine Bacteria Hyaline Casts Influenza Type A (PCR) Influenza Type B (PCR) RSV RNA Qual (PCR) SARS-CoV-2 RNA (RT-PCR) Blood Type Antibody Screen 11/20/23 11/20/23 11/20/23 05:53 07:01 08:02 WBC RBC Hgb Hct MCV MCH MCHC RDW Plt Count MPV Immature Gran % (Auto) Neut % (Auto) Lymph % (Auto) Harmon % (Auto) Eos % (Auto) Baso % (Auto) Lymph # (Auto) Harmon # (Auto) Eos # (Auto) Baso # (Auto) Abs Immat Gran (auto) Absolute Neuts (auto) Absolute Nucleated RBC Nucleated RBC % (auto) Hold Purple Top PT INR APTT VBG pH VBG pCO2 VBG pO2 VBG HCO3 VBG O2 Saturation VBG Base Excess Sodium Potassium Chloride Carbon Dioxide Anion Gap BUN Creatinine Estim Creat Clear Calc Estimated GFR POC Glucose 197 H 195 H 165 H Random Glucose Estimat Average Glucose Hemoglobin A1c % Lactic Acid Calcium Phosphorus Magnesium Total Bilirubin Direct Bilirubin AST ALT Alkaline Phosphatase Troponin I High Sens Total Protein Albumin Lipase Beta-Hydroxybutyrate Urine Color Urine Appearance Urine pH Ur Specific Reynolds Urine Protein Urine Glucose (UA) Urine Ketones Urine Blood Urine Nitrite Ur Leukocyte Esterase Urine RBC Urine WBC Ur Squamous Epith Cells Urine Bacteria Hyaline Casts Influenza Type A (PCR) Influenza Type B (PCR) RSV RNA Qual (PCR) SARS-CoV-2 RNA (RT-PCR) Blood Type Antibody Screen Progress Note: A&P Assessment and plan (1) DKA (diabetic ketoacidosis): Status: Acute (2) 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: Status: Acute (3) Colitis: Status: Resolved Plan Patient is a 38 Y M with hypertension, type I diabetes mellitus, c/b end-stage renal disease, blindness, as well as multiple admissions for intractable nausea/vomiting setting of chronic marijuana use, presenting initially to emergency department with nausea/vomiting, found to have elevated glucose, anion-gap, and beta-hydroxybutyrate, admitted ICU for DKA management N: no acute issues CV: hypertension; home medications; labetalol PRN R: no acute issues GI: nausea/vomiting/abdominal pain, likely multi-factorial, d/t DKA, colitis, chronic marijuana use; to follow-up stool panel; zofran PRN : ESRD; to closely monitor electrolytes in setting of DKA H: no acute issues ID: CT A/P suggestive of colitis; empiric zosyn E: type I diabetes mellitus, poorly controlled; DKA, on DKA protocol P: no acute issues Quality Stroke Does the patient have a stroke diagnosis?: No VTE Prior VTE?: No VTE Risk Level:: Medical - moderate - high VTE Device Contraindication: N/A - Device Ordered VTE Drug Contraindication: N/A - Med Ordered
[2023-11-20 09:07] LABS: Anion Gap 13 (12-20); Blood Urea Nitrogen 52 mg/dL (9-16); Calcium 8.1 mg/dL (8.4-10.2); Carbon Dioxide 21 mmol/L (22-29); Chloride 110 mmol/L (96-108); Creatinine Clr Calc Pharmacy 12.9; Estimated Glomerular Filt Rate 8; Glucose Random 146 mg/dL (60-115); Magnesium 1.9 mg/dL (1.6-2.6); Phosphorus 3.4 mg/dL (2.7-4.5); Potassium 4.5 mmol/L (3.3-5.1); Sodium 139 mmol/L (135-145)
[2023-11-20 09:18] LABS: Glucose, Whole Blood 115 mg/dL (60-115)
[2023-11-20 10:13] LABS: Glucose, Whole Blood 118 mg/dL (60-115)
[2023-11-20] MEDS: Pantoprazole Sodium 40 MG/10 ML VIAL IVPUSH ×2 (10:36→15:52)
[2023-11-20] MEDS: Acetaminophen 1,000 MG/100 ML PIGGYBACK 400 MG IV ×2 (10:37→17:26)
[2023-11-20 11:08] LABS: Glucose, Whole Blood 85 mg/dL (60-115)
--- NOTE | 2023-11-20 11:10 | PC.NURSE ---
1105 poc blood glucose 85. paged . per , hold insulin gtt x1 hour and recheck. pt denies symptoms.
[2023-11-20 11:42] LABS: Glucose, Whole Blood 95 mg/dL (60-115)
[2023-11-20 12:37] LABS: Glucose, Whole Blood 116 mg/dL (60-115)
[2023-11-20 13:06] LABS: Anion Gap 14 (12-20); Blood Urea Nitrogen 52 mg/dL (9-16); Calcium 8.3 mg/dL (8.4-10.2); Carbon Dioxide 21 mmol/L (22-29); Chloride 108 mmol/L (96-108); Creatinine Clr Calc Pharmacy 12.2; Estimated Glomerular Filt Rate 8; Glucose Random 120 mg/dL (60-115); Magnesium 1.8 mg/dL (1.6-2.6); Phosphorus 3.7 mg/dL (2.7-4.5); Potassium 4.7 mmol/L (3.3-5.1); Sodium 138 mmol/L (135-145)
[2023-11-20 13:31] LABS: Glucose, Whole Blood 124 mg/dL (60-115)
[2023-11-20] MEDS: Calcium Gluconate/NaCl,Iso-Osm 1 GM/50 ML PLAST..BAG IV (13:45)
--- NOTE | 2023-11-20 14:32 | MHC.CM.PN ---
Male 38yrs DX DKA An dermatology specialist was used for the patient interview. Patient is legally blind. He lives with his S.O.. She is also his HCP; which is on file. 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 His Father in law is his FINAL ASSEMBLER. Patient states that he does not use an AD. He has an A-V fistula. It is not matured yet. Patient reports that nephrology staes that he does not need HD yet. DP home with family assist and assist from [employer]. He will arrange for transportation home from a family member.
[2023-11-20 14:37] LABS: Glucose, Whole Blood 135 mg/dL (60-115)
[2023-11-20] MEDS: Magnesium Sulfate/D5W 1 GM/100 ML PIGGYBACK IV (14:59)
--- NOTE | 2023-11-20 15:20 | PC.NURSE ---
following MD order to titrate insulin gtt.
[2023-11-20 15:30] LABS: Glucose, Whole Blood 115 mg/dL (60-115)
[2023-11-20 16:33] LABS: Glucose, Whole Blood 108 mg/dL (60-115)
[2023-11-20 17:12] LABS: Anion Gap 14 (12-20); Blood Urea Nitrogen 51 mg/dL (9-16); Calcium 8.4 mg/dL (8.4-10.2); Carbon Dioxide 21 mmol/L (22-29); Chloride 108 mmol/L (96-108); Creatinine Clr Calc Pharmacy 11.8; Estimated Glomerular Filt Rate 7; Glucose Random 116 mg/dL (60-115); Phosphorus 3.5 mg/dL (2.7-4.5); Potassium 4.7 mmol/L (3.3-5.1); Sodium 138 mmol/L (135-145)
[2023-11-20 17:44] LABS: Glucose, Whole Blood 99 mg/dL (60-115)
[2023-11-20] MEDS: Lidocaine 4 % Patch ADH..PATCH 1 PATCH TRANSDERMA (18:38)
[2023-11-20 18:39] LABS: Glucose, Whole Blood 92 mg/dL (60-115)
[2023-11-20] MEDS: Insulin Glargine,Hum.rec.anlog 100 UNIT/ML 10 ML VIAL 30 UNIT SUBCUT (18:39)
--- NOTE | 2023-11-20 19:04 | PC.NURSE ---
p: alteration in comfort i: per care plan e: pt reporting severe pain in the LLQ and right shoulder. tylenol IV and dilaudid given with little effect. MD paged re: ineffectiveness of pain meds. ordered lidocaine patch for right shoulder. heat packs applied to LLQ for comfort. p: alteration in endocrine i: per care plan e: on insulin gtt and D5/LR throughout the day. at 1830, lantus given. oncoming shift to give meal and stop both drips at 1930. this was relayed during handoff. noted that patient had not voided in 6-8 hours, bladder scanned for 89 ml. MD aware.
[2023-11-20] MEDS: Enoxaparin Sodium 30 MG/0.3 ML SYRINGE SUBCUT (19:28)
[2023-11-20 19:50] LABS: Glucose, Whole Blood 77 mg/dL (60-115)
[2023-11-20 21:11] LABS: Glucose, Whole Blood 153 mg/dL (60-115)
[2023-11-20 21:16] LABS: Anion Gap 16 (12-20); Blood Urea Nitrogen 48 mg/dL (9-16); Calcium 8.3 mg/dL (8.4-10.2); Carbon Dioxide 19 mmol/L (22-29); Chloride 107 mmol/L (96-108); Creatinine Clr Calc Pharmacy 11.5; Estimated Glomerular Filt Rate 7; Glucose Random 124 mg/dL (60-115); Phosphorus 3.8 mg/dL (2.7-4.5); Potassium 4.8 mmol/L (3.3-5.1); Sodium 137 mmol/L (135-145)
[2023-11-20] MEDS: Insulin Lispro 100 UNIT/ML 3 ML VIAL 10 UNIT SUBCUT (21:47)
[2023-11-21] VITALS (33 sets, daily range): BP systolic 120–201; BP diastolic 59–109; PULSE 93–120; RESP 10–29; TEMP 36.6–37.2; O2SAT 90–96; BMI 24.3
[2023-11-21] MEDS: Piperacillin Sodium/Tazobactam 2.25 GM in 0.9 % Sodium Chloride 50 ML IV ×3 (01:08→16:48)
[2023-11-21 05:09] LABS: Glucose, Whole Blood 218 mg/dL (60-115)
[2023-11-21 05:38] LABS: Basophils Percent Auto 0.3 % (0-2); Eosinophils Absolute Auto 0.1 X10*3/uL (0.0-0.4); Eosinophils Percent Auto 1.1 % (0-4); Hematocrit 33.8 % (42.0-52.0); Hemoglobin 11.4 g/dl (14.0-18.0); Imm Gran Abs Auto 0.04 X10*3/uL (0.00-0.03); Imm Gran Pct Auto 0.4 % (0.0-0.4); Lymphocytes Absolute Auto 1.3 X10*3/uL (1.2-4.9); Lymphocytes Percent Auto 12.7 % (20-40); MANUAL DIFF FLAG NO; Mean Corpuscular HGB Conc 33.7 g/dl (31.0-36.0); Mean Corpuscular Hemoglobin 30.4 pg (27.0-33.0); Mean Corpuscular Volume 90.1 fL (80.0-98.0); Mean Platelet Volume 10.3 fL (9.4-12.4); Monocytes Absolute Auto 0.7 X10*3/uL (0.1-1.2); Monocytes Percent Auto 7.1 % (2-11); Neutrophils Absolute Auto 7.8 x10*3/uL (2.0-8.3); Neutrophils Percent Auto 78.4 % (45-73); Platelet Count 203 X10*3/uL (160-400); Red Blood Count 3.75 X10*6/uL (4.60-5.80); Red Cell Distribution Width 12.9 % (11.0-16.0)
[2023-11-21] MEDS: Pantoprazole Sodium 40 MG/10 ML VIAL IVPUSH ×2 (06:21→16:47)
[2023-11-21 06:28] LABS: Anion Gap 18 (12-20); Blood Urea Nitrogen 53 mg/dL (9-16); Calcium 8.4 mg/dL (8.4-10.2); Carbon Dioxide 18 mmol/L (22-29); Chloride 104 mmol/L (96-108); Creatinine Clr Calc Pharmacy 10.2; Estimated Glomerular Filt Rate 6; Glucose Random 221 mg/dL (60-115); Phosphorus 4.2 mg/dL (2.7-4.5); Sodium 134 mmol/L (135-145)
[2023-11-21] MEDS: Calcium Gluconate/NaCl,Iso-Osm 1 GM/50 ML PLAST..BAG IV (06:52)
[2023-11-21 07:24] LABS: Glucose, Whole Blood 246 mg/dL (60-115)
[2023-11-21] MEDS: HYDROmorphone HCl 0.5 MG/0.5 ML SYRINGE 0.25 MG IVPUSH ×3 (07:26→16:47)
[2023-11-21] MEDS: Furosemide 40 MG/4 ML VIAL IVPUSH (07:45)
--- NOTE | 2023-11-21 08:00 | P.PNCC_ITS ---
Subjective Subjective Date of Service: 11/21/23 Interval History: improvement of hyperglycemia; interval hyperkalemia; patient given calcium, insulin/glucose, bicarbonate, and furosemide gtt Critical Care Time (minutes): 60 Physical Exam 2 Vital Signs: Vital Signs: Last Vital Signs Temp 97.8 F 11/21/23 05:00 Pulse 104 H 11/21/23 07:00 Resp 20 11/21/23 07:00 BP 198/80 H 11/21/23 07:00 Pulse Ox 96 11/21/23 07:00 O2 Del Method Room Air 11/21/23 07:00 O2 Flow Rate 1 11/21/23 04:00 BMI result Body Mass Index 24.3 Const: General: cooperative, healthy appearing, comfortable, no acute distress, well developed, alert, awake and Physically active O rientation/consciousness: patient oriented x3 HEENT: Head: Yes normal to inspection, Yes normocephalic and Yes atraumatic Eyes: General: appearance normal, both eyes and all related structures Neck: Neck: Yes normal visual inspection, Yes full ROM, Yes no meningeal signs, Yes trachea midline and Yes supple Chest: Chest palpation & inspection: normal inspection of the chest Resp: Other: no appreciable rales, rhonchi, wheezing Effort & Inspection: normal respiratory effort Cardio: Rate: regular rate Rhythm: regular rhythm GI: Inspection: Yes normal to inspection, No Abdominal wall edema and No distended Palpation (GI): Soft to palpation, not firm, nontender, no guarding and not rigid Skin: General skin exam: no rashes or lesions noted Neuro: General: patient oriented x3, tone normal, moves all extremities and no meningeal signs Extrem: General: Yes normal to inspection, Yes full ROM, Yes capillary refill normal and Yes no clubbing, cyanosis or edema Psych: Appearance: grossly normal Objective Data Labs 11/21/23 04:55 11/21/23 04:55 Labs: Laboratory Results - last 24 hr 11/20/23 11/20/23 11/20/23 08:02 08:29 09:15 WBC RBC Hgb Hct MCV MCH MCHC RDW Plt Count MPV Immature Gran % (Auto) Neut % (Auto) Lymph % (Auto) [place] % (Auto) Eos % (Auto) Baso % (Auto) Lymph # (Auto) [place] # (Auto) Eos # (Auto) Baso # (Auto) Abs Immat Gran (auto) Absolute Neuts (auto) Absolute Nucleated RBC Nucleated RBC % (auto) Sodium 139 Potassium 4.5 Chloride 110 H Carbon Dioxide 21 L Anion Gap 13 BUN 52 H Creatinine 7.40 H* Estim Creat Clear Calc 12.9 Estimated GFR 8 POC Glucose 165 H 115 Random Glucose 146 H Calcium 8.1 L Phosphorus 3.4 Magnesium 1.9 11/20/23 11/20/23 11/20/23 10:06 11:04 11:38 WBC RBC Hgb Hct MCV MCH MCHC RDW Plt Count MPV Immature Gran % (Auto) Neut % (Auto) Lymph % (Auto) [place] % (Auto) Eos % (Auto) Baso % (Auto) Lymph # (Auto) [place] # (Auto) Eos # (Auto) Baso # (Auto) Abs Immat Gran (auto) Absolute Neuts (auto) Absolute Nucleated RBC Nucleated RBC % (auto) Sodium Potassium Chloride Carbon Dioxide Anion Gap BUN Creatinine Estim Creat Clear Calc Estimated GFR POC Glucose 118 H 85 95 Random Glucose Calcium Phosphorus Magnesium 11/20/23 11/20/23 11/20/23 12:33 12:34 13:27 WBC RBC Hgb Hct MCV MCH MCHC RDW Plt Count MPV Immature Gran % (Auto) Neut % (Auto) Lymph % (Auto) [place] % (Auto) Eos % (Auto) Baso % (Auto) Lymph # (Auto) [place] # (Auto) Eos # (Auto) Baso # (Auto) Abs Immat Gran (auto) Absolute Neuts (auto) Absolute Nucleated RBC Nucleated RBC % (auto) Sodium 138 Potassium 4.7 Chloride 108 Carbon Dioxide 21 L Anion Gap 14 BUN 52 H Creatinine 7.83 H* Estim Creat Clear Calc 12.2 Estimated GFR 8 POC Glucose 116 H 124 H Random Glucose 120 H Calcium 8.3 L Phosphorus 3.7 Magnesium 1.8 11/20/23 11/20/23 11/20/23 14:33 15:26 16:30 WBC RBC Hgb Hct MCV MCH MCHC RDW Plt Count MPV Immature Gran % (Auto) Neut % (Auto) Lymph % (Auto) [place] % (Auto) Eos % (Auto) Baso % (Auto) Lymph # (Auto) [place] # (Auto) Eos # (Auto) Baso # (Auto) Abs Immat Gran (auto) Absolute Neuts (auto) Absolute Nucleated RBC Nucleated RBC % (auto) Sodium Potassium Chloride Carbon Dioxide Anion Gap BUN Creatinine Estim Creat Clear Calc Estimated GFR POC Glucose 135 H 115 108 Random Glucose Calcium Phosphorus Magnesium 11/20/23 11/20/23 11/20/23 16:34 17:41 18:35 WBC RBC Hgb Hct MCV MCH MCHC RDW Plt Count MPV Immature Gran % (Auto) Neut % (Auto) Lymph % (Auto) [place] % (Auto) Eos % (Auto) Baso % (Auto) Lymph # (Auto) [place] # (Auto) Eos # (Auto) Baso # (Auto) Abs Immat Gran (auto) Absolute Neuts (auto) Absolute Nucleated RBC Nucleated RBC % (auto) Sodium 138 Potassium 4.7 Chloride 108 Carbon Dioxide 21 L Anion Gap 14 BUN 51 H Creatinine 8.09 H* Estim Creat Clear Calc 11.8 Estimated GFR 7 POC Glucose 99 92 Random Glucose 116 H Calcium 8.4 Phosphorus 3.5 Magnesium 2.0 11/20/23 11/20/23 11/20/23 19:32 20:34 21:07 WBC RBC Hgb Hct MCV MCH MCHC RDW Plt Count MPV Immature Gran % (Auto) Neut % (Auto) Lymph % (Auto) [place] % (Auto) Eos % (Auto) Baso % (Auto) Lymph # (Auto) [place] # (Auto) Eos # (Auto) Baso # (Auto) Abs Immat Gran (auto) Absolute Neuts (auto) Absolute Nucleated RBC Nucleated RBC % (auto) Sodium 137 Potassium 4.8 Chloride 107 Carbon Dioxide 19 L Anion Gap 16 BUN 48 H Creatinine 8.31 H* Estim Creat Clear Calc 11.5 Estimated GFR 7 POC Glucose 77 153 H Random Glucose 124 H Calcium 8.3 L Phosphorus 3.8 Magnesium 2.0 11/21/23 11/21/23 11/21/23 04:55 05:02 07:21 WBC 10.0 RBC 3.75 L Hgb 11.4 L Hct 33.8 L MCV 90.1 MCH 30.4 MCHC 33.7 RDW 12.9 Plt Count 203 MPV 10.3 Immature Gran % (Auto) 0.4 Neut % (Auto) 78.4 H Lymph % (Auto) 12.7 L [place] % (Auto) 7.1 Eos % (Auto) 1.1 Baso % (Auto) 0.3 Lymph # (Auto) 1.3 [place] # (Auto) 0.7 Eos # (Auto) 0.1 Baso # (Auto) 0.0 Abs Immat Gran (auto) 0.04 H Absolute Neuts (auto) 7.8 Absolute Nucleated RBC 0.000 Nucleated RBC % (auto) 0.0 Sodium 134 L Potassium 6.2 H* D Chloride 104 Carbon Dioxide 18 L Anion Gap 18 BUN 53 H Creatinine 9.32 H* Estim Creat Clear Calc 10.2 Estimated GFR 6 POC Glucose 218 H 246 H Random Glucose 221 H Calcium 8.4 Phosphorus 4.2 Magnesium 2.0 Progress Note: A&P Assessment and plan (1) Hyperkalemia: Status: Acute (2) End stage renal disease: Status: Acute (3) DKA (diabetic ketoacidosis): Status: Acute Plan Patient is a 38 Y M with hypertension, type I diabetes mellitus, c/b end-stage renal disease, blindness, as well as multiple admissions for intractable nausea/vomiting setting of chronic marijuana use, presenting initially to emergency department with nausea/vomiting, found to have elevated glucose, anion-gap, and beta-hydroxybutyrate, admitted ICU for DKA management N: no acute issues CV: hypertension; home medications; labetalol PRN R: no acute issues GI: nausea/vomiting/abdominal pain, likely multi-factorial, d/t DKA, colitis, chronic marijuana use; to follow-up stool panel; zofran PRN : ESRD; hyperkalemia; to attempt medical management, though may need urgent hemodialysis H: no acute issues ID: CT A/P suggestive of colitis; empiric zosyn E: type I diabetes mellitus, poorly controlled; DKA, resolved P: no acute issues Quality Stroke Does the patient have a stroke diagnosis?: No VTE Prior VTE?: No VTE Risk Level:: Medical - moderate - high VTE Device Contraindication: N/A - Device Ordered VTE Drug Contraindication: N/A - Med Ordered
[2023-11-21 08:19] LABS: Potassium 6.2 mmol/L (3.3-5.1)
[2023-11-21] MEDS: Sodium Bicarbonate 8.4% 50 MEQ/50 ML SYRINGE IVPUSH ×2 (08:23→13:18)
[2023-11-21] MEDS: Dextrose 10 % 250 ML 750 ML IV (08:36)
[2023-11-21] MEDS: Insulin Regular, Human 100 UNIT/ML 10 ML VIAL 10 UNIT IVPUSH (08:40)
[2023-11-21] MEDS: Furosemide 200 MG in 0.9 % Sodium Chloride 80 ML IVCONT (08:46)
[2023-11-21] MEDS: hydrALAZINE HCl 50 MG TABLET 100 MG PO ×3 (08:46→20:34)
[2023-11-21] MEDS: Metoprolol Succinate ER 100 MG TAB.ER.24H PO (08:47)
[2023-11-21] MEDS: NIFEdipine ER 30 MG TAB.ER.24 PO (08:47)
[2023-11-21 09:47] LABS: Anion Gap 18 (12-20); Blood Urea Nitrogen 54 mg/dL (9-16); Calcium 8.4 mg/dL (8.4-10.2); Carbon Dioxide 20 mmol/L (22-29); Chloride 102 mmol/L (96-108); Creatinine Clr Calc Pharmacy 9.8; Estimated Glomerular Filt Rate 6; Glucose Random 313 mg/dL (60-115); Phosphorus 3.9 mg/dL (2.7-4.5); Potassium 5.4 mmol/L (3.3-5.1); Sodium 135 mmol/L (135-145)
[2023-11-21] MEDS: Midazolam HCl/PF 2 MG/2 ML VIAL 4 MG IVPUSH (10:30)
--- NOTE | 2023-11-21 10:49 | W.PM.CCHP ---
Procedures Date of Service Date of Service: 11/21/23 Central Line Placement Right IJ: Consent for Procedure: Elective - informed consent obtained Sterile Technique Used: Yes Patient placed on monitor/pulse ox: Yes prep: mask, gown and gloves Central line prep: Chlorhexidine scrub and sterile drapes applied Ultrasound used for placement: Yes Central line lumen inserted: triple Post procedure: sutured in place, good blood return, all ports aspirated, flushed, capped and sterile dressing applied Post procedure x-ray: other (pending chest x-ray) Patient tolerated procedure: well Complications: hematoma at puncture site
[2023-11-21] MEDS: Labetalol HCL 100 MG/20 ML VIAL 10 MG IVPUSH (11:09)
[2023-11-21 11:34] LABS: Glucose, Whole Blood 224 mg/dL (60-115)
[2023-11-21] MEDS: Insulin Lispro 100 UNIT/ML 3 ML VIAL 10 UNIT SUBCUT (11:50)
[2023-11-21 12:43] LABS: Anion Gap 17 (12-20); Blood Urea Nitrogen 58 mg/dL (9-16); Calcium 8.2 mg/dL (8.4-10.2); Carbon Dioxide 20 mmol/L (22-29); Chloride 102 mmol/L (96-108); Creatinine Clr Calc Pharmacy 9.5; Estimated Glomerular Filt Rate 6; Glucose Random 272 mg/dL (60-115); Phosphorus 3.4 mg/dL (2.7-4.5); Potassium 6.6 mmol/L (3.3-5.1); Sodium 132 mmol/L (135-145)
[2023-11-21] MEDS: niCARdipine HCL 25 MG in 0.9 % Sodium Chloride 250 ML 52 MG IVCONT (12:59)
[2023-11-21] MEDS: Calcium Chloride 1 GM/10 ML SYRINGE IVPUSH (13:18)
[2023-11-21 16:21] LABS: Anion Gap 15 (12-20); Blood Urea Nitrogen 59 mg/dL (9-16); Calcium 9.3 mg/dL (8.4-10.2); Carbon Dioxide 23 mmol/L (22-29); Chloride 105 mmol/L (96-108); Creatinine Clr Calc Pharmacy 9.1; Estimated Glomerular Filt Rate 6; Glucose Random 150 mg/dL (60-115); Magnesium 2.1 mg/dL (1.6-2.6); Phosphorus 4.5 mg/dL (2.7-4.5); Potassium 4.7 mmol/L (3.3-5.1); Sodium 138 mmol/L (135-145)
--- NOTE | 2023-11-21 16:23 | MHC.CM.PN ---
Pt continues care in ICU: central line placed today: pt has [employer] and family assistance at home: D/C plan remains to return to baseline level of home care. CM to follow
[2023-11-21 16:29] LABS: Glucose, Whole Blood 150 mg/dL (60-115)
[2023-11-21 17:45] LABS: Glucose, Whole Blood 115 mg/dL (60-115)
[2023-11-21] MEDS: Furosemide 200 MG in 0.9 % Sodium Chloride 80 ML 10 MG IVCONT (19:55)
[2023-11-21 20:11] LABS: Anion Gap 15 (12-20); Blood Urea Nitrogen 58 mg/dL (9-16); Carbon Dioxide 22 mmol/L (22-29); Chloride 105 mmol/L (96-108); Estimated Glomerular Filt Rate 5; Glucose Random 117 mg/dL (60-115); Magnesium 2.1 mg/dL (1.6-2.6); Phosphorus 5.3 mg/dL (2.7-4.5); Potassium 5.2 mmol/L (3.3-5.1); Sodium 137 mmol/L (135-145)
[2023-11-21] MEDS: Insulin Glargine,Hum.rec.anlog 100 UNIT/ML 10 ML VIAL 30 UNIT SUBCUT (20:35)
[2023-11-21 20:48] LABS: Glucose, Whole Blood 115 mg/dL (60-115)
[2023-11-22] VITALS (31 sets, daily range): BP systolic 141–198; BP diastolic 72–98; PULSE 94–117; RESP 11–22; TEMP 36.6–37.2; O2SAT 90–97; BMI 24.1
[2023-11-22 00:12] LABS: Glucose, Whole Blood 66 mg/dL (60-115)
[2023-11-22] MEDS: Piperacillin Sodium/Tazobactam 2.25 GM in 0.9 % Sodium Chloride 50 ML IV ×3 (00:25→16:19)
[2023-11-22 01:02] LABS: Anion Gap 17 (12-20); Blood Urea Nitrogen 59 mg/dL (9-16); Carbon Dioxide 22 mmol/L (22-29); Chloride 104 mmol/L (96-108); Creatinine Clr Calc Pharmacy 8.8; Estimated Glomerular Filt Rate 5; Glucose Random 68 mg/dL (60-115); Magnesium 2.1 mg/dL (1.6-2.6); Phosphorus 5.3 mg/dL (2.7-4.5); Potassium 4.7 mmol/L (3.3-5.1); Sodium 138 mmol/L (135-145)
[2023-11-22] MEDS: Furosemide 200 MG in 0.9 % Sodium Chloride 80 ML 10 MG IVCONT ×3 (01:17→21:46)
[2023-11-22] MEDS: Labetalol HCL 100 MG/20 ML VIAL 10 MG IVPUSH ×2 (02:05→21:00)
[2023-11-22 02:15] LABS: Glucose, Whole Blood 81 mg/dL (60-115)
[2023-11-22 04:14] LABS: MANUAL DIFF FLAG NO
[2023-11-22 04:15] LABS: Basophils Percent Auto 0.3 % (0-2); Eosinophils Absolute Auto 0.2 X10*3/uL (0.0-0.4); Eosinophils Percent Auto 1.4 % (0-4); Hematocrit 29.6 % (42.0-52.0); Imm Gran Abs Auto 0.03 X10*3/uL (0.00-0.03); Imm Gran Pct Auto 0.3 % (0.0-0.4); Lymphocytes Absolute Auto 1.2 X10*3/uL (1.2-4.9); Mean Corpuscular HGB Conc 33.8 g/dl (31.0-36.0); Mean Corpuscular Hemoglobin 30.3 pg (27.0-33.0); Mean Corpuscular Volume 89.7 fL (80.0-98.0); Mean Platelet Volume 9.2 fL (9.4-12.4); Monocytes Absolute Auto 1.2 X10*3/uL (0.1-1.2); Monocytes Percent Auto 10.7 % (2-11); Neutrophils Absolute Auto 8.3 x10*3/uL (2.0-8.3); Neutrophils Percent Auto 76.3 % (45-73); Platelet Count 185 X10*3/uL (160-400); Red Cell Distribution Width 12.8 % (11.0-16.0); White Blood Count 10.9 X10*3/uL (4.8-10.8)
[2023-11-22 04:37] LABS: Anion Gap 18 (12-20); Blood Urea Nitrogen 57 mg/dL (9-16); Carbon Dioxide 21 mmol/L (22-29); Chloride 105 mmol/L (96-108); Creatinine Clr Calc Pharmacy 8.8; Estimated Glomerular Filt Rate 5; Glucose Random 108 mg/dL (60-115); Phosphorus 5.7 mg/dL (2.7-4.5); Potassium 4.9 mmol/L (3.3-5.1); Sodium 139 mmol/L (135-145)
[2023-11-22] MEDS: Pantoprazole Sodium 40 MG/10 ML VIAL IVPUSH ×2 (05:55→16:19)
[2023-11-22] MEDS: HYDROmorphone HCl 0.5 MG/0.5 ML SYRINGE 0.25 MG IVPUSH ×3 (05:55→20:54)
[2023-11-22 07:33] LABS: Glucose, Whole Blood 78 mg/dL (60-115)
--- NOTE | 2023-11-22 08:17 | P.PNCC_ITS ---
Subjective Subjective Date of Service: 11/22/23 Interval History: no significant overnight events; now anuric Critical Care Time (minutes): 30 Physical Exam 2 Vital Signs: Vital Signs: Last Vital Signs Temp 98.4 F 11/22/23 08:00 Pulse 114 H 11/22/23 08:00 Resp 18 11/22/23 08:00 BP 167/85 H 11/22/23 08:00 Pulse Ox 91 L 11/22/23 08:00 O2 Del Method Room Air 11/22/23 08:00 O2 Flow Rate 2 11/22/23 04:51 BMI result Body Mass Index 24.1 Const: General: cooperative, healthy appearing, comfortable, no acute distress, well developed, alert, awake and Physically active O rientation/consciousness: patient oriented x3 HEENT: Head: Yes normal to inspection, Yes normocephalic and Yes atraumatic Eyes: General: appearance normal, both eyes and all related structures Neck: Neck: Yes normal visual inspection, Yes full ROM, Yes no meningeal signs, Yes trachea midline and Yes supple Chest: Chest palpation & inspection: normal inspection of the chest Resp: Other: no appreciable rales, rhonchi, wheezing Cardio: Rate: regular rate Rhythm: regular rhythm GI: Inspection: Yes normal to inspection, No Abdominal wall edema and No distended Palpation (GI): Soft to palpation, not firm, nontender, no guarding and not rigid Skin: General skin exam: no rashes or lesions noted Neuro: General: patient oriented x3, tone normal, moves all extremities and no meningeal signs Extrem: Other: appreciable 1+ pitting edema to bilateral shins General: Yes normal to inspection, Yes full ROM and Yes capillary refill normal Psych: Appearance: grossly normal Objective Data Labs 11/22/23 04:04 11/22/23 04:04 Labs: Laboratory Results - last 24 hr 11/21/23 11/21/23 11/21/23 04:55 08:57 11:31 WBC RBC Hgb Hct MCV MCH MCHC RDW Plt Count MPV Immature Gran % (Auto) Neut % (Auto) Lymph % (Auto) [place] % (Auto) Eos % (Auto) Baso % (Auto) Lymph # (Auto) [place] # (Auto) Eos # (Auto) Baso # (Auto) Abs Immat Gran (auto) Absolute Neuts (auto) Absolute Nucleated RBC Nucleated RBC % (auto) Hold Purple Top Sodium 135 Potassium 6.2 H* D 5.4 H Chloride 102 Carbon Dioxide 20 L Anion Gap 18 BUN 54 H Creatinine 9.71 H* Estim Creat Clear Calc 9.8 Estimated GFR 6 POC Glucose 224 H Random Glucose 313 H Calcium 8.4 Phosphorus 3.9 Magnesium 2.0 11/21/23 11/21/23 11/21/23 12:05 15:53 16:25 WBC RBC Hgb Hct MCV MCH MCHC RDW Plt Count MPV Immature Gran % (Auto) Neut % (Auto) Lymph % (Auto) [place] % (Auto) Eos % (Auto) Baso % (Auto) Lymph # (Auto) [place] # (Auto) Eos # (Auto) Baso # (Auto) Abs Immat Gran (auto) Absolute Neuts (auto) Absolute Nucleated RBC Nucleated RBC % (auto) Hold Purple Top Sodium 132 L 138 Potassium 6.6 H* D 4.7 D Chloride 102 105 Carbon Dioxide 20 L 23 Anion Gap 17 15 BUN 58 H 59 H Creatinine 10.07 H* 10.49 H* Estim Creat Clear Calc 9.5 9.1 Estimated GFR 6 6 POC Glucose 150 H Random Glucose 272 H 150 H Calcium 8.2 L 9.3 D Phosphorus 3.4 4.5 Magnesium 2.0 2.1 11/21/23 11/21/23 11/21/23 17:42 19:47 20:40 WBC RBC Hgb Hct MCV MCH MCHC RDW Plt Count MPV Immature Gran % (Auto) Neut % (Auto) Lymph % (Auto) [place] % (Auto) Eos % (Auto) Baso % (Auto) Lymph # (Auto) [place] # (Auto) Eos # (Auto) Baso # (Auto) Abs Immat Gran (auto) Absolute Neuts (auto) Absolute Nucleated RBC Nucleated RBC % (auto) Hold Purple Top Sodium 137 Potassium 5.2 H Chloride 105 Carbon Dioxide 22 Anion Gap 15 BUN 58 H Creatinine 10.63 H* Estim Creat Clear Calc 9.0 Estimated GFR 5 POC Glucose 115 115 Random Glucose 117 H Calcium 9.0 Phosphorus 5.3 H Magnesium 2.1 11/22/23 11/22/23 11/22/23 00:08 00:21 02:10 WBC RBC Hgb Hct MCV MCH MCHC RDW Plt Count MPV Immature Gran % (Auto) Neut % (Auto) Lymph % (Auto) [place] % (Auto) Eos % (Auto) Baso % (Auto) Lymph # (Auto) [place] # (Auto) Eos # (Auto) Baso # (Auto) Abs Immat Gran (auto) Absolute Neuts (auto) Absolute Nucleated RBC Nucleated RBC % (auto) Hold Purple Top Sodium 138 Potassium 4.7 Chloride 104 Carbon Dioxide 22 Anion Gap 17 BUN 59 H Creatinine 10.83 H* Estim Creat Clear Calc 8.8 Estimated GFR 5 POC Glucose 66 81 Random Glucose 68 Calcium 9.0 Phosphorus 5.3 H Magnesium 2.1 11/22/23 11/22/23 11/22/23 04:04 07:30 07:51 WBC 10.9 H RBC 3.30 L Hgb 10.0 L Hct 29.6 L MCV 89.7 MCH 30.3 MCHC 33.8 RDW 12.8 Plt Count 185 MPV 9.2 L Immature Gran % (Auto) 0.3 Neut % (Auto) 76.3 H Lymph % (Auto) 11.0 L [place] % (Auto) 10.7 Eos % (Auto) 1.4 Baso % (Auto) 0.3 Lymph # (Auto) 1.2 [place] # (Auto) 1.2 Eos # (Auto) 0.2 Baso # (Auto) 0.0 Abs Immat Gran (auto) 0.03 Absolute Neuts (auto) 8.3 Absolute Nucleated RBC 0.000 Nucleated RBC % (auto) 0.0 Hold Purple Top SEE NOTE Sodium 139 Potassium 4.9 Chloride 105 Carbon Dioxide 21 L Anion Gap 18 BUN 57 H Creatinine 10.81 H* Estim Creat Clear Calc 8.8 Estimated GFR 5 POC Glucose 78 Random Glucose 108 Calcium 9.0 Phosphorus 5.7 H Magnesium 2.0 Progress Note: A&P Assessment and plan (1) End stage renal disease: Status: Acute (2) DKA (diabetic ketoacidosis): Status: Acute Plan Patient is a 38 Y M with hypertension, type I diabetes mellitus, c/b end-stage renal disease, blindness, as well as multiple admissions for intractable nausea/vomiting setting of chronic marijuana use, presenting initially to emergency department with nausea/vomiting, found to have elevated glucose, anion-gap, and beta-hydroxybutyrate, admitted ICU for DKA management N: no acute issues CV: hypertension; home medications; labetalol PRN R: no acute issues GI: nausea/vomiting/abdominal pain, likely multi-factorial, d/t DKA, colitis, chronic marijuana use; to follow-up stool panel; zofran PRN : ESRD; hyperkalemia, improved; appreciate nephrology recommendations H: no acute issues ID: CT A/P suggestive of colitis; empiric zosyn E: type I diabetes mellitus, poorly controlled; DKA, resolved P: no acute issues Quality Stroke Does the patient have a stroke diagnosis?: No VTE Prior VTE?: No VTE Risk Level:: Medical - moderate - high VTE Device Contraindication: N/A - Device Ordered VTE Drug Contraindication: N/A - Med Ordered
[2023-11-22 08:19] LABS: Anion Gap 15 (12-20); Blood Urea Nitrogen 61 mg/dL (9-16); Carbon Dioxide 23 mmol/L (22-29); Chloride 105 mmol/L (96-108); Creatinine Clr Calc Pharmacy 8.4; Estimated Glomerular Filt Rate 5; Glucose Random 80 mg/dL (60-115); Phosphorus 5.4 mg/dL (2.7-4.5); Potassium 4.9 mmol/L (3.3-5.1); Sodium 138 mmol/L (135-145)
[2023-11-22] MEDS: Metoprolol Succinate ER 100 MG TAB.ER.24H PO (08:44)
[2023-11-22] MEDS: hydrALAZINE HCl 50 MG TABLET 100 MG PO ×3 (08:45→20:57)
[2023-11-22] MEDS: NIFEdipine ER 30 MG TAB.ER.24 PO (08:46)
[2023-11-22] MEDS: Calcium Acetate 667 MG CAPSULE PO (10:25)
[2023-11-22 11:24] LABS: Glucose, Whole Blood 98 mg/dL (60-115)
[2023-11-22 12:34] LABS: Anion Gap 17 (12-20); Blood Urea Nitrogen 59 mg/dL (9-16); Calcium 9.1 mg/dL (8.4-10.2); Carbon Dioxide 23 mmol/L (22-29); Chloride 103 mmol/L (96-108); Creatinine Clr Calc Pharmacy 8.5; Estimated Glomerular Filt Rate 5; Glucose Random 126 mg/dL (60-115); Magnesium 1.9 mg/dL (1.6-2.6); Phosphorus 5.6 mg/dL (2.7-4.5); Potassium 5.1 mmol/L (3.3-5.1); Sodium 138 mmol/L (135-145)
[2023-11-22 16:12] LABS: Glucose, Whole Blood 129 mg/dL (60-115)
[2023-11-22 18:35] LABS: Anion Gap 18 (12-20); Blood Urea Nitrogen 60 mg/dL (9-16); Carbon Dioxide 23 mmol/L (22-29); Chloride 102 mmol/L (96-108); Creatinine Clr Calc Pharmacy 8.4; Estimated Glomerular Filt Rate 5; Glucose Random 136 mg/dL (60-115); Magnesium 1.9 mg/dL (1.6-2.6); Potassium 4.7 mmol/L (3.3-5.1); Sodium 138 mmol/L (135-145)
[2023-11-22 20:33] LABS: Glucose, Whole Blood 114 mg/dL (60-115)
[2023-11-22] MEDS: Insulin Glargine,Hum.rec.anlog 100 UNIT/ML 10 ML VIAL 30 UNIT SUBCUT (20:58)
[2023-11-23] VITALS (23 sets, daily range): BP systolic 140–195; BP diastolic 79–108; PULSE 85–116; RESP 9–20; TEMP 36.3–37.3; O2SAT 92–99; BMI 23.0
[2023-11-23] MEDS: Piperacillin Sodium/Tazobactam 2.25 GM in 0.9 % Sodium Chloride 50 ML IV ×3 (00:35→16:21)
[2023-11-23 00:58] LABS: Anion Gap 18 (12-20); Blood Urea Nitrogen 60 mg/dL (9-16); Calcium 9.6 mg/dL (8.4-10.2); Carbon Dioxide 24 mmol/L (22-29); Chloride 103 mmol/L (96-108); Creatinine Clr Calc Pharmacy 7.9; Estimated Glomerular Filt Rate 5; Glucose Random 61 mg/dL (60-115); Phosphorus 6.3 mg/dL (2.7-4.5); Potassium 4.3 mmol/L (3.3-5.1); Sodium 141 mmol/L (135-145)
[2023-11-23 01:45] LABS: Glucose, Whole Blood 102 mg/dL (60-115)
[2023-11-23] MEDS: Labetalol HCL 100 MG/20 ML VIAL 10 MG IVPUSH (02:22)
--- NOTE | 2023-11-23 03:26 | PC.NURSE ---
11/23/2023 0032 serum glucose was 61, upon reviewing these values patient was given two apple juices. Repeat FSBS at 0140 was 102. Iveth Dennis NP was notified off mentioned values and intervention.
[2023-11-23] MEDS: Pantoprazole Sodium 40 MG/10 ML VIAL IVPUSH (05:37)
[2023-11-23 05:52] LABS: Basophils Percent Auto 0.3 % (0-2); Eosinophils Absolute Auto 0.2 X10*3/uL (0.0-0.4); Eosinophils Percent Auto 1.8 % (0-4); Hematocrit 31.9 % (42.0-52.0); Hemoglobin 10.9 g/dl (14.0-18.0); Imm Gran Abs Auto 0.03 X10*3/uL (0.00-0.03); Imm Gran Pct Auto 0.3 % (0.0-0.4); Lymphocytes Absolute Auto 1.3 X10*3/uL (1.2-4.9); Lymphocytes Percent Auto 14.2 % (20-40); MANUAL DIFF FLAG NO; Mean Corpuscular HGB Conc 34.2 g/dl (31.0-36.0); Mean Corpuscular Volume 87.9 fL (80.0-98.0); Monocytes Percent Auto 11.1 % (2-11); Neutrophils Absolute Auto 6.5 x10*3/uL (2.0-8.3); Neutrophils Percent Auto 72.3 % (45-73); Platelet Count 178 X10*3/uL (160-400); Red Blood Count 3.63 X10*6/uL (4.60-5.80); Red Cell Distribution Width 12.7 % (11.0-16.0)
[2023-11-23 06:14] LABS: Albumin Level 3.6 g/dL (3.5-5.0); Anion Gap 19 (12-20); Blood Urea Nitrogen 59 mg/dL (9-16); Calcium 9.5 mg/dL (8.4-10.2); Carbon Dioxide 25 mmol/L (22-29); Chloride 102 mmol/L (96-108); Creatinine Clr Calc Pharmacy 7.9; Estimated Glomerular Filt Rate 5; Glucose Random 55 mg/dL (60-115); Phosphorus 6.4 mg/dL (2.7-4.5); Potassium 4.2 mmol/L (3.3-5.1); Sodium 142 mmol/L (135-145)
[2023-11-23] MEDS: Dextrose 10 % 250 ML 750 ML IV (06:18)
[2023-11-23 06:45] LABS: Glucose, Whole Blood 166 mg/dL (60-115)
[2023-11-23] MEDS: Furosemide 200 MG in 0.9 % Sodium Chloride 80 ML 10 MG IVCONT (07:37)
[2023-11-23 07:45] LABS: Glucose, Whole Blood 121 mg/dL (60-115)
[2023-11-23] MEDS: Metoprolol Succinate ER 100 MG TAB.ER.24H PO (08:20)
[2023-11-23] MEDS: hydrALAZINE HCl 50 MG TABLET 100 MG PO ×3 (08:21→20:47)
[2023-11-23] MEDS: Lidocaine 4 % Patch ADH..PATCH 1 PATCH TRANSDERMA (08:21)
[2023-11-23] MEDS: NIFEdipine ER 30 MG TAB.ER.24 PO (08:21)
--- NOTE | 2023-11-23 09:29 | P.PNCC_ITS ---
Subjective Subjective Date of Service: 11/23/23 Interval History: 38-year-old gentleman with underlying hypertension, type 1 diabetes mellitus with end-stage renal disease and legal blindness admitted on 11/19/2023 with diabetic ketoacidosis, acute on chronic renal failure with anuria, and hypertensive emergency. Patient treated with insulin drip and now titrated to subcu insulin protocol. He was evaluated by nephrology service. Temporary hemodialysis catheter placed, fortunately patient has responded to diuretic challenge with making of approximately 7 L of urine in the last 24 hours. He does have underlying AV fistula that has not matured yet. Patient also was treated empirically with Zosyn for suspicion of colitis. No events overnight. Critical Care Time (minutes): 0 Physical Exam 2 Vital Signs: Vital Signs: Last Vital Signs Temp 98.2 F 11/23/23 09:00 Pulse 110 H 11/23/23 09:00 Resp 13 11/23/23 09:00 BP 164/101 H 11/23/23 09:00 Pulse Ox 92 11/23/23 09:00 O2 Del Method Nasal Cannula 11/23/23 09:00 O2 Flow Rate 2 11/23/23 09:00 BMI result Body Mass Index 23.0 Const: General: no acute distress, alert and awake Eyes: Sclerae: sclerae normal Neck: Neck: Yes no lymphadenopathy, Yes trachea midline and Yes supple Resp: Effort & Inspection: normal respiratory effort and no respiratory distress Auscultation: clear to auscultation bilaterally Cardio: Rate: tachycardic Rhythm: regular rhythm Heart sounds: no gallops, no murmurs and no rubs GI: Palpation (GI): Soft to palpation and Other GI palpation findings present ( Nontender) Auscultation: normal bowel sounds Extrem: General: Yes no pedal edema, No clubbing and No cyanosis Objective Data Labs 11/23/23 05:42 11/23/23 05:42 Labs: Laboratory Results - last 24 hr 11/22/23 11/22/23 11/22/23 11:20 12:10 16:09 WBC RBC Hgb Hct MCV MCH MCHC RDW Plt Count MPV Immature Gran % (Auto) Neut % (Auto) Lymph % (Auto) [place] % (Auto) Eos % (Auto) Baso % (Auto) Lymph # (Auto) [place] # (Auto) Eos # (Auto) Baso # (Auto) Abs Immat Gran (auto) Absolute Neuts (auto) Absolute Nucleated RBC Nucleated RBC % (auto) Sodium 138 Potassium 5.1 Chloride 103 Carbon Dioxide 23 Anion Gap 17 BUN 59 H Creatinine 11.22 H* Estim Creat Clear Calc 8.5 Estimated GFR 5 POC Glucose 98 129 H Random Glucose 126 H Calcium 9.1 Phosphorus 5.6 H Magnesium 1.9 Albumin 11/22/23 11/22/23 11/23/23 17:59 20:30 00:32 WBC RBC Hgb Hct MCV MCH MCHC RDW Plt Count MPV Immature Gran % (Auto) Neut % (Auto) Lymph % (Auto) [place] % (Auto) Eos % (Auto) Baso % (Auto) Lymph # (Auto) [place] # (Auto) Eos # (Auto) Baso # (Auto) Abs Immat Gran (auto) Absolute Neuts (auto) Absolute Nucleated RBC Nucleated RBC % (auto) Sodium 138 141 Potassium 4.7 4.3 Chloride 102 103 Carbon Dioxide 23 24 Anion Gap 18 18 BUN 60 H 60 H Creatinine 11.32 H* 12.06 H* Estim Creat Clear Calc 8.4 7.9 Estimated GFR 5 5 POC Glucose 114 Random Glucose 136 H 61 Calcium 9.0 9.6 D Phosphorus 6.0 H 6.3 H Magnesium 1.9 2.0 Albumin 11/23/23 11/23/23 11/23/23 01:41 05:42 06:41 WBC 9.0 RBC 3.63 L Hgb 10.9 L Hct 31.9 L MCV 87.9 MCH 30.0 MCHC 34.2 RDW 12.7 Plt Count 178 MPV 9.0 L Immature Gran % (Auto) 0.3 Neut % (Auto) 72.3 Lymph % (Auto) 14.2 L [place] % (Auto) 11.1 H Eos % (Auto) 1.8 Baso % (Auto) 0.3 Lymph # (Auto) 1.3 [place] # (Auto) 1.0 Eos # (Auto) 0.2 Baso # (Auto) 0.0 Abs Immat Gran (auto) 0.03 Absolute Neuts (auto) 6.5 Absolute Nucleated RBC 0.000 Nucleated RBC % (auto) 0.0 Sodium 142 Potassium 4.2 Chloride 102 Carbon Dioxide 25 Anion Gap 19 BUN 59 H Creatinine 12.06 H* Estim Creat Clear Calc 7.9 Estimated GFR 5 POC Glucose 102 166 H Random Glucose 55 L* Calcium 9.5 Phosphorus 6.4 H Magnesium 2.0 Albumin 3.6 11/23/23 07:41 WBC RBC Hgb Hct MCV MCH MCHC RDW Plt Count MPV Immature Gran % (Auto) Neut % (Auto) Lymph % (Auto) [place] % (Auto) Eos % (Auto) Baso % (Auto) Lymph # (Auto) [place] # (Auto) Eos # (Auto) Baso # (Auto) Abs Immat Gran (auto) Absolute Neuts (auto) Absolute Nucleated RBC Nucleated RBC % (auto) Sodium Potassium Chloride Carbon Dioxide Anion Gap BUN Creatinine Estim Creat Clear Calc Estimated GFR POC Glucose 121 H Random Glucose Calcium Phosphorus Magnesium Albumin Progress Note: A&P Assessment and plan (1) End stage renal disease: Status: Acute (2) DKA (diabetic ketoacidosis): Status: Acute (3) Diabetes type 1, uncontrolled: Status: Inactive Plan Assessment: 38-year-old gentleman with underlying type 1 diabetes mellitus complicated by blindness and end-stage renal disease admitted with diabetic ketoacidosis acute on chronic renal failure with anuria Plan: Neuro: No acute issues. Cardiac: Hypertensive emergency resolved, still with significant hypertension, continues on hydralazine, nifedipine, metoprolol. Clonidine and Bumex added. Pulmonary: No acute issues. Renal: Acute on chronic renal failure. Nephrology service care appreciated. Responded to diuretic challenge. AV fistula not mature, temporary hemodialysis catheter placed. Non oliguric. Continue to monitor renal indices and urine output. Endo: Diabetic ketoacidosis resolved, continue subcutaneous insulin. GI: No acute issues. ID: Empirically covered with Zosyn for 5 days for suspicion of colitis. Heme/Onc: No acute issues. Psych: No acute issues. Miscellaneous: No acute issues. Prophylaxis: Pneumatic compression Diet: Diabetic Quality Stroke Does the patient have a stroke diagnosis?: No VTE Prior VTE?: No VTE Risk Level:: Medical - moderate - high VTE Device Contraindication: N/A - Device Ordered VTE Drug Contraindication: N/A - Med Ordered
[2023-11-23] MEDS: cloNIDine HCL 0.1 MG TABLET PO ×2 (09:38→20:46)
[2023-11-23] MEDS: Calcium Acetate 667 MG CAPSULE 1334 MG PO (09:39)
[2023-11-23] MEDS: Bumetanide 1 MG TABLET PO (09:39)
--- NOTE | 2023-11-23 09:40 | P.CONNP_ITS ---
History of Present Illness Reason for Consult Consult date: 11/23/23 Chief Complaint Chief complaint: DKA History of Present Illness Narrative: Patient is a 38 y/o male with hypertension, type I diabetes mellitus, CKD stage 5, blindness, as well as multiple admissions for intractable nausea/vomiting setting of chronic marijuana use, presenting on 11/18 with nausea/vomiting, found to have elevated glucose, anion-gap, and beta-hydroxybutyrate, admitted ICU for DKA management. GFR decreased to 5 (has been around 10-12 prior to admission) Creatinine increased to 12.06, prior to admission around 5-6 pt's acidosis is improving electrolytes normal (with exception of phosphorous) pt euvolemic no uremic symptoms currently pt is making urine- 9L since admission per chart pt does have AV fistula though it is not fully matured; also has HD catheter in place. Review of Systems Constitutional: Reports fatigue and Denies fever(s) Cardiovascular: Denies no additional cardiovascular complaints, Denies chest pain and Denies dyspnea Respiratory: Reports no additional respiratory complaints and Denies dyspnea Genitourinary: Denies hematuria and Denies dysuria Musculoskeletal: Denies muscle cramps Skin/Breast: Denies rash Denies focal weakness and Denies tremor(s) Endocrine: Reports fatigue PMFSH Past Medical History Medical History Hypertensive urgency CKD (chronic kidney disease) stage 4, GFR 15-29 ml/min Hypertensive nephrosclerosis Diabetic gastroparesis Pancreatitis Vitamin D deficiency Hypocalcemia Background diabetic retinopathy associated with type 2 diabetes mellitus Diabetes type 1, uncontrolled Hemangioma of liver Legally blind Acid reflux Sciatica Gastritis Polyneuropathy Essential hypertension Hyperlipidemia LDL goal <70 Family History Family History Father Diabetes mellitus Mother Diabetes mellitus Maternal Grandfather Diabetes mellitus Maternal Grandmother Diabetes mellitus Surgical History Surgical History Hx of endoscopy Hx of circumcision Hx of appendectomy Hx of eye surgery Social History Social History Household Members: Spouse Household Members Other:: and girlfriend Housing: House Do you presently have visiting nurse or other home services: Yes Alcohol intake: former Comment: refusing fall risk interventions. Patient Tobacco Use Status: Former Tobacco user Smoked in Last 30 Days: No Second Hand Smoke Exposure: No Use of substances other than those prescribed or required for medical reasons: No Substance Use Type: Marijuana Currently Displaying Signs/Symptoms of Drug Intoxication Withdrawal: No Any prior treatment program specific to substance use: No Have you been hit, kicked, punched, or otherwise hurt by someone within the past year? If so, by whom?: No Do you feel safe in your current relationship?: Yes Is there a partner from a previous relationship who is making you feel unsafe now?: No Are you made to feel afraid or neglected: No Denominational Healthcare Practices: [employer] Advance Directives: Yes Advance Directives on File: Yes Advance Directives Date on File: 04/13/20 Do you have a plan to hurt others: No Plan Recently lost weight without trying: No Eating poorly because of decreased appetite: No Nutrition Risks: Diabetes new onset/Uncontrolled Poor oral hygiene: No service: No Current occupational status: disabled Meds Allergies Allergy/AdvReac Type Severity Reaction Status Date / Time losartan Allergy Gastrointestinal Verified 11/19/23 12:07 Upset valsartan AdvReac Unknown GI problems Verified 11/19/23 12:07 Active Medications: Current Medications Bumetanide (Bumetanide 1 Mg Tablet) 1 mg PO DAILY [facility]; Protocol Last Admin: 11/23/23 09:39 Dose: 1 mg Clonidine HCl (Clonidine Hcl 0.1 Mg Tablet) 0.1 mg PO BID [facility]; Protocol Last Admin: 11/23/23 09:38 Dose: 0.1 mg Glucose (Glucose Gel 15 Gm Gel..Gram.) 15 gm PO Q15M PRN; Protocol PRN Reason: per Hypoglycemia Standing Ord. Hydralazine HCl (Hydralazine Hcl 50 Mg Tablet) 100 mg PO TID [facility]; Protocol Last Admin: 11/23/23 08:21 Dose: 100 mg Hydromorphone HCl (Hydromorphone Hcl 0.5 Mg/0.5 Ml Syringe) 0.25 mg IVPUSH Q4H PRN; Protocol PRN Reason: Pain, Moderate(Pain Scale 4-6) Last Admin: 11/22/23 20:54 Dose: 0.25 mg Piperacillin Sod/Tazobactam (Sod 2.25 gm/ Sodium Chloride) 50 mls @ 100 mls/hr IV Q8H [facility] Stop: 11/24/23 00:00 Last Infusion: 11/23/23 08:53 Dose: Infused Dextrose (D10) 250 mls @ 750 mls/hr IV Q15M PRN; Protocol PRN Reason: per Hypoglycemia Standing Ord. Insulin Glargine (Insulin Glargine,Hum.Rec.Anlog 100 Unit/Ml 10 Ml Vial) 15 unit SUBCUT BEDTIME [facility] Insulin Human Lispro (Insulin Lispro 100 Unit/Ml 3 Ml Vial) 0 unit SUBCUT QIDACHS [facility]; Protocol Labetalol HCl (Labetalol Hcl 100 Mg/20 Ml Vial) 10 mg IVPUSH Q2H PRN PRN Reason: Hypertension Last Admin: 11/23/23 02:22 Dose: 10 mg Lidocaine (Lidocaine 4 % Patch Adh..Patch) 1 patch TRANSDERMA DAILY [facility]; Protocol Last Admin: 11/23/23 08:21 Dose: 1 patch Metoprolol Succinate (Metoprolol Succinate Er 100 Mg Tab.Er.24h) 100 mg PO DAILY [facility]; Protocol Last Admin: 11/23/23 08:20 Dose: 100 mg Nifedipine (Nifedipine Er 30 Mg Tab.Er.24) 30 mg PO DAILY [facility]; Protocol Last Admin: 11/23/23 08:21 Dose: 30 mg Ondansetron HCl (Ondansetron Hcl 4 Mg/2 Ml Vial) 4 mg IVPUSH Q4H PRN PRN Reason: Nausea Home Medications ?Medication ?Instructions ?Recorded ?Confirmed ?Last Taken ?Type omeprazole 40 mg capsule,delayed 40 mg PO DAILY@0630 01/04/20 11/19/23 11/18/23 History release metoprolol succinate 50 mg 50 mg PO DAILY 07/29/21 11/19/23 11/18/23 History tablet,extended release 24 hr gabapentin 300 mg capsule 300 mg PO BEDTIME 05/13/22 11/19/23 11/18/23 History hydralazine 100 mg tablet 100 mg PO TID 05/13/22 11/19/23 11/18/23 History metoprolol succinate 100 mg 100 mg PO DAILY 02/10/23 11/19/23 11/18/23 History tablet,extended release 24 hr nifedipine 30 mg tablet,extended 30 mg PO QAM 02/10/23 11/19/23 11/18/23 History release 24 hr nortriptyline 50 mg capsule 50 mg PO BEDTIME 03/09/23 11/19/23 11/18/23 History tamsulosin 0.4 mg capsule 0.4 mg PO QPM 08/04/23 11/19/23 11/18/23 History furosemide 20 mg tablet 20 mg PO DAILY 11/19/23 11/19/23 11/18/23 History glucagon 3 mg/actuation nasal 3 mg intranasal DAILY PRN 11/19/23 11/19/23 Unknown History spray (Baqsimi) Nonresponsive hypoglycemia insulin glargine 100 unit/mL (3 20 unit subcut BEDTIME 11/19/23 11/19/23 11/18/23 History mL) subcutaneous pen (Lantus Solostar U-100 Insulin) Physical Exam Vital Signs: Last Vital Signs Temp 98.2 F 11/23/23 09:00 Pulse 110 H 11/23/23 09:00 Resp 13 11/23/23 09:00 BP 183/108 H 11/23/23 09:39 Pulse Ox 92 11/23/23 09:00 O2 Del Method Nasal Cannula 11/23/23 09:00 O2 Flow Rate 2 11/23/23 09:00 BMI result Body Mass Index 23.0 Const General: comfortable and no acute distress Orientation/consciousness: oriented to person, oriented to place and oriented to time Neck Neck: Yes no JVD Resp Effort & Inspection: able to speak in complete sentences Auscultation: clear to auscultation bilaterally Cardio Jugular venous distension: no JVD Rate: regular rate Rhythm: regular rhythm Heart sounds: S1 normal heart sound present and S2 normal heart sound present GI Palpation (GI): Soft to palpation Rectal Exam - Male: No tenderness General: Yes no CVA tenderness Back/Spine/Pelvis Back: no CVA tenderness Skin Rashes: no rashes Neuro General: oriented to person, oriented to place and oriented to time Extrem General: Yes normal to inspection, No edema and No pedal edema Results Lab Results 11/23/23 05:42 11/23/23 05:42 Lab results: Chemistry 11/20/23 11/20/23 11/20/23 12:34 16:34 20:34 Sodium 138 138 137 Potassium 4.7 4.7 4.8 Carbon Dioxide 21 L 21 L 19 L BUN 52 H 51 H 48 H Creatinine 7.83 H* 8.09 H* 8.31 H* Calcium 8.3 L 8.4 8.3 L Phosphorus 3.7 3.5 3.8 11/21/23 11/21/23 11/21/23 04:55 08:57 12:05 Sodium 134 L 135 132 L Potassium 6.2 H* D 5.4 H 6.6 H* D Carbon Dioxide 18 L 20 L 20 L BUN 53 H 54 H 58 H Creatinine 9.32 H* 9.71 H* 10.07 H* Calcium 8.4 8.4 8.2 L Phosphorus 4.2 3.9 3.4 11/21/23 11/21/23 11/22/23 15:53 19:47 00:21 Sodium 138 137 138 Potassium 4.7 D 5.2 H 4.7 Carbon Dioxide 23 22 22 BUN 59 H 58 H 59 H Creatinine 10.49 H* 10.63 H* 10.83 H* Calcium 9.3 D 9.0 9.0 Phosphorus 4.5 5.3 H 5.3 H 11/22/23 11/22/23 11/22/23 04:04 07:51 12:10 Sodium 139 138 138 Potassium 4.9 4.9 5.1 Carbon Dioxide 21 L 23 23 BUN 57 H 61 H 59 H Creatinine 10.81 H* 11.35 H* 11.22 H* Calcium 9.0 9.0 9.1 Phosphorus 5.7 H 5.4 H 5.6 H 11/22/23 11/23/23 11/23/23 17:59 00:32 05:42 Sodium 138 141 142 Potassium 4.7 4.3 4.2 Carbon Dioxide 23 24 25 BUN 60 H 60 H 59 H Creatinine 11.32 H* 12.06 H* 12.06 H* Calcium 9.0 9.6 D 9.5 Phosphorus 6.0 H 6.3 H 6.4 H Hematology 11/21/23 11/22/23 11/23/23 04:55 04:04 05:42 WBC 10.0 10.9 H 9.0 Hgb 11.4 L 10.0 L 10.9 L Plt Count 203 185 178 Assessment and Plan (1) DKA (diabetic ketoacidosis): Qualifiers: Diabetes mellitus complication detail: without coma Diabetes mellitus type: type 1 Qualified Code(s): E10.10 - Type 1 diabetes mellitus with ketoacidosis without coma Status: Acute (2) 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: Status: Acute Plan Pt with KAYODE with existing CKD5 due to diabetic ketoacidosis Though creatinine and GFR have worsened significantly, due to lack of uremic symptoms or indications for urgent dialysis, will watch and wait to see if renal function improves given DKA resolved and pt is clinically improving. continue to monitor I&O closely continue to monitor electrolytes, renal function and acid-base balance recommend phosphate binder with meals given elevated phosphorous level monitor for symptoms of uremia, including worsening nausea/vomiting despite resolved DKA, asterixis, altered mental status/confusion/lethargy, new onset pruritis, if so would be indication for dialysis recommend hold bumex, assess if patient continues to make urine with diuretic held optimize blood sugar. blood pressure is suboptimal, recommend increasing nifedipine XL to 60mg daily. Discussed wtih Dr Bejarano Procedures Date of Service Date of Service: 11/23/23
[2023-11-23 12:21] LABS: Glucose, Whole Blood 125 mg/dL (60-115)
--- NOTE | 2023-11-23 13:16 | PM.EVENT ---
Event Note Date of Service: 11/23/23 Event Note: 38 year old man admitted to ICU for DKA DKA, DM 1 treated with IV insulin and insulin drip as well as lantus episode of hypoglycemia, lantus dose adjusted Hypertensive urgency Treated with pressors BP still labile but better controlled continue Hydralazine, Nifedipine, bumex and met KAYODE on CKD 5 has temp dialysis cath nephro did not feel like he needed dialysis treated with Lasix gtt for fluid overload Time Spent With Patient Time: Total time managing care of this patient today ____ minutes.
[2023-11-23] MEDS: HYDROmorphone HCl 0.5 MG/0.5 ML SYRINGE 0.25 MG IVPUSH (13:24)
--- NOTE | 2023-11-23 15:56 | MHC.CM.PN ---
PT HAS BEEN DOWNGRADED FROM ICU TO THE MEDICAL FLOOR. CM WILL CONTINUE TO FOLLOW FOR ANY CHANGE TO DC PLAN/NEEDS.
[2023-11-23 16:21] LABS: Glucose, Whole Blood 125 mg/dL (60-115)
[2023-11-23 20:09] LABS: Glucose, Whole Blood 220 mg/dL (60-115)
[2023-11-23] MEDS: Insulin Glargine,Hum.rec.anlog 100 UNIT/ML 10 ML VIAL 15 UNIT SUBCUT (20:53)
[2023-11-23] MEDS: Insulin Lispro 100 UNIT/ML 3 ML VIAL SUBCUT (20:53)
[2023-11-24] VITALS (11 sets, daily range): BP systolic 136–164; BP diastolic 63–90; PULSE 66–87; RESP 16–20; TEMP 36.2–37.2; O2SAT 95–100; BMI 23.0
[2023-11-24] MEDS: HYDROmorphone HCl 0.5 MG/0.5 ML SYRINGE 0.25 MG IVPUSH ×3 (06:06→22:13)
[2023-11-24 06:07] LABS: MANUAL DIFF FLAG NO
[2023-11-24 06:09] LABS: Basophils Percent Auto 0.6 % (0-2); Eosinophils Absolute Auto 0.2 X10*3/uL (0.0-0.4); Eosinophils Percent Auto 2.2 % (0-4); Hemoglobin 12.1 g/dl (14.0-18.0); Imm Gran Abs Auto 0.01 X10*3/uL (0.00-0.03); Imm Gran Pct Auto 0.1 % (0.0-0.4); Lymphocytes Absolute Auto 1.4 X10*3/uL (1.2-4.9); Lymphocytes Percent Auto 19.4 % (20-40); Mean Corpuscular HGB Conc 34.6 g/dl (31.0-36.0); Mean Corpuscular Hemoglobin 30.6 pg (27.0-33.0); Mean Corpuscular Volume 88.6 fL (80.0-98.0); Mean Platelet Volume 9.8 fL (9.4-12.4); Monocytes Absolute Auto 0.9 X10*3/uL (0.1-1.2); Monocytes Percent Auto 12.4 % (2-11); Neutrophils Absolute Auto 4.7 x10*3/uL (2.0-8.3); Neutrophils Percent Auto 65.3 % (45-73); Platelet Count 191 X10*3/uL (160-400); Red Blood Count 3.95 X10*6/uL (4.60-5.80); Red Cell Distribution Width 12.7 % (11.0-16.0); White Blood Count 7.3 X10*3/uL (4.8-10.8)
[2023-11-24 06:39] LABS: Albumin Level 3.4 g/dL (3.5-5.0); Anion Gap 18 (12-20); Blood Urea Nitrogen 60 mg/dL (9-16); Calcium 9.3 mg/dL (8.4-10.2); Carbon Dioxide 24 mmol/L (22-29); Chloride 99 mmol/L (96-108); Creatinine Clr Calc Pharmacy 8.2; Estimated Glomerular Filt Rate 5; Glucose Random 194 mg/dL (60-115); Magnesium 1.9 mg/dL (1.6-2.6); Phosphorus 6.4 mg/dL (2.7-4.5); Potassium 4.3 mmol/L (3.3-5.1); Sodium 137 mmol/L (135-145)
[2023-11-24 07:57] LABS: Glucose, Whole Blood 227 mg/dL (60-115)
[2023-11-24] MEDS: Lidocaine 4 % Patch ADH..PATCH 1 PATCH TRANSDERMA (08:35)
[2023-11-24] MEDS: cloNIDine HCL 0.1 MG TABLET PO ×2 (08:36→21:48)
[2023-11-24] MEDS: NIFEdipine ER 30 MG TAB.ER.24 60 MG PO (08:36)
[2023-11-24] MEDS: Metoprolol Succinate ER 100 MG TAB.ER.24H PO (08:36)
[2023-11-24] MEDS: hydrALAZINE HCl 50 MG TABLET 100 MG PO ×3 (08:37→21:47)
[2023-11-24] MEDS: Insulin Lispro 100 UNIT/ML 3 ML VIAL SUBCUT ×4 (08:37→21:48)
--- NOTE | 2023-11-24 08:56 | HO.PM.IMPN ---
Subjective Subjective Date of Service: 11/24/23 Interval History: Seen and evaluated this morning reporting LLQ pain, no nausea or vomiting No fever, chills or diarrhea BP better controlled tolerating diet Review of Systems Review of Systems: Yes all other systems are reviewed and are negative Physical Exam Vital Signs: Vital Signs: Last Vital Signs Temp 97.1 F 11/24/23 08:00 Pulse 87 11/24/23 08:36 Resp 20 11/24/23 08:00 BP 164/88 H 11/24/23 08:37 Pulse Ox 98 11/24/23 08:00 O2 Del Method Room Air 11/24/23 08:00 O2 Flow Rate 2 11/23/23 12:00 BMI result Body Mass Index 23.0 Appearing in no acute distress, blind lung sounds are clear to auscultation heart regular rate rhythm, clear S1, S2 positive bowel sounds, abdomen is soft, nontender neuro patient is alert x3, no focal deficits Right neck central line Objective Data Active Medications Bumetanide (Bumetanide 1 Mg Tablet) 1 mg PO DAILY [facility]; Protocol Last Admin: 11/23/23 09:39 Dose: 1 mg Documented By: DOMENICO Clonidine HCl (Clonidine Hcl 0.1 Mg Tablet) 0.1 mg PO BID [facility]; Protocol Last Admin: 11/24/23 08:36 Dose: 0.1 mg Documented By: DARREN Glucose (Glucose Gel 15 Gm Gel..Gram.) 15 gm PO Q15M PRN; Protocol PRN Reason: per Hypoglycemia Standing Ord. Hydralazine HCl (Hydralazine Hcl 50 Mg Tablet) 100 mg PO TID [facility]; Protocol Last Admin: 11/24/23 08:37 Dose: 100 mg Documented By: DARREN Hydromorphone HCl (Hydromorphone Hcl 0.5 Mg/0.5 Ml Syringe) 0.25 mg IVPUSH Q4H PRN; Protocol PRN Reason: Pain, Moderate(Pain Scale 4-6) Last Admin: 11/24/23 06:06 Dose: 0.25 mg Documented By: OSWALDO Dextrose (D10) 250 mls @ 750 mls/hr IV Q15M PRN; Protocol PRN Reason: per Hypoglycemia Standing Ord. Insulin Glargine (Insulin Glargine,Hum.Rec.Anlog 100 Unit/Ml 10 Ml Vial) 15 unit SUBCUT BEDTIME [facility] Last Admin: 11/23/23 20:53 Dose: 15 unit Documented By: OSWALDO Insulin Human Lispro (Insulin Lispro 100 Unit/Ml 3 Ml Vial) 0 unit SUBCUT QIDACHS [facility]; Protocol Last Admin: 11/24/23 08:37 Dose: 4 unit Documented By: DARREN Labetalol HCl (Labetalol Hcl 100 Mg/20 Ml Vial) 10 mg IVPUSH Q2H PRN PRN Reason: Hypertension Last Admin: 11/23/23 02:22 Dose: 10 mg Documented By: VIGNESH Lidocaine (Lidocaine 4 % Patch Adh..Patch) 1 patch TRANSDERMA DAILY [facility]; Protocol Last Admin: 11/24/23 08:35 Dose: 1 patch Documented By: DARREN Metoprolol Succinate (Metoprolol Succinate Er 100 Mg Tab.Er.24h) 100 mg PO DAILY [facility]; Protocol Last Admin: 11/24/23 08:36 Dose: 100 mg Documented By: DARREN Nifedipine (Nifedipine Er 30 Mg Tab.Er.24) 60 mg PO DAILY [facility]; Protocol Last Admin: 11/24/23 08:36 Dose: 60 mg Documented By: DARREN Ondansetron HCl (Ondansetron Hcl 4 Mg/2 Ml Vial) 4 mg IVPUSH Q4H PRN PRN Reason: Nausea Labs 11/24/23 05:41 11/24/23 05:41 Labs: Laboratory Results - last 24 hr 11/23/23 11/23/23 11/23/23 12:16 16:16 20:06 MCV MCH MCHC RDW Plt Count MPV Immature Gran % (Auto) Neut % (Auto) Lymph % (Auto) [facility] % (Auto) Eos % (Auto) Baso % (Auto) Lymph # (Auto) [facility] # (Auto) Eos # (Auto) Baso # (Auto) Abs Immat Gran (auto) Absolute Neuts (auto) Absolute Nucleated RBC Nucleated RBC % (auto) Anion Gap Estim Creat Clear Calc Estimated GFR POC Glucose 125 H 125 H 220 H Random Glucose Calcium Phosphorus Magnesium Albumin 11/24/23 11/24/23 05:41 07:49 MCV 88.6 MCH 30.6 MCHC 34.6 RDW 12.7 Plt Count 191 MPV 9.8 Immature Gran % (Auto) 0.1 Neut % (Auto) 65.3 Lymph % (Auto) 19.4 L [facility] % (Auto) 12.4 H Eos % (Auto) 2.2 Baso % (Auto) 0.6 Lymph # (Auto) 1.4 [facility] # (Auto) 0.9 Eos # (Auto) 0.2 Baso # (Auto) 0.0 Abs Immat Gran (auto) 0.01 Absolute Neuts (auto) 4.7 Absolute Nucleated RBC 0.000 Nucleated RBC % (auto) 0.0 Anion Gap 18 Estim Creat Clear Calc 8.2 Estimated GFR 5 POC Glucose 227 H Random Glucose 194 H Calcium 9.3 Phosphorus 6.4 H Magnesium 1.9 Albumin 3.4 L Assessment and Plan (1) Hypertensive urgency: Status: Resolved (2) Abdominal pain: Status: Resolved Plan 38 year old man admitted to ICU for DKA KAYODE on CKD 5 has temp dialysis cath nephro did not feel like he needed dialysis during ICU stay, s/p treated with Lasix gtt for fluid overload Bumex on hold Will discuss with nephro re dialysis while inpatient DKA, DM 1. Resolved treated with IV insulin and insulin drip as well as lantus episode of hypoglycemia, lantus dose adjusted BS now better controlled Hypertensive urgency. Resolved Treated with pressors in ICU BP still labile but better controlled continue Hydralazine, Nifedipine, clonidine, metoprolol Hyperkalemia. Resolved Due to DKA Resolved Mild hyponatremia. Resolved Due to DKA Resolved DVT prophylaxis with SCD boots Attending Dr. Triplett Full code Quality Stroke Does the patient have a stroke diagnosis?: No VTE Prior VTE?: No VTE Risk Level:: Medical - moderate - high VTE Device Contraindication: N/A - Device Ordered VTE Drug Contraindication: N/A - Med Ordered
--- NOTE | 2023-11-24 11:12 | P.PNNP_ITS ---
Subjective Subjective Date of Service: 11/24/23 Interval history: Patient is a 38 y/o male with CKD5, HTN,, type I diabetes mellitus, blindness, as well as multiple admissions for intractable nausea/vomiting setting of chronic marijuana use. presented 11/18 with nausea/vomiting, admitted for DKA management. DKA has resolved GFR remains at 5 (has been around 10-12 prior to admission) Creatinine decreased slightly overnight, was 12.06, today 11.06, prior to admission around 5-6 pt's acidosis resolved electrolytes normal (with exception of phosphorous of 6.4) pt euvolemic no uremic symptoms currently pt is making urine- 4L in last 24 hours pt does have AV fistula though it is not fully matured; also has HD catheter in place. Physical Exam 2 Vital Signs: Vital Signs: Last Vital Signs Temp 97.1 F 11/24/23 08:00 Pulse 87 11/24/23 08:36 Resp 20 11/24/23 08:00 BP 164/88 H 11/24/23 08:37 Pulse Ox 98 11/24/23 08:00 O2 Del Method Room Air 11/24/23 08:00 O2 Flow Rate 2 11/23/23 12:00 BMI result Body Mass Index 23.0 Const: General: comfortable and no acute distress O rientation/consciousness: oriented to person, oriented to place and oriented to time Neck: Neck: Yes no JVD Resp: Effort & Inspection: able to speak in complete sentences A uscultation: clear to auscultation bilaterally Cardio: Jugular venous distension: no JVD Rate: regular rate Rhythm: r egular rhythm Heart sounds: S1 normal heart sound present and S2 normal heart sound present GI: Palpation (GI): Soft to palpation Rectal Exam - Male: No tenderness : General: Yes no CVA tenderness Back/Spine/Pelvis: Back: no CVA tenderness Skin: Rashes: no rashes Neuro: General: oriented to person, oriented to place and oriented to time Extrem: General: Yes normal to inspection, No edema and No pedal edema Objective Data Labs 11/24/23 05:41 11/24/23 05:41 Labs: Laboratory Results - last 24 hr 11/23/23 11/23/23 11/23/23 12:16 16:16 20:06 WBC RBC Hgb Hct MCV MCH MCHC RDW Plt Count MPV Immature Gran % (Auto) Neut % (Auto) Lymph % (Auto) [place] % (Auto) Eos % (Auto) Baso % (Auto) Lymph # (Auto) [place] # (Auto) Eos # (Auto) Baso # (Auto) Abs Immat Gran (auto) Absolute Neuts (auto) Absolute Nucleated RBC Nucleated RBC % (auto) Sodium Potassium Chloride Carbon Dioxide Anion Gap BUN Creatinine Estim Creat Clear Calc Estimated GFR POC Glucose 125 H 125 H 220 H Random Glucose Calcium Phosphorus Magnesium Albumin 11/24/23 11/24/23 05:41 07:49 WBC 7.3 RBC 3.95 L Hgb 12.1 L Hct 35.0 L MCV 88.6 MCH 30.6 MCHC 34.6 RDW 12.7 Plt Count 191 MPV 9.8 Immature Gran % (Auto) 0.1 Neut % (Auto) 65.3 Lymph % (Auto) 19.4 L [place] % (Auto) 12.4 H Eos % (Auto) 2.2 Baso % (Auto) 0.6 Lymph # (Auto) 1.4 [place] # (Auto) 0.9 Eos # (Auto) 0.2 Baso # (Auto) 0.0 Abs Immat Gran (auto) 0.01 Absolute Neuts (auto) 4.7 Absolute Nucleated RBC 0.000 Nucleated RBC % (auto) 0.0 Sodium 137 Potassium 4.3 Chloride 99 Carbon Dioxide 24 Anion Gap 18 BUN 60 H Creatinine 11.60 H* Estim Creat Clear Calc 8.2 Estimated GFR 5 POC Glucose 227 H Random Glucose 194 H Calcium 9.3 Phosphorus 6.4 H Magnesium 1.9 Albumin 3.4 L Procedures Date of Service Date of Service: 11/24/23 Assessment & Plan Assessment and plan (1) 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: Status: Acute Plan Pt with KAYODE with existing CKD5 due to diabetic ketoacidosis Though creatinine and GFR have worsened significantly, due to lack of uremic symptoms or indications for urgent dialysis, will watch and wait to see if renal function improves given DKA resolved and pt is clinically improving. continue to monitor I&O closely continue to monitor electrolytes, renal function and acid-base balance recommend phosphate binder with meals given elevated phosphorous level monitor for symptoms of uremia, including worsening nausea/vomiting despite resolved DKA, asterixis, altered mental status/confusion/lethargy, new onset pruritis, if so would be indication for dialysis recommend continue hold bumex as patient continues to make large amounts of urine optimize blood sugar. blood pressure is suboptimal, nifedipine XL increased to 60mg daily yesterday. Continue metoprolol ER 100mg daily, hydralazine 100mg PO TID, clonidine 0.1mg PO BID, Discussed wtih Dr Bejarano Time Spent With Patient Time: Total time managing care of this patient today ____ minutes. Progress Note: Quality Stroke Does the patient have a stroke diagnosis?: No
[2023-11-24 11:56] LABS: Glucose, Whole Blood 198 mg/dL (60-115)
[2023-11-24] MEDS: ondansetron HCL 4 MG/2 ML VIAL IVPUSH (16:01)
[2023-11-24 16:38] LABS: Glucose, Whole Blood 186 mg/dL (60-115)
[2023-11-24 20:51] LABS: Glucose, Whole Blood 189 mg/dL (60-115)
[2023-11-24] MEDS: Insulin Glargine,Hum.rec.anlog 100 UNIT/ML 10 ML VIAL 15 UNIT SUBCUT (21:49)
[2023-11-25 03:20] VITALS: BP 130/72; PULSE 80; RESP 16; TEMP 37.3; O2SAT 95
[2023-11-25 08:00] VITALS: BP 170/90; PULSE 81; RESP 20; TEMP 36.1; O2SAT 97
[2023-11-25 08:06] LABS: Glucose, Whole Blood 263 mg/dL (60-115)
[2023-11-25] MEDS: Metoprolol Succinate ER 100 MG TAB.ER.24H PO (08:32)
[2023-11-25] MEDS: cloNIDine HCL 0.1 MG TABLET PO ×2 (08:32→21:57)
[2023-11-25] MEDS: NIFEdipine ER 30 MG TAB.ER.24 60 MG PO (08:32)
[2023-11-25] MEDS: hydrALAZINE HCl 50 MG TABLET 100 MG PO ×3 (08:32→21:57)
[2023-11-25] MEDS: Insulin Lispro 100 UNIT/ML 3 ML VIAL SUBCUT ×4 (08:32→21:56)
[2023-11-25 09:38] LABS: Anion Gap 21 (12-20); Blood Urea Nitrogen 70 mg/dL (9-16); Calcium 8.7 mg/dL (8.4-10.2); Carbon Dioxide 21 mmol/L (22-29); Chloride 95 mmol/L (96-108); Creatinine Clr Calc Pharmacy 9.2; Estimated Glomerular Filt Rate 6; Glucose Random 347 mg/dL (60-115); Potassium 4.2 mmol/L (3.3-5.1); Sodium 133 mmol/L (135-145)
--- NOTE | 2023-11-25 10:22 | MHC.CM.PN ---
Per ROUNDS discussion, Patient has pending labs and is not yet medically cleared for dc;home/resume services is the goal and CM will continue to follow.
[2023-11-25] MEDS: HYDROmorphone HCl 0.5 MG/0.5 ML SYRINGE 0.25 MG IVPUSH ×2 (10:52→15:55)
--- NOTE | 2023-11-25 10:56 | P.PNNP_ITS ---
Subjective Subjective Date of Service: 11/25/23 Interval history: Patient is a 38 y/o male with CKD5, HTN,, type I diabetes mellitus, blindness, as well as multiple admissions for intractable nausea/vomiting setting of chronic marijuana use. presented 11/18 with nausea/vomiting, admitted for DKA management. DKA has resolved GFR remains below recent baseline at 6 (has been around 10-12 prior to admission) Creatinine trending downward, was 12.06, today 10.26, prior to admission around 5-6 electrolytes normal (with exception of phosphorous of 6.4) pt euvolemic no uremic symptoms currently - reports nausea completely resolved. pt is making urine- 900mL thus far today new hyponatremia of 133 pt does have AV fistula though it is not fully matured; also has HD catheter in place. he reports that HD catheter is tender, and some pain radiating down his arm. no swelling no loss of sensation no redness Physical Exam 2 Vital Signs: Vital Signs: Last Vital Signs Temp 97.0 F 11/25/23 08:00 Pulse 81 11/25/23 08:00 Resp 20 11/25/23 08:00 BP 170/90 H 11/25/23 08:00 Pulse Ox 97 11/25/23 08:00 O2 Del Method Room Air 11/25/23 08:00 O2 Flow Rate 2 11/23/23 12:00 BMI result Body Mass Index 23.0 Const: General: comfortable and no acute distress O rientation/consciousness: oriented to person, oriented to place and oriented to time Neck: Other: HD catheter occulsive dressing in place. No erythema or swelling surrounding catheter, no swelling/erythema down right arm. +2 radial/ulnar pulses on right side. Tenderness to palpation around HD catheter site. Neck: Yes no JVD Resp: Effort & Inspection: able to speak in complete sentences A uscultation: clear to auscultation bilaterally Cardio: Jugular venous distension: no JVD Rate: regular rate Rhythm: r egular rhythm Heart sounds: S1 normal heart sound present and S2 normal heart sound present GI: Palpation (GI): Soft to palpation Rectal Exam - Male: No tenderness : General: Yes no CVA tenderness Back/Spine/Pelvis: Back: no CVA tenderness Skin: Rashes: no rashes Neuro: Other: no asterixis General: oriented to person, oriented to place, oriented to time and absent sensation to monofilament Extrem: General: Yes normal to inspection, No edema and No pedal edema Objective Data Labs 11/24/23 05:41 11/25/23 08:58 Labs: Laboratory Results - last 24 hr 11/24/23 11/24/23 11/24/23 11:21 16:29 20:47 Sodium Potassium Chloride Carbon Dioxide Anion Gap BUN Creatinine Estim Creat Clear Calc Estimated GFR POC Glucose 198 H 186 H 189 H Random Glucose Calcium 11/25/23 11/25/23 07:36 08:58 Sodium 133 L Potassium 4.2 Chloride 95 L Carbon Dioxide 21 L Anion Gap 21 H BUN 70 H Creatinine 10.36 H* Estim Creat Clear Calc 9.2 Estimated GFR 6 POC Glucose 263 H Random Glucose 347 H Calcium 8.7 D Procedures Date of Service Date of Service: 11/25/23 Assessment & Plan Assessment and plan (1) 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: Status: Acute Plan Pt with KAYODE with existing CKD5 due to diabetic ketoacidosis Though creatinine and GFR have worsened significantly, due to lack of uremic symptoms or indications for urgent dialysis, will watch and wait to see if renal function improves given DKA resolved and pt is clinically improving. continue to monitor I&O closely continue to monitor electrolytes, renal function and acid-base balance recommend phosphate binder with meals given elevated phosphorous level monitor for symptoms of uremia, including worsening nausea/vomiting despite resolved DKA, asterixis, altered mental status/confusion/lethargy, new onset pruritis, if so would be indication for dialysis ok to monitor HD catheter; will reassess if erythema, edema or other significant changes develop. d/c'd bumex as patient continues to make large amounts of urine optimize blood sugar. Continue nifedipine XL increased to 60mg daily, metoprolol ER 100mg daily, hydralazine 100mg PO TID, clonidine 0.1mg PO BID, for blood pressure control. Discussed with Dr Bejarano Time Spent With Patient Time: Total time managing care of this patient today ____ minutes. Progress Note: Quality Stroke Does the patient have a stroke diagnosis?: No
[2023-11-25 11:44] LABS: Glucose, Whole Blood 270 mg/dL (60-115)
[2023-11-25 12:00] VITALS: BP 141/81; PULSE 90; RESP 20; TEMP 36.2; O2SAT 98
[2023-11-25] MEDS: Sevelamer Carbonate Tablet 800 MG TABLET PO ×2 (12:30→18:08)
--- NOTE | 2023-11-25 12:51 | HO.PM.IMPN ---
Subjective Subjective Date of Service: 11/25/23 Interval History: Admitted to ICU for DKA. At present being followed for acute on chronic kidney disease. Offers no acute complaints except discomfort right neck due to catheter placement. Denies nausea, no vomiting tolerating diet, no lightheadedness, no dizziness, no pain, no fevers no chills, no acute events overnight. Review of Systems All other system reviewed and negative Physical Exam Vital Signs: Vital Signs: Last Vital Signs Temp 97.1 F 11/25/23 12:00 Pulse 90 11/25/23 12:00 Resp 20 11/25/23 12:00 BP 141/81 H 11/25/23 12:00 Pulse Ox 98 11/25/23 12:00 O2 Del Method Room Air 11/25/23 12:00 O2 Flow Rate 2 11/23/23 12:00 BMI result Body Mass Index 23.0 Const: Other: General resting comfortably in no acute distress. Legally blind Neck right IJ catheter, no JVD. CVS regular rate rhythm, Respiratory lungs clear to auscultation, no respiratory distress, no wheeze, no rhonchi. Gastrointestinal abdomen soft, non tender, bowel sounds audible. Extremities no edema. Neuro non focal Skin no rash Psych appropriate affect Objective Data Active Medications Bumetanide (Bumetanide 1 Mg Tablet) 1 mg PO DAILY [facility]; Protocol Last Admin: 11/23/23 09:39 Dose: 1 mg Documented By: DOMENICO Clonidine HCl (Clonidine Hcl 0.1 Mg Tablet) 0.1 mg PO BID [facility]; Protocol Last Admin: 11/25/23 08:32 Dose: 0.1 mg Documented By: YURI Glucose (Glucose Gel 15 Gm Gel..Gram.) 15 gm PO Q15M PRN; Protocol PRN Reason: per Hypoglycemia Standing Ord. Hydralazine HCl (Hydralazine Hcl 50 Mg Tablet) 100 mg PO TID [facility]; Protocol Last Admin: 11/25/23 08:32 Dose: 100 mg Documented By: YURI Hydromorphone HCl (Hydromorphone Hcl 0.5 Mg/0.5 Ml Syringe) 0.25 mg IVPUSH Q4H PRN; Protocol PRN Reason: Pain, Moderate(Pain Scale 4-6) Last Admin: 11/25/23 10:52 Dose: 0.25 mg Documented By: YURI Dextrose (D10) 250 mls @ 750 mls/hr IV Q15M PRN; Protocol PRN Reason: per Hypoglycemia Standing Ord. Insulin Glargine (Insulin Glargine,Hum.Rec.Anlog 100 Unit/Ml 10 Ml Vial) 15 unit SUBCUT BEDTIME OKSANA Last Admin: 11/24/23 21:49 Dose: 15 unit Documented By: FERNY Insulin Human Lispro (Insulin Lispro 100 Unit/Ml 3 Ml Vial) 0 unit SUBCUT QIDACHS [facility]; Protocol Last Admin: 11/25/23 12:30 Dose: 6 unit Documented By: YURI Labetalol HCl (Labetalol Hcl 100 Mg/20 Ml Vial) 10 mg IVPUSH Q2H PRN PRN Reason: Hypertension Last Admin: 11/23/23 02:22 Dose: 10 mg Documented By: VIGNESH Lidocaine (Lidocaine 4 % Patch Adh..Patch) 1 patch TRANSDERMA DAILY [facility]; Protocol Last Admin: 11/25/23 08:43 Dose: Not Given Documented By: YURI Non-Admin Reason: Patient Refused Metoprolol Succinate (Metoprolol Succinate Er 100 Mg Tab.Er.24h) 100 mg PO DAILY [facility]; Protocol Last Admin: 11/25/23 08:32 Dose: 100 mg Documented By: YURI Nifedipine (Nifedipine Er 30 Mg Tab.Er.24) 60 mg PO DAILY [facility]; Protocol Last Admin: 11/25/23 08:32 Dose: 60 mg Documented By: YURI Ondansetron HCl (Ondansetron Hcl 4 Mg/2 Ml Vial) 4 mg IVPUSH Q4H PRN PRN Reason: Nausea Last Admin: 11/24/23 16:01 Dose: 4 mg Documented By: DARREN Sevelamer Carbonate (Sevelamer Carbonate Tablet 800 Mg Tablet) 800 mg PO TIDWM OKSANA Last Admin: 11/25/23 12:30 Dose: 800 mg Documented By: YURI Labs 11/24/23 05:41 11/25/23 08:58 Labs: Laboratory Results - last 24 hr 11/24/23 11/24/23 11/25/23 16:29 20:47 07:36 Anion Gap Estim Creat Clear Calc Estimated GFR POC Glucose 186 H 189 H 263 H Random Glucose Calcium 11/25/23 11/25/23 08:58 10:49 Anion Gap 21 H Estim Creat Clear Calc 9.2 Estimated GFR 6 POC Glucose 270 H Random Glucose 347 H Calcium 8.7 D Assessment and Plan (1) 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: Status: Acute (2) Diabetes type 1, uncontrolled: Status: Inactive Plan 38 year old man admitted to ICU for DKA KAYODE on CKD 5 has temp dialysis cath Being followed closely by Nephrology, GFR remains 6, creatinine trending down to 10.26, baseline around 5-6 Since patient euvolemic with no uremic symptoms and making urine Nephro recommend to follow I's and O's closely, monitor electrolyte, renal function and hold hemodialysis Hold diuretics started on Renvela with meals Continue close monitoring of blood pressure/blood sugar and electrolyte DKA, DM 1. Resolved treated with IV insulin and insulin drip as well as lantus No recurrent episode of hypoglycemia, noted to have elevated blood sugars in 200-300 range, on Lantus 15 units and insulin sliding scale , on Lantus 20 units at home Adjust dose of Lantus and sliding scale,hb aic 6.6 On insulin pump at home Hypertensive urgency. Resolved BP better control with increase in dose of nifedipine to 60 mg, continue Hydralazine, clonidine, and metoprolol 100mg Hyperkalemia. Resolved Due to DKA Mild hyponatremia. Due to hyperglycemia and acute on chronic kidney disease follow labs, treat hyperglycemia. On nortriptyline and gabapentin at bedtime currently on hold Hyperlipidemia, on Lipitor 80 mg and Zetia 10 mg currently on hold Urinary retention on Flomax 0.4 mg at bedtime currently on hold DVT prophylaxis with SCD boots Full code In my clinical judgment patient require continued inpatient hospitalization for monitoring of renal function and to decide for inpatient hemodialysis being followed by senior field service engineer. Quality Stroke Does the patient have a stroke diagnosis?: No VTE Prior VTE?: No VTE Risk Level:: Medical - moderate - high VTE Device Contraindication: N/A - Device Ordered VTE Drug Contraindication: N/A - Med Ordered
[2023-11-25 16:00] VITALS: BP 162/78; PULSE 79; RESP 16; TEMP 36.1; O2SAT 96
[2023-11-25 16:28] LABS: Glucose, Whole Blood 224 mg/dL (60-115)
[2023-11-25 20:00] VITALS: BP 140/73; PULSE 81; RESP 16; TEMP 37; O2SAT 97
[2023-11-25 20:26] LABS: Glucose, Whole Blood 215 mg/dL (60-115)
[2023-11-25] MEDS: Insulin Glargine,Hum.rec.anlog 100 UNIT/ML 10 ML VIAL 15 UNIT SUBCUT (21:56)
[2023-11-25 21:57] VITALS: BP 143/75
[2023-11-26] VITALS: BP 128/74; PULSE 87; RESP 20; TEMP 36.3; O2SAT 97
[2023-11-26 03:48] VITALS: BP 147/84; PULSE 80; RESP 20; TEMP 36.2; O2SAT 96
[2023-11-26 06:55] LABS: Anion Gap 20 (12-20); Blood Urea Nitrogen 78 mg/dL (9-16); Calcium 8.5 mg/dL (8.4-10.2); Carbon Dioxide 20 mmol/L (22-29); Chloride 95 mmol/L (96-108); Estimated Glomerular Filt Rate 6; Glucose Random 372 mg/dL (60-115); Potassium 4.2 mmol/L (3.3-5.1); Sodium 131 mmol/L (135-145)
[2023-11-26 07:22] LABS: Glucose, Whole Blood 364 mg/dL (60-115)
[2023-11-26 08:00] VITALS: BP 164/72; PULSE 84; RESP 18; TEMP 36.4; O2SAT 97
[2023-11-26] MEDS: Lidocaine 4 % Patch ADH..PATCH 1 PATCH TRANSDERMA (08:42)
[2023-11-26] MEDS: NIFEdipine ER 30 MG TAB.ER.24 60 MG PO (08:43)
[2023-11-26] MEDS: Metoprolol Succinate ER 100 MG TAB.ER.24H PO (08:43)
[2023-11-26] MEDS: Insulin Lispro 100 UNIT/ML 3 ML VIAL SUBCUT ×2 (08:43→11:53)
[2023-11-26] MEDS: cloNIDine HCL 0.1 MG TABLET PO (08:43)
[2023-11-26] MEDS: Sevelamer Carbonate Tablet 800 MG TABLET PO ×2 (08:43→11:54)
[2023-11-26] MEDS: hydrALAZINE HCl 50 MG TABLET 100 MG PO ×2 (08:43→14:35)
--- NOTE | 2023-11-26 10:47 | P.PNNP_ITS ---
Subjective Subjective Date of Service: 11/26/23 Interval history: Patient is a 38 y/o male with CKD5, HTN,, type I diabetes mellitus, blindness, as well as multiple admissions for intractable nausea/vomiting setting of chronic marijuana use. presented 11/18 with nausea/vomiting, admitted for DKA management. DKA has resolved GFR remains below recent baseline at 6 (has been around 10-12 prior to admission) Creatinine trending downward, was 12.06, today 10.26, prior to admission around 5-6 electrolytes normal (with exception of phosphorous of 6.4) pt euvolemic no uremic symptoms currently - reports nausea completely resolved. pt is making urine- 900mL thus far today sodium 131 this a.m. pt does have AV fistula though it is not fully matured; also has HD catheter in place. Denies pain/concerns with catheter this a.m. alert and conversant, oriented denies nausea, vomiting, tremors, itching, muscle cramps Physical Exam 2 Vital Signs: Vital Signs: Last Vital Signs Temp 97.5 F 11/26/23 08:00 Pulse 84 11/26/23 08:00 Resp 18 11/26/23 08:00 BP 164/72 H 11/26/23 08:00 Pulse Ox 97 11/26/23 08:00 O2 Del Method Room Air 11/26/23 08:00 O2 Flow Rate 2 11/23/23 12:00 BMI result Body Mass Index 23.0 Const: General: comfortable and no acute distress O rientation/consciousness: oriented to person, oriented to place and oriented to time Neck: Neck: Yes no JVD Resp: Effort & Inspection: able to speak in complete sentences A uscultation: clear to auscultation bilaterally Cardio: Jugular venous distension: no JVD Rate: regular rate Rhythm: r egular rhythm Heart sounds: S1 normal heart sound present and S2 normal heart sound present GI: Palpation (GI): Soft to palpation Rectal Exam - Male: No tenderness : General: Yes no CVA tenderness Back/Spine/Pelvis: Back: no CVA tenderness Skin: Rashes: no rashes Neuro: Other: no asterixis General: oriented to person, oriented to place, oriented to time and absent sensation to monofilament Extrem: General: Yes normal to inspection, No edema and No pedal edema Objective Data Labs 11/24/23 05:41 11/26/23 05:52 Labs: Laboratory Results - last 24 hr 11/25/23 11/25/23 11/25/23 10:49 16:22 20:17 Sodium Potassium Chloride Carbon Dioxide Anion Gap BUN Creatinine Estim Creat Clear Calc Estimated GFR POC Glucose 270 H 224 H 215 H Random Glucose Calcium 11/26/23 11/26/23 05:52 07:17 Sodium 131 L Potassium 4.2 Chloride 95 L Carbon Dioxide 20 L Anion Gap 20 BUN 78 H Creatinine 9.59 H* Estim Creat Clear Calc 10.0 Estimated GFR 6 POC Glucose 364 H* Random Glucose 372 H* Calcium 8.5 Procedures Date of Service Date of Service: 11/26/23 Assessment & Plan Assessment and plan (1) 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: Status: Acute Plan Pt with KAYODE with existing CKD5 due to diabetic ketoacidosis DKA has resolved. Though creatinine and GFR have decreased from baseline, but creatinine has had some gradual improvement. Due to lack of uremic symptoms or indications for urgent dialysis, will watch and wait to see if renal function improves given DKA resolved and pt looks well clinically. continue to monitor I&O continue to monitor electrolytes, renal function and acid-base balance recommend phosphate binder with meals given elevated phosphorous level monitor for symptoms of uremia, including worsening nausea/vomiting despite resolved DKA, asterixis, altered mental status/confusion/lethargy, new onset pruritis, if so would be indication for dialysis optimize blood sugar. Continue nifedipine XL increased to 60mg daily, metoprolol ER 100mg daily, hydralazine 100mg PO TID, clonidine 0.1mg PO BID, for blood pressure control. Pt ok for discharge home from renal standpoint, should have outpatient follow up with nephrology within next week. Discussed with Dr Bejarano Time Spent With Patient Time: Total time managing care of this patient today ____ minutes. Progress Note: Quality Stroke Does the patient have a stroke diagnosis?: No
[2023-11-26 11:15] LABS: Glucose, Whole Blood 287 mg/dL (60-115)
[2023-11-26 11:56] VITALS: BP 141/81; PULSE 81; RESP 20; TEMP 36.7; O2SAT 95
[2023-11-26 14:35] VITALS: BP 162/88
[2023-11-26 16:00] VITALS: BP 160/62; PULSE 78; RESP 16; TEMP 36.5; O2SAT 96
--- NOTE | 2023-11-26 16:13 | P.DS_ITS ---
DS: Providers Provider Date of Service: 11/26/23 Date of admission: 11/19/23 16:32 Date of discharge: 11/26/23 Primary care physician: Hong Rodríguez MD Consults: 11/21/23 07:45 Consult to Nephrology Stat Consulting Provider: [facility] Reason for consultation: ?Urgent Dialysis Has provider been notified: Yes DS: Diagnosis Discharge Diagnosis (1) 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: Status: Acute DS: Summary Hospital Course Hospital Course: History of presenting illness: Date of Service: 11/19/23 Chief Complaint: Nausea/Vomiting Patient is a 38 Y M with hypertension, type I diabetes mellitus, c/b end-stage renal disease, blindness, as well as multiple admissions for intractable nausea/vomiting setting of chronic marijuana use, presenting initially to emergency department with nausea/vomiting, found to have elevated glucose, anion-gap, and beta-hydroxybutyrate, admitted ICU for DKA management. Hospital course: 38 year old man admitted to ICU for DKA treated with IV insulin and insulin drip as well as lantus , responded well to above treatment, DKA resolved subsequently patient placed on Lantus and insulin sliding scale, hemoglobin A1c 6.6 recommend patient to follow diabetic diet and resume insulin pump at home, and have close outpatient follow-up with primary care physician, noted to have hyperkalemia likely due to DKA and KAYODE now resolved. Nausea vomiting resolved was likely exacerbated by marijuana use. During course of hospitalization patient noted to have KAYODE on CKD 5 , GFR decreased to 5 with baseline around 10-12 prior to admission, creatinine increased to 12.06 prior to admission was around 5-6 noted to have acidosis and electrolyte abnormalities, no uremic symptoms were noted ,patient was making urine, he was followed closely by Nephrology since creatinine is gradually trending down, nephrology recommend to discharge patient home and to have outpatient follow-up with them in 1 week patient does have AV fistula though it is not fully mature, patient had a hemodialysis catheter placed that is removed prior to discharge, will hold diuretics upon discharge. Hypertensive urgency. Resolved ,BP better control with increase in dose of nifedipine xl to 60 mg, continue Hydralazine, clonidine, and metoprolol 100mg recommend outpatient follow-up with Nephrology. In regard to mood disorder will resume nortriptyline in hold gabapentin due to worsening renal function. These patient Hyperlipidemia, continue Lipitor, hold Zetia recommend outpatient lipid profile. Urinary retention on Flomax 0.4 mg at bedtime currently on hold Time Attestation Discharge Coordination Time (in mins): 40 Quality: Safe Use of Opioids Does Pt have an Active Cancer Diagnosis on the Problem List?: No Quality: Stroke Does the patient have a stroke diagnosis?: No Physical Exam Vital Signs: Vital Signs: Last Vital Signs Temp 98.0 F 11/26/23 11:56 Pulse 81 11/26/23 11:56 Resp 20 11/26/23 11:56 BP 162/88 H 11/26/23 14:35 Pulse Ox 95 11/26/23 11:56 O2 Del Method Room Air 11/26/23 11:56 O2 Flow Rate 2 11/23/23 12:00 BMI result Body Mass Index 23.0 Const: Other: General resting comfortably in no acute distress. Legally blind Neck no JVD. CVS regular rate rhythm, Respiratory lungs clear to auscultation, no respiratory distress, no wheeze, no rhonchi. Gastrointestinal abdomen soft, non tender, bowel sounds audible. Extremities no edema. Neuro non focal Skin no rash Psych appropriate affect DS: Data Data Completed and Pending Completed studies during hospitalization [Text1]: Procedures Insertion of Endotracheal Airway into Trachea, Via Natural or Artificial Opening Endoscopic (07/29/21) Insertion of Infusion Device into Superior Vena Cava, Percutaneous Approach (07/29/21) Introduction of Vasopressor into Peripheral Vein, Percutaneous Approach (07/29/21) Respiratory Ventilation, Greater than 96 Consecutive Hours (07/29/21) Ultrasonography of Superior Vena Cava, Guidance (07/29/21) Labs on day of discharge: Laboratory Results - last 24 hr 11/25/23 11/25/23 11/26/23 16:22 20:17 05:52 Sodium 131 L Potassium 4.2 Chloride 95 L Carbon Dioxide 20 L Anion Gap 20 BUN 78 H Creatinine 9.59 H* Estim Creat Clear Calc 10.0 Estimated GFR 6 POC Glucose 224 H 215 H Random Glucose 372 H* Calcium 8.5 11/26/23 11/26/23 07:17 11:05 Sodium Potassium Chloride Carbon Dioxide Anion Gap BUN Creatinine Estim Creat Clear Calc Estimated GFR POC Glucose 364 H* 287 H Random Glucose Calcium Discharge Plan Discharge Anticipated Discharge Date/Time: 11/26/23 16:09 Patient Disposition: Home, Self-Care Discharge Diagnosis: KAYODE on chronic kidney disease stage 5 DKA Referrals: Name,MD Hong [Primary Care Provider] - 1 Week Discharge Medications: New clonidine HCl 0.1 mg Tablet 0.1 mg PO BID Qty: 60 0RF Protocol: Hold for SBP< HOLD for SBP < : 90 nifedipine [Procardia XL] 60 mg tablet extended release 24hr 60 mg PO DAILY Qty: 60 0RF Continued atorvastatin 80 mg tablet 80 mg PO DAILY Qty: 30 6RF (DME) Omnipod 5 G6 Intro Kit (Gen 5) Cartridge See Rx Instructions .Route Qty: 1 4RF Rx Instructions: As directed insulin aspart U-100 100 unit/mL solution See Rx Instructions subcut TID Qty: 20 5RF Rx Instructions: infuse up to 70 units via insulin pump subcutaneously 3 times a day; calcitriol 0.5 mcg capsule 0.5 mcg PO DAILY Qty: 90 3RF (DME) Omnipod 5 G6 Pods (Gen 5) Cartridge See Rx Instructions .ROUTE .COMPLEX Qty: 10 11RF Dose Instruction: CHANGE POD EVERY 72 HOURS DIRECTED Rx Instructions: CHANGE POD EVERY 72 HOURS DIRECTED Baqsimi 3 mg/actuation spray,non-aerosol 3 mg intranasal DAILY MDD 6mg PRN (Reason: Nonresponsive hypoglycemia) Rx Instructions: Unresponsive hypoglycemia may repeat in 15 minutes metoprolol succinate 100 mg tablet extended release 24 hr 100 mg PO DAILY Rx Instructions: take with the 50mg omeprazole 40 mg capsule,delayed release(DR/EC) 40 mg PO DAILY@0630 hydralazine 100 mg tablet 100 mg PO TID nortriptyline 50 mg capsule 50 mg PO BEDTIME tamsulosin 0.4 mg capsule 0.4 mg PO QPM (DME) pen needle, diabetic [BD Ultra-Fine Shannan Pen Needle] 32 gauge x 5/32 needle See Rx Instructions .ROUTE QID Qty: 100 3RF Rx Instructions: As directed prn pump failure up to 4 times daily (DME) Ketone Urine Test Strip See Rx Instructions .ROUTE .MEDSUPPLY Qty: 25 3RF Rx Instructions: Prn glucose over 250, nausea or vomiting, tid Discontinued ezetimibe [Zetia] 10 mg tablet 10 mg PO DAILY 90 Days Qty: 90 1RF metoprolol succinate 50 mg tablet extended release 24 hr 50 mg PO DAILY Rx Instructions: take with the 100mg furosemide 20 mg tablet 20 mg PO DAILY insulin glargine [Lantus Solostar U-100 Insulin] 100 unit/mL (3 mL) insulin pen 20 unit subcut BEDTIME MDD 20 units nifedipine 30 mg tablet extended release 24hr 30 mg PO QAM gabapentin 300 mg capsule 300 mg PO BEDTIME Discharge Orders: Discharge Order (Routine); Ordered 11/26/23 Ordered By: Conner Neville Diet: Low fat, low cholesterol Activity on Discharge: As tolerated Stand Alone Forms: Patient Portal Discharge page Print Language: German Care Plan Goals: Follow blood sugars closely/follow-up with primary care physician and check lipid profile and adjust dose of Lipitor Take all new blood pressure medications as ordered Health Concerns: Diabetes mellitus resume insulin pump at home/follow diabetic diet Plan of Treatment: Outpatient follow-up with Nephrology next week call for appointment Outpatient follow-up with primary care physician Assessment: As above
--- NOTE | 2023-11-26 16:14 | MHC.CM.PN ---
Patient has been medically cleared for dc to home today, self care.
== END 2023-11-26 17:04 | disposition home or self-care (01) | DRG 420 ==
LOC: HO.ED 16:22 → HO.EDOVER 18:11 → HO.ICU 18:11 → HO.IMC 11-23 11:43
PROVIDERS: Internal Medicine Pulmonary Disease; Nurse Practitioner Acute Care; Nurse Practitioner Family; Admitting Provider Internal Medicine Critical Care Medicine; Emergency Provider Student in an Organized Health Care Education/Training Program; PCP Internal Medicine Geriatric Medicine; Visit Provider Hospitalist
DX: E10.10 Type 1 diabetes mellitus with ketoacidosis without coma (principal); E10.649 Type 1 diabetes mellitus with hypoglycemia without coma; N17.9 Acute kidney failure, unspecified; E10.42 Type 1 diabetes mellitus with diabetic polyneuropathy; I12.0 Hypertensive chronic kidney disease with stage 5 chronic kidney disease or end stage renal disease; E10.22 Type 1 diabetes mellitus with diabetic chronic kidney disease; I16.0 Hypertensive urgency; E87.1 Hypo-osmolality and hyponatremia; E78.5 Hyperlipidemia, unspecified; E87.5 Hyperkalemia; N18.5 Chronic kidney disease, stage 5; H54.8 Legal blindness, as defined in USA; K52.9 Noninfective gastroenteritis and colitis, unspecified; R11.2 Nausea with vomiting, unspecified; F12.90 Cannabis use, unspecified, uncomplicated; Z20.822 Contact with and (suspected) exposure to COVID-19; Z87.891 Personal history of nicotine dependence; Z79.899 Other long term (current) drug therapy
CPT/HCPCS: 0241U; 36415; 71045; 74177; 80048; 80076; 81001; 82010; 82040; 82803; 82947; 83036; 83605; 83690; 83735; 84100; 84484; 85025; 85027; 85610; 85730; 86850; 86900; 86901; 93005; 99285; J0131; J0613; J1170; J1200; J1650; J1790; J1920; J1940; J2060; J2250; J2270; J2404; J2405; J2470; J2543; J3475; J3480; Q9967

== ENCOUNTER → 2023-11-19 16:32 | Outpatient (BNV) | payer MEDICAID, SELFPAY | PROVIDERS: Admitting Provider Internal Medicine Critical Care Medicine; Emergency Provider Student in an Organized Health Care Education/Training Program; PCP Internal Medicine Geriatric Medicine; Visit Provider Internal Medicine Pulmonary Disease | DX: E10.22 Type 1 diabetes mellitus with diabetic chronic kidney disease (principal); E10.10 Type 1 diabetes mellitus with ketoacidosis without coma; N18.6 End stage renal disease; E10.65 Type 1 diabetes mellitus with hyperglycemia | CPT/HCPCS: 99232 ==

== ENCOUNTER → 2023-11-19 16:32 | Outpatient (BNV) | payer MEDICAID, SELFPAY | PROVIDERS: Admitting Provider Internal Medicine Critical Care Medicine; Emergency Provider Student in an Organized Health Care Education/Training Program; Visit Provider Internal Medicine Critical Care Medicine | DX: N18.6 End stage renal disease (principal); E10.10 Type 1 diabetes mellitus with ketoacidosis without coma | CPT/HCPCS: 36556; 99223; 99291 ==

== ENCOUNTER → 2023-11-19 16:32 | Outpatient (BNV) | payer MEDICAID, SELFPAY | PROVIDERS: Admitting Provider Internal Medicine Critical Care Medicine; Emergency Provider Student in an Organized Health Care Education/Training Program; PCP Internal Medicine Geriatric Medicine; Visit Provider Nurse Practitioner Acute Care | DX: I16.0 Hypertensive urgency (principal); R10.9 Unspecified abdominal pain | CPT/HCPCS: 99232; 99239; 99499 ==

== ENCOUNTER → 2023-11-19 16:32 | Outpatient (BNV) | payer MEDICAID, SELFPAY | PROVIDERS: Admitting Provider Internal Medicine Critical Care Medicine; Emergency Provider Student in an Organized Health Care Education/Training Program; PCP Internal Medicine Geriatric Medicine; Visit Provider Nurse Practitioner Family | DX: E10.22 Type 1 diabetes mellitus with diabetic chronic kidney disease (principal); N18.5 Chronic kidney disease, stage 5 | CPT/HCPCS: 99223; 99232 ==

== ENCOUNTER 2023-11-30 15:29 | Inpatient (IN) | payer MEDICAID, SELFPAY ==
--- NOTE | ~2023-11-30 | CT_ITS ---
EXAMINATION: CT ABDOMEN AND PELVIS WITHOUT CONTRAST CLINICAL INFORMATION: Epigastric and left lower quadrant pain COMPARISON: CT abdomen and pelvis 11/19/2023. TECHNIQUE: Multidetector volumetric imaging was performed from the superior aspect of the liver through the pubic symphysis. Sagittal and coronal reformatted images were obtained on the technologist's workstation. This CT examination was performed using dose optimization techniques as appropriate, variously including the following: *Automated exposure control *Adjustment of mA and/or kV according to patient size (this includes techniques or standardized protocols for targeted exams where dose is matched to indication/reason for exam; i.e. extremities or head) *Use of iterative reconstruction technique DLP: 453 mGy-cm FINDINGS: LUNG BASES: The visualized lung bases are unremarkable. LIVER, GALLBLADDER, AND BILIARY TREE: The liver is normal in size, shape, and attenuation. No focal hepatic lesion or biliary ductal dilatation is present. The gallbladder is unremarkable with no evidence of radiopaque gallstones, gallbladder wall thickening, or obvious pericholecystic inflammatory changes. PANCREAS: Unremarkable. SPLEEN: Punctate splenic calcification likely representing an incidental calcified granuloma. ADRENAL GLANDS: Unremarkable. KIDNEYS AND URETERS: The kidneys are normal in size, shape, and attenuation. No hydronephrosis, hydroureter, or calculi seen. No perinephric stranding. BLADDER: Unremarkable. GASTROINTESTINAL TRACT: Concentric mural thickening of the distal transverse colon, as splenic flexure and proximal descending colon. Mural thickening measures up to 9 mm in width (within normal limits 6 mm or less.) The appendix is not visualized. No pericecal inflammatory changes noted. No free intraperitoneal fluid or gas collections. Making allowances for partially contracted appearance of the stomach, stomach is grossly normal in appearance. Normal appearance of the duodenum. ABDOMINAL WALL: No significant hernia is appreciated. LYMPH NODES: Normal. VASCULAR: Scattered Monckeberg type vascular calcifications. PELVIC VISCERA: Normal appearance of the prostate. OSSEOUS STRUCTURES: No suspicious osseous lesions noted. CT/CT abdomen pelvis wo IV con IMPRESSION: *Mild concentric segmental mural thickening of the distal transverse colon, splenic flexure and proximal descending colon similar findings present 11/19/2023. Findings could represent infectious or ischemic colitis. Findings could represent C. difficile colitis. Electronically signed by: Leonel Padilla MD 12/01/2023 02:35 AM EDT
[2023-11-30 15:36] VITALS: BP 185/82; BP 190/94; PULSE 120; PULSE 124; RESP 20; TEMP 36.6; O2SAT 98; O2SAT 99; BMI 25.8
--- NOTE | 2023-11-30 15:41 | ECG_ITS ---
Test Reason : tachycardia Blood Pressure : / mmHG Vent. Rate : 120 BPM Atrial Rate : 120 BPM P-R Int : 118 ms QRS Dur : 084 ms QT Int : 326 ms P-R-T Axes : 065 069 030 degrees QTc Int : 460 ms Sinus tachycardia Otherwise normal ECG When compared with ECG of 19-NOV-2023 12:08, Nonspecific T wave abnormality now evident in Inferior leads Referred By: Generic ED Physician Electronically Signed By:LESLIE GEIGER MD
[2023-11-30 15:47] LABS: Glucose, Whole Blood 210 mg/dL (60-115)
[2023-11-30 15:54] LABS: MANUAL DIFF FLAG NO
--- NOTE | 2023-11-30 15:54 | PC.NURSE ---
patient presents via ems for left sided lower quadrant pain, patient has ems line 18# in the right AC, this RN started a 20 in the right hand. patient is at baseline mentation. patient noted to be in sinus tach on the monitor 120s. patient poc 210.patient noted to be jaundice.
[2023-11-30 15:55] LABS: Basophils Absolute Auto 0.1 X10*3/uL (0.0-0.2); Basophils Percent Auto 0.4 % (0-2); Eosinophils Percent Auto 0.1 % (0-4); Hemoglobin 11.1 g/dl (14.0-18.0); Imm Gran Abs Auto 0.06 X10*3/uL (0.00-0.03); Imm Gran Pct Auto 0.5 % (0.0-0.4); Lymphocytes Absolute Auto 1.1 X10*3/uL (1.2-4.9); Lymphocytes Percent Auto 9.4 % (20-40); Mean Corpuscular HGB Conc 34.7 g/dl (31.0-36.0); Mean Corpuscular Volume 86.5 fL (80.0-98.0); Mean Platelet Volume 9.7 fL (9.4-12.4); Monocytes Absolute Auto 0.6 X10*3/uL (0.1-1.2); Monocytes Percent Auto 5.1 % (2-11); Neutrophils Absolute Auto 9.8 x10*3/uL (2.0-8.3); Neutrophils Percent Auto 84.5 % (45-73); Platelet Count 327 X10*3/uL (160-400); Red Cell Distribution Width 12.2 % (11.0-16.0); White Blood Count 11.5 X10*3/uL (4.8-10.8)
[2023-11-30 16:12] LABS: Lactic Acid 1.1 mmol/L (0.5-2.0)
[2023-11-30 16:25] LABS: Alanine Aminotransferase 16 U/L (0-40); Albumin Level 3.9 g/dL (3.5-5.0); Alkaline Phosphatase 70 U/L (39-117); Anion Gap 17 (12-20); Aspartate Amino Transferase 17 U/L (5-37); Bilirubin Total 0.5 mg/dL (0.0-1.0); Blood Urea Nitrogen 55 mg/dL (9-16); Calcium 9.6 mg/dL (8.4-10.2); Carbon Dioxide 22 mmol/L (22-29); Chloride 103 mmol/L (96-108); Glucose Random 225 mg/dL (60-115); Lipase 52 U/L (8-78); Potassium 3.4 mmol/L (3.3-5.1); Sodium 139 mmol/L (135-145); Total Protein 7.2 g/dL (6.5-8.0)
[2023-11-30 16:26] LABS: Creatinine Clr Calc Pharmacy 12.8; Estimated Glomerular Filt Rate 8
--- NOTE | 2023-11-30 16:37 | ED_ITS ---
HPI - General Adult General Chief complaint: Abdominal Pain Stated complaint: LLQ PAIN,?JAUNDICE PER EMS Time Seen by Provider: 11/30/23 15:45 History of Present Illness ED Provider: Dr. Aragon HPI narrative: 38 y/o M patient; PMH ESRD, T1DM with diabetic neuropathy and gastroparesis, HTN; who presents from home via EMS reporting left lower quadrant abdominal pain since this morning. Denies associated fever or chills, nausea/vomiting. Last bowel movement was this morning. He received Fentanyl 80mcg with EMS and Zofran 4mg with EMS. On chart review patient last seen in this emergency department on 11/19/2023 for abdominal pain. He was admitted to ICU at that time in DKA. Related Data Home Medications ?Medication ?Instructions ?Recorded ?Confirmed omeprazole 40 mg capsule,delayed 40 mg PO DAILY@0630 01/04/20 11/30/23 release hydralazine 100 mg tablet 100 mg PO TID 05/13/22 11/30/23 metoprolol succinate 100 mg 100 mg PO DAILY 02/10/23 11/30/23 tablet,extended release 24 hr nortriptyline 50 mg capsule 50 mg PO BEDTIME 03/09/23 11/30/23 tamsulosin 0.4 mg capsule 0.4 mg PO BEDTIME 08/04/23 11/30/23 acetaminophen 500 mg tablet 500 mg PO Q8H PRN moderate pain 11/30/23 11/30/23 ezetimibe 10 mg tablet 10 mg PO DAILY 11/30/23 11/30/23 gabapentin 300 mg capsule 300 mg PO BEDTIME 11/30/23 11/30/23 insulin aspart U-100 100 unit/mL 0 - 70 unit continuous 11/30/23 11/30/23 subcutaneous solution subcutaneous infusion TID Previous Rx's ?Medication ?Instructions ?Recorded atorvastatin 80 mg tablet 80 mg PO DAILY #30 tabs 12/12/20 insulin pump cartridge,automated #1 ea 02/19/22 dose,BT with controller subcutaneous (Omnipod 5 G6 Intro Kit (Gen 5) subcutaneous cartridge with controller) calcitriol 0.5 mcg capsule 0.5 mcg PO DAILY #90 caps 08/19/23 acetone (urine) test (Ketone Urine #25 ea 09/25/23 Test strips) pen needle, diabetic 32 gauge x #100 ea 09/25/23 (BD Ultra-Fine Shannan Pen Needle) insulin pump cart,automated,BT #10 ea 10/23/23 (Omnipod 5 G6 Pods (Gen 5) subcutaneous cartridge) clonidine HCl 0.1 mg tablet 0.1 mg PO BID #60 tabs 11/26/23 nifedipine 60 mg tablet,extended 60 mg PO DAILY #60 tabs 11/26/23 release 24 hr (Procardia XL) sevelamer carbonate 800 mg tablet 800 mg PO TIDWM #90 tabs 11/26/23 Allergies Allergy/AdvReac Type Severity Reaction Status Date / Time losartan Allergy Gastrointestinal Verified 11/30/23 15:40 Upset valsartan AdvReac Unknown GI problems Verified 11/30/23 15:40 Review of Systems 2 Review of Systems: Yes all other systems are reviewed and are negative COUNT INCLUDES THE [facility] Past Medical History Attestation statement: The following information was validated with the patient. Source: old records reviewed Medical History Hypertensive urgency CKD (chronic kidney disease) stage 4, GFR 15-29 ml/min Hypertensive nephrosclerosis Diabetic gastroparesis Pancreatitis Vitamin D deficiency Hypocalcemia Background diabetic retinopathy associated with type 2 diabetes mellitus Diabetes type 1, uncontrolled Hemangioma of liver Legally blind Acid reflux Sciatica Gastritis Polyneuropathy Essential hypertension Hyperlipidemia LDL goal <70 Surgical History Hx of endoscopy Hx of circumcision Hx of appendectomy Hx of eye surgery Family History Family History Father Diabetes mellitus Mother Diabetes mellitus Maternal Grandfather Diabetes mellitus Maternal Grandmother Diabetes mellitus Social History Social History Household Members: Spouse Household Members Other:: and girlfriend Housing: House Do you presently have visiting nurse or other home services: Yes Alcohol intake: former Comment: refusing fall risk interventions. Patient Tobacco Use Status: Former Tobacco user Smoked in Last 30 Days: No Second Hand Smoke Exposure: No Use of substances other than those prescribed or required for medical reasons: Yes Substance Use Type: Marijuana Advance Directives: Yes Advance Directives on File: Yes Advance Directives Date on File: 04/13/20 Do you have a plan to hurt others: No Plan service: No Current occupational status: disabled Physical Exam ED Vital Signs: Vital Signs - 24 hr 11/30/23 15:36 11/30/23 18:17 11/30/23 20:20 Temperature 97.9 F 98.8 F 98.8 F Pulse Rate 124 H 142 H 148 H Respiratory Rate 20 16 16 Blood Pressure 190/94 H 188/85 H 156/71 H Pulse Oximetry 99 98 98 Oxygen Delivery Method Room Air Room Air Room Air BMI result Body Mass Index 25.8 Patient is afebrile, quite tachycardic, and hypertensive. Const General: cooperative HENMT Head: Yes normal to inspection and Yes atraumatic Eyes General: appearance normal, both eyes and all related structures Pupils: Equal, round and reactive pupils present EOM: EOMs intact bilaterally Neck Neck: Yes normal visual inspection, Yes full ROM, Yes supple and No tender Chest Chest palpation & inspection: normal inspection of the chest and normal palpation of entire chest wall Resp Effort & Inspection: normal respiratory effort, able to speak in complete sentences, no cough and no respiratory distress Auscultation: clear to auscultation bilaterally Cardio Rate: tachycardic Rhythm: regular rhythm Peripheral pulses: Peripheral pulses 2+ throughout GI Other: Generalized non-focal tenderness mildly worse in the LLQ Inspection: Yes normal to inspection, No Abdominal wall edema and No distended Palpation (GI): Soft to palpation, not firm, Tenderness to palpation present (GI), no guarding and not rigid Auscultation: normal bowel sounds Back/Spine/Pelvis Back: No back tenderness Neuro Cranial nerves: Yes Equal, round and reactive pupils present Course Course Course Narrative: Patient is afebrile, tachycardic, and mildly hypertensive. Reviewed triage labs. Labs reviewed. Mildly leukocytosis 11.5. Mild baseline anemia 11.1. Glucose 225. AGAP 17. Cr 7.48, prior Cr 9.59. Patient has a left-sided dialysis fistula but has not yet started dialysis. LA 1.1. Patient does not appear be in DKA with glucose 225, suspect AGAP 17 is 2/2 to ESRD and elevated BUN. Bicarb is 22. Will add beta hydroxybuterate. Will treat symptomatically with Benadryl 50 IV, Droperidol 1.25 IV, and Reglan 10 IV. Providing 2L IVF. Beta hydroxybuterate 2.19. Repeat POC glucose which is now 396. Ordered repeat BMP and VBG. This is after 2L IVF. Will speak with ICU. Patient has not had further nausea/vomiting - tolerating ice chips. VBG with decrease in HCO3 to 15. pH 7.42. AGAP 22. Glucose 452. Provided 10unit insulin IV. ICU consulted on patient - provided Insulin Glargine 10 units IV. Plan: Admit to hospitalist Condition: Stable Medications Administered Generic Name Dose Route Start Last Admin Trade Name Freq PRN Reason Stop Dose Admin Insulin Human Regular 100 unit in 100 mls @ 0.1 mls/hr 11/30/23 19:15 11/30/23 20:16 Myxredlin IVCONT Not Given .Q24H OKSANA Protocol 0.1 UNIT/HR Discontinued Medications Generic Name Dose Route Start Last Admin Trade Name Freq PRN Reason Stop Dose Admin Diphenhydramine HCl 50 mg 11/30/23 16:47 11/30/23 16:56 Diphenhydramine Hcl 50 Mg/Ml Vial IVPUSH 11/30/23 16:48 50 mg ONCE ONE Administration Droperidol 1.25 mg 11/30/23 16:47 11/30/23 16:56 Droperidol 5 Mg/2 Ml Vial IVPUSH 11/30/23 16:48 1.25 mg ONCE ONE Administration Sodium Chloride 1,000 mls @ 999 mls/hr 11/30/23 17:00 11/30/23 18:18 Ns IV 11/30/23 18:00 Infused .Q1H1M OKSANA Infusion Sodium Chloride 1,000 mls @ 999 mls/hr 11/30/23 17:15 11/30/23 18:18 Ns IV 11/30/23 18:15 999 mls/hr .Q1H1M OKSANA Administration Insulin Human Regular 10 unit 11/30/23 19:50 11/30/23 20:14 Insulin Regular, Human 100 Unit/Ml 10 Ml Vial IVPUSH 11/30/23 19:51 10 unit ONCE ONE Administration Metoclopramide HCl 10 mg 11/30/23 16:47 11/30/23 16:56 Metoclopramide Hcl 10 Mg/2 Ml Vial IVPUSH 11/30/23 16:48 10 mg ONCE ONE Administration Medical Decision Making Lab Data 10/07/24 15:50 11/30/23 19:08 Labs: Lab Results 11/30/23 11/30/23 11/30/23 Range/Units 15:44 15:50 18:44 WBC 11.5 H (4.8-10.8) X10*3/uL RBC 3.70 L (4.60-5.80) X10*6/uL Hgb 11.1 L (14.0-18.0) g/dl Hct 32.0 L (42.0-52.0) % MCV 86.5 (80.0-98.0) fL MCH 30.0 (27.0-33.0) pg MCHC 34.7 (31.0-36.0) g/dl RDW 12.2 (11.0-16.0) % Plt Count 327 D (160-400) X10*3/uL MPV 9.7 (9.4-12.4) fL Immature Gran % (Auto) 0.5 H (0.0-0.4) % Neut % (Auto) 84.5 H (45-73) % Lymph % (Auto) 9.4 L (20-40) % Flagler % (Auto) 5.1 (2-11) % Eos % (Auto) 0.1 (0-4) % Baso % (Auto) 0.4 (0-2) % Lymph # (Auto) 1.1 L (1.2-4.9) X10*3/uL Flagler # (Auto) 0.6 (0.1-1.2) X10*3/uL Eos # (Auto) 0.0 (0.0-0.4) X10*3/uL Baso # (Auto) 0.1 (0.0-0.2) X10*3/uL Abs Immat Gran (auto) 0.06 H (0.00-0.03) X10*3/uL Absolute Neuts (auto) 9.8 H (2.0-8.3) x10*3/uL Absolute Nucleated RBC 0.000 (0.0-0.012) X10*3/uL Nucleated RBC % (auto) 0.0 (0.0-0.2) /100WBC VBG pH (7.32-7.43) VBG pCO2 mmHg VBG pO2 mmHg VBG HCO3 (22-26) mmol/L VBG O2 Saturation % VBG Base Excess mmol/L Sodium 139 (135-145) mmol/L Potassium 3.4 (3.3-5.1) mmol/L Chloride 103 (96-108) mmol/L Carbon Dioxide 22 (22-29) mmol/L Anion Gap 17 (12-20) BUN 55 H (9-16) mg/dL Creatinine 7.48 H* (0.5-1.4) mg/dL Estim Creat Clear Calc 12.8 Estimated GFR 8 POC Glucose 210 H 397 H* (60-115) mg/dL Random Glucose 225 H (60-115) mg/dL Lactic Acid 1.1 (0.5-2.0) mmol/L Calcium 9.6 D (8.4-10.2) mg/dL Magnesium 2.0 (1.6-2.6) mg/dL Total Bilirubin 0.5 (0.0-1.0) mg/dL AST 17 (5-37) U/L ALT 16 (0-40) U/L Alkaline Phosphatase 70 (39-117) U/L Total Protein 7.2 (6.5-8.0) g/dL Albumin 3.9 (3.5-5.0) g/dL Lipase 52 (8-78) U/L Beta-Hydroxybutyrate 2.19 H (0.02-0.27) mmol/L 11/30/23 11/30/23 Range/Units 19:08 19:13 WBC (4.8-10.8) X10*3/uL RBC (4.60-5.80) X10*6/uL Hgb (14.0-18.0) g/dl Hct (42.0-52.0) % MCV (80.0-98.0) fL MCH (27.0-33.0) pg MCHC (31.0-36.0) g/dl RDW (11.0-16.0) % Plt Count (160-400) X10*3/uL MPV (9.4-12.4) fL Immature Gran % (Auto) (0.0-0.4) % Neut % (Auto) (45-73) % Lymph % (Auto) (20-40) % Flagler % (Auto) (2-11) % Eos % (Auto) (0-4) % Baso % (Auto) (0-2) % Lymph # (Auto) (1.2-4.9) X10*3/uL Flagler # (Auto) (0.1-1.2) X10*3/uL Eos # (Auto) (0.0-0.4) X10*3/uL Baso # (Auto) (0.0-0.2) X10*3/uL Abs Immat Gran (auto) (0.00-0.03) X10*3/uL Absolute Neuts (auto) (2.0-8.3) x10*3/uL Absolute Nucleated RBC (0.0-0.012) X10*3/uL Nucleated RBC % (auto) (0.0-0.2) /100WBC VBG pH 7.42 (7.32-7.43) VBG pCO2 24 mmHg VBG pO2 120 mmHg VBG HCO3 15 L (22-26) mmol/L VBG O2 Saturation 99.0 % VBG Base Excess -6.7 mmol/L Sodium 136 (135-145) mmol/L Potassium 4.3 D (3.3-5.1) mmol/L Chloride 103 (96-108) mmol/L Carbon Dioxide 15 L (22-29) mmol/L Anion Gap 22 H (12-20) BUN 57 H (9-16) mg/dL Creatinine 7.26 H* (0.5-1.4) mg/dL Estim Creat Clear Calc 13.2 Estimated GFR 8 POC Glucose (60-115) mg/dL Random Glucose 452 H* (60-115) mg/dL Lactic Acid (0.5-2.0) mmol/L Calcium 8.5 D (8.4-10.2) mg/dL Magnesium (1.6-2.6) mg/dL Total Bilirubin (0.0-1.0) mg/dL AST (5-37) U/L ALT (0-40) U/L Alkaline Phosphatase (39-117) U/L Total Protein (6.5-8.0) g/dL Albumin (3.5-5.0) g/dL Lipase (8-78) U/L Beta-Hydroxybutyrate (0.02-0.27) mmol/L Critical Care Time Critical Care Time Critical Care Time: Yes Total Critical Care Time: 55 Attestation: Total critical care time: Approximately?55 minutes Due to a high probability of clinically significant, life threatening deterioration, the patient required my highest level of preparedness to intervene emergently and I personally spent this critical care time directly and personally managing the patient. This critical care time included obtaining a history; examining the patient; pulse oximetry; ordering and review of studies; arranging urgent treatment with development of a management plan; evaluation of patient's response to treatment; frequent reassessment; and, discussions with other providers. This critical care time was performed to assess and manage the high probability of imminent, life-threatening deterioration that could result in multi-organ failure. It was exclusive of separately billable procedures and treating other patients Discharge Plan Discharge Clinical Impression: DKA (diabetic ketoacidosis) Qualifiers: Diabetes mellitus type: type 1 Diabetes mellitus complication detail: without coma Qualified Code(s): E10.10 - Type 1 diabetes mellitus with ketoacidosis without coma Patient Disposition: Admitted As Inpatient Print Language: Namibian
[2023-11-30] MEDS: 0.9 % Sodium Chloride 1,000 ML 999 ML IV ×3 (16:55→22:41)
[2023-11-30] MEDS: Metoclopramide HCl 10 MG/2 ML VIAL IVPUSH (16:56)
[2023-11-30] MEDS: diphenhydrAMINE HCL 50 MG/ML VIAL IVPUSH (16:56)
[2023-11-30] MEDS: droPERidol 5 MG/2 ML VIAL 1.25 MG IVPUSH ×2 (16:56→21:26)
--- NOTE | 2023-11-30 17:59 | ECG_ITS ---
Test Reason : svt? Blood Pressure : / mmHG Vent. Rate : 147 BPM Atrial Rate : 147 BPM P-R Int : 120 ms QRS Dur : 086 ms QT Int : 350 ms P-R-T Axes : 063 073 055 degrees QTc Int : 547 ms Sinus tachycardia Poor data quality When compared with ECG of 30-NOV-2023 15:43, No significant changes seen Referred By: Kady Aargon Electronically Signed By:LESLIE GEIGER MD
[2023-11-30 18:17] VITALS: BP 188/85; PULSE 142; RESP 16; TEMP 37.1; O2SAT 98
[2023-11-30 18:39] LABS: Beta-Hydroxybutyrate 2.19 mmol/L (0.02-0.27)
[2023-11-30 18:54] LABS: Glucose, Whole Blood 397 mg/dL (60-115)
[2023-11-30 19:16] LABS: Venous Blood Gas Refer to POC result
[2023-11-30 19:17] LABS: VBG Base Excess -6.7 mmol/L; VBG HCO3 15 mmol/L (22-26); VBG pCO2 24 mmHg; VBG pH 7.42 (7.32-7.43); VBG pO2 120 mmHg
[2023-11-30 19:55] LABS: Anion Gap 22 (12-20); Blood Urea Nitrogen 57 mg/dL (9-16); Calcium 8.5 mg/dL (8.4-10.2); Carbon Dioxide 15 mmol/L (22-29); Chloride 103 mmol/L (96-108); Creatinine Clr Calc Pharmacy 13.2; Estimated Glomerular Filt Rate 8; Glucose Random 452 mg/dL (60-115); Potassium 4.3 mmol/L (3.3-5.1); Sodium 136 mmol/L (135-145)
--- NOTE | 2023-11-30 20:00 | PHA.MEDREC ---
Addendum entered by Thi Rogers RPh 11/30/23 20:21: reviewed by [facility]. Original Note: Pharmacy Consult ? Medication Reconciliation Pharmacy has completed the medication reconciliation Spoke to patient to confirm med list. Patient states he has and insulin pump he is only using Novolog up to 70 units daily. patient states he no longer takes Metoprolol succ 100 mg and doesn't have Baqsimi.
[2023-11-30] MEDS: Insulin Regular, Human 100 UNIT/ML 10 ML VIAL 10 UNIT IVPUSH (20:14)
[2023-11-30 20:20] VITALS: BP 156/71; PULSE 148; RESP 16; TEMP 37.1; O2SAT 98
[2023-11-30] MEDS: Insulin Glargine,Hum.rec.anlog 100 UNIT/ML 10 ML VIAL 10 UNIT SUBCUT (20:50)
[2023-11-30 21:16] LABS: Glucose, Whole Blood 411 mg/dL (60-115)
[2023-11-30 22:04] VITALS: BP 168/74; PULSE 148; RESP 16; TEMP 37.6; O2SAT 97
[2023-11-30 22:08] LABS: Glucose, Whole Blood 368 mg/dL (60-115)
--- NOTE | 2023-11-30 22:11 | PM.CCN ---
Critical Care Event Note Summary Date of Service: 11/30/23 Code activated: No Narrative: This case had a high probability of a clinically significant, sudden, or life threatening deterioration of this patient's condition which required my full and direct attention, intervention and personal management. Critical Care Time (minutes): 30 Comment: pt seen in the ER due to possible DKA. Patient is a Type 1 DM who uses a Novolog pump with auto administration of 10-15 units of Novolog prn per meal intake according to patient. Has hx P neuropathy, gastroparesis (last Bm this am), HTN. VSS 150/78; 126; 16; 96% RA on monitor Alert legaly blind, oriented x 3; NAD Heart Tachy 120's no MRG Lungs CTA Abd: + BS, soft, tender in the epigastrium area no rebound (had LLQ pain before) no now, no jerez's sign Ext no edema Labs reviewed pts Bicar 22 ph normal, BHB Acid 2.19 AG 17 got IVF but no insulin Recomended Reg Insulin IV and Lantus 10 unit sub q Consider dry CT abd pelvis CT to investigate reason of Abd complaints Hold K infussion until repeat labs for he is ESRD repeat POC Repeat BMP in 4 hours if BS and AG are elevated then consider Insulin gtt at 8u/hr; pOC q1h and BMP q4 h; but patient would have to be managed in the ER for now until bed capacity in the ICU allows otherwise if improved admit to Medicine 2300 pts AG now 23, bicarb 15, BS >350, insulin gtt started, will continue with it and IVF, PCO and BMP as above No ICU bed yet, in the mean time CT abd and pelvis wo contrast Case discussed with Dr Pitt and ER Total Critical Care Time 30 min
[2023-11-30 22:17] LABS: VBG Base Excess -8.8 mmol/L; VBG HCO3 13 mmol/L (22-26); VBG pCO2 21 mmHg; VBG pH 7.41 (7.32-7.43); VBG pO2 135 mmHg
[2023-11-30 22:17] LABS: Venous Blood Gas Refer to POC result
[2023-11-30 22:32] LABS: Anion Gap 23 (12-20); Blood Urea Nitrogen 60 mg/dL (9-16); Calcium 8.9 mg/dL (8.4-10.2); Carbon Dioxide 13 mmol/L (22-29); Chloride 104 mmol/L (96-108); Creatinine Clr Calc Pharmacy 12.6; Estimated Glomerular Filt Rate 8; Glucose Random 414 mg/dL (60-115); Potassium 4.1 mmol/L (3.3-5.1); Sodium 136 mmol/L (135-145)
[2023-11-30 22:36] VITALS: RESP 15
[2023-11-30] MEDS: Morphine Sulfate 2 MG/ML CARTRIDGE 1 MG IVPUSH (22:36)
[2023-11-30 23:25] LABS: Glucose, Whole Blood 349 mg/dL (60-115)
[2023-11-30] MEDS: Insulin Regular/NS 100 UNIT/100 ML PLAST..BAG 6 UNIT IVCONT (23:26)
[2023-12-01] VITALS (27 sets, daily range): BP systolic 130–201; BP diastolic 68–103; PULSE 85–149; RESP 14–103; TEMP 36.9–37.2; O2SAT 93–98
[2023-12-01 00:29] LABS: Glucose, Whole Blood 261 mg/dL (60-115)
--- NOTE | 2023-12-01 00:46 | PC.NURSE ---
Per Zach, ICU provider, run insulin drip at 4 units/hr continuous with Dextrose 5% LR 1 L at 100 mL/hr, do not follow DKA protocol, continue POC Q1H, report results of POC to Zach or ICU provider.
[2023-12-01] MEDS: Dextrose 5 % and Lactated Ring 1,000 ML 100 ML IVCONT (01:27)
[2023-12-01] MEDS: Metoprolol Tartrate 5 MG/5 ML VIAL IVPUSH (01:28)
[2023-12-01 01:31] LABS: Alanine Aminotransferase 16 U/L (0-40); Albumin Level 3.7 g/dL (3.5-5.0); Alkaline Phosphatase 71 U/L (39-117); Anion Gap 21 (12-20); Aspartate Amino Transferase 17 U/L (5-37); Bilirubin Total 0.4 mg/dL (0.0-1.0); Blood Urea Nitrogen 60 mg/dL (9-16); Calcium 8.5 mg/dL (8.4-10.2); Carbon Dioxide 14 mmol/L (22-29); Chloride 109 mmol/L (96-108); Creatinine Clr Calc Pharmacy 12.7; Estimated Glomerular Filt Rate 8; Glucose Random 253 mg/dL (60-115); Potassium 4.1 mmol/L (3.3-5.1); Sodium 140 mmol/L (135-145); Total Protein 6.8 g/dL (6.5-8.0)
[2023-12-01 01:36] LABS: Glucose, Whole Blood 201 mg/dL (60-115)
--- NOTE | 2023-12-01 01:42 | PC.NURSE ---
This RN reported to Zach, ICU provider POC 201, per MD continue insulin drip at 4 units/hr, repeat POC in 1 hour and report results to ICU provider.
[2023-12-01 02:30] LABS: Glucose, Whole Blood 176 mg/dL (60-115)
--- NOTE | 2023-12-01 02:30 | PC.NURSE ---
POC 176 reported to Zach, ICU provider, per MD decrease insulin drip to 3 units/hr, continue with POC checks Q1H.
--- NOTE | 2023-12-01 02:51 | P.HPCC_ITS ---
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 Patient had been in this hospital for DKA treatment a couple weeks ago.? Came back into the emergency room complaints of left lower quadrant pain, his last bowel movement was yesterday morning. His initial workup reveal a white count 7.3, H and H of 12.1 and 35.0.? Chemistries shows normal electrolytes with BUN of 55 and creatinine of 7 point 4 8, potassium 3.4.? Blood sugar 225 with a subsequent blood sugar of 397.? The patient received 2 L of IV fluids but no insulin was administered in the ER until about 6 hours after his initial encounter.? Initial beta hydroxybutyrate acid level was 2.19.? Anion gap of 17, initial blood gas was unremarkable.? Subsequently however patient's blood sugar continued to go up, he received Lantus 10 units x1, repeat blood sugar levels were above 350, bicarb when down and his anion gap went up to 23.? At this point the patient was started on a new insulin drip, he was managed in the ER for the was no beds in the ICU and now is being transferred to us for further care. Part of the workup a CT of the abdomen pelvis without contrast was ordered given that he had earlier complaints of left lower quadrant discomfort as well as epigastric discomfort during my evaluation.? This is reported as possible colitis (infectious, ischemic or c diff related.). Pt is still on insulin gtt at 3 u/hr and last BS was 168, will admit to ICU for further care. <AJITH Singer - Last Filed: 12/01/23 03:00> Review of Systems 2 Review of Systems: As above, otherwise the patient denies any prior history of strokes, cold intolerance, migraine headaches, head trauma, no eyes, ears or nose problems, no problems swallowing or with phonation, no thyroid disease, denies any history of chest pain, palpitations, coronary disease, cough, sputum production, pneumonia, bronchitis, COPD or emphysema, liver problems, immunocompromise state of any kind, no history of DVT or PE, leg edema, fractures or extremity surgeries all other review of systems were reviewed and they were all negative. <AJITH Singer - Last Filed: 12/01/23 03:00> [facility] Past Medical History Medical History: Medical History Hypertensive urgency CKD (chronic kidney disease) stage 4, GFR 15-29 ml/min Hypertensive nephrosclerosis Diabetic gastroparesis Pancreatitis Vitamin D deficiency Hypocalcemia Background diabetic retinopathy associated with type 2 diabetes mellitus Diabetes type 1, uncontrolled Hemangioma of liver Legally blind Acid reflux Sciatica Gastritis Polyneuropathy Essential hypertension Hyperlipidemia LDL goal <70 <AJITH Singer - Last Filed: 12/01/23 03:00> Family History Family History: Family History Father Diabetes mellitus Mother Diabetes mellitus Maternal Grandfather Diabetes mellitus Maternal Grandmother Diabetes mellitus <AJITH Singer - Last Filed: 12/01/23 03:00> Surgical History Surgical History: Surgical History Hx of endoscopy Hx of circumcision Hx of appendectomy Hx of eye surgery <AJITH Singer - Last Filed: 12/01/23 03:00> Social History Social History: Social History Household Members: Spouse Household Members Other:: and girlfriend Housing: House Do you presently have visiting nurse or other home services: Yes ([employer]) Alcohol intake: former Comment: refusing fall risk interventions. Patient Tobacco Use Status: Former Tobacco user Smoked in Last 30 Days: No Second Hand Smoke Exposure: No Use of substances other than those prescribed or required for medical reasons: Yes Substance Use Type: Marijuana Last Used Substance: Days (ago) Currently Displaying Signs/Symptoms of Drug Intoxication Withdrawal: No Any prior treatment program specific to substance use: No Have you been hit, kicked, punched, or otherwise hurt by someone within the past year? If so, by whom?: No Do you feel safe in your current relationship?: Yes Is there a partner from a previous relationship who is making you feel unsafe now?: No Are you made to feel afraid or neglected: No Advance Directives: Yes Advance Directives on File: Yes Advance Directives Date on File: 04/13/20 Do you have a plan to hurt others: No Plan Recently lost weight without trying: No Eating poorly because of decreased appetite: No Nutrition Risks: No Nutritional Risk Poor oral hygiene: No service: No Current occupational status: disabled <AJITH Singer - Last Filed: 12/01/23 03:00> Meds Allergies/Adverse reactions: Allergies Allergy/AdvReac Type Severity Reaction Status Date / Time losartan Allergy Gastrointestinal Verified 11/30/23 15:40 Upset valsartan AdvReac Unknown GI problems Verified 11/30/23 15:40 <AJITH Singer - Last Filed: 12/01/23 03:00> Active Medications: Current Medications Acetaminophen (Acetaminophen 325 Mg Tablet) 650 mg PO Q8H PRN PRN Reason: moderate pain Atorvastatin Calcium (Atorvastatin Calcium 80 Mg Tablet) 80 mg PO DAILY [facility] Calcitriol (Calcitriol 0.25 Mcg Capsule) 0.5 mcg PO DAILY [facility] Clonidine HCl (Clonidine Hcl 0.1 Mg Tablet) 0.1 mg PO BID [place]; Protocol Ezetimibe (Ezetimibe 10 Mg Tablet) 10 mg PO DAILY [facility] Gabapentin (Gabapentin 300 Mg Capsule) 300 mg PO BEDTIME [place] Hydralazine HCl (Hydralazine Hcl 50 Mg Tablet) 100 mg PO TID [place]; Protocol Dextrose (D10) 250 mls @ 750 mls/hr IV Q30M PRN PRN Reason: BG <70 Insulin Human Regular (Myxredlin) 100 unit in 100 mls @ 4 mls/hr IVCONT .Q24H [place]; Protocol Last Titration: 12/01/23 00:34 Dose: 4 unit/hr, 4 mls/hr Dextrose/Lactated Ringer's (D5lr) 1,000 mls @ 100 mls/hr IVCONT .Q10H [place] Last Admin: 12/01/23 01:27 Dose: 100 mls/hr Metoprolol Succinate (Metoprolol Succinate Er 100 Mg Tab.Er.24h) 100 mg PO DAILY [place]; Protocol Nifedipine (Nifedipine Er 60 Mg Tab.Er.24) 60 mg PO DAILY [place]; Protocol Nortriptyline HCl (Nortriptyline Hcl 25 Mg Capsule) 50 mg PO BEDTIME [place] Omeprazole (Omeprazole 40 Mg Capsule.Dr) 40 mg PO DAILY@0630 [place] Sevelamer Carbonate (Sevelamer Carbonate Tablet 800 Mg Tablet) 800 mg PO TIDWM [place] Tamsulosin HCl (Tamsulosin Hcl 0.4 Mg Capsule) 0.4 mg PO BEDTIME [place] <AJITH Singer - Last Filed: 12/01/23 03:00> Home medications: Home Medications ?Medication ?Instructions ?Recorded ?Confirmed ?Last Taken ?Type omeprazole 40 mg capsule,delayed 40 mg PO DAILY@0630 01/04/20 11/30/23 11/30/23 History release hydralazine 100 mg tablet 100 mg PO TID 05/13/22 11/30/23 11/30/23 History metoprolol succinate 100 mg 100 mg PO DAILY 02/10/23 11/30/23 11/30/23 History tablet,extended release 24 hr nortriptyline 50 mg capsule 50 mg PO BEDTIME 03/09/23 11/30/23 11/29/23 History tamsulosin 0.4 mg capsule 0.4 mg PO BEDTIME 08/04/23 11/30/23 11/29/23 History acetaminophen 500 mg tablet 500 mg PO Q8H PRN moderate pain 11/30/23 11/30/23 Unknown History ezetimibe 10 mg tablet 10 mg PO DAILY 11/30/23 11/30/23 11/30/23 History gabapentin 300 mg capsule 300 mg PO BEDTIME 11/30/23 11/30/23 11/29/23 History insulin aspart U-100 100 unit/mL 0 - 70 unit continuous 11/30/23 11/30/23 11/30/23 History subcutaneous solution subcutaneous infusion TID <AJITH Singer - Last Filed: 12/01/23 03:00> Physical Exam 2 Vital Signs: Vital Signs: Last Vital Signs Temp 99.0 F 12/01/23 00:24 Pulse 118 H 12/01/23 02:16 Resp 22 H 12/01/23 02:16 BP 164/78 H 12/01/23 00:24 Pulse Ox 96 12/01/23 02:16 O2 Del Method Room Air 12/01/23 02:16 BMI result Body Mass Index 25.8 <AJITH Singer - Last Filed: 12/01/23 03:00> General:? Alert oriented x3 no acute distress.? Speaking full sentences.? Speech is well articulated, thought process is coherent.? Following all commands. Skin:? Intact, no lesions, edema, erythema, clubbing or cyanosis.? No ulcers. HEENT:? Head is normocephalic, atraumatic, legally bind, Cardiac:? Tachycardic 140 beats per minute.? No murmurs, rubs, gallops. Pulmonary:? Clear to auscultation, no wheezes, rales or rhonchi. Abdomen:? Protuberant, positive bowel sounds in all 4 quadrants.? Soft, nontender to palpation although earlier he had discomfort over the epigastric area without any Pozo's sign.? No rebound, no guarding. Musculoskeletal:? Moving all 4 extremities upon request a major joints, there is no crepitus or tenderness.? The strength is 5/5 bilaterally and throughout all 4 extremities.? There is no leg edema , no calf tenderness , no leg asymmetry.? Gait not assessed at this point. Neurologic:? As above, no focal deficits noted. Vascular:? 2+ pulses upper and lower extremities distally. <AJITH Singer - Last Filed: 12/01/23 03:00> Results Labs CBC and Chem 7: 12/01/23 05:08 12/01/23 05:08 <AJITH Singer - Last Filed: 12/01/23 03:00> Labs: Laboratory Results - last 24 hr 11/30/23 11/30/23 11/30/23 15:44 15:50 18:44 MCV 86.5 MCH 30.0 MCHC 34.7 RDW 12.2 Plt Count 327 D MPV 9.7 Immature Gran % (Auto) 0.5 H Neut % (Auto) 84.5 H Lymph % (Auto) 9.4 L [place] % (Auto) 5.1 Eos % (Auto) 0.1 Baso % (Auto) 0.4 Lymph # (Auto) 1.1 L [place] # (Auto) 0.6 Eos # (Auto) 0.0 Baso # (Auto) 0.1 Abs Immat Gran (auto) 0.06 H Absolute Neuts (auto) 9.8 H Absolute Nucleated RBC 0.000 Nucleated RBC % (auto) 0.0 VBG pH VBG pCO2 VBG pO2 VBG HCO3 VBG O2 Saturation VBG Base Excess Anion Gap 17 Estim Creat Clear Calc 12.8 Estimated GFR 8 POC Glucose 210 H 397 H* Random Glucose 225 H Lactic Acid 1.1 Calcium 9.6 D Magnesium 2.0 Total Bilirubin 0.5 AST 17 ALT 16 Alkaline Phosphatase 70 Total Protein 7.2 Albumin 3.9 Lipase 52 Beta-Hydroxybutyrate 2.19 H 11/30/23 11/30/23 11/30/23 19:08 19:13 21:13 MCV MCH MCHC RDW Plt Count MPV Immature Gran % (Auto) Neut % (Auto) Lymph % (Auto) [place] % (Auto) Eos % (Auto) Baso % (Auto) Lymph # (Auto) [place] # (Auto) Eos # (Auto) Baso # (Auto) Abs Immat Gran (auto) Absolute Neuts (auto) Absolute Nucleated RBC Nucleated RBC % (auto) VBG pH 7.42 VBG pCO2 24 VBG pO2 120 VBG HCO3 15 L VBG O2 Saturation 99.0 VBG Base Excess -6.7 Anion Gap 22 H Estim Creat Clear Calc 13.2 Estimated GFR 8 POC Glucose 411 H* Random Glucose 452 H* Lactic Acid Calcium 8.5 D Magnesium Total Bilirubin AST ALT Alkaline Phosphatase Total Protein Albumin Lipase Beta-Hydroxybutyrate 11/30/23 11/30/23 11/30/23 21:43 22:04 22:12 MCV MCH MCHC RDW Plt Count MPV Immature Gran % (Auto) Neut % (Auto) Lymph % (Auto) [place] % (Auto) Eos % (Auto) Baso % (Auto) Lymph # (Auto) [place] # (Auto) Eos # (Auto) Baso # (Auto) Abs Immat Gran (auto) Absolute Neuts (auto) Absolute Nucleated RBC Nucleated RBC % (auto) VBG pH 7.41 VBG pCO2 21 VBG pO2 135 VBG HCO3 13 L VBG O2 Saturation 100.0 VBG Base Excess -8.8 Anion Gap 23 H Estim Creat Clear Calc 12.6 Estimated GFR 8 POC Glucose 368 H* Random Glucose 414 H* Lactic Acid Calcium 8.9 Magnesium Total Bilirubin AST ALT Alkaline Phosphatase Total Protein Albumin Lipase Beta-Hydroxybutyrate 11/30/23 12/01/23 12/01/23 23:21 00:26 01:10 MCV MCH MCHC RDW Plt Count MPV Immature Gran % (Auto) Neut % (Auto) Lymph % (Auto) [place] % (Auto) Eos % (Auto) Baso % (Auto) Lymph # (Auto) [place] # (Auto) Eos # (Auto) Baso # (Auto) Abs Immat Gran (auto) Absolute Neuts (auto) Absolute Nucleated RBC Nucleated RBC % (auto) VBG pH VBG pCO2 VBG pO2 VBG HCO3 VBG O2 Saturation VBG Base Excess Anion Gap 21 H Estim Creat Clear Calc 12.7 Estimated GFR 8 POC Glucose 349 H 261 H Random Glucose 253 H Lactic Acid Calcium 8.5 Magnesium Total Bilirubin 0.4 AST 17 ALT 16 Alkaline Phosphatase 71 Total Protein 6.8 Albumin 3.7 Lipase Beta-Hydroxybutyrate 12/01/23 12/01/23 01:32 02:26 MCV MCH MCHC RDW Plt Count MPV Immature Gran % (Auto) Neut % (Auto) Lymph % (Auto) [place] % (Auto) Eos % (Auto) Baso % (Auto) Lymph # (Auto) [place] # (Auto) Eos # (Auto) Baso # (Auto) Abs Immat Gran (auto) Absolute Neuts (auto) Absolute Nucleated RBC Nucleated RBC % (auto) VBG pH VBG pCO2 VBG pO2 VBG HCO3 VBG O2 Saturation VBG Base Excess Anion Gap Estim Creat Clear Calc Estimated GFR POC Glucose 201 H 176 H Random Glucose Lactic Acid Calcium Magnesium Total Bilirubin AST ALT Alkaline Phosphatase Total Protein Albumin Lipase Beta-Hydroxybutyrate <AJITH Singer - Last Filed: 12/01/23 03:00> Imaging Radiologist's Impressions: Impressions Abdomen/Pelvis CT 12/01/23 00:40 IMPRESSION: *Mild concentric segmental mural thickening of the distal transverse colon, splenic flexure and proximal descending colon similar findings present 11/19/2023. Findings could represent infectious or ischemic colitis. Findings could represent C. difficile colitis. Electronically signed by: Leonel Padilla MD 12/01/2023 02:35 AM EDT RP <AJITH Singer - Last Filed: 12/01/23 03:00> Assessment and Plan (1) DKA (diabetic ketoacidosis): Qualifiers: Diabetes mellitus complication detail: without coma D iabetes mellitus type: type 1 Qualified Code(s): E10.10 - Type 1 diabetes mellitus with ketoacidosis without coma <AJITH Singer - Last Filed: 12/01/23 03:00> Status: Acute <AJITH Singer - Last Filed: 12/01/23 03:00> ASSESSMENT : 1. Acute DKA on a type 1 diabetic 2. CKD5 not on dialysis 3. Diabetic neuropathy 4. Stable hypertension 5. Chronic gastroparesis 6. Reactive tachycardia 7. History of nausea and vomiting with questionable cyclic vomiting syndrome 8. Questionable colitis per CT changes only without fever, white count or diarrhea PLAN OF CARE: Admit to ICU, monitor vital signs, I's and O's, POC is every 1 hour, chemistry q.4 hours, replete potassium as needed being mindful that he is a dialysis patient.? Consult Nephrology, monitor for any signs of uremia or ongoing nausea, vomiting despite of DKA resolution, he does not have any mental status changes, lethargy, encephalopathy or pruritus, if any noted, or if potassium is elevated the patient may need dialysis but not at this point. ?Change IVF to D5LR once BS < 250; continue with IV fluids and insulin drip until the gap closes, which point we can resume long-acting insulin, the patient will now be on his pump while here. Resume home meds including BB. Antiemetics prn (avoid zofran due to ling QTc); use reglan renal dose. Patient does have some questionable colitis on CT, he is not febrile, his white count is not significantly elevated, lactic acid is normal, I do not think that we are dealing with ischemic bowel or any infectious colitis at this point.? We will monitor closely. GI PROPHYLAXIS:? IV Protonix DVT PROPHYLAXIS:? Pneumatic stockings while in bed and early ambulation Critical care time used for critical evaluation of this patient, diagnosis, treatment and coordination of care, review her records and documentation TOTAL CRITICAL CARE TIME? 90 MIN . discussion and coordination with consultants, completely separate from any procedures performed. Patient's care was discussed in detail with Dr. Pitt who is aware of all the above as well as the plan of care for this patient. <AJITH Singer - Last Filed: 12/01/23 03:00> ASSESSMENT : 1. Acute DKA on a type 1 diabetic 2. CKD5 not on dialysis 3. Diabetic neuropathy 4. Stable hypertension 5. Chronic gastroparesis 6. Reactive tachycardia 7. History of nausea and vomiting with questionable cyclic vomiting syndrome 8. Questionable colitis per CT changes only without fever, white count or diarrhea PLAN OF CARE: Admit to ICU, monitor vital signs, I's and O's, POC is every 1 hour, chemistry q.4 hours, replete potassium as needed being mindful that he is a dialysis patient.? Consult Nephrology, monitor for any signs of uremia or ongoing nausea, vomiting despite of DKA resolution, he does not have any mental status changes, lethargy, encephalopathy or pruritus, if any noted, or if potassium is elevated the patient may need dialysis but not at this point. ?Change IVF to D5LR once BS < 250; continue with IV fluids and insulin drip until the gap closes, which point we can resume long-acting insulin, the patient will now be on his pump while here. Resume home meds including BB. Antiemetics prn (avoid zofran due to ling QTc); use reglan renal dose. Patient does have some questionable colitis on CT, he is not febrile, his white count is not significantly elevated, lactic acid is normal, I do not think that we are dealing with ischemic bowel or any infectious colitis at this point.? We will monitor closely. The patient was continues on insulin drip and titrated with every hourly blood sugars, blood sugars are under control. A.m. BMP showing anion gap of 17, we will continue insulin for now if the next BMP shows anion gap further improving we will turn off the insulin drip and switch to subcutaneous insulin. Diet as tolerated. GI PROPHYLAXIS:? IV Protonix DVT PROPHYLAXIS:? Pneumatic stockings while in bed and early ambulation Critical care time used for critical evaluation of this patient, diagnosis, treatment and coordination of care, review her records and documentation TOTAL CRITICAL CARE TIME? 90 MIN . discussion and coordination with consultants, completely separate from any procedures performed. Patient's care was discussed in detail with Dr. Pitt who is aware of all the above as well as the plan of care for this patient. <Santosh Pitt MD - Last Filed: 12/01/23 08:23> Total time managing care of this patient today: 90 minutes. <AJITH Singer - Last Filed: 12/01/23 03:00>
[2023-12-01 03:32] LABS: Glucose, Whole Blood 172 mg/dL (60-115)
--- NOTE | 2023-12-01 03:32 | PC.NURSE ---
Per Zach, ED provider continue insulin drip at 3 units/hr.
[2023-12-01] MEDS: hydrALAZINE HCl 20 MG/ML VIAL 10 MG IVPUSH (04:13)
[2023-12-01 04:28] LABS: Glucose, Whole Blood 154 mg/dL (60-115)
[2023-12-01 05:25] LABS: VBG Base Excess -2.9 mmol/L; VBG HCO3 18 mmol/L (22-26); VBG pCO2 22 mmHg; VBG pH 7.51 (7.32-7.43); VBG pO2 111 mmHg
[2023-12-01 05:25] LABS: MANUAL DIFF FLAG NO
[2023-12-01 05:27] LABS: Basophils Percent Auto 0.3 % (0-2); Hematocrit 28.2 % (42.0-52.0); Hemoglobin 9.6 g/dl (14.0-18.0); Imm Gran Abs Auto 0.08 X10*3/uL (0.00-0.03); Imm Gran Pct Auto 0.6 % (0.0-0.4); Lymphocytes Absolute Auto 1.3 X10*3/uL (1.2-4.9); Lymphocytes Percent Auto 8.7 % (20-40); Mean Corpuscular Hemoglobin 29.8 pg (27.0-33.0); Mean Corpuscular Volume 87.6 fL (80.0-98.0); Mean Platelet Volume 9.5 fL (9.4-12.4); Monocytes Absolute Auto 1.2 X10*3/uL (0.1-1.2); Monocytes Percent Auto 7.9 % (2-11); Neutrophils Percent Auto 82.5 % (45-73); Platelet Count 328 X10*3/uL (160-400); Red Blood Count 3.22 X10*6/uL (4.60-5.80); Red Cell Distribution Width 12.7 % (11.0-16.0); White Blood Count 14.5 X10*3/uL (4.8-10.8)
[2023-12-01 05:35] LABS: Glucose, Whole Blood 122 mg/dL (60-115)
[2023-12-01 06:04] LABS: Alanine Aminotransferase 15 U/L (0-40); Albumin Level 3.5 g/dL (3.5-5.0); Alkaline Phosphatase 64 U/L (39-117); Anion Gap 17 (12-20); Aspartate Amino Transferase 18 U/L (5-37); Bilirubin Total 0.3 mg/dL (0.0-1.0); Blood Urea Nitrogen 59 mg/dL (9-16); Calcium 8.2 mg/dL (8.4-10.2); Carbon Dioxide 18 mmol/L (22-29); Chloride 110 mmol/L (96-108); Creatinine Clr Calc Pharmacy 13.4; Estimated Glomerular Filt Rate 9; Glucose Random 143 mg/dL (60-115); Phosphorus 2.4 mg/dL (2.7-4.5); Potassium 3.7 mmol/L (3.3-5.1); Sodium 141 mmol/L (135-145); Total Protein 6.3 g/dL (6.5-8.0)
[2023-12-01 06:16] LABS: Venous Blood Gas Refer to POC result
[2023-12-01 06:33] LABS: Glucose, Whole Blood 110 mg/dL (60-115)
[2023-12-01] MEDS: Metoclopramide HCl 10 MG/2 ML VIAL 5 MG IVPUSH (06:43)
[2023-12-01] MEDS: hydrALAZINE HCl 50 MG TABLET 100 MG PO ×3 (07:08→20:13)
[2023-12-01] MEDS: Atorvastatin Calcium 80 MG TABLET PO (07:08)
[2023-12-01] MEDS: cloNIDine HCL 0.1 MG TABLET PO ×2 (07:09→20:12)
[2023-12-01] MEDS: Metoprolol Succinate ER 100 MG TAB.ER.24H PO (07:09)
[2023-12-01] MEDS: Ezetimibe 10 MG TABLET PO (07:09)
[2023-12-01 07:45] LABS: Glucose, Whole Blood 104 mg/dL (60-115)
[2023-12-01] MEDS: NIFEdipine ER 60 MG TAB.ER.24 PO (08:40)
[2023-12-01] MEDS: calcitrioL 0.25 MCG CAPSULE 0.5 MCG PO (08:40)
[2023-12-01 08:46] LABS: Glucose, Whole Blood 101 mg/dL (60-115)
[2023-12-01 10:49] LABS: Alanine Aminotransferase 14 U/L (0-40); Albumin Level 3.1 g/dL (3.5-5.0); Alkaline Phosphatase 59 U/L (39-117); Anion Gap 13 (12-20); Aspartate Amino Transferase 16 U/L (5-37); Bilirubin Total 0.4 mg/dL (0.0-1.0); Blood Urea Nitrogen 53 mg/dL (9-16); Calcium 8.1 mg/dL (8.4-10.2); Carbon Dioxide 22 mmol/L (22-29); Chloride 109 mmol/L (96-108); Creatinine Clr Calc Pharmacy 14.2; Estimated Glomerular Filt Rate 9; Glucose Random 109 mg/dL (60-115); Potassium 3.6 mmol/L (3.3-5.1); Sodium 140 mmol/L (135-145); Total Protein 5.7 g/dL (6.5-8.0)
[2023-12-01 11:01] LABS: Glucose, Whole Blood 116 mg/dL (60-115)
[2023-12-01 11:01] LABS: Glucose, Whole Blood 107 mg/dL (60-115)
[2023-12-01 12:18] LABS: Glucose, Whole Blood 125 mg/dL (60-115)
--- NOTE | 2023-12-01 12:49 | PM.EVENT ---
Event Note Date of Service: 12/01/23 Event Note: ICU transfer, discussed with ICU attending. Treated for DKA Time Spent With Patient Time: Total time managing care of this patient today ____ minutes.
[2023-12-01] MEDS: Insulin Glargine,Hum.rec.anlog 100 UNIT/ML 10 ML VIAL 15 UNIT SUBCUT (13:06)
[2023-12-01 13:21] LABS: Glucose, Whole Blood 102 mg/dL (60-115)
[2023-12-01 14:09] LABS: Glucose, Whole Blood 114 mg/dL (60-115)
--- NOTE | 2023-12-01 15:17 | MHC.CM.PN ---
Met with pt to discuss d/c planning needs: pt resides w/spouse and family, has 35 hours/week of [employer] care and does not have barriers to obtaining health care. Pt uses an insulin pump and sees an stone paver 2x yearly for DM management. PCP is someone new from the [facility]. Pt denies needing diabetic teaching. Spouse to transport to home. CM to follow for changes in d/c needs.
[2023-12-01] MEDS: Sevelamer Carbonate Tablet 800 MG TABLET PO (16:08)
[2023-12-01 16:14] LABS: Glucose, Whole Blood 210 mg/dL (60-115)
[2023-12-01 16:14] LABS: Glucose, Whole Blood 193 mg/dL (60-115)
[2023-12-01] MEDS: Insulin Lispro 100 UNIT/ML 3 ML VIAL SUBCUT ×2 (16:15→20:51)
[2023-12-01] MEDS: Nortriptyline HCl 25 MG CAPSULE 50 MG PO (20:12)
[2023-12-01] MEDS: Tamsulosin HCL 0.4 MG CAPSULE PO (20:12)
[2023-12-01] MEDS: Gabapentin 300 MG CAPSULE PO (20:12)
[2023-12-01 20:47] LABS: Glucose, Whole Blood 202 mg/dL (60-115)
[2023-12-02 03:27] VITALS: BP 130/69; PULSE 82; RESP 16; TEMP 37; O2SAT 96
[2023-12-02 03:31] VITALS: RESP 16
[2023-12-02] MEDS: Omeprazole 40 MG CAPSULE.DR PO (05:35)
[2023-12-02] MEDS: traMADoL HCL 50 MG TABLET 25 MG PO (06:30)
[2023-12-02 07:00] LABS: Hematocrit 29.8 % (42.0-52.0); Hemoglobin 10.1 g/dl (14.0-18.0); Mean Corpuscular HGB Conc 33.9 g/dl (31.0-36.0); Mean Corpuscular Volume 88.4 fL (80.0-98.0); Mean Platelet Volume 9.8 fL (9.4-12.4); Platelet Count 327 X10*3/uL (160-400); Red Blood Count 3.37 X10*6/uL (4.60-5.80); Red Cell Distribution Width 12.8 % (11.0-16.0)
[2023-12-02 07:25] LABS: Anion Gap 13 (12-20); Blood Urea Nitrogen 45 mg/dL (9-16); Carbon Dioxide 21 mmol/L (22-29); Chloride 110 mmol/L (96-108); Estimated Glomerular Filt Rate 10; Glucose Random 123 mg/dL (60-115); Potassium 3.5 mmol/L (3.3-5.1); Sodium 140 mmol/L (135-145)
[2023-12-02 07:38] LABS: Glucose, Whole Blood 144 mg/dL (60-115)
[2023-12-02 07:57] VITALS: BP 165/83; PULSE 93; RESP 18; TEMP 36.4; O2SAT 95
[2023-12-02] MEDS: NIFEdipine ER 60 MG TAB.ER.24 PO (08:01)
[2023-12-02] MEDS: Ezetimibe 10 MG TABLET PO (08:01)
[2023-12-02] MEDS: Insulin Glargine,Hum.rec.anlog 100 UNIT/ML 10 ML VIAL 15 UNIT SUBCUT (08:01)
[2023-12-02] MEDS: cloNIDine HCL 0.1 MG TABLET PO (08:01)
[2023-12-02] MEDS: calcitrioL 0.25 MCG CAPSULE 0.5 MCG PO (08:01)
[2023-12-02] MEDS: Atorvastatin Calcium 80 MG TABLET PO (08:01)
[2023-12-02] MEDS: Sevelamer Carbonate Tablet 800 MG TABLET PO (08:01)
[2023-12-02] MEDS: hydrALAZINE HCl 50 MG TABLET 100 MG PO (08:01)
--- NOTE | 2023-12-02 09:17 | P.DS_ITS ---
DS: Providers Provider Date of Service: 12/02/23 Date of admission: 12/01/23 02:43 Primary care physician: Hong Rodríguez MD DS: Diagnosis Discharge Diagnosis (1) DKA (diabetic ketoacidosis): Status: Acute DS: Summary Hospital Course Hospital Course: History and physical as per admitting provider. The patient is a 38-year-old male with underlying history of type 1 diabetics, diabetic nephropathy leading to CKD 5 not on hemodialysis, peripheral neuropathy, gastroparesis, recurrent nausea and vomiting and possibly cyclic vomiting syndrome as he uses marijuana daily, ??hypertension among other things.? Patient had been in this hospital for DKA treatment a couple weeks ago.? Came back into the emergency room complaints of left lower quadrant pain, his last bowel movement was yesterday morning. His initial workup reveal a white count 7.3, H and H of 12.1 and 35.0.? Chemistries shows normal electrolytes with BUN of 55 and creatinine of 7 point 4 8, potassium 3.4.? Blood sugar 225 with a subsequent blood sugar of 397.? The patient received 2 L of IV fluids but no insulin was administered in the ER until about 6 hours after his initial encounter.? Initial beta hydroxybutyrate acid level was 2.19.? Anion gap of 17, initial blood gas was unremarkable.? Subsequently however patient's blood sugar continued to go up, he received Lantus 10 units x1, repeat blood sugar levels were above 350, bicarb when down and his anion gap went up to 23.? At this point the patient was started on a new insulin drip, he was managed in the ER for the was no beds in the ICU and now is being transferred to us for further care. Part of the workup a CT of the abdomen pelvis without contrast was ordered given that he had earlier complaints of left lower quadrant discomfort as well as epigastric discomfort during my evaluation.? This is reported as possible colitis (infectious, ischemic or c diff related.). Pt is still on insulin gtt at 3 u/hr and last BS was 168, will admit to ICU for further care. 38-year-old man treated for diabetic ketoacidosis, admitted to the ICU on an insulin drip. He had normal electrolytes with an anion gap of 23 and unremarkable ABGs. After treatment with IV insulin and insulin drip blood sugar decreased within normal limits and anion gap closed. He also had some complaints of abdominal pain with a history of diabetic gastroparesis, abdominal CT initially showed possibly colitis but patient had no bloody stool or infectious signs. Today patient has labs within normal limits for him, able to eat and drink without any abdominal pain. Plan is to discharge home to continue all of his normal medications. Time Attestation Discharge Coordination Time (in mins): 35 Quality: Safe Use of Opioids Does Pt have an Active Cancer Diagnosis on the Problem List?: No Quality: Stroke Does the patient have a stroke diagnosis?: No Physical Exam Vital Signs: Vital Signs: Last Vital Signs Temp 97.6 F 12/02/23 07:57 Pulse 93 12/02/23 07:57 Resp 18 12/02/23 07:57 BP 165/83 H 12/02/23 07:57 Pulse Ox 95 12/02/23 07:57 O2 Del Method Room Air 12/02/23 07:57 BMI result Body Mass Index 25.8 Appearing in no acute distress head is normocephalic atraumatic eyes pupils are PERRLA sclera is anicteric mouth throat mucous membranes are intact and moist neck is supple no lymphadenopathy, no JVD noted lung sounds are clear to auscultation heart regular rate rhythm, clear S1, S2 positive bowel sounds, abdomen is soft, nontender neuro patient is alert x3, no focal deficits DS: Data Data Completed and Pending Completed studies during hospitalization [Text1]: Procedures Insertion of Endotracheal Airway into Trachea, Via Natural or Artificial Opening Endoscopic (07/29/21) Insertion of Infusion Device into Superior Vena Cava, Percutaneous Approach (07/29/21) Introduction of Vasopressor into Peripheral Vein, Percutaneous Approach (07/29/21) Respiratory Ventilation, Greater than 96 Consecutive Hours (07/29/21) Ultrasonography of Superior Vena Cava, Guidance (07/29/21) Labs on day of discharge: Laboratory Results - last 24 hr 12/01/23 12/01/23 12/01/23 09:44 10: 10:58 WBC RBC Hgb Hct MCV MCH MCHC RDW Plt Count MPV Absolute Nucleated RBC Nucleated RBC % (auto) Sodium 140 Potassium 3.6 Chloride 109 H Carbon Dioxide 22 Anion Gap 13 BUN 53 H Creatinine 6.73 H* Estim Creat Clear Calc 14.2 Estimated GFR 9 POC Glucose 107 116 H Random Glucose 109 Calcium 8.1 L Total Bilirubin 0.4 AST 16 ALT 14 Alkaline Phosphatase 59 Total Protein 5.7 L Albumin 3.1 L 12/01/23 12/01/23 12/01/23 12:13 13:17 14:06 WBC RBC Hgb Hct MCV MCH MCHC RDW Plt Count MPV Absolute Nucleated RBC Nucleated RBC % (auto) Sodium Potassium Chloride Carbon Dioxide Anion Gap BUN Creatinine Estim Creat Clear Calc Estimated GFR POC Glucose 125 H 102 114 Random Glucose Calcium Total Bilirubin AST ALT Alkaline Phosphatase Total Protein Albumin 12/01/23 12/01/23 12/01/23 16:09 16:11 20:44 WBC RBC Hgb Hct MCV MCH MCHC RDW Plt Count MPV Absolute Nucleated RBC Nucleated RBC % (auto) Sodium Potassium Chloride Carbon Dioxide Anion Gap BUN Creatinine Estim Creat Clear Calc Estimated GFR POC Glucose 193 H 210 H 202 H Random Glucose Calcium Total Bilirubin AST ALT Alkaline Phosphatase Total Protein Albumin 12/02/23 12/02/23 05:38 07:26 WBC 12.0 H RBC 3.37 L Hgb 10.1 L Hct 29.8 L MCV 88.4 MCH 30.0 MCHC 33.9 RDW 12.8 Plt Count 327 MPV 9.8 Absolute Nucleated RBC 0.000 Nucleated RBC % (auto) 0.0 Sodium 140 Potassium 3.5 Chloride 110 H Carbon Dioxide 21 L Anion Gap 13 BUN 45 H Creatinine 6.38 H* Estim Creat Clear Calc 15.0 Estimated GFR 10 POC Glucose 144 H Random Glucose 123 H Calcium 8.0 L Total Bilirubin AST ALT Alkaline Phosphatase Total Protein Albumin Discharge Plan Discharge Anticipated Discharge Date/Time: 12/02/23 09:21 Patient Disposition: Home, Self-Care Discharge Diagnosis: Diabetic ketoacidosis Diabetic gastroparesis Referrals: Name,MD Hong [Primary Care Provider] - 1 Week Discharge Medications: New oxycodone 5 mg tablet 5 mg PO BID PRN (Reason: pain) Qty: 6 0RF Rx Instructions: Partial Fill upon patient request. Continued atorvastatin 80 mg tablet 80 mg PO DAILY Qty: 30 6RF (DME) Omnipod 5 G6 Intro Kit (Gen 5) Cartridge See Rx Instructions .Route Qty: 1 4RF Rx Instructions: As directed calcitriol 0.5 mcg capsule 0.5 mcg PO DAILY Qty: 90 3RF (DME) Omnipod 5 G6 Pods (Gen 5) Cartridge See Rx Instructions .ROUTE .COMPLEX Qty: 10 11RF Dose Instruction: CHANGE POD EVERY 72 HOURS DIRECTED Rx Instructions: CHANGE POD EVERY 72 HOURS DIRECTED clonidine HCl 0.1 mg Tablet 0.1 mg PO BID Qty: 60 0RF Protocol: Hold for SBP< HOLD for SBP < : 90 nifedipine [Procardia XL] 60 mg tablet extended release 24hr 60 mg PO DAILY Qty: 60 0RF sevelamer carbonate 800 mg Tablet 800 mg PO TIDWM Qty: 90 0RF metoprolol succinate 100 mg tablet extended release 24 hr 100 mg PO DAILY Rx Instructions: take with the 50mg acetaminophen 500 mg tablet 500 mg PO Q8H PRN (Reason: moderate pain) gabapentin 300 mg capsule 300 mg PO BEDTIME ezetimibe 10 mg tablet 10 mg PO DAILY insulin aspart U-100 100 unit/mL solution 0 - 70 unit continuous subcutaneous infusion TID omeprazole 40 mg capsule,delayed release(DR/EC) 40 mg PO DAILY@0630 hydralazine 100 mg tablet 100 mg PO TID nortriptyline 50 mg capsule 50 mg PO BEDTIME tamsulosin 0.4 mg capsule 0.4 mg PO BEDTIME (DME) pen needle, diabetic [BD Ultra-Fine Shannan Pen Needle] 32 gauge x 5/32 needle See Rx Instructions .ROUTE QID Qty: 100 3RF Rx Instructions: As directed prn pump failure up to 4 times daily (DME) Ketone Urine Test Strip See Rx Instructions .ROUTE .MEDSUPPLY Qty: 25 3RF Rx Instructions: Prn glucose over 250, nausea or vomiting, tid Discharge Orders: Discharge Order (Routine); Ordered 12/02/23 Ordered By: Stephie Mcdonough Diet: Advance to usual diet Activity on Discharge: As tolerated Stand Alone Forms: Patient Portal Discharge page Print Language: Togolese Care Plan Goals: Check blood sugars before meals and at bedtime, diabetic medications as prescribed Follow blood pressure results closely Health Concerns: Diabetic ketoacidosis Diabetic gastroparesis Plan of Treatment: Follow-up with primary care provider as needed Take all medications as prescribed Assessment: See discharge summary
--- NOTE | 2023-12-02 09:31 | MHC.CM.PN ---
DP: PT HAS BEEN MEDICALLY CLEARED FOR DC HOME, NO SERVICES. PT HAS OWN RIDE HOME.
== END 2023-12-02 11:20 | disposition home or self-care (01) | DRG 420 ==
LOC: HO.ED 18:52 → HO.ICU 12-01 02:47 → HO.S3 12-01 21:55
PROVIDERS: Admitting Provider Physician Assistant Medical; Emergency Provider Emergency Medicine; PCP Internal Medicine Geriatric Medicine; Visit Provider Nurse Practitioner Acute Care
DX: E10.10 Type 1 diabetes mellitus with ketoacidosis without coma (principal); I12.0 Hypertensive chronic kidney disease with stage 5 chronic kidney disease or end stage renal disease; E10.22 Type 1 diabetes mellitus with diabetic chronic kidney disease; E10.42 Type 1 diabetes mellitus with diabetic polyneuropathy; K31.84 Gastroparesis; K31.89 Other diseases of stomach and duodenum; E10.43 Type 1 diabetes mellitus with diabetic autonomic (poly)neuropathy; N18.5 Chronic kidney disease, stage 5; Z87.891 Personal history of nicotine dependence; H54.8 Legal blindness, as defined in USA; Z96.41 Presence of insulin pump (external) (internal); Z79.4 Long term (current) use of insulin; Z79.899 Other long term (current) drug therapy
CPT/HCPCS: 36415; 74176; 80048; 80053; 82010; 82803; 82947; 83605; 83690; 83735; 84100; 85025; 85027; 93005; 99285; J0360; J1200; J1790; J2270; J2765

== ENCOUNTER → 2023-11-30 15:41 | Outpatient (BNV) | payer MEDICAID, SELFPAY | PROVIDERS: Admitting Provider Physician Assistant Medical; Emergency Provider Emergency Medicine; Visit Provider Internal Medicine Cardiovascular Disease | DX: R00.0 Tachycardia, unspecified (principal) | CPT/HCPCS: 93010 ==

== ENCOUNTER → 2023-11-30 15:44 | Outpatient (BNV) | payer MEDICAID, SELFPAY | PROVIDERS: Emergency Provider Emergency Medicine; Visit Provider Physician Assistant Medical | DX: E10.10 Type 1 diabetes mellitus with ketoacidosis without coma (principal) | CPT/HCPCS: 99291 ==

== ENCOUNTER → 2023-12-01 02:43 | Outpatient (BNV) | payer MEDICAID, SELFPAY | PROVIDERS: Admitting Provider Physician Assistant Medical; Emergency Provider Emergency Medicine; Visit Provider Nurse Practitioner Acute Care | DX: E10.10 Type 1 diabetes mellitus with ketoacidosis without coma (principal) | CPT/HCPCS: 99239; 99499 ==

== ENCOUNTER 2023-12-03 15:04 | Outpatient (AMB) | payer MEDICAID, SELFPAY ==
--- NOTE | 2023-12-03 15:22 | HO.NEPHOV ---
Vital Signs 12/03/23 15:24 Weight 162 lb BP 132/82 Blood Pressure Location Rt brachial Position Sitting Pulse 79 Pulse Source Pulse Oximeter Pulse Oximetry (%) 98 Oxygen Delivery Method Room Air Intake Visit Reasons: CKD/ Conf Label Designer Required: Yes Label Designer Name: [id number] jermaine Allergies losartan Allergy (Verified 11/30/23 15:40) Gastrointestinal Upset valsartan Adverse Reaction (Unknown, Verified 11/30/23 15:40) GI problems Medication List - Last Reconciled 12/03/23 by Onur Bejarano MD acetaminophen 500 mg PO Q8H PRN acetone (urine) test (Ketone Urine Test strips) Prn glucose over 250, nausea or vomiting, tid atorvastatin 80 mg PO DAILY calcitriol 0.5 mcg PO DAILY clonidine HCl 0.1 mg See Protocol PO BID ezetimibe 10 mg PO DAILY hydralazine 100 mg PO TID insulin aspart U-100 0 - 70 units continuous subcutaneous infusion TID insulin pump cart,auto,BT-cntr (Omnipod 5 G6 Intro Kit (Gen 5) subcutaneous cartridge with controller) As directed insulin pump cart,automated,BT (Omnipod 5 G6 Pods (Gen 5) subcutaneous cartridge) CHANGE POD EVERY 72 HOURS DIRECTED metoprolol succinate ER 100 mg PO DAILY nifedipine ER (Procardia XL) 60 mg PO DAILY nortriptyline 50 mg PO BEDTIME omeprazole 40 mg PO DAILY@0630 oxycodone 5 mg PO BID PRN pen needle, diabetic (BD Ultra-Fine Shannan Pen Needle) As directed prn pump failure up to 4 times daily sevelamer carbonate 800 mg PO TIDWM tamsulosin 0.4 mg PO BEDTIME HPI Comments Details: 37-year-old man with type 1 diabetes mellitus and advanced CKD. He has underlying diabetic nephropathy. He was accompanied by his caregiver. Interpretation service was used. Today he has no new complaints. He is compliant with his medication. Blood sugar seems to be well controlled at home. Has AVF in left forearm- about 2 months old. Not mature yet Created by -VAscular on 06/14/23 12/03/23 Recently admitted with DKA and KAYODE Temp HD catheter was inserted and removed HD was not down Cr decreased from 12 to 6.5 mg/dL c/o burning sensation in both hands at night HE claims to have stopped using marijuana since discharge [facility] Medical History Hypertensive urgency CKD (chronic kidney disease) stage 4, GFR 15-29 ml/min Hypertensive nephrosclerosis Diabetic gastroparesis Pancreatitis Vitamin D deficiency Hypocalcemia Background diabetic retinopathy associated with type 2 diabetes mellitus Diabetes type 1, uncontrolled Hemangioma of liver Legally blind Acid reflux Sciatica Gastritis Polyneuropathy Essential hypertension Hyperlipidemia LDL goal <70 Surgical History Hx of endoscopy Hx of circumcision Hx of appendectomy Hx of eye surgery Family History Father Diabetes mellitus Mother Diabetes mellitus Maternal Grandfather Diabetes mellitus Maternal Grandmother Diabetes mellitus Social History Household Members: Spouse Household Members Other:: and girlfriend Housing: House Do you presently have visiting nurse or other home services: Yes ([employer]) Alcohol intake: former Comment: refusing fall risk interventions. Patient Tobacco Use Status: Former Tobacco user Second Hand Smoke Exposure: No Substance Use Type: Marijuana Advance Directives Date on File: 04/13/20 service: No Current occupational status: disabled Physical Exam Vital Signs: Last Vital Signs Pulse 79 12/03/23 15:24 BP 132/82 12/03/23 15:24 Pulse Ox 98 12/03/23 15:24 Oxygen Delivery Method Room Air 12/03/23 15:24 Results Reviewed Nephrology Results: Hgb 10.1 g/dl (14.0-18.0) L 12/02/23 WBC 12.0 X10*3/uL (4.8-10.8) H 12/02/23 Plt Count 327 X10*3/uL (160-400) 12/02/23 Sodium 140 mmol/L (135-145) 12/02/23 Potassium 3.5 mmol/L (3.3-5.1) 12/02/23 Chloride 110 mmol/L (96-108) H 12/02/23 Carbon Dioxide 21 mmol/L (22-29) L 12/02/23 BUN 45 mg/dL (9-16) H 10/09/24 Creatinine 6.38 mg/dL (0.5-1.4) H* 12/02/23 Calcium 8.0 mg/dL (8.4-10.2) L 12/02/23 Phosphorus 2.4 mg/dL (2.7-4.5) L 12/01/23 Urine Protein 300 (3+) mg/dL (Neg-Trace) H 11/19/23 Assessment & Plan Assessment & Plan (1) Diabetes type 1, uncontrolled: Code(s): E10.65 - Type 1 diabetes mellitus with hyperglycemia Category: Medical (2) 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 Renal function stable at baseline. No signs or symptoms of uremia. Fluid status is acceptable. Goal is to slow the portion disease. Current continue with current regimen. Maintain blood pressure less than 130/80 and A1c less than 7%. Continue to avoid nephrotoxic agents. He is being evaluated by [facility] transplant service for preemptive transplantation He has on the active list Resistant hypertension blood pressure well controlled I have encouraged him to stay on low-sodium diet. No changes were made. He is mild anemia no indication for Epogen yet. SHPT: On calcitriol AVFistula: Created on 06/05/23; Not ready for use. Needs revision before it can be accessed Burning sensation in hands Probably has diabetic neuropathy Will try Gabapentin 100 mg QHS Orders: Orders Basic Metabolic Panel 6 Weeks E10.22 - Type 1 diabetes mellitus with diabetic chronic kidney disease, N18.5 - Chronic kidney disease, stage 5 Parathyroid Hormone Intact 6 Weeks E10.22 - Type 1 diabetes mellitus with diabetic chronic kidney disease, N18.5 - Chronic kidney disease, stage 5 Phosphorus 6 Weeks E10.22 - Type 1 diabetes mellitus with diabetic chronic kidney disease, N18.5 - Chronic kidney disease, stage 5 Complete Blood Count Auto Diff 6 Weeks E10.22 - Type 1 diabetes mellitus with diabetic chronic kidney disease, N18.5 - Chronic kidney disease, stage 5 Medications: New gabapentin 100 mg PO BEDTIME 90 caps 0RF Discontinued sevelamer carbonate Discontinued Reason: Doctor's Order 800 mg PO TIDWM 90 tabs 0RF Coding Level of Care Code Est Pt Level 4 (79383) Diagnoses Uncontrolled type 1 diabetes mellitus with hyperglycemia E10.65 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 E10.22; N18.5
[2023-12-03 15:24] VITALS: BP 132/82; PULSE 79; O2SAT 98
== END 2023-12-03 15:47 | disposition home or self-care (01) ==
PROVIDERS: Visit Provider Internal Medicine Hypertension Specialist
DX: E10.22 Type 1 diabetes mellitus with diabetic chronic kidney disease (principal); N18.5 Chronic kidney disease, stage 5; E10.65 Type 1 diabetes mellitus with hyperglycemia
CPT/HCPCS: 99214

== ENCOUNTER → 2023-12-03 15:04 | Outpatient (BNVA) | payer MEDICAID, SELFPAY | PROVIDERS: Visit Provider Internal Medicine Hypertension Specialist | DX: E10.65 Type 1 diabetes mellitus with hyperglycemia (principal); E10.22 Type 1 diabetes mellitus with diabetic chronic kidney disease; N18.5 Chronic kidney disease, stage 5 | CPT/HCPCS: 99212 ==

== ENCOUNTER 2023-12-17 12:44 | Outpatient (AMB) | payer MEDICAID, SELFPAY ==
--- NOTE | 2023-12-17 07:47 | A.OFFVIS_ITS ---
Vital Signs 12/17/23 13:07 Height 5 ft 8 in Weight 160 lb 14.999 oz BMI 24.5 BP 130/80 Blood Pressure Location Rt brachial Position Sitting Pulse 95 Pulse Source Pulse Oximeter Intake Visit Reasons: T1DM/LVM Intake Note: Patient presents today for a follow-up on Type 1 Diabetes Mellitus: Last Diabetic eye exam was on: 05/2023 Last Podiatry exam was on: Does not see a Remote Sensing Research Scientist Most recent HbA1c: 6.6%, 11/20/2023 Random Glucose- 137 mg/dL, Today Applications Engineer Manufacturing Required: Yes Applications Engineer Manufacturing Language: Paragliding Instructor Services: Applications Engineer Manufacturing Present Applications Engineer Manufacturing Name: GIL Licona/LENARD MERCADO Information Interpreted: non-clinical & clinical Accompanied by: Self / Same As Patient Allergies losartan Allergy (Verified 11/30/23 15:40) Gastrointestinal Upset valsartan Adverse Reaction (Unknown, Verified 11/30/23 15:40) GI problems HPI Comments Details: Patient is a 38-year-old male with DM type 1 diagnosed at the age of 7 here for f/u management of diabetes. He is on an Omnipod 5 with a G6 sensor and would like to change to a G7. He is here today unaccompanied by his . Isaías Villegas used for interpretation. Patient did not receive prescription for ketones from his pharmacy that were sent in September. Has retinopathy: Legally blind in both eyes. Last eye examination: earlier this year. Per Has neuropathy on low dose gabapentin. Symptoms include, numbness, pain. Denies cramping in the lower extremity Has nephropathy: Followed by Dr. Bejarano He is being evaluated by [facility] transplant service for preemptive transplantation. He had a temporary HD access placed during a recent hospitalization which was discontinued. Kidney function remained stable He has on the active list. Has AVF in left forearm- approx 09/2023. Not mature yet Has HLD: On high dose atorvastatin and Zetia. Backup insulin pump plan 15-20 units of Lantus once daily in 5-6 units of Humalog t.i.d. with the meals. He has seen Dr. Prateek CAMACHO at [facility] [place] [facility] and was diagnosed with gastroparesis. He has b een to the ER several times with left upper quadrant abdominal pain and treated in the ER with Dilaudid. He currently has no pain and we will schedule an appointment with Dr. Chandra for evaluation. Dexcom average glucose: 149 14 day continuous glucose monitor report reviewed Glucose Managment indicator 6.9 % Days with CGM data 95 % TIme in ranges: One % very high (above 250) 18 % high ?(181-250) 80 % in range ?(70-180] 1 % low (69-55) 0 % ?very low (below 54) Interpretation [blood sugars well-controlled with some miles lows in the evening Total daily dose37.5 19.6 units 52% basal 117.8 48% bolus Basal rate(s) (units/hour) : ?12 AM to 7 AM 1.25 units/hr? 7 AM to 12 AM 1.0 units /hr Bolus setting Insulin Carbohydrate Ratio (s) 12 AM to 12 AM? 1 unit:11 carb gm? Correction Factor / Sensitivity Factor 12 AM to 12 AM? 1 unit / 60 mg/dL 12 AM to 7 AM??1 unit / 70 mg/dL 7 AM to 12 AM? 1 unit / 60 mg/dL Active Insulin Time:? 3 hours Target(s): 12 AM to 5 PM 120 mg/dL 5PM to 12AM 130 Exercise: does some walking PFSH Medical History Hypertensive urgency CKD (chronic kidney disease) stage 4, GFR 15-29 ml/min Hypertensive nephrosclerosis Diabetic gastroparesis Pancreatitis Vitamin D deficiency Hypocalcemia Background diabetic retinopathy associated with type 2 diabetes mellitus Diabetes type 1, uncontrolled Hemangioma of liver Legally blind Acid reflux Sciatica Gastritis Polyneuropathy Essential hypertension Hyperlipidemia LDL goal <70 Surgical History Hx of endoscopy Hx of circumcision Hx of appendectomy Hx of eye surgery Family History Father Diabetes mellitus Mother Diabetes mellitus Maternal Grandfather Diabetes mellitus Maternal Grandmother Diabetes mellitus Social History Household Members: Spouse Household Members Other:: and girlfriend Housing: House Do you presently have visiting nurse or other home services: Yes ([employer]) Alcohol intake: former Comment: refusing fall risk interventions. Patient Tobacco Use Status: Former Tobacco user Second Hand Smoke Exposure: No Substance Use Type: Marijuana Advance Directives Date on File: 04/13/20 service: No Current occupational status: disabled Physical Exam Vital Signs: Last Vital Signs Pulse 95 12/17/23 13:07 BP 130/80 12/17/23 13:07 BMI result Body Mass Index 24.5 Const Other: Absence of Cushingoid features. Absence of acromegalic features. Neck exam reveals nl size thyroid about 15 gms. No thyroid nodules palpable. Heart S1 S2, Reg R/R. No M/R G. abdominal exam benign no palpable masses or pain Skin exam reveals absence of vitiligo or acanthosis nigricans. No edema Visual exam of foot performed. No ulcerations or open lesions. No inter digit maceration or fissuring. No onychomycosis, no callouses. Sensation diminished to monofilament exam. Vibratory sensation is diminished with 128 Hz tuning fork. Results Reviewed Results Reviewed: Laboratory Last Values Glucose (Clinic) 137 mg/dL (60-115) H 12/17/23 13:11 Assessment & Plan Assessment & Plan (1) Diabetes type 1, uncontrolled: Code(s): E10.65 - Type 1 diabetes mellitus with hyperglycemia Category: Medical Plan: 38-year-old type 1 diabetic with a nephropathy followed by Nephrology, retinopathy legally blind, gastroparesis and neuropathy on an Omnipod insulin pu mp. Current pump load shows excellent control he has some lows in the evening. His evening target adjusted to 130. Today we extensively reviewed DKA. He was given Dr. Chandra's contact information to schedule an appointment. The patient had an opportunity to ask questions regarding treatment plan. The patient expressed understanding and agreement with the above treatment plan. The patient is aware they should contact our office by phone for worsening glucose readings or for any low blood sugars which may warrant a change in diabetes medication. Compliance is encouraged with medications and any followup testing/consults which may have been ordered. Medications: Refilled acetone (urine) test (Ketone Urine Test strips) Prn glucose over 250, nausea or vomiting, tid 25 ea 3RF E10.65 - Type 1 diabetes mellitus with hyperglycemia Patient Instructions: The patient was counseled to always carry a source of sugar and on the rule of 15's: Take 3 glucose tablets and repeat again in 15 minutes if blood sugar is not in normal range. Continue to repeat every 15 minutes until blood sugar is normal. Symptoms of DKA (diabetic ketoacidosis): early: frequent urination, dry mouth, fatigue, feeling ill, severe symptoms: ketones in the urine, abdominal pain, nausea, vomiting and weakness. It is important to hydrate with sugar free liquids every 15-30 minutes and bring the sugars down to normal levels. If you are moderate or severe with ketones or unable to bring glucose to less than 200, go to the emergency room. Troubleshooting after starting new pod or inserting new insulin set: Occlusion, adhesive tape sensitivity, redness Check BG 2 hours after site change Safety information: Importance of a backup plan, for manual injections, proper prescriptions and emergency supplies ketone strips, and rules for testing for ketones The patient was counseled to achieve a target A1C of 7% (154 avg). Fasting blood sugars should be 90-130 in the morning and less than 180 two hours after meals. Reviewed the relationship between poor diabetic control and the development of complications. Coding Level of Care Code Tele Est Pt Level 5 (82513) Complex EM visit Add On G2211 Diagnoses Uncontrolled type 1 diabetes mellitus with hyperglycemia E10.65 Time Spent (min) 45 Comment Time spent reviewing labs/provider notes, face to face, chart doc
[2023-12-17 13:07] VITALS: BP 130/80; PULSE 95; BMI 24.5
[2023-12-17 13:15] LABS: Glucose, Whole Blood 137 mg/dL (60-115)
== END 2023-12-17 14:06 | disposition home or self-care (01) ==
PROVIDERS: PCP Internal Medicine Geriatric Medicine; Visit Provider Nurse Practitioner Adult Health
DX: E10.65 Type 1 diabetes mellitus with hyperglycemia (principal)
CPT/HCPCS: 99215

== ENCOUNTER → 2023-12-17 12:44 | Outpatient (BNVA) | payer MEDICAID, SELFPAY | PROVIDERS: PCP Internal Medicine Geriatric Medicine; Visit Provider Nurse Practitioner Adult Health | DX: E10.65 Type 1 diabetes mellitus with hyperglycemia (principal); E10.319 Type 1 diabetes mellitus with unspecified diabetic retinopathy without macular edema; H54.8 Legal blindness, as defined in USA; Z46.81 Encounter for fitting and adjustment of insulin pump; Z79.4 Long term (current) use of insulin | CPT/HCPCS: 82947 ==

== ENCOUNTER 2024-01-07 15:11 | Outpatient (AMB) | payer MEDICAID, SELFPAY ==
--- NOTE | 2024-01-07 15:59 | A.OFFVIS_ITS ---
Intake Intake Visit Reasons: [id number] Manual Arts Teacher Required: Yes Manual Arts Teacher Language: Adventure Challenge Instructor Name: [id number] Information Interpreted: non-clinical & clinical Accompanied by: Spouse Allergies losartan Allergy (Verified 11/30/23 15:40) Gastrointestinal Upset valsartan Adverse Reaction (Unknown, Verified 11/30/23 15:40) GI problems HPI Comprehensive Diabetes Asmnt Most Recent Diabetes Results: Creatinine 6.38 mg/dL (0.5-1.4) H* 12/02/23 Blood Urea Nitrogen 45 mg/dL (9-16) H 12/02/23 Sodium 140 mmol/L (135-145) 12/02/23 Potassium 3.5 mmol/L (3.3-5.1) 12/02/23 Chloride 110 mmol/L (96-108) H 12/02/23 Carbon Dioxide 21 mmol/L (22-29) L 12/02/23 Calcium 8.0 mg/dL (8.4-10.2) L 12/02/23 AST 16 U/L (5-37) 12/01/23 ALT 14 U/L (0-40) 12/01/23 Total Protein 5.7 g/dL (6.5-8.0) L 12/01/23 Albumin 3.1 g/dL (3.5-5.0) L 12/01/23 [facility] Medical History Hypertensive urgency CKD (chronic kidney disease) stage 4, GFR 15-29 ml/min Hypertensive nephrosclerosis Diabetic gastroparesis Pancreatitis Vitamin D deficiency Hypocalcemia Background diabetic retinopathy associated with type 2 diabetes mellitus Diabetes type 1, uncontrolled Hemangioma of liver Legally blind Acid reflux Sciatica Gastritis Polyneuropathy Essential hypertension Hyperlipidemia LDL goal <70 Surgical History Hx of endoscopy Hx of circumcision Hx of appendectomy Hx of eye surgery Family History Father Diabetes mellitus Mother Diabetes mellitus Maternal Grandfather Diabetes mellitus Maternal Grandmother Diabetes mellitus Social History Household Members: Spouse Household Members Other:: and girlfriend Housing: House Do you presently have 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 Patient Tobacco Use Status: Former Tobacco user Second Hand Smoke Exposure: No Substance Use Type: Marijuana Advance Directives Date on File: 04/13/20 service: No Current occupational status: disabled Assessment & Plan Assessment & Plan (1) Diabetes type 1, uncontrolled: Code(s): E10.65 - Type 1 diabetes mellitus with hyperglycemia Plan: Patient presents for pump training for Omnipod 5 pump and CGM training today. Pt Omnipod user name: [email or web address] Patient at visit today to upgrade from Dexcom G6 to Dexcom G7 CGM ? Low alert:? 80 mg/dL High alert:? 180 mg/dL ?reviewed patient's Dexcom data ?patient above target 21% ?patient at target 78% ?patient below target 1% ?patient's average glucose for the past 2 weeks 156 mg/dL Downloaded Dexcom G7 manjit to patient's cellphone, connected Dexcom G7 sensor to patient's cellphone, then reviewed how to connect Dexcom G7 to Omnipod Reminded patient it is important to put sensor and pods on the same side of the body for optimal connectivity Patient left visit today with Dexcom G7 sensor connected to Omnipod 5 Patient understands the basic concepts of pump therapy, how to give insulin for meals and snacks, how to troubleshoot for hyper and hypoglycemia. No changes to settings at today's visit Basal rate(s) (units/hour) : ?12 AM to 7 AM 1.25 units/hr? 7 AM to 12 AM 1.0 units /hr Bolus setting Insulin Carbohydrate Ratio (s) 12 AM to 12 AM? 1 unit:11gm? Correction Factor / Sensitivity Factor 12 AM to 12 AM? 1 unit / 60 mg/dL 12 AM to 7 AM??1 unit / 70 mg/dL 7 AM to 12 AM? 1 unit / 60 mg/dL Active Insulin Time:? 3 hours Target(s): 12 AM to 12 AM 120 mg/dL Patient Instructions: Patient will contact special education paraeducator with questions or concerns Patient will follow-up as needed Coding Level of Care Code Est Pt Level 1 (41679) Diagnoses Uncontrolled type 1 diabetes mellitus with hyperglycemia E10.65
== END 2024-01-07 16:01 | disposition home or self-care (01) ==
PROVIDERS: PCP Internal Medicine Geriatric Medicine; Visit Provider Registered Nurse Diabetes Educator
DX: E10.65 Type 1 diabetes mellitus with hyperglycemia (principal)

== ENCOUNTER → 2024-01-07 15:11 | Outpatient (BNVA) | payer MEDICAID, SELFPAY | PROVIDERS: PCP Internal Medicine Geriatric Medicine; Visit Provider Registered Nurse Diabetes Educator | DX: E10.65 Type 1 diabetes mellitus with hyperglycemia (principal); N18.4 Chronic kidney disease, stage 4 (severe) | CPT/HCPCS: 99211 ==

== ENCOUNTER 2024-01-08 07:51 | Outpatient (REF) | payer MEDICAID, SELFPAY ==
[2024-01-08 08:47] LABS: Basophils Percent Auto 0.4 % (0-2); Eosinophils Absolute Auto 0.2 X10*3/uL (0.0-0.4); Eosinophils Percent Auto 2.9 % (0-4); Hematocrit 34.8 % (42.0-52.0); Hemoglobin 11.9 g/dl (14.0-18.0); Imm Gran Abs Auto 0.02 X10*3/uL (0.00-0.03); Imm Gran Pct Auto 0.3 % (0.0-0.4); MANUAL DIFF FLAG NO; Mean Corpuscular HGB Conc 34.2 g/dl (31.0-36.0); Mean Corpuscular Hemoglobin 30.2 pg (27.0-33.0); Mean Corpuscular Volume 88.3 fL (80.0-98.0); Mean Platelet Volume 9.5 fL (9.4-12.4); Monocytes Absolute Auto 0.6 X10*3/uL (0.1-1.2); Monocytes Percent Auto 9.3 % (2-11); Neutrophils Percent Auto 58.1 % (45-73); Platelet Count 258 X10*3/uL (160-400); Red Blood Count 3.94 X10*6/uL (4.60-5.80); Red Cell Distribution Width 11.8 % (11.0-16.0); White Blood Count 6.9 X10*3/uL (4.8-10.8)
[2024-01-08 09:31] LABS: Anion Gap 13 (12-20); Blood Urea Nitrogen 65 mg/dL (9-16); Calcium 9.3 mg/dL (8.4-10.2); Carbon Dioxide 26 mmol/L (22-29); Chloride 103 mmol/L (96-108); Cholesterol 136 mg/dL (<200); Glucose Random 169 mg/dL (60-115); HDL Cholesterol 40 mg/dL (>40); LDL Cholesterol Calculated 71 mg/dL (<100); Phosphorus 5.6 mg/dL (2.7-4.5); Potassium 4.6 mmol/L (3.3-5.1); Sodium 137 mmol/L (135-145); Triglycerides 127 mg/dL (<150)
[2024-01-08 09:35] LABS: Parathyroid Hormone Intact 83.1 pg/mL (8.7-77.1)
[2024-01-08 09:37] LABS: Estimated Glomerular Filt Rate 8
== END 2024-01-08 07:52 | disposition home or self-care (01) ==
LOC: HO.LAB 07:51
PROVIDERS: PCP Internal Medicine Geriatric Medicine; Visit Provider Internal Medicine Hypertension Specialist
DX: E10.22 Type 1 diabetes mellitus with diabetic chronic kidney disease (principal); N18.5 Chronic kidney disease, stage 5; E10.69 Type 1 diabetes mellitus with other specified complication
CPT/HCPCS: 36415; 80048; 80061; 83970; 84100; 85025

== ENCOUNTER 2024-01-11 14:13 | Outpatient (AMB) | payer MEDICAID, SELFPAY ==
[2024-01-11 14:25] VITALS: BP 102/64; PULSE 82; O2SAT 97; BMI 23.6
--- NOTE | 2024-01-11 14:25 | HO.NEPHOV_ITS ---
Vital Signs 01/11/24 14:25 Height 5 ft 8 in Weight 155 lb BMI 23.6 BP 102/64 Blood Pressure Location Lt brachial Position Sitting Pulse 82 Pulse Source Pulse Oximeter Pulse Oximetry (%) 97 Oxygen Delivery Method Room Air Intake Visit Reasons: CKD/LVM Underwriter Mortgage Loan Required: Yes Underwriter Mortgage Loan Name: [id number] tomasz Accompanied by: Spouse Allergies losartan Allergy (Verified 01/11/24 14:27) Gastrointestinal Upset valsartan Adverse Reaction (Unknown, Verified 01/11/24 14:27) GI problems Medication List - Last Reconciled 01/11/24 by Onur Bejarano MD acetaminophen 500 mg PO Q8H PRN acetone (urine) test (Ketone Urine Test strips) Prn glucose over 250, nausea or vomiting, tid atorvastatin 80 mg PO DAILY calcitriol 0.5 mcg PO DAILY clonidine HCl 0.1 mg See Protocol PO BID ezetimibe 10 mg PO DAILY gabapentin 100 mg PO BEDTIME hydralazine 100 mg PO TID insulin aspart U-100 up to 70 units daily via insulin pump via continuous subcutaneous infusion daily; 30 days insulin pump cart,auto,BT-cntr (Omnipod 5 G6 Intro Kit (Gen 5) subcutaneous cartridge with controller) As directed insulin pump cart,automated,BT (Omnipod 5 G6 Pods (Gen 5) subcutaneous cartridge) CHANGE POD EVERY 72 HOURS DIRECTED metoprolol succinate ER 100 mg PO DAILY nifedipine ER (Procardia XL) 60 mg PO DAILY nortriptyline 50 mg PO BEDTIME omeprazole 40 mg PO DAILY@0630 oxycodone 5 mg PO BID PRN pen needle, diabetic (BD Ultra-Fine Shannan Pen Needle) As directed prn pump failure up to 4 times daily tamsulosin 0.4 mg PO BEDTIME HPI Comments Details: 37-year-old man with type 1 diabetes mellitus and advanced CKD. He has underlying diabetic nephropathy. He was accompanied by his caregiver. Interpretation service was used. Today he has no new complaints. He is compliant with his medication. Blood sugar seems to be well controlled at home. Has AVF in left forearm- about 2 months old. Not mature yet Created by -VAscular on 06/14/23 12/03/23 Recently admitted with DKA and KAYODE Temp HD catheter was inserted and removed HD was not down Cr decreased from 12 to 6.5 mg/dL c/o burning sensation in both hands at night HE claims to have stopped using marijuana since discharge 01/11/2024 Home blood pressure readings are rather low [facility] Medical History Hypertensive urgency CKD (chronic kidney disease) stage 4, GFR 15-29 ml/min Hypertensive nephrosclerosis Diabetic gastroparesis Pancreatitis Vitamin D deficiency Hypocalcemia Background diabetic retinopathy associated with type 2 diabetes mellitus Diabetes type 1, uncontrolled Hemangioma of liver Legally blind Acid reflux Sciatica Gastritis Polyneuropathy Essential hypertension Hyperlipidemia LDL goal <70 Surgical History Hx of endoscopy Hx of circumcision Hx of appendectomy Hx of eye surgery Family History Father Diabetes mellitus Mother Diabetes mellitus Maternal Grandfather Diabetes mellitus Maternal Grandmother Diabetes mellitus Social History Household Members: Spouse Household Members Other:: and girlfriend Housing: House 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 Patient Tobacco Use Status: Former Tobacco user Second Hand Smoke Exposure: No Substance Use Type: Marijuana Advance Directives Date on File: 04/13/20 service: No Current occupational status: disabled Physical Exam Vital Signs: Last Vital Signs Pulse 82 01/11/24 14:25 BP 102/64 01/11/24 14:25 Pulse Ox 97 01/11/24 14:25 Oxygen Delivery Method Room Air 01/11/24 14:25 BMI result Body Mass Index 23.6 Results Reviewed Nephrology Results: Hgb 11.9 g/dl (14.0-18.0) L 01/08/24 WBC 6.9 X10*3/uL (4.8-10.8) 01/08/24 Plt Count 258 X10*3/uL (160-400) 01/08/24 Sodium 137 mmol/L (135-145) 01/08/24 Potassium 4.6 mmol/L (3.3-5.1) 01/08/24 Chloride 103 mmol/L (96-108) 01/08/24 Carbon Dioxide 26 mmol/L (22-29) 01/08/24 BUN 65 mg/dL (9-16) H 01/08/24 Creatinine 7.30 mg/dL (0.5-1.4) H* 01/08/24 Calcium 9.3 mg/dL (8.4-10.2) 01/08/24 Phosphorus 5.6 mg/dL (2.7-4.5) H 01/08/24 PTH Intact 83.1 pg/mL (8.7-77.1) H 01/08/24 Assessment & Plan Assessment & Plan (1) Diabetes type 1, uncontrolled: Code(s): E10.65 - Type 1 diabetes mellitus with hyperglycemia Category: Medical (2) 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 Renal function stable at baseline. No signs or symptoms of uremia. Fluid status is acceptable. Goal is to slow the portion disease. Current continue with current regimen. Maintain blood pressure less than 130/80 and A1c less than 7%. Continue to avoid nephrotoxic agents. He is being evaluated by [facility] transplant service for preemptive transplantation He has on the active list Resistant hypertension blood pressure well controlled I have encouraged him to stay on low-sodium diet. No changes were made. He is mild anemia no indication for Epogen yet. SHPT: On calcitriol AVFistula: Created on 06/05/23; Not ready for use. Needs revision before it can be accessed Burning sensation in hands Probably has diabetic neuropathy Will try Gabapentin 100 mg QHS 01/11/2024 Change clonidine to 0.1 mg p.r.n. and administer if systolic blood pressure more than 140 mm Hg at home. No signs or symptoms of uremia. No absolute indication for dialysis yet. 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
== END 2024-01-11 14:39 | disposition home or self-care (01) ==
PROVIDERS: Visit Provider Internal Medicine Hypertension Specialist
DX: E10.65 Type 1 diabetes mellitus with hyperglycemia (principal); E10.22 Type 1 diabetes mellitus with diabetic chronic kidney disease; N18.5 Chronic kidney disease, stage 5
CPT/HCPCS: 99214

== ENCOUNTER → 2024-01-11 14:13 | Outpatient (BNVA) | payer MEDICAID, SELFPAY | PROVIDERS: Visit Provider Internal Medicine Hypertension Specialist | DX: E10.65 Type 1 diabetes mellitus with hyperglycemia (principal); E10.22 Type 1 diabetes mellitus with diabetic chronic kidney disease; E10.21 Type 1 diabetes mellitus with diabetic nephropathy; N18.5 Chronic kidney disease, stage 5 | CPT/HCPCS: 99212 ==

== ENCOUNTER 2024-02-05 07:36 | Outpatient (REF) | payer MEDICAID, SELFPAY ==
[2024-02-05 07:56] LABS: MANUAL DIFF FLAG NO
[2024-02-05 08:03] LABS: Basophils Percent Auto 0.5 % (0-2); Eosinophils Absolute Auto 0.2 X10*3/uL (0.0-0.4); Eosinophils Percent Auto 3.3 % (0-4); Hematocrit 29.6 % (42.0-52.0); Hemoglobin 10.3 g/dl (14.0-18.0); Imm Gran Abs Auto 0.01 X10*3/uL (0.00-0.03); Imm Gran Pct Auto 0.2 % (0.0-0.4); Lymphocytes Absolute Auto 1.7 X10*3/uL (1.2-4.9); Lymphocytes Percent Auto 27.5 % (20-40); Mean Corpuscular HGB Conc 34.8 g/dl (31.0-36.0); Mean Corpuscular Hemoglobin 30.1 pg (27.0-33.0); Mean Corpuscular Volume 86.5 fL (80.0-98.0); Monocytes Absolute Auto 0.5 X10*3/uL (0.1-1.2); Neutrophils Absolute Auto 3.6 x10*3/uL (2.0-8.3); Neutrophils Percent Auto 59.5 % (45-73); Platelet Count 226 X10*3/uL (160-400); Red Blood Count 3.42 X10*6/uL (4.60-5.80); Red Cell Distribution Width 11.3 % (11.0-16.0)
[2024-02-05 08:33] LABS: Anion Gap 15 (12-20); Blood Urea Nitrogen 69 mg/dL (9-16); Calcium 10.1 mg/dL (8.4-10.2); Carbon Dioxide 24 mmol/L (22-29); Chloride 105 mmol/L (96-108); Glucose Random 168 mg/dL (60-115); Potassium 4.5 mmol/L (3.3-5.1); Sodium 139 mmol/L (135-145)
[2024-02-05 08:38] LABS: Parathyroid Hormone Intact 34.9 pg/mL (8.7-77.1)
[2024-02-05 08:56] LABS: Estimated Glomerular Filt Rate 8
== END 2024-02-05 07:37 | disposition home or self-care (01) ==
LOC: HO.LAB 07:36
PROVIDERS: PCP Internal Medicine Geriatric Medicine; Visit Provider Internal Medicine Hypertension Specialist
DX: E10.22 Type 1 diabetes mellitus with diabetic chronic kidney disease (principal); N18.5 Chronic kidney disease, stage 5
CPT/HCPCS: 36415; 80048; 83970; 85025

== ENCOUNTER 2024-02-08 14:35 | Outpatient (AMB) | payer MEDICAID, SELFPAY ==
[2024-02-08 14:41] VITALS: BP 112/68; PULSE 76; O2SAT 99; BMI 23.7
--- NOTE | 2024-02-08 14:41 | HO.NEPHOV_ITS ---
Vital Signs 02/08/24 14:41 Height 5 ft 8 in Weight 156 lb BMI 23.7 BP 112/68 Blood Pressure Location Rt brachial Position Sitting Pulse 76 Pulse Source Pulse Oximeter Pulse Oximetry (%) 99 Oxygen Delivery Method Room Air Intake Visit Reasons: CKD/ Conf Renal Medicine Physician Required: Yes Accompanied by: Spouse Allergies losartan Allergy (Verified 02/08/24 14:43) Gastrointestinal Upset valsartan Adverse Reaction (Unknown, Verified 02/08/24 14:43) GI problems HPI Comments Details: 37-year-old man with type 1 diabetes mellitus and advanced CKD. He has underlying diabetic nephropathy. He was accompanied by his caregiver. Interpretation service was used. Today he has no new complaints. He is compliant with his medication. Blood sugar seems to be well controlled at home. Has AVF in left forearm- about 2 months old. Not mature yet Created by -VAscular on 06/14/23 12/03/23 Recently admitted with DKA and KAYODE Temp HD catheter was inserted and removed HD was not down Cr decreased from 12 to 6.5 mg/dL c/o burning sensation in both hands at night HE claims to have stopped using marijuana since discharge 01/11/2024 Home blood pressure readings are rather low 02/08/24. Doing about the same [facility] Medical History Hypertensive urgency CKD (chronic kidney disease) stage 4, GFR 15-29 ml/min Hypertensive nephrosclerosis Diabetic gastroparesis Pancreatitis Vitamin D deficiency Hypocalcemia Background diabetic retinopathy associated with type 2 diabetes mellitus Diabetes type 1, uncontrolled Hemangioma of liver Legally blind Acid reflux Sciatica Gastritis Polyneuropathy Essential hypertension Hyperlipidemia LDL goal <70 Surgical History Hx of endoscopy Hx of circumcision Hx of appendectomy Hx of eye surgery Family History Father Diabetes mellitus Mother Diabetes mellitus Maternal Grandfather Diabetes mellitus Maternal Grandmother Diabetes mellitus Social History Household Members: Spouse Household Members Other:: and girlfriend Housing: House Do you presently have 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 Patient Tobacco Use Status: Former Tobacco user Second Hand Smoke Exposure: No Substance Use Type: Marijuana Advance Directives Date on File: 04/13/20 service: No Current occupational status: disabled Physical Exam Vital Signs: Last Vital Signs Pulse 76 02/08/24 14:41 BP 112/68 02/08/24 14:41 Pulse Ox 99 02/08/24 14:41 Oxygen Delivery Method Room Air 02/08/24 14:41 BMI result Body Mass Index 23.7 Results Reviewed Nephrology Results: Hgb 10.3 g/dl (14.0-18.0) L 02/05/24 WBC 6.0 X10*3/uL (4.8-10.8) 02/05/24 Plt Count 226 X10*3/uL (160-400) 02/05/24 Sodium 139 mmol/L (135-145) 02/05/24 Potassium 4.5 mmol/L (3.3-5.1) 02/05/24 Chloride 105 mmol/L (96-108) 02/05/24 Carbon Dioxide 24 mmol/L (22-29) 02/05/24 BUN 69 mg/dL (9-16) H 02/05/24 Creatinine 7.97 mg/dL (0.5-1.4) H* 02/05/24 Calcium 10.1 mg/dL (8.4-10.2) 02/05/24 Phosphorus 5.6 mg/dL (2.7-4.5) H 01/08/24 PTH Intact 34.9 pg/mL (8.7-77.1) 02/05/24 Assessment & Plan Assessment & Plan (1) Diabetes type 1, uncontrolled: Code(s): E10.65 - Type 1 diabetes mellitus with hyperglycemia Category: Medical (2) 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 Renal function stable at baseline. No signs or symptoms of uremia. Fluid status is acceptable. Goal is to slow the portion disease. Current continue with current regimen. Maintain blood pressure less than 130/80 and A1c less than 7%. Continue to avoid nephrotoxic agents. He is being evaluated by [facility] transplant service for preemptive transplantation He has on the active list Resistant hypertension blood pressure well controlled I have encouraged him to stay on low-sodium diet. No changes were made. He is mild anemia no indication for Epogen yet. SHPT: On calcitriol AVFistula: Created on 06/05/23; Not ready for use. Needs revision before it can be accessed Burning sensation in hands Probably has diabetic neuropathy Keep Gabapentin 100 mg QHS Changed clonidine to 0.1 mg p.r.n. and administer if systolic blood pressure more than 140 mm Hg at home. No signs or symptoms of uremia. No absolute indication for dialysis yet. 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
== END 2024-02-08 14:52 | disposition home or self-care (01) ==
PROVIDERS: Visit Provider Internal Medicine Hypertension Specialist
DX: E10.65 Type 1 diabetes mellitus with hyperglycemia (principal); E10.22 Type 1 diabetes mellitus with diabetic chronic kidney disease; N18.5 Chronic kidney disease, stage 5
CPT/HCPCS: 99214

== ENCOUNTER → 2024-02-08 14:35 | Outpatient (BNVA) | payer MEDICAID, SELFPAY | PROVIDERS: Visit Provider Internal Medicine Hypertension Specialist | DX: E10.22 Type 1 diabetes mellitus with diabetic chronic kidney disease (principal); E10.40 Type 1 diabetes mellitus with diabetic neuropathy, unspecified; E10.21 Type 1 diabetes mellitus with diabetic nephropathy; E10.65 Type 1 diabetes mellitus with hyperglycemia; N18.5 Chronic kidney disease, stage 5 | CPT/HCPCS: 99212 ==

== ENCOUNTER 2024-03-10 09:37 | Outpatient (REF) | payer MEDICAID, SELFPAY ==
[2024-03-10 09:57] LABS: MANUAL DIFF FLAG NO
[2024-03-10 10:22] LABS: Basophils Percent Auto 0.5 % (0-2); Eosinophils Absolute Auto 0.2 X10*3/uL (0.0-0.4); Eosinophils Percent Auto 3.3 % (0-4); Hematocrit 28.5 % (42.0-52.0); Hemoglobin 9.9 g/dl (14.0-18.0); Imm Gran Abs Auto 0.01 X10*3/uL (0.00-0.03); Imm Gran Pct Auto 0.2 % (0.0-0.4); Lymphocytes Absolute Auto 1.6 X10*3/uL (1.2-4.9); Lymphocytes Percent Auto 28.3 % (20-40); Mean Corpuscular HGB Conc 34.7 g/dl (31.0-36.0); Mean Corpuscular Hemoglobin 29.8 pg (27.0-33.0); Mean Corpuscular Volume 85.8 fL (80.0-98.0); Mean Platelet Volume 9.6 fL (9.4-12.4); Monocytes Absolute Auto 0.5 X10*3/uL (0.1-1.2); Monocytes Percent Auto 8.3 % (2-11); Neutrophils Absolute Auto 3.5 x10*3/uL (2.0-8.3); Neutrophils Percent Auto 59.4 % (45-73); Platelet Count 216 X10*3/uL (160-400); Red Blood Count 3.32 X10*6/uL (4.60-5.80); Red Cell Distribution Width 11.5 % (11.0-16.0); White Blood Count 5.8 X10*3/uL (4.8-10.8)
[2024-03-10 10:57] LABS: Anion Gap 13 (12-20); Blood Urea Nitrogen 82 mg/dL (9-16); Calcium 10.5 mg/dL (8.4-10.2); Carbon Dioxide 23 mmol/L (22-29); Chloride 110 mmol/L (96-108); Estimated Glomerular Filt Rate 7; Glucose Random 123 mg/dL (60-115); Potassium 4.2 mmol/L (3.3-5.1); Sodium 142 mmol/L (135-145)
== END 2024-03-10 09:38 | disposition home or self-care (01) ==
LOC: HO.LAB 09:37
PROVIDERS: PCP Internal Medicine Geriatric Medicine; Visit Provider Internal Medicine Hypertension Specialist
DX: E10.22 Type 1 diabetes mellitus with diabetic chronic kidney disease (principal); N18.5 Chronic kidney disease, stage 5
CPT/HCPCS: 36415; 80048; 85025; 85027

== ENCOUNTER 2024-03-14 14:47 | Outpatient (AMB) | payer MEDICAID, SELFPAY ==
[2024-03-14 14:51] VITALS: BP 136/78; PULSE 83; O2SAT 98; BMI 24.0
--- NOTE | 2024-03-14 14:51 | HO.NEPHOV_ITS ---
Vital Signs 03/14/24 14:51 Height 5 ft 8 in Weight 158 lb BMI 24.0 BP 136/78 Blood Pressure Location Rt brachial Position Sitting Pulse 83 Pulse Source Pulse Oximeter Pulse Oximetry (%) 98 Oxygen Delivery Method Room Air Intake Visit Reasons: CKD-Conf Manager University Required: Yes Manager University Name: [employer] [id number] Accompanied by: Spouse Allergies losartan Allergy (Verified 03/14/24 14:51) Gastrointestinal Upset valsartan Adverse Reaction (Unknown, Verified 03/14/24 14:51) GI problems HPI Comments Details: 37-year-old man with type 1 diabetes mellitus and advanced CKD. He has underlying diabetic nephropathy. He was accompanied by his caregiver. Interpretation service was used. Today he has no new complaints. He is compliant with his medication. Blood sugar seems to be well controlled at home. Has AVF in left forearm- about 2 months old. Not mature yet Created by -VAscular on 06/14/23 12/03/23 Recently admitted with DKA and KAYODE Temp HD catheter was inserted and removed HD was not down Cr decreased from 12 to 6.5 mg/dL c/o burning sensation in both hands at night HE claims to have stopped using marijuana since discharge 01/11/2024 Home blood pressure readings are rather low 02/08/24. Doing about the same [facility] Medical History Hypertensive urgency CKD (chronic kidney disease) stage 4, GFR 15-29 ml/min Hypertensive nephrosclerosis Diabetic gastroparesis Pancreatitis Vitamin D deficiency Hypocalcemia Background diabetic retinopathy associated with type 2 diabetes mellitus Diabetes type 1, uncontrolled Hemangioma of liver Legally blind Acid reflux Sciatica Gastritis Polyneuropathy Essential hypertension Hyperlipidemia LDL goal <70 Surgical History Hx of endoscopy Hx of circumcision Hx of appendectomy Hx of eye surgery Family History Father Diabetes mellitus Mother Diabetes mellitus Maternal Grandfather Diabetes mellitus Maternal Grandmother Diabetes mellitus Social History Household Members: Spouse Household Members Other:: and girlfriend Housing: House 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 Patient Tobacco Use Status: Former Tobacco user Second Hand Smoke Exposure: No Substance Use Type: Marijuana Advance Directives Date on File: 04/13/20 service: No Current occupational status: disabled Physical Exam Vital Signs: Last Vital Signs Pulse 83 03/14/24 14:51 BP 136/78 03/14/24 14:51 Pulse Ox 98 03/14/24 14:51 Oxygen Delivery Method Room Air 03/14/24 14:51 BMI result Body Mass Index 24.0 Results Reviewed Nephrology Results: Hgb 9.9 g/dl (14.0-18.0) L 03/10/24 WBC 5.8 X10*3/uL (4.8-10.8) 03/10/24 Plt Count 216 X10*3/uL (160-400) 03/10/24 Sodium 142 mmol/L (135-145) 03/10/24 Potassium 4.2 mmol/L (3.3-5.1) 03/10/24 Chloride 110 mmol/L (96-108) H 03/10/24 Carbon Dioxide 23 mmol/L (22-29) 03/10/24 BUN 82 mg/dL (9-16) H 03/10/24 Creatinine 8.52 mg/dL (0.5-1.4) H* 03/10/24 Calcium 10.5 mg/dL (8.4-10.2) H 03/10/24 Phosphorus 5.6 mg/dL (2.7-4.5) H 01/08/24 PTH Intact 34.9 pg/mL (8.7-77.1) 02/05/24 Assessment & Plan Assessment & Plan (1) Diabetes type 1, uncontrolled: Code(s): E10.65 - Type 1 diabetes mellitus with hyperglycemia Category: Medical (2) 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 Renal function stable at baseline. No signs or symptoms of uremia. Fluid status is acceptable. Goal is to slow the portion disease. Current continue with current regimen. Maintain blood pressure less than 130/80 and A1c less than 7%. Continue to avoid nephrotoxic agents. He is being evaluated by [facility] transplant service for preemptive transplantation He has on the active list Resistant hypertension blood pressure well controlled I have encouraged him to stay on low-sodium diet. No changes were made. He is mild anemia no indication for Epogen yet. SHPT: On calcitriol Ca has increased; PTH is supressed WIll STOP Calcitriol and watch ( 03/14/24) AVFistula: Created on 06/05/23; Not ready for use. Needs revision before it can be accessed Burning sensation in hands Probably has diabetic neuropathy Keep Gabapentin 100 mg QHS Changed clonidine to 0.1 mg p.r.n. and administer if systolic blood pressure more than 140 mm Hg at home. No signs or symptoms of uremia. No absolute indication for dialysis yet. 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
== END 2024-03-14 15:01 | disposition home or self-care (01) ==
PROVIDERS: Visit Provider Internal Medicine Hypertension Specialist
DX: E10.65 Type 1 diabetes mellitus with hyperglycemia (principal); E10.22 Type 1 diabetes mellitus with diabetic chronic kidney disease; N18.5 Chronic kidney disease, stage 5
CPT/HCPCS: 99214

== ENCOUNTER → 2024-03-14 14:47 | Outpatient (BNVA) | payer MEDICAID, SELFPAY | PROVIDERS: Visit Provider Internal Medicine Hypertension Specialist | DX: E10.22 Type 1 diabetes mellitus with diabetic chronic kidney disease (principal); E10.21 Type 1 diabetes mellitus with diabetic nephropathy; E10.65 Type 1 diabetes mellitus with hyperglycemia; N18.5 Chronic kidney disease, stage 5 | CPT/HCPCS: 99212 ==

== ENCOUNTER 2024-03-18 15:01 | Outpatient (AMB) | payer MEDICAID, SELFPAY ==
--- NOTE | 2024-03-18 14:50 | A.OFFVIS_ITS ---
Vital Signs 03/18/24 15:06 Height 5 ft 8 in Weight 156 lb 8.451 oz BMI 23.8 BP 114/72 Blood Pressure Location Rt brachial Position Sitting Pulse 74 Pulse Source Pulse Oximeter Intake Visit Reasons: T1DM Intake Note: Patient presents today for a follow-up on Type 1 Diabetes Mellitus: Last Diabetic eye exam was on: 05/2023 Last Podiatry exam was on: Does not see a Glove Turner And Former Automatic Most recent HbA1c: 6.0%, 03/18/2024 Random Glucose- 89 mg/dL, Today Breakdown Worker Required: Yes Breakdown Worker Language: Pest Technician Services: Breakdown Worker Present Breakdown Worker Name: GIL Licona/LENARD MERCADO Information Interpreted: non-clinical & clinical Accompanied by: Self / Same As Patient Allergies losartan Allergy (Verified 03/14/24 14:51) Gastrointestinal Upset valsartan Adverse Reaction (Unknown, Verified 03/14/24 14:51) GI problems HPI Comments Details: Patient is a 38-year-old male with DM type 1 diagnosed at the age of 7 here for f/u management of diabetes. He is on an Omnipod 5 with a G7 sensor.. He is here today unaccompanied by his . Isaías Villegas used for interpretation. Most recent A1C 03/18/24 6%. (may not be reliable indicator due to anemia. Fructosamine ordered in the lab) Has retinopathy: Legally blind in both eyes. Last eye examination: earlier this year. Has neuropathy on low dose gabapentin. Symptoms include, numbness, pain. Denies cramping in the lower extremity Has nephropathy: Followed by Dr. Bejarano He is being evaluated by [facility] transplant service for preemptive transplantation. He had a temporary HD access placed during a recent hospitalization which was discontinued. Kidney function remained stable He has on the active list. Has AVF in left forearm- approx 09/2023. Not mature yet Has HLD: On high dose atorvastatin and Zetia. Backup insulin pump plan 15-20 units of Lantus once daily in 5-6 units of Humalog t.i.d. with the meals. He has seen Dr. Prateek CAMACHO at [facility] and was diagnosed with gastroparesis. He has been to the ER several times with left upper quadrant abdominal pain and treated in the ER with Dilaudid. He currently has no pain and we will schedule an appointment with Dr. Chandra for evaluation. Basal rate(s) (units/hour) : ?12 AM to 7 AM 1.25 units/hr? 7 AM to 12 AM 1.0 units /hr Bolus setting Insulin Carbohydrate Ratio (s) 12 AM to 12 AM? 1 unit:11gm? Correction Factor / Sensitivity Factor 12 AM to 12 AM? 1 unit / 60 mg/dL 12 AM to 7 AM??1 unit / 70 mg/dL 7 AM to 12 AM? 1 unit / 60 mg/dL Active Insulin Time:? 3 hours Target(s): 12 AM to 12 AM 120 mg/dL Dexcom average glucose: 155 14 day continuous glucose monitor report reviewed Glucose Managment indicator 7 % Days with CGM data 96.7 % TIme in ranges: 2 % very high (above 250) 20 % high ?(181-250) 70 % in range ?(70-180] 0 % low (69-55) 0 % ?very low (below 54) Interpretation well-controlled without significant postprandial elevations Total daily dose of insulin 37.1 units Basal 49% 18.3 units bolus 51% 18.7 units He appears to be entering in all carbohydrate g [facility] Medical History (Updated 12/04/23 @ 00:02 by Kristin Encarnacion) Hypertensive urgency CKD (chronic kidney disease) stage 4, GFR 15-29 ml/min Hypertensive nephrosclerosis Diabetic gastroparesis Pancreatitis Vitamin D deficiency Hypocalcemia Background diabetic retinopathy associated with type 2 diabetes mellitus Diabetes type 1, uncontrolled Hemangioma of liver Legally blind Acid reflux Sciatica Gastritis Polyneuropathy Essential hypertension Hyperlipidemia LDL goal <70 Surgical History (Updated 03/18/24 @ 15:40 by GIL Licona) History of surgery Hx of endoscopy Hx of circumcision Hx of appendectomy Hx of eye surgery Family History Father Diabetes mellitus Mother Diabetes mellitus Maternal Grandfather Diabetes mellitus Maternal Grandmother Diabetes mellitus Social History Household Members: Spouse Household Members Other:: and girlfriend Housing: House Do you presently have visiting nurse or other home services: Yes ([employer]) Alcohol intake: former Comment: refusing fall risk interventions. Patient Tobacco Use Status: Former Tobacco user Second Hand Smoke Exposure: No Substance Use Type: Marijuana Advance Directives Date on File: 04/13/20 service: No Current occupational status: disabled Physical Exam Vital Signs: Last Vital Signs Pulse 74 03/18/24 15:06 BP 114/72 03/18/24 15:06 BMI result Body Mass Index 23.8 Const Other: Absence of Cushingoid features. Absence of acromegalic features. Neck exam reveals nl size thyroid about 15 gms. No thyroid nodules palpable. No carotid bruits present. Lungs CTA. Heart S1 S2, Reg R/R. No M/R G. Skin exam reveals absence of vitiligo or acanthosis nigricans. No edema Visual exam of foot performed. No ulcerations or open lesions. No inter digit maceration or fissuring. No onychomycosis, no callouses. Sensation intact to monofilament exam. Vibratory sensation is normal with 128 Hz tuning fork. Results AMB Hemoglobin A1c AMB Hemoglobin A1c 6.0 % Last Edit by GIL Licona on 03/18/24 15:42 Results Reviewed Results Reviewed: Laboratory Last Values Glucose (Clinic) 89 mg/dL (60-115) 03/18/24 15:11 Hgb A1c (Clinic) 6.0 % (4.0-6.0) 03/18/24 15:41 Assessment & Plan Assessment & Plan (1) Diabetes type 1, uncontrolled: Code(s): E10.65 - Type 1 diabetes mellitus with hyperglycemia Category: Medical Plan: 38-year-old type 1 diabetic on an insulin pump with CKD stage 5 and retinopathy with well-controlled diabetes. We will can firm glycemic control with a fructosamine level Continue current setting on pump. Extensively educated on preventing and treating DKA. The patient had an opportunity to ask questions regarding treatment plan. The patient expressed understanding and agreement with the above treatment plan. The patient is aware they should contact our office by phone for worsening glucose readings or for any low blood sugars which may warrant a change in diabetes medication. Compliance is encouraged with medications and any followup testing/consults which may have been ordered. Orders: Orders Fructosamine 4 Weeks E10.65 - Type 1 diabetes mellitus with hyperglycemia AMB Hemoglobin A1c 03/18/24 E10.65 - Type 1 diabetes mellitus with hyperglycemia Patient Instructions: Take 15 carb carbohydrate grams to treat a low sugar (3-4 glucose tablets, half a glass of juice or 15 carbohydrate grams of soft candy such as gummie snacks). Recheck your sugar in 15 minutes and re-treat again with 15 carbohydrate grams if low or still with symptoms. Do not drive a car or operate machinery if you do not know what your blood sugar is, if it is low or in excess of 300. Diabetic ketoacidosis (DKA) A serious condition that can lead to diabetic coma (passing out for a long time) or even When your cells don't get the glucose they need for energy, your body begins to burn fat for energy, which produces ketones. Ketones are chemicals that the body creates when it breaks down fat to use for energy. The body does this when it doesn?t have enough insulin to use glucose, the body?s normal source of energy. When ketones build up in the blood, they make it more acidic. They are a warning sign that your diabetes is out of control or that you are getting sick. Symptoms of Diabetic Ketoacidosis (DKA) DKA usually develops slowly. But when vomiting occurs, this life-threatening condition can develop in a few hours. Early symptoms include the following: ? Thirst or a very dry mouth ? Frequent urination ? High blood glucose (blood sugar) levels ? High levels of ketones in the urine ? Then, other symptoms appear: ? Constantly feeling tired ? Dry or flushed skin ? Nausea, vomiting, or abdominal pain ? (Vomiting can be caused by many illnesses, not just ketoacidosis. If vomiting continues for more than 2 hours, contact your health care provider.) ? Difficulty breathing ? Fruity odor on breath ? A hard time paying attention, or confusion When should you test for ketones? It is advisable to check for ketones under the following conditions when: Your blood glucose is higher than 250mg/dl. Feeling nauseated, throwing up, or have pains in your abdominal region. Have a cold or flu. Have general body fatigue. Feel thirsty or have a very dry mouth. Have flushed skin. Have a fruity breath or a hard time breathing. You feel perplexed or in fog. How to Test Urine for Ketones You can detect ketones with a simple urine test using a test strip, similar to a blood testing strip. Ask your health care provider when and how you should test for ketones. Many experts advise to check your urine for ketones when your blood glucose is more than 250 mg/dl. When you are ill (when you have a cold or the flu, for example), check for ketones every 4 to 6 hours. And check every 4 to 6 hours when your blood sugar is more than 250 mg/dl. Also, check for ketones when you have any symptoms of DKA. How to lower your blood sugar level. ? Take medications as directed by physician. ? Drink extra water or noncaffeinated, nonsugared drinks to prevented hydration. ? Exercise if you are not sick However, if your blood sugar is above 250 mg/dl, check your urine for ketones. If you have ketones, do not exercise Exercising when ketones are present may make your blood sugar level go even higher. You'll need to work with your doctor to find the safest way for you to lower your blood sugar level. Check your feet daily looking for any signs of infection, drainage, redness, ulceration and seek medical attention if this occurs. Break in shoes gradually and do not wear open-toed shoes or walk stocking footed or barefooted. Troubleshooting after starting new pod or inserting new insulin set: Occlusion, adhesive tape sensitivity, redness Check BG 2 hours after site change Safety information: Importance of a backup plan, for manual injections, proper prescriptions and emergency supplies ketone strips, and rules for testing for ketones Coding Level of Care Code Est Pt Level 4 (34234) Complex EM visit Add On G2211 Diagnoses Uncontrolled type 1 diabetes mellitus with hyperglycemia E10.65 Time Spent (min) 30 Comment Reviewing labs/provider notes, glucose sensor/pump reports, face to face, chart doc
[2024-03-18 15:06] VITALS: BP 114/72; PULSE 74; BMI 23.8
[2024-03-18 15:19] LABS: Glucose, Whole Blood 89 mg/dL (60-115)
--- OUTSIDE RECORDS SUMMARY | 2024-03-18 16:17 | XMS_ITS | Encounter Summary ---
Author Organization [facility] Address [address] [place] [address] [address] [place] [address] Care Team Providers Care Melt House Centrifugal Operator Name Role Phone Name, Hong FOSS Primary Care Provider [phone] Magali Doty PharmD Unavailable [phone] Reason for Visit * Reason Comments Med Refill Encounter Details Date Type Department Care Team (Late st Contact Info) Description 01/27/2022 Refill [facility] MEDICINE [address] [place] [id number] Name, MD Hong [address] [place] [id number] Social History Tobacco Use Types Packs/Day Years Used Date Smoking Tobacco: Never Assessed Sex and Gender Information Value Date Recorded Sex Assigned at Male 12/23/2021 10:17 AM EDT Legal Sex Male 10:17 AM EDT Gender Identity Male 12/23/2021 10:17 AM EDT Sexual Orientation Straight 12/23/2021 10 :17 AM EDT documented as of this encounter Plan of Treatment Not on file documented as of this encounter Visit Diagnoses Not on filedocumented in this encounter Care Teams Melt House Centrifugal Operator Relationship Specialty Start Date End Date Hong Rodríguez MD [address] [place] [address] PCP - General Family Medicine 06/18/16 Magali Doty, PharmD [address] [place] [address] Pharmacist Internal Medicine 08/15/22 documented as of this encounter
--- OUTSIDE RECORDS SUMMARY | 2024-03-18 16:17 | XMS_ITS | Encounter Summary ---
Author Organization [facility] Address [address] [place] [address] Phone Care Team Providers Care Radial Drill Press Operator Name Role Phone Name, Hong FOSS Primary Care Provider [phone] Encounter Details Date Type Department Care Team (Late st Contact Info) Description 01/23/2023 Office Communication [facility] [address] [place] [phone] Pro Christianson MD [address] [facility] [address] [place] [phone] Social History Tobacco Use Types Packs/Day Years Used Date Smoking Tobacco: Former Cigarettes Smokeless Tobacco: Never Alcohol Use Standard Drinks/Week Comments Yes 0 (1 standard drink = 0.6 oz pure alcohol) Alcoholic Drinks/day: Occasional social drink Sex and Gender Information Value Date Recorded Sex Assigned at Not on file Legal Sex Male 4:49 PM EST Gender Identity Not on file Sexual Orientation Not on file documented as of this encounter Miscellaneous Notes * Telephone Encounter - Pro Christianson MD - 02/19/2023 6:59 PM EST Pls scheduel eval for AVF with [facility] Pls re-refer him to [facility] for eval for xplant and let [facility] know that PT is followed by me and not Dr Bejarano * Telephone Encounter - Deanne Garcia - 01/26/2023 9:32 AM EST Patient rescheduled for 01/27/[address] Christianson * Telephone Encounter - Pro Christianson MD - 01/23/2023 9:28 AM EST Deanne Pls call and c if PT wants to see me or Dr Bowles ( the director of [facility]) --he missed his appt with me today documented in this encounter Plan of Treatment Not on file documented as of this encounter Visit Diagnoses Not on filedocumented in this encounter Care Teams Radial Drill Press Operator Relationship Specialty Start Date End Date Name, MD Hong [address] [place] [address] PCP - General 03/05/20 documented as of this encounter
--- OUTSIDE RECORDS SUMMARY | 2024-03-18 16:17 | XMS_ITS | Encounter Summary ---
Author Organization [employer] Address [address] [facility] [address] [place] [address] Care Team Providers Care Stitch Cleaner Name Role Phone Name, Hong FOSS Primary Care Provider [phone] Magali Doty PharmD Unavailable [phone] Reason for Visit * Reason Comments Med Refill Encounter Details Date Type Department Care Team ([facility] st Contact Info) Description 09/08/2023 Refill [facility] MEDICINE [address] [place], [place] [phone] Name, MD Hong [address] [place] [address] Social History Tobacco Use Types Packs/Day Years Used Date Smoking Tobacco: Former Cigarettes Alcohol Use Standard Drinks/Week Comments Not Currently 0 (1 standard drink = 0.6 oz pur e alcohol) Depression Answer Date Recorded Patient Health Questionnaire-9 Score 0 04/14/2023 Patient Health Questionnaire-9 Score 0 04/14/2023 Last PHQ-9: Questionnaire Data Not on file 0 04/14/2023 Housing Stability Answer Date Recorded What is your housing situation today? I have padmini cameron 04/14/[address] you li ve. Do you have problems with any of the following? None of the above 04/14/2023 Food Insecurity Answer Date Recorded Within the past 12 months, y ou worried that your food would run out before you got money to buy more: Never True 04/14/2023 Within the past 12 months,th e food you bought just didn't last and you didn't have enough money to get more: Never True Transportation Answer Date Recorded In the past 12 months, has l ack of transportation kept you from medical appts, meetings, work or from getting things needed for daily living? No 04/14/2023 Utilities Answer Date Recorded In the past 12 months, has t he electric, gas, oil or water company threatened to shut off services in your home? No 04/14/2023 Depression Answer Date Recorded Patient Health Questionnaire-2 Score 0 04/14/2023 Sex and Gender Information Value Date Recorded Sex Assigned at Male 12/23/2021 10:17 AM EDT Legal Sex Male 10:17 AM EDT Gender Identity Male 12/23/2021 10:17 AM EDT Sexual Orientation Straight 12/23/2021 10 :17 AM EDT documented as of this encounter Plan of Treatment Not on file documented as of this encounter Goals Goal Patient Goal Type Associated Problems Recent Progress Patient-Stated? Author Record your blood pressure once per day Blood Pressure No Magali Doty PharmD Blood Pressure < 140/90 Blood Pressure 121/76( 024 3:50 PM EST) No Magali Doty PharmD documented as of this encounter Visit Diagnoses Not on filedocumented in this encounter Additional Health Concerns Assessment Noted Time PHQ-9 Depression Total Score: 0 04/14/19 24 1:09 PM EST documented as of this encounter Care Teams Stitch Cleaner Relationship Specialty Start Date End Date Name, MD Hong [address] [place] [address] PCP - General Family Medicine 06/18/16 Magali Doty PharmD [address] [place] [address] Pharmacist Internal Medicine 08/15/22 documented as of this encounter
--- OUTSIDE RECORDS SUMMARY | 2024-03-18 16:17 | XMS_ITS | Encounter Summary ---
Author Organization [employer] Address [address] [facility] 7t [place] [address] Care Team Providers Care Rn Maternity Name Role Phone Name, Hong FOSS Primary Care Provider [phone] Magali Doty PharmD Unavailable [phone] Reason for Visit * Reason Onset Date Comments CLOTHING EXAMINER Services 09/08/2023 Encounter Details Date Type Department Care Team ([facility] st Contact Info) Description 09/08/2023 Telephone [facility] MEDICINE [address] [place], [place] [phone] Name, MD Hong [address] [place] [address] CLOTHING EXAMINER Services Social History Tobacco Use Types Packs/Day Years [...] AM EDT documented as of this encounter Miscellaneous Notes * Telephone Encounter - Colton Herrera RN - 09/08/2023 2:53 PM EDT T/C to patricia to inform that pt. Or daycare teacher has to call for CLOTHING EXAMINER service ( List is below ) , they will evaluate pt. For CLOTHING EXAMINER service and will send documents to PCP for sign. No answer. LVM to call back on [phone]. [facility] [address] [place] [address] [facility] [address] [place] [address] A [facility] (Not accepted by [facility]) [address] [address] * Telephone Encounter - Shantal Chavarria - 09/08/2023 1:17 PM EDT Tc from [facility] stating she received a phone call from [facility],. * Telephone Encounter - Colton Herrera RN - 09/08/2023 1:16 PM EDT T/C to [phone] through propio interpreters id - [id number] for below message , No answer.voice mailbox is full, not able to LVM. * Telephone Encounter - Solomon Trevino - 09/08/2023 12:17 PM EDT Tc from the patients spouse requesting CLOTHING EXAMINER services for the patient states the patient should not be alone due to conditions documented in this encounter Plan of Treatment Not on file documented as of this encounter Goals Goal Patient Goal Type Associated Problems Recent Progress Patient-Stated? Author Record your blood pressure once per day Blood Pressure No PuiaMagali, PharmD Blood Pressure < 140/90 Blood Pressure 121/76( 024 3:50 PM EST) No PuiaSamMagali, PharmD documented as of this encounter Visit Diagnoses Not on filedocumented in this encounter Additional Health Concerns Assessment Noted Time PHQ-9 Depression Total Score: 0 04/14/19 24 1:09 PM EST documented as of this encounter Care Teams Rn Maternity Relationship Specialty Start Date End Date Name, MD Hong [address] [place] [address] PCP - General Family Medicine 06/18/16 Magali Doty, PharmD [address] [place] [address] Pharmacist Internal Medicine 08/15/22 documented as of this encounter
--- OUTSIDE RECORDS SUMMARY | 2024-03-18 16:17 | XMS_ITS | Encounter Summary ---
Author Organization [facility] Address [address] [facility] [address] [place] [address] Phone Care Team Providers Care Iron Bender Name Role Phone Name, Hong FOSS Primary Care Provider [phone] Reason for Referral * Consultation (Routine) - Closed Specialty Diagnoses / Procedures Referred By Contac t Referred To Contact Transplant Surgery Diagnoses Chronic kidney disease, stage 4 (severe) (HCC) Pro Christianson MD Phone: tel: fax: [facility] [address] [place] [address] Phone: tel: Referral ID Status Reason Start Date Expiration Date V isits Requested Visits Authorized [id number] Closed Specialty Services Required 02/25/2023 02/25/2024 1 1 Encounter Details Date Type Department Care Team (Latest Contact Info) Description 02/25/2023 Office Communication [facility] [address] [facility] [address] [place] [phone] Pro Christianson MD [address] [facility] [address] [place] [phone] Chronic kidney disease, stage 4 (severe) (HCC) (Primary Dx) Social History Tobacco Use Types Packs/Day Years [...] on file documented as of this encounter Plan of Treatment Scheduled Referrals Name Type Priority Associated Diagnoses Order Schedule Ambulatory referral to Solid Organ Transplant Team Outpatient Referral Routine Chronic kidney disease, stage 4 (severe) (HCC) Expected: 03/04/2023, Expires: 03/28/2024 documented as of this encounter Visit Diagnoses Diagnosis Chronic kidney disease, stage 4 (severe) (HCC)- Primary documented in this encounter Care Teams Iron Bender Relationship Specialty Start Date End Date Name, MD Hong [address] [place] [address] PCP - General 03/05/20 documented as of this encounter
--- OUTSIDE RECORDS SUMMARY | 2024-03-18 16:17 | XMS_ITS | Encounter Summary ---
Author Organization [employer] Address [address] [facility] [address]t [place] [address] Care Team Providers Care Financial Reporting Accountant Name Role Phone Name, Hogn FOSS Primary Care Provider [phone] Magali Doty PharmD Unavailable [phone] Reason for Visit * Reason Comments Med Refill Encounter Details Date Type Department Care Team ([facility] st Contact Info) Description 09/13/2023 Refill [facility] MEDICINE [address] [place], [place] [phone] Name, MD Hong [address] [place] [address] Type 1 diabetes mellitus with other specified complication (CMS/HCC) Social History Tobacco Use Types Packs/Day Years [...] once per day Blood Pressure No Magali Doty, PharmD Blood Pressure < 140/90 Blood Pressure 121/76( 024 3:50 PM EST) No Magali Doty, PharmD documented as of this encounter Visit Diagnoses Diagnosis Type 1 diabetes mellitus with other specified complication (CMS/HCC) documented in this encounter Additional Health Concerns Assessment Noted Time PHQ-9 Depression Total Score: 0 04/14/19 24 1:09 PM EST documented as of this encounter Care Teams Financial Reporting Accountant Relationship Specialty Start Date End Date Name, MD Hong [address] [place] [address] PCP - General Family Medicine 06/18/16 Magali Doty, PharmD [address] [place] [address] Pharmacist Internal Medicine 08/15/22 documented as of this encounter
--- OUTSIDE RECORDS SUMMARY | 2024-03-18 16:17 | XMS_ITS | Clinical Summary ---
Author Organization [facility] Address [address] [facility] [address] [place] [address] Phone Care Team Providers Care Welding Machine Operator Helper Arc Name Role Phone Name, Hong FOSS Primary Care Provider [phone] Allergies Active Allergy Reactions Criticality Noted Date Comments Gluten Meal GI intolerance 10/15/2022 Losartan Rash Low 06/18/2022 Valsartan Rash Low 06/18/2022 Medications * This document contains information received from the source organization and may not represent a complete record from that organization. atorvastatin (LIPITOR) 80 MG tablet Take 20 mg by mouth 1 (one) time each day 1 Active DULCOLAX 5 MG EC tablet TAKE 2 TABLETS BY MOUTH ONCE AT 12 PM THE DAY BEFORE PROCEDURE 1 Active cholecalciferol (VITAMIN D-3) 50 MCG (1999 UT) capsule Take by mouth 1 (one) time each day 1 Active ezetimibe (ZETIA) 10 MG tablet Take 10 mg by mouth 1 (one) time each day 1 Active gabapentin (NEURONTIN) 300 MG capsule Take 300 tablets by mouth at bed time Active insulin lispro (HumaLOG) 100 UNIT/ML injection Inject 5 Units under the skin 5 (five) times a day Active nortriptyline (PAMELOR) 50 MG capsule Take 50 mg by mouth at bed time 1 Active omeprazole (PriLOSEC) [address] capsule TAKE 1 CAPSULE BY MOUTH EVERY DAY BEFORE A MEAL 1 Active hydrALAZINE 100 MG tablet Take 100 mg by mouth in the morning and 100 mg in the evening and 100 mg before bedtime. Active metoprolol succinate XL (TOPROL XL) 50 MG 24 hr tablet Take 75 mg by mouth 1 (one) time each day Do not crush or chew. Active NIFEdipine CC (ADALAT CC) 60 MG 24 hr tablet Take 60 mg by mouth 1 (one) time each day before breakfast Do not crush, chew, or split. Active Active Problems Problem Noted Date Diagnosed Date Chronic kidney disease, stage 4 (severe) 023 Hypertensive urgency 01/13/2023 01/26/2023 Benign prostatic hyperplasia 01/13/202305/2022 Abdominal pain 01/13/2023 01/26/2023 Blindness, both eyes 05/28/2020 Chronic kidney disease stage 3 05/28/2020 Chronic low back pain 05/28/2020 Hypertensive disorder 05/28/2020 Polyneuropathy due to diabetes mellitus 05/29/19 Renal disorder due to type 1 diabetes mellitus 0 05/28/2020 Scoliosis deformity of spine 05/28/2020 Bilateral phthisis bulbi 07/23/2018 Blindness AND/OR vision impairment level 019 Cataract 07/23/2018 Diabetes mellitus 07/23/2018 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 06/19/2016 10/16/2022 Immunizations Name Administration Dates Next Due Influenza, MDCK, PF, Quadrivalent 01/30/2020 Influenza, Quadrivalent, Preservative Free 01/14,01/06/2022,12/18/2020 Influenza, Quadrivalent, With Preservative 11/30,11/16/2017,01/01/2017 Pneumococcal Conjugate Pcv 20 01/14/2023 Pneumococcal Polysaccharide 07/23/2016 Tdap 07/23/2016 Varicella 01/02/2023,01/30/2020 Family History Medical History Relation Comments Diabetes Mother Relation Status Comments Father Unknown Mother Unknown Social History Tobacco Use Types Packs/Day Years [...] on file Sexual Orientation Not on file Last Filed Vital Signs Vital Sign Reading Time Taken Comments Blood Pressure 142/80 01/26/2023 4:33 PM EST Pulse 77 01/26/2023 4:33 PM EST Temperature - - Respiratory Rate - - Oxygen Saturation 99% 01/26/2023 4:33 PM EST Inhaled Oxygen Concentration - - Weight 81.6 kg (180 lb) 01/26/2023 4:33 PM EST Height 172.7 cm (5' 8 ) 02/11/2019 12:00 PM EST Body Mass Index 27.37 02/11/2019 12:00 PM EST Plan of Treatment Health Maintenance Due Date Last Done Comments Hepatitis B Vaccine (1 of 3 - 19+ 3-dose series) 09/28/2003 Diabetes: Ophthalmology Exam 03/26/2020 Diabetes: Pedal Pulse Checked 03/26/2020 Diabetes: Sensory Foot Exam 03/26/2020 Diabetes: Visual Foot Exam 03/26/2020 Diabetes: Hemoglobin A1C 01/15/2023 023, 06/18/2022, 03/25/2022 Influenza Vaccine (#1) 2023 3, 01/06/2022, 12/18/2020, Additional history exists Pneumococcal Vaccine: Pediat rics (0 to 5 Years) and At-Risk Patients (6 to 64 Years) Completed 01/14/2023, 07/23/2016 [place] Care Teams Welding Machine Operator Helper Arc Relationship Specialty Start Date End Date Name, MD Hong [address] [place] [phone] PCP - General 03/05/20
--- OUTSIDE RECORDS SUMMARY | 2024-03-18 16:17 | XMS_ITS | Encounter Summary ---
Author Organization [facility] [employer] Address [address] [facility] [address] [place] [address] Care Team Providers Care Tiltrotor Crew Chief Name Role Phone Name, Hong FOSS Primary Care Provider [phone] Magali Doty PharmD Unavailable [phone] Encounter Details Date Type Department Care Team (Late st Contact Info) Description 03/10/2024 Orders Only GENERIC EXTERNAL DATA DEPARTMENT Provider, Generic External Data Social History Tobacco Use Types Packs/Day Years Used Date Smoking Tobacco: Former Cigarettes Alcohol Use Standard Drinks/Week Comments Not Currently 0 (1 standard drink = 0.6 oz pur e alcohol) Alcohol Answer Date Recorded Frequency of Alcohol Consumption Not on file 12/11/2023 Average Number of Drinks Not on file 024 Frequency of Binge Drinking Not on file 11/23 Score 0 12/11/2023 Depression Answer Date Recorded Patient Health Questionnaire-9 [...] Recorded Patient Health Questionnaire-2 Score 0 04/14/2023 Internet Access Answer Date Recorded Internet Access Q1 Yes 11/27/2023 Internet Access Q2 Not on file 11/27/2023 Sex and Gender Information Value Date Recorded [...] pressure once per day Blood Pressure No PuiaJaninasa, PharmD Blood Pressure < 140/90 Blood Pressure 121/76( 024 3:50 PM EST) No Loraineia, Magali, PharmD documented as of this encounter Procedures Procedure Name Priority Date/Time Associated Diagnosis Comments CBC WITH AUTO DIFFERENTIAL Routine 03/10/2024 9:56 AM EST CBC Routine 03/10/2024 9:56 AM EST BASIC METABOLIC PANEL Routine 03/10/2024 9:56 AM EST documented in this encounter Results * (ABNORMAL) Basic Metabolic Panel (03/10/2024 9:56 AM EST) Sodium 142 135 - 145 mmol/L [facility] Potassium 4.2 3.3 - 5.1 mmol/L [facility] Chloride 110(H) 96 - 108 mmol/L [facility] Carbon Dioxide 23 22 - 29 mmol/L [facility] Anion Gap 13 12 - 20 [facility] Urea Nitrogen (BUN) 82(H) 9 - 16 mg/dL [facility] Creatinine, Serum 8.52(HH) 0.5 - 1.4 mg/dL [facility] Comment:Critical value for C RE: Results called to and read russelly: KANIKA Zuluaga Person calling: [email or web address] Date: 03-10-24 Time: 1056 Estimated Glomerular Filt Rate 7 [facility] Comment:Chronic Kidney Disea se: Estimated GFR < 60 mL/min/[id number] Kidney Disease: Estimated GFR < 15 mL/min/1.73m2 Glucose 123(H) 60 - 115 mg/dL [facility] Calcium 10.5(H) 8.4 - 10.2 mg/dL [facility] 03/10/2024 9:56 AM EST 03/10/2024 9:56 AM EST us Generic External Data Provider LAB BLOOD ORDERAB LES Final Result [facility] [address] [place] [phone] * CBC auto differential (03/10/2024 9:56 AM EST) Neutrophils Percent Auto 59.4 45 - 73 % [facility] Imm Gran Pct Auto 0.2 0.0 - 0.4 % [facility] Lymphocytes Percent Auto 28.3 20 - 40 % [facility] Monocytes Percent Auto 8.3 2 - 11 % [facility] Eosinophils Percent Auto 3.3 0 - 4 % [facility] Basophils Percent Auto 0.5 0 - 2 % [facility] Neutrophils Absolute Auto 3.5 2.0 - 8.3 x10*3/uL [facility] Imm Gran Abs Auto 0.01 0.00 - 0.03 X10*3/uL [facility] Lymphocytes Absolute Auto 1.6 1.2 - 4.9 X10*3/uL [facility] Monocytes Absolute Auto 0.5 0.1 - 1.2 X10*3/uL [facility] Eosinophils Absolute Auto 0.2 0.0 - 0.4 X10*3/uL [facility] Basophils Absolute Auto 0.0 0.0 - 0.2 X10*3/uL [facility] 03/10/2024 9:56 AM EST 03/10/2024 9:56 AM EST us Generic External Data Provider LAB BLOOD ORDERAB LES Final Result Performing Organization Address City/[facility]/ZIP Co de Phone Number [facility] [address] [place] [phone] * (ABNORMAL) CBC (03/10/2024 9:56 AM EST) White Blood Count 5.8 4.8 - 10.8 X10*3/uL [facility] Red Blood Count 3.32(L) 4.60 - 5.80 X10*6/uL [facility] Hemoglobin 9.9(L) 14.0 - 18.0 g/dl [facility] Hematocrit 28.5(L) 42.0 - 52.0 % [facility] Mean Corpuscular Volume 85.8 80.0 - 98.0 fL [facility] Mean Corpuscular Hemoglobin 29.8 27.0 - 33.0 pg [facility] Mean Corpuscular HGB Conc 34.7 31.0 - 36.0 g/dl [facility] Red Cell Distribution Width 11.5 11.0 - 16.0 % [facility] Platelet Count 216 160 - 400 X10*3/uL [facility] Mean Platelet Volume 9.6 9.4 - 12.4 fL [facility] NRBC Pct Auto 0.0 0.0 - 0.2 /100WBC [facility] NRBC Abs Auto 0.000 0.0 - 0.012 X10*3/uL [facility] 03/10/2024 9:56 AM EST 03/10/2024 9:56 AM EST us Generic External Data Provider LAB BLOOD ORDERAB LES Final Result Performing Organization Address City/[facility]/ZIP Co de Phone Number [facility] [address] [place] [phone] documented in this encounter Visit Diagnoses Not on filedocumented in this encounter Additional Health Concerns Assessment Noted Time PHQ-9 Depression Total Score: 0 04/14/19 24 1:09 PM EST documented as of this encounter Care Teams Tiltrotor Crew Chief Relationship Specialty Start Date End Date Name, MD Hong [address] [place] [phone] PCP - General Family Medicine 06/18/16 Magali Doty, TimothyD [address] [place] [phone] Pharmacist Internal Medicine 08/15/22 documented as of this encounter
--- OUTSIDE RECORDS SUMMARY | 2024-03-18 16:17 | XMS_ITS | Clinical Summary ---
Author Organization [employer] Address [address] [place] [address] 7t [place] [address] Care Team Providers Care Soil Sampler Name Role Phone Name, Hong FOSS Primary Care Provider [phone] Magali Doty PharmD Unavailable [phone] Allergies Active Allergy Reactions Criticality Noted Date Comments Gluten Meal GI intolerance 10/15/2022 Losartan Rash,GI intolerance Low 06/18/2022 Other reaction(s): abdominal pain Penicillins Swelling 07/13/2023 Valsartan Rash,Diarrhea Low 06/18/2022 Other reaction(s): GI problems Medications hydrALAZINE (Apresoline) 100 MG tabletIndication s:Essential hypertension Take 1 tablet (100 mg) by mouth 3 times daily. 90 tablet 11 3 Active Blood Pressure kit Use once a day 1 kit 3 Active Insulin Aspart 100 UNIT/ML solution INJECT BY INSULIN PUMP THREE TIMES DAILY DIRECTED. DO NOT EXCEED 70 UNITS DAILY. 3 Active Insulin Disposable Pump (Omnipod 5 G6 Pod, Gen 5,) misc CHANGE POD EVERY 72 HOURS DIRECTED 3 Active metoprolol succinate XL (Toprol-XL) 100 MG 24 hr tabletIndication s:Essential hypertension TAKE 1 TABLET BY MOUTH EVERY MORNING 90 tablet 4 Active omeprazole (PriLOSEC) [address] Shruti ns:Hypertension, unspecified type TAKE 1 CAPSULE BY MOUTH EVERY MORNING 90 capsule 3 4 Active tamsulosin (Flomax) 0.4 MG 24 hr capsule TAKE 1 CAPSULE BY MOUTH EVERY EVENING 90 capsule 4 Active Additional Information Patient not taking.Reported on 12/10/2023 calcitriol (Rocaltrol) 0.5 MCG capsule Take 0.5 mcg by mouth in the morning. 4 Active Baqsimi One Pack 3 MG/DOSE nasal powder USE 1 SPRAY (3MG) IN ONE NOSTRIL FOR A PATIENT WITH SEVERE HYPOGLYCEMIA WHO IS NOT RESPONSIVE AND UNABLE SELF-TREAT WITH GLUCOSE. AFTERWARDS TURN ON SIDE. MAY REPEAT IN 15MINUTES IF PATIENT DOES NOT RESPOND. 4 Active NIFEdipine XL (Procardia XL) 60 MG 24 hr tablet Take 1 tablet by mouth in the morning. 4 Active oxyCODONE (Roxicodone) 5 MG immediate release tablet Take 1 tablet by mouth if needed in the morning and at bedtime for severe pain. 4 Active gabapentin (Neurontin) 100 MG capsule Take 1 capsule by mouth at bedtime. Active Acetone, Urine, Test (Ketone Test) stripIndications :Diabetic ketoacidosis without coma associated with type 1 diabetes mellitus (CMS/HCC) Insert 1 each into the urethra if needed each day (abdominal pain). USE DIRECTED WHEN BLOOD SUGAR IS OVER 250 OR FOR NAUSEA AND VOMITING THREE TIMES DAILY 100 strip 3 4 Active nortriptyline (Pamelor) 50 MG capsule TAKE 1 CAPSULE BY MOUTH AT BEDTIME 90 capsule 1 4 Active atorvastatin (Lipitor) 80 MG tabletIndication s:Hypertension, unspecified type TAKE 1 TABLET BY MOUTH EVERY MORNING 90 tablet 1 4 Active ezetimibe (Zetia) 10 MG tabletIndication s: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 (CMS/HCC),Type 1 diabetes mellitus with other specified complication (CMS/HCC) TAKE 1 TABLET BY MOUTH EVERY MORNING 90 tablet 1 4 Active cloNIDine (Catapres) 0.1 MG tablet TAKE 1 TABLET BY MOUTH TWICE DAILY IN THE MORNING AND IN THE EVENING 60 tablet 1 4 Active sevelamer carbonate (Renvela) 800 MG tablet TAKE 1 TABLET BY MOUTH THREE TIMES DAILY IN THE MORNING, AT NOON, AND IN THE EVENING WITH MEALS 90 tablet 1 4 Active Viagra 50 MG tabletIndication s:Type 1 diabetes mellitus with other specified complication (CMS/HCC) TAKE 1 TABLET 1 HOUR BEFORE SEXUAL RELATIONS ONCE DAILY NEEDED. 10 tablet 2 12/19/202 4 Active Active Problems Patient Care Coordination No te Formatting of this note migh t be different from the original. C3/CM Mey Weeks RN Problem Noted Date Diagnosed Date DKA (diabetic ketoacidosis) 12/11/2023 Assessment & Plan (12/17/2023 10:31 AM EDT): -Discussed sick management plan for when he has abdominal pain/vomiting/fever -sent rx for urine ketone test strips for pt to use q 4-6 hours when not feeling well or if feeling any of the following sx: SOB, confusion, n/v/d, abdominal pain, fatigue, dry mouth. -Plan to continue f/u with [facility] endocrinology, continue with CGM and insulin pump - there may be some component of gastroparesis (he has chronic LUQ pain) confusing his ability to tell when he is sick versus feeling chronic symptoms Hyperkalemia 12/11/2023 Strep pharyngitis 11/11/2023 Elevated blood pressure reading 11/11/2023 Acute renal failure superimposed on chronic kidn ey disease 11/11/2023 Acute diffuse otitis externa of right ear 2023 Assessment & Plan (10/13/2023 11:59 AM EDT): I will have to treat with systemic antibiotic and mix ear drop antibiotic and steroid Due to eGFR zarina he will do levofloxacin 500mg day one then every other day levofloxacin 250mg until he finish prescription Ciprofloxacin with hydrocortisone ear drops twice a day for 7 days He can take acetaminophen PRN for pain and discomfort ED precaution instructions where reviewed with patient 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 07/13/2023 Abdominal pain 01/13/2023 01/13/2023 Benign enlargement of prostate 01/13/2023 1 03/15/2022 Hypertensive urgency 01/13/2023 01/13/2023 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 03/15/2022 Depressive disorder 03/15/2022 History of heroin abuse 10/12/2020 Cough 06/21/2018 Drowsy 06/21/2018 Insomnia 11/16/2017 Blindness 06/19/2016 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 05/25 Assessment & Plan (12/11/2023 12:05 PM EDT): -BP adequate today at 118/75 -Pt continued to be followed by nephrology, dialysis not indicated at this time d/t kidney function improvement -Will order BMP labs today to monitor kidney function and downtrend creatinine Essential hypertension 06/19/2016 Diabetic polyneuropathy 06/19/2016 Type 1 diabetes mellitus 06/19/2016 Assessment & Plan (12/11/2023 12:06 PM EDT): -A1c 6.6 and BS 201 (after breakfast), pt is asymptomatic today -will continue to measure BG's before and after meals -continue to be followed by [facility] endocrinology, plan to get new CGM monitor, pt has one currently but is getting most updated one -continue with insulin pump, also managed by [facility] endocrinology -I will f/u with [facility] endocrinology to obtain recommendations for gastroparesis tx. Chronic low back pain 06/19/2016 Resolved Problems Problem Noted Date Diagnosed Date Resolved Date End stage renal disease 12/11/202311/23 Stage 3 chronic kidney disease 03/15/2022 06/18/2022 Encounters Date Type Department Care Team Description 03/18/2024 Orders Only GENERIC EXTERNAL DATA DEPARTMENT Provider, Generic External Data 03/10/2024 Orders Only GENERIC EXTERNAL DATA DEPARTMENT Provider, Generic External Data 02/11/2024 3:45 PM EST Office Visit [facility] [address] [place] [address] NameHong MD Type 1 diabetes mellitus with other specified complication (CMS/HCC) (Primary Dx); 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) 01/08/2024 Orders Only GENERIC EXTERNAL DATA DEPARTMENT Provider, Generic External Data 12/23/2023 Refill [facility] [address] [place] [address] Name, MD Hong 12/22/2023 Refill [facility] [address] [place] [address] Name, MD Hong 12/18/2023 Refill [facility] [address] [place] [address] Name, MD Hong 12/17/2023 Orders Only GENERIC EXTERNAL DATA DEPARTMENT Provider, Generic External Data from Last 3 Months Immunizations Name Administration Dates Next Due HepB-CpG 02/19/2023,01/19/2023 Influenza Injectable Quadriv alant Preservative Free IIV4 MDCK 01/30/2020 Influenza injectable quadriv alent IIV4 with preservative 11/30/2018,11/16/2017,01/01/2017 Influenza injectable quadriv alent preservative free 01/14/2023,01/06/2022,12/18/2020 Influenza, seasonal, injecta ble, preservative free 11/11/2023 Pneumococcal Conjugate PCV 20 01/14/2023 Pneumococcal Polysaccharide PPSV23 07/23/2016 Tdap 07/23/2016 Varicella 02/19/2023,01/02/2023,01/30/2020 Social History Tobacco Use Types Packs/Day Years Used Date Smoking Tobacco: Former Cigarettes Tobacco Cessation:Counseling Given: Not Answered Alcohol Use Standard Drinks/Week Comments Not Currently [...] Orientation Straight 12/23/2021 10 :17 AM EDT Last Filed Vital Signs Vital Sign Reading Time Taken Comments Blood Pressure 121/76 02/11/2024 3:50 PM EST Pulse 75 02/11/2024 3:50 PM EST Temperature 35.3 ??C (95.6 ??F) 02/11/2024 3:50 PM ES T Respiratory Rate 18 02/11/2024 3:50 PM EST Oxygen Saturation 98% 12/11/2023 10: 58 AM EDT Inhaled Oxygen Concentration - - Weight 72.5 kg (159 lb 12.8 oz) 02/11/2024 3:50 PM EST Height 172.7 cm (5' 8 ) 02/11/2024 3:50 PM EST Body Mass Index 24.3 02/11/2024 3:50 PM EST Plan of Treatment Health Maintenance Due Date Last Done Comments HIV Screening 1984 Eye Exam 1994 Family Planning (PISQ) 09/28/1999 Hepatitis C Screening 2002 COVID-19 Vaccine ( season) 2023 01/20/2022, 02/06/2021, 06/13/2020, Additional history exists Depression Screening 04/14/2024 04/14/2023, 04/14/19 24 SDOH Screening 04/14/2024 04/14/2023 Diabetes: Hemoglobin A1C 06/10/2024 024, 11/11/2023, 04/14/2023, Additional history exists Diabetes: Foot Exam 07/12/2024 07/13/2023, 07/13/2023, 07/13/2023, Additional history exists Alcohol/Substance Use Screening 12/10/2024 12/11/2023 Lipid Panel 01/07/2025 01/08/2024, 09/0 06/2022, 07/15/2021, Additional history exists Tobacco Screening 02/10/2025 02/11/2024 DTaP/Tdap/Td Vaccines (2 - Td or Tdap) 07/23/2026 07/23/2016 Zoster Vaccines (1 of 2) 2034 RSV Patients and Patients Aged 60 years or older (1 - 1-dose 75+ series) 09/28/2059 Pneumococcal Vaccine: Pediatrics (0 to 5 Years) and At-Risk Patients (6 to 64 Years) Completed 01/14/2023, 07/23/2016 Hepatitis B Vaccines Completed 02/19/2023, 01/20/20 23 Influenza Vaccine Completed 11/11/2023, , 01/06/2022, Additional history exists HIB Vaccines Aged Out No longer eligi ble based on patient's age to complete this topic HPV Vaccines Aged Out No longer eligi ble based on patient's age to complete this topic Hepatitis A Vaccines Aged Out No long er eligible based on patient's age to complete this topic IPV Vaccines Aged Out No longer eligi ble based on patient's age to complete this topic Meningococcal Vaccine Aged Out No merry gurvinder eligible based on patient's age to complete this topic RSV under 20 months Aged Out No longe r eligible based on patient's age to complete this topic Rotavirus Vaccines Aged Out No longer eligible based on patient's age to complete this topic Goals Goal Patient Goal Type Associated Problems Recent Progress Patient-Stated? Author Record your blood pressure once per day Blood Pressure No Puia, Magali, PharmD Blood Pressure < 140/90 Blood Pressure 121/76( 024 3:50 PM EST) No Puia, Magali, PharmD Procedures Procedure Name Priority Date/Time Associated Diagnosis Comments GLUCOSE, WHOLE BLOOD Routine 03/18/2024 3:11 PM EST BASIC METABOLIC PANEL Routine 03/10/2024 9:56 AM EST CBC WITH AUTO DIFFERENTIAL Routine 03/10/2024 9:56 AM EST CBC Routine 03/10/2024 9:56 AM EST PTH, INTACT WITHOUT CALCIUM Routine 02/05/2024 7:55 AM EST BASIC METABOLIC PANEL Routine 02/05/2024 7:55 AM EST CBC WITH AUTO DIFFERENTIAL Routine 02/05/2024 7:55 AM EST PTH, INTACT WITHOUT CALCIUM Routine 01/08/2024 8:02 AM EST PHOSPHATE ( PHOSPHORUS) Routine 01/08/2024 8:02 AM EST BASIC METABOLIC PANEL Routine 01/08/2024 8:02 AM EST CBC WITH AUTO DIFFERENTIAL Routine 01/08/2024 8:02 AM EST LIPID PANEL, STANDARD Routine 01/08/2024 8:02 AM EST Type 1 diabetes mellitus with other specified complication (CMS/HCC) GLUCOSE, WHOLE BLOOD Routine 12/17/2023 1:11 PM EDT POCT GLYCATED HEMOGLOBIN, TOTAL Routine 12/11/2023 11:55 AM EDT Type 1 diabetes mellitus with other specified complication (CMS/HCC) from Last 3 Months or Most Recently Relevant to Health Maintenance Results * Glucose, Whole Blood (03/18/2024 3:11 PM EST) Only the most recent of2 resultswithin the time period is included. [facility] Glucose, Whole Blood 89 60 - 115 mg/dL [facility] Comment:METER #: [id number] Testing performed in the Endocrinology Department [address] , [address], [facility]. 03/18/2024 3:11 PM EST 03/18/2024 3:18 PM EST us Generic External Data Provider LAB BLOOD ORDERAB LES Final Result [facility] [address] [place] [phone] * CBC auto differential (03/10/2024 9:56 AM EST) Only the most recent of3 resultswithin the time period is included. [facility] Neutrophils Percent Auto 59.4 45 - 73 % [facility] Imm Gran Pct Auto 0.2 0.0 - 0.4 % [facility] Lymphocytes Percent Auto 28.3 20 - 40 % [facility] Monocytes Percent Auto 8.3 2 - 11 % [facility] Eosinophils Percent Auto 3.3 0 - 4 % [facility] Basophils Percent Auto 0.5 0 - 2 % [facility] Neutrophils Absolute Auto 3.5 2.0 - 8.3 x10*3/uL [facility] Imm Gran Abs Auto 0.01 0.00 - 0.03 X10*3/uL [facility] Lymphocytes Absolute Auto 1.6 1.2 - 4.9 X10*3/uL [facility] Monocytes Absolute Auto 0.5 0.1 - 1.2 X10*3/uL [facility] Eosinophils Absolute Auto 0.2 0.0 - 0.4 X10*3/uL [facility] Basophils Absolute Auto 0.0 0.0 - 0.2 X10*3/uL [facility] 03/10/2024 9:56 AM EST 03/10/2024 9:56 AM EST us Generic External Data Provider LAB BLOOD ORDERAB LES Final Result Performing Organization Address City/[facility]/ZIP Co de Phone Number [facility] [address] [place] [address] [phone] * (ABNORMAL) CBC (03/10/2024 9:56 AM EST) White Blood Count 5.8 4.8 - 10.8 X10*3/uL [facility] Red Blood Count 3.32(L) 4.60 - 5.80 X10*6/uL [facility] Hemoglobin 9.9(L) 14.0 - 18.0 g/dl [facility] Hematocrit 28.5(L) 42.0 - 52.0 % [facility] Mean Corpuscular Volume 85.8 80.0 - 98.0 fL [facility] Mean Corpuscular Hemoglobin 29.8 27.0 - 33.0 pg [facility] Mean Corpuscular HGB Conc 34.7 31.0 - 36.0 g/dl [facility] Red Cell Distribution Width 11.5 11.0 - 16.0 % [facility] Platelet Count 216 160 - 400 X10*3/uL [facility] Mean Platelet Volume 9.6 9.4 - 12.4 fL [facility] NRBC Pct Auto 0.0 0.0 - 0.2 /100WBC [facility] NRBC Abs Auto 0.000 0.0 - 0.012 X10*3/uL [facility] 03/10/2024 9:5 6 AM EST 03/10/2024 9:56 AM EST us Generic External Data Provider LAB BLOOD ORDERAB LES Final Result Performing Organization Address City/[facility]/ZIP Co de Phone Number [facility] [address] [place] [phone] * (ABNORMAL) Basic Metabolic Panel (03/10/2024 9:56 AM EST) Only the most recent of3 resultswithin the time period is included. Sodium 142 135 - 145 mmol/L [facility] Potassium 4.2 3.3 - 5.1 mmol/L [facility] Chloride 110(H) 96 - 108 mmol/L [facility] Carbon Dioxide 23 22 - 29 mmol/L [facility] Anion Gap 13 12 - 20 [facility] Urea Nitrogen (BUN) 82(H) 9 - 16 mg/dL [facility] Creatinine, Serum 8.52(HH) 0.5 - 1.4 mg/dL [facility] Comment:Critical value for C RE: Results called to and read backby: KANIKA Zuluaga Person calling: ELLIOT Date: 03-10-24 Time: 1056 Estimated Glomerular Filt Rate 7 [facility] Comment:Chronic Kidney Disea se: Estimated GFR < 60 mL/min/1.81t4Llwvcw Kidney Disease: Estimated GFR < 15 mL/min/1.73m2 Glucose 123(H) 60 - 115 mg/dL [facility] Calcium 10.5(H) 8.4 - 10.2 mg/dL [facility] 03/10/2024 9:56 AM EST 03/10/2024 9:56 AM EST us Generic External Data Provider LAB BLOOD ORDERAB LES Final Result [facility] [address] [place] [phone] * PTH, Intact Without Calcium (02/05/2024 7:55 AM EST) Only the most recent of2 resultswithin the time period is included. Parathyroid Hormone, Intact 34.9 8.7 - 77.1 pg/mL [facility] 02/05/2024 7:55 AM EST 02/05/2024 7:55 AM EST us Generic External Data Provider LAB BLOOD ORDERAB LES Final Result Performing Organization Address City/[facility]/ZIP Co de Phone Number [facility] [address] [place] [phone] * (ABNORMAL) Phosphate (As Phosphorus) (01/08/2024 8:02 AM EST) Phosphorus 5.6(H) 2.7 - 4.5 mg/dL [facility] 01/08/2024 8:02 AM EST 01/08/2024 9:14 AM EST Generic External Data Provider LAB BLOOD ORDERAB LES Final Result Performing Organization Address [facility] Co de Phone Number [facility] [address] [place] [phone] * (ABNORMAL) Lipid Panel, Standard (01/08/2024 8:02 AM EST) Triglycerides 127 <150 mg/dL [facility] Comment:Desirable Triglyceri de: less than 150 mg/dLBorderline High Triglyceride 150-199 mg/dLHigh Triglyceride: 200-499 mg/dLVery High Triglyceride: greater than or equal to 5OO mg/dL Cholesterol 136 <200 mg/dL [facility] Comment:Desirable Cholestero l: less than 200 mg/dLBorderline High Cholesterol: 200-239 mg/dLHigh Cholesterol: greater than 239 mg/dL LDL Cholesterol Calculated 71 <100 mg/dL [facility] Comment:Desirable LDL: less than 100 mg/dLNear Optimal/Above Optimal LDL: 110- 129 mg/dLBorderline High LDL: 130-159 mg/dLHigh LDL: 160-189 mg/dLVery High LDL: greater than or equal to 190 mg/dL HDL Cholesterol 40(L) >40 mg/dL [facility] Comment:Desirable HDL: great er than 40 mg/dL Note: This HDL assay may give artificially low results in patients with liver disease. Blood Venous blood specimen / Unknown 01/08/2024 8:02 AM EST 01/08/2024 9:14 AM EST Tammy Yates MD LAB BLOOD ORDERABLES Final Res ult [facility] [address] [place] [phone] * (ABNORMAL) POCT HGB A1C (12/11/2023 11:55 AM EDT) Hemoglobin A1C 6.6(A) 4.0 - 6.0 % QC Media Lot # [id number] Lot# Expiration Date ,052,071 Blood 12/11/2023 11:5 5 AM EDT Tammy Yates MD POINT OF CARE TEST ENTER/EDIT ORDERABLES Final Result from Last 3 Months or Most Recently Relevant to Health Maintenance Insurance studentSN C3 Care Teams Soil Sampler Relationship Specialty Start Date End Date Name, MD Hong [address] [place], [place] [phone] PCP - General Family Medicine 06/18/16 Magali Doty, TimothyD [address], [place] [phone] Pharmacist Internal Medicine 08/15/22
--- OUTSIDE RECORDS SUMMARY | 2024-03-18 16:17 | XMS_ITS | Encounter Summary ---
Author Organization [employer] Address [address] [facility] [address] [place] [address] Care Team Providers Care Boilerhouse Mechanic Name Role Phone Name, Hong FOSS Primary Care Provider [phone] Magali Doty PharmD Unavailable [phone] Reason for Visit * Reason Comments Med Refill Encounter Details Date Type Department Care Team ([facility] st Contact Info) Description 01/11/2023 Refill [facility] [address] [place] [address] Name, MD Hong [address] [place] [address] Essential hypertension Social History Tobacco Use Types Packs/Day Years Used Date Smoking Tobacco: Former Cigarettes Alcohol Use Standard Drinks/Week Comments Not Currently 0 (1 standard drink = 0.6 oz pur e alcohol) Housing Stability Answer Date Recorded What is your housing situation today? I have padminiyazmin cameron 12/15/[address] you li ve. Do you have problems with any of the following? None of the above 12/15/2022 Food Insecurity Answer Date Recorded Within the past 12 months, y ou worried that your food would run out before you got money to buy more: Sometimes True 2022 Within the past 12 months,th e food you bought just didn't last and you didn't have enough money to get more: Sometimes True 12/15/2022 Transportation Answer Date Recorded In the past 12 months, has l ack of transportation kept you from medical appts, meetings, work or from getting things needed for daily living? Yes, it has kept me from medical appointments or getting medications. 12/02/2022 Utilities Answer Date Recorded In the past 12 months, has t he electric, gas, oil or water company threatened to shut off services in your home? No 12/15/2022 Depression Answer Date Recorded Patient Health Questionnaire-2 Score 0 03/25/2022 Sex and Gender Information Value Date Recorded [...] as of this encounter Visit Diagnoses Diagnosis Essential hypertension Unspecified essential hypertension documented in this encounter Care Teams Boilerhouse Mechanic Relationship Specialty Start Date End Date Name, MD Hong [address] [place] [address] PCP - General Family Medicine 06/18/16 Magali Doty PharmD [address] [place] [address] Pharmacist Internal Medicine 08/15/22 documented as of this encounter
--- OUTSIDE RECORDS SUMMARY | 2024-03-18 16:18 | XMS_ITS | Encounter Summary ---
Author Organization [employer] Address [address] [facility] [address] [place] [address] Care Team Providers Care Power Bender Operator Name Role Phone Name, Hong FOSS Primary Care Provider [phone] Magali Doty PharmD Unavailable [phone] Encounter Details Date Type Department Care Team (Late st Contact Info) Description 03/18/2024 Orders Only GENERIC EXTERNAL DATA [...] 3:50 PM EST) No Puia, Magali, PharmD documented as of this encounter Procedures Procedure Name Priority Date/Time Associated Diagnosis Comments GLUCOSE, WHOLE BLOOD Routine 03/18/2024 3:11 PM EST documented in this encounter Results * Glucose, Whole Blood (03/18/2024 3:11 PM EST) Glucose, Whole Blood 89 60 - 115 mg/dL [facility] Comment:METER #: [id number] Testing performed in the Endocrinology Department [address], [address], [facility]. 03/18/2024 3:11 PM EST 03/18/2024 3:18 PM EST us Generic External Data Provider LAB BLOOD ORDERAB LES Final Result [facility] [address] [place] [phone] documented in this encounter Visit Diagnoses Not on filedocumented in this encounter Additional Health Concerns Assessment Noted Time PHQ-9 Depression Total Score: 0 04/14/19 24 1:09 PM EST documented as of this encounter Care Teams Power Bender Operator Relationship Specialty Start Date End Date Name, MD Hong [address] [place] [address] PCP - General Family Medicine 06/18/16 Magali Doty PharmD [address] [place] [address] Pharmacist Internal Medicine 08/15/22 documented as of this encounter
--- OUTSIDE RECORDS SUMMARY | 2024-03-18 16:18 | XMS_ITS | Data Portability ---
Author Organization [place] - [facility] Address [address] [place] [id number] Assessment No assessment recorded. Plan of Treatment Reminders Order Date Submit Date Provider Last Modified By Organization Details Last Modified Time Details Appointments None recorded. Lab CMP, serum or plasma 2020 [facility], [address] [place] [address], [id number], 07:22:26 CBC w/ auto diff 2020 [facility], [address] [place] [address], [phone], 07:22:27 C-reactive protein, quantitati ve, serum or plasma [address], [address] [place] [address], [phone], 13:19:44 TSH, serum, reflex free T4 [address], [address] [place] [address], [phone], 13:19:44 Referral None recorded. Procedures None recorded. Surgeries None recorded. Imaging None recorded. Medication Orders trazodone 50 mg tablet 2020 [facility] [employer], [address] [place], [address], 15:05:36 meclizine 25 mg tablet 2020 021 [facility] [employer], [address] [place], [address], 1 15:04:10 turmeric 450 mg-turmeri c root extract 50 mg capsule 2020 021 [facility] [employer], [address] [place], [address], 15:08:06 ketorolac 30 mg/mL (1 mL) injection solution 2020 jessy ill1 Not available 17:16:26 Patient TargetsNo targets recorded. Patient Instructions Encounter Date Encounter Id Patient Instructions Last Modified By Organization Details Last Modified Time 11/12/2020 [id number] Follow up with pardeep brown in 1 week geoffrey Not available 11/12/2020 15:11:20 Reason for Referral None Reported. Results Created Date Observation Date Name Description Value Unit Range Abnormal Flag Note LastModifiedBy Organization Detail LastModifiedTime 11/13/1911/13/2020 COMPR EHENS HERMELINDA METAB OLIC PANEL glucose 83 mg/dL 65-99 normal Fasti ng refer ence inter galen Not Available [facility] [address], [place], [address], 11/13/2020 07:22:24 11/13/19 21 11/13/2020 COMPR EHENS HERMELINDA METAB OLIC PANEL urea nitrogen (BUN) 10 mg/dL 7-25 normal Not Available [facility] [address], [place], [address], 11/13/2020 07:22:24 11/13/19 21 11/13/2020 COMPR EHENS HERMELINDA METAB OLIC PANEL creatinine 0.68 mg/dL 0.60-1 .35 normal Not Available [facility] [address], [place], [address], 11/13/2020 07:22:24 11/13/19 21 11/13/2020 COMPR EHENS HERMELINDA METAB OLIC PANEL eGFR non-afr. yemeni 123 mL/mi n/1.7 3m2 > or = 60 normal Not Available [facility] [address], [place], [address], 11/13/2020 07:22:24 11/13/19 21 11/13/2020 COMPR EHENS HERMELINDA METAB OLIC PANEL eGFR 142 mL/mi n/1.7 3m2 > or = 60 normal Not Available [facility] [address], [place], [address], 11/13/2020 07:22:24 11/13/19 21 11/13/2020 COMPR EHENS HERMELINDA METAB OLIC PANEL BUN/creatini ne ratio NOT APPLIC ABLE (calc ) 6-22 Not Available [facility] [address], [place], [address], 11/13/2020 07:22:24 11/13/19 21 11/13/2020 COMPR EHENS HERMELINDA METAB OLIC PANEL sodium 139 mmol/ L 135-14 6 normal Not Available [facility] [address], [place], [address], 11/13/2020 07:22:24 11/13/19 21 11/13/2020 COMPR EHENS HERMELINDA METAB OLIC PANEL potassium 4.1 mmol/ L 3.5-5. 3 normal Not Available [facility] [address], [place], [address], 11/13/2020 07:22:24 11/13/19 21 11/13/2020 COMPR EHENS HERMELINDA METAB OLIC PANEL chloride 103 mmol/ L 98-110 normal Not Available [facility] [address], [place], [address], 11/13/2020 07:22:24 11/13/19 21 11/13/2020 COMPR EHENS HERMELINDA METAB OLIC PANEL carbon dioxide 28 mmol/ L 20-32 normal Not Available [facility] [address], [place], [address], 11/13/2020 07:22:24 11/13/19 21 11/13/2020 COMPR EHENS HERMELINDA METAB OLIC PANEL calcium 10.0 mg/dL 8.6-10 .3 normal Not Available [facility] [address], [place], [address], 11/13/2020 07:22:24 11/13/19 21 11/13/2020 COMPR EHENS HERMELINDA METAB OLIC PANEL protein, total 7.7 g/dL 6.1-8. 1 normal Not Available [facility] [address], [place], [address], 11/13/2020 07:22:24 11/13/19 21 11/13/2020 COMPR EHENS HERMELINDA METAB OLIC PANEL albumin 5.2 g/dL 3.6-5. 1 high Not Available [facility] [address], [place], [address], 11/13/2020 07:22:24 11/13/19 21 11/13/2020 COMPR EHENS HERMELINDA METAB OLIC PANEL globulin 2.5 g/dL_ (calc ) 1.9-3. 7 normal Not Available [facility] [address], [place], [address], 11/13/2020 07:22:24 11/13/19 21 11/13/2020 COMPR EHENS HERMELINDA METAB OLIC PANEL albumin/glob ulin ratio 2.1 (calc ) 1.0-2. 5 normal Not Available [facility] [address], [place], [address], 11/13/2020 07:22:24 11/13/19 21 11/13/2020 COMPR EHENS HERMELINDA METAB OLIC PANEL bilirubin, total 0.4 mg/dL 0.2-1. 2 normal Not Available [facility] [facility] [address], [place], [address], 11/13/2020 07:22:24 11/13/19 21 11/13/2020 COMPR EHENS HERMELINDA METAB OLIC PANEL alkaline phosphatase 42 U/L 36-130 normal Not Available [facility] [employer] [facility] [address], [place], [address], 11/13/2020 07:22:24 11/13/1911/13/2020 COMPR EHENS HERMELINDA METAB OLIC PANEL AST 15 U/L 10-40 normal Not Available [facility] [employer] [facility] [address], [place], [address], 11/13/2020 07:22:24 11/13/19 21 11/13/2020 COMPR EHENS HERMELINDA METAB OLIC PANEL ALT 18 U/L 9-46 normal Not Available [employer] [facility] [address], [place], [address], 11/13/2020 07:22:24 11/13/1911/13/2020 TSH W/REF WILNER TO FT4 TSH w/reflex to FT4 1.98 mIU/L 0.40-4 .50 normal Not Available [employer] [facility] [address], [place], [address], 11/13/2020 07:22:27 11/13/1911/13/2020 CBC (INCL UDES DIFF/ PLT) white blood cell count 7.8 thous and/u L 3.8-10 .8 normal Not Available [employer] [facility] [address], [place], [address], 11/13/2020 07:22:27 11/13/1911/1311/13/2020 CBC (INCL UDES DIFF/ PLT) red blood cell count 4.94 nighat on/uL 4.20-5 .80 normal Not Available [facility] [address], [place], [address], 11/13/2020 07:22:27 11/13/19 21 11/13/2020 CBC (INCL UDES DIFF/ PLT) hemoglobin 14.7 g/dL 13.2-1 7.1 normal Not Available [facility] [address], [place], [address], 11/13/2020 07:22:27 11/13/1911/13/2020 CBC (INCL UDES DIFF/ PLT) hematocrit 43.1 % 38.5-5 0.0 normal Not Available [facility] [address], [place], [address], 11/13/2020 07:22:27 11/13/1911/13/2020 CBC (INCL UDES DIFF/ PLT) MCV 87.2 fL 80.0-1 00.0 normal Not Available [facility] [address], [place], [address], 11/13/2020 07:22:27 11/13/19 21 11/13/2020 CBC (INCL UDES DIFF/ PLT) MCH 29.8 pg 27.0-3 3.0 normal Not Available [facility] [address], [place], [address], 11/13/2020 07:22:27 11/13/1911/13/2020 CBC (INCL UDES DIFF/ PLT) MCHC 34.1 g/dL 32.0-3 6.0 normal Not Available [facility] [address], [place], [address], 11/13/2020 07:22:27 09/11/13/2020 CBC (INCL UDES DIFF/ PLT) RDW 13.5 % 11.0-1 5.0 normal Not Available [facility] [address], [place], [address], 11/13/2020 07:22:27 11/13/19 21 11/13/2020 CBC (INCL UDES DIFF/ PLT) platelet count 243 thous and/u L 140-40 0 normal Not Available [facility] [address], [place], [address], 11/13/2020 07:22:27 11/13/1911/13/2020 CBC (INCL UDES DIFF/ PLT) MPV 9.3 fL 7.5-12 .5 normal Not Available [facility] [address], [place], [address], 11/13/2020 07:22:27 11/13/19 21 11/13/2020 CBC (INCL UDES DIFF/ PLT) absolute neutrophils 5554 cells /uL 1500-7 800 normal Not Available [facility] [address], [place], [address], 11/13/2020 07:22:27 11/13/19 21 11/13/2020 CBC (INCL UDES DIFF/ PLT) absolute lymphocytes 1334 cells /uL 850-39 00 normal Not Available [facility] [address], [place], [address], 11/13/2020 07:22:27 11/13/19 21 11/13/2020 CBC (INCL UDES DIFF/ PLT) absolute monocytes 655 cells /uL 200-95 0 normal Not Available [facility] [address], [place], [address], 11/13/2020 07:22:27 11/13/19 21 11/13/2020 CBC (INCL UDES DIFF/ PLT) absolute eosinophils 218 cells /uL 15-500 normal Not Available [facility] [address], [place], [address], 11/13/2020 07:22:27 11/13/19 21 11/13/2020 CBC (INCL UDES DIFF/ PLT) absolute basophils 39 cells /uL 0-200 normal Not Available [facility] [address], [place], [address], 11/13/2020 07:22:27 11/13/19 21 11/13/2020 CBC (INCL UDES DIFF/ PLT) neutrophils 71.2 % normal Not Available [facility] [address], [place], [address], 11/13/2020 07:22:27 11/13/19 21 11/13/2020 CBC (INCL UDES DIFF/ PLT) lymphocytes 17.1 % normal Not Available [facility] [address], [place], [address], 11/13/2020 07:22:27 11/13/19 21 11/13/2020 CBC (INCL UDES DIFF/ PLT) monocytes 8.4 % normal Not Available [facility] [address], [place], [address], 11/13/2020 07:22:27 11/13/1911/13/2020 CBC (INCL UDES DIFF/ PLT) eosinophils 2.8 % normal Not Available [facility] [address], [place], [address], 11/13/2020 07:22:27 11/13/1911/13/2020 CBC (INCL UDES DIFF/ PLT) basophils 0.5 % normal Not Available [facility] [address], [place], [address], 11/13/2020 07:22:27 Result Notes None recorded. Problems No Known Problems Procedures Surgical History Date Name Laterality Status Provider Name and Address Organization Details Recorded Time Hernia Repair completed [facility] 11/12/2020 14:26:35 Imaging Results None recorded. Procedure Notes None recorded. Medical Equipment None Reported. Allergies Allergen ID Allergen Name Allergen Category Reaction Reaction Severity Criticality Documentation Date Start Date Code Code System Note Provider Name and Address Organization Details Recorded Time 1418 Product containin g penicilli n and antibioti c (product) medicatio n swelling Not available Not available 11/12/2020 42285 05 SNOMED [facility] 14:25:51 Medications Name Sig Start Date Stop Date Status Note LastModified by Organization Details LastModified Time trazodone 50 mg tablet TAKE ONE TABLET BY MOUTH ONE TIME DAILY AT BEDTIME active Not Available Not Available No t Available ketorolac 30 mg/mL (1 mL) injection solution 1 ml IM now 021 active Not Available Not Available Not Avai lable meclizine 25 mg tablet TAKE ONE TABLET BY MOUTH TWICE A DAY active Not Available Not Available No t Available turmeric 450 mg-turmeric root extract 50 mg capsule Take 1 capsule by oral route. 021 active Not Available Not Available Not Avai lable Vitals Date Recorded Body height Heart rate Body temperature Body mass index (BMI) Body weight Oxygen saturation Oxygen saturation in Arterial blood by Pulse oximetry Systolic blood pressure Diastolic blood pressure Provider Name and Address Organization Details Last Updated DateTime 170.18 cm 82 /min 97.3 [degF] 24.9 kg/m2 17563.1 9 g 97 % 97 % 111 mm[Hg] 72 mm[Hg] [facility] 14:25:24 Social History Question Answer Notes LastModified by Organizat ion Details LastModified Time Tobacco Smoking Status Never Smoker [facility] 11/12/2020 14:26:26 What Is Your Level Of Alcohol Consumption? None Information not available 11/12/2020 What Was The Date Of Your Most Recent Tobacco Screening? 11/12/2020 Information not available 11/12/2020 Do You Or Have You Ever Used Any Other Forms Of Tobacco Or Nicotine? No Information not available 11/12/2020 Sex: Unknown Functional Status None recorded. Mental Status None recorded. Family History Nothing Reported. Medical History Condition Response Coronary Artery Disease N Other N Gout N Kidney Stones N Blood Diseases N Hyperthyroidism N Breast Cancer N Blood Transfusion N Depression N COPD N Lung Disease N Hypothyroidism N Developmental or Behavioral Disorders N Defects or Inherited Disease N Breast Problem N Difficulty Swallowing N Anesthesia Complications N Meniere's disease N Anxiety Disorder N Muscle, Joint, or Bone Problems N Obesity N Vision or Eye Problems N Arthritis N Polyps N Infertility N Mental Disorder N Cancer N Varicosities N Stroke N Endometriosis N Bladder or Kidney Problems N High Cholesterol N Liver Disease N Headaches N Fibromyalgia N Kidney Disease N Allergies/Hayfever N Heart Problems N Ear or Hearing Problems N Hospitalizations N Thyroid Problems N GI Problems N ADD/ADHD N Skin Problems N Eating Disorder N Anemia N MRSA exposure N Constipation N Mental Illness N Ovarian Cancer N Diabetes N Bedwetting N Seizures/Epilepsy N Tuberculosis N AIDS/HIV N Congestive Heart Failure (CHF) N Eczema N Diverticulitis N Abuse/Domestic Violence N Asthma N Reflux/GERD N Hepatitis N Heart Disease N Pulmonary Embolism N Pre-Eclampsia N Hypertension N Chronic Ear Infections N Osteoporosis N Chicken Pox N Autism Spectrum Disorder (ASD) N Thrombophilias N Past Encounters Encounter ID Performer Location Encounter Start Date Encounter Closed Date Diagnosis/Indication Diagnosis SNOMED-CT Code Diagnosis ICD10 Code Diagnosis Note [id number] Isabel [facility], DO Main Office [address] [place] [phone] 11/12/2020 14:14:01 11/12/2020 16:59:27 Unintentional weight loss 895083795 R63.4 15# wt loss since 40 days after he got his Moderna vaccine Dizziness 100778911 R42 Insomnia 288917827 F51.0 9 Health Concerns Section Related Observation LastModified by Organization Detai ls LastModified Time None Recorded Concern Status LastModified by Organization Details LastModified Time None Recorded Advance Directives Directive None Recorded Payers Encounter Date Sequence Insurance Name Policy Number Policy Matos Covered Member ID Matos Member ID Guarantor Name 11/12/2020 1 *SELF PAY* Cem smiley Fabian Hernandez Notes Date Note Type Note Provider Name and Address Organization Details Recorded Time 11/12/2020 text/html 35 y/o male got his moderna vaccine 40 days ago and he has not felt well since then. He continues to get dizziness, mid back pain, and insomnia. Isabel Hurst, [address] [place], [address], [facility] 11/12/2020 18:14:12
== END 2024-03-18 15:34 | disposition home or self-care (01) ==
PROVIDERS: PCP Internal Medicine Geriatric Medicine; Visit Provider Nurse Practitioner Adult Health
DX: E10.65 Type 1 diabetes mellitus with hyperglycemia (principal)
CPT/HCPCS: 99214

== ENCOUNTER → 2024-03-18 15:01 | Outpatient (BNVA) | payer MEDICAID, SELFPAY | PROVIDERS: PCP Internal Medicine Geriatric Medicine; Visit Provider Nurse Practitioner Adult Health | DX: Z46.81 Encounter for fitting and adjustment of insulin pump (principal); E10.65 Type 1 diabetes mellitus with hyperglycemia; Z79.4 Long term (current) use of insulin | CPT/HCPCS: 82947; 83036; 99212 ==

== ENCOUNTER → 2024-03-26 | Outpatient (BNV) | payer MEDICAID, SELFPAY | PROVIDERS: Visit Provider Internal Medicine Nephrology | DX: N18.6 End stage renal disease (principal) | CPT/HCPCS: 90961 ==

== ENCOUNTER 2024-04-03 21:06 | Emergency (ER) | payer MEDICAID, SELFPAY ==
--- NOTE | ~2024-04-03 | US_ITS ---
CLINICAL HISTORY: pain Venous duplex ultrasound right upper extremity Comparison: None Findings: Accessible deep venous segments are fully compressible with normal Doppler color flow and spectral tracings. IMPRESSION: 1. Negative for right upper extremity deep vein thrombosis. This document has been electronically signed by: José Luis Damon MD, PHD on 04/04/2024 03:24:13
--- NOTE | ~2024-04-03 | XR_ITS ---
CLINICAL HISTORY: pain 3 view right shoulder Comparison: None Findings: Bones intact. No dislocations. No significant loss of joint space or osteophytes. No erosions. No radiopaque foreign body. Calcific radiodensity of the rotator cuff suggests calcific tendinosis. IMPRESSION: Calcific radiodensity of the rotator cuff suggests calcific tendinosis. This document has been electronically signed by: José Luis Damon MD, PHD on 04/04/2024 03:25:40
[2024-04-03 21:50] VITALS: BP 143/80; PULSE 98; RESP 16; TEMP 37.1; O2SAT 94; BMI 24.4
--- OUTSIDE RECORDS SUMMARY | 2024-04-04 00:04 | XMS_ITS | Encounter Summary ---
Author Organization [facility] Address [address] [facility] [address] [place] [address] Phone Care Team Providers Care Mender Knit Goods Name Role Phone Name, Hong FOSS Primary Care Provider [phone] Reason for Referral * Consultation (Routine) - Closed Specialty Diagnoses / Procedures Referred By Contac t Referred To Contact Transplant Surgery Diagnoses Chronic kidney disease, stage 4 (severe) (HCC) Pro Christianson MD Phone: tel: fax: [facility] [address] [place] [address] Phone: tel: Referral ID Status Reason Start Date Expiration Date V isits Requested Visits Authorized [id number] Closed Specialty Services Required 02/25/2023 02/25/2024 1 1 Encounter Details Date Type Department Care Team (Latest Contact Info) Description 02/25/2023 Office Communication [facility] [address] [facility] [address] [place] [id number] Pro Christianson MD [address] [facility] [address] [place] [phone] Chronic kidney disease, stage 4 (severe) (HCC) [...] Primary documented in this encounter Care Teams Mender Knit Goods Relationship Specialty Start Date End Date Name, MD Hong [address] [place] [address] PCP - General 03/05/20 documented as of this encounter
--- OUTSIDE RECORDS SUMMARY | 2024-04-04 00:04 | XMS_ITS | Encounter Summary ---
Author Organization [employer] Address [address] [facility] 7t [place] [address] Care Team Providers Care Doll Wigs Hackler Name Role Phone Name, Hong FOSS Primary Care Provider [phone] Magali Doty PharmD Unavailable [phone] Reason for Visit * Reason Comments Med Refill Encounter Details Date Type Department Care Team ([facility] st Contact Info) Description 01/11/2023 Refill [facility] [address] [place] [address] Name, MD Hong [address] [place] [address] Essential hypertension Social History Tobacco Use Types [...] as of this encounter Plan of Treatment Upcoming Encounters Date Type Department Care Team (Late st Contact Info) Description 06/20/2024 3:15 PM EDT Office Visit [facility] [address] [place] [address] Name, MD Hong [address] [place] [address] documented as of this encounter Goals Goal Patient Goal Type Associated Problems Recent Progress Patient-Stated? Author Record your blood pressure once per day Blood Pressure No Magali Doty, PharmD Blood Pressure < 140/90 Blood Pressure 121/76( 024 3:50 PM EST) No Magali Doty, PharmD documented as of this encounter Visit Diagnoses Diagnosis Essential hypertension Unspecified essential hypertension documented in this encounter Care Teams Doll Wigs Hackler Relationship Specialty Start Date End Date NameHong MD [address] [place] [phone] PCP - General Family Medicine 06/18/16 Magali Doty, PharmD [address] [place] [phone] Pharmacist Internal Medicine 08/15/22 documented as of this encounter
--- OUTSIDE RECORDS SUMMARY | 2024-04-04 00:04 | XMS_ITS | Encounter Summary ---
Author Organization [employer] [facility] Address [address] [place] [address] 7t [place] [address] Care Team Providers Care Stone Spreader Operator Name Role Phone NameHong MD Primary Care Provider [phone] Magali Doty PharmD Unavailable [phone] Reason for Visit * Reason Comments Med Refill Encounter Details Date Type Department Care Team (Late st Contact Info) Description 01/27/2022 Refill [facility] [address] [place] [address] Hong Rodríguez MD [address] [place] [address] Social History Tobacco Use Types Packs/Day Years [...] Description 06/20/2024 3:15 PM EDT Office Visit [facility] [address] [place] [address] Hong Rodríguez MD [address] [place] [address] [phone] documented as of this encounter Visit Diagnoses Not on filedocumented in this encounter Care Teams Stone Spreader Operator Relationship Specialty Start Date End Date Hong Rodríguez MD [address] [place] [address] PCP - General Family Medicine 06/18/16 Magali Doty, TimothyD [address] [place] [address] Pharmacist Internal Medicine 08/15/22 documented as of this encounter
--- OUTSIDE RECORDS SUMMARY | 2024-04-04 00:04 | XMS_ITS | Clinical Summary ---
Author Organization [facility] Address [address] [facility] [address] [place] [address] Phone Care Team Providers Care Tax Services Intern Name Role Phone Name, Hong FOSS Primary Care Provider [phone] Allergies Active Allergy Reactions Criticality Noted Date [...] Insurance [place] Care Teams Tax Services Intern Relationship Specialty Start Date End Date Name, MD Hong [address] [place] [phone] PCP - General 03/05/20
--- OUTSIDE RECORDS SUMMARY | 2024-04-04 00:05 | XMS_ITS | Encounter Summary ---
Author Organization [employer] Address [address] [facility] 7t [place] [address] Care Team Providers Care Stage Director Name Role Phone Name, Hong FOSS Primary Care Provider [phone] Magali Doty PharmD Unavailable [phone] Reason for Visit * Reason Comments Med Refill Encounter Details Date Type Department Care Team ([facility] st Contact Info) Description 09/08/2023 Refill [facility] [address] [place], [place] [phone] Name, MD Hong [address] [place] [address] Social History Tobacco Use Types Packs/Day Years [...] Description 06/20/2024 3:15 PM EDT Office Visit [facility] [address] [place] [phone] Name, MD Hong [address] [place] [address] documented as of this encounter Goals Goal Patient Goal Type Associated Problems Recent Progress Patient-Stated? Author Record your blood pressure once per day Blood Pressure No PuMagali puente, PharmD Blood Pressure < 140/90 Blood Pressure 121/76( 024 3:50 PM EST) No LoraineiaMagali, PharmD documented as of this encounter Visit Diagnoses Not on filedocumented in this encounter Additional Health Concerns Assessment Noted Time PHQ-9 Depression Total Score: 0 04/14/19 24 1:09 PM EST documented as of this encounter Care Teams Stage Director Relationship Specialty Start Date End Date Name, MD Hong [address] [place] [address] PCP - General Family Medicine 06/18/16 LoraineiaMagali, PharmD [address] [place] [address] Pharmacist Internal Medicine 08/15/22 documented as of this encounter
--- OUTSIDE RECORDS SUMMARY | 2024-04-04 00:05 | XMS_ITS | Encounter Summary ---
Author Organization [employer] Address [address] [facility] [address] [place] [address] Care Team Providers Care Church Worker Name Role Phone Name, Hong FOSS Primary Care Provider [phone] Magali Doty PharmD Unavailable [phone] Encounter Details Date Type Department Care [...] Description 06/20/2024 3:15 PM EDT Office Visit [facility] [address] [place] [phone] Name, MD Hong [address] [place] [address] documented as of this encounter Goals Goal Patient Goal Type Associated Problems Recent Progress Patient-Stated? Author Record your blood pressure once per day Blood Pressure No Puia, Magali, PharmD Blood Pressure < 140/90 Blood Pressure 121/76( 024 3:50 PM EST) No PuiaSamMagali, PharmD documented as of this encounter Procedures Procedure Name Priority Date/Time Associated Diagnosis Comments GLUCOSE, WHOLE BLOOD Routine 03/18/2024 3:11 PM EST documented in this encounter Results * Glucose, Whole Blood (03/18/2024 3:11 PM EST) Glucose, Whole Blood 89 60 - 115 mg/dL [facility] Comment:METER #: [id number] Testing performed in the Endocrinology Department [address] , [address], [facility]. 03/18/2024 3:11 PM EST 03/18/2024 3:18 PM EST us Generic External Data Provider LAB BLOOD ORDERAB LES Final Result [facility] [address] [place] [address] [phone] documented in this encounter Visit Diagnoses Not on filedocumented in this encounter Additional Health Concerns Assessment Noted Time PHQ-9 Depression Total Score: 0 04/14/19 1:09 PM EST documented as of this encounter Care Teams Church Worker Relationship Specialty Start Date End Date Name, MD Hong [address] [place] [address] PCP - General Family Medicine 06/18/16 Magali Doty PharmD [address] [place] [address] Pharmacist Internal Medicine 08/15/22 documented as of this encounter
--- OUTSIDE RECORDS SUMMARY | 2024-04-04 00:05 | XMS_ITS | Data Portability ---
Author Organization [place] - [facility] Address [address] [place] [phone] Assessment No assessment recorded. Plan of Treatment Reminders Order Date Submit Date Provider Last Modified By Organization Details Last Modified Time Details Appointments None recorded. Lab CMP, serum or plasma 2020 [facility], [address] [place] [address], [phone], 07:22:26 CBC w/ auto diff 2020 [facility], [address] [place] [address], [phone], 07:22:27 C-reactive protein, quantitati ve, serum or plasma [address], [address] [place] [address], [phone], 13:19:44 TSH, serum, reflex free T4 [address], [address] [place] [address], [phone], 13:19:44 Referral None recorded. Procedures None recorded. Surgeries None recorded. Imaging None recorded. Medication Orders trazodone 50 mg tablet 2020 [place] [facility] [address] [facility], [address] [place], [address], 15:05:36 meclizine 25 mg tablet 2020 021 [facility] [address], [address] [place], [address], 1 15:04:10 turmeric 450 mg-turmeri c root extract 50 mg capsule 2020 021 [email or web address] [facility] [address], [address] [place], [address], 15:08:06 ketorolac 30 mg/mL (1 mL) injection solution 2020 jessy [email or web address] Not available 17:16:26 Patient TargetsNo targets recorded. Patient Instructions Encounter Date Encounter Id Patient Instructions Last Modified By Organization Details Last Modified Time 11/12/2020 [id number] Follow up with pardeep brown in 1 week geoffrey Not available 11/12/2020 15:11:20 Reason for Referral None Reported. Results Created Date Observation Date Name Description Value Unit Range Abnormal Flag Note LastModifiedBy Organization Detail LastModifiedTime 11/13/1911/13/2020 COMPR EHENS HERMELINDA METAB OLIC PANEL glucose 83 mg/dL 65-99 normal Fasti ng refer ence inter galen Not Available [facility] [address], [place], [address], 11/13/2020 07:22:24 11/13/19 21 11/13/2020 COMPR EHENS HERMELINDA METAB OLIC PANEL urea nitrogen (BUN) 10 mg/dL 7-25 normal Not Available [facility] [address], [place], [address], 11/13/2020 07:22:24 11/13/19 21 11/13/2020 COMPR EHENS HERMELINDA METAB OLIC PANEL creatinine 0.68 mg/dL 0.60-1 .35 normal Not Available [facility] [address], [place], [address], 11/13/2020 07:22:24 11/13/19 21 11/13/2020 COMPR EHENS HERMELINDA METAB OLIC PANEL eGFR non-afr. algerian 123 mL/mi n/1.7 3m2 > or = 60 normal Not Available [facility] [address], [place], [address], 11/13/2020 07:22:24 11/13/19 21 11/13/2020 COMPR EHENS HERMELINDA METAB OLIC PANEL eGFR 142 mL/mi n/1.7 3m2 > or = 60 normal Not Available [facility] [address], [place], [address], 11/13/2020 07:22:24 11/13/19 21 11/13/2020 COMPR EHENS HERMELINDA METAB OLIC PANEL BUN/creatini ne ratio NOT APPLIC ABLE (calc ) 6-22 Not Available [facility] [address], [place], [address], 11/13/2020 07:22:24 11/13/19 21 11/13/2020 COMPR EHENS HERMELINDA METAB OLIC PANEL sodium 139 mmol/ L 135-14 6 normal Not Available [facility] [address], [place], [address], 11/13/2020 07:22:24 11/13/19 21 11/13/2020 COMPR EHENS HERMELINDA METAB OLIC PANEL potassium 4.1 mmol/ L 3.5-5. 3 normal Not Available [facility] [address], [place], [address], 11/13/2020 07:22:24 11/13/19 21 11/13/2020 COMPR EHENS HERMELINDA METAB OLIC PANEL chloride 103 mmol/ L 98-110 normal Not Available [facility] [address], [place], [address], 11/13/2020 07:22:24 11/13/19 21 11/13/2020 COMPR EHENS HERMELINDA METAB OLIC PANEL carbon dioxide 28 mmol/ L 20-32 normal Not Available [facility] [address], [place], [address], 11/13/2020 07:22:24 11/13/19 21 11/13/2020 COMPR EHENS HERMELINDA METAB OLIC PANEL calcium 10.0 mg/dL 8.6-10 .3 normal Not Available [facility] [address], [place], [address], 11/13/2020 07:22:24 11/13/19 21 11/13/2020 COMPR EHENS HERMELINDA METAB OLIC PANEL protein, total 7.7 g/dL 6.1-8. 1 normal Not Available [facility] [address], [place], [address], 11/13/2020 07:22:24 11/13/19 21 11/13/2020 COMPR EHENS HERMELINDA METAB OLIC PANEL albumin 5.2 g/dL 3.6-5. 1 high Not Available [facility] [address], [place], [address], 11/13/2020 07:22:24 11/13/19 21 11/13/2020 COMPR EHENS HERMELINDA METAB OLIC PANEL globulin 2.5 g/dL_ (calc ) 1.9-3. 7 normal Not Available [facility] [address], [place], [address], 11/13/2020 07:22:24 11/13/19 21 11/13/2020 COMPR EHENS HERMELINDA METAB OLIC PANEL albumin/glob ulin ratio 2.1 (calc ) 1.0-2. 5 normal Not Available [facility] [address], [place], [address], 11/13/2020 07:22:24 11/13/19 21 11/13/2020 COMPR EHENS HERMELINDA METAB OLIC PANEL bilirubin, total 0.4 mg/dL 0.2-1. 2 normal Not Available [employer] [facility] [address], [place], [address], 11/13/2020 07:22:24 11/13/19 21 11/13/2020 COMPR EHENS HERMELINDA METAB OLIC PANEL alkaline phosphatase 42 U/L 36-130 normal Not Available [facility] [employer] [facility] [address], [place], [address], 11/13/2020 07:22:24 11/13/1911/13/2020 COMPR EHENS HERMELINDA METAB OLIC PANEL AST 15 U/L 10-40 normal Not Available [facility] [employer] [facility] [address], [place], [address], 11/13/2020 07:22:24 11/13/19 21 11/13/2020 COMPR EHENS HERMELINDA METAB OLIC PANEL ALT 18 U/L 9-46 normal Not Available [employer] [facility] [address], [place], [address], 11/13/2020 07:22:24 11/13/1911/13/2020 TSH W/REF WILNER TO FT4 TSH w/reflex to FT4 1.98 mIU/L 0.40-4 .50 normal Not Available [employer] [facility] [address], [place], [address], 11/13/2020 07:22:27 11/13/1911/13/2020 CBC (INCL UDES DIFF/ PLT) white blood cell count 7.8 thous and/u L 3.8-10 .8 normal Not Available [employer] [facility] [address], [place], [address], 11/13/2020 07:22:27 11/13/1911/1311/13/2020 CBC (INCL UDES DIFF/ PLT) red blood cell count 4.94 nighat on/uL 4.20-5 .80 normal Not Available [facility] [address], [place], [address], 11/13/2020 07:22:27 11/13/19 21 11/13/2020 CBC (INCL UDES DIFF/ PLT) hemoglobin 14.7 g/dL 13.2-1 7.1 normal Not Available [facility] [address], [place], [address], 11/13/2020 07:22:27 11/13/1911/13/2020 CBC (INCL UDES DIFF/ PLT) hematocrit 43.1 % 38.5-5 0.0 normal Not Available [facility] [address], [place], [address], 11/13/2020 07:22:27 11/13/1911/13/2020 CBC (INCL UDES DIFF/ PLT) MCV 87.2 fL 80.0-1 00.0 normal Not Available [facility] [address], [place], [address], 11/13/2020 07:22:27 11/13/19 21 11/13/2020 CBC (INCL UDES DIFF/ PLT) MCH 29.8 pg 27.0-3 3.0 normal Not Available [facility] [address], [place], [address], 11/13/2020 07:22:27 11/13/1911/13/2020 CBC (INCL UDES DIFF/ PLT) MCHC 34.1 g/dL 32.0-3 6.0 normal Not Available [facility] [address], [place], [address], 11/13/2020 07:22:27 09/11/13/2020 CBC (INCL UDES DIFF/ PLT) RDW 13.5 % 11.0-1 5.0 normal Not Available [facility] [address], [place], [address], 11/13/2020 07:22:27 11/13/19 21 11/13/2020 CBC (INCL UDES DIFF/ PLT) platelet count 243 thous and/u L 140-40 0 normal Not Available [facility] [address], [place], [address], 11/13/2020 07:22:27 11/13/1911/13/2020 CBC (INCL UDES DIFF/ PLT) MPV 9.3 fL 7.5-12 .5 normal Not Available [facility] [address], [place], [address], 11/13/2020 07:22:27 11/13/19 21 11/13/2020 CBC (INCL UDES DIFF/ PLT) absolute neutrophils 5554 cells /uL 1500-7 800 normal Not Available [facility] [address], [place], [address], 11/13/2020 07:22:27 11/13/19 21 11/13/2020 CBC (INCL UDES DIFF/ PLT) absolute lymphocytes 1334 cells /uL 850-39 00 normal Not Available [facility] [address], [place], [address], 11/13/2020 07:22:27 11/13/19 21 11/13/2020 CBC (INCL UDES DIFF/ PLT) absolute monocytes 655 cells /uL 200-95 0 normal Not Available [facility] [address], [place], [address], 11/13/2020 07:22:27 11/13/19 21 11/13/2020 CBC (INCL UDES DIFF/ PLT) absolute eosinophils 218 cells /uL 15-500 normal Not Available [facility] [address], [place], [address], 11/13/2020 07:22:27 11/13/19 21 11/13/2020 CBC (INCL UDES DIFF/ PLT) absolute basophils 39 cells /uL 0-200 normal Not Available [facility] [address], [place], [address], 11/13/2020 07:22:27 11/13/19 21 11/13/2020 CBC (INCL UDES DIFF/ PLT) neutrophils 71.2 % normal Not Available [facility] [address], [place], [address], 11/13/2020 07:22:27 11/13/19 21 11/13/2020 CBC (INCL UDES DIFF/ PLT) lymphocytes 17.1 % normal Not Available [facility] [address], [place], [address], 11/13/2020 07:22:27 11/13/19 21 11/13/2020 CBC (INCL UDES DIFF/ PLT) monocytes 8.4 % normal Not Available [facility] [address], [place], [address], 11/13/2020 07:22:27 11/13/1911/13/2020 CBC (INCL UDES DIFF/ PLT) eosinophils 2.8 % normal Not Available [facility] [address], [place], [address], 11/13/2020 07:22:27 11/13/1911/13/2020 CBC (INCL UDES DIFF/ PLT) basophils 0.5 % normal Not Available [facility] [address], [place], [address], 11/13/2020 07:22:27 Result Notes None recorded. Problems No Known Problems Procedures Surgical History Date Name Laterality Status Provider Name and Address Organization Details Recorded Time Hernia Repair completed [facility] 11/12/2020 14:26:35 Imaging Results None recorded. Procedure Notes None recorded. Medical Equipment None Reported. Allergies Allergen ID Allergen Name Allergen Category Reaction Reaction Severity Criticality Documentation Date Start Date Code Code System Note Provider Name and Address Organization Details Recorded Time 1418 Product containin g penicilli n and antibioti c (product) medicatio n swelling Not available Not available 11/12/2020 54092 05 SNOMED [facility] 14:25:51 Medications Name Sig Start Date Stop [...] cm 82 /min 97.3 [degF] 24.9 kg/m2 97401.1 9 g 97 % 97 % 111 mm[Hg] 72 mm[Hg] [facility] 14:25:24 Social History Question Answer Notes LastModified by Organizat ion Details LastModified Time Tobacco Smoking Status Never Smoker [facility] 11/12/2020 14:26:26 What Is Your Level Of [...] N Breast Cancer N Blood Transfusion N COPD N Depression N Lung Disease N Hypothyroidism N Defects or Inherited Disease N Developmental or Behavioral Disorders N Breast Problem N Difficulty Swallowing N Anesthesia Complications N Meniere's disease N Anxiety Disorder N Muscle, Joint, or Bone Problems N Obesity N Vision or Eye Problems N Arthritis N Polyps N Infertility N Mental Disorder N Cancer N Varicosities N Stroke N Endometriosis N Bladder or Kidney Problems N High Cholesterol N Liver Disease N Fibromyalgia N Headaches N Kidney Disease N Allergies/Hayfever N Heart [...] SNOMED-CT Code Diagnosis ICD10 Code Diagnosis Note [id number] Isabel Pinto-[facility], DO Main Office [address] [place] [phone] 11/12/2020 14:14:01 11/12/2020 16:59:27 Unintentional weight loss 821219077 R63.4 15# wt loss since 40 days after he got his Moderna vaccine Dizziness 201986738 R42 Insomnia 147980655 F51.0 9 Health Concerns Section Related Observation [...] and insomnia. Isabel Hurst, [address] [place], [address], [facility] 11/12/2020 18:14:12
--- OUTSIDE RECORDS SUMMARY | 2024-04-04 00:05 | XMS_ITS | Encounter Summary ---
Author Organization [employer] Address [address] [facility] [address] [place] [address] Care Team Providers Care Rope Cutter Name Role Phone Name, Hong FOSS Primary Care Provider [phone] Magali Doty PharmD Unavailable [phone] Encounter Details Date Type Department Care [...] Description 06/20/2024 3:15 PM EDT Office Visit [facility] [address] [place] [address] Name, MD Hong [address] [place] [address] documented as of this encounter Goals Goal [...] EST) Sodium 142 135 - 145 mmol/L [facility] Potassium 4.2 3.3 - 5.1 mmol/L [facility] Chloride 110(H) 96 - 108 mmol/L [facility] Carbon Dioxide 23 22 - 29 mmol/L [facility] Anion Gap 13 12 - 20 [facility] Urea Nitrogen (BUN) 82(H) 9 - 16 mg/dL [facility] Creatinine, Serum 8.52(HH) 0.5 - 1.4 mg/dL [facility] Comment:Critical value for C RE: Results called to and read backby: KANIKA Zuluaga Person calling: ELLIOT Date: 03-10-24 Time: 1056 Estimated Glomerular Filt Rate 7 [facility] Comment:Chronic Kidney Disea se: Estimated GFR < 60 mL/min/1.77m1Oljtxo Kidney Disease: Estimated GFR < 15 mL/min/1.73m2 Glucose 123(H) 60 - 115 mg/dL [facility] Calcium 10.5(H) 8.4 - 10.2 mg/dL [facility] 03/10/2024 9:56 AM EST 03/10/2024 9:56 AM EST us Generic External Data Provider LAB BLOOD ORDERAB LES Final Result Performing Organization Address City/State/[facility] Co de Phone Number [facility] [address] [place] [phone] * CBC auto differential (03/10/2024 9:56 AM EST) Neutrophils Percent Auto 59.4 45 - 73 % [facility] Imm Gran Pct Auto 0.2 0.0 - 0.4 % [facility] Lymphocytes Percent Auto 28.3 20 - 40 % [facility] Monocytes Percent Auto 8.3 2 - 11 % [facility] Eosinophils Percent Auto 3.3 0 - 4 % [facility] Basophils Percent Auto 0.5 0 - 2 % [facility] Neutrophils Absolute Auto 3.5 2.0 - 8.3 x10*3/uL [facility] Imm Gran Abs Auto 0.01 0.00 - 0.03 X10*3/uL [facility] Lymphocytes Absolute Auto 1.6 1.2 - 4.9 X10*3/uL [facility] Monocytes Absolute Auto 0.5 0.1 - 1.2 X10*3/uL [facility] Eosinophils Absolute Auto 0.2 0.0 - 0.4 X10*3/uL [facility] Basophils Absolute Auto 0.0 0.0 - 0.2 X10*3/uL [facility] 03/10/2024 9:56 AM EST 03/10/2024 9:56 AM EST us Generic External Data Provider LAB BLOOD ORDERAB LES Final Result [facility] [address] [place] [phone] * (ABNORMAL) CBC (03/10/2024 9:56 AM EST) White Blood Count 5.8 4.8 - 10.8 X10*3/uL [facility] Red Blood Count 3.32(L) 4.60 - 5.80 X10*6/uL [facility] Hemoglobin 9.9(L) 14.0 - 18.0 g/dl [facility] Hematocrit 28.5(L) 42.0 - 52.0 % [facility] Mean Corpuscular Volume 85.8 80.0 - 98.0 fL [facility] Mean Corpuscular Hemoglobin 29.8 27.0 - 33.0 pg [facility] Mean Corpuscular HGB Conc 34.7 31.0 - 36.0 g/dl [facility] Red Cell Distribution Width 11.5 11.0 - 16.0 % [facility] Platelet Count 216 160 - 400 X10*3/uL [facility] Mean Platelet Volume 9.6 9.4 - 12.4 fL [facility] NRBC Pct Auto 0.0 0.0 - 0.2 /100WBC [facility] NRBC Abs Auto 0.000 0.0 - 0.012 X10*3/uL [facility] 03/10/2024 9:56 AM EST 03/10/2024 9:56 AM EST us Generic External Data Provider LAB BLOOD ORDERAB LES Final Result [facility] [address] [place] [phone] documented in this encounter Visit Diagnoses Not on filedocumented in this encounter Additional Health Concerns Assessment Noted Time PHQ-9 Depression Total Score: 0 04/14/19 24 1:09 PM EST documented as of this encounter Care Teams Rope Cutter Relationship Specialty Start Date End Date Name, MD Hong [address] [place] [address] PCP - General Family Medicine 06/18/16 Magali Doty PharmD [address] [place] [phone] Pharmacist Internal Medicine 08/15/22 documented as of this encounter
--- OUTSIDE RECORDS SUMMARY | 2024-04-04 00:05 | XMS_ITS | Clinical Summary ---
Author Organization [employer] Address [address] [place] [address] [address] [place] [address] Care Team Providers Care Bridge Operator Slip Name Role Phone Name, Hong FOSS Primary Care Provider [phone] Magali Doty PharmD Unavailable [phone] Allergies Active Allergy Reactions Criticality Noted [...] dry mouth. -Plan to continue f/u with [facility] endocrinology, continue with CGM and insulin pump [...] after meals -continue to be followed by [facility] endocrinology, plan to get new CGM monitor, pt has one currently but is getting most updated one -continue with insulin pump, also managed by [facility] endocrinology -I will f/u with [facility] endocrinology to obtain recommendations for gastroparesis tx. 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) 01/08/2024 Orders Only GENERIC EXTERNAL DATA DEPARTMENT [...] 02/11/2024 3:50 PM EST Plan of Treatment Upcoming Encounters Date Type Department Care Team (Late st Contact Info) Description 06/20/2024 3:15 PM EDT Office Visit [facility] [address] [place] [phone] Name, MD Hong [address] [place] [address] Health Maintenance Due Date Last Done Comments HIV Screening 1984 Eye Exam 1994 Family Planning (PISQ) 09/28/1999 Hepatitis C Screening 2002 COVID-19 Vaccine ( season) 2023 01/20/2022, 02/06/2021, 06/13/2020, Additional history exists Diabetes: Hemoglobin A1C 03/12/2024 024, 11/11/2023, 04/14/2023, Additional history exists Depression Screening 04/14/2024 04/14/2023, 04/14/19 24 SDOH Screening 04/14/2024 04/14/2023 Diabetes: Foot Exam 07/12/2024 07/13/2023, 07/13/2023, 07/13/2023, [...] 5 Years) and At-Risk Patients (6 to 49) Years) Completed 01/14/2023, 07/23/2016 Hepatitis B Vaccines Completed 02/19/2023, 01/20/20 Influenza Vaccine Completed 11/11/2023, , 01/06/2022, Additional [...] diabetes mellitus with other specified complication (CMS/HCC) POCT GLYCATED HEMOGLOBIN, TOTAL Routine 12/11/2023 11:55 AM EDT Type 1 diabetes mellitus with other specified complication (CMS/HCC) from Last 3 Months or Most Recently Relevant to Health Maintenance Results * Glucose, Whole Blood (03/18/2024 3:11 PM EST) Glucose, Whole Blood 89 60 - 115 mg/dL [facility] Comment:METER #: [id number] Testing performed in the Endocrinology Department [address] , [address], [facility]. 03/18/2024 3:11 PM EST 03/18/2024 3:18 PM EST us Generic External Data Provider LAB BLOOD ORDERAB LES Final Result Performing Organization Address [facility]/ZIP Co de Phone Number [facility] [address] [place] [address] [phone] * CBC auto differential (03/10/2024 9:56 AM EST) Only the most recent of3 resultswithin the time period is included. Neutrophils Percent Auto 59.4 45 - 73 % [facility] Imm Gran Pct Auto 0.2 0.0 - 0.4 % [facility] Lymphocytes Percent Auto 28.3 20 - 40 % [facility] Monocytes Percent Auto 8.3 2 - 11 % [facility] Eosinophils Percent Auto 3.3 0 - 4 % [facility] Basophils Percent Auto 0.5 0 - 2 % [facility] Neutrophils Absolute Auto 3.5 2.0 - 8.3 x10*3/uL [facility] Imm Gran Abs Auto 0.01 0.00 - 0.03 X10*3/uL [facility] Lymphocytes Absolute Auto 1.6 1.2 - 4.9 X10*3/uL [facility] Monocytes Absolute Auto 0.5 0.1 - 1.2 X10*3/uL [facility] Eosinophils Absolute Auto 0.2 0.0 - 0.4 X10*3/uL [facility] Basophils Absolute Auto 0.0 0.0 - 0.2 X10*3/uL [facility] 03/10/2024 9:56 AM EST 03/10/2024 9:56 AM EST Generic External Data Provider LAB BLOOD ORDERAB LES Final Result Performing Organization Address [facility]/ZIP Co de Phone Number [facility] [address] [place] [phone] * (ABNORMAL) CBC (03/10/2024 9:56 AM EST) White Blood Count 5.8 4.8 - 10.8 X10*3/uL [facility] Red Blood Count 3.32(L) 4.60 - 5.80 X10*6/uL [facility] Hemoglobin 9.9(L) 14.0 - 18.0 g/dl [facility] Hematocrit 28.5(L) 42.0 - 52.0 % [facility] Mean Corpuscular Volume 85.8 80.0 - 98.0 fL [facility] Mean Corpuscular Hemoglobin 29.8 27.0 - 33.0 pg [facility] Mean Corpuscular HGB Conc 34.7 31.0 - 36.0 g/dl [facility] Red Cell Distribution Width 11.5 11.0 - 16.0 % [facility] Platelet Count 216 160 - 400 X10*3/uL [facility] Mean Platelet Volume 9.6 9.4 - 12.4 fL [facility] NRBC Pct Auto 0.0 0.0 - 0.2 /100WBC [facility] NRBC Abs Auto 0.000 0.0 - 0.012 X10*3/uL [facility] 03/10/2024 9:56 AM EST 03/10/2024 9:56 AM EST us Generic External Data Provider LAB BLOOD ORDERAB LES Final Result [facility] [address] [place] [address] [phone] * (ABNORMAL) Basic Metabolic Panel (03/10/2024 9:56 AM EST) Only the most recent of3 resultswithin the time period is included. Pathologist [facility] Sodium 142 135 - 145 mmol/L [facility] Potassium 4.2 3.3 - 5.1 mmol/L [facility] Chloride 110(H) 96 - 108 mmol/L [facility] Carbon Dioxide 23 22 - 29 mmol/L [facility] Anion Gap 13 12 - 20 [facility] Urea Nitrogen (BUN) 82(H) 9 - 16 mg/dL [facility] Creatinine, Serum 8.52(HH) 0.5 - 1.4 mg/dL [facility] Comment:Critical value for C RE: Results called to and read backby: KANIKA Zuluaga Person calling: ELLIOT Date: 03-10-24 Time: 1056 Estimated Glomerular Filt Rate 7 [facility] Comment:Chronic Kidney Disea se: Estimated GFR < 60 mL/min/1.32s3Urowpi Kidney Disease: Estimated GFR < 15 mL/min/1.73m2 Glucose 123(H) 60 - 115 mg/dL [facility] Calcium 10.5(H) 8.4 - 10.2 mg/dL [facility] 03/10/2024 9:56 AM EST 03/10/2024 9:56 AM EST us Generic External Data Provider LAB BLOOD ORDERAB LES Final Result Performing Organization Address [facility] Co de Phone Number [facility] [address] [place] [phone] * PTH, Intact Without Calcium (02/05/2024 7:55 AM EST) Only the most recent of2 resultswithin the time period is included. Parathyroid Hormone, Intact 34.9 8.7 - 77.1 pg/mL [facility] 02/05/2024 7:55 AM EST 02/05/2024 7:55 AM EST Generic External Data Provider LAB BLOOD ORDERAB LES Final Result Performing Organization Address City/[facility] Co de Phone Number [facility] [address] [place] [phone] * (ABNORMAL) Phosphate (As Phosphorus) (01/08/2024 8:02 AM EST) Phosphorus 5.6(H) 2.7 - 4.5 mg/dL [facility] 01/08/2024 8:02 AM EST 01/08/2024 9:14 AM EST us Generic External Data Provider LAB BLOOD ORDERAB LES Final Result Performing Organization Address [facility] Co de Phone Number [facility] [address] [place] [phone] * (ABNORMAL) Lipid Panel, Standard (01/08/2024 8:02 AM EST) Triglycerides 127 <150 mg/dL [facility] Comment:Desirable Triglyceri de: less than 150 mg/dLBorderline High Triglyceride 150-199 mg/dLHigh Triglyceride: 200-499 mg/dLVery High Triglyceride: greater than or equal to 5OO mg/dL Cholesterol 136 <200 mg/dL [facility] Comment:Desirable Cholestero l: less than 200 mg/dLBorderline High Cholesterol: 200-239 mg/dLHigh Cholesterol: greater than 239 mg/dL LDL Cholesterol Calculated 71 <100 mg/dL [facility] Comment:Desirable LDL: less than 100 mg/dLNear Optimal/Above Optimal LDL: 110- 129 mg/dLBorderline High LDL: 130-159 mg/dLHigh LDL: 160-189 mg/dLVery High LDL: greater than or equal to 190 mg/dL HDL Cholesterol 40(L) >40 mg/dL [facility] Comment:Desirable HDL: great er than 40 mg/dL Note: This HDL assay may give artificially low results in patients with liver disease. Blood Venous blood specimen / Unknown 01/08/2024 8:02 AM EST 01/08/2024 9:14 AM EST us Tammy Yates MD LAB BLOOD ORDERABLES Final Res ult Performing Organization Address [facility]/ZIP Co de Phone Number [facility] [address] [place] [phone] * (ABNORMAL) POCT HGB A1C (12/11/2023 11:55 AM EDT) Hemoglobin A1C 6.6(A) 4.0 - 6.0 % QC Media Lot # [id number] Lot# Expiration Date [id number] Blood 12/11/2023 11:5 5 AM EDT Tammy Yates MD POINT OF CARE TEST ENTER/EDIT ORDERABLES Final Result from Last 3 Months or Most Recently Relevant to Health Maintenance Insurance [employer] C3 Care Teams Bridge Operator Slip Relationship Specialty Start Date End Date Name, MD Hong [address] [place] [phone] PCP - General Family Medicine 06/18/16 Magali Doty, Vasyl [address] [place] [phone] Pharmacist Internal Medicine 08/15/22
--- OUTSIDE RECORDS SUMMARY | 2024-04-04 00:05 | XMS_ITS | Encounter Summary ---
Author Organization [employer] Address [address] [facility] [address] [place] [address] Care Team Providers Care Cylinder Valve Repairer Name Role Phone Name, Hong FOSS Primary Care Provider [phone] Magali Doty PharmD Unavailable [phone] Reason for Visit * Reason Comments Med Refill Encounter Details Date Type Department Care Team ([facility] st Contact Info) Description 09/13/2023 Refill [facility] [address] [place], [place] [phone] Name, MD Hong [address] [place] [address] Type 1 diabetes mellitus with other specified [...] Description 06/20/2024 3:15 PM EDT Office Visit [facility] [address] [place] [phone] Name, MD Hong [address] [place] [phone] documented as of this encounter Goals Goal Patient Goal Type Associated Problems Recent Progress Patient-Stated? Author Record your blood pressure once per day Blood Pressure No Magali Doty, PharmD Blood Pressure < 140/90 Blood Pressure 121/76( 024 3:50 PM EST) No Magali Doty, PharmD documented as of this encounter Visit Diagnoses Diagnosis Type 1 diabetes mellitus with other specified complication ([facility]) documented in this encounter Additional Health Concerns Assessment Noted Time PHQ-9 Depression Total Score: 0 04/14/19 24 1:09 PM EST documented as of this encounter Care Teams Cylinder Valve Repairer Relationship Specialty Start Date End Date NameHong MD [address] [place] [phone] PCP - General Family Medicine 06/18/16 Magali Doty, PharmD [address] [place] [phone] Pharmacist Internal Medicine 08/15/22 documented as of this encounter
--- OUTSIDE RECORDS SUMMARY | 2024-04-04 00:05 | XMS_ITS | Encounter Summary ---
Author Organization [employer] Address [address] [facility] [address] [place] [address] Care Team Providers Care Cutter Inspector Name Role Phone Name, Hong FOSS Primary Care Provider [phone] Magali Doty PharmD Unavailable [phone] Reason for Visit * Reason Onset Date Comments [employer] Services 09/08/2023 Encounter Details Date Type Department Care Team ([facility] st Contact Info) Description 09/08/2023 Telephone [facility] [address] [place], [place] [phone] Name, MD Hong [address] [place] [address] [employer] Services Social History Tobacco Use Types Packs/Day [...] patricia to inform that pt. Or daycare worker has to call for [employer] service ( List is below ) , they will evaluate pt. For [employer] service and will send documents to PCP for sign. No answer. LVM to call back on [phone]. [facility] [address] [place] [phone] [facility] [address] [place] [address] A [facility] Nursing [facility] (Not accepted by [facility]) [address] [phone] * Telephone Encounter - Shantal Chavarria - 09/08/2023 1:17 PM EDT Tc from [facility] stating she received a phone call from [facility],. * Telephone Encounter - Colton Herrera RN - 09/08/2023 1:16 PM EDT T/C to [phone] through [employer] interpreters id - [id number] for below message , No answer.voice mailbox is full, not able to LVM. * Telephone Encounter - Solomon Trevino - 09/08/2023 12:17 PM EDT Tc from the patients spouse requesting [employer] services for the patient states the patient should not be alone due to conditions documented in this encounter Plan of Treatment Upcoming Encounters Date Type Department Care Team (Late st Contact Info) Description 06/20/2024 3:15 PM EDT Office Visit [facility] [address] [place] [address] Name, MD Hong [address] [place] [address] documented as of this encounter Goals Goal Patient Goal Type Associated Problems Recent Progress Patient-Stated? Author Record your blood pressure once per day Blood Pressure No Puia, Magali, PharmD Blood Pressure < 140/90 Blood Pressure 121/76( 024 3:50 PM EST) No Puia, Magali, PharmD documented as of this encounter Visit Diagnoses Not on filedocumented in this encounter Additional Health Concerns Assessment Noted Time PHQ-9 Depression Total Score: 0 04/14/19 24 1:09 PM EST documented as of this encounter Care Teams Cutter Inspector Relationship Specialty Start Date End Date Name, MD Hong [address] [place] [phone] PCP - General Family Medicine 06/18/16 Puia, Magali, PharmD [address] [place] [phone] Pharmacist Internal Medicine 08/15/22 documented as of this encounter
[2024-04-04 00:16] VITALS: BP 143/76; PULSE 90; RESP 16; TEMP 36.6; O2SAT 94
[2024-04-04] MEDS: Acetaminophen 325 MG TABLET 975 MG PO (01:25)
--- NOTE | 2024-04-04 01:30 | PC.NURSE ---
Pt medicated per MAR, awaiting imaging, aware of plan of care.
--- NOTE | 2024-04-04 02:50 | ED.EXTPRO ---
HPI - Extremity Problem General Chief complaint: Extremity Problem Stated complaint: right shoulder pain Time Seen by Provider: 04/04/24 00:12 Source: patient and family Limitations: language barrier History of Present Illness ED Provider: Lillie Jo PA-C HPI Narrative: 38-year-old male with a history of end-stage renal disease yet to start hemodialysis with new AV fistula to the left arm, diabetes, diabetic retinopathy, who presents with a atraumatic right shoulder pain x2 days. Pain originates in right shoulder radiates upward to neck and down the arm. Pain worse with movement and palpation of the anterior shoulder. Patient denies repetitive activity, trauma, fall. Denies weakness or paresthesia. Denies concurrent neck pain or headache. Denies swelling. Denies overlying warmth or erythema of the shoulder joint, no fevers. Related Data Home Medications ?Medication ?Instructions ?Recorded ?Confirmed omeprazole 40 mg capsule,delayed 40 mg PO DAILY@0630 01/04/20 03/23/24 release hydralazine 100 mg tablet 100 mg PO TID 05/13/22 03/23/24 metoprolol succinate 100 mg 100 mg PO DAILY 02/10/23 03/23/24 tablet,extended release 24 hr nortriptyline 50 mg capsule 50 mg PO BEDTIME 03/09/23 03/23/24 tamsulosin 0.4 mg capsule 0.4 mg PO BEDTIME 08/04/23 03/23/24 acetaminophen 500 mg tablet 500 mg PO Q8H PRN moderate pain 11/30/23 03/23/24 ezetimibe 10 mg tablet 10 mg PO DAILY 11/30/23 03/23/24 Previous Rx's ?Medication ?Instructions ?Recorded atorvastatin 80 mg tablet 80 mg PO DAILY #30 tabs 12/12/20 insulin pump cartridge,automated #1 ea 02/19/22 dose,BT with controller subcutaneous (Omnipod 5 G6 Intro Kit (Gen 5) subcutaneous cartridge with controller) nifedipine 60 mg tablet,extended 60 mg PO DAILY #60 tabs 11/26/23 release 24 hr (Procardia XL) oxycodone 5 mg tablet 5 mg PO BID PRN pain #6 tabs 12/02/23 acetone (urine) test (Ketone Urine #25 ea 12/17/23 Test strips) insulin aspart U-100 100 unit/mL See Rx Instructions continuous 01/06/24 subcutaneous solution subcutaneous infusion DAILY 30 days #30 mL clonidine HCl 0.1 mg tablet 0.1 mg PO BID PRN For SBP > 140 01/11/24 #60 tabs pen needle, diabetic 32 gauge x #100 ea 02/01/24 (BD Ultra-Fine Shannan Pen Needle) insulin pump cart,auto,BT,G6/7 #10 ea 03/01/24 (Omnipod 5 G6-G7 Pods (Gen 5) subcutaneous cartridge) gabapentin 100 mg capsule 100 mg PO BEDTIME #90 caps 03/21/24 methylprednisolone 4 mg tablets in 4 mg PO QAM #1 ea 04/04/24 a dose pack (Medrol (Jay)) Allergies Allergy/AdvReac Type Severity Reaction Status Date / Time losartan Allergy Gastrointestinal Verified 04/03/24 21:56 Upset valsartan AdvReac Unknown GI problems Verified 04/03/24 21:56 Review of Systems Review of Systems: Yes all other systems are reviewed and are negative Constitutional: Constitutional: Denies fatigue, Denies fever(s) and Denies headache(s) ENT: Denies dizziness, Denies headache(s) and Denies neck pain Cardiovascular: Cardiovascular: Denies chest pain Musculoskeletal: Musculoskeletal: Denies back pain, Reports arthralgias, Denies joint swelling, Denies neck pain, Denies numbness and Denies tingling Integumentary/Breasts: Skin/Breast: Denies erythema Neurologic: Denies dizziness, Denies headache(s), Denies numbness and Denies tingling Endocrine: Endocrine: Denies fatigue PMF Past Medical History Attestation statement: The following information was validated with the patient. Medical History (Updated 04/04/24 @ 03:49 by AJITH Richards) Hypertensive urgency CKD (chronic kidney disease) stage 4, GFR 15-29 ml/min Hypertensive nephrosclerosis Diabetic gastroparesis Pancreatitis Vitamin D deficiency Hypocalcemia Background diabetic retinopathy associated with type 2 diabetes mellitus Diabetes type 1, uncontrolled Hemangioma of liver Legally blind Acid reflux Sciatica Gastritis Polyneuropathy Essential hypertension Hyperlipidemia LDL goal <70 Surgical History History of surgery Hx of endoscopy Hx of circumcision Hx of appendectomy Hx of eye surgery Family History Family History Father Diabetes mellitus Mother Diabetes mellitus Maternal Grandfather Diabetes mellitus Maternal Grandmother Diabetes mellitus Social History Social History Household Members: Spouse Household Members Other:: and girlfriend Housing: House Do you presently have visiting nurse or other home services: Yes ([employer]) Alcohol intake: former Comment: refusing fall risk interventions. Patient Tobacco Use Status: Former Tobacco user Second Hand Smoke Exposure: No Use of substances other than those prescribed or required for medical reasons: No Substance Use Type: Marijuana Advance Directives: Yes Advance Directives on File: Yes Advance Directives Date on File: 04/13/20 service: No Current occupational status: disabled Physical Exam Vital Signs: Vital Signs: Last Vital Signs Temp 98 F 04/04/24 00:16 Pulse 90 04/04/24 00:16 Resp 16 04/04/24 00:16 BP 143/76 H 04/04/24 00:16 Pulse Ox 94 04/04/24 00:16 O2 Del Method Room Air 04/04/24 00:16 BMI result Body Mass Index 24.4 Const: Other: Alert, Orientation/consciousness: patient oriented x3 Resp: Other: Nonlabored respiration Cardio: Other: Normal peripheral perfusion both radial and ulnar pulses are +2, the limb is warm and well perfused there was no edema no swelling along the length of the right upper extremity Skin: Other: Warm dry no rash Neuro: Other: With the exception of CN II General: patient oriented x3, no focal motor deficits and CN's II-XI intact bilaterally Extrem: Other: There was no warmth or erythema noted over the shoulder joint, he is able to move it, however it is painful, palpable tenderness to palpation within bicipital groove Psych: Other: Cooperative Medications Administered Discontinued Medications Generic Name Dose Route Start Last Admin Trade Name Freq PRN Reason Stop Dose Admin Acetaminophen 975 mg 04/04/24 00:55 04/04/24 01:25 Acetaminophen 325 Mg Tablet PO 04/04/24 00:56 975 mg ONCE ONE Administration Medical Decision Making Medical Decision Making MDM Narrative: 38-year-old male with a history of end-stage renal disease yet to start hemodialysis with new AV fistula to the left arm, diabetes, diabetic retinopathy, who presents with a atraumatic right shoulder pain x2 days. Pain originates in right shoulder radiates upward to neck and down the arm. Pain worse with movement and palpation of the anterior shoulder. Patient denies repetitive activity, trauma, fall. Denies weakness or paresthesia. Denies concurrent neck pain or headache. Denies swelling. Denies overlying warmth or erythema of the shoulder joint, no fevers. Problem: Poorly controlled diabetes, end-stage renal History: Per patient I have considered the following differential diagnoses: Fracture, dislocation, self calcific tendonitis, septic joint, DVT, cervical radiculopathy, arterial occlusion Plan: I have low suspicion for fracture or dislocation given there has been no trauma there was no deformity. We will obtain an x-ray. He does have focal pain over the bicipital groove, perhaps he has developed a calcific tendonitis. He does not have exam findings that are consistent with a septic joint. There was no objective swelling to suggest DVT, however I will order an ultrasound. He does not have discrete neck pain radiating down the arm to suggest a cervical radiculopathy, and he is not having any numbness or tingling. He is neurovascularly intact, the limb is warm and well perfused with palpable distal pulses, this is not an arterial occlusion. I have independently reviewed the following tests: X-ray right shoulder: IMPRESSION: Calcific radiodensity of the rotator cuff suggests calcific tendinosis. This document has been electronically signed by: José Luis Damon MD, PHD on 04/04/2024 03:25:40 A DVT study right upper extremity:IMPRESSION: 1. Negative for right upper extremity deep vein thrombosis. This document has been electronically signed by: José Luis Damon MD, PHD on 04/04/2024 03:24:13 Discharge Plan Discharge Clinical Impression: Calcific tendinitis of right shoulder Patient Disposition: Home, Self-Care Instructions: Rotator Cuff Tendinitis (ED), Calcific Tendinitis (ED) Additional Instructions: You were found to have calcific tendinitis involving the rotator cuff. See home care instructions. You require orthopedic follow up. I will be providing you with a contact, call tomorrow to make an appointment for further assessment. Use the medrol dose pack as directed, this is an antiinflammatory. You can follow up with your primary care provider as well. The ultrasound of the right upper extremity was negative for clot. Prescriptions: New methylprednisolone [Medrol (Jay)] 4 mg tablets,dose pack 4 mg PO QAM Qty: 1 0RF No Action atorvastatin 80 mg tablet 80 mg PO DAILY Qty: 30 6RF (DME) Omnipod 5 G6 Intro Kit (Gen 5) Cartridge See Rx Instructions .Route Qty: 1 4RF Rx Instructions: As directed insulin aspart U-100 100 unit/mL solution See Rx Instructions continuous subcutaneous infusion DAILY 30 Days Qty: 30 11RF Rx Instructions: up to 70 units daily via insulin pump via continuous subcutaneous infusion daily; (DME) pen needle, diabetic [BD Ultra-Fine Shannan Pen Needle] 32 gauge x 5/32 needle See Rx Instructions .ROUTE QID Qty: 100 3RF Rx Instructions: As directed prn pump failure up to 4 times daily (DME) Omnipod 5 G6-G7 Pods (Gen 5) Cartridge See Rx Instructions .ROUTE .COMPLEX Qty: 10 2RF Dose Instruction: CHANGE EVERY 72 HOURS DIRECTED Rx Instructions: CHANGE EVERY 72 HOURS DIRECTED gabapentin 100 mg capsule 100 mg PO BEDTIME Qty: 90 0RF nifedipine [Procardia XL] 60 mg tablet extended release 24hr 60 mg PO DAILY Qty: 60 0RF metoprolol succinate 100 mg tablet extended release 24 hr 100 mg PO DAILY Rx Instructions: take with the 50mg acetaminophen 500 mg tablet 500 mg PO Q8H PRN (Reason: moderate pain) ezetimibe 10 mg tablet 10 mg PO DAILY oxycodone 5 mg tablet 5 mg PO BID PRN (Reason: pain) Qty: 6 0RF Rx Instructions: Partial Fill upon patient request. omeprazole 40 mg capsule,delayed release(DR/EC) 40 mg PO DAILY@0630 hydralazine 100 mg tablet 100 mg PO TID nortriptyline 50 mg capsule 50 mg PO BEDTIME tamsulosin 0.4 mg capsule 0.4 mg PO BEDTIME (DME) Ketone Urine Test Strip See Rx Instructions .ROUTE .MEDSUPPLY Qty: 25 3RF Rx Instructions: Prn glucose over 250, nausea or vomiting, tid clonidine HCl 0.1 mg tablet 0.1 mg PO BID PRN (Reason: For SBP > 140) Qty: 60 0RF Protocol: Hold for SBP< HOLD for SBP < : 90 Referrals: Cyril Nguyen MD [Physician] - (Right rotator cuff calcific tendinitis) Print Language: Macanese
[2024-04-04 04:00] VITALS: BP 150/87; PULSE 94; RESP 16; TEMP 36.6; O2SAT 94
[2024-04-04] MEDS: methylPREDNISolone 4 MG TABLET 8 MG PO (04:15)
[2024-04-04 04:19] VITALS: BP 150/87; PULSE 94; RESP 16; TEMP 36.6; O2SAT 94
== END 2024-04-04 04:19 | disposition home or self-care (01) ==
PROVIDERS: Emergency Provider Emergency Medicine
DX: M75.31 Calcific tendinitis of right shoulder (principal); M25.511 Pain in right shoulder; M79.601 Pain in right arm; E10.22 Type 1 diabetes mellitus with diabetic chronic kidney disease; I12.0 Hypertensive chronic kidney disease with stage 5 chronic kidney disease or end stage renal disease; N18.6 End stage renal disease
CPT/HCPCS: 73030; 93971; 99284

== ENCOUNTER → 2024-04-04 00:16 | Outpatient (BNV) | payer MEDICAID, SELFPAY | PROVIDERS: Emergency Provider Emergency Medicine; Visit Provider General Practice | DX: M75.31 Calcific tendinitis of right shoulder (principal); M25.511 Pain in right shoulder | CPT/HCPCS: 73030; 93971 ==

== ENCOUNTER 2024-04-06 03:34 | Inpatient (IN) | payer MEDICAID, SELFPAY ==
[2024-04-06] VITALS (28 sets, daily range): BP systolic 123–236; BP diastolic 60–126; PULSE 110–124; RESP 12–26; TEMP 36.6–37.6; O2SAT 19–100; BMI 24.3
--- NOTE | ~2024-04-06 | CT_ITS ---
EXAMINATION: CT HEAD WITHOUT IV CONTRAST HISTORY: altered mental status. TECHNIQUE: Unenhanced helical CT of the head was performed per standard departmental protocol. Coronal and sagittal reformats of the head were also evaluated. One or more of the following techniques was used for dose reduction: Automated exposure control, adjustment of the mA and/or kV according to patient size, use of iterative reconstruction technique. DLP: 1025 mGy-cm COMPARISON: Comparison is made with the prior examination dated 08/06/2021. FINDINGS: BRAIN: The brain parenchyma is unremarkable. There is normal gill/white differentiation. The ventricular system is normal in size and configuration. There is no mass effect or midline shift. No intra- or extra-axial fluid collections are identified. SINUSES: The visualized paranasal sinuses are clear. Again seen is fluid in the bilateral mastoid air cells. ORBITS: Again seen is calcification of the bilateral globes. BONES/SOFT TISSUES: The extracranial soft tissues are unremarkable. The calvarium is intact. No suspicious lytic or sclerotic lesions. CT/CT head/brain wo IV con IMPRESSION: No acute intracranial abnormality. Electronically signed by: Bob Bob MD 04/06/2024 10:03 AM UNIQUE
--- NOTE | ~2024-04-06 | XR_ITS ---
EXAMINATION: XR CHEST 1 VIEW HISTORY: hypoxic COMPARISON: Comparison is made with the prior examination performed earlier in the day at 5:58 AM FINDINGS: A single AP portable view of the chest performed at 10:35 AM is submitted. There are diffusely increased interstitial opacities with curly B-lines. There are confluent airspace opacities in the lower lobes, suggestive of pulmonary edema. There is no pleural effusion, pneumothorax, or pulmonary vascular congestion. The heart is normal in size. The bones are intact. XR/XR chest 1V IMPRESSION: Findings suggestive of pulmonary edema. Electronically signed by: Bob Bob MD 04/06/2024 10:50 AM [facility] [place]
--- NOTE | ~2024-04-06 | XR_ITS ---
CLINICAL HISTORY: sob 1 view chest x-ray. Comparison: CR/SR - XR CHEST 1V - 11/21/23 10:45 EDT Findings: Normal lung volumes. Bilateral interstitial opacities and bronchial wall thickening new airspace disease right lower lobe. No pneumothorax or pleural effusion. Heart size normal. No midline shift or tracheal deviation. No acute fracture. Impression: 1. Normal cardiac silhouette. Bilateral interstitial and bronchial wall thickening. New airspace disease right lower lobe This document has been electronically signed by: Ehsan Blair MD on 04/06/2024 06:05:25
[2024-04-06 04:20] LABS: Glucose, Whole Blood 53 mg/dL (60-115)
--- OUTSIDE RECORDS SUMMARY | 2024-04-06 04:30 | XMS_ITS | Encounter Summary ---
Author Organization [employer] Address [address] [place] [address] Care Team Providers Care Label Stitcher Name Role Phone Name, Hong FOSS Primary Care Provider [phone] Magali Doty PharmD Unavailable [phone] Encounter Details Date Type Department Care Team (Late st Contact Info) Description 04/06/2024 Orders Only GENERIC EXTERNAL DATA DEPARTMENT Provider, [...] Description 06/20/2024 3:15 PM EDT Office Visit [facility] [address] [place] [address] Name, MD Hong [address] [place] [address] documented as of this encounter Goals Goal Patient Goal Type Associated Problems Recent Progress Patient-Stated? Author Record your blood pressure once per day Blood Pressure No PuiaJaninasa, PharmD Blood Pressure < 140/90 Blood Pressure 121/76( 024 3:50 PM EST) No Janina Dotysa, PharmD documented as of this encounter Procedures Procedure Name Priority Date/Time Associated Diagnosis Comments GLUCOSE, WHOLE BLOOD Routine 04/06/2024 4:15 AM EST documented in this encounter Results * (ABNORMAL) Glucose, Whole Blood (04/06/2024 4:15 AM EST) Glucose, Whole Blood 53(LL) 60 - 115 mg/dL [facility] Comment:METER #: [id number] 04/06/2024 4:15 AM EST 04/06/2024 4:19 AM EST us Generic External Data Provider LAB BLOOD ORDERAB LES Final Result [facility] [address] [place] [address] [phone] documented in this encounter Visit Diagnoses Not on filedocumented in this encounter Additional Health Concerns Assessment Noted Time PHQ-9 Depression Total Score: 0 04/14/19 24 1:09 PM EST documented as of this encounter Care Teams Label Stitcher Relationship Specialty Start Date End Date Name, MD [address] [place] [address] PCP - General Family Medicine 06/18/16 Magali Doty PharmD [address] [place] [address] Pharmacist Internal Medicine 08/15/22 documented as of this encounter
--- OUTSIDE RECORDS SUMMARY | 2024-04-06 04:30 | XMS_ITS | Clinical Summary ---
Author Organization [employer] Address [address] [place] [address] [address] [place] [address] Care Team Providers Care Nursery Technician Name Role Phone Name, Hong FOSS Primary Care Provider [phone] Magali Doty PharmD Unavailable [phone] Allergies Active Allergy Reactions Criticality Noted [...] dry mouth. -Plan to continue f/u with [facility] endocrinology, continue with CGM and insulin [...] after meals -continue to be followed by [facility] endocrinology, plan to get new CGM monitor, pt has one currently but is getting most updated one -continue with insulin pump, also managed by [facility] endocrinology -I will f/u with [facility] endocrinology to obtain recommendations for gastroparesis tx. Chronic low back pain 06/19/2016 Resolved Problems Problem Noted Date Diagnosed Date Resolved Date End stage renal disease 12/11/202311/23 Stage 3 chronic kidney disease 03/15/2022 06/18/2022 Encounters Date Type Department Care Team Description 04/06/2024 Orders Only GENERIC EXTERNAL DATA DEPARTMENT Provider, Generic External Data 04/04/2024 Orders Only [facility] External Provider, [facility] 03/18/2024 Orders Only GENERIC EXTERNAL DATA DEPARTMENT Provider, Generic External Data 03/10/2024 Orders Only GENERIC EXTERNAL DATA DEPARTMENT Provider, Generic External Data 02/11/2024 3:45 PM EST Office Visit [facility] MEDICINE [address] [place] [address] Name, MD Hong Type 1 diabetes mellitus with other specified complication (CMS/HCC) (Primary Dx); 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 (CMS/HCC) 02/05/2024 Orders Only GENERIC EXTERNAL DATA DEPARTMENT Provider, Generic External Data 02/04/2024 Refill [facility] CHC MED & PEDS [address] [place] [address] Name, MD Hong 01/24/2024 Refill [facility]BILE VACCINE CLIN[facility] [address] [place] [address] Name, MD Hong Hypertension, unspecified type; 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 ([facility]/HCC); Type 1 diabetes mellitus with other specified complication ([facility]) 01/08/2024 Orders Only GENERIC EXTERNAL [...] Description 06/20/2024 3:15 PM EDT Office Visit [facility]IC[facility] [address] [place] [address] Name, MD Hong [address] [place] [address] Health Maintenance Due Date Last Done Comments HIV Screening 1984 Eye Exam 1994 Family Planning (PISQ) 09/28/1999 Hepatitis C Screening 2002 COVID-19 Vaccine (5 - 2024-25 season) 2023 01/20/2022, 02/06/2021, 06/13/2020, Additional history exists Diabetes: Hemoglobin A1C 03/12/2024 024, 11/11/2023, 04/14/2023, Additional history exists Depression Screening 04/14/2024 04/14/2023, 04/14/19 24 SDOH Screening 04/14/2024 04/14/2023 Diabetes: Foot Exam 07/12/2024 07/13/2023, 07/13/2023, 07/13/2023, Additional history exists Alcohol/Substance Use Screening 12/10/2024 12/11/2023 Lipid Panel 01/07/2025 01/08/2024, 0906/2022, 07/15/2021, Additional history exists Tobacco Screening 02/10/2025 [...] WHOLE BLOOD Routine 04/06/2024 4:15 AM EST XR SHOULDER 2+ VIEWS RIGHT Routine 04/04/2024 3:25 AM EST VASC US UPPER EXTREMITY VENOUS DUPLEX RIGHT Routine 04/04/2024 3:24 AM EST GLUCOSE, WHOLE BLOOD Routine 03/18/2024 3:11 PM [...] 1 diabetes mellitus with other specified complication ([facility]) POCT GLYCATED HEMOGLOBIN, TOTAL Routine 12/11/2023 11:55 AM EDT Type 1 diabetes mellitus with other specified complication (CMS/HCC) from Last 3 Months or Most Recently Relevant to Health Maintenance Results * (ABNORMAL) Glucose, Whole Blood (04/06/2024 4:15 AM EST) Glucose, Whole Blood 53(LL) 60 - 115 mg/dL [facility] Comment:METER #: [id number] 04/06/2024 4:15 AM EST 04/06/2024 4:19 AM EST us Generic External Data Provider LAB BLOOD ORDERAB LES Final Result Performing Organization Address [facility]/State/[facility] Co de Phone Number [facility] [address] [place], [place] [phone] * XR Shoulder 2+ Views Right (04/04/2024 3:25 AM EST) Anatomical Region Laterality Modality Upper Extremities, Shoulder Right Radi ographic Imaging 04/04/2024 3:25 AM EST Narrative 04/04/2024 3:27 AM EST ? [facility] ?[address] ?[place] [address] ?XRay Report ? Signed ? Patient: Hernandez,Veto ?MR#: [id number] ? : 1985 ?Acct:[id number] ? Age/Sex: 38 / M ?ADM Date: 04/04/24 ? Loc: HO.ED ? Attending Dr: ? Ordering Physician: Lillie Jo ?? Date of Service: 04/04/24 ?? Procedure(s): XR shoulder RT min 2V ?? Accession Number(s): [id number] ? cc: Lillie Jo; [facility] ? CLINICAL HISTORY: pain ? 3 view right shoulder ? Comparison: None ? Findings: ?? Bones intact. No dislocations. ?? No significant loss of joint space or osteophytes. ?? No erosions. No radiopaque foreign body. ? Calcific radiodensity of the rotator cuff suggests calcific tendinosis. ? IMPRESSION: ?? Calcific radiodensity of the rotator cuff suggests calcific tendinosis. ? This document has been electronically signed by: José Luis Damon MD, ?? PHD on 04/04/2024 03:25:40 ? Dictated By: ?José Luis Damon MD ? Signed By: ?<Electronically signed by José Luis Damon MD in OV> ? 04/04/24325 ? DD/ 4 ? TD/TT: 04/04/24324 ? Public Health Nutritionist: ? Procedure Note Dondamienter, Image - 04/04/[address] [address] XRay Report Signed Patient: Veto HernandezMR#: [id number] : 1985Acct:[id number] Age/Sex: 38 / MADM Date: 04/04/24 Loc: HO.ED Attending Dr: Ordering Physician: Lillie Jo Date of Service: 04/04/24 Procedure(s): XR shoulder RT min 2V Accession Number(s): [id number] cc: Lillie Jo; [facility] CLINICAL HISTORY: pain 3 view right shoulder Comparison: None Findings: Bones intact. No dislocations. No significant loss of joint space or osteophytes. No erosions. No radiopaque foreign body. Calcific radiodensity of the rotator cuff suggests calcific tendinosis. IMPRESSION: Calcific radiodensity of the rotator cuff suggests calcific tendinosis. This document has been electronically signed by: José Luis Damon MD, PHD on 04/04/2024 03:25:40 Dictated By: José Luis Damon MD Signed By: <Electronically signed by José Luis Damon MD in OV> 04/04/24325 DD/ 4 TD/TT: 04/04/24324 Public Health Nutritionist: us [facility] External Provider IMG XR PROCEDURES Edited Result - Final * Vascular US upper extremity venous duplex right (04/04/2024 3:24 AM EST) 04/04/2024 3:24 AM EST Narrative [facility] - 04/04/2024 3:25 AM EST ? [facility] ?[address] ?[place] [address] ? Ultrasound Report ? Signed ? Patient: Hernandez,Veto ?MR#: [id number] ? : 1985 ?Acct:[id number] ? Age/Sex: 38 / M ?ADM Date: 04/04/24 ? Loc: HO.ED ? Attending Dr: ? Ordering Physician: Lillie Jo ?? Date of Service: 04/04/24 ?? Procedure(s): US venous duplex UE RT ?? Accession Number(s): [id number] ? cc: Lillie Jo; [facility] ? CLINICAL HISTORY: pain ? Venous duplex ultrasound right upper extremity ? Comparison: None ? Findings: ?? Accessible deep venous segments are fully compressible with normal Doppler ?? color flow and spectral tracings. ? IMPRESSION: ?? 1. Negative for right upper extremity deep vein thrombosis. ? This document has been electronically signed by: José Luis Damon MD, ?? PHD on 04/04/2024 03:24:13 ? Dictated By: ?José Luis Damon MD ? Signed By: ?<Electronically signed by José Luis Damon MD in OV> ? 04/04/24 0325 ? DD/ 0324 ? TD/TT: 04/04/24 0324 ? Public Health Nutritionist: ? Procedure Note Den, Image - 04/04/2024 [place] [address] Ultrasound Report Signed Patient: Veto Hernandez#: [id number] : 1985Acct:[id number] Age/Sex: 38 / MADM Date: 04/04/24 Loc: HO.ED Attending Dr: Ordering Physician: Lillie Jo Date of Service: 04/04/24 Procedure(s): US venous duplex UE RT Accession Number(s): [id number] cc: Lillie Jo; [facility] CLINICAL HISTORY: pain Venous duplex ultrasound right upper extremity Comparison: None Findings: Accessible deep venous segments are fully compressible with normal Doppler color flow and spectral tracings. IMPRESSION: 1. Negative for right upper extremity deep vein thrombosis. This document has been electronically signed by: José Luis Damon MD, PHD on 04/04/2024 03:24:13 Dictated By: José Luis Damon MD Signed By: <Electronically signed by José Luis Damon MD in OV> 04/04/245 DD/ 3 TD/TT: 04/04/24323 Public Health Nutritionist: [facility] External Provider CV VASC ULAR PROCEDURES Edited Result - Final Performing Organization Address [facility]/ZIP Co de Phone Number [facility] [address] [place] [address] * Glucose, Whole Blood (03/18/2024 3:11 PM EST) Pathologist [facility] Glucose, Whole Blood 89 60 - 115 mg/dL [facility] Comment:METER #: [id number] Testing performed in the Endocrinology Department [address] , [address], [facility]. 03/18/2024 3:11 PM EST 03/18/2024 3:18 PM EST Generic External Data Provider LAB BLOOD ORDERAB LES Final Result Performing Organization Address [facility] Co de Phone Number [facility] [address] [place] [address] [phone] * CBC auto differential (03/10/2024 9:56 AM EST) Only the most recent of3 resultswithin the time period is included. Neutrophils Percent Auto 59.4 45 - 73 % [facility] Imm Gran Pct Auto 0.2 0.0 - 0.4 % [facility] Lymphocytes Percent Auto 28.3 20 - 40 % [facility] Monocytes Percent Auto 8.3 2 - 11 % [facility] Eosinophils Percent Auto 3.3 0 - 4 % [facility] Basophils Percent Auto 0.5 0 - 2 % [facility] Neutrophils Absolute Auto 3.5 2.0 - 8.3 x10*3/uL [facility] Imm Gran Abs Auto 0.01 0.00 - 0.03 X10*3/uL [facility] Lymphocytes Absolute Auto 1.6 1.2 - 4.9 X10*3/uL [facility] Monocytes Absolute Auto 0.5 0.1 - 1.2 X10*3/uL [facility] Eosinophils Absolute Auto 0.2 0.0 - 0.4 X10*3/uL [facility] Basophils Absolute Auto 0.0 0.0 - 0.2 X10*3/uL [facility] 03/10/2024 9:56 AM EST 03/10/2024 9:56 AM EST us Generic External Data Provider LAB BLOOD ORDERAB LES Final Result [facility] [address] [place] [phone] * (ABNORMAL) CBC (03/10/2024 9:56 AM EST) White Blood Count 5.8 4.8 - 10.8 X10*3/uL [facility] Red Blood Count 3.32(L) 4.60 - 5.80 X10*6/uL [facility] Hemoglobin 9.9(L) 14.0 - 18.0 g/dl [facility] Hematocrit 28.5(L) 42.0 - 52.0 % [facility] Mean Corpuscular Volume 85.8 80.0 - 98.0 fL [facility] Mean Corpuscular Hemoglobin 29.8 27.0 - 33.0 pg [facility] Mean Corpuscular HGB Conc 34.7 31.0 - 36.0 g/dl [facility] Red Cell Distribution Width 11.5 11.0 - 16.0 % [facility] Platelet Count 216 160 - 400 X10*3/uL [facility] Mean Platelet Volume 9.6 9.4 - 12.4 fL [facility] NRBC Pct Auto 0.0 0.0 - 0.2 /100WBC [facility] NRBC Abs Auto 0.000 0.0 - 0.012 X10*3/uL [facility] 03/10/2024 9:56 AM EST 03/10/2024 9:56 AM EST us Generic External Data Provider LAB BLOOD ORDERAB LES Final Result Performing Organization Address City/[facility] Co de Phone Number [facility] [address] [place] [phone] * (ABNORMAL) Basic Metabolic Panel (03/10/2024 9:56 AM EST) Only the most recent of3 resultswithin the time period is included. Sodium 142 135 - 145 mmol/L [facility] Potassium 4.2 3.3 - 5.1 mmol/L [facility] Chloride 110(H) 96 - 108 mmol/L [facility] Carbon Dioxide 23 22 - 29 mmol/L [facility] Anion Gap 13 12 - 20 [facility] Urea Nitrogen (BUN) 82(H) 9 - 16 mg/dL [facility] Creatinine, Serum 8.52(HH) 0.5 - 1.4 mg/dL [facility] Comment:Critical value for C RE: Results called to and read russelly: KANIKA Zuluaga Person calling: ELLIOT Date: 03-10-24 Time: 1056 Estimated Glomerular Filt Rate 7 [facility] Comment:Chronic Kidney Disea se: Estimated GFR < 60 mL/min/1.12a0Ljmswm Kidney Disease: Estimated GFR < 15 mL/min/1.73m2 Glucose 123(H) 60 - 115 mg/dL [facility] Calcium 10.5(H) 8.4 - 10.2 mg/dL [facility] 03/10/2024 9:56 AM EST 03/10/2024 9:56 AM EST us Generic External Data Provider LAB BLOOD ORDERAB LES Final Result Performing Organization Address City/[facility]/ZIP Co de Phone Number [facility] [address] [place] [phone] * PTH, Intact Without Calcium (02/05/2024 7:55 AM EST) Only the most recent of2 resultswithin the time period is included. Parathyroid Hormone, Intact 34.9 8.7 - 77.1 pg/mL [facility] 02/05/2024 7:55 AM EST 02/05/2024 7:55 AM EST Generic External Data Provider LAB BLOOD ORDERAB LES Final Result Performing Organization Address [facility] Co de Phone Number [facility] [address] [place] [phone] * (ABNORMAL) Phosphate (As Phosphorus) (01/08/2024 8:02 AM EST) Phosphorus 5.6(H) 2.7 - 4.5 mg/dL [facility] 01/08/2024 8:02 AM EST 01/08/2024 9:14 AM EST Generic External Data Provider LAB BLOOD ORDERAB LES Final Result Performing Organization Address [facility] Co de Phone Number [facility] [address] [place] [phone] * (ABNORMAL) Lipid Panel, Standard (01/08/2024 8:02 AM EST) Triglycerides 127 <150 mg/dL [facility] Comment:Desirable Triglyceri de: less than 150 mg/dLBorderline High Triglyceride 150-199 mg/dLHigh Triglyceride: 200-499 mg/dLVery High Triglyceride: greater than or equal to 5OO mg/dL Cholesterol 136 <200 mg/dL [facility] Comment:Desirable Cholestero l: less than 200 mg/dLBorderline High Cholesterol: 200-239 mg/dLHigh Cholesterol: greater than 239 mg/dL LDL Cholesterol Calculated 71 <100 mg/dL [facility] Comment:Desirable LDL: less than 100 mg/dLNear Optimal/Above Optimal LDL: 110- 129 mg/dLBorderline High LDL: 130-159 mg/dLHigh LDL: 160-189 mg/dLVery High LDL: greater than or equal to 190 mg/dL HDL Cholesterol 40(L) >40 mg/dL [facility] Comment:Desirable HDL: great er than 40 mg/dL Note: This HDL assay may give artificially low results in patients with liver disease. Blood Venous blood specimen / Unknown 01/08/2024 8:02 AM EST 01/08/2024 9:14 AM EST Tammy Yates MD LAB BLOOD ORDERABLES Final Res ult [facility] [address] [place] [phone] [phone] * (ABNORMAL) POCT HGB A1C (12/11/2023 11:55 AM EDT) Hemoglobin A1C 6.6(A) 4.0 - 6.0 % QC Media Lot # [id number] Lot# Expiration Date Blood 12/11/2023 11:5 5 AM EDT Tammy Yates MD POINT OF CARE TEST ENTER/EDIT ORDERABLES Final Result from Last 3 Months or Most Recently Relevant to Health Maintenance [facility] Care Teams Nursery Technician Relationship Specialty Start Date End Date Name, MD Hong [address] [place] [phone] PCP - General Family Medicine 06/18/16 Magali Doty PharmD [address] [place] [phone] Pharmacist Internal Medicine 08/15/22
--- OUTSIDE RECORDS SUMMARY | 2024-04-06 04:30 | XMS_ITS | Clinical Summary ---
Author Organization [facility] Address [address] [facility] [address] [place] [address] Phone Care Team Providers Care Billboard Installer Name Role Phone Name, Hong FOSS Primary Care Provider [phone] Allergies Active Allergy Reactions Criticality Noted Date [...] Insurance [place] Care Teams Billboard Installer Relationship Specialty Start Date End Date Name, MD Hong [address] [place] [phone] PCP - General 03/05/20
--- OUTSIDE RECORDS SUMMARY | 2024-04-06 04:30 | XMS_ITS | Encounter Summary ---
Author Organization [facility] Address [address] [facility] [address] [place] [address] Phone Care Team Providers Care Routing Clerk Name Role Phone Name, Hong FOSS Primary Care Provider [phone] Reason for Referral * Consultation (Routine) - Closed Specialty Diagnoses / Procedures Referred By Contac t Referred To Contact Transplant Surgery Diagnoses Chronic kidney disease, stage 4 (severe) (HCC) Pro Christianson MD Phone: tel: fax: [facility] [address] [place] [address] Phone: tel: Referral ID Status Reason Start Date Expiration Date V isits Requested Visits Authorized [id number] Closed Specialty Services Required 02/25/2023 02/25/2024 1 1 Encounter Details Date Type Department Care Team (Latest Contact Info) Description 02/25/2023 Office Communication [facility] [address] [facility] [address] [place] [phone] Pro Christianson MD [address] [facility] [address] [place] [phone] Chronic kidney disease, stage 4 (severe) (HCC) [...] Primary documented in this encounter Care Teams Routing Clerk Relationship Specialty Start Date End Date Name, MD Hong [address] [place] [phone] PCP - General 03/05/20 documented as of this encounter
--- OUTSIDE RECORDS SUMMARY | 2024-04-06 04:30 | XMS_ITS | Data Portability ---
Author Organization [place] - [facility] Address [address] [place] [phone] Assessment No assessment recorded. Plan of Treatment Reminders Order Date Submit Date Provider Last Modified By Organization Details Last Modified Time Details Appointments None recorded. Lab CMP, serum or plasma 2020 [facility], [address] [place] [address], [phone], 07:22:26 CBC w/ auto diff 2020 [facility], [address] [place] [address], [phone], 07:22:27 C-reactive protein, quantitati ve, serum or plasma [address], [address] [place] [address], [phone], 13:19:44 TSH, serum, reflex free T4 [address], [address] [place] [address], [phone], 13:19:44 Referral None recorded. Procedures None recorded. Surgeries None recorded. Imaging None recorded. Medication Orders trazodone 50 mg tablet 2020 [facility] [address], [address] [place], [address], 15:05:36 meclizine 25 mg tablet 2020 021 ARJUN [facility], [address] [place], [address], 1 15:04:10 turmeric 450 mg-turmeri c root extract 50 mg capsule 2020 021 [email or web address] ill1 [facility] [address], [address] [place], [address], 15:08:06 ketorolac 30 mg/mL (1 mL) injection solution 2020 jessy ill1 Not available 17:16:26 Patient TargetsNo targets recorded. Patient Instructions Encounter Date Encounter Id Patient Instructions Last Modified By Organization Details Last Modified Time 11/12/2020 [id number] Follow up with pardeep brown in 1 week geoffrey Not available 11/12/2020 15:11:20 Reason for Referral None Reported. Results Created Date Observation Date Name Description Value Unit Range Abnormal Flag Note LastModifiedBy Organization Detail LastModifiedTime 11/13/1911/13/2020 COMPR EHENS HERMELINDA METAB OLIC PANEL glucose 83 mg/dL 65-99 normal Fasti ng refer ence inter galen Not Available [facility] [address], [place], [address], 11/13/2020 07:22:24 11/13/19 21 11/13/2020 COMPR EHENS HERMELINDA METAB OLIC PANEL urea nitrogen (BUN) 10 mg/dL 7-25 normal Not Available [facility] [address], [place], [address], 11/13/2020 07:22:24 11/13/19 21 11/13/2020 COMPR EHENS HERMELINDA METAB OLIC PANEL creatinine 0.68 mg/dL 0.60-1 .35 normal Not Available [facility] [address], [place], [address], 11/13/2020 07:22:24 11/13/19 21 11/13/2020 COMPR EHENS HERMELINDA METAB OLIC PANEL eGFR non-afr. samoan 123 mL/mi n/1.7 3m2 > or = 60 normal Not Available [facility] [address], [place], [address], 11/13/2020 07:22:24 11/13/19 21 11/13/2020 COMPR EHENS HERMELINDA METAB OLIC PANEL eGFR 142 mL/mi n/1.7 3m2 > or = 60 normal Not Available [facility] [address], [place], [address], 11/13/2020 07:22:24 11/13/19 21 11/13/2020 COMPR EHENS HERMELINDA METAB OLIC PANEL BUN/creatini ne ratio NOT APPLIC ABLE (calc ) 6-22 Not Available [facility] [address], [place], [address], 11/13/2020 07:22:24 11/13/19 21 11/13/2020 COMPR EHENS HERMELINDA METAB OLIC PANEL sodium 139 mmol/ L 135-14 6 normal Not Available [facility] [address], [place], [address], 11/13/2020 07:22:24 11/13/19 21 11/13/2020 COMPR EHENS HERMELINDA METAB OLIC PANEL potassium 4.1 mmol/ L 3.5-5. 3 normal Not Available [facility] [address], [place], [address], 11/13/2020 07:22:24 11/13/19 21 11/13/2020 COMPR EHENS HERMELINDA METAB OLIC PANEL chloride 103 mmol/ L 98-110 normal Not Available [facility] [address], [place], [address], 11/13/2020 07:22:24 11/13/19 21 11/13/2020 COMPR EHENS HERMELINDA METAB OLIC PANEL carbon dioxide 28 mmol/ L 20-32 normal Not Available [facility] [address], [place], [address], 11/13/2020 07:22:24 11/13/19 21 11/13/2020 COMPR EHENS HERMELINDA METAB OLIC PANEL calcium 10.0 mg/dL 8.6-10 .3 normal Not Available [facility] [address], [place], [address], 11/13/2020 07:22:24 11/13/19 21 11/13/2020 COMPR EHENS HERMELINDA METAB OLIC PANEL protein, total 7.7 g/dL 6.1-8. 1 normal Not Available [facility] [address], [place], [address], 11/13/2020 07:22:24 11/13/19 21 11/13/2020 COMPR EHENS HERMELINDA METAB OLIC PANEL albumin 5.2 g/dL 3.6-5. 1 high Not Available [facility] [address], [place], [address], 11/13/2020 07:22:24 11/13/19 21 11/13/2020 COMPR EHENS HERMELINDA METAB OLIC PANEL globulin 2.5 g/dL_ (calc ) 1.9-3. 7 normal Not Available [facility] [address], [place], [address], 11/13/2020 07:22:24 11/13/19 21 11/13/2020 COMPR EHENS HERMELINDA METAB OLIC PANEL albumin/glob ulin ratio 2.1 (calc ) 1.0-2. 5 normal Not Available [facility] [address], [place], [address], 11/13/2020 07:22:24 11/13/19 21 11/13/2020 COMPR EHENS HERMELINDA METAB OLIC PANEL bilirubin, total 0.4 mg/dL 0.2-1. 2 normal Not Available [facility] [address], [place], [address], 11/13/2020 07:22:24 11/13/19 21 11/13/2020 COMPR EHENS HERMELINDA METAB OLIC PANEL alkaline phosphatase 42 U/L 36-130 normal Not Available [facility] [address], [place], [address], 11/13/2020 07:22:24 11/13/1911/13/2020 COMPR EHENS HERMELINDA METAB OLIC PANEL AST 15 U/L 10-40 normal Not Available [facility] [employer] [facility] [address], [place], [address], 11/13/2020 07:22:24 11/13/19 21 11/13/2020 COMPR EHENS HERMELINDA METAB OLIC PANEL ALT 18 U/L 9-46 normal Not Available [facility] [employer] [facility] [address], [place], [address], 11/13/2020 07:22:24 11/13/1911/13/2020 TSH W/REF WILNER TO FT4 TSH w/reflex to FT4 1.98 mIU/L 0.40-4 .50 normal Not Available [employer] [facility] [address], [place], [address], 11/13/2020 07:22:27 11/13/1911/13/2020 CBC (INCL UDES DIFF/ PLT) white blood cell count 7.8 thous and/u L 3.8-10 .8 normal Not Available [employer] [facility] [address], [place], [address], 11/13/2020 07:22:27 11/13/1911/1311/13/2020 CBC (INCL UDES DIFF/ PLT) red blood cell count 4.94 nighat on/uL 4.20-5 .80 normal Not Available [facility] [address], [place], [address], 11/13/2020 07:22:27 11/13/19 21 11/13/2020 CBC (INCL UDES DIFF/ PLT) hemoglobin 14.7 g/dL 13.2-1 7.1 normal Not Available [facility] [address], [place], [address], 11/13/2020 07:22:27 11/13/1911/13/2020 CBC (INCL UDES DIFF/ PLT) hematocrit 43.1 % 38.5-5 0.0 normal Not Available [facility] [address], [place], [address], 11/13/2020 07:22:27 11/13/1911/13/2020 CBC (INCL UDES DIFF/ PLT) MCV 87.2 fL 80.0-1 00.0 normal Not Available [facility] [address], [place], [address], 11/13/2020 07:22:27 11/13/19 21 11/13/2020 CBC (INCL UDES DIFF/ PLT) MCH 29.8 pg 27.0-3 3.0 normal Not Available [facility] [address], [place], [address], 11/13/2020 07:22:27 11/13/1911/13/2020 CBC (INCL UDES DIFF/ PLT) MCHC 34.1 g/dL 32.0-3 6.0 normal Not Available [facility] [address], [place], [address], 11/13/2020 07:22:27 09/11/13/2020 CBC (INCL UDES DIFF/ PLT) RDW 13.5 % 11.0-1 5.0 normal Not Available [facility] [address], [place], [address], 11/13/2020 07:22:27 11/13/19 21 11/13/2020 CBC (INCL UDES DIFF/ PLT) platelet count 243 thous and/u L 140-40 0 normal Not Available [facility] [address], [place], [address], 11/13/2020 07:22:27 11/13/1911/13/2020 CBC (INCL UDES DIFF/ PLT) MPV 9.3 fL 7.5-12 .5 normal Not Available [facility] [address], [place], [address], 11/13/2020 07:22:27 11/13/19 21 11/13/2020 CBC (INCL UDES DIFF/ PLT) absolute neutrophils 5554 cells /uL 1500-7 800 normal Not Available [facility] [address], [place], [address], 11/13/2020 07:22:27 11/13/19 21 11/13/2020 CBC (INCL UDES DIFF/ PLT) absolute lymphocytes 1334 cells /uL 850-39 00 normal Not Available [facility] [address], [place], [address], 11/13/2020 07:22:27 11/13/19 21 11/13/2020 CBC (INCL UDES DIFF/ PLT) absolute monocytes 655 cells /uL 200-95 0 normal Not Available [facility] [address], [place], [address], 11/13/2020 07:22:27 11/13/19 21 11/13/2020 CBC (INCL UDES DIFF/ PLT) absolute eosinophils 218 cells /uL 15-500 normal Not Available [facility] [address], [place], [address], 11/13/2020 07:22:27 11/13/19 21 11/13/2020 CBC (INCL UDES DIFF/ PLT) absolute basophils 39 cells /uL 0-200 normal Not Available [facility] [address], [place], [address], 11/13/2020 07:22:27 11/13/19 21 11/13/2020 CBC (INCL UDES DIFF/ PLT) neutrophils 71.2 % normal Not Available [facility] [address], [place], [address], 11/13/2020 07:22:27 11/13/19 21 11/13/2020 CBC (INCL UDES DIFF/ PLT) lymphocytes 17.1 % normal Not Available [facility] [address], [place], [address], 11/13/2020 07:22:27 11/13/19 21 11/13/2020 CBC (INCL UDES DIFF/ PLT) monocytes 8.4 % normal Not Available [facility] [address], [place], [address], 11/13/2020 07:22:27 11/13/1911/13/2020 CBC (INCL UDES DIFF/ PLT) eosinophils 2.8 % normal Not Available [facility] [address], [place], [address], 11/13/2020 07:22:27 11/13/1911/13/2020 CBC (INCL UDES DIFF/ PLT) basophils 0.5 % normal Not Available [facility] [address], [place], [address], 11/13/2020 07:22:27 Result Notes None recorded. Problems No Known Problems Procedures Surgical History Date Name Laterality Status Provider Name and Address Organization Details Recorded Time Hernia Repair completed [facility] 11/12/2020 14:26:35 Imaging Results None recorded. Procedure Notes None recorded. Medical Equipment None Reported. Allergies Allergen ID Allergen Name Allergen Category Reaction Reaction Severity Criticality Documentation Date Start Date Code Code System Note Provider Name and Address Organization Details Recorded Time 1418 Product containin g penicilli n and antibioti c (product) medicatio n swelling Not available Not available 11/12/2020 23456 05 SNOMED [facility] 14:25:51 Medications Name Sig Start Date Stop [...] cm 82 /min 97.3 [degF] 24.9 kg/m2 15603.1 9 g 97 % 97 % 111 mm[Hg] 72 mm[Hg] [facility] 14:25:24 Social History Question Answer Notes LastModified by Organizat ion Details LastModified Time Tobacco Smoking Status Never Smoker [facility] 11/12/2020 14:26:26 What Is Your Level Of [...] Cancer N Blood Transfusion N Depression N Hypothyroidism N Lung Disease N COPD N Developmental or Behavioral Disorders N Defects or Inherited Disease N Breast Problem N Difficulty Swallowing N Anesthesia Complications N Anxiety Disorder N Meniere's disease N Muscle, Joint, or Bone Problems N Obesity N Vision or Eye Problems N Arthritis N Infertility N Polyps N Mental Disorder N Cancer N Stroke N Varicosities N Endometriosis N Bladder or Kidney Problems [...] SNOMED-CT Code Diagnosis ICD10 Code Diagnosis Note [id number] Isabel Pinto-[facility], DO Main Office [address] [place] [phone] 11/12/2020 14:14:01 11/12/2020 16:59:27 Unintentional weight loss 980271290 R63.4 15# wt loss since 40 days after he got his Moderna vaccine Dizziness 430748474 R42 Insomnia 638270338 F51.0 9 Health Concerns Section Related Observation [...] and insomnia. Isabel Hurst, [address] [place], [address], [facility] 11/12/2020 18:14:12
--- OUTSIDE RECORDS SUMMARY | 2024-04-06 04:30 | XMS_ITS | Encounter Summary ---
Author Organization [employer] Address [address] [facility] 7t [place] [address] Care Team Providers Care Health Promotion Specialist Name Role Phone Name, Hong FOSS Primary Care Provider [phone] Magali Doty PharmD Unavailable [phone] Encounter Details Date Type Department Care [...] 3:15 PM EDT Office Visit [facility] [address] [place] [address] Name, MD Hong [address] [place] [address] documented as of this encounter Goals Goal [...] Whole Blood 89 60 - 115 mg/dL [facility] Comment:METER #: [id number] Testing performed in the Endocrinology Department [address] , [address], [facility]. 03/18/2024 3:11 PM EST 03/18/2024 3:18 PM EST us Generic External Data Provider LAB BLOOD ORDERAB LES Final Result [facility] [address] [place] [address] [phone] documented in this encounter Visit Diagnoses Not on filedocumented in this encounter Additional Health Concerns Assessment Noted Time PHQ-9 Depression Total Score: 0 04/14/19 1:09 PM EST documented as of this encounter Care Teams Health Promotion Specialist Relationship Specialty Start Date End Date Name, MD Hong [address] [place] [address] PCP - General Family Medicine 06/18/16 Magali Doty PharmD [address] [place] [address] Pharmacist Internal Medicine 08/15/22 documented as of this encounter
--- OUTSIDE RECORDS SUMMARY | 2024-04-06 04:30 | XMS_ITS | Encounter Summary ---
Author Organization [employer] Address [address] [facility] 7t [place] [address] Care Team Providers Care Swimming Pool Attendant Name Role Phone Name, Hong FOSS Primary Care Provider [phone] Magali Doty PharmD Unavailable [phone] Reason for Visit * Reason Comments Med Refill Encounter Details Date Type Department Care Team ([facility] st Contact Info) Description 09/08/2023 Refill [facility] [address] [place], [place] [phone] Name, MD Hong [address] [place] [address] Social History Tobacco Use Types Packs/Day Years [...] Description 06/20/2024 3:15 PM EDT Office Visit [facility] [address] [place] [phone] Name, MD Hong [address] [place] [address] documented as of this encounter Goals Goal [...] documented as of this encounter Care Teams Swimming Pool Attendant Relationship Specialty Start Date End Date Name, MD Hong [address] [place] [address] PCP - General Family Medicine 06/18/16 LoraineiaMagali, PharmD [address] [place] [address] Pharmacist Internal Medicine 08/15/22 documented as of this encounter
--- OUTSIDE RECORDS SUMMARY | 2024-04-06 04:30 | XMS_ITS | Encounter Summary ---
Author Organization [employer] Address [address] [facility] 7t [place] [address] Care Team Providers Care Pot Washer Name Role Phone Name, Hong FOSS Primary Care Provider [phone] Magali Doty PharmD Unavailable [phone] Encounter Details Date Type Department Care [...] Description 06/20/2024 3:15 PM EDT Office Visit [facility] [address] [place] [address] Name, MD Hong [address] [place] [address] documented as of this encounter Goals Goal [...] EST) Sodium 142 135 - 145 mmol/L [facility] Potassium 4.2 3.3 - 5.1 mmol/L [facility] Chloride 110(H) 96 - 108 mmol/L [facility] Carbon Dioxide 23 22 - 29 mmol/L [facility] Anion Gap 13 12 - 20 [facility] Urea Nitrogen (BUN) 82(H) 9 - 16 mg/dL [facility] Creatinine, Serum 8.52(HH) 0.5 - 1.4 mg/dL [facility] Comment:Critical value for C RE: Results called to and read backby: KANIKA Zuluaga Person calling: ELLIOT Date: 03-10-24 Time: 1056 Estimated Glomerular Filt Rate 7 [facility] Comment:Chronic Kidney Disea se: Estimated GFR < 60 mL/min/1.88x8Fwlcdz Kidney Disease: Estimated GFR < 15 mL/min/1.73m2 Glucose 123(H) 60 - 115 mg/dL [facility] Calcium 10.5(H) 8.4 - 10.2 mg/dL [facility] 03/10/2024 9:56 AM EST 03/10/2024 9:56 AM EST us Generic External Data Provider LAB BLOOD ORDERAB LES Final Result Performing Organization Address City/State/[facility] Co de Phone Number [facility] [address] [place] [phone] * CBC auto differential (03/10/2024 9:56 AM EST) Neutrophils Percent Auto 59.4 45 - 73 % [facility] Imm Gran Pct Auto 0.2 0.0 - 0.4 % [facility] Lymphocytes Percent Auto 28.3 20 - 40 % [facility] Monocytes Percent Auto 8.3 2 - 11 % [facility] Eosinophils Percent Auto 3.3 0 - 4 % [facility] Basophils Percent Auto 0.5 0 - 2 % [facility] Neutrophils Absolute Auto 3.5 2.0 - 8.3 x10*3/uL [facility] Imm Gran Abs Auto 0.01 0.00 - 0.03 X10*3/uL [facility] Lymphocytes Absolute Auto 1.6 1.2 - 4.9 X10*3/uL [facility] Monocytes Absolute Auto 0.5 0.1 - 1.2 X10*3/uL [facility] Eosinophils Absolute Auto 0.2 0.0 - 0.4 X10*3/uL [facility] Basophils Absolute Auto 0.0 0.0 - 0.2 X10*3/uL [facility] 03/10/2024 9:56 AM EST 03/10/2024 9:56 AM EST us Generic External Data Provider LAB BLOOD ORDERAB LES Final Result [facility] [address] [place] [phone] * (ABNORMAL) CBC (03/10/2024 9:56 AM EST) White Blood Count 5.8 4.8 - 10.8 X10*3/uL [facility] Red Blood Count 3.32(L) 4.60 - 5.80 X10*6/uL [facility] Hemoglobin 9.9(L) 14.0 - 18.0 g/dl [facility] Hematocrit 28.5(L) 42.0 - 52.0 % [facility] Mean Corpuscular Volume 85.8 80.0 - 98.0 fL [facility] Mean Corpuscular Hemoglobin 29.8 27.0 - 33.0 pg [facility] Mean Corpuscular HGB Conc 34.7 31.0 - 36.0 g/dl [facility] Red Cell Distribution Width 11.5 11.0 - 16.0 % [facility] Platelet Count 216 160 - 400 X10*3/uL [facility] Mean Platelet Volume 9.6 9.4 - 12.4 fL [facility] NRBC Pct Auto 0.0 0.0 - 0.2 /100WBC [facility] NRBC Abs Auto 0.000 0.0 - 0.012 X10*3/uL [facility] 03/10/2024 9:56 AM EST 03/10/2024 9:56 AM EST us Generic External Data Provider LAB BLOOD ORDERAB LES Final Result [facility] [address] [place] [address] [phone] documented in this encounter Visit Diagnoses Not on filedocumented in this encounter Additional Health Concerns Assessment Noted Time PHQ-9 Depression Total Score: 0 04/14/19 24 1:09 PM EST documented as of this encounter Care Teams Pot Washer Relationship Specialty Start Date End Date Name, MD Hong [address] [place] [address] PCP - General Family Medicine 06/18/16 Magali Doty PharmD [address] [place] [phone] Pharmacist Internal Medicine 08/15/22 documented as of this encounter
--- OUTSIDE RECORDS SUMMARY | 2024-04-06 04:30 | XMS_ITS | Encounter Summary ---
Author Organization [facility] Address [address] [place] [address] 7t [place] [address] Care Team Providers Care Vertical Punch Operator Name Role Phone NameHong MD Primary Care Provider [phone] Magali Doty PharmD Unavailable [phone] Reason for Visit * Reason Comments Med Refill Encounter Details Date Type Department Care Team (Late st Contact Info) Description 01/27/2022 Refill [facility] [address] [place] [phone] Hong Rodríguez MD [address] [place] [phone] Social History Tobacco Use Types Packs/Day Years [...] Description 06/20/2024 3:15 PM EDT Office Visit [facility] [address] [place] [phone] Hong Rodríguez MD [address] [place] [phone] documented as of this encounter Visit Diagnoses Not on filedocumented in this encounter Care Teams Vertical Punch Operator Relationship Specialty Start Date End Date Hong Rodríguez MD [address] [place] [phone] PCP - General Family Medicine 06/18/16 Magali Doty, TimothyD [address] [place] [phone] Pharmacist Internal Medicine 08/15/22 documented as of this encounter
--- OUTSIDE RECORDS SUMMARY | 2024-04-06 04:30 | XMS_ITS | Encounter Summary ---
Author Organization [employer] Address [address] [facility] 7t [place] [address] Care Team Providers Care Mechanic Insulator Name Role Phone Name, Hong FOSS Primary Care Provider [phone] Magali Doty PharmD Unavailable [phone] Reason for Visit * Reason Onset Date Comments FASHION DESIGN PROFESSOR Services 09/08/2023 Encounter Details Date Type Department Care Team ([facility] st Contact Info) Description 09/08/2023 Telephone [facility] MEDICINE [address] [place], [place] [phone] Name, MD Hong [address] [place] [address] FASHION DESIGN PROFESSOR Services Social History Tobacco Use Types Packs/Day [...] to patricia to inform that pt. Or care services manager has to call for FASHION DESIGN PROFESSOR service ( List is below ) , they will evaluate pt. For FASHION DESIGN PROFESSOR service and will send documents to PCP for sign. No answer. LVM to call back on [phone]. [facility] [address] [place] [address] [facility] [address] [place] [address] [facility] (Not accepted by [facility]) [address] [address] * Telephone Encounter - Shantal Chavarria - 09/08/2023 1:17 PM EDT Tc from [facility] stating she received a phone call from [facility],. * Telephone Encounter - Colton Herrera RN - 09/08/2023 1:16 PM EDT T/C to [phone] through [place] interpreters id - [id number] for below message , No answer.voice mailbox is full, not able to LVM. * Telephone Encounter - Solomon Trevino - 09/08/2023 12:17 PM EDT Tc from the patients spouse requesting FASHION DESIGN PROFESSOR services for the patient states the patient should not be alone due to conditions documented in this encounter Plan of Treatment Upcoming Encounters Date Type Department Care Team (Late st Contact Info) Description 06/20/2024 3:15 PM EDT Office Visit [facility]INE [address] [place] [address] Name, MD Hong [address] [place] [address] documented as of this encounter Goals Goal [...] documented as of this encounter Care Teams Mechanic Insulator Relationship Specialty Start Date End Date Name, MD Hong [address] [place] [address] PCP - General Family Medicine 06/18/16 Puia, Magali, PharmD [address] [place] [address] Pharmacist Internal Medicine 08/15/22 documented as of this encounter
--- OUTSIDE RECORDS SUMMARY | 2024-04-06 04:30 | XMS_ITS | Encounter Summary ---
Author Organization [employer] Address [address] [facility] 7t [place] [address] Care Team Providers Care Warehouse Picker Name Role Phone Name, Hong FOSS Primary Care Provider [phone] Magali Doty PharmD Unavailable [phone] Reason for Visit * Reason Comments Med Refill Encounter Details Date Type Department Care Team ([facility] st Contact Info) Description 09/13/2023 Refill [facility] MEDICINE [address] [place], [place] [phone] Name, MD Hong [address] [place] [address] Type 1 diabetes mellitus with other specified [...] Description 06/20/2024 3:15 PM EDT Office Visit [facility] MEDICINE [address] [place] [address] Name, MD Hong [address] [place] [address] documented as of this encounter Goals Goal Patient Goal Type Associated Problems Recent Progress Patient-Stated? Author Record your blood pressure once per day Blood Pressure No Magali Doty, PharmD Blood Pressure < 140/90 Blood Pressure 121/76( 024 3:50 PM EST) No Magali Doty, PharmD documented as of this encounter Visit Diagnoses Diagnosis Type 1 diabetes mellitus with other specified complication ([facility]) documented in this encounter Additional Health Concerns Assessment Noted Time PHQ-9 Depression Total Score: 0 04/14/19 24 1:09 PM EST documented as of this encounter Care Teams Warehouse Picker Relationship Specialty Start Date End Date NameHong MD [address] [place] [address] PCP - General Family Medicine 06/18/16 Magali Doty, PharmD [address] [place] [address] Pharmacist Internal Medicine 08/15/22 documented as of this encounter
--- OUTSIDE RECORDS SUMMARY | 2024-04-06 04:30 | XMS_ITS | Encounter Summary ---
Author Organization [employer] Address [address] [facility] 7t [place] [address] Care Team Providers Care Brewing Director Name Role Phone Name, Hong FOSS Primary Care Provider [phone] Magali Doty PharmD Unavailable [phone] Reason for Visit * Reason Comments Med Refill Encounter Details Date Type Department Care Team ([facility] st Contact Info) Description 01/11/2023 Refill [facility] MEDICINE [address] [place] [address] Name, MD Hong [address] [place] [address] Essential hypertension Social History Tobacco Use Types [...] Description 06/20/2024 3:15 PM EDT Office Visit [facility] MEDICINE [address] [place] [address] Name, MD Hong [address] [place] [address] documented as of this encounter Goals Goal Patient Goal Type Associated Problems Recent Progress Patient-Stated? Author Record your blood pressure once per day Blood Pressure No Magali Doty, PharmD Blood Pressure < 140/90 Blood Pressure 121/76( 024 3:50 PM EST) No Magali Doty, PharmD documented as of this encounter Visit Diagnoses Diagnosis Essential hypertension Unspecified essential hypertension documented in this encounter Care Teams Brewing Director Relationship Specialty Start Date End Date NameHong MD [address] [place] [address] PCP - General Family Medicine 06/18/16 Magali Doty, PharmD [address] [place] [address] Pharmacist Internal Medicine 08/15/22 documented as of this encounter
--- OUTSIDE RECORDS SUMMARY | 2024-04-06 04:30 | XMS_ITS | Encounter Summary ---
Author Organization [employer] Address [address] [facility] 7t [place] [address] Care Team Providers Care Reproducer Name Role Phone Name, Hong FOSS Primary Care Provider [phone] Magali Doty PharmD Unavailable [phone] Encounter Details Date Type Department Care Team (Late st Contact Info) Description 04/04/2024 Orders Only [facility] External Provider, [facility] Social History Tobacco Use Types Packs/Day Years [...] Description 06/20/2024 3:15 PM EDT Office Visit [facility] MEDICINE [address] [place] [address] Name, MD Hong [address] [place] [address] documented as of this encounter Goals Goal Patient Goal Type Associated Problems Recent Progress Patient-Stated? Author Record your blood pressure once per day Blood Pressure No PuiaSamMagali, PharmD Blood Pressure < 140/90 Blood Pressure 121/76( 024 3:50 PM EST) No Magali Doty, PharmD documented as of this encounter Procedures Procedure Name Priority Date/Time Associated Diagnosis Comments XR SHOULDER 2+ VIEWS RIGHT Routine 04/04/2024 3:25 AM EST [facility] US UPPER EXTREMITY VENOUS DUPLEX RIGHT Routine 04/04/2024 3:24 AM EST documented in this encounter Results * XR Shoulder 2+ Views Right (04/04/2024 3:25 AM EST) Anatomical Region Laterality Modality Upper Extremities, Shoulder Right Radi ographic Imaging 04/04/2024 3:25 AM EST Narrative 04/04/2024 3:27 AM EST ? [facility] ?[address] ?[place] [address] ?XRay Report ? Signed ? Patient: Hernandez,Veto ?MR#: [id number] ? : 1985 ?Acct:[id number] ? Age/Sex: 38 / M ?ADM Date: 04/04/24 ? Loc: HO.ED ? Attending Dr: ? Ordering Physician: Lillie Jo ?? Date of Service: 04/04/24 ?? Procedure(s): XR shoulder RT min 2V ?? Accession Number(s): [id number] ? cc: Lillie Jo; [facility] ? CLINICAL HISTORY: pain ? 3 [...] Luis Damon MD in OV> ? 04/04/24 0326 ? DD/ 0325 ? TD/TT: 04/04/24 0325 ? Cardroom Plastic Card Grader: ? Procedure Note Den, Image - 04/04/2024 [place] [id number] XRay Report Signed Patient: Veto HernandezMR#: [id number] : 1985Acct:[id number] Age/Sex: 38 / MADM Date: 04/04/24 Loc: HO.ED Attending Dr: Ordering Physician: Lillie Jo Date of Service: 04/04/24 Procedure(s): XR shoulder RT min 2V Accession Number(s): [id number] cc: Lillie Jo; [facility] CLINICAL HISTORY: pain 3 view right [...] in OV> 04/04/24325 DD/ 4 TD/TT: 04/04/24324 Cardroom Plastic Card Grader: us [facility] External Provider IMG XR PROCEDURES Edited Result - Final * Vascular US upper extremity venous duplex right (04/04/2024 3:24 AM EST) 04/04/2024 3:24 AM EST Narrative [facility] IMAGING - 04/04/2024 3:25 AM EST ? [facility] ?[address] ?[place] [address] ? Ultrasound Report ? Signed ? Patient: Veto Hernandez ?MR#: [id number] ? : 1985 ?Acct:[id number] ? Age/Sex: 38 / M ?ADM Date: 04/04/24 ? Loc: HO.ED ? Attending Dr: ? Ordering Physician: Lillie Jo ?? Date of Service: 04/04/24 ?? Procedure(s): US venous duplex UE RT ?? Accession Number(s): [id number] ? cc: Lillie Jo; [facility] ? CLINICAL HISTORY: pain ? Venous [...] DD/ 0324 ? TD/TT: 04/04/24 0324 ? Cardroom Plastic Card Grader: ? Procedure Note Donotuseinterpreter, Image - 04/04/2024 [place] [id number] Ultrasound Report Signed Patient: Veto HernandezMR#: [id number] : 1985Acct:[id number] Age/Sex: 38 / MADM Date: 04/04/24 Loc: HO.ED Attending Dr: Ordering Physician: Lillie Jo Date of Service: 04/04/24 Procedure(s): US venous duplex UE RT Accession Number(s): [id number] cc: Lillie Jo; [facility] CLINICAL HISTORY: pain Venous duplex ultrasound [...] by José Luis Damon MD in OV> 04/04/24324 DD/ 3 TD/TT: 04/04/24323 Cardroom Plastic Card Grader: [facility] External Provider CV VASC ULAR PROCEDURES Edited Result - Final [facility] IMAGING [address] [place] [address] documented in this encounter Visit Diagnoses Not on filedocumented in this encounter Additional Health Concerns Assessment Noted Time PHQ-9 Depression Total Score: 0 04/14/19 24 1:09 PM EST documented as of this encounter Care Teams Reproducer Relationship Specialty Start Date End Date Name, MD Hong [address] [place] [address] PCP - General Family Medicine 06/18/16 Magali Doty PharmD [address] [place] [address] Pharmacist Internal Medicine 08/15/22 documented as of this encounter
--- NOTE | 2024-04-06 04:47 | PC.NURSE ---
Pt is a&ox4, uzbek speaking only Pt denies pain at this time RT with pt Plan of care ongoing.
[2024-04-06] MEDS: Albuterol Sulfate 7.5 MG, Albuterol Sulfate (0.083%) 2.5 MG 10 MG INHALE (04:51)
[2024-04-06 04:55] LABS: Basophils Percent Auto 0.2 % (0-2); Eosinophils Absolute Auto 0.1 X10*3/uL (0.0-0.4); Eosinophils Percent Auto 0.9 % (0-4); Hematocrit 24.4 % (42.0-52.0); Hemoglobin 8.2 g/dl (14.0-18.0); Imm Gran Abs Auto 0.05 X10*3/uL (0.00-0.03); Imm Gran Pct Auto 0.5 % (0.0-0.4); Lymphocytes Absolute Auto 1.1 X10*3/uL (1.2-4.9); Lymphocytes Percent Auto 10.6 % (20-40); MANUAL DIFF FLAG NO; Mean Corpuscular HGB Conc 33.6 g/dl (31.0-36.0); Mean Corpuscular Hemoglobin 29.8 pg (27.0-33.0); Mean Corpuscular Volume 88.7 fL (80.0-98.0); Mean Platelet Volume 8.9 fL (9.4-12.4); Monocytes Absolute Auto 1.1 X10*3/uL (0.1-1.2); Monocytes Percent Auto 10.2 % (2-11); Neutrophils Absolute Auto 8.2 x10*3/uL (2.0-8.3); Neutrophils Percent Auto 77.6 % (45-73); Platelet Count 218 X10*3/uL (160-400); Red Blood Count 2.75 X10*6/uL (4.60-5.80); Red Cell Distribution Width 13.1 % (11.0-16.0); White Blood Count 10.6 X10*3/uL (4.8-10.8)
--- NOTE | 2024-04-06 05:06 | ECG_ITS ---
Test Reason : DYSPNEA Blood Pressure : */* mmHG Vent. Rate : 118 BPM Atrial Rate : 118 BPM P-R Int : 118 ms QRS Dur : 82 ms QT Int : 336 ms P-R-T Axes : 45 63 32 degrees QTcB Int : 470 ms Sinus tachycardia Otherwise normal ECG When compared with ECG of 30-Nov-2023 17:58, No significant change was found Referred By: Andre Malhotra Electronically Signed By: LESLIE GEIGER MD
[2024-04-06 05:15] LABS: Glucose, Whole Blood 93 mg/dL (60-115)
[2024-04-06 05:16] LABS: Alanine Aminotransferase 9 U/L (0-40); Albumin Level 3.6 g/dL (3.5-5.0); Alkaline Phosphatase 85 U/L (39-117); Anion Gap 20 (12-20); Aspartate Amino Transferase 15 U/L (5-37); Bilirubin Total 0.3 mg/dL (0.0-1.0); Blood Urea Nitrogen 99 mg/dL (9-16); Calcium 7.9 mg/dL (8.4-10.2); Carbon Dioxide 16 mmol/L (22-29); Chloride 109 mmol/L (96-108); Creatinine Clr Calc Pharmacy 11.4; Estimated Glomerular Filt Rate 7; Glucose Random 80 mg/dL (60-115); Potassium 5.1 mmol/L (3.3-5.1); Sodium 140 mmol/L (135-145); Total Protein 7.3 g/dL (6.5-8.0)
[2024-04-06 05:32] LABS: Influenza A PCR NEGATIVE (Negative); Influenza B PCR NEGATIVE (Negative); Resp Syncy Virus RNA Qual PCR NEGATIVE (Negative); SARS COV2 PCR INHOUSE NEGATIVE (Negative)
--- NOTE | 2024-04-06 06:27 | ED_ITS ---
HPI - General Adult General Chief complaint: Dyspnea Stated complaint: feeling unwell, BGL 57, Dialysis pt.& Blind Time Seen by Provider: 04/06/24 06:27 Source: patient, EMS, RN notes reviewed, old records reviewed and associate of science in nursing Mode of arrival: EMS Limitations: language barrier History of Present Illness ED Provider: James HPI narrative: Patient is a 38-year-old German speaking legally blind male with history of ESRD not currently on dialysis, T1DM with gastroparesis, HTN, HLD, polyneuropathy presenting to the ED via EMS stating that his called 911 because he was awake all night pacing around the house. States he was having difficulty sleeping but denies other complaint. Denies chest pain, palpitations, shortness of breath. Denies recent cough or fever and denies any sick family members at home. Denies abdominal pain, nausea, vomiting, diarrhea or constipation. Denies urinary symptoms. Denies dizziness, lightheadedness. MD complaint: unable to sleep Related Data Home Medications ?Medication ?Instructions ?Recorded ?Confirmed omeprazole 40 mg capsule,delayed 40 mg PO DAILY@0630 01/04/20 03/23/24 release hydralazine 100 mg tablet 100 mg PO TID 05/13/22 03/23/24 metoprolol succinate 100 mg 100 mg PO DAILY 02/10/23 03/23/24 tablet,extended release 24 hr nortriptyline 50 mg capsule 50 mg PO BEDTIME 03/09/23 03/23/24 tamsulosin 0.4 mg capsule 0.4 mg PO BEDTIME 08/04/23 03/23/24 acetaminophen 500 mg tablet 500 mg PO Q8H PRN moderate pain 11/30/23 03/23/24 ezetimibe 10 mg tablet 10 mg PO DAILY 11/30/23 03/23/24 Previous Rx's ?Medication ?Instructions ?Recorded atorvastatin 80 mg tablet 80 mg PO DAILY #30 tabs 12/12/20 insulin pump cartridge,automated #1 ea 02/19/22 dose,BT with controller subcutaneous (Omnipod 5 G6 Intro Kit (Gen 5) subcutaneous cartridge with controller) nifedipine 60 mg tablet,extended 60 mg PO DAILY #60 tabs 11/26/23 release 24 hr (Procardia XL) oxycodone 5 mg tablet 5 mg PO BID PRN pain #6 tabs 12/02/23 acetone (urine) test (Ketone Urine #25 ea 12/17/23 Test strips) insulin aspart U-100 100 unit/mL See Rx Instructions continuous 01/06/24 subcutaneous solution subcutaneous infusion DAILY 30 days #30 mL clonidine HCl 0.1 mg tablet 0.1 mg PO BID PRN For SBP > 140 01/11/24 #60 tabs pen needle, diabetic 32 gauge x #100 ea 02/01/24 5/32 (BD Ultra-Fine Shannan Pen Needle) insulin pump cart,auto,BT,G6/7 #10 ea 03/01/24 (Omnipod 5 G6-G7 Pods (Gen 5) subcutaneous cartridge) gabapentin 100 mg capsule 100 mg PO BEDTIME #90 caps 03/21/24 methylprednisolone 4 mg tablets in 4 mg PO QAM #1 ea 04/04/24 a dose pack (Medrol (Jay)) Allergies Allergy/AdvReac Type Severity Reaction Status Date / Time losartan Allergy Gastrointestinal Verified 04/06/24 04:27 Upset valsartan AdvReac Unknown GI problems Verified 04/06/24 04:27 Review of Systems 2 Review of Systems: As per HPI Yes all other systems are reviewed and are negative [facility] Past Medical History Medical History (Updated 04/06/24 @ 11:14 by Jada Ramirez NP) Hypertensive urgency CKD (chronic kidney disease) stage 4, GFR 15-29 ml/min Hypertensive nephrosclerosis Diabetic gastroparesis Pancreatitis Vitamin D deficiency Hypocalcemia Background diabetic retinopathy associated with type 2 diabetes mellitus Diabetes type 1, uncontrolled Hemangioma of liver Legally blind Acid reflux Sciatica Gastritis Polyneuropathy Essential hypertension Hyperlipidemia LDL goal <70 Surgical History History of surgery Hx of endoscopy Hx of circumcision Hx of appendectomy Hx of eye surgery Family History Family History Father Diabetes mellitus Mother Diabetes mellitus Maternal Grandfather Diabetes mellitus Maternal Grandmother Diabetes mellitus Social History Social History Household Members: Spouse Household Members Other:: and girlfriend Housing: House Do you presently have visiting nurse or other home services: Yes ([employer] DES[employer]) Alcohol intake: former Comment: refusing fall risk interventions. Patient Tobacco Use Status: Former Tobacco user Second Hand Smoke Exposure: No Substance Use Type: Marijuana Advance Directives: Yes Advance Directives on File: Yes Advance Directives Date on File: 04/13/20 service: No Current occupational status: disabled Physical Exam ED Vital Signs: Vital Signs - 24 hr 04/06/24 04:26 04/06/24 04:51 04/06/24 06:17 Temperature 97.9 F 98.1 F Pulse Rate 112 H 111 H 118 H Respiratory Rate 16 18 Blood Pressure 170/98 H 182/99 H Pulse Oximetry 95 91 L Oxygen Delivery Method Non-Rebreather Mask Nasal Cannula Oxygen Flow Rate 4 04/06/24 08:30 04/06/24 08:32 04/06/24 09:05 Temperature Pulse Rate 117 H Respiratory Rate 21 H Blood Pressure 158/86 H 158/86 H 161/96 H Pulse Oximetry Oxygen Delivery Method Oxygen Flow Rate 04/06/24 10:20 04/06/24 10:27 04/06/24 10:54 Temperature 99.3 F Pulse Rate 122 H Respiratory Rate 21 H 12 Blood Pressure 123/60 Pulse Oximetry 96 Oxygen Delivery Method High Flow Nasal Cannula Oxygen Flow Rate BMI result Body Mass Index 24.3 Vital signs have been reviewed and appear to be correct. Blood pressure elevated. Heart rate tachycardic. Respiratory rate normal. Temperature normal. Oxygen saturation hypoxic on room air. Const General: cooperative, no acute distress, alert and awake Nutritional Appearance: average body habitus Orientation/consciousness: patient oriented x3 Limitations: physical limitations (legally blind) [facility] Head: Yes normocephalic and Yes atraumatic Ears: hearing grossly normal bilaterally and external ears normal General nose exam: Normal external nose present and Normal nasal mucous membranes and turbinates present Mouth: oropharynx normal Throat: Yes uvula midline Eyes Corneas: corneas abnormal bilateral diffuse opacification Neck Neck: Yes normal visual inspection, Yes trachea midline and Yes supple Resp Effort & Inspection: normal respiratory effort and able to speak in complete sentences Auscultation: diminished lung sounds diffuse Cardio Rate: tachycardic Rhythm: regular rhythm Heart sounds: S1 normal heart sound present and S2 normal heart sound present Peripheral pulses: Peripheral pulses 2+ throughout GI Inspection: Yes normal to inspection Palpation (GI): Soft to palpation and nontender Auscultation: normoactive bowel sounds General: Yes no CVA tenderness Back/Spine/Pelvis Back: no CVA tenderness Skin General skin exam: elasticity normal and turgor normal Neuro General: patient oriented x3, gait normal, tone normal, moves all extremities, Normal light touch and pain sensation, no focal motor deficits, CN's II-XI intact bilaterally and deep tendon reflexes 2+ bilaterally Extrem General: Yes normal to inspection, Yes full ROM, Yes capillary refill normal, Yes no pedal edema and Yes no calf tenderness Course Reevaluation(s) Reevaluation #1: Notified by nursing that patient is increasingly confused, not making sense. Spoke with battery charger conveyor line, Dr. Ma, who does not feel this is renal. CT head ordered. No leukocytosis, anemia with one point drop since 03/10/24. BUN/creatinine elevated from baseline. Potassium WNL. Calcium low. Reevaluation #2: Notified by staff that patient hypoxic on NC at 2lpm. Patient minimally responsive to painful stimuli, placed on oxymask with improvement to low 90's. Will check VBG, ammonia, POC glucose. Urine dug screen negative, ethanol negative. Case discussed with Dr. Vail who recommends repeat CXR. Time: 10:58 Reevaluation #3: BNP elevated, pulmonary edema noted on repeat CXR, again spoke with Dr. Ma who is agreeable to lasix, still does not feels symptoms are due to renal cause. Patient on O2 via HFNC from RT. CRP elevated, ammonia normal. VBG notable for bicarb of 18, similar to prior. Time: 11:01 Additional Reevaluation(s): Admission accepted by Dr. Cid, Dr. Ma agreeable to HD. Medications Administered Discontinued Medications Generic Name Dose Route Start Last Admin Trade Name Freq PRN Reason Stop Dose Admin Albuterol Sulfate 7.5 mg/ 10 mg 04/06/24 04:43 04/06/24 04:51 Albuterol Sulfate 2.5 mg INHALE 04/06/24 04:44 10 mg ONCE ONE Administration Ceftriaxone Sodium 1 gm 04/06/24 07:05 04/06/24 07:42 Ceftriaxone Sodium 1 Gm Vial IVPUSH 04/06/24 07:06 1 gm ONCE ONE Administration Furosemide 80 mg 04/06/24 10:50 04/06/24 10:59 Furosemide 100 Mg/10 Ml Vial IVPUSH 04/06/24 10:51 80 mg ONCE ONE Administration Protocol Hydralazine HCl 5 mg 04/06/24 08:07 04/06/24 08:30 Hydralazine Hcl 20 Mg/Ml Vial IVPUSH 04/06/24 08:08 5 mg ONCE ONE Administration Protocol Hydralazine HCl 5 mg 04/06/24 08:46 04/06/24 09:05 Hydralazine Hcl 20 Mg/Ml Vial IVPUSH 04/06/24 08:47 5 mg ONCE ONE Administration Protocol Azithromycin 500 mg/ Sodium 250 mls @ 125 mls/hr 04/06/24 07:05 04/06/24 10:10 Chloride IV 04/06/24 09:04 Infused ONCE ONE Infusion Lorazepam 2 mg 04/06/24 08:57 04/06/24 09:05 Lorazepam 2 Mg/Ml Vial IVPUSH 04/06/24 08:58 2 mg ONCE ONE Administration Medical Decision Making Medical Decision Making [facility] Narrative: Patient is a 38-year-old German speaking legally blind male with history of ESRD not currently on dialysis, T1DM with gastroparesis, HTN, HLD, polyneuropathy presenting to the ED via EMS stating that his called 911 because he was awake all night pacing around the house. On exam patient is awake, A+Ox3, VS WNL, afebrile, normal neurological exam without focal deficits, physical exam findings as above. Given reported symptoms and physical exam findings, initial differential includes but is not limited to viral illness, covid, flu, rsv, bronchitis, pneumonia, electrolyte abnormality, KAYODE, encephalopathy, ICH, drug or alcohol intoxication. see course for remaining clinical decision making Differential Diagnosis Differential Diagnoses: The differential diagnosis associated with the presentation includes As per [facility] Admission/Observation Consideration of admission/observation: Escalation of care including admission/observation considered Consult Healthcare Provider Management of the patient was discussed with: Hospitalist and Algologist (Dr. Ma) Lab Data [facility] Lab Attestation statement: I reviewed the patient's lab results. As per [facility] 04/06/24 04:49 04/06/24 04:49 Labs: Lab Results 04/06/24 04/06/24 04/06/24 Range/Units 04:15 04:49 05:10 WBC 10.6 (4.8-10.8) X10*3/uL RBC 2.75 L (4.60-5.80) X10*6/uL Hgb 8.2 L (14.0-18.0) g/dl Hct 24.4 L (42.0-52.0) % MCV 88.7 (80.0-98.0) fL MCH 29.8 (27.0-33.0) pg MCHC 33.6 (31.0-36.0) g/dl RDW 13.1 (11.0-16.0) % Plt Count 218 (160-400) X10*3/uL MPV 8.9 L (9.4-12.4) fL Immature Gran % (Auto) 0.5 H (0.0-0.4) % Neut % (Auto) 77.6 H (45-73) % Lymph % (Auto) 10.6 L (20-40) % [place] % (Auto) 10.2 (2-11) % Eos % (Auto) 0.9 (0-4) % Baso % (Auto) 0.2 (0-2) % Lymph # (Auto) 1.1 L (1.2-4.9) X10*3/uL [place] # (Auto) 1.1 (0.1-1.2) X10*3/uL Eos # (Auto) 0.1 (0.0-0.4) X10*3/uL Baso # (Auto) 0.0 (0.0-0.2) X10*3/uL Abs Immat Gran (auto) 0.05 H (0.00-0.03) X10*3/uL Absolute Neuts (auto) 8.2 (2.0-8.3) x10*3/uL Absolute Nucleated RBC 0.000 (0.0-0.012) X10*3/uL Nucleated RBC % (auto) 0.0 (0.0-0.2) /100WBC VBG pH (7.32-7.43) VBG pCO2 mmHg VBG pO2 mmHg VBG HCO3 (22-26) mmol/L VBG O2 Saturation % VBG Base Excess mmol/L Sodium 140 (135-145) mmol/L Potassium 5.1 D (3.3-5.1) mmol/L Chloride 109 H (96-108) mmol/L Carbon Dioxide 16 L (22-29) mmol/L Anion Gap 20 (12-20) BUN 99 H (9-16) mg/dL Creatinine 8.41 H* (0.5-1.4) mg/dL Estim Creat Clear Calc 11.4 Estimated GFR 7 POC Glucose 53 L* 93 (60-115) mg/dL Random Glucose 80 (60-115) mg/dL Lactic Acid (0.5-2.0) mmol/L Calcium 7.9 L D (8.4-10.2) mg/dL Total Bilirubin 0.3 (0.0-1.0) mg/dL AST 15 (5-37) U/L ALT 9 (0-40) U/L Alkaline Phosphatase 85 (39-117) U/L Ammonia (13-55) umol/L C-Reactive Protein 5.75 H (< or = 0.50) mg/dL B-Natriuretic Peptide (<100) pg/mL Total Protein 7.3 (6.5-8.0) g/dL Albumin 3.6 (3.5-5.0) g/dL Urine Opiates Screen (Not Detect) Ur Buprenorphine Scrn (Not Detect) ng/mL Ur Oxycodone Screen (Not Detect) ng/mL Urine Methadone Screen (Not Detect) ng/mL Urine Fentanyl Screen (Not Detect) Ur Barbiturates Screen (Not Detect) Ur Phencyclidine Scrn (Not Detect) Ur Amphetamines Screen (Not Detect) U Benzodiazepines Scrn (Not Detect) Urine Cocaine Screen (Not Detect) U Marijuana (THC) Screen (Not Detect) Ethyl Alcohol < 10 mg/dL Influenza Type A (PCR) NEGATIVE (Negative) Influenza Type B (PCR) NEGATIVE (Negative) RSV RNA Qual (PCR) NEGATIVE (Negative) SARS-CoV-2 RNA (RT-PCR) NEGATIVE (Negative) 04/06/24 04/06/24 04/06/24 Range/Units 07:34 09:29 10:09 WBC (4.8-10.8) X10*3/uL RBC (4.60-5.80) X10*6/uL Hgb (14.0-18.0) g/dl Hct (42.0-52.0) % MCV (80.0-98.0) fL MCH (27.0-33.0) pg MCHC (31.0-36.0) g/dl RDW (11.0-16.0) % Plt Count (160-400) X10*3/uL MPV (9.4-12.4) fL Immature Gran % (Auto) (0.0-0.4) % Neut % (Auto) (45-73) % Lymph % (Auto) (20-40) % [place] % (Auto) (2-11) % Eos % (Auto) (0-4) % Baso % (Auto) (0-2) % Lymph # (Auto) (1.2-4.9) X10*3/uL [place] # (Auto) (0.1-1.2) X10*3/uL Eos # (Auto) (0.0-0.4) X10*3/uL Baso # (Auto) (0.0-0.2) X10*3/uL Abs Immat Gran (auto) (0.00-0.03) X10*3/uL Absolute Neuts (auto) (2.0-8.3) x10*3/uL Absolute Nucleated RBC (0.0-0.012) X10*3/uL Nucleated RBC % (auto) (0.0-0.2) /100WBC VBG pH (7.32-7.43) VBG pCO2 mmHg VBG pO2 mmHg VBG HCO3 (22-26) mmol/L VBG O2 Saturation % VBG Base Excess mmol/L Sodium (135-145) mmol/L Potassium (3.3-5.1) mmol/L Chloride (96-108) mmol/L Carbon Dioxide (22-29) mmol/L Anion Gap (12-20) BUN (9-16) mg/dL Creatinine (0.5-1.4) mg/dL Estim Creat Clear Calc Estimated GFR POC Glucose 118 H (60-115) mg/dL Random Glucose (60-115) mg/dL Lactic Acid 0.8 (0.5-2.0) mmol/L Calcium (8.4-10.2) mg/dL Total Bilirubin (0.0-1.0) mg/dL AST (5-37) U/L ALT (0-40) U/L Alkaline Phosphatase (39-117) U/L Ammonia (13-55) umol/L C-Reactive Protein (< or = 0.50) mg/dL B-Natriuretic Peptide (<100) pg/mL Total Protein (6.5-8.0) g/dL Albumin (3.5-5.0) g/dL Urine Opiates Screen Not Detected (Not Detect) Ur Buprenorphine Scrn Not Detected (Not Detect) ng/mL Ur Oxycodone Screen Not Detected (Not Detect) ng/mL Urine Methadone Screen Not Detected (Not Detect) ng/mL Urine Fentanyl Screen Not Detected (Not Detect) Ur Barbiturates Screen Not Detected (Not Detect) Ur Phencyclidine Scrn Not Detected (Not Detect) Ur Amphetamines Screen Not Detected (Not Detect) U Benzodiazepines Scrn Not Detected (Not Detect) Urine Cocaine Screen Not Detected (Not Detect) U Marijuana (THC) Screen Not Detected (Not Detect) Ethyl Alcohol mg/dL Influenza Type A (PCR) (Negative) Influenza Type B (PCR) (Negative) RSV RNA Qual (PCR) (Negative) SARS-CoV-2 RNA (RT-PCR) (Negative) 04/06/24 04/06/24 Range/Units 10:28 10:41 WBC (4.8-10.8) X10*3/uL RBC (4.60-5.80) X10*6/uL Hgb (14.0-18.0) g/dl Hct (42.0-52.0) % MCV (80.0-98.0) fL MCH (27.0-33.0) pg MCHC (31.0-36.0) g/dl RDW (11.0-16.0) % Plt Count (160-400) X10*3/uL MPV (9.4-12.4) fL Immature Gran % (Auto) (0.0-0.4) % Neut % (Auto) (45-73) % Lymph % (Auto) (20-40) % [place] % (Auto) (2-11) % Eos % (Auto) (0-4) % Baso % (Auto) (0-2) % Lymph # (Auto) (1.2-4.9) X10*3/uL [place] # (Auto) (0.1-1.2) X10*3/uL Eos # (Auto) (0.0-0.4) X10*3/uL Baso # (Auto) (0.0-0.2) X10*3/uL Abs Immat Gran (auto) (0.00-0.03) X10*3/uL Absolute Neuts (auto) (2.0-8.3) x10*3/uL Absolute Nucleated RBC (0.0-0.012) X10*3/uL Nucleated RBC % (auto) (0.0-0.2) /100WBC VBG pH 7.41 (7.32-7.43) VBG pCO2 28 mmHg VBG pO2 73 mmHg VBG HCO3 18 L (22-26) mmol/L VBG O2 Saturation 96.0 % VBG Base Excess -5.2 mmol/L Sodium (135-145) mmol/L Potassium (3.3-5.1) mmol/L Chloride (96-108) mmol/L Carbon Dioxide (22-29) mmol/L Anion Gap (12-20) BUN (9-16) mg/dL Creatinine (0.5-1.4) mg/dL Estim Creat Clear Calc Estimated GFR POC Glucose (60-115) mg/dL Random Glucose (60-115) mg/dL Lactic Acid (0.5-2.0) mmol/L Calcium (8.4-10.2) mg/dL Total Bilirubin (0.0-1.0) mg/dL AST (5-37) U/L ALT (0-40) U/L Alkaline Phosphatase (39-117) U/L Ammonia 26 (13-55) umol/L C-Reactive Protein (< or = 0.50) mg/dL B-Natriuretic Peptide 1291 H (<100) pg/mL Total Protein (6.5-8.0) g/dL Albumin (3.5-5.0) g/dL Urine Opiates Screen (Not Detect) Ur Buprenorphine Scrn (Not Detect) ng/mL Ur Oxycodone Screen (Not Detect) ng/mL Urine Methadone Screen (Not Detect) ng/mL Urine Fentanyl Screen (Not Detect) Ur Barbiturates Screen (Not Detect) Ur Phencyclidine Scrn (Not Detect) Ur Amphetamines Screen (Not Detect) U Benzodiazepines Scrn (Not Detect) Urine Cocaine Screen (Not Detect) U Marijuana (THC) Screen (Not Detect) Ethyl Alcohol mg/dL Influenza Type A (PCR) (Negative) Influenza Type B (PCR) (Negative) RSV RNA Qual (PCR) (Negative) SARS-CoV-2 RNA (RT-PCR) (Negative) Independent Interpretation I performed an independent interpretation of an: EKG (sinus tachycardia, rate 118bpm, normal AK interval, slightly prolonged QTc) and Plain X-Ray Interpretation: Initial CXR notable for bilat interstitial and bronchial wall thickening, RLL pna Repeat CXR notable for pulmonary edema CT head is without evidence of acute intracranial pathology Radiology Impression Discussion of test interpretation with radiology: I have reviewed the radiologist's reading. Radiologist Impression: view chest x-ray. Comparison: CR/SR - XR CHEST 1V - 11/21/23 10:45 EDT Findings: Normal lung volumes. Bilateral interstitial opacities and bronchial wall thickening new airspace disease right lower lobe. No pneumothorax or pleural effusion. Heart size normal. No midline shift or tracheal deviation. No acute fracture. Impression: 1. Normal cardiac silhouette. Bilateral interstitial and bronchial wall thickening. New airspace disease right lower lobe XR/XR chest 1V IMPRESSION: Findings suggestive of pulmonary edema. CT/CT head/brain wo IV con IMPRESSION: No acute intracranial abnormality. External Record Review External record reviewed: Inpatient record, Office record and Outpatient record Prescription Management I considered prescription management with: Antibiotic and Other Critical Care Time Critical Care Time Critical Care Time: Yes Total Critical Care Time: 55 Attestation: I have personally provided critical care time exclusive of time spent on separately billable procedures. Time includes review of lab data, radiology results, discussion with consultants, and monitoring for potential decompensation. Intervention performed as documented. Discharge Plan Discharge Patient Disposition: Admitted As Inpatient Prescriptions: No Action atorvastatin 80 mg tablet 80 mg PO DAILY Qty: 30 6RF (DME) Omnipod 5 G6 Intro Kit (Gen 5) Cartridge See Rx Instructions .Route Qty: 1 4RF Rx Instructions: As directed insulin aspart U-100 100 unit/mL solution See Rx Instructions continuous subcutaneous infusion DAILY 30 Days Qty: 30 11RF Rx Instructions: up to 70 units daily via insulin pump via continuous subcutaneous infusion daily; (DME) pen needle, diabetic [BD Ultra-Fine Shannan Pen Needle] 32 gauge x 5/32 needle See Rx Instructions .ROUTE QID Qty: 100 3RF Rx Instructions: As directed prn pump failure up to 4 times daily (DME) Omnipod 5 G6-G7 Pods (Gen 5) Cartridge See Rx Instructions .ROUTE .COMPLEX Qty: 10 2RF Dose Instruction: CHANGE EVERY 72 HOURS DIRECTED Rx Instructions: CHANGE EVERY 72 HOURS DIRECTED gabapentin 100 mg capsule 100 mg PO BEDTIME Qty: 90 0RF nifedipine [Procardia XL] 60 mg tablet extended release 24hr 60 mg PO DAILY Qty: 60 0RF metoprolol succinate 100 mg tablet extended release 24 hr 100 mg PO DAILY Rx Instructions: take with the 50mg acetaminophen 500 mg tablet 500 mg PO Q8H PRN (Reason: moderate pain) ezetimibe 10 mg tablet 10 mg PO DAILY oxycodone 5 mg tablet 5 mg PO BID PRN (Reason: pain) Qty: 6 0RF Rx Instructions: Partial Fill upon patient request. methylprednisolone [Medrol (Jay)] 4 mg tablets,dose pack 4 mg PO QAM Qty: 1 0RF omeprazole 40 mg capsule,delayed release(DR/EC) 40 mg PO DAILY@0630 hydralazine 100 mg tablet 100 mg PO TID nortriptyline 50 mg capsule 50 mg PO BEDTIME tamsulosin 0.4 mg capsule 0.4 mg PO BEDTIME (DME) Ketone Urine Test Strip See Rx Instructions .ROUTE .MEDSUPPLY Qty: 25 3RF Rx Instructions: Prn glucose over 250, nausea or vomiting, tid clonidine HCl 0.1 mg tablet 0.1 mg PO BID PRN (Reason: For SBP > 140) Qty: 60 0RF Protocol: Hold for SBP< HOLD for SBP < : 90 Print Language: German
[2024-04-06] MEDS: cefTRIAXone sodium 1 GM VIAL IVPUSH (07:42)
[2024-04-06] MEDS: Azithromycin 500 MG in 0.9 % Sodium Chloride 250 ML 125 MG IV (07:43)
[2024-04-06 07:57] LABS: Lactic Acid 0.8 mmol/L (0.5-2.0)
[2024-04-06] MEDS: hydrALAZINE HCl 20 MG/ML VIAL 5 MG IVPUSH ×2 (08:30→09:05)
[2024-04-06] MEDS: LORazepam 2 MG/ML VIAL IVPUSH (09:05)
[2024-04-06 09:39] LABS: Ethanol < 10 mg/dL
[2024-04-06 09:55] LABS: Amphetamine Screen Urine Not Detected (Not Detect); Barbiturates, Urine Not Detected (Not Detect); Benzodiazepines Screen Urine Not Detected (Not Detect); Buprenorphine Scr Not Detected (Not Detect); Cannabinoid Screen Urine Not Detected (Not Detect); Cocaine Screen Urine Not Detected (Not Detect); Fentanyl, urine Not Detected (Not Detect); Methadone Screen, Urine Not Detected (Not Detect); Opiate Screen Urine Not Detected (Not Detect); Oxycodone Screen Urine Not Detected (Not Detect); Phencyclidine Screen Urine Not Detected (Not Detect)
[2024-04-06 10:14] LABS: Glucose, Whole Blood 118 mg/dL (60-115)
[2024-04-06 10:41] LABS: Venous Blood Gas Refer to POC result
[2024-04-06 10:41] LABS: Ammonia 26 umol/L (13-55)
[2024-04-06 10:46] LABS: VBG Base Excess -5.2 mmol/L; VBG HCO3 18 mmol/L (22-26); VBG pCO2 28 mmHg; VBG pH 7.41 (7.32-7.43); VBG pO2 73 mmHg
[2024-04-06 10:50] LABS: C Reactive Protein 5.75 mg/dL (< or = 0.50)
[2024-04-06 10:54] LABS: B Type Natriuretic Peptide 1291 pg/mL (<100)
[2024-04-06] MEDS: Furosemide 100 MG/10 ML VIAL 80 MG IVPUSH (10:59)
--- NOTE | 2024-04-06 11:06 | PC.NURSE ---
Pt with ongoing restlessness and pulling at medical equipment/tubing requiring frequent need for redirection and reassurance at bedside. Upon replacing O2 sat monitor, Pt noted to be sating at 77% RA. O2 via Oxymask applied with minimal improvement. RT to bedside for initiation of High Flow--Pt now sating at 97% with High Flow. U/S guided 18g placed to R upper arm. Pt removes high Flow NC and removed original IV access to R hand and continues to be restless. High Flow replaced and 18g IV access wrapped to further secure. Pt given an abundance of verbal encouragement and reassurance by ED staff and close friend Kristina (lead tech in [employer]
--- NOTE | 2024-04-06 11:49 | PM.IMHP ---
History of Present Illness Date of Service: 04/06/24 Attending physician on admission: Roberto Cid Chief Complaint: Restlessness and agitation Pt is a 38-year-old male with a PMH significant for CKD 5 not on HD, type 1 diabetes with gastroparesis and diabetic nephropathy, recent left AVF (3-4 months old), HLD, HTN, peripheral neuropathy, GERD,?and legally blind who presents to the ED with increased agitation and confusion. Apparently called EMS after pt was noted to be restless and agitated, confused and unable to sleep last night. Pt seen and evaluated by bedside where he is noted to be restless and confused, alert and oriented fully to self only. Pt states people have told him that he is at the hospital, but he [place] and [facility]. Complains of pain in right arm and LLQ, otherwise denies any acute medical complaints. While in the ED pt was noted to become increasingly confused and speaking nonsensically. Pt then became hypoxic into the 70s on 2 L NC and minimally responsive to painful stimuli. Pt was then placed on high-flow. Repeat CXR showed increased pulmonary edema from x-ray a few hours prior, and pt was given IV Lasix. In the ED pt was tachycardic up to 122, tachypneic up to 21, hypertensive up to 208/113, and noted to be desatting into the 70s on 2L NC which improved on high-flow. Labs were significant for normocytic anemia of 8.2/24.4, BUN 99, creatinine 8.41, POC 53, CRP 5.75, and BNP 1291. Bicarb low at 18, but similar to prior. No leukocytosis. No significant electrolyte abnormalities. Tox screen negative. Negative for flu, RSV, COVID. Initial CXR showed bilateral interstitial and bronchial wall thickening with new airspace disease right lower lobe. Repeat CXR 4 hours later showed diffusely increased interstitial opacities suggestive of pulmonary edema. CT?of head negative for acute intracranial abnormality. EKG demonstrated sinus tachycardia of 118 without ischemic changes. Pt was treated with DuoNebs, ceftriaxone, azithromycin, Ativan, hydralazine, and Lasix 80 mg IV. Pt will be admitted to the hospital for treatment further evaluation of acute hypoxic respiratory failure and acute metabolic encephalopathy likely in the setting of worsening CKD 5. Review of Systems Review of Systems: Yes Unobtainable due to mental status PMFSH Medical History Hypertensive urgency CKD (chronic kidney disease) stage 4, GFR 15-29 ml/min Hypertensive nephrosclerosis Diabetic gastroparesis Pancreatitis Vitamin D deficiency Hypocalcemia Background diabetic retinopathy associated with type 2 diabetes mellitus Diabetes type 1, uncontrolled Hemangioma of liver Legally blind Acid reflux Sciatica Gastritis Polyneuropathy Essential hypertension Hyperlipidemia LDL goal <70 Family History Father Diabetes mellitus Mother Diabetes mellitus Maternal Grandfather Diabetes mellitus Maternal Grandmother Diabetes mellitus Surgical History History of surgery Hx of endoscopy Hx of circumcision Hx of appendectomy Hx of eye surgery Social History Household Members: Spouse Household Members Other:: and girlfriend Housing: House Do you presently have visiting nurse or other home services: Yes ([employer]) Alcohol intake: former Comment: refusing fall risk interventions. Patient Tobacco Use Status: Former Tobacco user Second Hand Smoke Exposure: No Substance Use Type: Marijuana Advance Directives: Yes Advance Directives on File: Yes Advance Directives Date on File: 04/13/20 service: No Current occupational status: disabled Meds Allergies Allergy/AdvReac Type Severity Reaction Status Date / Time losartan Allergy Gastrointestinal Verified 04/06/24 04:27 Upset valsartan AdvReac Unknown GI problems Verified 04/06/24 04:27 Home Medications ?Medication ?Instructions ?Recorded ?Confirmed ?Last Taken ?Type omeprazole 40 mg capsule,delayed 40 mg PO DAILY@0630 01/04/20 03/23/24 11/30/23 History release hydralazine 100 mg tablet 100 mg PO TID 05/13/22 03/23/24 11/30/23 History metoprolol succinate 100 mg 100 mg PO DAILY 02/10/23 03/23/24 11/30/23 History tablet,extended release 24 hr nortriptyline 50 mg capsule 50 mg PO BEDTIME 03/09/23 03/23/24 11/29/23 History tamsulosin 0.4 mg capsule 0.4 mg PO BEDTIME 08/04/23 03/23/24 11/29/23 History acetaminophen 500 mg tablet 500 mg PO Q8H PRN moderate pain 11/30/23 03/23/24 Unknown History ezetimibe 10 mg tablet 10 mg PO DAILY 11/30/23 03/23/24 11/30/23 History calcitriol 0.5 mcg capsule 0.5 mcg PO QAM 04/06/24 Unknown History insulin aspart U-100 100 unit/mL 0 - 70 unit subcut DIRECTED 04/06/24 Unknown History subcutaneous solution insulin pump cart,auto,BT,G6/7 04/06/24 Unknown History (Omnipod 5 G6-G7 Pods (Gen 5) subcutaneous cartridge) sevelamer carbonate 800 mg tablet 800 mg PO TID 04/06/24 04/06/24 Unknown History Physical Exam Vital Signs and Narrative: Vital Signs: Last Vital Signs Temp 99.3 F 04/06/24 10:54 Pulse 122 H 04/06/24 10:20 Resp 19 04/06/24 11:27 BP 123/60 04/06/24 10:20 Pulse Ox 96 04/06/24 10:20 O2 Del Method High Flow Nasal C annula 04/06/24 10:20 O2 Flow Rate 4 04/06/24 06:17 Oxygen Flow Rate 15 04/06/24 04:26 BMI result Body Mass Index 24.3 General: AOx1, confused, agitated. In no acute distress Resp: CTA bilaterally. On high-flow. No acute respiratory distress CVS: S1, S2, regular rhythm, tachycardic GI: +BS, no distention, mild left-sided tenderness Skin: Warm, dry Neuro: Cranial nerves II-XII grossly intact bilaterally. Motor grossly intact bilaterally Extremities: No edema Psych: Confused, agitated. Results Labs 04/06/24 04:49 04/06/24 04:49 Labs: Laboratory Results - last 24 hr 04/06/24 04/06/24 04/06/24 04:15 04:49 05:10 MCV 88.7 MCH 29.8 MCHC 33.6 RDW 13.1 Plt Count 218 MPV 8.9 L Immature Gran % (Auto) 0.5 H Neut % (Auto) 77.6 H Lymph % (Auto) 10.6 L Elbert % (Auto) 10.2 Eos % (Auto) 0.9 Baso % (Auto) 0.2 Lymph # (Auto) 1.1 L Elbert # (Auto) 1.1 Eos # (Auto) 0.1 Baso # (Auto) 0.0 Abs Immat Gran (auto) 0.05 H Absolute Neuts (auto) 8.2 Absolute Nucleated RBC 0.000 Nucleated RBC % (auto) 0.0 VBG pH VBG pCO2 VBG pO2 VBG HCO3 VBG O2 Saturation VBG Base Excess Anion Gap 20 Estim Creat Clear Calc 11.4 Estimated GFR 7 POC Glucose 53 L* 93 Random Glucose 80 Lactic Acid Calcium 7.9 L D Total Bilirubin 0.3 AST 15 ALT 9 Alkaline Phosphatase 85 Ammonia C-Reactive Protein 5.75 H B-Natriuretic Peptide Total Protein 7.3 Albumin 3.6 Urine Opiates Screen Ur Buprenorphine Scrn Ur Oxycodone Screen Urine Methadone Screen Urine Fentanyl Screen Ur Barbiturates Screen Ur Phencyclidine Scrn Ur Amphetamines Screen U Benzodiazepines Scrn Urine Cocaine Screen U Marijuana (THC) Screen Ethyl Alcohol < 10 Influenza Type A (PCR) NEGATIVE Influenza Type B (PCR) NEGATIVE RSV RNA Qual (PCR) NEGATIVE SARS-CoV-2 RNA (RT-PCR) NEGATIVE 04/06/24 04/06/24 04/06/24 07:34 09:29 10:09 MCV MCH MCHC RDW Plt Count MPV Immature Gran % (Auto) Neut % (Auto) Lymph % (Auto) Elbert % (Auto) Eos % (Auto) Baso % (Auto) Lymph # (Auto) Elbert # (Auto) Eos # (Auto) Baso # (Auto) Abs Immat Gran (auto) Absolute Neuts (auto) Absolute Nucleated RBC Nucleated RBC % (auto) VBG pH VBG pCO2 VBG pO2 VBG HCO3 VBG O2 Saturation VBG Base Excess Anion Gap Estim Creat Clear Calc Estimated GFR POC Glucose 118 H Random Glucose Lactic Acid 0.8 Calcium Total Bilirubin AST ALT Alkaline Phosphatase Ammonia C-Reactive Protein B-Natriuretic Peptide Total Protein Albumin Urine Opiates Screen Not Detected Ur Buprenorphine Scrn Not Detected Ur Oxycodone Screen Not Detected Urine Methadone Screen Not Detected Urine Fentanyl Screen Not Detected Ur Barbiturates Screen Not Detected Ur Phencyclidine Scrn Not Detected Ur Amphetamines Screen Not Detected U Benzodiazepines Scrn Not Detected Urine Cocaine Screen Not Detected U Marijuana (THC) Screen Not Detected Ethyl Alcohol Influenza Type A (PCR) Influenza Type B (PCR) RSV RNA Qual (PCR) SARS-CoV-2 RNA (RT-PCR) 04/06/24 04/06/24 10:28 10:41 MCV MCH MCHC RDW Plt Count MPV Immature Gran % (Auto) Neut % (Auto) Lymph % (Auto) Elbert % (Auto) Eos % (Auto) Baso % (Auto) Lymph # (Auto) Elbert # (Auto) Eos # (Auto) Baso # (Auto) Abs Immat Gran (auto) Absolute Neuts (auto) Absolute Nucleated RBC Nucleated RBC % (auto) VBG pH 7.41 VBG pCO2 28 VBG pO2 73 VBG HCO3 18 L VBG O2 Saturation 96.0 VBG Base Excess -5.2 Anion Gap Estim Creat Clear Calc Estimated GFR POC Glucose Random Glucose Lactic Acid Calcium Total Bilirubin AST ALT Alkaline Phosphatase Ammonia 26 C-Reactive Protein B-Natriuretic Peptide 1291 H Total Protein Albumin Urine Opiates Screen Ur Buprenorphine Scrn Ur Oxycodone Screen Urine Methadone Screen Urine Fentanyl Screen Ur Barbiturates Screen Ur Phencyclidine Scrn Ur Amphetamines Screen U Benzodiazepines Scrn Urine Cocaine Screen U Marijuana (THC) Screen Ethyl Alcohol Influenza Type A (PCR) Influenza Type B (PCR) RSV RNA Qual (PCR) SARS-CoV-2 RNA (RT-PCR) Imaging Radiologist's Impressions: Impressions Head CT 04/06/24 09:19 IMPRESSION: No acute intracranial abnormality. Electronically signed by: Bob Bob MD 04/06/2024 10:03 AM [employer]uling [employer] RP Chest X-Ray 04/06/24 10:19 IMPRESSION: Findings suggestive of pulmonary edema. Electronically signed by: Bob Bob MD 04/06/2024 10:50 AM [employer] Assessment and Plan (1) Acute hypoxic respiratory failure: Status: Acute (2) Acute metabolic encephalopathy: Status: Acute Plan Pt is a 38-year-old male with a PMH significant for CKD 5 not on HD, type 1 diabetes with gastroparesis and diabetic nephropathy, recent left AVF (3-4 months old), HLD, HTN, peripheral neuropathy, GERD,?and legally blind who presents to the ED with increased agitation and confusion. Pt will be admitted to the hospital for treatment further evaluation of acute hypoxic respiratory failure and acute metabolic encephalopathy likely in the setting of worsening CKD 5. Acute hypoxic respiratory failure in setting of pulmonary edema Pt hypoxic into the 70s on 2 L NC, currently on high-flow Repeat CXR showed worsening pulmonary edema Likely secondary to worsening CKD 5 Pt given Lasix 80 mg IV in the ED Will treat with Lasix 40 mg b.i.d. Monitor lytes, I/O Nephrology consult Monitor on telemetry Acute metabolic encephalopathy Pt with increased confusion, AOx1 only Likely uremic encephalopathy No indication of bacterial infection, no sepsis No indication to continue antibiotics at this time Treat as above Monitor mentation Hypertensive urgency BP as high as 208/113 Pt with long hx of poorly controlled BP Given hydralazine 5mg IV x2, and 10mg IV x1 in the ED Continue metoprolol, hydralazine, clonidine, nifedipine Pt also being diuresed Labetalol 5 mg IV p.r.n. for SBP >170 CKD5 Pt with worsening BUN, creatinine above baseline Left AVF placed 3-4 months ago, ?mature Continue Flomax for urinary retention Nephrology consult Type [address] sliding scale insulin Pt with home insulin pump Diabetic diet HLD Continue statin GERD Continue PPI Full Code Attending:?Dr. Cid DVT Prophylaxis: Heparin Pt will require a hospitalization of at least two nights for treatment of?acute hypoxic respiratory failure and acute metabolic encephalopathy likely in the setting of worsening CKD with fluid overload. Pt will require hospital level care for diuresing, close monitoring of electrolytes and mentation, administration of supplemental oxygen, and specialist consultation with Nephrology for possible emergent dialysis. Quality Stroke Does the patient have a stroke diagnosis?: No VTE Prior VTE?: No VTE Risk Level:: Medical - moderate - high VTE Device Contraindication: Treatment Not Indicated VTE Drug Contraindication: N/A - Med Ordered
--- NOTE | 2024-04-06 12:03 | PC.NURSE ---
Attending at bedside.
[2024-04-06] MEDS: hydrALAZINE HCl 20 MG/ML VIAL 10 MG IVPUSH (12:23)
--- NOTE | 2024-04-06 14:18 | PC.NURSE ---
Pt continues to have ongoing restlessness and agitation. Pt frequently pulls at medical equipment/tubing and attempts to get out of bed setting off bed/camera alarm. Pt confused and unable to follow commands. Soft (non-behavioral) restraints applied at 1347. Pt and restraints will be monitored per policy. Written documentation of restraints completed.
--- NOTE | 2024-04-06 14:33 | PC.NURSE ---
Family at bedside. Sp[place] [facility]. Update/status given. All questions answered to satisfaction.
--- NOTE | 2024-04-06 14:38 | PHA.MEDREC ---
Addendum entered by Radhika Farrar RPh 04/06/24 14:53: Reviewed by [facility]. We left insulin range as 0-70 units, as pt was unsure of what the dose was. Original Note: Pharmacy Consult ? Medication Reconciliation Pharmacy has completed the medication reconciliation. Spoke to patients family at bedside through [employer] service to confirm med list. Family had a medbox list of patients medications. Family states patient no longer takes Ezetimibe 10 mg and Tamsulosin 0.4 mg. Patient confirmed patient is on an insulin aspart U-100 though insulin pump (Omnipod Gen 5) family states she thinks max of 150 units daily, claims has 0-70 units daily. family states patient was taking Medrol Dose lucas at home. patient had 2 doses and then became altered mental and [place] [facility]
[2024-04-06] MEDS: Sevelamer Carbonate Tablet 800 MG TABLET PO ×2 (15:48→19:39)
[2024-04-06] MEDS: Heparin Sodium,Porcine 5,000 UNIT/ML VIAL 5000 UNIT SUBCUT ×2 (15:48→21:22)
[2024-04-06] MEDS: hydrALAZINE HCl 50 MG TABLET 100 MG PO ×2 (15:48→19:39)
[2024-04-06] MEDS: Metoprolol Succinate ER 100 MG TAB.ER.24H PO (15:48)
[2024-04-06] MEDS: NIFEdipine ER 60 MG TAB.ER.24 PO (17:22)
[2024-04-06] MEDS: 0.9 % Sodium Chloride Flush 3 ML SYRINGE IVFLUSH ×2 (17:24→21:23)
--- NOTE | 2024-04-06 17:50 | PC.NURSE ---
Pt transitioning to inpatient room. Restraint paperwork given to transportation staff (Jaciel) with instructions to given directly to RN.
--- NOTE | 2024-04-06 17:59 | PM.CNNEP ---
History of Present Illness Reason for Consult Consult date: 04/06/24 Chief Complaint Chief complaint: hypoxia, encephalopathy History of Present Illness Narrative: 38-year-old male with CKD 5 not on HD & recent left AVF among multiple other medical issues who presented to the ER with increased agitation and confusion. Complained of pain in right arm and LLQ, otherwise denies any acute medical complaints. While in the ED pt was noted to become increasingly confused. Pt then became hypoxic into the 70s on 2 L NC and minimally responsive to painful stimuli. Pt was then placed on high-flow. Repeat CXR showed increased pulmonary edema from x-ray a few hours prior, and pt was given IV Lasix. In the ER he was tachycardic, tachypneic , hypertensive & hypoxic. Labs were significant for normocytic anemia of 8.2/24.4, BUN 99, creatinine 8.41, POC 53, CRP 5.75, and BNP 1291. . No leukocytosis. No significant electrolyte abnormalities. Tox screen negative. Negative for flu, RSV, COVID. Initial CXR showed bilateral interstitial and bronchial wall thickening with new airspace disease right lower lobe. Repeat CXR 4 hours later showed diffusely increased interstitial opacities suggestive of pulmonary edema. CT?of head negative for acute intracranial abnormality. EKG demonstrated sinus tachycardia of 118 without ischemic changes. Pt was treated with DuoNebs, ceftriaxone, azithromycin, Ativan, hydralazine, and Lasix 80 mg IV. Pt was admitted to the hospital for treatment further evaluation of acute hypoxic respiratory failure and acute metabolic encephalopathy likely in the setting of worsening CKD 5. Nephrology has been consulted to assist in his clinical care during his current hospital stay Review of Systems Review of Systems Yes all other systems are reviewed and are negative [facility] Past Medical History Medical History Hypertensive urgency CKD (chronic kidney disease) stage 4, GFR 15-29 ml/min Hypertensive nephrosclerosis Diabetic gastroparesis Pancreatitis Vitamin D deficiency Hypocalcemia Background diabetic retinopathy associated with type 2 diabetes mellitus Diabetes type 1, uncontrolled Hemangioma of liver Legally blind Acid reflux Sciatica Gastritis Polyneuropathy Essential hypertension Hyperlipidemia LDL goal <70 Family History Family History Father Diabetes mellitus Mother Diabetes mellitus Maternal Grandfather Diabetes mellitus Maternal Grandmother Diabetes mellitus Surgical History Surgical History History of surgery Hx of endoscopy Hx of circumcision Hx of appendectomy Hx of eye surgery Social History Social History Household Members: Spouse Household Members Other:: and girlfriend Housing: House Do you presently have visiting nurse or other home services: Yes ([employer]) Alcohol intake: former Comment: refusing fall risk interventions. Patient Tobacco Use Status: Former Tobacco user Second Hand Smoke Exposure: No Substance Use Type: Marijuana Advance Directives: Yes Advance Directives on File: Yes Advance Directives Date on File: 04/13/20 service: No Current occupational status: disabled Meds Allergies Allergy/AdvReac Type Severity Reaction Status Date / Time losartan Allergy Gastrointestinal Verified 04/06/24 04:27 Upset valsartan AdvReac Unknown GI problems Verified 04/06/24 04:27 Active Medications: Current Medications Acetaminophen (Acetaminophen 325 Mg Tablet) 650 mg PO Q6H PRN PRN Reason: Pain, Mild 1-3,fever,headache Atorvastatin Calcium (Atorvastatin Calcium 80 Mg Tablet) 80 mg PO DAILY [place] Calcitriol (Calcitriol 0.25 Mcg Capsule) 0.5 mcg PO DAILY [place] Calcium Carbonate (Calcium Carbonate 750 Mg Tab.Chew) 750 mg PO Q4H PRN PRN Reason: Heartburn Clonidine HCl (Clonidine Hcl 0.1 Mg Tablet) 0.1 mg PO BID PRN; Protocol PRN Reason: For SBP > 140 Furosemide (Furosemide 40 Mg/4 Ml Vial) 40 mg IVPUSH BID@0900,1800 [facility]; Protocol Gabapentin (Gabapentin 100 Mg Capsule) 100 mg PO BEDTIME [place] Heparin Sodium (Porcine) (Heparin Sodium,Porcine 5,000 Unit/Ml Vial) 5,000 unit SUBCUT Q8H [place] Last Admin: 04/06/24 15:48 Dose: 5,000 unit Hydralazine HCl (Hydralazine Hcl 50 Mg Tablet) 100 mg PO TID [place]; Protocol Last Admin: 04/06/24 15:48 Dose: 100 mg Labetalol HCl (Labetalol Hcl 100 Mg/20 Ml Vial) 5 mg IVPUSH Q6H PRN PRN Reason: SBP >170 Magnesium Hydroxide (Milk Of Magnesia 30 Ml Oral.Susp) 30 ml PO DAILY PRN PRN Reason: Constipation Melatonin (Melatonin 3 Mg Tablet) 6 mg PO BEDTIME PRN PRN Reason: Insomnia Metoprolol Succinate (Metoprolol Succinate Er 100 Mg Tab.Er.24h) 100 mg PO DAILY [facility]; Protocol Last Admin: 04/06/24 15:48 Dose: 100 mg Nifedipine (Nifedipine Er 60 Mg Tab.Er.24) 60 mg PO DAILY [facility]; Protocol Last Admin: 04/06/24 17:22 Dose: 60 mg Nortriptyline HCl (Nortriptyline Hcl 25 Mg Capsule) 50 mg PO BEDTIME [facility] Omeprazole (Omeprazole 40 Mg Capsule.Dr) 40 mg PO DAILY@06 [facility] Ondansetron HCl (Ondansetron Hcl 4 Mg/2 Ml Vial) 4 mg IVPUSH Q8H PRN PRN Reason: Nausea and Vomiting Sevelamer Carbonate (Sevelamer Carbonate Tablet 800 Mg Tablet) 800 mg PO TID [facility] Last Admin: 04/06/24 15:48 Dose: 800 mg Sodium Chloride (0.9 % Sodium Chloride Flush 3 Ml Syringe) [facility] Last Admin: 04/06/24 17:24 Dose: 3 ml Home Medications ?Medication ?Instructions ?Recorded ?Confirmed ?Last Taken ?Type omeprazole 40 mg capsule,delayed 40 mg PO DAILY@0630 01/04/20 04/06/24 04/05/24 History release hydralazine 100 mg tablet 100 mg PO TID 05/13/22 04/06/24 04/05/24 History metoprolol succinate 100 mg 100 mg PO DAILY 02/10/23 04/06/24 04/05/24 History tablet,extended release 24 hr nortriptyline 50 mg capsule 50 mg PO BEDTIME 03/09/23 04/06/24 04/05/24 History acetaminophen 500 mg tablet 500 mg PO Q8H PRN moderate pain 11/30/23 04/06/24 Unknown History calcitriol 0.5 mcg capsule 0.5 mcg PO DAILY 04/06/24 04/06/24 04/05/24 History insulin aspart U-100 100 unit/mL 0 - 70 unit subcut DIRECTED 04/06/24 04/06/24 04/05/24 History subcutaneous solution insulin pump cart,auto,BT,G6/7 04/06/24 Unknown History (Omnipod 5 G6-G7 Pods (Gen 5) subcutaneous cartridge) sevelamer carbonate 800 mg tablet 800 mg PO TID 04/06/24 04/06/24 04/05/24 History Physical Exam Vital Signs: Last Vital Signs Temp 99.3 F 04/06/24 10:54 Pulse 110 H 04/06/24 17:47 Resp 26 H 04/06/24 17:47 BP 204/107 H 04/06/24 17:47 Pulse Ox 96 04/06/24 17:47 O2 Del Method Oxymask 04/06/24 17:47 O2 Flow Rate 4 04/06/24 17:47 Oxygen Flow Rate 15 04/06/24 04:26 BMI result Body Mass Index 24.3 Const General: no acute distress Neck Neck: Yes supple Resp Auscultation: diminished lung sounds Cardio Rate: regular rate GI Palpation (GI): Soft to palpation Neuro General: moves all extremities Results Lab Results 04/06/24 04:49 04/06/24 04:49 Lab results: Chemistry 04/06/24 04:49 Sodium 140 Potassium 5.1 D Carbon Dioxide 16 L BUN 99 H Creatinine 8.41 H* Calcium 7.9 L D Hematology 04/06/24 04:49 WBC 10.6 Hgb 8.2 L Plt Count 218 Assessment and Plan (1) Acute metabolic encephalopathy: Status: Acute (2) 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: Status: Acute (3) Hypertension: Qualifiers: Hypertension type: primary hypertension Qualified Code(s): I10 - Essential (primary) hypertension Status: Inactive (4) Metabolic acidosis: Status: Acute Plan Encephalopathy ? etiology- Uremia may be contributing but not the primary reason for his AMS( especially given acuity) Hypervolemic/Acidotic; On Diuretics. If clinically not improving, shall dialyze him tomorrow; If BP going up on medications- needs ICU admission for nitro / nicardipine drip . Likely will benefit from LP if his mentation is not improving. Shall closely follow him along. Time spent today on multiple occasions discussing the case, co ordinating management and patient encounter 60 minutes Total time managing care of this patient today: 60 minutes. Procedures Date of Service Date of Service: 04/06/24
[2024-04-06] MEDS: Furosemide 40 MG/4 ML VIAL IVPUSH (18:55)
[2024-04-06 19:03] LABS: Glucose, Whole Blood 121 mg/dL (60-115)
[2024-04-06] MEDS: Nortriptyline HCl 25 MG CAPSULE 50 MG PO (19:38)
[2024-04-06] MEDS: Gabapentin 100 MG CAPSULE PO (19:39)
[2024-04-06] MEDS: Nitroglycerin 0.1 MG PATCH.TD24 0.4 MG TRANSDERMA (21:09)
[2024-04-06 21:15] LABS: Glucose, Whole Blood 136 mg/dL (60-115)
[2024-04-07] VITALS (10 sets, daily range): BP systolic 121–160; BP diastolic 65–90; PULSE 103–110; RESP 16–20; TEMP 36.7–37.3; O2SAT 93–96
[2024-04-07] MEDS: LORazepam 2 MG/ML VIAL 1 MG IVPUSH ×2 (00:21→04:30)
[2024-04-07] MEDS: Heparin Sodium,Porcine 5,000 UNIT/ML VIAL 5000 UNIT SUBCUT ×3 (06:05→21:34)
[2024-04-07] MEDS: Omeprazole 40 MG CAPSULE.DR PO (06:05)
[2024-04-07 06:52] LABS: Glucose, Whole Blood 111 mg/dL (60-115)
[2024-04-07 07:36] LABS: Mean Corpuscular HGB Conc 33.3 g/dl (31.0-36.0); Mean Corpuscular Hemoglobin 29.6 pg (27.0-33.0); Mean Corpuscular Volume 88.9 fL (80.0-98.0); Mean Platelet Volume 9.3 fL (9.4-12.4); Platelet Count 221 X10*3/uL (160-400); Red Cell Distribution Width 13.1 % (11.0-16.0); White Blood Count 8.2 X10*3/uL (4.8-10.8)
[2024-04-07] MEDS: OLANZapine 10 MG VIAL 5 MG IM (07:39)
[2024-04-07] MEDS: Furosemide 40 MG/4 ML VIAL IVPUSH ×2 (07:41→17:23)
[2024-04-07] MEDS: calcitrioL 0.25 MCG CAPSULE 0.5 MCG PO (07:41)
[2024-04-07] MEDS: hydrALAZINE HCl 50 MG TABLET 100 MG PO ×3 (07:42→21:31)
[2024-04-07] MEDS: NIFEdipine ER 60 MG TAB.ER.24 PO (07:42)
[2024-04-07] MEDS: Sevelamer Carbonate Tablet 800 MG TABLET PO ×3 (07:42→21:34)
[2024-04-07] MEDS: Metoprolol Succinate ER 100 MG TAB.ER.24H PO (07:42)
[2024-04-07] MEDS: Atorvastatin Calcium 80 MG TABLET PO (07:42)
[2024-04-07] MEDS: 0.9 % Sodium Chloride Flush 3 ML SYRINGE IVFLUSH ×2 (07:52→17:29)
[2024-04-07 07:53] LABS: Anion Gap 21 (12-20); Blood Urea Nitrogen 99 mg/dL (9-16); Calcium 8.2 mg/dL (8.4-10.2); Carbon Dioxide 18 mmol/L (22-29); Chloride 111 mmol/L (96-108); Creatinine Clr Calc Pharmacy 10.8; Estimated Glomerular Filt Rate 7; Glucose Random 114 mg/dL (60-115); Potassium 4.7 mmol/L (3.3-5.1); Sodium 145 mmol/L (135-145)
--- NOTE | 2024-04-07 08:30 | MHC.CM.PN ---
04/07/24 08:26 - Case Mgmt Progress Note by Ignacia Shah Acct Num: [id number] : 1985 Patient Age: 38 Patient lives with his /HCP/Dali, who will transport to home at dc, and he is functionally independent. Home/self care is Patient's goal and CM has initiated and will follow for dc planning. PCP is Dr. Hong Rodríguez. Initialized on 04/07/24 08:26 - END OF NOTE
--- NOTE | 2024-04-07 09:05 | HO.PM.IMPN ---
Subjective Subjective Date of Service: 04/07/24 Review of Systems Review of Systems: Yes Unobtainable due to mental status Physical Exam Vital Signs: Vital Signs: Last Vital Signs Temp 99.2 F 04/07/24 06:57 Pulse 108 H 04/07/24 06:57 Resp 20 04/07/24 06:57 BP 121/78 04/07/24 06:57 Pulse Ox 94 04/07/24 06:57 O2 Del Method Oxymask 04/07/24 06:57 O2 Flow Rate 4 04/07/24 06:57 Oxygen Flow Rate 15 04/06/24 04:26 BMI result Body Mass Index 24.3 alert, confused, agitated, oriented to name only, blind, lungs clear, asterixis Objective Data Active Medications Acetaminophen (Acetaminophen 325 Mg Tablet) 650 mg PO Q6H PRN PRN Reason: Pain, Mild 1-3,fever,headache Atorvastatin Calcium (Atorvastatin Calcium 80 Mg Tablet) 80 mg PO DAILY [facility] Last Admin: 04/07/24 07:42 Dose: 80 mg Documented By: NIC Calcitriol (Calcitriol 0.25 Mcg Capsule) 0.5 mcg PO DAILY [facility] Last Admin: 04/07/24 07:41 Dose: 0.5 mcg Documented By: NIC Calcium Carbonate (Calcium Carbonate 750 Mg Tab.Chew) 750 mg PO Q4H PRN PRN Reason: Heartburn Clonidine HCl (Clonidine Hcl 0.1 Mg Tablet) 0.1 mg PO BID PRN; Protocol PRN Reason: For SBP > 140 Dextrose (Dextrose 50 % 25 Gm/50 Ml Syringe) 25 gm IVPUSH Q15M PRN; Protocol PRN Reason: per Hypoglycemia Standing Ord. Furosemide (Furosemide 40 Mg/4 Ml Vial) 40 mg IVPUSH BID@0900,1800 [facility]; Protocol Last Admin: 04/07/24 07:41 Dose: 40 mg Documented By: NIC Gabapentin (Gabapentin 100 Mg Capsule) 100 mg PO BEDTIME [facility] Last Admin: 04/06/24 19:39 Dose: 100 mg Documented By: OSWALDO Glucose (Glucose Gel 15 Gm Gel..Gram.) 15 gm PO Q15M PRN; Protocol PRN Reason: per Hypoglycemia Standing Ord. Heparin Sodium (Porcine) (Heparin Sodium,Porcine 5,000 Unit/Ml Vial) 5,000 unit SUBCUT Q8H [facility] Last Admin: 04/07/24 06:05 Dose: 5,000 unit Documented By: OSWALDO Hydralazine HCl (Hydralazine Hcl 50 Mg Tablet) 100 mg PO TID [facility]; Protocol Last Admin: 04/07/24 07:42 Dose: 100 mg Documented By: NIC Insulin Human Lispro (Insulin Lispro 100 Unit/Ml 3 Ml Vial) 0 unit SUBCUT QIDACHS [facility]; Protocol Last Admin: 04/07/24 07:51 Dose: Not Given Documented By: NIC Non-Admin Reason: No Insulin Coverage Labetalol HCl (Labetalol Hcl 100 Mg/20 Ml Vial) 5 mg IVPUSH Q6H PRN PRN Reason: SBP >170 Lidocaine HCl (Lidocaine Hcl 1 % Mpf 2 Ml Vial) 0.5 ml SUBCUT ONCE ONE Stop: 04/08/24 06:01 Magnesium Hydroxide (Milk Of Magnesia 30 Ml Oral.Susp) 30 ml PO DAILY PRN PRN Reason: Constipation Mannitol (Mannitol 12.5 Gm/50 Ml Vial) 12.5 gm IV ONCE ONE Stop: 04/08/24 06:01 Melatonin (Melatonin 3 Mg Tablet) 6 mg PO BEDTIME PRN PRN Reason: Insomnia Metoprolol Succinate (Metoprolol Succinate Er 100 Mg Tab.Er.24h) 100 mg PO DAILY [facility]; Protocol Last Admin: 04/07/24 07:42 Dose: 100 mg Documented By: NIC Nifedipine (Nifedipine Er 60 Mg Tab.Er.24) 60 mg PO DAILY [facility]; Protocol Last Admin: 04/07/24 07:42 Dose: 60 mg Documented By: NIC Nortriptyline HCl (Nortriptyline Hcl 25 Mg Capsule) 50 mg PO BEDTIME [facility] Last Admin: 04/06/24 19:38 Dose: 50 mg Documented By: OSWALDO Omeprazole (Omeprazole 40 Mg Capsule.) 40 mg PO DAILY@0630 [facility] Last Admin: 04/07/24 06:05 Dose: 40 mg Documented By: OSWALDO Ondansetron HCl (Ondansetron Hcl 4 Mg/2 Ml Vial) 4 mg IVPUSH Q8H PRN PRN Reason: Nausea and Vomiting Sevelamer Carbonate (Sevelamer Carbonate Tablet 800 Mg Tablet) 800 mg PO TID [facility] Last Admin: 04/07/24 07:42 Dose: 800 mg Documented By: NIC Sodium Chloride (0.9 % Sodium Chloride Flush 3 Ml Syringe) 3 ml IVFLUSH QSHIFT [facility] Last Admin: 04/07/24 07:52 Dose: 3 ml Documented By: NIC Labs 04/07/24 06:57 04/07/24 06:57 Labs: Laboratory Results - last 24 hr 04/06/24 04/06/24 04/06/24 04:49 09:29 10:09 MCV MCH MCHC RDW Plt Count MPV Absolute Nucleated RBC Nucleated RBC % (auto) VBG pH VBG pCO2 VBG pO2 VBG HCO3 VBG O2 Saturation VBG Base Excess Anion Gap Estim Creat Clear Calc Estimated GFR POC Glucose 118 H Random Glucose Calcium Ammonia C-Reactive Protein 5.75 H B-Natriuretic Peptide Urine Opiates Screen Not Detected Ur Buprenorphine Scrn Not Detected Ur Oxycodone Screen Not Detected Urine Methadone Screen Not Detected Urine Fentanyl Screen Not Detected Ur Barbiturates Screen Not Detected Ur Phencyclidine Scrn Not Detected Ur Amphetamines Screen Not Detected U Benzodiazepines Scrn Not Detected Urine Cocaine Screen Not Detected U Marijuana (THC) Screen Not Detected Ethyl Alcohol < 10 04/06/24 04/06/24 04/06/24 10:28 10:41 18:58 MCV MCH MCHC RDW Plt Count MPV Absolute Nucleated RBC Nucleated RBC % (auto) VBG pH 7.41 VBG pCO2 28 VBG pO2 73 VBG HCO3 18 L VBG O2 Saturation 96.0 VBG Base Excess -5.2 Anion Gap Estim Creat Clear Calc Estimated GFR POC Glucose 121 H Random Glucose Calcium Ammonia 26 C-Reactive Protein B-Natriuretic Peptide 1291 H Urine Opiates Screen Ur Buprenorphine Scrn Ur Oxycodone Screen Urine Methadone Screen Urine Fentanyl Screen Ur Barbiturates Screen Ur Phencyclidine Scrn Ur Amphetamines Screen U Benzodiazepines Scrn Urine Cocaine Screen U Marijuana (THC) Screen Ethyl Alcohol 04/06/24 04/07/24 04/07/24 21:05 06:48 06:57 MCV 88.9 MCH 29.6 MCHC 33.3 RDW 13.1 Plt Count 221 MPV 9.3 L Absolute Nucleated RBC 0.000 Nucleated RBC % (auto) 0.0 VBG pH VBG pCO2 VBG pO2 VBG HCO3 VBG O2 Saturation VBG Base Excess Anion Gap 21 H Estim Creat Clear Calc 10.8 Estimated GFR 7 POC Glucose 136 H 111 Random Glucose 114 Calcium 8.2 L Ammonia C-Reactive Protein B-Natriuretic Peptide Urine Opiates Screen Ur Buprenorphine Scrn Ur Oxycodone Screen Urine Methadone Screen Urine Fentanyl Screen Ur Barbiturates Screen Ur Phencyclidine Scrn Ur Amphetamines Screen U Benzodiazepines Scrn Urine Cocaine Screen U Marijuana (THC) Screen Ethyl Alcohol Assessment and Plan (1) Diabetes type 1, uncontrolled: Status: Inactive Plan 38M PMH CKD 5, type 1 diabetes, hypertension, hyperlipidemia, peripheral neuropathy, GERD, legally blind presented with altered mental status, hypoxia Acute toxic metabolic encephalopathy Differential includes medications, infection, uremic Nephrology following, plan to possibly start hemodialysis, patient has mature AV fistula Acute hypoxic respiratory failure secondary to acute pulmonary edema Continue IV Lasix, monitor I's and O's Wean O2 as tolerated Hypertensive urgency Continue hydralazine, metoprolol, nifedipine Resolved Type 1 diabetes Insulin sliding scale Hyperlipidemia Continue statin DVT prophylaxis with heparin subQ Full code reason for continued hospitalization: Altered mental status Quality Stroke Does the patient have a stroke diagnosis?: No VTE Prior VTE?: No VTE Risk Level:: Medical - moderate - high VTE Device Contraindication: Treatment Not Indicated VTE Drug Contraindication: N/A - Med Ordered
[2024-04-07 10:56] LABS: Glucose, Whole Blood 158 mg/dL (60-115)
[2024-04-07] MEDS: MannitoL 12.5 GM/50 ML VIAL IV (11:40)
[2024-04-07] MEDS: Lidocaine HCl 1 % MPF 2 ML VIAL 0.5 ML SUBCUT (11:40)
--- NOTE | 2024-04-07 13:31 | P.PNNP_ITS ---
Subjective Subjective Date of Service: 04/07/24 Interval history: Events noted. All recent data reviewed. D/W Hospitalist. Unable to get ROS due to AMS Physical Exam 2 Vital Signs: Vital Signs: Last Vital Signs Temp 98.7 F 04/07/24 10:43 Pulse 105 H 04/07/24 10:43 Resp 20 04/07/24 10:43 BP 135/90 H 04/07/24 10:43 Pulse Ox 96 04/07/24 10:43 O2 Del Method Oxymask 04/07/24 10:43 O2 Flow Rate 4 04/07/24 10:43 Oxygen Flow Rate 15 04/06/24 04:26 BMI result Body Mass Index 24.3 Const: General: no acute distress Neck: Neck: Yes supple Resp: Auscultation: diminished lung sounds Cardio: Rate: regular rate GI: Palpation (GI): Soft to palpation Neuro: General: moves all extremities Extrem: General: Yes no pedal edema Objective Data Labs 04/07/24 06:57 04/07/24 06:57 Labs: Laboratory Results - last 24 hr 04/06/24 04/06/24 04/07/24 18:58 21:05 06:48 WBC RBC Hgb Hct MCV MCH MCHC RDW Plt Count MPV Absolute Nucleated RBC Nucleated RBC % (auto) Sodium Potassium Chloride Carbon Dioxide Anion Gap BUN Creatinine Estim Creat Clear Calc Estimated GFR POC Glucose 121 H 136 H 111 Random Glucose Calcium 04/07/24 04/07/24 06:57 10:52 WBC 8.2 RBC 2.70 L Hgb 8.0 L Hct 24.0 L MCV 88.9 MCH 29.6 MCHC 33.3 RDW 13.1 Plt Count 221 MPV 9.3 L Absolute Nucleated RBC 0.000 Nucleated RBC % (auto) 0.0 Sodium 145 Potassium 4.7 Chloride 111 H Carbon Dioxide 18 L Anion Gap 21 H BUN 99 H Creatinine 8.88 H* Estim Creat Clear Calc 10.8 Estimated GFR 7 POC Glucose 158 H Random Glucose 114 Calcium 8.2 L Microbiology Microbiology Results: Microbiology 04/06/24 07:34 Blood - Venous Blood Culture - Preliminary No growth after 24 hours. 04/06/24 07:34 Blood - Venous Blood Culture - Preliminary No growth after 24 hours. Procedures Date of Service Date of Service: 04/07/24 Assessment & Plan Assessment and plan (1) Metabolic acidosis: Status: Acute (2) Acute metabolic encephalopathy: Status: Acute (3) End stage renal disease: Status: Acute Plan Encephalopathy ? etiology- Uremia may be contributing but not the primary reason for his AMS( especially given acuity) Hypervolemic/Acidotic; On Diuretics. shall dialyze him today, tomorrow & Sat; Likely will benefit from LP if his mentation is not improving. Shall closely follow him along. Progress Note: Quality Stroke Does the patient have a stroke diagnosis?: No
[2024-04-07 16:24] LABS: Glucose, Whole Blood 130 mg/dL (60-115)
[2024-04-07 21:00] LABS: Glucose, Whole Blood 122 mg/dL (60-115)
[2024-04-07] MEDS: Gabapentin 100 MG CAPSULE PO (21:31)
[2024-04-07] MEDS: Nortriptyline HCl 25 MG CAPSULE 50 MG PO (21:34)
[2024-04-08] VITALS (7 sets, daily range): BP systolic 137–179; BP diastolic 76–94; PULSE 102–114; RESP 16–20; TEMP 36.5–37.2; O2SAT 93–99
[2024-04-08] MEDS: Heparin Sodium,Porcine 5,000 UNIT/ML VIAL 5000 UNIT SUBCUT ×3 (06:13→21:51)
[2024-04-08] MEDS: 0.9 % Sodium Chloride Flush 3 ML SYRINGE IVFLUSH ×4 (06:14→21:51)
[2024-04-08] MEDS: Omeprazole 40 MG CAPSULE.DR PO (06:14)
[2024-04-08 07:12] LABS: Hematocrit 24.9 % (42.0-52.0); Hemoglobin 8.3 g/dl (14.0-18.0); Mean Corpuscular HGB Conc 33.3 g/dl (31.0-36.0); Mean Corpuscular Volume 89.9 fL (80.0-98.0); Mean Platelet Volume 9.1 fL (9.4-12.4); Platelet Count 244 X10*3/uL (160-400); Red Blood Count 2.77 X10*6/uL (4.60-5.80); Red Cell Distribution Width 12.4 % (11.0-16.0); White Blood Count 7.3 X10*3/uL (4.8-10.8)
[2024-04-08 07:37] LABS: Anion Gap 19 (12-20); Blood Urea Nitrogen 80 mg/dL (9-16); Calcium 8.5 mg/dL (8.4-10.2); Carbon Dioxide 20 mmol/L (22-29); Chloride 108 mmol/L (96-108); Creatinine Clr Calc Pharmacy 11.3; Estimated Glomerular Filt Rate 7; Glucose Random 112 mg/dL (60-115); Potassium 4.1 mmol/L (3.3-5.1); Sodium 143 mmol/L (135-145)
[2024-04-08 07:56] LABS: Glucose, Whole Blood 156 mg/dL (60-115)
[2024-04-08] MEDS: hydrALAZINE HCl 50 MG TABLET 100 MG PO ×3 (09:31→21:50)
[2024-04-08] MEDS: calcitrioL 0.25 MCG CAPSULE 0.5 MCG PO (09:31)
[2024-04-08] MEDS: Atorvastatin Calcium 80 MG TABLET PO (09:31)
[2024-04-08] MEDS: Furosemide 40 MG/4 ML VIAL IVPUSH (09:32)
--- NOTE | 2024-04-08 09:32 | P.PNIM_ITS ---
Subjective Subjective Date of Service: 04/08/24 Interval History: No complaints Physical Exam 2 Vital Signs: Vital Signs: Last Vital Signs Temp 98.3 F 04/08/24 07:24 Pulse 104 H 04/08/24 07:24 Resp 18 04/08/24 07:24 BP 161/94 H 04/08/24 07:24 Pulse Ox 97 04/08/24 07:24 O2 Del Method Oxymask 04/08/24 07:24 O2 Flow Rate 3 04/08/24 07:24 Oxygen Flow Rate 15 04/06/24 04:26 BMI result Body Mass Index 24.3 General: AO X 3, no acute distress, blind Resp: CTA bilateral, no accessory muscles used CVS: S1,S2,RRR GI: soft, non tender, non distended Neuro: motor grossly intact, alert Psych: appropriate affect, appropriate insight Objective Data Active Medications Acetaminophen (Acetaminophen 325 Mg Tablet) 650 mg PO Q6H PRN PRN Reason: Pain, Mild 1-3,fever,headache Atorvastatin Calcium (Atorvastatin Calcium 80 Mg Tablet) 80 mg PO DAILY [facility] Last Admin: 04/07/24 07:42 Dose: 80 mg Documented By: NIC Calcitriol (Calcitriol 0.25 Mcg Capsule) 0.5 mcg PO DAILY [facility] Last Admin: 04/07/24 07:41 Dose: 0.5 mcg Documented By: NIC Calcium Carbonate (Calcium Carbonate 750 Mg Tab.Chew) 750 mg PO Q4H PRN PRN Reason: Heartburn Clonidine HCl (Clonidine Hcl 0.1 Mg Tablet) 0.1 mg PO BID PRN; Protocol PRN Reason: For SBP > 140 Dextrose (Dextrose 50 % 25 Gm/50 Ml Syringe) 25 gm IVPUSH Q15M PRN; Protocol PRN Reason: per Hypoglycemia Standing Ord. Furosemide (Furosemide 40 Mg/4 Ml Vial) 40 mg IVPUSH BID@0900,1800 [facility]; Protocol Last Admin: 04/07/24 17:23 Dose: 40 mg Documented By: COY Gabapentin (Gabapentin 100 Mg Capsule) 100 mg PO BEDTIME [facility] Last Admin: 04/07/24 21:31 Dose: 100 mg Documented By: COY Glucose (Glucose Gel 15 Gm Gel..Gram.) 15 gm PO Q15M PRN; Protocol PRN Reason: per Hypoglycemia Standing Ord. Heparin Sodium (Porcine) (Heparin Sodium,Porcine 5,000 Unit/Ml Vial) 5,000 unit SUBCUT Q8H [facility] Last Admin: 04/08/24 06:13 Dose: 5,000 unit Documented By: GIOVANNI Hydralazine HCl (Hydralazine Hcl 50 Mg Tablet) 100 mg PO TID [facility]; Protocol Last Admin: 04/07/24 21:31 Dose: 100 mg Documented By: COY Insulin Human Lispro (Insulin Lispro 100 Unit/Ml 3 Ml Vial) 0 unit SUBCUT QIDACHS [facility]; Protocol Last Admin: 04/07/24 21:21 Dose: Not Given Documented By: COY Non-Admin Reason: No Insulin Coverage Labetalol HCl (Labetalol Hcl 100 Mg/20 Ml Vial) 5 mg IVPUSH Q6H PRN PRN Reason: SBP >170 Lidocaine HCl (Lidocaine Hcl 1 % Mpf 2 Ml Vial) 0.5 ml SUBCUT ONCE ONE Stop: 04/09/24 06:01 Magnesium Hydroxide (Milk Of Magnesia 30 Ml Oral.Susp) 30 ml PO DAILY PRN PRN Reason: Constipation Melatonin (Melatonin 3 Mg Tablet) 6 mg PO BEDTIME PRN PRN Reason: Insomnia Metoprolol Succinate (Metoprolol Succinate Er 100 Mg Tab.Er.24h) 100 mg PO DAILY [facility]; Protocol Last Admin: 04/07/24 07:42 Dose: 100 mg Documented By: NIC Nifedipine (Nifedipine Er 60 Mg Tab.Er.24) 60 mg PO DAILY [facility]; Protocol Last Admin: 04/07/24 07:42 Dose: 60 mg Documented By: NIC Nortriptyline HCl (Nortriptyline Hcl 25 Mg Capsule) 50 mg PO BEDTIME [facility] Last Admin: 04/07/24 21:34 Dose: 50 mg Documented By: COY Omeprazole (Omeprazole 40 Mg Capsule.) 40 mg PO DAILY@0630 [facility] Last Admin: 04/08/24 06:14 Dose: 40 mg Documented By: GIOVANNI Ondansetron HCl (Ondansetron Hcl 4 Mg/2 Ml Vial) 4 mg IVPUSH Q8H PRN PRN Reason: Nausea and Vomiting Sevelamer Carbonate (Sevelamer Carbonate Tablet 800 Mg Tablet) 800 mg PO TID [facility] Last Admin: 04/07/24 21:34 Dose: 800 mg Documented By: COY Sodium Chloride (0.9 % Sodium Chloride Flush 3 Ml Syringe) 3 ml IVFLUSH QSHIFT [facility] Last Admin: 04/08/24 06:14 Dose: 3 ml Documented By: GIOVANNI Labs 04/08/24 06:51 04/08/24 06:51 Labs: Laboratory Results - last 24 hr 04/07/24 04/07/24 04/07/24 10:52 16:19 20:56 MCV MCH MCHC RDW Plt Count MPV Absolute Nucleated RBC Nucleated RBC % (auto) Anion Gap Estim Creat Clear Calc Estimated GFR POC Glucose 158 H 130 H 122 H Random Glucose Calcium 04/08/24 04/08/24 06:51 07:23 MCV 89.9 MCH 30.0 MCHC 33.3 RDW 12.4 Plt Count 244 MPV 9.1 L Absolute Nucleated RBC 0.000 Nucleated RBC % (auto) 0.0 Anion Gap 19 Estim Creat Clear Calc 11.3 Estimated GFR 7 POC Glucose 156 H Random Glucose 112 Calcium 8.5 Microbiology Microbiology Results: Microbiology 04/06/24 07:34 Blood Culture - Preliminary Blood - Venous No growth after 24 hours. 04/06/24 07:34 Blood Culture - Preliminary Blood - Venous No growth after 24 hours. Assessment and Plan (1) Diabetes type 1, uncontrolled: Status: Inactive Plan 38M PMH CKD 5, type 1 diabetes, hypertension, hyperlipidemia, peripheral neuropathy, GERD, legally blind presented with altered mental status, hypoxia Acute toxic metabolic encephalopathy Differential includes medications, infection, uremic Had hemodialysis on 04/07/2024 Encephalopathy has resolved CKD 5 now progress to End-stage renal disease Started on hemodialysis, plan for 3 days the initiation, day 2 of 3 Acute hypoxic respiratory failure secondary to acute pulmonary edema Diuresed well we will stop IV Lasix Wean O2 as tolerated Hypertensive urgency Continue hydralazine, metoprolol, nifedipine Resolved Type 1 diabetes Insulin sliding scale Hyperlipidemia Continue statin DVT prophylaxis with heparin subQ Full code reason for continued hospitalization: Initiating hemodialysis Quality Stroke Does the patient have a stroke diagnosis?: No VTE Prior VTE?: No VTE Risk Level:: Medical - moderate - high VTE Device Contraindication: Treatment Not Indicated VTE Drug Contraindication: N/A - Med Ordered
[2024-04-08] MEDS: Insulin Lispro 100 UNIT/ML 3 ML VIAL SUBCUT ×3 (09:33→17:45)
[2024-04-08] MEDS: Metoprolol Succinate ER 100 MG TAB.ER.24H PO (09:34)
[2024-04-08] MEDS: NIFEdipine ER 60 MG TAB.ER.24 PO (09:34)
[2024-04-08] MEDS: Sevelamer Carbonate Tablet 800 MG TABLET PO ×3 (09:42→21:54)
[2024-04-08 11:23] LABS: Glucose, Whole Blood 289 mg/dL (60-115)
--- NOTE | 2024-04-08 13:03 | MHC.CM.PN ---
EMR REVIEWED, PER HOSPITALIST PT STILL AWAITING OUTPT HD LOCATION, PER NEPHRO PLAN FOR HD TODAY AND TOMORROW (SAT), PT WILL REMAIN INPT UNTIL OUPT HD SET UP, CM WILL CONT TO FOLLOW DC NEEDS.
--- NOTE | 2024-04-08 15:58 | P.PNNP_ITS ---
Subjective Subjective Date of Service: 04/08/24 Interval history: No complaints; Seen and examined this AM. Feels improved Physical Exam 2 Vital Signs: Vital Signs: Last Vital Signs Temp 98.8 F 04/08/24 11:52 Pulse 109 H 04/08/24 11:52 Resp 16 04/08/24 11:52 BP 145/76 H 04/08/24 11:52 Pulse Ox 99 04/08/24 11:52 O2 Del Method Nasal Cannula 04/08/24 11:52 O2 Flow Rate 3 04/08/24 11:52 Oxygen Flow Rate 15 04/06/24 04:26 BMI result Body Mass Index 24.3 Const: General: no acute distress Orientation/consciousness: patient oriented x3 Neck: Neck: Yes supple Resp: Auscultation: diminished lung sounds Cardio: Rate: regular rate GI: Palpation (GI): Soft to palpation Neuro: General: patient oriented x3 and moves all extremities Objective Data Labs 04/08/24 06:51 04/08/24 06:51 Labs: Laboratory Results - last 24 hr 04/07/24 04/07/24 04/08/24 16:19 20:56 06:51 WBC 7.3 RBC 2.77 L Hgb 8.3 L Hct 24.9 L MCV 89.9 MCH 30.0 MCHC 33.3 RDW 12.4 Plt Count 244 MPV 9.1 L Absolute Nucleated RBC 0.000 Nucleated RBC % (auto) 0.0 Sodium 143 Potassium 4.1 Chloride 108 Carbon Dioxide 20 L Anion Gap 19 BUN 80 H Creatinine 8.49 H* Estim Creat Clear Calc 11.3 Estimated GFR 7 POC Glucose 130 H 122 H Random Glucose 112 Calcium 8.5 04/08/24 04/08/24 07:23 11:07 WBC RBC Hgb Hct MCV MCH MCHC RDW Plt Count MPV Absolute Nucleated RBC Nucleated RBC % (auto) Sodium Potassium Chloride Carbon Dioxide Anion Gap BUN Creatinine Estim Creat Clear Calc Estimated GFR POC Glucose 156 H 289 H Random Glucose Calcium Microbiology Microbiology Results: Microbiology 04/06/24 07:34 Blood - Venous Blood Culture - Preliminary No growth after 48 hours. 04/06/24 07:34 Blood - Venous Blood Culture - Preliminary No growth after 48 hours. Procedures Date of Service Date of Service: 04/08/24 Assessment & Plan Assessment and plan (1) ESRD (end stage renal disease) on dialysis: Status: Acute Plan Encephalopathy ? etiology- Uremia Hypervolemic/Acidotic; Initiated on HD Now ESRD on HD Shall dialyze him today and tomorrow Outpt HD spot not arranged yet Shall closely follow him along. Progress Note: Quality Stroke Does the patient have a stroke diagnosis?: No
[2024-04-08 16:33] LABS: Glucose, Whole Blood 167 mg/dL (60-115)
[2024-04-08 21:46] LABS: Glucose, Whole Blood 148 mg/dL (60-115)
[2024-04-08] MEDS: Melatonin 3 MG TABLET 6 MG PO (21:50)
[2024-04-08] MEDS: Gabapentin 100 MG CAPSULE PO (21:51)
[2024-04-08] MEDS: Nortriptyline HCl 25 MG CAPSULE 50 MG PO (21:51)
[2024-04-09] VITALS (7 sets, daily range): BP systolic 127–142; BP diastolic 68–82; PULSE 96–106; RESP 18–20; TEMP 36.5–37.6; O2SAT 95–99
[2024-04-09] MEDS: Heparin Sodium,Porcine 5,000 UNIT/ML VIAL 5000 UNIT SUBCUT ×2 (06:18→20:10)
[2024-04-09] MEDS: Omeprazole 40 MG CAPSULE.DR PO (06:18)
[2024-04-09 07:30] LABS: Hematocrit 25.4 % (42.0-52.0); Hemoglobin 8.6 g/dl (14.0-18.0); Mean Corpuscular HGB Conc 33.9 g/dl (31.0-36.0); Mean Corpuscular Volume 88.5 fL (80.0-98.0); Mean Platelet Volume 9.3 fL (9.4-12.4); Platelet Count 293 X10*3/uL (160-400); Red Blood Count 2.87 X10*6/uL (4.60-5.80); Red Cell Distribution Width 11.9 % (11.0-16.0); White Blood Count 6.1 X10*3/uL (4.8-10.8)
[2024-04-09 07:46] LABS: Glucose, Whole Blood 285 mg/dL (60-115)
[2024-04-09 07:55] LABS: Anion Gap 19 (12-20); Blood Urea Nitrogen 49 mg/dL (9-16); Calcium 8.7 mg/dL (8.4-10.2); Carbon Dioxide 24 mmol/L (22-29); Chloride 103 mmol/L (96-108); Creatinine Clr Calc Pharmacy 14.2; Estimated Glomerular Filt Rate 9; Glucose Random 234 mg/dL (60-115); Sodium 142 mmol/L (135-145)
[2024-04-09] MEDS: NIFEdipine ER 60 MG TAB.ER.24 PO (09:00)
[2024-04-09] MEDS: Sevelamer Carbonate Tablet 800 MG TABLET PO ×2 (09:00→20:09)
[2024-04-09] MEDS: calcitrioL 0.25 MCG CAPSULE 0.5 MCG PO (09:00)
[2024-04-09] MEDS: hydrALAZINE HCl 50 MG TABLET 100 MG PO ×2 (09:00→20:09)
[2024-04-09] MEDS: Atorvastatin Calcium 80 MG TABLET PO (09:00)
[2024-04-09] MEDS: Metoprolol Succinate ER 100 MG TAB.ER.24H PO (09:00)
[2024-04-09] MEDS: 0.9 % Sodium Chloride Flush 3 ML SYRINGE IVFLUSH ×2 (09:03→20:10)
[2024-04-09] MEDS: Insulin Lispro 100 UNIT/ML 3 ML VIAL SUBCUT ×3 (09:04→20:09)
--- NOTE | 2024-04-09 09:07 | P.PNIM_ITS ---
Subjective Subjective Date of Service: 04/09/24 Interval History: No complaints Physical Exam 2 Vital Signs: Vital Signs: Last Vital Signs Temp 98.7 F 04/09/24 07:21 Pulse 106 H 04/09/24 09:00 Resp 18 04/09/24 07:21 BP 136/82 04/09/24 09:00 Pulse Ox 99 04/09/24 07:21 O2 Del Method Nasal Cannula 04/09/24 07:21 O2 Flow Rate 3 04/09/24 07:21 Oxygen Flow Rate 15 04/06/24 04:26 BMI result Body Mass Index 24.3 Const: General: no acute distress Orientation/consciousness: patient oriented x3 Neck: Neck: Yes supple Resp: Auscultation: diminished lung sounds Cardio: Rate: regular rate GI: Palpation (GI): Soft to palpation Neuro: General: patient oriented x3 and moves all extremities Objective Data Active Medications Acetaminophen (Acetaminophen 325 Mg Tablet) 650 mg PO Q6H PRN PRN Reason: Pain, Mild 1-3,fever,headache Atorvastatin Calcium (Atorvastatin Calcium 80 Mg Tablet) 80 mg PO DAILY [facility] Last Admin: 04/09/24 09:00 Dose: 80 mg Documented By: ZULEMA Calcitriol (Calcitriol 0.25 Mcg Capsule) 0.5 mcg PO DAILY [facility] Last Admin: 04/09/24 09:00 Dose: 0.5 mcg Documented By: ZULEMA Calcium Carbonate (Calcium Carbonate 750 Mg Tab.Chew) 750 mg PO Q4H PRN PRN Reason: Heartburn Clonidine HCl (Clonidine Hcl 0.1 Mg Tablet) 0.1 mg PO BID PRN; Protocol PRN Reason: For SBP > 140 Dextrose (Dextrose 50 % 25 Gm/50 Ml Syringe) 25 gm IVPUSH Q15M PRN; Protocol PRN Reason: per Hypoglycemia Standing Ord. Gabapentin (Gabapentin 100 Mg Capsule) 100 mg PO BEDTIME [facility] Last Admin: 04/08/24 21:51 Dose: 100 mg Documented By: HANNAH Glucose (Glucose Gel 15 Gm Gel..Gram.) 15 gm PO Q15M PRN; Protocol PRN Reason: per Hypoglycemia Standing Ord. Heparin Sodium (Porcine) (Heparin Sodium,Porcine 5,000 Unit/Ml Vial) 5,000 unit SUBCUT Q8H [facility] Last Admin: 04/09/24 06:18 Dose: 5,000 unit Documented By: HANNAH Hydralazine HCl (Hydralazine Hcl 50 Mg Tablet) 100 mg PO TID [facility]; Protocol Last Admin: 04/09/24 09:00 Dose: 100 mg Documented By: ZULEMA Insulin Human Lispro (Insulin Lispro 100 Unit/Ml 3 Ml Vial) 0 unit SUBCUT QIDACHS [facility]; Protocol Last Admin: 04/09/24 09:04 Dose: 6 unit Documented By: ZULEMA Labetalol HCl (Labetalol Hcl 100 Mg/20 Ml Vial) 5 mg IVPUSH Q6H PRN PRN Reason: SBP >170 Magnesium Hydroxide (Milk Of Magnesia 30 Ml Oral.Susp) 30 ml PO DAILY PRN PRN Reason: Constipation Melatonin (Melatonin 3 Mg Tablet) 6 mg PO BEDTIME PRN PRN Reason: Insomnia Last Admin: 04/08/24 21:50 Dose: 6 mg Documented By: HANNAH Metoprolol Succinate (Metoprolol Succinate Er 100 Mg Tab.Er.24h) 100 mg PO DAILY [facility]; Protocol Last Admin: 04/09/24 09:00 Dose: 100 mg Documented By: ZULEMA Nifedipine (Nifedipine Er 60 Mg Tab.Er.24) 60 mg PO DAILY [facility]; Protocol Last Admin: 04/09/24 09:00 Dose: 60 mg Documented By: ZULEMA Nortriptyline HCl (Nortriptyline Hcl 25 Mg Capsule) 50 mg PO BEDTIME [facility] Last Admin: 04/08/24 21:51 Dose: 50 mg Documented By: HANNAH Omeprazole (Omeprazole 40 Mg Capsule.) 40 mg PO DAILY@0630 [facility] Last Admin: 04/09/24 06:18 Dose: 40 mg Documented By: HANNAH Ondansetron HCl (Ondansetron Hcl 4 Mg/2 Ml Vial) 4 mg IVPUSH Q8H PRN PRN Reason: Nausea and Vomiting Sevelamer Carbonate (Sevelamer Carbonate Tablet 800 Mg Tablet) 800 mg PO TID [facility] Last Admin: 04/09/24 09:00 Dose: 800 mg Documented By: ZULEMA Sodium Chloride (0.9 % Sodium Chloride Flush 3 Ml Syringe) 3 ml IVFLUSH QSHIFT [facility] Last Admin: 04/09/24 09:03 Dose: 3 ml Documented By: HO.RUANES Labs 04/09/24 06:49 04/09/24 06:49 Labs: Laboratory Results - last 24 hr 04/08/24 04/08/24 04/08/24 11:07 16:28 21:37 MCV MCH MCHC RDW Plt Count MPV Absolute Nucleated RBC Nucleated RBC % (auto) Anion Gap Estim Creat Clear Calc Estimated GFR POC Glucose 289 H 167 H 148 H Random Glucose Calcium 04/09/24 04/09/24 06:49 07:41 MCV 88.5 MCH 30.0 MCHC 33.9 RDW 11.9 Plt Count 293 MPV 9.3 L Absolute Nucleated RBC 0.000 Nucleated RBC % (auto) 0.0 Anion Gap 19 Estim Creat Clear Calc 14.2 Estimated GFR 9 POC Glucose 285 H Random Glucose 234 H Calcium 8.7 Microbiology Microbiology Results: Microbiology 04/06/24 07:34 Blood Culture - Preliminary Blood - Venous No growth after 48 hours. 04/06/24 07:34 Blood Culture - Preliminary Blood - Venous No growth after 48 hours. Assessment and Plan (1) Diabetes type 1, uncontrolled: Status: Inactive Plan 38M PMH CKD 5, type 1 diabetes, hypertension, hyperlipidemia, peripheral neuropathy, GERD, legally blind presented with altered mental status, hypoxia Acute toxic metabolic encephalopathy Differential includes medications, infection, uremic started hemodialysis on 04/07/2024 Encephalopathy has resolved CKD 5 now progress to End-stage renal disease Started on hemodialysis, plan for 3 days the initiation, day 3 of 3 Acute hypoxic respiratory failure secondary to acute pulmonary edema Diuresed well wean O2 as tolerated Hypertensive urgency Continue hydralazine, metoprolol, nifedipine Resolved Type 1 diabetes Insulin sliding scale Hyperlipidemia Continue statin DVT prophylaxis with heparin subQ Full code reason for continued hospitalization: Initiating hemodialysis Quality Stroke Does the patient have a stroke diagnosis?: No VTE Prior VTE?: No VTE Risk Level:: Medical - moderate - high VTE Device Contraindication: Treatment Not Indicated VTE Drug Contraindication: N/A - Med Ordered
[2024-04-09] MEDS: Acetaminophen 325 MG TABLET 650 MG PO (09:10)
[2024-04-09] MEDS: Insulin Glargine,Hum.rec.anlog 100 UNIT/ML 10 ML VIAL 20 UNIT SUBCUT (09:48)
[2024-04-09 11:22] LABS: Glucose, Whole Blood 349 mg/dL (60-115)
[2024-04-09 16:40] LABS: Glucose, Whole Blood 122 mg/dL (60-115)
[2024-04-09 20:03] LABS: Glucose, Whole Blood 278 mg/dL (60-115)
[2024-04-09] MEDS: Gabapentin 100 MG CAPSULE PO (20:09)
[2024-04-09] MEDS: Melatonin 3 MG TABLET 6 MG PO (20:09)
[2024-04-09] MEDS: Nortriptyline HCl 25 MG CAPSULE 50 MG PO (20:09)
[2024-04-10] VITALS (7 sets, daily range): BP systolic 129–152; BP diastolic 62–77; PULSE 94–104; RESP 12–20; TEMP 36.4–37.4; O2SAT 97–99
[2024-04-10] MEDS: Omeprazole 40 MG CAPSULE.DR PO (06:21)
[2024-04-10] MEDS: Heparin Sodium,Porcine 5,000 UNIT/ML VIAL 5000 UNIT SUBCUT ×3 (06:21→20:43)
[2024-04-10 07:13] LABS: Glucose, Whole Blood 338 mg/dL (60-115)
[2024-04-10] MEDS: hydrALAZINE HCl 50 MG TABLET 100 MG PO ×3 (08:18→20:43)
[2024-04-10] MEDS: calcitrioL 0.25 MCG CAPSULE 0.5 MCG PO (08:18)
[2024-04-10] MEDS: NIFEdipine ER 60 MG TAB.ER.24 PO (08:18)
[2024-04-10] MEDS: Metoprolol Succinate ER 100 MG TAB.ER.24H PO (08:18)
[2024-04-10] MEDS: Atorvastatin Calcium 80 MG TABLET PO (08:18)
[2024-04-10] MEDS: Insulin Lispro 100 UNIT/ML 3 ML VIAL SUBCUT ×8 (08:18→20:44)
[2024-04-10] MEDS: Insulin Glargine,Hum.rec.anlog 100 UNIT/ML 10 ML VIAL 20 UNIT SUBCUT (08:19)
[2024-04-10] MEDS: 0.9 % Sodium Chloride Flush 3 ML SYRINGE IVFLUSH ×3 (08:21→20:45)
[2024-04-10] MEDS: Sevelamer Carbonate Tablet 800 MG TABLET PO ×3 (08:22→20:42)
--- NOTE | 2024-04-10 10:28 | HO.PM.IMPN ---
Subjective Subjective Date of Service: 04/10/24 Interval History: No complaints Physical Exam Vital Signs: Vital Signs: Last Vital Signs Temp 98.9 F 04/10/24 07:10 Pulse 104 H 04/10/24 07:10 Resp 12 04/10/24 07:10 BP 152/66 H 04/10/24 07:10 Pulse Ox 98 04/10/24 07:10 O2 Del Method Nasal Cannula 04/10/24 07:10 O2 Flow Rate 2 04/10/24 07:10 Oxygen Flow Rate 15 04/06/24 04:26 BMI result Body Mass Index 24.3 Const: General: no acute distress Orientation/consciousness: patient oriented x3 Neck: Neck: Yes supple Resp: Auscultation: diminished lung sounds Cardio: Rate: regular rate GI: Palpation (GI): Soft to palpation Neuro: General: patient oriented x3 and moves all extremities Objective Data Active Medications Acetaminophen (Acetaminophen 325 Mg Tablet) 650 mg PO Q6H PRN PRN Reason: Pain, Mild 1-3,fever,headache Last Admin: 04/09/24 09:10 Dose: 650 mg Documented By: ZULEMA Atorvastatin Calcium (Atorvastatin Calcium 80 Mg Tablet) 80 mg PO DAILY [facility] Last Admin: 04/10/24 08:18 Dose: 80 mg Documented By: ZULEMA Calcitriol (Calcitriol 0.25 Mcg Capsule) 0.5 mcg PO DAILY [facility] Last Admin: 04/10/24 08:18 Dose: 0.5 mcg Documented By: ZULEMA Calcium Carbonate (Calcium Carbonate 750 Mg Tab.Chew) 750 mg PO Q4H PRN PRN Reason: Heartburn Clonidine HCl (Clonidine Hcl 0.1 Mg Tablet) 0.1 mg PO BID PRN; Protocol PRN Reason: For SBP > 140 Dextrose (Dextrose 50 % 25 Gm/50 Ml Syringe) 25 gm IVPUSH Q15M PRN; Protocol PRN Reason: per Hypoglycemia Standing Ord. Gabapentin (Gabapentin 100 Mg Capsule) 100 mg PO BEDTIME [facility] Last Admin: 04/09/24 20:09 Dose: 100 mg Documented By: HANNAH Glucose (Glucose Gel 15 Gm Gel..Gram.) 15 gm PO Q15M PRN; Protocol PRN Reason: per Hypoglycemia Standing Ord. Heparin Sodium (Porcine) (Heparin Sodium,Porcine 5,000 Unit/Ml Vial) 5,000 unit SUBCUT Q8H [facility] Last Admin: 04/10/24 06:21 Dose: 5,000 unit Documented By: HANNAH Hydralazine HCl (Hydralazine Hcl 50 Mg Tablet) 100 mg PO TID [facility]; Protocol Last Admin: 04/10/24 08:18 Dose: 100 mg Documented By: ZULEMA Insulin Glargine (Insulin Glargine,Hum.Rec.Anlog 100 Unit/Ml 10 Ml Vial) 20 unit SUBCUT DAILY [facility] Last Admin: 04/10/24 08:19 Dose: 20 unit Documented By: ZULEMA Insulin Human Lispro (Insulin Lispro 100 Unit/Ml 3 Ml Vial) 0 unit SUBCUT QIDACHS [facility]; Protocol Last Admin: 04/10/24 08:19 Dose: 8 unit Documented By: ZULEMA Insulin Human Lispro (Insulin Lispro 100 Unit/Ml 3 Ml Vial) 5 unit SUBCUT QIDACHS [facility] Last Admin: 04/10/24 08:18 Dose: 5 unit Documented By: ZULEMA Labetalol HCl (Labetalol Hcl 100 Mg/20 Ml Vial) 5 mg IVPUSH Q6H PRN PRN Reason: SBP >170 Lidocaine HCl (Lidocaine Hcl 1 % Mpf 2 Ml Vial) 0.5 ml SUBCUT MOWEFR@1645 [facility] Magnesium Hydroxide (Milk Of Magnesia 30 Ml Oral.Susp) 30 ml PO DAILY PRN PRN Reason: Constipation Melatonin (Melatonin 3 Mg Tablet) 6 mg PO BEDTIME PRN PRN Reason: Insomnia Last Admin: 04/09/24 20:09 Dose: 6 mg Documented By: HANNAH Metoprolol Succinate (Metoprolol Succinate Er 100 Mg Tab.Er.24h) 100 mg PO DAILY [facility]; Protocol Last Admin: 04/10/24 08:18 Dose: 100 mg Documented By: ZULEMA Nifedipine (Nifedipine Er 60 Mg Tab.Er.24) 60 mg PO DAILY [facility]; Protocol Last Admin: 04/10/24 08:18 Dose: 60 mg Documented By: ZULEMA Nortriptyline HCl (Nortriptyline Hcl 25 Mg Capsule) 50 mg PO BEDTIME [facility] Last Admin: 04/09/24 20:09 Dose: 50 mg Documented By: HANNAH Omeprazole (Omeprazole 40 Mg Capsule.Dr) 40 mg PO DAILY@0630 [facility] Last Admin: 04/10/24 06:21 Dose: 40 mg Documented By: HANNAH Ondansetron HCl (Ondansetron Hcl 4 Mg/2 Ml Vial) 4 mg IVPUSH Q8H PRN PRN Reason: Nausea and Vomiting Sevelamer Carbonate (Sevelamer Carbonate Tablet 800 Mg Tablet) 800 mg PO TID [facility] Last Admin: 04/10/24 08:22 Dose: 800 mg Documented By: ZULEMA Sodium Chloride (0.9 % Sodium Chloride Flush 3 Ml Syringe) 3 ml IVFLUSH QSHIFT [facility] Last Admin: 04/10/24 08:21 Dose: 3 ml Documented By: ZULEMA Labs 04/09/24 06:49 04/09/24 06:49 Labs: Laboratory Results - last 24 hr 04/09/24 04/09/24 04/09/24 11:14 16:15 19:59 POC Glucose 349 H 122 H 278 H 04/10/24 07:08 POC Glucose 338 H Assessment and Plan (1) Diabetes type 1, uncontrolled: Status: Inactive Plan 38M PMH CKD 5, type 1 diabetes, hypertension, hyperlipidemia, peripheral neuropathy, GERD, legally blind presented with altered mental status, hypoxia Acute toxic metabolic encephalopathy Differential includes medications, infection, uremic started hemodialysis on 04/07/2024 Encephalopathy has resolved CKD 5 now progress to End-stage renal disease Started on hemodialysis, arranging outpatient spot Acute hypoxic respiratory failure secondary to acute pulmonary edema Diuresed well Now on room air during day but continues to have nocturnal hypoxia with apneic events will do sleep study to rule out obstructive sleep apnea Hypertensive urgency Continue hydralazine, metoprolol, nifedipine Resolved Type 1 diabetes with hyperglycemia Continue basal bolus Insulin with sliding scale Hyperlipidemia Continue statin DVT prophylaxis with heparin subQ Full code reason for continued hospitalization: Awaiting outpatient hemodialysis Quality Stroke Does the patient have a stroke diagnosis?: No VTE Prior VTE?: No VTE Risk Level:: Medical - moderate - high VTE Device Contraindication: Treatment Not Indicated VTE Drug Contraindication: N/A - Med Ordered
[2024-04-10 11:14] LABS: Glucose, Whole Blood 215 mg/dL (60-115)
[2024-04-10 16:54] LABS: Glucose, Whole Blood 180 mg/dL (60-115)
[2024-04-10 20:41] LABS: Glucose, Whole Blood 219 mg/dL (60-115)
[2024-04-10] MEDS: Gabapentin 100 MG CAPSULE PO (20:42)
[2024-04-10] MEDS: Nortriptyline HCl 25 MG CAPSULE 50 MG PO (20:42)
[2024-04-11 04:00] VITALS: BP 127/76; PULSE 102; RESP 16; TEMP 36.8; O2SAT 97
[2024-04-11] MEDS: Omeprazole 40 MG CAPSULE.DR PO (06:35)
[2024-04-11] MEDS: Heparin Sodium,Porcine 5,000 UNIT/ML VIAL 5000 UNIT SUBCUT ×3 (06:37→21:00)
[2024-04-11 07:06] VITALS: BP 142/83; PULSE 100; RESP 18; TEMP 37; O2SAT 96
[2024-04-11 07:12] LABS: Glucose, Whole Blood 279 mg/dL (60-115)
[2024-04-11 07:13] LABS: Hematocrit 26.7 % (42.0-52.0); Hemoglobin 9.1 g/dl (14.0-18.0); Mean Corpuscular HGB Conc 34.1 g/dl (31.0-36.0); Mean Corpuscular Hemoglobin 29.9 pg (27.0-33.0); Mean Corpuscular Volume 87.8 fL (80.0-98.0); Mean Platelet Volume 9.2 fL (9.4-12.4); Platelet Count 326 X10*3/uL (160-400); Red Blood Count 3.04 X10*6/uL (4.60-5.80); Red Cell Distribution Width 11.8 % (11.0-16.0); White Blood Count 8.5 X10*3/uL (4.8-10.8)
[2024-04-11 07:32] LABS: Anion Gap 21 (12-20); Blood Urea Nitrogen 72 mg/dL (9-16); Calcium 9.3 mg/dL (8.4-10.2); Carbon Dioxide 23 mmol/L (22-29); Chloride 97 mmol/L (96-108); Creatinine Clr Calc Pharmacy 10.4; Estimated Glomerular Filt Rate 6; Glucose Random 252 mg/dL (60-115); Sodium 137 mmol/L (135-145)
[2024-04-11] MEDS: Insulin Glargine,Hum.rec.anlog 100 UNIT/ML 10 ML VIAL 20 UNIT SUBCUT (09:53)
[2024-04-11] MEDS: Insulin Lispro 100 UNIT/ML 3 ML VIAL SUBCUT ×4 (09:53→13:26)
[2024-04-11] MEDS: hydrALAZINE HCl 50 MG TABLET 100 MG PO ×3 (09:54→21:04)
[2024-04-11] MEDS: Atorvastatin Calcium 80 MG TABLET PO (09:54)
[2024-04-11] MEDS: calcitrioL 0.25 MCG CAPSULE 0.5 MCG PO (09:54)
[2024-04-11] MEDS: NIFEdipine ER 60 MG TAB.ER.24 PO (09:54)
[2024-04-11] MEDS: Metoprolol Succinate ER 100 MG TAB.ER.24H PO (09:54)
[2024-04-11] MEDS: Sevelamer Carbonate Tablet 800 MG TABLET PO ×3 (09:54→21:04)
[2024-04-11] MEDS: 0.9 % Sodium Chloride Flush 3 ML SYRINGE IVFLUSH ×3 (09:54→21:05)
--- NOTE | 2024-04-11 09:57 | P.PNIM_ITS ---
Subjective Subjective Date of Service: 04/11/24 Interval History: No complaints Physical Exam 2 Vital Signs: Vital Signs: Last Vital Signs Temp 98.6 F 04/11/24 07:06 Pulse 100 04/11/24 07:06 Resp 18 04/11/24 07:06 BP 142/83 H 04/11/24 07:06 Pulse Ox 96 04/11/24 07:06 O2 Del Method Nasal Cannula 04/11/24 07:06 O2 Flow Rate 2 04/11/24 07:06 Oxygen Flow Rate 15 04/06/24 04:26 BMI result Body Mass Index 24.3 Const: General: no acute distress Orientation/consciousness: patient oriented x3 Neck: Neck: Yes supple Resp: Auscultation: diminished lung sounds Cardio: Rate: regular rate GI: Palpation (GI): Soft to palpation Neuro: General: patient oriented x3 and moves all extremities Objective Data Active Medications Acetaminophen (Acetaminophen 325 Mg Tablet) 650 mg PO Q6H PRN PRN Reason: Pain, Mild 1-3,fever,headache Last Admin: 04/09/24 09:10 Dose: 650 mg Documented By: ZULEMA Atorvastatin Calcium (Atorvastatin Calcium 80 Mg Tablet) 80 mg PO DAILY [facility] Last Admin: 04/11/24 09:54 Dose: 80 mg Documented By: GRETEL Calcitriol (Calcitriol 0.25 Mcg Capsule) 0.5 mcg PO DAILY [facility] Last Admin: 04/11/24 09:54 Dose: 0.5 mcg Documented By: GRETEL Calcium Carbonate (Calcium Carbonate 750 Mg Tab.Chew) 750 mg PO Q4H PRN PRN Reason: Heartburn Clonidine HCl (Clonidine Hcl 0.1 Mg Tablet) 0.1 mg PO BID PRN; Protocol PRN Reason: For SBP > 140 Dextrose (Dextrose 50 % 25 Gm/50 Ml Syringe) 25 gm IVPUSH Q15M PRN; Protocol PRN Reason: per Hypoglycemia Standing Ord. Gabapentin (Gabapentin 100 Mg Capsule) 100 mg PO BEDTIME [facility] Last Admin: 04/10/24 20:42 Dose: 100 mg Documented By: SARTHAK Glucose (Glucose Gel 15 Gm Gel..Gram.) 15 gm PO Q15M PRN; Protocol PRN Reason: per Hypoglycemia Standing Ord. Heparin Sodium (Porcine) (Heparin Sodium,Porcine 5,000 Unit/Ml Vial) 5,000 unit SUBCUT Q8H [facility] Last Admin: 04/11/24 06:37 Dose: 5,000 unit Documented By: SARTHAK Hydralazine HCl (Hydralazine Hcl 50 Mg Tablet) 100 mg PO TID [facility]; Protocol Last Admin: 04/11/24 09:54 Dose: 100 mg Documented By: GRETEL Insulin Glargine (Insulin Glargine,Hum.Rec.Anlog 100 Unit/Ml 10 Ml Vial) 20 unit SUBCUT DAILY [facility] Last Admin: 04/11/24 09:53 Dose: 20 unit Documented By: GRETEL Insulin Human Lispro (Insulin Lispro 100 Unit/Ml 3 Ml Vial) 0 unit SUBCUT QIDACHS [facility]; Protocol Last Admin: 04/11/24 09:53 Dose: 6 unit Documented By: GRETEL Insulin Human Lispro (Insulin Lispro 100 Unit/Ml 3 Ml Vial) 5 unit SUBCUT QIDACHS [facility] Last Admin: 04/11/24 09:53 Dose: 5 unit Documented By: GRETEL Labetalol HCl (Labetalol Hcl 100 Mg/20 Ml Vial) 5 mg IVPUSH Q6H PRN PRN Reason: SBP >170 Lidocaine HCl (Lidocaine Hcl 1 % Mpf 2 Ml Vial) 0.5 ml SUBCUT MOWEFR@1645 [facility] Magnesium Hydroxide (Milk Of Magnesia 30 Ml Oral.Susp) 30 ml PO DAILY PRN PRN Reason: Constipation Melatonin (Melatonin 3 Mg Tablet) 6 mg PO BEDTIME PRN PRN Reason: Insomnia Last Admin: 04/09/24 20:09 Dose: 6 mg Documented By: HANNAH Metoprolol Succinate (Metoprolol Succinate Er 100 Mg Tab.Er.24h) 100 mg PO DAILY [facility]; Protocol Last Admin: 04/11/24 09:54 Dose: 100 mg Documented By: GRETEL Nifedipine (Nifedipine Er 60 Mg Tab.Er.24) 60 mg PO DAILY [facility]; Protocol Last Admin: 04/11/24 09:54 Dose: 60 mg Documented By: GRETEL Nortriptyline HCl (Nortriptyline Hcl 25 Mg Capsule) 50 mg PO BEDTIME [facility] Last Admin: 04/10/24 20:42 Dose: 50 mg Documented By: SARTHAK Omeprazole (Omeprazole 40 Mg Capsule.Dr) 40 mg PO DAILY@0630 [facility] Last Admin: 04/11/24 06:35 Dose: 40 mg Documented By: SARTHAK Ondansetron HCl (Ondansetron Hcl 4 Mg/2 Ml Vial) 4 mg IVPUSH Q8H PRN PRN Reason: Nausea and Vomiting Sevelamer Carbonate (Sevelamer Carbonate Tablet 800 Mg Tablet) 800 mg PO TID [facility] Last Admin: 04/11/24 09:54 Dose: 800 mg Documented By: GRETEL Sodium Chloride (0.9 % Sodium Chloride Flush 3 Ml Syringe) 3 ml IVFLUSH QSHIFT [facility] Last Admin: 04/11/24 09:54 Dose: 3 ml Documented By: GRETEL Labs 04/11/24 06:23 04/11/24 06:23 Labs: Laboratory Results - last 24 hr 04/10/24 04/10/24 04/10/24 11:10 16:37 20:32 MCV MCH MCHC RDW Plt Count MPV Absolute Nucleated RBC Nucleated RBC % (auto) Anion Gap Estim Creat Clear Calc Estimated GFR POC Glucose 215 H 180 H 219 H Random Glucose Calcium 04/11/24 04/11/24 06:23 07:08 MCV 87.8 MCH 29.9 MCHC 34.1 RDW 11.8 Plt Count 326 MPV 9.2 L Absolute Nucleated RBC 0.000 Nucleated RBC % (auto) 0.0 Anion Gap 21 H Estim Creat Clear Calc 10.4 Estimated GFR 6 POC Glucose 279 H Random Glucose 252 H Calcium 9.3 D Microbiology Microbiology Results: Microbiology 04/06/24 07:34 Blood Culture - Final Blood - Venous No growth after 5 days. 04/06/24 07:34 Blood Culture - Final Blood - Venous No growth after 5 days. Assessment and Plan (1) Diabetes type 1, uncontrolled: Status: Inactive Plan 38M PMH CKD 5, type 1 diabetes, hypertension, hyperlipidemia, peripheral neuropathy, GERD, legally blind presented with altered mental status, hypoxia Acute toxic metabolic encephalopathy Differential includes medications, infection, uremic started hemodialysis on 04/07/2024 Encephalopathy has resolved CKD 5 now progress to End-stage renal disease Started on hemodialysis, arranging outpatient spot Acute hypoxic respiratory failure secondary to acute pulmonary edema Diuresed well Now on room air during day but continues to have nocturnal hypoxia with apneic events will do sleep study to rule out obstructive sleep apnea Hypertensive urgency Continue hydralazine, metoprolol, nifedipine Resolved Type 1 diabetes with hyperglycemia Continue basal bolus Insulin with sliding scale Hyperlipidemia Continue statin DVT prophylaxis with heparin subQ Full code reason for continued hospitalization: Awaiting outpatient hemodialysis Quality Stroke Does the patient have a stroke diagnosis?: No VTE Prior VTE?: No VTE Risk Level:: Medical - moderate - high VTE Device Contraindication: Treatment Not Indicated VTE Drug Contraindication: N/A - Med Ordered
[2024-04-11 11:11] VITALS: BP 145/84; PULSE 81; RESP 17; TEMP 36.4; O2SAT 96
[2024-04-11 11:17] LABS: Glucose, Whole Blood 344 mg/dL (60-115)
[2024-04-11 15:20] VITALS: BP 147/89; PULSE 99; RESP 18; TEMP 36.6; O2SAT 100
[2024-04-11 16:05] LABS: Glucose, Whole Blood 91 mg/dL (60-115)
[2024-04-11 20:00] VITALS: BP 166/96; PULSE 101; RESP 20; TEMP 36.2; O2SAT 99
[2024-04-11 20:59] LABS: Glucose, Whole Blood 110 mg/dL (60-115)
[2024-04-11] MEDS: Gabapentin 100 MG CAPSULE PO (21:04)
[2024-04-11] MEDS: Nortriptyline HCl 25 MG CAPSULE 50 MG PO (21:04)
[2024-04-12] VITALS (7 sets, daily range): BP systolic 115–163; BP diastolic 64–84; PULSE 90–116; RESP 16–19; TEMP 36.6–37.2; O2SAT 94–100
[2024-04-12] MEDS: Omeprazole 40 MG CAPSULE.DR PO (05:55)
[2024-04-12] MEDS: Heparin Sodium,Porcine 5,000 UNIT/ML VIAL 5000 UNIT SUBCUT ×3 (05:57→20:59)
[2024-04-12 07:47] LABS: Glucose, Whole Blood 294 mg/dL (60-115)
[2024-04-12 08:20] LABS: HBS Num1 391.46 mIU/mL (0-7.99); HBc Num1 0.47 S/CO (0.00-0.79); HBsAGNum1 0.22 S/CO (0.00-0.99); Hepatitis B Core Antibody Nonreactive (Nonreactive); Hepatitis B Surface Antigen Negative (Negative); ~Hepatitis B Surface Antibody REACTIVE (Nonreactive)
[2024-04-12] MEDS: Insulin Lispro 100 UNIT/ML 3 ML VIAL SUBCUT ×8 (08:47→20:59)
[2024-04-12] MEDS: Insulin Glargine,Hum.rec.anlog 100 UNIT/ML 10 ML VIAL 20 UNIT SUBCUT (08:47)
[2024-04-12] MEDS: NIFEdipine ER 60 MG TAB.ER.24 PO (08:48)
[2024-04-12] MEDS: Atorvastatin Calcium 80 MG TABLET PO (08:48)
[2024-04-12] MEDS: Metoprolol Succinate ER 100 MG TAB.ER.24H PO (08:48)
[2024-04-12] MEDS: hydrALAZINE HCl 50 MG TABLET 100 MG PO ×3 (08:48→19:59)
[2024-04-12] MEDS: Sevelamer Carbonate Tablet 800 MG TABLET PO ×3 (08:48→19:59)
[2024-04-12] MEDS: calcitrioL 0.25 MCG CAPSULE 0.5 MCG PO (08:49)
[2024-04-12] MEDS: 0.9 % Sodium Chloride Flush 3 ML SYRINGE IVFLUSH ×2 (08:50→18:06)
--- NOTE | 2024-04-12 08:56 | P.PNIM_ITS ---
Subjective Subjective Date of Service: 04/12/24 Interval History: No complaints Physical Exam 2 Vital Signs: Vital Signs: Last Vital Signs Temp 98.8 F 04/12/24 07:41 Pulse 105 H 04/12/24 07:41 Resp 18 04/12/24 07:41 BP 132/71 04/12/24 07:41 Pulse Ox 99 04/12/24 07:41 O2 Del Method Room Air 04/12/24 07:41 O2 Flow Rate 22 04/12/24 04:00 Oxygen Flow Rate 15 04/06/24 04:26 BMI result Body Mass Index 24.3 Const: General: no acute distress Orientation/consciousness: patient oriented x3 Neck: Neck: Yes supple Resp: Auscultation: diminished lung sounds Cardio: Rate: regular rate GI: Palpation (GI): Soft to palpation Neuro: General: patient oriented x3 and moves all extremities Objective Data Active Medications Acetaminophen (Acetaminophen 325 Mg Tablet) 650 mg PO Q6H PRN PRN Reason: Pain, Mild 1-3,fever,headache Last Admin: 04/09/24 09:10 Dose: 650 mg Documented By: ZULEMA Atorvastatin Calcium (Atorvastatin Calcium 80 Mg Tablet) 80 mg PO DAILY [facility] Last Admin: 04/12/24 08:48 Dose: 80 mg Documented By: GRETEL Calcitriol (Calcitriol 0.25 Mcg Capsule) 0.5 mcg PO DAILY [facility] Last Admin: 04/12/24 08:49 Dose: 0.5 mcg Documented By: GRETEL Calcium Carbonate (Calcium Carbonate 750 Mg Tab.Chew) 750 mg PO Q4H PRN PRN Reason: Heartburn Clonidine HCl (Clonidine Hcl 0.1 Mg Tablet) 0.1 mg PO BID PRN; Protocol PRN Reason: For SBP > 140 Dextrose (Dextrose 50 % 25 Gm/50 Ml Syringe) 25 gm IVPUSH Q15M PRN; Protocol PRN Reason: per Hypoglycemia Standing Ord. Gabapentin (Gabapentin 100 Mg Capsule) 100 mg PO BEDTIME [facility] Last Admin: 04/11/24 21:04 Dose: 100 mg Documented By: OSWALDO Glucose (Glucose Gel 15 Gm Gel..Gram.) 15 gm PO Q15M PRN; Protocol PRN Reason: per Hypoglycemia Standing Ord. Heparin Sodium (Porcine) (Heparin Sodium,Porcine 5,000 Unit/Ml Vial) 5,000 unit SUBCUT Q8H [facility] Last Admin: 04/12/24 05:57 Dose: 5,000 unit Documented By: OSWALDO Hydralazine HCl (Hydralazine Hcl 50 Mg Tablet) 100 mg PO TID [facility]; Protocol Last Admin: 04/12/24 08:48 Dose: 100 mg Documented By: GRETEL Insulin Glargine (Insulin Glargine,Hum.Rec.Anlog 100 Unit/Ml 10 Ml Vial) 20 unit SUBCUT DAILY [facility] Last Admin: 04/12/24 08:47 Dose: 20 unit Documented By: GRETEL Insulin Human Lispro (Insulin Lispro 100 Unit/Ml 3 Ml Vial) 0 unit SUBCUT QIDACHS [facility]; Protocol Last Admin: 04/12/24 08:47 Dose: 6 unit Documented By: GRETEL Insulin Human Lispro (Insulin Lispro 100 Unit/Ml 3 Ml Vial) 5 unit SUBCUT QIDACHS [facility] Last Admin: 04/12/24 08:49 Dose: 5 unit Documented By: GRETEL Labetalol HCl (Labetalol Hcl 100 Mg/20 Ml Vial) 5 mg IVPUSH Q6H PRN PRN Reason: SBP >170 Lidocaine HCl (Lidocaine Hcl 1 % Mpf 2 Ml Vial) 0.5 ml SUBCUT MOWEFR@1645 [facility] Magnesium Hydroxide (Milk Of Magnesia 30 Ml Oral.Susp) 30 ml PO DAILY PRN PRN Reason: Constipation Melatonin (Melatonin 3 Mg Tablet) 6 mg PO BEDTIME PRN PRN Reason: Insomnia Last Admin: 04/09/24 20:09 Dose: 6 mg Documented By: HANNAH Metoprolol Succinate (Metoprolol Succinate Er 100 Mg Tab.Er.24h) 100 mg PO DAILY [facility]; Protocol Last Admin: 04/12/24 08:48 Dose: 100 mg Documented By: GRETEL Nifedipine (Nifedipine Er 60 Mg Tab.Er.24) 60 mg PO DAILY [facility]; Protocol Last Admin: 04/12/24 08:48 Dose: 60 mg Documented By: GRETEL Nortriptyline HCl (Nortriptyline Hcl 25 Mg Capsule) 50 mg PO BEDTIME [facility] Last Admin: 04/11/24 21:04 Dose: 50 mg Documented By: OSWALDO Omeprazole (Omeprazole 40 Mg Capsule.Dr) 40 mg PO DAILY@0630 [facility] Last Admin: 04/12/24 05:55 Dose: 40 mg Documented By: OSWALDO Ondansetron HCl (Ondansetron Hcl 4 Mg/2 Ml Vial) 4 mg IVPUSH Q8H PRN PRN Reason: Nausea and Vomiting Sevelamer Carbonate (Sevelamer Carbonate Tablet 800 Mg Tablet) 800 mg PO TID [facility] Last Admin: 04/12/24 08:48 Dose: 800 mg Documented By: GRETEL Sodium Chloride (0.9 % Sodium Chloride Flush 3 Ml Syringe) 3 ml IVFLUSH QSHIFT [facility] Last Admin: 04/12/24 08:50 Dose: 3 ml Documented By: GRETEL Labs 04/11/24 06:23 04/11/24 06:23 Labs: Laboratory Results - last 24 hr 04/11/24 04/11/24 04/11/24 11:11 15:58 20:55 POC Glucose 344 H 91 110 04/12/24 07:43 POC Glucose 294 H Microbiology Microbiology Results: Microbiology 04/06/24 07:34 Blood Culture - Final Blood - Venous No growth after 5 days. 04/06/24 07:34 Blood Culture - Final Blood - Venous No growth after 5 days. Assessment and Plan (1) Diabetes type 1, uncontrolled: Status: Inactive Plan 38M PMH CKD 5, type 1 diabetes, hypertension, hyperlipidemia, peripheral neuropathy, GERD, legally blind presented with altered mental status, hypoxia Acute toxic metabolic encephalopathy Differential includes medications, infection, uremic started hemodialysis on 04/07/2024 Encephalopathy has resolved CKD 5 now progress to End-stage renal disease Started on hemodialysis, arranging outpatient spot Acute hypoxic respiratory failure secondary to acute pulmonary edema Diuresed well Now on room air during day but continues to have nocturnal hypoxia with apneic events will do sleep study to rule out obstructive sleep apnea Hypertensive urgency Continue hydralazine, metoprolol, nifedipine Resolved Type 1 diabetes with hyperglycemia Continue basal bolus Insulin with sliding scale Hyperlipidemia Continue statin DVT prophylaxis with heparin subQ Full code reason for continued hospitalization: Awaiting outpatient hemodialysis Quality Stroke Does the patient have a stroke diagnosis?: No VTE Prior VTE?: No VTE Risk Level:: Medical - moderate - high VTE Device Contraindication: Treatment Not Indicated VTE Drug Contraindication: N/A - Med Ordered
[2024-04-12 11:16] LABS: Glucose, Whole Blood 291 mg/dL (60-115)
--- NOTE | 2024-04-12 12:57 | P.PNNP_ITS ---
Subjective Subjective Date of Service: 04/12/24 Interval history: No complaints. Due HD tomorrow. Outpatient HD spot requested Physical Exam 2 Vital Signs: Vital Signs: Last Vital Signs Temp 98.0 F 04/12/24 11:08 Pulse 90 04/12/24 11:08 Resp 18 04/12/24 11:08 BP 124/64 04/12/24 11:08 Pulse Ox 95 04/12/24 11:08 O2 Del Method Nasal Cannula 04/12/24 11:08 O2 Flow Rate 2 04/12/24 11:08 Oxygen Flow Rate 15 04/06/24 04:26 BMI result Body Mass Index 24.3 Const: General: no acute distress Neck: Neck: Yes supple Resp: Auscultation: diminished lung sounds Cardio: Rate: regular rate GI: Palpation (GI): Soft to palpation Neuro: General: moves all extremities Objective Data Labs 04/11/24 06:23 04/11/24 06:23 Labs: Laboratory Results - last 24 hr 04/11/24 04/11/24 04/11/24 08:04 15:58 20:55 POC Glucose 91 110 Hep Bs Antigen Negative Hep Bs Antibody REACTIVE Hep B Core Total Ab Nonreactive 04/12/24 04/12/24 07:43 11:12 POC Glucose 294 H 291 H Hep Bs Antigen Hep Bs Antibody Hep B Core Total Ab Microbiology Microbiology Results: Microbiology 04/06/24 07:34 Blood - Venous Blood Culture - Final No growth after 5 days. 04/06/24 07:34 Blood - Venous Blood Culture - Final No growth after 5 days. Procedures Date of Service Date of Service: 04/12/24 Assessment & Plan Assessment and plan (1) ESRD (end stage renal disease) on dialysis: Status: Acute Plan Encephalopathy ? etiology- Uremia Hypervolemic/Acidotic; Initiated on HD Now ESRD on HD Shall dialyze him tomorrow Outpt HD spot - requested Shall closely follow him along. Progress Note: Quality Stroke Does the patient have a stroke diagnosis?: No
--- NOTE | 2024-04-12 14:26 | MHC.CM.PN ---
EMR reviewed and per MD rounds, pt is not medically cleared for discharge due to awaiting outpt HD slot.
[2024-04-12 16:51] LABS: Glucose, Whole Blood 340 mg/dL (60-115)
--- NOTE | 2024-04-12 19:51 | PC.RT ---
due to equipment issued we are unable to do in-patient sleep studies at this time.
[2024-04-12] MEDS: Nortriptyline HCl 25 MG CAPSULE 50 MG PO (19:59)
[2024-04-12] MEDS: Gabapentin 100 MG CAPSULE PO (20:00)
[2024-04-12 20:23] LABS: Glucose, Whole Blood 309 mg/dL (60-115)
[2024-04-13] VITALS: BP 158/88; PULSE 106; RESP 20; TEMP 36.7; O2SAT 97
[2024-04-13] MEDS: 0.9 % Sodium Chloride Flush 3 ML SYRINGE IVFLUSH ×2 (01:27→08:20)
[2024-04-13 04:00] VITALS: BP 123/81; PULSE 102; RESP 16; TEMP 36.7; O2SAT 99
[2024-04-13] MEDS: Heparin Sodium,Porcine 5,000 UNIT/ML VIAL 5000 UNIT SUBCUT (05:04)
[2024-04-13] MEDS: Omeprazole 40 MG CAPSULE.DR PO (05:09)
[2024-04-13 07:29] VITALS: BP 161/83; PULSE 102; RESP 20; TEMP 36.9; O2SAT 98
[2024-04-13 07:54] LABS: Glucose, Whole Blood 323 mg/dL (60-115)
[2024-04-13 08:19] VITALS: BP 161/83; PULSE 102
[2024-04-13] MEDS: Metoprolol Succinate ER 100 MG TAB.ER.24H PO (08:19)
[2024-04-13] MEDS: hydrALAZINE HCl 50 MG TABLET 100 MG PO (08:19)
[2024-04-13] MEDS: Sevelamer Carbonate Tablet 800 MG TABLET PO (08:19)
[2024-04-13] MEDS: NIFEdipine ER 60 MG TAB.ER.24 PO (08:19)
[2024-04-13] MEDS: Atorvastatin Calcium 80 MG TABLET PO (08:20)
[2024-04-13] MEDS: Insulin Lispro 100 UNIT/ML 3 ML VIAL SUBCUT ×2 (08:20)
[2024-04-13] MEDS: Insulin Glargine,Hum.rec.anlog 100 UNIT/ML 10 ML VIAL 20 UNIT SUBCUT (08:20)
[2024-04-13] MEDS: calcitrioL 0.25 MCG CAPSULE 0.5 MCG PO (08:20)
--- NOTE | 2024-04-13 09:22 | P.PNIM_ITS ---
Subjective Subjective Date of Service: 04/13/24 Interval History: No complaints Physical Exam 2 Vital Signs: Vital Signs: Last Vital Signs Temp 98.4 F 04/13/24 07:29 Pulse 102 H 04/13/24 08:19 Resp 20 04/13/24 07:29 BP 161/83 H 04/13/24 08:19 Pulse Ox 98 04/13/24 07:29 O2 Del Method Nasal Cannula 04/13/24 07:29 O2 Flow Rate 2 04/13/24 07:29 Oxygen Flow Rate 15 04/06/24 04:26 BMI result Body Mass Index 24.3 Const: General: no acute distress Neck: Neck: Yes supple Resp: Auscultation: diminished lung sounds Cardio: Rate: regular rate GI: Palpation (GI): Soft to palpation Neuro: General: moves all extremities Objective Data Active Medications Acetaminophen (Acetaminophen 325 Mg Tablet) 650 mg PO Q6H PRN PRN Reason: Pain, Mild 1-3,fever,headache Last Admin: 04/09/24 09:10 Dose: 650 mg Documented By: ZULEMA Atorvastatin Calcium (Atorvastatin Calcium 80 Mg Tablet) 80 mg PO DAILY [facility] Last Admin: 04/13/24 08:20 Dose: 80 mg Documented By: DORA Calcitriol (Calcitriol 0.25 Mcg Capsule) 0.5 mcg PO DAILY [facility] Last Admin: 04/13/24 08:20 Dose: 0.5 mcg Documented By: DORA Calcium Carbonate (Calcium Carbonate 750 Mg Tab.Chew) 750 mg PO Q4H PRN PRN Reason: Heartburn Clonidine HCl (Clonidine Hcl 0.1 Mg Tablet) 0.1 mg PO BID PRN; Protocol PRN Reason: For SBP > 140 Dextrose (Dextrose 50 % 25 Gm/50 Ml Syringe) 25 gm IVPUSH Q15M PRN; Protocol PRN Reason: per Hypoglycemia Standing Ord. Gabapentin (Gabapentin 100 Mg Capsule) 100 mg PO BEDTIME [facility] Last Admin: 04/12/24 20:00 Dose: 100 mg Documented By: CARRI Glucose (Glucose Gel 15 Gm Gel..Gram.) 15 gm PO Q15M PRN; Protocol PRN Reason: per Hypoglycemia Standing Ord. Heparin Sodium (Porcine) (Heparin Sodium,Porcine 5,000 Unit/Ml Vial) 5,000 unit SUBCUT Q8H [facility] Last Admin: 04/13/24 05:04 Dose: 5,000 unit Documented By: BRAULIO Hydralazine HCl (Hydralazine Hcl 50 Mg Tablet) 100 mg PO TID [facility]; Protocol Last Admin: 04/13/24 08:19 Dose: 100 mg Documented By: DORA Insulin Glargine (Insulin Glargine,Hum.Rec.Anlog 100 Unit/Ml 10 Ml Vial) 20 unit SUBCUT DAILY [facility] Last Admin: 04/13/24 08:20 Dose: 20 unit Documented By: DORA Insulin Human Lispro (Insulin Lispro 100 Unit/Ml 3 Ml Vial) 0 unit SUBCUT QIDACHS [facility]; Protocol Last Admin: 04/13/24 08:20 Dose: 8 unit Documented By: DORA Insulin Human Lispro (Insulin Lispro 100 Unit/Ml 3 Ml Vial) 5 unit SUBCUT QIDACHS [facility] Last Admin: 04/13/24 08:20 Dose: 5 unit Documented By: DORA Labetalol HCl (Labetalol Hcl 100 Mg/20 Ml Vial) 5 mg IVPUSH Q6H PRN PRN Reason: SBP >170 Lidocaine HCl (Lidocaine Hcl 1 % Mpf 2 Ml Vial) 0.5 ml SUBCUT MOWEFR@1645 [facility] Last Admin: 04/12/24 17:15 Dose: Not Given Documented By: GRETEL Non-Admin Reason: Not my opt at this time Magnesium Hydroxide (Milk Of Magnesia 30 Ml Oral.Susp) 30 ml PO DAILY PRN PRN Reason: Constipation Melatonin (Melatonin 3 Mg Tablet) 6 mg PO BEDTIME PRN PRN Reason: Insomnia Last Admin: 04/09/24 20:09 Dose: 6 mg Documented By: HANNAH Metoprolol Succinate (Metoprolol Succinate Er 100 Mg Tab.Er.24h) 100 mg PO DAILY [facility]; Protocol Last Admin: 04/13/24 08:19 Dose: 100 mg Documented By: DORA Nifedipine (Nifedipine Er 60 Mg Tab.Er.24) 60 mg PO DAILY [facility]; Protocol Last Admin: 04/13/24 08:19 Dose: 60 mg Documented By: DORA Nortriptyline HCl (Nortriptyline Hcl 25 Mg Capsule) 50 mg PO BEDTIME [facility] Last Admin: 04/12/24 19:59 Dose: 50 mg Documented By: HO.COOK Omeprazole (Omeprazole 40 Mg Capsule.) 40 mg PO DAILY@0630 [facility] Last Admin: 04/13/24 05:09 Dose: 40 mg Documented By: BRAULIO Ondansetron HCl (Ondansetron Hcl 4 Mg/2 Ml Vial) 4 mg IVPUSH Q8H PRN PRN Reason: Nausea and Vomiting Sevelamer Carbonate (Sevelamer Carbonate Tablet 800 Mg Tablet) 800 mg PO TID [facility] Last Admin: 04/13/24 08:19 Dose: 800 mg Documented By: DORA Sodium Chloride (0.9 % Sodium Chloride Flush 3 Ml Syringe) 3 ml IVFLUSH QSHIFT [facility] Last Admin: 04/13/24 08:20 Dose: 3 ml Documented By: DORA Labs 04/11/24 06:23 04/11/24 06:23 Labs: Laboratory Results - last 24 hr 04/11/24 04/12/24 04/12/24 08:04 11:12 16:23 POC Glucose 291 H 340 H Hep Bs Antigen Negative Hep Bs Antibody REACTIVE Hep B Core Total Ab Nonreactive 04/12/24 04/13/24 20:11 07:27 POC Glucose 309 H 323 H Hep Bs Antigen Hep Bs Antibody Hep B Core Total Ab Assessment and Plan (1) Diabetes type 1, uncontrolled: Status: Inactive Plan 38M PMH CKD 5, type 1 diabetes, hypertension, hyperlipidemia, peripheral neuropathy, GERD, legally blind presented with altered mental status, hypoxia Acute toxic metabolic encephalopathy Differential includes medications, infection, uremic started hemodialysis on 04/07/2024 Encephalopathy has resolved CKD 5 now progress to End-stage renal disease Started on hemodialysis, arranging outpatient [facility] MWF [id number] Acute hypoxic respiratory failure secondary to acute pulmonary edema Diuresed well Now on room air during day but continues to have nocturnal hypoxia with apneic events uanble to do sleep study inpaitent should obtain outpatient Hypertensive urgency Continue hydralazine, metoprolol, nifedipine Resolved Type 1 diabetes with hyperglycemia Continue basal bolus Insulin with sliding scale Hyperlipidemia Continue statin DVT prophylaxis with heparin subQ Full code reason for continued hospitalization: Awaiting outpatient hemodialysis transportation Quality Stroke Does the patient have a stroke diagnosis?: No VTE Prior VTE?: No VTE Risk Level:: Medical - moderate - high VTE Device Contraindication: Treatment Not Indicated VTE Drug Contraindication: N/A - Med Ordered
--- NOTE | 2024-04-13 10:29 | P.DS_ITS ---
DS: Providers Provider Date of Service: 04/13/24 Date of admission: 04/06/24 13:04 Date of discharge: 04/13/24 Primary care physician: Hong Rodríguez MD Consults: 04/06/24 13:09 Consult to Nephrology Routine Consulting Provider: [facility] Reason for consultation: ?uremic encephalopathy, CKD5 not on HD DS: Diagnosis Discharge Diagnosis (1) Diabetes type 1, uncontrolled: Status: Inactive DS: Summary Hospital Course Hospital Course: From initial hpi: 38-year-old male with a PMH significant for CKD 5 not on HD, type 1 diabetes with gastroparesis and diabetic nephropathy, recent left AVF (3-4 months old), HLD, HTN, peripheral neuropathy, GERD, and legally blind who presents to the ED with increased agitation and confusion. Apparently called EMS after pt was noted to be restless and agitated, confused and unable to sleep last night. Pt seen and evaluated by bedside where he is noted to be restless and confused, alert and oriented fully to self only. Pt states people have told him that he is at the hospital, but [place] and being taken care of by [facility] nurses. Complains of pain in right arm and LLQ, otherwise denies any acute medical complaints. While in the ED pt was noted to become increasingly confused and speaking nonsensically. Pt then became hypoxic into the 70s on 2 L NC and minimally responsive to painful stimuli. Pt was then placed on high-flow. Repeat CXR showed increased pulmonary edema from x-ray a few hours prior, and pt was given IV Lasix. In the ED pt was tachycardic up to 122, tachypneic up to 21, hypertensive up to 208/113, and noted to be desatting into the 70s on 2L NC which improved on high- flow. Labs were significant for normocytic anemia of 8.2/24.4, BUN 99, creatinine 8.41, POC 53, CRP 5.75, and BNP 1291. Bicarb low at 18, but similar to prior. No leukocytosis. No significant electrolyte abnormalities. Tox screen negative. Negative for flu, RSV, COVID. Initial CXR showed bilateral interstitial and bronchial wall thickening with new airspace disease right lower lobe. Repeat CXR 4 hours later showed diffusely increased interstitial opacities suggestive of pulmonary edema. CT of head negative for acute intracranial abnormality. EKG demonstrated sinus tachycardia of 118 without ischemic changes. Pt was treated with DuoNebs, ceftriaxone, azithromycin, Ati van, hydralazine, and Lasix 80 mg IV. Pt will be admitted to the hospital for treatment further evaluation of acute hypoxic respiratory failure and acute metabolic encephalopathy likely in the setting of worsening CKD 5. Hospital course: Patient was admitted for acute toxic metabolic encephalopathy. Differential included medication induced, infection, uremia. Patient was empirically started on hemodialysis and encephalopathy resolved. He will continue hemodialysis at [facility] on actually having you on Thursday and Thursday. For acute hypoxic respiratory failure secondary to acute pulmonary edema he was given IV Lasix and diuresed well he is now on room air. Patient continues to have apneic and hypoxic events at night. Likely this is obstructive sleep apnea and patient should follow up outpatient for testing. Course complicated by hypertensive urgency which resolved with diuresis, hydralazine, metoprolol, nifedipine. For type 1 diabetes with hyperglycemia he was continued on basal bolus insulin. For hyperlipidemia was continued on statin. Time Attestation Discharge Coordination Time (in mins): 32 Quality: Safe Use of Opioids Does Pt have an Active Cancer Diagnosis on the Problem List?: No Quality: Stroke Does the patient have a stroke diagnosis?: No Physical Exam Vital Signs: Vital Signs: Last Vital Signs Temp 98.4 F 04/13/24 07:29 Pulse 102 H 04/13/24 08:19 Resp 20 04/13/24 07:29 BP 161/83 H 04/13/24 08:19 Pulse Ox 98 04/13/24 07:29 O2 Del Method Nasal Cannula 04/13/24 07:29 O2 Flow Rate 2 04/13/24 07:29 Oxygen Flow Rate 15 04/06/24 04:26 BMI result Body Mass Index 24.3 Const: General: no acute distress Neck: Neck: Yes supple Resp: Auscultation: diminished lung sounds Cardio: Rate: regular rate GI: Palpation (GI): Soft to palpation Neuro: General: moves all extremities DS: Data Data Completed and Pending Completed studies during hospitalization [Text1]: Procedures Insertion of Endotracheal Airway into Trachea, Via Natural or Artificial Opening Endoscopic (07/29/21) Insertion of Infusion Device into Right Internal Jugular Vein, Percutaneous Approach (11/19/23) Insertion of Infusion Device into Superior Vena Cava, Percutaneous Approach (07/29/21) Introduction of Vasopressor into Peripheral Vein, Percutaneous Approach (07/29/21) Respiratory Ventilation, Greater than 96 Consecutive Hours (07/29/21) Ultrasonography of Right Jugular Veins, Guidance (11/19/23) Ultrasonography of Superior Vena Cava, Guidance (07/29/21) Labs on day of discharge: Laboratory Results - last 24 hr 04/11/24 04/12/24 04/12/24 08:04 11:12 16:23 POC Glucose 291 H 340 H Hep Bs Antigen Negative Hep Bs Antibody REACTIVE Hep B Core Total Ab Nonreactive 04/12/24 04/13/24 20:11 07:27 POC Glucose 309 H 323 H Hep Bs Antigen Hep Bs Antibody Hep B Core Total Ab Discharge Plan Discharge Anticipated Discharge Date/Time: 04/13/24 10:27 Patient Disposition: Home, Self-Care Discharge Diagnosis: uremic encephalopathy, esrd Referrals: Name,MD Hong [Primary Care Provider] - 1 Week Discharge Medications: Continued atorvastatin 80 mg tablet 80 mg PO DAILY Qty: 30 6RF (DME) Omnipod 5 G6 Intro Kit (Gen 5) Cartridge See Rx Instructions .Route Qty: 1 4RF Rx Instructions: As directed (DME) pen needle, diabetic [BD Ultra-Fine Shannan Pen Needle] 32 gauge x 5/32 needle See Rx Instructions .ROUTE QID Qty: 100 3RF Rx Instructions: As directed prn pump failure up to 4 times daily (DME) Omnipod 5 G6-G7 Pods (Gen 5) Cartridge See Rx Instructions .ROUTE .COMPLEX Qty: 10 2RF Dose Instruction: CHANGE EVERY 72 HOURS DIRECTED Rx Instructions: CHANGE EVERY 72 HOURS DIRECTED gabapentin 100 mg capsule 100 mg PO BEDTIME Qty: 90 0RF nifedipine [Procardia XL] 60 mg tablet extended release 24hr 60 mg PO DAILY Qty: 60 0RF metoprolol succinate 100 mg tablet extended release 24 hr 100 mg PO DAILY Rx Instructions: take with the 50mg acetaminophen 500 mg tablet 500 mg PO Q8H PRN (Reason: moderate pain) insulin aspart U-100 100 unit/mL solution 0 - 70 unit subcut DIRECTED calcitriol 0.5 mcg capsule 0.5 mcg PO DAILY sevelamer carbonate 800 mg tablet 800 mg PO TID (DME) Omnipod 5 G6-G7 Pods (Gen 5) Cartridge SUBCUT Q3D omeprazole 40 mg capsule,delayed release(DR/EC) 40 mg PO DAILY@0630 hydralazine 100 mg tablet 100 mg PO TID nortriptyline 50 mg capsule 50 mg PO BEDTIME (DME) Ketone Urine Test Strip See Rx Instructions .ROUTE .MEDSUPPLY Qty: 25 3RF Rx Instructions: Prn glucose over 250, nausea or vomiting, tid clonidine HCl 0.1 mg tablet 0.1 mg PO BID PRN (Reason: For SBP > 140) Qty: 60 0RF Protocol: Hold for SBP< HOLD for SBP < : 90 Discharge Orders: Discharge Order (Routine); Ordered 04/13/24 Ordered By: Roberto Cid Diet: Diabetic diet Activity on Discharge: As tolerated Stand Alone Forms: Patient Portal Discharge page Print Language: Northern Irish Care Plan Goals: manage esrd Health Concerns: esrd Plan of Treatment: HD at [facility] on [address] Assessment: see above
[2024-04-13 11:29] VITALS: BP 128/75; PULSE 86; RESP 18; TEMP 36.6; O2SAT 96
[2024-04-13 11:35] LABS: Glucose, Whole Blood 238 mg/dL (60-115)
--- NOTE | 2024-04-13 11:47 | MHC.CM.PN ---
Pt is medically cleared for discharge home with new outpt HD services. This CM met with pt to discuss discharge plan, pt states his will transport him home today, and that she can transport him to his dialysis as well.
--- NOTE | 2024-04-13 12:45 | PM.PNNEP ---
Subjective Subjective Date of Service: 04/13/24 Interval history: No complaints; Due HD today Physical Exam Vital Signs: Vital Signs: Last Vital Signs Temp 97.8 F 04/13/24 11:29 Pulse 86 04/13/24 11:29 Resp 18 04/13/24 11:29 BP 128/75 04/13/24 11:29 Pulse Ox 96 04/13/24 11:29 O2 Del Method Room Air 04/13/24 11:29 O2 Flow Rate 2 04/13/24 07:29 Oxygen Flow Rate 15 04/06/24 04:26 BMI result Body Mass Index 24.3 Const: General: no acute distress Eyes: EOM: EOMs intact bilaterally Neck: Neck: Yes supple Resp: Auscultation: diminished lung sounds Cardio: Rate: regular rate GI: Palpation (GI): Soft to palpation Neuro: General: moves all extremities Objective Data Labs 04/11/24 06:23 04/11/24 06:23 Labs: Laboratory Results - last 24 hr 04/12/24 04/12/24 04/13/24 16:23 20:11 07:27 POC Glucose 340 H 309 H 323 H 04/13/24 11:27 POC Glucose 238 H Microbiology Microbiology Results: Microbiology 04/06/24 07:34 Blood - Venous Blood Culture - Final No growth after 5 days. 04/06/24 07:34 Blood - Venous Blood Culture - Final No growth after 5 days. Procedures Date of Service Date of Service: 04/13/24 Assessment & Plan Assessment and plan (1) ESRD (end stage renal disease) on dialysis: Status: Acute Plan Encephalopathy ? etiology- Uremia Hypervolemic/Acidotic; Initiated on HD Now ESRD on HD Shall dialyze him today Outpt HD spot - arranged- [facility] @ 6.45 AM Shall closely follow him along in the out patient HD Unit when D/[place] Progress Note: Quality Stroke Does the patient have a stroke diagnosis?: No
[2024-04-13 15:26] LABS: Glucose, Whole Blood 182 mg/dL (60-115)
== END 2024-04-13 15:52 | disposition home or self-care (01) | DRG 470 ==
LOC: HO.ED 11:14 → HO.EDOVER 13:18 → HO.IMC 16:29
PROVIDERS: Internal Medicine Nephrology; Registered Nurse Emergency; Admitting Provider Student in an Organized Health Care Education/Training Program; Emergency Provider Emergency Medicine; PCP Internal Medicine Geriatric Medicine; Visit Provider Internal Medicine
DX: I12.0 Hypertensive chronic kidney disease with stage 5 chronic kidney disease or end stage renal disease (principal); J96.01 Acute respiratory failure with hypoxia; G92.8 Other toxic encephalopathy; J81.0 Acute pulmonary edema; E10.42 Type 1 diabetes mellitus with diabetic polyneuropathy; K31.84 Gastroparesis; E10.43 Type 1 diabetes mellitus with diabetic autonomic (poly)neuropathy; D63.1 Anemia in chronic kidney disease; N18.6 End stage renal disease; E10.65 Type 1 diabetes mellitus with hyperglycemia; G47.33 Obstructive sleep apnea (adult) (pediatric); Z99.2 Dependence on renal dialysis; H54.8 Legal blindness, as defined in USA; E78.5 Hyperlipidemia, unspecified; K21.9 Gastro-esophageal reflux disease without esophagitis; I16.0 Hypertensive urgency; Z20.822 Contact with and (suspected) exposure to COVID-19; Z79.899 Other long term (current) drug therapy
CPT/HCPCS: 0241U; 36415; 70450; 71045; 80048; 80053; 80307; 82140; 82803; 82947; 83605; 83880; 85025; 85027; 86140; 86704; 86706; 87040; 87340; 90999; 93005; 94640; 99285; C1758; J0360; J0456; J0696; J1644; J1940; J2003; J2060; J2150; J2359

== ENCOUNTER → 2024-04-06 05:06 | Outpatient (BNV) | payer MEDICAID, SELFPAY | PROVIDERS: Emergency Provider Emergency Medicine; PCP Internal Medicine Geriatric Medicine; Visit Provider Internal Medicine Cardiovascular Disease | DX: R00.0 Tachycardia, unspecified (principal) | CPT/HCPCS: 93010 ==

== ENCOUNTER → 2024-04-06 05:06 | Outpatient (BNV) | payer MEDICAID, SELFPAY | PROVIDERS: PCP Internal Medicine Geriatric Medicine; Visit Provider Radiology Diagnostic Radiology | DX: R91.8 Other nonspecific abnormal finding of lung field (principal); J81.0 Acute pulmonary edema; R41.82 Altered mental status, unspecified | CPT/HCPCS: 70450; 71045 ==

== ENCOUNTER → 2024-04-06 13:04 | Outpatient (BNV) | payer MEDICAID, SELFPAY | PROVIDERS: Admitting Provider Student in an Organized Health Care Education/Training Program; Emergency Provider Emergency Medicine; PCP Internal Medicine Geriatric Medicine; Visit Provider Internal Medicine Nephrology | DX: N18.6 End stage renal disease (principal); Z99.2 Dependence on renal dialysis | CPT/HCPCS: 90935; 99223; 99232 ==

== ENCOUNTER → 2024-04-06 13:04 | Outpatient (BNV) | payer MEDICAID, SELFPAY | PROVIDERS: Admitting Provider Student in an Organized Health Care Education/Training Program; Emergency Provider Emergency Medicine; PCP Internal Medicine Geriatric Medicine; Visit Provider Student in an Organized Health Care Education/Training Program | DX: E10.65 Type 1 diabetes mellitus with hyperglycemia (principal); G93.41 Metabolic encephalopathy; R41.82 Altered mental status, unspecified | CPT/HCPCS: 99223; 99233 ==

== ENCOUNTER 2024-04-25 14:51 | Outpatient (AMB) | payer MEDICAID, SELFPAY ==
[2024-04-25 14:53] VITALS: BP 100/52; PULSE 81; O2SAT 98
--- NOTE | 2024-04-25 14:53 | HO.NEPHOV ---
Vital Signs 04/25/24 14:53 Weight 154 lb BP 100/52 L Blood Pressure Location Rt brachial Position Sitting Pulse 81 Pulse Source Pulse Oximeter Pulse Oximetry (%) 98 Oxygen Delivery Method Room Air Intake Visit Reasons: CKD-Conf Crotch Piece Baster Required: Yes Crotch Piece Baster Name: Loc [id number] Accompanied by: Spouse Allergies losartan Allergy (Verified 04/25/24 14:53) Gastrointestinal Upset valsartan Adverse Reaction (Unknown, Verified 04/25/24 14:53) GI problems Medication List - Last Reconciled 04/25/24 by Onur Bejarano MD acetaminophen 500 mg PO Q8H PRN acetone (urine) test (Ketone Urine Test strips) Prn glucose over 250, nausea or vomiting, tid atorvastatin 80 mg PO DAILY calcitriol 0.5 mcg PO DAILY clonidine HCl 0.1 mg See Protocol PO BID PRN gabapentin 100 mg PO BEDTIME hydralazine 100 mg PO TID insulin aspart U-100 0 - 70 units subcut DIRECTED insulin pump cart,auto,BT,G6/7 (Omnipod 5 G6-G7 Pods (Gen 5) subcutaneous cartridge) insulin pump cart,auto,BT,G6/7 (Omnipod 5 G6-G7 Pods (Gen 5) subcutaneous cartridge) CHANGE EVERY 72 HOURS DIRECTED insulin pump cart,auto,BT-cntr (Omnipod 5 G6 Intro Kit (Gen 5) subcutaneous cartridge with controller) As directed metoprolol succinate ER 100 mg PO DAILY nifedipine ER (Procardia XL) 60 mg PO DAILY nortriptyline 50 mg PO BEDTIME omeprazole 40 mg PO DAILY@0630 pen needle, diabetic (BD Ultra-Fine Shannan Pen Needle) As directed prn pump failure up to 4 times daily sevelamer carbonate 800 mg PO TID HPI Comments Details: 37-year-old man with type 1 diabetes mellitus and advanced CKD. He has underlying diabetic nephropathy. He was accompanied by his caregiver. Interpretation service was used. Today he has no new complaints. He is compliant with his medication. Blood sugar seems to be well controlled at home. Has AVF in left forearm- about 2 months old. Not mature yet Created by -VAscular on 06/14/23 12/03/23 Recently admitted with DKA and KAYODE Temp HD catheter was inserted and removed HD was not down Cr decreased from 12 to 6.5 mg/dL c/o burning sensation in both hands at night HE claims to have stopped using marijuana since discharge 01/11/2024 Home blood pressure readings are rather low 02/08/24. Doing about the same 04/26/2024. Recently started on hemodialysis. He is on Thursday 3 times a week. Accompanied by caregiver [facility] Medical History Hypertensive urgency CKD (chronic kidney disease) stage 4, GFR 15-29 ml/min Hypertensive nephrosclerosis Diabetic gastroparesis Pancreatitis Vitamin D deficiency Hypocalcemia Background diabetic retinopathy associated with type 2 diabetes mellitus Diabetes type 1, uncontrolled Hemangioma of liver Legally blind Acid reflux Sciatica Gastritis Polyneuropathy Essential hypertension Hyperlipidemia LDL goal <70 Surgical History History of surgery Hx of endoscopy Hx of circumcision Hx of appendectomy Hx of eye surgery Family History Father Diabetes mellitus Mother Diabetes mellitus Maternal Grandfather Diabetes mellitus Maternal Grandmother Diabetes mellitus Social History Household Members: Spouse Household Members Other:: and girlfriend Housing: House Do you presently have visiting nurse or other home services: Yes ([employer]) Alcohol intake: former Comment: 1 TO 1 SITTER Patient Tobacco Use Status: Former Tobacco user Second Hand Smoke Exposure: No Substance Use Type: Marijuana Advance Directives Date on File: 04/13/20 service: No Current occupational status: disabled Physical Exam Vital Signs: Last Vital Signs Pulse 81 04/25/24 14:53 BP 100/52 L 04/25/24 14:53 Pulse Ox 98 04/25/24 14:53 Oxygen Delivery Method Room Air 04/25/24 14:53 Const Other: Legally blind General: comfortable Nutritional Appearance: well nourished Orientation/consciousness: patient oriented x3 HEENT Head: No normal to inspection Mouth: moist mucous membranes Neck Neck: Yes supple and Yes no JVD Resp Auscultation: clear to auscultation bilaterally and no rales Cardio Jugular venous distension: no JVD Palpation: no palpable S3 and no palpable S4 Heart sounds: no rubs GI Palpation (GI): Soft to palpation and nontender Percussion: No Fluid wave present General: Yes no CVA tenderness Back/Spine/Pelvis Back: no CVA tenderness Skin General skin exam: no rashes or lesions noted Neuro General: patient oriented x3 Extrem General: Yes no pedal edema and No clubbing Results Reviewed Nephrology Results: Hgb 9.1 g/dl (14.0-18.0) L 04/11/24 WBC 8.5 X10*3/uL (4.8-10.8) 04/11/24 Plt Count 326 X10*3/uL (160-400) 04/11/24 Sodium 137 mmol/L (135-145) 04/11/24 Potassium 4.0 mmol/L (3.3-5.1) 04/11/24 Chloride 97 mmol/L (96-108) 04/11/24 Carbon Dioxide 23 mmol/L (22-29) 04/11/24 BUN 72 mg/dL (9-16) H 04/11/24 Creatinine 9.14 mg/dL (0.5-1.4) H* 04/11/24 Calcium 9.3 mg/dL (8.4-10.2) 04/11/24 Assessment & Plan Assessment & Plan (1) Diabetes type 1, uncontrolled: Code(s): E10.65 - Type 1 diabetes mellitus with hyperglycemia Category: Medical (2) 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 Renal function stable at baseline. No signs or symptoms of uremia. Fluid status is acceptable. Goal is to slow the portion disease. Current continue with current regimen. Maintain blood pressure less than 130/80 and A1c less than 7%. Continue to avoid nephrotoxic agents. He is being evaluated by [facility] transplant service for preemptive transplantation He has on the active list Resistant hypertension blood pressure well controlled I have encouraged him to stay on low-sodium diet. No changes were made. He is mild anemia no indication for Epogen yet. SHPT: On calcitriol Ca has increased; PTH is supressed WIll STOP Calcitriol and watch ( 1/20/25) AVFistula: Created on 06/05/23; Not ready for use. Needs revision before it can be accessed Burning sensation in hands Probably has diabetic neuropathy Keep Gabapentin 100 mg QHS Changed clonidine to 0.1 mg p.r.n. and administer if systolic blood pressure more than 140 mm Hg at home. No signs or symptoms of uremia. No absolute indication for dialysis yet. 04/26/2024. end stage renal disease started on dialysis. No signs or symptoms of uremia. We will follow up during dialysis in the dialysis clinic Coding Level of Care Code Global (34129) Diagnoses Uncontrolled type 1 diabetes mellitus with hyperglycemia E10.65 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 E10.22; N18.5
--- OUTSIDE RECORDS SUMMARY | 2024-04-25 17:40 | XMS_ITS | Encounter Summary ---
Author Organization [facility] Address [address] [place] [address] Care Team Providers Care Gardener Florist Name Role Phone Name, Hong FOSS Primary Care Provider [phone] Magali Doty PharmD Unavailable [phone] Encounter Details Date Type Department Care [...] Description 06/20/2024 3:15 PM EDT Office Visit [facility] [address] [place] [phone] Name, MD Hong [address] [place] [address] documented as of this encounter Goals Goal Patient Goal Type Associated Problems Recent Progress Patient-Stated? Author Record your blood pressure once per day Blood Pressure No Puia, Magali, PharmD Blood Pressure < 140/90 Blood Pressure 121/76( 024 3:50 PM EST) No PuiaSamMagali, PharmD documented as of this encounter Procedures Procedure Name Priority Date/Time Associated Diagnosis Comments VENOUS BLOOD GAS Routine 04/06/2024 10:4 1 AM EST B TYPE NATRIURETIC PEPTIDE (BNP) Routine 04/06/2024 10:28 AM EST AMMONIA (P) Routine 04/06/2024 10:28 AM EST XR CHEST 1 VIEW Routine 04/06/2024 10:19 AM EST GLUCOSE, WHOLE BLOOD Routine 04/06/2024 10:09 AM EST DRUG MONITOR, PANEL 1, SCREEN, URINE Routine 04/06/2024 9:[address] HEAD WO CONTRAST Routine 04/06/2024 9 :19 AM EST LACTIC ACID Routine 04/06/2024 7:34 AM EST XR CHEST 1 VIEW Routine 04/06/2024 6:05 AM EST GLUCOSE, WHOLE BLOOD Routine 04/06/2024 5:10 AM EST SARS COV2/INFLUENZA A/B AND RSV RNA QL NAAT Routine 04/06/2024 4:49 AM EST CBC WITH AUTO DIFFERENTIAL Routine 04/06/2024 4:49 AM EST COMPREHENSIVE METABOLIC PANEL Routine 04/06/2024 4:49 AM EST GLUCOSE, WHOLE BLOOD Routine 04/06/2024 4:15 AM EST documented in this encounter Results * (ABNORMAL) VENOUS BLOOD GAS (04/06/2024 10:41 AM EST) VBG pH 7.41 7.32 - 7.43 [facility] Comment:METER #: [id number] additional_comment: Cb patelha VBG PCO2 28 mmHg [facility] Comment:METER #: [id number] additional_comment: Cb patelha VBG PO2 73 mmHg [facility] Comment:METER #: [id number] additional_comment: Cb patelha VBG Base Excess -5.2 mmol/L [facility] Comment:METER #: [id number] additional_comment: Cb patelha VBG HCO3 18(L) 22 - 26 mmol/L [facility] Comment:METER #: [id number] additional_comment: Cb humbertoelleyda O2 Sat, Bay 96.0 % [facility] Comment:METER #: [id number] additional_comment: Cb patelleyda 04/06/2024 10:4 1 AM EST 04/06/2024 10:46 AM EST Generic External Data Provider LAB BLOOD ORDERAB LES Final Result Performing Organization Address [facility] Co de Phone Number [facility] [address] [place] [phone] * (ABNORMAL) B Type Natriuretic Peptide (BNP) (04/06/2024 10:28 AM EST) B Type Natriuretic Peptide 1,291(H) <100 pg/mL [facility] Comment:For those patients w ho are being treated with Natrecor(nesiritide, recombinant BNP), BNP testing should beperformed at least two hours post treatment in order toensure that only endogenous levels of BNP are detected. 04/06/2024 10:2 8 AM EST 04/06/2024 10:32 AM EST Generic External Data Provider LAB BLOOD ORDERAB LES Final Result Performing Organization Address [facility] Co de Phone Number [facility] [address] [place] [phone] * Ammonia, Plasma (04/06/2024 10:28 AM EST) Ammonia (P) 26 13 - 55 umol/L [facility] 04/06/2024 10:2 8 AM EST 04/06/2024 10:32 AM EST Generic External Data Provider LAB BLOOD ORDERAB LES Final Result Performing Organization Address [facility] Co de Phone Number [facility] [address] [place] [phone] * XR Chest 1 View (04/06/2024 10:19 AM EST) Anatomical Region Laterality Modality Chest Radiographic Sindy ging 04/06/2024 10:1 9 AM EST Narrative 04/06/2024 10:53 AM EST ? [facility] ?[address] ?[place] [address] ?XRay Report ? Signed ? Patient: Hernandez,Veto ?MR#: [id number] ? : 1985 ?Acct:[id number] ? Age/Sex: 38 / M ?ADM Date: 04/06/24 ? Loc: HO.ED ? Attending Dr: ? Ordering Physician: Jada Ramirez NP ?? Date of Service: 04/06/24 ?? Procedure(s): XR chest 1V ?? Accession Number(s): [id number] ? cc: Name,Hong FOSS; Jada Ramirez NP ? EXAMINATION: ??XR CHEST 1 VIEW ? HISTORY: hypoxic ? COMPARISON: Comparison is made with the prior examination performed ?? earlier in the day at 5:58 AM ? FINDINGS: ??A single AP portable view of the chest performed at 10:35 AM ?? is submitted. There are diffusely increased interstitial opacities with ?? curly B-lines. There are confluent airspace opacities in the lower ?? lobes, suggestive of pulmonary edema. ??There is no pleural effusion, ?? pneumothorax, or pulmonary vascular congestion. ??The heart is normal in ?? size. ??The bones are intact. ? XR/XR chest 1V ?? IMPRESSION: ?? Findings suggestive of pulmonary edema. ? Electronically signed by: ??Bob Bob MD ??04/06/2024 10:50 AM EST ?? RP ? Dictated By: ?Bob Bob MD ? Signed By: ?<Electronically signed by Bob Bob MD in OV> ?04/06/24 1050 ? DD/ 1019 ? TD/TT: 04/06/24 1040 ? Manager Of Transportation: ? Procedure Note Mariel Crenshaw - 04/06/[address] [address] XRay Report Signed Patient: Veto HernandezMR#: [id number] : 1985Acct:[id number] Age/Sex: 38 / MADM Date: 04/06/24 Loc: HO.ED Attending Dr: Ordering Physician: Jada Ramirez NP Date of Service: 04/06/24 Procedure(s): XR chest 1V Accession Number(s): [id number] cc: Name,Hong FOSS; Jada Ramirez NP EXAMINATION: XR CHEST 1 VIEW HISTORY: hypoxic COMPARISON: Comparison is made with the prior examination performed earlier in the day at 5:58 AM FINDINGS: A single AP portable view of the chest performed at 10:35 AM is submitted. There are diffusely increased interstitial opacities with curly B-lines. There are confluent airspace opacities in the lower lobes, suggestive of pulmonary edema. There is no pleural effusion, pneumothorax, or pulmonary vascular congestion. The heart is normal in size. The bones are intact. XR/XR chest 1V IMPRESSION: Findings suggestive of pulmonary edema. Electronically signed by: Bob Bob MD 04/06/2024 10:50 AM EST RP Dictated By: Bob Bob MD Signed By: <Electronically signed by Bob Bob MD in OV> 04/06/24 1050 DD/ 1019 TD/TT: 04/06/24 1040 Manager Of Transportation: [facility] External Provider IMG XR PROCEDURES Final Result * (ABNORMAL) Glucose, Whole Blood (04/06/2024 10:09 AM EST) [facility] Glucose, Whole Blood 118(H) 60 - 115 mg/dL [facility] Comment:METER #: [id number] 04/06/2024 10:0 9 AM EST 04/06/2024 10:14 AM EST Generic External Data Provider LAB BLOOD ORDERAB LES Final Result [facility] [address] [place] [phone] * Drug Monitoring, Panel 1, Screen, Urine (04/06/2024 9:29 AM EST) [facility] Opiate Screen Urine Not Detected Not Detect [facility] Comment:Opiate cut-off is 30 0 ng/mL.Positive results are unconfirmed and should not be used fornon-medical purposes. Barbiturates, Urine Not Detected Not Detect [facility] Comment:Barbiturate cut-off is 200 ng/mL.Positive results are unconfirmed and should not be used fornon-medical purposes. Phencyclidine Screen Urine Not Detected Not Detect [facility] Comment:Phencyclidine cut-of f is 25 ng/mL.Positive results are unconfirmed and should not be used fornon-medical purposes. Amphetamine Screen Urine Not Detected Not Detect [facility] Comment:Amphetamine cut-off is 1000 ng/mL.Positive results are unconfirmed and should not be used fornon-medical purposes. Benzodiazepines Screen Urine Not Detected Not Detect [facility] Comment:Benzodiazepine cut-o ff is 200 ng/mL.Positive results are unconfirmed and should not be used fornon-medical purposes. Cocaine Screen Urine Not Detected Not Detect [facility] Comment:Cocaine cut-off is 3 00 ng/mL.Positive results are unconfirmed and should not be used fornon-medical purposes. Cannabinoid Screen Urine Not Detected Not Detect [facility] Comment:Cannabinoid cut-off is 50 ng/mL.Positive results are unconfirmed and should not be used fornon-medical purposes. Methadone Screen, Urine Not Detected Not Detect ng/mL [facility] Comment:Methadone cut-off is 300 ng/mL.Positive results are unconfirmed and should not be used fornon-medical purposes. FENTANYL URINE Not Detected Not Detect [facility] Comment:Fentanyl cut-off is 1 ng/mL.Positive results are unconfirmed and should not be used fornon-medical purposes. Oxycodone Urine Screen Not Detected Not Detect ng/mL [facility] Comment:Oxycodone cut-off is 100 ng/mL.Positive results are unconfirmed and should not be used fornon-medical purposes. Buprenorphine Screen Not Detected Not Detect ng/mL [facility] Comment:Buprenorphine cut-of f is 5 ng/mL.Positive results are unconfirmed and should not be used fornon-medical purposes. 04/06/2024 9:29 AM EST 04/06/2024 9:32 AM EST us Generic External Data Provider LAB URINE ORDERAB LES Final Result [facility] [address] [place] [phone] * CT Head w/o Contrast (04/06/2024 9:19 AM EST) Anatomical Region Laterality Modality Head, Neck Computed Tomogra phy 04/06/2024 9:19 AM EST Narrative 04/06/2024 10:07 AM EST ? [facility] ?[address] ?[place] [address] ? CT Scan Report ? Signed ? Patient: Hernandez,Veto ?MR#: [id number] ? : 1985 ?Acct:[id number] ? Age/Sex: 38 / M ?ADM Date: 04/06/24 ? Loc: HO.ED ? Attending Dr: ? Ordering Physician: Jada Ramirez NP ?? Date of Service: 04/06/24 ?? Procedure(s): CT head/brain wo IV con ?? Accession Number(s): [id number] ? cc: Name,Hong FOSS; Jada Ramirez NP ? Report Number: ?? [id number]: Total DLP = 1025.00 mGy-cm ?? EXAMINATION: CT HEAD WITHOUT IV CONTRAST ? HISTORY: altered mental status. ? TECHNIQUE: ? Unenhanced helical CT of the head was performed per standard ?? departmental protocol. Coronal and sagittal reformats of the head were ?? also evaluated. One or more of the following techniques was used for ?? dose reduction: Automated exposure control, adjustment of the mA and/or ?? kV according to patient size, use of iterative reconstruction technique. ? DLP: 1025 mGy-cm ? COMPARISON: Comparison is made with the prior examination dated ?? 08/06/2021. ? FINDINGS: ? BRAIN: ??The brain parenchyma is unremarkable. There is normal ?? gill/white differentiation. The ventricular system is normal in size ?? and configuration. ??There is no mass effect or midline shift. ??No ?? intra- or extra-axial fluid collections are identified. ? SINUSES: The visualized paranasal sinuses are clear. ??Again seen is ?? fluid in the bilateral mastoid air cells. ? ORBITS: Again seen is calcification of the bilateral globes. ? BONES/SOFT TISSUES: The extracranial soft tissues are unremarkable. The ?? calvarium is intact. No suspicious lytic or sclerotic lesions. ? CT/CT head/brain wo IV con ?? IMPRESSION: ?? No acute intracranial abnormality. ? Electronically signed by: ??Bob Bob MD ??04/06/2024 10:03 AM EST ?? RP ? Dictated By: ?Bob Bob MD ? Signed By: ?<Electronically signed by Bob Bob MD in OV> ?04/06/24 1003 ? DD/ 0919 ? TD/TT: 04/06/24 0956 ? Manager Of Transportation: ? Procedure Note Den, Image - 04/06/[address] [place] [address] [address] Scan Report Signed Patient: Veto HernandezMR#: [id number] : 1985Acct:[id number] Age/Sex: 38 / MADM Date: 04/06/24 Loc: HO.ED Attending Dr: Ordering Physician: Jada Ramirez NP Date of Service: 04/06/24 Procedure(s): CT head/brain wo IV con Accession Number(s): [id number] cc: Hong Rodríguez MD; Jada Ramirez NP Report Number: [id number]: Total DLP = 1025.00 mGy-cm EXAMINATION: CT HEAD WITHOUT IV CONTRAST HISTORY: altered mental status. TECHNIQUE: Unenhanced helical CT of the head was performed per standard departmental protocol. Coronal and sagittal reformats of the head were also evaluated. One or more of the following techniques was used for dose reduction: Automated exposure control, adjustment of the mA and/or kV according to patient size, use of iterative reconstruction technique. DLP: 1025 mGy-cm COMPARISON: Comparison is made with the prior examination dated 08/06/2021. FINDINGS: BRAIN: The brain parenchyma is unremarkable. There is normal gill/white differentiation. The ventricular system is normal in size and configuration. There is no mass effect or midline shift. No intra- or extra-axial fluid collections are identified. SINUSES: The visualized paranasal sinuses are clear. Again seen is fluid in the bilateral mastoid air cells. ORBITS: Again seen is calcification of the bilateral globes. BONES/SOFT TISSUES: The extracranial soft tissues are unremarkable. The calvarium is intact. No suspicious lytic or sclerotic lesions. CT/CT head/brain wo IV con IMPRESSION: No acute intracranial abnormality. Electronically signed by: Bob Bob MD 04/06/2024 10:03 AM EST Dictated By: Bob Bob MD Signed By: <Electronically signed by Bob Bob MD in OV> 04/06/24 1003 DD/ TD/TT: 04/06/24 0956 Manager Of Transportation: [facility] External Provider IMG CT PROCEDURES Final Result * Lactic Acid (04/06/2024 7:34 AM EST) Lactic Acid 0.8 0.5 - 2.0 mmol/L [facility] 04/06/2024 7:34 AM EST 04/06/2024 7:38 AM EST [facility] External Data Provider LAB BLOOD ORDERAB LES Final Result [facility] [address] [place] [phone] * XR Chest 1 View (04/06/2024 6:05 AM EST) Anatomical Region Laterality Modality Chest Radiographic Sindy ging 04/06/2024 6:05 AM EST Narrative 04/06/2024 6:07 AM EST ? [facility] ?[address] ?[place] [address] ?XRay Report ? Signed ? Patient: Hernandez,Veto ?MR#: [id number] ? : 1985 ?Acct:[id number] ? Age/Sex: 38 / M ?ADM Date: 04/06/24 ? Loc: HO.ED ? Attending Dr: ? Ordering Physician: Andre Malhotra MD ?? Date of Service: 04/06/24 ?? Procedure(s): XR chest 1V ?? Accession Number(s): [id number] ? cc: Name,Hong FOSS; Andre Malhotra MD ? CLINICAL HISTORY: sob ? 1 view chest x-ray. ? Comparison: CR/SR - XR CHEST 1V - 11/21/23 10:45 EDT ? Findings: ?? Normal lung volumes. ?? Bilateral interstitial opacities and bronchial wall thickening new ?? airspace disease right lower lobe. ?? No pneumothorax or pleural effusion. ?? Heart size normal. ?? No midline shift or tracheal deviation. ?? No acute fracture. ? Impression: ?? 1. Normal cardiac silhouette. Bilateral interstitial and bronchial wall ?? thickening. New airspace disease right lower lobe ? This document has been electronically signed by: Ehsan Blair MD on ?? 04/06/2024 06:05:25 ? Dictated By: ?Ehsan Blair MD ? Signed By: ?<Electronically signed by Ehsan Blair MD in OV> ?04/06/24605 ? DD/ 4 ? TD/TT: 04/06/24604 ? Manager Of Transportation: ? Procedure Note Mariel Crenshaw - 04/06/[address] [address] XRay Report Signed Patient: eVto HernandezMR#: [id number] : 1985Acct:[id number] Age/Sex: 38 / MADM Date: 04/06/24 Loc: HO.ED Attending Dr: Ordering Physician: Andre Malhotra MD Date of Service: 04/06/24 Procedure(s): XR chest 1V Accession Number(s): [id number] cc: Name,Hong FOSS; Andre Malhotra MD CLINICAL HISTORY: sob 1 view chest x-ray. Comparison: CR/SR - XR CHEST 1V - 11/21/23 10:45 EDT Findings: Normal lung volumes. Bilateral interstitial opacities and bronchial wall thickening new airspace disease right lower lobe. No pneumothorax or pleural effusion. Heart size normal. No midline shift or tracheal deviation. No acute fracture. Impression: 1. Normal cardiac silhouette. Bilateral interstitial and bronchial wall thickening. New airspace disease right lower lobe This document has been electronically signed by: Ehsan Blair MD on 04/06/2024 06:05:25 Dictated By: Ehsan Blair MD Signed By: <Electronically signed by Ehsan Blair MD in OV> 04/06/24605 DD/ 4 TD/TT: 04/06/24 06 Manager Of Transportation: [facility] External Provider IMG XR PROCEDURES Final Result * Glucose, Whole Blood (04/06/2024 5:10 AM EST) Glucose, Whole Blood 93 60 - 115 mg/dL [facility] Comment:METER #: [id number] 04/06/2024 5:10 AM EST 04/06/2024 5:14 AM EST Generic External Data Provider LAB BLOOD ORDERAB LES Final Result [facility] [address] [place] [phone] * SARS-CoV-2 RNA, Influenza A/B, and RSV RNA, Ql NAAT (04/06/2024 4:49 AM EST) Influenza A PCR NEGATIVE Negative [facility] Influenza B PCR NEGATIVE Negative [facility] Resp Syncy Virus RNA Qual PCR NEGATIVE Negative [facility] SARS COV2 PCR NEGATIVE Negative [facility] Comment:All test results mus t be correlated with clinical findings.Negative results do not preclude SARS-CoV2, influenza Avirus, influenza B virus and/or RSV infectionand should not be used as the sole basis for treatment orother patient management decisions. Negative results must becombined with clinical observations, patient history, andepidemiological information.This test has not been evaluated for monitoring treatment ofinfection.This test has been authorized by the FDA under an EmergencyUse Authorization (EUA) for use by authorized laboratories.Testing performed on the [employer] GeneXpert utilizingreal-time RT-PCR.All SARS CoV2 and positive influenza A/B results arereported to [facility]. 04/06/2024 4:49 AM EST 04/06/2024 4:53 AM EST us Generic External Data Provider LAB MICROBIOLOGY - GENERAL ORDERABLES Final Result [facility] [address] [place] [phone] * (ABNORMAL) Comprehensive Metabolic Panel (04/06/2024 4:49 AM EST) Sodium 140 135 - 145 mmol/L [facility] Potassium 5.1 3.3 - 5.1 mmol/L [facility] Chloride 109(H) 96 - 108 mmol/L [facility] Carbon Dioxide 16(L) 22 - 29 mmol/L [facility] Anion Gap 20 12 - 20 [facility] Urea Nitrogen (BUN) 99(H) 9 - 16 mg/dL [facility] Creatinine, Serum 8.41(HH) 0.5 - 1.4 mg/dL [facility] Comment:Critical value for t est(s):CREATININE Results called to kelsey back by:SHON Person calling:Sky:04/06/24 Time:0516 Creatinine Clr Calc Pharmacy 11.4 [facility] Comment:eGFR (calculated fro m the MDRD study equation) and eCrCl(calculated from the Cockcroft-Gault equation) are based ondifferent parameters and may not yield comparable results.If eCrCl result is absurd, please check patient'sheight/weight. Estimated Glomerular Filt Rate 7 [facility] Comment:Chronic Kidney Disea se: Estimated GFR < 60 mL/min/1.71x7Jpncrg Kidney Disease: Estimated GFR < 15 mL/min/1.73m2 Glucose 80 60 - 115 mg/dL [facility] Calcium 7.9(L) 8.4 - 10.2 mg/dL [facility] Bilirubin, Total 0.3 0.0 - 1.0 mg/dL [facility] Aspartate Amino Transferase 15 5 - 37 U/L [facility] Alanine Aminotransferase 9 0 - 40 U/L [facility] Total Protein 7.3 6.5 - 8.0 g/dL [facility] Albumin Level 3.6 3.5 - 5.0 g/dL [facility] Alkaline Phosphatase 85 39 - 117 U/L [facility] 04/06/2024 4:49 AM EST 04/06/2024 4:53 AM EST us Generic External Data Provider LAB BLOOD ORDERAB LES Final Result [facility] [address] [place] [phone] * (ABNORMAL) CBC auto differential (04/06/2024 4:49 AM EST) White Blood Count 10.6 4.8 - 10.8 X10*3/uL [facility] Red Blood Count 2.75(L) 4.60 - 5.80 X10*6/uL [facility] Hemoglobin 8.2(L) 14.0 - 18.0 g/dl [facility] Hematocrit 24.4(L) 42.0 - 52.0 % [facility] Mean Corpuscular Volume 88.7 80.0 - 98.0 fL [facility] Mean Corpuscular Hemoglobin 29.8 27.0 - 33.0 pg [facility] Mean Corpuscular HGB Conc 33.6 31.0 - 36.0 g/dl [facility] Red Cell Distribution Width 13.1 11.0 - 16.0 % [facility] Platelet Count 218 160 - 400 X10*3/uL [facility] Mean Platelet Volume 8.9(L) 9.4 - 12.4 fL [facility] Neutrophils Percent Auto 77.6(H) 45 - 73 % [facility] Imm Gran Pct Auto 0.5(H) 0.0 - 0.4 % [facility] Lymphocytes Percent Auto 10.6(L) 20 - 40 % [facility] Monocytes Percent Auto 10.2 2 - 11 % [facility] Eosinophils Percent Auto 0.9 0 - 4 % [facility] Basophils Percent Auto 0.2 0 - 2 % [facility] NRBC Pct Auto 0.0 0.0 - 0.2 /100WBC [facility] Neutrophils Absolute Auto 8.2 2.0 - 8.3 x10*3/uL [facility] Imm Gran Abs Auto 0.05(H) 0.00 - 0.03 X10*3/uL [facility] Lymphocytes Absolute Auto 1.1(L) 1.2 - 4.9 X10*3/uL [facility] Monocytes Absolute Auto 1.1 0.1 - 1.2 X10*3/uL [facility] Eosinophils Absolute Auto 0.1 0.0 - 0.4 X10*3/uL [facility] Basophils Absolute Auto 0.0 0.0 - 0.2 X10*3/uL [facility] NRBC Abs Auto 0.000 0.0 - 0.012 X10*3/uL [facility] 04/06/2024 4:4 9 AM EST 04/06/2024 4:53 AM EST us Generic External Data Provider LAB BLOOD ORDERAB LES Final Result [facility] [address] [place] [address] [place] [phone] * (ABNORMAL) Glucose, Whole Blood (04/06/2024 4:15 AM EST) Glucose, Whole Blood 53(LL) 60 - 115 mg/dL [facility] Comment:METER #: [id number] 04/06/2024 4:15 AM EST 04/06/2024 4:19 AM EST us Generic External Data Provider LAB BLOOD ORDERAB LES Final Result [facility] [address] [place] [phone] documented in this encounter Visit Diagnoses Not on filedocumented in this encounter Additional Health Concerns Assessment Noted Time PHQ-9 Depression Total Score: 0 04/14/19 24 1:09 PM EST documented as of this encounter Care Teams Gardener Florist Relationship Specialty Start Date End Date Name, MD Hong [address] [place] [address] PCP - General Family Medicine 06/18/16 Magali Doty PharmD [address] [place] [phone] Pharmacist Internal Medicine 08/15/22 documented as of this encounter
--- OUTSIDE RECORDS SUMMARY | 2024-04-25 17:40 | XMS_ITS | Encounter Summary ---
Author Organization [facility] Address [address] [place] [phone] Phone Care Team Providers Care Marine Photographer Name Role Phone Name, Hong FOSS Primary Care Provider Encounter Details Date Type Department Care Team (Late st Contact Info) Description 01/23/2023 Office Communication [facility] [address] [place] [phone] Pro Christianson MD [address] [facility] [address] [place] [phone] Social History Tobacco Use Types Packs/Day Years [...] on filedocumented in this encounter Care Teams Marine Photographer Relationship Specialty Start Date End Date Name, MD Hong [address] [place] [phone] PCP - General 03/05/20 documented as of this encounter
--- OUTSIDE RECORDS SUMMARY | 2024-04-25 17:40 | XMS_ITS | Encounter Summary ---
Author Organization [facility], Address [address] [place] [address] Phone Care Team Providers Care Silk Brusher Name Role Phone Name, Hong FOSS Primary Care Provider [phone] Encounter Details Date Type Department Care Team (Late st Contact Info) Description 04/15/2024 Orders Only [facility] [address] [place] [id number] Bharath Maria MD [address] [place] [address] Social History Tobacco Use Types Packs/Day Years [...] on file documented as of this encounter Procedures Procedure Name Priority Date/Time Associated Diagnosis Comments HEMATOLOGY Routine 04/20/2024 THYROIDS Routine 04/15/2024 HD KINETICS Routine 04/15/2024 SPECIAL CHEMISTRY Routine 04/15/2024 SPECIAL CHEMISTRY Routine 04/15/2024 POST CHEMISTRY Routine 04/15/2024 IMMUNO CHEMISTRY Routine 04/15/2024 TRACE ELEMENTS Routine 04/15/2024 HEMATOLOGY Routine 04/15/2024 CHEMISTRY Routine 04/15/2024 CHEMISTRY Routine 04/15/2024 documented in this encounter Results * (ABNORMAL) HEMATOLOGY (04/20/2024) Hemoglobin 8.0(L) 14.0 - 18.0 g/dL [facility] Hemoglobin x 3 24(L) 42.0 - 54.0 % [facility] 04/20/2024 04/21/2024 8:5 8 AM EST Narrative [facility] - 04/21/2024 Unless otherwise specified, test(s) performed at: [place] [address] RETURNS CLERK: Neeraj Jones M.D. For any questions, please call customer service at FREQUENCY:OTHER Resulting Agency Comment Specimen source: Blood Bharath Maria MD LAB BLOOD ORDERABLES Final [facility] Performing Organization Address [facility] Co de Phone Number [facility] See order comments or contact performing lab Unknown, [place] * HD KINETICS (04/15/2024) Pathologist [facility] % Urea Reduction 76 65 - 80 % [facility] 04/15/2024 04/19/2024 8:5 7 AM EST Narrative Resulting Agency Comment Specimen source: Plasma Bharath Maria MD LAB BLOOD ORDERABLES Final Re sult Performing Organization Address [facility] Co de Phone Number [facility] See order comments or contact performing lab Unknown, [place] * (ABNORMAL) POST CHEMISTRY (04/15/2024) BUN Post Dialysis 20(H) 6 - 19 mg/dL [facility] 04/15/2024 04/19/2024 8:5 7 AM EST Narrative [facility] - 04/19/2024 Unless otherwise specified, test(s) performed at: [facility], [address] [place] [address] RETURNS CLERK: Neeraj Jones M.D. For any questions, please call customer service at FREQUENCY:MONTHLY Resulting Agency Comment Specimen source: Plasma us Bharath Maria MD LAB BLOOD ORDERABLES Final Re sult [facility] See order comments or contact performing lab Unknown, [place] * IMMUNO CHEMISTRY (04/15/2024) Hep B Surface Ag Negative Negative [facility] Hepatitis B Surface Ab 415 mIU/mL [facility] Comment: The anti-HBs (Hepatitis B surface antibody) is greater than or equal to 10 mIU/mL and implies immunity. The patient has either had an antibody response to HBV vaccination, received a transfusion, or has recovered from HBV infection. For post-vaccination antibody testing guidelines for the general public, refer to MMWR February 14, 2005/Vol.54 (No. 16); 1-23, and for healthcare workers, refer to MMWR February 11, 2013/Vol.62 (No. 10); 1-18. Reference Range: <10 mIU/mL ? Non-Immune >=10 mIU/mL ?Immune The magnitude of the measured result above 10 mIU/mL is not indicative of the total amount of antibody present. Hep B Core Total Ab Negative Negative [facility] Comment: Hep B Core Ab, Total appears during the acute infection stage and remains reactive/positive throughout the recovery stage. The above test result was obtained using Siemens Centaur XP chemiluminescent method. Results obtained with different assay methods or kits cannot be used interchangeably. Hepatitis C Antibody Nonreactive Nonreactive [facility] Comment: No HCV antibody detected. The above test result was obtained using Siemens Centaur XP chemiluminescent method. Results obtained with different assay methods or kits cannot be used interchangeably. S/CO Ratio <0.02 0.00 - 0.79 [facility] Comment: s/co ratio ?Interpretation ?Supplemental testing <0.80 ? Nonreactive ? No further testing required. 0.80-0.99 ? Equivocal ? HCV RNA Quantitative Real-Time PCR is recommended. 1.00->11.00 ?? Reactive ?HCV RNA Quantitative Real-Time PCR is recommended to distinguish active from resolved cases. 04/15/2024 04/19/2024 8:3 1 AM EST Narrative Resulting Agency Comment Specimen source: Serum Bharath Maria MD LAB BLOOD ORDERABLES Final Re sult Performing Organization Address [facility] de Phone Number [facility] See order comments or contact performing lab Unknown, [place] * THYROIDS (04/15/2024) Pathologist [facility] TSH 1.099 0.300 - 3.000 mIU/L [facility] Comment: The reference range of 0.300-3.000 mIU/L is recommended by the [place] [employer] Clinical Endocrinologists (AACE). An ESRD population contains about 20% of individuals with TSH of up to 20 mIU/L and normal free T4 consistent with non-thyroidal illness. ESRD patients with true hypothyroidism develop persistent values above 20 mIU/L. 04/15/2024 04/19/2024 8:3 1 AM EST Narrative Resulting Agency Comment Specimen source: Serum Bharath Maria MD LAB BLOOD ORDERABLES Final Re sult Performing Organization Address [facility] de Phone Number [facility] See order comments or contact performing lab Unknown, [place] * SPECIAL CHEMISTRY (04/15/2024) Pathologist [facility] Vitamin D, 25-OH, Total 31.7 30.0 - 100.0 ng/mL [facility] Comment: Please Note:? Effective December 22, 2022, the methodology for this test has changed to the [employer]. 04/15/2024 04/19/2024 8:3 1 AM EST Narrative Resulting Agency Comment Specimen source: Serum Bharath Maria MD LAB BLOOD BANK TEST ORDERABLE S Final Result [facility] See order comments or contact performing lab Unknown, [place] * (ABNORMAL) [facility] Chemistry (04/15/2024) BUN 84(H) 6 - 19 mg/dL [facility] Creatinine 11.25(H) 0.60 - 1.30 mg/dL [facility] BUN/Creatinine Ratio 7.5(L) 10.0 - 20.0 [facility] Sodium 137 136 - 145 mEq/L [facility] Potassium 4.4 3.5 - 5.1 mEq/L [facility] Bicarbonate (CO2) 26 22 - 29 mEq/L [facility] Calcium 9.3 8.4 - 10.2 mg/dL [facility] Corrected Calcium 9.3 8.4 - 10.2 mg/dL [facility] Comment: Corrected Calcium is not equivalent to measured Ionized Calcium. Phosphorus 7.5(H) 2.6 - 4.5 mg/dL [facility] Calcium Phosphorus Product 70(H) 0 - 54 [facility] Calcium Phosporus Product, Cor 70(H) 0 - 54 [facility] Alkaline Phosphatase 63 40 - 129 U/L [facility] AST (SGOT) 11(L) 13 - 39 U/L [facility] ALT (SGPT) 11 7 - 52 U/L [facility] LDH 154 118 - 273 U/L [facility] Albumin 4.0 3.5 - 5.2 g/dL [facility] Ferritin 114 22 - 322 ng/mL [facility] Iron 97 45 - 160 mcg/dL [facility] UIBC 219 155 - 355 mcg/dL [facility] TIBC 316 185 - 515 mcg/dL [facility] Iron Saturation (TSat) 31 20 - 55 % [facility] Cholesterol 138 0 - 199 mg/dL [facility] Comment: Reference Range: <200 mg/dL ? Desirable 200-239 mg/dL ?Borderline >=240 mg/dL ?High Risk Triglycerides 213(H) 0 - 149 mg/dL [facility] Comment: Reference Range: <150 mg/dL ? Normal 150-199 mg/dL ??Borderline High 200-499 mg/dL ??High >=500 mg/dL ?Very High HDL 42 mg/dL [facility] Comment: Reference Range: <40 mg/dL ?? Low HDL Cholesterol >=60 mg/dL ??High HDL Cholesterol LDL Calculated 53 0 - 99 mg/dL [facility] Comment: Reference Range: <100 mg/dL ? Optimal 100-129 mg/dL ?Near/Above Opt 130-159 mg/dL ?Borderline High 160-189 mg/dL ?High >=190 mg/dL ?Very High VLDL Cholesterol Wilner 43(H) 10 - 30 mg/dL [facility] Chol/HDL Ratio 3.3 0.0 - 4.5 [facility] 04/15/2024 04/19/2024 8:3 1 AM EST Narrative [facility] - 04/19/2024 Unless otherwise specified, test(s) performed at: [facility], [address] [place] [address] RETURNS CLERK: Neeraj Jones M.D. For any questions, please call customer service at FREQUENCY:MONTHLY Resulting Agency Comment Specimen source: Serum Bharath Maria MD LAB BLOOD ORDERABLES Final Re sult [facility] See order comments or contact performing lab [facility], [place] * SPECIAL CHEMISTRY (04/15/2024) Hemoglobin A1C 5.4 4.8 - 5.9 % [facility] 04/15/2024 04/19/2024 8:1 8 AM EST Narrative [facility] - 04/19/2024 Unless otherwise specified, test(s) performed at: [facility], [address] [place] [address] RETURNS CLERK: Neeraj Jones M.D. For any questions, please call customer service at FREQUENCY:MONTHLY Resulting Agency Comment Specimen source: Blood Bharath Maria MD LAB BLOOD BANK TEST ORDERABLE S Final Result Performing Organization Address [facility] de Phone Number [facility] See order comments or contact performing lab Unknown, [place] * (ABNORMAL) [facility] Chemistry (04/15/2024) PTH 378(H) 16 - 80 pg/mL [facility] 04/15/2024 04/19/2024 8:4 4 AM EST Narrative [facility] - 04/19/2024 Unless otherwise specified, test(s) performed at: [facility], [address] [place] [address] RETURNS CLERK: Neeraj Jones M.D. For any questions, please call customer service at FREQUENCY:MONTHLY Resulting Agency Comment Specimen source: Plasma Bharath Maria MD LAB BLOOD ORDERABLES Final Re sult Performing Organization Address [facility] de Phone Number [facility] See order comments or contact performing lab Unknown, [place] * TRACE ELEMENTS (04/15/2024) Pathologist [facility] Aluminum <5 0 - 10 mcg/L [facility] Comment: This test was developed and its performance characteristics determined by [facility]. It has not been cleared or approved by the FDA. The laboratory is regulated under CLIA as qualified to perform high complexity testing. This test is used for clinical purposes. It should not be regarded as investigational or for research. 04/15/2024 04/19/2024 8:1 7 AM EST Narrative [facility] - 04/19/2024 Unless otherwise specified, test(s) performed at: [facility], [address] [place] [address] RETURNS CLERK: Neeraj Jones M.D. For any questions, please call customer service at FREQUENCY:MONTHLY Resulting Agency Comment Specimen source: Serum Bharath Maria MD LAB BLOOD ORDERABLES Final Re sult Performing Organization Address [facility] de Phone Number [facility] See order comments or contact performing lab Unknown, [place] * (ABNORMAL) HEMATOLOGY (04/15/2024) Hemoglobin 9.5(L) 14.0 - 18.0 g/dL [facility] Hemoglobin x 3 28.5(L) 42.0 - 54.0 % [facility] 04/15/2024 04/19/2024 8:1 8 AM EST Narrative [facility] - 04/19/2024 Unless otherwise specified, test(s) performed at: [facility], [address] [place] [address] RETURNS CLERK: Neeraj Jones M.D. For any questions, please call customer service at FREQUENCY:MONTHLY Resulting Agency Comment Specimen source: Blood us Bharath Maria MD LAB BLOOD ORDERABLES Final Re sult [facility] See order comments or contact performing lab Unknown, [place] documented in this encounter Visit Diagnoses Not on filedocumented in this encounter Care Teams Silk Brusher Relationship Specialty Start Date End Date Name, MD Hong [address] [place] [id number] PCP - General 03/05/20 documented as of this encounter
--- OUTSIDE RECORDS SUMMARY | 2024-04-25 17:40 | XMS_ITS | Clinical Summary ---
Author Organization [facility] Address [address] [facility] [address] [place] [address] Phone Care Team Providers Care Advanced Manufacturing Engineer Name Role Phone Name, Hong FOSS Primary Care Provider [phone] Allergies Active Allergy Reactions Criticality Noted Date [...] to type 1 diabetes mellitus 06/19/2016 10/16/2022 Encounters Date Type Department Care Team Description 04/15/2024 Orders Only [facility] [address] [address] Bharath Maria MD from Last 3 Months Immunizations Name Administration Dates Next Due Influenza, [...] Exam 03/26/2020 Diabetes: Visual Foot Exam 03/26/2020 Influenza Vaccine (#1) 2023 3, 01/06/2022, 12/18/2020, Additional history exists Diabetes: Hemoglobin A1C 07/13/2024 025, 10/15/2022, 06/18/2022, Additional history exists Pneumococcal Vaccine: Pediat rics (0 to 5 Years) and At-Risk Patients (6 to 64 Years) Completed 01/14/2023, 07/23/2016 Procedures Procedure Name Priority Date/Time Associated Diagnosis Comments HEMATOLOGY Routine 04/20/2024 HD KINETICS Routine 04/15/2024 POST CHEMISTRY Routine 04/15/2024 IMMUNO CHEMISTRY Routine 04/15/2024 THYROIDS Routine 04/15/2024 SPECIAL CHEMISTRY Routine 04/15/2024 CHEMISTRY Routine 04/15/2024 SPECIAL CHEMISTRY Routine 04/15/2024 CHEMISTRY Routine 04/15/2024 TRACE ELEMENTS Routine 04/15/2024 HEMATOLOGY Routine 04/15/2024 from Last 3 Months Results * (ABNORMAL) HEMATOLOGY (04/20/2024) Only the most recent of2 resultswithin the time period is included. Hemoglobin 8.0(L) 14.0 - 18.0 g/dL [facility] Hemoglobin x 3 24(L) 42.0 - 54.0 % [facility] 04/20/2024 04/21/2024 8:5 8 AM EST Narrative [facility] - 04/21/2024 Unless otherwise specified, test(s) performed at: [facility], [address] [place] [address] BELT GLASS SANDER: Neeraj Jones M.D. For any questions, please call customer service at FREQUENCY:OTHER Resulting Agency Comment Specimen source: Blood Bharath Maria MD LAB BLOOD ORDERABLES Final Re sult [facility] See order comments or contact performing lab Unknown, [place] * THYROIDS (04/15/2024) Pathologist [facility] TSH 1.099 0.300 - 3.000 mIU/L [facility] Comment: The reference range of 0.300-3.000 mIU/L is recommended by the [place] [employer] of Clinical Endocrinologists (AACE). An ESRD [...] ORDERABLES Final Re sult Performing Organization Address [facility]/ZIP Co de Phone Number [facility] See order comments or contact performing lab Unknown, [place] * HD KINETICS (04/15/2024) Pathologist [facility] [place] % Urea Reduction 76 65 - 80 % [facility] 04/15/2024 04/19/2024 8:5 7 AM EST Narrative Resulting Agency Comment Specimen source: Plasma Bharath Maria MD LAB BLOOD ORDERABLES Final Re sult Performing Organization Address [facility] Co de Phone Number [facility] See order comments or contact performing lab Unknown, [place] * SPECIAL CHEMISTRY (04/15/2024) Only the most recent of2 resultswithin the time period is included. Pathologist [facility] Vitamin D, 25-OH, Total 31.7 30.0 - 100.0 ng/mL [facility] Comment: Please Note:? Effective December 22, 2022, the methodology for this test has changed to the [employer] [facility]. 04/15/2024 04/19/2024 8:3 1 AM EST Narrative Resulting Agency Comment Specimen source: Serum Bharath Maria MD LAB BLOOD BANK TEST ORDERABLE S Final Result Performing Organization Address [facility] Co de Phone Number [facility] See order comments or contact performing lab Unknown, [place] * (ABNORMAL) POST CHEMISTRY (04/15/2024) Pathologist [facility] BUN Post Dialysis 20(H) 6 - 19 mg/dL [facility] 04/15/2024 04/19/2024 8:5 7 AM EST Narrative [facility] - 04/19/2024 Unless otherwise specified, test(s) performed at: [facility], [address] [place] [address] BELT GLASS SANDER: Neeraj Jones M.D. For any questions, please call customer service at FREQUENCY:MONTHLY Resulting Agency Comment Specimen source: Plasma Bharath Maria MD LAB BLOOD ORDERABLES Final Re sult [facility] See order comments or contact performing lab Unknown, [place] * IMMUNO CHEMISTRY (04/15/2024) Hep B Surface Ag Negative Negative [facility] Hepatitis B Surface Ab 415 mIU/mL [facility] Comment: The anti-HBs (Hepatitis B surface antibody) is greater than or equal to 10 mIU/mL and implies immunity. The patient has either had an antibody response to HBV vaccination, received a transfusion, or has recovered from HBV infection. For post-vaccination antibody testing guidelines for the general public, refer to MMWR February 14, 2005/Vol.54 (No. 16); 03-17, and for healthcare workers, refer to MMWR February 11, 2013/Vol.62 (No. 10); 03-12. Reference Range: <10 mIU/mL ? Non-Immune >=10 mIU/mL ?Immune The magnitude of the measured result above 10 mIU/mL is not indicative of the total amount of antibody present. Hep B Core Total Ab Negative Negative [facility] Comment: Hep B Core Ab, Total appears during the acute infection stage and remains reactive/positive throughout the recovery stage. The above test result was obtained using Siemens Centaur XP chemiluminescent method. Results obtained with different assay methods or kits cannot be used interchangeably. Hepatitis C Antibody Nonreactive Nonreactive [facility] Comment: No HCV antibody detected. The above test result was obtained using Siemens Centaur XP chemiluminescent method. Results obtained with different assay methods or kits cannot be used interchangeably. S/CO Ratio <0.02 0.00 - 0.79 [facility] Comment: s/co ratio ?Interpretation ?Supplemental testing <0.80 [...] ORDERABLES Final Re sult Performing Organization Address [facility] de Phone Number [facility] See order comments or contact performing lab Unknown, [place] * TRACE ELEMENTS (04/15/2024) Aluminum <5 0 - 10 mcg/L [facility] Comment: This test was developed and its performance characteristics determined by [facility]. It has not been cleared or approved by the FDA. The laboratory is regulated under CLIA as qualified to perform high complexity testing. This test is used for clinical purposes. It should not be regarded as investigational or for research. 04/15/2024 04/19/2024 8:1 7 AM EST Narrative [facility] - 04/19/2024 Unless otherwise specified, test(s) performed at: [facility], [address] [place], [place] [id number] BELT GLASS SANDER: Neeraj Jones M.D. For any questions, please call customer service at FREQUENCY:MONTHLY Resulting Agency Comment Specimen source: Serum Bharath Maria MD LAB BLOOD ORDERABLES Final [facility] Performing Organization Address [facility] de Phone Number [facility] See order comments or contact performing lab Unknown, [place] * (ABNORMAL) [facility] (04/15/2024) Only the most recent of2 resultswithin the time period is included. BUN 84(H) 6 - 19 mg/dL [facility] [...] 04/15/2024 04/19/2024 8:3 1 AM EST Narrative [facility] - 04/19/2024 Unless otherwise specified, test(s) performed at: [facility], [address] [place] [address] BELT GLASS SANDER: Neeraj Jones M.D. For any questions, please call customer service at FREQUENCY:MONTHLY Resulting Agency Comment Specimen source: Serum us Bharath Maria MD LAB BLOOD ORDERABLES Final Re sult [facility] See order comments or contact performing lab Unknown, [place] from Last 3 Months Insurance [place] Sub[place] Plan / Payer (Ef fective 2020-Present) Name:Hernandez Veto Relation to Subscriber:Self Name:HernandezVeto mack Payer ID:Not on file Group ID:Not on file Type:Not on file Address: [place] [id number] [place] Care Teams Advanced Manufacturing Engineer Relationship Specialty Start Date End Date Name, MD Hong [address] [place] [id number] PCP - General 03/05/20
--- OUTSIDE RECORDS SUMMARY | 2024-04-25 17:40 | XMS_ITS | Encounter Summary ---
Author Organization [employer] Address 75 [facility] 7t [place] [address] Care Team Providers Care Asphalt Spreader Operator Name Role Phone Name, Hong FOSS Primary Care Provider [phone] Magali Doty PharmD Unavailable [phone] Encounter Details Date Type Department Care Team (Late st Contact Info) Description 04/04/2024 Orders Only [facility] External Provider, [facility] Social History Tobacco Use Types Packs/Day Years [...] 3:15 PM EDT Office Visit [facility] [address] [place] [address] Name, MD Hong [address] [place] [address] documented as of this encounter Goals Goal Patient Goal Type Associated Problems Recent Progress Patient-Stated? Author Record your blood pressure once per day Blood Pressure No PuiaSmaMagali, PharmD Blood Pressure < 140/90 Blood Pressure 121/76( 024 3:50 PM EST) No Magali Doty, PharmD documented as of this encounter Procedures Procedure Name Priority Date/Time Associated Diagnosis Comments XR SHOULDER 2+ VIEWS RIGHT Routine 04/04/2024 3:25 AM EST [facility] US UPPER EXTREMITY VENOUS DUPLEX RIGHT Routine 04/04/2024 3:24 AM EST documented in this encounter Results * XR Shoulder 2+ Views Right (04/04/2024 3:25 AM EST) Anatomical Region Laterality Modality Upper Extremities, Shoulder Right Radi ographic Imaging 04/04/2024 3:25 AM EST Narrative 04/04/2024 3:27 AM EST ? [facility] ?[address] ?[place] [address] ?XRay Report ? Signed ? Patient: Hernandez,Veto ?MR#: [id number] ? : 1985 ?Acct:[id number] ? Age/Sex: 38 / M ?ADM Date: 04/04/24 ? Loc: HO.ED ? Attending Dr: ? Ordering Physician: Lillie Jo ?? Date of Service: 04/04/24 ?? Procedure(s): XR shoulder RT min 2V ?? Accession Number(s): [id number] ? cc: Lillie Jo; [facility] ? CLINICAL HISTORY: pain ? 3 [...] DD/ 0325 ? TD/TT: 04/04/24 0325 ? Finished Cloth Examiner: ? Procedure Note Den, Image - 04/04/2024 [place] [address] XRay Report Signed Patient: Veto HernandezMR#: [id number] : 1985Acct:[id number] Age/Sex: 38 / MADM Date: 04/04/24 Loc: HO.ED Attending Dr: Ordering Physician: Lillie Jo Date of Service: 04/04/24 Procedure(s): XR shoulder RT min 2V Accession Number(s): [id number] cc: Lillie Jo; [facility] CLINICAL HISTORY: pain 3 view right [...] in OV> 04/04/24325 DD/ 4 TD/TT: 04/04/24324 Finished Cloth Examiner: us [facility] External Provider IMG XR PROCEDURES Edited Result - Final * Vascular US upper extremity venous duplex right (04/04/2024 3:24 AM EST) 04/04/2024 3:24 AM EST Narrative [facility] IMAGING - 04/04/2024 3:25 AM EST ? [facility] ?[address] ?[place] [address] ? Ultrasound Report ? Signed ? Patient: Veto Hernandez ?MR#: [id number] ? : 1985 ?Acct:[id number] ? Age/Sex: 38 / M ?ADM Date: 04/04/24 ? Loc: HO.ED ? Attending Dr: ? Ordering Physician: Lillie Jo ?? Date of Service: 04/04/24 ?? Procedure(s): US venous duplex UE RT ?? Accession Number(s): [id number] ? cc: Lillie Jo; [facility] ? CLINICAL HISTORY: pain ? Venous [...] DD/ 0324 ? TD/TT: 04/04/24 0324 ? Finished Cloth Examiner: ? Procedure Note Donotuseinterpreter, Image - 04/04/2024 [place] [address] Ultrasound Report Signed Patient: Veto HernandezMR#: [id number] : 1985Acct:[id number] Age/Sex: 38 / MADM Date: 04/04/24 Loc: HO.ED Attending Dr: Ordering Physician: Lillie Jo Date of Service: 04/04/24 Procedure(s): US venous duplex UE RT Accession Number(s): [id number] cc: Lillie Jo; [facility] CLINICAL HISTORY: pain Venous duplex ultrasound [...] in OV> 04/04/24324 DD/ 3 TD/TT: 04/04/24323 Finished Cloth Examiner: [facility] External Provider CV VASC ULAR PROCEDURES Edited Result - Final [facility]ING [address] [place] [address] documented in this encounter Visit Diagnoses Not on filedocumented in this encounter Additional Health Concerns Assessment Noted Time PHQ-9 Depression Total Score: 0 04/14/19 24 1:09 PM EST documented as of this encounter Care Teams Asphalt Spreader Operator Relationship Specialty Start Date End Date Name, MD Hogn [address] [place] [address] PCP - General Family Medicine 06/18/16 Magali Doty PharmD [address] [place] [address] Pharmacist Internal Medicine 08/15/22 documented as of this encounter
--- OUTSIDE RECORDS SUMMARY | 2024-04-25 17:40 | XMS_ITS | Encounter Summary ---
Author Organization [employer] Address 75 [facility] 7t [place] [address] Care Team Providers Care Angle Furnaceman Name Role Phone Name, Hong FOSS Primary Care Provider [phone] Magali Doty PharmD Unavailable [phone] Reason for Visit * Reason Comments Transition Of Care (Tcm) HDF- Unschedule d LVM #2 Encounter Details Date Type Department Care Team (Late st Contact Info) Description 04/15/2024 Patient Outreach [facility] [address] [place] [address] Name, MD Hong [address] [place] [address] Transition Of Care (Tcm) (HDF- Unscheduled LVM #2) Social History Tobacco Use Types Packs/Day Years [...] as of this encounter Miscellaneous Notes * Significant Event - Margaret Conley - 04/15/2024 2:03 PM EST 04/15/24 1400 Hospital Discharges and Admission for [facility] Type of Visit Hospital Admission Date of Admission/Visit 04/06/24 Date of Discharge 04/13/24 Facility [facility] Diagnosis Type 1 Diabetes , uncontrolled Disposition Discharged Home Follow-Up Actions Follow-Up Needed Provider appointment Follow-Up Outcome Left Voicemail Initial Contact Date 04/15/24 CC Margaret Stewart placed outbound call to patient for HDF outreach. CC placed second outreach call to offer patient with an HDF appointment with provider. No answer at this time. Patient's name and were not confirmed. CC left detailed message educating patient on importance of following up with provider following an inpatient admission. Provided contact information requesting a call back in orderto schedule the HDF appointment. Patient educated via voicemail on extended clinic hours on Mondaysand Wednesdays, and Walk-In Urgent Care Located in [facility]. Patient provided with after-hours line for [facility], , which offer night time triage service and option to transfer to personal development mentor provider if needed. CC will await return call from the patient. documented in this encounter Plan of Treatment Upcoming Encounters Date Type Department Care Team (Late st Contact Info) Description 06/20/2024 3:15 PM EDT Office Visit [facility] [address] [place] [address] Name, MD Hong [address] [place] [address] documented as of this encounter Goals Goal [...] documented as of this encounter Care Teams Angle Furnaceman Relationship Specialty Start Date End Date Hong Rodríguez MD [address] [place] [address] PCP - General Family Medicine 06/18/16 Magali Doty, PharmD [address] [place] [address] Pharmacist Internal Medicine 08/15/22 documented as of this encounter
--- OUTSIDE RECORDS SUMMARY | 2024-04-25 17:40 | XMS_ITS | Encounter Summary ---
Author Organization [employer] Address 75 [facility] 7t [place] [address] Care Team Providers Care Youth Officer Name Role Phone Name, Hong FOSS Primary Care Provider Magali Doty PharmD Unavailable [phone] Reason for Visit * Reason Comments Med Refill Encounter Details Date Type Department Care Team ([facility] st Contact Info) Description 04/13/2024 Refill [facility] MED & PEDS [address] [place] [address] Name, MD Hong [address] [place] [address] Social History Tobacco Use Types Packs/Day Years [...] Description 06/20/2024 3:15 PM EDT Office Visit [facility] [address] [place] [address] NameHong MD [address] [place] [address] documented as of this encounter Goals Goal [...] documented as of this encounter Care Teams Youth Officer Relationship Specialty Start Date End Date Hong Rodríguez MD [address] [place] [address] PCP - General Family Medicine 06/18/16 Magali Doty, PharmD [address] [place] [address] Pharmacist Internal Medicine 08/15/22 documented as of this encounter
--- OUTSIDE RECORDS SUMMARY | 2024-04-25 17:40 | XMS_ITS | Encounter Summary ---
Author Organization [employer] Address 75 [facility] 7t [place] [address] Care Team Providers Care Intelligence Senior Sergeant Name Role Phone Name, Hong FOSS Primary Care Provider [phone] Magali Doty PharmD Unavailable [phone] Reason for Visit * Reason Comments Care Coordination Outreach Encounter Details Date Type Department Care Team (Latest Contact Info) Description 04/07/2024 Patient Outreach [facility] CHC MED & PEDS [address] [place] [address] Name, MD Hong [address] [place] [address] Care Coordination (Outreach) Social History Tobacco Use Types Packs/Day Years [...] AM EDT documented as of this encounter Progress Notes * Nadia Fernando - 04/07/2024 12:03 PM EST CHW Nadia Fernando , placed outbound call to patient in regards to offer services. CHW introducing herself from [facility] CM Department . Patient spouse answer the phone , she states he still in hospital. Will re-attempt to contact with in 2 days. documented in this encounter Plan of Treatment Upcoming Encounters Date Type Department Care Team ([facility] st Contact Info) Description 06/20/2024 3:15 PM EDT Office Visit [facility] [address] [place] [address] Name, MD Hong [address] [place] [address] documented as of this encounter Goals Goal [...] documented as of this encounter Care Teams Intelligence Senior Sergeant Relationship Specialty Start Date End Date Name, MD Hong [address] [place] [address] PCP - General Family Medicine 06/18/16 Magali Doty, PharmD [address] [place] [address] Pharmacist Internal Medicine 08/15/22 documented as of this encounter
--- OUTSIDE RECORDS SUMMARY | 2024-04-25 17:40 | XMS_ITS | Encounter Summary ---
Author Organization [employer] Address 75 [facility] 7t [place] [address] Care Team Providers Care Ordained Minister Name Role Phone NameHong MD Primary Care Provider [phone] Magali Doty PharmD Unavailable [phone] Reason for Visit * Reason Comments Transition Of Care (Tcm) HDF- Unschedule d LVM Encounter Details Date Type Department Care Team (Late st Contact Info) Description 04/14/2024 Patient Outreach [facility] [address] [place] [address] Name, MD Hong [address] [place] [address] Transition Of Care (Tcm) (HDF- Unscheduled LVM ) Social History Tobacco Use Types Packs/Day Years [...] * Significant Event - Margaret Conley - 04/14/2024 9:21 AM EST 04/14/24 0902 Hospital Discharges and Admission for [facility] Type of Visit Hospital Admission Date of Admission/Visit 04/06/24 Date of Discharge 04/13/24 Facility [facility] Diagnosis Diabetes type 1, uncontrolled Disposition Discharged Home Follow-Up Actions Follow-Up Needed Provider appointment Follow-Up Outcome Left Voicemail Initial Contact Date 04/14/24 CC Margaret Stewart placed outbound call to patient for HDF outreach. CC placing call to offer patient with an HDF appointment with provider. No answer at this time. Patient's name and were not confirmed. CC left detailed message educating patient on importance of following up with provider followingan inpatient admission. Provided contact information requesting a call back in order to schedule the HDF appointment. Patient educated via voicemail on extended clinic hours on Mondays and Wednesdays, and Walk-In Urgent Care Located in [facility] of [facility]. Patient provided with after-hours line for [facility], , which offer night time triage service and option to transfer to software test and validation engineer provider if needed. CC will request Discharge summaries to scan into chart. CC will place additional outreach call within 2-5 business days. documented in this encounter Plan of Treatment Upcoming Encounters Date Type Department Care Team (Late st Contact Info) Description 06/20/2024 3:15 PM EDT Office Visit [facility] [address] [place] [address] Name, MD Hong [address] [place] [address] documented as of this encounter Goals Goal [...] documented as of this encounter Care Teams Ordained Minister Relationship Specialty Start Date End Date Hong Rodríguez MD [address] [place] [address] PCP - General Family Medicine 06/18/16 Puia, Magali, PharmD [address] [place] [address] Pharmacist Internal Medicine 08/15/22 documented as of this encounter
--- OUTSIDE RECORDS SUMMARY | 2024-04-25 17:40 | XMS_ITS | Encounter Summary ---
Author Organization [employer] Address 75 [facility] 7t [place] [address] Care Team Providers Care Grey Inspector Name Role Phone Name, Hong FOSS Primary Care Provider [phone] Magali Doty PharmD Unavailable [phone] Reason for Visit * Reason Comments Care Coordination Outreach Encounter Details Date Type Department Care Team (Latest Contact Info) Description 04/13/2024 Patient Outreach [facility] CHC MED & PEDS [address] [place] [address] Name, MD Hong [address] [place] [address] Care Coordination (Outreach) Social History Tobacco Use [...] encounter Progress Notes * Nadia Fernando - 04/13/2024 1:57 PM EST CHW Nadia Fernando , placed outbound call to patient in regards to offer services. CHW introducing herself from [facility] CM Department with CHW's name, department and direct contact [phone] requesting call back. Will re-attempt to contact within 5 days. and address not confirmed. documented in this encounter Plan of Treatment Upcoming Encounters Date Type Department Care Team (Late st Contact Info) Description 06/20/2024 3:15 PM EDT Office Visit [facility] [address] [place] [address] Name, MD Hong [address] [place] [address] documented as of this encounter Goals Goal Patient Goal Type Associated Problems Recent Progress Patient-Stated? Author Record your blood pressure once per day Blood Pressure No Magali Doty, PharmD Blood Pressure < 140/90 Blood Pressure 121/76(12/19/2 024 3:50 PM EST) No Magali Doty, PharmD documented as of this encounter Visit Diagnoses Not on filedocumented in this encounter Additional Health Concerns Assessment Noted Time PHQ-9 Depression Total Score: 0 04/14/19 24 1:09 PM EST documented as of this encounter Care Teams Grey Inspector Relationship Specialty Start Date End Date Name, MD Hong [address] [place] [address] PCP - General Family Medicine 06/18/16 Magali Doty, PharmD [address] [place] [address] Pharmacist Internal Medicine 08/15/22 documented as of this encounter
--- OUTSIDE RECORDS SUMMARY | 2024-04-25 17:40 | XMS_ITS | Encounter Summary ---
Author Organization [employer] Address [address] [facility] [address] 7t [place] [address] Care Team Providers Care Oyster Unloader Name Role Phone Name, Hong FOSS Primary Care Provider [phone] Magali Doty PharmD Unavailable [phone] Encounter Details Date Type Department Care Team (Late st Contact Info) Description 04/07/2024 Patient Outreach [facility] MED & PEDS [address] [place], [place] [phone] Name, MD Hong [address] [place] [address] Social History Tobacco Use Types Packs/Day Years [...] Progress Notes * Nadia Fernando - 04/07/2024 12:01 PM EST CHW Nadia Luna placed outreach call to facility [facility], as patient stratified on ADT Feed as admitted on 04/06/2024. CHW introduced herself calling from [facility], callingin regards to assist with discharge plan for patient. Patient's name and confirmed. Per floor nurse, patient continues admitted, and no current discharge plan at this time. Floor nurse took CHWs contact information to provide it to their discharge nurse once patient has a plan of discharge. CHWwill re-attempt reaching back to patient within the next 2 days if no call is returned by then. documented in this encounter Plan of Treatment Upcoming Encounters Date Type Department Care Team ([facility] st Contact Info) Description 06/20/2024 3:15 PM EDT Office Visit [facility] [address] [place] [address] Name, MD Hong [address] [place] [address] documented as of this encounter Goals Goal [...] documented as of this encounter Care Teams Oyster Unloader Relationship Specialty Start Date End Date Name, MD Hong [address] [place] [address] PCP - General Family Medicine 06/18/16 Magali Doty PharmD [address] [place] [address] Pharmacist Internal Medicine 08/15/22 documented as of this encounter
--- OUTSIDE RECORDS SUMMARY | 2024-04-25 17:40 | XMS_ITS | Encounter Summary ---
Author Organization [employer] Address 75 [facility] 7t [place] [address] Care Team Providers Care Financial Investment Manager Name Role Phone Name, Hong FOSS Primary Care Provider [phone] Magali Doty PharmD Unavailable [phone] Reason for Visit * Reason Comments Med Refill Encounter Details Date Type Department Care Team ([facility] st Contact Info) Description 01/11/2023 Refill [facility] [address] [place] [address] Name, MD Hong [address] [place] [address] Essential hypertension Social History Tobacco Use Types [...] Description 06/20/2024 3:15 PM EDT Office Visit [facility] [address] [place] [address] Name, MD Hong [address] [place] [address] documented as of this encounter Goals Goal Patient Goal Type Associated Problems Recent Progress Patient-Stated? Author Record your blood pressure once per day Blood Pressure No Magali Doty, PharmD Blood Pressure < 140/90 Blood Pressure 121/76( 024 3:50 PM EST) No Magali Doty, PharmD documented as of this encounter Visit Diagnoses Diagnosis Essential hypertension Unspecified essential hypertension documented in this encounter Care Teams Financial Investment Manager Relationship Specialty Start Date End Date NameHong MD [address] [place] [address] PCP - General Family Medicine 06/18/16 Magali Doty, PharmD [address] [place] [address] Pharmacist Internal Medicine 08/15/22 documented as of this encounter
--- OUTSIDE RECORDS SUMMARY | 2024-04-25 17:40 | XMS_ITS | Encounter Summary ---
Author Organization [facility] Address [address] [facility] [address] [place] [address] Phone Care Team Providers Care Curtains And Draperies Salesperson Name Role Phone Name, Hong FOSS Primary Care Provider [phone] Reason for Referral * Consultation (Routine) - Closed Specialty Diagnoses / Procedures Referred By Contac t Referred To Contact Transplant Surgery Diagnoses Chronic kidney disease, stage 4 (severe) (HCC) Pro Christianson MD Phone: tel: fax: [facility] [address] [place] [address] Phone: tel: Referral ID Status Reason Start Date Expiration Date V isits Requested Visits Authorized [id number] Closed Specialty Services Required 02/25/2023 02/25/2024 1 1 Encounter Details Date Type Department Care Team (Latest Contact Info) Description 02/25/2023 Office Communication [facility] [address] [place] [phone] Pro Christianson MD [address] [facility] [address] [place] [phone] Chronic kidney disease, stage 4 (severe) (HCC) [...] Primary documented in this encounter Care Teams Curtains And Draperies Salesperson Relationship Specialty Start Date End Date Name, MD Hong [address] [place] [address] PCP - General 03/05/20 documented as of this encounter
--- OUTSIDE RECORDS SUMMARY | 2024-04-25 17:40 | XMS_ITS | Encounter Summary ---
Author Organization [employer] Address 75 [facility] 7t [place] [address] Care Team Providers Care Clicking Machine Operator Name Role Phone Name, Hong FOSS Primary Care Provider [phone] Magali Doty PharmD Unavailable [phone] Reason for Visit * Reason Comments Care Coordination Outreach Encounter Details Date Type Department Care Team (Latest Contact Info) Description 04/20/2024 Patient Outreach [facility] CH[facility] MED & PEDS [address] [place] [address] Name, MD Hong [address] [place] [address] Care Coordination (Outreach) Social History Tobacco Use [...] encounter Progress Notes * Nadia Fernando - 04/20/2024 11:11 AM EST CHW Nadia Diaz , placed outbound call to patient in regards to offer services. CHW introducing herself from [facility] CM Department with CHW's name, department and direct contact [phone] requesting call back. Will re-attempt to contact within 5 days. and address not confirmed. documented in this encounter Plan of Treatment Upcoming Encounters Date Type Department Care Team (Late st Contact Info) Description 06/20/2024 3:15 PM EDT Office Visit [facility] [address] [place], [place] [phone] Name, MD Hong [address] [place] [address] documented as of this encounter Goals Goal [...] documented as of this encounter Care Teams Clicking Machine Operator Relationship Specialty Start Date End Date Name, MD Hong [address] [place] [address] PCP - General Family Medicine 06/18/16 Magali Doty, PharmD [address] [place] [address] Pharmacist Internal Medicine 08/15/22 documented as of this encounter
--- OUTSIDE RECORDS SUMMARY | 2024-04-25 17:41 | XMS_ITS | Encounter Summary ---
Author Organization [employer] Address 75 [facility] 7t [place] [address] Care Team Providers Care Butcher Meat Name Role Phone Name, Hong FOSS Primary Care Provider [phone] Magali Doty PharmD Unavailable [phone] Reason for Visit * Reason Comments Med Refill Encounter Details Date Type Department Care Team ([facility] st Contact Info) Description 09/13/2023 Refill [facility] [address] [place], [place] [phone] Name, MD Hong [address] [place] [address] Type 1 diabetes mellitus with other specified [...] EDT Office Visit [facility] [address] [place] [address] Name, MD Hong [address] [place] [address] documented as of this encounter Goals Goal Patient Goal Type Associated Problems Recent Progress Patient-Stated? Author Record your blood pressure once per day Blood Pressure No Magali Doty, PharmD Blood Pressure < 140/90 Blood Pressure 121/76( 024 3:50 PM EST) No Magali Doty, PharmD documented as of this encounter Visit Diagnoses Diagnosis Type 1 diabetes mellitus with other specified complication ([facility]) documented in this encounter Additional Health Concerns Assessment Noted Time PHQ-9 Depression Total Score: 0 04/14/19 24 1:09 PM EST documented as of this encounter Care Teams Butcher Meat Relationship Specialty Start Date End Date NameHong MD [address] [place] [address] PCP - General Family Medicine 06/18/16 Magali Doty, PharmD [address] [place] [address] Pharmacist Internal Medicine 08/15/22 documented as of this encounter
--- OUTSIDE RECORDS SUMMARY | 2024-04-25 17:41 | XMS_ITS | Encounter Summary ---
Author Organization [employer] Address [address] [facility] [address] [place] [address] Care Team Providers Care Web Interface Developer Name Role Phone Name, Hong FOSS Primary Care Provider [phone] Magali Doty PharmD Unavailable [phone] Reason for Visit * Reason Onset Date Comments WEED SPRAYER Services 09/08/2023 Encounter Details Date Type Department Care Team ([facility] st Contact Info) Description 09/08/[address] [facility] MEDICINE [address], [place] [id number] Name, MD Hong [address] [place] [address] WEED SPRAYER Services Social History Tobacco Use Types Packs/Day [...] to patricia to inform that pt. Or health careers instructor has to call for WEED SPRAYER service ( List is below ) , they will evaluate pt. For WEED SPRAYER service and will send documents to PCP for sign. No answer. LVM to call back on [phone]. [facility] [address] [place] [address] [facility] [address] [place] [address] A [facility] (Not accepted by [facility]) [address] [id number] * Telephone Encounter - Shantal Chavarria - 09/08/2023 1:17 PM EDT Tc from [facility] stating she received a phone call from [facility],. * Telephone Encounter - Colton Herrera RN - 09/08/2023 1:16 PM EDT T/C to [phone] through [employer]io interpreters id - [id number] for below message , No answer.voice mailbox is full, not able to LVM. * Telephone Encounter - Solomon Trevino - 09/08/2023 12:17 PM EDT Tc from the patients spouse requesting WEED SPRAYER services for the patient states the patient should not be alone due to conditions documented in this encounter Plan of Treatment Upcoming Encounters Date Type Department Care Team (Late st Contact Info) Description 06/20/2024 3:15 PM EDT Office Visit [facility] MEDICINE [address] [place] [address] Name, MD Hong [address] [place] [address] documented as of this encounter Goals Goal [...] documented as of this encounter Care Teams Web Interface Developer Relationship Specialty Start Date End Date Name, MD Hong [address] [place] [id number] PCP - General Family Medicine 06/18/16 Puia, Magali, PharmD [address] [place] [id number] Pharmacist Internal Medicine 08/15/22 documented as of this encounter
--- OUTSIDE RECORDS SUMMARY | 2024-04-25 17:41 | XMS_ITS | Encounter Summary ---
Author Organization [employer] [facility] Address [address] [place] [address] [address] [place] [address] Care Team Providers Care Heel Attacher Wood Name Role Phone NameHong MD Primary Care Provider [phone] Magali Doty PharmD Unavailable [phone] Reason for Visit * Reason Comments Med Refill Encounter Details Date Type Department Care Team (Late st Contact Info) Description 01/27/2022 Refill [facility] MEDICINE [address] [place] [id number] Hong Rodríguez MD [address] [place] [phone] Social History Tobacco Use Types Packs/Day Years [...] Description 06/20/2024 3:15 PM EDT Office Visit [facility] [address] [place] [phone] Hong Rodríguez MD [address] [place] [address] [phone] documented as of this encounter Visit Diagnoses Not on filedocumented in this encounter Care Teams Heel Attacher Wood Relationship Specialty Start Date End Date Hong Rodríguez MD [address] [place] [id number] PCP - General Family Medicine 06/18/16 Magali Doty, TimothyD [address] [place] [phone] Pharmacist Internal Medicine 08/15/22 documented as of this encounter
--- OUTSIDE RECORDS SUMMARY | 2024-04-25 17:41 | XMS_ITS | Clinical Summary ---
Author Organization [facility] Address [address] [place] [address] [address] [place] [address] Care Team Providers Care Vault Worker Name Role Phone Name, Hong FOSS Primary Care Provider [phone] Magali Doty PharmD Unavailable [phone] Allergies Active Allergy Reactions Criticality Noted Date Comments Gluten Meal GI intolerance 10/15/2022 Losartan Rash,GI intolerance Low 06/18/2022 Other reaction(s): abdominal pain Penicillins Swelling 07/13/2023 Valsartan Rash,Diarrhea Low 06/18/2022 Other reaction(s): GI problems Medications hydrALAZINE (Apresoline) 100 MG tabletIndicatio ns:Essential hypertension Take 1 tablet (100 mg) by mouth 3 times daily. 90 tablet 11 06/19/19 Active Blood Pressure kit Use once a day 1 kit 06/19/19 Active Insulin Aspart 100 UNIT/ML solution INJECT BY INSULIN PUMP THREE TIMES DAILY DIRECTED. DO NOT EXCEED 70 UNITS DAILY. 07/29/19 23 Active Insulin Disposable Pump (Omnipod 5 G6 Pod, Gen 5,) misc CHANGE POD EVERY 72 HOURS DIRECTED 08/22/19 23 Active metoprolol succinate XL (Toprol-XL) 100 MG 24 hr tabletIndicatio ns:Essential hypertension TAKE 1 TABLET BY MOUTH EVERY MORNING 90 tablet 06/16/19 24 Active omeprazole (PriLOSEC) [address] capsuleIndicati ons:Hypertensio n, unspecified type TAKE 1 CAPSULE BY MOUTH EVERY MORNING 90 capsule 3 07/13/19 24 Active tamsulosin (Flomax) 0.4 MG 24 hr capsule TAKE 1 CAPSULE BY MOUTH EVERY EVENING 90 capsule 08/13/19 24 Active Additional Information Patient not taking.Reported on 12/10/2023 calcitriol (Rocaltrol) 0.5 MCG capsule Take 0.5 mcg by mouth in the morning. 11/02/19 Active Baqsimi One Pack 3 MG/DOSE nasal powder USE 1 SPRAY (3MG) IN ONE NOSTRIL FOR A PATIENT WITH SEVERE HYPOGLYCEMIA WHO IS NOT RESPONSIVE AND UNABLE SELF-TREAT WITH GLUCOSE. AFTERWARDS TURN ON SIDE. MAY REPEAT IN 15MINUTES IF PATIENT DOES NOT RESPOND. 10/22/19 Active NIFEdipine XL (Procardia XL) 60 MG 24 hr tablet Take 1 tablet by mouth in the morning. 11/26/19 Active oxyCODONE (Roxicodone) 5 MG immediate release tablet Take 1 tablet by mouth if needed in the morning and at bedtime for severe pain. 12/02/19 Active gabapentin (Neurontin) 100 MG capsule Take 1 capsule by mouth at bedtime. Active Acetone, Urine, Test (Ketone Test) stripIndication s:Diabetic ketoacidosis without coma associated with type 1 diabetes mellitus (CMS/HCC) Insert 1 each into the urethra if needed each day (abdominal pain). USE DIRECTED WHEN BLOOD SUGAR IS OVER 250 OR FOR NAUSEA AND VOMITING THREE TIMES DAILY 100 strip 3 12/11/19 24 Active nortriptyline (Pamelor) 50 MG capsule TAKE 1 CAPSULE BY MOUTH AT BEDTIME 90 capsule 1 12/23/19 24 Active atorvastatin (Lipitor) 80 MG tabletIndicatio ns:Hypertension , unspecified type TAKE 1 TABLET BY MOUTH EVERY MORNING 90 tablet 1 01/26/20 24 Active ezetimibe (Zetia) 10 MG tabletIndicatio ns: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 (CMS/HCC),Type 1 diabetes mellitus with other specified complication (CMS/HCC) TAKE 1 TABLET BY MOUTH EVERY MORNING 90 tablet 1 01/26/20 24 Active Viagra 50 MG tabletIndicatio ns:Type 1 diabetes mellitus with other specified complication (CMS/HCC) TAKE 1 TABLET 1 HOUR BEFORE SEXUAL RELATIONS ONCE DAILY NEEDED. 10 tablet 2 02/11/20 24 Active cloNIDine (Catapres) 0.1 MG tablet TAKE 1 TABLET BY MOUTH TWICE DAILY IN THE MORNING AND IN THE EVENING 60 tablet 1 04/13/19 25 Active sevelamer carbonate (Renvela) 800 MG tablet TAKE 1 TABLET BY MOUTH THREE TIMES DAILY IN THE MORNING, AT NOON, AND IN THE EVENING WITH MEALS 90 tablet 1 04/13/19 25 Active cloNIDine (Catapres) 0.1 MG tablet TAKE 1 TABLET BY MOUTH TWICE DAILY IN THE MORNING AND IN THE EVENING 60 tablet 1 02/04/20 24 2024 Discontinued sevelamer carbonate (Renvela) 800 MG tablet TAKE 1 TABLET BY MOUTH THREE TIMES DAILY IN THE MORNING, AT NOON, AND IN THE EVENING WITH MEALS 90 tablet 1 02/04/20 24 2024 Discontinued Active Problems Patient Care Coordination No te [...] dry mouth. -Plan to continue f/u with [facility] endocrinology, continue with CGM and insulin pump [...] after meals -continue to be followed by [facility] endocrinology, plan to get new CGM monitor, pt has one currently but is getting most updated one -continue with insulin pump, also managed by [facility] endocrinology -I will f/u with [facility] endocrinology to obtain recommendations for gastroparesis tx. Chronic low back pain 06/19/2016 Resolved Problems Problem Noted Date Diagnosed Date Resolved Date End stage renal disease 12/11/202311/23 Stage 3 chronic kidney disease 03/15/2022 06/18/2022 Encounters Date Type Department Care Team Description 04/20/2024 Patient Outreach [facility] [address] [place], [place] [phone] NameHong MD Care Coordination (Outreach) 04/15/2024 Patient Outreach [facility] [address], [place] [phone] Name, MD Hong Transition Of Care (Tcm) (HDF- Unscheduled LVM #2) 04/14/2024 Patient Outreach [facility] [address] [place] [address] Hong Rodríguez MD Transition Of Care (Tcm) (HDF- Unscheduled LVM ) 04/13/2024 Patient Outreach [facility] [address] [place] [address] Hong Rodríguez MD Care Coordination (Outreach) 04/13/2024 Refill [facility] [address] [place] [address] Hong Rodríguez MD 04/07/2024 Patient Outreach [facility] [address] [place] [address] Hong Rodríguez MD Care Coordination (Outreach) 04/07/2024 Patient Outreach [facility] [address] [place] [address] Hong Rodríguez MD 04/06/2024 Orders Only GENERIC EXTERNAL DATA DEPARTMENT Provider, Generic External Data 04/04/2024 Orders Only [facility] External Provider, [facility] 03/18/2024 Orders Only GENERIC EXTERNAL DATA DEPARTMENT Provider, Generic External Data 03/10/2024 Orders Only GENERIC EXTERNAL DATA DEPARTMENT Provider, Generic External Data 02/11/2024 3:45 PM EST Office Visit [facility] [address] [place] [address] Hong Rodríguez MD Type 1 diabetes mellitus with other specified complication (CMS/HCC) (Primary Dx); 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 (CMS/HCC) 02/05/2024 Orders Only GENERIC EXTERNAL DATA DEPARTMENT Provider, Generic External Data 02/04/2024 Refill [facility] [address] [place] [address] Hong Rodríguez MD from Last 3 Months Immunizations Name [...] Description 06/20/2024 3:15 PM EDT Office Visit [facility] [address] [place] [address] Name, MD Hong [address] [place] [address] Health Maintenance Due Date Last Done Comments HIV Screening 1984 Eye Exam 1994 Family Planning (PISQ) 09/28/1999 Hepatitis C Screening 2002 COVID-19 Vaccine ( season) 2023 Diabetes: Hemoglobin A1C 03/12/2024 024, 11/11/2023, 04/14/2023, [...] 121/76( 024 3:50 PM EST) No Janina Dotysa PharmPete Procedures Procedure Name Priority Date/Time Associated Diagnosis [...] WHOLE BLOOD Routine 04/06/2024 5:10 AM EST COMPREHENSIVE METABOLIC PANEL Routine 04/06/2024 4:49 AM EST CBC WITH AUTO DIFFERENTIAL Routine 04/06/2024 4:49 AM EST SARS COV2/INFLUENZA A/B AND RSV RNA QL NAAT Routine 04/06/2024 4:49 AM EST GLUCOSE, WHOLE [...] AUTO DIFFERENTIAL Routine 02/05/2024 7:55 AM EST LIPID PANEL, STANDARD Routine 01/08/2024 8:02 AM EST Type 1 diabetes mellitus with other specified complication (CMS/HCC) POCT GLYCATED HEMOGLOBIN, TOTAL Routine 12/11/2023 11:55 AM EDT Type 1 diabetes mellitus with other specified complication (CMS/HCC) from Last 3 Months or Most Recently Relevant to Health Maintenance Results * (ABNORMAL) VENOUS BLOOD GAS (04/06/2024 10:41 AM EST) VBG pH 7.41 7.32 - 7.43 [facility] Comment:METER #: [id number] additional_comment: Cb karol VBG PCO2 28 mmHg [facility] Comment:METER #: [id number] additional_comment: Cb akrol VBG PO2 73 mmHg [facility] Comment:METER #: [id number] additional_comment: Cb karol VBG Base Excess -5.2 mmol/L [facility] Comment:METER #: [id number] additional_comment: Cb karol VBG HCO3 18(L) 22 - 26 mmol/L [facility] Comment:METER #: [id number] additional_comment: Oscar roberson O2 Sat, Bay 96.0 % [facility] Comment:METER #: [id number] additional_comment: Oscar roberson 04/06/2024 10:4 1 AM EST 04/06/2024 10:46 AM EST us Generic External Data Provider LAB BLOOD ORDERAB LES Final Result [facility] [address] [place] [phone] * (ABNORMAL) B Type Natriuretic Peptide (BNP) (04/06/2024 10:28 AM EST) B Type Natriuretic Peptide 1,291(H) <100 pg/mL [facility] Comment:For those patients w ho are being treated with Natrecor(nesiritide, recombinant BNP), BNP testing should beperformed at least two hours post treatment in order toensure that only endogenous levels of BNP are detected. 04/06/2024 10:2 8 AM EST 04/06/2024 10:32 AM EST Generic External Data Provider LAB BLOOD ORDERAB LES Final Result Performing Organization Address [facility] de Phone Number [facility] [address] [place] [address] [phone] * Ammonia, Plasma (04/06/2024 10:28 AM EST) Ammonia (P) 26 13 - 55 umol/L [facility] 04/06/2024 10:2 8 AM EST 04/06/2024 10:32 AM EST Generic External Data Provider LAB BLOOD ORDERAB LES Final Result Performing Organization Address [facility] de Phone Number [facility] [address] [place] [address] [phone] * XR Chest 1 View (04/06/2024 10:19 AM EST) Only the most recent of2 resultswithin the time period is included. Anatomical Region Laterality Modality Chest Radiographic Sindy ging 04/06/2024 10:1 9 AM EST Narrative 04/06/2024 10:53 AM EST ? [facility] ?[address] ?[place] [address] ?XRay Report ? Signed ? Patient: Hernandez,Veto ?MR#: [id number] ? : 1985 ?Acct:[id number] ? Age/Sex: 38 / M ?ADM Date: 02/12/25 ? Loc: HO.ED ? Attending Dr: ? Ordering Physician: Jada Ramirez NP ?? Date of Service: 04/06/24 ?? Procedure(s): XR chest 1V ?? Accession Number(s): [id number] ? cc: Name,Hong FOSS; Jada Ramirez NP [...] DD/ 1019 ? TD/TT: 04/06/24 1040 ? Aluminum Pourer: ? Procedure Note Mariel Crenshaw - 04/06/2024 [place] [address] XRay Report Signed Patient: Veto HernandezMR#: [id number] : 1985Acct:[id number] Age/Sex: 38 / MADM Date: 04/06/24 Loc: HO.ED Attending Dr: Ordering Physician: Jada Ramirez NP Date of Service: 04/06/24 Procedure(s): XR chest 1V Accession Number(s): [id number] cc: Hong Rodríguez MD; Jada Ramirez NP EXAMINATION: XR CHEST 1 [...] 04/06/24 1050 DD/ 1019 TD/TT: 04/06/24 1040 Aluminum Pourer: [facility] External Provider IMG XR PROCEDURES Final Result * (ABNORMAL) Glucose, Whole Blood (04/06/2024 10:09 AM EST) Only the most recent of3 resultswithin the time period is included. Glucose, Whole Blood 118(H) 60 - 115 mg/dL [facility] Comment:METER #: [id number] 04/06/2024 10:0 9 AM EST 04/06/2024 10:14 AM EST Generic External Data Provider LAB BLOOD ORDERAB LES Final Result [facility] [address] [place] [phone] * Drug Monitoring, Panel 1, Screen, Urine (04/06/2024 9:29 AM EST) Pathologist [facility] Opiate Screen Urine Not Detected Not Detect [facility] Comment:Opiate cut-off is 30 0 ng/mL.Positive results are unconfirmed and should not be used fornon-medical purposes. Barbiturates, Urine Not Detected Not Detect [facility] Comment:Barbiturate cut-off is 200 ng/mL.Positive results are unconfirmed and should not be used fornon-medical purposes. Phencyclidine Screen Urine Not Detected Not Detect [facility] Comment:Phencyclidine cut-of f is 25 ng/mL.Positive results are unconfirmed and should not be used fornon-medical purposes. Amphetamine Screen Urine Not Detected Not Detect [facility] Comment:Amphetamine cut-off is 1000 ng/mL.Positive results are unconfirmed and should not be used fornon-medical purposes. Benzodiazepines Screen Urine Not Detected Not Detect [facility] Comment:Benzodiazepine cut-o ff is 200 ng/mL.Positive results are unconfirmed and should not be used fornon-medical purposes. Cocaine Screen Urine Not Detected Not Detect [facility] Comment:Cocaine cut-off is 3 00 ng/mL.Positive results are unconfirmed and should not be used fornon-medical purposes. Cannabinoid Screen Urine Not Detected Not Detect [facility] Comment:Cannabinoid cut-off is 50 ng/mL.Positive results are unconfirmed and should not be used fornon-medical purposes. Methadone Screen, Urine Not Detected Not Detect ng/mL [facility] Comment:Methadone cut-off is 300 ng/mL.Positive results are unconfirmed and should not be used fornon-medical purposes. FENTANYL URINE Not Detected Not Detect [facility] Comment:Fentanyl cut-off is 1 ng/mL.Positive results are unconfirmed and should not be used fornon-medical purposes. Oxycodone Urine Screen Not Detected Not Detect ng/mL [facility] Comment:Oxycodone cut-off is 100 ng/mL.Positive results are unconfirmed and should not be used fornon-medical purposes. Buprenorphine Screen Not Detected Not Detect ng/mL [facility] Comment:Buprenorphine cut-of f is 5 ng/mL.Positive results are unconfirmed and should not be used fornon-medical purposes. 04/06/2024 9:29 AM EST 04/06/2024 9:32 AM EST us Generic External Data Provider LAB URINE ORDERAB LES Final Result [facility] [address] [place] [address] [phone] * CT Head w/o Contrast (04/06/2024 9:19 AM EST) Anatomical Region Laterality Modality Head, Neck Computed Tomogra phy 04/06/2024 9:19 AM EST Narrative 04/06/2024 10:07 AM EST ? [facility] ?[address] ?[place] [address] ? CT Scan Report ? Signed ? Patient: Hernandez,Veto ?MR#: [id number] ? : 1985 ?Acct:[id number] ? Age/Sex: 38 / M ?ADM Date: 04/06/24 ? Loc: HO.ED ? Attending Dr: ? Ordering Physician: Jada Ramirez NP ?? Date of Service: 04/06/24 ?? Procedure(s): CT head/brain wo IV con ?? Accession Number(s): [id number] ? cc: Name,Hong FOSS; Jada Ramirez NP ? Report Number: ?? [id number]: Total DLP = 1025.00 mGy-cm ?? EXAMINATION: [...] signed by Bob Bob MD in OV> ?04/06/243 ? DD/ 0919 ? TD/TT: 04/06/24 0956 ? Aluminum Pourer: ? Procedure Note Donotlinseyinterpreter, Image - 04/06/[address] [place] [address] [address] Scan Report Signed Patient: Veto HernandezMR#: [id number] : 1985Acct:[id number] Age/Sex: 38 / MADM Date: 04/06/24 Loc: HO.ED Attending Dr: Ordering Physician: Jada Ramirez NP Date of Service: 04/06/24 Procedure(s): CT head/brain wo IV con Accession Number(s): [id number] cc: Hong Rodríguez MD; Jada Ramirez NP Report Number: [id number]: Total DLP = 1025.00 mGy-cm EXAMINATION: CT [...] brain parenchyma is unremarkable. There is normal glil/white differentiation. The ventricular system is normal in [...] Bob MD in OV> 04/06/24 1003 DD/ 8 TD/TT: 04/06/2456 Aluminum Pourer: [facility] External Provider IMG CT PROCEDURES Final Result * Lactic Acid (04/06/2024 7:34 AM EST) Pathologist [facility] Lactic Acid 0.8 0.5 - 2.0 mmol/L [facility] 04/06/2024 7:34 AM EST 04/06/2024 7:38 AM EST Generic External Data Provider LAB BLOOD ORDERAB LES Final Result [facility] [address] [place] [phone] * SARS-CoV-2 RNA, Influenza A/B, and RSV RNA, Ql NAAT (04/06/2024 4:49 AM EST) Pathologist [facility] Influenza A PCR NEGATIVE Negative [facility] Influenza B PCR NEGATIVE Negative [facility] Resp Syncy Virus RNA Qual PCR NEGATIVE Negative [facility] SARS COV2 PCR NEGATIVE Negative [facility] Comment:All test results mus t be [...] use by authorized laboratories.Testing performed on the [employer] GeneXpert utilizingreal-time RT-PCR.All SARS CoV2 and positive influenza A/B results arereported to [facility]. 04/06/2024 4:49 AM EST 04/06/2024 4:53 AM EST us Generic External Data Provider LAB MICROBIOLOGY - GENERAL ORDERABLES Final Result [facility] [address] [place] [phone] * (ABNORMAL) CBC auto differential (04/06/2024 4:49 AM EST) Only the most recent of3 resultswithin the time period is included. White Blood Count 10.6 4.8 - 10.8 X10*3/uL [facility] Red Blood Count 2.75(L) 4.60 - 5.80 X10*6/uL [facility] Hemoglobin 8.2(L) 14.0 - 18.0 g/dl [facility] Hematocrit 24.4(L) 42.0 - 52.0 % [facility] Mean Corpuscular Volume 88.7 80.0 - 98.0 fL [facility] Mean Corpuscular Hemoglobin 29.8 27.0 - 33.0 pg [facility] Mean Corpuscular HGB Conc 33.6 31.0 - 36.0 g/dl [facility] Red Cell Distribution Width 13.1 11.0 - 16.0 % [facility] Platelet Count 218 160 - 400 X10*3/uL [facility] Mean Platelet Volume 8.9(L) 9.4 - 12.4 fL [facility] Neutrophils Percent Auto 77.6(H) 45 - 73 % [facility] Imm Gran Pct Auto 0.5(H) 0.0 - 0.4 % [facility] Lymphocytes Percent Auto 10.6(L) 20 - 40 % [facility] Monocytes Percent Auto 10.2 2 - 11 % [facility] Eosinophils Percent Auto 0.9 0 - 4 % [facility] Basophils Percent Auto 0.2 0 - 2 % [facility] NRBC Pct Auto 0.0 0.0 - 0.2 /100WBC [facility] Neutrophils Absolute Auto 8.2 2.0 - 8.3 x10*3/uL [facility] Imm Gran Abs Auto 0.05(H) 0.00 - 0.03 X10*3/uL [facility] Lymphocytes Absolute Auto 1.1(L) 1.2 - 4.9 X10*3/uL [facility] Monocytes Absolute Auto 1.1 0.1 - 1.2 X10*3/uL [facility] Eosinophils Absolute Auto 0.1 0.0 - 0.4 X10*3/uL [facility] Basophils Absolute Auto 0.0 0.0 - 0.2 X10*3/uL [facility] NRBC Abs Auto 0.000 0.0 - 0.012 X10*3/uL [facility] 04/06/2024 4:49 AM EST 04/06/2024 4:53 AM EST us Generic External Data Provider LAB BLOOD ORDERAB LES Final Result [facility] [address] [place] [phone] * (ABNORMAL) Comprehensive Metabolic Panel (04/06/2024 4:49 AM EST) Sodium 140 135 - 145 mmol/L [facility] Potassium 5.1 3.3 - 5.1 mmol/L [facility] Chloride 109(H) 96 - 108 mmol/L [facility] Carbon Dioxide 16(L) 22 - 29 mmol/L [facility] Anion Gap 20 12 - 20 [facility] Urea Nitrogen (BUN) 99(H) 9 - 16 mg/dL [facility] Creatinine, Serum 8.41(HH) 0.5 - 1.4 mg/dL [facility] Comment:Critical value for t est(s):CREATININE Results called to klesey back by:SHON Person calling:MANINDERate:04/06/24 Time:0516 Creatinine Clr Calc Pharmacy 11.4 [facility] Comment:eGFR (calculated fro m the MDRD study equation) and eCrCl(calculated from the Cockcroft-Gault equation) are based ondifferent parameters and may not yield comparable results.If eCrCl result is absurd, please check patient'sheight/weight. Estimated Glomerular Filt Rate 7 [facility] Comment:Chronic Kidney Disea se: Estimated GFR < 60 mL/min/1.21x0Xunekl Kidney Disease: Estimated GFR < 15 mL/min/1.73m2 Glucose 80 60 - 115 mg/dL [facility] Calcium 7.9(L) 8.4 - 10.2 mg/dL [facility] Bilirubin, Total 0.3 0.0 - 1.0 mg/dL [facility] Aspartate Amino Transferase 15 5 - 37 U/L [facility] Alanine Aminotransferase 9 0 - 40 U/L [facility] Total Protein 7.3 6.5 - 8.0 g/dL [facility] Albumin Level 3.6 3.5 - 5.0 g/dL [facility] Alkaline Phosphatase 85 39 - 117 U/L [facility] 04/06/2024 4:49 AM EST 04/06/2024 4:53 AM EST us Generic External Data Provider LAB BLOOD ORDERAB LES Final Result [facility] [address] [place] [phone] * XR Shoulder 2+ Views Right (04/04/2024 3:25 AM EST) Anatomical Region Laterality Modality Upper Extremities, Shoulder Right Radi ographic Imaging 04/04/2024 3:25 AM EST Narrative 04/04/2024 3:27 AM EST ? [facility] ?[address] ?[place] [address] ?XRay Report ? Signed ? Patient: Hernandez,Veto ?MR#: [id number] ? : 1985 ?Acct:[id number] ? Age/Sex: 38 / M ?ADM Date: 04/04/24 ? Loc: HO.ED ? Attending Dr: ? Ordering Physician: Lillie Jo ?? Date of Service: 04/04/24 ?? Procedure(s): XR shoulder RT min 2V ?? Accession Number(s): [id number] ? cc: Lillie Jo; [facility] ? CLINICAL HISTORY: pain ? 3 [...] 04/04/24 0326 ? DD/ 0325 ? TD/TT: 04/04/24324 ? Aluminum Pourer: ? Procedure Note Mariel Crenshaw - 04/04/[address] [address] XRay Report Signed Patient: Veto Hernandez#: [id number] : 1985Acct:[id number] Age/Sex: 38 / MADM Date: 04/04/24 Loc: HO.ED Attending Dr: Ordering Physician: Lillie Jo Date of Service: 04/04/24 Procedure(s): XR shoulder RT min 2V Accession Number(s): [id number] cc: Lillie Jo; [facility] CLINICAL HISTORY: pain 3 view right [...] in OV> 04/04/24325 DD/ 4 TD/TT: 04/04/24324 Aluminum Pourer: us [facility] External Provider IMG XR PROCEDURES Edited Result - Final * Vascular US upper extremity venous duplex right (04/04/2024 3:24 AM EST) 04/04/2024 3:24 AM EST Narrative [facility] - 04/04/2024 3:25 AM EST ? [facility] ?[address] ?[place] [address] ? Ultrasound Report ? Signed ? Patient: Veto Hernandez ?MR#: [id number] ? : 1985 ?Acct:[id number] ? Age/Sex: 38 / M ?ADM Date: 04/04/24 ? Loc: HO.ED ? Attending Dr: ? Ordering Physician: Lillie Jo ?? Date of Service: 04/04/24 ?? Procedure(s): US venous duplex UE RT ?? Accession Number(s): [id number] ? cc: Lillie Jo; [facility] ? CLINICAL HISTORY: pain ? Venous [...] DD/ 0324 ? TD/TT: 04/04/24 0324 ? Aluminum Pourer: ? Procedure Note Donotmikey, Image - 04/04/[address] [address] Ultrasound Report Signed Patient: Veto HernandezMR#: [id number] : 1985Acct:[id number] Age/Sex: 38 / MADM Date: 04/04/24 Loc: HO.ED Attending Dr: Ordering Physician: Lillie Jo Date of Service: 04/04/24 Procedure(s): US venous duplex UE RT Accession Number(s): [id number] cc: Lillie Jo; [facility] CLINICAL HISTORY: pain Venous duplex ultrasound [...] in OV> 04/04/24324 DD/ 3 TD/TT: 04/04/24323 Aluminum Pourer: [facility] External Provider CV VASC ULAR PROCEDURES Edited Result - Final [facility] [address] [place] [phone] * Glucose, Whole Blood (03/18/2024 3:11 PM EST) Glucose, Whole Blood 89 60 - 115 mg/dL [facility] Comment:METER #: [id number] Testing performed in the Endocrinology Department [address] , [address], [facility]. 03/18/2024 3:11 PM EST 03/18/2024 3:18 PM EST us Generic External Data Provider LAB BLOOD ORDERAB LES Final Result Performing Organization Address City/[facility]/ZIP Co de Phone Number [facility] [address] [place] [phone] * (ABNORMAL) CBC (03/10/2024 9:56 AM EST) White Blood Count 5.8 4.8 - 10.8 X10*3/uL [facility] Red Blood Count 3.32(L) 4.60 - 5.80 X10*6/uL [facility] Hemoglobin 9.9(L) 14.0 - 18.0 g/dl [facility] Hematocrit 28.5(L) 42.0 - 52.0 % [facility] Mean Corpuscular Volume 85.8 80.0 - 98.0 fL [facility] Mean Corpuscular Hemoglobin 29.8 27.0 - 33.0 pg [facility] Mean Corpuscular HGB Conc 34.7 31.0 - 36.0 g/dl [facility] Red Cell Distribution Width 11.5 11.0 - 16.0 % [facility] Platelet Count 216 160 - 400 X10*3/uL [facility] Mean Platelet Volume 9.6 9.4 - 12.4 fL [facility] NRBC Pct Auto 0.0 0.0 - 0.2 /100WBC [facility] NRBC Abs Auto 0.000 0.0 - 0.012 X10*3/uL [facility] 03/10/2024 9:56 AM EST 03/10/2024 9:56 AM EST us Generic External Data Provider LAB BLOOD ORDERAB LES Final Result Performing Organization Address City/[facility]/ZIP Co de Phone Number [facility] [address] [place] [phone] * (ABNORMAL) Basic Metabolic Panel (03/10/2024 9:56 AM EST) Only the most recent of2 resultswithin the time period is included. Sodium 142 135 - 145 mmol/L [facility] Potassium 4.2 3.3 - 5.1 mmol/L [facility] Chloride 110(H) 96 - 108 mmol/L [facility] Carbon Dioxide 23 22 - 29 mmol/L [facility] Anion Gap 13 12 - 20 [facility] Urea Nitrogen (BUN) 82(H) 9 - 16 mg/dL [facility] Creatinine, Serum 8.52(HH) 0.5 - 1.4 mg/dL [facility] Comment:Critical value for C RE: Results called to and read russelly: KANIKA Zuluaga Person calling: ELLIOT Date: 03-10-24 Time: 1056 Estimated Glomerular Filt Rate 7 [facility] Comment:Chronic Kidney Disea se: Estimated GFR < 60 mL/min/1.39p1Miwkpg Kidney Disease: Estimated GFR < 15 mL/min/1.73m2 Glucose 123(H) 60 - 115 mg/dL [facility] Calcium 10.5(H) 8.4 - 10.2 mg/dL [facility] 03/10/2024 9:56 AM EST 03/10/2024 9:56 AM EST us Generic External Data Provider LAB BLOOD ORDERAB LES Final Result Performing Organization Address [facility] Co de Phone Number [facility] [address] [place] [phone] * PTH, Intact Without Calcium (02/05/2024 7:55 AM EST) Parathyroid Hormone, Intact 34.9 8.7 - 77.1 pg/mL [facility] 02/05/2024 7:55 AM EST 02/05/2024 7:55 AM EST Generic External Data Provider LAB BLOOD ORDERAB LES Final Result Performing Organization Address City/[facility]/ZIP Co de Phone Number [facility] [address] [place] [phone] * (ABNORMAL) Lipid Panel, Standard (01/08/2024 8:02 AM EST) Triglycerides 127 <150 mg/dL [facility] Comment:Desirable Triglyceri de: less than 150 mg/dLBorderline High Triglyceride 150-199 mg/dLHigh Triglyceride: 200-499 mg/dLVery High Triglyceride: greater than or equal to 5OO mg/dL Cholesterol 136 <200 mg/dL [facility] Comment:Desirable Cholestero l: less than 200 mg/dLBorderline High Cholesterol: 200-239 mg/dLHigh Cholesterol: greater than 239 mg/dL LDL Cholesterol Calculated 71 <100 mg/dL [facility] Comment:Desirable LDL: less than 100 mg/dLNear Optimal/Above Optimal LDL: 110- 129 mg/dLBorderline High LDL: 130-159 mg/dLHigh LDL: 160-189 mg/dLVery High LDL: greater than or equal to 190 mg/dL HDL Cholesterol 40(L) >40 mg/dL [facility] Comment:Desirable HDL: great er than 40 mg/dL Note: This HDL assay may give artificially low results in patients with liver disease. Blood Venous blood specimen / Unknown 01/08/2024 8:02 AM EST 01/08/2024 9:14 AM EST Tammy Yates MD LAB BLOOD ORDERABLES Final Res ult Performing Organization Address [facility]/ZIP Co de Phone Number [facility] [address] [place] [phone] * (ABNORMAL) POCT HGB A1C (12/11/2023 11:55 AM EDT) Hemoglobin A1C 6.6(A) 4.0 - 6.0 % QC Media Lot # [id number] Lot# Expiration Date ,067,[id number] Blood 12/11/2023 11:5 5 AM EDT Tammy Yates MD POINT OF CARE TEST ENTER/EDIT ORDERABLES Final Result from Last 3 Months or Most Recently Relevant to Health Maintenance Insurance [address] [place], [place] [address] Care Teams Vault Worker Relationship Specialty Start Date End Date Name, MD Hong [address] [place] [address] PCP - General Family Medicine 06/18/16 Magali Doty PharmD [address] [place], [place] Pharmacist Internal Medicine 08/15/22
--- OUTSIDE RECORDS SUMMARY | 2024-04-25 17:41 | XMS_ITS | Encounter Summary ---
Author Organization [employer] Address [address] [facility] 7[address] [place] [address] Care Team Providers Care Account Clerk Name Role Phone Name, Hong FOSS Primary Care Provider [phone] Magali Doty PharmD Unavailable [phone] Reason for Visit * Reason Comments Med Refill Encounter Details Date Type Department Care Team ([facility] st Contact Info) Description 09/08/2023 Refill [facility] [address], [place] [phone] Name, MD Hong [address] [place] [address] Social History Tobacco Use Types Packs/Day Years [...] 3:15 PM EDT Office Visit [facility] [address] [place] [phone] Name, MD Hong [address] [place] [phone] documented as of this encounter Goals Goal [...] documented as of this encounter Care Teams Account Clerk Relationship Specialty Start Date End Date Name, MD Hong [address] [place] [phone] PCP - General Family Medicine 06/18/16 LoraineiaMagali, PharmD [address] [place] [phone] Pharmacist Internal Medicine 08/15/22 documented as of this encounter
--- OUTSIDE RECORDS SUMMARY | 2024-04-25 17:41 | XMS_ITS | Data Portability ---
Author Organization [facility] Address [address] [place] [phone] Assessment No assessment recorded. Plan of Treatment Reminders Order Date Submit Date Provider Last Modified By Organization Details Last Modified Time Details Appointments None recorded. Lab CMP, serum or plasma 2020 [facility], [address] [place] [address], [phone], 07:22:26 CBC w/ auto diff 2020 [facility], [address] [place] [address], [phone], 07:22:27 C-reactive protein, quantitati ve, serum or plasma [address], [address] [place] [address], [phone], 13:19:44 TSH, serum, reflex free T4 [address], [address] [place] [address], [phone], 13:19:44 Referral None recorded. Procedures None recorded. Surgeries None recorded. Imaging None recorded. Medication Orders trazodone 50 mg tablet 2020 [facility] [address], [address] [place], [address], 15:05:36 meclizine 25 mg tablet 2020 021 [address] [facility] [address], [address] [place], [address], 1 15:04:10 turmeric 450 mg-turmeri c root extract 50 mg capsule 2020 021 [email or web address] [facility] [address], [address] [place], [address], 15:08:06 ketorolac 30 mg/mL (1 mL) injection solution 2020 jessy ill1 Not available 17:16:26 Patient TargetsNo targets recorded. Patient Instructions Encounter Date Encounter Id Patient Instructions Last Modified By Organization Details Last Modified Time 11/12/2020 [id number] Follow up with pardeep brown in 1 week geoffrey Not available 11/12/2020 15:11:20 Reason for Referral None Reported. Results Created Date Observation Date Name Description Value Unit Range Abnormal Flag Note LastModifiedBy Organization Detail LastModifiedTime 11/13/1911/13/2020 COMPR EHENS HERMELINDA METAB OLIC PANEL glucose 83 mg/dL 65-99 normal Fasti ng refer ence inter galen Not Available [facility] [address], [place], [address], 11/13/2020 07:22:24 11/13/19 21 11/13/2020 COMPR EHENS HERMELINDA METAB OLIC PANEL urea nitrogen (BUN) 10 mg/dL 7-25 normal Not Available [facility] [address], [place], [address], 11/13/2020 07:22:24 11/13/19 21 11/13/2020 COMPR EHENS HERMELINDA METAB OLIC PANEL creatinine 0.68 mg/dL 0.60-1 .35 normal Not Available [facility] [address], [place], [address], 11/13/2020 07:22:24 11/13/19 21 11/13/2020 COMPR EHENS HERMELINDA METAB OLIC PANEL eGFR non-afr. filipino 123 mL/mi n/1.7 3m2 > or = 60 normal Not Available [facility] [address], [place], [address], 11/13/2020 07:22:24 11/13/19 21 11/13/2020 COMPR EHENS HERMELINDA METAB OLIC PANEL eGFR 142 mL/mi n/1.7 3m2 > or = 60 normal Not Available [facility] [address], [place], [address], 11/13/2020 07:22:24 11/13/19 21 11/13/2020 COMPR EHENS HERMELINDA METAB OLIC PANEL BUN/creatini ne ratio NOT APPLIC ABLE (calc ) 6-22 Not Available [facility] [address], [place], [address], 11/13/2020 07:22:24 11/13/19 21 11/13/2020 COMPR EHENS HERMELINDA METAB OLIC PANEL sodium 139 mmol/ L 135-14 6 normal Not Available [facility] [address], [place], [address], 11/13/2020 07:22:24 11/13/19 21 11/13/2020 COMPR EHENS HERMELINDA METAB OLIC PANEL potassium 4.1 mmol/ L 3.5-5. 3 normal Not Available [facility] [address], [place], [address], 11/13/2020 07:22:24 11/13/19 21 11/13/2020 COMPR EHENS HERMELINDA METAB OLIC PANEL chloride 103 mmol/ L 98-110 normal Not Available [facility] [address], [place], [address], 11/13/2020 07:22:24 11/13/19 21 11/13/2020 COMPR EHENS HERMELINDA METAB OLIC PANEL carbon dioxide 28 mmol/ L 20-32 normal Not Available [facility] [address], [place], [address], 11/13/2020 07:22:24 11/13/19 21 11/13/2020 COMPR EHENS HERMELINDA METAB OLIC PANEL calcium 10.0 mg/dL 8.6-10 .3 normal Not Available [facility] [address], [place], [address], 11/13/2020 07:22:24 11/13/19 21 11/13/2020 COMPR EHENS HERMELINDA METAB OLIC PANEL protein, total 7.7 g/dL 6.1-8. 1 normal Not Available [facility] [address], [place], [address], 11/13/2020 07:22:24 11/13/19 21 11/13/2020 COMPR EHENS HERMELINDA METAB OLIC PANEL albumin 5.2 g/dL 3.6-5. 1 high Not Available [facility] [address], [place], [address], 11/13/2020 07:22:24 11/13/19 21 11/13/2020 COMPR EHENS HERMELINDA METAB OLIC PANEL globulin 2.5 g/dL_ (calc ) 1.9-3. 7 normal Not Available [facility] [address], [place], [address], 11/13/2020 07:22:24 11/13/19 21 11/13/2020 COMPR EHENS HERMELNIDA METAB OLIC PANEL albumin/glob ulin ratio 2.1 (calc ) 1.0-2. 5 normal Not Available [facility] [address], [place], [address], 11/13/2020 07:22:24 11/13/19 21 11/13/2020 COMPR EHENS HERMELINDA METAB OLIC PANEL bilirubin, total 0.4 mg/dL 0.2-1. 2 normal Not Available [facility] [facility] [address], [place], [address], 11/13/2020 07:22:24 11/13/19 21 11/13/2020 COMPR EHENS HERMELINDA METAB OLIC PANEL alkaline phosphatase 42 U/L 36-130 normal Not Available [facility] [employer] [facility] [address], [place], [address], 11/13/2020 07:22:24 11/13/1911/13/2020 COMPR EHENS HERMELINDA METAB OLIC PANEL AST 15 U/L 10-40 normal Not Available [facility] [address], [place], [address], 11/13/2020 07:22:24 11/13/19 21 11/13/2020 COMPR EHENS HERMELINDA METAB OLIC PANEL ALT 18 U/L 9-46 normal Not Available [facility] [facility] [address], [place], [address], 11/13/2020 07:22:24 11/13/1911/13/2020 TSH W/REF WILNER TO FT4 TSH w/reflex to FT4 1.98 mIU/L 0.40-4 .50 normal Not Available [facility] [facility] [address], [place], [address], 11/13/2020 07:22:27 11/13/1911/13/2020 CBC (INCL UDES DIFF/ PLT) white blood cell count 7.8 thous and/u L 3.8-10 .8 normal Not Available [employer] [facility] [address], [place], [address], 11/13/2020 07:22:27 11/13/1911/1311/13/2020 CBC (INCL UDES DIFF/ PLT) red blood cell count 4.94 nighat on/uL 4.20-5 .80 normal Not Available [facility] [address], [place], [address], 11/13/2020 07:22:27 11/13/19 21 11/13/2020 CBC (INCL UDES DIFF/ PLT) hemoglobin 14.7 g/dL 13.2-1 7.1 normal Not Available [facility] [address], [place], [address], 11/13/2020 07:22:27 11/13/1911/13/2020 CBC (INCL UDES DIFF/ PLT) hematocrit 43.1 % 38.5-5 0.0 normal Not Available [facility] [address], [place], [address], 11/13/2020 07:22:27 11/13/1911/13/2020 CBC (INCL UDES DIFF/ PLT) MCV 87.2 fL 80.0-1 00.0 normal Not Available [facility] [address], [place], [address], 11/13/2020 07:22:27 11/13/19 21 11/13/2020 CBC (INCL UDES DIFF/ PLT) MCH 29.8 pg 27.0-3 3.0 normal Not Available [facility] [address], [place], [address], 11/13/2020 07:22:27 11/13/1911/13/2020 CBC (INCL UDES DIFF/ PLT) MCHC 34.1 g/dL 32.0-3 6.0 normal Not Available [facility] [address], [place], [address], 11/13/2020 07:22:27 09/11/13/2020 CBC (INCL UDES DIFF/ PLT) RDW 13.5 % 11.0-1 5.0 normal Not Available [facility] [address], [place], [address], 11/13/2020 07:22:27 11/13/19 21 11/13/2020 CBC (INCL UDES DIFF/ PLT) platelet count 243 thous and/u L 140-40 0 normal Not Available [facility] [address], [place], [address], 11/13/2020 07:22:27 11/13/1911/13/2020 CBC (INCL UDES DIFF/ PLT) MPV 9.3 fL 7.5-12 .5 normal Not Available [facility] [address], [place], [address], 11/13/2020 07:22:27 11/13/19 21 11/13/2020 CBC (INCL UDES DIFF/ PLT) absolute neutrophils 5554 cells /uL 1500-7 800 normal Not Available [facility] [address], [place], [address], 11/13/2020 07:22:27 11/13/19 21 11/13/2020 CBC (INCL UDES DIFF/ PLT) absolute lymphocytes 1334 cells /uL 850-39 00 normal Not Available [facility] [address], [place], [address], 11/13/2020 07:22:27 11/13/19 21 11/13/2020 CBC (INCL UDES DIFF/ PLT) absolute monocytes 655 cells /uL 200-95 0 normal Not Available [facility] [address], [place], [address], 11/13/2020 07:22:27 11/13/19 21 11/13/2020 CBC (INCL UDES DIFF/ PLT) absolute eosinophils 218 cells /uL 15-500 normal Not Available [facility] [address], [place], [address], 11/13/2020 07:22:27 11/13/19 21 11/13/2020 CBC (INCL UDES DIFF/ PLT) absolute basophils 39 cells /uL 0-200 normal Not Available [facility] [address], [place], [address], 11/13/2020 07:22:27 11/13/19 21 11/13/2020 CBC (INCL UDES DIFF/ PLT) neutrophils 71.2 % normal Not Available [facility] [address], [place], [address], 11/13/2020 07:22:27 11/13/19 21 11/13/2020 CBC (INCL UDES DIFF/ PLT) lymphocytes 17.1 % normal Not Available [facility] [address], [place], [address], 11/13/2020 07:22:27 11/13/19 21 11/13/2020 CBC (INCL UDES DIFF/ PLT) monocytes 8.4 % normal Not Available [facility] [address], [place], [address], 11/13/2020 07:22:27 11/13/1911/13/2020 CBC (INCL UDES DIFF/ PLT) eosinophils 2.8 % normal Not Available [facility] [address], [place], [address], 11/13/2020 07:22:27 11/13/1911/13/2020 CBC (INCL UDES DIFF/ PLT) basophils 0.5 % normal Not Available [facility] [address], [place], [address], 11/13/2020 07:22:27 Result Notes None recorded. Problems No Known Problems Procedures Surgical History Date Name Laterality Status Provider Name and Address Organization Details Recorded Time Hernia Repair completed [facility] 11/12/2020 14:26:35 Imaging Results None recorded. Procedure Notes None recorded. Medical Equipment None Reported. Allergies Allergen ID Allergen Name Allergen Category Reaction Reaction Severity Criticality Documentation Date Start Date Code Code System Note Provider Name and Address Organization Details Recorded Time 1418 Product containin g penicilli n (product) medicatio n swelling Not available Not available 11/12/2020 25597 8001 SNOMED [facility] 14:25:51 Medications Name Sig Start [...] cm 82 /min 97.3 [degF] 24.9 kg/m2 45039.1 9 g 97 % 97 % 111 mm[Hg] 72 mm[Hg] [facility] 14:25:24 Social History Question Answer Notes LastModified by Organizat ion Details LastModified Time Tobacco Smoking Status Never Smoker [facility] 11/12/2020 14:26:26 What Is Your [...] SNOMED-CT Code Diagnosis ICD10 Code Diagnosis Note [id number] Isabel Pinto-Gi , DO Main Office [address] [place] [phone] 11/12/2020 14:14:01 11/12/2020 16:59:27 Unintentional weight loss 142666710 R63.4 15# wt loss since 40 days after he got his Moderna vaccine Dizziness 030767048 R42 Insomnia 273761376 F51.0 9 Health Concerns Section Related Observation [...] and insomnia. Isabel Hurst, [address] [place], [address], [facility] 11/12/2020 18:14:12
== END 2024-04-25 16:50 | disposition home or self-care (01) ==
PROVIDERS: Visit Provider Internal Medicine Hypertension Specialist
DX: E10.22 Type 1 diabetes mellitus with diabetic chronic kidney disease (principal); N18.5 Chronic kidney disease, stage 5; E10.65 Type 1 diabetes mellitus with hyperglycemia
CPT/HCPCS: 99024

== ENCOUNTER → 2024-04-25 14:51 | Outpatient (BNVA) | payer MEDICAID, SELFPAY | PROVIDERS: Visit Provider Internal Medicine Hypertension Specialist | DX: E10.22 Type 1 diabetes mellitus with diabetic chronic kidney disease (principal); N18.5 Chronic kidney disease, stage 5; E10.65 Type 1 diabetes mellitus with hyperglycemia | CPT/HCPCS: 99212 ==

== ENCOUNTER 2024-06-23 14:46 | Outpatient (AMB) | payer MEDICAID, SELFPAY ==
--- NOTE | 2024-06-23 14:50 | A.OFFVIS_ITS ---
Vital Signs 06/23/24 14:51 Height 5 ft 8 in Weight 165 lb 5.547 oz BMI 25.1 BP 150/90 H Blood Pressure Location Rt brachial Position Sitting Pulse 96 Pulse Source Pulse Oximeter Pulse Oximetry (%) 97 Oxygen Delivery Method Room Air Intake Visit Reasons: T1DM Intake Note: Patient presents today for a follow-up on Type 1 Diabetes Mellitus: Last Diabetic eye exam was on: 05/2023 Last Podiatry exam was on: Does not see a Lime Slaker Most recent HbA1c: 5.3.0%, 06/23/2024 Random Glucose- 232 mg/dL, Today Research Physiologist Required: Yes Research Physiologist Language: Commercial Pilot Services: Research Physiologist Offered & Declined Information Interpreted: non-clinical & clinical Accompanied by: Self / Same As Patient Allergies losartan Allergy (Verified 06/23/24 14:52) Gastrointestinal Upset valsartan Adverse Reaction (Unknown, Verified 06/23/24 14:52) GI problems HPI Comments Details: Patient is a 38-year-old male with DM type 1 diagnosed at the age of 7 here for f/u management of diabetes. He is on an Omnipod 5 with a G7 sensor.. He is here today unaccompanied by his . Isaías Villegas used for interpretation. Most recent A1C 03/18/24 6%. (may not be reliable indicator due to anemia. Fructosamine ordered in the lab) Has retinopathy: Legally blind in both eyes. Last eye examination: earlier this year. Has neuropathy on low dose gabapentin. Symptoms include, numbness, pain. Denies cramping in the lower extremity Has nephropathy: Followed by Dr. Bejarano He is being evaluated by [facility] transplant service for preemptive transplantation. He had a temporary HD access placed during a recent hospitalization which was discontinued. Kidney function remained stable He has on the active list. Has AVF in left forearm- approx 09/2023. Not mature yet Has HLD: On high dose atorvastatin and Zetia. Backup insulin pump plan 15-20 units of Lantus once daily in 5-6 units of Humalog t.i.d. with the meals. He has seen Dr. Prateek CAMACHO at [facility] and was diagnosed with gastroparesis. He has been to the ER several times with left upper quadrant abdominal pain and treated in the ER with Dilaudid. He currently has no pain and we will schedule an appointment with Dr. Chandra for evaluation. Basal rate(s) (units/hour) : ?12 AM to 7 AM 1.25 units/hr? 7 AM to 12 AM 1.0 units /hr Bolus setting Insulin Carbohydrate Ratio (s) 12 AM to 12 AM? 1 unit:11gm? Correction Factor / Sensitivity Factor 12 AM to 12 AM? 1 unit / 60 mg/dL 12 AM to 7 AM??1 unit / 70 mg/dL 7 AM to 12 AM? 1 unit / 60 mg/dL Active Insulin Time:? 3 hours Target(s): 12 AM to 12 AM 120 mg/dL [facility] Medical History Hypertensive urgency CKD (chronic kidney disease) stage 4, GFR 15-29 ml/min Hypertensive nephrosclerosis Diabetic gastroparesis Pancreatitis Vitamin D deficiency Hypocalcemia Background diabetic retinopathy associated with type 2 diabetes mellitus Diabetes type 1, uncontrolled Hemangioma of liver Legally blind Acid reflux Sciatica Gastritis Polyneuropathy Essential hypertension Hyperlipidemia LDL goal <70 Surgical History History of surgery Hx of endoscopy Hx of circumcision Hx of appendectomy Hx of eye surgery Family History Father Diabetes mellitus Mother Diabetes mellitus Maternal Grandfather Diabetes mellitus Maternal Grandmother Diabetes mellitus Social History Household Members: Spouse Household Members Other:: and girlfriend Housing: House Do you presently have visiting nurse or other home services: Yes (RENEWABLE ENERGY TECHNICIAN) Alcohol intake: former Comment: 1 TO 1 SITTER Patient Tobacco Use Status: Former Tobacco user Second Hand Smoke Exposure: No Substance Use Type: Marijuana Advance Directives Date on File: 04/13/20 service: No Current occupational status: disabled Physical Exam Vital Signs: Last Vital Signs Pulse 96 06/23/24 14:51 BP 150/90 H 06/23/24 14:51 Pulse Ox 97 06/23/24 14:51 Oxygen Delivery Method Room Air 06/23/24 14:51 BMI result Body Mass Index 25.1 Results AMB Hemoglobin A1c AMB Hemoglobin A1c 5.3 % Last Edit by GIL Licona on 06/23/24 15:10 Results Reviewed Results Reviewed: Laboratory Last Values Glucose (Clinic) 232 mg/dL (60-115) H 06/23/24 14:58 Hgb A1c (Clinic) 5.3 % (4.0-6.0) 06/23/24 15:08 Assessment & Plan Assessment & Plan Orders: Orders AMB Hemoglobin A1c Today E10.22 - Type 1 diabetes mellitus with diabetic chronic kidney disease, N18.5 - Chronic kidney disease, stage 5 Coding
[2024-06-23 14:51] VITALS: BP 150/90; PULSE 96; O2SAT 97; BMI 25.1
[2024-06-23 15:02] LABS: Glucose, Whole Blood 232 mg/dL (60-115)
--- OUTSIDE RECORDS SUMMARY | 2024-06-23 16:43 | XMS_ITS | Encounter Summary ---
Author Organization [employer] Address [address] [facility] 7t [place] [address] Care Team Providers Care Finish Sander Name Role Phone Name, Hong FOSS Primary Care Provider [phone] Magali Doty PharmD Unavailable [phone] Reason for Visit * Reason Comments Diabetes Encounter Details Date Type Department Care Team ([facility] st Contact Info) Description 06/20/2024 3:15 PM EDT Office Visit [facility] [address] [place] [address] Name, MD Hong [address] [place] [address] Type 1 diabetes mellitus with other specified complication (CMS/HCC) (Primary Dx); ESRD on hemodialysis (CMS/[facility]); Insomnia due to medical condition Social History Tobacco Use Types Packs/Day Years [...] AM EDT documented as of this encounter Last Filed Vital Signs Vital Sign Reading Time Taken Comments Blood Pressure 148/93 06/20/2024 3:28 PM EDT Pulse 103 06/20/2024 3:28 PM EDT Temperature 37.2 ??C (99 ??F) 06/20/2024 3:28 PM EDT Respiratory Rate 18 06/20/2024 3:28 PM EDT Oxygen Saturation 97% 06/20/2024 3:28 PM EDT Inhaled Oxygen Concentration - - Weight 74 kg (163 lb 3.2 oz) 06/20/2024 3:28 PM EDT Height 172.7 cm (5' 8 ) 06/20/2024 3:28 PM EDT Body Mass Index 24.81 06/20/2024 3:28 PM EDT documented in this encounter Progress Notes * Hong Rodríguez MD - 06/20/2024 3:15 PM EDT Subjective Patient ID: Veto Peralta is a 38 y.o. male who presents for Diabetes. Patient comes for a follow-up visit. He feels well. He started doing hemodialysis 3 times a week since March. He has a functioning AV fistula in the left forearm. He describes insomnia usually thedays that he has dialysis. He has requested lidocaine cream to be used to numb the left forearm area prior to dialysis sessions. His blood sugar has been well-controlled. His BP has been well-controlled. He follows closely with nephrology. He is on the list for renal transplant. His DM is managed at [facility] endo. Review of Systems Constitutional: Negative for chills, fatigue and fever. HENT: Negative for sore throat. Respiratory: Negative for cough, chest tightness and shortness of breath. Cardiovascular: Negative for chest pain, palpitations and leg swelling. Gastrointestinal: Negative for abdominal pain and blood in stool. Visit Vitals BP (!) 148/93 (BP Location: Right arm, Patient Position: Sitting, BP Cuff Size: Adult) Pulse 103 Temp 99 ??F (37.2 ??C) (Temporal) Resp 18 Ht 5' 8 (1.727 m) Wt 163 lb 3.2 oz (74 kg) SpO2 97% BMI 24.81 kg/m?? Smoking Status Former BSA 1.88 m?? Objective Physical Exam Constitutional: Appearance: Normal appearance. Cardiovascular: Rate and Rhythm: Normal rate and regular rhythm. Heart sounds: No murmur heard. Pulmonary: Effort: Pulmonary effort is normal. No respiratory distress. Breath sounds: No wheezing, rhonchi or rales. Abdominal: Palpations: Abdomen is soft. Tenderness: There is no abdominal tenderness. Musculoskeletal: Right lower leg: No edema. Left lower leg: No edema. Neurological: Mental Status: He is alert. Lab Results Component Value Date HGBA1C 5.2 06/20/2024 HGBA1C 6.6 (A) 12/11/2023 HGBA1C 7.4 (A) 11/11/2023 HGBA1C 6.7 (A) 04/14/2023 HGBA1C 6.5 (H) 10/15/2022 HGBA1C 5.8 06/18/2022 HGBA1C 8.1 (A) 03/25/2022 HGBA1C 6.8 (H) 10/03/2021 Assessment/Plan Diagnoses and all orders for this visit: Type 1 diabetes mellitus with other specified complication (CMS/[facility]) Comments: Well-controlled. He denies episodes of hypoglycemia at home. He is using insulin as prescribed by [facility]. Complications of his diabetes include end-stage renal disease and blindness. Today I prescribed him Viagra to use for erectile dysfunction. Orders: - POCT Glucose - POCT HGB A1C - Viagra 50 MG tablet; TAKE 1 TABLET 1 HOUR BEFORE SEXUAL RELATIONS ONCE DAILY NEEDED. ESRD on hemodialysis ([facility]) Comments: Patient feels better since he started on hemodialysis. He continues to follow with nephrology closely. I prescribed the lidocaine cream he requested to numb the left forearm prior to hemodialysis sessions. Insomnia due to medical condition Comments: I prescribed hydroxyzine to use at bedtime for anxiety and sleep the days he has hemodialysis. Other orders - hydrOXYzine pamoate (Vistaril) 25 MG capsule; Take 1 capsule (25 mg) by mouth if needed at bedtime for anxiety for up to 10 days. - lidocaine (Xylocaine) 5 % ointment; Apply topically if needed for mild pain. documented in this encounter Plan of Treatment Upcoming Encounters Date Type Department Care Team (Late st Contact Info) Description 08/23/2024 2:00 PM EDT Office Visit [facility] [address] [place] [address] Hong Rodríguez MD [address] [place] [address] documented as of this encounter Goals Goal Patient Goal Type Associated Problems Recent Progress Patient-Stated? Author Record your blood pressure once per day Blood Pressure No PuMagali puente, PharmD Blood Pressure < 140/90 Blood Pressure 148/93( 025 3:28 PM EDT) No Magali Doty PharmD documented as of this encounter Procedures Procedure Name Priority Date/Time Associated Diagnosis Comments POCT GLYCATED HEMOGLOBIN, TOTAL Routine 06/20/2024 3:29 PM EDT Type 1 diabetes mellitus with other specified complication ([facility]) POCT GLUCOSE Routine 06/20/2024 3:29 PM EDT Type 1 diabetes mellitus with other specified complication ([facility]) documented in this encounter Results * POCT HGB A1C (06/20/2024 3:29 PM EDT) Hemoglobin A1C 5.2 4.0 - 6.0 % QC Media Lot # [id number] Lot# Expiration Date [id number] Blood 06/20/2024 3:29 PM EDT Hong Rodríguez MD POINT OF CARE TEST ENTER/EDIT OR DERABLES Final Result * (ABNORMAL) POCT Glucose (06/20/2024 3:29 PM EDT) Glucose Blood, POC 301(A) 60 - 200 mg/dL QC Media Lot # [id number] Lot# Expiration Date [id number] Blood Capillary blood specimen / Unknown 06/20/2024 3:29 PM EDT Hong Rodríguez MD POINT OF CARE TEST ENTER/EDIT OR DERABLES Final Result documented in this encounter Visit Diagnoses Diagnosis Type 1 diabetes mellitus with other specified complication ([facility])- Primary ESRD on hemodialysis ([facility]) Insomnia due to medical condition Organic insomnia, unspecified documented in this encounter Additional Health Concerns Assessment Noted Time PHQ-9 Depression Total Score: 0 04/14/19 24 1:09 PM EST documented as of this encounter Care Teams Finish Sander Relationship Specialty Start Date End Date Name, MD Hong [address] [place] [address] PCP - General Family Medicine 06/18/16 Magali Doty PharmD [address] [place] [address] Pharmacist Internal Medicine 08/15/22 documented as of this encounter
--- OUTSIDE RECORDS SUMMARY | 2024-06-23 16:43 | XMS_ITS | Encounter Summary ---
Author Organization [employer] Address [address] [facility] [address] 7t [place] [address] Care Team Providers Care Rfid Manager Name Role Phone Name, Hong FOSS Primary Care Provider [phone] Magali Doty PharmD Unavailable [phone] Encounter Details Date Type Department Care Team (Latest Contact Info) Description 06/20/2024 Travel Social History Tobacco Use Types Packs/Day Years [...] Description 08/23/2024 2:00 PM EDT Office Visit [facility] [address] [place] [address] Name, MD Hong [address] [place] [address] documented as of this encounter Goals Goal Patient Goal Type Associated Problems Recent Progress Patient-Stated? Author Record your blood pressure once per day Blood Pressure No Puia, Magali, PharmD Blood Pressure < 140/90 Blood Pressure 148/93( 025 3:28 PM EDT) No Puia Magali, PharmD documented as of this encounter Visit Diagnoses Not on filedocumented in this encounter Additional Health Concerns Assessment Noted Time PHQ-9 Depression Total Score: 0 04/14/19 24 1:09 PM EST documented as of this encounter Care Teams Rfid Manager Relationship Specialty Start Date End Date NameHong MD [address] [place] [address] PCP - General Family Medicine 06/18/16 PuiaMagali, PharmD [address] [place] [address] Pharmacist Internal Medicine 08/15/22 documented as of this encounter
--- OUTSIDE RECORDS SUMMARY | 2024-06-23 16:43 | XMS_ITS | Encounter Summary ---
Author Organization [employer] Address [address] [facility] 7t [place] [address] Care Team Providers Care Hydroelectric Mechanic Name Role Phone Name, Hong FOSS Primary Care Provider [phone] Magali Doty PharmD Unavailable [phone] Encounter Details Date Type Department Care Team (Late st Contact Info) Description 06/23/2024 Orders Only GENERIC EXTERNAL DATA DEPARTMENT Provider, [...] Description 08/23/2024 2:00 PM EDT Office Visit [facility] [address] [place] [address] Name, MD Hong [address] [place] [address] documented as of this encounter Goals Goal Patient Goal Type Associated Problems Recent Progress Patient-Stated? Author Record your blood pressure once per day Blood Pressure No Puia, Magali, PharmD Blood Pressure < 140/90 Blood Pressure 148/93( 025 3:28 PM EDT) No Puia, Magali, PharmD documented as of this encounter Procedures Procedure Name Priority Date/Time Associated Diagnosis Comments GLUCOSE, WHOLE BLOOD Routine 06/23/2024 2:58 PM EDT documented in this encounter Results * (ABNORMAL) Glucose, Whole Blood (06/23/2024 2:58 PM EDT) Glucose, Whole Blood 232(H) 60 - 115 mg/dL [facility] Comment:METER #: [id number] 5Testing performed in the Endocrinology Department [address] , [address], [facility]. 06/23/2024 2:58 PM EDT 06/23/2024 3:02 PM EDT us Generic External Data Provider LAB BLOOD ORDERAB LES Final Result [facility] [address] [place] [phone] documented in this encounter Visit Diagnoses Not on filedocumented in this encounter Additional Health Concerns Assessment Noted Time PHQ-9 Depression Total Score: 0 04/14/19 24 1:09 PM EST documented as of this encounter Care Teams Hydroelectric Mechanic Relationship Specialty Start Date End Date Name, MD Hong [address] [place] [address] PCP - General Family Medicine 06/18/16 Magali Doty PharmD [address] [place] [address] Pharmacist Internal Medicine 08/15/22 documented as of this encounter
--- OUTSIDE RECORDS SUMMARY | 2024-06-23 16:44 | XMS_ITS | Encounter Summary ---
Author Organization [employer] Address [address] [facility] 7t [place] [address] Care Team Providers Care Processing Supervisor Name Role Phone Name, Hong FOSS Primary Care Provider [phone] Magali Doty PharmD Unavailable [phone] Reason for Visit * Reason Comments Med Refill Encounter Details Date Type Department Care Team ([facility] st Contact Info) Description 09/13/2023 Refill [facility] [address] [place], [place] [phone] Name, MD Hong [address] [place] [address] Type 1 diabetes mellitus with other specified [...] Description 08/23/2024 2:00 PM EDT Office Visit [facility] [address] [place] [address] Name, MD Hong [address] [place] [address] documented as of this encounter Goals Goal Patient Goal Type Associated Problems Recent Progress Patient-Stated? Author Record your blood pressure once per day Blood Pressure No Magali Doty PharmPete Blood Pressure < 140/90 Blood Pressure 148/93( 025 3:28 PM EDT) No Magali Doty PharmD documented as of this encounter Visit Diagnoses Diagnosis Type 1 diabetes mellitus with other specified complication (CMS/[facility]) documented in this encounter Additional Health Concerns Assessment Noted Time PHQ-9 Depression Total Score: 0 04/14/19 24 1:09 PM EST documented as of this encounter Care Teams Processing Supervisor Relationship Specialty Start Date End Date Name, MD Hong [address] [place] [address] PCP - General Family Medicine 06/18/16 Magali Doty PharmD [address] [place] [address] Pharmacist Internal Medicine 08/15/22 documented as of this encounter
--- OUTSIDE RECORDS SUMMARY | 2024-06-23 16:44 | XMS_ITS | Encounter Summary ---
Author Organization [employer] Address [address] [facility] 7t [place] [address] Care Team Providers Care Wet Milling Wheel Operator Name Role Phone Name, Hong FOSS Primary Care Provider [phone] Magali Doty PharmD Unavailable [phone] Reason for Visit * Reason Onset Date Comments AGRICULTURAL ENGINEERING TECHNOLOGIST Services 09/08/2023 Encounter Details Date Type Department Care Team ([facility] st Contact Info) Description 09/08/2023 Telephone [facility] [address] [place] [address] Name, MD Hong [address] [place] [address] AGRICULTURAL ENGINEERING TECHNOLOGIST Services Social History Tobacco Use Types Packs/Day [...] patricia to inform that pt. Or care giver has to call for AGRICULTURAL ENGINEERING TECHNOLOGIST service ( List is below ) , they will evaluate pt. For AGRICULTURAL ENGINEERING TECHNOLOGIST service and will send documents to PCP for sign. No answer. LVM to call back on [phone]. [facility] [address] [place] [address] [place] [address] A [facility] Nursing Services [facility] (Not accepted by [facility]) [address] [address] * Telephone Encounter - Shantal Chavarria - 09/08/2023 1:17 PM EDT Tc from [facility] stating she received a phone call from [facility],. * Telephone Encounter - Colton Herrera RN - 09/08/2023 1:16 PM EDT T/C to [phone] through [facility] id - [id number] for below message , No answer.voice mailbox is full, not able to LVM. * Telephone Encounter - Solomon Trevino - 09/08/2023 12:17 PM EDT Tc from the patients spouse requesting AGRICULTURAL ENGINEERING TECHNOLOGIST services for the patient states the patient should not be alone due to conditions documented in this encounter Plan of Treatment Upcoming Encounters Date Type Department Care Team (Late st Contact Info) Description 08/23/2024 2:00 PM EDT Office Visit [facility] [address] [place] [address] Hong Rodríguez MD [address] [place] [address] documented as of this encounter Goals Goal [...] documented as of this encounter Care Teams Wet Milling Wheel Operator Relationship Specialty Start Date End Date Hong Rodríguez MD [address] [place] [address] PCP - General Family Medicine 06/18/16 Puia, Magali, PharmD [address] [place] [address] Pharmacist Internal Medicine 08/15/22 documented as of this encounter
--- OUTSIDE RECORDS SUMMARY | 2024-06-23 16:44 | XMS_ITS | Encounter Summary ---
Author Organization [facility], Address [address] [place] [address] Phone Care Team Providers Care Fourdrinier Tender Name Role Phone Name, Hong FOSS Primary Care Provider [phone] Encounter Details Date Type Department Care Team ([facility] Contact Info) Description 06/22/2024 Orders Only [facility] [address] [place] [phone] Bharath Maria MD [address] [facility] [place] [phone] Social History Tobacco Use Types Packs/Day Years [...] Encounters Date Type Department Care Team (Late Contact Info) Description 06/28/2024 9:30 AM EDT Procedure visit [facility], - [facility] [address] [place] [address] [place] [phone] documented as of this encounter Procedures Procedure Name Priority Date/Time Associated Diagnosis Comments HEMATOLOGY Routine 06/22/2024 documented in this encounter Results * (ABNORMAL) HEMATOLOGY (06/22/2024) Hemoglobin 12.4(L) 14.0 - 18.0 g/dL [facility] Hemoglobin x 3 37.2(L) 42.0 - 54.0 % [facility] 06/22/2024 06/23/2024 8:2 7 AM EDT Narrative SHAWANDA - 06/23/2024 Unless otherwise specified, test(s) performed at: [facility], [address] [place] [address] CROSS CUT SAWYER: Neeraj Jones M.D. For any questions, please call customer service at FREQUENCY:OTHER Resulting Agency Comment Specimen source: Blood us Bharath Maria MD LAB BLOOD ORDERABLES Final Re sult [facility] See order comments or contact performing lab Unknown, [place] documented in this encounter Visit Diagnoses Not on filedocumented in this encounter Care Teams Fourdrinier Tender Relationship Specialty Start Date End Date Name, MD Hong [address] [place] [address] PCP - General 03/05/20 documented as of this encounter
--- OUTSIDE RECORDS SUMMARY | 2024-06-23 16:44 | XMS_ITS | Clinical Summary ---
Author Organization [facility] Address [address] [facility] [address] [place] [address] Phone Care Team Providers Care Sales Administration Manager Name Role Phone Name, Hong FOSS Primary Care Provider [phone] Allergies Active Allergy Reactions Criticality Noted Date Comments Gluten Meal GI intolerance 10/15/2022 Losartan Rash Low 06/18/2022 Penicillins Swelling 07/13/2023 Valsartan Rash Low 06/18/2022 Medications * This [...] Do not crush, chew, or split. Active tamsulosin (FLOMAX) 0.4 MG 24 hr capsule Take 0.4 mg by mouth 1 (one) time each day in the evening 4 Active sildenafil (Viagra) 50 MG tablet Take 50 mg by mouth if needed for erectile dysfunction 4 Active sevelamer carbonate (RENVELA) 800 MG tablet Take 800 mg by mouth in the morning and 800 mg at noon and 800 mg in the evening. Take with meals. 5 Active oxyCODONE (ROXICODONE) 5 MG immediate release tablet Take 1 tablet by mouth 2 times daily as needed 4 Active ondansetron ODT (ZOFRAN-ODT) 4 MG dispersible tablet Take 4 mg by mouth every 6 (six) hours if needed for nausea or vomiting 4 Active insulin glargine (Lantus SoloStar) 100 UNIT/ML injection Inject 10 Units under the skin 1 (one) time each day 4 Active Glucagon (Baqsimi One Pack) 3 MG/DOSE powder Administer 1 spray into affected nostril(s) every 15 (fifteen) minutes if needed (severe hypoglycemia) 4 Active furosemide (LASIX) 20 MG tablet Take 20 mg by mouth 1 (one) time each day in the morning 3 Active cloNIDine (CATAPRES) 0.1 MG tablet Take 1 tablet by mouth every morning and evening 5 Active calcitriol (ROCALTROL) 0.5 MCG capsule Take 0.5 mcg by mouth every morning 4 Active Active Problems Problem Noted Date Diagnosed [...] Encounters Date Type Department Care Team Description 06/22/2024 Orders Only [facility] [address] [address] Bharath Maria MD 06/15/2024 Orders Only [facility] [address] [address] Bharath Maria MD 06/08/2024 Telephone [facility] [address] [place] [address] [place] [address] aNomi Reza 04/15/2024 Orders Only [facility] [address] [address] Bharath Maria MD from Last 3 Months Immunizations Immunization Administration Dates Next Due Influenza, MDCK, PF, [...] 02/11/2019 12:00 PM EST Plan of Treatment Upcoming Encounters Date Type Department Care Team (Late st Contact Info) Description 06/28/2024 9:30 AM EDT Procedure visit [facility] [address] [place] [address] [place] [address] Health Maintenance Due Date Last Done Comments Diabetes: Ophthalmology Exam 03/26/2020 Diabetes: Pedal Pulse Checked 03/26/2020 Diabetes: Sensory Foot Exam 03/26/2020 Diabetes: Visual Foot Exam 03/26/2020 Hepatitis B Vaccine (2 of 3 - 19+ 3-dose series) 03/19/2023 02/19/2023, 01/19/2023 Diabetes: Hemoglobin A1C 09/07/202406/08/ 025, 04/15/2024, 12/11/2023, Additional history exists Pneumococcal Vaccine: 50+ Years Discontinued , 07/23/2016 Pneumococcal Vaccine: Peds ( 0 to 5 Years) and At-Risk Patients (6 to 49 Years) Completed 01/14/2023, 07/23/2016 Influenza Vaccine Completed 11/11/2023, , 01/06/2022, Additional history exists Procedures Procedure Name Priority Date/Time Associated Diagnosis Comments HEMATOLOGY Routine 06/22/2024 HEMATOLOGY Routine 06/15/2024 SPECIAL CHEMISTRY Routine 06/08/2024 HEMATOLOGY Routine 06/08/2024 IMMUNO CHEMISTRY Routine 06/08/2024 THYROIDS Routine 06/08/2024 CHEMISTRY Routine 06/08/2024 CHEMISTRY Routine 06/08/2024 HEMATOLOGY Routine 06/01/2024 HEMATOLOGY Routine 05/25/2024 HEMATOLOGY Routine 05/18/2024 THYROIDS Routine 05/11/2024 IMMUNO CHEMISTRY Routine 05/11/2024 CHEMISTRY Routine 05/11/2024 CHEMISTRY Routine 05/11/2024 HEMATOLOGY Routine 05/04/2024 HEMATOLOGY Routine 04/27/2024 HEMATOLOGY Routine 04/20/2024 HD KINETICS Routine 04/15/2024 POST CHEMISTRY Routine 04/15/2024 IMMUNO CHEMISTRY Routine 04/15/2024 THYROIDS Routine 04/15/2024 SPECIAL CHEMISTRY Routine 04/15/2024 CHEMISTRY Routine 04/15/2024 SPECIAL CHEMISTRY Routine 04/15/2024 CHEMISTRY Routine 04/15/2024 TRACE ELEMENTS Routine 04/15/2024 HEMATOLOGY Routine 04/15/2024 from Last 3 Months Results * (ABNORMAL) HEMATOLOGY (06/22/2024) Only the most recent of10 resultswithin the time period is included. Hemoglobin 12.4(L) 14.0 - 18.0 g/dL [facility] Hemoglobin x 3 37.2(L) 42.0 - 54.0 % [facility] 06/22/2024 06/23/2024 8:2 7 AM EDT Narrative [facility] - 06/23/2024 Unless otherwise specified, test(s) performed at: [facility], [address] [place] [address] TELLER VAULT: Neeraj Jones M.D. For any questions, please call customer service at FREQUENCY:OTHER Resulting Agency Comment Specimen source: Blood Bharath Maria MD LAB BLOOD ORDERABLES Final Re sult Performing Organization Address [place] de Phone Number [facility] See order comments or contact performing lab Unknown, [place] * THYROIDS (06/08/2024) Only the most recent of3 resultswithin the time period is included. Pathologist [facility] TSH 0.797 0.300 - 3.000 mIU/L [facility] Comment: The reference range of 0.300-3.000 mIU/L is recommended by the [place] Association of Clinical Endocrinologists (AACE). An ESRD population contains about 20% of individuals with TSH of up to 20 mIU/L and normal free T4 consistent with non-thyroidal illness. ESRD patients with true hypothyroidism develop persistent values above 20 mIU/L. 06/08/2024 06/09/2024 9:1 8 AM EDT Narrative Resulting Agency Comment Specimen source: Serum Bharath Maria MD LAB BLOOD ORDERABLES Final Re sult Performing Organization Address [place]/[facility] Co de Phone Number [facility] See order comments or contact performing lab Unknown, [place] * SPECIAL CHEMISTRY (06/08/2024) Only the most recent of3 resultswithin the time period is included. [facility] [address] Hemoglobin A1C 5.1 4.8 - 5.9 % [facility] 06/08/2024 06/09/2024 9:1 7 AM EDT Narrative Resulting Agency Comment Specimen source: Blood Bharath Maria MD LAB BLOOD BANK TEST ORDERABLE S Final Result Performing Organization Address [place]/[facility]/ZIP Co de Phone Number [facility] See order comments or contact performing lab Unknown, [place] * IMMUNO CHEMISTRY (06/08/2024) Only the most recent of3 resultswithin the time period is included. [facility] [address] Hep B Surface Ag Negative Negative [facility] 06/08/2024 06/09/2024 9:1 8 AM EDT Narrative Resulting Agency Comment Specimen source: Serum Bharath Maria MD LAB BLOOD ORDERABLES Final Re sult Performing Organization Address [place]/[facility] de Phone Number [facility] See order comments or contact performing lab Unknown, [place] * (ABNORMAL) [facility] (06/08/2024) Only the most recent of6 resultswithin the time period is included. [facility] [address] Creatinine 7.88(H) 0.60 - 1.30 mg/dL [facility] Sodium 140 136 - 145 mEq/L [facility] Potassium 4.4 3.5 - 5.1 mEq/L [facility] Bicarbonate (CO2) 21(L) 22 - 29 mEq/L [facility] Calcium 9.0 8.4 - 10.2 mg/dL [facility] Corrected Calcium 8.8 8.4 - 10.2 mg/dL [facility] Comment: Corrected Calcium is not equivalent to measured Ionized Calcium. Phosphorus 6.9(H) 2.6 - 4.5 mg/dL [facility] Calcium Phosphorus Product 62(H) 0 - 54 [facility] Calcium Phosporus Product, Cor 61(H) 0 - 54 [facility] Alkaline Phosphatase 74 40 - 129 U/L [facility] AST (SGOT) 11(L) 13 - 39 U/L [facility] ALT (SGPT) 11 7 - 52 U/L [facility] LDH 149 118 - 273 U/L [facility] Albumin 4.2 3.5 - 5.2 g/dL [facility] Ferritin 92 22 - 322 ng/mL [facility] Iron 65 45 - 160 mcg/dL [facility] UIBC 279 155 - 355 mcg/dL [facility] TIBC 344 185 - 515 mcg/dL [facility] Iron Saturation (TSat) 19(L) 20 - 55 % [facility] 06/08/2024 06/09/2024 9:1 8 AM EDT Narrative [facility] - 06/09/2024 Unless otherwise specified, test(s) performed at: [facility], [address] [place], [place] [id number] TELLER VAULT: Neeraj Jones M.D. For any questions, please call customer service at FREQUENCY:MONTHLY Resulting Agency Comment Specimen source: Serum Bharath Maria MD LAB BLOOD ORDERABLES Final Re sult Performing Organization Address City/[facility]/ZIP Co de Phone Number [facility] See order comments or contact performing lab Unknown, [place] * HD KINETICS (04/15/2024) % Urea Reduction 76 65 - 80 % [facility] 04/15/2024 04/19/2024 8:5 7 AM EST Narrative Resulting Agency Comment Specimen source: Plasma Bharath Maria MD LAB BLOOD ORDERABLES Final Re sult Performing Organization Address [facility]/ZIP Co de Phone Number [facility] See order comments or contact performing lab Unknown, [place] * (ABNORMAL) POST CHEMISTRY (04/15/2024) BUN Post Dialysis 20(H) 6 - 19 mg/dL [facility] 04/15/2024 04/19/2024 8:5 7 AM EST Narrative [facility] - 04/19/2024 Unless otherwise specified, test(s) performed at: [facility], [address] [place], [place] [id number] TELLER VAULT: Neeraj Jones M.D. For any questions, please call customer service at FREQUENCY:MONTHLY Resulting Agency Comment Specimen source: Plasma Bharath Maria MD LAB BLOOD ORDERABLES Final Re sult Performing Organization Address [place]/[facility] Co de Phone Number [facility] See order comments or contact performing lab Unknown, [place] * TRACE ELEMENTS (04/15/2024) Aluminum <5 0 - 10 mcg/L [facility] Comment: This test was developed and its performance characteristics determined by [facility]. It has not been cleared or approved by the FDA. The laboratory is regulated under CLIA as qualified to perform high complexity testing. This test is used for clinical purposes. It should not be regarded as investigational or for research. 04/15/2024 04/19/2024 8:1 7 AM EST Narrative [facility] - 04/19/2024 Unless otherwise specified, test(s) performed at: [facility], [address] [place] [id number] TELLER VAULT: Neeraj Jones M.D. For any questions, please call customer service at FREQUENCY:MONTHLY Resulting Agency Comment Specimen source: Serum Bharath Maria MD LAB BLOOD ORDERABLES Final Re sult Performing Organization Address [place] de Phone Number [facility] See order comments or contact performing lab Unknown, [place] from Last 3 Months [place] Care Teams Sales Administration Manager Relationship Specialty Start Date End Date Name, MD Hong [address] [place] [id number] PCP - General 03/05/20
--- OUTSIDE RECORDS SUMMARY | 2024-06-23 16:44 | XMS_ITS | Encounter Summary ---
Author Organization [facility] Address [address] [facility] [address] [place] [address] Care Team Providers Care Prior Authorization Technician Name Role Phone Name, Hong FOSS Primary Care Provider [phone] Magali Doty PharmD Unavailable [phone] Reason for Visit * Reason Comments Med Refill Encounter Details Date Type Department Care Team ([facility] st Contact Info) Description 01/11/2023 Refill [facility]INE [address] [place] [address] Name, MD Hong [address] [place] [address] Essential hypertension Social History Tobacco Use Types Packs/Day Years Used Date Smoking Tobacco: Former Cigarettes Alcohol Use Standard Drinks/Week Comments Not Currently 0 (1 standard drink = 0.6 oz pur e alcohol) Housing Stability Answer Date Recorded What is your housing situation today? I have padmini cameron 12/15/[address] you [...] t he electric, gas, oil or water [employer] threatened to shut off services in your [...] 2:00 PM EDT Office Visit [facility] [address] [place] [address] NameHong MD [address] [place] [address] documented as of this encounter Goals Goal Patient Goal Type Associated Problems Recent Progress Patient-Stated? Author Record your blood pressure once per day Blood Pressure No Puia, Magali, PharmD Blood Pressure < 140/90 Blood Pressure 148/93( 025 3:28 PM EDT) No Puia, Magali, PharmD documented as of this encounter Visit Diagnoses Diagnosis Essential hypertension Unspecified essential hypertension documented in this encounter Care Teams Prior Authorization Technician Relationship Specialty Start Date End Date Hong Rodríguez MD [address] [place] [id number] PCP - General Family Medicine 06/18/16 Puia, Magali, PharmD [address] [place] [address] Pharmacist Internal Medicine 08/15/22 documented as of this encounter
--- OUTSIDE RECORDS SUMMARY | 2024-06-23 16:44 | XMS_ITS | Encounter Summary ---
Author Organization [facility] Address [address] [facility] [address] [place] [address] Care Team Providers Care Cut Roll Machine Operator Name Role Phone Name, Hong FOSS Primary Care Provider [phone] Magali Doty PharmD Unavailable [phone] Reason for Visit * Reason Comments Med Refill Encounter Details Date Type Department Care Team ([facility] st Contact Info) Description 09/08/2023 Refill [facility] [address] [place], [place] [phone] Name, MD Hong [address] [place] [address] Social History Tobacco Use Types Packs/Day Years [...] EDT Office Visit [facility] [address] [place] [phone] NameHong MD [address] [place] [id number] documented as of this encounter Goals Goal Patient Goal Type Associated Problems Recent Progress Patient-Stated? Author Record your blood pressure once per day Blood Pressure No Puia, Magali, PharmD Blood Pressure < 140/90 Blood Pressure 148/93( 025 3:28 PM EDT) No PuiaSamMagali, PharmD documented as of this encounter Visit Diagnoses Not on filedocumented in this encounter Additional Health Concerns Assessment Noted Time PHQ-9 Depression Total Score: 0 04/14/19 24 1:09 PM EST documented as of this encounter Care Teams Cut Roll Machine Operator Relationship Specialty Start Date End Date Name, MD Hong [address] [place] [address] PCP - General Family Medicine 06/18/16 LoraineiaMagali, PharmD [address] [place] [address] Pharmacist Internal Medicine 08/15/22 documented as of this encounter
--- OUTSIDE RECORDS SUMMARY | 2024-06-23 16:44 | XMS_ITS | Clinical Summary ---
Author Organization [employer] Address [address] [facility] [address] [place] [address] Care Team Providers Care Aviation Technician Name Role Phone Name, Hong FOSS Primary Care Provider [phone] Magali Doty PharmD Unavailable [phone] Allergies Active Allergy Reactions Criticality Noted Date Comments Gluten Meal GI intolerance 10/15/2022 Losartan Rash,GI intolerance Low 06/18/2022 Other reaction(s): abdominal pain Penicillins Swelling 07/13/2023 Valsartan Rash,Diarrhea Low 06/18/2022 Other reaction(s): GI problems Medications hydrALAZINE (Apresoline) 100 MG tabletIndicatio ns:Essential hypertension Take 1 tablet (100 mg) by mouth 3 times daily. 90 tablet 11 023 Active Blood Pressure kit Use once a day 1 kit 023 Active Insulin Aspart 100 UNIT/ML solution INJECT BY INSULIN PUMP THREE TIMES DAILY DIRECTED. DO NOT EXCEED 70 UNITS DAILY. 023 Active Insulin Disposable Pump (Omnipod 5 G6 Pod, Gen 5,) misc CHANGE POD EVERY 72 HOURS DIRECTED 023 Active metoprolol succinate XL (Toprol-XL) 100 MG 24 hr tabletIndicatio ns:Essential hypertension TAKE 1 TABLET BY MOUTH EVERY MORNING 90 tablet 024 Active omeprazole (PriLOSEC) [address] capsuleIndicati ons:Hypertensio n, unspecified type TAKE 1 CAPSULE BY MOUTH EVERY MORNING 90 capsule 3 024 Active tamsulosin (Flomax) 0.4 MG 24 hr capsule TAKE 1 CAPSULE BY MOUTH EVERY EVENING 90 capsule 024 Active calcitriol (Rocaltrol) 0.5 MCG capsule Take 0.5 mcg by mouth in the morning. Active Baqsimi One Pack 3 MG/DOSE nasal powder USE 1 SPRAY (3MG) IN ONE NOSTRIL FOR A PATIENT WITH SEVERE HYPOGLYCEMIA WHO IS NOT RESPONSIVE AND UNABLE SELF-TREAT WITH GLUCOSE. AFTERWARDS TURN ON SIDE. MAY REPEAT IN 15MINUTES IF PATIENT DOES NOT RESPOND. Active NIFEdipine XL (Procardia XL) 60 MG 24 hr tablet Take 1 tablet by mouth in the morning. Active oxyCODONE (Roxicodone) 5 MG immediate release tablet Take 1 tablet by mouth if needed in the morning and at bedtime for severe pain. Active gabapentin (Neurontin) 100 MG capsule Take 1 capsule by mouth at bedtime. Active Acetone, Urine, Test (Ketone Test) stripIndication s:Diabetic ketoacidosis without coma associated with type 1 diabetes mellitus (CMS/HCC) Insert 1 each into the urethra if needed each day (abdominal pain). USE DIRECTED WHEN BLOOD SUGAR IS OVER 250 OR FOR NAUSEA AND VOMITING THREE TIMES DAILY 100 strip 3 024 Active nortriptyline (Pamelor) 50 MG capsule TAKE 1 CAPSULE BY MOUTH AT BEDTIME 90 capsule 1 024 Active atorvastatin (Lipitor) 80 MG tabletIndicatio ns:Hypertension , unspecified type TAKE 1 TABLET BY MOUTH EVERY MORNING 90 tablet 1 024 Active ezetimibe (Zetia) 10 MG tabletIndicatio ns: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 (CMS/HCC),Type 1 diabetes mellitus with other specified complication (CMS/HCC) TAKE 1 TABLET BY MOUTH EVERY MORNING 90 tablet 1 024 Active cloNIDine (Catapres) 0.1 MG tablet TAKE 1 TABLET BY MOUTH TWICE DAILY IN THE MORNING AND IN THE EVENING 60 tablet 1 Active sevelamer carbonate (Renvela) 800 MG tablet TAKE 1 TABLET BY MOUTH THREE TIMES DAILY IN THE MORNING, AT NOON, AND IN THE EVENING WITH MEALS 90 tablet 1 025 Active Viagra 50 MG tabletIndicatio ns:Type 1 diabetes mellitus with other specified complication (CMS/HCC) TAKE 1 TABLET 1 HOUR BEFORE SEXUAL RELATIONS ONCE DAILY NEEDED. 10 tablet 2 04/28/2 025 Active hydrOXYzine pamoate (Vistaril) 25 MG capsule Take 1 capsule (25 mg) by mouth if needed at bedtime for anxiety for up to 10 days. 30 capsule 025 2024 Active lidocaine (Xylocaine) 5 % ointment Apply topically if needed for mild pain. 30 g 1 025 2025 Active Viagra 50 MG tabletIndicatio ns:Type 1 diabetes mellitus with other specified complication (CMS/[facility]) TAKE 1 TABLET 1 HOUR BEFORE SEXUAL RELATIONS ONCE DAILY NEEDED. 10 tablet 2 024 2024 Discontinued(R eorder (will not trigger notification to Pharmacy)) cloNIDine (Catapres) 0.1 MG tablet TAKE 1 TABLET BY MOUTH TWICE DAILY IN THE MORNING AND IN THE EVENING 60 tablet 1 025 2024 Discontinued sevelamer carbonate (Renvela) 800 MG tablet TAKE 1 TABLET BY MOUTH THREE TIMES DAILY IN THE MORNING, AT NOON, AND IN THE EVENING WITH MEALS 90 tablet 1 025 2024 Discontinued Active Problems Patient Care Coordination No te Formatting of this note migh t be different from the original. C3/CM Mey Weeks RN Problem Noted Date Diagnosed Date ESRD on hemodialysis 12/11/2023 DKA (diabetic ketoacidosis) 12/11/2023 Assessment & Plan (12/17/2023 10:31 AM EDT): -Discussed sick management plan for when he has abdominal pain/vomiting/fever -sent rx for urine ketone test strips for pt to use q 4-6 hours when not feeling well or if feeling any of the following sx: SOB, confusion, n/v/d, abdominal pain, fatigue, dry mouth. -Plan to continue f/u with [facility] endocrinology, continue with CGM and insulin [...] after meals -continue to be followed by [facility] endocrinology, plan to get new CGM monitor, pt has one currently but is getting most updated one -continue with insulin pump, also managed by [facility] endocrinology -I will f/u with [facility] endocrinology to obtain recommendations for gastroparesis tx. Chronic low back pain 06/19/2016 Resolved Problems Problem Noted Date Diagnosed Date Resolved Date Stage 3 chronic kidney disease 03/15/2022 06/18/2022 Encounters Date Type Department Care Team Description 06/23/2024 Orders Only GENERIC EXTERNAL DATA DEPARTMENT Provider, Generic External Data 06/20/2024 3:15 PM EDT Office Visit [address] [address] Hong Rodríguez MD Type 1 diabetes mellitus with other specified complication (CMS/HCC) (Primary Dx); ESRD on hemodialysis (CMS/HCC); Insomnia due to medical condition 06/20/2024 Travel 06/17/[address] [address] Hong Rodríguez MD CHART PREP 06/01/2024 Refill [facility] [address] [place], [place] [phone] Hong Rodríguez MD 05/23/2024 Patient Outreach [address] [address] Hong Rodríguez MD [employer] Line Server Care Coordination; Care Coordination (Outreach) 05/17/[address] [address] [place] july recalls 05/11/2024 Telephone [facility] [address], [place] [phone] Hong Rodríguez MD novolog 05/06/2024 Population Health Risk Score [facility] () Department [address] [place] [phone] Provider, Population Health Generic 04/29/2024 Patient Outreach [facility] [address] [place] [address] Hong Rodríguez MD Care Coordination (Outreach) 04/20/2024 Patient Outreach [facility] [address] [place], [place] [phone] Hong Rodríguez MD Care Coordination (Outreach) 04/15/2024 Patient Outreach [address] [address] Hong Rodríguez MD Transition Of Care (Tcm) (HDF- Unscheduled LVM #2) 04/14/2024 Patient Outreach [address] [address] Hong Rodríguez MD Transition Of Care (Tcm) (HDF- Unscheduled LVM ) 04/13/2024 Patient Outreach [facility] [address] [place] [address] Hong Rodríguez MD Care Coordination (Outreach) 04/13/2024 Refill [facility] [address] [place] [address] Hong Rodríguez MD 04/07/2024 Patient Outreach [facility] [address] [place] [address] Hong Rodríguez MD Care Coordination (Outreach) 04/07/2024 Patient Outreach [facility] [address] [place] [address] Hong Rodríguez MD 04/06/2024 Orders Only GENERIC EXTERNAL DATA DEPARTMENT Provider, Generic External Data 04/04/2024 Orders Only [facility] External Provider, [facility] from Last 3 Months Immunizations Name Administration [...] Mass Index 24.81 06/20/2024 3:28 PM EDT Plan of Treatment Upcoming Encounters Date Type Department Care Team (Late st Contact Info) Description 08/23/2024 2:00 PM EDT Office [facility] [address] [facility] [place] [address] Name, MD Hong [address] [place] [address] Health Maintenance Due Date Last Done Comments HIV Screening 1984 Eye Exam 1994 Family Planning (PISQ) 09/28/1999 Hepatitis C Screening 2002 COVID-19 Vaccine ( season) 2023 01/20/2022, 02/06/2021, 06/13/2020, Additional history exists Depression Screening 04/14/2024 04/14/2023, 04/14/19 SDOH Screening 04/14/2024 04/14/2023 Diabetes: Foot Exam 07/12/2024 07/13/2023, 07/13/2023, 07/13/2023, Additional history exists Alcohol/Substance Use Screening 12/10/2024 12/11/2023 Diabetes: Hemoglobin A1C 12/20/2024 025, 12/11/2023, 11/11/2023, Additional history exists Lipid Panel 01/07/2025 01/08/2024, 09/0 06/2022, 07/15/2021, Additional history exists Tobacco Screening 06/20/2025 06/20/2024 DTaP/Tdap/Td Vaccines (2 - Td or Tdap) [...] 3:28 PM EDT) No Magali Doty PharmD Procedures Procedure Name Priority Date/Time Associated Diagnosis Comments GLUCOSE, WHOLE BLOOD Routine 06/23/2024 2:58 PM EDT POCT GLYCATED HEMOGLOBIN, TOTAL Routine 06/20/2024 3:29 PM EDT Type 1 diabetes mellitus with other specified complication (CMS/HCC) POCT GLUCOSE Routine 06/20/2024 3:29 PM EDT Type 1 diabetes mellitus with other specified complication (CMS/HCC) VENOUS BLOOD GAS Routine 04/06/2024 10:4 1 [...] DUPLEX RIGHT Routine 04/04/2024 3:24 AM EST LIPID PANEL, STANDARD Routine 01/08/2024 8:02 AM EST Type 1 diabetes mellitus with other specified complication (CMS/HCC) from Last 3 Months or Most Recently Relevant to Health Maintenance Results * (ABNORMAL) Glucose, Whole Blood (06/23/2024 2:58 PM EDT) Glucose, Whole Blood 232(H) 60 - 115 mg/dL [facility] Comment:METER #: [id number] 5Testing performed in the Endocrinology Department [address] , [address], [place]. 06/23/2024 2:58 PM EDT 06/23/2024 3:02 PM EDT us Generic External Data Provider LAB BLOOD ORDERAB LES Final Result [facility] [address] [place] [address] [phone] * POCT HGB A1C (06/20/2024 3:29 PM EDT) [facility] Hemoglobin A1C 5.2 4.0 - 6.0 % QC Media Lot # [id number] Lot# Expiration Date 110,426 Blood 06/20/2024 3:29 PM EDT Hong Name POINT OF CARE TEST ENTER/EDIT OR DERABLES Final Result * (ABNORMAL) POCT Glucose (06/20/2024 3:29 PM EDT) [facility] Glucose Blood, POC 301(A) 60 - 200 mg/dL QC Media Lot # [id number] Lot# Expiration Date 82,625 Blood Capillary blood specimen / Unknown 06/20/2024 3:29 PM EDT Hong Name POINT OF CARE TEST ENTER/EDIT OR DERABLES Final Result * (ABNORMAL) VENOUS BLOOD GAS (04/06/2024 10:41 AM EST) [facility] VBG pH 7.41 7.32 - 7.43 [facility] Comment:METER #: [id number] additional_comment: Cb patelha VBG PCO2 28 mmHg [facility] Comment:METER #: [id number] additional_comment: Cb patelha VBG PO2 73 mmHg [facility] Comment:METER #: [id number] additional_comment: Cb patelha VBG Base Excess -5.2 mmol/L [facility] Comment:METER #: [id number] additional_comment: Cb patelha VBG HCO3 18(L) 22 - 26 mmol/L [facility] Comment:METER #: [id number] additional_comment: Cb patelha O2 Sat, Bay 96.0 % [facility] Comment:METER #: [id number] additional_comment: Cb karol 04/06/2024 10:4 1 AM EST 04/06/2024 10:46 AM EST us Generic External Data Provider LAB BLOOD ORDERAB LES Final Result Performing Organization Address [facility]/ZIP Co de Phone Number [facility] [address] [place] [phone] * (ABNORMAL) B Type Natriuretic Peptide (BNP) (04/06/2024 10:28 AM EST) B Type Natriuretic Peptide 1,291(H) <100 pg/mL [facility] Comment:For those patients w ho are being treated with Natrecor(nesiritide, recombinant BNP), BNP testing should beperformed at least two hours post treatment in order toensure that only endogenous levels of BNP are detected. 04/06/2024 10:2 8 AM EST 04/06/2024 10:32 AM EST us Generic External Data Provider LAB BLOOD ORDERAB LES Final Result Performing Organization Address [facility] de Phone Number [facility] [address] [place] [phone] * Ammonia, Plasma (04/06/2024 10:28 AM EST) Ammonia (P) 26 13 - 55 umol/L [facility] 04/06/2024 10:2 8 AM EST 04/06/2024 10:32 AM EST us Generic External Data Provider LAB BLOOD ORDERAB LES Final Result Performing Organization Address [facility] Co de Phone Number [facility] [address] [place] [phone] * XR Chest 1 View (04/06/2024 10:19 AM EST) Only the most recent of2 resultswithin the time period is included. Anatomical Region Laterality Modality Chest Radiographic Sindy ging 04/06/2024 10:1 9 AM EST Narrative 04/06/2024 10:53 AM EST ? [facility] ?[address] ?[place] [address] ?XRay Report ? Signed ? Patient: Hernandez,Veto ?MR#: [id number] ? : 1985 ?Acct:[id number] ? Age/Sex: 38 / M ?ADM Date: 04/06/24 ? Loc: HO.ED ? Attending Dr: ? Ordering Physician: Jada Ramirez NP ?? Date of Service: 04/06/24 ?? Procedure(s): XR chest 1V ?? Accession Number(s): [id number] ? cc: Marcos,Hong FOSS; Jada Ramirez NP ? EXAMINATION: ??XR [...] DD/ 1019 ? TD/TT: 04/06/24 1040 ? Clinical Operations Leader: ? Procedure Note Mariel Crenshaw - 04/06/[address] [place] [address] XRay Report Signed Patient: Veto HernandezMR#: [id number] : 1985Acct:[id number] Age/Sex: 38 / MADM Date: 04/06/24 Loc: HO.ED Attending Dr: Ordering Physician: Jada Ramirez NP Date of Service: 04/06/24 Procedure(s): XR chest 1V Accession Number(s): [id number] cc: Name,Hong FOSS; Jada Ramirez NP EXAMINATION: [...] Bob Bob MD 04/06/2024 10:50 AM EST Dictated By: Bob Bob MD Signed By: <Electronically signed by Bob Bob MD in OV> 04/06/24 1050 DD/ 1019 TD/TT: 04/06/24 1040 Clinical Operations Leader: us [facility] External Provider IMG XR PROCEDURES Final Result * (ABNORMAL) Glucose, Whole Blood (04/06/2024 10:09 AM EST) Only the most recent of3 resultswithin the time period is included. Glucose, Whole Blood 118(H) 60 - 115 mg/dL [facility] Comment:METER #: [id number] 04/06/2024 10:0 9 AM EST 04/06/2024 10:14 AM EST Generic External Data Provider LAB BLOOD ORDERAB LES Final Result [facility] [address] [place] [address] [phone] * Drug Monitoring, Panel 1, Screen, Urine (04/06/2024 9:29 AM EST) Opiate Screen Urine Not Detected Not Detect [facility] Comment:Opiate cut-off is 30 0 ng/mL.Positive results are unconfirmed and should not be used fornon-medical purposes. Barbiturates, Urine Not Detected Not Detect [facility] Comment:Barbiturate cut-off is 200 ng/mL.Positive results are unconfirmed and should not be used fornon-medical purposes. Phencyclidine Screen Urine Not Detected Not Detect [facility] Comment:Phencyclidine cut-of f is 25 ng/mL.Positive results are unconfirmed and should not be used fornon-medical purposes. Amphetamine Screen Urine Not Detected Not Detect [facility] Comment:Amphetamine cut-off is 1000 ng/mL.Positive results are unconfirmed and should not be used fornon-medical purposes. Benzodiazepines Screen Urine Not Detected Not Detect [facility] Comment:Benzodiazepine cut-o ff is 200 ng/mL.Positive results are unconfirmed and should not be used fornon-medical purposes. Cocaine Screen Urine Not Detected Not Detect [facility] Comment:Cocaine cut-off is 3 00 ng/mL.Positive results are unconfirmed and should not be used fornon-medical purposes. Cannabinoid Screen Urine Not Detected Not Detect [facility] Comment:Cannabinoid cut-off is 50 ng/mL.Positive results are unconfirmed and should not be used fornon-medical purposes. Methadone Screen, Urine Not Detected Not Detect ng/mL [facility] Comment:Methadone cut-off is 300 ng/mL.Positive results are unconfirmed and should not be used fornon-medical purposes. FENTANYL URINE Not Detected Not Detect [facility] Comment:Fentanyl cut-off is 1 ng/mL.Positive results are unconfirmed and should not be used fornon-medical purposes. Oxycodone Urine Screen Not Detected Not Detect ng/mL [facility] Comment:Oxycodone cut-off is 100 ng/mL.Positive results are unconfirmed and should not be used fornon-medical purposes. Buprenorphine Screen Not Detected Not Detect ng/mL [facility] Comment:Buprenorphine cut-of f is 5 ng/mL.Positive results are unconfirmed and should not be used fornon-medical purposes. 04/06/2024 9:29 AM EST 04/06/2024 9:32 AM EST us Generic External Data Provider LAB URINE ORDERAB LES Final Result [facility] [address] [place] [address] [phone] * CT Head w/o Contrast (04/06/2024 9:19 AM EST) Anatomical Region Laterality Modality Head, Neck Computed Tomogra phy 04/06/2024 9:19 AM EST Narrative 04/06/2024 10:07 AM EST ? [facility] ?[address] ?[place] [address] ? CT Scan Report ? Signed ? Patient: Veto Hernandez ?MR#: [id number] ? : 1985 ?Acct:[id number] ? Age/Sex: 38 / M ?ADM Date: 04/06/24 ? Loc: HO.ED ? Attending Dr: ? Ordering Physician: Jada Ramirez NP ?? Date of Service: 04/06/24 ?? Procedure(s): CT head/brain wo IV con ?? Accession Number(s): [id number] ? cc: Name,Hong FOSS; Jada Ramirez NP ? Report Number: ?? [id number]: Total DLP = 1025.00 mGy-cm ?? EXAMINATION: [...] DD/ 0919 ? TD/TT: 04/06/24 0956 ? Clinical Operations Leader: ? Procedure Note Den, Image - 04/06/[address] [place] [address] [address] Scan Report Signed Patient: Veto HernandezMR#: [id number] : 1985Acct:[id number] Age/Sex: 38 / MADM Date: 04/06/24 Loc: HO.ED Attending Dr: Ordering Physician: Jada Ramirez NP Date of Service: 04/06/24 Procedure(s): CT head/brain wo IV con Accession Number(s): [id number] cc: Hong Rodríguez MD; Jada Ramirez NP Report Number: [id number]: Total DLP = 1025.00 mGy-cm EXAMINATION: CT [...] Bob MD in OV> 04/06/24 1003 DD/ 0919 TD/TT: 04/06/24 0956 Clinical Operations Leader: [facility] External Provider IMG CT PROCEDURES Final Result * Lactic Acid (04/06/2024 7:34 AM EST) Lactic Acid 0.8 0.5 - 2.0 mmol/L [facility] 04/06/2024 7:34 AM EST 04/06/2024 7:38 AM EST Generic External Data Provider LAB BLOOD ORDERAB LES Final Result Performing Organization Address City/[facility] Co de Phone Number [facility] [address] [place] [phone] * SARS-CoV-2 RNA, Influenza A/B, and RSV RNA, Ql NAAT (04/06/2024 4:49 AM EST) Pathologist [facility] Influenza A PCR NEGATIVE Negative [facility] Influenza B PCR NEGATIVE Negative [facility] Resp Syncy Virus RNA Qual PCR NEGATIVE Negative [facility] SARS COV2 PCR NEGATIVE Negative [facility] Comment:All test results mus t be [...] use by authorized laboratories.Testing performed on the [employer] GeneXpert utilizingreal-time RT-PCR.All SARS CoV2 and positive influenza A/B results arereported to [facility]. 04/06/2024 4:49 AM EST 04/06/2024 4:53 AM EST Generic External Data Provider LAB MICROBIOLOGY - GENERAL ORDERABLES Final Result Performing Organization Address [facility] de Phone Number [facility] [address] [place] [phone] * (ABNORMAL) CBC auto differential (04/06/2024 4:49 AM EST) White Blood Count 10.6 4.8 - 10.8 X10*3/uL [facility] Red Blood Count 2.75(L) 4.60 - 5.80 X10*6/uL [facility] Hemoglobin 8.2(L) 14.0 - 18.0 g/dl [facility] Hematocrit 24.4(L) 42.0 - 52.0 % [facility] Mean Corpuscular Volume 88.7 80.0 - 98.0 fL [facility] Mean Corpuscular Hemoglobin 29.8 27.0 - 33.0 pg [facility] Mean Corpuscular HGB Conc 33.6 31.0 - 36.0 g/dl [facility] Red Cell Distribution Width 13.1 11.0 - 16.0 % [facility] Platelet Count 218 160 - 400 X10*3/uL [facility] Mean Platelet Volume 8.9(L) 9.4 - 12.4 fL [facility] Neutrophils Percent Auto 77.6(H) 45 - 73 % [facility] Imm Gran Pct Auto 0.5(H) 0.0 - 0.4 % [facility] Lymphocytes Percent Auto 10.6(L) 20 - 40 % [facility] Monocytes Percent Auto 10.2 2 - 11 % [facility] Eosinophils Percent Auto 0.9 0 - 4 % [facility] Basophils Percent Auto 0.2 0 - 2 % [facility] NRBC Pct Auto 0.0 0.0 - 0.2 /100WBC [facility] Neutrophils Absolute Auto 8.2 2.0 - 8.3 x10*3/uL [facility] Imm Gran Abs Auto 0.05(H) 0.00 - 0.03 X10*3/uL [facility] Lymphocytes Absolute Auto 1.1(L) 1.2 - 4.9 X10*3/uL [facility] Monocytes Absolute Auto 1.1 0.1 - 1.2 X10*3/uL [facility] Eosinophils Absolute Auto 0.1 0.0 - 0.4 X10*3/uL [facility] Basophils Absolute Auto 0.0 0.0 - 0.2 X10*3/uL [facility] NRBC Abs Auto 0.000 0.0 - 0.012 X10*3/uL [facility] 04/06/2024 4:49 AM EST 04/06/2024 4:53 AM EST us Generic External Data Provider LAB BLOOD ORDERAB LES Final Result [facility] [address], [place] [phone] * (ABNORMAL) Comprehensive Metabolic Panel (04/06/2024 4:49 AM EST) Sodium 140 135 - 145 mmol/L [facility] Potassium 5.1 3.3 - 5.1 mmol/L [facility] Chloride 109(H) 96 - 108 mmol/L [facility] Carbon Dioxide 16(L) 22 - 29 mmol/L [facility] Anion Gap 20 12 - 20 [facility] Urea Nitrogen (BUN) 99(H) 9 - 16 mg/dL [facility] Creatinine, Serum 8.41(HH) 0.5 - 1.4 mg/dL [facility] Comment:Critical value for t est(s):CREATININE Results called to kelsey back by:SHON Person calling:MANINDERate:04/06/24 Time:0516 Creatinine Clr Calc Pharmacy 11.4 [facility] Comment:eGFR (calculated fro m the MDRD study equation) and eCrCl(calculated from the Cockcroft-Gault equation) are based ondifferent parameters and may not yield comparable results.If eCrCl result is absurd, please check patient'sheight/weight. Estimated Glomerular Filt Rate 7 [facility] Comment:Chronic Kidney Disea se: Estimated GFR < 60 mL/min/1.47t6Efurql Kidney Disease: Estimated GFR < 15 mL/min/1.73m2 Glucose 80 60 - 115 mg/dL [facility] Calcium 7.9(L) 8.4 - 10.2 mg/dL [facility] Bilirubin, Total 0.3 0.0 - 1.0 mg/dL [facility] Aspartate Amino Transferase 15 5 - 37 U/L [facility] Alanine Aminotransferase 9 0 - 40 U/L [facility] Total Protein 7.3 6.5 - 8.0 g/dL [facility] Albumin Level 3.6 3.5 - 5.0 g/dL [facility] Alkaline Phosphatase 85 39 - 117 U/L [facility] 04/06/2024 4:49 AM EST 04/06/2024 4:53 AM EST us Generic External Data Provider LAB BLOOD ORDERAB LES Final Result [facility] [address] [place] [address] [phone] * XR Shoulder 2+ Views Right (04/04/2024 3:25 AM EST) Anatomical Region Laterality Modality Upper Extremities, Shoulder Right Radi ographic Imaging 04/04/2024 3:25 AM EST Narrative 04/04/2024 3:27 AM EST ? [facility] ?[address] ?[place] [address] ?XRay Report ? Signed ? Patient: Hernandez,Veto ?MR#: [id number] ? : 1985 ?Acct:[id number] ? Age/Sex: 38 / M ?ADM Date: 04/04/24 ? Loc: HO.ED ? Attending Dr: ? Ordering Physician: Lillie Jo ?? Date of Service: 04/04/24 ?? Procedure(s): XR shoulder RT min 2V ?? Accession Number(s): [id number] ? cc: Lillie Jo; [facility] ? CLINICAL HISTORY: pain ? 3 [...] José Luis Damon MD in OV> ? 04/04/246 ? DD/ ? TD/TT: 04/04/245 ? Clinical Operations Leader: ? Procedure Note Donotuseinterpreter, Image - 04/04/[address] [address] XRay Report Signed Patient: Veto HernandezMR#: [id number] : 1985Acct:[id number] Age/Sex: 38 / MADM Date: 04/04/24 Loc: HO.ED Attending Dr: Ordering Physician: Lillie Jo Date of Service: 04/04/24 Procedure(s): XR shoulder RT min 2V Accession Number(s): [id number] cc: Lillie Jo; [facility] CLINICAL HISTORY: pain 3 view right [...] in OV> 04/04/24325 DD/ 4 TD/TT: 04/04/24324 Clinical Operations Leader: us [facility] External Provider IMG XR PROCEDURES Edited Result - Final * Vascular US upper extremity venous duplex right (04/04/2024 3:24 AM EST) 04/04/2024 3:24 AM EST Narrative [facility] - 04/04/2024 3:25 AM EST ? [facility] ?[address] ?[place] [address] ? Ultrasound Report ? Signed ? Patient: Hernandez,Veto ?MR#: [id number] ? : 1985 ?Acct:[id number] ? Age/Sex: 38 / M ?ADM Date: 02/10/25 ? Loc: HO.ED ? Attending Dr: ? Ordering Physician: Lillie Jo ?? Date of Service: 04/04/24 ?? Procedure(s): US venous duplex UE RT ?? Accession Number(s): [id number] ? cc: Lillie Jo; [facility] ? CLINICAL HISTORY: pain ? Venous [...] 04/04/24 0325 ? DD/ 0324 ? TD/TT: 04/04/244 ? Clinical Operations Leader: ? Procedure Note Den, Mariel - 04/04/2024 [place] [address] Ultrasound Report Signed Patient: Veto HernandezMR#: [id number] : 1985Acct:[id number] Age/Sex: 38 / MADM Date: 04/04/24 Loc: HO.ED Attending Dr: Ordering Physician: Lillie Jo Date of Service: 04/04/24 Procedure(s): US venous duplex UE RT Accession Number(s): [id number] cc: Lillie Jo; [facility] CLINICAL HISTORY: pain Venous duplex ultrasound [...] in OV> 04/04/24324 DD/ 3 TD/TT: 04/04/24323 Clinical Operations Leader: [facility] External Provider CV VASC ULAR PROCEDURES Edited Result - Final Performing Organization Address [facility]/ZIP Co de Phone Number [facility] [address] [place] [address] * (ABNORMAL) Lipid Panel, Standard (01/08/2024 8:02 AM EST) Triglycerides 127 <150 mg/dL [facility] Comment:Desirable Triglyceri de: less than 150 mg/dLBorderline High Triglyceride 150-199 mg/dLHigh Triglyceride: 200-499 mg/dLVery High Triglyceride: greater than or equal to 5OO mg/dL Cholesterol 136 <200 mg/dL [facility] Comment:Desirable Cholestero l: less than 200 mg/dLBorderline High Cholesterol: 200-239 mg/dLHigh Cholesterol: greater than 239 mg/dL LDL Cholesterol Calculated 71 <100 mg/dL [facility] Comment:Desirable LDL: less than 100 mg/dLNear Optimal/Above Optimal LDL: 110- 129 mg/dLBorderline High LDL: 130-159 mg/dLHigh LDL: 160-189 mg/dLVery High LDL: greater than or equal to 190 mg/dL HDL Cholesterol 40(L) >40 mg/dL [facility] Comment:Desirable HDL: great er than 40 mg/dL Note: This HDL assay may give artificially low results in patients with liver disease. Blood Venous blood specimen / Unknown 01/08/2024 8:02 AM EST 01/08/2024 9:14 AM EST Tammy Yates MD LAB BLOOD ORDERABLES Final Res ult [facility] [address] [place] [address] [phone] from Last 3 Months or Most Recently Relevant to Health Maintenance Insurance [facility] C3 Care Teams Aviation Technician Relationship Specialty Start Date End Date Name, MD Hong [address] [place] [address] PCP - General Family Medicine 06/18/16 Magali Doty PharmD [address] [place] [address] Pharmacist Internal Medicine 08/15/22
--- OUTSIDE RECORDS SUMMARY | 2024-06-23 16:44 | XMS_ITS | Encounter Summary ---
Author Organization [facility] Address [address] [place] [address] Care Team Providers Care Machine Pecan Picker Name Role Phone Name, Hong FOSS Primary Care Provider [phone] Magali Doty PharmD Unavailable [phone] Reason for Visit * Reason Comments Med Refill Encounter Details Date Type Department Care Team (Late st Contact Info) Description 01/27/2022 Refill [facility] [address] [place] [phone] NameHong MD [address] [place] [phone] Social History Tobacco Use Types Packs/Day Years [...] Description 08/23/2024 2:00 PM EDT Office Visit [facility] [address] [place] [phone] Hong Rodríguez MD [address] [place] [address] [phone] documented as of this encounter Visit Diagnoses Not on filedocumented in this encounter Care Teams Machine Pecan Picker Relationship Specialty Start Date End Date NameHong MD [address] [place] [address] [phone] PCP - General Family Medicine 06/18/16 Magali Doty, Vasyl [address] [place] [phone] Pharmacist Internal Medicine 08/15/22 documented as of this encounter
== END 2024-06-23 15:27 | disposition home or self-care (01) ==
LOC: HO.ENCR 14:46
PROVIDERS: Visit Provider Nurse Practitioner Adult Health
DX: E10.22 Type 1 diabetes mellitus with diabetic chronic kidney disease (principal); N18.5 Chronic kidney disease, stage 5

== ENCOUNTER → 2024-06-23 14:46 | Outpatient (BNVA) | payer MEDICAID, SELFPAY | PROVIDERS: Visit Provider Nurse Practitioner Adult Health | DX: Z46.81 Encounter for fitting and adjustment of insulin pump (principal); E10.65 Type 1 diabetes mellitus with hyperglycemia; Z79.4 Long term (current) use of insulin | CPT/HCPCS: 82947; 83036; 99212 ==

== ENCOUNTER → 2024-06-23 | Outpatient (BNV) | payer MEDICAID, SELFPAY | PROVIDERS: Visit Provider Internal Medicine Nephrology | DX: N18.6 End stage renal disease (principal) | CPT/HCPCS: 90961 ==

== ENCOUNTER → 2024-08-23 23:59 | Outpatient (BNV) | payer MEDICAID, SELFPAY | PROVIDERS: Visit Provider Internal Medicine Nephrology | DX: N18.6 End stage renal disease (principal) | CPT/HCPCS: 90961 ==

== ENCOUNTER → 2024-10-24 23:59 | Outpatient (BNV) | payer MEDICAID, SELFPAY | PROVIDERS: Visit Provider Internal Medicine Nephrology | DX: N18.6 End stage renal disease (principal) | CPT/HCPCS: 90961 ==

== ENCOUNTER 2024-11-22 14:56 | Outpatient (AMB) | payer MEDICAID, SELFPAY ==
--- NOTE | 2024-11-22 15:00 | MHC.OFFVIS ---
Vital Signs 11/22/24 15:04 Height 5 ft 8 in Weight 173 lb 1.006 oz BMI 26.3 BP 138/82 Blood Pressure Location Rt brachial Position Sitting Pulse 84 Pulse Source Pulse Oximeter Pulse Oximetry (%) 98 Oxygen Delivery Method Room Air Intake Visit Reasons: T1DM Intake Note: Patient present today to follow up on Type 1 Diabetes Mellitus. Patient is receiving Dexcom G7 supplies through: [facility] Patient is receiving Omnipod through: [facility] Last Diabetic Eye exam: Has an appointment on November 29 2024 Last Podiatry Visit: Does not see a News Content Specialist Random Glucose: 196 mg/dl Hgb A1C: 6.8% 11/22/2024 Electrician Front Required: Yes Electrician Front Language: [employer]: Electrician Front Present Information Interpreted: non-clinical & clinical Accompanied by: Daughter Allergies losartan Allergy (Verified 11/22/24 15:05) Gastrointestinal Upset valsartan Adverse Reaction (Unknown, Verified 11/22/24 15:05) GI problems HPI Comments Details: Patient is a 39-year-old male with DM type 1 diagnosed at the age of 7 here for f/u management of diabetes. He is on an Omnipod 5 with a G7 sensor.. The patient last saw Demetra Torres NP 06/23/24 Has retinopathy: Legally blind in both eyes. Last eye examination: earlier this year. Has neuropathy on low dose gabapentin. Symptoms include, numbness, pain. Denies cramping in the lower extremity Has nephropathy: Followed by Dr. Bejarano He is being evaluated by [facility] transplant service for preemptive transplantation. He had a temporary HD access placed during a recent hospitalization which was discontinued. Kidney function remained stable He has on the active list. Has AVF in left forearm- approx 09/2023. Not mature yet Has HLD: On high dose atorvastatin and Zetia. Backup insulin pump plan 15-20 units of Lantus once daily in 5-6 units of Humalog t.i.d. with the meals. He has seen Dr. Prateek CAMACHO at [facility] and was diagnosed with gastroparesis. He has been to the ER several times with left upper quadrant abdominal pain and treated in the ER with Dilaudid. He currently has no pain and we will schedule an appointment with Dr. Chandra for evaluation. Dexcom average glucose: 170 14 day continuous glucose monitor report reviewed Glucose Managment indicator 7.4 % Days with CGM data 95 % TIme in ranges: 8 % very high (above 250) 27 % high ?(181-250) 63 % in range ?(70-180] 1 % low (69-55) 0 % ?very low (below 54) Basal rate(s) (units/hour) : ?12 AM to 7 AM 1.25 units/hr? 7 AM to 12 AM 1.0 units /hr Bolus setting Insulin Carbohydrate Ratio (s) 12 AM to 12 AM? 1 unit:10.8 gm? Correction Factor / Sensitivity Factor 10 PM to 12 AM? 1 unit / 70 mg/dL 12 AM to 7 AM??1 unit / 70 mg/dL 7 AM to 10PM 1 unit / 65 mg/dL Active Insulin Time:? 3 hours Target(s): 12 AM to 12 AM 120 mg/dL TDD =49.9 57% basal and 43 % bolus PFSH Medical History Hypertensive urgency CKD (chronic kidney disease) stage 4, GFR 15-29 ml/min Hypertensive nephrosclerosis Diabetic gastroparesis Pancreatitis Vitamin D deficiency Hypocalcemia Background diabetic retinopathy associated with type 2 diabetes mellitus Diabetes type 1, uncontrolled Hemangioma of liver Legally blind Acid reflux Sciatica Gastritis Polyneuropathy Essential hypertension Hyperlipidemia LDL goal <70 Surgical History History of surgery Hx of endoscopy Hx of circumcision Hx of appendectomy Hx of eye surgery Family History Father Diabetes mellitus Mother Diabetes mellitus Maternal Grandfather Diabetes mellitus Maternal Grandmother Diabetes mellitus Social History Household Members: Spouse Household Members Other:: and girlfriend Housing: House Do you presently have visiting nurse or other home services: Yes ([employer]) Alcohol intake: former Comment: 1 TO 1 SITTER Patient Tobacco Use Status: Former Tobacco user Second Hand Smoke Exposure: No Substance Use Type: Marijuana Advance Directives Date on File: 04/13/20 service: No Current occupational status: disabled Physical Exam Vital Signs: Last Vital Signs Pulse 84 11/22/24 15:04 BP 138/82 11/22/24 15:04 Pulse Ox 98 11/22/24 15:04 Oxygen Delivery Method Room Air 11/22/24 15:04 BMI result Body Mass Index 26.3 Const Other: Absence of Cushingoid features. Absence of acromegalic features. Neck exam reveals nl size thyroid about 15 gms. No thyroid nodules palpable. Heart S1 S2, Reg R/R. No M/R G. Skin exam reveals absence of vitiligo or acanthosis nigricans. No edema Walks with the assistance secondary to diminished vision. Visual exam of foot performed. No ulcerations or open lesions. No inter digit maceration or fissuring. No onychomycosis, no callouses. Sensation intact to monofilament exam. Vibratory sensation is normal with 128 Hz tuning fork. Results AMB Hemoglobin A1c AMB Hemoglobin A1c 6.8 % Last Edit by GIL Ingram on 11/22/24 15:25 Results Reviewed Results Reviewed: Laboratory Last Values Glucose (Clinic) 196 mg/dL (60-115) H 11/22/24 15:12 Assessment & Plan Assessment & Plan (1) Diabetes type 1, uncontrolled: Code(s): E10.65 - Type 1 diabetes mellitus with hyperglycemia Category: Medical Plan: This is a 37-year-old male with history of type 1 diabetes was being treated with an Omnipod5 pump with Dexcom with excellent improved glycemic control and known microvascular complications namely .chronic kidney disease stage 2 secondary to diabetic nephropathy, diabetic polyneuropathy, diabetic retinopathy with subsequent blindness Will have patient follow up with drywall metal stud worker in the next week to access pump setting and make proper adjustments . Consideration could be given to tightening the insulin: Carbohydrate for breakfast from 07:00 to 10:00 of 1:9 when the patient meets with the drywall metal stud worker r Orders: Orders AMB Hemoglobin A1c Today E10.65 - Type 1 diabetes mellitus with hyperglycemia Lipid Panel Today E10.65 - Type 1 diabetes mellitus with hyperglycemia Coding Level of Care Code Est Pt Level 4 (97835) Complex EM visit Add On G2211 Diagnoses Uncontrolled type 1 diabetes mellitus with hyperglycemia E10.65
[2024-11-22 15:04] VITALS: BP 138/82; PULSE 84; O2SAT 98; BMI 26.3
[2024-11-22 15:18] LABS: Glucose, Whole Blood 196 mg/dL (60-115)
--- OUTSIDE RECORDS SUMMARY | 2024-11-22 16:18 | XMS_ITS | Clinical Summary ---
Author Organization [address] Address [address] [place] [address] Phone Care Team Providers Care Office Helper Clerical Name Role Phone Physician, Pcp Unknown Primary Care Provider Gwen vailable Social History Tobacco Use Types Packs/Day Years Used Date Smoking Tobacco: Never Assessed Sex and Gender Information Value Date Recorded Sex Assigned at Not on file Legal Sex Male 7:40 AM EDT Gender Identity Not on file Sexual Orientation Not on file Plan of Treatment Health Maintenance Due Date Last Done Comments DTaP,Tdap,and Td Vaccines (1 - Tdap) 09/28/2003 Hepatitis B Vaccines (1 of 3 - 19+ 3-dose series) 09/28/2003 Pneumococcal Vaccine: Pediat rics (0 to 5 Years) and At-Risk Patients (6 to 49 Years) (1 of 2 - PCV) 09/28/2003 HPV Vaccines (1 - 3-dose SCD M series) 09/28/2011 Depression Screening 02/24/2024 Cholesterol Screening (Lipid Panel) 07/16/2024 HIV Screening 07/16/2024 Hepatitis C Screening 07/16/2024 Social Influencers of Health Screening 07/16/2024 COVID-19 Vaccine ( - 2023-2 5 season) 2024 Influenza Vaccine (#1) 2024 RSV Immunization Adult Patie nts (1 - 1-dose 75+ series) 09/28/2059 HIB Vaccines Aged Out No longer eligi ble based on patient's age to complete this topic Hepatitis A Vaccines Aged Out No long er eligible based on patient's age to complete this topic IPV Vaccines Aged Out No longer eligi ble based on patient's age to complete this topic MMR Vaccines Aged Out No longer eligi ble based on patient's age to complete this topic Meningococcal ACWY Vaccine Aged Out N o longer eligible based on patient's age to complete this topic Meningococcal B Vaccine Aged Out No l onger eligible based on patient's age to complete this topic RSV Immunization Patients Un yanna 20 months Aged Out No longer eligible b ased on patient's age to complete this topic Varicella Vaccines Aged Out No longer eligible based on patient's age to complete this topic Insurance MEDICAID - [place] Care Teams Office Helper Clerical Relationship Specialty Start Date End Date Physician, Pcp Unknown PCP - General 07/15/24
--- OUTSIDE RECORDS SUMMARY | 2024-11-22 16:18 | XMS_ITS | Clinical Summary ---
Author Organization [employer] Address [address] [facility] [address] [place] [address] Care Team Providers Care Financial Advisor Trainee Name Role Phone Name, Hong FOSS Primary Care Provider [phone] Magali Doty PharmD Unavailable [phone] Allergies Active Allergy Reactions Criticality Noted [...] MOUTH EVERY MORNING 90 tablet 4 Active tamsulosin (Flomax) 0.4 MG 24 hr capsule TAKE 1 CAPSULE BY MOUTH EVERY EVENING 90 capsule 4 Active calcitriol (Rocaltrol) 0.5 MCG capsule Take 0.5 mcg by mouth in the morning. 4 Active Baqsimi One Pack 3 MG/DOSE nasal powder USE 1 SPRAY (3MG) IN ONE NOSTRIL FOR A PATIENT WITH SEVERE HYPOGLYCEMIA WHO IS NOT RESPONSIVE AND UNABLE SELF-TREAT WITH GLUCOSE. AFTERWARDS TURN ON SIDE. MAY REPEAT IN 15MINUTES IF PATIENT DOES NOT RESPOND. 4 Active Acetone, Urine, Test (Ketone Test) stripIndications :Diabetic ketoacidosis without coma associated with type 1 diabetes mellitus (HCC) Insert 1 each into the urethra if needed each day (abdominal pain). USE DIRECTED WHEN BLOOD SUGAR IS OVER 250 OR FOR NAUSEA AND VOMITING THREE TIMES DAILY 100 strip 3 4 Active ezetimibe (Zetia) 10 MG tabletIndication s: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 (HCC),Type 1 diabetes mellitus with other specified complication (HCC) TAKE 1 TABLET BY MOUTH EVERY MORNING 90 tablet 1 4 Active sevelamer carbonate (Renvela) 800 MG tablet TAKE 1 TABLET BY MOUTH THREE TIMES DAILY IN THE MORNING, AT NOON, AND IN THE EVENING WITH MEALS 90 tablet 1 5 Active nortriptyline (Pamelor) 50 MG capsule TAKE 1 TABLET BY MOUTH AT BEDTIME 90 capsule 3 5 Active omeprazole (PriLOSEC) [address] capsuleIndicatio ns:Hypertension, unspecified type TAKE 1 CAPSULE BY MOUTH EVERY MORNING 90 capsule 3 5 Active atorvastatin (Lipitor) 80 MG tabletIndication s:Hypertension, unspecified type TAKE 1 TABLET BY MOUTH EVERY MORNING 90 tablet 1 5 Active lidocaine (Xylocaine) 5 % ointment APPLY TOPICALLY NEEDED FOR MILD PAIN 35.44 g 1 5 Active NIFEdipine XL (Procardia XL) 30 MG 24 hr tablet Take 1 tablet (30 mg) by mouth Once per day. Do not crush, chew, or split. 30 tablet 11 5 026 Active gabapentin (Neurontin) 100 MG capsule Take 2 capsules (200 mg) by mouth at bedtime. 60 capsule 2 5 Active Viagra 50 MG tabletIndication s:Type 1 diabetes mellitus with other specified complication (HCC) TAKE 1 TABLET 1 HOUR BEFORE SEXUAL RELATIONS ONCE DAILY NEEDED. 10 tablet 2 5 Active hydrOXYzine pamoate (Vistaril) 25 MG capsule TAKE 1 CAPSULE BY MOUTH AT BEDTIME NEEDED FOR ANXIETY FOR UP TO 10 DAYS 30 capsule 1 5 Active cloNIDine (Catapres) 0.1 MG tablet TAKE 1 TABLET BY MOUTH TWICE DAILY IN THE MORNING AND IN THE EVENING 60 tablet 1 5 Active Active Problems Patient Care Coordination No te Formatting of this note migh t be different from the original. C3/CM Mey Weeks RN Problem Noted Date Diagnosed Date ESRD on hemodialysis ([facility]) 12/11/2023 DKA (diabetic ketoacidosis) 12/11/2023 Assessment & Plan (12/17/2023 10:31 AM EDT): -Discussed sick management plan for when he has abdominal pain/vomiting/fever -sent rx for urine ketone test strips for pt to use q 4-6 hours when not feeling well or if feeling any of the following sx: SOB, confusion, n/v/d, abdominal pain, fatigue, dry mouth. -Plan to continue f/u with [facility] endocrinology, continue with CGM and insulin [...] Depressive disorder 03/15/2022 History of heroin abuse ([facility]) 10/12/2020 Cough 06/21/2018 Drowsy 06/21/2018 Insomnia 11/16/2017 [...] after meals -continue to be followed by [facility] endocrinology, plan to get new CGM monitor, pt has one currently but is getting most updated one -continue with insulin pump, also managed by [facility] endocrinology -I will f/u with [facility] endocrinology to obtain recommendations for gastroparesis tx. Chronic low back pain 06/19/2016 Resolved Problems Problem Noted Date Diagnosed Date Resolved Date Stage 3 chronic kidney disease ([facility]) 03/15/2022 06/18/2022 Encounters Date Type Department Care Team Description 11/22/2024 Orders Only GENERIC EXTERNAL DATA DEPARTMENT Provider, Generic External Data 10/25/2024 Telephone [facility] [address] [place] [address] Liss Milton [place] NOV RECALLS 09/25/2024 Refill [facility] [address] [place], [place] [phone] Tina Jones MD 09/25/2024 Refill [facility] MED & PEDS [address] [place], [place] [phone] Hong Rodríguez MD 08/23/2024 2:00 PM EDT Office Visit [facility] [address] [place], [place] [phone] Hong Rodríguez MD Hypotension, unspecified hypotension type (Primary Dx); ESRD on hemodialysis ([facility]); Type 1 diabetes mellitus with other specified complication ([facility]) 08/23/2024 Travel 08/22/2024 Telephone [facility] [address] [place] [phone] Name, MD Hong Chart Prep from Last 3 Months Immunizations Immunization Administration Dates Next Due HepB-CpG 02/19/2023,01/19/2023 Influenza [...] Answer Date Recorded Patient Health Questionnaire-9 Score 6 08/23/2024 Patient Health Questionnaire-9 Score 6 08/23/2024 Last PHQ-9: Questionnaire Data Not on file 0 08/23/2024 Housing Stability Answer Date Recorded What is your housing situation today? I have padmini cameron 08/23/[address] you li ve. Do you have problems with any of the following? None of the above 08/23/2024 Food Insecurity Answer Date Recorded Within the past 12 months, y ou worried that your food would run out before you got money to buy more: Sometimes True 2024 Within the past 12 months,th e food you bought just didn't last and you didn't have enough money to get more: Sometimes True 08/23/2024 Transportation Answer Date Recorded In the past 12 months, has l ack of transportation kept you from medical appts, meetings, work or from getting things needed for daily living? No 08/16/2024 Utilities Answer Date Recorded In the past 12 months, has t he electric, gas, oil or water company threatened to shut off services in your home? No 08/16/2024 Depression Answer Date Recorded Patient Health Questionnaire-2 Score 1 08/23/2024 Internet Access Answer Date Recorded Internet Access [...] Sign Reading Time Taken Comments Blood Pressure 124/74 08/23/2024 2:01 PM EDT Pulse 74 08/23/2024 2:01 PM EDT Temperature 37 C (98.6 F) 08/23/2024 2:01 PM EDT Respiratory Rate 18 08/23/2024 2:01 PM EDT Oxygen Saturation 95% 08/23/2024 2:01 PM EDT Inhaled Oxygen Concentration - - Weight 78.3 kg (172 lb 9.6 oz) 08/23/2024 2:01 P M EDT Height 172.7 cm (5' 8 ) 08/23/2024 2:01 PM EDT Body Mass Index 26.24 08/23/2024 2:01 PM EDT Plan of Treatment Upcoming Encounters Date Type Department Care Team (Late st Contact Info) Description 11/29/2024 9:40 AM EDT Office Visit [facility] OPTOMETRY [address] [place], [place] [phone] 01/17/2025 1:45 PM EST Office Visit [facility] MED[facility]INE [address] [place] [address] Name, MD Hong [address] [place] [address] Health Maintenance Due Date Last Done Comments HIV Screening 1984 Eye Exam 1994 Family Planning (PISQ) 09/28/1999 HPV Vaccines (1 - Male 3-dose series) 09/28/1999 Hepatitis C Screening 2002 Diabetes: Foot Exam 07/12/2024 07/13/2023, 07/13/2023, 07/13/2023, Additional history exists COVID-19 Vaccine ( season) 2024 01/20/2022, 02/06/2021, 06/13/2020, Additional history exists Influenza Vaccine (#1) 2024 , 01/14/2023, 01/06/2022, Additional history exists Alcohol/Substance Use Screening 12/10/2024 12/11/2023 Diabetes: Hemoglobin A1C 12/20/2024 025, 12/11/2023, 11/11/2023, Additional history exists Lipid Panel 01/07/2025 01/08/2024, 09/0 06/2022, 07/15/2021, Additional history exists Depression Screening 08/23/2025 08/23/2024, 08/24/19 25 Disability Screening 08/23/2025 08/23/2024 SDOH Screening 08/23/2025 08/23/2024 Tobacco Screening 08/23/2025 08/23/2024 DTaP/Tdap/Td Vaccines (2 - Td or Tdap) 07/23/2026 07/23/2016 Zoster Vaccines (1 of 2) 2034 RSV Patients and Patients Aged 60 years or older (1 - 1-dose 75+ series) 09/28/2059 Pneumococcal Vaccine: Pediatrics (0 to 5 Years) and At-Risk Patients (6 to 49) Years Completed 01/14/2023, 07/23/2016 Hepatitis B Vaccines Completed 02/19/2023, 01/20/20 23 HIB Vaccines Aged Out No longer eligi [...] PharmD Blood Pressure < 140/90 Blood Pressure 124/74( 025 2:01 PM EDT) No LoraineiaJaninasa, PharmD Procedures Procedure Name Priority Date/Time Associated Diagnosis Comments GLUCOSE, WHOLE BLOOD Routine 11/22/2024 3:12 PM EDT POCT GLUCOSE Routine 08/23/2024 2:02 PM EDT Type 1 diabetes mellitus with other specified complication (CMS/HCC) POCT GLYCATED HEMOGLOBIN, TOTAL Routine 06/20/2024 3:29 PM EDT Type 1 diabetes mellitus with other specified complication (CMS/HCC) LIPID PANEL, STANDARD Routine 01/08/2024 8:02 AM EST Type 1 diabetes mellitus with other specified complication (CMS/HCC) from Last 3 Months or Most Recently Relevant to Health Maintenance Results * (ABNORMAL) Glucose, Whole Blood (11/22/2024 3:12 PM EDT) Glucose, Whole Blood 196(H) 60 - 115 mg/dL [facility] Comment:METER #: [id number] Testing performed in the Endocrinology Department [address] , [address], [facility]. 11/22/2024 3:12 PM EDT 11/22/2024 3:18 PM EDT us Generic External Data Provider LAB BLOOD ORDERAB LES Final Result [facility] [address] [place] [phone] * POCT Glucose (08/23/2024 2:02 PM EDT) Glucose Blood, POC 161 60 - 200 mg/dL QC Media Lot # [id number] Lot# Expiration Date ,025 Blood Capillary blood specimen / Unknown 08/23/2024 2:02 PM EDT Hong Rodríguez MD POINT OF CARE TEST ENTER/EDIT OR DERABLES Final Result * POCT HGB A1C (06/20/2024 3:29 PM EDT) Hemoglobin A1C 5.2 4.0 - 6.0 % QC Media Lot # [id number] Lot# Expiration Date [id number] Blood 06/20/2024 3:29 PM EDT us Hong Rodríguez MD POINT OF CARE TEST ENTER/EDIT OR DERABLES Final Result * (ABNORMAL) Lipid Panel, Standard (01/08/2024 8:02 AM EST) Triglycerides 127 <150 mg/dL [facility] Comment:Desirable Triglyceri de: less than 150 mg/dLBorderline High Triglyceride 150-199 mg/dLHigh Triglyceride: 200-499 mg/dLVery High Triglyceride: greater than or equal to 5OO mg/dL Cholesterol 136 <200 mg/dL [facility] Comment:Desirable Cholestero l: less than 200 mg/dLBorderline High Cholesterol: 200-239 mg/dLHigh Cholesterol: greater than 239 mg/dL LDL Cholesterol Calculated 71 <100 mg/dL [facility] Comment:Desirable LDL: less than 100 mg/dLNear Optimal/Above Optimal LDL: 110- 129 mg/dLBorderline High LDL: 130-159 mg/dLHigh LDL: 160-189 mg/dLVery High LDL: greater than or equal to 190 mg/dL HDL Cholesterol 40(L) >40 mg/dL [facility] Comment:Desirable HDL: great er than 40 mg/dL Note: This HDL assay may give artificially low results in patients with liver disease. Blood Venous blood specimen / Unknown 01/08/2024 8:02 AM EST 01/08/2024 9:14 AM EST us Tammy Yates MD LAB BLOOD ORDERABLES Final Res ult [facility] [address] [place] [address] [phone] from Last 3 Months or Most Recently Relevant to Health Maintenance Insurance [employer] C3 Care Teams Financial Advisor Trainee Relationship Specialty Start Date End Date Name, MD Hong [address] [place] [phone] PCP - General Family Medicine 06/18/16 Magali Doty, TimothyD [address] [place] [phone] Pharmacist Internal Medicine 08/15/22 Natalia Coates PhotogrammetristHydrocrane Operator 07/21/24
--- OUTSIDE RECORDS SUMMARY | 2024-11-22 16:18 | XMS_ITS | Clinical Summary ---
Author Organization [facility] Address [address] [facility] [address] [place] [address] Phone Care Team Providers Care Cardiology Consultant Name Role Phone Name, Hong FOSS Primary Care Provider Allergies Active Allergy Reactions Criticality Noted Date Comments Gluten Meal GI intolerance 10/15/2022 Pt denies Losartan GI intolerance High 06/18/2022 Penicillins Swelling 07/13/2023 Denies Valsartan GI intolerance High 06/18/2022 Medications * This document contains information [...] Do not crush, chew, or split. Active sildenafil (Viagra) 50 MG tablet Take 50 mg by mouth if needed for erectile dysfunction 4 Active sevelamer carbonate (RENVELA) 800 MG tablet Take 800 mg by mouth in the morning and 800 mg at noon and 800 mg in the evening. Take with meals. 5 Active ondansetron ODT (ZOFRAN-ODT) 4 MG dispersible tablet Take 4 mg by mouth every 6 (six) hours if needed for nausea or vomiting 4 Active Glucagon (Baqsimi One Pack) 3 [...] mcg by mouth every morning 4 Active lidocaine (XYLOCAINE) 5 % ointment Apply 1 application. topically if needed for mild pain 5 06/21/19 26 Active hydrOXYzine (VISTARIL) 25 MG capsule Take 25 mg by mouth once daily as needed 5 Active Insulin Aspart 100 UNIT/ML solution INJECT UP TO 70 UNITS WITH PUMP DIRECTED 5 Active Active Problems Problem Noted Date Diagnosed Date Obstructive sleep apnea syndrome 06/28/2024 Chronic kidney disease, stage 4 (severe) 023 Hypertensive urgency 01/13/2023 01/26/2023 Benign prostatic hyperplasia 01/13/202305/2022 Abdominal pain 01/13/2023 01/26/2023 Blindness, both eyes 05/28/2020 Chronic kidney disease stage 3 05/28/2020 Chronic low back pain 05/28/2020 Hypertensive disorder 05/28/2020 Polyneuropathy due to diabetes mellitus 05/29/19 21 Renal disorder due to type 1 diabetes mellitus 0 05/28/2020 Scoliosis deformity of spine 05/28/2020 Bilateral phthisis bulbi 07/23/2018 Blindness AND/OR vision impairment level 019 Cataract 07/23/2018 Diabetes mellitus 07/23/2018 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 06/19/2016 10/16/2022 Encounters Date Type Department Care Team Description 11/16/2024 Orders Only [facility] [address] [address] Bharath Maria MD 11/09/2024 Orders Only [facility] [address] [address] Bharath Maria MD 11/02/2024 Orders Only [facility] [address] [address] Bharath Maria MD 10/26/2024 Orders Only [facility] [address] [address] Bharath Maria MD 10/19/2024 Orders Only [facility] [address] [address] Bharath Maria MD 10/12/2024 Orders Only [facility] [address] [address] Bharath Maria MD 10/05/2024 Orders Only [facility] [address] [address] Bharath Maria MD 09/21/2024 Orders Only [facility] [address] [address] Bharath Maria MD 09/14/2024 Orders Only [facility] [address] [place] [address] Bharath Maria MD 09/07/2024 Orders Only [facility] [address] [address] Bharath Maria MD 08/31/2024 Orders Only [facility] [address] [address] Bharath Maria MD 08/24/2024 Orders Only [facility] [address] [address] Bharath Maria MD from Last 3 Months [...] Sign Reading Time Taken Comments Blood Pressure 129/73 06/28/2024 8:18 AM EDT Pulse 72 06/28/2024 8:18 AM EDT Temperature 36.4 C (97.5 F) 06/28/2024 8:18 AM EDT Respiratory Rate 16 06/28/2024 8:18 AM EDT Oxygen Saturation 92% 06/28/2024 8:18 AM EDT Inhaled Oxygen Concentration - - Weight 74.8 kg (165 lb) 06/28/2024 8:18 AM EDT Height 172.7 cm (5' 8 ) 06/28/2024 8:18 AM EDT Body Mass Index 25.09 06/28/2024 8:18 AM EDT Plan of Treatment Health Maintenance Due Date Last Done Comments Diabetes: Ophthalmology Exam 03/26/2020 Diabetes: Pedal Pulse Checked 03/26/2020 Diabetes: Sensory Foot Exam 03/26/2020 Diabetes: Visual Foot Exam 03/26/2020 Hepatitis B Vaccine (2 of 3 - 19+ 3-dose series) 03/19/2023 02/19/2023, 01/19/2023 Influenza Vaccine (#1) 2024 4, 01/14/2023, 01/06/2022, Additional history exists Diabetes: Hemoglobin A1C 12/08/2024 025, 06/20/2024, 06/08/2024, Additional history exists Pneumococcal Vaccine: 50+ Years Discontinued 3, 07/23/2016 Pneumococcal Vaccine: Peds ( 0 to 5 Years) and At-Risk Patients (6 to 49 Years) Completed 01/14/2023, 07/23/2016 Procedures Procedure Name Priority Date/Time Associated Diagnosis Comments HEMATOLOGY Routine 11/16/2024 THYROIDS Routine 11/09/2024 HEMATOLOGY Routine 11/09/2024 IMMUNO CHEMISTRY Routine 11/09/2024 CHEMISTRY Routine 11/09/2024 CHEMISTRY Routine 11/09/2024 HEMATOLOGY Routine 11/02/2024 HEMATOLOGY Routine 10/26/2024 HEMATOLOGY Routine 10/19/2024 THYROIDS Routine 10/12/2024 HEMATOLOGY Routine 10/12/2024 CHEMISTRY Routine 10/12/2024 IMMUNO CHEMISTRY Routine 10/12/2024 CHEMISTRY Routine 10/12/2024 HEMATOLOGY Routine 10/05/2024 CHEMISTRY Routine 09/21/2024 HEMATOLOGY Routine 09/21/2024 HEMATOLOGY Routine 09/14/2024 THYROIDS Routine 09/07/2024 SPECIAL CHEMISTRY Routine 09/07/2024 CHEMISTRY Routine 09/07/2024 IMMUNO CHEMISTRY Routine 09/07/2024 HEMATOLOGY Routine 09/07/2024 CHEMISTRY Routine 09/07/2024 HEMATOLOGY Routine 08/31/2024 HEMATOLOGY Routine 08/24/2024 from Last 3 Months Results * (ABNORMAL) HEMATOLOGY (11/16/2024) Only the most recent of12 resultswithin the time period is included. Hemoglobin 11.6(L) 14.0 - 18.0 g/dL [facility] Hemoglobin x 3 34.8(L) 42.0 - 54.0 % [facility] 11/16/2024 11/18/2024 8:0 3 AM EDT Narrative [facility] - 11/18/2024 Unless otherwise specified, test(s) performed at: [facility], [address] [place] [id number] THEATRE PROFESSOR: Neeraj Jones M.D. For any questions, please call customer service at FREQUENCY:OTHER Resulting Agency Comment Specimen source: Blood Bharath Maria MD LAB BLOOD ORDERABLES Final Re sult Performing Organization Address [facility]/ZIP Co de Phone Number [facility] See order comments or contact performing lab Unknown, [place] * THYROIDS (11/09/2024) Only the most recent of3 resultswithin the time period is included. TSH 0.881 0.300 - 3.000 mIU/L [facility] Comment: The reference range of 0.300-3.000 mIU/L is recommended by the [place] [employer] Endocrinologists (AACE). An ESRD population contains about 20% of individuals with TSH of up to 20 mIU/L and normal free T4 consistent with non-thyroidal illness. ESRD patients with true hypothyroidism develop persistent values above 20 mIU/L. 11/09/2024 11/10/2024 8:2 3 AM EDT Narrative [facility] - 11/10/2024 Unless otherwise specified, test(s) performed at: [facility], [address] [place] [address] THEATRE PROFESSOR: Neeraj Jones M.D. For any questions, please call customer service at FREQUENCY:MONTHLY Resulting Agency Comment Specimen source: Serum Bharath Maria MD LAB BLOOD ORDERABLES Final Re sult Performing Organization Address [facility] Co de Phone Number [facility] See order comments or contact performing lab Unknown, [place] * IMMUNO CHEMISTRY (11/09/2024) Only the most recent of3 resultswithin the time period is included. Pathologist [facility] Hep B Surface Ag Negative Negative [facility] 11/09/2024 11/10/2024 8:2 3 AM EDT Narrative Resulting Agency Comment Specimen source: Serum Bharath Maria MD LAB BLOOD ORDERABLES Final Re sult Performing Organization Address City/[facility]/ZIP Co de Phone Number [facility] See order comments or contact performing lab Unknown, [place] * (ABNORMAL) [facility] (11/09/2024) Only the most recent of7 resultswithin the time period is included. PTH 605(H) 16 - 80 pg/mL [facility] 11/09/2024 11/10/2024 8:2 6 AM EDT Narrative [facility] - 11/10/2024 Unless otherwise specified, test(s) performed at: [facility], [address] [place] [id number] THEATRE PROFESSOR: Neeraj Jones M.D. For any questions, please call customer service at FREQUENCY:MONTHLY Resulting Agency Comment Specimen source: Plasma Bharath Maria MD LAB BLOOD ORDERABLES Final Re sult Performing Organization Address [facility]/ZIP Co de Phone Number [facility] See order comments or contact performing lab Unknown, [place] * (ABNORMAL) SPECIAL CHEMISTRY (09/07/2024) Pathologist [facility] Hemoglobin A1C 6.6(H) 4.8 - 5.9 % [facility] 09/07/2024 09/08/2024 9:5 7 AM EDT Narrative [facility] - 09/08/2024 Unless otherwise specified, test(s) performed at: [facility], [address] [place] [id number] THEATRE PROFESSOR: Neeraj Jones M.D. For any questions, please call customer service at FREQUENCY:MONTHLY Resulting Agency Comment Specimen source: Blood Bharath Maria MD LAB BLOOD BANK TEST ORDERABLE S Final Result Performing Organization Address City/[facility]/ZIP Co de Phone Number [facility] See order comments or contact performing lab Unknown, [place] from Last 3 Months [place] Care Teams Cardiology Consultant Relationship Specialty Start Date End Date Name, MD Hong [address] [place] [phone] PCP - General 03/05/20
--- OUTSIDE RECORDS SUMMARY | 2024-11-22 16:18 | XMS_ITS | Encounter Summary ---
Author Organization [employer] Address [address] [place] [address] [address] [place] [address] Care Team Providers Care Water Gas Operator Name Role Phone Name, Hong FOSS Primary Care Provider [phone] Magali Doty PharmD Unavailable [phone] Reason for Visit * Reason Comments Med Refill Encounter Details Date Type Department Care Team (Late st Contact Info) Description 01/27/2022 Refill [facility] [address] [place] [phone] Hong Rodríguez MD [address] [place] [phone] Social History Tobacco Use Types Packs/Day Years [...] Description 11/29/2024 9:40 AM EDT Office Visit [facility] OPTOM[facility] [address] [place] [phone] 01/17/2025 1:45 PM EST Office Visit [facility] [address] [place] [address] Hong Rodríguez MD [address] [place] [phone] documented as of this encounter Visit Diagnoses Not on filedocumented in this encounter Care Teams Water Gas Operator Relationship Specialty Start Date End Date Hong Rodríguez MD [address] [place] [address] PCP - General Family Medicine 06/18/16 Magali Doty, Vasyl [address] [facility] [place] [address] Pharmacist Internal Medicine 08/15/22 Natalia Coates Assistant HairstylistJanitor And Cleaner 07/21/24 documented as of this encounter
--- OUTSIDE RECORDS SUMMARY | 2024-11-22 16:18 | XMS_ITS | Encounter Summary ---
Author Organization [facility] Address [address] [place] [address] Care Team Providers Care Fish Butcher Name Role Phone Physician, Pcp Unknown Primary Care Provider Gwen vailable Encounter Details Date Type Department Care Team (Latest Contact Info) Description 07/15/2024 Lab Requisition [facility] - Main Lab [address] [facility] [place] [address] Demetra Cartwright NP [address] [place] [address] Type 1 diabetes mellitus with hyperglycemia (CMS/HCC V24, CMS/FORMERLY [facility] V28) Social History Tobacco Use Types Packs/Day Years [...] Procedure Name Priority Date/Time Associated Diagnosis Comments LAVENDER - EDTA Routine 07/15/2024 6:20 AM EDT Type 1 diabetes mellitus with hyperglycemia (CMS/HCC V24, CMS/[facility]ER[facility] V28) documented in this encounter Results * Lavender tube (07/15/2024 6:20 AM EDT) Extra Tube Hold for add-ons. 07/15/2024 9:01 AM EDT [facility] ([facility]) [facility] Comment:Auto resulted. Blood Venous blood specimen / Unknown 07/15/2024 6:20 AM EDT 07/15/2024 7:48 AM EDT Demetra Cartwright NP LAB BLOOD ORDERABLES Final Resu lt [facility] ([facility]) HOSPITAL LAB [address] [place] [address], documented in this encounter Visit Diagnoses Diagnosis Type 1 diabetes mellitus with hyperglycemia (CMS/HCC V24, CMS/HCC V28) documented in this encounter Care Teams Fish Butcher Relationship Specialty Start Date End Date Physician, Pcp Unknown PCP - General 07/15/24 documented as of this encounter
--- OUTSIDE RECORDS SUMMARY | 2024-11-22 16:18 | XMS_ITS | Encounter Summary ---
Author Organization [facility], Address [address] [place] [address] Phone Care Team Providers Care Sales Trainee Name Role Phone Name, Hong FOSS Primary Care Provider [phone] Encounter Details Date Type Department Care Team (Late st Contact Info) Description 11/16/2024 Orders Only [facility] [address] [place] [address] Bharath Maria MD [address] [place] [address] [place] [address] Social History Tobacco Use Types Packs/Day Years [...] Date/Time Associated Diagnosis Comments HEMATOLOGY Routine 11/16/2024 documented in this encounter Results * (ABNORMAL) HEMATOLOGY (11/16/2024) Hemoglobin 11.6(L) 14.0 - 18.0 g/dL [facility] Hemoglobin x 3 34.8(L) 42.0 - 54.0 % [facility] 11/16/2024 11/18/2024 8:0 3 AM EDT Narrative SHAWANDA - 11/18/2024 Unless otherwise specified, test(s) performed at: [facility], [address] [place] [id number] VARNISH MIXER: Neeraj Jones M.D. For any questions, please call customer service at FREQUENCY:OTHER Resulting Agency Comment Specimen source: Blood us Bharath Maria MD LAB BLOOD ORDERABLES Final Re sult [email or web address] See order comments or contact performing lab Unknown, [place] documented in this encounter Visit Diagnoses Not on filedocumented in this encounter Care Teams Sales Trainee Relationship Specialty Start Date End Date Name, MD Hong [address] [place] [address] PCP - General 03/05/20 documented as of this encounter
--- OUTSIDE RECORDS SUMMARY | 2024-11-22 16:18 | XMS_ITS | Encounter Summary ---
Author Organization [employer] Address [address] [facility] 7t [place] [address] Care Team Providers Care Pharmaceutical Representative Name Role Phone Name, Hong FOSS Primary Care Provider [phone] Magali Doty PharmD Unavailable [phone] Reason for Visit * Reason Comments Med Refill Encounter Details Date Type Department Care Team ([facility] st Contact Info) Description 09/08/2023 Refill [facility] [address] [place] [address] Name, MD Hong [address] [place] [address] Social History Tobacco Use Types Packs/Day Years [...] Description 11/29/2024 9:40 AM EDT Office Visit [facility] [address] [place] [address] 01/17/2025 1:45 PM EST Office Visit [facility] [address] [place] [address] Name, MD Hong [address] [place] [address] documented as of this encounter Goals Goal Patient Goal Type Associated Problems Recent Progress Patient-Stated? Author Record your blood pressure once per day Blood Pressure No Magali Doty, PharmD Blood Pressure < 140/90 Blood Pressure 124/74( 025 2:01 PM EDT) No Magali Doty, PharmD documented as of this encounter Visit Diagnoses Not on filedocumented in this encounter Additional Health Concerns Assessment Noted Time PHQ-9 Depression Total Score: 0 04/14/19 24 1:09 PM EST documented as of this encounter Care Teams Pharmaceutical Representative Relationship Specialty Start Date End Date NameHong MD [address] [place] [phone] PCP - General Family Medicine 06/18/16 Magali Doty, PharmD [address] [place] [address] Pharmacist Internal Medicine 08/15/22 Natalia Coates Sales ConsultantSubgrade Roller Operator 07/21/24 documented as of this encounter
--- OUTSIDE RECORDS SUMMARY | 2024-11-22 16:18 | XMS_ITS | Encounter Summary ---
Author Organization [employer] Address [address] [facility] 7t [place] [address] Care Team Providers Care Coin Teller Name Role Phone Name, Hong FOSS Primary Care Provider [phone] Magali Doty PharmD Unavailable [phone] Reason for Visit * Reason Comments Med Refill Encounter Details Date Type Department Care Team ([facility] st Contact Info) Description 09/13/2023 Refill [facility] [address] [place], [place] [phone] Name, MD Hong [address] [place] [address] Type 1 diabetes mellitus with other specified [...] Description 11/29/2024 9:40 AM EDT Office Visit [facility] OPTOMETRY [address] [place] [address] 01/17/2025 1:45 PM EST Office Visit [facility] [address] [place] [address] Hong Rodríguez MD [address] [place] [address] documented as of this encounter Goals Goal Patient Goal Type Associated Problems Recent Progress Patient-Stated? Author Record your blood pressure once per day Blood Pressure No Magali Doty, PharmD Blood Pressure < 140/90 Blood Pressure 124/74( 025 2:01 PM EDT) No Janina Dotysa, PharmD documented as of this encounter Visit Diagnoses Diagnosis Type 1 diabetes mellitus with other specified complication (HCC) documented in this encounter Additional Health Concerns Assessment Noted Time PHQ-9 Depression Total Score: 0 04/14/19 24 1:09 PM EST documented as of this encounter Care Teams Coin Teller Relationship Specialty Start Date End Date Hong Rodríguez MD [address] [place] [address] PCP - General Family Medicine 06/18/16 Magali Doty, PharmD [address] [place] [address] Pharmacist Internal Medicine 08/15/22 Natalia Coates Cider Press OperatorGreen Coffee Blender 07/21/24 documented as of this encounter
--- OUTSIDE RECORDS SUMMARY | 2024-11-22 16:18 | XMS_ITS | Encounter Summary ---
Author Organization [employer] Address [address] [facility] 7t [place] [address] Care Team Providers Care Center Lead Consultant Name Role Phone Name, Hong FOSS Primary Care Provider [phone] Magali Doty PharmD Unavailable [phone] Encounter Details Date Type Department Care Team (Late st Contact Info) Description 11/22/2024 Orders Only GENERIC EXTERNAL DATA [...] Description 11/29/2024 9:40 AM EDT Office Visit [facility] OPTOM[facility] [address] [place] [address] 01/17/2025 1:45 PM EST Office Visit [facility] MEDIC[facility] [address] [place] [address] Name, MD Hong [address] [place] [address] documented as of this encounter Goals Goal Patient Goal Type Associated Problems Recent Progress Patient-Stated? Author Record your blood pressure once per day Blood Pressure No Puia, Magali, PharmD Blood Pressure < 140/90 Blood Pressure 124/74( 025 2:01 PM EDT) No Puia, Magali, PharmD documented as of this encounter Procedures Procedure Name Priority Date/Time Associated Diagnosis Comments GLUCOSE, WHOLE BLOOD Routine 11/22/2024 3:12 PM EDT documented in this encounter Results * (ABNORMAL) Glucose, Whole Blood (11/22/2024 3:12 PM EDT) Glucose, Whole Blood 196(H) 60 - 115 mg/dL [facility] Comment:METER #: [id number] Testing performed in the Endocrinology Department [address] , [address], [facility]. 11/22/2024 3:12 PM EDT 11/22/2024 3:18 PM EDT us Generic External Data Provider LAB BLOOD ORDERAB LES Final Result [facility] [address] [place] [address] [phone] documented in this encounter Visit Diagnoses Not on filedocumented in this encounter Additional Health Concerns Assessment Noted Time PHQ-9 Depression Total Score: 6 08/24/19 2:25 PM EDT documented as of this encounter Care Teams Center Lead Consultant Relationship Specialty Start Date End Date Name, MD Hong [address] [place] [address] PCP - General Family Medicine 06/18/16 Magali Doty PharmD [address] [place] [address] Pharmacist Internal Medicine 08/15/22 Natalia Coates LarrimanAvionics Manager 07/21/24 documented as of this encounter
--- OUTSIDE RECORDS SUMMARY | 2024-11-22 16:18 | XMS_ITS | Clinical Summary ---
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 Not on mindy e 06/20/2022 Are you concerned about learning? Not on file 06/20/2022 No 06/20/2022 No 06/20/2022 Digital Access Answer Date Recorded No 07/19/2022 No 07/19/2022 No 07/19/2022 Reliable internet access at home? Not on file 07/19/2022 Device with a working camera? Not on file Sex and Gender Information Value Date Recorded Sex Assigned at Not on file Legal Sex Male 9:28 AM EST Gender Identity Not on file Sexual Orientation Not on file Plan of Treatment Health Maintenance Due Date Last Done Comments Adult Td,Tdap Booster 1984 BLOOD PRESSURE 1984 HEMOGLOBIN A1C 1984 DEPRESSION SCREENING 1996 SMOKING Hx and SMOKELESS TOB ACCO SCREENING 1997 HEPATITIS C SCREENING 2002 HIV ONE-TIME SCREENING (18-6 5 YEARS) 2002 LIPID PANEL 2002 PNEUMOCOCCAL VACCINES (0-49 years) (1 of 2 - PCV) 09/28/2003 DIABETIC EYE EXAM 07/23/2018 URINE MICROALBUMIN/CREATININ E RATIO 07/23/2018 INFLUENZA VACCINE (#1) 2024 COVID-19 VACCINE (2 2024-2 6 season) 2024 05/16/2020 HEPATITIS A VACCINES Aged Out No long er eligible based on patient's age to complete this topic HIB VACCINES Aged Out No longer eligi ble based on patient's age to complete this topic MENINGOCOCCAL VACCINES (ACWY) Aged Out No longer eligible based on patient's age to complete this topic MENINGOCOCCAL VACCINES (B) Aged Out N o longer eligible based on patient's age to complete this topic Medical Devices Not on file Insurance MEDICARE PART A & B [facility] MEDICARE PART A & B [place] [phone] MEDICARE PART A [place] [phone] MEDICARE PART A & [place] [address] MEDICARE PART A & B [place] MEDIC[place] PART A & B [facility] MEDICARE PART A & B [place] MEDIC[place] PART A & B [facility] Care Teams Jig Maker Relationship Specialty Start Date End Date Name, MD Hong [address] [place] [address] PCP - General Geriatric Psychiatry 01/27/18 Additional Source Comments The information contained in this document represents components of the legal health record. It is not the complete legal health record.[facility]
--- OUTSIDE RECORDS SUMMARY | 2024-11-22 16:18 | XMS_ITS | Encounter Summary ---
Author Organization [employer] Address [address] [facility] 7t [place] [address] Care Team Providers Care Manufacturing Executive Name Role Phone Name, Hong FOSS Primary Care Provider [phone] Magali Doty PharmD Unavailable [phone] Reason for Visit * Reason Comments Med Refill Encounter Details Date Type Department Care Team ([facility] st Contact Info) Description 01/11/2023 Refill [facility] [address] [place] [address] Name, MD Hong [address] [place] [address] Essential hypertension Social History Tobacco Use Types [...] Description 11/29/2024 9:40 AM EDT Office Visit [facility] OPTOMET[facility] [address] [place], [place] [phone] 01/17/2025 1:45 PM EST Office Visit [facility] [address] [place] [address] Name, MD Hong [address] [place] [address] documented as of this encounter Goals Goal Patient Goal Type Associated Problems Recent Progress Patient-Stated? Author Record your blood pressure once per day Blood Pressure No PuiaSamMagali, PharmD Blood Pressure < 140/90 Blood Pressure 124/74( 025 2:01 PM EDT) No Puia Magali, PharmD documented as of this encounter Visit Diagnoses Diagnosis Essential hypertension Unspecified essential hypertension documented in this encounter Care Teams Manufacturing Executive Relationship Specialty Start Date End Date Name, MD Hong [address] [place] [address] PCP - General Family Medicine 06/18/16 Puia, Magali, PharmD [address] [place] [address] Pharmacist Internal Medicine 08/15/22 Natalia Coates Saw OffbearerConstruction Administrative Assistant 07/21/24 documented as of this encounter
--- OUTSIDE RECORDS SUMMARY | 2024-11-22 16:18 | XMS_ITS | Encounter Summary ---
Author Organization [employer] Address [address] [place] [address] Care Team Providers Care Fruit Grading Supervisor Name Role Phone Physician, Pcp Unknown Primary Care Provider Gwen vailable Encounter Details Date Type Department Care Team (Latest Contact Info) Description 07/22/2024 Lab Requisition [facility] - Main Lab [address] [facility] [place] [address] Demetra Cartwright NP [address] [place] [address] Type 1 diabetes mellitus with hyperglycemia (CMS/HCC V24, CMS/HCC V28) Social History Tobacco Use Types Packs/Day [...] Procedure Name Priority Date/Time Associated Diagnosis Comments FRUCTOSAMINE Routine 07/22/2024 6:35 AM EDT Type 1 diabetes mellitus with hyperglycemia (CMS/HCC V24, CMS/HCC V28) documented in this encounter Results * Fructosamine (07/22/2024 6:35 AM EDT) Fructosamine 291 151 - 300 umol /L 07/25/2024 11:36 AM EDT [facility] Comment: Test performed at [facility], [address], [place] [address] Mili Doan MD, PhD - Sleep Lab Technician Blood Venous blood specimen / Unknown 07/22/2024 6:35 AM EDT 07/22/2024 8:02 AM EDT us Demetra Cartwright NP LAB BLOOD ORDERABLES Final Resu lt [facility] [address] [place] [address] documented in this encounter Visit Diagnoses Diagnosis Type 1 diabetes mellitus with hyperglycemia (CMS/HCC V24, CMS/HCC V28) documented in this encounter Care Teams Fruit Grading Supervisor Relationship Specialty Start Date End Date Physician, Pcp Unknown PCP - General 07/15/24 documented as of this encounter
--- OUTSIDE RECORDS SUMMARY | 2024-11-22 16:18 | XMS_ITS | Encounter Summary ---
Author Organization [employer] Address [address] [facility] 7t [place] [address] Care Team Providers Care Lead Former Name Role Phone Name, Hong FOSS Primary Care Provider [phone] Magali Doty PharmD Unavailable [phone] Reason for Visit * Reason Onset Date Comments ACROBATIC DANCER Services 09/08/2023 Encounter Details Date Type Department Care Team ([facility] st Contact Info) Description 09/08/2023 Telephone [facility] [address] [place] [address] Name, MD Hong [address] [place] [address] ACROBATIC DANCER Services Social History Tobacco Use Types Packs/Day [...] to patricia to inform that pt. Or career guidance counselor has to call for ACROBATIC DANCER service ( List is below ) , they will evaluate pt. For ACROBATIC DANCER service and will send documents to PCP for sign. No answer. LVM to call back on [phone]. [facility] [address] [place] [address] [place] [address] A [facility] (Not accepted by [facility]) [address] [address] * Telephone Encounter - Shantal Chavarria - 09/08/2023 1:17 PM EDT Tc from [facility] stating she received a phone call from [facility],. * Telephone Encounter - Colton Herrera RN - 09/08/2023 1:16 PM EDT T/C to [phone] through [facility] id - [id number] for below message , No answer.voice mailbox is full, not able to LVM. * Telephone Encounter - Solomon Uriel - 09/08/2023 12:17 PM EDT Tc from the patients spouse requesting ACROBATIC DANCER services for the patient states the patient should not be alone due to conditions documented in this encounter Plan of Treatment Upcoming Encounters Date Type Department Care Team (Late st Contact Info) Description 11/29/2024 9:40 AM EDT Office Visit [facility] [address] [place], [place] [phone] 01/17/2025 1:45 PM EST Office Visit [facility] [address] [place] [address] Name, MD Hong [address] [place] [address] documented as of this encounter Goals Goal [...] documented as of this encounter Care Teams Lead Former Relationship Specialty Start Date End Date Name, MD Hong [address] [place] [phone] PCP - General Family Medicine 06/18/16 Magali Doty, PharmD [address] [place] [address] Pharmacist Internal Medicine 08/15/22 Natalia Coates Track SupervisorAir Route Controller 07/21/24 documented as of this encounter
== END 2024-11-22 15:33 | disposition home or self-care (01) ==
LOC: HO.ENCR 14:57
PROVIDERS: Visit Provider Internal Medicine Endocrinology, Diabetes & Metabolism
DX: E10.65 Type 1 diabetes mellitus with hyperglycemia (principal)
CPT/HCPCS: 99214

== ENCOUNTER → 2024-11-22 14:56 | Outpatient (BNVA) | payer MEDICAID, SELFPAY | PROVIDERS: Visit Provider Internal Medicine Endocrinology, Diabetes & Metabolism | DX: E10.65 Type 1 diabetes mellitus with hyperglycemia (principal) | CPT/HCPCS: 82947; 83036; 99212 ==

== ENCOUNTER → 2024-11-23 23:59 | Outpatient (BNV) | payer MEDICAID, SELFPAY | PROVIDERS: Visit Provider Internal Medicine Nephrology | DX: N18.6 End stage renal disease (principal) | CPT/HCPCS: 90961 ==

== ENCOUNTER 2024-12-15 14:21 | Outpatient (AMB) | payer MEDICAID, SELFPAY ==
--- NOTE | 2024-12-15 14:36 | A.OFFVIS_ITS ---
Intake Intake Visit Reasons: 30 min Accompanied by: Spouse Allergies losartan Allergy (Verified 11/22/24 15:05) Gastrointestinal Upset valsartan Adverse Reaction (Unknown, Verified 11/22/24 15:05) GI problems HPI Comprehensive Diabetes Asmnt Most Recent Diabetes Results: 2 Hemoglobin A1c 8.3 % 09/10/18 Microalb/Creat Ratio 1922.5 ug/mg cr 07/15/21 Cholesterol, (<200) 136 mg/dL 01/08/24 HDL Cholesterol, (>40) 40 mg/dL L 01/08/24 Triglycerides, (<150) 127 mg/dL 01/08/24 Creatinine, (0.5-1.4) 9.14 mg/dL H* 04/11/24 BUN, (9-16) 72 mg/dL H 04/11/24 Sodium, (135-145) 137 mmol/L 04/11/24 Potassium, (3.3-5.1) 4.0 mmol/L 04/11/24 Chloride, (96-108) 97 mmol/L 04/11/24 Carbon Dioxide, (22-29) 23 mmol/L 04/11/24 Calcium, (8.4-10.2) 9.3 mg/dL Δ 04/11/24 AST, (5-37) 15 U/L 04/06/24 ALT, (0-40) 9 U/L 04/06/24 Total Protein, (6.5-8.0) 7.3 g/dL 04/06/24 Albumin, (3.5-5.0) 3.6 g/dL 04/06/24 [facility] Medical History Hypertensive urgency CKD (chronic kidney disease) stage 4, GFR 15-29 ml/min Hypertensive nephrosclerosis Diabetic gastroparesis Pancreatitis Vitamin D deficiency Hypocalcemia Background diabetic retinopathy associated with type 2 diabetes mellitus Diabetes type 1, uncontrolled Hemangioma of liver Legally blind Acid reflux Sciatica Gastritis Polyneuropathy Essential hypertension Hyperlipidemia LDL goal <70 Surgical History History of surgery Hx of endoscopy Hx of circumcision Hx of appendectomy Hx of eye surgery Family History Father Diabetes mellitus Mother Diabetes mellitus Maternal Grandfather Diabetes mellitus Maternal Grandmother Diabetes mellitus Social History Household Members: Spouse Household Members Other:: and girlfriend Housing: House Do you presently have visiting nurse or other home services: Yes (COAGULATION OPERATOR) Alcohol intake: former Comment: 1 TO 1 SITTER Patient Tobacco Use Status: Former Tobacco user Second Hand Smoke Exposure: No Substance Use Type: Marijuana Advance Directives Date on File: 04/13/20 service: No Current occupational status: disabled Assessment & Plan Assessment & Plan (1) Diabetes type 1, uncontrolled: Code(s): E10.65 - Type 1 diabetes mellitus with hyperglycemia Plan: Patient presents for pump training for Omnipod 5 pump and Dexcom G7 training today. The following topics were reviewed today: -Pump therapy basic concepts: Basal/bolus, insulin to carb ratio, correction factor, insulin on board -Device settings: Bluetooth/mobile connection (if applicable), correct date and time, sound volume -CGM settings(if integrated system): CGM graft views and trend arrows, alerts and alarms, Start new sensor ??? High Alert: 180 mg/dL ??? Low Alert: 80 mg/dL Patient's last A1c on 11/22/2024 6.8% Patient's glucose at this time as well controlled, at last visit with Dr. Grant he wanted an adjustment made to breakfast insulin to carb ratio Patient has had sporadic lows throughout the last 14 days Patient reports he has been treating lows with fruit juice or sometimes just by eating I reviewed the following with patient: Hypoglycemia or blood glucose under 70 mg/dL use the rule of 15's: If you have your blood glucose meter test your blood glucose, if you do not have your meter still follow below instruction: Keep quick-sugar foods with you at all times.? Take 15 grams of fast acting carbohydrates. Examples are 4 ounces of fruit juice or regular soda pop, 8 ounces fat-free milk, 1 tablespoon of table sugar, honey or corn syrup, jam, one miniature box of raisins, 7-8 gumdrops or Life Savers candy, 4 glucose tablets, and glucose gel.? Retest blood glucose in 15 minutes, if blood glucose is still under 80 mg/dL,repeat rule of 15's. If blood glucose is under 50, take 30 grams of fast acting carbohydrates If you are having hypoglycemia, or insulin reaction, more that a few times a week, call MD or diabetic educator F/U BG check Patient understands the basic concepts of pump therapy, how to give insulin for meals and snacks, how to troubleshoot for hyper and hypoglycemia. In addition basal rate changed, in manual mode to reflect more accurate basal rate from auto mode See changes to settings at today's visit Basal rate(s) (units/hour) : ?12 AM to 7 AM 1.25 units/hr?New ?12 AM to 7 AM 0.8 units/hr? 7 AM to 12 AM 1.0 units /hr New 7 AM to 12 AM 0.7 units /hr Bolus setting Insulin Carbohydrate Ratio (s) 12 AM to 7 AM? 1 unit:10.8 gm? 7 AM to 10 AM 1 unit: 9 gm 10 AM to 12 AM 1 unit: 10.8 gm Correction Factor / Sensitivity Factor 12 AM to 12 PM 1 unit / 70 mg/dL 12 PM to 7 PM??1 unit / 65 mg/dL 7 PM to 12 AM? 1 unit / 70 mg/dL Active Insulin Time:? 2.5 hours Coding Level of Care Code Est Pt Level 1 (12680) Diagnoses Uncontrolled type 1 diabetes mellitus with hyperglycemia E10.65
--- OUTSIDE RECORDS SUMMARY | 2024-12-15 18:13 | XMS_ITS | Clinical Summary ---
Author Organization [facility] Address [address] [place] [address] Phone Care Team Providers Care Animal Researcher Name Role Phone Name, Hong FOSS Primary Care Provider [phone] Medications No known medications Active Problems Problem [...] file Insurance MEDICARE PART A & B [facility] MEDICARE PART A & [place] [id number] MEDICARE PART A & [place] [phone] MEDICARE [place] A [place] [phone] MEDICARE PART A [place] & B [facility] MEDICARE PART A & [place] A & B [facility] Care Teams Animal Researcher Relationship Specialty Start Date End Date Name, MD Hong [address] [place] [address] PCP - General Geriatric Psychiatry 01/27/18 Additional Source Comments The information contained in this document represents components of the legal health record. It is not the complete legal health record.[facility]
--- OUTSIDE RECORDS SUMMARY | 2024-12-15 18:13 | XMS_ITS | Clinical Summary ---
Author Organization [facility] Address [address] [facility] [address] [place] [address] Phone Care Team Providers Care Director Of Field Sales Name Role Phone Name, Hong FOSS Primary Care Provider [phone] Allergies Active Allergy Reactions Criticality Noted Date [...] Encounters Date Type Department Care Team Description 12/14/2024 Orders Only [facility] [address] [address] Bharath Maria MD 12/07/2024 Orders Only [facility] [address] [address] Bharath Maria MD 11/30/2024 Orders Only [facility] [address] [address] Bharath Maria MD 11/16/2024 Orders Only [facility] [address] [address] Bharath Maria MD 11/09/2024 Orders Only [facility] [address] [address] Bharath Maria MD 11/02/2024 Orders Only [facility] [address] [address] Bharath Maria MD 10/26/2024 Orders Only [facility] [address] [address] Bharath Maria MD 10/19/2024 Orders Only [facility] [address] [address] Bharath Maria MD 10/12/2024 Orders Only [facility] [address] [place] [address] Bharath Maria MD 10/05/2024 Orders Only [facility] [address] [address] Bharath Maria MD 09/21/2024 Orders Only [facility] [address] [address] Bharath Maria MD 09/14/2024 Orders Only [facility] [address] [address] Bharath Maria MD from Last 3 Months [...] 01/06/2022, Additional history exists Diabetes: Hemoglobin A1C 03/09/2025 025, 09/07/2024, 06/20/2024, Additional history exists Pneumococcal Vaccine: 50+ Years Discontinued , 07/23/2016 Pneumococcal Vaccine: Peds ( 0 to 5 Years) and At-Risk Patients (6 to 49 Years) Completed 01/14/2023, 07/23/2016 Procedures Procedure Name Priority Date/Time Associated Diagnosis Comments HEMATOLOGY Routine 12/14/2024 THYROIDS Routine 12/07/2024 SPECIAL CHEMISTRY Routine 12/07/2024 IMMUNO CHEMISTRY Routine 12/07/2024 HEMATOLOGY Routine 12/07/2024 CHEMISTRY Routine 12/07/2024 CHEMISTRY Routine 12/07/2024 HEMATOLOGY Routine 11/30/2024 HEMATOLOGY Routine 11/16/2024 THYROIDS Routine 11/09/2024 HEMATOLOGY Routine 11/09/2024 IMMUNO CHEMISTRY Routine 11/09/2024 CHEMISTRY Routine 11/09/2024 CHEMISTRY Routine 11/09/2024 HEMATOLOGY Routine 11/02/2024 HEMATOLOGY Routine 10/26/2024 HEMATOLOGY Routine 10/19/2024 THYROIDS Routine 10/12/2024 HEMATOLOGY Routine 10/12/2024 CHEMISTRY Routine 10/12/2024 IMMUNO CHEMISTRY Routine 10/12/2024 CHEMISTRY Routine 10/12/2024 HEMATOLOGY Routine 10/05/2024 CHEMISTRY Routine 09/21/2024 HEMATOLOGY Routine 09/21/2024 HEMATOLOGY Routine 09/14/2024 from Last 3 Months Results * (ABNORMAL) HEMATOLOGY (12/14/2024) Only the most recent of12 resultswithin the time period is included. Hemoglobin 12.1(L) 14.0 - 18.0 g/dL [facility] Hemoglobin x 3 36.3(L) 42.0 - 54.0 % [facility] 12/14/2024 12/15/2024 8:1 3 AM EDT Narrative [facility] - 12/15/2024 Unless otherwise specified, test(s) performed at: [facility], [address] [place] [address] COAL DRIER OPERATOR: Neeraj Jones M.D. For any questions, please call customer service at FREQUENCY:OTHER Resulting Agency Comment Specimen source: Blood us Bharath Maria MD LAB BLOOD ORDERABLES Final Re sult Performing Organization Address [facility]/ZIP Co de Phone Number [facility] See order comments or contact performing lab Unknown, [place] * THYROIDS (12/07/2024) Only the most recent of3 resultswithin the time period is included. TSH 0.758 0.300 - 3.000 mIU/L [facility] Comment: The reference range of 0.300-3.000 mIU/L is recommended by the [place] Association of Clinical Endocrinologists (AACE). An ESRD population contains about 20% of individuals with TSH of up to 20 mIU/L and normal free T4 consistent with non-thyroidal illness. ESRD patients with true hypothyroidism develop persistent values above 20 mIU/L. 12/07/2024 12/08/2024 8:1 7 AM EDT Narrative [email or web address] - 12/08/2024 Unless otherwise specified, test(s) performed at: [facility], [address] [place] [address] COAL DRIER OPERATOR: Neeraj Jones M.D. For any questions, please call customer service at FREQUENCY:MONTHLY Resulting Agency Comment Specimen source: Serum Bharath Maria MD LAB BLOOD ORDERABLES Final Re sult Performing Organization Address [facility] Co de Phone Number [facility] See order comments or contact performing lab Unknown, [place] * (ABNORMAL) SPECIAL CHEMISTRY (12/07/2024) Hemoglobin A1C 6.9(H) 4.8 - 5.9 % [facility] 12/07/2024 12/08/2024 8:1 1 AM EDT Narrative [facility] - 12/08/2024 Unless otherwise specified, test(s) performed at: [facility], [address] [place] [address] COAL DRIER OPERATOR: Neeraj Jones M.D. For any questions, please call customer service at FREQUENCY:MONTHLY Resulting Agency Comment Specimen source: Blood Bharath Maria MD LAB BLOOD BANK TEST ORDERABLE S Final Result Performing Organization Address [facility] de Phone Number [facility] See order comments or contact performing lab Unknown, [place] * IMMUNO CHEMISTRY (12/07/2024) Only the most recent of3 resultswithin the time period is included. Hep B Surface Ag Negative Negative [facility] 12/07/2024 12/08/2024 8:1 7 AM EDT Narrative [facility] - 12/08/2024 Unless otherwise specified, test(s) performed at: [facility], [address] [place] [address] COAL DRIER OPERATOR: Neeraj Jones M.D. For any questions, please call customer service at FREQUENCY:MONTHLY Resulting Agency Comment Specimen source: Serum Bharath Maria MD LAB BLOOD ORDERABLES Final Re sult Performing Organization Address [facility] de Phone Number [facility] See order comments or contact performing lab Unknown, [place] * (ABNORMAL) [facility] Chemistry (12/07/2024) Only the most recent of7 resultswithin the time period is included. PTH 428(H) 16 - 80 pg/mL [facility] 12/07/2024 12/08/2024 7:3 7 AM EDT Narrative [facility] - 12/08/2024 Unless otherwise specified, test(s) performed at: [facility], [address] [place] [address] COAL DRIER OPERATOR: Neeraj Jones M.D. For any questions, please call customer service at FREQUENCY:MONTHLY Resulting Agency Comment Specimen source: Plasma Bharath Maria MD LAB BLOOD ORDERABLES Final Re sult Performing Organization Address [facility] de Phone Number [facility] [place] [facility] See order comments or contact performing lab Unknown, [place] from Last 3 Months [place] / [place]ayer (Ef fective 2024-Present) Name:Veto Hernandez Relation to Subscriber:Self Name:Veto Hernandez Payer ID:Not on file Group ID:Not on file Type:Not on file Address: [address] Care Teams Director Of Field Sales Relationship Specialty Start Date End Date Name, MD Hong [address] [place] [address] PCP - General 03/05/20
--- OUTSIDE RECORDS SUMMARY | 2024-12-15 18:13 | XMS_ITS | Encounter Summary ---
Author Organization [employer] [facility] Address [address] [facility] 7t [place] [address] Care Team Providers Care Players Club Representative Name Role Phone Name, Hong FOSS Primary Care Provider [phone] Magali Doty PharmD Unavailable [phone] Reason for Visit * Reason Comments Med Refill Encounter Details Date Type Department Care Team ([facility] st Contact Info) Description 01/11/2023 Refill [facility] MEDICINE [address] [place] [address] Name, MD Hong [address] [place] [address] Essential hypertension Social History Tobacco Use Types [...] Care Team (Late st Contact Info) Description 01/17/2025 1:45 PM EST Office Visit [facility] MEDICINE [address] [place] [address] Name, MD Hong [address] [place] [address] documented as of this encounter Goals Goal Patient Goal Type Associated Problems Recent Progress Patient-Stated? Author Record your blood pressure once per day Blood Pressure No Puia, Magali, PharmD Blood Pressure < 140/90 Blood Pressure 124/74( 025 2:01 PM EDT) No Puia, Magali, PharmD documented as of this encounter Visit Diagnoses Diagnosis Essential hypertension Unspecified essential hypertension documented in this encounter Care Teams Players Club Representative Relationship Specialty Start Date End Date NameHong MD [address] [place] [address] PCP - General Family Medicine 06/18/16 Puia, Magali, PharmD [address] [place] [address] Pharmacist Internal Medicine 08/15/22 Natalia Coates Grinder Set Up Operator Gear ToolProvider Relations Rep 07/21/24 documented as of this encounter
--- OUTSIDE RECORDS SUMMARY | 2024-12-15 18:13 | XMS_ITS | Encounter Summary ---
Author Organization [facility] Address [address] [place] [address] Care Team Providers Care Mobile Mechanic Name Role Phone Physician, Pcp Unknown Primary Care Provider Gwen vailable Encounter Details Date Type Department Care Team (Latest Contact Info) Description 07/22/2024 Lab Requisition [facility] - Main Lab [address] [facility] [place] [address] Demetra Cartwright NP [address] [place] [address] Type 1 diabetes mellitus with [...] EDT [facility] Comment: Test performed at [facility], [address], [place] [address] Mili Doan MD, PhD - Arterial Embalmer Blood Venous blood specimen / Unknown 07/22/2024 6:35 AM EDT 07/22/2024 8:02 AM EDT us Demetra Cartwright NP LAB BLOOD ORDERABLES Final Resu lt [facility] [address] [address] documented in this encounter Visit Diagnoses Diagnosis Type 1 diabetes mellitus with hyperglycemia (CMS/HCC V24, CMS/HCC V28) documented in this encounter Care Teams Mobile Mechanic Relationship Specialty Start Date End Date Physician, Pcp Unknown PCP - General 07/15/24 documented as of this encounter
--- OUTSIDE RECORDS SUMMARY | 2024-12-15 18:13 | XMS_ITS | Clinical Summary ---
Author Organization [address] Address [address] [place] [address] Phone Care Team Providers Care Safety Equipment Tester Name Role Phone Physician, Pcp Unknown Primary [...] topic Insurance MEDICAID - [place] Care Teams Safety Equipment Tester Relationship Specialty Start Date End Date Physician, Pcp Unknown PCP - General 07/15/24
--- OUTSIDE RECORDS SUMMARY | 2024-12-15 18:13 | XMS_ITS | Encounter Summary ---
Author Organization [employer] Address [address] [facility] 7t [place] [address] Care Team Providers Care Wicker Molded Candles Name Role Phone Name, Hong FOSS Primary Care Provider [phone] Magali Doty PharmD Unavailable [phone] Reason for Visit * Reason Comments Med Refill Encounter Details Date Type Department Care Team ([facility] st Contact Info) Description 09/08/[address] [facility] MEDICINE [address] [place] [address] Name, MD Hong [address] [place] [address] Social History Tobacco Use Types Packs/Day Years [...] Description 01/17/2025 1:45 PM EST Office Visit [facility] MEDICINE [address] [place] [phone] NameHong MD [address] [place] [address] documented as of this encounter Goals Goal Patient Goal Type Associated Problems Recent Progress Patient-Stated? Author Record your blood pressure once per day Blood Pressure No Puia, Magali, PharmD Blood Pressure < 140/90 Blood Pressure 124/74( 025 2:01 PM EDT) No PuiaSamMagali, PharmD documented as of this encounter Visit Diagnoses Not on filedocumented in this encounter Additional Health Concerns Assessment Noted Time PHQ-9 Depression Total Score: 0 04/14/19 24 1:09 PM EST documented as of this encounter Care Teams Wicker Molded Candles Relationship Specialty Start Date End Date Name, MD Hong [address] [place] [address] PCP - General Family Medicine 06/18/16 PuiaJaninasa, PharmD [address] [place] [address] Pharmacist Internal Medicine 08/15/22 Natalia Coates Diversified Crops I FarmworkerCake Batter Mixer 07/21/24 documented as of this encounter
--- OUTSIDE RECORDS SUMMARY | 2024-12-15 18:13 | XMS_ITS | Encounter Summary ---
Author Organization [facility], Address [address] [place] [address] Phone Care Team Providers Care Hall Worker Name Role Phone Name, Hong FOSS Primary Care Provider [phone] Encounter Details Date Type Department Care Team (Late st Contact Info) Description 12/14/2024 Orders Only [facility] [address] [place] [phone] Bharath Maria MD [address] [place] [address] [place] [address] Social History Tobacco Use Types Packs/Day Years [...] Date/Time Associated Diagnosis Comments HEMATOLOGY Routine 12/14/2024 documented in this encounter Results * (ABNORMAL) HEMATOLOGY (12/14/2024) Hemoglobin 12.1(L) 14.0 - 18.0 g/dL [facility] Hemoglobin x 3 36.3(L) 42.0 - 54.0 % [facility] 12/14/2024 12/15/2024 8:1 3 AM EDT Narrative [facility] - 12/15/2024 Unless otherwise specified, test(s) performed at: [facility], [address] [place] [address] CARE ADVOCATE: Neeraj Jones M.D. For any questions, please call customer service at FREQUENCY:OTHER Resulting Agency Comment Specimen source: Blood us Bharath Maria MD LAB BLOOD ORDERABLES Final Re sult [facility] See order comments or contact performing lab Unknown, [place] documented in this encounter Visit Diagnoses Not on filedocumented in this encounter Care Teams Hall Worker Relationship Specialty Start Date End Date Name, MD Hong [address] [place] [address] PCP - General 03/05/20 documented as of this encounter
--- OUTSIDE RECORDS SUMMARY | 2024-12-15 18:13 | XMS_ITS | Encounter Summary ---
Author Organization [employer] Address [address] [place] [address] 7t [place] [address] Care Team Providers Care Business Project Manager Name Role Phone Name, Hong FOSS Primary Care Provider [phone] Magali Doty PharmD Unavailable [phone] Reason for Visit * Reason Comments Med Refill Encounter Details Date Type Department Care Team (Late st Contact Info) Description 01/27/2022 Refill [facility] MEDICINE [address] [place] [address] NameHong MD [address] [place] [address] Social History Tobacco Use Types Packs/Day Years [...] Description 01/17/2025 1:45 PM EST Office Visit [facility] MEDICINE [address] [place] [address] Hong Rodríguez MD [address] [place] [address] documented as of this encounter Visit Diagnoses Not on filedocumented in this encounter Care Teams Business Project Manager Relationship Specialty Start Date End Date NameHong MD [address] [place] [address] PCP - General Family Medicine 06/18/16 Magali Doty, Vasyl [address] [place] [address] Pharmacist Internal Medicine 08/15/22 Natalia Coates Layout TechnicianElectrical Sign Wirer Helper 07/21/24 documented as of this encounter
--- OUTSIDE RECORDS SUMMARY | 2024-12-15 18:13 | XMS_ITS | Clinical Summary ---
Author Organization [employer] Address [address] [facility] 7t [place] [address] Care Team Providers Care Distance Learning Program Coordinator Name Role Phone Name, Hong FOSS Primary Care Provider [phone] Magali Doty PharmD Unavailable [phone] Allergies Active Allergy Reactions Criticality Noted Date Comments Gluten Meal GI intolerance 10/15/2022 Losartan Rash,GI intolerance Low 06/18/2022 Other reaction(s): abdominal pain Penicillins Swelling 07/13/2023 Valsartan Rash,Diarrhea Low 06/18/2022 Other reaction(s): GI problems Medications hydrALAZINE (Apresoline) 100 MG tabletIndicatio ns:Essential hypertension Take 1 tablet (100 mg) by mouth 3 times daily. 90 tablet 11 06/19/19 23 Active Blood Pressure kit Use once a day 1 kit 06/19/19 23 Active Insulin Aspart 100 UNIT/ML solution INJECT [...] EVERY MORNING 90 tablet 06/16/19 24 Active tamsulosin (Flomax) 0.4 MG 24 hr capsule TAKE 1 CAPSULE BY MOUTH EVERY EVENING 90 capsule 08/13/19 24 Active calcitriol (Rocaltrol) 0.5 MCG capsule Take 0.5 mcg by mouth in the morning. 11/02/19 24 Active Baqsimi One Pack 3 MG/DOSE nasal powder USE 1 SPRAY (3MG) IN ONE NOSTRIL FOR A PATIENT WITH SEVERE HYPOGLYCEMIA WHO IS NOT RESPONSIVE AND UNABLE SELF-TREAT WITH GLUCOSE. AFTERWARDS TURN ON SIDE. MAY REPEAT IN 15MINUTES IF PATIENT DOES NOT RESPOND. 10/22/19 24 Active Acetone, Urine, Test (Ketone Test) stripIndication s:Diabetic ketoacidosis without coma associated with type 1 diabetes mellitus (HCC) Insert 1 each into the urethra if needed each day (abdominal pain). USE DIRECTED WHEN BLOOD SUGAR IS OVER 250 OR FOR NAUSEA AND VOMITING THREE TIMES DAILY 100 strip 3 12/11/19 24 Active ezetimibe (Zetia) 10 MG tabletIndicatio ns: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 (HCC),Type 1 diabetes mellitus with other specified complication (HCC) TAKE 1 TABLET BY MOUTH EVERY MORNING 90 tablet 1 01/26/20 24 Active sevelamer carbonate (Renvela) 800 MG tablet TAKE 1 TABLET BY MOUTH THREE TIMES DAILY IN THE MORNING, AT NOON, AND IN THE EVENING WITH MEALS 90 tablet 1 06/02/19 25 Active nortriptyline (Pamelor) 50 MG capsule TAKE 1 TABLET BY MOUTH AT BEDTIME 90 capsule 3 07/07/19 25 Active omeprazole (PriLOSEC) [address] capsuleIndicati ons:Hypertensio n, unspecified type TAKE 1 CAPSULE BY MOUTH EVERY MORNING 90 capsule 3 07/07/19 25 Active atorvastatin (Lipitor) 80 MG tabletIndicatio ns:Hypertension , unspecified type TAKE 1 TABLET BY MOUTH EVERY MORNING 90 tablet 1 08/03/19 25 Active NIFEdipine XL (Procardia XL) 30 MG 24 hr tablet Take 1 tablet (30 mg) by mouth Once per day. Do not crush, chew, or split. 30 tablet 11 08/24/19 25 2025 Active Viagra 50 MG tabletIndicatio ns:Type 1 diabetes mellitus with other specified complication (HCC) TAKE 1 TABLET 1 HOUR BEFORE SEXUAL RELATIONS ONCE DAILY NEEDED. 10 tablet 2 08/24/19 25 Active gabapentin (Neurontin) 100 MG capsule TAKE 2 CAPSULES BY MOUTH EVERY DAY AT BEDTIME 60 capsule 2 11/24/19 25 Active cloNIDine (Catapres) 0.1 MG tablet TAKE 1 TABLET BY MOUTH TWICE DAILY IN THE MORNING AND IN THE EVENING 60 tablet 1 11/24/19 25 Active hydrOXYzine pamoate (Vistaril) 25 MG capsule TAKE 1 CAPSULE BY MOUTH AT BEDTIME NEEDED ANXIETY FOR UP TO 10 DAYS 30 capsule 1 11/24/19 25 Active lidocaine (Xylocaine) 5 % ointment APPLY TOPICALLY TO THE AFFECTED AREA(S) EVERY DAY NEEDED FOR MILD PAIN 35.44 g 1 12/03/19 25 Active lidocaine (Xylocaine) 5 % ointment APPLY TOPICALLY NEEDED FOR MILD PAIN 35.44 g 1 08/10/19 25 2024 Discontinued gabapentin (Neurontin) 100 MG capsule Take 2 capsules (200 mg) by mouth at bedtime. 60 capsule 2 08/24/19 25 2024 Discontinued hydrOXYzine pamoate (Vistaril) 25 MG capsule TAKE 1 CAPSULE BY MOUTH AT BEDTIME NEEDED FOR ANXIETY FOR UP TO 10 DAYS 30 capsule 1 09/27/19 25 2024 Discontinued cloNIDine (Catapres) 0.1 MG tablet TAKE 1 TABLET BY MOUTH TWICE DAILY IN THE MORNING AND IN THE EVENING 60 tablet 1 09/27/19 25 2024 Discontinued Active Problems Patient Care Coordination No te Formatting of this note migh t be different from the original. C3/CM Mey Weeks RN Problem Noted Date Diagnosed Date ESRD on hemodialysis ([facility]) 12/11/2023 DKA (diabetic ketoacidosis) 12/11/2023 Assessment & [...] Depressive disorder 03/15/2022 History of heroin abuse ([facility]) 10/12/2020 Cough 06/21/2018 Drowsy 06/21/2018 Insomnia 11/16/2017 [...] after meals -continue to be followed by [facility] endocrinology, plan to get new CGM monitor, pt has one currently but is getting most updated one -continue with insulin pump, also managed by [facility] endocrinology -I will f/u with [facility] endocrinology to obtain recommendations for gastroparesis tx. Chronic low back pain 06/19/2016 Resolved Problems Problem Noted Date Diagnosed Date Resolved Date Stage 3 chronic kidney disease ([facility]) 03/15/2022 06/18/2022 Encounters Date Type Department Care Team Description 12/02/2024 Refill [facility] [address] [place] [address] Name, MD Hong 11/23/2024 Refill [facility] [address] [place] [address] NameHong MD 11/22/2024 Orders Only GENERIC EXTERNAL DATA DEPARTMENT Provider, Generic External Data 10/25/2024 Telephone [facility] [address] [place] [address] Liss Milton [place] NOV RECALLS 09/25/2024 Refill [facility] [address] [place] [address] Tina Jones MD 09/25/2024 Refill [facility] [address] [place], [place] [phone] Name, MD Hong from Last 3 Months Immunizations Immunization Administration [...] Description 01/17/2025 1:45 PM EST Office Visit [facility] [address] [facility] [place] [address] Name, MD Hong [address] [facility] [place] [address] Health Maintenance Due Date Last Done Comments HIV Screening 1984 Eye Exam 1994 Alcohol/Substance Use Screening 1996 Family Planning (PISQ) 09/28/1999 HPV Vaccines (1 - Male 3-dose series) 09/28/1999 Hepatitis C Screening 2002 Diabetes: Foot Exam 07/12/2024 07/13/2023, 07/13/2023, 07/13/2023, Additional history exists COVID-19 Vaccine ( season) 2024 01/20/2022, 02/06/2021, 06/13/2020, Additional history exists Influenza Vaccine (#1) 2024 , 01/14/2023, 01/06/2022, Additional history exists Diabetes: Hemoglobin A1C 12/20/202406/20/ 025, 12/11/2023, 11/11/2023, Additional history exists Lipid [...] once per day Blood Pressure No Magali Dtoy PharmD Blood Pressure < 140/90 Blood Pressure 124/74( 025 2:01 PM EDT) No Magali Doty PharmD Procedures Procedure Name Priority Date/Time Associated Diagnosis Comments GLUCOSE, WHOLE BLOOD Routine 11/22/2024 3:12 PM EDT POCT GLYCATED HEMOGLOBIN, TOTAL Routine [...] Whole Blood 196(H) 60 - 115 mg/dL [facility] Comment:METER #: [id number] Testing performed in the Endocrinology Department [address] , [address], [facility]. 11/22/2024 3:12 PM EDT 11/22/2024 3:18 PM EDT us Generic External Data Provider LAB BLOOD ORDERAB LES Final Result Performing Organization Address City/[facility]/ZIP Co de Phone Number [facility] [address] [place] [address] [phone] * POCT HGB A1C (06/20/2024 3:29 PM EDT) Hemoglobin A1C 5.2 4.0 - 6.0 % QC Media Lot # [id number] Lot# Expiration Date 11042 Blood 06/20/2024 3:29 PM EDT Hong Rodríguez MD POINT OF CARE TEST ENTER/EDIT OR DERABLES Final Result * (ABNORMAL) Lipid Panel, Standard (01/08/2024 8:02 AM EST) Triglycerides 127 <150 mg/dL [facility] Comment:Desirable Triglyceri de: less than 150 mg/dLBorderline High Triglyceride 150-199 mg/dLHigh Triglyceride: 200-499 mg/dLVery High Triglyceride: greater than or equal to 5OO mg/dL Cholesterol 136 <200 mg/dL [facility] Comment:Desirable Cholestero l: less than 200 mg/dLBorderline High Cholesterol: 200-239 mg/dLHigh Cholesterol: greater than 239 mg/dL LDL Cholesterol Calculated 71 <100 mg/dL [facility] Comment:Desirable LDL: less than 100 mg/dLNear Optimal/Above Optimal LDL: 110- 129 mg/dLBorderline High LDL: 130-159 mg/dLHigh LDL: 160-189 mg/dLVery High LDL: greater than or equal to 190 mg/dL HDL Cholesterol 40(L) >40 mg/dL [facility] Comment:Desirable HDL: great er than 40 mg/dL Note: This HDL assay may give artificially low results in patients with liver disease. Blood Venous blood specimen / Unknown 01/08/2024 8:02 AM EST 01/08/2024 9:14 AM EST us Tammy Yates MD LAB BLOOD ORDERABLES Final Res ult [facility] [address] [place] [address] [phone] from Last 3 Months or Most Recently Relevant to Health Maintenance Insurance [address] [place], [place] [address] Care Teams Distance Learning Program Coordinator Relationship Specialty Start Date End Date Name, MD Hong [address] [place] [address] PCP - General Family Medicine 06/18/16 Magali Doty PharmD [address] [place] [address] Pharmacist Internal Medicine 08/15/22 Natalia Coates Welding ManagerPug Mill Operator Helper 07/21/24
--- OUTSIDE RECORDS SUMMARY | 2024-12-15 18:14 | XMS_ITS | Encounter Summary ---
Author Organization [employer] Address [address] [facility] 7t [place] [address] Care Team Providers Care Waiter/Waitress Counter Name Role Phone Name, Hong FOSS Primary Care Provider [phone] Magali Doty PharmD Unavailable [phone] Reason for Visit * Reason Comments Med Refill Encounter Details Date Type Department Care Team ([facility] st Contact Info) Description 09/13/2023 Refill [facility] [address] [place], [place] [phone] Name, MD Hong [address] [place] [address] Type 1 diabetes mellitus with other specified [...] Description 01/17/2025 1:45 PM EST Office Visit [facility] [address] [place] [phone] Name, MD Hong [address] [place] [phone] documented as of this encounter Goals Goal Patient Goal Type Associated Problems Recent Progress Patient-Stated? Author Record your blood pressure once per day Blood Pressure No Magali Doty PharmD Blood Pressure < 140/90 Blood Pressure 124/74( 025 2:01 PM EDT) No Magali Doty PharmD documented as of this encounter Visit Diagnoses Diagnosis Type 1 diabetes mellitus with other specified complication (HCC) documented in this encounter Additional Health Concerns Assessment Noted Time PHQ-9 Depression Total Score: 0 04/14/19 24 1:09 PM EST documented as of this encounter Care Teams Waiter/Waitress Counter Relationship Specialty Start Date End Date Name, MD Hong [address] [place] [phone] PCP - General Family Medicine 06/18/16 Magali Doty PharmD [address] [place] [phone] Pharmacist Internal Medicine 08/15/22 Natalia Coates Fourdrinier TenderSalon Shampoo Assistant 07/21/24 documented as of this encounter
--- OUTSIDE RECORDS SUMMARY | 2024-12-15 18:14 | XMS_ITS | Encounter Summary ---
Author Organization [employer] Address [address] [facility] 7[address] [place] [address] Care Team Providers Care Interior Design Professor Name Role Phone Name, Hogn FOSS Primary Care Provider Magali Doty PharmD Unavailable [phone] Reason for Visit * Reason Onset Date Comments UNIT ASSISTANT Services 09/08/2023 Encounter Details Date Type Department Care Team ([facility] st Contact Info) Description 09/08/2023 Telephone [facility] [address] [place] [address] Name, MD Hong [address] [place] [address] UNIT ASSISTANT Services Social History Tobacco Use Types Packs/Day [...] patricia to inform that pt. Or care rep has to call for UNIT ASSISTANT service ( List is below ) , they will evaluate pt. For UNIT ASSISTANT service and will send documents to PCP for sign. No answer. LVM to call back on [phone]. [facility] [address] [place] [address] [place] [id number] [facility] (Not accepted by [facility]) [address] [address] * Telephone Encounter - Shantal Chavarria - 09/08/2023 1:17 PM EDT Tc from [facility] stating she received a phone call from [facility],. * Telephone Encounter - Colton Herrera RN - 09/08/2023 1:16 PM EDT T/C to [phone] through ScriptPad id - [id number] for below message , No answer.voice mailbox is full, not able to LVM. * Telephone Encounter - Solomon Trevino - 09/08/2023 12:17 PM EDT Tc from the patients spouse requesting UNIT ASSISTANT services for the patient states the patient should not be alone due to conditions documented in this encounter Plan of Treatment Upcoming Encounters Date Type Department Care Team (Late st Contact Info) Description 01/17/2025 1:45 PM EST Office Visit [facility] [address] [place] [phone] NameHong MD [address] [place] [address] documented as of this encounter Goals Goal [...] documented as of this encounter Care Teams Interior Design Professor Relationship Specialty Start Date End Date NameHong MD [address] [place] [address] PCP - General Family Medicine 06/18/16 Puia, Magali, PharmD [address] [place] [address] [phone] Pharmacist Internal Medicine 08/15/22 Natalia Coates Machine StriperDial Refinisher 07/21/24 documented as of this encounter
--- OUTSIDE RECORDS SUMMARY | 2024-12-15 18:14 | XMS_ITS | Encounter Summary ---
Author Organization [facility] Address [address] [place] [address] Care Team Providers Care High School Math Tutor Name Role Phone Physician, Pcp Unknown Primary Care Provider Gwen vailable Encounter Details Date Type Department Care Team (Latest Contact Info) Description 07/15/2024 Lab Requisition [facility] [address] [facility] [place] [address] Demetra Cartwright NP [address] [place] [address] Type 1 diabetes mellitus with hyperglycemia (CMS/HCC V24, CMS/[facility] V28) Social History Tobacco Use Types Packs/Day [...] 1 diabetes mellitus with hyperglycemia (CMS/HCC V24, CMS/[facility] V28) documented in this encounter Results * Lavender tube (07/15/2024 6:20 AM EDT) Extra Tube Hold for add-ons. 07/15/2024 9:01 AM EDT [facility] ([email or web address] Comment:Auto resulted. Blood Venous blood specimen / Unknown 07/15/2024 6:20 AM EDT 07/15/2024 7:48 AM EDT Demetra Cartwright NP LAB BLOOD ORDERABLES Final Resu lt [facility] ([facility] [[email or web address] H[facility] [address] [place] [address], documented in this encounter Visit Diagnoses Diagnosis Type 1 diabetes mellitus with hyperglycemia (CMS/HCC V24, CMS/HCC V28) documented in this encounter Care Teams High School Math Tutor Relationship Specialty Start Date End Date Physician, Pcp Unknown PCP - General 07/15/24 documented as of this encounter
== END 2024-12-15 14:44 | disposition home or self-care (01) ==
LOC: HO.ENCR 14:22
PROVIDERS: Visit Provider Registered Nurse Diabetes Educator
DX: E10.65 Type 1 diabetes mellitus with hyperglycemia (principal)

== ENCOUNTER → 2024-12-15 14:21 | Outpatient (BNVA) | payer MEDICAID, SELFPAY | PROVIDERS: Visit Provider Registered Nurse Diabetes Educator | DX: E10.65 Type 1 diabetes mellitus with hyperglycemia (principal) | CPT/HCPCS: 99211 ==

== ENCOUNTER → 2024-12-24 23:59 | Outpatient (BNV) | payer MEDICAID, SELFPAY | PROVIDERS: Visit Provider Internal Medicine Nephrology | DX: N18.6 End stage renal disease (principal) | CPT/HCPCS: 90961 ==

== ENCOUNTER → 2025-01-23 23:59 | Outpatient (BNV) | payer MEDICAID, SELFPAY | PROVIDERS: Visit Provider Internal Medicine Nephrology | DX: N18.6 End stage renal disease (principal) | CPT/HCPCS: 90961 ==